=== PATIENT | female | born 1975 | race Caucasian/White ===

== ENCOUNTER 2023-03-05 20:23 | Emergency (ER) | payer MEDICARE, MEDICAID, SELFPAY ==
[2023-03-05 20:27] VITALS: BP 130/78; PULSE 96; RESP 18; TEMP 36.8; O2SAT 96
--- NOTE | 2023-03-05 20:43 | ED.LOWEXI1 ---
HPI - Extremity Injury (Lower) General Chief Complaint: Extremity Injury, Lower Stated Complaint: LOWER EXTREMITY Time Seen by Provider: 03/05/23 20:28 History of Present Illness HPI Narrative: the patient is coming with left foot pain that increased over the last one week, she does have a history of the fracture and surgery was done a few months ago, the patient noted there was some redness that developed over the last week as well she denies any fever or chills nausea or vomiting Review of systems otherwise negative Related Data Previous Rx's Medication Instructions Recorded meloxicam 15 mg tablet 15 mg PO DAILY PRN pain #10 tabs 03/05/23 sulfamethoxazole 800 1 tab PO DAILY 7 days #7 tabs 03/05/23 mg-trimethoprim 160 mg tablet (Bactrim DS) Allergies Allergy/AdvReac Type Severity Reaction Status Date / Time vancomycin Allergy Severe Verified 03/05/23 20:26 bacitracin Allergy Mild Verified 03/05/23 20:26 lamotrigine [From Lamictal] AdvReac Severe Verified 03/05/23 20:26 Review of Systems ROS Status of ROS 10 or more systems reviewed and unremarkable except as noted in history and below Exam Narrative Exam Narrative: Nurses notes and vital signs reviewed and patient is not hypoxic. General: Well-appearing and in no apparent distress. Skin: Warm, dry, no pallor noted. No rash. Head: Normocephalic, atraumatic. Neck: Supple, non-tender. Eye: Pupils are equal, round and EOMI. No scleral icterus. Ears, Nose, Mouth, and Throat: TM are clear, no nasal mucosal hypertrophy. Oral mucosa is moist, no posterior oropharynx erythema, uvula is mid-line Cardiovascular: Regular Rate and Rhythm without murmur, gallop or rub. Respiratory: No accessory muscle use or respiratory distress. Lungs are clear to auscultation, no wheezing, rales or rhonchi Chest Wall: no tenderness Back: No midline thoracic or lumbar vertebral tenderness. No CVA tenderness Musculoskeletal: normal ROM, no calf or popliteal tenderness, there is edema and swelling of the left foot compared to the right and the swelling is moderate there is redness of the scar of the previous surgery that is linear to the 1st metatarsal There was no drainage or any fluctuation and the patient had no open wounds and normal capillary refill with no vascular injury GI: Abdomen is soft, non-distended. Normal bowel sounds. No masses appreciated. No tenderness to palpation. No rebound, guarding, or rigidity noted. Neurological: A&O x4. No cranial nerve dysfunction observed. No truncal ataxia. Moves all extremities. Sensation intact. Psychiatric: Cooperative and interactive. Normal mood and affect. MDM - Extremity Injury (Lower) MDM Narrative Medical decision making narrative: was noted that the patient initially was upset and yelling because she didn't want to come to the Emergency Room in our facility The patient had CBC that showed no significant leukocytosis and a chemistry was within normal with no elevated ESR CT of the lower extremity was done to rule out any abscess or infection as showing possible cellulitis with no fluid collection at the foot level The patient was started on Bactrim in addition to Mobic for pain . Opiate intake OARRS was reviewed Patient referred to podiatry The patient is to followup with primary care physician in next 2-3 days or to return to the emergency department should any of the signs or symptoms worsen or new symptoms develop. The patient agrees with the following Diagnosis and Treatment plan and the patient will be discharged home. Discharge Plan Discharge Chief Complaint: Extremity Injury, Lower Clinical Impression: Cellulitis of foot Patient Disposition: Home, Self-Care Time of Disposition Decision: 22:37 Condition: Good Mode of Transportation: Private Vehicle Prescriptions / Home Meds: New sulfamethoxazole-trimethoprim [Bactrim DS] 800-160 mg tablet 1 tab PO DAILY 7 Days Qty: 7 0RF meloxicam 15 mg tablet 15 mg PO DAILY PRN (Reason: pain ) Qty: 10 0RF Instructions: Cellulitis (ED) Stand Alone Forms: Portal Instructions Referrals: BRAYAN GUERRA [Primary Care Provider] - 1 week Follow Up Appointments: Dr [facility] Podiatry Discharge Date/Time: 03/05/23 23:42
--- NOTE | 2023-03-05 20:49 | PC.NURSE ---
patient began to get agitated and aggressive stating if Dr. burrell was here she was going to leave. SHe begant to raise her voice about a previous dx that dr. burrell gave her after a chest xray. I stated we request you follow up with your physician after ER visits she then began to yell about if Dr. carbajal is here then she is leaving. I explained to patient neither of those physicians are here, We need to get information on your ankle and fall. Patient Stated this is just a [facility] hospital, just admit it I said [place] dont have a lot of specialist. PAtient began yelling i dont know why they brought me here . I told patient i am just here to help her, lets refocus on your injury. Patient began yelling that she wasnt going to be treated this way and requested my name. Gave patient my name and told her I was not here to be screamed at. I walked out of thee room and let the other staff know that someone else needed to triage the patient. Patient could be heard screaming in the cherry I CAN HERE YOU CARLI, GIVE ME A PHONE, IM LEAVING!! physician then went in to see patient.
--- NOTE | 2023-03-05 21:10 | CT_ITS ---
The [place] [id number] Patient Name: NATHANIEL MARCIAL MRN: [id number] date: 1975 Sex: F Assigned Patient Location: ED.MAIN Current Patient Location: ED.MAIN Accession/Order Number: [id number] Exam Date: 03/05/2023 21:25 Report Date: 03/05/2023 22:25 At the request of: ADDISON BRYANT Procedure: CT foot LT wo con EXAM: CT foot LT wo con HISTORY: swelling abscess COMPARISON: 02/22/2023 TECHNIQUE: Axial sections were obtained followed by sagittal and coronal reconstructions. FINDINGS: Again, there are findings associated with previous ORIF of distal tibia and distal fibular fractures. 2 screws traverse the medial malleolus fracture. Medullary bone is seen across the fracture line, with anterior cortex discontinuity remaining visible. A lateral plate and multiple screws stabilize the distal fibula fracture. Again, medullary bone crosses the fracture with partial discontinuity cortex anteriorly. There also is a healing posterior tibial malleolus fracture. Medullary bone crosses the medial aspect of the fracture, with discontinuity remaining visible laterally. Ankle mortise relationships are intact. There is diffuse osteopenia of bones of the ankle and foot. Soft tissue swelling is seen about the ankle and dorsum of the foot. No delineated fluid collection is identified. IMPRESSION: Healing, almost healed trimalleolar fracture, status post ORIF of the medial malleolus and distal fibula components. Soft tissue swelling about the ankle and dorsum of the foot compatible with cellulitis. No defined abscess is appreciated. Electronically authenticated by: Brice BAEZA Date: 03/05/2023 22:25
[2023-03-05] MEDS: KETOROLAC TROMETHAMINE 30 MG/ML VIAL 15 MG IVP (21:35)
[2023-03-05 21:56] LABS: Basophils Absolute Auto 0.1 10^3/uL (0.0-0.1); Basophils Percent Auto 0.6 % (0.2-2.0); Eosinophils Absolute Auto 0.2 10^3/uL (0.0-0.7); Hemoglobin 15.3 g/dL (12.0-16.0); Immature Granulocytes Abs Auto 0.04 10^3/uL (0.00-0.03); Immature Granulocytes Pct Auto 0.3 % (0.0-0.5); Lymphocytes Absolute Auto 3.8 10^3/uL (1.2-3.8); Lymphocytes Percent Auto 33.3 % (20.5-60.0); Mean Corpuscular HGB Conc 34.8 g/dL (29.9-35.2); Mean Corpuscular Hemoglobin 38.5 pg (26.7-34.0); Mean Corpuscular Volume 110.8 fL (81.0-99.0); Mean Platelet Volume 8.3 fL (9.5-13.5); Monocytes Absolute Auto 0.9 10^3/uL (0.3-0.8); Monocytes Percent Auto 7.9 % (1.7-12.0); Neutrophils Absolute Auto 6.4 10^3/uL (1.4-6.5); Neutrophils Percent Auto 55.9 % (43.0-75.0); Platelet Count 352 10^3/uL (150-450); Red Blood Count 3.97 10^6/uL (4.20-5.40); Red Cell Distribution Width 15.3 % (11.0-15.0); White Blood Count 11.5 10^3/uL (4.0-11.0)
[2023-03-05 22:01] LABS: Erythrocyte Sedimentation Rate 16 mm/hr (<=20)
--- NOTE | 2023-03-05 22:06 | PC.NURSE ---
Pt presents to ER for left ankle pain via EMS with an IV established in the left arm This is not a new injury Pt has had a broken ankle with surgery and hardware present Tonight pt fell off of her scooter and is fearful that she rebroke the ankle Upon arrival pt being triaged by other nurse, pt began yelling at nurse, nurse exited the room Dr. Ledbetter made herself present to the room and spoke with pt, unaware at that time what pt wanted treatment perez This nurse entered room to assist pt with using a bedpan After having a long conversation with the pt, this nurse was able to pinpoint what we needed to do for the pt Pt's left foot/ankle is very swollen, there appears to be an abrasion type rash on the top part of the foot Pt states this is not new Pt states she feels everyone is misdiagnosing her This nurse explained the care plan to the pt, pt agreed calm and cooperative Pt later needed to use the restroom again, a bedside commode was brought in and the pt was able to transfer to and from the bedside Pt denies further needs at this time
[2023-03-05 22:07] LABS: Alanine Aminotransferase 22 U/L (14-59); Albumin Globulin Ratio 0.8; Albumin Level 3.8 g/dL (3.4-5.0); Alkaline Phosphatase 144 U/L (46-116); Anion Gap 11.4; Aspartate Amino Transferase 25 U/L (15-37); BUN Creatinine Ratio 9.6; Bilirubin Total 0.4 mg/dL (0.2-1.0); Carbon Dioxide 27.9 mmol/L (21.0-32.0); Chloride 101 mmol/L (98-107); Estimated GFR (African America >60 (>=60); Estimated GFR (Non-African Ame >60 (>=60); Globulin 4.5 g/dL; Glucose 102 mg/dL (74-106); Potassium 4.3 mmol/L (3.5-5.1); Sodium 136 mmol/L (136-145); Total Protein 8.3 g/dL (6.4-8.2)
[2023-03-05 22:21] LABS: C Reactive Protein <0.2 mg/dL (<=1.0)
[2023-03-05] MEDS: SULFAMETHOXAZOLE/TRIMETHOPRIM 800-160 MG TABLET 1 TAB PO (23:22)
== END 2023-03-05 23:42 | disposition home or self-care (01) ==
PROVIDERS: Emergency Provider Emergency Medicine; PCP Student in an Organized Health Care Education/Training Program
DX: L03.116 Cellulitis of left lower limb (principal)
CPT/HCPCS: 36415; 73700; 80053; 85025; 85652; 86140; 96374; 99284

== ENCOUNTER 2023-05-02 18:05 | Outpatient (OUT) | payer MEDICARE, MEDICAID, SELFPAY ==
--- NOTE | 2023-05-02 | XR_ITS ---
The [address] [address] Patient Name: NATHANIEL MARCIAL MRN: [id number] date: 1975 Sex: F Assigned Patient Location: [facility] Current Patient Location: [facility] Accession/Order Number: [id number] Exam Date: 05/02/2023 18:30 Report Date: 05/02/2023 19:01 At the request of: BRAYAN GUERRA Procedure: XR foot LT min 3V EXAM: XR foot LT min 3V HISTORY: left foot pain, M79.672 history of trauma COMPARISON: None. TECHNIQUE: 3 views FINDINGS: Osteopenia generally is noted. Previous plate and screw fixation of a distal fibula fracture. Previous fixation of a medial malleolus fracture with 2 screws. Bones of the foot are intact. There is a mild hallux valgus deformity. Joint spaces are satisfactorily maintained. Forefoot soft tissue swelling is noted. XR/XR foot LT min 3V IMPRESSION: Previous ORIF of distal tibia and fibular fractures. No evidence for acute fracture or dislocation of the foot. Electronically authenticated by: Brice BAEZA Date: 05/02/2023 19:01
== END 2023-05-02 18:06 | disposition home or self-care (01) ==
PROVIDERS: PCP Student in an Organized Health Care Education/Training Program; Visit Provider Student in an Organized Health Care Education/Training Program
DX: M79.672 Pain in left foot (principal); S99.922A Unspecified injury of left foot, initial encounter; Z96.7 Presence of other bone and tendon implants; Z98.890 Other specified postprocedural states; X58.XXXA Exposure to other specified factors, initial encounter; Z87.81 Personal history of (healed) traumatic fracture
CPT/HCPCS: 73630

== ENCOUNTER 2023-05-05 12:58 | Outpatient (OUT) | payer MEDICARE, MEDICAID, SELFPAY ==
--- NOTE | 2023-05-05 13:54 | CA_ITS ---
Patient: NATHANIEL MARCIAL Exam Date: 05/05/2023 : 1975 Gender:F Ordering : BETH GUEVARA Admission #: [id number] Family : DR. BRAYAN GUERRA M.D. Order #: [id number] CLICK HERE TO VIEW EXAM ECHOCARDIOGRAM REPORT PROCEDURE: CA ECHO DOPPLER COMPLETE INDICATIONS: Chest pain, dyspnea on exertion COMPARISON: None. DESCRIPTION: COMPLETE ECHOCARDIOGRAM Real-time transthoracic echocardiography with 2D, M-mode, spectral and color flow Doppler performed. QUALITY: Technical quality was good. LEFT VENTRICLE: Normal chamber size. Normal left ventricular wall thickness. Systolic function is normal. LV EF: Normal left ventricular ejection fraction, (>55%). DIASTOLIC: Normal diastolic function. ATRIAL SEPTUM: Visually appears intact. LEFT ATRIUM: Normal chamber size. RIGHT ATRIUM: Normal chamber size. RIGHT VENTRICLE: Normal chamber size. Normal right ventricular systolic function. TRICUSPID VALVE: Normal mobility and thickness. No stenosis with mild regurgitation. Doppler studies reveal moderately (45-60) elevated right sided pressures. RVSP 55 mmHg MITRAL VALVE: Normal mobility and thickness. No evidence of mitral valve stenosis. There is no mitral annular calcification. No mitral regurgitation. AORTIC VALVE: Normal trileaflet appearance. No visible sclerosis. Normal leaflet mobility. No evidence of aortic valve stenosis. No aortic regurgitation. AORTIC ROOT: Normal diameter and appearance. PULMONIC VALVE: Normal thickness and mobility. No stenosis. No regurgitation. PERICARDIUM: No evidence of pericardial effusion. IVC: IVC is dilated (2.3 cm) with no collapse. PLEURA: CONCLUSION: 1. Normal ventricular systolic function. LVEF is 55 to 60%. 2. Mild tricuspid regurgitation. 3. Moderately elevated right-sided pressures. RVSP is 55 mmHg. Adult Echocardiography Procedure Report Left Ventricle LVEDD (3.7 - 5.6 cm): 4.23 cm LVESD (2.2 - 4.0 cm): 2.50 cm LVIVS thickness (0.6 - 1.2 cm): 0.82 cm LVPW thickness (0.5 - 1.0 cm): 0.81 cm e': 0.11 m/s E - e': 8.03 LVOT Max Gradient: 2.35 mm[Hg] LVOT Area (cm2): 0.77 m/s Peak Velocity (LVOT): 0.77 m/s Mean Velocity (LVOT): 0.54 m/s LVOT Diameter 1.95 cm Left Atrium LA Volume Index (2D A2C): 35.32 ml/m2 Left Atrium Systolic Dimension: 3.11 cm Mitral Valve MV E to A Ratio: 1.26 Mitral Valve A-Wave Peak Velocity: 0.72 m/s Mitral Valve E-Wave Peak Velocity: 0.91 m/s Right Ventricle Aorta AO Root Diam: 2.89 cm Ascending Ao Diam: 2.28 cm Aortic Valve AoV Area (Peak Ryan): 2.02 cm2, 2.02 cm2 Peak Velocity(Antegrade Flow): 1.14 m/s Peak Gradient(Antegrade Flow): 5.18 mm[Hg] Tricuspid Valve Peak Velocity (Regurgitant Flow): 3.18 m/s Pulmonic Valve Peak Velocity: 1.03 m/s Peak Gradient: 3.59 mm[Hg], 4.94 mm[Hg] Right Atrium Right Atrium Systolic Pressure: 47.28 ml, 47.28 ml Dictated by: Ranjit Rose M.D. on 05/05/2023 at 18:35 Approved by: Ranjit Rose M.D. on 05/05/2023 at 18:38
== END 2023-05-05 12:59 | disposition home or self-care (01) ==
LOC: CARD 12:58
PROVIDERS: PCP Student in an Organized Health Care Education/Training Program; Visit Provider Internal Medicine Cardiovascular Disease
DX: R07.9 Chest pain, unspecified (principal); R06.09 Other forms of dyspnea; I07.1 Rheumatic tricuspid insufficiency
CPT/HCPCS: 93306

== ENCOUNTER 2023-05-17 14:46 | Outpatient (OUT) | payer MEDICARE, MEDICAID, SELFPAY ==
--- NOTE | 2023-05-17 | XR_ITS ---
The [address] [address] Patient Name: NATHANIEL MARCIAL MRN: [id number] date: 1975 Sex: F Assigned Patient Location: [facility] Current Patient Location: [facility] Accession/Order Number: [id number] Exam Date: 05/17/2023 15:30 Report Date: 05/17/2023 15:41 At the request of: FRANCIS YOUNG Procedure: XR ankle LT min 3V PROCEDURE: XR ankle LT min 3V DATE: 05/17/2023 2:30 PM CDT COMPARISONS: Comparison is made to left foot CT includes the ankle done on 03/05/2023 CLINICAL INDICATION: IMAGINF FOR PODIATRY FINDINGS: There is prominent bone demineralization.. There is fixation plate lateral distal fibula, fixed by screws. There is also an oblique screw of the distal fibula. There are 2 oblique screws of the medial malleolus. There is some old deformity consistent with old fractures. No evidence of acute fractures. There are the ankle mortise is intact. XR/XR ankle LT min 3V IMPRESSION: Left ankle radiographs show no evidence of acute abnormalities. Bone demineralization Nearly completely healed trimalleolar fracture Status post open reduction internal fixation of the ankle, stable Soft tissue swelling noted about the ankle similar to previous CT. Electronically authenticated by: CHECO HERRERA Date: 05/17/2023 15:41
== END 2023-05-17 14:47 | disposition home or self-care (01) ==
LOC: RAD 14:49
PROVIDERS: PCP Student in an Organized Health Care Education/Training Program; Visit Provider Podiatrist Foot & Ankle Surgery
DX: S82.852S Displaced trimalleolar fracture of left lower leg, sequela (principal)
CPT/HCPCS: 73610

== ENCOUNTER 2023-05-24 12:49 | Outpatient (RCR) | payer MEDICARE, MEDICAID, SELFPAY | END 2023-06-28 16:17 | disposition home or self-care (01) | LOC: PT 12:49 | PROVIDERS: PCP Student in an Organized Health Care Education/Training Program; Visit Provider Podiatrist Foot & Ankle Surgery | DX: S82.852S Displaced trimalleolar fracture of left lower leg, sequela (principal); R26.89 Other abnormalities of gait and mobility; R26.9 Unspecified abnormalities of gait and mobility; R53.1 Weakness | CPT/HCPCS: 97110; 97116; 97161; 97530 ==

== ENCOUNTER 2023-05-25 08:22 | Outpatient (OUT) | payer MEDICARE, MEDICAID, SELFPAY ==
--- NOTE | 2023-05-25 | PCN_ITS ---
CARDIAC STRESS TEST Requesting Physician:? Dr. Medina Procedure Date:? 05/25/2023 PERFORMING PHYSICIAN:? Rudy Yaets M.D. INDICATION:? Chest pain, dyspnea on exertion. STRESS TEST PROTOCOL:? Lexiscan myocardial perfusion imaging. Resting heart rate:? 88 Max heart rate:? 100 Resting blood pressure:? 134/86 Maximal blood pressure:? 134/86 CONCLUSIONS:? 1.? No definite ECG changes post Lexiscan infusion meeting the criteria for ischemia. 2.? Please refer to separately interpreted and reported nuclear myocardial perfusion imaging for perfusion report. 3.? Clinical correlation recommended. MTDD
--- NOTE | 2023-05-25 07:50 | NM_ITS ---
Patient: NATHANIEL MARCIAL Exam Date: 05/25/2023 : 1975 Gender:F Ordering : BETH GUEVARA Admission #: [id number] Family : DR. Ej SchultzPClaude Order #: [id number] CLICK HERE TO VIEW EXAM RADIOLOGY REPORT PROCEDURE: NM JULIO C PERF SPECT REST STR COMPARISON: None. INDICATIONS: CHEST PAIN, DYSPNEA ON EXERTION TECHNIQUE: Exam Description: Stress/Rest one day protocol gated SPECT Rest Imagin.3 mCi Tc-99m Cardiolite IV on 05/25/2023 Stress Imaging 30.9 mCi Tc-99m Cardiolite IV on 05/25/2023 Exercise Protocol: 0.4 mg Lexiscan given IV Heart Rate (bpm): Rest: 88 Max: 100 PMHR: 58 Blood Pressure: Rest: 134/86 Max: 134/86 Symptoms: Rest and peak stress ECG findings were normal and the exercise portion of the study was normal per attending physician Dr. Guevara . For more details please see separate cardiac stress test report. FINDINGS: QUALITY OF STUDY: Good. PERFUSION DEFECT: None. LOCATION: N/A SIZE: N/A. SEVERITY: N/A. TYPE: N/A. WALL MOTION: Normal. LV SIZE: Normal. 75 mL. TID / TCD: None; 1.0 LVEF: Normal. Calculated EF 75%. SUMMARY: Myocardial perfusion imaging study is NORMAL. CONCLUSION: 1. No reversible ischemia 2. Normal exercise test Dictated by: Lucius Domingo MD on 05/26/2023 at 13:47 Approved by: Lucius Domingo MD on 05/26/2023 at 14:07
[2023-05-25] MEDS: REGADENOSON 0.4 MG/5 ML SYRINGE IV (09:47)
== END 2023-05-25 08:23 | disposition home or self-care (01) ==
LOC: NM 08:22
PROVIDERS: PCP Student in an Organized Health Care Education/Training Program; Visit Provider Internal Medicine Cardiovascular Disease
DX: R07.9 Chest pain, unspecified (principal); R06.09 Other forms of dyspnea
CPT/HCPCS: 78452; 93017; A9500; J2785

== ENCOUNTER 2023-06-07 09:51 | Outpatient (OUT) | payer MEDICARE, MEDICAID, SELFPAY ==
--- NOTE | 2023-06-07 | XR_ITS ---
The [address] [address] Patient Name: NATHANIEL MARCIAL MRN: [id number] date: 1975 Sex: F Assigned Patient Location: [facility] Current Patient Location: [facility] Accession/Order Number: [id number] Exam Date: 06/07/2023 10:15 Report Date: 06/07/2023 10:55 At the request of: FRANCIS YOUNG Procedure: XR foot LT min 3V PROCEDURE: XR ankle LT min 3V, XR foot LT min 3V HISTORY: LEFT ANKLE AND FOOT PAIN COMPARISON: XR left ankle 05/17/2023 FINDINGS: BONES:Prior mechanical repair of medial lateral malleolus without evidence of hardware fracture loosening. Healing of prior fractures. Moderate osteopenia throughout the foot and ankle. SOFT TISSUES:Mild soft tissue swelling surrounding the ankle. EFFUSION:None visible. OTHER: Negative. XR/XR foot LT min 3V IMPRESSION: 1. Stable surgical changes without is of hardware failure or change in alignment. 2. No acute bone abnormality or significant degenerative joint disease. 3. Moderate osteopenia throughout the foot and ankle; greater than expected. Electronically authenticated by: WILIAN CONTRERAS Date: 06/07/2023 10:55
--- NOTE | 2023-06-07 | XR_ITS ---
The [address] [address] Patient Name: NATHANIEL MARCIAL MRN: [id number] date: 1975 Sex: F Assigned Patient Location: [facility] Current Patient Location: [facility] Accession/Order Number: [id number] Exam Date: 06/07/2023 10:15 Report Date: 06/07/2023 10:55 At the request of: FRANCIS YOUNG Procedure: XR ankle LT min 3V PROCEDURE: XR ankle LT min 3V, XR foot LT min 3V HISTORY: LEFT ANKLE AND FOOT PAIN COMPARISON: XR left ankle 05/17/2023 FINDINGS: BONES:Prior mechanical repair of medial lateral malleolus without evidence of hardware fracture loosening. Healing of prior fractures. Moderate osteopenia throughout the foot and ankle. SOFT TISSUES:Mild soft tissue swelling surrounding the ankle. EFFUSION:None visible. OTHER: Negative. XR/XR ankle LT min 3V IMPRESSION: 1. Stable surgical changes without is of hardware failure or change in alignment. 2. No acute bone abnormality or significant degenerative joint disease. 3. Moderate osteopenia throughout the foot and ankle; greater than expected. Electronically authenticated by: WILIAN CONTRERAS Date: 06/07/2023 10:55
== END 2023-06-07 09:52 | disposition home or self-care (01) ==
LOC: RAD 09:52
PROVIDERS: PCP Student in an Organized Health Care Education/Training Program; Visit Provider Podiatrist Foot & Ankle Surgery
DX: S82.852A Displaced trimalleolar fracture of left lower leg, initial encounter for closed fracture (principal); M79.672 Pain in left foot
CPT/HCPCS: 73610; 73630

== ENCOUNTER 2023-07-19 13:01 | Outpatient (OUT) | payer MEDICARE, MEDICAID, SELFPAY ==
--- NOTE | 2023-07-19 | XR_ITS ---
The [address] [address] Patient Name: NATHANIEL MARCIAL MRN: [id number] date: 1975 Sex: F Assigned Patient Location: [facility] Current Patient Location: Accession/Order Number: [id number] Exam Date: 07/19/2023 13:25 Report Date: 07/20/2023 14:54 At the request of: FRANCIS YOUNG Procedure: XR ankle LT min 3V PROCEDURE: XR ankle LT min 3V HISTORY: LEFT ANKLE PAIN COMPARISON: XR ankle left 06/07/2023 FINDINGS: BONES:Prior mechanical repair of medial lateral malleolus without evidence of hardware fracture loosening. No bone fracture dislocation. No significant joint space narrowing. Osteopenia, likely from decreased use. SOFT TISSUES:Mild soft tissue swelling. EFFUSION:None visible. OTHER: Negative. XR/XR ankle LT min 3V IMPRESSION: 1. Stable surgical changes without evidence of hardware failure or change in alignment. Electronically authenticated by: WILIAN CONTRERAS Date: 07/20/2023 14:54
== END 2023-07-19 13:02 | disposition home or self-care (01) ==
LOC: RAD 13:01
PROVIDERS: PCP Student in an Organized Health Care Education/Training Program; Visit Provider Podiatrist Foot & Ankle Surgery
DX: S82.852S Displaced trimalleolar fracture of left lower leg, sequela (principal); Z96.9 Presence of functional implant, unspecified
CPT/HCPCS: 73610

== ENCOUNTER 2023-07-24 14:35 | Outpatient (OUT) | payer MEDICARE, MEDICAID, SELFPAY ==
--- NOTE | 2023-07-24 14:42 | CT_ITS ---
The [address] [address] Patient Name: NATHANIEL MARCIAL MRN: [id number] date: 1975 Sex: F Assigned Patient Location: CT Current Patient Location: CT Accession/Order Number: [id number] Exam Date: 07/24/2023 14:48 Report Date: 07/24/2023 16:46 At the request of: FRANCIS YOUNG Procedure: CT ankle LT wo con CT scan left ankle 07/24/2023. HISTORY: The patient reportedly suffered a fracture of the left ankle in October 2022. Evaluate for fracture healing. COMPARISON: CT scan left foot and ankle 03/05/2023 and radiographs left ankle 07/19/2023. TECHNIQUE: Multiple contiguous axial CT images of the left ankle were obtained without contrast. Sagittal and coronal reformatted images were made. Dose reduction techniques were achieved by using automated exposure control and/or adjustment of mA and/or kV according to patient size and/or use of iterative reconstruction technique. FINDINGS: The bones again appear osteoporotic. There is a moderate-sized enthesophyte again seen at the insertion of the Achilles tendon on the calcaneus. A moderate-sized os trigonum is again seen. There are mild degenerative changes again seen of the dorsal aspect of the talonavicular joint. There are postsurgical changes again seen from prior open reduction internal fixation of fractures of the distal fibula and the medial malleolus. This hardware appears grossly intact. There appears to have been complete interval healing of the fractures of the distal fibula and the medial malleolus since the prior CT scan. There has also been complete interval healing of a nondisplaced intra-articular fracture of the posterior malleolus since the prior CT scan. No new fracture or dislocation is seen. There is a small amount of soft tissue swelling along the medial aspect of the ankle. CT/CT ankle LT wo con IMPRESSION: 1. There appear to be healed, nondisplaced trimalleolar fracture deformities without evidence of hardware complication. No new fracture or dislocation is seen. 2. There again appears to be probable osteoporosis. Electronically authenticated by: JAMILA MCCLAIN Date: 07/24/2023 16:46
== END 2023-07-24 14:36 | disposition home or self-care (01) ==
LOC: CT 14:35
PROVIDERS: PCP Student in an Organized Health Care Education/Training Program; Visit Provider Podiatrist Foot & Ankle Surgery
DX: S82.855D Nondisplaced trimalleolar fracture of left lower leg, subsequent encounter for closed fracture with routine healing (principal)
CPT/HCPCS: 73700

== ENCOUNTER 2023-09-12 13:36 | Outpatient (OUT) | payer MEDICARE, MEDICAID, SELFPAY ==
--- NOTE | 2023-09-12 | XR_ITS ---
The [address] [address] Patient Name: NATHANIEL MARCIAL MRN: [id number] date: 1975 Sex: F Assigned Patient Location: [facility] Current Patient Location: Accession/Order Number: [id number] Exam Date: 09/12/2023 14:00 Report Date: 09/13/2023 08:21 At the request of: JT FRAIRE Procedure: XR foot LT min 3V PROCEDURE: XR foot LT min 3V DATE: 09/12/2023 1:00 PM CLINICAL TRIAL DATA MANAGER COMPARISONS: 06/07/2023 CLINICAL INDICATION: LEFT FOOT 2ND TOE PAIN FINDINGS: There is marked bone demineralization which limits visualization of the osseous structures. This decrease bone demineralization is a stable finding. There is postop changes of the ankle, stable. There is mild first metatarsal phalangeal and first interphalangeal degenerative change. There is no definite acute fractures identified on these images with special attention paid to the second toe. Osseous structures remain in good alignment. XR/XR foot LT min 3V IMPRESSION: 1. No definite fractures 2. Prominent bone demineralization could limits the visualization of occult fractures 3. Osseous structures remain in good alignment and stable alignment. Electronically authenticated by: CHECO HERRERA Date: 09/13/2023 08:21
== END 2023-09-12 13:37 | disposition home or self-care (01) ==
LOC: RAD 13:36
PROVIDERS: PCP Student in an Organized Health Care Education/Training Program; Visit Provider Physician Assistant
DX: M79.672 Pain in left foot (principal)
CPT/HCPCS: 73630

== ENCOUNTER 2023-10-04 13:48 | Outpatient (OUT) | payer MEDICARE, MEDICAID, SELFPAY ==
--- NOTE | 2023-10-04 | XR_ITS ---
The [address] [address] Patient Name: NATHANIEL MARCIAL MRN: [id number] date: 1975 Sex: F Assigned Patient Location: [facility] Current Patient Location: [facility] Accession/Order Number: [id number] Exam Date: 10/04/2023 14:05 Report Date: 10/04/2023 17:35 At the request of: FRANCIS YOUNG Procedure: XR ankle LT min 3V EXAM: XR ankle LT min 3V HISTORY: LEFT ANKLE PAIN COMPARISON: 07/19/2023 TECHNIQUE: 3 views of the left ankle were obtained. FINDINGS: Again seen is evidence of prior fracture and surgical repair involving the distal fibula and tibia. Hardware are in place. There appears to be complete osseous healing and no fracture lines are identified. The mortise is intact. Small osteophytes arise from the posterior calcaneus. Diffuse osteopenia is noted. Significant soft tissue swelling medially is noted. XR/XR ankle LT min 3V IMPRESSION: No acute fracture or dislocation. There is evidence of remote fracture with surgical repair of the distal fibula and tibia. Diffuse osteopenia is noted. Osteophytes arise from the posterior calcaneus and prominent soft tissue swelling medially is noted. Electronically authenticated by: FRANCIS CANELA Date: 10/04/2023 17:35
--- NOTE | 2023-10-04 | XR_ITS ---
The [address] [address] Patient Name: NATHANIEL MARCIAL MRN: [id number] date: 1975 Sex: F Assigned Patient Location: [facility] Current Patient Location: [facility] Accession/Order Number: [id number] Exam Date: 10/04/2023 14:03 Report Date: 10/04/2023 17:37 At the request of: FRANCIS YOUNG Procedure: XR foot LT min 3V EXAM: XR foot LT min 3V HISTORY: LEFT FOOT PAIN COMPARISON: 06/07/2023 TECHNIQUE: 3 views of the left foot were obtained. FINDINGS: There is no apparent acute fracture or dislocation at the foot. A mild bunion deformity is noted at the first metatarsophalangeal joint. Remainder the joint spaces are relatively intact. Diffuse osteopenia is noted. Remote postsurgical changes are seen at the ankle. XR/XR foot LT min 3V IMPRESSION: No apparent acute fracture or dislocation. Diffuse osteopenia is noted. The overall appearance has not changed significantly since 09/12/2023. Electronically authenticated by: FRANCIS CANELA Date: 10/04/2023 17:37
--- OUTSIDE RECORDS SUMMARY | 2023-10-04 13:52 | XMS_ITS | CCD ---
Author Name Unknown Address [address] [place] [address] Organization [facility] Care Team Providers Care Ec Teacher Name Role Phone PHYSICIAN, DEFAULT Unavailable Unavailable PHYSICIAN, DEFAULT Unavailable Unavailable Gracy Medina Primary Care Physician Gale Vasquez Unavailable Gracy Medina MD Primary Care Provider Sadiq Wilson Unavailable PROVIDER, UNKNOWN Attending Unavailable PROVIDER, UNKNOWN Admitting Unavailable CAROL, HIEN Primary Care Unavailable BERNARDA CORTES Attending Unavailable BERNARDA CORTES Consulting Unavailable SEBASTIAN, BERNARDA Admitting Unavailable HELENA ANDERSEN Consulting Unavailable HAY ., DR FREY Admitting Unavailable HAY ., DR FREY Attending Unavailable HAY ., DR FREY Consulting Unavailable CAROL, HIEN Primary Care Unavailable PAY ., DR JAY Admitting Unavailable PAY ., DR JAY Attending Unavailable PAY ., DR JAY Consulting Unavailable CAROL, HIEN Primary Care Unavailable KRISTINE .FLORENCIA Consulting Unavailable SEBASTIAN, BERNARDA Admitting Unavailable SEBASTIAN, BERNARDA Attending Unavailable CAROL, HIEN Primary Care Unavailable LEON ., DR AGUS Katz Attending Unavailable CAROLYN ., DR AGUS Katz Admitting Unavailable CAROL, HIEN Primary Care Unavailable GALE VASQUEZ JR Admitting Unavailable GALE VASQUEZ JR Attending Unavailable GALE VASQUEZ JR Consulting Unavailable CAROL, HIEN Primary Care Unavailable CAROL, HIEN Admitting Unavailable CAROL, HIEN Attending Unavailable CAROL, BLACKSTONE Primary Care Unavailable Gracy Medina MD Primary Care Provider Gracy Medina MD Unavailable CAROL, GARCY Primary Care Unavailable SHARITA MYERS T Attending Unavailable CAROL, GRACY Primary Care Unavailable RICPEDRITO SHARITA T Referring Unavailable BETH GUEVARA Attending Unavailable GUS, LEIGHTON Attending Unavailable GUS, LEIGHTON Attending Unavailable CAROL, GRACY Referring Unavailable VERÓNICA DUARTE Attending Unavailable CAROL, GRACY Primary Care Unavailable SELF Referring Unavailable AURELIANO VANN Attending Unavailable CAROL, GRACY Primary Care Unavailable CAROL, GRACY Primary Care Unavailable SELF Referring Unavailable CAROL, GRACY Primary Care Unavailable RONAN CABELLO Attending Unava ilable DAVID LEON Attending Unavailable Romaine, DO Nate Cotton Admitting Unavailable Brown, DO Nate Cotton Attending Unavailable Eren Ramires Attending Unavailable Brown, DO Nate A Admitting Unavailable Brown, DO Nate Cotton Attending Unavailable Brown, Nate A Referring Unavailable Carol, Gracy M Attending Unavailable Carol, Gracy M Admitting Unavailable LEON, KRISTI Alejo Admitting Unavailable LEON, KRISTI Alejo Attending Unavailable Carol, Gracy Primary Care Unavailable BullimoreYaneter E Attending Unavailable Bullimore, Elzbieta E Admitting Unavailable Jaspreet Cortez Attending Unavailab Jaspreet Lim Admitting Unavailab le Carol, Gracy Primary Care Unavailable Allergies Allergy Classification Reported Allergen(s) Allergy Type Date of Onset Reaction(s) Facility (20 sources) Bacitracin; Translations: [bacitracin] Drug Allergy 4 Unknown [facility] (20 sources) Vancomycin; Translations: [vancomycin] Drug Allergy 4 Unknown [facility] (8 sources) Tape 1 Drug allergy rash [facility] Comment on above: can use paper tape (9 sources) lamoTRIgine; Translations: [LAMOTRIGINE] Drug Allergy 2 Mental Status Change [facility] (1 source) Bacitracin Drug Allergy 3 [facility] (1 source) lamoTRIgine Drug Allergy [facility] (1 source) Vancomycin Drug Allergy [facility] (1 source) Adhesive Tape; Translations: [Tape] Propensity to adverse reactions (disorder) [facility] Repository (1 source) Bacitracin Drug Allergy 3 [facility] Repository (1 source) lamoTRIgine Drug Allergy 3 [facility] Repository (1 source) Vancomycin Drug Allergy [address] [place] [address] Repository Medications Current Medications Medication Drug Class(es) Dates Sig (Normalized) Sig (Original) acetaminophen 325 mg / HYDROcodone bitartrate 5 mg oral tablet (3 sources) Opioid Agonist Start: 01-01-2022 Starks 325 mg-5 mg oral tablet 1 tab(s), Oral, q6hr for pain, 12 tab(s), Refill(s) 0 Start Date: 01/01/22 Status: Ordered acetaminophen 325 mg / oxyCODONE hydrochloride 5 mg oral tablet (5 sources) Opioid Agonist Start: 11-12-2022 Percocet 5 mg-325 mg oral tablet See Instructions, 40 tab(s), Refill(s) 0, 1-2 tab(s) Oral q4hr, [facility]/pharmacy #[id number], 149.9, cm, 11/12/22 6:57:00 EST, Height/Length Dosing, 65.4, kg, 11/12/22 6:57:00 EST, Weight Dosing Start Date: 11/12/22 Status: Ordered Albuterol Sulfate (2.5 MG/ 3 ML) 2.5 MG/3ML 0.083% Nebulization Solution (2 sources) Albuterol Sulfat e (2.5 MG/ 3 ML) 2.5 MG/3ML 0.083% Nebulization Solution 3ml Inhalation 4 times a day Active ALPRAZolam 0.5 mg oral tablet (10 sources) Benzodiazepine Start: 11-12-2022 take 1 tablet by mouth three times daily as needed for anxiety Xanax 0.5 mg Tab 0.5 mg = 1 tab(s), Oral, TID, PRN for anxiety, prn, Refills(s) 0 Start Date: 11/12/22 Status: Ordered ALPRAZolam Activ e Comment on above: Take 0.5 mg by mouth . aspirin 81 mg delayed release oral tablet (1 source) Platelet Aggregation Inhibitor, Nonsteroidal Anti-inflammatory Drug Start: 11-12-2022 End: 12-12-2022 take 2 tablets by mouth once daily aspirin 81 mg Oral EC Tab 162 mg = 2 tab(s), Oral, Daily, X 30 day(s), # 60 tab(s), Refills(s) 0, Pharmacy: [facility]/pharmacy #[id number], 149.9, cm, 11/12/22 6:57:00 EST, Height/Length Dosing, 65.4, kg, 11/12/22 6:57:00 EST, Weight Dosing Start Date: 11/12/22 Stop Date: 12/12/22 Status: Ordered Symbicort (8 sources) Corticosteroid, beta2-Adrenergic Agonist Start: 11-12-2022 Symbicort Inhalation, BID, Refill(s) 0 Start Date: 11/12/22 Status: Ordered Start: 11-01-2022 take 2 puff(s) by [facility] twice daily budesonide-formoterol (SYMBICORT) 160-4.5 mcg/actuation inhaler INHALE 2 PUFFS BY MOUTH TWICE A DAY *RINSE MOUTH AFTER USE* 0 11/01/2022 Active Comment on above: INHALE 2 PUFFS BY [facility] TWICE A DAY *RINSE MOUTH AFTER USE* Cetirizine (2 sources) Histamine-1 Receptor Antagonist Cetirizine HCl Active docusate sodium 100 mg oral capsule (14 sources) Start: 04-19-20 21 take 1 capsule by mouth twice daily as needed for constipation Colace 100 mg Cap 100 mg = 1 cap(s), Oral, BID, PRN for constipation, # 20 cap(s), Refills(s) 0, Pharmacy: [facility]/pharmacy #[id number], 149.9, cm, 11/12/22 6:57:00 EST, Height/Length Dosing, 65.4, kg, 11/12/22 6:57:00 EST, Weight Dosing Start Date: 11/12/22 Status: Ordered Comment on above: Take [address] [facility] twice daily. dronabinol 5 mg oral capsule (2 sources) Cannabinoid Start: 01-28-20 take 1 capsule by mouth every twelve hours Dronabinol 5 MG 1 CAPSULE Orally bid for 30 day(s) January, Active ibuprofen 600 mg oral tablet (5 sources) Nonsteroidal Anti-inflammatory Drug Start: 11-12-19 take 1 tablet by mouth every eight hours as needed for pain ibuprofen 600 mg Tab 600 mg = 1 tab(s), Oral, q8hr, PRN as needed for pain, with food or milk, # 50 tab(s), Refills(s) 0, Pharmacy: [facility]/pharmacy #[id number], 149.9, cm, 11/12/22 6:57:00 EST, Height/Length Dosing, 65.4, kg, 11/12/22 6:57:00 EST, Weight Dosing Start Date: 11/12/22 Status: Ordered Lactulose (8 sources) Osmotic Laxative Start: 11-11-19 lactulose 10 g/15 mL Oral Syrup 20 gm/30 mL 10 gram = 15 mL, Oral, BID, Take with 8 ounces of water, # 240 mL, Refills(s) 0 Start Date: 11/11/12 Status: Ordered Start: 11-11-2012 lactulose 10 g /15 mL Oral Syrup 20 gm/30 mL 10 gram = 15 mL, Oral, BID, Take with 8 ounces of water, # 240 mL, Refills(s) 0, 0, Print Requisition Start Date: 11/11/12 Status: Ordered Start: 11-11-2012 lactulose 10 g /15 mL Oral Syrup 20 gm/30 mL 10 gram = 15 mL, Oral, BID, Take with 8 ounces of water, # 240 mL, Refills(s) 0, 0, Print Requisition Start Date: 11/11/12 Status: Ordered methocarbamol 500 mg oral tablet (3 sources) Muscle Relaxant Start: 01-01-2022 End: 01-04-2022 take 1 tablet by mouth three times daily Robaxin 500 mg Tab 500 mg = 1 tab(s), Oral, TID, X 3 day(s), # 12 tab(s), Refills(s) 0 Start Date: 01/01/22 Stop Date: 01/04/22 Status: Ordered Methocarbamol 75 0 MG Oral for 20 Days Active 24 hr metoprolol succinate 50 mg extended release oral tablet (16 sources) beta-Adrenergic Zeeshan Start: 11-12-2022 take 1 tablet by mouth at bedtime metoprolol 50 mg ER Tab 50 mg = 1 tab(s), Oral, Bedtime, Refills(s) 0 Start Date: 11/12/22 Status: Ordered Start: 07-14-2022 take 1 tablet by [facility] once daily metoprolol succinate ER (TOPROL XL) 50 mg 24 hr tablet TAKE 1 TABLET BY MOUTH EVERY DAY FOR 90 DAYS 0 07/14/2022 Active Metoprolol Succi shavonne ER 25 MG Oral for 30 Days Active Comment on above: TAKE 1 TABLET BY [facility] EVERY DAY FOR 90 DAYS metroNIDAZOLE 500 mg oral tablet (2 sources) Nitroimidazole Antimicrobial Start: 022 take 1 tablet by mouth every eight hours metroNIDAZOLE 500 MG 1 tablet Orally Three times a day for 10 day(s) Apr, Active Milk of Magnesia 8% oral suspension (7 sources) Start: 013 take 2.4 g by mouth twice daily as needed for constipation Milk of Magnesia 8% oral suspension 2.4 gram = 30 mL, Oral, BID, PRN for constipation, Take with 8 ounces of water, # 360 mL, Refills(s) 0 Start Date: 11/11/12 Status: Ordered Start: 11-11-2012 take 2.4 g by mouth twice daily as needed for constipation Milk of Magnesia 8% oral suspension 2.4 gram = 30 mL, Oral, BID, PRN PRN for constipation, Take with 8 ounces of water, # 360 mL, Refills(s) 0, 0, Print Requisition Start Date: 11/11/12 Status: Ordered omeprazole 40 mg delayed release oral capsule (16 sources) Proton Pump Inhibitor Start: 11-11-2012 take 1 capsule by mouth once daily Prilosec 40 mg Cap-EC = 1 cap(s), Oral, Daily, # 30 cap(s), Refills(s) 0 Start Date: 11/11/12 Status: Ordered take 40 mg by mouth once daily O MEPRAZOLE (PRILOSEC ORAL) Take 40 mg by mouth once daily. 0 Active Comment on above: Take 40 mg by mouth once daily. pantoprazole 20 mg delayed release oral tablet (7 sources) Proton Pump Inhibitor Start: 11-12-2022 take 1 tablet by mouth once daily Protonix 20 mg Tab-DR 20 mg = 1 tab(s), Oral, Daily, Refills(s) 0 Start Date: 11/12/22 Status: Ordered Start: 09-08-2016 take 1 tablet by [facility] every twenty-four hours Pantoprazole Sodium 40 mg 1 tablet Orally Once a day for 30 days Aug, Active predniSONE 50 mg oral tablet (1 source) Start: 01-01-2022 End: 01-08-2022 take 1 tablet by mouth once daily predniSONE 50 mg Tab 50 mg = 1 tab(s), Oral, Daily, X 7 day(s), # 5 tab(s), Refills(s) 0 Start Date: 01/01/22 Stop Date: 01/08/22 Status: Ordered Prilosec 40 mg Cap-EC (1 source) Start: 11-11-2012 take 1 capsule by mouth once daily Prilosec 40 mg Cap-EC = 1 cap(s), Oral, Daily, # 30 cap(s), Refills(s) 0 Start Date: 11/11/12 Status: Ordered ProAir HFA 90 mcg/inh inhalation aerosol (6 sources) Start: 11-11-2012 take 2 puff(s) by inhalation four times daily ProAir HFA 90 mcg/inh inhalation aerosol 2 puff(s), Inhalation, QID Wheezing, Refill(s) 0 Start Date: 11/11/12 Status: Ordered Start: 11-11-2012 take 2 puff(s) by in halation four times daily as needed for wheezing ProAir HFA 90 mcg/inh inhalation aerosol 2 puff(s), Inhalation, QID PRN Wheezing, Refill(s) 0 Start Date: 11/11/12 Status: Ordered Seroquel (16 sources) Atypical Antipsychotic Start: 11-12-2022 take 75 mg by mouth at bedtime Seroquel 75 mg, Oral, Bedtime, Refills(s) 0 Start Date: 11/12/22 Status: Ordered Start: 04-19-2021 take 1 tablet by [facility] twice daily QUEtiapine (SEROQUEL) 300 mg tablet Take 1 tablet by mouth twice daily at 6AM and 9PM. 0 04/19/2021 Active take 1 tablet by [facility] every twenty-four hours SEROquel 100 MG 1 tablet at bedtime Orally Once a day Active Comment on above: Take 1 tablet by [facility] twice daily at 6AM and 9PM. Completed/Discontinued Medications Medication Drug Class(es) Dates Sig (Normalized) Sig (Original) acetaminophen 500 mg oral tablet (9 sources) Start: 04-19-2021 take 2 tablets by mouth every six hours acetaminophen (TYLENOL) 500 mg tablet Take 2 tablets by mouth every 6 hours. 0 04/19/2021 Active Comment on above: Take [address] [facility] every 6 hours. albuterol 0.83 mg/ml inhalation solution (12 sources) beta2-Adrenergic Agonist Start: 11-11-2012 take 3 mL by inhalation every four hours as needed albuterol 0.083% Inh Teresita 3 mL 0.083% - 3mL dosing units, Inhalation, q4hr PRN Wheezing, Refill(s) 0 Start Date: 11/11/12 Status: Ordered Start: 11-11-2012 take 2 puff(s) by in halation four times daily as needed for wheezing ProAir HFA 90 mcg/inh inhalation aerosol 2 puff(s), Inhalation, QID PRN Wheezing, Refill(s) 0 Start Date: 11/11/12 Status: Ordered Start: 11-11-2012 take 3 mL by inhalat ion every four hours albuterol 0.083% Inh Teresita 3 mL 0.083% - 3mL dosing units, Inhalation, q4hr Wheezing, Refill(s) 0 Start Date: 11/11/12 Status: Ordered Ventolin HFA Act anil benztropine mesylate 1 mg oral tablet (9 sources) Anticholinergic, Antihistamine Start: 04-19-2021 take 1 tablet by mouth twice daily benztropine (COGENTIN) 1 mg tablet Take 1 tablet by mouth twice daily. 0 04/19/2021 Active Comment on above: Take 1 tablet by [facility] twice daily. busPIRone hydrochloride 5 mg oral tablet (9 sources) busPIRone (BUSPAR) 5 mg tablet Take 30 mg by mouth twice daily. 0 Active Comment on above: Take 30 mg by mouth twice daily. dicyclomine hydrochloride 20 mg oral tablet (20 sources) Anticholinergic Start: 11-11-2012 dicyclomine (BENTYL) 20 mg tablet Take 20 mg by mouth. 0 11/11/2012 Active Start: 11-11-2012 take 1 tablet by [facility] four times daily as needed for pain Bentyl 20 mg Tab 20 mg = 1 tab(s), Oral, QID, PRN As needed for pain or spasm, # 12 tab(s), Refills(s) 0 Start Date: 11/11/12 Status: Ordered Comment on above: Take 20 mg by mouth. gabapentin 100 mg oral capsule (9 sources) Anti-epileptic Agent take 1 capsule by mouth three times daily gabapentin (NEURONTIN) 100 mg capsule Take 100 mg by mouth three times daily. 0 Active Comment on above: Take 100 mg by mouth three times daily. 10 ml lidocaine hydrochloride 10 mg/ml injection (1 source) Antiarrhythmic, Amide Local Anesthetic Start: 3 End: lidocaine (PF) 10 mg/mL (1 %) 4 mL injection (XYLOCAINE) Start: 03-30-2023 End: 03-30-2023 lidocaine (PF) 10 mg/mL (1 % ) 4 mL injection (XYLOCAINE) linaclotide 0.145 mg oral capsule (9 sources) Guanylate Cyclase-C Agonist Start: 09-15-2020 LINZESS 145 mcg capsule TAKE 1 CAPSULE DAILY AT LEAST 30 MINUTES BEFORE THE FIRST MEAL OF THE DAY ON AN EMPTY STOMACH 0 09/15/2020 Active Comment on above: TAKE 1 CAPSULE DAILY AT LEAST 30 MINUTES BEFORE THE FIRST MEAL OF THE DAY ON AN EMPTY STOMACH magnesium hydroxide 80 mg/ml oral suspension (10 sources) Start: 11-11-2012 take 30 mL by mouth twice daily magnesium hydroxide (MOM) 400 mg/5 mL suspension Take 30 mL by mouth twice daily. 0 04/19/2021 Active Comment on above: Take 30 mL by mouth twice daily. OXcarbazepine 600 mg oral tablet (9 sources) Anti-epileptic Agent take 1 tablet by mouth twice daily OXcarbazepine (TRILEPTAL) 600 mg tablet Take 600 mg by mouth twice daily. 0 Active Comment on above: Take 600 mg by mouth twice daily. plecanatide 3 mg oral tablet (9 sources) plecanatide (TRULANCE) 3 mg tab Take by mouth. 0 Active Comment on above: Take by mouth. 1 ml triamcinolone acetonide 40 mg/ml injection (1 source) Corticosteroid Start: 03-30-2023 End: 03-30-2023 triamcinolone acetonide 40 mg injection (KeNALog 40) Start: 03-30-2023 End: 03-30-2023 triamcinolone acetonide 40 m g injection (KeNALog 40) varenicline 1 mg oral tablet (9 sources) Partial Cholinergic Nicotinic Agonist take 1 tablet by mouth twice daily varenicline (CHANTIX) 1 mg tablet Take 1 mg by mouth twice daily. 0 Active Comment on above: Take 1 mg by mouth t wice daily. Problems Active Problems Problem Classification Problem Date Documented Date Episodic/Chronic Allergic reactions (2 sources) Environmental allergy; Translations: [Other allergy status, other than to drugs and biological substances] Episodic Anxiety disorders (12 sources) Posttraumatic stress disorder; Translations: [Mixed anxiety and depressive disorder] 05-14-2019 Chronic Asthma (9 sources) Asthma; Translations: [Unspecified asthma, uncomplicated] Onset: 3 11-11-2012 Chronic Bacterial infection; unspecified site (8 sources) Staphylococcal infectious disease 05-14-2019 Episodic Cardiac dysrhythmias (2 sources) Supraventricular tachycardia; Translations: [Supraventricular tachycardia] Onset: 2 Chronic Endometriosis (8 sources) Endometriosis (clinical) 12-06-2013 Chronic Esophageal disorders (14 sources) Gastroesophageal reflux disease; Translations: [Peptic stricture of esophagus] 11-11-2012 Chronic Fracture of lower limb (3 sources) Closed trimalleolar fracture; Translations: [Displaced trimalleolar fracture of left lower leg, initial encounter for closed fracture] Onset: 3 Episodic Fracture of upper limb (1 source) Closed fracture of shaft of humerus; Translations: [Unspecified fracture of shaft of humerus, left arm, initial encounter for closed fracture] Onset: 2 Episodic Headache; including migraine (2 sources) Chronic post-traumatic headache; Translations: [Chronic post-traumatic headache, not intractable] Chronic Intestinal infection (2 sources) Clostridial enteric disease; Translations: [Enterocolitis due to Clostridium difficile, not specified as recurrent] Episodic Mood disorders (10 sources) Bipolar I disorder; Translations: [Major depression, single episode] 05-14-2019 Chronic Nausea and vomiting (2 sources) Nausea; Translations: [Nausea] Episodic Nonspecific chest pain (2 sources) Chest pain, unspecified; Translations: [Chest pain, unspecified] Onset: 3 Episodic Osteoporosis (1 source) Osteoporosis; Translations: [Age-related osteoporosis without current pathological fracture] Chronic Other acquired deformities (8 sources) Scoliosis deformity of spine 05-14-2019 Chronic Other bone disease and musculoskeletal deformities (5 sources) Aseptic necrosis of head of humerus; 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] Onset: 3 Chronic Other bone disease and musculoskeletal deformities (1 source) Idiopathic aseptic necrosis of right humerus; 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)] Onset: 3 Chronic Other connective tissue disease (1 source) Pain in right lower limb; Translations: [Pain in right leg] Onset: 2 Episodic Other connective tissue disease (1 source) Partial thickness rotator cuff tear; Translations: [Incomplete rotator cuff tear or rupture of right shoulder, not specified as traumatic] Episodic Other connective tissue disease (1 source) Biceps tendinitis; Translations: [Bicipital tendinitis, right shoulder] Episodic Other disorders of stomach and duodenum (2 sources) Gastroparesis syndrome; Translations: [Gastroparesis] Episodic Other gastrointestinal disorders (2 sources) Irritable bowel syndrome characterized by constipation; Translations: [Irritable bowel syndrome with constipation] Chronic Other gastrointestinal disorders (2 sources) Irritable bowel syndrome with diarrhea; Translations: [Irritable bowel syndrome with diarrhea] Chronic Other gastrointestinal disorders (1 source) Irritable bowel syndrome with diarrhea Onset: 2 Resolved: 2 Chronic Other gastrointestinal disorders (2 sources) Constipation; Translations: [Constipation, unspecified] Episodic Other gastrointestinal disorders (2 sources) Heartburn; Translations: [Heartburn] Episodic Other gastrointestinal disorders (2 sources) Diarrhea; Translations: [Diarrhea, unspecified] Episodic Other gastrointestinal disorders (2 sources) Dysphagia; Translations: [Dysphagia, unspecified] Episodic Other gastrointestinal disorders (2 sources) Esophageal dysphagia; Translations: [Dysphagia, pharyngoesophageal phase] Episodic Other lower respiratory disease (2 sources) Other forms of dyspnea; Translations: [Other forms of dyspnea] Onset: 2 Episodic Other nervous system disorders (1 source) Allodynia; Translations: [Other disturbances of skin sensation] Episodic Other nutritional; endocrine; and metabolic disorders (2 sources) Loss of appetite; Translations: [Anorexia] Episodic Peripheral and visceral atherosclerosis (1 source) Peripheral vascular disease, unspecified; Translations: [Peripheral vascular disease, unspecified] Chronic Residual codes; unclassified (2 sources) Uterus absent; 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 Unclassified (1 source) Pain in right shoulder; Translations: [Pain in right shoulder] Onset: 3 Past or Other Problems Problem Classification Problem Date Documented Da te Episodic/Chronic Abdominal hernia (11 sources) Incisional hernia; Translations: [Incisional hernia without obstruction or gangrene] Onset: 07-08-2021 Episodic Abdominal pain (20 sources) Upper abdominal pain; Translations: [Upper abdominal pain, unspecified] Onset: 04-16-2021 Resolved: 05-04-2022 Episodic Cardiac dysrhythmias (2 sources) Palpitations; Translations: [Palpitations] Onset: 08-03-2022 Episodic E Codes: Natural/environment (1 source) Exposure to other specified factors, initial encounter; Translations: [EXPOSURE OTHER SPEC FACTORS INITIAL] Onset: 03-22-2022 Episodic Immunizations and screening for infectious disease (1 source) Encounter for immunization; Translations: [ENCOUNTER FOR IMMUNIZATION] Onset: 08-04-2022 Episodic Open wounds of extremities (4 sources) Laceration without foreign body of right thumb without damage to nail, initial encounter; Translations: [LAC NO FB RT THUMB NO DMG NAIL INIT] Onset: 08-02-2022 Episodic Other aftercare (1 source) 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; Translations: [OTH VIDEO GAME ENGINEER CURRENT DRUG THERAPY] Onset: 11-17-2022 Episodic Other aftercare (4 sources) Encounter for change or removal of surgical wound dressing; Translations: [ENC CHG/REMOVAL SURG WOUND DRSG] Onset: 11-15-2022 Episodic Other connective tissue disease (4 sources) Pain in leg, unspecified; Translations: [PAIN IN LEG UNSPECIFIED] Onset: 04-18-2022 Episodic Other gastrointestinal disorders (2 sources) Diarrhea, unspecified; Translations: [DIARRHEA UNSPECIFIED] Onset: 05-04-2022 Resolved: 05-04-2022 Episodic Other gastrointestinal disorders (2 sources) Abdominal distension (gaseous); Translations: [ABDOMINAL DISTENSION GASEOUS] Onset: 05-04-2022 Resolved: 05-04-2022 Episodic Residual codes; unclassified (9 sources) Postoperative state; Translations: [Other specified postprocedural states] Onset: 04-19-2021 04-19-2021 Episodic Skin and subcutaneous tissue infections (9 sources) Cellulitis; Translations: [Cellulitis, unspecified] Onset: 11-13-2015 11-13-2015 Episodic Sprains and strains (2 sources) Sprain of foot; Translations: [Unspecified sprain of unspecified foot, initial encounter] Onset: 03-22-2022 Episodic Results Test Name Value Interpretation Reference Range Facility C. diff by PCRon 08-31-2023 Clostridium difficile by PCR Negative Normal Negative [facility] Comment on above: Result Comment: This test result should be correlated with clinical presentations and medical history by a healthcare provider to determine its clinical significance. Performed By: #### [id number] ####[facility] [id number] [place] [address] Consent for Treatmenton Consent for Treatment [id number] Normal [facility] Physician Orderon 08-30-2023 Physician Order [id number] [facility] Consent for Treatmenton Consent for Treatment [id number] #1.00CD:127 Normal [facility] Physician Orderon 05-31-2023 Physician Order [id number] #1.00CD:127 [facility] XR Foot 3+ Views Lefton XR Foot 3+ Views Left Exam Date/Time: 05/31/2023 16:31 EDT Reason for Exam: M79.672 Report IMPRESSION: NO ACUTE PROCESS IN THE BONY STRUCTURES OF THE LEFT FOOT. PROBABLE CELLULITIS IN THE DORSAL ASPECT OF THE DISTAL METATARSAL BONES. CLINICAL HISTORY: M79.672 COMPARISON: None available. FINDINGS: AP, lateral and oblique views of the left foot demonstrate no evidence of acute fracture or dislocation. Bony structures are markedly osteoporotic. There is a metallic plate along the lateral aspect of the distal fibula transfixed with multiple metallic screws. There are 2 metallic screws over the medial malleolus of the distal tibia. There are mild hammertoe deformities of the first through fifth toes. There is soft tissue swelling over the dorsal aspect of the distal metatarsal bones. Ordering Provider: Gracy Medina FINAL REPORT Dictated: 05/31/2023 4:51 pm Salty Ruggiero M.D. Signed (Electronic Signature): 05/31/2023 4:51 pm Signed by: Salty Ruggiero M.D. Transcribed by: CARISA Technologist: BILL Technical Comments Radiation Dose: Ka,r in mGy = na DAP = na Normal [facility] 05-11-2023 [facility] Telephone (ORMN) NATHANIEL MARCIAL ([id number]) 1975 F Date Time Provider Department 05/11/23 [facility]ITA [facility]ERS [facility] During your visit today, we recorded the following information about you: Marcie Chou RN 05/11/2023 12:57 PM Signed I spoke to patient to offer 05/18/23 right shoulder surgery date. Patient was tear full stating she cannot have surgery due to pain and swelling in her feet. Patient states she cannot bear weight. She said she had called Dr. Vann's office and did not get a return phone call. I did speak to their office and their nurse will be calling her back today. Allergies As of Date: 05/11/2023 Noted Allergy Reaction LAMICTAL (LAMOTRIGINE) 03/30/2023 1 - Mental Status Change BACITRACIN 07/06/2004 VANCOMYCIN 05/16/2004 Date Reviewed: 04/10/2023 Reviewed by: Mirella Monae LPN - Fully Assessed Reason for Visit: Patient Question [0912] Cmt: Offering patient surgical date. Prescriptions as of 05/11/2023 - ALPRAZolam (XANAX) 0.5 mg tablet Take 0.5 mg by mouth. - budesonide-formotero l (SYMBICORT) 160-4.5 mcg/actuation inhaler INHALE 2 PUFFS BY MOUTH TWICE A DAY *RINSE MOUTH AFTER USE* - metoprolol succinate ER (TOPROL XL) 50 mg 24 hr tablet TAKE 1 TABLET BY MOUTH EVERY DAY FOR 90 DAYS - docusate sodium (COLACE) 100 mg capsule Take 1 capsule by mouth twice daily. - benztropine (COGENTIN) 1 mg tablet Take 1 tablet by mouth twice daily. - QUEtiapine (SEROQUEL) 300 mg tablet Take 1 tablet by mouth twice daily at 6AM and 9PM. - acetaminophen (TYLENOL) 500 mg tablet Take 2 tablets by mouth every 6 hours. - magnesium hydroxide (MOM) 400 mg/5 mL suspension Take 30 mL by mouth twice daily. - LINZESS 145 mcg capsule TAKE 1 CAPSULE DAILY AT LEAST 30 MINUTES BEFORE THE FIRST MEAL OF THE DAY ON AN EMPTY STOMACH - dicyclomine (BENTYL) 20 mg tablet Take 20 mg by mouth. - varenicline (CHANTIX) 1 mg tablet Take 1 mg by mouth twice daily. - plecanatide (TRULANCE) 3 mg tab Take by mouth. - gabapentin (NEURONTIN) 100 mg capsule Take 100 mg by mouth three times daily. - busPIRone (BUSPAR) 5 mg tablet Take 30 mg by mouth twice daily. - OXcarbazepine (TRILEPTAL) 600 mg tablet Take 600 mg by mouth twice daily. - OMEPRAZOLE (PRILOSEC ORAL) Take 40 mg by mouth once daily. Problem List As Of Date 05/11/2023 Noted Resolved Cellulitis [L03.90] 11/13/2015 Abdominal pain [R10.9] 04/16/2021 Nicotine use disorder, F17.2 [F17.200] 04/19/2021 Post-operative state [Z98.890] 04/19/2021 Incisional hernia, without obstruction or gangr*07/08/2021 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) *04/10/2023 Encounter Status:Closed by MARCIE [facility]OU [facility] NATHANIEL MARCIAL Nano ([id number]) 1975 F Date Time Provider Department 05/11/23 SHARITA MYERS [facility] During your visit today, we recorded the following information about you: Vinita Crabtree 05/11/2023 10:35 AM Signed Left VM and sent [employer] message to patient to see if she wants to schedule shoulder surgery with Dr. Myers on 05/18. Waiting for call back Allergies As of Date: 05/11/2023 Noted Allergy Reaction LAMICTAL (LAMOTRIGINE) 03/30/2023 1 - Mental Status Change BACITRACIN 07/06/2004 VANCOMYCIN 05/16/2004 Date Reviewed: 04/10/2023 Reviewed by: Mirella Monae LPN - Fully Assessed Reason for Visit: Schedule Surgery [1330] Prescriptions as of 05/11/2023 - ALPRAZolam (XANAX) 0.5 mg tablet Take 0.5 mg by mouth. - budesonide-formotero l (SYMBICORT) 160-4.5 mcg/actuation inhaler INHALE 2 PUFFS BY MOUTH TWICE A DAY *RINSE MOUTH AFTER USE* - metoprolol succinate ER (TOPROL XL) 50 mg 24 hr tablet TAKE 1 TABLET BY MOUTH EVERY DAY FOR 90 DAYS - docusate sodium (COLACE) 100 mg capsule Take 1 capsule by mouth twice daily. - benztropine (COGENTIN) 1 mg tablet Take 1 tablet by mouth twice daily. - QUEtiapine (SEROQUEL) 300 mg tablet Take 1 tablet by mouth twice daily at 6AM and 9PM. - acetaminophen (TYLENOL) 500 mg tablet Take 2 tablets by mouth every 6 hours. - magnesium hydroxide (MOM) 400 mg/5 mL suspension Take 30 mL by mouth twice daily. - LINZESS 145 mcg capsule TAKE 1 CAPSULE DAILY AT LEAST 30 MINUTES BEFORE THE FIRST MEAL OF THE DAY ON AN EMPTY STOMACH - dicyclomine (BENTYL) 20 mg tablet Take 20 mg by mouth. - varenicline (CHANTIX) 1 mg tablet Take 1 mg by mouth twice daily. - plecanatide (TRULANCE) 3 mg tab Take by mouth. - gabapentin (NEURONTIN) 100 mg capsule Take 100 mg by mouth three times daily. - busPIRone (BUSPAR) 5 mg tablet Take 30 mg by mouth twice daily. - OXcarbazepine (TRILEPTAL) 600 mg tablet Take 600 mg by mouth twice daily. - OMEPRAZOLE (PRILOSEC ORAL) Take 40 mg by mouth once daily. Problem List As Of Date 05/11/2023 Noted Resolved Cellulitis [L03.90] 11/13/2015 Abdominal pain [R10.9] 04/16/2021 Nicotine use disorder, F17.2 [F17.200] 04/19/2021 Post-operative state [Z98.890] 04/19/2021 Incisional hernia, without obstruction or gangr*07/08/2021 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) *04/10/2023 Encounter Status:Closed by VINITA CRABTREE on 05/11/23 Normal [facility] Office Visiton 04-14-2023 Follow-up visit [id number] Nathaniel Marcial 1975 F Date Provider Department Center 04/14/2023 3848-BETH GUEVARA EVERETTE Love Family History Problem Relation Age of Onset Heart failure Mother Heart failure Father Transient ischemic attack Father Family Status - Relation Status Age at Mother Father Level of Service:21903 OR OFFICE/OUTPATIENT ESTABLISHED MOD MDM 30-39 MIN Normal [facility] Sara 04-11-2023 KRISTIN Telephone (PODITW) MARCIALNATHANIEL Carrillo ([id number]) 1975 F Date Time Provider Department 04/11/23 AURELIANO VANN During your visit today, we recorded the following information about you: Abi Montague 04/11/2023 12:06 PM Signed Patient states that [employer] is unable to send out bone stimulator due to incorrect verbiage in order. Please all Leigh Ann at [phone] to clarify Selina Villa 04/11/2023 1:21 PM Signed Patient called stating that she seen Dr. Myers and he stated that ankle needs to heal before shoulder surgery. He recommended Physical Therapy and patient is calling to get an order for Physical Therapy. Anne Mcnair Ma 04/11/2023 1:41 PM Signed JACK on VM to return call. Holli Gutierrez Ma 04/11/2023 4:04 PM Signed Leigh Ann from [employer] returning call from provider office. Please advise. Aureliano Vann DPM 04/12/2023 8:24 AM Signed Addendum made. Please re-submit office notes to NELDA Singh Noelle, MA 04/12/2023 11:00 AM Signed Faxed to [phone] per below note. Thank you, MARTIN Angel Deborah 04/12/2023 1:29 PM Signed Leigh Ann calling back---everything was sent for the wrong ankle. Please call Leigh Ann at [phone] Aureliano Vann DPM 04/12/2023 2:51 PM Signed Anne Rene Ma 04/12/2023 3:05 PM Signed Faxed. Peri Goetz 04/13/2023 12:20 PM Signed Pt called and stated info is still not right and she is asking to speak to someone. Rosa M Rivero 05/11/2023 12:[address] Myers office calling stating that patient is upset that office is not calling patient back regarding swelling in her feet. Patient upset that she is not hearing back from office. Meshaarnold Chou from Dr. Myers office said we can contact her at [phone] with any questions. Please contact patient or Mesha regarding this today. Anne Mcnair Ma 05/11/2023 2:16 PM Signed Called and spoke to patient. Informed her that we did not get any phone calls regarding pain and swelling in her foot. She let me know that she has re-injured her foot around 04/28 and went to a local hospital for treatment. States she slipped and fell and hit her LT foot in the great toe area. Since hitting that foot she has now become non-weight bearing again. Has had continued swelling and pain in the toe/bunion area on that LT foot. Is supposed to have surgery on her shoulder but has been delayed due to foot healing. Did state that she has her bone stimulator and has been using it for about 20 days or so. Would like to know what she is supposed to do at this point. Aureliano Vann DPM 05/12/2023 8:01 AM Signed Patient was informed that she is to be weight bearing in the CAM boot at her last office visit. Dr. Myers was informed of this WB status as well and she can proceed with surgery as tolerated. Continue bone stimulator. NELDA Eugene Noelle, MA 05/12/2023 11:07 AM Addendum I noticed that in Chelsie message she said that patient re-injured herself since her last office visit. She's now swollen and unable to walk on it. Are you sure you want her to WB or should she be seen, if so how soon? Please review and advise. Should patient send over pictures? Thank you, MARTIN Angel Nicole, DPM 05/12/2023 2:06 PM Signed Yes, patient would need to be evaluated in the office for a new injury for recommendation of treatment. Podiatry first available. NELDA Eugene Cecilia PAC 05/12/2023 3:41 PM Addendum 1st attempt - called patient, left message to call back and schedule per below Agnes Lloyd 05/17/2023 8:51 AM Signed Patient scheduled for Podiatry on 05/30 at [facility] Allergies As of Date: 04/11/2023 Noted Allergy Reaction LAMICTAL (LAMOTRIGINE) 03/30/2023 1 - Mental Status Change BACITRACIN 07/06/2004 VANCOMYCIN 05/16/2004 Date Reviewed: 04/10/2023 Reviewed by: Mirella Monae LPN - Fully Assessed Reason for Visit: Bone Stimulator Problem [Other] Orders [681] Prescriptions as of 05/17/2023 - ALPRAZolam (XANAX) 0.5 mg tablet Take 0.5 mg by mouth. - budesonide-formotero l (SYMBICORT) 160-4.5 mcg/actuation inhaler INHALE 2 PUFFS BY MOUTH TWICE A DAY *RINSE MOUTH AFTER USE* - metoprolol succinate ER (TOPROL XL) 50 mg 24 hr tablet TAKE 1 TABLET BY MOUTH EVERY DAY FOR 90 DAYS - docusate sodium (COLACE) 100 mg capsule Take 1 capsule by mouth twice daily. - benztropine (COGENTIN) 1 mg tablet Take 1 tablet by mouth twice daily. - QUEtiapine (SEROQUEL) 300 mg tablet Take 1 tablet by mouth twice daily at 6AM and 9PM. - acetaminophen (TYLENOL) 500 mg tablet Take 2 tablets by mouth every 6 hours. - magnesium hydroxide (MOM) 400 mg/5 mL suspension Take 30 mL by mouth twice daily. - LINZESS 145 mcg capsule TAKE 1 CAPSULE DAILY AT LEAST 30 M (more content not included)... Normal [facility] CNOVon 04-10-2023 CNOV Office Visit (EDNA) NATHANIEL MARCIAL ([id number]) 1975 F Date Time Provider Department 04/10/23 10:15 AM RICCHETTI, SHARITA T MORH During your visit today, we recorded the following information about you: Sharita Myers MD 04/10/2023 3:32 PM Signed SHOULDER INITIAL CONSULT SERVICE DATE: 04/10/2023 PCP: Gracy Medina MD REFERRING PROVIDER: No referring provider defined for this encounter. Consult requested for an opinion regarding the evaluation and treatment of the above. My final impression and recommendations will be communicated back to the requesting physician by way of the shared medical record or letter via US mail. CHIEF COMPLAINT: Right shoulder pain SUBJECTIVE HISTORY OF PRESENT ILLNESS: Nathaniel presents today for initial evaluation regarding right shoulder complaints. As you know she is a 47-year-old [id number] female with complaints in her shoulder that started earlier this year in November or December. She states that she underwent an open reduction and internal fixation of a left ankle fracture after a fall on November 12, 2022. She has had a slow recovery from from the surgery and states that her right shoulder began to bother her during the recovery. She denies a specific trauma or injury but has had to use the arm more for weightbearing. She notes difficulty with reach activities, lifting activities, overhead activities, and symptoms at night. Her symptoms have significantly worsened over time. She did undergo a cortisone injection a week and a half ago without any relief and she presents for further discussion on management. Nathaniel has recently been transition into weightbearing as tolerated on her left leg in a cam boot. She is still using a scooter at times to get around. Nathaniel is 1/2 pack/day cigarette smoker. She has also been diagnosed with osteoporosis and is on medication for this. PROGRESSIVE SYMPTOMS: Pain affecting living situation/ADL's Pain impacting sleep or causing fatigue Pain limiting ability to stay fit and healthy, sports or recreational activity Pain worsened by overhead activity/reaching PREVIOUS TREATMENT(S): Modified Activity Aspiration Right Shoulder NECK COMPLAINTS: None ACTIVE PROBLEM LIST Cellulitis Abdominal Pain Nicotine use disorder, F17.2 Post-Operative State Incisional Hernia, Without Obstruction Or Gangrene PAST MEDICAL HISTORY Diagnosis Date Anxiety GERD (gastroesophageal reflux disease) Hernia, incisional Hypertension PAST SURGICAL HISTORY Procedure Laterality Date SECTION HX HYSTERECTOMY HX No family history on file. Social History Tobacco Use Smoking status: Some Days Smokeless tobacco: Never ALLERGIES Allergen Reactions Lamictal [Lamotrigi* Mental Status Change Bacitracin Vancomycin MEDICATIONS: ALPRAZolam (XANAX) 0.5 mg tablet Take 0.5 mg by mouth. budesonide-formotero l (SYMBICORT) 160-4.5 mcg/actuation inhaler INHALE 2 PUFFS BY MOUTH TWICE A DAY *RINSE MOUTH AFTER USE* metoprolol succinate ER (TOPROL XL) 50 mg 24 hr tablet TAKE 1 TABLET BY MOUTH EVERY DAY FOR 90 DAYS docusate sodium (COLACE) 100 mg capsule Take 1 capsule by mouth twice daily. benztropine (COGENTIN) 1 mg tablet Take 1 tablet by mouth twice daily. QUEtiapine (SEROQUEL) 300 mg tablet Take 1 tablet by mouth twice daily at 6AM and 9PM. acetaminophen (TYLENOL) 500 mg tablet Take 2 tablets by mouth every 6 hours. magnesium hydroxide (MOM) 400 mg/5 mL suspension Take 30 mL by mouth twice daily. LINZESS 145 mcg capsule TAKE 1 CAPSULE DAILY AT LEAST 30 MINUTES BEFORE THE FIRST MEAL OF THE DAY ON AN EMPTY STOMACH dicyclomine (BENTYL) 20 mg tablet Take 20 mg by mouth. varenicline (CHANTIX) 1 mg tablet Take 1 mg by mouth twice daily. plecanatide (TRULANCE) 3 mg tab Take by mouth. gabapentin (NEURONTIN) 100 mg capsule Take 100 mg by mouth three times daily. busPIRone (BUSPAR) 5 mg tablet Take 30 mg by mouth twice daily. OXcarbazepine (TRILEPTAL) 600 mg tablet Take 600 mg by mouth twice daily. OMEPRAZOLE (PRILOSEC ORAL) Take 40 mg by mouth once daily. REVIEW OF SYMPTOMS: GENERAL: Negative HEENT: Negative CARDIOVASCULAR: Negative RESPIRATORY: Negative GASTROINTESTINAL: Negative GENITOURINARY: Negative NEUROLOGIC: Negative SKIN: Negative ENDOCRINE: Negative EYES: Negative PSYCHIATRIC: Negative HEMATOLOGIC/IMMUNOLO GIC: Negative MUSCULOSKELETAL: See HPI OBJECTIVE There were no vitals taken for this visit. PHYSICAL EXAMINATION: Physical examination today of the right shoulder shows no atrophy. Range of motion testing shows: Passive forward elevation is to 150 on the right, compared to 170 on the left. Active forward elevation is to 150 on the right, compared to 170 on the left. Passive external rotation at the side is to 40 on the right, compared to 60 on the left. Active internal rotation i (more content not included)... Normal [facility] XR SHLDR >/=3V AP/PIEDAD AP/OTH R RTon 04-10-2023 XR SHLDR >/=3V AP/PIEDAD AP/OTHR RT * * *Final Report* * * DATE OF EXAM: Apr 10 2023 12:24PM MYX 5253 - XR SHLDR >/=3V AP/PIEDAD AP/OTHR RT / PROCEDURE REASON: 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) * * * * Physician Interpretation * * * * EXAMINATION: XR SHLDR >/=3V AP/PIEDAD AP/OTHR RT HISTORY: Right shoulder pain 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) . TECHNIQUE: XR SHLDR >/=3V AP/PIEDAD AP/OTHR RT Laterality: RIGHT Number of different views (projections): 4 M: XB_1 COMPARISON: RESULT: Severe osteopenia with collapse of the humeral head and mild to moderate secondary degenerative changes. Maintained acromioclavicular joint. Partially seen thoracic spine fusion hardware. No acute fracture or dislocation. There are no bony erosions. IMPRESSION: Collapse of the humeral head as described. Electronic Technician: PSCB Transcribe Date/Time: Apr 13 2023 4:03P Dictated by : PAUL REED MD This examination was interpreted and the report reviewed and electronically signed by: PAUL REED MD on Apr 13 2023 4:04PM EST [id number] CN [facility] CT shoulder RT wo adelinaon 03-25 CT shoulder RT wo [facility] [place] [address] CT Scan Report Signed Patient: Nathaniel Marcial MR#: [id number] 51 : 1975 Acct:[id number] Age/Sex: 47 / F ADM Date: 04/07/23 Loc: ER Room: Type: [facility] ER Attending Dr: Copies to: LEE Coleman Ordering Provider: LEE Coleman Date of Service: 04/07/23 CT/CT shoulder RT wo con: r/o tear vs bony injury CT right shoulder without contrast TECHNIQUE: The CT exam was performed using one or more the following dose reduction techniques: Automated exposure control, adjustment of the MA and/or Kv according to patient size, or use of the iterative reconstruction technique. COMPARISON: MRI of the right shoulder 02/14/2023 HISTORY: Right shoulder pain and swelling. Cortisone injection . History of AVN of the right shoulder. History of right shoulder tendon tear. There is articular collapse involving the medial portion of the humeral head. Adequate bony alignment. No additional acute bony findings. No fluid collections. No hemorrhage. No hematoma. CT/CT shoulder RT wo con IMPRESSION: Redemonstration of avascular necrosis involving the medial portion of the humeral head with articular collapse. No visible soft tissue fluid collections. No obvious hematoma. Impression dictated by: Will May M.D.04/07/2023 1:18 PM Dictation Location: [place] [address] Transcribed By: [facility] 04/07/231317 Dictated By: Will May DO 04/07/231309 Signed By: 04/07/231317 [facility] CNOVon 03-30-2023 CNOV Office Visit (ORTHMN) NATHANIEL MARCIAL ([id number]) 1975 F Date Time Provider Department 03/30/23 10:40 AM VERÓNICA DUARTE During your visit today, we recorded the following information about you: Weight Height 59 kg 1.499 m Verónica Duarte PA-C 03/30/2023 12:43 PM Signed SERVICE DATE: March 30, 2023 PCP: Gracy Medina MD, MD Consult requested by Dr. Gracy Medina for an opinion regarding chief complaint as stated below. My final impression and recommendations will be communicated back to the requesting physician by way of the shared medical record or letter via US mail. Subjective Patient ID: Nathaniel is a 47 year old D female. She suffered a fall on 11/12/22 and injured left ankle where suffered an ankle fracture that required ORIF of her left ankle that day. She is currently in a walking boot. She has suffered 4 falls since the surgery. States that when she fell on 11/12/22 in her bedroom she states that she called 911 and the police and fire had to break open her door. They replaced the door with a new bolt but had to consistently use her right shoulder to open her door. She feels that the repetitive motion of her having to open the door with her right shoulder contributed to her pain and limited motion. She noticed pain and has had limited motion since this incident. She has been struggling with right shoulder pain for the past 4 months. She has limited range of motion. She rates the pain 8/10. She had seen Dr. Nate Gavin with [facility] in [place] and ordered a MRI of her shoulder from 02/14/23 which showed findings of the medial humeral head as detailed likely representing AVN or rapid destructive arthrosis secondary to a subchondral insufficiency fracture. Low grade instrasubstance tear of the distal superior fibers of subscapularis tendon. Mild biceps tendinosis. She is taking some Vicodin as needed for pain. Chief Complaint: Patient presents with: Right Shoulder - New, Pain, Swelling PAIN EVALUATION 03/30/2023 1054 Pain Level: 8 Pain Location: Shoulder-Right Description: Aching;Burning;Cramp ing;Dull;Itching;Rad iating;Sharp;Shootin g;Sore;Spasm; Stabbing;Stiffness;T hrobbing;Tightness Duration Amount of Time: -- 1.5 - 2 months Duration Units: Months Frequency: Continuous Intervention/Comfort measure: Medication;Repositio n;Cold;Heat HPI TREATMENTS PRIOR TO INITIAL CONSULT: Oral NSAIDS Review of Systems ACTIVE PROBLEM LIST Cellulitis Abdominal Pain Nicotine use disorder, F17.2 Post-Operative State Incisional Hernia, Without Obstruction Or Gangrene PAST MEDICAL HISTORY Diagnosis Date Anxiety GERD (gastroesophageal reflux disease) Hernia, incisional Hypertension PAST SURGICAL HISTORY Procedure Laterality Date SECTION HX HYSTERECTOMY HX No family history on file. Social History Tobacco Use Smoking status: Some Days Smokeless tobacco: Never ALLERGIES Allergen Reactions Lamictal [Lamotrigi* Mental Status Change Bacitracin Vancomycin MEDICATIONS: metoprolol succinate ER (TOPROL XL) 50 mg 24 hr tablet TAKE 1 TABLET BY MOUTH EVERY DAY FOR 90 DAYS docusate sodium (COLACE) 100 mg capsule Take 1 capsule by mouth twice daily. benztropine (COGENTIN) 1 mg tablet Take 1 tablet by mouth twice daily. QUEtiapine (SEROQUEL) 300 mg tablet Take 1 tablet by mouth twice daily at 6AM and 9PM. acetaminophen (TYLENOL) 500 mg tablet Take 2 tablets by mouth every 6 hours. magnesium hydroxide (MOM) 400 mg/5 mL suspension Take 30 mL by mouth twice daily. LINZESS 145 mcg capsule TAKE 1 CAPSULE DAILY AT LEAST 30 MINUTES BEFORE THE FIRST MEAL OF THE DAY ON AN EMPTY STOMACH dicyclomine (BENTYL) 20 mg tablet Take 20 mg by mouth. varenicline (CHANTIX) 1 mg tablet Take 1 mg by mouth twice daily. plecanatide (TRULANCE) 3 mg tab Take by mouth. gabapentin (NEURONTIN) 100 mg capsule Take 100 mg by mouth three times daily. busPIRone (BUSPAR) 5 mg tablet Take 30 mg by mouth twice daily. OXcarbazepine (TRILEPTAL) 600 mg tablet Take 600 mg by mouth twice daily. OMEPRAZOLE (PRILOSEC ORAL) Take 40 mg by mouth once daily. Allergies, medications, past surgical history, family history and past medical history were reviewed per this encounter. Objective Ortho Exam Examination of the right shoulder reveals the skin to be clean, dry and intact. There is no surrounding erythema or ecchymoses. There is tenderness palpation of the right bicipital groove. No particular tenderness over the right AC joint. Active forward flexion in the right shoulder is to 140 degrees. Passive forward flexion to 160 degrees. External rotation with the arm in neutral position 40 degrees. Internal rotation to lower lumbar levels. Rotator cuff exam is notable for 5/5 strength. Negative belly press test. Positive speeds test. Positive Chilton's test. Positive impingement signs (more content not included)... Normal [facility] CNOVon 03-27-2023 CNOV Office Visit (PODIMN) NATHANIEL MARCIAL ([id number]) 1975 F Date Time Provider Department 03/27/23 12:15 PM AURELIANO VANN During your visit today, we recorded the following information about you: Aureliano Vann DPM 04/18/2023 10:09 AM Addendum SERVICE DATE: March 27, 2023 PCP: Gracy Medina MD, MD Subjective Patient ID: Nathaniel is a 47 year old female. Chief Complaint: Patient presents with: Left Ankle - New, Pain, Fracture: Trimalleolar fracture 11/12 ORIF L rom Fall in February with repeat injury to left ankle, cellulitis at that time with admission to local hospital. PAIN EVALUATION 03/27/2023 1305 Pain Level: 5 Pain Location: Ankle-Left Description: Aching Duration Amount of Time: 1 Duration Units: Months Frequency: Intermittent HPI Review of Systems Constitutional: Negative. HENT: Negative. Respiratory: Negative. Cardiovascular: Negative. Gastrointestinal: Negative. Endocrine: Negative. Skin: Negative. Neurological: Negative. Hematological: Negative. Musculoskeletal: Negative. 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 Social History Tobacco Use Smoking status: Some Days Smokeless tobacco: Never ALLERGIES Allergen Reactions Lamictal [Lamotrigi* Mental Status Change Bacitracin Vancomycin MEDICATIONS: ALPRAZolam (XANAX) 0.5 mg tablet Take 0.5 mg by mouth. budesonide-formotero l (SYMBICORT) 160-4.5 mcg/actuation inhaler INHALE 2 PUFFS BY MOUTH TWICE A DAY *RINSE MOUTH AFTER USE* metoprolol succinate ER (TOPROL XL) 50 mg 24 hr tablet TAKE 1 TABLET BY MOUTH EVERY DAY FOR 90 DAYS docusate sodium (COLACE) 100 mg capsule Take 1 capsule by mouth twice daily. benztropine (COGENTIN) 1 mg tablet Take 1 tablet by mouth twice daily. QUEtiapine (SEROQUEL) 300 mg tablet Take 1 tablet by mouth twice daily at 6AM and 9PM. acetaminophen (TYLENOL) 500 mg tablet Take 2 tablets by mouth every 6 hours. magnesium hydroxide (MOM) 400 mg/5 mL suspension Take 30 mL by mouth twice daily. LINZESS 145 mcg capsule TAKE 1 CAPSULE DAILY AT LEAST 30 MINUTES BEFORE THE FIRST MEAL OF THE DAY ON AN EMPTY STOMACH dicyclomine (BENTYL) 20 mg tablet Take 20 mg by mouth. varenicline (CHANTIX) 1 mg tablet Take 1 mg by mouth twice daily. plecanatide (TRULANCE) 3 mg tab Take by mouth. gabapentin (NEURONTIN) 100 mg capsule Take 100 mg by mouth three times daily. busPIRone (BUSPAR) 5 mg tablet Take 30 mg by mouth twice daily. OXcarbazepine (TRILEPTAL) 600 mg tablet Take 600 mg by mouth twice daily. OMEPRAZOLE (PRILOSEC ORAL) Take 40 mg by mouth once daily. Allergies, medications, past surgical history, family history and past medical history were reviewed per this encounter. Physical Exam: There were no vitals taken for this visit. Patient is alert and oriented x 3 in NAD Patient's general mood is good. Eyes are without evidence of conjunctivitis or jaundice Respiration is normal and non-labored. Patient ambulated into the office treatment room. Vascular: Weakly Palpable Dorsalis Pedis and Posterior Tibial Pulses b/l +LLE edema but absence of erythema or other SOI Neurological: Intact light touch/epicritic sensation Dermatological: Skin appears well hydrated and supple. good color, texture, turgor. No open lesions present. No hyperkeratosis. Webspaces clean and dry 1-4 Nails 1-5 b/l appear normal. Musculoskeletal/Orth opaedic: Allodynia noted to the L ankle on exam, especially to the lateral fibula distally DF of the L ankle is weakness with equinus Radiographs: 03/27/23 L ankle: radiolucency remains at the medial malleolus transverse fracture site with 2mm of diastasis suggestive of non-union. Intact hardware without evidence of breakage. Decreased bone density appreciated to the left ankle. Satisfactory ORIF of left ankle tri-malleolar fracture. CT L ankle 03/05/23 from OSH: nonunion noted to the posterior malleolar fracture fracture without displacement noted with approximately 1.0mm of diastasis of the fracture fragments ASSESSMENT: 1. 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 Osteoporosis, unspecified osteoporosis type, unspecified pathological fracture presence - ICD9: 733.00, ICD10: M81.0 3. PAD (peripheral artery disease) (HCC) - ICD9: 443.9, ICD10: I73.9 4. Allodynia - ICD9: 782.0, ICD10: R20.8 5. Nicotine use disorder, F17.2 - ICD9: 305.1, ICD10: F17.200 Concern for CRPS Plan: - (more content not included)... Normal [facility] XR ANKLE 3V AP/LAT/OBL LTon 03-27-2023 XR ANKLE 3V AP/LAT/OBL LT * * *Final Report* * * DATE OF EXAM: Mar 27 2023 12:20PM AOX 5298 - XR ANKLE 3V AP/LAT/OBL LT / PROCEDURE REASON: Pain * * * * Physician Interpretation * * * * HISTORY (as given from clinical provider): Pain . Additional history provided by the performing technologist (if any): previous fractures and surgery TECHNIQUE: XR ANKLE 3V AP/LAT/OBL LT COMPARISON: None RESULT: Bimalleolar fracture fixation using screws medial malleolus and plate with screws and several leg screw in the lateral malleolus. Hardware is intact. Fracture alignment is anatomic. Fracture lucency in the medial malleolus is partially seen. Ankle joint space and alignment are preserved. There is severe diffuse osteopenia of the left ankle and foot likely related to disuse. Small posterior calcaneal spur. No other significant abnormality. ----- IMPRESSION: POSTOPERATIVE FINDINGS DESCRIBED SEVERE OSTEOPENIA OF THE LEFT ANKLE AND FOOT WHICH MAY RELATED TO DISUSE AND/OR HYPEREMIA. Electronic Technician: MAX Transcribe Date/Time: Mar 27 2023 12:44P Dictated by : KENDALL GUTIERREZ MD This examination was interpreted and the report reviewed and electronically signed by: KENDALL GUTIERREZ MD on Mar 27 2023 12:45PM EST [id number] CN Normal [facility] XR ANKLE GENERAL 3V AP/LAT/O BL LEFTon 03-27-2023 [facility] BD Bone Density DEXAon 02-06 BD Bone Density DEXA Exam Date/Time: 02/06/2023 09:34 EDT Reason for Exam: M85.89 Report IMPRESSION: The bone density may measurements indicate OSTEOPOROSIS. This places the patient at a significant increased risk for fracture. Recommend follow-up exam in one year, sooner as clinically necessary. CLINICAL HISTORY: bone density evaluation COMPARISON: NONE. FINDINGS: Bone density measurements for the Left femoral neck are BMD 0.607g/cm2 Tscore -3.1 Age-matched Z score -2.2, Osteoporosis Bone density measurements for the Right femoral neck are BMD 0.688g/cm2 Tscore -2.6 Age-matched Z score -1.7, Osteoporosis Bone density measurements for the Right radius are BMD 0.519g/cm2 Tscore -2.7 Age-matched Z score -2.7, Osteoporosis FRAX SCORE 10 year probability of fracture: Major osteoporotic, % Hip fracture, % FRAX circulation was not calculated due to inadequate number of measurable sites. Note World Health Organization definition of osteoporosis and osteopenia for women: Normal = T score at or above -1.0 SD Osteopenia = T score between -1.0 and -2.5 SD Osteoporosis = T score at or below -2.5 SD Ordering Provider: Nate Gavin FINAL REPORT Dictated: 02/06/2023 4:00 pm Royce Levine MD, V. Signed (Electronic Signature): 02/06/2023 4:00 pm Signed by: Royce Levine MD, V. Transcribed by: CARSIA Technologist: LYNNE [facility] Consent for Treatmenton 01-23 Consent for Treatment [id number] #1.00CD:127 [facility] ED Note-Physicianon 02-06-20 ED Note-Physician Basic Information Time Seen: Perry Osorio PA-C 01/31/2023 09:40 Chief Complaint patient c/o left foot pain and swelling after stepping on it wrong this AM w/o surgical boot on. foot surgically repaired in oct from previous fracture. still wearing boot and walking with assistance. History of Present Illness 47-year-old female comes to the ED for evaluation of left foot pain. The patient has a history of previous fracture with surgical fixation to the foot. She stepped awkwardly on the foot this morning using the bathroom and presents with pain over the dorsal aspect. She describes feeling a pop. No other complaints or concerns. No prior treatments. Review of Systems A 10 point review of systems is negative except as noted above. Medical and Surgical History: Reviewed and noted Social history: Lives at home Tobacco: Denies Physical Exam Vitals & Measurements T: 36.8 ?C(Oral) HR: 94(Peripheral) RR: 18 BP: 133/86 SpO2: 98% HT: 150 cm WT: 60 kg BMI: 26.67 Nurses notes and vital signs reviewed and patient is not hypoxic. General: The patient appears well, resting comfortably. Skin: Warm, dry. Head: Atraumatic. Neck: No JVD. Eye: Normal conjunctiva. Ears, Nose, Mouth, and Throat: Moist mucous membranes. Cardiovascular: Strong distal pulses. Chest wall: Respiratory: Respirations are nonlabored. Back: Normal range of motion. Musculoskeletal: Tenderness of the dorsal aspect of the left foot with some mild soft tissue swelling. There is no ecchymosis or erythema. No bony instability. Strong pedal pulses. Skin is intact. No tenderness of the ankle. Gastrointestinal: Urological: Neurological: Awake and alert. No focal deficits. Follows commands. Psychiatric: Cooperative. Medical Decision Making Imaging shows no fracture or dislocation. She is medicated for pain. Results are discussed with her. Discharged home to follow-up with her PCP and orthopedic physician. Patient was encouraged to return to the ED if symptoms worsen or change. Assessment/Plan Foot sprain (S93.609A: Unspecified sprain of unspecified foot, initial encounter) Orders: oxycodone, 5 mg = 1 tab(s), Tab, Oral, Once, Stop date 01/31/23 9:47:00 EDT, STAT, Start date 01/31/23 9:47:00 EDT, 01/31/23 9:47:00 EDT XR Foot 3+ Views Left Medications Administered Given oxyCODONE 5 mg Tab, 5 mg, Oral Disposition Plan Patient Discharge Condition Disposition: Discharged home Condition: Improved and stable Counseled: Patient and/or family were counseled to workup, results, treatment plan and follow-up recommendations Discharge Prescription List Prescriptions No active prescription medications Follow-up With When Contact Information Nate Gavin In 3 days 02/03/2023 EDT [address] [place] [address]- Business (1) Additional Instructions: Gracy Medina In 3 days 02/03/2023 EDT [address] [place] [address]- Business (1) Additional Instructions: Patient Education Foot Sprain Attestation Patient seen and evaluated by the physician fundraising assistant. Attending physician was present in the emergency department and supervised care. This visit was performed by both the physician and an APC. I performed all aspects of the MDM as documented. This report was transcribed using voice recognition software. Every effort was made to ensure accuracy, however, inadvertently computerized photographic engineer mistakes may be present. Appropriate healthcare PPE was used in evaluating this patient. The patient was placed in a mask. The healthcare provider was wearing mask, gloves, and utilizing proper hand hygiene. All equipment was properly cleansed. Problem List/Past Medical History Ongoing Smoker Historical Asthma Endometriosis GERD (gastroesophageal reflux disease) Procedure/Surgical History Appendectomy, x2, Colonoscopy, Hysterectomy, spine surgery for scoliosis. Medications Inpatient oxyCODONE 5 mg Tab, 5 mg= 1 tab(s), Oral, Once Home albuterol 0.083% Inh Teresita 3 mL, 0.083% - 3mL dosing units, Inhalation, q4hr, PRN Bentyl 20 mg Tab, 20 mg= 1 tab(s), Oral, QID, PRN Colace 100 mg Cap, 100 mg= 1 cap(s), Oral, BID, PRN ibuprofen 600 mg Tab, 600 mg= 1 tab(s), Oral, q8hr, PRN lactulose 10 g/15 mL Oral Syrup 20 gm/30 mL, 10 gm= 15 mL, Oral, BID metoprolol 50 mg ER Tab, 50 mg= 1 tab(s), Oral, Bedtime Milk of Magnesia 8% oral suspension, 2.4 gm= 30 mL, Oral, BID, PRN Percocet 5 mg-325 mg oral tablet, See Instructions Prilosec 40 mg Cap-EC, 1 cap(s), Oral, Daily, Not taking ProAir HFA 90 mcg/inh inhalation aerosol, 2 puff(s), Inhalation, QID, PRN Protonix 20 mg Tab-DR, 20 mg= 1 tab(s), Oral, Daily Seroquel, 75 mg, Oral, Bedtime Symbicort, Inhalation, BID Xanax 0.5 mg Tab, 0.5 mg= 1 tab(s), Oral, TID, PRN Allergies Tape (rash) bacitracin vancomycin Social History Alcohol - Denies Alcohol Use, 01/01/2022 Substance Abuse - High Risk, 01/01/2022 Current, Marijuana, (more content not included)... [facility] Comment on above: Result Comment: Elec tronically Signed By: Perry Osorio PA-C\.br\Date and Time Signed: 01/31/23 18:56 EDT\.br\Electronically Co-Signed By: Eren Ramires DO\.br\Date and Time Co-Signed: 02/05/23 07:11 EDT Physician Orderon 02-01-2023 Physician Order [id number] #1.00CD:127 [facility] Consent for Treatmenton Consent for Treatment [id number] #1.00CD:127 [facility] Discharge Instructionson Discharge Instructions [id number]#1.00CD:127 [facility] ED Clinical Summaryon 2022 ED Clinical Summary [place] [id number] ED Clinical Summary Person Information Name: NATHANIEL MARCIAL [facility] Age: 47 Years : 1975 Sex: Female Language: [place] PCP: Carol DESHPANDE, Gracy Graff Marital Status: Phone: [phone] Visit Id: Visit Reason: Foot pain-swelling; LEFT FOOT PAIN & SWELLING Speciality: Acuity: 3 Enc Type: Emergency Med Service: Emergency Arrival: 01/31/2023 09:35:54 Discharge: 01/31/2023 11:16:30 LOS: 000 01:41 Checkin: 01/31/2023 09:35:54 Checkout: 01/31/2023 11:16:30 Dispo Type: Home (Routine DC) EVENTS: Event Name Event Status Request Date/Time Start Date/Time Complete Date/Time Arrive Complete 01/31/2023 09:35:54 01/31/2023 09:35:54 01/31/2023 09:35:54 Document Home Meds Request 01/31/2023 09:35:54 Triage Complete 01/31/2023 09:35:54 01/31/2023 09:41:55 01/31/2023 09:41:55 Bed Assign Complete 01/31/2023 09:38:48 01/31/2023 09:38:48 01/31/2023 09:38:48 Dr Exam Complete 01/31/2023 09:38:48 01/31/2023 09:40:52 01/31/2023 09:40:52 RN Exam Complete 01/31/2023 09:38:48 01/31/2023 09:46:21 01/31/2023 09:46:21 Registration Complete 01/31/2023 09:40:52 01/31/2023 09:42:08 01/31/2023 10:13:52 Isolation Screening Request 01/31/2023 09:41:56 Dr Exam Complete 01/31/2023 09:44:12 01/31/2023 09:44:12 01/31/2023 09:44:12 X-Ray Complete 01/31/2023 09:47:49 01/31/2023 09:56:15 01/31/2023 10:09:13 Meds Admin Complete 01/31/2023 09:47:49 01/31/2023 09:55:52 Wet Read Complete 01/31/2023 10:09:13 01/31/2023 10:17:51 01/31/2023 10:17:51 Reg Complete Request 01/31/2023 10:13:52 Reg Bed Request Complete 01/31/2023 10:13:52 01/31/2023 10:13:52 01/31/2023 10:13:52 Discharge Complete 01/31/2023 11:08:11 01/31/2023 11:16:35 01/31/2023 11:16:35 Transfer Complete 01/31/2023 11:16:35 01/31/2023 11:16:35 01/31/2023 11:16:35 ADDRESS: [address] [place] [address] DR [place]ACHELE M[place]ANDA [place] [id number] PHYS DOC NOTES: MEDICAL INFORMATION: Prescriptions Given: Medications to Continue with No Changes Other Medications acetaminophen-oxycod one (Percocet 5 mg-325 mg oral tablet) 1-2 tab(s) Oral q4hr. Refills: 0. albuterol (albuterol 0.083% Inh Teresita 3 mL) 0.083% - 3mL dosing units Inhalation every 4 hours as needed Wheezing. albuterol (ProAir HFA 90 mcg/inh inhalation aerosol) 2 Puffs Inhalation 4 times a day as needed Wheezing. alprazolam (Xanax 0.5 mg Tab) 1 Tablets By Mouth 3 times a day as needed for anxiety. prn. budesonide-formotero l (Symbicort) Inhalation 2 times a day. dicyclomine (Bentyl 20 mg Tab) 1 Tablets By Mouth 4 times a day as needed As needed for pain or spasm. Refills: 0. docusate (Colace 100 mg Cap) 1 Capsules By Mouth 2 times a day as needed for constipation. Refills: 0. ibuprofen (ibuprofen 600 mg Tab) 1 Tablets By Mouth every 8 hours as needed as needed for pain. with food or milk. Refills: 0. lactulose (lactulose 10 g/15 mL Oral Syrup 20 gm/30 mL) 15 Milliliter By Mouth 2 times a day. Take with 8 ounces of water. Refills: 0. magnesium hydroxide (Milk of Magnesia 8% oral suspension) 30 Milliliter By Mouth 2 times a day as needed for constipation. Take with 8 ounces of water. Refills: 0. metoprolol (metoprolol 50 mg ER Tab) 1 Tablets By Mouth at bedtime. omeprazole (Prilosec 40 mg Cap-EC) 1 Capsules By Mouth every day. pantoprazole (Protonix 20 mg Tab-DR) 1 Tablets By Mouth every day. quetiapine (Seroquel) 75 Milligram By Mouth at bedtime. PATIENT EDUCATION INFORMATION: Instructions: Foot Sprain Follow up: With: Address: When: Nate Gavin [address] [place] [address] Business (1) In 3 days 02/03/2023 With: Address: When: Gracy Medina [address] [facility] [place] [address] Business (1) In 3 days 02/03/2023 DIAGNOSIS: Foot sprain [facility] ED Patient Education Noteon 01-31-2023 ED Patient Education Note Orthopedics Foot Sprain A foot sprain is an injury to one of the ligaments in the feet. Ligaments are strong tissues that connect bones to each other. The ligament can be stretched too much. In some cases, it may tear. A tear can be either partial or complete. The severity of the sprain depends on how much of the ligament was damaged or torn. What are the causes? This condition is usually caused by suddenly twisting or pivoting your foot. What increases the risk? You are more likely to develop this condition if: ? You play a sport, such as basketball or football. ? You exercise or play a sport without first warming up your muscles. ? You start a new workout or sport. ? You suddenly increase how long or hard you exercise or play a sport. ? You have injured your foot or ankle before. What are the signs or symptoms? Symptoms of this condition start soon after an injury and include: ? Pain, especially in the arch of your foot. ? Bruising. ? Swelling. ? Being unable to walk or use your foot to support body weight. How is this diagnosed? This condition is diagnosed with a medical history and physical exam. You may also have imaging tests, such as: ? X-rays to check for broken bones (fractures). ? An MRI to see if the ligament is torn. How is this treated? Treatment for this condition depends on the severity of the sprain. Mild sprains and major sprains can be treated with: ? Rest, ice, pressure (compression), and elevation (RICE). Elevation means raising your injured foot. ? Keeping your foot in a fixed position (immobilization) for a period of time. This is done if your ligament is overstretched or partially torn. Your health care provider will apply a bandage, splint, or walking boot to keep your foot from moving until it heals. ? Using crutches or a scooter for a few weeks to avoid bearing weight on your foot while it is healing. ? Physical therapy exercises to improve movement and strength in your foot. Major sprains may also be treated with: ? Surgery. This is done if your ligament is fully torn and a procedure is needed to reconnect it to the bone. ? A cast or splint. This will be needed after surgery. A cast or splint will need to stay on your foot while it heals. Follow these instructions at home: If you have a bandage, splint, or boot: ? Wear it as told by your health care provider. Remove it only as told by your health care provider. ? Loosen it if your toes tingle, become numb, or turn cold and blue. ? Keep it clean and dry. If you have a cast: ? Do not put pressure on any part of the cast until it is fully hardened. This may take several hours. ? Do not stick anything inside the cast to scratch your skin. Doing that increases your risk for infection. ? Check the skin around the cast every day. Tell your health care provider about any concerns. ? You may put lotion on dry skin around the edges of the cast. Do not put lotion on the skin underneath the cast. ? Keep it clean and dry. Bathing ? Do not take baths, swim, or use a hot tub until your health care provider approves. Ask your health care provider if you may take showers. You may only be allowed to take sponge baths. ? If the bandage, splint, boot, or cast is not waterproof: ? Do not let it get wet. ? Cover it with a watertight covering when you take a bath or shower. Managing pain, stiffness, and swelling ? If directed, put ice on the injured area. To do this: ? If you have a removable bandage, splint, or boot, remove it as told by your health care provider. ? Put ice in a plastic bag. ? Place a towel between your skin and the bag, or between your cast and the bag. ? Leave the ice on for 20 minutes, 2?3 times per day. ? Remove the ice if your skin turns bright red. This is very important. If you cannot feel pain, heat, or cold, you have a greater risk of damage to the area. ? Move your toes often to reduce stiffness and swelling. ? Elevate the injured area above the level of your heart while you are sitting or lying down. Activity ? Do not use the injured foot to support your body weight until your health care provider says that you can. Use crutches or a scooter as told by your health care provider. ? Ask your health care provider what activities are safe for you. Do exercises as told by your health care provider. ? Gradually increase how much and how far you walk until your health care provider says it is safe to return to full activity. Driving ? Ask your health care provider if the medicine prescribed to you requires you to avoid driving or using machinery. ? Ask your health care provider when it is safe to drive if you have a bandage, splint, boot, or cast on your foot. General instructions ? Take blim-jyo-qmeylxm and prescription medicines only as told by your health care provider. ? When you can walk without pain, wear supportive shoes t (more content not included)... [facility] ED Patient Summaryon 023 ED Patient Summary [place] [id number] Patient Discharge Instructions Person Information Name: NATHANIEL MARCIAL Age: 47 Years Arrival Date: 01/31/2023 09:35:54 Discharge Diagnosis: Foot sprain Primary Care Physician: Gracy Medina MD Provider Information Primary Provider: Eren Ramires DO Advanced Criminal Investigative Agent:Perry Osorio PA-C The exam and treatment you received in the Emergency Department were for an urgent problem and are not intended as complete care. It is important that you follow up with a doctor, nurse practitioner, or physician?s fundraising assistant for ongoing care. If your symptoms become worse or you do not improve as expected and you are unable to reach your usual health care provider, you should return to the Emergency Department. We are available 24 hours a day. NATHANIEL MARCIAL has been given the following list of patient education materials, prescriptions and follow-up instructions: Follow-up Instructions: With: Address: When: Nate Gavin [address] [place] [address] Business (1) In 3 days 02/03/2023 With: Address: When: Gracy Medina [address] [place] [address] [employer] (1) In 3 days 02/03/2023 In the event that this physician does not participate in your insurance network, please consult with your insurance company to find a nearby participating provider. Patient Education Materials: Foot Sprain A MESSAGE TO ALL PATIENTS REGARDING OPIOIDS PRESCRIPTION OPIOIDS: WHAT YOU NEED TO KNOW Prescription opioids can be used to help relieve urqcetzg-tx-gfwbsf pain and are often prescribed following a surgery or injury, or for certain health conditions. These medications can be an important part of the treatment but also come with serious risks. It is important to work with your healthcare provider to make sure you are getting the safest, most effective care. WHAT ARE THE RISKS AND SIDE EFFECTS OF OPIOID USE? Prescription opioids carry serious risks of addiction and overdose, especially with prolonged use. An opioid overdose, often marked by slowed breathing, can cause sudden . The use of prescription opioids can have a number of side effects as well, even when taken as directed: ? Tolerance?meaning you might need to take more of the medication for the same pain relief ? Physical dependence?meaning you have symptoms of withdrawal when a medication is stopped ? Increased sensitivity to pain ? Constipation ? Nausea, vomiting, and dry mouth ? Sleepiness and dizziness ? Confusion ? Depression ? Low levels of testosterone that can result in lower sex drive, energy, and strength ? Itching and sweating RISKS ARE GREATER WITH: ? History of drug misuse, substance use disorder, or overdose ? Mental health conditions (such as depression or anxiety) ? Sleep apnea ? Older age (65 years and older) ? Avoid alcohol while taking prescription opioids. Also, unless specifically advised by your health care provider, medications to avoid include: ? Benzodiazepines (such as Xanax or Valium) ? Muscle relaxants (such as Soma or Flexeril) ? Hypnotics (such as Ambien or Lunesta) ? Other prescription opioids KNOW YOUR OPTIONS Talk to your health care provider about ways to manage your pain that don?t involve prescription opioids. Some of these options may actually work better and have fewer risks and side effects. Options may include: ? Pain relievers such as acetaminophen, ibuprofen, and naproxen ? Some medication that are also used for depression or seizures ? Physical therapy and exercise ? Cognitive behavioral therapy, a psychological, goal-directed approach, in which patients learn how to modify physical, behavioral, and emotional triggers of pain and stress. IF YOU ARE PRESCRIBED OPIOIDS FOR PAIN: ? Never take opioids in greater amounts or more often than prescribed. ? Follow up with your primary health care provider. o Work together to create a plan on how to manage your pain. o Talk about ways to help manage your pain that don?t involve prescription opioids. o Talk about any and all concerns and side effects. ? Help prevent misuse and abuse o Never sell or share prescription opioids. o Never use another person?s prescription opioids. ? Store prescription opioids in a secure place and out of reach of others (this may include visitors, children, friends, and family). ? Safely dispose of unused prescription opioids: Find your community drug take-back program or your pharmacy mail-back program, or flush them down the toilet, following guidance from the Food and Drug Administration (www.fda.gov/Drugs/R esourcesForYou). ? Visit www.cdc.gov/drugover dose to learn about the risks of opioids abuse and overdose. ? If you believe you may be struggling with addiction, tell your health career representative a (more content not included)... Normal [facility] XR Foot 3+ Views Lefton 05-0 XR Foot 3+ Views Left Exam Date/Time: 01/31/2023 10:09 EDT Reason for Exam: Pain, Traumatic Report IMPRESSION: Diffusely decreased bone mineral density as discussed, which may relate to disuse. No distinct acute displaced fracture. EXAMINATION/TECHNIQU E: XR Foot 3+ Views Left HISTORY: History of recent ankle surgery. Elkins popping sensation with pain and swelling along the fifth metatarsal. COMPARISON: 11/12/2022. RESULT: Underlying diffusely decreased bone mineral density, which may relate to disuse given the reported recent surgery. Within limits of the decreased bone mineral density, no evidence for acute displaced fracture. Partially imaged plate and screw fixation within the distal fibula and 2 corticated screws in the region of the medial malleolus. No evidence for dislocation. Mild degenerative changes first MTP joint. Hallux valgus. Diffuse soft tissue edema. Small plantar and posterior calcaneal enthesophytes. Bipartite tibial hallux sesamoid. No other significant abnormality. Ordering Provider: Perry Osorio FINAL REPORT Dictated: 01/31/2023 12:22 pm Venu Persaud MD Signed (Electronic Signature): 01/31/2023 12:22 pm Signed by: Venu Persaud MD Transcribed by: CARISA Technologist: MIGUEL ANGEL Technical Comments Radiation Dose: Ka,r in mGy = na DAP = na [facility] Physician Orderon 01-26-2023 Physician Order [id number] #[id number]:[id number] Normal [facility] Progress Noteson 01-11-2023 Bit Sharpener Authentication Interface Message Text EMERGENCY TRIAGE, TREAT AND TRANSPORT (ET3) DOCUMENTATION OF TELEHEALTH VISIT Date / Time: 01/11/2023514 Name: Nathaniel Marcial : 1975 SSN: [id number] EMS Agency: [facility] [x] Verbal consent obtained [] Implied consent - patient with potential emergency medical condition requiring assessment of capacity to refuse treatment and/or transport VITAL SIGNS: see flowsheet documentation Reason for Telehealth Visit: Chief Complaint Patient presents with Ankle symptoms/complaints History of Present Illness: 47F h/o recent L ankle fracture s/p ORIF 2mo ago, called EMS for pain, just started bearing wt and physical therapy yesterday for the first time, denies fall n/t weakness, endorsing constant throbbing pain hasn't taken BP meds yet today though endorses EtOH Additional pertinent PMHx, SocHx, FamHx: PMHx sciatica PSHx recent ORIF SocHx tobacco etoh abuse Famhx reviewed and negative for history pertinent to current complaint Review of Systems: Denies the following: n/t weakness color change rash wound change Exam: General: Awake, no distress, no gross intoxication ENT: normocephalic, atraumatic Pulmonary: No respiratory distress Cardiovascular: Well perfused Neurologic: Oriented to person, place, time and events. Moving all extremities equally. Psychiatric: Appropriate. Good insight and judgement. Ext: LLE NVI intact (palpable pulses normal cap refill per EMS) surgical incisions CDI Medical Decision Making: Recent ORIF NVI wounds okay doubt arterial venous occlusion compartment syndrome fx dislocation necrotizing fasciitis septic joint, plan treat in place tylenol ice pack wt bear as concepcion call her doctor in the morning Disposition Supported by Telehealth Assessment: ET3 transport decisions: Treat in place EMS Disposition Reported: Same ET3 Encounter Completed by: Jarred Rosado MD Normal [facility] Documentationon 12-09-19 EMS Documentation Please click on link to see report pdfCD:[id number] [id number] bMTkyOSAwIFIgMTgxNSA wIFIgMiAw IFIgMTgxNiAwIFIgMTkz MQMfYDSoC2Lyo4SAn6qn JH9dMHNmOAN2ZCGeKKG1 THDnAB6jX7JecOXx OWh8PrBoMFQoGNGqZLf0 RwLePQDzTSJhzQXAq5we KR6zEKBoYZV2JPTzREK0 VUKuIE8tAFvvQF4a U1OewmTklVOlArI7PMJk Ji6OTRTnoPIyXVD3KT9R z4phdnNiXWVhUDnxD8On BOJ5VOJrLIUQXu6l Op1qeKg1N8AWMDShKrG3 BELeOm5UEEVjMAv9MRCz IFI+Yj7Yrq2fY6V8Zv3H YBNmCZP8oU4fGKx8 J7G8VNPdYRP6PQDlRIKA D1zOGaruK9PpJKjvFWTi IFI+Dt2Ut7WtjJMxDD1M qOM8C0OEEJAfibJy CLEjKQlhEH6KBQigL1Rn YnMvUz4+HyGsPV8zzsha GODdt4YzJxk3N8cnrva1 mHSgEQR3Uj0+c3Ry CCJwJa3WAjRnV8FtHCWg j0DlBtGrYXh3OkJ9WSSk IpBjREM0CvDkYSorMxUp ZIMheyrmSGF6HCWp AvJrDSr3TQ0aCui0PTAs WtSWAZDsLeR9VGOdLqVo LRLvTIPzNfMEOMc0AmN4 BRXyYZIyOch8CTN4 MSByZQpmCjEwIDYxNSA1 NzYgLTAuNzUgcmUKZgox GWI2BkGeSbDtKZs7AS7m Qvz4UHJpRkSNYKVb SoB7VKAnOrYaGAL6BSLc DgXCMIs6TvI0NJWyHWRy Put7LM66MJVtOBkwSsNi MLD8VPNmS52VGNPn EgJqDjM9AfM6NHJ9Ur0r NSAtMTIgcmUKZgowICBz H48VNCPyZkYkZgJtDNT5 Ku0kIWRiQQ93HNKj SGhqHvJzYKK9BEHwR42X Ogs5BXRwBC2wLUCfRGcv MjUgLTEyIHJlCmYKMCAg s6YiAwD3QRZ4SGPy Azi4DzL0XD3bXai1MEMg FrVXXTQpRRadVNS7PfWv TE20IOSiULreCmByQRL3 WL5iULP1RrLyUGPc JiPwabLYOukgTIE4PhWk YH42TLFxUaxvLLRzVPuf RgI4RL9sHFW0HeMoGU95 NSAtNzkuNSByZQpm IfCeTUM8MRYpZ69RCGJc XaBvWKC9HrU9VCZ4CM04 HA2vIuDnDLimNdTvQMVr fbktKO35CON0FNis AMl5NdAvKDIgAoVlpjDO Lax4SEKvNRS3QOKzUkRy EHLnLqD5CA1cSsh8BBVz CmYKNDUyLjUgNTAx MONzOD1tQXUwTZ69YBTs KNsxKcD5Js66XNE6YY84 HHWaBzg4PT56MS23MLJw PbCDEZpmLOF5UA28 UOGgSgm4LK68OF55GLDx TzWHGT25UUmiXOLbtxk0 DWPoViQrBZI0KXEzAK81 NSAtMTIgcmUKZgow SXSlT28WZNKuTuF6KKI5 Lq30EONeSvtyZsRqWRAz PkDkweXCFhnwAUO7PUFz UGX9WdNdODPlBaZi cmUKZgoxMCAzMzYuNzUg BLv9EJ2tHtz0TDXpHfSO LXLrLDdjMnQbSZ22OFJc LUX2OyFnauJXZvx9 LSWnRcSmZYexDyYtHS26 DGMcXBF1IkOhscMNPavw EkgvDQOlf8GxWwWfNlt0 IJC3CS36WYE6ZoZw NSAtMTIgcmUKZgowICBz Q25HVRYnZtJsBVc2HoZi SEt4QtWqYNDjHjNrakHY ZgoxMCAzMjcgNTc2 PY9eDbl7WELxTtCRUUFj LhKsFC22CHJrQeIdetVZ Xoc4FYNfSpOgJhGhOB40 NSAyNjQgcmUKZgow LlqpRDCol3LrHnEhHrl5 BYIdDe5iQJE5OaXhSTOa ODMrdyRYTbkaHVWcR89H GHXpCoScBzV3SZQ8 KF49YT7wGdx4ACHmNzTX FVoiZkWvFqv0WhSzXBTw LjUgLTAuNzUgcmUKZgox GP4hYAT9LmGxYvQm MTUxLjUgLTAuNzUgcmUK YtxbJQ0jAAM6HkYuPGZv Syf1VB19JvMhZKtoLiR4 TWQ2NhJgZRWxFlf6 AX94WoQjNZapKyLbLJA9 YSOaF67HMAhtNxu8Brc0 UGM4BSKjZKKoToLiwdMP ViaiYCPrX52YLUzn ZGR3Zo83PGSgYI7iCPLm BP49JAOcSRrbZcD0RSJ5 MjIuNSAxMjguMjUgLTAu NzUgcmUKZgoxODEg Yss6FfWjDH14QKZkKKQp NzUgcmUKZgozMDguNSA2 QyRiVJKmHld2OI33IQ76 NSByZQpmCjAuOTE4 IVLsS33FPKqiFtw1AIW8 SL47VGBoRJRmAMImHzMr cmUKZgoyMTEuNzUgNjc1 Efe0HCH4WfUaAQMz BpZ6ZVZvEqYGQyP8QtW8 GOQ3BZ71ELW5CR7cDOMi MTEuMjUgcmUKZgovUCA8 OH1BZ5dUEAFoDr6F REMgCnEKMTAgNjMgNTky BYU5LkKlYDiSQZ3MLwRL RBOco5XbBg1VJQGlPNYN XixnYB7iIOjkAPpt EMKxMUFmEGA5Cd18MFX6 PWajQxYqLW7TZrqFBHYi fTdrUDNyVI0rPS84IIos H88gb8Pid7YgqnFe czopXVRKCkVUCkVNQyAK C9VbEHtsBQOHJBJuMF9+ QkRDIApCVAovVFQxIDEg VGYKOSAwIDAgOSAx BiIkCwQuTvG9LGAnJqyh QWxlcnQpLTgzKCAgICAp JGYZSrYXWlLONgIJQ9Yc RXwlBNCJJJW3NL1+ QkRDIApCVAovVFQwIDEg VGYKOSAwIDAgOSAyNTYg KjN7Ymp1NBGaObapDW4q hxlnOHypAO8eSW05 OBwzV65mo8Tqy6VdjeWn czopXVRKCkVUCkVNQyAK J1WtLLwiYYVYCIH9OQ3+ QkRDIApCVAovVFQx FBZwOOBREBYTlbQ1VUUw XWD1VUA8NPL4VOdsYN1K AO6jICAuIoOEKuMIBoVM WDpBZKrpJOS8TM1A D1jVSMJxTW3+QkRDIAow SFUmF47CH5HJHJNsIJAf Bg8qGpIzIbHVqjK9TNBs ACL2WIH2HgE9VVym FM7eXSLUjSytBWFxZD9y J7QptYowRPquDQIYXFDi iWy2HFA9ZF3CMvyUORCy Zn6GQUm7H20MEJFm MGHaGk6SJNIdMc7QPCAi IRQVKnlyYXQ4DGIdFyD6 NpRhOuZ0FiAGEUfeYi7h QUkGUW6VQThxOWE1 ZK1VF3tQZKZ3FU6+QkRD IAovVFQwIDEgVGYKLTAu XOF2NKG0JT17FqHoWwOu NC59LKEqEUFGJsbF jIFni4PvUWC8APUPX6Rc QDcgPBGKSaMUUmGGR4Rr PDwvTUNJRCAxOSA+PkJE XdMKR0DHVKRhAROp QgqfAnTzDNUcORN0PRGv HjniMoYRSJ4tWpbiYlQd YXRpdmUpLTMzKCApXVRK MiFDQjQIK5DkFTeh TUNJRCAyMyA+PkJEQyAK F6GGGPAiPCLoCc6uTz52 QQbtSKLkXrY9LKMeIlec O5Tjy5seD9XCSFbu PNElZWD3gGQ8o84yKC7k LhyzWbOuf2z2NNZ7QO3W SviHFXRmZr9ZTMg0D07P IJOeQbPrLt1ACTEj Fr0QBQSzZMGCZfsbBq96 WAhcDH5qSlwnBRCIQssV g0BfGJMrBEXVnFThjVKa UhprZU5JXsgMOPYh Uu8JVPv1L24TVQUkZzoy In3BNWAeFa5TISToRANV NyqqYZ82IO3bGqO5UwNH PGjbSP5phdKacIjs PvvbBZXqFRTlnxV8ND7F PazZHPDqVh5YVRo4T38Z DNBfJfErLu2XJANxYu1I LHVnAAVPIno3CdFy NY7tFBHkESQRPegTj0Pv TAxuPJT6CWCTUHKrvCvm ZSktMzMoIGZvciktMzMo IFBhdGllbnQpXVRK OyKXHzNDZ7JkYYhbOQIY RCAzNCA+PkJEQyAKMCBU cvBsHCjuZCX6HP4cWdKo NyBUZAooIClUagpF ZPSmTf3TNQM4BA9CQ9mD OHZ4MF7+QkRDIAovVFQw CPSoFEIKTsLfOU47YWDt PDOUEST9xItwfbiM pflOHDXgSeHCDq5DGLk2 J09UZMSrXOZmMu5MLZMj WoEZIj6JEHUhJVRQQzq1 ONWxNRN8MTK5BZW8 GK98QCJxZyyKRMM4BZDi ZyJJKz3HXcYnT7EaUFUt S2JTPfNeVwGbabVXvTAb SAWeREJiAJS2SMU7 EN18ABYnkHkyGBXraRhp TV89IRYiPZdVWgnNXcVO YwNAPzJGU7AeEKhxOBOS TOZ0BIR+PkJEQyAK E0KCTLZhBQSlHn8dShJt BbESdlT5ZIWeBKG2YOd6 Ctl7JTM5UB30IVDyKxmq IClUagpFTUMgCkVU Qk8UBSw8R39YBDIeOMEb Ky3OZYZsQnSPNo6JAHTj VKELXuwtEHN7IHuvBEXd ZObuJXW8DLY1SA82 IFRtCihSaWdodClUagpF VApxIDEgMCAwIDEgMTI0 LEW2NX80NTKdaSdlVUVd zHmkYc86XCMvPYeU VjuEAwMKPrWVMpBRY8Sy NUpgMLTGJOL2RSA+PkJE OeIQR6LGUIVwDQNuXm6e MdBhIzKKgcO8DKUy ZMN3YUQ6WK78AJD1VQUs IJENbArdDCExONoNSF5G OPujIPH8LO8TB4aDXLJ7 ID4+QkRDIAovVFQx ZSOpPJCFUGM7ReC9RiDu GI1oKODBDTmiUAAuroK6 FJ64UvyqXBgtPRcNWJ2E OKspTHW3GF7TW5wH IDYwID4+HcATNQa1RjT7 OrPiMWWqTfvfE73dIE6y MyggICldVEoK (more content not included)... [facility] Coding Summary.on 11-18-2022 Coding Summary. CD:[id number]:[id number] Gh0bWw+PGhlYWQ+PE1FV FYgK88hoSTjsI8VV0pLD G5ENEODXNYIDF6IYE3pj PN8MBexO2AjzcGt TslksOBfGQ01WJo2KNY6 eKmaHXkatP1dtWRiY8o4 IaMeES58aL98UCakRAHj IyW9RfAvxwawlSTq Q7hgDwXuvZLbZyy+PHRh YmxlIHdpZHRoPScxMDAl JvIoxDydMK5uZr1cGWHl LWNvbGxhcHNlOiBj k6zhIZLnPOisGW3fbYwm U5KinDW3LXGdg4u8Pj12 dHI+OTNqHBU2lTjrJBsq h997XyLsh8gfIUA1 oRBnXCywZJC2N42yi1N4 JAZjRYYmBQK2vQM2vX7z tNrkijsvI4AbyUEyJsY1 EIQ8vJRvcX3hoObj hupatA4zDdb+O01ZKI2G IQTZLJ1XYne8K9DsKzrv dHI+TH79VGIwRX39mAVr dSLij1jdoDg7YvKh XFXjSGB1fKfsVYkxt1Ae DZDuA57tkVOxe8U6WPLh hFiajPCfHuUekXC7lK6d BPgotoprm0squxmh Wetnp8sscw30cP57C97n WEzlRFLjUOP0XKHwOBRi wCeveh4gzO0tXj8+IDxj u6xzl7yedZd2OhDh VUWthtVboJwwQOM4v2Qz Ls16J3CliMfuw2XuSwq5 xt95pSJtf6S8uHB8MRkq EVYgyF9iLVsjMjP6 FCHmFvFceR76nIDdOZgy Cr8voQkrdShpFX1fGVEt bvsnGFTdiZ3hVRMxgXKt nGefWI5eMLQriduj h348SeDvQPR6CTPscVZr X9LivE7vFiVgQHLbUUUc Q8PtnPPwAUaiG147DVth XtI9IEYuczFjK7Xm HRRpjBucEmE8y7H3Yk6N n0UptilzOQO0QVzjWFBi HtI7LzQcAhP5U6SpBlt2 BRQqzAndRZ9aI7Cv WRFwpowzobdjcVM8RQZm YPPrrQ93tVHpWRybZm2e i0N3z542RLGpOAIoeU57 Vj6dzHaqKYDcoMVH aH0poujje9vgxvftLeSn EOVpOUa2SNj5BDLvaIni TqJcFFR3NcV0DIE9tBYv kO4iyPgasrgbmG1m Oyc+H88npO1lOAR9CCH0 abqsBUSndfCiQW06MW80 C9FkBihzsRDqnBG+PGRp bfKlnFkuKA6nAlEs a1wsy5EtVRbqR0UvEEGc XJtmLhy9ZZJlHWS5yTG4 xT6aSZClASago9P5eBT1 O0YkdkMocp8vm1et UMVaATmiG85yuYPso7R7 QVEagNB8DSGakXazQaAk sA62Sjp+ISEmwUsfu3Om Okgnu2med0ibzHo9 IjMwJSIgdmFsaWduPSJ0 l4GaMq43S07tIAwhBELv QONnYUViSHUvhQmzfl9p qG6zHc3+PGNvbCB3 bZX4yK2yWBIfKwY5PWki B676CnVzbZMnJvmoc2fk s3ezxCr5XrWqGYHaqePn qBtjKTM0r8AyZy53 O10uKQrmUQVdAOPaMTYo CLXnuLstdi9rqV5qPp4+ OB9fz6hbtl73zR97vGP+ YEZlFFD2lPvlNEzx MXErnO0jTUgzVzF5JTXj AwUccB71dNUeFJuzPn2t uSmvrTdyLM3gOTNaatyi u478RnWyw0tmADUy cAMnNJvrGTC7B03te5M7 SOBiYHSfARE6oPF8hR4h bGlnbjogbGVmdDsgdmVy zDydJXfpSEspI371 IHRvcDsnPlBhdGllbnQg TiSmMKm9N9MvGyz7VGCl hFfyQA7smCWuGPfsCr0c uHdaxQdtWU4kGWCm zssex176HuLaq2gmNQTb yNHqTBslOQQ8U08wr5Z8 OWYoCCBfIUF9wFY6lE7e bGlnbjogbGVmdDsg ztLxqRjyIWqxVNfvI958 IHRvcDsnPkJpcnRoIERh qBY8YC23BA66iBMvi2W6 pRT1I3AmTHOmcmvf bhotpEE4FAEuWYTxbM99 Dd4ubSudWo4rZIOsYCN6 JKMraMCkR0OwuG3nNkJm BADpQSOuE1DmsBZw LGdpE612LZymYiM8POWj tgSvS8XvMRVzbWxuMfI1 c8W0Ed4RR5N3OH16SH97 oCYfj8E6eTW4W7Im ZWLccgbtowuhyYI7RYWt WIIluG72Uh3ypFyoJp6q RXXjQZM0LDRejTGiJ9Hy uZ9mQvYjWOBfCNBe C7QelTZzUFaaS462CIsl NiD9LACelpQfJ0GeNMAi nWzqKtC1v0E7Se5ZOHr6 LK98PM62aZCik0Q5 iKP0Y3DkYABgdooycwyh lPJ6JJAuBXErtS21Mc4h sJxaTv1nWTKnBBJ6SHEc iAMaM7XicW9tBqJg HPVsITYiY6YtzJJoWNin S113UCnxTxV6CPXsllIn S8SaEAQruQjxIgS2u2T2 Yh5AWTIrCG78NVX2 oVV5UQ83MQ01W2NlCbwc dGFibGU+PHRhYmxlIHdp ZHRoPScxMDAlJyBzdHls WT4zTc7qOTIkWHCy qVqwjBZiTkIjf8yzHGLw GUcbQK7lyLyiI6ZgiLT6 OSZad6h9Vu11C70lA0Tg dXA+DHZasTV1dVY0 pX5bQsLhSwM9LVmxS375 BrZclYWoZclxp8egp1fy tHi1ZyD1LTUljgCfeZda FYF1h7PgVo07X54y IHdpZHRoPSIxNSUiIHZh gKpfki6evR3eGc7+PGNv sWG2vTT5zH9rYbKdKkE9 QTuoA621EkBzxYWe Trlix9ovy5zmdCt8TgMf LWLjrkBkqZlzJJV9e9Mv Yt04O0RzlNuhu6GbExv8 dy10vGZxf8A7fHD5 T3ClGPHknqttbXLwiPdh OJ1oJATtnnlwBXNntY0e KNNgL1j9RrWwTeE7SBgo K4TosaX0PQXeqLZs PNhiNYB9C58ik5G3CPHp GRXgFAN3oLB1dK5ugTzd bjogbGVmdDsgdmVydGlj QRhiNOooM286ZONp kKcfPKKdyZ0dOZYfrJTv hIlcIS0iHEPhefjwYdoP OKXvRBUQHR2JY77jGxuq dGQ+HKHiBDL1mBjb ROkqHFKjiY3oRSWxI5l1 PhKsHtI7DPowU3RcBYZf npinJr68qE6dYoXoBvN5 QIarB1QhsnD9XOCg gLSuXQfmVNO1X02zw9H4 QJBdRKBiWEI8jKO0oL5l bGlnbjogbGVmdDsgdmVy pTqxBWjvAYvyQ385 ATIhzCyeQaHgTjF8NjK9 QiN5G2ZqKwg5RHEmzOmz VB7asSBrYXzyCv3sjEql fEehKK8uGQVjzskd KRJfuV8fRSXmxFTnmBht KL5wCJPwreqvn121DcCg VRQ7SKKxqXZdV1KzsO5o IwVeQPDgMGCnO9Zx qESsYXbwG588YJouUjU4 MJBtwtNjB2PcHJJpbIwr QjO8w7B7Ji96BXVLXDQv czwvdGQ+PHRkIHN0 yIrnZBecCJIzuI2sGRUo E3b2KpLjKhC1TNvvL9Xy NDCjzmwtBe50qJ3nKqFk FzZ9ZKfmE7JghxX4 IYBgrZLrSFceXXD7Z33p s0U4KJSyJFZiYTJ5bLJ5 sZ1uaHuiawjhpLOubLpt dmVydGljYWwtYWxp A494SKIvuKxpAaMwcEMj ZTwvdGQ+DIAqLDF1oBax FImxPECayS3wXIVdI0s5 SlHsBeN9JZcoZ1Fy IJJxhjscTg55cY8uQaCq JrC9HOnhX8UlspU9MBIp sBXrSXazJLV0Y48za2P5 XMJyOIEvYLB3vIX8 yN3ifIrjxyvtoWZxbDtr ztQnnSvnOVliXAtpW582 IHRvcDsnPkFtYnVsYXRv gjnmA3QlNCGLISnm H2ZsH2NheRmoaNS+PC90 sc40O5EwEuiqSwg7JLBa LTH7gZJ5yD9wZZYuPBvp n4G5iBC5S7NgqtSw ny9sc7arRQSpZZnvD25p eNGqu6Y0SEOpgPR5HLXu fBzpHaPtbF47Rtd+PGNv iRohu6IhCpomb1tg d1vrlLr7TuRnATSjzbNy mKhlNIZ1c1NuEl93I74h IHdpZHRoPSIzMCUiIHZh nVdbnr9tjI9kAb1+ ECXmvEN0dXA7tB7pRaPm ZqU6VYrpF232NnBwgCCp Nvrqp4plv0zyhLn1BsYl JSIgdmFsaWduPSJ0 f2PtDl79E8TorJlcj3Gn Sew9hk93aHPdk3A6cXW3 F0UqPQWznrvrxKMgvWpd AH1kHEPunqfbQDKr zZ9uIZFhZ9j5XcDzQaG7 LBnsO0IyibG1XALdwKCw PDEvsQJRrI1dhplxo8ca cjogIzAwMDAwMDt0 KDz1CDMvhOscBiEcBJT0 CbW3TYJ0nVEgeL0poHrd cmcarW6cTfd+DJo1a5gu bJEsQX3zzYD0NC85 VH22nWWij5N8tSI3V4Oe VHCauzxhrwqupYT4LJQx HSQlvF02Hx1bwTxcXm7s ILPfPCB3SZCjxPIu Q3HfyN6uBfHvMVKgCSRx O5GqtKSeVVggL064JPyl DaK3QPVyizLwH8JaXDAz pXkmKcG1u9D4Ad5F QC83JX25JR64xTAxo0L1 eZS8Z0MsJCTkfrjgufbo hUJ3IJYtZJFgcJ77Cg4k lZzuFw6yBNJxGII9 WLMtnTJsB5QmgP1iMvMn THUrOXEzL7XucKQfQMcr W270TQidYiY1CEGoctSu Y0HkXDOupLhaCfI7 y7L0Ki1NKm38LR57EP02 vDHgv7T8yAP3R2HmLMId nsnlqwogdSU6KJZkAGEx zW28Lu9pqKlmJs9v HVUiIOX5HLSifPXtD2Qo mB1aPuSsMWHuLCVbR0Ut vSRyZKfmP268DNeqBqL8 IYIhufFsP1BfSHEm aLvwMnK8n0S1Ua2KWAip ela1D4YdVjxcsTU+PC90 RFHgKT82nVIotZIuy8ul cDc7FlGmUGJlSSO3 eWxl (more content not included)... [facility] Coding Summary. CD:[id number] Gh0bWw+PGhlYWQ+PE1FV YKqB47fjCRmuX0DG0hQU K3YFYUXDHELGN4SCM4wj QQ8UNvqH6YxabKz HbfzvQOhKW70FJv7FDG7 iQpuJAhyxQ6kvFChH4n7 TvDlSF42xM78MLvzZOBp KdL2OmYysozxbUWs C8igCvUpuHOeGni+PHRh YmxlIHdpZHRoPScxMDAl ZsIklNjmDF1rAf8cTDAc LWNvbGxhcHNlOiBj v1yqXZVkMStnWM8seZcf N0OdzWJ1ZDEmn3m7Qc13 dHI+CVDdGTC5yXffZJjy t479LgTgx2yxHOM2 gWOrBTagJQE1L95vf4E0 JGEnRNKpWKY8xOY1mG9t tNzqtdtpP6MwoHBbMrP7 GCU0cDPswN5anIrh sypdzZ0ePmn+U94EAH0I NRAAQM8RKte5O3UlCdlo dHI+JA77OSWuRK73yQBl eYQce8ennGt3CpOq XSXsFRB9cAhdRMegh1Vx UJCrP07naBJpu3N3XYUy oZlntVUiNrCasMC2nD5w ORqauqikb1aejama Dhawb3gwvv85iU41S76r ZJkwFTOvPNL6QQRbSCNq mKcqqo1ngC3tLw6+IDxj t5ity8oysLl8AlPr ACSpeoBqnNftZKR8x7Yv Vg18R9RhgIqcy7NcNpy7 ws53kYQpp4G2qRN0ONrk KXXaiI9nFVtbHdT3 GVLxFkCbnL15fKDvZWhp Js5rmLchgKwoCB5rWMOr uehpWYSwcQ2xVFKtkCRn mDytVP8aJUXrpejg z313DsCrEMT8HEWxsTPo L9VfxS0mMhIxHYYqKGXr N1WozYZpNJgoN974JRji EgM7VZLtpiPmY2Xq JAWzrCzmNkS4v1M9Cr6O k6ZldlyrCNH8WKxoNWWj McHtDjSaMnM5F0ZtLxq9 VBUmkRzmFX6uD2Vz GFDcvmlvwenztVW7ZDSg CWSxeH21tHPkEJhsUr4o y7V9n012DCSzNMMohT34 Vq3woRcsSVFkyGGR xE6dgomam3nqwegiEtBz RFEiCAz5EYd6UFCwxOan AcGgGNC3BgR3CSU0uDCl cQ5toRwfoprlrZ9r Oyc+U92bnN1tGIR9RGG3 kbcbSKWgazRiQM51ZI20 B2WnMfrixVFkvKR+PGRp szRyzDonUV1fYwBn l1che4OgWCglL2SbXZOv YWtsHtn0HVKcMYS9uQN4 hM3bPFTdHNqoq7V2nVX7 G3KdhoKkqz5xo4hq NPYpLQfmD82kcRVvj6W8 JJJcpQG2SUWriOtrMaLi nQ80Tbw+TADflKtgg2Sb Eepno1iry4divPl5 IjMwJSIgdmFsaWduPSJ0 e8MnLk61S84dVAtvSZXr MQUjSYSvGHIqrVuwff3s zL2bTa4+PGNvbCB3 kVA4wY0dMEQfNfM8WEwq A110CkRueMVqWorkm9km j5jfeKr7XxTrGNPeqlRy fOusHLD4r7KoSv68 L85eJKcpWNGaLQEcRATb EWRakFyaxm9stS8aTf4+ RK7hg6hsof52wR43fOA+ ZDFeJCR1gFyvNDwi SJSdmZ4kVVleLeH1CZFw VtDlxV66jXTaGNqnUn4o lXvbuSepNT4kWCBllysk x810MtZyw5tdDHFb fGFqHJksRLH1Y60gu3J0 BZGzZDAqGCF5dGM9dS2n bGlnbjogbGVmdDsgdmVy oLsuXWkwQQtlI679 IHRvcDsnPlBhdGllbnQg KxXsEOe5B5IuWmf6RMKy dBvlZE1zdTAxSRaqCj5n bSiosGumAV3eBHVb jzbfz240XxKax5hgSWVb oNLtAKpcYKY8A58qx1V0 JPBpYQGsKIH8uPT4gN9a bGlnbjogbGVmdDsg giRsdDgdUNfkJVeaA317 IHRvcDsnPkJpcnRoIERh rMG6OX96OB39rASzn2S3 nSK1R9GkOZUvrysi fdxyoRE1PMEbJMNhmR86 Ny8siOhhAh5iCXPvLTJ1 IOLhdJTcP0TiiL5tCrFs QCZxDWHtN4VyeEQy YCnxV359QEgmPpY3YWLk tcYsV8TdEDRidEktYlK0 z6G4Ez9BY2Y1PW73HQ21 gUOoo4C5cRD7N2On QXCpnfibdvyleKT8KUGy KRTuaE80Gp8fuWekNc0x WXWkYWW5BPUqdQPlO0Ly fW3gSyOoPTLvYQPb C4JdwHSjYGilE375VHhv VjU8HVZqybLbK4VbJUHt lWmsZnY9p0H1If2ETYt0 DN62RN64pZKpu1N0 kJO2R1EpEZCktijwxyzq lSS2BUNgFAZgbL66Tq7f lFmvMx6uOYPfMBF6ZGQs rVYbS5KmzF4rCoEy ASBzCZWzG9NwtYKzSBkx M392XMynSzD3UFLipjBn R6VjXMDvdYalDdD5q4J9 Yk9TXNHaES30CKF4 fRX1PQ36VB24K5KgYtft dGFibGU+PHRhYmxlIHdp ZHRoPScxMDAlJyBzdHls OE0rYz6vMLSyYQRd uQhmzHLyMiCqb5ylAWGm XOvzGC6rdAxsN5CxnXZ9 HDKds2m3Su23P37pV0Gx dXA+OUUvhFK1jAO7 oF3lSgElNmO5ZRaaK557 VsCqbABaObnzf9oli6xs qXu4LyX4QZGxxtXptFli RFD2s2DpXh38B61s IHdpZHRoPSIxNSUiIHZh pYlhzl2ycQ3lZs1+PGNv kUY4nHA5oL1sVzEiIfM4 BAoaY430FdKulALd Ygneg8bga5mypZf8FzIj AFHropMxfZsqWAC8p0Bm Ma48F4PnrXzmi9GcCdz2 jc83aRDze7L3eQQ4 M0VyGZQhekljuCUtbGcz PV4pRHUqalcmAMKraE9l ZREqQ1z3LuAwSjU4VDkv B2ZarcQ5BPStkWCc OSvqFDJ4I38zs9F1QTUl XIKsDZQ4hEC6zD9nuWup bjogbGVmdDsgdmVydGlj AVscRRehP290FVGm hOdjLSFyxL6wXGOswVKw hUwcXK9nISFlvqmcNebV GVRdBQSJLT5ZR62xUcgv dGQ+CUQsRUE9vHeq VXuiURTmrH3sCSRnS1w8 GdLlZtT5QTmlW0HcLRPl mfyvJe39jV1xYlKpJsW0 AKsyV0VrwbC8OBKs fXVdZJfiGUM5W85nl8M1 GYOwKGCdQKZ9zDX4zY4p bGlnbjogbGVmdDsgdmVy gAqaLHusHTpxN168 JOWxtToeSkQmHoM0FpQ8 FxA0U1XiTja6AFCdxYue PA2xnWVyBUyaAv7lyPsw iHrwQV8sAZApcnma GGEqiF7zOFFmxAUpwMpy FJ3uBHImaipbq891MlGb EWK4EFQkxPWrJ4VqcJ8o YeFpQNYkWGSdY2Am tXNoAJjyT149DVknRbT6 QMTxqpPzD0PcLODwpXwb RiS2n2A3Zp36PNRJCVMi czwvdGQ+PHRkIHN0 kJxjDKsyRRHwdN2vRFYy Z7f1BcOhKpS5JUmoS6Qk XEAhapjzMv71tB2cMnIb SgW4TCcsG3RqgyC3 FKGliDJeXYhuVXX4Q18r p7B3YSIaMJXeNSA0aZY1 yN6dmNztpnspjDCeaLub dmVydGljYWwtYWxp E848CIVtkIixBmPejHLo ZTwvdGQ+FNRuUII2oDnk YIwjQERmtS1sQWNpO6h0 GuLnQoN0ZBwwI2Wd RWRfgolcGg47nT3nPhYd GhS7WFdfQ1KufbN7ZZXo jPJrXTjqCDY7N67ta8T9 EJOxZPGqDPG0yXS8 dT1pjQbapbtkbHTfqXhg vqGahGmyELeeYGdcZ469 IHRvcDsnPkFtYnVsYXRv ikrkS3YgPKUVRJmj X4EqV9EqpDbjwSY+PC90 mi70Y3CzLdxnUio8DQBj GLA0gZI3vH7yCWInHNmp a4Z6dPF5J5QuglNm ea6qr8lqBGVwSMyvL01y rJAzq8H5CBDgtZF8IWCj iCzlTgEdoV59Fnl+PGNv hLwah7HdMxdrc9hy g8ukeSw9NuZyYGJjraJu gMduJYP8w8DcZh08M75r IHdpZHRoPSIzMCUiIHZh nAgiea3jaN1xXt4+ MKIurZZ0tJV4vN5wHxUr YlV2UUaiF801ZcZqlAUr Ekahk8bfj5ecpKl4CeFc JSIgdmFsaWduPSJ0 m6LcGh41I3SyhWear4Rk Xzm7cn48cCTob1T0eOF5 D1BjJKPdvqrkjONluSsg PO4mIGDyergwTOKa kI5sTPTuG6t8DhXwDoQ6 EDigG2NojsY7BPJgyFYy EFPpoVGBpZ5tludta8cw cjogIzAwMDAwMDt0 WJs7JWRhdEuwFxSxRFM0 YoB3WBL3mZNsuV2dfBnt pfcwsH0hZzs+XOm3c3en wVQdHZ2neSF7DF26 PQ85jEMec7W2yVH1T2Ur STNjyzdzacgpdZX8XEOc SSLxlV20Ld9ltBlnGc6q YALhIGF3YRYzvIGt P4HdzU5xRbLtHSNqAWIh N0QayXCsWHcvS419GWjb WbB7KWPnenCxF6AkKVBn sFavOwZ5y8M9Hp9T YN11MN09EX24aDZlr9S4 bDG8Z8CpFSEgnnetgeay zUE6HSNpWNTrsD44Le3r sBxrWq7kASDcDZY0 SHAkoGQmT0AgiY9cXoKz KHTuFFGpY8MyhGByAJaq M234JNkcPtI5GWMjppIl D0DzWRFtpVchLjC1 l7N7Pk8PBf00IS49AT11 rJEru3N9dCJ8A2QnMESs jomsryqbjLI5JPUqOYYc cA36Ko6keSliOy0r KZYlBMM3WYSwxTUiU0Mg dR0xMxHaSWPfPQUpB8Pg fSMsYNcaL339KVsmKrQ9 OVLfyzBhH9IcNWUf iYujDuN4i2V9Nc7LAUce sjk2G0TbKcdouUT+PC90 BJEbIV54yRDabVMnu7ss lPy4DmPkXAXrUVF4 eWxl (more content not included)... [facility] IntraOperative Documentson 0 11-18-2022 IntraOperative Documents [id number] [facility] Progress Note-Physicianon Progress Note-Physician Patient: NATHANIEL MARCIAL Age: 47 years Sex: Female : 1975 Associated Diagnoses: None Author: Issac Lewis Jr, DO Postoperative Information Postoperative disposition: Postoperative disposition: To PACU. Optimetrix number: Optimetrix number [id number]. Anesthetic utilized: General. Health Status Allergies: Allergic Reactions (Selected) Severity Not Documented Bacitracin- No reactions were documented. Tape- Rash. Vancomycin- No reactions were documented. Physical Examination Vital Signs 11/12/2022 17:25 EST Hourly Rounding Yes Promise to Return Yes 11/12/2022 16:58 EST Heart Rate Monitored 70 bpm SpO2 97 % 11/12/2022 16:57 EST Temperature Axillary 36.4 DegC 11/12/2022 16:57 EST Systolic Blood Pressure 122 mmHg Diastolic Blood Pressure 85 mmHg Mean Arterial Pressure, Monitered 98 mmHg Pain Assessment: Controlled. General: Awake, Alert, Appropriate. Respiratory: Adequate air exchange. Cardiovascular: Stable, Normal peripheral perfusion. Neurological: Normal sensory function, Normal motor function. Assessment Anesthetic outcome No anesthetic complications noted. Adequate pain relief. able to void without difficulty, able to ambulate with assist, tolerating PO intake, no N/V. Review / Management Condition: Stable. Plan Transfer/Discharge: Transfer/Discharge Discharge when meets criteria ( From PACU to floor ). [facility] Comment on above: Result Comment: Elec tronically Signed By: Issac Lewis Jr, DO\.br\Date and Time Signed: 11/18/22 09:15 EST Progress Note-Physicianon Progress Note-Physician Patient: NATHANIEL MARCIAL Age: 47 years Sex: Female : 1975 Associated Diagnoses: None Author: Issac Lewis Jr, DO Preoperative Information Time patient last ate or drank:=== (npo 8 hours) Anesthesia history: Patient history: No prior anesthesia problems. Re-evaluation prior to induction: Completed, Initial evaluation reviewed. Review of Systems Respiratory: No shortness of breath. Cardiovascular: No chest pain. Hematology/Lymphatic s: No bruising tendency, No bleeding tendency. Health Status Allergies: Allergic Reactions (All) Severity Not Documented Bacitracin- No reactions were documented. Tape- Rash. Vancomycin- No reactions were documented. Current medications: (Selected) Prescriptions Prescribed Bentyl 20 mg Tab: 20 mg = 1 tab(s), Oral, QID, PRN PRN As needed for pain or spasm, # 12 tab(s), Refills(s) 0, 0, Print Requisition Milk of Magnesia 8% oral suspension: 2.4 gram = 30 mL, Oral, BID, PRN PRN for constipation, Take with 8 ounces of water, # 360 mL, Refills(s) 0, 0, Print Requisition Starks 325 mg-5 mg oral tablet: 1 tab(s), Oral, q6hr for pain, 12 tab(s), Refill(s) 0 lactulose 10 g/15 mL Oral Syrup 20 gm/30 mL: 10 gram = 15 mL, Oral, BID, Take with 8 ounces of water, # 240 mL, Refills(s) 0, 0, Print Requisition Documented Medications Documented Prilosec 40 mg Cap-EC: = 1 cap(s), Oral, Daily, # 30 cap(s), Refills(s) 0 ProAir HFA 90 mcg/inh inhalation aerosol: 2 puff(s), Inhalation, QID PRN Wheezing, Refill(s) 0 albuterol 0.083% Inh Teresita 3 mL: 0.083% - 3mL dosing units, Inhalation, q4hr PRN Wheezing, Refill(s) 0 Problem list: All Problems Bipolar 1 disorder / SNOMED CT 8423705331 / Confirmed PTSD (post-traumatic stress disorder) / SNOMED CT 36048107 / Confirmed Scoliosis / SNOMED CT 584755352 / Confirmed Smoker / SNOMED CT 069279050 / Confirmed Added secondary to documentation in Social History. 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 Endometriosis (8450791272): Resolved. Asthma ([id number]): Resolved. Family History: No family history items have been selected or recorded. Procedure history: Appendectomy. Hysterectomy. Colonoscopy. spine surgery for scoliosis. x2. Social History Social & Psychosocial Habits Alcohol 01/01/2022 Risk Assessment: Denies Alcohol Use Comment: denies - 01/01/2022 16:55 - Morales MCDOWELL, Radha Harding Substance Abuse 01/01/2022 Risk Assessment: High Risk 01/01/2022 Use: Current Type: Marijuana Tobacco 11/11/2012 Type: Cigarettes 01/01/2022 Risk Assessment: High Risk 01/01/2022 Tobacco Use: 10 or more cigarettes (1/ . Physical Examination Vital Signs 11/12/2022 7:32 EST Heart Rate Monitored 80 bpm Respiratory Rate 17 br/min Systolic Blood Pressure 104 mmHg Diastolic Blood Pressure 76 mmHg Mean Arterial Pressure, Cuff 85 mmHg Hourly Rounding Yes SpO2 90 % 11/12/2022 7:10 EST Hourly Rounding Yes 11/12/2022 7:05 EST Heart Rate Monitored 69 bpm Systolic Blood Pressure 105 mmHg Diastolic Blood Pressure 79 mmHg Mean Arterial Pressure, Cuff 88 mmHg SpO2 98 % 11/12/2022 7:01 EST Temperature Oral 36 DegC Peripheral Pulse Rate 73 bpm Respiratory Rate 17 br/min Systolic Blood Pressure 105 mmHg Diastolic Blood Pressure 79 mmHg SpO2 97 % 11/12/2022 6:46 EST Temperature Tympanic 36.0 DegC LOW Peripheral Pulse Rate 69 bpm Respiratory Rate 18 br/min Systolic Blood Pressure 100 mmHg Diastolic Blood Pressure 83 mmHg SpO2 97 % Measurements from flowsheet : Measurements 11/12/2022 6:46 EST Height/Length Measured 149.86 cm Height/Length Dosing 149.9 cm Weight Dosing 65.4 kg Body Mass Index Measured 29.12 kg/m2 Weight Measured 65.4 kg Airway: very poor dentation. multiple missing. the few teeth that are left are decayed,cracked,chip ped.. Respiratory: Lungs are clear to auscultation. Cardiovascular: Normal rate, Regular rhythm. Review / Management Results review Interpretation of Outside Results Chest x-ray results Radiology results ECG interpretation Condition Plan [place] [employer] (ASA) physical status classification: Class III, E. Anesthetic Preoperative Plan Anesthesia: General. . Anesthetic plan, risks, benefits, and alternatives discussed with the patient and/or family. Risks discussed: nausea, vomiting, headache, sore throat, dental injury, serious complications. Patient verbalized understanding. Communication: face to face with (patient 5 minutes, Pt educated on the importance of smoking cessation.). [facility] Comment on above: Result Comment: Elec tronically Signed By: Issac Lewis Jr, DO\.nasir\Date and Time Signed: 11/17/22 08:04 EST Consenton 11-14-2022 Consent [id number] #1.00CD:127 [facility] Discharge Instructionson Discharge Instructions [id number]#1.00CD:127 [facility] IntraOperative Documentson 0 11-14-2022 IntraOperative Documents [id number] #1.00CD:127 [facility] Main OR Intraoperative Recor don 11-14-2022 Main OR Intraoperative Record IntraOp Document Type FT Summary Primary Physician: Nate Gavin DO Finalized Date/Time: 11/14/22 14:05:00 Pt. Name: NATHANIEL MARCIAL [place]/Sex: 1975 Female Med Rec #: [id number] Physician: Nate Gavin DO Financial #: [id number] Pt. Type: A Room/Bed: [place] [address] Admit/Disch: 11/12/22 06:45:29 - 11/12/22 17:55:00 Institution: Case Times FT Entry 1 Patient Times In Room 11/12/22 09:45:00 Out Room 11/12/22 11:19:00 Procedure Times Start 11/12/22 10:14:00 Stop 11/12/22 11:16:00 Anesthesia Times Start 11/12/22 09:45:00 Stop 11/12/22 11:19:00 Last Modified By: Glenda Vora 11/12/22 11:26:44 General Comments: 11/14/22 Chart opened to review and send charges [facility]oth CSFA Case Attendance FT Entry 1 Entry 2 Entry 3 Case Attendee Nate Gavin DO, Jr, DO, James A Sayler, Kelsie E Role Performed Surgeon - Primary Anesthesiologist of Food And Nutrition Teacher - Primary Record Time In 11/12/22 09:45:00 11/12/22 09:45:00 11/12/22 09:45:00 Time Out 11/12/22 11:19:00 11/12/22 11:19:00 11/12/22 11:19:00 Procedure ANKLE FRACTURE ANKLE FRACTURE ANKLE FRACTURE ORIF(Left) ORIF(Left) ORIF(Left) Comments Last Modified By: Glenda Vora Kelsie E Sayler, Kelsie E 11/12/22 11:26:46 11/12/22 11:26:46 11/12/22 11:26:46 Entry 4 Entry 5 Entry 6 Case Attendee Issac Gaytan HOGSHEAD PRESS OPERATOR, Inez Mcmahon RN, Katharina Role Performed Scrub - Primary HOGSHEAD PRESS OPERATOR/SA POWER DISTRIBUTOR Time In 11/12/22 09:45:00 02/18/23 09:45:00 11/12/22 09:45:00 Time Out 11/12/22 11:19:00 11/12/22 11:19:00 11/12/22 11:19:00 Procedure ANKLE FRACTURE ANKLE FRACTURE ANKLE FRACTURE ORIF(Left) ORIF(Left) ORIF(Left) Comments Last Modified By: Glenda Vora Kelsie E Sayler, Kelsie E 11/12/22 11:26:46 11/12/22 11:26:46 11/12/22 11:26:46 Entry 7 Case Attendee Edward Ross Role Performed Computer Game Tester Time In 11/12/22 09:45:00 Time Out 11/12/22 11:19:00 Procedure ANKLE FRACTURE ORIF(Left) Comments Last Modified By: Glenda Vora 11/12/22 11:26:46 Perioperative Protocols FT Pre-Care Text: Implements protective measures prior to operative or invasive procedure, confirms identity before the operative or invasive procedure, verifies operative procedure, surgical site, and laterality Entry 1 Procedure(s) ANKLE FRACTURE Patient Identity Birthday, ID Band ORIF(Left) Verified (select at Check, Patient least 2): Participation Consents / H and P Anesthesia Consent, Operative Site Present Verified HandP, Surgery/Procedure Marking Verified Consent, Transfusion Consent Surgical Site Yes Laterality Verified Yes Verified Procedure Verified Yes Correct Patient Yes Position Verified Availability Equipment, Implant, Prep Dry Yes Verified (If Medication, X-ray Applicable) PreOp Antibiotic Yes Time Out Nate Gavin DO, Given Participants Lewis , Issac Cotton, Glenda Vora, Issac Gyatan, Margarito YOUNG, Salome Saunders RN, Cody Posadas Bryce Time Out Complete 11/12/22 10:14:00 Outcomes Met? Yes Last Modified By: Glenda Vora 11/12/22 10:30:28 Post-Care Text: The patient is free from signs and symptoms of injury caused by extraneous objects Allergy Information FT Pre-Care Text: Verifies allergies Entry 1 Allergies Reviewed? Yes Allergies Reviewed Self/Patient With Outcomes Met? Yes Last Modified By: Glenda Vora 11/12/22 10:25:30 Post-Care Text: The patient received appropriate medication(s) safely administered during the perioperative period Surgical Procedures FT Entry 1 Procedure Description Procedure ANKLE FRACTURE ORIF Modifiers Left Surgeon Description LEFT ANKLE ORIF Primary Procedure Yes Primary Surgeon Nate Gvain DO Start 11/12/22 10:14:00 Stop 11/12/22 11:16:00 Anesthesia Type General Surgical Service Orthopedics Wound Class 1 - Clean Last Modified By: Glenda Vora 11/12/22 11:26:50 General Case Data FT Pre-Care Text: Classifies surgical wound, implements aseptic technique, initiates traffic control Entry 1 Case Information OR OR 2 FT Case Level Level 4 Wound Class 1 - Clean Specialty Orthopedics ASA Class 3E Preop Diagnosis TRIMALLEOLAR Postop Same As Preop Yes FRACTURE/SUBLUXATION OF THE LEFT ANKLE Postop Diagnosis TRIMALLEOLAR Outcomes Met? Yes FRACTURE/SUBLUXATION OF THE LEFT ANKLE Last Modified By: Glenda Vora 11/12/22 10:29:44 Post-Care Text: The patient is free from signs and symptoms of infection Skin Assessment (Pre Procedure) FT Pre-Care Text: Implements protective measures to prevent skin/ tissue injury due to thermal or mechanical sources Evaluates for signs and symptoms of physical injury to skin and tissue Entry 1 Skin Integrity Intact, Schwana, Warm, and Skin Abnormality No Dry Outcomes Met? Yes Last Modified By: Glenda Vora 11/12/22 10:27:54 Post-Care Text: The patient is free from signs and symptoms of injury caused by extraneous objects General C (more content not included)... [facility] PACU Recordon 11-14-2022 PACU Record [id number] #1.00CD:127 [facility] EMS Documentationon 11-13-19 EMS Documentation Please click on link to see report pdfCD:[id number] xLjQNCiX5+prnDQolQUJ YbDUoVPPrKyC5PQcgXzG nBH5qob8DZIgFY7SeJGS 3Anm5Cn5A LSfrAvc9DNX4V31VS2am UuEaVowtYo3UrQ0vJWTv maYlFZWKK10aXWzhWuZl CZknCVXsDEF5YRRB Tg6oQBOsYIYoNGFsQWNi ICAgICAgICAgICAgICAg ICAgICAgICAgICAgICAg ICAgICAgICAgICAg ICAgICAgICAgICAgICAg ICAgICAgDQplbmRvYmoN Op1NpJVlIb5KDfQpVxSR CjAwMDAwMDAwMzIg UMVzSLLnkp0YZKSrSNDq LTA6HGZvZIIxYTZgEJqx EZYqVBJyHnz9BCErFXZs VN2NJvZfEXFwSPR2 EeWcCPVgTJHyic0DOQZy APKvDoY3GeNvHJZpDNEf CKhlOTOmHRRjOhQ3OQSw KNZoSN6OFaDwZQLm IGW2TLBcGJAyHMJhis4J FEYaOWFcGcD1OxIhHKUs MCBuDQowMDAwMDAyNTQy WSPpHWHuRG3PAgGf YVVoQZB2PPXgJUSmCXNi kz2ZNEXcUETsMpj8TzLy MDAwMCBuDQowMDAwMDAz BnX6SQDeDKEtLH4E CzLaXDGcARU8SSLhDKMn LLNpua0JCFCiPTLoKays OCAwMDAwMCBuDQowMDAw MUVyREh9KICsVSIi MK8LEuGbCNEoLXYkOhUd ESXhERKimy2NCKGeIYLt ETX1IqWcJUGwEZCxGTjb VZNvXTP1JhOfTBVo TLCuXL3LKkXrPPTbRJKa KBWsVYEeGOCsto5RTTHc YGRbCLJ4HPDmYZDuAATq INfuOIIpCIL2Flpo AXEoOHAzUN4QQpAaCYSc MXE3ZjnvTBKtQSGsdh1K VDRuWWNwMwU2PLSjLJXx MCBuDQowMDAwMDA2 CeX4TUUtFLNsJW6OMqPl DOOpRVI3QKSdSKClFDYq tx0EHXGbLCDdUegpDOBq MDAwMCBuDQowMDAw ENTiAnB2ODMsANCiBN5Y SzHxUQUnGYC1YByoCQTa KZSrqf2XRIIhUMV1MJM2 NiAwMDAwMCBuDQow MDAwMTEzMjczIDAwMDAw NR0BDiRsILmcXFNTYfn8 Vk4FEGBzIAUKRNX2WVK4 OTBCMkNCMTJGRjFD MVQzGAZbFax4UnN6Xhi5 QXk1YEoLChBaDED9RfD4 UmD9XnndYnSlBYW2U5HF QjY+XQovUHJldiAy YHR6YXIMW2Uxv1RtPbmo RYLOAu1VlOqpXSR6Io7V u0WgP6BaPHbsShrLkB4K YNUMMMF0LZ0lqUQe CLsha6XIYkJJGn41T7E1 mROeR3vOScgrtfT9v3GF FV1GUE5lNjH1ArjQGtED TFfuH870CcDUYg94 WIqzMAY5X7gYZsSGbjKn Y6jAXJBnVYFTMY9TOQo2 XvWvVydhAZ04HOtOYPGC T7QKYtNLHGYMNNZF PEKeqITwAtsaI9BrUGzB Ri8iHQSxMCHaTPGtNPKo ICAgICAgICAgICAgICAg ICAgICAgICAgICAg ICAgICAgICAgICAgICAg ICAgICAgICAgICAgICAg ICAgICAgICAgICAgICAg ICAgICAgICAgICAg ICAgICAgICAgICAgICAg ICAgICAgICAgICAgICAg ICAgICAgICAgICAgICAg ICAgICAgICAgICAg ICAgICAgICAgICAgICAg ICAgICAgICAgICAgICAg ICAgICAgICAgICAgICAg ICAgICAgICAgICAg ICAgICAgICAgICAgICAg ICAgICAgICAgICAgICAg ICAgICAgICAgICAgICAg ICAgICAgICAgICAg ICAgICAgICAgICAgICAg ICAgICAgICAgICAgICAg ICAgICAgICAgICAgICAg ICAgICAgICAgICAg ICAgICAgICAgICAgICAg ICAgICAgICAgICAgICAg ICAgICAgICAgICAgICAg ICAgICAgICAgICAg ICAgICAgICAgICAgICAg ICAgICAgICAgICAgICAg ICAgICAgICAgICAgICAN BzA6NMP0oYItCg5M KF0FSMVKG9EGXz6HTctm RISzZquLDmf4Ms1FZCVs VDJ4OREdUDSlNDDVB72k OB6AA0Xhi93cJwZ4 VICnNmgyCdp6GK9XM704 dGxpbmVzIDIzIDAgUgov NNYfRE7wPSBeR8BmRP5n loKIV8HwJ6PtJHG9 YCLsDneyPThlTLVoA9E1 YWxvZwo+Rx0GHY3za4Nq IUoXIaT7IQWwn4GxNKl1 TAxoStlkmNCvNC1T vFX5USScL39wWSstRGSm X9LlOTA0VKexPjQfYZOQ Kx8YFmU2okKstA0XkEzq IUUdWJEfe68cfDOO 1apn8ZWYCcCNoDAFLCQ7 p4+BgakGqM+TARvAlOdl ZGMNKjAPHZjUYpSI20LT nIyEXD2ELoYRyV2I 7UReBg1XSoaFipFtZRVv BcjNDSWsDW6T6FdJ7Vrw GfeB/SrBpq6cq13KX6UH eIhcSWuKoVF3IAHF DWoW4YBckSZgJKKaOWOK BpSCQ90K4BiJFmSJNa7N PCutuoXvtHHeEM1JKdPj OC8erv9QDPebWOSz YZ8giw5XQZxYO4SeotFd duDsTZs4FMCpUQSaSh9O ZWRpYUJveCBbMCAwIDYx ZnG7JBXhDv3DHAYn ucUaOqOcSJOXOq6BDSLc dGEvXBHwXMrVM5qODxux D2QaTNvIX6ojBcO3SKNs IDAgUgo+Pgo+Pgov VHlwZSAvUGFnZQo+Pg0K TD6nu3PhNGwBGuHtPHOd m4BcCHk4HWitYlNhuYNw GIOmMRAxPtT7FJNr Eu0McKz2NUVcW0IvINYe QUFpw6JrVx7SOL1suLen QkAXL4Otk110jwPjjeW6 VDdeVA6xgfUecDI1 PAovSWFiYzYgNTEgMCBS Cj4+Cj4+Ac4FxEK3gXVh HR7Yp5MoUe0ZpOBxAF1Z P8VoEXN2Io4+DQpz gCMbFH2JHkpzb7kh0Zis 3KO2RLGRAJR3DiD6OHFp SuXlClfI4+Na7YU6ICEy UpCSNQHu4NuqDeau YReAR88vJDuRLORgs1vd kJfLFWgOADNrDtQNCmVu KQZ9rgBovE8OSQ1vx3Fb SQcXJmHkIWOfs2Bn NPh4QNppQx8gA40qjm3f iVtlC1DnWSakKMXjIJny TEogMAovTFcgMgovTUwg JYmuM0YmiAA6AChy E7OaJQl+An4CYX4lg1Tg WCmJLsGnXQAea8OkOKn3 HWpwAb8kN96kas0hbFnk Z4IhSEapDYByTTgp TEogMAovTFcgMQovTUwg CIcdI7YdbHZ5WEvoH8Jt MQo+Yl0ZXT0md7RzJGbH VqLuVNRew6BpEQr9 TCgrMs5cU60nod4dkOeu P5XxUVc+Gc2ECV4co4By SQqHUbF0DIAmu3AwTRl8 PAovQmFzZUZvbnQg W4VUX8vZXLiXc3JipPDa HyQ7KRNjFa5xNZ1FWb9Z OUHsHN5aVI33Ps8miZSx OnC9BPLaEb3PS7Oi J38bzV0iGX4VZAAjaKo0 oT2LHs6WxGJ6bPHzHN3P nIFwFPzjVR1Lexyzw3Vm YBK0UPJjAfroJMgh XQZyFj9xdVo+Jx7BJP8b p5JzVGfLGfG0LGTcu9Vw EOz6KDliQdRyMFKbsbEj T9SNB3uQPXoDf7Cv gTZxVbU8EJYvCq4gCO7E Ni3YQCYZrUW5PE2MzdFm NMv3Ie0OsgAsbydmFhRk KZAqgfPtaKatOa1T HGmoa9XmqRApYGRiOkOm Wy2AhDKosRNwJM27VXKA Vy6DL6DGSFRyM4rMVWKf QB8GVNIjrQp7pXdi NSgwAHskLd2plILjc0Wz bLN0y1TuVsFaRIFGWt3M xOX5nBRxFC9QPQENs079 YSsyWSMKP3Z7nLJq X1GxhnMFT2qfExDbZHFy RwKaUdH7EjE3YYs+Pg0K RB7ix7RiCVrGOkC1WLBm u3OxIRk5OVvzFIRm TQ71PCxzPo78YCk8Xkwf E1GuCVBoG4g4KXO6CO80 ARY3MMhsIKOkL3AmgVVx YRZcLkhtGUqSE2Uu LKwkGEU7Ax2Yt105KbZm lCQcQWT9YI24BMO7SkEl TgXgQeM7CVIzLVncZW95 NjAxNiAxMjIxLjE5 STAiRVbkDo3eaPDlyKMq VNWsVCFoEcaxLc8khK9m tQPlJ7NVJ8sXTDgTa8Rr rCVnGxT9JTTlLx4d WI5COn0UjNXvyDERxrhn RXYgMx9LeHCeYxE6Te9f RhL8TXpdFMnmNFXcBp3r qIOto0BwlKG2u5GT Uw2XYgTkHH3oom5KIOcf GfAcAL2dgv1YTPcDP6Rv bHRlciAvRmxhdGVEZWNv ETRGE9nsahk1lYHp ESuWDi2XXxP0vgOhvO8D oBuvCfmfplQKlZra4tch az4rT1xYNeA08FI8+QBH IdzZBnenpfBpQ963 M4zMMiS7Y089y5u4HVF1 aN0iVTo23FvcHH3u3LpW P594HNxYUcp/Guzh5OmO FZU9Ro9ZfoSiADtE 6DNUJ+9e9TtKxGUFWi23 aQ8kN0uYsDyid2Y5Fvw0 QuXKIwJyE5veyY1rShHP sNyEeuj90fN75wiz 4HOmaMTnFy1WM4yBlO68 oCjjcCooj+RFUo41B7/Y de7ld+xVbRH7YOreXIhE HIUPjaWeJle2h35Q 9x++kCw+pXcVd96HeyXs OTBnxGSeMMnKjBvJWZkV BI5oM2OC8fecnZnrQeoL zrnuadvY4E3YRAW2 d655SauWU9cbqH7d2GNi N3koHHrN/SMzq0yEMEmf qiTblLLwOR1A (more content not included)... [facility] EMS Documentation Please click on link to see report pdfCD:[id number] xLjQNCiX5+prnDQolQUJ DcGRmIDExMjAxDQozMCA cGF7qbb3ZHKaWF0BrVSj 7DaZLE8lt RvJ1UpVgUPeoFXvyGXSi XVZ1OuOKN2iasnNdevg6 SUXiIFelUfDnTo6DRJAi Fi3YAMP4AZl9Drg+ PiAgICAgICAgICAgICAg ICAgICAgICAgICAgICAg ICAgICAgICAgICAgICAg ICAgICAgICAgICAg ICAgICAgICAgICAgICAg ICAgICAgDQplbmRvYmoN Rf8FpEBaWq3TOzNpUWbG CjAwMDAwMDAwMzIg KGBaEARdou4RHYOkNCFl LHZ1OLQiOBGiMPXlNXnb KYInQAVcFLQ8VGRaMKHu CD9YAsJnZSPbGFQ4 RVsyUFBpGNCpys1PBMSl BFPyULg8HbNuKDVjGUAn MZhpRUDiIVPsBNG4PIYt GZFtFP7PEbPoJTDu AXTeQygwLDUtMINngh5R BYDxICLjSyP5GGYiGUTf MCBuDQowMDAwMDAyNDA3 RTTaPMBrFF2RGiHt CFEyBMG1WkDtSYBaKZPx pd2VCBMkCLQiVnF6FPLm MDAwMCBuDQowMDAwMDAy UsnbGVRcPBZhGL0A LbOqWBNdJWW2LXWqUBYc LZOvat6QYDUdUAIzCqC9 OCAwMDAwMCBuDQowMDAw WAOlZtA9TWSeWIKk BN2LOaGhYFWaXpu0QNkp ETUeLSGdrq2NTYQxDKY1 NDAzNCAwMDAwMCBuDQp0 rkSktWUeHWz2RJmv UKDuTrzHCrTHWbV4YZWF COU2UKgVAgB3ZPHYJKS7 IaNtMoXEPl2RLGOnCEi2 MXYBQZP5HHOrP2HB MDhBODczRkMyODJFQkVE Qs2PP8UyHZWdJFq8Ftt7 Bb8El453QKYwGHWnUseb Z2t1WSV0TqqbX883 cmNlIChXZUpYRnhOTzRm QtM4sCISZJLUH5I4E83s B39nLI3ASBuuN6K5MTgj K2F9IxAFS2TNWXFi ULPsqLx8EBnfOTo9Knmu nBkjVKD4U2LbvPR5C3ew o58fKTDEBWgMh7llMUH7 Q17FEevJLypEgpLP F3y4eLGYK6EoM9DjT2RX OCwSXBKlKBGiMo4DOJcK SDvijrwOIp7gCj1+ICAg ICAgICAgICAgICAg ICAgICAgICAgICAgICAg ICAgICAgICAgICAgICAg ICAgICAgICAgICAgICAg ICAgICAgICAgICAg ICAgICAgICAgICAgICAg ICAgICAgICAgICAgICAg ICAgICAgICAgICAgICAg ICAgICAgICAgICAg ICAgICAgICAgICAgICAg ICAgICAgICAgICAgICAg ICAgICAgICAgICAgICAg ICAgICAgICAgICAg ICAgICAgICAgICAgICAg ICAgICAgICAgICAgICAg ICAgICAgICAgICAgICAg ICAgICAgICAgICAg ICAgICAgICAgICAgICAg ICAgICAgICAgICAgICAg ICAgICAgICAgICAgICAg ICAgICAgICAgICAg ICAgICAgICAgICAgICAg ICAgICAgICAgICAgICAg ICAgICAgICAgICAgICAg ICAgICAgICAgICAg ICAgICAgICAgICAgICAg ICAgICAgICAgICAgICAg ICAgICAgICAgICAgICAg ICAgICAgICAgICAg ICAgICAgICAgICAgDQpz dGFydHhyZWYNCjANCiUl JW8YSAoTNtTsEPDzg8Bn LDo7UMxdGTI4VBXa hLDvVjasHNVGZe0FuYYn BQT6rC0yEMqhXfYxWPVI B4IprS2MD741uLfxsjXk HSS3ESTpSvvvDSNx DF4wYCKsC9DsEP1bwfVD O1BgG5EiFGQ1JSAnRdwl SHweTFZhC5P5FYikIic+ Pz1OQD3nd2ArXZaE AqTuUAMec7EtNZe9TUaj NwitpIKtZA8FqTU0EBLe S49gJTpjFAFfX1TaITg1 Sl7YLDw7Ao0+DQpz cXKgJI6JVsbnB6Qq0LFq IS9QaTEPjTrcMXZMScAy ANmMCGHNcAjdcZcBBaCL m48VFeyIbMWZOPH0 HlSxBRBzALEtlLYBYmYg vbFucc5MrKPzUPp7Buju SMsBB6GH8n3FXO8hg6Zc ZWFtDQplbmRvYmoN Mq7KCtTlCQPwKauKMwk9 Rj2Vf236MB58dbEbPoSo SXPCLSC2XODsSkWxNmPn IFIgMzggMCBSCjM5 KLSaZeB5UAJzBJUuAJCm BLVCZKWtVQGcVt1IQ86q GMdeEd64RRtrVTIqKcFf VBk5Md4YQ3MinfKf wIEaABVuDIXRH9Kmy399 krHeaqM9WWzaTt6nlUH7 PAovRmFiYzUgMzQgMCBS Cj4+Ox3LO5ZsQRS1 JZw9Kz8SFLBbTMQmVRPn YPJXJn5VRXWcRABhWKFn YJNFLo5HMUGzGSczCCPg FNCJAb6UHEApEnI4 VfRePZAXVo7FXc9FE9M9 dNJtB3WcI6QUJz8NEuCb HZ3hur0ZNGjcMHQeSO7x zx6UPEjEO6Cxn4UP m588OD0MxO2uhb5Iz74x fhjsAT1sr9UkchudJ8mx cpVhu6zLooXnQGnpMhqr Z0DzrGxiQSWuUNns YJZFZ5X6jRPsY5LeysWR Ei6STvFbHM7nfn8YWFbw KTVrIZ4kqf8BPAaOD7vm yrc4aZLbXKHDDw6V NbM0fiLbwE4CzD1HLzDJ CjAgMCAwIHJnDQovRmFi YzUgMTEgVGYNCjEgMCAw IDEgMjAgNzQzLjIg UA7EUmpqQPLCzkyyPSGm CEAmoP3SoCNzzB0xTTDu AMUaHRXmDuWqYQ6nRHwP CkVUDQpRDQoNCmVu DWP2qeLfkJ6ZHB7ot2Eu PVtZZaZ6PJXqj9QqLQk7 FWnnOLSeM0ZyCHX6Tc3+ UZcilUMvNW9CVzKM IOupONd3ZQHiGLYhQCM3 VXLxFID5RzoxXbAjBjDm L36RTk7NDXFvWoQOok1I OV1CFEsETo0QVU7i g3EfJKZdJFuzasWeCgbX Je6CXxoiBTDfRblHIum2 Tp7RNP8llSjfGSU8Bs1+ HEidlSNkBH3NApTP ZuCHINitVSRjSJBlHz2T Y8GpUfL8PMJcCSXlCOth NYAmNSWoRYLyIFH8QC99 XuPlWfCEjK2PWmVp KPC7DLXaEBVjMH40V5L1 vtjcYqVrBASbQP0UzE8t LqVdXX2dDLnJCgNZMLwY FFvQCeSdEAL8ohBf hT1BJM5te7HsWGqSMyQ0 OUVsw1DkKXo5LAgvDUBh D8ToSHK0Ru7+DQpzdHJl AQ6PGrCKMMkjCHj7 NTIgMCAwIDgzIDIwIDQ0 PV76OdY0OsVknL4RE2uu ElKbMULJar7VJN5TMMwY Nk4XCF8em3VaGKOq UBvltpUxJrbXSz6PYtbw HXSdQowIPno3Yl5EJF6m nTrdWSJ1Ex8+DQpzdHJl DR3KFsPVVmTQEFln SJBuEZShYl6SU3KnLgS1 IDExIFRmDQoxIDAgMCAx GUOlOMIaQB55OrB8AmNB pL0TAoCiWOG3GQEz YLLqUF09E7A1woisQwUk AHYpCG0SJ5neIqulVHEW Ws9DZSSBAnLRAa2KCO2d e1StMWYhCCdojwNf AfhXCe3ZXPMcIZSyLdmW Imf4Ok2QGK5cfDltMWmV Jb8RDbS3fcRhsL5QPrmJ UuANPkN5JfQbIFOu BQR8MPXiHSZ2DdZolG5Q U4ziPhPrJHULzn2ZOY4Q FXpUAh4DLX8kb2FpTAWn JLjnflKaRccEWo1N LTMpWIAlWhaRFmi3Qv7T CB2ufKllXJMnDf0+DQpz mFXsZE5INfPFBkSZBTtj CLScFVEfNw1XA7Fx YgC9IJJeLRQjYSdzJAPb SQSlNPKcVPKtHm8yLBPh XQczBVvnZXTeTXS1OTco naNjV2EqrEXcSMJu UOH8B9RuadDaGNrbVRBA Cw4QTQBVWoTWQv0YPR0p z4ZjSJKpNArbatCiFngO Cl1OXIGiLSAgSueL Dwi3Ov5JAE1csBxlULEO Mx0JYhP0glLveA2LLxmC MaPZCxP8EhEbKTLdCIIp XlStQTL9IkPmJpFc AXRbKRakEPGmGaI1SWQc DCkUMYjPUV8CUSicynPj wITnFY5QHdIfIY0hpb0L RKz0EuWdVO8hun0T VJcCG4XhaVKPSJAUk28x c69gttOvDSpyK89ra1IN aIEwGXZmYUV4aEIwDnsF Yi0MgXa4GHZpB5Uc CWJyURYjk5TrUv4WGZkk hVCiIEQ6Kr5ANV2ubHoh CiEzMDrPK6C9IpU0eFMp I0zfXRseFc5FqWBf BS9ZA4GaWMO3Zq9BtGY0 aUF1WQWSGt0YKsX0kuUt pH5OmKfnjIteNPtIP+z3 cjI9Jdv0xDm50s62 0KpuTGQ236OOzt2Xpfh+ 0aZEYTPP7LDQNDWYATSA XMBdEVEWBQURRXFBAfd9 E9cAGNFBPgxiWgp/ P3h9PdKAKiuDTGDZP/x/ 0aFyO1wHxDjQ77IbTB4i [facility] CenterBwBwSamar[facility] CenterB [facility] CenterB wcwF[facility]B [facility] gQOKbga75BpnfponB1nz vE5t8Yh0Td52+NGd a0/IQh9CZ4kZWLlzqk3P 2iZkzRVcvQy22jMAxxR3 a0uahcMatdlVOcDm+h3X xwkf53Y2K+vyi/of lqBeHAogWE4XTrfaVk38 nfABGs3IYC8zpeVEwmS/ c2dclH/GrcuHIibvqhSO EV3EtaKS16VDYbWC DiKhXILvpv80/bEmPNT3 TaEp9grXj9stA0wzutba zl427zQ9xfcV (more content not included)... Normal [facility] Auto Diffon 11-12-2022 Basophils/100 WBC (Bld) 0.5 % Normal 0.0-2.0 [facility] Comment on above: Order Comment: Order Added by Discern Expert. Performed By: #### 1 , [id number], [id number], [id number], [id number], [id number] #### [facility] [address] [place] [address] Basophils/Leukocytes Auto (Bld) [Pure # fraction] 0.0 E9/L Normal 0.0-0.2 [facility] Comment on above: Order Comment: Order Added by Discern Expert. Performed By: #### 1 , [id number], [id number], [id number], [id number], [id number] #### [facility] [address] [place] [address] Eosinophils/100 WBC (Bld) 1.2 % Normal 0.0-8.0 [facility] Comment on above: Order Comment: Order Added by Discern Expert. Performed By: #### 1 , [id number], 8132867, 5381161, [id number], [id number] #### [facility] [address] [place] [address] Eosinophils/Leukocytes Auto (Bld) [Pure # fraction] 0.1 E9/L Normal 0.0-0.5 [facility] Comment on above: Order Comment: Order Added by Discern Expert. Performed By: #### 1 , [id number], 0901956, [id number], [id number], [id number] #### [facility] [address] [place] [address] Lymphocytes/100 WBC (Bld) 31.4 % Normal 14.0-50.0 [facility] Comment on above: Order Comment: Order Added by Discern Expert. Performed By: #### 1 , [id number], 8221170, 9072819, [id number], [id number] #### [facility] [address] [place] [address] Lymphocytes/Leukocytes Auto (Bld) [Pure # fraction] 2.4 E9/L Normal 1.0-4.0 [facility] Comment on above: Order Comment: Order Added by Discern Expert. Performed By: #### 1 , [id number], [id number], 0116255, [id number], [id number] #### [facility] [address] [place] [address] Monocytes/100 WBC (Bld) 7.8 % Normal 4.0-14.0 [facility] Comment on above: Order Comment: Order Added by Discern Expert. Performed By: #### 1 , [id number], 0004906, 4468554, [id number], [id number] #### [facility] [address] [place] [address] Monocytes/Leukocytes Auto (Bld) [Pure # fraction] 0.6 E9/L Normal 0.2-1.0 [facility] Comment on above: Order Comment: Order Added by Discern Expert. Performed By: #### 1 , [id number], 8442284, 9372879, [id number], [id number] #### [facility] [address] [place] [address] Neutrophils/100 WBC (Bld) 59.1 % Normal 36.0-75.0 [facility] Comment on above: Order Comment: Order Added by Discern Expert. Performed By: #### 1 , [id number], 3783339, 3989930, [id number], [id number] #### [facility] [address] [place] [address] Neutrophils/Leukocytes Auto (Bld) [Pure # fraction] 4.5 E9/L Normal 2.0-7.5 [facility] Comment on above: Order Comment: Order Added by Discern Expert. Performed By: #### 1 , 1150983, 9393746, 7884904, [id number], [id number] #### [facility] [address] [place] [address] BB Draw & Holdon 02-18-2023 BB D&H Sample drawn for Blood Ba Normal [facility] Comment on above: Performed By: #### 1 , [id number], 1907733, 4480340, [id number], [id number] ####[facility] [address] [place] [address] [facility] Anion gap [Moles/Vol] 14 mmol/L Normal 6-16 [facility] Comment on above: Performed By: #### 1 , [id number], 5502660, 0835466, 26650535, [id number] ####[facility] [address] [place] [address] Calcium [Mass/Vol] 8.7 mg/dL Low 8.9-11.1 [facility] Comment on above: Performed By: #### 1 , [id number], 1155465, 6016956, 95232296, [id number] ####[facility] [address] [address] Chloride [Moles/Vol] 100 mmol/L Low 101-111 [facility] Comment on above: Performed By: #### 1 , [id number], 5637908, 6834468, 72267826, [id number] ####[facility] [address] [place] [address] CO2 [Moles/Vol] 24 mmol/L Normal 21-31 [facility] Comment on above: Performed By: #### 1 , [id number], 2737834, 6432958, 76428805, [id number] ####[facility] [address] [place] [address] Creatinine [Mass/Vol] 1.0 mg/dL Normal 0.5-1.3 [facility] Comment on above: Performed By: #### 1 , [id number], 3914410, 9436372, [id number], [id number] ####[facility] [address] [place] [address] Glucose [Mass/Vol] 97 mg/dL Normal 55-199 [facility] Comment on above: Result Comment: If t his glucose result represents a fasting glucose, interpretation should refer to the following reference range: 55-99 mg/dL Performed By: #### 1 , [id number], 0699619, 2048051, [id number], [id number] ####[facility] [address] [place] [address] Potassium [Moles/Vol] 4.0 mmol/L Normal 3.5-5.3 [facility] Comment on above: Performed By: #### 1 , [id number], 9462027, 0111946, 20043230, [id number] ####[facility] [address] [place] [address] Sodium [Moles/Vol] 134 mmol/L Low 135-145 [facility] Comment on above: Performed By: #### 1 , 8512898, 2013823, 1919974, 87752702, 90947129 ####[facility] [address] [place] [address] Urea nitrogen [Mass/Vol] 14 mg/dL Normal 5-21 [facility] Comment on above: Performed By: #### 1 , 3058749, 6932194, 2494815, 24125821, 22190090 ####[facility] [address] [place] [address] Urea nitrogen/Creatinine [Mass ratio] 14 No Units Normal 10-20 [facility] Comment on above: Performed By: #### 1 , 0578469, 7878733, 4273855, 79728138, [id number] ####[facility] [address] [place] [address] CBC w/ Auto Diffon 3 Erythrocyte distribution width (RBC) [Ratio] 15.0 % High 10.9-14.2 [facility] Comment on above: Performed By: #### 1 , 8913409, 9926573, 2309400, 33130197, 01247443 #### [facility] [address] [place] [address] Hematocrit (Bld) [Volume fraction] 42.8 % Normal 34.0-46.0 [facility] Comment on above: Performed By: #### 1 , [id number], 9163149, 2500433, 66873806, [id number] #### [facility] [address] [place] [address] Hemoglobin (Bld) [Mass/Vol] 14.4 g/dL Normal 12.0-16.0 [facility] Comment on above: Performed By: #### 1 , 0516835, 9162140, 5268341, 55167277, 91558749 #### [facility] [address] [place] [address] MCH (RBC) [Entitic mass] 36.2 pg High 27.0-34.0 [facility] Comment on above: Performed By: #### 1 , [id number], 1207683, 0496883, 65607180, 61380986 #### [facility] [address] [place] [address] MCHC (RBC) [Mass/Vol] 33.6 g/dL Normal 31.4-36.0 [facility] Comment on above: Performed By: #### 1 , [id number], 2722996, 0436534, 74242946, 13051172 #### [facility] [address] [place] [address] MCV (RBC) [Entitic vol] 107.7 fL High 80.0-100.0 [facility] Comment on above: Performed By: #### 1 , 2931070, 6429888, 9655660, 64183499, 71174752 #### [facility] [address] [place] [address] Platelet mean volume (Bld) [Entitic vol] 6.8 fL Normal 6.4-10.8 [facility] Comment on above: Performed By: #### 1 , 1552984, 2176190, 7747111, 86906131, 77027661 #### [facility] [address] [place] [address] Platelets (Bld) [#/Vol] 243.0 E9/L Normal 150.0-500.0 [facility] Comment on above: Performed By: #### 1 0016193, 2799180, 9957656, 3972482, 19233999, 83891639 #### [facility] [address] [place] [address] RBC (Bld) [#/Vol] 4.0 E12/L Low 4.3-5.9 [facility] Comment on above: Performed By: #### 1 3644327, 4755567, 5292527, 4982029, 40373558, 03215342 #### [facility] [address] [place] [address] WBC corrected for nucl RBC Auto (Bld) [#/Vol] 7.7 E9/L Normal 4.0-11.0 [facility] Comment on above: Performed By: #### 1 8912098, 1738521, 6899234, 2823526, 83679149, 86218027 #### [facility] [address] [place] [address] CHEMISTRYOrdered By: SYSTEM SYSTEM on 11-12-2022 Anion gap [Moles/Vol] 14 mmol/L Normal 6 - 16 mEq/L [facility] Remisol Calcium [Mass/Vol] 8.7 mg/dL Low 8.9 - 11. 1 mg/dL [facility] Rem[facility] Chloride [Moles/Vol] 100 mmol/L Low 101 - 1 11 mmol/L [facility] CO2 [Moles/Vol] 24 mmol/L Normal 21 - 31 mmol/L [facility] Remisol Creatinine [Mass/Vol] 1.0 mg/dL Normal 0.5 - 1.3 mg/dL [facility] Remisol GFR/1.73 sq M.predicted among blacks MDRD (S/P/Bld) [Vol rate/Area] mL/min/1.73 m2 Normal >=59mL/min/1 .73 m2 [facility] Chem S GFR/1.73 sq M.predicted among non-blacks MDRD (S/P/Bld) [Vol rate/Area] 59 mL/min/1.73 m2 Normal >=59mL/min/1 .73 m2 [facility] Chem S Glucose [Mass/Vol] 97 mg/dL Normal 55 - 199 mg/dL [facility] Remisol Potassium [Moles/Vol] 4.0 mmol/L Normal 3.5 - 5.3 mmol/L [facility] Remisol Sodium [Moles/Vol] 134 mmol/L Low 135 - 145 mmol/L [facility] Remisol Urea nitrogen [Mass/Vol] 14 mg/dL Normal 5 - 21 mg/dL [facility] Remisol Urea nitrogen/Creatinine [Mass ratio] 14 mg/mg Normal 10 - 20 [facility] Remisol COAGULATIONOrdered By: Davina Dai on 11-12-2022 aPTT Coag (PPP) [Time] 31.1 s Normal 25.1 - 36.5 second(s) [facility] Auto Coag INR Coag (PPP) [Relative time] 1.0 {INR} Invalid Interpretation Code [facility] Auto Coag PT Coag (PPP) [Time] 10.8 s Normal 9.4 - 1 2.5 second(s) [facility] Auto Coag CT 3D Reconstruction Separpatricio carrillo [facility] 11-12-2022 CT [facility] Ex[facility] Date/Time: 11/12/2022 09:01 EST Reason for Exam: Correlation to CT Report PLEASE SEE XR Ankle 3+ Views Left REPORT DATED: 11/12/2022. All CT scans at this facility use dose modulation, iterative reconstruction, and/or weight based dosing when appropriate to reduce radiation dose to as low as reasonably achievable. Ordering Provider: Nate Gavin FINAL REPORT Dictated: 11/12/2022 9:41 am Kevin Ayers MD Signed (Electronic Signature): 11/12/2022 9:41 am Signed by: Kevin yAers MD Transcribed by: CARISA Technologist: SHAUNA Colvin [facility] CT Lower Extremity w/o Contr ast Lefton 11-12-2022 CT Lower Extremity w/o Contrast Left Exam Date/Time: 11/12/2022 08:41 EST Reason for Exam: Fracture, ankle;Other (please specify) Report PLEASE SEE XR Ankle 3+ Views Left REPORT DATED: 11/12/2022. All CT scans at this facility use dose modulation, iterative reconstruction, and/or weight based dosing when appropriate to reduce radiation dose to as low as reasonably achievable. Ordering Provider: Nate Gavin FINAL REPORT Dictated: 11/12/2022 9:41 am Kevin Ayers MD Signed (Electronic Signature): 11/12/2022 9:41 am Signed by: Kevin Ayers MD Transcribed by: CARISA Technologist: AO [facility] Consent for Procedure/Surger yon 11-12-2022 Consent for Procedure/Surgery [id number] 66#[id number]:127 [facility] Consent for Treatmenton 10-26 Consent for Treatment [id number] 10 [id number] 4#1.00CD:127 [facility] Discharge Note-Nursingon Discharge Note-Nursing NATHANIEL MARCIAL :1975 Visit Date:11/12/2022 Inpatient Discharge Instructions Your Care Team Admitting Physician - Nate Gavin DO Reason for Your Visit L ankle ORIF Your Diagnosis Trimalleolar fracture of left ankle Ankle pain-swelling Fall Unspecified fracture of shaft of unspecified fibula, initial encounter for closed fracture Tests Performed Automated Diff BMP CBC w/ Auto Diff eGFR PT & PTT Ankle XR Complete Left CT 3D Reconstruction Separate Wkst CT Lower Extremity w/o Contrast Left XR Ankle 3+ Views Left This Is Your Medications List acetaminophen-oxycod one (Percocet 5 mg-325 mg oral tablet) albuterol (ProAir HFA 90 mcg/inh inhalation aerosol) albuterol (albuterol 0.083% Inh Teresita 3 mL) alprazolam (Xanax 0.5 mg Tab) aspirin (aspirin 81 mg Oral EC Tab) budesonide-formotero l (Symbicort) dicyclomine (Bentyl 20 mg Tab) docusate (Colace 100 mg Cap) ibuprofen (ibuprofen 600 mg Tab) lactulose (lactulose 10 g/15 mL Oral Syrup 20 gm/30 mL) magnesium hydroxide (Milk of Magnesia 8% oral suspension) metoprolol (metoprolol 50 mg ER Tab) omeprazole (Prilosec 40 mg Cap-EC) pantoprazole (Protonix 20 mg Tab-DR) quetiapine (Seroquel) [Image Removed: STOP]Stop taking these medications acetaminophen-hydroc odone (Starks 325 mg-5 mg oral tablet) Procedure History Appendectomy, x2, Colonoscopy, Hysterectomy, spine surgery for scoliosis. Discharge Vitals Temperature (Axillary) 36.4 ?C Heart Rate (Monitored) 70 Respiratory Rate 14 Blood Pressure 122/85 Height 149.86 cm Weight 65.4 kg BMI 29.12 What to do next Instructions From Your Doctor Event Name Event Result Wound Care Do not remove dressing Pharmacy Information [facility] Discharge Instructions Discharge Instructions New Follow Up Appointments after Discharge Follow Up with Nate Gavin When: Within 2 weeks Where: [address] [place] [address]- [place] (1) The Following Equipment Has Been Ordered for You Home Equipment, Arranged - Walker - front wheeled Medications What How Much When Instructions Next Dose New acetaminophen-oxycod one (Percocet 5 mg-325 mg oral tablet) See instructions 1-2 tab(s) Oral q4hr Pickup at [facility] #1005 resume New aspirin (aspirin 81 mg Oral EC Tab) 2 Tablets By Mouth Every day Duration: 30 Days Pickup at [facility]/pharmacy #[id number] resume New docusate (Colace 100 mg Cap) 1 Capsules By Mouth 2 times a day as needed for for constipation Pickup at [facility]/pharmacy #[id number] resume New ibuprofen (ibuprofen 600 mg Tab) 1 Tablets By Mouth Every 8 hours as needed for as needed for pain with food or milk Pickup at [facility] #6154 resume Unchanged albuterol (albuterol 0.083% Inh Teresita 3 mL) 0.083% - 3mL dosing units Inhalation Every 4 hours as needed for Wheezing resume Unchanged albuterol (ProAir HFA 90 mcg/ inh inhalation aerosol) 2 Puffs Inhalation 4 times a day as needed for Wheezing resume Unchanged alprazolam (Xanax 0.5 mg Tab) 1 Tablets By Mouth 3 times a day as needed for for anxiety prn resume Unchanged budesonide-formotero l (Symbicort) Inhalation 2 times a day resume Unchanged dicyclomine (Bentyl 20 mg Tab) 1 Tablets By Mouth 4 times a day as needed for As needed for pain or spasm resume Unchanged lactulose (lactulose 10 g/ 15 mL Oral Syrup 20 gm/ 30 mL) 15 Milliliter By Mouth 2 times a day Take with 8 ounces of water resume Unchanged magnesium hydroxide (Milk of Magnesia 8% oral suspension) 30 Milliliter By Mouth 2 times a day as needed for for constipation Take with 8 ounces of water resume Unchanged metoprolol (metoprolol 50 mg ER Tab) 1 Tablets By Mouth At bedtime resume Unchanged omeprazole (Prilosec 40 mg Cap-EC) 1 Capsules By Mouth Every day resume Unchanged pantoprazole (Protonix 20 mg Tab-DR) 1 Tablets By Mouth Every day resume Unchanged quetiapine (Seroquel) 75 Milligram By Mouth At bedtime resume Pharmacy Information [facility]/pharmacy #[id number]: [address], [place] [phone] What How Much When Comments Stop Taking acetaminophen-hydroc odone (Starks 325 mg-5 mg oral tablet) 1 Tablets By Mouth Every 6 hours as needed for for pain Test Results CBC BMP WBC: 7.7 E9/L (11/12/22 08:57:00) Glucose Lvl: 97 mg/dL (11/12/22 08:57:00) RBC: 4 E12/L Low (11/12/22 08:57:00) BUN: 14 mg/dL (11/12/22 08:57:00) HGB: 14.4 gm/dL (11/12/22 08:57:00) Creatinine: 1 mg/dL (11/12/22 08:57:00) Hct: 42.8 % (11/12/22 08:57:00) BUN/Creat Ratio: 14 (11/12/22 08:57:00) MCV: 107.7 fL High (11/12/22 08:57:00) Sodium Lvl: 134 mmol/L Low (11/12/22 08:57:00) MCH: 36.2 pg High (11/12/22 08:57:00) Potassium Lvl: 4 mmol/L (11/12/22 08:57:00) MCHC: 33.6 gm/dL (11/12/22 08:57:00) Chloride: 100 mmol/L Low (11/12/22 08:57:00) RDW: 15 % High (11/12/22 08:57:00) CO2: 24 mmol/L (11/12/22 08:57:00) Platelet: 243 E9/L (11/12/22 08:57:00) AGAP: 14 mEq (more content not included)... Normal [facility] ED Note-Physicianon 11-12-19 ED Note-Physician Basic Information Time Seen: Gloria Rosen M.D. 11/12/2022 07:01 Chief Complaint Pt. presents to the ed with c.o left ankle pain that started after she slipped from her bed. pt. states she was sitting on the side of the bed and had taken her night time meds when she became sleepy and slipped out of bed. pt. is alert and oriented x 4 History of Present Illness The patient is 47-year-old female who presented to the emergency room via EMS for left ankle injury. The patient states she was sitting at the edge of the bed with her right leg crossed over her left and she fell asleep at the edge of the bed and she started falling. She woke up to it, however she was not able to catch herself so entire weight of her body fell on the left ankle. The patient states she tried to ambulate and she felt a loud snap noise. The patient states she has not been able to put pressure on it after that. She points for the pain on the ankle area. Denies hitting her head. Denies any headache denies any neck pain. Review of Systems Additional ROS info: Except as noted in the above Review of Systems and in the History of Present Illness all other systems have been reviewed and are negative or noncontributory. Physical Exam Vitals & Measurements T: 36 ?C(Oral) HR: 80(Monitored) RR: 17 BP: 104/76 SpO2: 90% HT: 149.86 cm WT: 65.4 kg BMI: 29.12 General: alert, moderate distress Skin: warm, dry Head: no trauma, normocephalic Neck: Trachea midline Eye: normal conjunctiva, sclera clear Cardiovascular: regular rate and rhythm Respiratory: Lungs CTA, respirations non labored, breath sounds equal Chest wall: no deformity,notenderne ss Gastrointestinal: soft, non distended, no tenderness, no guarding Back: No tenderness, Normal ROM Extremities: mild deformity of the left ankle. There is ecchymosis on the medial aspect of the left ankle. Severe tenderness with palpation. Neurovascular is intact distally. No tenderness proximal fibula. Neurological: Alert and oriented, motor strength equal & normal bilaterally, sensation equal & normal bilaterally, speech normal, no focal neuro deficits Psychiatric: cooperative, affect appropriate for age, Medical Decision Making MEDICAL DECISION MAKING Number and Complexity of Problems Differential Diagnosis: [] [facility] Data External documents reviewed: [] My EKG interpretation: [] My CT interpretation: [] My X-ray interpretation: [] My Ultrasound interpretation: [] Decision rules/scores evaluated: [] Discussed with: [] Treatment and Disposition ED Course: The patient presented with fall. Level 3 trauma was called. The x-ray of the ankle shows trimalleolar fracture with slight dislocation of the tibia. The patient received Dilaudid for pain. The case was discussed with Dr. Gavin who came to the emergency room and evaluate patient in the ER and took her to the operating room. Shared decision making: [] Code status: [] Assessment/Plan 1. Trimalleolar fracture of left ankle (S82.852A: Displaced trimalleolar fracture of left lower leg, initial encounter for closed fracture) Unspecified fracture of shaft of unspecified fibula, initial encounter for closed fracture (S82.409A: Unspecified fracture of shaft of unspecified fibula, initial encounter for closed fracture) Orders: HYDROmorphone, 0.5 mg = 0.5 mL, Injection, IV Push, Once, Stop date 11/12/22 7:11:00 EST, STAT, Start date 11/12/22 7:11:00 EST, 11/12/22 7:11:00 EST NPO Diet XR Ankle 3+ Views Left Medications Administered Given Dilaudid 1 mg/mL injectable solution, 0.5 mg, IV Push Disposition Plan Patient Discharge Condition Stable Discharge Disposition Taken to the operating room Discharge Prescription List Prescriptions No active prescription medications Follow-up No qualifying data available Problem List/Past Medical History Ongoing Smoker Historical Asthma Endometriosis GERD (gastroesophageal reflux disease) Procedure/Surgical History Appendectomy, x2, Colonoscopy, Hysterectomy, spine surgery for scoliosis. Medications Inpatient No active inpatient medications Home albuterol 0.083% Inh Teresita 3 mL, 0.083% - 3mL dosing units, Inhalation, q4hr, PRN Bentyl 20 mg Tab, 20 mg= 1 tab(s), Oral, QID, PRN lactulose 10 g/15 mL Oral Syrup 20 gm/30 mL, 10 gm= 15 mL, Oral, BID Milk of Magnesia 8% oral suspension, 2.4 gm= 30 mL, Oral, BID, PRN Starks 325 mg-5 mg oral tablet, 1 tab(s), Oral, q6hr, PRN Prilosec 40 mg Cap-EC, 1 cap(s), Oral, Daily ProAir HFA 90 mcg/inh inhalation aerosol, 2 puff(s), Inhalation, QID, PRN Allergies Tape (rash) bacitracin vancomycin Social History Alcohol - Denies Alcohol Use, 01/01/2022 Substance Abuse - High Risk, 01/01/2022 Current, Marijuana, 01/01/2022 Tobacco - High Risk, 01/01/2022 10 or more cigarettes (1/2 pack or more)/day in last 30 days Tobacco Use:., 01/01/2022 Cigarettes, 11/11/2012 Lab Results N (more content not included)... Normal [facility] Comment on above: Result Comment: Elec tronically Signed By: Silas Lorenzo, Gloria Harding\.br\Date and Time Signed: 11/12/22 09:54 EST ED Traumaon 11-12-2022 ED Trauma [id number]#[id number]:127 Normal [facility] HEMATOLOGYOrdered By: SYSTEM SYSTEM on 11-12-2022 Basophils/100 WBC (Bld) 0.5 % Normal 0.0 - 2.0 % [facility] HemeAutoSS Basophils/Leukocytes Auto (Bld) [Pure # fraction] 0.0 E9/L Normal 0.0 - 0.2 E9/L [facility] HemeAutoSS Eosinophils/100 WBC (Bld) 1.2 % Normal 0.0 - 8.0 % [facility] HemeAutoSS Eosinophils/Leukocytes Auto (Bld) [Pure # fraction] 0.1 E9/L Normal 0.0 - 0.5 E9/L [facility] HemeAutoSS Lymphocytes/100 WBC (Bld) 31.4 % Normal 14.0 - 50.0 % [facility] HemeAutoSS Lymphocytes/Leukocytes Auto (Bld) [Pure # fraction] 2.4 E9/L Normal 1.0 - 4.0 E9/L [facility] HemeAutoSS Monocytes/100 WBC (Bld) 7.8 % Normal 4.0 - 14.0 % [facility] HemeAutoSS Monocytes/Leukocytes Auto (Bld) [Pure # fraction] 0.6 E9/L Normal 0.2 - 1.0 E9/L [facility] HemeAutoSS Neutrophils/100 WBC (Bld) 59.1 % Normal 36.0 - 75.0 % [facility] HemeAutoSS Neutrophils/Leukocytes Auto (Bld) [Pure # fraction] 4.5 E9/L Normal 2.0 - 7.5 E9/L [facility] HemeAutoSS HEMATOLOGYOrdered By: Stefan Dai on 11-12-2022 Erythrocyte distribution width (RBC) [Ratio] 15.0 % High 10.9 - 14.2 % [facility] HemeAutoSS Hematocrit (Bld) [Volume fraction] 42.8 % Normal 34.0 - 46.0 % [facility] HemeAutoSS Hemoglobin (Bld) [Mass/Vol] 14.4 g/dL Normal 12.0 - 16.0 gm/dL [facility] HemeAutoSS MCH (RBC) [Entitic mass] 36.2 pg High 27.0 - 34.0 pg [facility] HemeAutoSS MCHC (RBC) [Mass/Vol] 33.6 g/dL Normal 31.4 - 36.0 gm/dL [facility] HemeAutoSS MCV (RBC) [Entitic vol] 107.7 fL High 80.0 - 100.0 fL [facility] HemeAutoSS Platelet mean volume (Bld) [Entitic vol] 6.8 fL Normal 6.4 - 10.8 fL [facility] HemeAutoSS Platelets (Bld) [#/Vol] 243.0 E9/L Normal 150.0 - 500.0 E9/L [facility] HemeAutoSS RBC (Bld) [#/Vol] 4.0 E12/L Low 4.3 - 5.9 E12/L [facility] HemeAutoSS WBC corrected for nucl RBC Auto (Bld) [#/Vol] 7.7 E9/L Normal 4.0 - 11.0 E9/L [facility] HemeAutoSS Inpatient Patient Summaryon 11-12-2022 Inpatient Patient Summary [facility] [address], [place] [address] [facility] Clinical Discharge Instructions PERSON INFORMATION Name: NATHANIEL MARCIAL [facility] Admitting Physician: Attending Physician: Gloria Rosen M.D. PCP: Carol DESHPANDE, Gracy Graff Discharge Diagnosis: 1:Trimalleolar fracture of left ankle; Unspecified fracture of shaft of unspecified fibula, initial encounter for closed fracture Comment: PATIENT EDUCATION INFORMATION Instructions: [place] - Ankle Fracture Post Op (Custom) (Custom) Medication Leaflets: Follow up: With: Address: When: Nate Gavin [address] [place] [id number] Business (1) Within 2 weeks MEDICATION LIST New Medications [id number], [address], [place] [id number], [phone] acetaminophen-oxycod one (Percocet 5 mg-325 mg oral tablet) 1-2 tab(s) Oral q4hr. Refills: 0. aspirin (aspirin 81 mg Oral EC Tab) 2 Tablets By Mouth every day for 30 Days. Refills: 0. docusate (Colace 100 mg Cap) 1 Capsules By Mouth 2 times a day as needed for constipation. Refills: 0. ibuprofen (ibuprofen 600 mg Tab) 1 Tablets By Mouth every 8 hours as needed as needed for pain. with food or milk. Refills: 0. Medications to Continue with No Changes Other Medications albuterol (albuterol 0.083% Inh Teresita 3 mL) 0.083% - 3mL dosing units Inhalation every 4 hours as needed Wheezing. albuterol (ProAir HFA 90 mcg/inh inhalation aerosol) 2 Puffs Inhalation 4 times a day as needed Wheezing. dicyclomine (Bentyl 20 mg Tab) 1 Tablets By Mouth 4 times a day as needed As needed for pain or spasm. Refills: 0. lactulose (lactulose 10 g/15 mL Oral Syrup 20 gm/30 mL) 15 Milliliter By Mouth 2 times a day. Take with 8 ounces of water. Refills: 0. magnesium hydroxide (Milk of Magnesia 8% oral suspension) 30 Milliliter By Mouth 2 times a day as needed for constipation. Take with 8 ounces of water. Refills: 0. omeprazole (Prilosec 40 mg Cap-EC) 1 Capsules By Mouth every day. No Longer Take the Following Medications acetaminophen-hydroc odone (Starks 325 mg-5 mg oral tablet) 1 Tablets By Mouth every 6 hours as needed for pain. Refills: 0. Comment: Normal [facility] Interdisciplinary Note - Grady e Manageron 11-12-2022 Interdisciplinary Note - Inside [employer] Sales GARY called room and spoke with patient after getting a call that patient will dc today and needs a FWW. Patient had surgery today for ankle FX and wants to go home today. Patient verified has medicare and Medicaid insurance. She lives alone and form spouse but he will transport and may stay tonight with her. Discussed will need a RX for FWW and when that is obtained can provide a walker form [facility]. GARY also spoke with JULY Gupta and she has a page out to DR Nate Gavin for RX for a FWW. CRM will take a Jr FWW to floor for discharge after order obtained. Patient denies any other needs at discharge. GARY delivered FWW and RN aware and still trying to get RX for FWW [facility] Comment on above: Result Comment: Elec tronically Signed By: Donell MCDOWELL, Veronica\.br\Date and Time Signed: 11/12/22 16:50 EST Interdisciplinary Note - PTo n 11-12-2022 Interdisciplinary Note - PT Initial PT eval completed. Pt safe with gait and step with FWW utilizing NWB LLE. Pt will need FWW upon DC. No continued PT needs. Pt safe for home DC when medically stable. Normal [facility] Main OR PACU I Recordon 10-26 Main OR PACU I Record PACU Phase I Document Type FT Summary Primary Physician: Nate Gavin DO Finalized Date/Time: 11/12/22 12:13:36 Pt. Name: NATHANIEL MARCIAL [place]/Sex: 1975 Female Med Rec #: [id number] Physician: Nate Gavin DO Financial #: [id number] Pt. Type: O Room/Bed: [place] [address] Admit/Disch: 11/12/22 06:45:29 - Institution: Case Times PACU I FT Pre-Care Text: Identifies barriers to communication and implements measures to provide psychological support Develops individualized plan of care, and ensures continuity of care Maintains patient's dignity and privacy, and maintains patient confidentiality Identifies and reports philosophical, cultural, and spiritual beliefs and values Identifies individual values and wishes concerning care Implements aseptic technique, and administers prescribed antibiotic therapy and immunizing agents as ordered Evaluates postoperative tissue perfusion Implements thermoregulation measures, and monitors body temperature Evaluates postoperative respiratory status Evaluates postoperative cardiac status Evaluates postoperative neurological status Assesses pain control, collaborated in initiating patient-controlled analgesia and implements alternative methods of pain control Verifies allergies, administers prescribed medications and solutions, evaluates response to medications Entry 1 In PACU I 11/12/22 11:20:00 Discharge from PACU 11/12/22 11:50:00 I Outcomes Met? Yes Last Modified By: Hari MCDOWELL, Cheri Doran 11/12/22 12:13:25 Post-Care Text: The patient demonstrates knowledge of the expected response to the operative or invasive procedure The patient's care is consistent with the individualized perioperative plan of care The patient's right to privacy is maintained The patient's value system, lifestyle, ethnicity, and culture are considered, respected, and incorporated into the perioperative plan of care The patient participates in decisions affecting his or her perioperative plan of care The patient is free from signs and symptoms of infection The patient has wound/tissue perfusion consistent with or improved from baseline levels established preoperatively The patient is at or returning to normothermia at the conclusion of the immediate postoperative period The patient's respiratory function is consistent with or improved from baseline levels established preoperatively The patient's cardiovascular status is consistent with or improved from baseline levels established preoperatively The patient's cardiovascular status is consistent with or improved from baseline levels established preoperatively The patient demonstrates and/or reports adequate pain control throughout the perioperative period The patient received appropriate medication(s), safely administered during the perioperative period Acuity Level PACU I FT Entry 1 Start Time 11/12/22 11:20:00 Stop Time 11/12/22 11:50:00 Acuity Level Acuity Level I Last Modified By: Cheri Noriega RN 11/12/22 12:13:33 Finalized By: Cheri Noriega RN Document Signatures Signed By: Cheri Noriega RN 11/12/22 12:13 Normal [facility] Main OR Preoperative Recordo n 11-12-2022 Main OR Preoperative Record Holding Area Document Type FT Summary Primary Physician: Nate Gavin DO Finalized Date/Time: 11/12/22 10:25:18 Pt. Name: ANIKETNATHANIEL/Sex: 1975 Female Med Rec #: [id number] Physician: Financial #: [id number] Pt. Type: E Room/Bed: [facility]/ Admit/Disch: 11/12/22 06:45:29 - Institution: Case Times Holding FT Pre-Care Text: Verifies consent for planned procedure, identifies individual values and wishes concerning care, includes family members in perioperative teaching Secures patient's records' belongings, and valuables, maintains patient's dignity and privacy, and maintains patient confidentiality Entry 1 In Holding 11/12/22 09:37:00 Outcomes Met? Yes Last Modified By: Glenda Vora 11/12/22 10:23:32 Post-Care Text: The patient participates in decisions affecting his or her perioperative plan of care The patient's right to privacy is maintained Surgery Checklist FT Entry 1 Patient Birthday, ID Band Procedure History and Physical, Identification: Check, Patient Verification: Surgical Consent, With Participation Patient NPO after Midnight: Yes Date/Time: 11/12/22 09:37:00 Preop Results Labs Results Reviewed n/a Reviewed: Comments: Personal Items purses with contents Limitations: n/a Comment: inside Complaints of Pain: Yes Pain Comment: patient stated 10/10 pain Operative Site Yes Marked By: Marking: Location: left ankle Availability Equipment, Implants, Verified: X-Ray Does Patient Smoke Yes If Yes to Smoking. 1/2 pack a day Cigars or Cigarettes. How much per day? Patient states Yes Comment - Adult gale - family postop adult Supervision supervision available Case Cancelled in No Holding Area see comments below for reason Last Modified By: Glenda Vora 11/12/22 10:25:14 Finalized By: Glenda Vora Document Signatures Signed By: Glenda Vora 11/12/22 10:25 Normal [facility] Operative Reporton Operative Report Patient: NATHANIEL MARCIAL Age: 47 years Sex: Female : 1975 Associated Diagnoses: None Author: Nate Gavin DO DATE OF SURGERY: 11/12/2022 SURGEON: Nate Gavin D.O. SAND MIXER: Chan Gaytan CFA PREOPERATIVE DIAGNOSIS: Trimalleolar fracture/subluxation , left ankle POSTOPERATIVE DIAGNOSIS: Trimalleolar fracture/subluxation , left ankle PROCEDURE: 1. Open reduction internal fixation medial and lateral malleoli, left ankle 2. Physician use of intraoperative fluoroscopy 3. Application short leg fiberglass posterior splint ANESTHESIA: General ANESTHESIOLOGIST: Issac Lewis DO IMPLANTS: 1. Lateral malleolus: Arthrex titanium distal fibula plate with four 2.7 mm locking screws distally and four 3.5 mm cortical screws proximally, one 3.5 mm cortical screw outside the plate serving as a lag screw 2. Medial malleolus: Arthrex 4.0 mm partially threaded cannulated screws x 2 OPERATIVE INDICATIONS: Nathaniel is a 47-year-old female who fell out of her bed last night. She sustained the above injury and was brought to the emergency department by squad. She agreed to proceed with the above procedure after discussion of the risks, benefits, complications, and expectations. Please see hospital records for further details. PROCEDURE IN DETAIL: The correct operative site was identified and marked in the preoperative holding area. The patient was administered intravenous antibiotics in accordance with SCIP protocol. She was also administered IV TXA preoperatively. She was transported to the operating room and placed supine on the operating table. She was administered general anesthetic. After adequate anesthesia was obtained, a well-padded tourniquet was applied to the left upper thigh. The tourniquet was not inflated during the procedure. A small sandbag bump was placed under the patient's left hip and the left lower extremity was elevated on a padded ramp. The left lower extremity was prepped and draped in the usual sterile fashion. Surgical timeout was performed with all required personnel present. Attention was turned to the lateral malleolus. A longitudinal incision over the distal fibula was made. Dissection was carried down through the subcutaneous tissues. Hemostasis achieved along the way with the Bovie. The fracture site was exposed and periosteum was elevated at the fracture line to facilitate reduction. The fracture was reduced and held with a lobster claw reduction forceps. Reduction was checked with direct visualization, palpation, and large C arm fluoroscopy. A 3.5 mm drill bit was used to penetrate the near cortex along the anterior aspect of the distal fibula proximal to the fracture line. A 2.5 mm drill bit was used to penetrate the far cortex. The screw path was perpendicular to the fracture line. Measurement for the screw was taken and the 3.5 mm cortical screw was inserted. The reduction forceps was removed and the fracture reduction was maintained. A lateral x-ray was taken and the posterior malleolar fracture fragment was well aligned following placement of the lag screw. The fragment measured less than 20% of the articular surface. The distal fibula plate was then placed along the lateral cortex of the fibula and provisionally secured proximally distally with BB tacks. Position of the plate was checked with fluoroscopy. The locking drill guide was used to place 2 locking screws in the distal portion of the plate. The slotted hole in the proximal portion of the plate was then drilled eccentrically to provide further compression across the fracture. A cortical screw was inserted into the slotted hole. The BB tacks were removed. The remainder of the holes proximal to the fracture were drilled, measured, and filled with cortical screws. 2 more locking screws were then placed into the distal portion of the plate. Attention was then turned to the medial malleolus. A gently curved longitudinal incision over the medial aspect of the ankle was made. Hemostasis achieved with the Bovie. The medial malleolar fracture fragment was exposed and periosteum was elevated from the fragment as well as the distal tibia. The fracture was reduced and held with a large pointed reduction forceps. Reduction was checked with fluoroscopy. 2 parallel K wires were then drilled from the tip of the medial malleolus proximally across the fracture site. Position of the K wires was checked with fluoroscopy. The cannulated drill was then used over top of each K wire to penetrate the near cortex. The partially-threaded cannulated screws were inserted over the K wires and sequentially tightened. The reduction forceps was removed and the reduction was maintained. Final C-arm images were taken. The fractures, ankle mortise, and syndesmosis were well aligned. The wounds were irrigated. Deep tissue over the distal fibula plate was closed with 0 Vicryl. Deep subcutaneous tissue at both incisions was closed with 3-0 Monocryl. The skin was closed with juan j. 10 mL of 0.2 (more content not included)... Normal [facility] Comment on above: Result Comment: Elec tronically Signed By: Nate Gavin DO\.br\Date and Time Signed: 11/12/22 11:42 EST Outpatient Surgery Discharge Instructionon 11-12-2022 Outpatient Surgery Discharge Instruction [place] [id number] Patient Discharge Instructions PERSON INFORMATION Name: MARCIAL NATHANIEL Mcgill Date of : 1975 Current Date: 11/12/2022 09:42:20 [facility] Admitting Physician: Discharge Diagnosis: 1:Trimalleolar fracture of left ankle; Unspecified fracture of shaft of unspecified fibula, initial encounter for closed fracture NATHANIEL MARCIAL has been given the following list of follow-up instructions, prescriptions, and patient education materials: Wound Care Instructions: Do not remove dressing IF UNABLE TO CONTACT YOUR PHYSICIAN AND YOU FEEL IT IS AN EMERGENCY, GO TO THE NEAREST EMERGENCY ROOM OR CALL 911 ANIKET Pace SHANNON K, have received the attached patient education materials/instructio ns and have verbalized understanding: May we do a follow up call? Yes No I was present when discharge instructions were given Patient Signature Date Clinican/Nurse Signature Date Follow up: With: Address: When: Nate Romaine [place] [address] [facility] (1) Within 2 weeks Pharmacy Information: You may receive a survey from [employer] asking you to rate your care experience. Your feedback is important and will help us understand what we do well and how we can improve the quality of care we provide to you, your loved ones and our community. It?s an honor to serve you. Thank you for choosing [facility] HERE ARE THE MEDICATION CHANGES THAT OCCURRED DURING YOUR HOSPITAL STAY New Medications [id number], [address] [facility], [place] [id number], [phone] acetaminophen-oxycod one (Percocet 5 mg-325 mg oral tablet) 1-2 tab(s) Oral q4hr. Refills: 0. aspirin (aspirin 81 mg Oral EC Tab) 2 Tablets By Mouth every day for 30 Days. Refills: 0. docusate (Colace 100 mg Cap) 1 Capsules By Mouth 2 times a day as needed for constipation. Refills: 0. ibuprofen (ibuprofen 600 mg Tab) 1 Tablets By Mouth every 8 hours as needed as needed for pain. with food or milk. Refills: 0. Medications to Continue with No Changes Other Medications albuterol (albuterol 0.083% Inh Teresita 3 mL) 0.083% - 3mL dosing units Inhalation every 4 hours as needed Wheezing. albuterol (ProAir HFA 90 mcg/inh inhalation aerosol) 2 Puffs Inhalation 4 times a day as needed Wheezing. dicyclomine (Bentyl 20 mg Tab) 1 Tablets By Mouth 4 times a day as needed As needed for pain or spasm. Refills: 0. lactulose (lactulose 10 g/15 mL Oral Syrup 20 gm/30 mL) 15 Milliliter By Mouth 2 times a day. Take with 8 ounces of water. Refills: 0. magnesium hydroxide (Milk of Magnesia 8% oral suspension) 30 Milliliter By Mouth 2 times a day as needed for constipation. Take with 8 ounces of water. Refills: 0. omeprazole (Prilosec 40 mg Cap-EC) 1 Capsules By Mouth every day. No Longer Take the Following Medications acetaminophen-hydroc odone (Starks 325 mg-5 mg oral tablet) 1 Tablets By Mouth every 6 hours as needed for pain. Refills: 0. PATIENT EDUCATION INFORMATION Instructions: [place], [place] [facility] DISCHARGE INSTRUCTIONS: ANKLE FRACTURE POSTOPERATIVE ACTIVITY: Rest ? you should continue to rest the ankle for at least the next five to seven days to promote healing and decrease the possibility of swelling. Crutches or walker should be continued to be used with non-weight bearing as instructed in physical therapy. Walking should be only as necessary for the next several days when swelling may be prominent. To maximize comfort, try to keep the ankle elevated to at least the level of your heart. This should help decrease discomfort and swelling. Ice may be applied over the front of the cast. You may place a plastic bag over the cast, under the ice, so the moisture from the ice pack will not get the cast and dressing wet. Swelling and bruising are not uncommon after ankle fractures. The development or worsening of numbness and tingling may be a sign of excess swelling and should be promptly reported to your surgeon. Driving is legal ? but not recommended. It is legal for you to drive but driving is not advisable until at least your first office visit. You must be certain that you can maintain control of your vehicle in any and all situations before you make the decision to resume driving. MEDICATION: You will receive a prescription for pain medication to be used as needed, after your hospital discharge. Any pain medication can cause light-headedness, as well as stomach upset, therefore it is recommended that pain medication be taken with food. Do not operate machinery, drive, or drink alc (more content not included)... Normal [facility] PT & PTTon 11-12-2022 aPTT Coag (PPP) [Time] 31.1 second(s) Normal 25.1-36.5 [facility] Comment on above: Result Comment: Para meter 15 days - 4 weeks 1 - 5 months 6 - 11 months 1 - 5 years 6 - 10 years 11 - 17 years PTT Mean: 35.4 (27.6-45.6) Mean: 33.5 (24.8-40.7) Mean: 32.4 (25.1-40.7) Mean: 31.6 (24.0-39.2) Mean: 31.6 (26.9-38.7) Mean: 31.0 (24.6-38.4) Pediatric Reference ranges were obtained from a study by Shaun Beltran et al. prepared from 1437 samples obtained at 7 different centers using the same coagulation reagent and instrumentation as [facility]. Currently there are no coagulation studies available worldwide for children to 14 days, and no normal ranges. Heparin therapeutic range (represented by Anti-Factor Xa activity of 0.2 - 0.4 U/mL) corresponds to PTT of 56.6 - 109.0 sec. Performed By: #### 1 [id number], [id number], [id number], [id number] ####[facility] [id number] [place] [address] INR Coag (PPP) [Relative time] 1.0 {INR} Invalid Interpretation Code [facility] Comment on above: Result Comment: INR results are specifically intended to assess patients stabilized on long-term Anticoagulation therapy suggested INR?s ?Less Intensive Anticoagulation? 2.0 ? 3.0 Conventional Range 3.0 ? 4.5 Performed By: #### 1 [id number], [id number], [id number], [id number], [id number] ####[facility] [address] [place] [address] PT Coag (PPP) [Time] 10.8 second(s) Normal 9.4-12.5 [facility] Comment on above: Result Comment: 15 d ays - 4 weeks 1 - 5 months 6 -11 months 1- 5 years 6-10 years 11 -17 years Mean: 11.2 (9.5-12.6) Mean: 11.0 (9.7-12.8) Mean: 11.0 (9.8-13.0) Mean: 11.3 (9.9-13.4) Mean: 11.7 (10.0-14.6) Mean: 11.8 (10.0 - 14.1) Pediatric Reference ranges were obtained from a study by Shaun Beltran et al. prepared from 1437 samples obtained at 7 different centers using the same coagulation reagent and instrumentation as [facility]. Currently there are no coagulation studies available worldwide for children to 14 days, and no normal ranges. Performed By: #### 1 [id number], [id number], [id number], [id number], [id number] ####[facility] [address] [place] [address] Patient Education - Texton 0 11-12-2022 Patient Education - Text [place], [place] [facility] DISCHARGE INSTRUCTIONS: ANKLE FRACTURE POSTOPERATIVE ACTIVITY: Rest ? you should continue to rest the ankle for at least the next five to seven days to promote healing and decrease the possibility of swelling. Crutches or walker should be continued to be used with non-weight bearing as instructed in physical therapy. Walking should be only as necessary for the next several days when swelling may be prominent. To maximize comfort, try to keep the ankle elevated to at least the level of your heart. This should help decrease discomfort and swelling. Ice may be applied over the front of the cast. You may place a plastic bag over the cast, under the ice, so the moisture from the ice pack will not get the cast and dressing wet. Swelling and bruising are not uncommon after ankle fractures. The development or worsening of numbness and tingling may be a sign of excess swelling and should be promptly reported to your surgeon. Driving is legal ? but not recommended. It is legal for you to drive but driving is not advisable until at least your first office visit. You must be certain that you can maintain control of your vehicle in any and all situations before you make the decision to resume driving. MEDICATION: You will receive a prescription for pain medication to be used as needed, after your hospital discharge. Any pain medication can cause light-headedness, as well as stomach upset, therefore it is recommended that pain medication be taken with food. Do not operate machinery, drive, or drink alcohol while you are using the pain medication. Unfortunately, the pain medication will not eliminate pain, but hopefully will make the pain more tolerable. Please report any reactions to the pain medication promptly. FOLLOW-UP OFFICE VISIT: To minimize the chance of infection or wound healing problems, please keep the cast and bandage dry until the first dressing change in the office. Please report any problems, questions, or concerns prior to our office evaluation. Nate Gavin, DO [facility] [address] [place] [address] Reviewed: 12-31 [facility] Physician Orderon 11-12-2022 Physician Order [id number]# [id number] [facility] Pre-Arrival Noteon 3 Pre-Arrival Note Pre-Arrival Summary Name: , [facility] Current Date: 11/12/2022 06:51:26 EST Gender: Female Date of : Age: 47 Pre-Arrival Type: EMS ETA: 11/12/2022 07:05:00 EST Primary Care Physician: Presenting Problem: left leg pain Pre-Arrival User: Beatrice Jordan RN Referring Source: Location: [place] Completion Date/Time: 11/12/2022 06:34:00 [facility] Emergency Department Pre-Hospital Report Form Vital Signs: BP- 149/91, Pulse- 80, RR-22, SPO2-95% On RA Pre-Hospital Report: slipped out of bed, left leg deformity , 50mcg of Fentanyl and 4 mg of Zofran TUBE SPLICER via IV Treatment in Route: Response to Treatment: Misc. Issues: Normal [facility] Progress Note-Nurseon 2022 Progress Note-Nurse Unable to locate a foam block. Checked PACU, OR, ASU, and 3N for a foam block. Called [facility] [place] one, went to voicemail. This nurse relayed to primary floor nurse in report and POCT on unit to prop pt's left ankle on 2-3 pillows for elevation and support. Nurse and POCT verbalized understanding. Normal [facility] XR Ankle 3+ Views Lefton XR Ankle 3+ Views Left Exam Date/Time: 11/12/2022 10:57 EST Reason for Exam: Fracture Report IMPRESSION: INTEROPERATIVE FLUOROSCOPY. EXAM: XR Ankle 3+ Views Left DATE: 11/12/2022 CLINICAL HISTORY: Fracture. COMPARISON: Left ankle radiographs and CT from earlier 11/12/2022. Intraoperative fluoroscopy was provided for Dr. Gavin's left ankle ORIF procedures. A total of 0.97 Air Kerma (Ka, r) of fluoroscopy was used, with 3 fluoroscopic stills saved. No diagnostic images were obtained. Fracture fragment and hardware alignment appears anatomic on the images submitted. Please see Dr. Gavin's surgical notes for completeness. Ordering Provider: Nate Gavin FINAL REPORT Dictated: 11/12/2022 12:12 pm Kevin Ayers MD Signed (Electronic Signature): 11/12/2022 12:12 pm Signed by: Kevin Ayers MD Transcribed by: CARISA Technologist: MIGUEL ANGEL Technical Comments Radiation Dose: Ka,r in mGy = 1 Normal [facility] XR Ankle 3+ Views Left Exam Date/Time: 11/12/2022 07:39 EST Reason for Exam: Injury Report IMPRESSION: MILDLY DISPLACED TRIMALLEOLAR LEFT ANKLE FRACTURES WITH ANKLE MORTISE WIDENING. EXAM: XR Ankle 3+ Views Left, CT Lower Extremity w/o Contrast Left, CT 3D Reconstruction Separate Wkst DATE: 11/12/2022 CLINICAL HISTORY: Injury. COMPARISON: None available. TECHNIQUE: AP, mediolateral, medial and external oblique radiographs of the left ankle were obtained. Spiral imaging was obtained of the left ankle, with routine multiplanar reconstructions and volume rendered images on a three-dimensional workstation; as requested to evaluate fractures. All CT scans at this facility use dose modulation, iterative reconstruction, and/or weight based dosing when appropriate to reduce radiation dose to as low as reasonably achievable. FINDINGS: Mildly displaced oblique trimalleolar fractures are present. There is approximately 1.2 cm of lateral displacement of the medial malleolus, 1.2 cm posterolateral displacement of the lateral malleolar fracture fragment, and 1.2 cm lateral subluxation of the talus with respect to the tibial plafond. The posterior malleolar fracture fragment is displaced posteriorly approximately 1 cm and superiorly approximately 7 mm. There is no other fracture, dislocation, significant degenerative changes, organized hematoma, evidence of myotendinous disruption, worrisome bone destruction, radiodense foreign bodies, or findings of concern identified. Report Ordering Provider: Gloria Rosen FINAL REPORT Dictated: 11/12/2022 9:40 am Kevin Ayers MD Signed (Electronic Signature): 11/12/2022 9:40 am Signed by: Kevin Ayers MD Transcribed by: CARISA Technologist: Marii [facility] eGFRon 11-12-2022 GFR/1.73 sq M.predicted among blacks MDRD (S/P/Bld) [Vol rate/Area] mL/min/{1.73_m2} Normal >=59 [facility] Comment on above: Order Comment: Order added by Discern Expert. Result Comment: eGFR is race adjusted. AA=. Performed By: #### 1 [id number], [id number], [id number], [id number], [id number], [id number] ####[facility] [address] [place] [address] GFR/1.73 sq M.predicted among non-blacks MDRD (S/P/Bld) [Vol rate/Area] 59 mL/min/1.73 m2 Normal >=59 [facility] Comment on above: Order Comment: Order added by Discern Expert. Result Comment: Equipment Washer benito kidney disease could be indicated at eGFR's of less than 60 mL/min/1.73m2. Kidney failure is indicated at less than 15 mL/min/1.73m2. Performed By: #### 1 [id number], [id number], [id number], [id number], [id number], [id number] ####[facility] [address] [place] [address] Office Visiton 10-28-2022 Follow-up visit [id number] Nathaniel Marcial 1975 Date Provider Department Center 10/28/2022 [facility] Family History Problem Relation Age of Onset Heart failure Mother Heart failure Father Transient ischemic attack Father Family Status - Relation Status Age at Mother Father Level of Service:82379 OR OFFICE/OUTPATIENT ESTABLISHED LOW MDM 20-29 MIN Normal [facility] Office Visiton 08-03-2022 Follow-up visit [id number] Nathaniel Marcial 1975 Date Provider Department Center 08/03/2022 120-[facility] Family History Problem Relation Age of Onset Heart failure Mother Heart failure Father Transient ischemic attack Father Family Status - Relation Status Age at Mother Father Level of Service:69208 OR OFFICE/OUTPATIENT NEW MODERATE MDM 45-59 MINUTES Reason for Visit and Comments: Rapid Heart Rate [558665] Chest Pain [485277] Hypertension [050222] Normal [facility] CNOVon 07-28-2022 CNOV Office Visit (MARCO ANTONIO) NATHANIEL MARCIAL ([id number]) 1975 F Date Time Provider Department 07/28/22 10:30 AM RONAN CABELLO During your visit today, we recorded the following information about you: Temperature Pulse Respiration Blood pressure 97.8 degrees 90/minute 12/minute 125/89 Weight Height 57.2 kg 1.499 m Dalton Lee 07/28/2022 10:59 AM Addendum What is the reason for your visit today? Follow up Who is your referring physician? Dr. Cabello Are you having poor oral intake? NO Have you had unintentional weight loss of 15 lbs/7 Kg in the last 3-6 months? NO Bowels: regular or diarhea Wound: clean AND dry Temperature: No Drains: No Donna Donis Ms 07/28/2022 1:17 PM Signed GENERAL SURGERY CLINIC NOTE Nathaniel Marcial [id number] HPI: Nathaniel Marcial is a 46 year old female with multiple prior hernia repairs. Her last surgery was an intra-abdominal mesh excision on 04/16/2021. She complains today of two new abdominal bulges along her midline incision. The patient reports that the first bulge is just below her rib cage and the second is slightly to the left of the umbilicus and that they began to appear around 5 days ago. She states that the bulges are reducible and painful. She also reports chronic abdominal pain along her waistline as well as diarrhea (loose stools 1-4 times a day with no blood or pain with defecation). She reports newly diagnosed HTN and an echo finding that she can not recall but is following with a hand shaper in 1 week. O: BP 125/89 Pulse 90 Temp 36.6 ?C (97.8 ?F) (Temporal) Resp 12 Ht 149.9 cm (4' 11 ) Wt 57.2 kg (126 lb) BMI 25.45 kg/m? GENERAL: Well-appearing, anxious. CARDIAC: Regular rate and rhythm, no murmurs, rubs or gallops. LUNGS: Clear to auscultation bilaterally. ABDOMEN: Soft, nontender, nondistended. Midline incision is clean, dry and intact. Small, reducible hernia noticed with coughing slightly above the umbilicus. EXTREMITIES: Warm and dry A/P: Nathaniel Marcial is a 46 year old with multiple prior hernia repairs who reports two new midline hernias 1 year post op mesh removal. Options were discussed regarding watching and waiting vs repair with mesh. Patient was informed that if hernia were to be surgically repaired, the mesh would not be able to be removed this time. She was given an abdominal binder and she will reach out with her decision on how to proceed. Donna Donis Ms Jul 28, 2022 Ronan Cabello MD 07/28/2022 1:17 PM Signed Nathaniel Marcial is a 46 year old female who presents with recurrent hernia. She underwent open mesh removal for chronic pain back in March 2021. She now has developed a recurrent hernia, which is expected. We had a long discussion today regarding another operation. She states her hernia hurts, but also has pain from her previous mesh. I explained that this next surgery will be a bigger dissection, and that mesh wont be able to be removed. She wants to think about it prior to surgery. I have seen and evaluated the patient and discussed the case with the resident physician. I agree with the assessment and plan as documented in the resident?s note including a ROS that was reviewed and negative other than what was indicated in our notes. Patient consented for study? Not applicable Allergies As of Date: 07/28/2022 Noted Allergy Reaction BACITRACIN 07/06/2004 VANCOMYCIN 05/16/2004 Date Reviewed: 07/08/2021 Reviewed by: Maria R Lam Ma - Fully Assessed Reason for Visit: Established Patient [175] Primary Visit Diagnosis:Incisional hernia, without obstruction or gangrene [K43.2] Prescriptions as of 07/28/2022 - metoprolol succinate ER (TOPROL XL) 50 mg 24 hr tablet TAKE 1 TABLET BY MOUTH EVERY DAY FOR 90 DAYS - docusate sodium (COLACE) 100 mg capsule Take 1 capsule by mouth twice daily. - benztropine (COGENTIN) 1 mg tablet Take 1 tablet by mouth twice daily. - QUEtiapine (SEROQUEL) 300 mg tablet Take 1 tablet by mouth twice daily at 6AM and 9PM. - acetaminophen (TYLENOL) 500 mg tablet Take 2 tablets by mouth every 6 hours. - magnesium hydroxide (MOM) 400 mg/5 mL suspension Take 30 mL by mouth twice daily. - LINZESS 145 mcg capsule TAKE 1 CAPSULE DAILY AT LEAST 30 MINUTES BEFORE THE FIRST MEAL OF THE DAY ON AN EMPTY STOMACH - dicyclomine (BENTYL) 20 mg tablet Take 20 mg by mouth. - varenicline (CHANTIX) 1 mg tablet Take 1 mg by mouth twice daily. - plecanatide (TRULANCE) 3 mg tab Take by mouth. - gabapentin (NEURONTIN) 100 mg capsule Take 100 mg by mouth three times daily. - busPIRone (BUSPAR) 5 mg tablet Take 30 mg by mouth twice daily. - OXcarbazepine (TRILEPTAL) 600 mg tablet Take 600 mg by mouth twice daily. - OMEPRAZOLE (PRILOSEC ORAL) Take 40 mg by mouth once daily. Problem List As Of Date 07/28/2022 Noted Resolved Cellulitis [L03. (more content not included)... Normal [facility] OVA AND PARASITE EXAMINATION on 05-18-2022 Ova + Parasite Exam Final report Normal [facility] Comment on above: Result Comment: Thes e results were obtained using wet preparation(s) and trichrome stained smear. This test does not include testing for Cryptosporidium parvum, Cyclospora, or Microsporidia. Performed By: #### O VAPE #### [facility] [address] [place] [address] Dr. Jemima Paul Result 1 Comment Normal [facility] Comment on above: Result Comment: No o va, cysts, or parasites seen. . One negative specimen does not rule out the possibility of a parasitic infection. Performed By: #### O VAPE #### [facility] [address] [place] [address] Dr. Jemima Paul LACTOFERRIN FECAL QUANTon Lactoferrin, Fecal, Quant. <1.00 Normal 0.00-7.24 [facility] Comment on above: Result Comment: Re sults verified by repeat testing . Baseline (normal) 0.00 - 7.24 Elevated >7.24 . An elevated result is indicative of the presence of fecal lactoferrin, a marker of intestinal inflammation. A normal result does not exclude the presence of intestinal inflammation. The test can be used as an in vitro diagnostic aid to distinguish patients with active inflammatory bowel disease (IBD) from those with non-inflammatory irritable bowel syndrome (IBS). Performed By: #### L ACTFQ #### [facility] [address] [place] [address] Dr. Jemima Palu STOOL CULTUREon 05-16-2022 Campylobacter Culture Final report Normal [facility] Comment on above: Performed By: #### C XSTOOL #### [facility] [address] [place] [address] Dr. Jemima Paul E coli Shiga Toxin EIA Negative Normal Negative [facility] Comment on above: Performed By: #### C XSTOOL #### [facility] [address] [place] [address] Dr. Jemima Paul Result 1 Comment Normal [facility] Comment on above: Result Comment: No S almonella or Shigella recovered. Performed By: #### C XSTOOL #### [facility] [address] [place] [address] Dr. Jemima Paul Result Comment: No C ampylobacter species isolated. Salmonella/Shigella Screen Final report Normal [facility] Comment on above: Performed By: #### C XSTOOL #### [facility] [address] [place] [address] Dr. Jemima Paul C. DIFF PCRon 05-11-2022 C. DIFFICILE PCR Negative Normal NEGATIVE [facility] Comment on above: Performed By: #### C DIFPOC #### [facility] [address] [place] [address] Dr. Jemima Paul CBC AUTO DIFFon 03-17-2022 BASO # 0.1 103/ul Normal 0.0-0.1 [facility] Comment on above: Performed By: #### C BC #### [facility] [address] [place] [address] Dr. Jemima Paul Basophils/100 WBC (Bld) 1.0 % Normal 0.2-2.0 [facility] Comment on above: Performed By: #### C BC #### [facility] [address] [place] [address] Dr. Jemima Paul EO # 0.2 103/ul Normal 0.0-0.7 [facility] Comment on above: Performed By: #### C BC #### [facility] [address] [place] [address] Dr. Jemima Paul Eosinophils/100 WBC (Bld) 3.0 % Normal 0.9-7.0 [facility] Comment on above: Performed By: #### C BC #### [facility] [address] [place] [address] Dr. Jemima Paul Erythrocyte distribution width (RBC) [Ratio] 12.4 % Normal 11.0-15.0 [facility] Comment on above: Performed By: #### C BC #### [facility] [address] [address] [address] Jemima Paul Hematocrit (Bld) [Volume fraction] 43.4 % Normal 36.0-48.0 [facility] Comment on above: Performed By: #### C BC #### [facility] [address] [address] [address] Jemima Paul Hemoglobin (Bld) [Mass/Vol] 14.8 g/dL Normal 12.0-16.0 [facility] Comment on above: Performed By: #### C BC #### [facility] [address] [place] [address] Dr. Jemima Paul IG # 0.04 10e3/ul Critically high 0.00-0.03 [facility] [place] Comment on above: Performed By: #### C BC #### [facility] [address] [place] [address] Dr. Jemima Paul IG % 0.6 % Critically high 0.0-0.5 [facility] Comment on above: Performed By: #### C BC #### [facility] [address] [place] [address] Dr. Jemima Paul LYMPH # 3.1 103/ul Normal 1.2-3.8 [facility] Comment on above: Performed By: #### C BC #### [facility] [address] [place] [address] Dr. Jemima Paul Lymphocytes/100 WBC (Bld) 44.9 % Normal 20.5-60.0 [facility] Comment on above: Performed By: #### C BC #### [facility] [address] [place] [address] Dr. Jemima Paul MANUAL DIFF REQ NO Normal [facility] Comment on above: Performed By: #### C BC #### [facility] [address] [place] [address] Dr. Jemima Paul MCH (RBC) [Entitic mass] 36.2 pg Critically high 26.7-34.0 [facility] Comment on above: Performed By: #### C BC #### [facility] [address] [address] [address] Jemima Paul MCHC (RBC) [Mass/Vol] 34.1 g/dL Normal 29.9-35.2 [facility] Comment on above: Performed By: #### C BC #### [facility] [address] [address] [address] Jemima Paul MCV (RBC) [Entitic vol] 106.1 fL Critically high 81.0-99.0 [facility] Comment on above: Performed By: #### C BC #### [facility] [address] [place] [address] Dr. Jemima Paul MONO # 0.4 103/ul Normal 0.3-0.8 [facility] Comment on above: Performed By: #### C BC #### [facility] [address] [place] [address] Dr. Jemima Paul Monocytes/100 WBC (Bld) 6.2 % Normal 1.7-12.0 [facility] Comment on above: Performed By: #### C BC #### [facility] [address] [place] [address] Dr. Jemima Paul NEUT # 3.1 103/ul Normal 1.4-6.5 [facility] Comment on above: Performed By: #### C BC #### [facility] [address] [place] [address] Dr. Jemima Paul Neutrophils/100 WBC (Bld) 44.3 % Normal 43.0-75.0 [facility] Comment on above: Performed By: #### C BC #### [facility] [address] [place] [address] Dr. Jemima Paul Platelet mean volume (Bld) [Entitic vol] 8.3 fL Critically low 9.5-13.5 [facility] Comment on above: Performed By: #### C BC #### [facility] [address] [place] [address] Dr. Jemima Paul PLT 288 103/ul Normal 150-450 [facility] Comment on above: Performed By: #### C BC #### [facility] [address] [address] [address] Jemima Paul RBC 4.09 106/ul Critically low 4.20-5.40 [facility] Comment on above: Result Comment: TEAR DROP CELLS 3+, MACROCYTOSIS 3+ Performed By: #### C BC #### [facility] [address] [place], [place] [address] Dr. Jemima Paul WBC 7.0 103/ul Normal 4.0-11.0 [facility] Comment on above: Performed By: #### C BC #### [facility] [address] [address] ABD/PELV W CONon 03-17-20 CT ABD/PELV W CON EXAMINATION: CT ABD/PELV W CON HISTORY: GENERALIZED ABDOMINAL PAIN COMPARISON: 09/02/2021 TECHNIQUE: Helical CT images of the abdomen and pelvis with intravenous and oral contrast. Dose reduction techniques were achieved by using automated exposure control and/or adjustment of mA and/or kV according to patient size and/or use of iterative reconstruction technique. FINDINGS: TUBES AND IMPLANTS: Thoracic spinal hardware LOWER CHEST: Unremarkable ABDOMEN and PELVIS ABDOMINAL WALL AND SOFT TISSUES: Unremarkable. BONES: Multilevel degenerative changes of the spine. Levoconvex scoliosis. ARTERIES: Mild aortoiliac calcifications without aneurysm VEINS: Unremarkable. LYMPH NODES: Unremarkable. PERITONEUM/ RETROPERITONEUM: Unremarkable. BOWEL: Unremarkable. APPENDIX: Not identified, no inflammatory changes in its expected location LIVER: Hepatomegaly with probable steatosis GALLBLADDER: Unremarkable. BILE DUCTS: Not dilated SPLEEN: Unremarkable. PANCREAS: Unremarkable. ADRENALS: Unremarkable. KIDNEYS/ URETERS: Unremarkable. REPRODUCTIVE ORGANS: Uterus appears surgically absent URINARY BLADDER: Unremarkable. IMPRESSION: No evidence of acute intra-abdominal or intrapelvic process. Hepatomegaly with probable steatosis. Electronically authenticated by: HELENA ANDERSEN Date: 2022-03-17 00:46 Normal [facility] PROF CHEM 8 (BAS METB)on Anion gap [Moles/Vol] 14.6 mmol/L Normal [facility] Comment on above: Performed By: #### B MP #### [facility] [address] [address] [address] Jemima Paul Calcium [Mass/Vol] 8.6 mg/dL Normal 8.5-10.1 [facility] Comment on above: Performed By: #### B MP #### [facility] [address] [address] [address] Jemima Paul Chloride [Moles/Vol] 100 mmol/L Normal 98-107 [facility] Comment on above: Performed By: #### B MP #### [facility] [address] [address] [address] Jemima Paul CO2 [Moles/Vol] 24.3 mmol/L Normal 21.0-32.0 [facility] Comment on above: Performed By: #### B MP #### [facility] [address] [place] [address] Dr. Jemima Paul Creatinine [Mass/Vol] 0.99 mg/dL Normal 0.55-1.02 [facility] Comment on above: Performed By: #### B MP #### [facility] [address] [address] [address] Jemima Paul EGFR-AF MAURITIAN >60 Normal >=60 [facility] Comment on above: Performed By: #### B MP #### [facility] [address] [place] [address] Dr. Jemima Paul EGFR-NON AF MAURITIAN 60 mL/min/1.73m2 Normal >=60 [facility] Comment on above: Performed By: #### B MP #### [facility] [address] [address] [address] Jemima Paul Glucose [Mass/Vol] 108 mg/dL Critically high 74-106 [facility] Comment on above: Performed By: #### B MP #### [facility] [address] [address] [address] Jemima Paul Potassium [Moles/Vol] 3.9 mmol/L Normal 3.5-5.1 [facility] Comment on above: Performed By: #### B MP #### [facility] [address] [address] [address] Jemima Paul Sodium [Moles/Vol] 135 mmol/L Critically low 136-145 [facility] Comment on above: Performed By: #### B MP #### [facility] [address] [place], [place] [address] Dr. Jemima Paul Urea nitrogen [Mass/Vol] 11.0 mg/dL Normal 7.0-18.0 [facility] Comment on above: Performed By: #### B MP #### [facility] [address] [place], [place] [address] Dr. Jemima Paul Urea nitrogen/Creatinine [Mass ratio] 11.1 mg/mg Normal [facility] Comment on above: Performed By: #### B MP #### [facility] [address] [place], [place] [address] Dr. Jemima Paul Large Joint Arthro/Inj: R gl enohumeral [facility] Vital Signs Date Time Vital Sign Value Performing Clinician Facility 03-30-2023 10:59-0400 Body height 149.9 cm [employer] Work Phone: [facility] 03-30-2023 10:59-0400 Body weight 58.97 kg [employer] Work Phone: [facility] 01-31-2023 11:00-0400 Heart rate 89 /min Eren Ramires [facility] 01-31-2023 11:00-0400 Respiratory rate 16 /min Eren Jenningse [facility] 01-31-2023 10:04-0400 Hourly Rounding Eren Ramires [facility] 01-31-2023 10:04-0400 Promise to Return Eren Jenningse [facility] 01-31-2023 10:03-0400 Diastolic blood pressure 83 mm[Hg] Eren Jenningse [facility] 01-31-2023 10:03-0400 Heart rate 91 /min Eren Jenningse [facility] 01-31-2023 10:03-0400 Mean blood pressure 98 mm[Hg] Eren Ramires [facility] 01-31-2023 10:03-0400 Respiratory rate 20 /min Eren Ramires [facility] 01-31-2023 10:03-0400 SaO2% (BldA) [Mass fraction] 99 % Eren Jenningse [facility] 01-31-2023 10:03-0400 Systolic blood pressure 127 mm[Hg] Eren Ramires [facility] 01-31-2023 09:40-0400 Body temperature 98.24 [degF] Eren Ramires [facility] 01-31-2023 09:40-0400 Diastolic blood pressure 86 mm[Hg] Eren Ramires [facility] 01-31-2023 09:40-0400 Heart rate 94 /min Eren Ramires [facility] 01-31-2023 09:40-0400 Hourly Rounding Eren Ramires [facility] 01-31-2023 09:40-0400 Promise to Return Eren Ramires [facility] 01-31-2023 09:40-0400 Respiratory rate 18 /min Eren Ramires [facility] 01-31-2023 09:40-0400 SaO2% (BldA) [Mass fraction] 98 % Eren Ramires [facility] 01-31-2023 09:40-0400 Systolic blood pressure 133 mm[Hg] Eren Ramires [facility] 11-12-2022 17:25-0500 Hourly Rounding Nate Gavin [facility] 11-12-2022 17:25-0500 Promise to Return Nate Brown [facility] 11-12-2022 16:58-0500 Heart rate 70 /min Nate Brown [facility] 11-12-2022 16:58-0500 SaO2% (BldA) [Mass fraction] 97 % Nate Brown [facility] 11-12-2022 16:57-0500 Body temperature 97.52 [degF] Nate Brown [facility] 11-12-2022 16:57-0500 Diastolic blood pressure 85 mm[Hg] Nate Brown [facility] 11-12-2022 16:57-0500 Mean blood pressure 98 mm[Hg] Nate Brown [facility] 11-12-2022 16:57-0500 Systolic blood pressure 122 mm[Hg] Nate Brown [facility] 11-12-2022 16:25-0500 Hourly Rounding Nate Brown [facility] 11-12-2022 16:25-0500 Promise to Return Nate Brown [facility] 11-12-2022 16:00-0500 Respiratory rate 15 /min Nate Brown [facility] 11-12-2022 15:16-0500 Hourly Rounding Nate Brown [facility] 11-12-2022 15:16-0500 Promise to Return Nate Brown [facility] 11-12-2022 11:45-0500 Body temperature 97.34 [degF] Nate Brown [facility] 11-12-2022 11:45-0500 Diastolic blood pressure 85 mm[Hg] Nate Brown [facility] 11-12-2022 11:45-0500 Heart rate 79 /min Nate Brown [facility] 11-12-2022 11:45-0500 Mean blood pressure 93 mm[Hg] Nate Brown [facility] 11-12-2022 11:45-0500 Respiratory rate 14 /min Nate Brown [facility] 11-12-2022 11:45-0500 SaO2% (BldA) [Mass fraction] 96 % Nate [employer] [facility] 11-12-2022 11:45-0500 Systolic blood pressure 110 mm[Hg] Nate [employer] [facility] 11-12-2022 11:35-0500 Diastolic blood pressure 60 mm[Hg] Nate Brown [facility] 11-12-2022 11:35-0500 Heart rate 61 /min Nate Brown [facility] 11-12-2022 11:35-0500 Mean blood pressure 71 mm[Hg] Nate Brown [facility] 11-12-2022 11:35-0500 Respiratory rate 16 /min Nate Brown [facility] 11-12-2022 11:35-0500 Systolic blood pressure 92 mm[Hg] Nate Brown [facility] 11-12-2022 11:30-0500 Mean blood pressure 69 mm[Hg] Nate Brown [facility] 11-12-2022 11:30-0500 Respiratory rate 18 /min Nate Brown [facility] 11-12-2022 11:20-0500 Body temperature 97.34 [degF] Nate Gavin [facility] 11-12-2022 11:15-0500 Respiratory rate 11 /min Nate Gavin [facility] 11-12-2022 11:10-0500 Respiratory rate 13 /min Nate Gavin [facility] 11-12-2022 07:01-0500 Body temperature 96.8 [degF] Nate Gavin [facility] 11-12-2022 07:01-0500 Heart rate 73 /min Nate Gavin [facility] 11-12-2022 06:46-0500 Body temperature 96.8 [degF] Nate Gavin [facility] 11-12-2022 06:46-0500 Heart rate 69 /min Nate Gavin [facility] 07-28-2022 10:58-0400 Body height 149.9 cm Ronan Cabello MD Work Phone: [facility] 07-28-2022 10:58-0400 Body temperature 97.81 [degF] Ronan Cabello MD Work Phone: [facility] 07-28-2022 10:58-0400 Body weight 57.15 kg Ronan Cabello MD Work Phone: [facility] 07-28-2022 10:58-0400 Diastolic blood pressure 89 mm[Hg] Ronan Cabello MD Work Phone: [facility] 07-28-2022 10:58-0400 Heart rate 90 /min Ronan Cabello MD Work Phone: [facility] 07-28-2022 10:58-0400 Respiratory rate 12 /min Ronan Cabello MD Work Phone: [facility] 07-28-2022 10:58-0400 Systolic blood pressure 125 mm[Hg] Ronan Cabello MD Work Phone: [facility] 05-04-2022 14:00-0400 Body height 152.4 cm Gale Vasquez Other [employer] Other 05-04-2022 14:00-0400 Body mass index (BMI) [Ratio] 25.97 kg/m2 Gale Vasquez Other [employer] Other 05-04-2022 14:00-0400 Body weight 60.33 kg Gale Vasquez Other [employer] Other 05-04-2022 14:00-0400 Diastolic blood pressure 86 mm[Hg] Gale Vasquez Other [employer] Other 05-04-2022 14:00-0400 Respiratory rate 20 /min Gale Vasquez Other [employer] Other 05-04-2022 14:00-0400 Systolic blood pressure 130 mm[Hg] Gale Vasquez Other [employer] Other 03-31-2022 12:03-0400 Body temperature 98.06 [degF] [facility] 03-31-2022 12:03-0400 Diastolic blood pressure 89 mm[Hg] [facility] 03-31-2022 12:03-0400 Heart rate 109 /min [facility] 03-31-2022 12:03-0400 Respiratory rate 18 /min [facility] 03-31-2022 12:03-0400 SaO2% (BldA) [Mass fraction] 100 % [facility] 03-31-2022 12:03-0400 Systolic blood pressure 155 mm[Hg] [facility] 01-01-2022 19:52-0400 Diastolic blood pressure 77 mm[Hg] Kofi Gray [facility] 01-01-2022 19:52-0400 Heart rate 97 /min Kofi Gray [facility] 01-01-2022 19:52-0400 Respiratory rate 18 /min Kofi Gray [facility] 01-01-2022 19:52-0400 SaO2% (BldA) [Mass fraction] 97 % Kofi Gray [facility] 01-01-2022 19:52-0400 Systolic blood pressure 113 mm[Hg] Kofi Gray [facility] 01-01-2022 16:50-0400 Body temperature 98.42 [degF] Kofi Gray [facility] 01-01-2022 16:50-0400 Diastolic blood pressure 88 mm[Hg] Kofi Gray [facility] 01-01-2022 16:50-0400 Heart rate 126 /min Kofi Gray [facility] 01-01-2022 16:50-0400 Respiratory rate 18 /min Kofi Gray [facility] 01-01-2022 16:50-0400 SaO2% (BldA) [Mass fraction] 97 % Kofi Gray [facility] 01-01-2022 16:50-0400 Systolic blood pressure 153 mm[Hg] Kofi Gray [facility] Encounters Encounter Date Encounter Type Care Provider Facility Start: 08-30-2023 End: 08-31-2023 ambulatory PIT HAND DAVID LEON Facility:[facility] Start: 08-30-2023 End: 08-30-2023 Patient encounter procedure DAVID LEON [facility] Start: 08-29-2023 End: 08-29-2023 ambulatory DAVID Alejo LEON Not Available Start: 06-09-2023 ambulatory Jaspreet Cortez Facility:[facility] Start: 05-31-2023 End: 06-01-2023 ambulatory Gracy Medina Facility:[facility] Start: 05-31-2023 End: 05-31-2023 Patient encounter procedure Gracy Medina [facility] Start: 05-11-2023 Telephone encounter Sharita greenberg MD Work Phone: [facility] Comment on above: Schedule Surgery Patient Question (Of fering patient surgical date.) Start: 04-14-2023 End: 04-14-2023 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) (Primary Dx) Start: 04-07-2023 End: 04-07-2023 Emergency department patient visit Gracy Medina Facility:[facility] Start: 03-30-2023 End: 03-30-2023 ambulatory No Pcp [facility] Start: 03-30-2023 End: 03-30-2023 Patient encounter procedure Verónica Duarte PA-C Work Phone: Orthopaedics Comment on above: 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) (Primary Dx); Incomplete tear of right rotator cuff, unspecified whether traumatic; Biceps tendonitis on right Start: 03-27-2023 End: 03-27-2023 ambulatory SELF Facility:[facility] Start: 03-27-2023 End: 03-27-2023 Patient encounter procedure Aureliano Vann DPM Work Phone: Podiatry Comment on above: 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, subsequent encounter (Primary Dx); Osteoporosis, unspecified osteoporosis type, unspecified pathological fracture presence; PAD (peripheral artery disease) (HCC); Allodynia; Nicotine use disorder, F17.2 Start: 03-27-2023 End: 03-27-2023 Subsequent hospital visit by physician Orth General Xray A21 Radiology Comment on above: Pain [R52] Start: 03-08-2023 Orders Only No One (Historical) Ref erring Physician Comment on above: Pain (Primary Dx) Start: 02-22-2023 ambulatory BERNARDA CORTES Facility:[facility] Start: 02-06-2023 End: 02-07-2023 ambulatory DO Nate Gavin Facility:[facility] Start: 02-06-2023 End: 02-06-2023 Patient encounter procedure Nate Gavin [facility] Start: 01-31-2023 End: 01-31-2023 Emergency department patient visit Eren Keyla Facility:[facility] Start: 01-31-2023 End: 01-31-2023 Emergency department patient visit Eren Ramires [facility] Start: 01-11-2023 End: 01-18-2023 ambulatory UNKNOWN PROVIDER Facility:[facility] Start: 12-13-2022 End: 12-13-2022 ambulatory Sadiq Wilson Other [employer] Other Start: 12-13-2022 Telephone encounter Sadi[facility] Start: 11-15-2022 End: 11-16-[address] TK LEVI . Facility: Start: 11-12-2022 End: 11-12-2022 ambulatory DO Nate Gavin Facility:[facility] Start: 11-12-2022 End: 11-12-2022 Observation Nate Gavin [facility] Start: 10-28-2022 End: 10-28-2022 ambulatory LEIGHTON [facility] Start: 08-03-2022 End: 08-03-2022 ambulatory [facility] Start: 08-02-2022 End: 08-02-[address] WILL BENITEZ . Facility: Start: 07-28-2022 End: 07-29-2022 ambulatory GRACY MEDINA Facility:[facility] Start: 07-28-2022 End: 07-28-2022 Patient encounter procedure Ronan Cabello MD Work Phone: General Surgery Comment on above: Incisional hernia, w ithout obstruction or gangrene (Primary Dx) Start: 05-17-[address] AGUS LEON . Faci lity:[facility] Start: 05-11-2022 End: 05-12-2022 ambulatory GALE VASQUEZ JR Facility:[facility] Start: 05-04-2022 End: 05-04-2022 ambulatory Gale Vasquez Other [employer] Other Start: 05-04-2022 Office outpatient visit 25 minutes Gale Vasquez [facility] Start: 04-18-2022 End: 04-27-2022 ambulatory HIEN CAROL Facility:[facility] Start: 03-31-2022 End: 03-31-2022 Emergency department patient visit Gloria Rosen [facility] Start: 03-24-2022 End: 03-24-2022 Patient encounter procedure Gracy Prerna Carol [facility] Start: 03-16-2022 End: 03-17-2022 ambulatory HIEN CAROL Facility:[facility] Start: 01-01-2022 End: 01-01-2022 Emergency department patient visit Kofi Castellano [facility] Start: 03-29-2018 End: 03-30-2018 Ambulatory DEFAULT PHYSICIAN Facility:[facility] Procedures Date Procedure Procedure Detail Performing Clinician Start: 03-30-2023 Arthrocentesis aspir &/inj major jt/bursa w/o us Verónica Duarte PA-C Work Phone: Start: 03-27-2023 Radex ankle complete minimum 3 views Aureliano Estephania DPM Work Phone: Appendectomy Kofi Castellano x2 Kofi Castellano Colonoscopy Kofi Castellano Hysterectomy Kofi Castellano spine surgery for scoliosis Kofi Castellano Plan of Treatment Date Care Activity Detail Author Start: 04-18-2024 DIABETES SCREEN DIABETES SCREEN [facility] Start: 05-26-2023 Influenza vaccination [facility] Start: 09-25-2022 [facility] Start: 05-26-2022 Influenza vaccination INFLUENZA (#1) [facility] Start: 09-25-2021 DEPRESSION ASSESSMENT DEPRESSION ASS ESSMENT [facility] Start: 04-05-2021 COVID-19 VACCINE (3 - Booster for Pfizer series) COVID-19 VACCINE (3 - Booster for Pfizer series) [facility] Start: 04-05-2021 COVID-19 VACCINE (3 - Pfizer series) COVID-19 VACCINE (3 - Pfizer series) [facility] Start: 08-06-2020 PNEUMOCOCCAL (2 - PCV) PNEUMOCOCCAL (2 - PCV) [facility] Start: 2019 COLOGUARD (FIT-DNA) COLOGUARD (FIT-D NA) [facility] Start: 2019 Colonoscopy COLONOSCOPY [facility] Start: 2019 COLORECTAL CANCER SCREENING COLORECTAL CANCER SCREENING [facility] Start: [address] COLONOGRAPHY [facility] Start: 2019 FECAL OCCULT BLOOD FECAL OCCULT BLOO D [facility] Start: 2019 LIPID SCREEN LIPID SCREEN [facility] Start: 2019 SIGMOIDOSCOPY SIGMOIDOSCOPY [facility] Start: 2014 Mammography MAMMOGRAM [facility] Start: 2004 HPV TESTING HPV TESTING [facility] Start: 1995 PAP TESTING PAP TESTING [facility] Start: 1993 Urine microalbumin profile DTAP,TDAP,TD (1 - Tdap) [facility] Start: 1974 HEPATITIS B (1 of 3 - 3-dose series) HEPATITIS B (1 of 3 - 3-dose series) [facility] End: 03-27-2024 PVR LEG UNL VAS LAB PVR LEG UNL [facility] LAB Vascular Lab Routine PAD (peripheral artery disease) (HCC) 1 Occurrences starting 03/27/2023 until 03/27/2024 [facility] Work Phone: Comment on above: 1 Occurrences starti ng 03/27/2023 until 03/27/2024 End: 04-06-2024 XR ANKLE GENERAL 3V AP/LAT/OBL LEFT XR ANKLE GENERAL 3V AP/LAT/OBL LEFT Radiology Routine Pain 1 Occurrences starting 03/08/2023 until 04/06/2024 [facility] Work Phone: Comment on above: 1 Occurrences starti ng 03/08/2023 until 04/06/2024 End: 05-09-2024 XR SHOULDER GENERAL 3V OR MORE AP/TRUE AP/OTHER RIGHT XR SHOULDER GENERAL 3V OR MORE AP/TRUE AP/OTHER RIGHT Radiology Routine 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) 1 Occurrences starting 04/10/2023 until 05/09/2024 [facility] Work Phone: Comment on above: 1 Occurrences starti ng 04/10/2023 until 05/09/2024 XR SHOULDER GENERAL 3V OR MORE AP/TRUE AP/OTHER RIGHT XR SHOULDER GENERAL 3V OR MORE AP/TRUE AP/OTHER RIGHT Radiology Routine 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) 04/10/2023 12:[address] [facility] Work Phone: [facility] Immunizations Immunization Date Immunization Notes Care Provider Fa [facility] 02-08-2021 COVID-19 original vaccine, age 12+ yr, monovalent (PFIZER-BIONTECH - PURPLE TOP) Ronan Cabello MD Work Phone: [facility] 01-18-2021 COVID-19 original vaccine, age 12+ yr, monovalent (PFIZER-BIONTECH - PURPLE TOP) Ronan Cabello MD Work Phone: [facility] 08-06-2019 pneumococcal polysaccharide vaccine, 23 valent Ronan Cabello MD Work Phone: [facility] 06-10-2019 seasonal influenza, intradermal, preservative free Ronan Cabello MD Work Phone: [facility] 06-25-2015 influenza virus vacc ine, unspecified formulation Ronan Cabello MD Work Phone: [facility] 06-12-2015 influenza, seasonal, injectable Ronan Cabello MD Work Phone: [facility] Payers Date Payer Category Payer Self-pay 2021 [place] [id number] 2021-Present [phone] [address] [place] [address] Medicaid [id number] 2015 Medicare MEDICARE MEDICAR E A AND B [id number] 2015-Present [phone] [address] [address] [place] [address] Medicare [id number] 2003 Private Health Insurance [id number] 1974 Unknown [id number] 32 1974 Unknown [id number] [id number] 93 1974 Unknown [id number] 2.16.840.1.287747.3.579.2.5 93 1974 Unknown [id number] 2.16.840.1.246274.3.579.2.5 93 1974 Unknown [id number] 2.16.840.1.853102.3.579.2.5 93 1974 Unknown [id number] 2.16.840.1.744896.3.579.2.5 93 1974 Unknown [id number] 2.16.840.1.931304.3.579.2.5 93 1974 Unknown [id number] 2.16.840.1.555885.3.579.2.5 93 1974 Unknown [id number] 2.16.840.1.413959.3.579.2.1 259 1974 Unknown [id number] 2.16.840.1.173381.3.579.2.7 27 1974 Unknown [id number] 2.16.840.1.535718.3.579.2.7 27 1974 Unknown [id number] 2.16.840.1.003446.3.579.2.7 27 1974 Unknown [id number] 2.16.840.1.758209.3.579.2.7 27 1974 Unknown [id number] 2.16.840.1.647409.3.579.2.7 27 1959 Medicaid [id number] [id number] 1959 Medicaid [id number] 1959 Medicare [id number] [id number] Unknown Unknown [id number] [id number] 31 Unknown [id number] 31 Social History Date Type Detail Facility Start: 01-01-2022 Tobacco smoking status Heavy t obacco smoker (finding) [facility] Start: 03-27-2023 End: 03-30-2023 Sex Assigned At Female [facility] Start: 05-08-2018 End: 03-30-2023 Tobacco smoking status NHIS Occasional tobacco smoker [facility] Start: 05-08-2018 End: 03-30-2023 Tobacco use and exposure Smokeless tobacco non-user [facility] Start: 1975 Sex Assigned At Not on file [facility] Start: 07-18-2022 End: 07-28-2022 Exposure to SARS-CoV-2 (event) Not sure [facility] Start: 03-27-2023 End: 03-30-2023 History of Social function [facility] National Score (1-100), lower number is lower risk 87 [facility] Medical Equipment Procedure Code Equipment Code Equipment Origin al Text Equipment Identifier Dates Mesh Prolene Polypropylene 6x4in Surgical Patch Soft Flat Sterile Hernia - [id number] Start: 10-21-2015 ANKLE FRACTURE O RIF Brown DO, Nate A 11/12/22 Unknown Ankle L FDA Start: 11-12-2022 ANKLE FRACTURE O RIF Brown DO, Nate A 11/12/22 Unknown Ankle L FDA Start: 11-12-2022 ANKLE FRACTURE O RIF Brown DO, Nate A 11/12/22 Unknown Ankle L FDA Start: 11-12-2022 ANKLE FRACTURE O RIF Brown DO, Nate A 11/12/22 Unknown Ankle L FDA Start: 11-12-2022 ANKLE FRACTURE O RIF Brown DO, Nate A 11/12/22 Unknown Ankle L FDA Start: 11-12-2022 ANKLE FRACTURE O RIF Brown DO, Nate A 11/12/22 Unknown Ankle L FDA Start: 11-12-2022 ANKLE FRACTURE O RIF Brown DO, Nate A 11/12/22 Unknown Ankle L FDA Start: 11-12-2022 ANKLE FRACTURE O RIF Brown DO, Nate A 11/12/22 Unknown Ankle L FDA Start: 11-12-2022 ANKLE FRACTURE O RIF Brown DO, Nate A 11/12/22 Unknown Ankle L FDA Start: 11-12-2022 ANKLE FRACTURE O RIF Brown DO, Nate A 11/12/22 Unknown Ankle L FDA Start: 11-12-2022 ANKLE FRACTURE O RIF Brown DO, Nate A 11/12/22 Unknown Ankle L FDA Start: 11-12-2022 ANKLE FRACTURE O RIF Brown DO, Nate A 11/12/22 Unknown Ankle L FDA Start: 11-12-2022 ANKLE FRACTURE O RIF Brown DO, Nate A 11/12/22 Unknown Ankle L FDA Start: 11-12-2022 ANKLE FRACTURE O RIF Brown DO, Nate A 11/12/22 Unknown Ankle L FDA Start: 11-12-2022 ANKLE FRACTURE O RIF Brown DO, Nate A 11/12/22 Unknown Ankle L FDA Start: 11-12-2022 ANKLE FRACTURE O RIF Brown DO, Nate A 11/12/22 Unknown Ankle L FDA Start: 11-12-2022 ANKLE FRACTURE O RIF Brown DO, Nate A 11/12/22 Unknown Ankle L FDA Start: 11-12-2022 ANKLE FRACTURE O RIF Brown DO, Nate A 11/12/22 Unknown Ankle L FDA Start: 11-12-2022 ANKLE FRACTURE O RIF Brown DO, Nate A 11/12/22 Unknown Ankle L FDA Start: 11-12-2022 ANKLE FRACTURE O RIF Brown DO, Nate A 11/12/22 Unknown Ankle L FDA Start: 11-12-2022 ANKLE FRACTURE O RIF Brown DO, Nate A 11/12/22 Unknown Ankle L FDA Start: 11-12-2022 ANKLE FRACTURE O RIF Brown DO, Nate A 11/12/22 Unknown Ankle L FDA Start: 11-12-2022 ANKLE FRACTURE O RIF Brown DO, Nate A 11/12/22 Unknown Ankle L FDA Start: 11-12-2022 ANKLE FRACTURE O RIF Brown DO, Nate A 11/12/22 Unknown Ankle L FDA Start: 11-12-2022 ANKLE FRACTURE O RIF Brown DO, Nate A 11/12/22 Unknown Ankle L FDA Start: 11-12-2022 ANKLE FRACTURE O RIF Brown DO, Nate A 11/12/22 Unknown Ankle L FDA Start: 11-12-2022 ANKLE FRACTURE O RIF Brown DO, Nate A 11/12/22 Unknown Ankle L FDA Start: 11-12-2022 ANKLE FRACTURE O RIF Brown DO, Nate A 11/12/22 Unknown Ankle L FDA Start: 11-12-2022 ANKLE FRACTURE O RIF Brown DO, Nate A 11/12/22 Unknown Ankle L FDA Start: 11-12-2022 ANKLE FRACTURE O RIF Brown DO, Nate A 11/12/22 Unknown Ankle L FDA Start: 11-12-2022 ANKLE FRACTURE O RIF Brown DO, Nate A 11/12/22 Unknown Ankle L FDA Start: 11-12-2022 ANKLE FRACTURE O RIF Brown DO, Nate A 11/12/22 Unknown Ankle L FDA Start: 11-12-2022 ANKLE FRACTURE O RIF Brown DO, Nate A 11/12/22 Unknown Ankle L FDA Start: 11-12-2022 ANKLE FRACTURE O RIF Brown DO, Nate A 11/12/22 Unknown Ankle L FDA Start: 11-12-2022 ANKLE FRACTURE O RIF Brown DO, Nate A 11/12/22 Unknown Ankle L FDA Start: 11-12-2022 ANKLE FRACTURE O RIF Brown DO, Nate A 11/12/22 Unknown Ankle L FDA Start: 11-12-2022 ANKLE FRACTURE O RIF Brown DO, Nate A 11/12/22 Unknown Ankle L FDA Start: 11-12-2022 ANKLE FRACTURE O RIF Brown DO, Nate A 11/12/22 Unknown Ankle L FDA Start: 11-12-2022 ANKLE FRACTURE O RIF Brown DO, Nate A 11/12/22 Unknown Ankle L FDA Start: 11-12-2022 ANKLE FRACTURE O RIF Brown DO, Nate A 11/12/22 Unknown Ankle L FDA Start: 11-12-2022 Functional Status Date Assessment Result Facility 01-31-2023 Functional Status N/A [facility] 11-12-2022 Functional Status N/A [facility] 11-12-2022 Functional Status [facility] 03-31-2022 Functional Status N/A [facility] Clinical Notes 01-01-2022 to 08-30-2023 Telephone Encounter - Marcie Chou RN - 05/11/2023 12:46 PM EDTTelephone Encounter - Vinita Crabtree - 05/11/2023 10:34 AM Sharita Leigh MD - 04/10/2023 1:42 PM EDTPatient Instructions Note Date & Type Note Facility 08-30-2023 Evaluation + Plan note Diagnostic Tests PendingClostridium difficile by PCR 08/30/23 [facility] 05-11-2023 Miscellaneous Notes I spoke to patient to offer 05/18/23 right shoulder surgery date. Patient was tear full stating she cannot have surgery due to pain and swelling in her feet. Patient states she cannot bear weight. She said she had called Dr. Vann's office and did not get a return phone call. I did speak to their office and their nurse will be calling her back today. documented in this encounter [facility] 05-11-2023 Miscellaneous Notes Left VM and sent Practice Management e-Toolst message to patient to see if she wants to schedule shoulder surgery with Dr. Myers on 05/18. Waiting for call back documented in this encounter [facility] 04-14-2023 Note [facility] CARDIOLOGY PROGR ESS NOTE HPI: Nathaniel Marcial is a 47 y.o. female here for follow up. Patient here for follow up Holter monitor and pulmonary referral. She still has not followed up pulmonology or done PFTs. Patient states that she recently fractured her ankle and may need surgery. She states that she has episodes of chest pain on occasion. Chest pain occurs Both at rest and with exertion. She Endorses dyspnea on exertion. She denies any lower extreme edema, orthopnea, paroxysmal nocturnal dyspnea. No near-syncope or syncope Review of Systems Cardiovascular: Positive for chest pain and dyspnea on exertion. Respiratory: Positive for shortness of breath. Musculoskeletal: Positive for back pain and myalgias. Neurological: Positive for headaches and light-headedness. All other systems reviewed and are negative. Visit Vitals BP 147/90 (BP Location: Left arm, Patient Position: Sitting) Pulse 89 Ht 1.499 m (4' 11 ) Wt 59 kg (130 lb) SpO2 98% BMI 26.26 kg/m??? Smoking Status Every Day BSA 1.57 m??? Allergies Allergen Reactions Bacitracin Unknown Lamictal [Lamotrigine] Vancomycin Other Medications: Current Outpatient Medications on File Prior to Visit Medication Sig Dispense Refill alendronate (Fosamax) 70 mg tablet Take 70 mg by mouth once a week. ALPRAZolam (Xanax) 0.5 mg tablet Take 0.5 mg by mouth if needed in the morning, at noon, and at bedtime for anxiety. dicyclomine (Bentyl) 20 mg tablet Take by mouth before breakfast, before lunch, before evening meal, and at bedtime. methocarbamol (Robaxin) 750 mg tablet Take 750 mg by mouth in the morning, at noon, in the evening, and at bedtime. metoprolol succinate XL (Toprol-XL) 50 mg 24 hr tablet Take 50 mg by mouth in the morning. Do not crush or chew. pantoprazole (ProtoNix) 40 mg EC tablet Take 40 mg by mouth before breakfast. Do not crush, chew, or split. QUEtiapine (SEROquel) 50 mg tablet Take 50 mg by mouth at bedtime. Symbicort 160-4.5 mcg/actuation inhaler INHALE 2 PUFFS BY MOUTH TWICE A DAY *RINSE MOUTH AFTER USE* No current facility-administered medications on file prior to visit. Physical Exam: Constitutional: Appearance: Normal appearance. Without apparent distress, obese, chronically ill HENT: Head: Normocephalic and atraumatic. Nose: Nose normal. Mouth/Throat: Mouth: Mucous membranes are moist. Eyes: Extraocular Movements: Extraocular movements intact. Conjunctiva/sclera: Conjunctivae normal. Neck: Vascular: No JVD. Cardiovascular: Rate and Rhythm: Normal rate and regular rhythm. Pulses: Dorsalis pedis pulses are 3 on the right side and 3on the left side. Posterior tibial pulses are 3 on the right side and 3 on the left side. Heart sounds: Normal heart sounds, S1 normal and S2 normal. Pulmonary: Effort: Pulmonary effort is normal. Breath sounds: Scattered wheezes throughout lungs Abdominal: General: Bowel sounds are normal. Palpations: Abdomen is soft. Musculoskeletal: General: Normal range of motion. Cervical back: Normal range of motion. Right lower leg: No edema. Left lower leg: No edema. Skin: General: Skin is warm and dry. Capillary Refill: Capillary refill takes less than 2 seconds. Neurological: General: No focal deficit present. Mental Status: She is alert and oriented to person, place, and time. Psychiatric: Mood and Affect: Mood normal. Behavior: Behavior normal. Thought Content: Thought content normal. Judgment: Judgment normal. Labs: Last lab values have been reviewed CV Testing: Holter monitor 08/03/22 - sinus rhythm to sinus tachycardia, PVCs noted, Max heart rate 126, Min 85 bpm PVCs burden 0.07%, 1 occurrence of SVT A/P: -SVT: Patient denies any significant symptoms at this time. Continue beta-zeeshan -Dyspnea on exertion: Recommend PFTs. Recommend continuing with inhalers. However, given episodes of chest pain, prudent to rule out ischemia. Will order stress test in addition to echocardiogram. Stress test to rule out ischemia, echo to evaluate left ventricular ejection fraction, regional wall motion, and valvular function. -Palpitations: Improved, continue beta-zeeshan -Optimize medical management -Aggressive risk factor modification -Plan of care discussed with patient. All questions were answered. Patient voices understanding and is agreeable with current plan. -Patient was educated on red flag symptoms. Strict return precautions were provided. Patient verbalizes understanding -Follow-up in cardiology clinic Beth Guevara MD [facility] 04-14-2023 Note Patient here for 6 m o follow up SVT, palpitations, and DIAZ. 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 Still has chest pain, palpitations, and SOB. Continues to smoke over 1/2 PPD. Says she shattered her ankle a few weeks after she saw us in Oct 2022, and required surgery. Review of Systems Cardiovascular: Positive for chest pain and dyspnea on exertion. Respiratory: Positive for shortness of breath. Musculoskeletal: Positive for back pain and myalgias. Neurological: Positive for headaches, light-headedness and vertigo. All other systems reviewed and are negative. [facility] 04-10-2023 Note HNO ID: [id number] Author: Sharita Myers MD Service: ? Author Type: Physician Type: Progress Notes Filed: 04/10/2023 3:32 PM Note Text: SHOULDER INITIAL CONSULT SERVICE DATE: 04/10/2023 PCP: Gracy Medina MD REFERRING PROVIDER: No referring provider defined for this encounter. Consult requested for an opinion regarding the evaluation and treatment of the above. My final impression and recommendations will be communicated back to the requesting physician by way of the shared medical record or letter via [place] mail. CHIEF COMPLAINT: Right shoulder pain SUBJECTIVE HISTORY OF PRESENT ILLNESS: Nathaniel presents today for initial evaluation regarding right shoulder complaints. As you know she is a 47-year-old ttyu-iopw-[id number] female with complaints in her shoulder that started earlier this year in November or December. She states that she underwent an open reduction and internal fixation of a left ankle fracture after a fall on November 12, 2022. She has had a slow recovery from from the surgery and states that her right shoulder began to bother her during the recovery. She denies a specific trauma or injury but has had to use the arm more for weightbearing. She notes difficulty with reach activities, lifting activities, overhead activities, and symptoms at night. Her symptoms have significantly worsened over time. She did undergo a cortisone injection a week and a half ago without any relief and she presents for further discussion on management. Nathaniel has recently been transition into weightbearing as tolerated on her left leg in a cam boot. She is still using a scooter at times to get around. Nathaniel is 1/2 pack/day cigarette smoker. She has also been diagnosed with osteoporosis and is on medication for this. PROGRESSIVE SYMPTOMS: Pain affecting living situation/ADL's Pain impacting sleep or causing fatigue Pain limiting ability to stay fit and healthy, sports or recreational activity Pain worsened by overhead activity/reaching PREVIOUS TREATMENT(S): Modified Activity Aspiration Right Shoulder NECK COMPLAINTS: None ACTIVE PROBLEM LIST Cellulitis Abdominal Pain Nicotine use disorder, F17.2 Post-Operative State Incisional Hernia, Without Obstruction Or Gangrene PAST MEDICAL HISTORY Diagnosis Date Anxiety GERD (gastroesophageal reflux disease) Hernia, incisional Hypertension PAST SURGICAL HISTORY Procedure Laterality Date SECTION HX HYSTERECTOMY HX No family history on file. Social History Tobacco Use Smoking status: Some Days Smokeless tobacco: Never ALLERGIES Allergen Reactions Lamictal [Lamotrigi* Mental Status Change Bacitracin Vancomycin MEDICATIONS: ALPRAZolam (XANAX) 0.5 mg tablet Take 0.5 mg by mouth. budesonide-formoterol (SYMBICORT) 160-4.5 mcg/actuation inhaler INHALE 2 PUFFS BY MOUTH TWICE A DAY *RINSE MOUTH AFTER USE* metoprolol succinate ER (TOPROL XL) 50 mg 24 hr tablet TAKE 1 TABLET BY MOUTH EVERY DAY FOR 90 DAYS docusate sodium (COLACE) 100 mg capsule Take 1 capsule by mouth twice daily. benztropine (COGENTIN) 1 mg tablet Take 1 tablet by mouth twice daily. QUEtiapine (SEROQUEL) 300 mg tablet Take 1 tablet by mouth twice daily at 6AM and 9PM. acetaminophen (TYLENOL) 500 mg tablet Take 2 tablets by mouth every 6 hours. magnesium hydroxide (MOM) 400 mg/5 mL suspension Take 30 mL by mouth twice daily. LINZESS 145 mcg capsule TAKE 1 CAPSULE DAILY AT LEAST 30 MINUTES BEFORE THE FIRST MEAL OF THE DAY ON AN EMPTY STOMACH dicyclomine (BENTYL) 20 mg tablet Take 20 mg by mouth. varenicline (CHANTIX) 1 mg tablet Take 1 mg by mouth twice daily. plecanatide (TRULANCE) 3 mg tab Take by mouth. gabapentin (NEURONTIN) 100 mg capsule Take 100 mg by mouth three times daily. busPIRone (BUSPAR) 5 mg tablet Take 30 mg by mouth twice daily. OXcarbazepine (TRILEPTAL) 600 mg tablet Take 600 mg by mouth twice daily. OMEPRAZOLE (PRILOSEC ORAL) Take 40 mg by mouth once daily. REVIEW OF SYMPTOMS: GENERAL: Negative HEENT: Negative CARDIOVASCULAR: Negative RESPIRATORY: Negative GASTROINTESTINAL: Negative GENITOURINARY: Negative NEUROLOGIC: Negative SKIN: Negative ENDOCRINE: Negative EYES: Negative PSYCHIATRIC: Negative HEMATOLOGIC/IMMUNOLOGIC: Negative MUSCULOSKELETAL: See HPI OBJECTIVE There were no vitals taken for this visit. PHYSICAL EXAMINATION: Physical examination today of the right shoulder shows no atrophy. Range of motion testing shows: Passive forward elevation is to 150 on the right, compared to 170 on the left. Active forward elevation is to 150 on the right, compared to 170 on the left. Passive external rotation at the side is to 40 on the right, compared to 60 on the left. Active internal rotation is to the sacral levels on the right, compared to the mid thoracic levels on the left. Strength testing of the right rotator cuff shows 5/5 strength with resisted ex (more content not included)... [facility] 04-10-2023 Note HNO ID: [id number] Author: RT Aleida(R) Service: Radiology Author Type: Technologist Type: Progress Notes Filed: 04/11/2023 8:31 AM Note Text: Radiology Service Progress Note PATIENT NAME: Nathaniel Marcial DATE OF SERVICE: April 10, 2023 TIME: 12:25 PM PATIENT IDENTITY VERIFICATION COMPLETED USING TWO (2) IDENTIFIERS: Name and Date of confirmed by patient verbally. FALL SCREENING: Has the patient had 2 falls in the last year or 1 fall with injury or currently using an Ambulatory Assistive Device (Walker, Cane, Wheelchair, Crutches, etc.)? No PATIENT GENDER DATA: Female. status: : No status: NO. PATIENT RELEVANT IMPLANT DATA REVIEWED: Not Applicable RADIOLOGY DEPARTMENT: General X-ray: Exam(s) Completed: Upper Extremity X-Ray(s): Shoulder, AP / INTERNAL/ TRUE AP / AXILLARY right PERIPHERAL IV DATA: Not applicable SIGNED BY: RT Slim(R) April 10, 2023 12:25 PM [facility] 04-10-2023 History of Present illness Narrative SHOULDER INITIAL CONSULT SERVICE DATE: 04/10/2023 PCP: Gracy Medina MD REFERRING PROVIDER: No referring provider defined for this encounter. Consult requested for an opinion regarding the evaluation and treatment of the above. My final impression and recommendations will be communicated back to the requesting physician by way of the shared medical record or letter via US mail. CHIEF COMPLAINT: Right shoulder pain SUBJECTIVE HISTORY OF PRESENT ILLNESS: Nathaniel presents today for initial evaluation regarding right shoulder complaints. As you know she is a 47-year-old [id number] female with complaints in her shoulder that started earlier this year in November or December. She states that she underwent an open reduction and internal fixation of a left ankle fracture after a fall on November 12, 2022. She has had a slow recovery from from the surgery and states that her right shoulder began to bother her during the recovery. She denies a specific trauma or injury but has had to use the arm more for weightbearing. She notes difficulty with reach activities, lifting activities, overhead activities, and symptoms at night. Her symptoms have significantly worsened over time. She did undergo a cortisone injection a week and a half ago without any relief and she presents for further discussion on management. Nathaniel has recently been transition into weightbearing as tolerated on her left leg in a cam boot. She is still using a scooter at times to get around. Nathaniel is 1/2 pack/day cigarette smoker. She has also been diagnosed with osteoporosis and is on medication for this. PROGRESSIVE SYMPTOMS: Pain affecting living situation/ADL's Pain impacting sleep or causing fatigue Pain limiting ability to stay fit and healthy, sports or recreational activity Pain worsened by overhead activity/reaching PREVIOUS TREATMENT(S): Modified Activity Aspiration Right Shoulder NECK COMPLAINTS: None ACTIVE PROBLEM LIST Cellulitis Abdominal Pain Nicotine use disorder, F17.2 Post-Operative State Incisional Hernia, Without Obstruction Or Gangrene PAST MEDICAL HISTORY Diagnosis Date Anxiety GERD (gastroesophageal reflux disease) Hernia, incisional Hypertension PAST SURGICAL HISTORY Procedure Laterality Date SECTION HX HYSTERECTOMY HX No family history on file. Social History Tobacco Use Smoking status: Some Days Smokeless tobacco: Never ALLERGIES Allergen Reactions Lamictal [Lamotrigi* Mental Status Change Bacitracin Vancomycin MEDICATIONS: ALPRAZolam (XANAX) 0.5 mg tablet Take 0.5 mg by mouth. budesonide-formoterol (SYMBICORT) 160-4.5 mcg/actuation inhaler INHALE 2 PUFFS BY MOUTH TWICE A DAY *RINSE MOUTH AFTER USE* metoprolol succinate ER (TOPROL XL) 50 mg 24 hr tablet TAKE 1 TABLET BY MOUTH EVERY DAY FOR 90 DAYS docusate sodium (COLACE) 100 mg capsule Take 1 capsule by mouth twice daily. benztropine (COGENTIN) 1 mg tablet Take 1 tablet by mouth twice daily. QUEtiapine (SEROQUEL) 300 mg tablet Take 1 tablet by mouth twice daily at 6AM and 9PM. acetaminophen (TYLENOL) 500 mg tablet Take 2 tablets by mouth every 6 hours. magnesium hydroxide (MOM) 400 mg/5 mL suspension Take 30 mL by mouth twice daily. LINZESS 145 mcg capsule TAKE 1 CAPSULE DAILY AT LEAST 30 MINUTES BEFORE THE FIRST MEAL OF THE DAY ON AN EMPTY STOMACH dicyclomine (BENTYL) 20 mg tablet Take 20 mg by mouth. varenicline (CHANTIX) 1 mg tablet Take 1 mg by mouth twice daily. plecanatide (TRULANCE) 3 mg tab Take by mouth. gabapentin (NEURONTIN) 100 mg capsule Take 100 mg by mouth three times daily. busPIRone (BUSPAR) 5 mg tablet Take 30 mg by mouth twice daily. OXcarbazepine (TRILEPTAL) 600 mg tablet Take 600 mg by mouth twice daily. OMEPRAZOLE (PRILOSEC ORAL) Take 40 mg by mouth once daily. REVIEW OF SYMPTOMS: GENERAL: Negative HEENT: Negative CARDIOVASCULAR: Negative RESPIRATORY: Negative GASTROINTESTINAL: Negative GENITOURINARY: Negative NEUROLOGIC: Negative SKIN: Negative ENDOCRINE: Negative EYES: Negative PSYCHIATRIC: Negative HEMATOLOGIC/IMMUNOLOGIC: Negative MUSCULOSKELETAL: See HPI OBJECTIVE There were no vitals taken for this visit. PHYSICAL EXAMINATION: Physical examination today of the right shoulder shows no atrophy. Range of motion testing shows: Passive forward elevation is to 150 on the right, compared to 170 on the left. Active forward elevation is to 150 on the right, compared to 170 on the left. Passive external rotation at the side is to 40 on the right, compared to 60 on the left. Active internal rotation is to the sacral levels on the right, compared to the mid thoracic levels on the left. Strength testing of the right rotator cuff shows 5/5 strength with resisted external rotation at the side and 5/5 strength with resisted Masha's maneuver. There is pain with resisted Masha's maneuver. Lag signs are negative. Belly press testing is negative. There is pain with impingement maneuvers. There is pain at end-range motion. There is tenderness to palpation at the glenohumeral joint line. The right upper extremity is otherwise grossly neurovascularly intact to testing. Scapular examination is normal. RADIOGRAPHIC RESULTS: Right Evidence of Avascular Necrosis WITH collapse X-rays of the right shoulder taken today are available for review and show evidence of avascular necrosis of the humeral head with collapse. MRI of the right shoulder from February 14, 2023 is also available for review and also shows avascular necrosis of the humeral head with signs of fragmentation of the cartilage. There is no full-thickness tearing in the rotator cuff. 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 We reviewed her recent imaging which shows progressive collapse from the MRI she had in January and then her x-rays taken today. She does not have any obvious cause for the development of this, but we have discussed how this may have occurred in relation to the weightbearing she has been doing in her shoulder as well as her osteoporosis. Continued non-operative management would consist of activity modification as needed, oral anti-inflammatories as needed, repeat cortisone injections as needed, and physical therapy. Surgical intervention was discussed in the form of right shoulder arthroplasty and the expected post operative course was discussed at length. We discussed both right shoulder hemiarthroplasty and total shoulder arthroplasty based on the extent of glenoid involvement. At this time, due to the failure of non-operative management Nathaniel would like to proceed with right surgical intervention. We signed surgical consent in the office today and will determine a surgical date. We discussed the need to delay surgery for period of time as she is still recovering from her left ankle surgery and has not yet fully weightbearing without assistive devices. I will talk to her foot and ankle doctors about the timeline for this. She states that she will be getting a bone stimulator to help with healing of her fracture. Once we have a surgical date, I would like her to obtain a preoperative CAT scan study closer to surgery as she may still develop further collapse, for preoperative planning. Nathaniel is agreeable to this plan of care. If any questions or concerns arise, she should not hesitate to call. SIGNATURE: Sharita Myers MD PATIENT NAME: Nathaniel Marcial DATE: April 10, 2023 TIME: 1:48 PM PAGER: documented in this encounter [facility] 03-30-2023 Note HNO ID: [id number] Author: Corry Conroy Service: ? Author Type: ? Type: Progress Notes Filed: 03/30/2023 2:01 PM Note Text: POPULATION HEALTH NAVIGATION OUTREACH Action/FYI scheduled Patient Identified by Name and : YES, via phone Outreach Outcome/Action Spoke to patient / parent / legal guardian: Patient scheduled Did you use a PCP flex slot to schedule this appointment? N/A Reason for Outreach Care Gap or Scheduling/Wellness visits Payer: Payor: MEDICARE / Plan: MEDICARE A AND B / Product Type: Medicare / Care Gap Reviewed:: Specialty Scheduling Reminder: Reminder note to check Health Maintenance for items below Health Maintenance items due: HEPATITIS B(1 of 3 - 3-dose series) Never done DTAP,TDAP,TD(1 - Tdap) Never done PAP TESTING Never done HPV TESTING Never done MAMMOGRAM Never done LIPID SCREEN Never done COLORECTAL CANCER SCREENING Never done PNEUMOCOCCAL(2 - PCV) due on 08/06/2020 COVID-19 VACCINE(3 - Booster for Pfizer series) due on 04/05/2021 DEPRESSION ASSESSMENT Never done Navigation Signature: Corry Conroy March 30, 2023 2:00 PM [facility] 03-30-2023 Note Patient Outreach (NE TNAV) MARCIALNATHANIEL Carrillo ([id number]) 1975 F Date Time Provider Department 03/30/23 NO PCP [facility] During your visit today, we recorded the following information about you: Corry Conroy 03/30/2023 2:01 PM Signed POPULATION HEALTH NAVIGATION OUTREACH Action/FYI scheduled Patient Identified by Name and : YES, via phone Outreach Outcome/Action Spoke to patient / parent / legal guardian: Patient scheduled Did you use a PCP flex slot to schedule this appointment? N/A Reason for Outreach Care Gap or Scheduling/Wellness visits Payer: Payor: MEDICARE / Plan: MEDICARE A AND B / Product Type: Medicare / Care Gap Reviewed:: Specialty Scheduling Reminder: Reminder note to check Health Maintenance for items below Health Maintenance items due: HEPATITIS B(1 of 3 - 3-dose series) Never done DTAP,TDAP,TD(1 - Tdap) Never done PAP TESTING Never done HPV TESTING Never done MAMMOGRAM Never done LIPID SCREEN Never done COLORECTAL CANCER SCREENING Never done PNEUMOCOCCAL(2 - PCV) due on 08/06/2020 COVID-19 VACCINE(3 - Booster for Pfizer series) due on 04/05/2021 DEPRESSION ASSESSMENT Never done Navigation Signature: Corry Conroy March 30, 2023 2:00 PM Allergies As of Date: 03/30/2023 Noted Allergy Reaction LAMICTAL (LAMOTRIGINE) 03/30/2023 1 - Mental Status Change BACITRACIN 07/06/2004 VANCOMYCIN 05/16/2004 Date Reviewed: 03/30/2023 Reviewed by: JENNIFER Ayon - Fully Assessed Prescriptions as of 03/30/2023 - metoprolol succinate ER (TOPROL XL) 50 mg 24 hr tablet TAKE 1 TABLET BY MOUTH EVERY DAY FOR 90 DAYS - docusate sodium (COLACE) 100 mg capsule Take 1 capsule by mouth twice daily. - benztropine (COGENTIN) 1 mg tablet Take 1 tablet by mouth twice daily. - QUEtiapine (SEROQUEL) 300 mg tablet Take 1 tablet by mouth twice daily at 6AM and 9PM. - acetaminophen (TYLENOL) 500 mg tablet Take 2 tablets by mouth every 6 hours. - magnesium hydroxide (MOM) 400 mg/5 mL suspension Take 30 mL by mouth twice daily. - LINZESS 145 mcg capsule TAKE 1 CAPSULE DAILY AT LEAST 30 MINUTES BEFORE THE FIRST MEAL OF THE DAY ON AN EMPTY STOMACH - dicyclomine (BENTYL) 20 mg tablet Take 20 mg by mouth. - varenicline (CHANTIX) 1 mg tablet Take 1 mg by mouth twice daily. - plecanatide (TRULANCE) 3 mg tab Take by mouth. - gabapentin (NEURONTIN) 100 mg capsule Take 100 mg by mouth three times daily. - busPIRone (BUSPAR) 5 mg tablet Take 30 mg by mouth twice daily. - OXcarbazepine (TRILEPTAL) 600 mg tablet Take 600 mg by mouth twice daily. - OMEPRAZOLE (PRILOSEC ORAL) Take 40 mg by mouth once daily. Problem List As Of Date 03/30/2023 Noted Resolved Cellulitis [L03.90] 11/13/2015 Abdominal pain [R10.9] 04/16/2021 Nicotine use disorder, F17.2 [F17.200] 04/19/2021 Post-operative state [Z98.890] 04/19/2021 Incisional hernia, without obstruction or gangr*07/08/2021 Encounter Status:Closed by CORRY LIN on 03/30/23 [facility] 03-30-2023 History of Present illness Narrative POPULATION HEALTH NAVIGATION OUTREACH Action/FYI scheduled Patient Identified by Name and : YES, via phone Outreach Outcome/Action Spoke to patient / parent / legal guardian: Patient scheduled Did you use a PCP flex slot to schedule this appointment? N/A Reason for Outreach Care Gap or Scheduling/Wellness visits Payer: Payor: MEDICARE / Plan: MEDICARE A AND B / Product Type: Medicare / Care Gap Reviewed:: Specialty Scheduling Reminder: Reminder note to check Health Maintenance for items below Health Maintenance items due: HEPATITIS B(1 of 3 - 3-dose series) Never done DTAP,TDAP,TD(1 - Tdap) Never done PAP TESTING Never done HPV TESTING Never done MAMMOGRAM Never done LIPID SCREEN Never done COLORECTAL CANCER SCREENING Never done PNEUMOCOCCAL(2 - PCV) due on 08/06/2020 COVID-19 VACCINE(3 - Booster for Pfizer series) due on 04/05/2021 DEPRESSION ASSESSMENT Never done Navigation Signature: Corry Conroy March 30, 2023 2:00 PM documented in this encounter [facility] 03-30-2023 Note HNO ID: [id number] Author: Verónica Duarte PA-C Service: ? Author Type: Physician Magnet Maker Type: Progress Notes Filed: 03/30/2023 12:43 PM Note Text: SERVICE DATE: March 30, 2023 PCP: Gracy Medina MD, MD Consult requested by Dr. Gracy Medina for an opinion regarding chief complaint as stated below. My final impression and recommendations will be communicated back to the requesting physician by way of the shared medical record or letter via [place] mail. Subjective Patient ID: Nathaniel is a 47 year old LHD female. She suffered a fall on 11/12/22 and injured left ankle where suffered an ankle fracture that required ORIF of her left ankle that day. She is currently in a walking boot. She has suffered 4 falls since the surgery. States that when she fell on 11/12/22 in her bedroom she states that she called 911 and the police and fire had to break open her door. They replaced the door with a new bolt but had to consistently use her right shoulder to open her door. She feels that the repetitive motion of her having to open the door with her right shoulder contributed to her pain and limited motion. She noticed pain and has had limited motion since this incident. She has been struggling with right shoulder pain for the past 4 months. She has limited range of motion. She rates the pain 8/10. She had seen Dr. Nate Gavin with [facility] in [place] and ordered a MRI of her shoulder from 02/14/23 which showed findings of the medial humeral head as detailed likely representing AVN or rapid destructive arthrosis secondary to a subchondral insufficiency fracture. Low grade instrasubstance tear of the distal superior fibers of subscapularis tendon. Mild biceps tendinosis. She is taking some Vicodin as needed for pain. Chief Complaint: Patient presents with: Right Shoulder - New, Pain, Swelling PAIN EVALUATION 03/30/2023 1054 Pain Level: 8 Pain Location: Shoulder-Right Description: Aching;Burning;Cramping;Dull;Itch ing;Radiating;Sharp;Shooting;Sore ;Spasm;St abbing;Stiffness;Throbbing;Tightn ess Duration Amount of Time: -- 1.5 - 2 months Duration Units: Months Frequency: Continuous Intervention/Comfort measure: Medication;Reposition;Cold;Heat HPI TREATMENTS PRIOR TO INITIAL CONSULT: Oral NSAIDS Review of Systems ACTIVE PROBLEM LIST Cellulitis Abdominal Pain Nicotine use disorder, F17.2 Post-Operative State Incisional Hernia, Without Obstruction Or Gangrene PAST MEDICAL HISTORY Diagnosis Date Anxiety GERD (gastroesophageal reflux disease) Hernia, incisional Hypertension PAST SURGICAL HISTORY Procedure Laterality Date SECTION HX HYSTERECTOMY HX No family history on file. Social History Tobacco Use Smoking status: Some Days Smokeless tobacco: Never ALLERGIES Allergen Reactions Lamictal [Lamotrigi* Mental Status Change Bacitracin Vancomycin MEDICATIONS: metoprolol succinate ER (TOPROL XL) 50 mg 24 hr tablet TAKE 1 TABLET BY MOUTH EVERY DAY FOR 90 DAYS docusate sodium (COLACE) 100 mg capsule Take 1 capsule by mouth twice daily. benztropine (COGENTIN) 1 mg tablet Take 1 tablet by mouth twice daily. QUEtiapine (SEROQUEL) 300 mg tablet Take 1 tablet by mouth twice daily at 6AM and 9PM. acetaminophen (TYLENOL) 500 mg tablet Take 2 tablets by mouth every 6 hours. magnesium hydroxide (MOM) 400 mg/5 mL suspension Take 30 mL by mouth twice daily. LINZESS 145 mcg capsule TAKE 1 CAPSULE DAILY AT LEAST 30 MINUTES BEFORE THE FIRST MEAL OF THE DAY ON AN EMPTY STOMACH dicyclomine (BENTYL) 20 mg tablet Take 20 mg by mouth. varenicline (CHANTIX) 1 mg tablet Take 1 mg by mouth twice daily. plecanatide (TRULANCE) 3 mg tab Take by mouth. gabapentin (NEURONTIN) 100 mg capsule Take 100 mg by mouth three times daily. busPIRone (BUSPAR) 5 mg tablet Take 30 mg by mouth twice daily. OXcarbazepine (TRILEPTAL) 600 mg tablet Take 600 mg by mouth twice daily. OMEPRAZOLE (PRILOSEC ORAL) Take 40 mg by mouth once daily. Allergies, medications, past surgical history, family history and past medical history were reviewed per this encounter. Objective Ortho Exam Examination of the right shoulder reveals the skin to be clean, dry and intact. There is no surrounding erythema or ecchymoses. There is tenderness palpation of the right bicipital groove. No particular tenderness over the right AC joint. Active forward flexion in the right shoulder is to 140 degrees. Passive forward flexion to 160 degrees. External rotation with the arm in neutral position 40 degrees. Internal rotation to lower lumbar levels. Rotator cuff exam is notable for 5/5 strength. Negative belly press test. Positive speeds test. Positive Chilton's test. Positive impingement signs. Positive Neer sign. Neurovascular intact distally with 2+ radial pulses bilaterally. Last XR Shoulder - Impression Only No resulted procedures found. X-rays right shoulder 01/19/23: AVN right hum (more content not included)... [facility] 03-30-2023 Instructions Verónica Duarte PA-C - 03/30/2023 11:38 AM EDT SHAN[address] Dr. [phone] ([place]) PT: [phone] documented in this encounter [facility] 03-30-2023 History of Present illness Narrative Associated Order(s): Large Joint Arthro/Inj: R glenohumeral Post-Procedure Diagnose(s): 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); Biceps tendonitis on right Images from the original note were not included. SERVICE DATE: March 30, 2023 PCP: Gracy Medina MD, MD Consult requested by Dr. Gracy Medina for an opinion regarding chief complaint as stated below. My final impression and recommendations will be communicated back to the requesting physician by way of the shared medical record or letter via [place] mail. Subjective Patient ID: Nathaniel is a 47 year old LHD female. She suffered a fall on 11/12/22 and injured left ankle where suffered an ankle fracture that required ORIF of her left ankle that day. She is currently in a walking boot. She has suffered 4 falls since the surgery. States that when she fell on 11/12/22 in her bedroom she states that she called 911 and the police and fire had to break open her door. They replaced the door with a new bolt but had to consistently use her right shoulder to open her door. She feels that the repetitive motion of her having to open the door with her right shoulder contributed to her pain and limited motion. She noticed pain and has had limited motion since this incident. She has been struggling with right shoulder pain for the past 4 months. She has limited range of motion. She rates the pain 8/10. She had seen Dr. Nate Gavin with [facility] in [place] and ordered a MRI of her shoulder from 02/14/23 which showed findings of the medial humeral head as detailed likely representing AVN or rapid destructive arthrosis secondary to a subchondral insufficiency fracture. Low grade instrasubstance tear of the distal superior fibers of subscapularis tendon. Mild biceps tendinosis. She is taking some Vicodin as needed for pain. Chief Complaint: Patient presents with: Right Shoulder - New, Pain, Swelling PAIN EVALUATION 03/30/2023 1054 Pain Level: 8 Pain Location: Shoulder-Right Description: Aching;Burning;Cramping;Dull;Itch ing;Radiating;Sharp;Shooting;Sore ;Spasm;Stabbing;Stiffness;Throbbi ng;Tightness Duration Amount of Time: -- 1.5 - 2 months Duration Units: Months Frequency: Continuous Intervention/Comfort measure: Medication;Reposition;Cold;Heat HPI TREATMENTS PRIOR TO INITIAL CONSULT: Oral NSAIDS Review of Systems ACTIVE PROBLEM LIST Cellulitis Abdominal Pain Nicotine use disorder, F17.2 Post-Operative State Incisional Hernia, Without Obstruction Or Gangrene PAST MEDICAL HISTORY Diagnosis Date Anxiety GERD (gastroesophageal reflux disease) Hernia, incisional Hypertension PAST SURGICAL HISTORY Procedure Laterality Date SECTION HX HYSTERECTOMY HX No family history on file. Social History Tobacco Use Smoking status: Some Days Smokeless tobacco: Never ALLERGIES Allergen Reactions Lamictal [Lamotrigi* Mental Status Change Bacitracin Vancomycin MEDICATIONS: metoprolol succinate ER (TOPROL XL) 50 mg 24 hr tablet TAKE 1 TABLET BY MOUTH EVERY DAY FOR 90 DAYS docusate sodium (COLACE) 100 mg capsule Take 1 capsule by mouth twice daily. benztropine (COGENTIN) 1 mg tablet Take 1 tablet by mouth twice daily. QUEtiapine (SEROQUEL) 300 mg tablet Take 1 tablet by mouth twice daily at 6AM and 9PM. acetaminophen (TYLENOL) 500 mg tablet Take 2 tablets by mouth every 6 hours. magnesium hydroxide (MOM) 400 mg/5 mL suspension Take 30 mL by mouth twice daily. LINZESS 145 mcg capsule TAKE 1 CAPSULE DAILY AT LEAST 30 MINUTES BEFORE THE FIRST MEAL OF THE DAY ON AN EMPTY STOMACH dicyclomine (BENTYL) 20 mg tablet Take 20 mg by mouth. varenicline (CHANTIX) 1 mg tablet Take 1 mg by mouth twice daily. plecanatide (TRULANCE) 3 mg tab Take by mouth. gabapentin (NEURONTIN) 100 mg capsule Take 100 mg by mouth three times daily. busPIRone (BUSPAR) 5 mg tablet Take 30 mg by mouth twice daily. OXcarbazepine (TRILEPTAL) 600 mg tablet Take 600 mg by mouth twice daily. OMEPRAZOLE (PRILOSEC ORAL) Take 40 mg by mouth once daily. Allergies, medications, past surgical history, family history and past medical history were reviewed per this encounter. Objective Ortho Exam Examination of the right shoulder reveals the skin to be clean, dry and intact. There is no surrounding erythema or ecchymoses. There is tenderness palpation of the right bicipital groove. No particular tenderness over the right AC joint. Active forward flexion in the right shoulder is to 140 degrees. Passive forward flexion to 160 degrees. External rotation with the arm in neutral position 40 degrees. Internal rotation to lower lumbar levels. Rotator cuff exam is notable for 5/5 strength. Negative belly press test. Positive speeds test. Positive Chilton's test. Positive impingement signs. Positive Neer sign. Neurovascular intact distally with 2+ radial pulses bilaterally. Last XR Shoulder - Impression Only No resulted procedures found. X-rays right shoulder 01/19/23: AVN right humeral head MRI [facility] on cd 02/14/23: showed findings of the medial humeral head as detailed likely representing AVN or rapid destructive arthrosis secondary to a subchondral insufficiency fracture. Low grade instrasubstance tear of the distal superior fibers of subscapularis tendon. Mild biceps tendinosis Assessment/Plan ASSESSMENT Diagnosis (M87.021) 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) (primary encounter diagnosis) Plan: CONSULT TO PHYSICAL THERAPY (M75.111) Incomplete tear of right rotator cuff, unspecified whether traumatic Plan: CONSULT TO PHYSICAL THERAPY (M75.21) Biceps tendonitis on right Plan: CONSULT TO PHYSICAL THERAPY No orders found for this visit on 03/30/23. PLAN Patient was given a cortisone injection into the right shoulder glenohumeral joint and tolerated the procedure well. I did show the patient exercises to do at home as well as exercises to avoid. I also placed an order for formal physical therapy. She will likely call to make an appointment with Dr. Myers to further discuss her treatment options including potential surgery. I did answer all of her questions. I will see her back as needed. Large Joint Arthro/Inj: R glenohumeral Informed Consent Consent Obtained: Verbal [place] Protocol A moment to CARE was completed. SIGN IN Personnel directly involved with the procedure wore the appropriate PPE. Special Equipment: N/A Patient/Surrogate Stated/Verified: Date of , Patient name, Relevant allergies and Intended procedure TIME OUT Intended patient and procedure match the source document(s). Consent documented and matches the intended procedure. Relevant labs, photos, and/or imaging studies have been reviewed. Correct side/site marked and visible. Medications required for procedure verified. No fire risk assessment and interventions applicable. No implant(s) inserted. 03/30/2023 11:41 AM The procedure site was prepped in the usual sterile fashion. Site: R glenohumeral Medications: 40 mg triamcinolone acetonide 40 mg/mL Anesthetics: 4 mL lidocaine (PF) 10 mg/mL (1 %) Outcome: Tolerated well, no immediate complications Post-injection instructions were reviewed with the patient and the patient voiced understanding of these instructions. SIGN OUT No instruments, equipment or retained foreign bodies applicable. FOLLOW-UP: No follow-ups on file. I reviewed the information obtained and documented by the physician fundraising assistant. I examined the patient and evaluated all available films and pertinent documents. We discussed the case and I agree with the plans as outlined in this note. SIGNATURE: Verónica Duarte PA-C PATIENT NAME: Nathaniel Marcial DATE: March 30, 2023 TIME: 11:13 AM documented in this encounter [facility] 03-27-2023 Note HNO ID: [id number] Author: Aureliano Vann DPM Service: ? Author Type: Physician Type: Progress Notes Filed: 04/18/2023 10:09 AM Note Text: SERVICE DATE: March 27, 2023 PCP: Gracy Medina MD, MD Subjective Patient ID: Nathaniel is a 47 year old female. Chief Complaint: Patient presents with: Left Ankle - New, Pain, Fracture: Trimalleolar fracture 11/12 ORIF L rom Fall in February with repeat injury to left ankle, cellulitis at that time with admission to local hospital. PAIN EVALUATION 03/27/2023 1305 Pain Level: 5 Pain Location: Ankle-Left Description: Aching Duration Amount of Time: 1 Duration Units: Months Frequency: Intermittent HPI Review of Systems Constitutional: Negative. HENT: Negative. Respiratory: Negative. Cardiovascular: Negative. Gastrointestinal: Negative. Endocrine: Negative. Skin: Negative. Neurological: Negative. Hematological: Negative. Musculoskeletal: Negative. 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 Social History Tobacco Use Smoking status: Some Days Smokeless tobacco: Never ALLERGIES Allergen Reactions Lamictal [Lamotrigi* Mental Status Change Bacitracin Vancomycin MEDICATIONS: ALPRAZolam (XANAX) 0.5 mg tablet Take 0.5 mg by mouth. budesonide-formoterol (SYMBICORT) 160-4.5 mcg/actuation inhaler INHALE 2 PUFFS BY MOUTH TWICE A DAY *RINSE MOUTH AFTER USE* metoprolol succinate ER (TOPROL XL) 50 mg 24 hr tablet TAKE 1 TABLET BY MOUTH EVERY DAY FOR 90 DAYS docusate sodium (COLACE) 100 mg capsule Take 1 capsule by mouth twice daily. benztropine (COGENTIN) 1 mg tablet Take 1 tablet by mouth twice daily. QUEtiapine (SEROQUEL) 300 mg tablet Take 1 tablet by mouth twice daily at 6AM and 9PM. acetaminophen (TYLENOL) 500 mg tablet Take 2 tablets by mouth every 6 hours. magnesium hydroxide (MOM) 400 mg/5 mL suspension Take 30 mL by mouth twice daily. LINZESS 145 mcg capsule TAKE 1 CAPSULE DAILY AT LEAST 30 MINUTES BEFORE THE FIRST MEAL OF THE DAY ON AN EMPTY STOMACH dicyclomine (BENTYL) 20 mg tablet Take 20 mg by mouth. varenicline (CHANTIX) 1 mg tablet Take 1 mg by mouth twice daily. plecanatide (TRULANCE) 3 mg tab Take by mouth. gabapentin (NEURONTIN) 100 mg capsule Take 100 mg by mouth three times daily. busPIRone (BUSPAR) 5 mg tablet Take 30 mg by mouth twice daily. OXcarbazepine (TRILEPTAL) 600 mg tablet Take 600 mg by mouth twice daily. OMEPRAZOLE (PRILOSEC ORAL) Take 40 mg by mouth once daily. Allergies, medications, past surgical history, family history and past medical history were reviewed per this encounter. Physical Exam: There were no vitals taken for this visit. Patient is alert and oriented x 3 in NAD Patient's general mood is good. Eyes are without evidence of conjunctivitis or jaundice Respiration is normal and non-labored. Patient ambulated into the office treatment room. Vascular: Weakly Palpable Dorsalis Pedis and Posterior Tibial Pulses b/l +LLE edema but absence of erythema or other SOI Neurological: Intact light touch/epicritic sensation Dermatological: Skin appears well hydrated and supple. good color, texture, turgor. No open lesions present. No hyperkeratosis. Webspaces clean and dry 1-4 Nails 1-5 b/l appear normal. Musculoskeletal/Orthopaedic: Allodynia noted to the L ankle on exam, especially to the lateral fibula distally DF of the L ankle is weakness with equinus Radiographs: 03/27/23 L ankle: radiolucency remains at the medial malleolus transverse fracture site with 2mm of diastasis suggestive of non-union. Intact hardware without evidence of breakage. Decreased bone density appreciated to the left ankle. Satisfactory ORIF of left ankle tri-malleolar fracture. CT L ankle 03/05/23 from OSH: nonunion noted to the posterior malleolar fracture fracture without displacement noted with approximately 1.0mm of diastasis of the fracture fragments ASSESSMENT: 1. 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 Osteoporosis, unspecified osteoporosis type, unspecified pathological fracture presence - ICD9: 733.00, ICD10: M81.0 3. PAD (peripheral artery disease) (HCC) - ICD9: 443.9, ICD10: I73.9 4. Allodynia - ICD9: 782.0, ICD10: R20.8 5. Nicotine use disorder, F17.2 - ICD9: 305.1, ICD10: F17.200 Concern for CRPS Plan: - Initial Office Visit - Pedal exam - XR reviewed with patient - CT reviewed and results reviewed with patient - Etiology and treatment options were discussed with the patient. - (more content not included)... [facility] 03-27-2023 Instructions Aureliano Vann DPM - 03/27/2023 1:47 PM EDT Please schedule PVR (blood flow) [phone] documented in this encounter [facility] 03-27-2023 Note HNO ID: [id number] Author: Jevon Lemons Service: ? Author Type: Training Instructor Type: Progress Notes Filed: 03/27/2023 12:28 PM Note Text: Radiology Service Progress Note PATIENT NAME: Nathaniel Marcial DATE OF SERVICE: March 27, 2023 TIME: 12:28 PM PATIENT IDENTITY VERIFICATION COMPLETED USING TWO (2) IDENTIFIERS: Name and Date of confirmed by patient verbally. FALL SCREENING: Has the patient had 2 falls in the last year or 1 fall with injury or currently using an Ambulatory Assistive Device (Walker, Cane, Wheelchair, Crutches, etc.)? Yes, Patient High Risk for Falls What interventions were put in place to prevent falls during this visit? Yellow Falls Risk Wristband Applied PATIENT GENDER DATA: Female. status: : No status: NO. PATIENT RELEVANT IMPLANT DATA REVIEWED: Not Applicable RADIOLOGY DEPARTMENT: General X-ray: Exam(s) Completed: Lower Extremity X-Ray(s): Ankle, Left and Wt. Bearing PERIPHERAL IV DATA: Not applicable SIGNED BY: Jevon Lemons March 27, 2023 12:28 PM [facility] 03-27-2023 History of Present illness Narrative SERVICE DATE: March 27, 2023 PCP: Gracy Medina MD, MD Subjective Patient ID: Nathaniel is a 47 year old female. Chief Complaint: Patient presents with: Left Ankle - New, Pain, Fracture: Trimalleolar fracture 11/12 ORIF L rom Fall in February with repeat injury to left ankle, cellulitis at that time with admission to local hospital. PAIN EVALUATION 03/27/2023 1305 Pain Level: 5 Pain Location: Ankle-Left Description: Aching Duration Amount of Time: 1 Duration Units: Months Frequency: Intermittent HPI Review of Systems Constitutional: Negative. HENT: Negative. Respiratory: Negative. Cardiovascular: Negative. Gastrointestinal: Negative. Endocrine: Negative. Skin: Negative. Neurological: Negative. Hematological: Negative. Musculoskeletal: Negative. ACTIVE PROBLEM LIST Cellulitis Abdominal Pain Nicotine use disorder, F17.2 Post-Operative State Incisional Hernia, Without Obstruction Or Gangrene PAST MEDICAL HISTORY Diagnosis Date Anxiety GERD (gastroesophageal reflux disease) Hernia, incisional Hypertension PAST SURGICAL HISTORY Procedure Laterality Date SECTION HX HYSTERECTOMY HX No family history on file. Social History Tobacco Use Smoking status: Some Days Smokeless tobacco: Never ALLERGIES Allergen Reactions Bacitracin Vancomycin MEDICATIONS: metoprolol succinate ER (TOPROL XL) 50 mg 24 hr tablet TAKE 1 TABLET BY MOUTH EVERY DAY FOR 90 DAYS docusate sodium (COLACE) 100 mg capsule Take 1 capsule by mouth twice daily. benztropine (COGENTIN) 1 mg tablet Take 1 tablet by mouth twice daily. QUEtiapine (SEROQUEL) 300 mg tablet Take 1 tablet by mouth twice daily at 6AM and 9PM. acetaminophen (TYLENOL) 500 mg tablet Take 2 tablets by mouth every 6 hours. magnesium hydroxide (MOM) 400 mg/5 mL suspension Take 30 mL by mouth twice daily. LINZESS 145 mcg capsule TAKE 1 CAPSULE DAILY AT LEAST 30 MINUTES BEFORE THE FIRST MEAL OF THE DAY ON AN EMPTY STOMACH dicyclomine (BENTYL) 20 mg tablet Take 20 mg by mouth. varenicline (CHANTIX) 1 mg tablet Take 1 mg by mouth twice daily. plecanatide (TRULANCE) 3 mg tab Take by mouth. gabapentin (NEURONTIN) 100 mg capsule Take 100 mg by mouth three times daily. busPIRone (BUSPAR) 5 mg tablet Take 30 mg by mouth twice daily. OXcarbazepine (TRILEPTAL) 600 mg tablet Take 600 mg by mouth twice daily. OMEPRAZOLE (PRILOSEC ORAL) Take 40 mg by mouth once daily. Allergies, medications, past surgical history, family history and past medical history were reviewed per this encounter. Physical Exam: There were no vitals taken for this visit. Patient is alert and oriented x 3 in NAD Patient's general mood is good. Eyes are without evidence of conjunctivitis or jaundice Respiration is normal and non-labored. Patient ambulated into the office treatment room. Vascular: Weakly Palpable Dorsalis Pedis and Posterior Tibial Pulses b/l +LLE edema but absence of erythema or other SOI Neurological: Intact light touch/epicritic sensation Dermatological: Skin appears well hydrated and supple. good color, texture, turgor. No open lesions present. No hyperkeratosis. Webspaces clean and dry 1-4 Nails 1-5 b/l appear normal. Musculoskeletal/Orthopaedic: Allodynia noted to the L ankle on exam, especially to the lateral fibula distally DF of the L ankle is weakness with equinus Radiographs: 03/27/23 L ankle: radiolucency remains at the medial malleolus transverse fracture site with 2mm of diastasis suggestive of non-union. Intact hardware without evidence of breakage. Decreased bone density appreciated to the left ankle. Satisfactory ORIF of left ankle tri-malleolar fracture. CT L ankle 03/05/23 from OSH: nonunion noted to the posterior malleolar fracture fracture without displacement noted with approximately 1.0mm of diastasis of the fracture fragments IMPRESSION: Healing, almost healed trimalleolar fracture, status post ORIF of the medial malleolus and distal fibula components. Soft tissue swelling about the ankle and dorsum of the foot compatible with cellulitis. No defined abscess is appreciated...disuse osteopenia degrades evaluation. ASSESSMENT: 1. 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 Osteoporosis, unspecified osteoporosis type, unspecified pathological fracture presence - ICD9: 733.00, ICD10: M81.0 3. PAD (peripheral artery disease) ([facility]) - ICD9: 443.9, ICD10: I73.9 4. Allodynia - ICD9: 782.0, ICD10: R20.8 5. Nicotine use disorder, F17.2 - ICD9: 305.1, ICD10: F17.200 Concern for CRPS Plan: - Initial Office Visit - Pedal exam - XR reviewed with patient - CT reviewed and results reviewed with patient - Etiology and treatment options were discussed with the patient. - discussed smoking cessation - RICE, defer vicodin Orders Placed This Encounter PARKING FOR HANDICAPPED Scheduling Instructions: Re: Nathaniel Marcial : 1975 To Department of [employer] and Public [employer] Registration Division The above named person requires a disability parking placard for the following reason(s): Is severely limited in ability to walk due to orthopaedic condition Please issue a temporary placard for 1 year. _ Aureliano Vann DPM OSTEOGENESIS STIM,LO INTEN ULTRASD CONSULT TO PAIN MGT Order Comments: Rule out CRPS Standing Status: Future Standing Expiration Date: 03/26/2024 Scheduling Instructions: Clinical reason(s) for this consult to Pain Management: Evaluate and treat. Transfer pain medication prescribing to referring provider when patient on stable medication plan. Our schedulers will reach out to you to schedule your appointment. If you need to contact them, they can be reached at [phone]. For [place] appointments: [phone]. Order Specific Question: Does consulting provider have [facility] Epic access? Answer: Yes PVR LEG UNL VAS LAB Order Comments: Defer on the L due to pain Standing Status: Future Standing Expiration Date: 03/27/2024 Order Specific Question: Indicate Side Answer: Right - WB in CAM boot - Homegoing instructions RTC 3 months or sooner prn SIGNATURE: Aureliano Vann DPM PATIENT NAME: Nathaniel Marcial DATE: March 27, 2023 TIME: 12:58 PM documented in this encounter [facility] 03-27-2023 History of Present illness Narrative Radiology Service Progress Note PATIENT NAME: Nathaniel Marcial DATE OF SERVICE: March 27, 2023 TIME: 12:28 PM PATIENT IDENTITY VERIFICATION COMPLETED USING TWO (2) IDENTIFIERS: Name and Date of confirmed by patient verbally. FALL SCREENING: Has the patient had 2 falls in the last year or 1 fall with injury or currently using an Ambulatory Assistive Device (Walker, Cane, Wheelchair, Crutches, etc.)? Yes, Patient High Risk for Falls What interventions were put in place to prevent falls during this visit? Yellow Falls Risk Wristband Applied PATIENT GENDER DATA: Female. status: : No status: NO. PATIENT RELEVANT IMPLANT DATA REVIEWED: Not Applicable RADIOLOGY DEPARTMENT: General X-ray: Exam(s) Completed: Lower Extremity X-Ray(s): Ankle, Left and Wt. Bearing PERIPHERAL IV DATA: Not applicable SIGNED BY: Jevon Lemons March 27, 2023 12:28 PM documented in this encounter [facility] 01-31-2023 Hospital Discharge instructions Patient Education 01/31/2023 11:16:35 Foot Sprain Foot Sprain A foot sprain is an injury to one of the ligaments in the feet. Ligaments are strong tissues that connect bones to each other. The ligament can be stretched too much. In some cases, it may tear. A tear can be either partial or complete. The severity of the sprain depends on how much of the ligament was damaged or torn. What are the causes? This condition is usually caused by suddenly twisting or pivoting your foot. What increases the risk? You are more likely to develop this condition if: You play a sport, such as basketball or football. You exercise or play a sport without first warming up your muscles. You start a new workout or sport. You suddenly increase how long or hard you exercise or play a sport. You have injured your foot or ankle before. What are the signs or symptoms? Symptoms of this condition start soon after an injury and include: Pain, especially in the arch of your foot. Bruising. Swelling. Being unable to walk or use your foot to support body weight. How is this diagnosed? This condition is diagnosed with a medical history and physical exam. You may also have imaging tests, such as: X-rays to check for broken bones (fractures). An MRI to see if the ligament is torn. How is this treated? Treatment for this condition depends on the severity of the sprain. Mild sprains and major sprains can be treated with: Rest, ice, pressure (compression), and elevation (RICE). Elevation means raising your injured foot. Keeping your foot in a fixed position (immobilization) for a period of time. This is done if your ligament is overstretched or partially torn. Your health care provider will apply a bandage, splint, or walking boot to keep your foot from moving until it heals. Using crutches or a scooter for a few weeks to avoid bearing weight on your foot while it is healing. Physical therapy exercises to improve movement and strength in your foot. Major sprains may also be treated with: Surgery. This is done if your ligament is fully torn and a procedure is needed to reconnect it to the bone. A cast or splint. This will be needed after surgery. A cast or splint will need to stay on your foot while it heals. Follow these instructions at home: If you have a bandage, splint, or boot: Wear it as told by your health care provider. Remove it only as told by your health care provider. Loosen it if your toes tingle, become numb, or turn cold and blue. Keep it clean and dry. If you have a cast: Do not put pressure on any part of the cast until it is fully hardened. This may take several hours. Do not stick anything inside the cast to scratch your skin. Doing that increases your risk for infection. Check the skin around the cast every day. Tell your health care provider about any concerns. You may put lotion on dry skin around the edges of the cast. Do not put lotion on the skin underneath the cast. Keep it clean and dry. Bathing Do not take baths, swim, or use a hot tub until your health care provider approves. Ask your health care provider if you may take showers. You may only be allowed to take sponge baths. If the bandage, splint, boot, or cast is not waterproof: ?Do not let it get wet. ?Cover it with a watertight covering when you take a bath or shower. Managing pain, stiffness, and swelling If directed, put ice on the injured area. To do this: ?If you have a removable bandage, splint, or boot, remove it as told by your health care provider. ?Put ice in a plastic bag. ?Place a towel between your skin and the bag, or between your cast and the bag. ?Leave the ice on for 20 minutes, 2 3 times per day. ?Remove the ice if your skin turns bright red. This is very important. If you cannot feel pain, heat, or cold, you have a greater risk of damage to the area. Move your toes often to reduce stiffness and swelling. Elevate the injured area above the level of your heart while you are sitting or lying down. Activity Do not use the injured foot to support your body weight until your health care provider says that you can. Use crutches or a scooter as told by your health care provider. Ask your health care provider what activities are safe for you. Do exercises as told by your health care provider. Gradually increase how much and how far you walk until your health care provider says it is safe to return to full activity. Driving Ask your health care provider if the medicine prescribed to you requires you to avoid driving or using machinery. Ask your health care provider when it is safe to drive if you have a bandage, splint, boot, or cast on your foot. General instructions Take [id number] and prescription medicines only as told by your health care provider. When you can walk without pain, wear supportive shoes that have stiff soles. Do not wear flip-flops. Do not walk barefoot. Keep all follow-up visits. This is important. Contact a health care provider if: Medicine does not help your pain. Your bruising or swelling gets worse or does not get better with treatment. Your splint, boot, or cast is damaged. Get help right away if: You develop severe numbness or tingling in your foot. Your foot turns blue, white, or anne, and it feels cold. Summary A foot sprain is an injury to one of the ligaments in the feet. Ligaments are strong tissues that connect bones to each other. You may need a bandage, splint, boot, or cast to support your foot while it heals. Sometimes, surgery may be needed. You may need physical therapy exercises to improve movement and strength in your foot. This information is not intended to replace advice given to you by your health care provider. Make sure you discuss any questions you have with your health care provider. Document Revised: 01/01/2021 Document Reviewed: 01/01/2021 [employer] Patient Education 2022 [employer]. Follow Up Care 01/31/2023 09:38:16 With:Nate Gavin Address: [address] [place] [address]- Business (1) When:02/03/2023 11:08:08 With:Gracy Medina Address: [address] [place] [address]- Business (1) When:02/03/2023 11:08:03 [facility] 12-13-2022 Evaluation note Encounter Date Diagnosis Assessment Notes Nov, Abdominal pain (ICD-10 - R10.9) [employer] Other 02-18-2023 Evaluation + Plan noteExtracted from: Title:ORTHO: H&P Author:Nate Gavin DO Date: Impression and Plan 47-year-old female with a trimalleolar fracture/subluxation of the left ankle. I reviewed the history, physical exam, imaging studies, and diagnosis with the patient. Recommendation is made for operative intervention. We will proceed with open reduction internal fixation of the left ankle. Patient has not had anything to eat or drink since 9:30 PM last night. I reviewed the risks, benefits, complications, and expectations of surgery. The risks include, but are not limited to, risk of anesthesia, infection, neurovascular injury, DVT, PE, and . We will consult physical therapy postoperatively for gait training and attempt to discharge the patient home later today. A total of 45-59 minutes was spent on this patient encounter including chart review, history taking, physical exam, diagnostic study review, patient counseling and discussion, entering information into the patient s medical record, and coordinating care. Extracted from: Title:ED Note Author:Gloria Rosen M.D. te:11/12/22 1. Trimalleolar fracture of left ankle (S82.852A: Displaced trimalleolar fracture of left lower leg, initial encounter for closed fracture) Unspecified fracture of shaft of unspecified fibula, initial encounter for closed fracture (S82.409A: Unspecified fracture of shaft of unspecified fibula, initial encounter for closed fracture) Orders: HYDROmorphone, 0.5 mg = 0.5 mL, Injection, IV Push, Once, Stop date 11/12/22 7:11:00 EST, STAT, Start date 11/12/22 7:11:00 EST, 11/12/22 7:11:00 EST NPO Diet XR Ankle 3+ Views Left [facility]02-18-2023 Hospital Discharge instructions Patient Education 11/12/2022 09:42:18 [place] - Ankle Fracture Post Op (Custom) (Custom) [place], [place] [facility] DISCHARGE INSTRUCTIONS: ANKLE FRACTURE POSTOPERATIVE ACTIVITY: Rest you should continue to rest the ankle for at least the next five to seven days to promote healing and decrease the possibility of swelling. Crutches or walker should be continued to be used with non-weight bearing as instructed in physicaltherapy. Walking should be only as necessary for the next several days when swelling may be prominent. To maximize comfort, try to keep the ankle elevated to at least the level of your heart. This should help decrease discomfort and swelling. Ice may be applied over the front of the cast. You may place a plastic bag over the cast, under the ice, so the moisture from the ice pack will not get the cast and dressing wet. Swelling and bruising are not uncommon after ankle fractures. The development or worsening of numbness and tingling may be a sign of excess swelling and should be promptly reported to your surgeon. Driving is legal but not recommended. It is legal for you to drive but driving is not advisable until at least your first office visit. You must be certain that you can maintain control of your vehicle in any and all situations before you make the decision to resume driving. MEDICATION: You will receive a prescription for pain medication to be used as needed, after your hospital discharge. Any pain medication can cause light-headedness, as well as stomach upset, therefore it is recommended that pain medication be taken with food. Do not operate machinery, drive, or drink alcohol while you are using the pain medication. Unfortunately, the pain medication will not eliminate pain, but hopefully will make the pain more tolerable. Please report any reactions to the pain medication promptly. FOLLOW-UP OFFICE VISIT: To minimize the chance of infection or wound healing problems, please keep the cast and bandage dryuntil the first dressing change in the office. Please report any problems, questions, or concerns prior to our office evaluation. Nate Gavin DO [facility] [address] [place] [id number] Reviewed: 408 Follow Up Care 11/12/2022 06:46:16 With:Nate Gavin Address: [address] [place] [address] Business (1) When:2 weeks [facility]02-18-2023 NotePatient: NATHANIEL MARCIAL Age: 47 years Sex: Female : 1975 Associated Diagnoses: None Author: Nate Gavin DO Chief Complaint Left ankle pain History of Present Illness Nathaniel is a 39-year-old female who injured her left ankle overnight. She was sitting on the edge of the bed after taking her Seroquel and started to fall asleep causing her to fall off the bed onto the floor. She had immediate pain in the left ankle and attempted to get up and take a few steps andfelt a snapping sensation in the ankle causing her to fall back to the floor. She called emergency services and EMS had to break down her door to get into her apartment. She was brought to the hospital found to have a fracture of the left ankle. She denies any other injuries at the time of her fall. She denies any previous problems with the left ankle. Nathaniel lives at home alone. She typically ambulates independently. She does not work and is on medical disability. Review of Systems As stated in the history of present illness. She denies pain in the right lower extremity, left knee, bilateral upper extremities. Denies chest pain, shortness of breath, abdominal pain. Health Status Allergies: Allergic Reactions (Selected) Severity Not Documented Bacitracin- No reactions were documented. Tape- Rash. Vancomycin- No reactions were documented. Current medications: Home Medications (7) Active albuterol 0.083% Inh Teresita 3 mL 0.083% - 3mL dosing units, PRN, Inhalation, q4hr Bentyl 20 mg Tab 20 mg = 1 tab(s), PRN, Oral, QID lactulose 10 g/15 mL Oral Syrup 20 gm/30 mL 10 gram = 15 mL, Oral, BID Milk of Magnesia 8% oral suspension 2.4 gram = 30 mL, PRN, Oral, BID Starks 325 mg-5 mg oral tablet 1 tab(s), PRN, Oral, q6hr Prilosec 40 mg Cap-EC 1 cap(s), Oral, Daily ProAir HFA 90 mcg/inh inhalation aerosol 2 puff(s), PRN, Inhalation, QID , No qualifying data available Problem list: All Problems Smoker / SNOMED CT 695858537 / Confirmed Added secondary to documentation in Social History. PTSD (post-traumatic stress disorder) / SNOMED CT 39306116 / Confirmed Scoliosis / SNOMED CT 503601677 / Confirmed Bipolar 1 disorder / SNOMED CT 8447448155 / Confirmed Staph infection / SNOMED CT 18939830 / Confirmed Histories Past Medical History: Resolved GERD (gastroesophageal reflux disease) ([id number]): Resolved. Endometriosis (1350593529): Resolved. Asthma ([id number]): Resolved. Family History: No family history items have been selected or recorded. Procedure history: Appendectomy. Hysterectomy. Colonoscopy. spine surgery for scoliosis. x2. Social History Social & Psychosocial Habits Alcohol 01/01/2022 Risk Assessment: Denies Alcohol Use Comment: denies - 01/01/2022 16:55 - Morales MCDOWELL, Radha Harding Substance Abuse 01/01/2022 Risk Assessment: High Risk 01/01/2022 Use: Current Type: Marijuana Tobacco 11/11/2012 Type: Cigarettes 01/01/2022 Risk Assessment: High Risk 01/01/2022 Tobacco Use: 10 or more cigarettes (1/ . Physical Examination Vital Signs (last 24 hrs) Last Charted Temp Oral 36 DegC (NOV 12 07:01) Heart Rate Peripheral 73 bpm (NOV 12 07:01) SBP 104 mmHg (NOV 12:32) DBP 76 mmHg (NOV 12:32) SpO2 90 % (NOV 12:32) Weight 65.4 kg (NOV 12:46) BMI 29.12 (NOV 12:46) GENERAL: Alert and oriented female in no acute distress. HEENT: Head is atraumatic, hearing intact to conversational tones, normal conjugate gaze HEART: Regular rate and rhythm LUNGS: Clear to auscultation ABDOMEN: Soft, nontender LEFT LOWER EXTREMITY: Mild swelling to left ankle with ecchymosis medially, skin is intact with no open wounds, able to move all toes, foot is well-perfused, knee without tenderness or effusion RIGHT LOWER EXTREMITY: Able to move the hip, knee, ankle without any difficulty, brisk capillary refill Review / Management Results review: Lab results 11/12/2022 8:57 EST WBC 7.7 E9/L HGB 14.4 gm/dL Hct 42.8 % Platelet 243.0 E9/L PT 10.8 second(s) INR 1.0 NA PTT 31.1 second(s) Glucose Lvl 97 mg/dL eGFR 59 mL/min/1.73 m2 Sodium Lvl 134 mmol/L LOW Potassium Lvl 4.0 mmol/L . IMAGIN views left ankle, AP, lateral, oblique, mortise, and a CT scan of the left ankle with 3D reconstructions are reviewed. Trimalleolar fracture/subluxation of the ankle is present. Displaced transverse medial malleolus fracture with a displaced oblique Carpenter B fracture of the distal fibula and a small posterior lateral malleolus fracture fragment involving less than 20% of the articular surface. Talus subluxed laterally approximately 50%. Impression and Plan 47-year-old female with a trimalleolar fracture/subluxation of the left ankle. I reviewed the history, physical exam, imaging studies, and diagnosis with the patient. Recommendation is made for operative intervention. We will (more content not included)...[facility] ClinicComment on above:Result Comment: Electronically Signed By: Nate Gavin DO\.nasir\Date and Time Signed: 11/12/22 09:33 [id number] NoteWill order sleep study and new referral to a different [facility]ologist[facility] NoteWill order sleep studyUnMartin Memorial Hospital02-03-2023 NoteContinue toprolUnMartin Memorial Hospital02-03-2023 NoteStable currently with inhalers Will order PFT again and sleep study in light of c/o poor sleeping and orthopnea- waking up short of breath. Referral to new electrical subcontractor- r/t pt does not want to return to Dr Brower ever again r/t his bedside manner and rudeness.[facility] 10-28-2022 NoteContinue metoprolol as prescribedUnMartin Memorial Hospital02-03-2023 NotePatient here for follow up Holter monitor and pulmonary referral. PFT's were not done. She no longer wishes to see Dr. Brower, as he was very rude to her and jacob talked [facility]. She has been out of metoprolol for a few days but will be picking it up soon. Review of Systems Cardiovascular: Positive for chest pain and dyspnea on exertion. Respiratory: Positive for shortness of breath. Musculoskeletal: Positive for back pain and myalgias. Neurological: Positive for headaches and light-headedness. All other systems reviewed and are negative.[facility] 10-28-2022 NoteUTP CARDIOLOGY PROGRESS NOTE HPI: Nathaniel Marcial is a 46 y.o. female here for No chief complaint on file. Patient here for follow up Holter monitor and pulmonary referral. PFT's were not done. She no longer wishes to see Dr. Brower, as he was very rude to her and jacob talked [facility]. She has been out of metoprolol for a few days but will be picking it up soon. Pt states that since she ran out of metoprolol her b/p has been elevated and some increase of her palpitations. Denied worsening shortness of breath, but she admits to not sleeping well at night and waking up short of breath. Review of Systems Cardiovascular: Positive for chest pain and dyspnea on exertion. Respiratory: Positive for shortness of breath. Musculoskeletal: Positive for back pain and myalgias. Neurological: Positive for headaches and light-headedness. All other systems reviewed and are negative. Visit Vitals BP (!) 130/95 (BP Location: Left arm, Patient Position: Sitting) Pulse 74 Ht 1.499 m (4' 11 ) Wt 56.2 kg (124 lb) SpO2 98% BMI 25.04 kg/m??? Smoking Status Every Day BSA 1.53 m??? Allergies Allergen Reactions Bacitracin Unknown Lamictal [Lamotrigine] Vancomycin Other Medications: Current Outpatient Medications on File Prior to Visit Medication Sig Dispense Refill ALPRAZolam (Xanax) 0.5 mg tablet Take 0.5 mg by mouth if needed in the morning, at noon, and at bedtime for anxiety. dicyclomine (Bentyl) 20 mg tablet Take by mouth before breakfast, before lunch, before evening meal, and at bedtime. methocarbamol (Robaxin) 750 mg tablet Take 750 mg by mouth in the morning, at noon, in the evening, and at bedtime. metoprolol succinate XL (Toprol-XL) 50 mg 24 hr tablet Take 50 mg by mouth in the morning. Do not crush or chew. pantoprazole (ProtoNix) 40 mg EC tablet Take 40 mg by mouth before breakfast. Do not crush, chew, or split. QUEtiapine (SEROquel) 50 mg tablet Take 50 mg by mouth at bedtime. No current facility-administered medications on file prior to visit. Physical Exam: Constitutional: Appearance: Normal appearance. Without apparent distress, obese, chronically ill HENT: Head: Normocephalic and atraumatic. Nose: Nose normal. Mouth/Throat: Mouth: Mucous membranes are moist. Eyes: Extraocular Movements: Extraocular movements intact. Conjunctiva/sclera: Conjunctivae normal. Neck: Vascular: No JVD. Cardiovascular: Rate and Rhythm: Normal rate and regular rhythm. Pulses: Dorsalis pedis pulses are 3 on the right side and 3on the left side. Posterior tibial pulses are 3 on the right side and 3 on the left side. Heart sounds: Normal heart sounds, S1 normal and S2 normal. Pulmonary: Effort: Pulmonary effort is normal. Breath sounds: Scattered wheezes throughout lungs Abdominal: General: Bowel sounds are normal. Palpations: Abdomen is soft. Musculoskeletal: General: Normal range of motion. Cervical back: Normal range of motion. Right lower leg: No edema. Left lower leg: No edema. Skin: General: Skin is warm and dry. Capillary Refill: Capillary refill takes less than 2 seconds. Neurological: General: No focal deficit present. Mental Status: She is alert and oriented to person, place, and time. Psychiatric: Mood and Affect: Mood normal. Behavior: Behavior normal. Thought Content: Thought content normal. Judgment: Judgment normal. Labs: Last lab values have been reviewed CV Testing: Holter monitor 08/03/22 - sinus rhythm to sinus tachycardia, PVCs noted, Max heart rate 126, Min 85 bpm PVCs burden 0.07%, 1 occurrence of SVT No echocardiogram results found for the past 12 months Assessment/Plan: SVT (supraventricular tachycardia) (CMS/HCC) Continue metoprolol as prescribed Dyspnea on exertion Stable currently with inhalers Will order PFT again and sleep study in light of c/o poor sleeping and orthopnea- waking up short of breath. Referral to new electrical subcontractor- r/t pt does not want to return to Dr Brower ever again r/t his bedside manner and rudeness. Palpitations Continue toprol Orthopnea Will order sleep study Poor sleep hygiene Will order sleep study and new referral to a different electrical subcontractor RTC 3-6 monthsUnMartin [facility] Hospital11-09-2022 NoteFollow-up with PCPUnMartin Memorial Hospital11-09-[address] 3-day Holter monitor to assess for any significant arrhythmia and heart rates. Continue metoprolol 50 mg as prescribedUnMartin Memorial Hospital 08-03-2022 NoteWill order PFT and pulmonary referral for DIAZ, and further evalaution and management Noted abnormal chest x-ray in the past that showed possible COPD emphysema she has never had a pulmonary evaluation we will send for PFT and referral to Dr. Tompkins of her pulmonary In light she has been a smoker for 35 years. Currently she has good functional/aerobic capacity greater than 8 METS, no early family history of heart disease or personal history of cardiac disease her biggest risk factor is being a smoker.[facility] 08-03-2022 NotePT with tachycardia intermittently and will order 48 hour holter monitor to assess for any arrythmia Continue ToprolUnMartin Memorial Hospital11-09-2022 NoteUTP CARDIOLOGY PROGRESS NOTE HPI New patient here to establish care. Ref from [facility] for chronic tachycardia. Had echo in March at [facility]. She smokes 1/2 PPD. Gets chest pain and SOB. Admits shortness of breath with exertion, but states she typically walks from her home to grocery store and back while carrying groceries without significant shortness of breath or chest pain that stops her activity. She is a smoker for greater than 35 years and states she is attempting to quit smoking again. She does admit that she drinks moderate caffeine and a day. Admits stress and some anxiety and daily life. PMH- depression, GERD, Tachycardia PSH- no cardiac surgery or procedure FMH- Mother-CHF, Father- TIA- in 50's, CHF Social- Smoke- 1/2 ppd- x 35 years; Medical THC; Review of Systems Cardiovascular: Positive for chest pain and dyspnea on exertion. Respiratory: Positive for shortness of breath. Musculoskeletal: Positive for back pain and myalgias. Neurological: Positive for headaches and light-headedness. All other systems reviewed and are negative. Visit Vitals BP 128/88 (BP Location: Left arm, Patient Position: Sitting) Pulse 97 Ht 1.499 m (4' 11 ) Wt 57.6 kg (127 lb) SpO2 96% BMI 25.65 kg/m??? Smoking Status Every Day BSA 1.55 m??? Medications: Current Outpatient Medications on File Prior to Visit Medication Sig Dispense Refill ALPRAZolam (Xanax) 0.5 mg tablet Take 0.5 mg by mouth if needed in the morning, at noon, and at bedtime for anxiety. dicyclomine (Bentyl) 20 mg tablet Take by mouth before breakfast, before lunch, before evening meal, and at bedtime. methocarbamol (Robaxin) 750 mg tablet Take 750 mg by mouth in the morning, at noon, in the evening, and at bedtime. metoprolol succinate XL (Toprol-XL) 50 mg 24 hr tablet Take 50 mg by mouth in the morning. Do not crush or chew. pantoprazole (ProtoNix) 40 mg EC tablet Take 40 mg by mouth before breakfast. Do not crush, chew, or split. QUEtiapine (SEROquel) 50 mg tablet Take 50 mg by mouth at bedtime. No current facility-administered medications on file prior to visit. Physical Exam: Constitutional: Appearance: Normal appearance. Without apparent distress, anxious HENT: Head: Normocephalic and atraumatic. Nose: Nose normal. Mouth/Throat: Mouth: Mucous membranes are moist. Eyes: Extraocular Movements: Extraocular movements intact. Conjunctiva/sclera: Conjunctivae normal. Neck: Vascular: No JVD. Cardiovascular: Rate and Rhythm: Normal rate and regular rhythm. Pulses: Dorsalis pedis pulses are 3 on the right side and 3on the left side. Posterior tibial pulses are 3 on the right side and 3 on the left side. Heart sounds: Normal heart sounds, S1 normal and S2 normal. Pulmonary: Effort: Pulmonary effort is normal. Breath sounds: Normal breath sounds. Abdominal: General: Bowel sounds are normal. Palpations: Abdomen is soft. Musculoskeletal: General: Normal range of motion. Cervical back: Normal range of motion. Right lower leg: No edema. Left lower leg: No edema. Skin: General: Skin is warm and dry. Capillary Refill: Capillary refill takes less than 2 seconds. Neurological: General: No focal deficit present. Mental Status: She is alert and oriented to person, place, and time. Psychiatric: Mood and Affect: Mood normal. Behavior: Behavior normal. Thought Content: Thought content normal. Judgment: Judgment normal. Labs: Labs from 07/16/2020 cholesterol 201, HDL 44, triglyceride 247 and LDL 107, TSH 1.478 normal 03/16/2022 CBC normal, renal function normal, electrolytes normal Last lab values have been reviewed CXR No acute cardiopulmonary process Finding s suggestive of COPD CV Testing: CTA chest 04/20/21 04/28/22 Echo Assessment/Plan: Palpitations PT with tachycardia intermittently and will order 48 hour holter monitor to assess for any arrythmia Continue Toprol Dyspnea on exertion Will order PFT and pulmonary referral for DIAZ, and further evalaution and management Noted abnormal chest x-ray in the past that showed possible COPD emphysema she has never had a pulmonary evaluation we will send for PFT and referral to Dr. Tompkins of her pulmonary In light she has been a smoker for 35 years. SVT (supraventricular tachycardia) (CMS/HCC) We will place 3-day Holter monitor to assess for any significant arrhythmia and heart rates. Continue metoprolol 50 mg as prescribed GERD without esophagitis Follow-up with PCP RTC 1 month after monitorMercy Health [facility] Hospital11-09-2022 NoteNew patient here to establish care. Ref from [facility] for chronic tachycardia. Had echo in March at [facility]. She smokes 1/2 PPD. Gets chest pain and SOB. Review of Systems Cardiovascular: Positive for chest pain and dyspnea on exertion. Respiratory: Positive for shortness of breath. Musculoskeletal: Positive for back pain and myalgias. Neurological: Positive for headaches and light-headedness. All other systems reviewed and are negative.[facility] 07-28-2022 NoteHNO ID: [id number] Author: Ronan Cabello MD Service: ? Author Type: Physician Type: Progress Notes Filed: 07/28/2022 1:17 PM Note Text: Nathaniel Marcial is a 46 year old female who presents with recurrent hernia. She underwent open mesh removal for chronic pain back in March 2021. She now has developed a recurrent hernia, which is expected. We had a long discussion today regarding another operation. She states her hernia hurts, but also has pain from her previous mesh. I explained that this next surgery will be a bigger dissection, and that mesh wont be able to be removed. She wants to think about it prior to surgery. I have seen and evaluated the patient and discussed the case with the resident physician. I agree with the assessment and plan as documented in the resident?s note including a ROS that was reviewed and negative other than what was indicated in our notes. Patient consented for study? Not applicableMagruder Memorial Hospital11-03-2022 NoteHNO ID: [id number] Author: Donna Donis Ms Service: ? Author Type: ? Type: Progress Notes Filed: 07/28/2022 1:17 PM Note Text: GENERAL SURGERY CLINIC NOTE Nathaniel Marcial [id number] HPI: Nathaniel Marcial is a 46 year old female with multiple prior hernia repairs. Her last surgery was an intra-abdominal mesh excision on 04/16/2021. She complains today of two new abdominal bulges along her midline incision. The patient reports that the first bulge is just below her rib cage and the second is slightly to the left of the umbilicus and that they began to appear around 5 days ago. She states that the bulges are reducible and painful. She also reports chronic abdominal pain along her waistline as well as diarrhea (loose stools 1-4 times a day with no blood or pain with defecation). She reports newly diagnosed HTN and an echo finding that she can not recall but is following with a hand shaper in 1 week. O: BP 125/89 Pulse 90 Temp 36.6 ?C (97.8 ?F) (Temporal) Resp 12 Ht 149.9 cm (4' 11 ) Wt 57.2 kg (126 lb) BMI 25.45 kg/m? GENERAL: Well-appearing, anxious. CARDIAC: Regular rate and rhythm, no murmurs, rubs or gallops. LUNGS: Clear to auscultation bilaterally. ABDOMEN: Soft, nontender, nondistended. Midline incision is clean, dry and intact. Small, reducible hernia noticed with coughing slightly above the umbilicus. EXTREMITIES: Warm and dry A/P: Nathaniel Marcial is a 46 year old with multiple prior hernia repairs who reports two new midline hernias 1 year post op mesh removal. Options were discussed regarding watching and waiting vs repair with mesh. Patient was informed that if hernia were to be surgically repaired, the mesh would not be able to be removed this time. She was given an abdominal binder and she will reach out with her decision on how to proceed. Donna Donis Ms Jul 28[facility] History of Present illness Narrative* Ronan Cabello MD - 07/28/2022 1:14 PM EDT Nathaniel Marcial is a 46 year old female who presents with recurrent hernia. She underwent open mesh removal for chronic pain back in March 2021. She now has developed a recurrent hernia, which is expected. We had a long discussion today regarding another operation. She states her hernia hurts, but also has pain from her previous mesh. I explained that this next surgery will be a bigger dissection, and that mesh wont be able to be removed. She wants to think about it prior to surgery. I have seen and evaluated the patient and discussed the case with the resident physician. I agree with the assessment and plan as documented in the resident s note including a ROS that was reviewed and negative other than what was indicated in our notes. Patient consented for study? Not applicable * Donna Donis Ms - 07/28/2022 11:24 AM EDT GENERAL SURGERY CLINIC NOTE Nathaniel Marcial [id number] HPI: Nathaniel Marcial is a 46 year old female with multiple prior hernia repairs. Her last surgery was an intra-abdominal mesh excision on 04/16/2021. She complains today of two new abdominal bulges along her midline incision. The patient reports that the first bulge is just below her rib cage and thesecond is slightly to the left of the umbilicus and that they began to appear around 5 days ago. She states that the bulges are reducible and painful. She also reports chronic abdominal pain along her waistline as well as diarrhea (loose stools 1- 4 times a day with no blood or pain with defecation). She reports newly diagnosed HTN and an echo finding that she can not recall but is following with a hand shaper in 1 week. O: BP 125/89 Pulse 90 Temp 36.6 C (97.8 F) (Temporal) Resp 12 Ht 149.9 cm (4' 11 ) Wt 57.2 kg (126 lb) BMI 25.45 kg/m GENERAL: Well-appearing, anxious. CARDIAC: Regular rate and rhythm, no murmurs, rubs or gallops. LUNGS: Clear to auscultation bilaterally. ABDOMEN: Soft, nontender, nondistended. Midline incision is clean, dry and intact. Small, reduciblehernia noticed with coughing slightly above the umbilicus. EXTREMITIES: Warm and dry A/P: Nathaniel Marcial is a 46 year old with multiple prior hernia repairs who reports two new midline hernias 1 year post op mesh removal. Options were discussed regarding watching and waiting vs repair with mesh. Patient was informed that if hernia were to be surgically repaired, the mesh would not be able to be removed this time. She was given an abdominal binder and she will reach out with her decision on how to proceed. Donna Donis Ms Jul 28, 2022 [facility]* Dalton Lee - 07/28/2022 10:49 AM EDT What is the reason for your visit today? Follow up Who is your referring physician? Dr. Cabello Are you having poor oral intake? NO Have you had unintentional weight loss of 15 lbs/7 Kg in the last 3-6 months? NO Bowels: regular or diarhea Wound: clean & dry Temperature: No Drains: No [facility] note* Encounter Date Diagnosis Assessment Notes Treatment Notes Treatment Clinical Notes Apr, Irritable bowel syndrome with diarrhea (ICD-10 - K58.0) Apr, Abdominal pain (ICD-10 - R10.9) Apr, Diarrhea (ICD-10 - R19.7) Apr, Bloating (ICD-10 - R14.0) [employer] Other 07-07-2022 Hospital Discharge instructions Patient Education 03/31/2022 14:02:13 Musculoskeletal Pain Musculoskeletal Pain Musculoskeletal pain refers to aches and pains in your bones, joints, muscles, and the tissues thatsurround them. This pain can occur in any part of the body. It can last for a short time (acute) ora long time (chronic). A physical exam, lab tests, and imaging studies may be done to find the cause of your musculoskeletal pain. Follow these instructions at home: Lifestyle Try to control or lower your stress levels. Stress increases muscle tension and can worsen musculoskeletal pain. It is important to recognize when you are anxious or stressed and learn ways to manageit. This may include: ?Meditation or yoga. ?Cognitive or behavioral therapy. ?Acupuncture or massage therapy. You may continue all activities unless the activities cause more pain. When the pain gets better, slowly resume your normal activities. Gradually increase the intensity and duration of your activities or exercise. Managing pain, stiffness, and swelling Take dlct-oex-qoucwiz and prescription medicines only as told by your health care provider. When your pain is severe, bed rest may be helpful. Lie or sit in any position that is comfortable, but get out of bed and walk around at least every couple of hours. If directed, apply heat to the affected area as often as told by your health care provider. Use theheat source that your health care provider recommends, such as a moist heat pack or a heating pad. ?Place a towel between your skin and the heat source. ?Leave the heat on for 20 30 minutes. ?Remove the heat if your skin turns bright red. This is especially important if you are unable to feel pain, heat, or cold. You may have a greater risk of getting burned. If directed, put ice on the painful area. ?Put ice in a plastic bag. ?Place a towel between your skin and the bag. ?Leave the ice on for 20 minutes, 2 3 times a day. General instructions Your health care provider may recommend that you see a physical therapist. This person can help youcome up with a safe exercise program. Do any exercises as told by your physical therapist. Keep all follow-up visits, including any physical therapy visits, as told by your health care providers. This is important. Contact a health care provider if: Your pain gets worse. Medicines do not help ease your pain. You cannot use the part of your body that hurts, such as your arm, leg, or neck. You have trouble sleeping. You have trouble doing your normal activities. Get help right away if: You have a new injury and your pain is worse or different. You feel numb or you have tingling in the painful area. Summary Musculoskeletal pain refers to aches and pains in your bones, joints, muscles, and the tissues thatsurround them. This pain can occur in any part of the body. Your health care provider may recommend that you see a physical therapist. This person can help youcome up with a safe exercise program. Do any exercises as told by your physical therapist. Lower your stress level. Stress can worsen musculoskeletal pain. Ways to lower stress may include meditation, yoga, cognitive or behavioral therapy, acupuncture, and massage therapy. This information is not intended to replace advice given to you by your health care provider. Make sure you discuss any questions you have with your health care provider. Document Released: 09/11/2006 Document Revised: 08/24/2018 Document Reviewed: 10/11/2017 [employer] Patient Education 2020 [employer]. Follow Up Care 03/31/2022 12:02:20 With:Carol DESHPANDE, Gracy Graff Address: [place] [place] [address]- When:04/03/2022 [facility]07-07-2022 Evaluation + Plan noteExtracted from: Title:ED Note Author:Jessica Bush PA-C Date :03/31/22 1. Right leg pain (M79.604: Pain in right leg) Orders: US LE Venous Duplex Right XR Femur Min 2 Views Right Future Appointments Appointment Date:04/20/2022 12:30:00 PM Scheduled Provider: Location:FT.MAMMOGRAM Appointment Type:MA Screen (FT) Appointment Date:04/20/2022 01:00:00 PM Scheduled Provider: Location:.CARDIO Appointment Type:CV Echo (FT) Future Scheduled Tests Radiology* Echo Transthoracic Complete 04/20/22 * MA Mamm Screen w/CAD if perf and 3D Robert 04/20/22 [facility]04-09-2022 Hospital Discharge instructions Patient Education 01/01/2022 20:12:12 Humerus Fracture Treated With Immobilization Humerus Fracture Treated With Immobilization A humerus fracture is a break in the large bone in the upper arm (humerus). If the joint is stable and the bones are still in their normal position (nondisplaced), the injury may be treated with immobilization. This involves the use of a cast, splint, or sling to hold your arm in place. Immobilization ensures that your bones continue to stay in the correct position while your arm is healing. What are the causes? This condition may be caused by: A fall. A hard, direct hit to the arm. A motor vehicle accident. What increases the risk? The following factors may make you more likely to develop this condition: Being elderly. Having a disease that makes the bones thin and weak. What are the signs or symptoms? Symptoms of this condition include: Pain. Swelling. Bruising. Not being able to move your arm normally. How is this diagnosed? This condition may be diagnosed based on: A physical exam. X-rays of your upper arm, elbow, and shoulder. CT scan. How is this treated? Treatment for this condition involves wearing a cast, splint, or sling until the injured area is stable enough for you to begin dohnd-jx-hiprvq exercises. You may also be prescribed pain medicine. Follow these instructions at home: If you have a cast: Do not stick anything inside the cast to scratch your skin. Doing that increases your risk of infection. Check the skin around the cast every day. Tell your health care provider about any concerns. You may put lotion on dry skin around the edges of the cast. Do not put lotion on the skin underneath the cast. Keep the cast clean and dry. If you have a splint or sling: Wear the splint or sling as told by your health care provider. Remove it only as told by your health care provider. Loosen the splint or sling if your fingers tingle, become numb, or turn cold and blue. Keep the splint or sling clean and dry. Bathing Do not take baths, swim, or use a hot tub until your health care provider approves. Ask your healthcare provider if you may take showers. You may only be allowed to take sponge baths. If the cast, splint, or sling is not waterproof: ?Do not let it get wet. ?Cover it with a watertight covering when you take a bath or shower. If you have a sling, remove it for bathing only if your health care provider tells you that it is safe to do that. Managing pain, stiffness, and swelling If directed, put ice on the injured area. ?If you have a removable splint or sling, remove it as told by your health care provider. ?Put ice in a plastic bag. ?Place a towel between your skin and the bag or between your cast and the bag. ?Leave the ice on for 20 minutes, 2 3 times a day. Move your fingers often to reduce stiffness and swelling. Raise (elevate) the injured area above the level of your heart while you are sitting or lying down. Driving Do not drive or use heavy machinery while taking prescription pain medicine. Do not drive while wearing a cast, splint, or sling on an arm that you use for driving. Ask your health care provider when it is safe to drive. Activity Return to your normal activities as told by your health care provider. Ask your health care provider what activities are safe for you. Do not lift anything until your health care provider says that it is safe. Do brvvm-bq-ufcbkr exercises only as told by your health care provider or physical therapist. General instructions Do not put pressure on any part of the cast or splint until it is fully hardened. This may take several hours. Do not use any products that contain nicotine or tobacco, such as cigarettes, e- cigarettes, and chewing tobacco. These can delay bone healing. If you need help quitting, ask your health care provider. Take npjk-wnf-fqczyhv and prescription medicines only as told by your health care provider. Ask your health care provider if the medicine prescribed to you can cause constipation. You may need to take steps to prevent or treat constipation, such as: ?Drink enough fluid to keep your urine pale yellow. ?Take nism-wtr-afmtaxh or prescription medicines. ?Eat foods that are high in fiber, such as beans, whole grains, and fresh fruits and vegetables. ?Limit foods that are high in fat and processed sugars, such as fried or sweet foods. Keep all follow-up visits as told by your health care provider. This is important. Contact a health care provider if: You have any new pain, swelling, or bruising. Your pain, swelling, and bruising do not improve. Your cast, splint, or sling becomes loose or damaged. Get help right away if: Your skin or fingers on your injured arm turn blue or anne. Your arm feels cold or numb. You have severe pain in your injured arm. Summary A humerus fracture is a break in the large bone in the upper arm. Immobilization involves the use of a cast, splint, or sling to hold your arm in place while the injury heals. Wear a splint or sling as told by your health care provider. Remove it only as told by your health care provider. Move your fingers often to reduce stiffness and swelling. This information is not intended to replace advice given to you by your health care provider. Make sure you discuss any questions you have with your health care provider. Document Released: 12/18/2001 Document Revised: 05/13/2019 Document Reviewed: 05/13/2019 [employer] Patient Education 2020 [employer]. Follow Up Care 01/01/2022 16:44:18 With:Gale Truong Address: [address] [place] [id number] [facility] (1) When:01/04/2022 19:33:35 Comments:Wear the sling when you are up and around you can take it off at night when you are sleeping. Please follow-up with orthopedic surgery for further evaluation management. Please return to the ED for any new or worsening symptoms. With:Gracy Medina Address: [address] [place] [address]- Business (1) When:Within 3 Day(s) [facility]04-09-2022 Evaluation + Plan noteExtracted from: Title:ED Note Author:Nash Neal DO Date :01/01/22 Closed left humeral fracture (S42.302A: Unspecified fracture of shaft of humerus, left arm, initial encounter for closed fracture) Orders: acetaminophen-hydrocodone, 1 tab(s), Oral, q6hr for pain, 12 tab(s), Refill(s) 0 methocarbamol, 500 mg = 1 tab(s), Oral, TID, X 3 day(s), # 12 tab(s), Refills(s) 0 predniSONE, 50 mg = 1 tab(s), Oral, Daily, X 7 day(s), # 5 tab(s), Refills(s) 0 predniSONE, 60 mg = 3 tab(s), Tab, Oral, Once, Stop date 01/01/22 19:11:00 EDT, STAT, Start date 01/01/22 19:11:00 EDT, 01/01/22 19:11:00 EDT Sling Apply [facility] Future Appointments Appointment Date:02/06/2023 09:00:00 AM Scheduled Provider: Location:FT.MRI Appointment Type:MRI Humerus/Shoulder (FT) Future Scheduled Tests Radiology* MRI Shoulder w/o Contrast Right [facility]06[facility]23 [facility] Diagnosis Incisional hernia, without obstruction or gangrene- Primary Incisional hernia without mention of obstruction or gangrene [facility] Diagnosis Pain- Primary Generalized pain [facility]* Diagnosis 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, subsequent encounter- Primary Osteoporosis, unspecified osteoporosis type, unspecified pathological fracture presence PAD (peripheral artery disease) ([facility]) Peripheral vascular disease, unspecified Allodynia Disturbance of skin sensation Nicotine use disorder, F17.2 Tobacco use disorder [facility]* Diagnosis Pain Generalized pain documented in this encounter [facility] note* Diagnosis 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)- Primary Incomplete tear of right rotator cuff, unspecified whether traumatic Biceps tendonitis on right [facility] Diagnosis 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)- Primary [facility] Narrative - Reported* Type Description Date Medical History bipolar Medical History asthma Medical History GERD Medical History IBS Surgical History C section-2X Surgical History x 2 Surgical History laparoscopy Surgical History appendectomy Surgical History hernia-10X Surgical History multiple hernia repairs Surgical History hysterectomy Surgical History back Surgical History back surgery Hospitalization History see above [employer] Other Hospital course Narrative No data available for this section [facility] Discharge instructions No data available for this section [facility] No data available for this section [facility] Diagnostic Procedure Only (Routine) - Authorized Specialty Diagnoses / Procedures Referred By Елена westfall Referred To Contact XR IMAGING Diagnoses Pain Procedures XR ANKLE GENERAL 3V AP/LAT/OBL LEFT RADEX ANKLE COMPLETE MINIMUM 3 VIEWS Aureliano Vann DPM [address] [place] [address] Xr Imaging Referral ID Status Reason Start Date Expiration Date Visits Requested Visits Authorized [id number] Authorized Auto-Generat ed Referral 03/08/2023 04/06/2024 1 1 [facility] for referral (narrative)* Outpatient Procedure (Routine) - Pending Review Specialty Diagnoses / Procedures Referred By Елена westfall Referred To Contact [facility] Diagnoses PAD (peripheral artery disease) ([facility]) Procedures PVR LEG UNL VAS LAB NON-INVASIVE PHYSIOLOGIC STUDY EXTREMITY 3 LEVLS Aureliano Vann DPM [address] [place] [address] [facility] [place] [address] Referral ID Status Reason Start Date Expiration Date Visits Requested Visits Authorized [id number] Pending Review Auto-Generat ed Referral 03/27/2023 03/26/2024 1 1 * Consult, Test, Treat (Routine) - Authorized Specialty Diagnoses / Procedures Referred By Елена t Referred To Contact Pain Management Diagnoses 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, subsequent encounter Allodynia Procedures CONSULT TO PAIN MGT OFFICE/OUTPATIENT NEW HIGH MDM 60-74 MINUTES Aureliano Vann DPM [address] [place] [id number] Referral ID Status Reason Start Date Expiration Date Visits Requested Visits Authorized [id number] Authorized PCP Requested Referral 03/27/2023 03/26/2024 1 1 [facility] for referral (narrative)* Diagnostic Procedure Only (Routine) - Closed Specialty Diagnoses / Procedures Referred By Елена westfall Referred To Contact XR IMAGING Diagnoses Pain Procedures XR ANKLE GENERAL 3V AP/LAT/OBL LEFT RADEX ANKLE COMPLETE MINIMUM 3 VIEWS Aureliano Vann DPM [address] [place] [address] Xr Imaging Referral ID Status Reason Start Date Expiration Date V isits Requested Visits Authorized [id number] Closed Auto-Generate d Referral 03/08/2023 04/06/2024 1 1 [facility] for referral (narrative)* Diagnostic Procedure Only (Routine) - Closed Specialty Diagnoses / Procedures Referred By Елена t Referred To Contact XR IMAGING Diagnoses 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) Procedures XR SHOULDER GENERAL 3V OR MORE AP/TRUE AP/OTHER RIGHT RADEX SHOULDER COMPLETE MINIMUM 2 VIEWS Sharita Myers MD [address] [place] [address] Xr Imaging Referral ID Status Reason Start Date Expiration Date V isits Requested Visits Authorized [id number] Closed Auto-Generate d Referral 04/10/2023 05/09/2024 1 1 [facility]* Diagnostic Procedure Only (Routine) - Closed Specialty Diagnoses / Procedures Referred By Mayiac t Referred To Contact XR IMAGING Diagnoses Pain Procedures XR ANKLE GENERAL 3V AP/LAT/OBL LEFT RADEX ANKLE COMPLETE MINIMUM 3 VIEWS Aureliano Vann DPM [address] [place] [id number] Xr Imaging Referral ID Status Reason Start Date Expiration Date V isits Requested Visits Authorized [id number] Closed Auto-Generate d Referral 03/08/2023 04/06/2024 1 1 [facility] Summary Purpose Family History No Family History Records FoundNo Family History Records FoundNo Family History Records FoundNo Family History Records FoundNo Family History Records FoundNo Family History Records Found No data available for this section No Family History Records FoundNo Family History Records FoundNo Family History Records Found Advance Directives No Advanced Directives Records FoundNo Advanced Directives Records FoundNo Advanced Directives Records FoundNo Advanced Directives Records FoundNo Advanced Directives Records FoundNo Advanced Directives Records FoundNo Advanced Directives Records FoundNo Advanced Directives Records FoundNo Advanced Directives Records Found Reason for Referral Specialty Diagnoses / Procedures Referred By Елена t Referred To Contact [facility] Diagnoses 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) Incomplete tear of right rotator cuff, unspecified whether traumatic Biceps tendonitis on right Procedures CONSULT TO PHYSICAL THERAPY PHYSICAL THERAPY EVALUATION HIGH COMPLEX 45 MINS Verónica Duarte PA-C [address] [place] [id number] [facility] [place] [address] Referral ID Status Reason Start Date Expiration Date Visits Requested Visits Authorized [id number] Authorized PCP Requested Referral Auto-Generate d Referral 03/30/2023 03/29/2024 99 99 Medications Administered Section Inactive Administered Medications - up to 3 most recent administrations Medication Order MAR Action Action Date Dose Rate Site lidocaine (PF) 10 mg/mL (1 %) 4 mL injection (XYLOCAINE) 4 mL, Injection - FOR ORTHO USE ONLY, ONE TIME INJECTION, 1 dose, Starting on Lashawn 03/30/23 at 1141, Until Lashawn 03/30/23 at 1141 Given 03/30/2023 11:41 AM EDT 4 mL Shoulder, Right triamcinolone acetonide 40 mg injection (KeNALog 40) 40 mg, Injection - FOR ORTHO USE ONLY, ONE TIME INJECTION, 1 dose, Starting on Lashawn 03/30/23 at 1141, Until Lashawn 7 at 1141 Given 03/30/2023 11:41 AM EDT 40 mg Shoulder, Right Additional Source Comments INFORMATION SOURCE (unrecogn ized section and content) DATE CREATED AUTHOR 03/30/2018 [facility] DATE CREATED AUTHOR AUTHOR'S ORGANIZ ATION 01/20/2023 [facility] [employer] [facility] DATE CREATED AUTHOR AUTHOR'S ORGANIZ ATION 03/03/2023 [facility] DATE CREATED AUTHOR AUTHOR'S ORGANIZ ATION 04/14/2023 [facility] DATE CREATED AUTHOR AUTHOR'S ORGANIZ ATION 05/10/2023 [facility] DATE CREATED AUTHOR AUTHOR'S ORGANIZ ATION 05/18/2023 [facility] DATE CREATED AUTHOR AUTHOR'S ORGANIZ ATION 08/31/2023 [facility] d[facility] Specialists [facility] DATE CREATED AUTHOR AUTHOR'S ORGANIZ ATION 09/01/2023 [facility] DATE CREATED AUTHOR AUTHOR'S ORGANIZ ATION 09/28/2023 [facility] Care Team (unrecognized sect ion and content) Ec Teacher Relationship Specialty Start Date End Date Gracy Medina MD [address] [place] [address] PCP - General Family Medicine 04/11/21 Ec Teacher Relationship Specialty Start Date End Date Gracy Medina MD [address] [place] [address] PCP - General Family Medicine 04/11/21 Gracy Medina MD [address] [place] [address] Referring Family Medicine 03/07/23 Ec Teacher Relationship Specialty Start Date End Date Gracy Medina MD [address] [place] [address] PCP - General Family Medicine 04/11/21 Gracy Medina MD [address] [place] [address] Referring Family Medicine 03/07/23 Ec Teacher Relationship Specialty Start Date End Date Gracy Medina MD [address] [place] [address] PCP - General Family Medicine 04/11/21 Gracy Medina MD [address] [place] [address] Referring Family Medicine 03/07/23 Ec Teacher Relationship Specialty Start Date End Date Gracy Medina MD [address] [place] [address] PCP - General Family Medicine 04/11/21 Gracy Medina MD [address] [place] [address] Referring Family Medicine 03/07/23 Ec Teacher Relationship Specialty Start Date End Date Gracy Medina MD [address] [place] [address] PCP - General Family Medicine 04/11/21 Gracy Medina MD [address] [place] [address] Referring Family Medicine 03/07/23 Ec Teacher Relationship Specialty Start Date End Date Gracy Medina MD [address] [place] [address] PCP - General Family Medicine 04/11/21 Gracy Medina MD [address] [place] [address] Referring Family Medicine 03/07/23 REASON FOR VISIT (unrecogniz ed section and content) Reason Comments Established Patient Reason Comments New Trimalleolar fractur e 11/12 ORIF L ankeFall in February with repeat injury to left ankle, cellulitis at that time with admission to local hospital. Pain Trimalleolar fractur e 11/12 ORIF L ankeFall in February with repeat injury to left ankle, cellulitis at that time with admission to local hospital. Fracture Trimalleolar fractur e 11/12 ORIF L ankeFall in February with repeat injury to left ankle, cellulitis at that time with admission to local hospital. Reason Comments New Pain Swelling Reason Comments Established Patient Reason Comments Schedule Surgery Reason Comments Patient Question Offering patient estefania gical date. Source Comments (unrecognize d section and content) In the event this informatio n is protected by the Federal Confidentiality of Alcohol and Drug Abuse Patient Records regulations: The Federal rules restrict any use of the information to criminally investigate or prosecute any alcohol or drug abuse patient.[facility] the event this information is protected by the Federal Confidentiality of Alcohol and Drug Abuse Patient Records regulations: The Federal rules restrict any use of the information to criminally investigate or prosecute any alcohol or drug abuse patient.[facility] HospitalIn the event this information is protected by the Federal Confidentiality of Alcohol and Drug Abuse Patient Records regulations: The Federal rules restrict any use of the information to criminally investigate or prosecute any alcohol or drug abuse patient.[facility] HospitalIn the event this information is protected by the Federal Confidentiality of Alcohol and Drug Abuse Patient Records regulations: The Federal rules restrict any use of the information to criminally investigate or prosecute any alcohol or drug abuse patient.[facility]In the event this information is protected by the Federal Confidentiality of Alcohol and Drug Abuse Patient Records regulations: The Federal rules restrict any use of the information to criminally investigate or prosecute any alcohol or drug abuse patient.[facility] HospitalIn the event this information is protected by the Federal Confidentiality of Alcohol and Drug Abuse Patient Records regulations: The Federal rules restrict any use of the information to criminally investigate or prosecute any alcohol or drug abuse patient.[facility] HospitalIn the event this information is protected by the Federal Confidentiality of Alcohol and Drug Abuse Patient Records regulations: The Federal rules restrict any use of the information to criminally investigate or prosecute any alcohol or drug abuse patient.[facility] HospitalIn the event this information is protected by the Federal Confidentiality of Alcohol and Drug Abuse Patient Records regulations: The Federal rules restrict any use of the information to criminally investigate or prosecute any alcohol or drug abuse patient.[facility] HospitalIn the event this information is protected by the Federal Confidentiality of Alcohol and Drug Abuse Patient Records regulations: The Federal rules restrict any use of the information to criminally investigate or prosecute any alcohol or drug abuse patient.[facility] FOR RECORDS PERTAINING TO PATIENTS WHO ARE OR HAVE BEEN ENROLLED IN A CHEMICAL DEPENDENCY/SUBSTANCEABUSE PROGRAM, SOME INFORMATION MAY BE OMITTED. This clinical summary was aggregated from multiple sources. Caution should be exercised in using it in the provision of clinical care. This summary normalizes information from multiple sources, and as a consequence, information in this document may materially change the coding, format and clinical context of patient data. In addition, data may be omitted in some cases. CLINICAL DECISIONS SHOULD BE BASED ON THE PRIMARY CLINICAL RECORDS. [facility] provides no warranty or guarantee of the accuracy or completeness of information in this document.
== END 2023-10-04 13:49 | disposition home or self-care (01) ==
LOC: RAD 13:48
PROVIDERS: PCP Student in an Organized Health Care Education/Training Program; Visit Provider Podiatrist Foot & Ankle Surgery
DX: M25.372 Other instability, left ankle (principal); M79.672 Pain in left foot
CPT/HCPCS: 73610; 73630

== ENCOUNTER 2023-12-02 18:51 | Emergency (ER) | payer MEDICARE, MEDICAID, SELFPAY ==
[2023-12-02 18:57] VITALS: BP 138/92; PULSE 105; RESP 24; TEMP 37.1; O2SAT 99; BMI 26.3
--- OUTSIDE RECORDS SUMMARY | 2023-12-02 19:00 | XMS_ITS | CCD ---
Author Name Unknown Address [address] [place] [address] Organization [facility] Care Team Providers Care Disassembler Name Role Phone PHYSICIAN, DEFAULT Unavailable Unavailable PHYSICIAN, DEFAULT Unavailable Unavailable Gracy Medina Primary Care Physician [phone] Gale Vasquez Unavailable Gracy Medina MD Primary Care Provider [phone] Sadiq Wilson Unavailable PROVIDER, UNKNOWN Attending Unavailable PROVIDER, UNKNOWN Admitting Unavailable CAROL, BRAYAN Primary Care Unavailable BERNARDA CORTES Attending Unavailable BERNARDA CORTES Consulting Unavailable SEBASTIAN, BERNARDA Admitting Unavailable HELENA ANDERSEN Consulting Unavailable HAY ., DR FREY Admitting Unavailable HAY ., DR FREY Attending Unavailable HAY ., DR FREY Consulting Unavailable CAROL, BRAYAN Primary Care Unavailable PAY ., DR JAY Admitting Unavailable PAY ., DR JAY Attending Unavailable PAY ., DR JAY Consulting Unavailable CAROL, BRAYAN Primary Care Unavailable KRISTINE .FLORENCIA Consulting Unavailable SEBASTIAN, BERNARDA Admitting Unavailable SEBASTIAN, BERNARDA Attending Unavailable CAROL, BRAYAN Primary Care Unavailable LEON ., DR AGUS Katz Attending Unavailable CAROLYN ., DR AGUS Katz Admitting Unavailable CAROL, BRAYAN Primary Care Unavailable GALE VASQUEZ JR Admitting Unavailable GALE VASQUEZ JR Attending Unavailable GALE VASQUEZ JR Consulting Unavailable CAROL, BRAYAN Primary Care Unavailable CAROL, BRAYAN Admitting Unavailable CAROL, BRAYAN Attending Unavailable CAROL, OSAWATOMIE Primary Care Unavailable Gracy Medina MD Primary Care Provider [phone] Gracy Medina MD Unavailable CAROL, GRACY Primary Care Unavailable SHARITA MYERS Attending Unavailable CAROL, GRACY Primary Care Unavailable RICSHARITA MAJOR T Referring Unavailable CAROL, GRACY Referring Unavailable VERÓNICA DUARTE Attending Unavailable CAROL, GRACY Primary Care Unavailable SELF Referring Unavailable AURELIANO VANN Attending Unavailable CAROL, GRACY Primary Care Unavailable CAROL, GRACY Primary Care Unavailable SELF Referring Unavailable CAROL, GRACY Primary Care Unavailable RONAN CABELLO Attending Unava ilable DAVID LEON Unavailable DAVID LEON Attending Unavailable CAROL, GRACY M Attending Unavailable DAVID LEON Attending Unavailable Carol, Gracy Primary Care Unavailable Jaspreet Cortez Admitting Unavailab le DanaJaspreet deutsch Attending Unavailab le Bullimore Elzbieta E Admitting Unavailable Bullimore Elzbieta E Attending Unavailable Carol, Gracy Primary Care Unavailable BETH GUEVARA Attending Unavailable LEIGHTON WEBER Attending Unavailable Carol, Gracy M Attending Unavailable Carol, Gracy M Admitting Unavailable DAVID LEON Admitting Unavailable DAVID LEON Attending Unavailable Bashir Loera Attending Unavailable Antonio Weinberg Attending Unavailable Eren Ramires Attending Unavailable Nate Gavin Referring Unavailable Nate Gavin Attending Unavailable Nate Gavin Admitting Unavailable Allergies Allergy Classification Reported Allergen(s) Allergy Type Date of Onset Reaction(s) Facility (20 sources) Bacitracin; Translations: [bacitracin] Drug Allergy 4 Unknown [facility] (20 sources) Vancomycin; Translations: [vancomycin] Drug Allergy 4 Unknown [facility] (10 sources) Tape 1 Drug allergy rash [facility] Comment on above: can use paper tape (10 sources) lamoTRIgine; Translations: [LAMOTRIGINE] Drug Allergy 2 Mental Status Change, Unknown (qualifier value) [facility] (1 source) Bacitracin Drug Allergy 3 [facility] (2 sources) lamoTRIgine; Translations: [LaMICtal] Drug Allergy [facility] Rep[facility] (1 source) Vancomycin Drug Allergy [facility] (1 source) Bacitracin Drug Allergy 3 [facility] Repository (1 source) lamoTRIgine Drug Allergy 3 [facility] (1 source) Vancomycin Drug Allergy 3 [facility] (2 sources) Clindamycin; Translations: [clindamycin] Drug Allergy Unknown (qualifier value) [facility] (1 source) Adhesive Tape; Translations: [Tape] Propensity to adverse reactions (disorder) [facility] Repository Medications Current Medications Medication Drug Class(es) Dates Sig (Normalized) Sig (Original) acetaminophen 325 mg / HYDROcodone bitartrate 5 mg oral tablet (3 sources) Opioid Agonist Start: 01-01-2022 [place] 325 mg-5 mg oral tablet 1 tab(s), Oral, q6hr for pain, 12 tab(s), Refill(s) 0 Start Date: 01/01/22 Status: Ordered acetaminophen 325 mg / oxyCODONE hydrochloride 5 mg oral tablet (7 sources) Opioid Agonist Start: 11-12-2022 Percocet 5 mg-325 mg oral tablet See Instructions, 40 tab(s), Refill(s) 0, 1-2 tab(s) Oral q4hr, [facility]/pharmacy #[id number], 149.9, cm, 11/12/22 6:57:00 EST, Height/Length Dosing, 65.4, kg, 11/12/22 6:57:00 EST, Weight Dosing Start Date: 11/12/22 Status: Ordered Albuterol Sulfate (2.5 MG/ 3 ML) 2.5 MG/3ML 0.083% Nebulization Solution (2 sources) Albuterol Sulfat e (2.5 MG/ 3 ML) 2.5 MG/3ML 0.083% Nebulization Solution 3ml Inhalation 4 times a day Active ALPRAZolam 0.5 mg oral tablet (12 sources) Benzodiazepine Start: 11-12-2022 take 1 tablet [...] day(s), # 60 tab(s), Refills(s) 0, Pharmacy: [facility]/pharmacy #[id number], 149.9, cm, 11/12/22 6:57:00 EST, Height/Length Dosing, 65.4, kg, 11/12/22 6:57:00 EST, Weight Dosing Start Date: 11/12/22 Stop Date: 12/12/22 Status: Ordered Symbicort (10 sources) Corticosteroid, beta2-Adrenergic Agonist Start: 11-12-2022 Symbicort Inhalation, BID, Refill(s) 0 Start Date: 11/12/22 Status: Ordered Start: 11-01-2022 take 2 puff(s) by mo [facility] twice daily budesonide-formoterol (SYMBICORT) 160-4.5 mcg/actuation inhaler INHALE 2 PUFFS BY MOUTH TWICE A DAY *RINSE MOUTH AFTER USE* 0 11/01/2022 Active Comment on above: INHALE 2 PUFFS BY MO UTH TWICE A DAY *RINSE MOUTH AFTER USE* Cetirizine (2 sources) Histamine-1 Receptor Antagonist Cetirizine HCl Active dicyclomine hydrochloride 10 mg oral capsule (20 sources) Anticholinergic Start: 10-13-19 End: 10-27-19 take 1 capsule by mouth four times daily Bentyl 10 mg Cap 10 mg = 1 cap(s), Oral, QID, X 14 day(s), # 56 cap(s), Refills(s) 0, Pharmacy: [facility]/pharmacy #[id number], 150, cm, 10/13/23 15:54:00 EST, Height/Length Dosing, 60, kg, 10/13/23 15:54:00 EST, Weight Dosing Start Date: 10/13/23 Stop Date: 10/27/23 Status: Ordered Start: 11-11-2012 dicyclomine (B ENTYL) 20 mg tablet Take 20 mg by mouth. 0 11/11/2012 Active Start: 11-11-2012 take 1 tablet by [facility] four times daily as needed for pain Bentyl 20 mg Tab 20 mg = 1 tab(s), Oral, QID, PRN As needed for pain or spasm, # 12 tab(s), Refills(s) 0 Start Date: 11/11/12 Status: Ordered Comment on above: Take 20 mg by mouth. docusate sodium 100 mg oral capsule (16 sources) Start: 04-19-20 take 1 capsule by mouth twice daily as needed for constipation Colace 100 mg Cap 100 mg = 1 cap(s), Oral, BID, PRN for constipation, # 20 cap(s), Refills(s) 0, Pharmacy: [facility]/pharmacy #[id number], 149.9, cm, 11/12/22 6:57:00 EST, Height/Length Dosing, 65.4, kg, 11/12/22 6:57:00 EST, Weight Dosing Start Date: 11/12/22 Status: Ordered Comment on above: Take 1 capsule by [facility] twice daily. dronabinol 5 mg oral capsule (2 sources) Cannabinoid Start: 01-28-20 take 1 capsule by mouth every twelve hours Dronabinol 5 MG 1 CAPSULE Orally bid for 30 day(s) January, Active ibuprofen 600 mg oral tablet (7 sources) Nonsteroidal Anti-inflammatory Drug Start: 11-12-19 take 1 tablet by mouth every eight hours as needed for pain ibuprofen 600 mg Tab 600 mg = 1 tab(s), Oral, q8hr, PRN as needed for pain, with food or milk, # 50 tab(s), Refills(s) 0, Pharmacy: [facility]/pharmacy #[id number], 149.9, cm, 11/12/22 6:57:00 EST, Height/Length Dosing, 65.4, kg, 11/12/22 6:57:00 EST, Weight Dosing Start Date: 11/12/22 Status: Ordered Lactulose (10 sources) Osmotic Laxative Start: 11-11-19 13 lactulose 10 g/15 mL Oral Syrup 20 [...] succinate 50 mg extended release oral tablet (18 sources) beta-Adrenergic Zeeshan Start: 11-12-2022 take 1 [...] Active Milk of Magnesia 8% oral suspension (9 sources) Start: 013 take 2.4 g by [...] omeprazole 40 mg delayed release oral capsule (18 sources) Proton Pump Inhibitor Start: 11-11-2012 take [...] pantoprazole 20 mg delayed release oral tablet (9 sources) Proton Pump Inhibitor Start: 11-12-2022 take [...] Ordered ProAir HFA 90 mcg/inh inhalation aerosol (8 sources) Start: 11-11-2012 take 2 puff(s) by [...] 0 Start Date: 11/11/12 Status: Ordered Seroquel (18 sources) Atypical Antipsychotic Start: 11-12-2022 take 75 [...] on above: Take 2 tablets by mo ut every 6 hours. albuterol 0.83 mg/ml inhalation solution (14 sources) beta2-Adrenergic Agonist Start: 11-11-2012 take 3 [...] Take 1 tablet by [facility] twice daily. busPIRone hydrochloride 5 mg oral tablet (9 sources) busPIRone (BUSPAR) 5 mg tablet Take 30 mg by mouth twice daily. 0 Active Comment on above: Take 30 mg by mouth twice daily. gabapentin 100 mg oral capsule (9 sources) Anti-epileptic Agent take 1 capsule by mouth three times daily gabapentin (NEURONTIN) 100 mg capsule Take 100 mg by mouth three times daily. 0 Active Comment on above: Take 100 mg by mouth three times daily. 10 ml lidocaine hydrochloride 10 mg/ml injection (1 source) Antiarrhythmic, Amide Local Anesthetic Start: 03-30-2023 End: 03-30-2023 lidocaine (PF) 10 mg/mL (1 %) 4 [...] Problem Classification Problem Date Documented Date Episodic/Chronic Abdominal pain (20 sources) Upper abdominal pain; Translations: [Upper abdominal pain, unspecified] Onset: 1 Resolved: 2 Episodic Allergic reactions (2 sources) Environmental allergy; Translations: [Other allergy status, other than to drugs and biological substances] Episodic Anxiety disorders (14 sources) Posttraumatic stress disorder; Translations: [Mixed anxiety and depressive disorder] 05-14-2019 Chronic Asthma (11 sources) Asthma; Translations: [Unspecified asthma, uncomplicated] Onset: 3 11-11-2012 Chronic Bacterial infection; unspecified site (10 sources) Staphylococcal infectious disease 05-14-2019 Episodic Cardiac dysrhythmias (2 sources) Palpitations; Translations: [Palpitations] Onset: 2 Episodic Endometriosis (10 sources) Endometriosis (clinical) 12-06-2013 Chronic Esophageal disorders (16 sources) Gastroesophageal reflux disease; Translations: [Peptic stricture of esophagus] 11-11-2012 Chronic Essential hypertension (4 sources) Hypertensive disorder; Translations: [Essential (primary) hypertension] Onset: 3 10-13-2023 Chronic Fluid and electrolyte disorders (1 source) Hypokalemia; Translations: [Hypokalemia] Onset: 4 Episodic Fracture of lower limb (3 sources) Closed [...] not specified as recurrent] Episodic Mood disorders (12 sources) Bipolar I disorder; Translations: [Major depression, single episode] 05-14-2019 Chronic Nausea and vomiting (2 sources) Nausea; Translations: [Nausea] Episodic Osteoporosis (1 source) Osteoporosis; Translations: [Age-related osteoporosis without current pathological fracture] Chronic Other acquired deformities (10 sources) Scoliosis deformity of spine 05-14-2019 Chronic [...] 2 Chronic Other gastrointestinal disorders (2 sources) Irritable bowel syndrome 10-13-2023 Chronic Other gastrointestinal disorders (2 sources) Constipation; Translations: [Constipation, unspecified] Episodic Other gastrointestinal disorders (2 sources) Heartburn; Translations: [Heartburn] Episodic Other gastrointestinal disorders (2 sources) Diarrhea; Translations: [Diarrhea, unspecified] Episodic Other gastrointestinal disorders (2 sources) Dysphagia; Translations: [Dysphagia, unspecified] Episodic Other gastrointestinal disorders (2 sources) Esophageal dysphagia; Translations: [Dysphagia, pharyngoesophageal phase] Episodic Other gastrointestinal disorders (1 source) Constipation, unspecified; Translations: [Constipation, unspecified] Onset: 4 Episodic Other nervous system disorders (1 source) [...] secondary to d ocumentation in Social History. Superficial injury; contusion (1 source) Contusion of left lesser toe; Translations: [Contusion of left lesser toe(s) without damage to nail, initial encounter] Onset: 4 Episodic Unclassified (1 source) Pain in right shoulder; Translations: [Pain in right shoulder] Onset: 3 Unclassified (1 source) Supraventricular tachycardia, unspecified; Translations: [Supraventricular tachycardia, unspecified] Onset: 2 Past or Other Problems Problem Classification Problem Date Documented Da te Episodic/Chronic Abdominal hernia (11 sources) Incisional hernia; Translations: [Incisional hernia without obstruction or gangrene] Onset: 1 Episodic E Codes: Natural/environment (1 source) Exposure to other specified factors, initial encounter; Translations: [EXPOSURE OTHER SPEC FACTORS INITIAL] Onset: 2 Episodic Immunizations and screening for infectious disease (1 source) Encounter for immunization; Translations: [ENCOUNTER FOR IMMUNIZATION] Onset: 2 Episodic Nonspecific chest pain (2 sources) Chest pain, unspecified; Translations: [Chest pain, unspecified] Onset: 3 Episodic Open wounds of extremities (4 sources) Laceration without foreign body of right thumb without damage to nail, initial encounter; Translations: [LAC NO FB RT THUMB NO DMG NAIL INIT] Onset: 2 Episodic Other aftercare (1 source) Other long term care social worker (current) drug therapy; Translations: [OTH USP CURRENT DRUG THERAPY] Onset: 3 Episodic Other aftercare (4 sources) Encounter for change or removal of surgical wound dressing; Translations: [ENC CHG/REMOVAL SURG WOUND DRSG] Onset: 3 Episodic Other connective tissue disease (4 sources) Pain in leg, unspecified; Translations: [PAIN IN LEG UNSPECIFIED] Onset: 2 Episodic Other gastrointestinal disorders (2 sources) Diarrhea, unspecified; Translations: [DIARRHEA UNSPECIFIED] Onset: 2 Resolved: 2 Episodic Other gastrointestinal disorders (2 sources) Abdominal distension (gaseous); Translations: [ABDOMINAL DISTENSION GASEOUS] Onset: 2 Resolved: 2 Episodic Other lower respiratory disease (2 sources) Other forms of dyspnea; Translations: [Other forms of dyspnea] Onset: 2 Episodic Residual codes; unclassified (9 sources) Postoperative state; Translations: [Other specified postprocedural states] Onset: 1 04-19-2021 Episodic Skin and subcutaneous tissue infections (9 sources) Cellulitis; Translations: [Cellulitis, unspecified] Onset: 6 11-13-2015 Episodic Sprains and strains (2 sources) Sprain of foot; Translations: [Unspecified sprain of unspecified foot, initial encounter] Onset: 2 Episodic Unclassified (1 source) Supraventricular tachycardia, unspecified; Translations: [Supraventricular tachycardia, unspecified] Onset: 4 Results Test Name Value Interpretation Reference Range Facility ED Note-Physicianon 11-27-19 ED Note-Physician Basic Information Time Seen: Jessica Bush PA-C 11/26/2023 19:43 Chief Complaint Dropped phone on L great toe. Pain/bruising/swelli ng. History of Present Illness 48-year-old female presents with left first toe pain after she dropped her iPhone on it today. She already has a postop shoe on due to previous left ankle fracture with surgical intervention. Denies swelling, temperature or sensation changes. Review of Systems Review of systems negative unless otherwise stated in HPI Physical Exam Vitals & Measurements T: 36.9 ?C(Oral) HR: 111(Peripheral) RR: 16 BP: 125/75 SpO2: 95% HT: 150 cm WT: 60 kg BMI: 26.67 PHYSICAL EXAM: GENERAL: ALERT, NO ACUTE DISTRESS SKIN: WARM, DRY, INTACT; NO CYANOSIS, NO RASH, NO ECCHYMOSIS HEAD: NORMOCEPHALIC, ATRAUMATIC NECK: SUPPLE, TRACHEA MIDLINE, FROM RESPIRATORY: NON-LABORED RESPIRATIONS, SYMMETRICAL EXPANSION EXTREMITIES: Tender to the distal tuft of the left great toe, NO CYANOSIS, NO EDEMA, FROM ALL EXTREMITIES X 4, PULSES INTACT, NORMAL STRENGTH, NO DEFORMITY, CAPILLARY REFILL INTACT NEUROLOGICAL: A&OX3, SENSORY INTACT PSYCHIATRIC: COOPERATIVE, APPROPRIATE MOOD AND AFFECT Medical Decision Making Reviewed imaging with Dr. Weinberg and no acute findings on prelim x-ray. She already has a postop shoe due to previous fracture and she can continue wearing this and follow-up with family doctor. Afebrile, not tachycardic, not tachypneic, nontoxic-appearing, tolerating p.o. and ambulating at baseline and hemodynamically stable to be discharged home. Answered all questions. Patient in agreement with treatment. Assessment/Plan 1. Contusion of toe, left (S90.122A: Contusion of left lesser toe(s) without damage to nail, initial encounter) Orders: XR Foot 3+ Views Left Disposition Plan Patient Discharge Condition Stable Discharge Disposition Home Discharge Prescription List Prescriptions No active prescription medications Follow-up With When Contact Information Carol DESHPANDE, Gracy Prerna In 3 days 11/29/[address] [place] [address]- Additional Instructions: Patient Education Contusion, Oluw-he-Ahfl Attestation I performed a substantive part of the MDM during the patient?s E/M visit. I personally made or approved the documented management plan and acknowledge its risk of complications. (Independent Interpretation) My (EKG/X-Ray/US/CT) interpretation as above. (Discussion) Management/test interpretation discussed with APC. Problem List/Past Medical History Ongoing Smoker Historical Asthma Endometriosis GERD (gastroesophageal reflux disease) Hypertension IBS - Irritable bowel syndrome Procedure/Surgical History Appendectomy, x2, Colonoscopy, Hysterectomy, spine [...] mg= 1 tab(s), Oral, TID, PRN Allergies LaMICtal (Unknown) Tape (rash) bacitracin clindamycin (Unknown) vancomycin Social History Alcohol - Denies Alcohol Use, 01/01/2022 Substance Abuse - High Risk, 01/01/2022 Current, Marijuana, 01/01/2022 Tobacco - High Risk, 01/01/2022 10 or more cigarettes (1/2 pack or more)/day in last 30 days Tobacco Use:., 01/01/2022 Cigarettes, 11/11/2012 Lab Results No qualifying data available. Diagnostic Results XR Foot 3+ Views Left * Preliminary * 11/26/23 20:20:30 : No fracture, dislocation or other acute abnormality Read By: Jessica Bush PA-C [facility] Comment on above: Result Comment: Elec tronically Signed By: Jessica Bush PA-C\.br\Date and Time Signed: 11/26/23 20:25 EST\.br\Electronically Co-Signed By: Antonio Weinberg DO\.br\Date and Time Co-Signed: 11/27/23 00:01 EST XR Foot 3+ Views Lefton XR Foot 3+ Views Left Exam Date/Time: 11/26/2023 20:17 EST Reason for Exam: Pain, Traumatic Report IMPRESSION: No distinct acute osseous findings within limitations of underlying decreased bone mineral density. EXAMINATION/TECHNIQU E: XR Foot 3+ Views Left HISTORY: Dropped cell phone on the great toe. COMPARISON: 05/31/2023. RESULT: Limitations from underlying decreased bone mineral density. Within these limits, no evidence for acute fracture. No distinct dislocation. Mild scattered degenerative changes throughout the foot, grossly unchanged. Small plantar and posterior calcaneal enthesophytes. Partially imaged postsurgical changes about the ankle, grossly unchanged. Diffuse soft tissue edema. No other significant abnormality. Ordering Provider: Jessica Bush FINAL REPORT Dictated: 11/27/2023 9:13 am Venu Persaud MD Signed (Electronic Signature): 11/27/2023 9:13 am Signed by: Venu Persaud MD Transcribed by: CARISA Technologist: RASHEL Technical Comments Radiation Dose: Ka,r in mGy = na DAP = na Normal [facility] Consent for Treatmenton Consent for Treatment [id number] #[id number] Normal [facility] Discharge Instructionson Discharge Instructions [id number] #1.00TIFF Normal [facility] ED Clinical Summaryon 2023 ED Clinical Summary [place] [address] ED Clinical Summary Person Information Name: NATHANIEL MARCIAL Kenyatta/[facility] Age: 48 Years : 1975 Sex: Female Language: Burkinan PCP: Carol DESHPANDE, Gracy Graff Marital Status: Phone: [phone] Visit Id: Visit Reason: Toe injury - Minor; Toe pain-swelling; POSSIBLE BROKEN TOE Speciality: Acuity: 4 Enc Type: Emergency Med Service: Emergency Arrival: 11/26/2023 19:37:37 Discharge: 11/26/2023 20:27:25 LOS: 000 00:50 Checkin: 11/26/2023 19:37:37 Checkout: 11/26/2023 20:27:25 Dispo Type: Home (Routine DC) EVENTS: Event Name Event Status Request Date/Time Start Date/Time Complete Date/Time Arrive Complete 11/26/2023 19:37:37 11/26/2023 19:37:37 11/26/2023 19:37:37 Document Home Meds Request 11/26/2023 19:37:37 Triage Complete 11/26/2023 19:37:37 11/26/2023 19:49:42 11/26/2023 19:49:42 Bed Assign Complete 11/26/2023 19:43:15 11/26/2023 19:43:15 11/26/2023 19:43:15 Dr Exam Complete 11/26/2023 19:43:15 11/26/2023 19:43:48 11/26/2023 19:43:48 RN Exam Complete 11/26/2023 19:43:15 11/26/2023 19:58:10 11/26/2023 19:58:10 Registration Complete 11/26/2023 19:43:48 11/26/2023 19:45:00 11/26/2023 19:45:00 Reg Complete Request 11/26/2023 19:45:00 Reg Bed Request Complete 11/26/2023 19:45:00 11/26/2023 19:45:00 11/26/2023 19:45:00 Isolation Screening Request 11/26/2023 19:49:43 Dr Exam Complete 11/26/2023 19:50:15 11/26/2023 19:50:15 11/26/2023 19:50:15 Registration Request 11/26/2023 19:50:15 X-Ray Complete 11/26/2023 19:57:56 11/26/2023 19:58:35 11/26/2023 20:17:13 Wet Read Request 11/26/2023 20:17:13 Discharge Complete 11/26/2023 20:23:12 11/26/2023 20:27:28 11/26/2023 20:27:28 Transfer Complete 11/26/2023 20:27:28 11/26/2023 20:27:28 11/26/2023 20:27:28 ADDRESS: [address] [place] [address] DR RACHELE Doran [facility] [phone] [facility] DOC NOTES: MEDICAL INFORMATION: Prescriptions Given: Medications [...] Mouth at bedtime. PATIENT EDUCATION INFORMATION: Instructions: Contusion, Fyne-ri-Ixcp Follow up: With: Address: When: Carol DESHPANDE, [place] [address] [place] [address] In 3 days 11/29/2023 DIAGNOSIS: 1:Contusion of toe, left Normal [facility] ED Patient Education Noteon 11-26-2023 ED Patient Education Note Orthopedics Contusion A contusion is a deep bruise. This is a result of an injury that causes bleeding under the skin. Symptoms of bruising include pain, swelling, and discolored skin. The skin may turn blue, purple, or yellow. Follow these instructions at home: Managing pain, stiffness, and swelling You may use RICE. This stands for: ? Resting. ? Icing. ? Compression, or putting pressure. ? Elevating, or raising the injured area. To follow this method, do these actions: ? Rest the injured area. ? If told, put ice on the injured area. ? Put ice in a plastic bag. ? Place a towel between your skin and the bag. ? Leave the ice on for 20 minutes, 2?3 times per day. ? If told, put light pressure (compression) on the injured area using an elastic bandage. Make sure the bandage is not too tight. If the area tingles or becomes numb, remove it and put it back on as told by your doctor. ? If possible, raise (elevate) the injured area above the level of your heart while you are sitting or lying down. General instructions ? Take lllm-cbp-vllwswk and prescription medicines only as told by your doctor. ? Keep all follow-up visits as told by your doctor. This is important. Contact a doctor if: ? Your symptoms do not get better after several days of treatment. ? Your symptoms get worse. ? You have trouble moving the injured area. Get help right away if: ? You have very bad pain. ? You have a loss of feeling (numbness) in a hand or foot. ? Your hand or foot turns pale or cold. Summary ? A contusion is a deep bruise. This is a result of an injury that causes bleeding under the skin. ? Symptoms of bruising include pain, swelling, and discolored skin. The skin may turn blue, purple, or yellow. ? This condition is treated with rest, ice, compression, and elevation. This is also called RICE. You may be given bhnp-xul-ugeqqqm medicines for pain. ? Contact a doctor if you do not feel better, or you feel worse. Get help right away if you have very bad pain, have lost feeling in a hand or foot, or the area turns pale or cold. This information is not intended to replace advice given to you by your health care provider. Make sure you discuss any questions you have with your health care provider. Document Revised: 07/07/2022 Document Reviewed: 07/07/2022 [employer] Patient Education ? 2022 [employer] Normal [facility] ED Patient Summaryon 024 ED Patient Summary [address] [address] Patient Discharge Instructions Person Information Name: NATHANIEL MARCIAL Age: 48 Years Arrival Date: 11/26/2023 19:37:37 Discharge Diagnosis: 1:Contusion of toe, left Primary Care Physician: Gracy Medina MD Provider Information Primary Provider: Antonio Weinberg DO Advanced Tool Keeper:None The exam and treatment you received in the Emergency Department were for an urgent problem and are not intended as complete care. It is important that you follow up with a doctor, nurse practitioner, or physician?s licensed physical therapy assistant for ongoing care. If your symptoms become worse or you do not improve as expected and you are unable to reach your usual health care provider, you should return to the Emergency Department. We are available 24 hours a day. NATHANIEL MARCIAL has been given the following list of patient education materials, prescriptions and follow-up instructions: Follow-up Instructions: With: Address: When: Carol DESHPANDE, Gracy [facility] [place] [place] [address] In 3 days 11/29/2023 In the event that this physician does not participate in your insurance network, please consult with your insurance company to find a nearby participating provider. Patient Education Materials: Contusion, Cdva-ys-Phsd A MESSAGE TO ALL PATIENTS REGARDING OPIOIDS PRESCRIPTION OPIOIDS: WHAT YOU NEED TO KNOW Prescription opioids can be used to help relieve ohtxknhq-cf-vdctrv pain and are often prescribed following a [...] be struggling with addiction, tell your health manager medicare marketing and ask for guidance or call [facility]?S National Helpline at 5-200-587-HELP. v Source: [place] Department of Health and (more content not included)... Normal [facility] 37on 11-24-2023 37 Please notify office for any dry persistent cough after starting lisinopril Have blood drawn in about 1 week to check kidney function and electrolytes. Normal [facility] Office Visiton 11-24-2023 Follow-up visit [id number] Nathaniel Marcial 1975 F Date Provider Department Center 11/24/2023 [facility] Family History Problem Relation Age of Onset Heart failure Mother Heart failure Father Transient ischemic attack Father Family Status - Relation Status Age at Mother Father Level of Service:36344 [place] OFFICE/OUTPATIENT ESTABLISHED MOD MDM 30 MIN Normal [facility] ED Note-Physicianon 10-14-19 ED Note-Physician Basic Information Time Seen: El Mullen PA-C 10/13/2023 15:46 Chief Complaint Pt presents to ED with complaints of constipation x7 days. History of Present Illness A 47-year-old female reports emerged department chief complaint of constipation. Reports that this been off for the last 7 days. Reports that she has tried MiraLAX for last 3 days, as well as Dulcolax today. Reports no improvement of her symptoms. Reports history of IBS. She reports of right-sided abdominal pain. States that she has had fecal impaction before. Reports that she has had to use magnesium citrate, but does not like the way it makes her feel. She states that when to get checked out. Denies any nausea or vomiting. Denies any blood thinners. Review of Systems A 10 point review of systems is negative except as noted above. Medical and Surgical History: Reviewed and noted Social history: Lives at home Family History: Reviewed. Tobacco: user Physical Exam Vitals & Measurements T: 36.8 ?C(Oral) HR: 71(Monitored) RR: 18 BP: 143/89 SpO2: 97% HT: 150 cm WT: 60 kg BMI: 26.67 General: The patient appears well and in no apparent distress. Patient is resting comfortably on bed. afebrile Skin: Warm, dry, no pallor noted. Head: Normocephalic, atraumatic Neck: No JVD Eye: PERRLA, EOMI ENT: Moist mucus membranes Cardiovascular: Regular rate normal peripheral perfusion Respiratory: No respiratory distress no accessory muscle use no obvious audible wheezing Chest Wall: no deformity Musculoskeletal: normal ROM, no deformity, no swelling GI: No obvious distention. soft with mild tenderness of the right quadrant of the abdomen. No rebound tenderness or guarding noted. Neurological: A&O moves all extremities equal strength and symmetry Psychiatric: Cooperative and appropriate Medical Decision Making MEDICAL DECISION MAKING Number and Complexity of Problems Differential Diagnosis: [] [facility] Data External documents reviewed: [] My EKG interpretation: [] My CT interpretation: reviewed My X-ray interpretation: [] My Ultrasound interpretation: [] Decision rules/scores evaluated: [] Discussed with: [] Treatment and Disposition ED Course: 47-year-old female reports to the emergency department with chief complaint of constipation. Reports been on for last several days. Reports now bowel movement since then. Reports that she has right abdominal pain. Reports history of surgeries on her abdomen before. States that she has a history of fecal impaction. Due to her history, we did do lab work as well as a CT of her abdomen. Lab reviewed and noted. Patient was slightly hypokalemic. Rest labs are benign. Due to concerns we did do a CT, that showed no acute process in the abdomen and pelvis. Due to this, did diagnose patient with constipation. We did replace potassium here in the emergency department. Patient will be started on Bentyl for pain. I discussed using MiraLAX at home, which patient stated that she will use. Discussed using a full bottle of MiraLAX, where she takes 2 large Gatorade bottles, and splits the MiraLAX evenly in between the 2 bottles. Discussed drink 1 bottle 8 ounces, and then finish the bottle after 5 minutes. Discussed weight an hour, and then may do the same thing with the other bottle. Discussed should have a bowel movement. Discussed return precautions. Follow-up with your primary care provider in 3 to 5 days. If symptoms worsen, do not improve, or new symptoms arise please report back to emergency department for further evaluation. The patient was understanding and agreeable to plan moving forward. Shared decision making: [] Code status: [] Assessment/Plan Abdominal pain (R10.9: Unspecified abdominal pain) Constipation (K59.00: Constipation, unspecified) Hypokalemia (E87.6: Hypokalemia) Orders: acetaminophen + Generic Diluent 100 mL, 1,000 mg = 100 mL, Soln-IV, IV Piggyback, Once, Stop date 10/13/23 16:09:00 EST, STAT, Start date 10/13/23 16:09:00 EST, 400 mL/hr, Infuse over 15 minute(s) dicyclomine, 10 mg = 1 cap(s), Oral, QID, X 14 day(s), # 56 cap(s), Refills(s) 0, Pharmacy: [facility]/pharmacy #[id number], 150, cm, 10/13/23 15:54:00 EST, Height/Length Dosing, 60, kg, 10/13/23 15:54:00 EST, Weight Dosing potassium bicarbonate, 50 mEq = 2 tab(s), Tab-Eff, Oral, Once, Stop date 10/13/23 18:39:00 EST, STAT, Start date 10/13/23 18:39:00 EST, 10/13/23 18:39:00 EST Sodium Chloride 0.9% intravenous solution, 1,000 mL, Soln-IV, IV, Once, Stop date 10/13/23 16:08:00 EST, STAT, Start date 10/13/23 16:08:00 EST, Infuse over 61, minute(s) Basic Metabolic Panel CBC w/ Auto Diff CT Abdomen/Pelvis w/ Contrast eGFR Extra Blue Tube Extra SST Tube Hepatic Function Panel Lipase Level UA With Cult Reflex Medications Administered Given [id number] [F] 1000 mg + GenDil 100 mL, IV Piggyback NS 1000 ml Bolus, 1000 mL, IV potassium bicarbonate 25 mEq Tab (K-LYTE), 50 mEq, Oral Disposition Plan Patient Dis (more content not included)... Normal [facility] Comment on above: Result Comment: Elec tronically Signed By: El Mullen PA-C\.br\Date and Time Signed: 10/13/23 19:38 EST\.br\Electronically Co-Signed By: Bashir Loera DO\.br\Date and Time Co-Signed: 10/14/23 08:22 EST BMPon 10-13-2023 Anion gap [Moles/Vol] 13 mmol/L Normal 6-16 [facility] Comment on above: Performed By: #### 2 663712, 6156443, 0539417, 84304311, 3038171 ####[facility] [address] [place] [address] BUN/Creat Ratio 13 No Units Normal - [facility] Comment on above: Performed By: #### 2 854685, 0572306, 6116702, 27177516, 6876154 ####[facility] [address] [place] [address] Calcium [Mass/Vol] 8.7 mg/dL Low 8.9-11.1 [facility] Comment on above: Performed By: #### 2 835489, 2630005, 2188187, 33506490, 7022499 ####[facility] [address] [place] [address] Chloride [Moles/Vol] 104 mmol/L Normal 101-111 [facility] Comment on above: Performed By: #### 2 785903, 2788632, 7056197, 55583660, 9064835 ####[facility] [address] [place] [address] CO2 [Moles/Vol] 24 mmol/L Normal 21-31 [facility] Comment on above: Performed By: #### 2 828597, 6364995, 6044107, 16763680, 1096402 ####[facility] [address] [place] [address] Creatinine [Mass/Vol] 0.7 mg/dL Normal 0.5-1.3 [facility] Comment on above: Performed By: #### 2 416605, 8900072, 4797853, 19659974, 7449124 ####[facility] [address] [place] [address] Glucose [Mass/Vol] 89 mg/dL Normal 55-199 [facility] Comment on above: Performed By: #### 2 302635, 0397873, 3082002, 42128017, 4378349 ####[facility] [address] [place] [address] Potassium [Moles/Vol] 2.9 mmol/L Low 3.5-5.3 [facility] Comment on above: Performed By: #### 2 202210, 4727354, 1549257, 32150939, 9625158 ####[facility] [address] [place] [address] Sodium [Moles/Vol] 138 mmol/L Normal 135-145 [facility] Comment on above: Performed By: #### 2 290089, 7787049, 1062076, 03257202, 1735061 ####[address] [address] Urea nitrogen [Mass/Vol] 9 mg/dL Normal 5-21 [facility] Comment on above: Performed By: #### 2 472025, 1163895, 2826823, 58388256, 5980183 ####[address] [address] CBC w/ Auto Diffon 4 Basophil Absolute 0.0 E9/L Normal 0.0-0.2 [facility] Comment on above: Performed By: #### 2 069124, 8889303, 1310950, 93474891, 5702984 ####[address] [address] Basophils/100 WBC (Bld) 0.5 % Normal 0.0-2.0 [facility] Comment on above: Performed By: #### 2 320407, 6594431, 4360577, 03786714, 0236133 ####[address] [address] Eos Absolute 0.0 E9/L Normal 0.0-0.5 [facility] Comment on above: Performed By: #### 2 378959, 6927468, 5841228, 72141733, 2835457 ####[address] [address] Eosinophils/100 WBC (Bld) 0.1 % Normal 0.0-8.0 [facility] Comment on above: Performed By: #### 2 088670, 3878323, 4408714, 52517280, 2659580 ####[address] [address] Erythrocyte distribution width (RBC) [Ratio] 16.1 % High 10.9-14.2 [facility] Comment on above: Performed By: #### 2 933517, 6075770, 5403609, 78821517, 9221106 ####[address] [address] Hematocrit (Bld) [Volume fraction] 46.0 % Normal 34.0-46.0 [facility] Comment on above: Performed By: #### 2 777245, 2156010, 8173094, 71594035, 3897020 ####[address] [address] Hemoglobin (Bld) [Mass/Vol] 15.5 g/dL Normal 12.0-16.0 [facility] Comment on above: Performed By: #### 2 779691, 0177500, 8875307, 32140215, 2248998 ####[address] [address] Lymph Absolute 2.1 E9/L Normal 1.0-4.[address] [facility] Comment on above: Performed By: #### 2 223546, 1357316, 8383337, 55546898, 2020051 ####[address] [address] Lymphocytes/100 WBC (Bld) 35.1 % Normal 14.0-50.0 [facility] Comment on above: Performed By: #### 2 284276, 4915383, 1416513, 08247807, 2010233 ####[address] [address] MCH (RBC) [Entitic mass] 34.5 pg High 27.0-34.0 [facility] Comment on above: Performed By: #### 2 178399, 6659322, 1018735, 88392384, 5100859 ####[address] [address] MCHC (RBC) [Mass/Vol] 33.4 g/dL Normal 31.4-36.0 [facility] Comment on above: Performed By: #### 2 657062, 7049484, 7612028, 71060306, 0286394 ####[address] [place] [address] MCV (RBC) [Entitic vol] 103.1 fL High 80.0-100.0 [facility] Comment on above: Performed By: #### 2 049199, 8467077, 1112458, 20589046, 8722249 ####[address] [address] [place] Absolute 0.6 E9/L Normal 0.2-1.0 [facility] Comment on above: Performed By: #### 2 036946, 5742947, 7207470, 97326893, 2056502 ####[address] [address] Monocytes/100 WBC (Bld) 9.5 % Normal 4.0-14.0 [facility] Comment on above: Performed By: #### 2 788333, 9490560, 0968349, 16305785, 6481029 ####[address] [address] Neutro Absolute 3.2 E9/L Normal 2.0-7.5 [facility] Comment on above: Performed By: #### 2 854409, 5872615, 9992326, 69219574, 3663016 ####[address] [address] Neutro Auto 54.8 % Normal 36.0-75.0 [facility] Comment on above: Performed By: #### 2 935828, 3893925, 0715967, 12451655, 6723633 ####[address] [address] Platelet 322.0 E9/L Normal 150.0-500.0 [facility] Comment on above: Performed By: #### 2 433931, 1503159, 2459078, 33821376, 6141379 ####[address] [address] Platelet mean volume (Bld) [Entitic vol] 8.2 fL Normal 6.4-10.8 [facility] Comment on above: Performed By: #### 2 288886, 5145390, 1082475, 28911226, 4426557 ####[facility] [address] [place] [address] RBC 4.5 E12/L Normal 4.3-5.9 [facility] Comment on above: Performed By: #### 2 570503, 1739580, 3213984, 13135360, 7023513 ####[facility] [address] [place] [address] WBC 5.9 E9/L Normal 4.0-11.0 [facility] Comment on above: Performed By: #### 2 588288, 9919709, 9048052, 33407399, 2918272 ####[facility] [address] [place] [address] CHEMISTRYOrdered By: SYSTEM SYSTEM on 10-13-2023 Albumin [Mass/Vol] 4.1 g/dL Normal 3.3 - 5.0 gm/dL Remisol Chem Albumin/Globulin [Mass ratio] 1.2 {ratio} Normal 1.1 - 2.2 Remisol Chem Alk Phos 115 [iU]/d High 21 - 98 Int._Unit/L Remisol Chem ALT 22 [iU]/d Normal 6 - 46 Int._Unit/L Remisol Chem Anion gap [Moles/Vol] 13 mmol/L Normal 6 - 16 mEq/L R emisol Chem AST 17 [iU]/d Normal 5 - 43 Int._Unit/L Remisol Chem Bili Direct 0.2 mg/dL Normal 0.0 - 0.4 mg/dL Remisol Chem Bili Indirect 0.4 mg/dL Normal 0.1 - 0.9 mg/dL Remisol Chem Bili Total 0.6 mg/dL Normal 0.0 - 1.1 mg/dL Remisol Chem Calcium [Mass/Vol] 8.7 mg/dL Low 8.9 - 11. 1 mg/dL Rem[facility] Chem Chloride [Moles/Vol] 104 mmol/L Normal 101 - 1 11 mmol/L Remisol Chem CO2 [Moles/Vol] 24 mmol/L Normal 21 - 31 mmol/L [facility] Creatinine [Mass/Vol] 0.7 mg/dL Normal 0.5 - 1.3 mg/dL Remisol Chem eGFR 106 mL/min/1.73 m2 Normal >=59mL/mi n/1 .73 m2 Remisol Chem Globulin (S) [Mass/Vol] 3.3 g/dL Normal 1.4 - 4.0 gm/dL Rem[facility] Chem Glucose [Mass/Vol] 89 mg/dL Normal 55 - 199 mg/dL Remisol Chem Lipase Lvl 11 unit/L Low 13 - 58 unit/L Remisol Chem Potassium [Moles/Vol] 2.9 mmol/L Low 3.5 - 5.3 mmol/L Remisol Chem Protein [Mass/Vol] 7.4 g/dL Normal 6.0 - 7.8 gm/dL Remisol Chem Sodium [Moles/Vol] 138 mmol/L Normal 135 - 145 mmol/L Remisol Chem Urea nitrogen [Mass/Vol] 9 mg/dL Normal 5 - 21 mg/dL Remisol Chem Urea nitrogen/Creatinine [Mass ratio] 13 mg/mg Normal 10 - [address] Abdomen/Pelvis w/ Contras ton 10-13-2023 CT Abdomen/Pelvis w/ Contrast Exam Date/Time: 10/13/2023 18:16 EST Reason for Exam: Abdominal pain, acute, nonlocalized;Other (please specify) Report IMPRESSION: No acute process in the abdomen/pelvis. EXAMINATION: CT Abdomen/Pelvis w/ Contrast HISTORY: Abdominal pain, acute, nonlocalized. TECHNIQUE: CT of the abdomen and pelvis was performed using standard technique with intravenous contrast, scanning from just above the dome of the diaphragm to the symphysis pubis. Including delayed images through the kidneys. Including sagittal and coronal reconstructions on both phases. All CT scans at this facility use dose modulation, iterative reconstruction, and/or weight based dosing when appropriate to reduce radiation dose to as low as reasonably achievable. COMPARISON: None. RESULT: Liver: Lobular contour. No suspicious lesion. Biliary: Gallbladder unremarkable. No biliary ductal dilation. Pancreas: No mass or duct dilation. Spleen: No mass or splenomegaly. Adrenals: No mass. Kidneys: No mass, calculus or hydronephrosis. Delayed phase imaging with normal excreted contrast in the renal collecting system, ureters, and bladder. GI tract: No dilation or wall thickening. Reported appendectomy. No evidence for diverticulitis. Lymph nodes: No abdominal or pelvic lymphadenopathy. Mesentery/Peritoneum /Retroperitoneum: No ascites or mass. Vasculature: The celiac axis and SMA are patent. The portal vein and branches, splenic vein, SMV, and hepatic veins are patent. Moderate arterial atherosclerotic Report disease without aneurysm. Pelvis: No significant free fluid. Hysterectomy. Bladder decompressed. Bones: No distinct acute osseous findings. Remote appearing right-sided pubic rami fractures. Underlying decreased bone mineral density. Degenerative changes. Scoliosis with curvature to the left in the lumbar spine. Partially imaged artifact from fusion hardware in the thoracic spine. Soft tissues: Multiple small ventral wall defects containing fat. Lower thorax: Unremarkable. Ordering Provider: El Mullen FINAL REPORT Dictated: 10/13/2023 6:21 pm Venu Persaud MD Signed (Electronic Signature): 10/13/2023 6:21 pm Signed by: Venu Persaud MD Transcribed by: CARISA Technologist: LEAH Technical Comments GFR (mL/min/1/73m2) n/a age Contrast: Isovue 300 Contrast amount in ml's: 100 Normal [facility] Consent for Treatmenton 09-25 Consent for Treatment [id number] #1.00TIFF Normal [facility] Discharge Instructionson Discharge Instructions [id number] #1.00TIFF Normal [facility] ED Clinical Summaryon 2023 ED Clinical Summary [place] [id number] ED Clinical Summary Person Information Name: NATHANIEL MARCIAL [place] Age: 47 Years : 1975 Sex: Female Language: Burkinan PCP: Gracy Medina MD Marital Status: Phone: [phone] Visit Id: Visit Reason: Constipation; LOWER ADB PAIN Speciality: Acuity: 3 Enc Type: Emergency Med Service: Emergency Arrival: 10/13/2023 15:37:09 Discharge: 10/13/2023 18:55:35 LOS: 000 03:18 Checkin: 10/13/2023 15:37:09 Checkout: 10/13/2023 18:55:35 Dispo Type: Home (Routine DC) EVENTS: Event Name Event Status Request Date/Time Start Date/Time Complete Date/Time Arrive Complete 10/13/2023 15:37:09 10/13/2023 15:37:09 10/13/2023 15:37:09 Document Home Meds Request 10/13/2023 15:37:09 Triage Complete 10/13/2023 15:37:09 10/13/2023 15:54:15 10/13/2023 15:54:15 Registration Complete 10/13/2023 15:44:31 10/13/2023 15:44:31 10/13/2023 15:44:31 Reg Complete Request 10/13/2023 15:44:31 Reg Bed Request Complete 10/13/2023 15:44:31 10/13/2023 15:44:31 10/13/2023 15:44:31 Dr Exam Complete 10/13/2023 15:46:30 10/13/2023 15:46:30 10/13/2023 15:46:30 Registration Start 10/13/2023 15:46:30 10/13/2023 15:54:38 Isolation Screening Request 10/13/2023 15:54:16 Bed Assign Complete 10/13/2023 15:54:38 10/13/2023 15:54:38 10/13/2023 15:54:38 RN Exam Complete 10/13/2023 15:54:38 10/13/2023 16:15:59 10/13/2023 16:15:59 X-Ray Cancel 10/13/2023 15:59:03 10/13/2023 16:00:00 10/13/2023 16:17:12 Dr Exam Complete 10/13/2023 16:08:26 10/13/2023 16:08:26 10/13/2023 16:08:26 Meds Admin Complete 10/13/2023 16:09:56 10/13/2023 16:54:12 Pending Labs Complete 10/13/2023 16:09:56 10/13/2023 17:27:21 Lab Complete 10/13/2023 16:09:56 10/13/2023 17:27:21 Urine Collect Complete 10/13/2023 16:09:56 10/13/2023 16:59:33 CT Complete 10/13/2023 16:09:56 10/13/2023 17:50:20 10/13/2023 18:16:19 Pending Labs Complete 10/13/2023 17:13:02 10/13/2023 17:13:02 10/13/2023 17:27:21 Lab Complete 10/13/2023 17:13:02 10/13/2023 17:13:02 10/13/2023 17:27:21 Pending Labs Complete 10/13/2023 17:46:28 10/13/2023 17:46:28 10/13/2023 17:46:28 Pending Labs Complete 10/13/2023 17:48:49 10/13/2023 17:48:49 10/13/2023 17:48:49 Discharge Complete 10/13/2023 18:37:43 10/13/2023 18:55:43 10/13/2023 18:55:43 Meds Admin Complete 10/13/2023 18:39:59 10/13/2023 18:46:34 Transfer Complete 10/13/2023 18:55:43 10/13/2023 18:55:43 10/13/2023 18:55:43 ADDRESS: [address] [place] [address] DR RACHELE Doran [facility] [phone] PHYS DOC NOTES: MEDICAL INFORMATION: Prescriptions Given: Medications to Continue Taking That Have Changed [facility]/pharmacy #[id number], [address], [place] [id number], [phone] START: dicyclomine (Bentyl 10 mg Cap) 1 Capsules By Mouth 4 times a day for 14 Days. Refills: 0. Other Medications START: dicyclomine (Bentyl 20 mg Tab) 1 Tablets By Mouth 4 times a day as needed As needed for pain or spasm. Refills: 0. Medications to Continue with No [...] l (Symbicort) Inhalation 2 times a day. docusate (Colace 100 mg Cap) 1 Capsules [...] Mouth at bedtime. PATIENT EDUCATION INFORMATION: Instructions: Abdominal Pain, Adult, Jtws-qb-Abkk; Constipation, Adult Follow up: With: Address: When: [place] [place] [address] [facility] In 3 days 10/16/2023 Comments: Follow-up with your primary care provider in 3 to 5 days. If symptoms worsen, do not improve, or new symptoms arise please report back to emergency department for further evaluation. DIAGNOSIS: Abdominal pain; Constipation; Hypokalemia Normal [facility] ED Patient Education Noteon 10-13-2023 ED Patient Education Note Gastroenterology Abdominal Pain, Adult Many things can cause belly (abdominal) pain. Most times, belly pain is not dangerous. Many cases of belly pain can be watched and treated at home. Sometimes, though, belly pain is serious. Your doctor will try to find the cause of your belly pain. Follow these instructions at home: Medicines ? Take dsro-awu-qqgsivk and prescription medicines only as told by your doctor. ? Do not take medicines that help you poop (laxatives) unless told by your doctor. General instructions ? Watch your belly pain for any changes. ? Drink enough fluid to keep your pee (urine) pale yellow. ? Keep all follow-up visits as told by your doctor. This is important. Contact a doctor if: ? Your belly pain changes or gets worse. ? You are not hungry, or you lose weight without trying. ? You are having trouble pooping (constipated) or have watery poop (diarrhea) for more than 2?3 days. ? You have pain when you pee or poop. ? Your belly pain wakes you up at night. ? Your pain gets worse with meals, after eating, or with certain foods. ? You are vomiting and cannot keep anything down. ? You have a fever. ? You have blood in your pee. Get help right away if: ? Your pain does not go away as soon as your doctor says it should. ? You cannot stop vomiting. ? Your pain is only in areas of your belly, such as the right side or the left lower part of the belly. ? You have bloody or black poop, or poop that looks like tar. ? You have very bad pain, cramping, or bloating in your belly. ? You have signs of not having enough fluid or water in your body (dehydration), such as: ? Dark pee, very little pee, or no pee. ? Cracked lips. ? Dry mouth. ? Sunken eyes. ? Sleepiness. ? Weakness. ? You have trouble breathing or chest pain. Summary ? Many cases of belly pain can be watched and treated at home. ? Watch your belly pain for any changes. ? Take azmv-xde-cuyxvpx and prescription medicines only as told by your doctor. ? Contact a doctor if your belly pain changes or gets worse. ? Get help right away if you have very bad pain, cramping, or bloating in your belly. This information is not intended to replace advice given to you by your health care provider. Make sure you discuss any questions you have with your health care provider. Document Revised: 01/20/2020 Document Reviewed: 01/20/2020 [employer] Patient Education ? 2022 [employer]. Constipation, Adult Constipation is when a person has fewer than three bowel movements in a week, has difficulty having a bowel movement, or has stools (feces) that are dry, hard, or larger than normal. Constipation may be caused by an underlying condition. It may become worse with age if a person takes certain medicines and does not take in enough fluids. Follow these instructions at home: Eating and drinking ? Eat foods that have a lot of fiber, such as beans, whole grains, and fresh fruits and vegetables. ? Limit foods that are low in fiber and high in fat and processed sugars, such as fried or sweet foods. These include finnish fries, hamburgers, cookies, candies, and soda. ? Drink enough fluid to keep your urine pale yellow. General instructions ? Exercise regularly or as told by your health care provider. Try to do 150 minutes of moderate exercise each week. ? Use the bathroom when you have the urge to go. Do not hold it in. ? Take wgxl-spf-emosojq and prescription medicines only as told by your health care provider. This includes any fiber supplements. ? During bowel movements: ? Practice deep breathing while relaxing the lower abdomen. ? Practice pelvic floor relaxation. ? Watch your condition for any changes. Let your health care provider know about them. ? Keep all follow-up visits as told by your health care provider. This is important. Contact a health care provider if: ? You have pain that gets worse. ? You have a fever. ? You do not have a bowel movement after 4 days. ? You vomit. ? You are not hungry or you lose weight. ? You are bleeding from the opening between the buttocks (anus). ? You have thin, pencil-like stools. Get help right away if: ? You have a fever and your symptoms suddenly get worse. ? You leak stool or have blood in your stool. ? Your abdomen is bloated. ? You have severe pain in your abdomen. ? You feel dizzy or you faint. Summary ? Constipation is when a person has fewer than three bowel movements in a week, has difficulty having a bowel movement, or has stools (feces) that are dry, hard, or larger than normal. ? Eat foods that have a lot of fiber, such as beans, whole grains, and fresh fruits and vegetables. ? Drink enough fluid to keep your urine pale yellow. ? Take aicy-nim-potketc and prescription medicines only as told by your health care provider. This includes any fiber supplements. This information is not intended t (more content not included)... Normal [facility] ED Patient Summaryon 024 ED Patient Summary [address] [address] Patient Discharge Instructions Person Information Name: NATHANIEL MARCIAL Age: 47 Years Arrival Date: 10/13/2023 15:37:09 Discharge Diagnosis: Abdominal pain; Constipation; Hypokalemia Primary Care Physician: Gracy Medina MD Provider Information Primary Provider: Bashir Loera DO Advanced Tool Keeper:None The exam and treatment you received in the Emergency Department were for an urgent problem and are not intended as complete care. It is important that you follow up with a doctor, nurse practitioner, or physician?s licensed physical therapy assistant for ongoing care. If your symptoms become worse or you do not improve as expected and you are unable to reach your usual health care provider, you should return to the Emergency Department. We are available 24 hours a day. NATHANIEL MARCIAL has been given the following list of patient education materials, prescriptions and follow-up instructions: Follow-up Instructions: With: Address: When: Gracy Medina [facility] [place] [address] Business (1) In 3 days 10/16/2023 Comments: Follow-up with your primary care provider in 3 to 5 days. If symptoms worsen, do not improve, or new symptoms arise please report back to emergency department for further evaluation. In the event that this physician does not participate in your insurance network, please consult with your insurance company to find a nearby participating provider. Patient Education Materials: Abdominal Pain, Adult, Fgaa-xa-Uijv; Constipation, Adult A MESSAGE TO ALL PATIENTS REGARDING OPIOIDS PRESCRIPTION OPIOIDS: WHAT YOU NEED TO KNOW Prescription opioids can be used to help relieve wrxrsarx-cr-qpdcbr pain and are often prescribed following a [...] ? Visit www.cdc.gov/drugover dose to learn about (more content not included)... Normal [facility] HEMATOLOGYOrdered By: SYSTEM SYSTEM on 10-13-2023 Basophil Absolute 0.0 E9/L Normal 0.0 - 0.2 E9/L Remisol Heme Basophils/100 WBC (Bld) 0.5 % Normal 0.0 - 2.0 % Remisol Heme Eos Absolute 0.0 E9/L Normal 0.0 - 0.5 E9/L Remisol Heme Eosinophils/100 WBC (Bld) 0.1 % Normal 0.0 - 8.0 % Remisol Heme Erythrocyte distribution width (RBC) [Ratio] 16.1 % High 10.9 - 14.2 % Remisol Heme Hematocrit (Bld) [Volume fraction] 46.0 % Normal 34.0 - 46.0 % Remisol Heme Hemoglobin (Bld) [Mass/Vol] 15.5 g/dL Normal 12.0 - 16.0 gm/dL Remisol Heme Lymph Absolute 2.1 E9/L Normal 1.0 - 4.0 E9/L Remisol Heme Lymphocytes/100 WBC (Bld) 35.1 % Normal 14.0 - 50.0 % Remisol Heme MCH (RBC) [Entitic mass] 34.5 pg High 27.0 - 34.0 pg Remisol Heme MCHC (RBC) [Mass/Vol] 33.4 g/dL Normal 31.4 - 36.0 gm/dL Remisol Heme MCV (RBC) [Entitic vol] 103.1 fL High 80.0 - 100.0 fL Remisol Heme [place] Absolute 0.6 E9/L Normal 0.2 - 1.0 E9/L Remisol Heme Monocytes/100 WBC (Bld) 9.5 % Normal 4.0 - 14.0 % Remisol Heme Neutro Absolute 3.2 E9/L Normal 2.0 - 7.5 E9/L Remisol Heme Neutro Auto 54.8 % Normal 36.0 - 75.0 % Remisol Heme Platelet 322.0 E9/L Normal 150.0 - 500.0 E9/L Remisol Heme Platelet mean volume (Bld) [Entitic vol] 8.2 fL Normal 6.4 - 10.8 fL Remisol Heme RBC 4.5 E12/L Normal 4.3 - 5.9 E12/L Remisol Heme WBC 5.9 E9/L Normal 4.0 - 11.0 E9/L Remisol Heme Hep Func Panelon 10-13-2023 Albumin [Mass/Vol] 4.1 g/dL Normal 3.3-5.0 [facility] Comment on above: Performed By: #### 2 936609, 6910894, 4504151, 09139758, 7823646 ####[facility] [address] [facility] [place] [address] Albumin/Globulin [Mass ratio] 1.2 {ratio} Normal 1.1-2.2 [facility] Comment on above: Performed By: #### 2 672376, 4747281, 3963825, 71694999, 0987730 ####[facility] [address] [place] [address] Alk Phos 115 Int._Unit/L High 21-98 [facility] Comment on above: Performed By: #### 2 770432, 3471114, 9599559, 00160783, 2888721 ####[facility] [address] [place] [address] ALT 22 Int._Unit/L Normal 6-[address] [facility] Comment on above: Performed By: #### 2 195380, 6047336, 3479132, 31137758, 8800750 ####[facility] [address] [address] AST 17 Int._Unit/L Normal 5-[address] [facility] Comment on above: Performed By: #### 2 987947, 6934777, 6940883, 80198651, 9478303 ####[facility] [address] [place] [address] Bili Direct 0.2 mg/dL Normal 0.0-0.4 [facility] Comment on above: Performed By: #### 2 588891, 6253143, 2411942, 12719939, 3309651 ####[facility] [address] [place] [address] Bili Indirect 0.4 mg/dL Normal 0.1-0.9 [facility] Comment on above: Performed By: #### 2 775254, 6954720, 2635904, 92358273, 5855802 ####[facility] [address] [place] [address] Bili Total 0.6 mg/dL Normal 0.0-1.1 [facility] Comment on above: Performed By: #### 2 610821, 3683398, 8826013, 40512815, 1597859 ####[facility] [address] [place] [address] Globulin (S) [Mass/Vol] 3.3 g/dL Normal 1.4-4.0 [facility] Comment on above: Performed By: #### 2 793679, 2228114, 7280043, 15298505, 9258767 ####[address] [address] Protein [Mass/Vol] 7.4 g/dL Normal 6.0-7.8 [facility] Comment on above: Performed By: #### 2 966777, 4522000, 0075662, 86476674, 8842273 ####[facility] [address] [place] [address] Lipase Levelon 10-13-2023 Lipase Lvl 11 unit/L Low 13-58 [facility] Comment on above: Performed By: #### 2 225354, 9122137, 2674681, 66903376, 8179026 ####[facility] [address] [place] [address] UA With Cult Reflexon 2023 Bacteria LM Ql (Urine sed) TRACE Normal Trace [facility] Comment on above: Performed By: #### 1 6567888 ####[address] [address] Bilirubin Ql (U) Negative Normal Negative [facility] Comment on above: Performed By: #### 1 3529417 ####[facility] [address] [place] [address] Clarity (U) CLEAR Normal Clear [facility] Comment on above: Performed By: #### 1 5061819 ####[address] [address] Color (U) YELLOW Normal Yellow [facility] Comment on above: Performed By: #### 1 7094791 ####[address] [address] Epithelial cells.squamous LM.HPF (Urine sed) [#/Area] 0-2 Normal 0-2 [facility] Comment on above: Performed By: #### 1 9809768 ####[facility] [address] [place] [address] Glucose Test strip (U) [Mass/Vol] Negative Normal Negative [facility] Comment on above: Performed By: #### 1 2770693 ####[facility] [address] [place] [address] Hemoglobin Ql (U) TRACE Abnormal Negative [facility] Comment on above: Performed By: #### 1 2236228 ####[address] [address] Ketones (U) [Mass/Vol] Negative Normal Negative [facility] Comment on above: Performed By: #### 1 5741460 ####[address] [address] [place].plasma/[place] .RBC (Bld) [Mass ratio] 0-3 Normal 0-3 [facility] Comment on above: Performed By: #### 1 8767299 ####[facility] [address] [place] [address] Nitrite Ql (U) Negative Normal Negative [facility] Comment on above: Performed By: #### 1 6859373 ####[address] [address] pH (U) 6.5 [pH] Invalid Interpretation Code 5.0-9.0 [facility] Comment on above: Performed By: #### 1 8672881 ####[address] [address] Protein (U) [Mass/Vol] Negative Normal Negative [facility] Comment on above: Performed By: #### 1 0137651 ####[address] [address] Specific gravity (U) [Rel density] <=1.005 Invalid Interpretation Code 1.005-1.030 [facility] Comment on above: Performed By: #### 1 9420043 ####[facility] [address] [place] [address] Type of Urine collection method Clean Catch Normal [facility] Comment on above: Performed By: #### 1 4187608 ####[facility] [address] [place] [address] Urobilinogen Qn (U) 0.2 {Arturo'U}/dL Normal 0.0-1.0 [facility] Comment on above: Performed By: #### 1 3912236 ####[place] [address] [place] [address] WBC Auto Ql (U) Negative Normal Negative [facility] Comment on above: Performed By: #### 1 5535194 ####[facility] [address] [place] [address] WBC LM.HPF (Urine sed) [#/Area] 0-5 Normal 0-5 [facility] Comment on above: Performed By: #### 1 7983610 ####[facility] [address] [place] [address] URINALYSISOrdered By: Annette Porter on 10-13-2023 Bacteria LM Ql (Urine sed) Trace /HPF Normal Trace/HPF [facility] UA Auto SS Bilirubin Ql (U) Negative (10/13/23 4:23 PM) Normal Negative [facility] UA Auto SS Clarity (U) Clear (10/13/23 4:23 PM) Normal Clear [facility] UA Auto SS Color (U) Yellow (10/13/23 4:23 PM) Normal Yellow [facility] UA Auto SS Epithelial cells.squamous LM.HPF (Urine sed) [#/Area] 0-2 /HPF Normal 0-2/HPF [facility] UA Aut o SS Glucose Test strip (U) [Mass/Vol] Negative (10/13/23 4:23 PM) Normal Negative [facility] UA Auto SS Hemoglobin Ql (U) Trace *ABN* (10/13/23 4:23 PM) Invalid Interpretation Code Negative [facility] UA Auto SS Ketones (U) [Mass/Vol] Negative (10/13/23 4:23 PM) Normal Negative [facility] UA Auto SS [place].plasma/[place] .RBC (Bld) [Mass ratio] 0-3 /HPF Normal 0-3/HPF [facility] UA Auto SS Nitrite Ql (U) Negative (10/13/23 4:23 PM) Normal Negative [facility] UA Auto SS pH (U) 6.5 *NA* (10/13/23 4:23 PM) Invalid Interpretation Code 5.0 - 9.0 [facility] UA Auto SS Protein (U) [Mass/Vol] Negative (10/13/23 4:23 PM) Normal Negative [facility] UA Auto SS Specific gravity (U) [Rel density] <=1.005 *NA* (10/13/23 4:23 PM) Invalid Interpretation Code 1.005 - 1.030 [facility] UA Auto SS UA Spec Desc Clean Catch (10/13/23 4:23 PM) Normal [facility] UA Auto SS Urobilinogen Qn (U) 0.7237175 {Arturo'U}/dL Normal 0.0 - 1.0 EU/dL [facility] UA Auto SS WBC Auto Ql (U) Negative (10/13/23 4:23 PM) Normal Negative [facility] UA Auto SS WBC LM.HPF (Urine sed) [#/Area] 0-5 /HPF Normal 0-5/HPF [facility] UA Auto SS eGFRon 10-13-2023 eGFR 106 mL/min/1.73 m2 Normal >=59 [facility] Comment on above: Order Comment: Order added by Discern Expert. Performed By: #### 2 834928, 4284339, 1232183, 99136554, 1030767 ####[facility] [address] [place] [address] C. diff by PCRon 08-31-2023 Clostridium difficile by PCR Negative Normal Negative [facility] Comment on above: Result Comment: This test result should be correlated with clinical presentations and medical history by a healthcare provider to determine its clinical significance. Performed By: #### 4 [id number] ####[facility] [address] [place] [address] Consent for Treatmenton Consent for Treatment [id number] #1.00TIFF Normal [facility] Physician Orderon 08-30-2023 Physician Order [id number] 6#1.00TIFF Normal [facility] Consent for Treatmenton Consent for Treatment [id number] #1.00CD:127 Normal [facility] Physician Orderon 05-31-2023 Physician Order [id number] #1.00CD:127 Normal [facility] XR Foot 3+ Views Lefton XR [...] mGy = na DAP = na Normal [facility] 05-11-2023 [facility] NATHANIEL MARCIAL ([id number]) 1975 F Date Time Provider Department 05/11/23 SHARITA MYERS [facility] During your visit today, we recorded the following information about you: Marcie Chou, RN 05/11/2023 12:57 PM Signed I spoke [...] Fully Assessed Reason for Visit: Patient Question [3760] Cmt: Offering patient surgical date. Prescriptions as [...] Encounter Status:Closed by MARCIE CHOU on 05/11/23 Normal [facility] Telephone (ORQ) NATHANIEL MARCIAL ([id number]) 1975 F Date Time Provider Department 05/11/23 SHARITA MYERS OR[facility] During your visit today, we recorded the following information about you: Tony Itzel Vinita 05/11/2023 10:35 AM Signed Left VM and sent Edúkame message to patient to see if she [...] Status:Closed by VINITA CRABTREE on 05/11/23 Normal [facility] Office Visiton 04-14-2023 Follow-up visit [id number] Nathaniel Marcial 1975 F Date Provider Department Center 04/14/2023 3848-BETH GUEVARA EVERETTE [facility] Family History Problem Relation Age of Onset Heart failure Mother Heart failure Father Transient ischemic attack Father Family Status - Relation Status Age at Mother Father Level of Service:88070 [place] OFFICE/OUTPATIENT ESTABLISHED MOD MDM 30-39 MIN Normal [facility] Sara 04-11-2023 CNPN Telephone (PODITW) NATHANIEL MARCIAL ([id number]) 1975 F Date Time Provider Department 04/11/23 AURELIANO VANN PODNOAM During your visit today, we recorded the following information about you: Abi Montague 04/11/2023 12:06 PM Signed Patient states that [employer] is unable to send out bone stimulator due to incorrect verbiage in order. Please all Leigh Ann at [phone] to clarify Selina Villa 04/11/2023 1:21 PM [...] MA 04/12/2023 11:00 AM Signed Faxed to [phone] per below note. Thank you, MARTIN Angel Deborah 04/12/2023 1:29 PM Signed Leigh Ann calling back---everything was sent for the wrong ankle. Please call Leigh Ann at [phone] Aureliano Vann DPM 04/12/2023 2:51 PM Signed [...] she is not hearing back from office. Mesha Chou from Dr. Myers office said we can contact her at [phone] with any questions. Please contact patient or [...] Patient scheduled for Podiatry on 05/30 at [facility] Allergies As of Date: 04/11/2023 Noted [...] 29 M (more content not included)... Normal [facility] CNOVon 04-10-2023 CNOV Office Visit (MORH) NATHANIEL MARCIAL ([id number]) 1975 F Date Time Provider Department 04/10/23 10:15 AM SHARITA MYERS During your visit today, we recorded the [...] As you know she is a 47-year-old uyiu-gdtd-oevuzogc female with complaints in her shoulder that [...] rotation i (more content not included)... Normal [facility] XR SHLDR >/=3V AP/PIEDAD AP/OTH R RTon [...] Collapse of the humeral head as described. Avid Editor: MAX Transcribe Date/Time: Apr 13 2023 4:03P Dictated by : PAUL REED MD This examination was interpreted and the report reviewed and electronically signed by: PAUL REED MD on Apr 13 2023 4:04PM EST [id number] [facility] CT shoulder RT wo [facility] 03-25 CT shoulder RT wo [facility] [place] [address] CT Scan Report Signed Patient: Nathaniel Marcial MR#: [id number] 51 : 1975 Acct:[id number] Age/Sex: 47 / F ADM Date: 04/07/23 Loc: ER Room: Type: [facility] ER Attending Dr: Copies to: LEE Coleman [...] Will May M.D.04/07/2023 1:18 PM Dictation Location: [place] [address] Transcribed By: [facility] 04/07/23 1318 Dictated By: Will May DO 04/07/23 1310 Signed By: 04/07/231317 [facility] CNOVon 03-30-2023 CNOV Office Visit (ORTHMN) NATHANIEL MARCIAL ([id number]) 1975 F Date Time Provider Department 03/30/23 [...] seen Dr. Nate Gavin with [facility] in [place] and ordered a MRI of her shoulder [...] belly press test. Positive speeds test. Positive Guthrie's test. Positive impingement signs (more content not included)... Normal [facility] CNOVon 03-27-2023 CNOV Office Visit (PODIMN) NATHANIEL MARCIAL ([id number]) 1975 F Date Time Provider Department 03/27/23 [...] Plan: - (more content not included)... Normal [facility] XR ANKLE 3V AP/LAT/OBL LTon 03-27-2023 [...] WHICH MAY RELATED TO DISUSE AND/OR HYPEREMIA. Avid Editor: MAX Transcribe Date/Time: Mar 27 2023 12:44P Dictated by : KENDALL GUTIERREZ MD This examination was interpreted and the report reviewed and electronically signed by: KENDALL GUTIERREZ MD on Mar 27 2023 12:45PM EST [id number] Normal [facility] XR ANKLE GENERAL 3V AP/LAT/O BL LEFTon 03-27-2023 [facility] BD Bone Density DEXAon 02-06 BD Bone [...] by: Royce Levine MD, V. Transcribed by: CARISA Technologist: LYNNE Colvin [facility] Consent for Treatmenton 01-23 Consent for Treatment [id number] #1.00CD:127 [facility] ED Note-Physicianon 02-06-20 23 ED Note-Physician Basic Information Time Seen: Perry [...] Gavin In 3 days 02/03/2023 EDT [address] [place] [address]- Business (1) Additional Instructions: Gracy Carol In 3 days 02/03/2023 EDT [address] [place] [address]- Business (1) Additional Instructions: Patient Education Foot Sprain Attestation Patient seen and evaluated by the physician licensed physical therapy assistant. Attending physician was present in the emergency department and supervised care. This visit was performed by both the physician and an APC. I performed all aspects of the MDM as documented. This report was transcribed using voice recognition software. Every effort was made to ensure accuracy, however, inadvertently computerized cancer registry coordinator mistakes may be present. Appropriate healthcare PPE [...] 01/01/2022 Current, Marijuana, (more content not included)... [facility] Comment on above: Result Comment: Elec tronically Signed By: Perry Osorio PA-C\.br\Date and Time Signed: 01/31/23 18:56 EDT\.br\Electronically Co-Signed By: Eren Ramires DO\.br\Date and Time Co-Signed: 02/05/23 07:11 EDT Physician Orderon 02-01-2023 Physician Order [id number] #1.00CD:127 [facility] Consent for Treatmenton Consent for Treatment [id number] #1.00CD:127 [facility] Discharge Instructionson Discharge Instructions [id number] 6#1.00CD:127 [facility] ED Clinical Summaryon 2022 ED Clinical Summary [place] [id number] ED Clinical Summary Person Information Name: NATHANIEL MARCIAL Kenyatta/[facility] Age: 47 Years : 1975 Sex: Female Language: Burkinan PCP: Gracy Medina MD Marital Status: Phone: [phone] Visit Id: Visit Reason: Foot pain-swelling; LEFT [...] 01/31/2023 11:16:35 01/31/2023 11:16:35 01/31/2023 11:16:35 ADDRESS: [address] [place] [address] [address] [place] [id number] PHYS DOC NOTES: MEDICAL INFORMATION: Prescriptions Given: [...] up: With: Address: When: Nate Gavin [address] [place] [address] Business (1) In 3 days 02/03/2023 With: Address: When: Gracy Medina [address] [place] [address] Business (1) In 3 days 02/03/2023 DIAGNOSIS: Foot sprain Normal [facility] ED Patient Education Noteon 01-31-2023 ED Patient [...] on your foot. General instructions ? Take gkzo-ckk-gjcvbic and prescription medicines only as told by your health care provider. ? When you can walk without pain, wear supportive shoes t (more content not included)... Normal [facility] ED Patient Summaryon 023 ED Patient Summary [address] [address] Patient Discharge Instructions Person Information Name: NATHANIEL MARCIAL Age: 47 Years Arrival Date: 01/31/2023 09:35:54 Discharge Diagnosis: Foot sprain Primary Care Physician: Gracy Medina MD Provider Information Primary Provider: Eren Ramires DO Advanced Tool Keeper:Perry Osorio PA-C The exam and treatment you received in the Emergency Department were for an urgent problem and are not intended as complete care. It is important that you follow up with a doctor, nurse practitioner, or physician?s licensed physical therapy assistant for ongoing care. If your symptoms [...] Follow-up Instructions: With: Address: When: Nate Gavin [address] [place], [place] [address] [address] Business (1) In 3 days 02/03/2023 With: Address: When: Gracy Medina [address] [place] [address] [employer] (1) In 3 days 02/03/2023 In the event that this physician does not participate in your insurance network, please consult with your insurance company to find a nearby participating provider. Patient Education Materials: Foot Sprain A MESSAGE TO ALL PATIENTS REGARDING OPIOIDS PRESCRIPTION OPIOIDS: WHAT YOU NEED TO KNOW Prescription opioids can be used to help relieve lgtfluvv-pb-puyldz pain and are often prescribed following a [...] be struggling with addiction, tell your health manager medicare marketing a (more content not included)... Normal [facility] XR Foot 3+ Views Lefton 05-0 XR Foot 3+ Views Left Exam Date/Time: 01/31/2023 10:09 EDT Reason for Exam: Pain, Traumatic Report IMPRESSION: Diffusely decreased bone mineral density as discussed, which may relate to disuse. No distinct acute displaced fracture. EXAMINATION/TECHNIQU E: XR Foot 3+ Views Left HISTORY: History of recent ankle surgery. [place] popping sensation with pain and swelling along [...] REPORT Dictated: 01/31/2023 12:22 pm Venu Persaud MD. Signed (Electronic Signature): 01/31/2023 12:22 pm Signed by: Venu Persaud MD Transcribed by: CARISA Technologist: MIGUEL ANGEL Technical Comments Radiation Dose: Ka,r in mGy = na DAP = na Normal [facility] Physician Orderon 01-26-2023 Physician Order [id number] Normal [facility] Progress Noteson 01-11-2023 [employer]ube [employer] Authentication Interface Message Text EMERGENCY TRIAGE, TREAT [...] Completed by: Jarred Rosado MD Normal [email or web address] CHEMISTRYOrdered By: SYSTEM SYSTEM on 11-12-2022 Anion gap [Moles/Vol] 14 mmol/L Normal 6 - 16 mEq/L [facility] Calcium [Mass/Vol] 8.7 mg/dL Low 8.9 - 11. 1 mg/dL [facility] Chloride [Moles/Vol] 100 mmol/L Low 101 - 1 11 mmol/L [facility] CO2 [Moles/Vol] 24 mmol/L Normal 21 - 31 mmol/L [facility] Creatinine [Mass/Vol] 1.0 mg/dL Normal 0.5 - 1.3 mg/dL [facility] Remisol GFR/1.73 sq M.predicted among blacks MDRD (S/P/Bld) [Vol rate/Area] mL/min/1.73 m2 Normal >=59mL/min/1 .73 m2 [facility] S GFR/1.73 sq M.predicted among non-blacks MDRD (S/P/Bld) [Vol rate/Area] 59 mL/min/1.73 m2 Normal >=59mL/min/1 .73 m2 [facility] Chem S Glucose [Mass/Vol] 97 mg/dL Normal 55 - 199 mg/dL [facility] Potassium [Moles/Vol] 4.0 mmol/L Normal 3.5 - 5.3 mmol/L [facility] Sodium [Moles/Vol] 134 mmol/L Low 135 - 145 mmol/L [facility] Urea nitrogen [Mass/Vol] 14 mg/dL Normal 5 - 21 mg/dL [facility] Urea nitrogen/Creatinine [Mass ratio] 14 mg/mg Normal 10 - 20 [facility] COAGULATIONOrdered By: Davina Dai on 11-12-2022 aPTT Coag (PPP) [Time] 31.1 s Normal 25.1 - 36.5 second(s) [facility] Auto Coag INR Coag (PPP) [Relative time] 1.0 {INR} Invalid Interpretation Code [facility] Auto Coag PT Coag (PPP) [Time] 10.8 s Normal 9.4 - 1 2.5 second(s) [facility] Auto Coag HEMATOLOGYOrdered By: SYSTEM SYSTEM on 11-12-2022 Basophils/100 [...] 243.0 E9/L Normal 150.0 - 500.0 E9/L [facility] HemeAutoSS RBC (Bld) [#/Vol] 4.0 E12/L Low 4.3 - 5.9 E12/L [facility] HemeAutoSS WBC corrected for nucl RBC Auto (Bld) [#/Vol] 7.7 E9/L Normal 4.0 - 11.0 E9/L [facility] HemeAutoSS CNOVon 07-28-2022 CNOV Office Visit ([facility]) NATHANIEL MARCIAL ([id number]) 1975 F Date Time Provider Department 07/28/22 [...] PM Signed [facility]IN[facility] NOTE Nathaniel Mcgill Marialuisa [id number] HPI: Nathaniel Marcial is a 46 year [...] not recall but is following with a tobacco flavorer in 1 week. O: BP 125/89 Pulse [...] Cellulitis [L03. (more content not included)... Normal [facility] OVA AND PARASITE EXAMINATION on 05-18-2022 Ova + Parasite Exam Final report Normal [facility] Comment on above: Result Comment: Thes e results were obtained using wet preparation(s) and trichrome stained smear. This test does not include testing for Cryptosporidium parvum, Cyclospora, or Microsporidia. Performed By: #### O VAPE #### [facility] [address] [place] [address] Dr. Jemima Paul Result 1 Comment Normal [facility] Comment on above: Result Comment: No o va, cysts, or parasites seen. . One negative specimen does not rule out the possibility of a parasitic infection. Performed By: #### O VAPE #### [facility] [address] [place] [address] Dr. Jemima Paul LACTOFERRIN FECAL QUANTon Lactoferrin, Fecal, Quant. <1.00 Normal 0.00-7.24 [facility] Comment on above: Result Comment: Re sults [...] (IBS). Performed By: #### L ACTFQ #### [facility] [address] [place] [address] Dr. Jemima Paul STOOL CULTUREon 05-16-2022 Campylobacter Culture Final report Normal [facility] Comment on above: Performed By: #### C XSTOOL #### [facility] [address] [place] [address] Dr. Jemima Paul E coli Shiga Toxin EIA Negative Normal Negative [facility] Comment on above: Performed By: #### C XSTOOL #### [facility] [address] [place] [address] Dr. Jemima Paul Result 1 Comment Normal [facility] Comment on above: Result Comment: No S almonella or Shigella recovered. Performed By: #### C XSTOOL #### [facility] [address] [place] [address] Dr. Jemima Paul Result Comment: No C ampylobacter species isolated. Salmonella/Shigella Screen Final report Normal [facility] Comment on above: Performed By: #### C XSTOOL #### [facility] [address] [place] [address] Dr. Jemima Paul C. DIFF PCRon 05-11-2022 C. DIFFICILE PCR Negative Normal NEGATIVE [facility] Comment on above: Performed By: #### C DIFPOC #### [facility] [address] [place] [address] Dr. Jemima Paul CBC AUTO DIFFon 03-17-2022 BASO # 0.1 103/ul Normal 0.0-0.1 [facility] Comment on above: Performed By: #### C BC #### [facility] [address] [place] [address] Dr. Jemima Paul Basophils/100 WBC (Bld) 1.0 % Normal 0.2-2.0 [facility] Comment on above: Performed By: #### C BC #### [facility] [address] [place] [address] Dr. Jemima Paul EO # 0.2 103/ul Normal 0.0-0.7 [facility] Comment on above: Performed By: #### C BC #### [facility] [address] [place] [address] Dr. Jemima Paul Eosinophils/100 WBC (Bld) 3.0 % Normal 0.9-7.0 [facility] Comment on above: Performed By: #### C BC #### [facility] [address] [place] [address] Dr. Jemima Paul Erythrocyte distribution width (RBC) [Ratio] 12.4 % Normal 11.0-15.[address] [facility] Comment on above: Performed By: #### C BC #### [facility] [address] [place] [address] Dr. Jemima Paul Hematocrit (Bld) [Volume fraction] 43.4 % Normal 36.0-48.0 [facility] Comment on above: Performed By: #### C BC #### [facility] [address] [place] [address] Dr. Jemima Paul Hemoglobin (Bld) [Mass/Vol] 14.8 g/dL Normal 12.0-16.0 [facility] Comment on above: Performed By: #### C BC #### [facility] [address] [place] [address] Dr. Jemima Paul IG # 0.04 10e3/ul Critically high 0.00-0.03 [facility] Comment on above: Performed By: #### C BC #### [facility] [address] [place] [address] Dr. Jemima Paul IG % 0.6 % Critically high 0.0-0.5 [facility] Comment on above: Performed By: #### C BC #### [facility] [address] [place] [address] Dr. Jemima Paul LYMPH # 3.1 103/ul Normal 1.2-3.8 [facility] Comment on above: Performed By: #### C BC #### [facility] [address] [place] [address] Dr. Jmeima Paul Lymphocytes/100 WBC (Bld) 44.9 % Normal 20.5-60.0 [facility] Comment on above: Performed By: #### C BC #### [facility] [address] [place] [address] Dr. Jemima Paul MANUAL DIFF REQ NO Normal [facility] Comment on above: Performed By: #### C BC #### [facility] [address] [place] [address] Dr. Jemima Paul MCH (RBC) [Entitic mass] 36.2 pg Critically high 26.7-34.0 [facility] Comment on above: Performed By: #### C BC #### [facility] [address] [place] [address] Dr. Jemima Paul MCHC (RBC) [Mass/Vol] 34.1 g/dL Normal 29.9-35.2 [facility] Comment on above: Performed By: #### C BC #### [facility] [address] [place] [address] Dr. Jemima Paul MCV (RBC) [Entitic vol] 106.1 fL Critically high 81.0-99.0 [facility] Comment on above: Performed By: #### C BC #### [facility] [address] [address] [address] Jemima Paul MONO # 0.4 103/ul Normal 0.3-0.8 [facility] Comment on above: Performed By: #### C BC #### [facility] [address] [address] [address] Jemima Paul Monocytes/100 WBC (Bld) 6.2 % Normal 1.7-12.0 [facility] Comment on above: Performed By: #### C BC #### [facility] [address] [place] [address] Dr. Jemima Paul NEUT # 3.1 103/ul Normal 1.4-6.5 [facility] Comment on above: Performed By: #### C BC #### [facility] [address] [place] [address] Dr. Jemima Paul Neutrophils/100 WBC (Bld) 44.3 % Normal 43.0-75.0 [facility] Comment on above: Performed By: #### C BC #### [facility] [address] [place] [address] Dr. Jemima Paul Platelet mean volume (Bld) [Entitic vol] 8.3 fL Critically low 9.5-13.5 [facility] Comment on above: Performed By: #### C BC #### [facility] [address] [place] [address] Dr. Jemima Paul PLT 288 103/ul Normal 150-[address] [facility] Comment on above: Performed By: #### C BC #### [facility] [address] [address] [address] Jemima Paul RBC 4.09 106/ul Critically low 4.20-5.40 [facility] Comment on above: Result Comment: TEAR DROP CELLS 3+, MACROCYTOSIS 3+ Performed By: #### C BC #### [facility] [address] [place] [address] Dr. Jemima Paul WBC 7.0 103/ul Normal 4.0-11.0 [facility] Comment on above: Performed By: #### C BC #### [facility] [address] ABD/PELV W CONon [...] by: HELENA ANDERSEN Date: 2022-03-17 00:46 Normal [facility] PROF CHEM 8 (BAS METB)on Anion gap [Moles/Vol] 14.6 mmol/L Normal [facility] Comment on above: Performed By: #### B MP #### [facility] [address] [place] [address] Dr. Jemima Paul Calcium [Mass/Vol] 8.6 mg/dL Normal 8.5-10.1 [facility] Comment on above: Performed By: #### B MP #### [facility] [address] [place] [address] Dr. Jemima Paul Chloride [Moles/Vol] 100 mmol/L Normal 98-107 [facility] Comment on above: Performed By: #### B MP #### [facility] [address] [place], [place] [id number] Dr. Jemima Paul CO2 [Moles/Vol] 24.3 mmol/L Normal 21.0-32.0 [facility] Comment on above: Performed By: #### B MP #### [facility] [address] [place] [address] Dr. Jemima Paul Creatinine [Mass/Vol] 0.99 mg/dL Normal 0.55-1.02 [facility] Comment on above: Performed By: #### B MP #### [facility] [address] [place] [address] Dr. Jemima Paul EGFR-AF LUXEMBOURGER >60 Normal >=60 [facility] Comment on above: Performed By: #### B MP #### [facility] [address] [place] [address] Dr. Jemima Paul EGFR-NON AF LUXEMBOURGER 60 mL/min/1.73m2 Normal >=60 [facility] Comment on above: Performed By: #### B MP #### [facility] [address] [place] [address] Dr. Jemima Paul Glucose [Mass/Vol] 108 mg/dL Critically high 74-106 T [facility] Comment on above: Performed By: #### B MP #### [facility] [address] [place] [address] Dr. Jemima Paul Potassium [Moles/Vol] 3.9 mmol/L Normal 3.5-5.1 [facility] Comment on above: Performed By: #### B MP #### [facility] [address] [place] [address] Dr. Jemima Paul Sodium [Moles/Vol] 135 mmol/L Critically low 136-145 Th [facility] Comment on above: Performed By: #### B MP #### [facility] [address] [place] [address] Dr. Jemima Paul Urea nitrogen [Mass/Vol] 11.0 mg/dL Normal 7.0-18.0 [facility] Comment on above: Performed By: #### B MP #### [facility] [address] [place] [address] Dr. Jemima Paul Urea nitrogen/Creatinine [Mass ratio] 11.1 mg/mg Normal [facility] Comment on above: Performed By: #### B #### [facility] [address] [place] [address] Dr. Jemima Paul Large Joint Arthro/Inj: R gl enohumeral [facility] Vital Signs Date Time Vital Sign Value Performing Clinician Facility 11-26-2023 19:43-0500 Body temperature 98.42 [degF] [facility] 11-26-2023 19:43-0500 Diastolic blood pressure 75 mm[Hg] [facility] 11-26-2023 19:43-0500 Heart rate 111 /min [facility] 11-26-2023 19:43-0500 Respiratory rate 16 /min [facility] 11-26-2023 19:43-0500 SaO2% (BldA) [Mass fraction] 95 % [facility] 11-26-2023 19:43-0500 Systolic blood pressure 125 mm[Hg] [facility] 10-13-2023 18:29-0500 Diastolic blood pressure 89 mm[Hg] Bashirolinda Loera [facility] 10-13-2023 18:29-0500 Heart rate 71 /min Bashir Evaristo [facility] 10-13-2023 18:29-0500 Mean blood pressure 107 mm[Hg] Bashir Evaristo [facility] 10-13-2023 18:29-0500 Respiratory rate 18 /min Bashir Evaristo [facility] 10-13-2023 18:29-0500 SaO2% (BldA) [Mass fraction] 97 % Bashir Loera [facility] 10-13-2023 18:29-0500 Systolic blood pressure 143 mm[Hg] Bashir Loera [facility] 10-13-2023 15:52-0500 Body temperature 98.24 [degF] Bashir Loera [facility] 10-13-2023 15:52-0500 Diastolic blood pressure 91 mm[Hg] Bashir Loera [facility] 10-13-2023 15:52-0500 Heart rate 88 /min Bashir Loera [facility] 10-13-2023 15:52-0500 Respiratory rate 18 /min Bashir Loera [facility] 10-13-2023 15:52-0500 SaO2% (BldA) [Mass fraction] 96 % Bashir Loera [facility] 10-13-2023 15:52-0500 Systolic blood pressure 158 mm[Hg] Bashir Loera [facility] 03-30-2023 10:59-0400 Body height 149.9 cm [employer] Work Phone: [facility] 03-30-2023 10:59-0400 Body weight 58.97 kg Bikantae PA-C Work Phone: [facility] 01-31-2023 11:00-0400 Heart rate 89 /min Eren Ramires [facility] 01-31-2023 11:00-0400 Respiratory rate 16 /min Eren Ramires [facility] 01-31-2023 10:04-0400 Hourly Rounding Eren Ramires [facility] 01-31-2023 10:04-0400 Promise to Return Eren Keyla [facility] 01-31-2023 10:03-0400 Diastolic blood pressure 83 mm[Hg] Eren Keyla [facility] 01-31-2023 10:03-0400 Heart rate 91 /min Eren Keyla [facility] 01-31-2023 10:03-0400 Mean blood pressure 98 mm[Hg] Eren Keyla [facility] 01-31-2023 10:03-0400 Respiratory rate 20 /min Eren Keyla [facility] 01-31-2023 10:03-0400 SaO2% (BldA) [Mass fraction] 99 % Eren Keyla [facility] 01-31-2023 10:03-0400 Systolic blood pressure 127 mm[Hg] Eren Keyla [facility] 01-31-2023 09:40-0400 Body temperature 98.24 [degF] Eren Keyla [facility] 01-31-2023 09:40-0400 Diastolic blood pressure 86 mm[Hg] Eren Keyla [facility] 01-31-2023 09:40-0400 Heart rate 94 /min Eren Keyla [facility] 01-31-2023 09:40-0400 Hourly Rounding Eren Keyla [facility] 01-31-2023 09:40-0400 Promise to Return Eren Keyla [facility] 01-31-2023 09:40-0400 Respiratory rate 18 /min Eren Keyla [facility] 01-31-2023 09:40-0400 SaO2% (BldA) [Mass fraction] 98 % Eren Ramires [facility] 01-31-2023 09:40-0400 Systolic blood pressure 133 mm[Hg] Eren Ramires [facility] 11-12-2022 17:25-0500 Hourly Rounding Nate Gavin [facility] 11-12-2022 17:25-0500 Promise to Return Nate Gavin [facility] 11-12-2022 16:58-0500 Heart rate 70 /min Nate Brown [facility] 11-12-2022 16:58-0500 SaO2% (BldA) [Mass fraction] 97 % Nate Brown [facility] 11-12-2022 16:57-0500 Body temperature 97.52 [degF] Nate Brown [facility] 11-12-2022 16:57-0500 Diastolic blood pressure 85 mm[Hg] Nate Brown [facility] 11-12-2022 16:57-0500 Mean blood pressure 98 mm[Hg] Nate Brown [facility] 11-12-2022 16:57-0500 Systolic blood pressure 122 mm[Hg] Nate Brown [facility] 11-12-2022 16:25-0500 Hourly Rounding Nate Brown [facility] 11-12-2022 16:25-0500 Promise to Return Nate Brown [facility] 11-12-2022 16:00-0500 Respiratory rate 15 /min Nate Brown [facility] 11-12-2022 15:16-0500 Hourly Rounding Nate Gavin [facility] 11-12-2022 15:16-0500 Promise to Return Nate Gavin [facility] 11-12-2022 11:45-0500 Body temperature 97.34 [degF] Nate Gavin [facility] 11-12-2022 11:45-0500 Diastolic blood pressure 85 mm[Hg] Nate Gavin [facility] 11-12-2022 11:45-0500 Heart rate 79 /min Nate Gavin [facility] 11-12-2022 11:45-0500 Mean blood pressure 93 mm[Hg] Nate Gavin [facility] 11-12-2022 11:45-0500 Respiratory rate 14 /min Nate Gavin [facility] 11-12-2022 11:45-0500 SaO2% (BldA) [Mass fraction] 96 % Nate Gavin [facility] 11-12-2022 11:45-0500 Systolic blood pressure 110 mm[Hg] Nate Gavin [facility] 11-12-2022 11:35-0500 Diastolic blood pressure 60 mm[Hg] Nate Gavin [facility] 11-12-2022 11:35-0500 Heart rate 61 /min Nate Gavin [facility] 11-12-2022 11:35-0500 Mean blood pressure 71 mm[Hg] Nate Gavin [facility] 11-12-2022 11:35-0500 Respiratory rate 16 /min Nate Gavin [facility] 11-12-2022 11:35-0500 Systolic blood pressure 92 mm[Hg] Nate Gavin [facility] 11-12-2022 11:30-0500 Mean blood pressure 69 mm[Hg] Nate Gavin [facility] 11-12-2022 11:30-0500 Respiratory rate 18 /min Nate Gavin [facility] 11-12-2022 11:20-0500 Body temperature 97.34 [degF] Nate Gavin [facility] 11-12-2022 11:15-0500 Respiratory rate 11 /min Nate Gavin [facility] 11-12-2022 11:10-0500 Respiratory rate 13 /min Nate Gavin [facility] 11-12-2022 07:01-0500 Body temperature 96.8 [degF] Nate Gavin [facility] 11-12-2022 07:01-0500 Heart rate 73 /min Nate Gavin [facility] 11-12-2022 06:46-0500 Body temperature 96.8 [degF] Nate Gavin [facility] 11-12-2022 06:46-0500 Heart rate 69 /min Nate Gavin [facility] 07-28-2022 10:58-0400 Body height 149.9 cm Ronan Cabello MD Work Phone: [facility] 07-28-2022 10:58-0400 Body temperature 97.81 [degF] Ronan Cabello MD Work Phone: [facility] 07-28-2022 10:58-0400 Body weight 57.15 kg Ronan Cabello MD Work Phone: [facility] 07-28-2022 10:58-0400 Diastolic blood pressure 89 mm[Hg] Ronan Cabello MD Work Phone: [facility] 07-28-2022 10:58-0400 Heart rate 90 /min Ronan Cabello MD Work Phone: [facility] 07-28-2022 10:58-0400 Respiratory rate 12 /min Ronan Cabello MD Work Phone: [facility] 07-28-2022 10:58-0400 Systolic blood pressure 125 mm[Hg] Ronan Cabello MD Work Phone: [facility] 05-04-2022 14:00-0400 Body height 152.4 cm Gale Vasquez Other [email or web address] Other 05-04-2022 14:00-0400 Body mass index (BMI) [Ratio] 25.97 kg/m2 Gale Vasquez Other [email or web address] Other 05-04-2022 14:00-0400 Body weight 60.33 kg Gale Vasquez Other [email or web address] Other 05-04-2022 14:00-0400 Diastolic blood pressure 86 mm[Hg] Gale Vasquez Other [email or web address] Other 05-04-2022 14:00-0400 Respiratory rate 20 /min Gale Vasquez Other [email or web address] Other 05-04-2022 14:00-0400 Systolic blood pressure 130 mm[Hg] Gale Vasquez Other [email or web address] Other 03-31-2022 12:03-0400 Body temperature 98.06 [degF] [facility] 03-31-2022 12:03-0400 Diastolic blood pressure 89 mm[Hg] [facility] 03-31-2022 12:03-0400 Heart rate 109 /min [facility] 03-31-2022 12:03-0400 Respiratory rate 18 /min [facility] 03-31-2022 12:03-0400 SaO2% (BldA) [Mass fraction] 100 % [facility] 03-31-2022 12:03-0400 Systolic blood pressure 155 mm[Hg] [facility] 01-01-2022 19:52-0400 Diastolic blood pressure 77 mm[Hg] [facility]ofi [facility] 01-01-2022 19:52-0400 Heart rate 97 /min [facility] 01-01-2022 19:52-0400 Respiratory rate 18 /min [facility] 01-01-2022 19:52-0400 SaO2% (BldA) [Mass fraction] 97 % [facility] 01-01-2022 19:52-0400 Systolic blood pressure 113 mm[Hg] [facility] 01-01-2022 16:50-0400 Body temperature 98.42 [degF] [facility] 01-01-2022 16:50-0400 Diastolic blood pressure 88 mm[Hg] [facility] 01-01-2022 16:50-0400 Heart rate 126 /min [facility] 01-01-2022 16:50-0400 Respiratory rate 18 /min [facility] 01-01-2022 16:50-0400 SaO2% (BldA) [Mass fraction] 97 % [facility] 01-01-2022 16:50-0400 Systolic blood pressure 153 mm[Hg] [facility]i Castellano [facility] Encounters Encounter Date Encounter Type Care Provider Facility Start: 11-26-2023 End: 11-26-2023 Emergency department patient visit Antonioonel Weinberg Facility:[facility] Start: 11-26-2023 End: 11-26-2023 Emergency department patient visit Antonio Weinberg [facility] Start: 11-24-2023 End: 11-24-2023 ambulatory [facility] Start: 11-24-2023 End: 11-24-2023 Encounter for preprocedural cardiovascular examination [facility] Start: 11-24-2023 Encounter for preprocedural cardiovascular examination [facility] Start: 10-17-2023 End: 10-17-2023 ambulatory GRACYARNOLD MEDINA Not Available Start: 10-13-2023 End: 10-13-2023 Emergency department patient visit Bashir Loera Facility:[facility] Start: 10-13-2023 End: 10-13-2023 Emergency department patient visit Bashir Loera [facility] Start: 10-13-2023 End: 10-13-2023 ambulatory DAVID LEON Not Available Start: 08-30-2023 End: 08-31-2023 ambulatory DAVID LEON Facility:[facility] Start: 08-30-2023 End: 08-30-2023 Patient encounter procedure DAVID LEON [facility] Start: 08-29-2023 End: 08-29-2023 ambulatory DAVID LEON Not Available Start: 07-25-2023 ambulatory Gracyarnold HarmonCarol Facility: [facility] Start: 05-31-2023 End: 06-01-2023 ambulatory Gracy M Carol Facility:[facility] Start: 05-31-2023 End: 05-31-2023 Patient encounter procedure Gracy Medina [facility] Start: 05-11-2023 Telephone encounter Sharita major MD Work Phone: [facility] [place] Comment on above: Schedule Surgery Patient Question (Of fering patient surgical date.) Start: 04-14-2023 End: 04-14-2023 ambulatory BETH [facility] Start: 04-10-2023 End: 04-10-2023 ambulatory GRACY HARMONGLES Facility:[facility] Start: 04-10-2023 End: 04-10-2023 Patient encounter procedure Sharita Myers MD Work Phone: [facility] Comment on above: 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) (Primary Dx) Start: 04-07-2023 End: 04-07-2023 Emergency department patient visit Elzbieta Cantrell Facility:[facility] Start: 03-30-2023 End: 03-30-2023 ambulatory No Pcp [facility] Start: 03-30-2023 End: 03-30-2023 Patient encounter procedure Verónica Duarte PA-C Work Phone: Orthopaedics Comment on above: 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) (Primary Dx); Incomplete tear of right rotator cuff, unspecified whether traumatic; Biceps tendonitis on right Start: 03-27-2023 End: 03-27-2023 ambulatory SELF Facility:[facility] Start: 03-27-2023 End: 03-27-2023 Patient encounter procedure [...] (Primary Dx) Start: 02-22-2023 ambulatory BERNARDA CORTES Facility:[facility] Start: 02-06-2023 End: 02-07-2023 ambulatory Nate Gavin Facility:[facility] Start: 02-06-2023 End: 02-06-2023 Patient encounter procedure Nate Gavin [facility] Start: 01-31-2023 End: 01-31-2023 Emergency department patient visit Eren Ramires Facility:[facility] Start: 01-31-2023 End: 01-31-2023 Emergency department patient visit Eren Ramires [facility] Start: 01-11-2023 End: 01-18-2023 ambulatory UNKNOWN PROVIDER Facility:[facility] Start: 12-13-2022 End: 12-13-2022 ambulatory Sadiq Wilson Other [email or web address] Other Start: 12-13-2022 Telephone encounter Sadiq PALACIOS [facility] Start: 11-15-2022 End: 11-16-[address] TK LEVI . Facility: Start: 11-12-2022 End: 11-12-2022 Observation Nate Gavin [facility] Start: 08-02-2022 End: 08-02-[address] WILL BENITEZ . Facility: Start: 07-28-2022 End: 07-29-2022 ambulatory GRACY MEDINA Facility:[facility] Start: 07-28-2022 End: 07-28-2022 Patient encounter procedure Ronan Cabello MD Work Phone: General Surgery Comment on above: Incisional hernia, w ithout obstruction or gangrene (Primary Dx) Start: 05-17-[address] AGUS LEON . Faci lity:[facility] Start: 05-11-2022 End: 05-12-2022 ambulatory GALE VASQUEZ Facility:[facility] Start: 05-04-2022 End: 05-04-2022 ambulatory Gale Vasquez Other [email or web address] Other Start: 05-04-2022 Office outpatient vi sit 25 minutes Gale Vasquez [facility] G[facility] Start: 04-18-2022 End: 04-27-2022 ambulatory BRAYAN MEDINA Facility:[facility] Start: 03-31-2022 End: 03-31-2022 Emergency department patient visit Gloria Meaghan [facility] Start: 03-24-2022 End: 03-24-2022 Patient encounter procedure Gracy Prerna Carol [facility] Start: 03-16-2022 End: 03-17-2022 ambulatory BRAYAN MEDINA Facility:[facility] Start: 01-01-2022 End: 01-01-2022 Emergency department patient visit Kofi Castellano [facility] Start: 03-29-2018 End: 03-30-2018 Ambulatory DEFAULT PHYSICIAN Facility:[facility] Procedures Date Procedure Procedure Detail Performing Clinician Start: 03-30-2023 Arthrocentesis aspir &/inj major jt/bursa w/o us Verónica Duarte PA-C Work Phone: Start: 03-27-2023 Radex ankle complete minimum 3 views Aurelianoeben Vann DPM Work Phone: Appendectomy Kofi Castellano x2 Kofi Castellano Colonoscopy Kofi Castellano Hysterectomy Kofi Castellano spine surgery for scoliosis Kofi Gray Plan of Treatment Date Care Activity Detail Author Start: 04-18-2024 DIABETES SCREEN DIABETES SCREEN [facility] Start: 05-26-2023 Influenza vaccination C [facility] Start: 09-25-2022 DEPRESSION ASSESSMENT DEPRESSION ASS [facility] Start: 05-26-2022 Influenza vaccination INFLUENZA (#1) [facility] Start: 09-25-2021 DEPRESSION ASSESSMENT DEPRESSION ASS [facility] Start: 04-05-2021 COVID-19 VACCINE (3 - Booster for Pfizer series) COVID-19 VACCINE (3 - Booster for Pfizer series) [facility] Start: 04-05-2021 COVID-19 VACCINE (3 - Pfizer series) COVID-19 VACCINE (3 - Pfizer series) [facility] Start: 08-06-2020 PNEUMOCOCCAL (2 - PCV) PNEUMOCOCCAL (2 - PCV) [facility] Start: 2019 COLOGUARD (FIT-DNA) COLOGUARD (FIT-D NA) [facility] Start: 2019 Colonoscopy COLONOSCOPY [facility] Start: 2019 COLORECTAL CANCER SCREENING COLORECTAL CANCER SCREENING [facility] Start: [address] COLONOGRAPHY [facility] Start: 2019 FECAL OCCULT BLOOD FECAL OCCULT BLOO D [facility] Start: 2019 LIPID SCREEN LIPID SCREEN [facility] Start: 2019 SIGMOIDOSCOPY SIGMOIDOSCOPY [facility] Start: 2014 Mammography MAMMOGRAM [facility] Start: 2004 HPV TESTING HPV TESTING [facility] Start: 1995 PAP TESTING PAP TESTING [facility] Start: 1993 Urine microalbumin profile DTAP,TDAP,TD (1 - Tdap) [facility] Start: 1974 HEPATITIS B (1 of 3 - 3-dose series) HEPATITIS B (1 of 3 - 3-dose series) [facility] End: 03-27-2024 PVR LEG UNL VAS LAB PVR LEG UNL VAS LAB Vascular Lab Routine PAD (peripheral artery disease) (HCC) 1 Occurrences starting 03/27/2023 until 03/27/2024 [facility] Work Phone: Comment on above: 1 Occurrences starti ng 03/27/2023 until 03/27/2024 End: 04-06-2024 XR ANKLE GENERAL 3V AP/LAT/OBL LEFT XR ANKLE GENERAL 3V AP/LAT/OBL LEFT Radiology Routine Pain 1 Occurrences starting 03/08/2023 until 04/06/2024 [facility] Work Phone: Comment on above: 1 Occurrences starti ng 03/08/2023 until 04/06/2024 End: 05-09-2024 XR SHOULDER GENERAL 3V OR MORE AP/TRUE AP/OTHER RIGHT XR SHOULDER GENERAL 3V OR MORE AP/TRUE AP/OTHER RIGHT Radiology Routine 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) 1 Occurrences starting 04/10/2023 until 05/09/2024 [facility] Work Phone: Comment on above: 1 Occurrences starti ng 04/10/2023 until 05/09/2024 XR SHOULDER GENERAL 3V OR MORE AP/TRUE AP/OTHER RIGHT XR SHOULDER GENERAL 3V OR MORE AP/TRUE AP/OTHER RIGHT Radiology Routine 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) 04/10/2023 12:24 PM EDT [facility] Work Phone: [facility] Immunizations Immunization Date Immunization Notes Care Provider [facility] 02-08-2021 COVID-19 original vaccine, age 12+ yr, monovalent (PFIZER-BIONTECH - PURPLE TOP) Ronan Cabello MD Work Phone: [facility] 01-18-2021 COVID-19 original vaccine, age 12+ yr, monovalent (PFIZER-BIONTECH - PURPLE TOP) Ronan Cabello MD Work Phone: [facility] 08-06-2019 pneumococcal polysaccharide vaccine, 23 valent Ronan Cabello MD Work Phone: [facility] 06-10-2019 seasonal influenza, intradermal, preservative free Ronan Cabello MD Work Phone: [facility] 06-25-2015 influenza virus vacc ine, unspecified formulation Ronan Cabello MD Work Phone: [facility] 06-12-2015 influenza, seasonal, injectable Ronan Cabello MD Work Phone: [facility] Payers Date Payer Category Payer Self-pay 2021 Medicaid MEDICAID [facility] MEDICAID [id number] 2021-Present [phone] [address] [place] [address] Medicaid [id number] 2015 Medicare MEDICARE MEDICAR E A AND B [id number] 2015-Present [phone] [address] [address] [place] [address] Medicare [id number] 2003 Private Health Insurance [id number] 1974 Unknown [id number] [id number] 32 1974 Unknown [id number] 2.16.840.1.889206.3.579.2.5 93 1974 Unknown [id number] 2.16.840.1.467568.3.579.2.5 93 1974 Unknown [id number] 2.16.840.1.461951.3.579.2.5 93 1974 Unknown [id number] 2.16.840.1.922379.3.579.2.5 93 1974 Unknown [id number] 2.16.840.1.886325.3.579.2.5 93 1974 Unknown [id number] 2.16.840.1.702471.3.579.2.5 93 1974 Unknown [id number] 2.16.840.1.623659.3.579.2.5 93 1974 Unknown [id number] 2.16.840.1.013760.3.579.2.1 259 1974 Unknown [id number] 2.16.840.1.990247.3.579.2.1 259 1974 Unknown [id number] 2.16.840.1.250528.3.579.2.1 259 1974 Unknown [id number] 2.16.840.1.121589.3.579.2.7 27 1974 Unknown [id number] 2.16.840.1.346801.3.579.2.7 27 1974 Unknown [id number] 2.16.840.1.439016.3.579.2.7 27 1974 Unknown [id number] 2.16.840.1.169502.3.579.2.7 27 1974 Unknown [id number] 2.16.840.1.833763.3.579.2.7 27 1974 Unknown [id number] 2.16.840.1.668266.3.579.2.7 27 1959 Medicaid [id number] 2.16.840.1.580319.19 1959 Medicaid [id number] 1959 Medicare [id number] 2.16.840.1.425518.19 Unknown Unknown [id number] 2.16.840.1.269947.3.579.2.5 31 Unknown [id number] 2.16.840.1.902291.3.579.2.5 31 Social History Date Type Detail Facility Start: 01-01-2022 Tobacco smoking status Heavy t obacco smoker (finding) [facility] Start: 03-27-2023 End: 03-30-2023 Sex Assigned At Female [facility] Start: 05-08-2018 End: 03-30-2023 Tobacco smoking status NHIS Occasional tobacco smoker [facility] Start: 05-08-2018 End: 03-30-2023 Tobacco use and exposure Smokeless tobacco non-user [facility] Start: 1975 Sex Assigned At Not on file C [facility] Start: 07-18-2022 End: 07-28-2022 Exposure to SARS-CoV-2 (event) Not sure [facility] Start: 03-27-2023 End: 03-30-2023 History of Social function [facility] National Score (1-100), lower number is lower risk 87 [facility] Medical Equipment Procedure Code Equipment Code Equipment Origin al Text Equipment Identifier Dates Mesh Prolene Polypropylene 6x4in Surgical Patch Soft Flat Sterile Hernia - [id number] Start: 10-21-2015 ANKLE FRACTURE O RIF [...] 11-12-2022 ANKLE FRACTURE O RIF Brown DO, Ante A 11/12/22 Unknown Ankle L FDA Start: [...] L FDA Start: 11-12-2022 ANKLE FRACTURE O Nate Lewis DO A 11/12/22 Unknown Ankle L FDA Start: 11-12-2022 ANKLE FRACTURE O Nate Lewis DO 11/12/22 Unknown Ankle L FDA Start: 11-12-2022 Functional Status Date Assessment Result Facility 11-26-2023 Functional Status N/A [facility] 10-13-2023 Functional Status N/A [facility] 01-31-2023 Functional Status N/A [facility] 11-12-2022 Functional Status N/A [facility] 11-12-2022 Functional Status [facility] 03-31-2022 Functional Status N/A [facility] Clinical Notes 01-01-2022 to 11-26-2023 Note Date & Type Note Facility 11-26-2023 Hospital Discharg e instructions Patient Education 11/26/2023 20:23:06 Contusion, Nilp-vl-Cdze Contusion A contusion is a deep bruise. This is a result of an injury that causes bleeding under the skin. Symptoms of bruising include pain, swelling, and discolored skin. The skin may turn blue, purple, or yellow. Follow these instructions at home: Managing pain, stiffness, and swelling You may use RICE. This stands for: Resting. Icing. Compression, or putting pressure. Elevating, or raising the injured area. To follow this method, do these actions: Rest the injured area. If told, put ice on the injured area. ?Put ice in a plastic bag. ?Place a towel between your skin and the bag. ?Leave the ice on for 20 minutes, 2 3 times per day. If told, put light pressure (compression) on the injured area using an elastic bandage. Make sure the bandage is not too tight. If the area tingles or becomes numb, remove it and put it back on as told by your doctor. If possible, raise (elevate) the injured area above the level of your heart while you are sitting or lying down. General instructions Take kgdk-pjk-tygjqpk and prescription medicines only as told by your doctor. Keep all follow-up visits as told by your doctor. This is important. Contact a doctor if: Your symptoms do not get better after several days of treatment. Your symptoms get worse. You have trouble moving the injured area. Get help right away if: You have very bad pain. You have a loss of feeling (numbness) in a hand or foot. Your hand or foot turns pale or cold. Summary A contusion is a deep bruise. This is a result of an injury that causes bleeding under the skin. Symptoms of bruising include pain, swelling, and discolored skin. The skin may turn blue, purple, or yellow. This condition is treated with rest, ice, compression, and elevation. This is also called RICE. You may be given vpqv-htr-ifytepc medicines for pain. Contact a doctor if you do not feel better, or you feel worse. Get help right away if you have very bad pain, have lost feeling in a hand or foot, or the area turns pale or cold. This information is not intended to replace advice given to you by your health care provider. Make sure you discuss any questions you have with your health care provider. Document Revised: 07/07/2022 Document Reviewed: 07/07/2022 [employer] Patient Education 2022 [employer]. Follow Up Care 11/26/2023 19:41:00 With:Carol DESHPANDE, Gracy Graff Address: [address] [place] [address]- When:11/29/2023 [facility] 11-26-2023 Evaluation + Plan note Extrac angela from: Title:ED Note Author:Rachelle JAUREGUI, Jessica Carrillo. Date :11/26/23 1. Contusion of toe, left (S 90.122A: Contusion of left lesser toe(s) without damage to nail, initial encounter) Orders: XR Foot 3+ Views Left [facility]03-01-2024 NoteHypertension is uncontrolled Continue toprol 100 mg daily, and will add lisinopril 5 mg daily and will repeat BMP in about 1 week after starting. Please notify office for any dry persistent [facility]24 NoteContinue toprol 100 mg daily SVT stable currentlyUnWayne [facility]Care [facility]03-01-2024 NotePatient here for surgery clearance prior to ankle surgery with Dr. Walsh. She had Covid-19 about 2 months ago and hasn't been the same since. Says her BP has been elevated recently. Says chest pain has slowed down a bit and is less frequent. Review of Systems Cardiovascular: Positive for chest pain (less frequent) and palpitations ( sometimes ). Musculoskeletal: Positive for back pain and myalgias. Neurological: Positive for headaches, light-headedness and vertigo. All other systems reviewed and are negative.[facility] 11-24-2023 NoteUTP CARDIOLOGY PROGRESS NOTE HPI: Nathaniel Marcial is a 48 y.o. female here for surgical risk stratification Patient here for surgery clearance prior to ankle surgery with Dr. Walsh. She had Covid-19 about 2 months ago and hasn't been the same since. Says her BP has been elevated recently. Says chest pain has slowed down a bit and is less frequent. Review of Systems Cardiovascular: Positive for chest pain (less frequent) and palpitations ( sometimes ). Musculoskeletal: Positive for back pain and myalgias. Neurological: Positive for headaches, light-headedness and vertigo. All other systems reviewed and are negative. Previous HPI per Dr Guevara HPI: Nathaniel Marcial is a 47 y.o. [...] paroxysmal nocturnal dyspnea. No near-syncope or syncope Visit Vitals BP (!) 150/94 (BP Location: Left arm, Patient Position: Sitting) Pulse 85 Ht 1.499 m (4' 11 ) Wt 59 kg (130 lb) SpO2 97% BMI 26.26 kg/m??? Smoking Status Every Day [...] and at bedtime. metoprolol succinate XL (Toprol-XL) 100 mg 24 hr tablet Take 1 tablet (100 mg) by mouth in the morning. Do not crush or chew. 30 tablet 11 pantoprazole (ProtoNix) 40 mg EC tablet Take 40 mg by mouth before breakfast. Do not crush, chew, or split. QUEtiapine (SEROquel) 50 mg tablet Take 50 mg by mouth at bedtime. Symbicort 160-4.5 mcg/actuation inhaler INHALE 2 PUFFS BY MOUTH TWICE A DAY *RINSE MOUTH AFTER USE* [DISCONTINUED] metoprolol succinate XL (Toprol-XL) 50 mg 24 hr tablet Take 50 mg by mouth in the morning. Do not crush or chew. No current facility-administered medications on file prior to visit. Physical Exam: Constitutional: Appearance: Normal appearance. Without apparent distress HENT: Head: Normocephalic and atraumatic. Nose: Nose normal. Mouth/Throat: poor dentition Mouth: Mucous membranes are moist. Eyes: Extraocular [...] Thought content normal. Judgment: Judgment normal. Labs: EKG today- SR with sinus arrhythmia- otherwise ECG 03/05/23 CBC normal NA, K+ normal; BUN 7, CR 0.73, GFR > 60- normal renal function Liver function normal Last lab values have been reviewed CV Testing: EKG today- Sinus rhythm and sinus arrythymia- no acute concerns or changes Holter monitor 08/03/22 - sinus rhythm to sinus tachycardia, PVCs noted, Max heart rate 126, Min 85 bpm PVCs burden 0.07%, 1 occurrence of SVT 05/26/23 Lexiscan- 05/05/23 TTE No echocardiogram results found for the past 12 months Assessment/Plan: Pre-operative cardiovascular examination RCRI=0 points Class I Risk 3.9 % 30-day risk of , SC, or cardiac arrest From a cardiac perspective pt may proceed with ankle surgery, she is a low risk for a low risk procedure. Please monitor hemodynamics carefully and prevent any major fluid shifts. SVT (supraventricular tachycardia) (CMS/HCC) Continue toprol 100 mg daily SVT stable currently (more content not included)...[facility]03-01-2024 NoteRCRI=0???points Class I Risk 3.9???% 30-day risk of , SC, or cardiac arrest From a cardiac perspective pt may proceed with ankle surgery, she is a low risk for a low risk procedure. Please monitor hemodynamics carefully and prevent any major fluid shifts.[facility]01-19-2024 Hospital Discharge instructions Patient Education 10/13/2023 18:55:44 Abdominal Pain, Adult, Wjjl-gj-Xvfa Abdominal Pain, Adult Many things can cause belly (abdominal) pain. Most times, belly pain is not dangerous. Many cases of belly pain can be watched and treated at home. Sometimes, though, belly pain is serious. Your doctor will try to find the cause of your belly pain. Follow these instructions at home: Medicines Take ncnq-rxa-jwazuqb and prescription medicines only as told by your doctor. Do not take medicines that help you poop (laxatives) unless told by your doctor. General instructions Watch your belly pain for any changes. Drink enough fluid to keep your pee (urine) pale yellow. Keep all follow-up visits as told by your doctor. This is important. Contact a doctor if: Your belly pain changes or gets worse. You are not hungry, or you lose weight without trying. You are having trouble pooping (constipated) or have watery poop (diarrhea) for more than 2 3 days. You have pain when you pee or poop. Your belly pain wakes you up at night. Your pain gets worse with meals, after eating, or with certain foods. You are vomiting and cannot keep anything down. You have a fever. You have blood in your pee. Get help right away if: Your pain does not go away as soon as your doctor says it should. You cannot stop vomiting. Your pain is only in areas of your belly, such as the right side or the left lower part of the belly. You have bloody or black poop, or poop that looks like tar. You have very bad pain, cramping, or bloating in your belly. You have signs of not having enough fluid or water in your body (dehydration), such as: ?Dark pee, very little pee, or no pee. ?Cracked lips. ?Dry mouth. ?Sunken eyes. ?Sleepiness. ?Weakness. You have trouble breathing or chest pain. Summary Many cases of belly pain can be watched and treated at home. Watch your belly pain for any changes. Take gmxo-cbf-brifeam and prescription medicines only as told by your doctor. Contact a doctor if your belly pain changes or gets worse. Get help right away if you have very bad pain, cramping, or bloating in your belly. This information is not intended to replace advice given to you by your health care provider. Make sure you discuss any questions you have with your health care provider. Document Revised: 01/20/2020 Document Reviewed: 01/20/2020 [employer] Patient Education 2022 [employer]. 10/13/2023 18:55:44 Constipation, Adult Constipation, Adult Constipation is when a person has fewer than three bowel movements in a week, has difficulty havinga bowel movement, or has stools (feces) that are dry, hard, or larger than normal. Constipation maybe caused by an underlying condition. It may become worse with age if a person takes certain medicines and does not take in enough fluids. Follow these instructions at home: Eating and drinking Eat foods that have a lot of fiber, such as beans, whole grains, and fresh fruits and vegetables. Limit foods that are low in fiber and high in fat and processed sugars, such as fried or sweet foods. These include finnish fries, hamburgers, cookies, candies, and soda. Drink enough fluid to keep your urine pale yellow. General instructions Exercise regularly or as told by your health care provider. Try to do 150 minutes of moderate exercise each week. Use the bathroom when you have the urge to go. Do not hold it in. Take nydj-ksl-gtuqopb and prescription medicines only as told by your health care provider. This includes any fiber supplements. During bowel movements: ?Practice deep breathing while relaxing the lower abdomen. ?Practice pelvic floor relaxation. Watch your condition for any changes. Let your health care provider know about them. Keep all follow-up visits as told by your health care provider. This is important. Contact a health care provider if: You have pain that gets worse. You have a fever. You do not have a bowel movement after 4 days. You vomit. You are not hungry or you lose weight. You are bleeding from the opening between the buttocks (anus). You have thin, pencil-like stools. Get help right away if: You have a fever and your symptoms suddenly get worse. You leak stool or have blood in your stool. Your abdomen is bloated. You have severe pain in your abdomen. You feel dizzy or you faint. Summary Constipation is when a person has fewer than three bowel movements in a week, has difficulty havinga bowel movement, or has stools (feces) that are dry, hard, or larger than normal. Eat foods that have a lot of fiber, such as beans, whole grains, and fresh fruits and vegetables. Drink enough fluid to keep your urine pale yellow. Take pmtd-meg-lbycwqw and prescription medicines only as told by your health care provider. This includes any fiber supplements. This information is not intended to replace advice given to you by your health care provider. Make sure you discuss any questions you have with your health care provider. Document Revised: 07/29/2020 Document Reviewed: 07/29/2020 [employer] Patient Education 2022 [employer]. Follow Up Care 10/13/2023 15:41:06 With:Gracy Medina Address: [address] [place] [address]- Business (1) When:10/16/2023 18:37:35 Comments:Follow-up with your primary care provider in 3 to 5 days. If symptoms worsen, do not improve, or new symptoms arise please report back to emergency department for further evaluation. [facility]12-06-2023 Evaluation + Plan note Diagnostic Tests Pending * Clostridium difficile by PCR 08/30/23 [facility]08-17-2023 Miscellaneous Notes* Telephone Encounter - Marcie Chou RN - 05/11/2023 12:46 PM EDT I spoke to patient to offer 05/18/23 right shoulder surgery date. Patient was tear full stating she cannot have surgery due to pain and swelling in her feet. Patient states she cannot bear weight. Shesaid she had called Dr. Vann's office and did not get a return phone call. I did speak to theiroffice and their nurse will be calling her back today. [facility] Miscellaneous Notes* Telephone Encounter - Vinita Crabtree - 05/11/2023 10:34 AM EDT Left VM and sent Mobile Cardt message to patient to see if she wants to schedule shoulder surgery with Dr. Myers on 05/18. Waiting for call back documented in this encounterCh[facility]ic[facility]07-[facility]-2023 NoteUTP CARDIOLOGY PROGRESS NOTE HPI: Nathaniel Marcial is a 47 [...] understanding -Follow-up in cardiology clinic Beth Guevara [facility]DE[facility]23 NotePatient here for 6 mo follow up SVT, palpitations, and DIAZ. She did not see another senior project accountant or have PFT's that Gracia ordered in [...] vertigo. All other systems reviewed and are negative.[facility] 04-10-2023 NoteHNO ID: [id number] Author: Sharita Myers MD Service: ? Author [...] As you know she is a 47-year-old hzyh-zcxw-qjauohvh female with complaints in her shoulder that [...] strength with resisted ex (more content not included)...[facility]07-17-2023 NoteHNO ID: [id number] Author: RT Aleida(R) Service: Radiology Author Type: [...] BY: RT Slim(R) April 10, 2023 12:25 PMFox[facility]07-[facility]-2023 History of Present illness Narrative* Sharita Myers MD - 04/10/2023 1:42 PM EDT SHOULDER INITIAL CONSULT SERVICE DATE: 04/10/2023 PCP: [...] As you know she is a 47-year-old wzhu-grvr-buaguykw female with complaints in her shoulder that started earlier this year in November or December. She states that she underwent an open reductionand internal fixation of a left ankle fracture [...] on her left leg in a cam boot.She is still using a scooter at times [...] INHALE 2 PUFFS BY MOUTH TWICE A DAY*RINSE MOUTH AFTER USE* metoprolol succinate ER (TOPROL [...] fragmentation of the cartilage. There is no full-thicknesstearing in the rotator cuff. 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 We [...] activity modification as needed, oral anti-inflammatories as needed,repeat cortisone injections as needed, and physical therapy. [...] she may still develop further collapse, for p reoperative planning. Nathaniel is agreeable to this plan of care. If any questions or concerns arise, she should not hesitate to call. SIGNATURE: Sharita Myers MD PATIENT NAME: Nathaniel Marcial DATE: April 10, 2023 TIME: 1:48 PM PAGER: documented in this encounterChillic[facility]07-06-2023 NoteHNO ID: [id number] Author: Corry Conroy Service: ? Author Type: [...] Signature: Corry Conroy March 30, 2023 2:00 [facility]07-06-2023 NotePatient Outreach (NETNAV) NATHANIEL MARCIAL ([id number]) 1975 F Date Time Provider Department 03/30/23 NO PCP NETNAV During your visit today, we recorded the [...] gangr*07/08/2021 Encounter Status:Closed by CORRY LIN on 03/30/23[facility] History of Present illness Narrative* Corry Conroy - 03/30/2023 1:59 PM EDT POPULATION HEALTH NAVIGATION OUTREACH Action/FYI scheduled Patient [...] 30, 2023 2:00 PM documented in this encounterChillicothe [facility]07-06-2023 NoteHNO ID: [id number] Author: Verónica Duarte PA-C Service: ? Author Type: Physician Retort Cooler Type: Progress Notes Filed: 03/30/2023 12:43 PM [...] seen Dr. Nate Gavin with [facility] in [place] and ordered a MRI of her shoulder [...] Pain Level: 8 Pain Location: Shoulder-Right Description: Aching;Burning;Cramping;Dull;Itching;Radiating;Sharp;Shooting;Sore;Spasm;St abbing;Stiffness;Throbbing;Tightness Duration Amount of Time: -- 1.5 - [...] belly press test. Positive speeds test. Positive Guthrie's test. Positive impingement signs. Positive Neer sign. Neurovascular intact distally with 2+ radial pulses bilaterally. Last XR Shoulder - Impression Only No resulted procedures found. X-rays right shoulder 01/19/23: AVN right hum (more content not included)... [place] [address]-06-2023 Instructions* Patient Instructions* Verónica Duarte PA-C - 03/30/2023 11:38 AM EDT SHANIA [address] Dr. [phone] ([place]) PT: [phone] documented in this encounterChillicothe [facility]07-06-2023 History of Present illness Narrative* Verónica Duarte PA-C - 03/30/2023 11:13 AM EDTAssociated Order(s): Large Joint Arthro/Inj: R glenohumeral Post-Procedure Diagnose(s): 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); Biceps tendonitis on right Images from the original note were not included. SERVICE DATE: March 30, 2023 PCP: Gracy Medina MD, MD Consult requested by Dr. Gracy Medina for an opinion regarding chief complaint as stated below. Myfinal impression and recommendations will be communicated back to the requesting physician by way of the shared medical record or letter via US mail. Subjective Patient ID: Nathaniel is a 47 year old LHD female. She suffered a fall on 11/12/22 and injured left ankle where suffered an ankle fracture that required ORIF of her left ankle that day. She is currentlyin a walking boot. She has suffered 4 falls since the surgery. States that when she fell on 11/12/22in her bedroom she states that she called [...] seen Dr. Nate Gavin with [facility] in [place] and ordereda MRI of her shoulder from 02/14/23 which showed findings of the medial humeral head as detailed likely representing AVN or rapid destructive arthrosis secondary to a subchondral insufficiency fracture. Low grade instrasubstance tear of the distal superior fibers of subscapularis tendon. Mild bicepstendinosis. She is taking some Vicodin as needed for pain. Chief Complaint: Patient presents with: Right Shoulder - New, Pain, Swelling PAIN EVALUATION 03/30/2023 1054 Pain Level: 8 Pain Location: Shoulder-Right Description: Aching;Burning;Cramping;Dull;Itching;Radiating;Sharp;Shooting;Sore;Spasm;Stabbin g;Stiffness;Throbbing;Tightness Duration Amount of Time: -- 1.5 - [...] belly press test. Positive speeds test. Positive Guthrie's test. Positive impingement signs. Positive Neer sign. [...] likely call to make an appointment with to further discuss her treatment options including potential surgery. I did answer all ofher questions. I will see her back as needed. Large Joint Arthro/Inj: R glenohumeral Informed Consent Consent Obtained: Verbal Grandin Protocol A moment to CARE was completed. [...] information obtained and documented by the physician licensed physical therapy assistant. I examined the patient and evaluated all available films and pertinent documents. We discussed the case and I agree withthe plans as outlined in this note. SIGNATURE: Verónica Duarte PA-C PATIENT NAME: Nathaniel Marcial DATE: March 30, 2023 TIME: 11:13 AM documented in this encounterChillicothe [facility] Center07-03-2023 NoteHNO ID: [id number] Author: Aureliano Vann DPM Service: ? Author [...] with the patient. - (more content not included)...[facility]07-03-2023 Instructions* Patient Instructions* Aureliano Vann DPM - 03/27/2023 1:47 PM EDT Please schedule PVR (blood flow) [phone] documented in this encounterChillicothe Va [facility] Center07-03-2023 NoteHNO ID: [id number] Author: Jevon Lemons Service: ? Author Type: Regional Sales Representative Type: Progress Notes Filed: 03/27/2023 12:28 PM [...] BY: Jevon Lemons March 27, 2023 12:28 [facility]07-03-2023 History of Present illness Narrative* Aureliano Vann DPM - 03/27/2023 12:56 PM EDT SERVICE DATE: March 27, 2023 PCP: Gracy [...] fracture, status post ORIF of the medial malleolusand distal fibula components. Soft tissue swelling about [...] Nathaniel Marcial : 1975 To [employer] of [employer] and Public [employer] Registration Division The above named person requires a disability parking placard for the following reason(s): Is severely limited in ability to walk due to orthopaedic condition Please issue a temporary placard for 1 year. Aureliano Vann DPM OSTEOGENESIS STIM,LO INTEN ULTRASD [...] contact them, they can be reached at [phone]. For [place] appointments: [phone]. Order Specific Question: Does consulting provider have [...] 2023 TIME: 12:58 PM documented in this encounterChillicothe [facility] Center07-03-2023 History of Present illness Narrative* Jevon Lemons - 03/27/2023 11:20 AM EDT Radiology Service Progress Note PATIENT NAME: Nathaniel Marcial DATE OF SERVICE: March 27, 2023 TIME: 12:28 PM PATIENT IDENTITY VERIFICATION COMPLETED USING TWO (2) IDENTIFIERS: Name and Date of confirmedby patient verbally. FALL SCREENING: Has the patient had 2 falls in the last year or 1 fall with injury or currently using an Ambulatory Assistive Device (Walker, Cane, Wheelchair, Crutches, etc.)? Yes, Patient High Riskfor Falls What interventions were put in place to prevent falls during this visit? Yellow Falls Risk Wristband Applied PATIENT GENDER DATA: Female. status: : No status: NO. PATIENT RELEVANT IMPLANT DATA REVIEWED: Not Applicable RADIOLOGY DEPARTMENT: General X-ray: Exam(s) Completed: Lower Extremity X- Ray(s): Ankle, Left and Wt. Bearing PERIPHERAL IV DATA: Not applicable SIGNED BY: Jevon Lemons March 27, 2023 12:28 PM documented in this encounterChillicothe [facility]05-09-2023 Hospital Discharge instructions Patient Education 01/31/2023 11:16:35 [...] sprain depends on how much of the ligamentwas damaged or torn. What are the causes? [...] you. Do exercises as told by your healthcare provider. Gradually increase how much and how far you walk until your health care provider says it is safe toreturn to full activity. Driving Ask your health care provider if the medicine prescribed to you requires you to avoid driving or using machinery. Ask your health care provider when it is safe to drive if you have a bandage, splint, boot, or salas your foot. General instructions Take qjtf-nvo-srqtigh and prescription medicines only as told by [...] provider. Document Revised: 01/01/2021 Document Reviewed: 01/01/2021 [employer] Patient Education 2022 [employer]. Follow Up Care 01/31/2023 09:38:16 With:Nate Gavin Address: [address] [place] [address] [place] [address] Business (1) When:02/03/2023 11:08:08 With:Gracy Medina Address: [place] [address]- Business (1) When:02/03/2023 11:08:03 [facility]03-21-2023 Evaluation note* Encounter Date Diagnosis Assessment Notes Treatment Notes Treatment Clinical Notes Nov, Abdominal pain (ICD-10 - R10.9) [email or web address] Other 02-18-2023 Evaluation + Plan noteExtracted from: [...] NPO Diet XR Ankle 3+ Views Left [facility]02-18-2023 Hospital Discharge instructions Patient Education 11/12/2022 09:42:18 [place] - Ankle Fracture Post Op (Custom) (Custom) [place], [place] [facility] DISCHARGE INSTRUCTIONS: ANKLE FRACTURE [...] office evaluation. Nate Gavin, DO [facility] [address] [place] [id number] Reviewed: 12-31 Follow Up Care 11/12/2022 06:46:16 With:Nate Romaine Address: [place] [address] Business (1) When:2 weeks [facility]11-03-2022 NoteHNO ID: [id number] Author: Ronan Cabello MD Service: ? Author [...] our notes. Patient consented for study? [facility]22 NoteHNO ID: [id number] Author: Donna Donis Ms Service: ? Author Type: ? Type: Progress Notes Filed: 07/28/2022 1:17 PM Note Text: GENERAL SURGERY CLINIC NOTE Nathaniel Marcial [id number] HPI: Nathaniel Marcial is a 46 year [...] not recall but is following with a tobacco flavorer in 1 week. O: BP 125/89 Pulse [...] her decision on how to proceed. [facility]oir [facility] History of Present illness Narrative* Ronan [...] EDT GENERAL SURGERY CLINIC NOTE Nathaniel Marcial [id number] HPI: Nathaniel Marcial is a 46 year [...] not recall but is following with a tobacco flavorer in 1 week. O: BP 125/89 Pulse [...] Ms Jul 28, 2022 documented in this encounterChillicothe [facility] Center11-03-2022 Nurse Note* Dalton Lee - 07/28/2022 10:49 [...] Temperature: No Drains: No documented in this encounterChillicothe [facility] Center08-10-2022 Evaluation note* Encounter Date Diagnosis Assessment Notes Treatment Notes Treatment Clinical Notes Apr, Irritable bowel syndrome with diarrhea (ICD-10 - K58.0) Apr, Abdominal pain (ICD-10 - R10.9) Apr, Diarrhea (ICD-10 - R19.7) Apr, Bloating (ICD-10 - R14.0) [email or web address] Other 07-07-2022 Hospital Discharge instructions Patient Education [...] exercise. Managing pain, stiffness, and swelling Take izpw-crb-jliodcu and prescription medicines only as told by [...] 09/11/2006 Document Revised: 08/24/2018 Document Reviewed: 10/11/2017 [employer] Patient Education 2020 [employer]. Follow Up Care 03/31/2022 12:02:20 With:Gracy Medina MD Address: [address] [place] [address]- When:04/03/2022 [facility]07-07-2022 Evaluation + Plan noteExtracted from: Title:ED Note Author:Jessica Bush PA-C Date :03/31/22 1. Right leg pain (M79.604: Pain in right leg) Orders: US LE Venous Duplex Right XR Femur Min 2 Views Right Future Appointments Appointment Date:04/20/2022 12:30:00 PM Scheduled Provider: Location:.MAMMOGRAM Appointment Type:MA Screen (FT) Appointment Date:04/20/2022 01:00:00 PM Scheduled Provider: Location:.CARDIO Appointment Type:CV Echo (FT) Future Scheduled Tests Radiology* Echo Transthoracic Complete 04/20/22 * MA Mamm Screen w/CAD if perf and 3D Robert 04/20/22 [facility]04-09-2022 Hospital Discharge instructions Patient Education 01/01/2022 20:12:12 [...] is stable enough for you to begin bchpr-if-zvkmgv exercises. You may also be prescribed pain [...] provider says that it is safe. Do nbtza-ze-ldbtkj exercises only as told by your health [...] quitting, ask your health care provider. Take rhqi-bko-lljxquw and prescription medicines only as told by your health care provider. Ask your health care provider if the medicine prescribed to you can cause constipation. You may need to take steps to prevent or treat constipation, such as: ?Drink enough fluid to keep your urine pale yellow. ?Take lnvj-vpq-fpzxasc or prescription medicines. ?Eat foods that are [...] 12/18/2001 Document Revised: 05/13/2019 Document Reviewed: 05/13/2019 [employer] Patient Education 2020 [employer]. Follow Up Care 01/01/2022 16:44:18 With:Gale Truong Address: [address] [facility] [address] [place] [address]- Business (1) When:01/04/2022 19:33:35 Comments:Wear the sling when you are up and around you can take it off at night when you are sleeping. Please follow-up with orthopedic surgery for further evaluation management. Please return to the ED for any new or worsening symptoms. With:Gracy Medina Address: [address] [place] [address]- Business (1) When:Within 3 Day(s) [facility]04-09-2022 Evaluation + Plan noteExtracted from: Title:ED Note [...] 19:11:00 EDT, 01/01/22 19:11:00 EDT Sling Apply [facility] Future Appointments Appointment Date:02/06/2023 09:00:00 AM Scheduled Provider: Location:FT.MRI Appointment Type:MRI Humerus/Shoulder (FT) Future Scheduled Tests Radiology* MRI Shoulder w/o Contrast Right [facility] [place]* Diagnosis Incisional hernia, without obstruction or gangrene- Primary Incisional hernia without mention of obstruction or gangrene documented in this encounter [facility] [place] [facility]* Diagnosis Pain- Primary Generalized pain documented in this encounter [facility] [place] [facility]* Diagnosis 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, subsequent encounter- Primary Osteoporosis, unspecified osteoporosis type, unspecified pathological fracture presence PAD (peripheral artery disease) ([facility]) Peripheral vascular disease, unspecified Allodynia Disturbance of skin sensation Nicotine use disorder, F17.2 Tobacco use disorder documented in this encounter [facility] [place] [facility]* Diagnosis Pain Generalized pain documented in this encounter [facility] [place] [facility]* Diagnosis 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)- Primary Incomplete tear of right rotator cuff, unspecified whether traumatic Biceps tendonitis on right documented in this encounter [facility] [place] [facility]* Diagnosis 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)- Primary documented in this encounter [facility] general Narrative - Reported* Type Description Date Medical History bipolar Medical History asthma Medical History GERD Medical History IBS Surgical History C section-2X Surgical History x 2 Surgical History laparoscopy Surgical History appendectomy Surgical History hernia-10X Surgical History multiple hernia repairs Surgical History hysterectomy Surgical History back Surgical History back surgery Hospitalization History see above [email or web address] Other Hospital course Narrative No data available for this section [facility] No data available for this section [facility] No data available for this section [facility] Diagnostic Procedure Only (Routine) - Authorized Specialty Diagnoses / Procedures Referred By Елена t Referred To Contact XR IMAGING Diagnoses Pain Procedures XR ANKLE GENERAL 3V AP/LAT/OBL LEFT RADEX ANKLE COMPLETE MINIMUM 3 VIEWS Aureliano Vann DPM [address] [place] [address] Xr Imaging Referral ID Status Reason Start Date Expiration Date Visits Requested Visits Authorized [id number] Authorized Auto-Generat ed Referral 03/08/2023 04/06/2024 1 1 [facility] for referral (narrative)* Outpatient Procedure (Routine) - Pending Review Specialty Diagnoses / Procedures Referred By Елена westfall Referred To Contact [facility] Diagnoses PAD (peripheral artery disease) (HCC) Procedures PVR LEG UNL VAS LAB NON-INVASIVE PHYSIOLOGIC STUDY EXTREMITY 3 LEVLS Aureliano Vann DPM [address] [place] [id number] [facility] [place] [address] [place] [address] Referral ID Status Reason Start Date Expiration Date Visits Requested Visits Authorized [id number] Pending Review Auto-Generat ed Referral 03/27/2023 03/26/2024 1 1 * Consult, Test, Treat (Routine) - Authorized Specialty Diagnoses / Procedures Referred By Елена t Referred To Contact Pain Management Diagnoses 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, subsequent encounter Allodynia Procedures CONSULT TO PAIN MGT OFFICE/OUTPATIENT NEW HIGH MDM 60-74 MINUTES Aureliano Vann DPM [address] [place] [address] Referral ID Status Reason Start Date Expiration Date Visits Requested Visits Authorized [id number] Authorized PCP Requested Referral 03/27/2023 03/26/2024 1 1 [facility] for referral (narrative)* Diagnostic Procedure Only (Routine) - Closed Specialty Diagnoses / Procedures Referred By Contac t Referred To Contact XR IMAGING Diagnoses Pain Procedures XR ANKLE GENERAL 3V AP/LAT/OBL LEFT RADEX ANKLE COMPLETE MINIMUM 3 VIEWS Aureliano Vann DPM [address] [place] [phone] Xr Imaging Referral ID Status Reason Start Date Expiration Date V isits Requested Visits Authorized [id number] Closed Auto-Generate d Referral 03/08/2023 04/06/2024 1 1 [facility] for referral (narrative)* Diagnostic Procedure Only (Routine) - Closed Specialty Diagnoses / Procedures Referred By Contac t Referred To Contact XR IMAGING Diagnoses 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) Procedures XR SHOULDER GENERAL 3V OR MORE AP/TRUE AP/OTHER RIGHT RADEX SHOULDER COMPLETE MINIMUM 2 VIEWS hSarita Myers MD [address] [place] [phone] Xr Imaging Referral ID Status Reason Start Date Expiration Date V isits Requested Visits Authorized [id number] Closed Auto-Generate d Referral 04/10/2023 05/09/2024 1 1 T [facility] for visit Narrative* Diagnostic Procedure Only (Routine) - Closed Specialty Diagnoses / Procedures Referred By Contac t Referred To Contact XR IMAGING Diagnoses Pain Procedures XR ANKLE GENERAL 3V AP/LAT/OBL LEFT RADEX ANKLE COMPLETE MINIMUM 3 VIEWS Aureliano Vann, DPM [address] [place] [address] Xr Imaging Referral ID Status Reason Start Date Expiration Date V isits Requested Visits Authorized [id number] Closed Auto-Generate d Referral 03/08/2023 04/06/2024 1 1 [facility] Summary Purpose Family History No Family History Records FoundNo Family History Records FoundNo Family History Records FoundNo Family History Records FoundNo Family History Records Found No data available for this section No data available for this section No Family History Records FoundNo Family History Records FoundNo Family History Records Found No data available for this section No Family History Records Found Advance Directives No Advanced Directives Records FoundNo Advanced Directives Records FoundNo Advanced Directives Records FoundNo Advanced Directives Records FoundNo Advanced Directives Records FoundNo Advanced Directives Records FoundNo Advanced Directives Records FoundNo Advanced Directives Records FoundNo Advanced Directives Records Found Reason for Referral Specialty Diagnoses / Procedures Referred By Елена westfall Referred To Contact [facility] Diagnoses 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) Incomplete tear of right rotator cuff, unspecified whether traumatic Biceps tendonitis on right Procedures CONSULT TO PHYSICAL THERAPY PHYSICAL THERAPY EVALUATION HIGH COMPLEX 45 MINS Verónica Duarte, SHANIA [address] [place] [address] [facility] [place] [address] [place] [id number] Referral ID Status Reason Start Date Expiration Date Visits Requested Visits Authorized [id number] Authorized PCP Requested Referral Auto-Generate d Referral [...] and content) DATE CREATED AUTHOR 03/30/2018 [facility] DATE CREATED AUTHOR AUTHOR'S ORGANIZ ATION 01/20/2023 [facility] DATE CREATED AUTHOR AUTHOR'S ORGANIZ ATION 03/03/2023 [facility] DATE CREATED AUTHOR AUTHOR'S ORGANIZ ATION 04/14/2023 [facility] DATE CREATED AUTHOR AUTHOR'S ORGANIZ ATION 05/18/2023 [facility] DATE CREATED AUTHOR AUTHOR'S ORGANIZ ATION 10/18/2023 [facility] EPIC DATE CREATED AUTHOR AUTHOR'S ORGANIZ ATION 11/03/2023 [facility] DATE CREATED AUTHOR AUTHOR'S ORGANIZ ATION 11/26/2023 [facility] DATE CREATED AUTHOR AUTHOR'S ORGANIZ ATION 11/28/2023 [facility] Care Team (unrecognized sect ion and content) Disassembler Relationship Specialty Start Date End Date Gracy Medina MD [address] [place] [address] PCP - General Family Medicine 04/11/21 Disassembler Relationship Specialty Start Date End Date Gracy Medina MD [address] [place] [address] PCP - General Family Medicine 04/11/21 Gracy Medina MD [address] [place] [address] Referring Family Medicine 03/07/23 Disassembler Relationship Specialty Start Date End Date Gracy Medina MD [address] [place] [address] PCP - General Family Medicine 04/11/21 Gracy Medina MD [address] [place] [address] Referring Family Medicine 03/07/23 Disassembler Relationship Specialty Start Date End Date Gracy Medina MD [address] [place] [address] PCP - General Family Medicine 04/11/21 Gracy Medina MD [address] [place] [address] Referring Family Medicine 03/07/23 Disassembler Relationship Specialty Start Date End Date Gracy Medina MD [address] [place] [address] PCP - General Family Medicine 04/11/21 Gracy Medina MD [address] [place] [address] Referring Family Medicine 03/07/23 Disassembler Relationship Specialty Start Date End Date Gracy Medina MD [address] [place] [address] PCP - General Family Medicine 04/11/21 Gracy Medina MD [address] [place] [address] Referring Family Medicine 03/07/23 Disassembler Relationship Specialty Start Date End Date Gracy Medina MD [address] [place] [address] PCP - General Family Medicine 04/11/21 Gracy Medina MD [address] [place] [address] Referring Family Medicine 03/07/23 REASON FOR VISIT (unrecogniz ed section and content) Reason Comments Established Patient Reason Comments New Trimalleolar fractur e 11/12 ORIF L maria eeFall in February with repeat injury to left ankle, cellulitis at that time with admission to local hospital. Pain Trimalleolar fractur e 2/18 ORIF L ankeFall in February with repeat injury to left ankle, cellulitis at that time with admission to local hospital. Fracture Trimalleolar fractur e 2/18 ORIF L ankeFall in February with repeat [...] or prosecute any alcohol or drug abuse patient.[facility] CenterIn the event this information is protected by the Federal Confidentiality of Alcohol and Drug Abuse Patient Records regulations: The Federal rules restrict any use of the information to criminally investigate or prosecute any alcohol or drug abuse patient.[facility] CenterIn the event this information is protected by the Federal Confidentiality of Alcohol and Drug Abuse Patient Records regulations: The Federal rules restrict any use of the information to criminally investigate or prosecute any alcohol or drug abuse patient.[facility] Center[facility] the event this information is protected by the Federal Confidentiality of Alcohol and Drug Abuse Patient Records regulations: The Federal rules restrict any use of the information to criminally investigate or prosecute any alcohol or drug abuse patient.[facility] Center[facility] the event this information is protected by the Federal Confidentiality of Alcohol and Drug Abuse Patient Records regulations: The Federal rules restrict any use of the information to criminally investigate or prosecute any alcohol or drug abuse patient.[facility] the event this information is protected by the Federal Confidentiality of Alcohol and Drug Abuse Patient Records regulations: The Federal rules restrict any use of the information to criminally investigate or prosecute any alcohol or drug abuse patient.[facility] Center[facility] the event this information is protected by the Federal Confidentiality of Alcohol and Drug Abuse Patient Records regulations: The Federal rules restrict any use of the information to criminally investigate or prosecute any alcohol or drug abuse patient.[facility] CenterIn the event this information is protected by the Federal Confidentiality of Alcohol and Drug Abuse Patient Records regulations: The Federal rules restrict any use of the information to criminally investigate or prosecute any alcohol or drug abuse patient.[facility] Center[facility] the event this information is protected by the Federal Confidentiality of Alcohol and Drug Abuse Patient Records regulations: The Federal rules restrict any use of the information to criminally investigate or prosecute any alcohol or drug abuse patient.[facility] FOR RECORDS PERTAINING TO PATIENTS WHO ARE [...] BE BASED ON THE PRIMARY CLINICAL RECORDS. [facility]. provides no warranty or guarantee of the accuracy or completeness of information in this document.
--- NOTE | 2023-12-02 19:02 | ECG_ITS ---
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
[2023-12-02 19:22] VITALS: PULSE 115
[2023-12-02 19:24] VITALS: PULSE 115
--- NOTE | 2023-12-02 19:33 | ED.GENADUL1 ---
HPI - General Adult General Chief complaint: Arrhythmia/Palpitations Stated complaint: RAPID HEART RATE/ SOB Time Seen by Provider: 12/02/23 19:20 Source: patient Mode of arrival: walk-in History of Present Illness HPI narrative: history of anxiety . takes Xanax. daily cigarette smoker. Followed by Cardiology for HTN. Is on Metoprolol and lisinopril added last week. Tonight very nervous. Trembling. Not sure why she feels panicky. No chest pain or dyspnea. Takes Bentyl for her abdominal issues Related Data Previous Rx's Medication Instructions Recorded meloxicam 15 mg tablet 15 mg PO DAILY PRN pain #10 tabs 03/05/23 sulfamethoxazole 800 1 tab PO DAILY 7 days #7 tabs 03/05/23 mg-trimethoprim 160 mg tablet (Bactrim DS) Allergies Allergy/AdvReac Type Severity Reaction Status Date / Time vancomycin Allergy Severe Verified 03/05/23 20:26 bacitracin Allergy Mild Verified 03/05/23 20:26 lamotrigine [From Lamictal] AdvReac Severe Verified 03/05/23 20:26 Review of Systems ROS Status of ROS 10 or more systems reviewed and unremarkable except as noted in history and below Exam Constitutional Vital Signs, click to edit/add: Last Vital Signs Temp 98.7 F 12/02/23 18:57 Pulse 80 12/02/23 20:33 Resp 20 12/02/23 20:33 BP 118/64 12/02/23 20:33 Pulse Ox 97 12/02/23 20:33 O2 Del Method Room Air 12/02/23 20:33 Common normals: no apparent distress (anxious, tearful), average body habitus, oriented x3, healthy appearing and alert HENGA Common normals: normocephalic and head/scalp atraumatic Eye Common normals: EOMs intact bilaterally and conjunctivae normal Respiratory Common normals: normal respiratory effort, no retractions, no use of accessory muscles and clear to auscultation bilaterally Cardio Common normals: S1 normal heart sound and S2 normal heart sound Rate: tachycardic GI Common normals: Normal to inspection, nondistended, normoactive bowel sounds present, soft to palpation and non-tender Extremity Common normals: normal to inspection and full ROM Neuro Common normals: oriented x3, CN's II-XII intact bilaterally, moves all extremities, no focal motor deficits and no sensory deficits noted Psych Mood and affect: anxious Course Vital Signs Vital signs: Vital Signs Temperature 98.7 F 12/02/23 18:57 Pulse Rate 105 H 12/02/23 18:57 Respiratory Rate 24 12/02/23 18:57 Blood Pressure 138/92 H 12/02/23 18:57 Pulse Oximetry 99 12/02/23 18:57 Temperature 98.7 F 12/02/23 18:57 Pulse Rate 80 12/02/23 20:33 Respiratory Rate 20 12/02/23 20:33 Blood Pressure 118/64 12/02/23 20:33 Pulse Oximetry 97 12/02/23 20:33 Oxygen Delivery Method Room Air 12/02/23 20:33 Medical Decision Making MDM Narrative Medical decision making narrative: patient presents anxious and tremulous. Past history of anxiety. Not sure what triggered her symptoms. No headache or chest pain . Tearful and tremulous. Treated successfully with Ativan. labs with mild hypokalemia. Potassium supplemented. Patient discharged home and advised to follow up with the family doctor Lab Data Labs: Lab Results 12/02/23 12/02/23 Range/Units 19:16 21:00 WBC 13.0 H (4.0-11.0) 10^3/uL RBC 4.22 (4.20-5.40) 10^6/uL Hgb 14.9 (12.0-16.0) g/dL Hct 43.9 (36.0-48.0) % MCV 104.0 H (81.0-99.0) fL MCH 35.3 H (26.7-34.0) pg MCHC 33.9 (29.9-35.2) g/dL RDW 15.3 H (11.0-15.0) % Plt Count 306 (150-450) 10^3/uL MPV 9.0 L (9.5-13.5) fL Seg Neuts % (Manual) 45.0 Lymphocytes % (Manual) 18.0 L (20.5-60.0) % Atypical Lymphs % (Man) 33.0 % Monocytes % (Manual) 3.0 (1.7-12.0) % Eosinophils % (Manual) 1.0 (0.9-7.0) % Basophils % (Manual) 0.0 L (0.2-2.0) % Neutrophils # (Manual) 5.85 (1.4-6.5) 10^3/uL Lymphocytes # (Manual) 2.34 (1.20-3.80) 10^3/uL Abs Atypical Lymphs Man 4.29 Monocytes # (Manual) 0.39 (0.30-0.80) 10^3/uL Eosinophils # (Manual) 0.13 (0.00-0.70) 10^3/uL Basophils # (Manual) 0.00 (0.00-0.10) 10^3/uL Sodium 135 L (136-145) mmol/L Potassium 3.1 L (3.5-5.1) mmol/L Chloride 100 (98-107) mmol/L Carbon Dioxide 23.2 (21.0-32.0) mmol/L Anion Gap 14.9 BUN 12.0 (7.0-18.0) mg/dL Creatinine 0.87 (0.55-1.02) mg/dL Est GFR ( Amer) >60 (>=60) Est GFR (Non-Af Amer) >60 (>=60) BUN/Creatinine Ratio 13.8 Glucose 113 H (74-106) mg/dL Calcium 9.2 (8.5-10.1) mg/dL Troponin I High Sens <4.0 L (4.0-51.3) pg/mL Urine Color Lt. yellow (YELLOW) Urine Clarity Clear (CLEAR) Urine pH 6.0 (5.0-9.0) Ur Specific [place] 1.010 (1.005-1.025) Urine Protein Negative (NEG/TRACE) mg/dL Urine Glucose (UA) Negative (NEGATIVE) mg/dL Urine Ketones Negative (NEGATIVE) mg/dL Urine Occult Blood Small A (NEGATIVE) Urine Nitrite Negative (NEGATIVE) Urine Bilirubin Negative (NEGATIVE) Urine Urobilinogen 0.2 (0.2-1.0) EU/dL Ur Leukocyte Esterase Negative (NEGATIVE) Urine RBC 0-2 (0-2) #/HPF Urine WBC None seen (NONE SEEN) #/HPF Ur Squamous Epith Cells Rare (NONE/RARE) #/LPF Urine Crystals None seen (None Seen) #/HPF Urine Bacteria None seen (NONE SEEN) #/HPF Urine Casts None seen (NONE SEEN) #/LPF Urine Mucus None seen (NONE SEEN) Urine Opiates Screen Negative (NEGATIVE) Ur Buprenorphine Scrn Negative (NEGATIVE) Ur Oxycodone Screen Negative (NEGATIVE) Urine Methadone Screen Negative (NEGATIVE) Ur Barbiturates Screen Negative (NEGATIVE) U Tricyclic Antidepress Negative (NEGATIVE) Ur Phencyclidine Scrn Negative (NEGATIVE) Ur Amphetamines Screen Negative (NEGATIVE) U Methamphetamines Scrn Negative (NEGATIVE) U Benzodiazepines Scrn Positive A (NEGATIVE) Urine Cocaine Screen Negative (NEGATIVE) U Cannabinoids Screen Positive A (NEGATIVE) Discharge Plan Discharge Stand Alone Forms: Portal Instructions Chief Complaint: Arrhythmia/Palpitations Clinical Impression: Anxiety Patient Disposition: Home, Self-Care Prescriptions / Home Meds: No Action sulfamethoxazole-trimethoprim [Bactrim DS] 800-160 mg tablet 1 tab PO DAILY 7 Days Qty: 7 0RF meloxicam 15 mg tablet 15 mg PO DAILY PRN (Reason: pain ) Qty: 10 0RF Instructions: Anxiety (ED) Additional Instructions: follow up with your doctor monday Referrals: BRAYAN GUERRA [Primary Care Provider] - 1 week
[2023-12-02] MEDS: LORAZEPAM 1 MG TABLET PO (19:43)
[2023-12-02 19:46] LABS: Hematocrit 43.9 % (36.0-48.0); Hemoglobin 14.9 g/dL (12.0-16.0); Mean Corpuscular HGB Conc 33.9 g/dL (29.9-35.2); Mean Corpuscular Hemoglobin 35.3 pg (26.7-34.0); Platelet Count 306 10^3/uL (150-450); Red Blood Count 4.22 10^6/uL (4.20-5.40); Red Cell Distribution Width 15.3 % (11.0-15.0)
[2023-12-02 20:02] LABS: Anion Gap 14.9; BUN Creatinine Ratio 13.8; Calcium 9.2 mg/dL (8.5-10.1); Carbon Dioxide 23.2 mmol/L (21.0-32.0); Chloride 100 mmol/L (98-107); Estimated GFR (African America >60 (>=60); Estimated GFR (Non-African Ame >60 (>=60); Glucose 113 mg/dL (74-106); Potassium 3.1 mmol/L (3.5-5.1); Sodium 135 mmol/L (136-145); Troponin I High Sensitivity <4.0 pg/mL (4.0-51.3)
[2023-12-02 20:06] LABS: Atypical Lymphocytes Abs Man 4.29; Eosinophils Absolute Manual 0.13 10^3/uL (0.00-0.70); Lymphocytes Absolute Manual 2.34 10^3/uL (1.20-3.80); Monocytes Absolute Manual 0.39 10^3/uL (0.30-0.80); Segmented Neut Absolute Manual 5.85 10^3/uL (1.4-6.5)
[2023-12-02] MEDS: POTASSIUM CHLORIDE 10 MEQ ER TABLET 40 MEQ PO (20:26)
[2023-12-02 20:33] VITALS: BP 118/64; PULSE 80; RESP 20; O2SAT 97
[2023-12-02 21:11] LABS: Bilirubin Urine NEGATIVE (NEGATIVE); Blood Urine SMALL (NEGATIVE); Clarity Urine CLEAR (CLEAR); Color Urine LT. YELLOW (YELLOW); Glucose Urine UA NEGATIVE (NEGATIVE); Ketones Urine NEGATIVE (NEGATIVE); Leukocyte Esterase Urine NEGATIVE (NEGATIVE); Nitrite Urine NEGATIVE (NEGATIVE); Protein Urine NEGATIVE (NEG/TRACE); Urobilinogen Urine 0.2 EU/dL (0.2-1.0)
[2023-12-02 21:12] LABS: Urine Microscopic Indicated YES
[2023-12-02 21:18] LABS: Bacteria Urine NONE SEEN #/HPF (NONE SEEN); Cast Seen? NONE SEEN #/LPF (NONE SEEN); Crystals Seen? None Seen #/HPF (None Seen); Mucus Urine NONE SEEN (NONE SEEN); RBC Urine 0-2 #/HPF (0-2); Squamous Epithelial Cell Urine RARE #/LPF (NONE/RARE); WBC Urine NONE SEEN #/HPF (NONE SEEN)
[2023-12-02 21:19] LABS: Amphetamine Screen Urine NEGATIVE (NEGATIVE); Barbiturates Screen Urine NEGATIVE (NEGATIVE); Benzodiazepines Screen Urine POSITIVE (NEGATIVE); Buprenorphine Screen Urine NEGATIVE (NEGATIVE); Cannabinoid Screen Urine POSITIVE (NEGATIVE); Cocaine Screen Urine NEGATIVE (NEGATIVE); Methadone Screen Urine NEGATIVE (NEGATIVE); Methamphetamines Screen Urine NEGATIVE (NEGATIVE); Opiate Screen Urine NEGATIVE (NEGATIVE); Oxycodone Screen Urine NEGATIVE (NEGATIVE); Phencyclidine Screen Urine NEGATIVE (NEGATIVE); Tricyclic Antidepressant Urine NEGATIVE (NEGATIVE)
== END 2023-12-02 21:41 | disposition home or self-care (01) ==
PROVIDERS: Emergency Provider Internal Medicine; PCP Student in an Organized Health Care Education/Training Program
DX: F41.9 Anxiety disorder, unspecified (principal); F17.210 Nicotine dependence, cigarettes, uncomplicated; I10 Essential (primary) hypertension; E87.6 Hypokalemia
CPT/HCPCS: 36415; 80048; 80307; 81001; 84484; 85007; 85027; 93005; 99284

== ENCOUNTER 2023-12-13 13:21 | Outpatient (OUT) | payer MEDICARE, MEDICAID, SELFPAY ==
--- NOTE | 2023-12-13 13:28 | XR_ITS ---
The [address] [address] Patient Name: NATHANIEL MARCIAL MRN: [id number] date: 1975 Sex: F Assigned Patient Location: [facility] Current Patient Location: [facility] Accession/Order Number: [id number] Exam Date: 12/13/2023 14:25 Report Date: 12/13/2023 14:50 At the request of: FRANCIS YOUNG Procedure: XR chest 2V EXAM: XR chest 2V HISTORY: Preop exam COMPARISON: 12/08/2021 TECHNIQUE: Upright PA and lateral chest x-ray FINDINGS: The heart is not enlarged and the vasculature is not distended. No acute infiltrate, effusion or pneumothorax is identified. Mild flattening of the hemidiaphragms suggest COPD. Mild scoliosis of the thoracic spine and postsurgical hardware are in place. Diffuse osteopenia is noted. XR/XR chest 2V IMPRESSION: No acute infiltrate or evidence of cardiac decompensation. Mild chronic changes are present. Scoliosis of the thoracic spine with hardware in place is again noted. The overall appearance of the chest has not changed significantly. Electronically authenticated by: FRANCIS CANELA Date: 12/13/2023 14:50
--- NOTE | 2023-12-13 14:22 | PM.PRESUREVA ---
History of Present Illness History of Present Illness Chief complaint: displaced tri mall fracture left Narrative: Patient presents for preadmission testing. The patient states she broke her left ankle over a year ago and had an ORIF, have ankle pain which is worse after long periods of standing or walking. She states she currently uses a CBD cream which helps with her discomfort. She denies numbness, tingling, weakness, or any other complaints. Review of Systems ROS Narrative REVIEW OF SYSTEMS: Negative except as stated in HPI, ten or more systems reviewed. Constitutional: No fever , chills, weakness ENT: No sore throat or epistaxis Cardiovascular: No edema or chest pain; Intermittent palpitations, dyspnea on exertion Respiratory: No cough or wheezing Gastrointestinal: No abdominal pain, constipation, diarrhea, or vomiting Genitourinary: No dysuria or hematuria Neurological: No numbness, tingling, weakness, or headache Psychiatric: No mood changes [facility] Medical History (Updated 12/13/23 @ 14:07 by Rachna Madera NP) Back pain ?M54.9 - Dorsalgia, unspecified (ICD-10) Arthritis ?M19.90 - Unspecified osteoarthritis, unspecified site (ICD-10) History of blood transfusion ?Z92.89 - Personal history of other medical treatment (ICD-10) Insomnia ?G47.00 - Insomnia, unspecified (ICD-10) PTSD (post-traumatic stress disorder) ?F43.10 - Post-traumatic stress disorder, unspecified (ICD-10) Depression ?F32.A - Depression, unspecified (ICD-10) Bipolar disorder ?F31.9 - Bipolar disorder, unspecified (ICD-10) Panic attacks ?F41.0 - Panic disorder [episodic paroxysmal anxiety] (ICD-10) COVID-19 (10/06/23) ?U07.1 - COVID-19 (ICD-10) Pneumonia ?J18.9 - Pneumonia, unspecified organism (ICD-10) GERD (gastroesophageal reflux disease) ?K21.9 - Gastro-esophageal reflux disease without esophagitis (ICD-10) Asthma ?J45.909 - Unspecified asthma, uncomplicated (ICD-10) Dyspnea on exertion ?R06.09 - Other forms of dyspnea (ICD-10) Scoliosis ?M41.9 - Scoliosis, unspecified (ICD-10) Palpitations ?R00.2 - Palpitations (ICD-10) Hypertension ?I10 - Essential (primary) hypertension (ICD-10) Hypokalemia ?E87.6 - Hypokalemia (ICD-10) Ectopic ?O00.90 - Unspecified ectopic without intrauterine (ICD-10) Ankle instability ?M25.373 - Other instability, unspecified ankle (ICD-10) Ankle joint disorder ?M19.079 - Primary osteoarthritis, unspecified ankle and foot (ICD-10) Presence of orthopedic implant of ankle ?Z96.7 - Presence of other bone and tendon implants (ICD-10) Foot pain ?M79.673 - Pain in unspecified foot (ICD-10) Cellulitis ?L03.90 - Cellulitis, unspecified (ICD-10) Ankle fracture ?S82.899A - Other fracture of unspecified lower leg, initial encounter for closed fracture (ICD-10) Degenerative disc disease Clostridium difficile diarrhea ?A04.72 - Enterocolitis due to Clostridium difficile, not specified as recurrent (ICD-10) Shoulder pain ?M25.519 - Pain in unspecified shoulder (ICD-10) Osteoarthritis ?M19.90 - Unspecified osteoarthritis, unspecified site (ICD-10) Osteoporosis ?M81.0 - Age-related osteoporosis without current pathological fracture (ICD-10) Surgical History (Updated 12/13/23 @ 14:07 by Rachna Madera NP) History of esophagogastroduodenoscopy (EGD) ?Z98.890 - Other specified postprocedural states (ICD-10) History of colonoscopy ?Z98.890 - Other specified postprocedural states (ICD-10) H/O unilateral salpingectomy ?Z90.79 - Acquired absence of other genital organ(s) (ICD-10) History of hernia repair ?Z98.890 - Other specified postprocedural states (ICD-10) ?Z87.19 - Personal history of other diseases of the digestive system (ICD-10) History of ankle surgery ?Z98.890 - Other specified postprocedural states (ICD-10) History of spinal surgery ?Z98.890 - Other specified postprocedural states (ICD-10) History of hysterectomy ?Z90.710 - Acquired absence of both cervix and uterus (ICD-10) Family History (Updated 03/20/24 @ 14:07 by Rachna Madera NP) Other Cardiomyopathy Delayed recovery from anesthesia Family history of coronary artery disease Family history of heart disease Family history of myocardial infarction Family history of skin cancer Family history of stroke Social History (Updated 12/13/23 @ 13:52 by Rachna Madera NP) Within the past year, how often did you have a drink containing alcohol: monthly or less Smoking status: Current every day smoker What tobacco products do you use: cigarettes Packs per day: 1 Years smoked: 37 Smoking pack-years: 37.00 Non-prescribed substance use: cannabis (any form) Highest level of school completed/degree received: high school graduate Meds Home Medications and Allergies Home Medications ?Medication ?Instructions ?Recorded ?Confirmed ?Type albuterol sulfate 90 mcg/actuation 2 inh inhalation Q6H PRN shortness 12/13/23 12/13/23 History aerosol inhaler of breath or wheezing alendronate 70 mg tablet 70 mg PO .weekly 12/13/23 12/13/23 History alprazolam 0.5 mg tablet 0.5 mg PO TID PRN anxiety 12/13/23 12/13/23 History dicyclomine 20 mg tablet 20 mg PO TID 12/13/23 12/13/23 History lisinopril 5 mg tablet 5 mg PO DAILY 12/13/23 12/13/23 History methocarbamol 750 mg tablet 750 mg PO Q8H PRN muscle spasm 12/13/23 12/13/23 History metoprolol succinate 100 mg 100 mg PO DAILY 12/13/23 12/13/23 History tablet,extended release 24 hr pantoprazole 40 mg tablet,delayed 40 mg PO DAILY 12/13/23 12/13/23 History release quetiapine 25 mg tablet 25 mg PO QPM 12/13/23 12/13/23 History quetiapine 50 mg tablet 50 mg PO QPM 12/13/23 12/13/23 History Allergies Allergy/AdvReac Type Severity Reaction Status Date / Time vancomycin Allergy Severe red man Verified 12/13/23 13:43 syndrome bacitracin Allergy Mild Rash Verified 12/13/23 13:43 lamotrigine [From Lamictal] AdvReac Severe Agitated Verified 12/13/23 13:43 clindamycin AdvReac c-diff Verified 12/13/23 14:20 Exam Narrative Exam Narrative: Constitutional: Awake, alert, comfortable, well-appearing, nontoxic, interactive, vital signs as charted Head: Normocephalic, atraumatic Neck: Supple, normal appearance, normal range of motion, no meningeal signs, no lymphadenopathy Respiratory: No respiratory distress, breath sounds clear Cardiovascular: Regular rate, irregular rhythm, strong heart tones Musculoskeletal: Well-healed scars medial and lateral left ankle with diffuse left ankle tenderness, range of motion limited due to pain, good capillary refill, sensation intact Skin: No rashes or induration, no lesions, only visible skin inspected Neuro: No neurological deficits, normal sensation Psychiatric: Oriented ?3, Anxious affect, Difficult to redirect Assessment and Plan Assessment and Plan (1) Presence of orthopedic implant of ankle: (2) Ankle joint disorder: (3) Ankle instability: (4) Ankle fracture: (5) Foot pain: Plan Left ankle arthroscopy, removal of medial and lateral malleolus hardware, peroneal tendon exploration with repair as needed, stress exam under fluoroscopy, ligament repairs as needed scheduled with Dr. Walsh 12/21/2023.
[2023-12-13 14:31] LABS: Basophils Absolute Auto 0.1 10^3/uL (0.0-0.1); Basophils Percent Auto 0.7 % (0.2-2.0); Eosinophils Absolute Auto 0.1 10^3/uL (0.0-0.7); Eosinophils Percent Auto 0.6 % (0.9-7.0); Hemoglobin 14.6 g/dL (12.0-16.0); Immature Granulocytes Abs Auto 0.05 10^3/uL (0.00-0.03); Immature Granulocytes Pct Auto 0.4 % (0.0-0.5); Lymphocytes Absolute Auto 3.1 10^3/uL (1.2-3.8); Lymphocytes Percent Auto 27.5 % (20.5-60.0); Mean Corpuscular Hemoglobin 35.4 pg (26.7-34.0); Mean Corpuscular Volume 104.4 fL (81.0-99.0); Mean Platelet Volume 8.8 fL (9.5-13.5); Monocytes Absolute Auto 0.8 10^3/uL (0.3-0.8); Monocytes Percent Auto 7.4 % (1.7-12.0); Neutrophils Absolute Auto 7.1 10^3/uL (1.4-6.5); Neutrophils Percent Auto 63.4 % (43.0-75.0); Platelet Count 379 10^3/uL (150-450); Red Blood Count 4.12 10^6/uL (4.20-5.40); Red Cell Distribution Width 14.9 % (11.0-15.0); White Blood Count 11.2 10^3/uL (4.0-11.0)
[2023-12-13 14:50] LABS: Anion Gap 15.7; Carbon Dioxide 25.7 mmol/L (21.0-32.0); Chloride 102 mmol/L (98-107); Estimated GFR (African America >60 (>=60); Estimated GFR (Non-African Ame 59 (>=60); Glucose 97 mg/dL (74-106); Potassium 4.4 mmol/L (3.5-5.1); Sodium 139 mmol/L (136-145)
[2023-12-13 15:03] LABS: INR 0.93; Partial Thromboplastin Time 26.2 sec (22.3-36.2); Prothrombin Time 9.9 sec (9.0-11.6)
== END 2023-12-13 13:22 | disposition home or self-care (01) ==
PROVIDERS: PCP Student in an Organized Health Care Education/Training Program; Visit Provider Podiatrist Foot & Ankle Surgery
DX: Z01.810 Encounter for preprocedural cardiovascular examination (principal); Z01.812 Encounter for preprocedural laboratory examination; Z01.818 Encounter for other preprocedural examination; S82.852S Displaced trimalleolar fracture of left lower leg, sequela
CPT/HCPCS: 71046; 80048; 85025; 85610; 85730; G0463

== ENCOUNTER 2023-12-21 06:13 | Day surgery (SDC) | payer MEDICARE, MEDICAID, SELFPAY ==
[2023-12-13 14:16] VITALS: BP 127/53; PULSE 85; RESP 20; TEMP 36.3; O2SAT 100; BMI 25.5
[2023-12-21] VITALS (25 sets, daily range): BP systolic 85–123; BP diastolic 53–93; PULSE 72–117; RESP 8–25; TEMP 36.1–36.4; O2SAT 84–99; BMI 23.1
--- NOTE | 2023-12-21 | FL_ITS ---
[address] [address] Patient Name: NATHANIEL MARCIAL MRN: [id number] date: 1975 Sex: F Assigned Patient Location: [facility] Current Patient Location: [facility] Accession/Order Number: [id number] Exam Date: 12/21/2023 08:00 Report Date: 12/22/2023 09:06 At the request of: FRANCIS YOUNG Procedure: FL fluoroscopy <1hr NON-READ EXAM: FL fluoroscopy <1hr NON-READ HISTORY: TECHNIQUE: FINDINGS: Please see Operative Report. Electronically authenticated by: RADIOLOGIST NO Date: 12/22/2023 09:06
--- OUTSIDE RECORDS SUMMARY | 2023-12-21 06:17 | XMS_ITS | CCD ---
Author Organization [facility] Care Team Providers Care Family Living Educator Name Role Phone PHYSICIAN, DEFAULT Unavailable Unavailable PHYSICIAN, DEFAULT Unavailable Unavailable Gracy Medina Primary Care Physician Gale Vasquez Unavailable Gracy Medina MD Primary Care Provider Sadiq Wilson Unavailable PROVIDER, UNKNOWN Attending Unavailable PROVIDER, UNKNOWN Admitting Unavailable CAROL, BRAYAN Primary Care Unavailable BERNARDA CORTES Attending Unavailable SEBASTIAN, BERNARDA Consulting Unavailable SEBASTIAN, BERNARDA Admitting Unavailable HELENA ANDERSEN Consulting Unavailable HAY ., DR FREY Admitting Unavailable HAY ., DR FREY Attending Unavailable HAY ., DR FREY Consulting Unavailable CAROL, BRAYAN Primary Care Unavailable PAY ., DR JAY Admitting Unavailable PAY ., DR JAY Attending Unavailable PAY ., DR JAY Consulting Unavailable CAROL, PEVELY Primary Care Unavailable KRISTINE ., FLORENCIA Consulting Unavailable SEBASTIAN, BERNARDA Admitting Unavailable BERNARDA CORTES Attending Unavailable CAROL, BRAYAN Primary Care Unavailable CAROLYN ., DR AGUS Katz Attending Unavailable CAROLYN ., DR AGUS Katz Admitting Unavailable CAROL, BRAYAN Primary Care Unavailable GALE VASQUEZ JR Admitting Unavailable GALE VASQUEZ JR Attending Unavailable GALE VASQUEZ JR Consulting Unavailable CAROL, PEVELY Primary Care Unavailable CAROL, BRAYAN Admitting Unavailable CAROL, BRAYAN Attending Unavailable CAROL, PEVELY Primary Care Unavailable Gracy Medina MD Primary Care Provider Gracy Medina MD Unavailable CAROL GRACY Primary Care Unavailable SHARITA MYERS Attending Unavailable CAROL, GRACY Primary Care Unavailable SHARITA MYERS Referring Unavailable CAROL, GRACY Referring Unavailable VERÓNICA DUARTE Attending Unavailable CAROL, GRACY Primary Care Unavailable SELF Referring Unavailable AURELIANO VANN Attending Unavailable CAROL, GRACY Primary Care Unavailable CAROL, GRACY Primary Care Unavailable SELF Referring Unavailable CAROL, GRACY Primary Care Unavailable RONAN CABELLO Attending Unava ilable DAVID LEON Unavailable DAVID LEON Attending Unavailable CAROL, GRACY M Attending Unavailable DAVID LEON Attending Unavailable MEERAHOTHBETH OLIVER Attending Unavailable LEIGHTON WEBER Attending Unavailable Carol, Gracy M Attending Unavailable Carol, Gracy M Admitting Unavailable DAVID LEON Admitting Unavailable DAVID LEON Attending Unavailable Bashir Loera Attending Unavailable Antonio Weinberg Attending Unavailable Eren Ramires Attending Unavailable Nate Gavin Referring Unavailable Nate Gavin Attending Unavailable Nate Gavin Admitting Unavailable Bullimore, Elzbieta Gerardo Admitting Unavailable Bullimore, Elzbieta E Attending Unavailable Carol, Gracy Primary Care Unavailable Jaspreet Cortez Admitting Unavailab le Jaspreet Cortez Attending Unavailab le Carol, Gracy Primary Care Unavailable Allergies Allergy Classification Reported Allergen(s) Allergy Type Date of Onset Reaction(s) Facility (20 sources) Bacitracin; Translations: [bacitracin] Drug Allergy 4 Unknown [facility] (20 sources) Vancomycin; Translations: [vancomycin] Drug Allergy 4 Unknown [facility] (10 sources) Tape 1 Drug allergy rash [facility] Comment on above: can use paper tape (10 sources) lamoTRIgine; Translations: [LAMOTRIGINE] Drug Allergy 2 Mental Status Change, Unknown (qualifier value) [facility] (1 source) Bacitracin Drug Allergy 3 [facility] Repository (2 sources) lamoTRIgine; Translations: [LaMICtal] Drug Allergy [facility] Repository (1 source) Vancomycin Drug Allergy [facility] Repository (2 sources) Clindamycin; Translations: [clindamycin] Drug Allergy Unknown (qualifier value) [facility] (1 source) Adhesive Tape; Translations: [Tape] Propensity to adverse reactions (disorder) [facility] Repository (1 source) Bacitracin Drug Allergy 3 [facility] Repository (1 source) lamoTRIgine Drug Allergy 3 [facility] Repository (1 source) Vancomycin Drug Allergy [address] [place] [address] Repository Medications Current Medications Medication Drug Class(es) Dates Sig (Normalized) Sig (Original) acetaminophen 325 mg / HYDROcodone bitartrate 5 mg oral tablet (3 sources) Opioid Agonist Start: 01-01-2022 [place] 325 mg-5 mg oral tablet 1 tab(s), Oral, q6hr for pain, 12 tab(s), Refill(s) 0 Start Date: 01/01/22 Status: Ordered acetaminophen 325 mg / oxyCODONE hydrochloride 5 mg oral tablet (7 sources) Opioid Agonist Start: 11-12-2022 Percocet 5 mg-325 mg oral tablet See Instructions, 40 tab(s), Refill(s) 0, 1-2 tab(s) Oral q4hr, [facility]/pharmacy #[id number], 149.9, cm, 11/12/22 6:57:00 EST, [...] day(s), # 60 tab(s), Refills(s) 0, Pharmacy: [facility]/pharmacy #[id number], 149.9, cm, 11/12/22 6:57:00 EST, Height/Length Dosing, 65.4, kg, 11/12/22 6:57:00 EST, Weight Dosing Start Date: 11/12/22 Stop Date: 12/12/22 Status: Ordered Symbicort (10 sources) Corticosteroid, beta2-Adrenergic Agonist Start: 11-12-2022 Symbicort Inhalation, BID, Refill(s) 0 Start Date: 11/12/22 Status: Ordered Start: 11-01-2022 take 2 puff(s) by mo ut twice daily budesonide-formoterol (SYMBICORT) 160-4.5 mcg/actuation inhaler [...] day(s), # 56 cap(s), Refills(s) 0, Pharmacy: [facility]/pharmacy #[id number], 150, cm, 10/13/23 15:54:00 EST, Height/Length Dosing, 60, kg, 10/13/23 15:54:00 EST, Weight Dosing Start Date: 10/13/23 Stop Date: 10/27/23 Status: Ordered Start: 11-11-2012 dicyclomine (B ENTYL) 20 mg tablet Take 20 mg by mouth. 0 11/11/2012 Active Start: 11-11-2012 take 1 tablet by [facility] four times daily as needed for [...] constipation, # 20 cap(s), Refills(s) 0, Pharmacy: [facility]/pharmacy #[id number], 149.9, cm, 11/12/22 6:57:00 EST, Height/Length Dosing, 65.4, kg, 11/12/22 6:57:00 EST, Weight Dosing Start Date: 11/12/22 Status: Ordered Comment on above: Take 1 capsule by [facility] twice daily. dronabinol 5 mg oral capsule [...] milk, # 50 tab(s), Refills(s) 0, Pharmacy: [facility]/pharmacy #[id number], 149.9, cm, 11/12/22 6:57:00 EST, [...] encounter] Onset: 4 Episodic Unclassified (1 source) Supraventricular tachycardia, unspecified; Translations: [Supraventricular tachycardia, unspecified] Onset: 2 Unclassified (1 source) Pain in right shoulder; [...] 2 Episodic Other aftercare (1 source) Other fdc (current) drug therapy; Translations: [OTH HALF-WAY CURRENT DRUG THERAPY] Onset: 3 Episodic Other [...] 11-27-19 ED Note-Physician Basic Information Time Seen: Rachelle JAUREGUI Jessica E. 11/26/2023 19:43 Chief Complaint Dropped phone on [...] prescription medications Follow-up With When Contact Information Gracy Medina MD In 3 days 11/29/[address] [place] [address]- Additional Instructions: Patient Education Contusion, Xhlk-wd-Lkps Attestation I performed a substantive part of [...] acute abnormality Read By: Jessica Bush PA-C Normal [facility] Comment on above: Result Comment: Elec tronically [...] mGy = na DAP = na Normal [facility] Consent for Treatmenton Consent for Treatment [id number] #1.00TIFF Normal [facility] Discharge Instructionson Discharge Instructions [id number] #1.00TIFF Normal [facility] ED Clinical Summaryon 2023 ED Clinical Summary [address] [address] ED Clinical Summary Person Information Name: NATHANIEL MARCIAL Kenyatta/[facility] Age: 48 Years : 1975 Sex: Female Language: Paraguayan PCP: Gracy Medina MD Marital Status: Phone: [phone] Visit Id: Visit Reason: Toe injury - [...] 11/26/2023 20:27:28 11/26/2023 20:27:28 11/26/2023 20:27:28 ADDRESS: [address] [place] [address] DR RACHELE Doran [facility] [phone] PHYS DOC NOTES: MEDICAL INFORMATION: Prescriptions Given: [...] at bedtime. PATIENT EDUCATION INFORMATION: Instructions: Contusion, Hfyu-yc-Furd Follow up: With: Address: When: Carol DESHPANDE, Gracy [facility] [place] [place] [address] In 3 days 11/29/2023 DIAGNOSIS: 1:Contusion of toe, left Normal [facility] ED Patient Education Noteon 11-26-2023 ED Patient [...] or lying down. General instructions ? Take nijj-okt-oipmwup and prescription medicines only as told by [...] also called RICE. You may be given iqeh-czq-mfdwzxh medicines for pain. ? Contact a doctor [...] provider. Document Revised: 07/07/2022 Document Reviewed: 07/07/2022 [employer] Patient Education ? 2022 [employer] Normal [facility] ED Patient Summaryon 024 ED Patient Summary [place] [id number] Patient Discharge Instructions Person Information Name: NATHANIEL MARCIAL Age: 48 Years Arrival Date: 11/26/2023 19:37:37 Discharge Diagnosis: 1:Contusion of toe, left Primary Care Physician: Gracy Medina MD Provider Information Primary Provider: Antonio Weinberg DO Advanced Gold Leaf Gilder:None The exam and treatment you received in the Emergency Department were for an urgent problem and are not intended as complete care. It is important that you follow up with a doctor, nurse practitioner, or physician?s pest controller assistant for ongoing care. If your symptoms [...] Instructions: With: Address: When: Carol DESHPANDE, Gr[place] [place] [address] In 3 days 11/29/2023 In the event that this physician does not participate in your insurance network, please consult with your insurance company to find a nearby participating provider. Patient Education Materials: Contusion, Cmhf-qh-Vylo A MESSAGE TO ALL PATIENTS REGARDING OPIOIDS PRESCRIPTION OPIOIDS: WHAT YOU NEED TO KNOW Prescription opioids can be used to help relieve fkdzxxgu-cs-wvsjgy pain and are often prescribed following a [...] be struggling with addiction, tell your health day care teacher and ask for guidance or call [facility] National Helpline at 5-413-822-YMFU. a Source: Department of Health and (more content not included)... Normal [facility] 37on 11-24-2023 37 Please notify office for any dry persistent cough after starting lisinopril Have blood drawn in about 1 week to check kidney function and electrolytes. Normal [facility] Office Visiton 11-24-2023 Follow-up visit [id number] Nathaniel Marcial 1975 F Date Provider Department Center 11/24/2023 Daiana-LEIGHTON WEBER Family History Problem Relation Age of Onset Heart failure Mother Heart failure Father Transient ischemic attack Father Family Status - Relation Status Age at Mother Father Level of Service:57487 ND OFFICE/OUTPATIENT ESTABLISHED MOD MDM 30 MIN Normal [facility] ED Note-Physicianon 10-14-19 ED Note-Physician Basic Information Time Seen: Sebas JAUREGUI, [place]. 10/13/2023 15:46 Chief Complaint Pt presents to [...] and Complexity of Problems Differential Diagnosis: [] [facility] Data External documents reviewed: [] My [...] day(s), # 56 cap(s), Refills(s) 0, Pharmacy: [facility]/pharmacy #[id number], 150, cm, 10/13/23 15:54:00 EST, Height/Length [...] UA With Cult Reflex Medications Administered Given [id number] [F] 1000 mg + GenDil 100 mL, IV Piggyback NS 1000 ml Bolus, 1000 mL, IV potassium bicarbonate 25 mEq Tab (K-LYTE), 50 mEq, Oral Disposition Plan Patient Dis (more content not included)... Normal [facility] Comment on above: Result Comment: Elec tronically Signed By: El Mullen PA-C\.br\Date and Time Signed: 10/13/23 19:38 EST\.br\Electronically Co-Signed By: Bashir Loera DO\.br\Date and Time Co-Signed: 10/14/23 08:22 EST BMPon 10-13-2023 Anion gap [Moles/Vol] 13 mmol/L Normal 6-16 [facility] Comment on above: Performed By: #### 2 891477, 1960744, 7634898, 48338781, 7259348 ####[facility] [address] [place] [address] BUN/Creat Ratio 13 No Units Normal 10-20 [facility] Comment on above: Performed By: #### 2 344050, 0762232, 6892819, 39019169, 8902473 ####[facility] [address] [place] [address] Calcium [Mass/Vol] 8.7 mg/dL Low 8.9-11.1 [facility] Comment on above: Performed By: #### 2 426760, 8857435, 3649935, 82758378, 9287326 ####[facility] [address] [place] [address] Chloride [Moles/Vol] 104 mmol/L Normal 101-111 [facility] Comment on above: Performed By: #### 2 396335, 1176614, 1246141, 86701338, 4902591 ####[facility] [address] [place] [address] CO2 [Moles/Vol] 24 mmol/L Normal 21-31 [facility] Comment on above: Performed By: #### 2 166834, 3566301, 7906908, 79123893, 4039816 ####[facility] [address] [place] [address] Creatinine [Mass/Vol] 0.7 mg/dL Normal 0.5-1.3 [facility] Comment on above: Performed By: #### 2 713889, 7540578, 0697433, 39099402, 3146696 ####[facility] [address] [place] [address] Glucose [Mass/Vol] 89 mg/dL Normal 55-199 [facility] Comment on above: Performed By: #### 2 100874, 2627464, 6889636, 16185494, 8004814 ####[facility] [address] [place] [address] Potassium [Moles/Vol] 2.9 mmol/L Low 3.5-5.3 [facility] Comment on above: Performed By: #### 2 442921, 0909309, 5159389, 27403629, 1265639 ####[facility] [address] [place] [address] Sodium [Moles/Vol] 138 mmol/L Normal 135-145 [facility] Comment on above: Performed By: #### 2 906536, 8810506, 9520689, 40874063, 9151823 ####[facility] [address] [place] [address] Urea nitrogen [Mass/Vol] 9 mg/dL Normal 5-21 [facility] Comment on above: Performed By: #### 2 175234, 5471794, 1150021, 21560838, 9262835 ####[address] [address] CBC w/ Auto Diffon 4 Basophil Absolute 0.0 E9/L Normal 0.0-0.2 [facility] Comment on above: Performed By: #### 2 919435, 0162596, 2511184, 38733995, 1559897 ####[address] [address] Basophils/100 WBC (Bld) 0.5 % Normal 0.0-2.0 [facility] Comment on above: Performed By: #### 2 576718, 0010645, 6655754, 96744280, 1900013 ####[address] [address] Eos Absolute 0.0 E9/L Normal 0.0-0.5 [facility] Comment on above: Performed By: #### 2 518804, 1495203, 2727443, 28233280, 3608401 ####[address] [address] Eosinophils/100 WBC (Bld) 0.1 % Normal 0.0-8.0 [facility] Comment on above: Performed By: #### 2 430079, 4852125, 5422745, 35038266, 6885379 ####[address] [address] Erythrocyte distribution width (RBC) [Ratio] 16.1 % High 10.9-14.2 [facility] Comment on above: Performed By: #### 2 720908, 8488151, 2734630, 51057943, 2568598 ####[address] [address] Hematocrit (Bld) [Volume fraction] 46.0 % Normal 34.0-46.0 [facility] Comment on above: Performed By: #### 2 577488, 7565715, 5444376, 05067839, 3581958 ####[facility] [address] [place] [address] Hemoglobin (Bld) [Mass/Vol] 15.5 g/dL Normal 12.0-16.0 [facility] Comment on above: Performed By: #### 2 829485, 3917067, 6921305, 75950543, 2949530 ####[facility] [address] [place], [place] [address] Lymph Absolute 2.1 E9/L Normal 1.0-4.0 [place] [facility] Comment on above: Performed By: #### 2 869451, 0585830, 8561587, 19838707, 3975373 ####[place] [address] Lymphocytes/100 WBC (Bld) 35.1 % Normal 14.0-50.0 [facility] Comment on above: Performed By: #### 2 362587, 9914884, 6433644, 07491274, 9415238 ####[facility] [address] [place] [address] MCH (RBC) [Entitic mass] 34.5 pg High 27.0-34.0 [facility] Comment on above: Performed By: #### 2 130767, 0791231, 7528473, 95275422, 6657927 ####[facility] [address] [place] [address] MCHC (RBC) [Mass/Vol] 33.4 g/dL Normal 31.4-36.0 [facility] Comment on above: Performed By: #### 2 852241, 8223944, 9578954, 34689160, 3236619 ####[address] [address] MCV (RBC) [Entitic vol] 103.1 fL High 80.0-100.0 [facility] Comment on above: Performed By: #### 2 469856, 4245897, 9573614, 26880399, 2332973 ####[facility] [address] [place] [address] Hickory Absolute 0.6 E9/L Normal 0.2-1.0 [facility] Comment on above: Performed By: #### 2 471825, 3337704, 5089487, 76185736, 6163346 ####[facility] [address] [place] [address] Monocytes/100 WBC (Bld) 9.5 % Normal 4.0-14.0 [facility] Comment on above: Performed By: #### 2 539564, 2755955, 8954170, 51757812, 9147998 ####[address] [address] Neutro Absolute 3.2 E9/L Normal 2.0-7.5 [facility] Comment on above: Performed By: #### 2 609900, 1489345, 8446525, 65685673, 7698945 ####[address] [address] Neutro Auto 54.8 % Normal 36.0-75.0 [facility] Comment on above: Performed By: #### 2 727309, 5152067, 0597644, 70481918, 5910196 ####[address] [address] Platelet 322.0 E9/L Normal 150.0-500.0 [facility] Comment on above: Performed By: #### 2 603737, 1552187, 8454162, 08392156, 9130717 ####[facility] [address] [place] [address] Platelet mean volume (Bld) [Entitic vol] 8.2 fL Normal 6.4-10.8 [facility] Comment on above: Performed By: #### 2 094006, 6804676, 8021602, 47521265, 0965707 ####[facility] [address] [place] [address] RBC 4.5 E12/L Normal 4.3-5.9 [facility] Comment on above: Performed By: #### 2 106683, 6003341, 3967873, 46309038, 7915546 ####[facility] [address] [place] [address] WBC 5.9 E9/L Normal 4.0-11.0 [facility] Comment on above: Performed By: #### 2 358838, 8746732, 6814921, 37140196, 3171961 ####[facility] [address] [place] [address] CHEMISTRYOrdered By: SYSTEM SYSTEM on 10-13-2023 Albumin [...] REPORT Dictated: 10/13/2023 6:21 pm Venu Persaud MD. Signed (Electronic Signature): 10/13/2023 6:21 pm Signed by: Venu Persaud MD Transcribed by: CARISA Technologist: SRF Technical Comments GFR (mL/min/1/73m2) n/a age Contrast: Isovue 300 Contrast amount in ml's: 100 Normal [facility] Consent for Treatmenton 09-25 Consent for Treatment [id number] #1.00TIFF Normal [facility] Discharge Instructionson Discharge Instructions [id number] #1.00TIFF Normal [facility] ED Clinical Summaryon 2023 ED Clinical Summary [place] [id number] ED Clinical Summary Person Information Name: NATHANIEL MARCIAL [place] Age: 47 Years : 1975 Sex: Female Language: Paraguayan PCP: Gracy Medina MD Marital Status: Phone: [phone] Visit Id: Visit Reason: Constipation; LOWER ADB [...] 10/13/2023 18:55:43 10/13/2023 18:55:43 10/13/2023 18:55:43 ADDRESS: [address] [place] [address] DR JEFFREY [facility] [phone] PHYS DOC NOTES: MEDICAL INFORMATION: Prescriptions Given: Medications to Continue Taking That Have Changed [facility]/pharmacy #[id number], [address] [place], [place] [id number], [phone] START: dicyclomine (Bentyl 10 mg Cap) 1 [...] PATIENT EDUCATION INFORMATION: Instructions: Abdominal Pain, Adult, Hxra-vh-Mitn; Constipation, Adult Follow up: With: Address: When: [place] [place] [address] [employer] In 3 days 10/16/2023 Comments: Follow-up with your primary care provider in 3 to 5 days. If symptoms worsen, do not improve, or new symptoms arise please report back to emergency department for further evaluation. DIAGNOSIS: Abdominal pain; Constipation; Hypokalemia Normal [facility] ED Patient Education Noteon 10-13-2023 ED Patient [...] these instructions at home: Medicines ? Take unly-pqf-lokmbvm and prescription medicines only as told by [...] belly pain for any changes. ? Take bgoe-zbr-ggopxcf and prescription medicines only as told by [...] provider. Document Revised: 01/20/2020 Document Reviewed: 01/20/2020 [employer] Patient Education ? 2022 [employer] Constipation, Adult Constipation is when a person [...] as fried or sweet foods. These include turkmen fries, hamburgers, cookies, candies, and soda. ? Drink enough fluid to keep your urine pale yellow. General instructions ? Exercise regularly or as told by your health care provider. Try to do 150 minutes of moderate exercise each week. ? Use the bathroom when you have the urge to go. Do not hold it in. ? Take sfeh-fnw-hxkorwx and prescription medicines only as told by [...] keep your urine pale yellow. ? Take vuun-ouc-fycwwtj and prescription medicines only as told by your health care provider. This includes any fiber supplements. This information is not intended t (more content not included)... Normal [facility] ED Patient Summaryon 024 ED Patient Summary [address] [address] Patient Discharge Instructions Person Information Name: NATHANIEL MARCIAL Age: 47 Years Arrival Date: 10/13/2023 15:37:09 Discharge Diagnosis: Abdominal pain; Constipation; Hypokalemia Primary Care Physician: Gracy Medina MD Provider Information Primary Provider: Bashir Loera DO Advanced Gold Leaf Gilder:None The exam and treatment you received in the Emergency Department were for an urgent problem and are not intended as complete care. It is important that you follow up with a doctor, nurse practitioner, or physician?s pest controller assistant for ongoing care. If your symptoms [...] Instructions: With: Address: When: Gracy [place] [address] [facility] (1) In 3 days 10/16/2023 Comments: Follow-up [...] provider. Patient Education Materials: Abdominal Pain, Adult, Rfep-go-Ovzr; Constipation, Adult A MESSAGE TO ALL PATIENTS REGARDING OPIOIDS PRESCRIPTION OPIOIDS: WHAT YOU NEED TO KNOW Prescription opioids can be used to help relieve jhigbsnb-ks-jlsmhh pain and are often prescribed following a [...] learn about (more content not included)... Normal [facility] HEMATOLOGYOrdered By: SYSTEM SYSTEM on 10-13-2023 Basophil [...] High 80.0 - 100.0 fL Remisol Heme [place] Absolute 0.6 E9/L Normal 0.2 - 1.0 [...] 10-13-2023 Albumin [Mass/Vol] 4.1 g/dL Normal 3.3-5.0 [facility] Comment on above: Performed By: #### 2 333817, 4006642, 9905105, 54367828, 0426320 ####[facility] [address] [place] [address] Albumin/Globulin [Mass ratio] 1.2 {ratio} Normal 1.1-2.2 [facility] Comment on above: Performed By: #### 2 076631, 1428729, 6032609, 34071001, 9380884 ####[facility] [address] [place] [address] Alk Phos 115 Int._Unit/L High 21-98 [facility] Comment on above: Performed By: #### 2 445800, 2448327, 9109261, 71331230, 2612431 ####[facility] [address] [place] [address] ALT 22 Int._Unit/L Normal 6-46 [facility] Comment on above: Performed By: #### 2 869976, 0552319, 2427874, 36508735, 8404593 ####[facility] [address] [place] [address] AST 17 Int._Unit/L Normal 5-43 [facility] Comment on above: Performed By: #### 2 440568, 9998032, 3844381, 25052180, 9551639 ####[facility] [address] [place] [address] Bili Direct 0.2 mg/dL Normal 0.0-0.4 [facility] Comment on above: Performed By: #### 2 814526, 4695223, 5556912, 08894547, 2099889 ####[facility] [address] [place], [place] [address] Bili Indirect 0.4 mg/dL Normal 0.1-0.9 [facility] Comment on above: Performed By: #### 2 [id number], [id number], 6392828, [id number], 8091231 ####[address] [address] Bili Total 0.6 mg/dL Normal 0.0-1.1 [facility] Comment on above: Performed By: #### 2 607695, 1001848, 5977181, 11911074, [id number] ####[facility] [address] [place] [address] Globulin (S) [Mass/Vol] 3.3 g/dL Normal 1.4-4.0 [facility] Comment on above: Performed By: #### 2 668419, 6342618, 7590256, [id number], 1340858 ####[address] [place] [address] Protein [Mass/Vol] 7.4 g/dL Normal 6.0-7.8 [facility] Comment on above: Performed By: #### 2 922580, 4812914, 8324648, 79238132, 3577741 ####[address] [place] [address] Lipase Levelon 10-13-2023 Lipase Lvl 11 unit/L Low 13-58 [facility] Comment on above: Performed By: #### 2 162978, 0599441, 3400653, [id number], 9132928 ####[facility] [address] [place] [address] UA With Cult Reflexon 2023 Bacteria LM Ql (Urine sed) TRACE Normal Trace [facility] Comment on above: Performed By: #### 1 [id number] ####[address] [address] Bilirubin Ql (U) Negative Normal Negative [facility] Comment on above: Performed By: #### 1 1345677 ####[address] [address] Clarity (U) CLEAR Normal Clear [facility] Comment on above: Performed By: #### 1 4588349 ####[address] [address] Color (U) YELLOW Normal Yellow [facility] Comment on above: Performed By: #### 1 [id number] ####[address] [address] Epithelial cells.squamous LM.HPF (Urine sed) [#/Area] 0-2 Normal 0-2 [facility] Comment on above: Performed By: #### 1 8581216 ####[address] [address] Glucose Test strip (U) [Mass/Vol] Negative Normal Negative [facility] Comment on above: Performed By: #### 1 6448047 ####[address] [address] Hemoglobin Ql (U) TRACE Abnormal Negative [facility] Comment on above: Performed By: #### 1 1764139 ####[address] [address] Ketones (U) [Mass/Vol] Negative Normal Negative [facility] Comment on above: Performed By: #### 1 [id number] ####[address] [address] Poteet.plasma/Poteet .RBC (Bld) [Mass ratio] 0-3 Normal 0-3 [facility] Comment on above: Performed By: #### 1 [id number] ####[address] [address] Nitrite Ql (U) Negative Normal Negative [facility] Comment on above: Performed By: #### 1 7515576 ####[address] [address] pH (U) 6.5 [pH] Invalid Interpretation Code 5.0-9.0 [facility] Comment on above: Performed By: #### 1 [id number] ####[address] [address] Protein (U) [Mass/Vol] Negative Normal Negative [facility] Comment on above: Performed By: #### 1 0310229 ####[address] [address] Specific gravity (U) [Rel density] <=1.005 Invalid Interpretation Code 1.005-1.030 [facility] Comment on above: Performed By: #### 1 9852602 ####[address] [address] Type of Urine collection method Clean Catch Normal [facility] Comment on above: Performed By: #### 1 7140557 ####[address] [address] Urobilinogen Qn (U) 0.2 {Arturo'U}/dL Normal 0.0-1.0 [facility] Comment on above: Performed By: #### 1 [id number] ####[address] [address] WBC Auto Ql (U) Negative Normal Negative [facility] Comment on above: Performed By: #### 1 9900366 ####[address] [address] WBC LM.HPF (Urine sed) [#/Area] 0-5 Normal 0-5 [facility] Comment on above: Performed By: #### 1 3792166 ####[address] [address] URINALYSISOrdered By: Annette Porter on 10-13-2023 Bacteria [...] PM) Normal Negative [facility] UA Auto SS Poteet.plasma/Poteet .RBC (Bld) [Mass ratio] 0-3 /HPF Normal [...] [facility] UA Auto SS Urobilinogen Qn (U) 0.2553777 {Arturo'U}/dL Normal 0.0 - 1.0 EU/dL [facility] UA Auto SS WBC Auto Ql (U) Negative (10/13/23 4:23 PM) Normal Negative [facility] UA Auto SS WBC LM.HPF (Urine sed) [#/Area] 0-5 /HPF Normal 0-5/HPF [facility] UA Auto SS eGFRon 01-19-2024 eGFR 106 mL/min/1.73 m2 Normal >=59 [facility] Comment on above: Order Comment: Order added by Discern Expert. Performed By: #### 2 194273, 3597498, 8585243, [id number], 8492784 ####[facility] [address] [place] [address] C. diff by PCRon 08-31-2023 Clostridium difficile by PCR Negative Normal Negative [facility] Comment on above: Result Comment: This test result should be correlated with clinical presentations and medical history by a healthcare provider to determine its clinical significance. Performed By: #### 4 [id number] ####[facility] [address] [place] [address] Consent for Treatmenton Consent for Treatment [id number] #1.00TIFF Normal [facility] Physician Orderon 08-30-2023 Physician Order [id number] 6#1.00TIFF Normal [facility] Consent for Treatmenton Consent for Treatment [id number] #1.00CD:127 Normal [facility] Physician Orderon 05-31-2023 Physician Order [id number] #1.00CD:127 Normal [facility] XR Foot 3+ Views Lefton XR Foot [...] = na DAP = na Normal [facility] CNPNon 05-11-2023 CNPN Telephone (ORHSMN) NATHANIEL MARCIAL ([id number]) 1975 F Date Time Provider Department 05/11/23 [facility] During your visit today, we recorded [...] Fully Assessed Reason for Visit: Patient Question [8876] Cmt: Offering patient surgical date. Prescriptions as [...] Status:Closed by MARCIE CHOU on 05/11/23 Normal [facility] Telephone (ORQ) NATHANIEL MARCIAL ([id number]) 1975 F Date Time Provider Department 05/11/23 SHARITA MYERS During your visit today, we recorded the following information about you: Tony Itzel Vinita 05/11/2023 10:35 AM Signed Left VM and sent [employer] message to patient to see if she [...] Status:Closed by VINITA CRABTREE on 05/11/23 Normal [facility] Office Visiton 04-14-2023 Follow-up visit [id number] Nathaniel Marcial 1975 F Date Provider Department Center 04/14/2023 3848-BETH GUEVARA EVERETTE Love Family History Problem Relation Age of Onset Heart failure Mother Heart failure Father Transient ischemic attack Father Family Status - Relation Status Age at Mother Father Level of Service:08810 ND OFFICE/OUTPATIENT ESTABLISHED MOD [facility] 30-39 MIN Normal [facility] Sara 04-11-2023 CNPN Telephone (PODITW) NATHANIEL MARCIAL ([id number]) 1975 F Date Time Provider Department 04/11/23 AURELIANO VANN PODITW During your visit today, we recorded the following information about you: Abi Montague 04/11/2023 12:06 PM Signed Patient states that [employer] is unable to send out bone stimulator due to incorrect verbiage in order. Please all Leigh Ann at [phone] to clarify Selina Villa 04/11/2023 1:21 PM [...] MA 04/12/2023 11:00 AM Signed Faxed to [phone] per below note. Thank you, Emilee Dubon MA Abi Montague 04/12/2023 1:29 PM Signed Leigh Ann calling back---everything was sent for the wrong ankle. Please call Leigh Ann at [phone] Aureliano Vann DPM 04/12/2023 2:51 PM Signed [...] office said we can contact her at [phone] with any questions. Please contact patient or [...] Patient scheduled for Podiatry on 05/30 at [facility] Allergies As of Date: 04/11/2023 Noted [...] 30 M (more content not included)... Normal [facility] CNOVon 04-10-2023 CNOV Office Visit (MORH) NATHANIEL MARCIAL ([id number]) 1975 F Date Time Provider Department 04/10/23 [...] As you know she is a 47-year-old veol-mpax-lmrtvlai female with complaints in her shoulder that [...] rotation i (more content not included)... Normal [facility] XR SHLDR >/=3V AP/PIEDAD AP/OTH R RTon [...] Collapse of the humeral head as described. Administrative Assistant Office Manager: PSCB Transcribe Date/Time: Apr 13 2023 4:03P Dictated by : PAUL REED MD This examination was interpreted and the report reviewed and electronically signed by: PAUL REED MD on Apr 13 2023 4:04PM EST [id number] CN [facility] [address] [place] [address] CT Scan Report Signed Patient: Nathaniel Marcial MR#: [id number] 50 : 1975 Acct:[id number] Age/Sex: 47 / F ADM Date: 04/07/23 Loc: ER Room: Type: [facility] ER Attending Dr: Copies to: LEE Coleman [...] Will May M.D.04/07/2023 1:18 PM Dictation Location: [place] [address] Transcribed By: [facility] 04/07/231317 Dictated By: Will May DO 04/07/231309 Signed By: 04/07/231317 [facility] CNOVon 03-30-2023 CNOV Office Visit (ORTHMN) NATHANIEL MARCIAL ([id number]) 1975 F Date Time Provider Department 03/30/23 10:40 AM VERÓNICA DURATE ORTHMN During your visit today, we recorded the [...] seen Dr. Nate Gavin with [facility] in [place] and ordered a MRI of her shoulder [...] belly press test. Positive speeds test. Positive Harris's test. Positive impingement signs (more content not included)... Normal [facility] CNOVon 03-27-2023 CNOV Office Visit (PODIMN) NATHANIEL MARCIAL ([id number]) 1975 F Date Time Provider Department 03/27/23 [...] Plan: - (more content not included)... Normal [facility] XR ANKLE 3V AP/LAT/OBL LTon 03-27-2023 XR [...] WHICH MAY RELATED TO DISUSE AND/OR HYPEREMIA. Administrative Assistant Office Manager: PSCB Transcribe Date/Time: Mar 27 2023 12:44P Dictated by : KENDALL GUTIERREZ MD This examination was interpreted and the report reviewed and electronically signed by: KENDALL GUTIERREZ MD on Mar 27 2023 12:45PM EST [id number] Normal [facility] XR ANKLE GENERAL 3V AP/LAT/O BL LEFTon 03-27-2023 [facility] BD Bone Density DEXAon 02-06 BD [...] V. Transcribed by: CARISA Technologist: LYNNE Colvin [facility] Consent for Treatmenton 01-23 Consent for Treatment [id number] #1.00CD:127 Normal [facility] ED Note-Physicianon 02-06-20 ED Note-Physician Basic Information [...] medications Follow-up With When Contact Information Nate Romaine In 3 days 02/03/2023 EDT [address] [place] [address]- Business (1) Additional Instructions: Gracy Medina In 3 days 02/03/2023 EDT [address] [place] [address]- VirtualU (1) Additional Instructions: Patient Education Foot Sprain Attestation Patient seen and evaluated by the physician pest controller assistant. Attending physician was present in the emergency department and supervised care. This visit was performed by both the physician and an APC. I performed all aspects of the MDM as documented. This report was transcribed using voice recognition software. Every effort was made to ensure accuracy, however, inadvertently computerized merchandise collector mistakes may be present. Appropriate healthcare PPE [...] 01/01/2022 Current, Marijuana, (more content not included)... [facility] Comment on above: Result Comment: Elec tronically Signed By: Perry Osorio PA-C\.br\Date and Time Signed: 01/31/23 18:56 EDT\.br\Electronically Co-Signed By: Eren Ramires DO\.br\Date and Time Co-Signed: 02/05/23 07:11 EDT Physician Orderon 02-01-2023 Physician Order [id number] #1.00CD:127 [facility] Consent for Treatmenton Consent for Treatment [id number] #1.00CD:127 [facility] Discharge Instructionson Discharge Instructions [id number] 6#1.00CD:127 [facility] ED Clinical Summaryon 2022 ED Clinical Summary [place] [id number] ED Clinical Summary Person Information Name: NATHANIEL MARCIAL [facility] Age: 47 Years : 1975 Sex: Female Language: Paraguayan PCP: Gracy Medina MD Marital Status: Phone: [phone] Visit Id: Visit Reason: Foot pain-swelling; LEFT [...] 01/31/2023 11:16:35 01/31/2023 11:16:35 01/31/2023 11:16:35 ADDRESS: [facility] [place] [id number] PHYS DOC NOTES: MEDICAL INFORMATION: Prescriptions Given: [...] Sprain Follow up: With: Address: When: [place] [address] Business (1) In 3 days 02/03/2023 With: Address: When: [place] [place] [address] Business (1) In 3 days 02/03/2023 DIAGNOSIS: Foot sprain Normal [facility] ED Patient Education Noteon 01-31-2023 ED Patient [...] on your foot. General instructions ? Take tfct-uxj-isvkhef and prescription medicines only as told by your health care provider. ? When you can walk without pain, wear supportive shoes t (more content not included)... Normal [facility] ED Patient Summaryon 023 ED Patient Summary [address] [address] Patient Discharge Instructions Person Information Name: NATHANIEL MARCIAL Age: 47 Years Arrival Date: 01/31/2023 09:35:54 Discharge Diagnosis: Foot sprain Primary Care Physician: Gracy Medina MD Provider Information Primary Provider: Eren Ramires DO [facility] [employer] Gilder:Perry Osorio PA-C The exam and treatment you received in the Emergency Department were for an urgent problem and are not intended as complete care. It is important that you follow up with a doctor, nurse practitioner, or physician?s pest controller assistant for ongoing care. If your symptoms [...] Follow-up Instructions: With: Address: When: Nate Gavin [address] [place] [address] VirtualU (1) In 3 days 02/03/2023 With: Address: When: [place] [address] Business (1) In 3 days 02/03/2023 In the event that this physician does not participate in your insurance network, please consult with your insurance company to find a nearby participating provider. Patient Education Materials: Foot Sprain A MESSAGE TO ALL PATIENTS REGARDING OPIOIDS PRESCRIPTION OPIOIDS: WHAT YOU NEED TO KNOW Prescription opioids can be used to help relieve zhmpjkoa-ai-dgrytw pain and are often prescribed following a [...] be struggling with addiction, tell your health day care teacher a (more content not included)... Normal [facility] XR Foot 3+ Views Lefton 05-0 XR Foot 3+ Views Left Exam Date/Time: 01/31/2023 10:09 EDT Reason for Exam: Pain, Traumatic Report IMPRESSION: Diffusely decreased bone mineral density as discussed, which may relate to disuse. No distinct acute displaced fracture. EXAMINATION/TECHNIQU E: XR Foot 3+ Views Left HISTORY: History of recent ankle surgery. [place] popping sensation with pain and swelling along [...] mGy = na DAP = na Normal [facility] Physician Orderon 01-26-2023 Physician Order [id number] #1.00CD:127 Normal [facility] Progress Noteson 01-11-2023 Simulation Engineer Authentication Interface Message Text EMERGENCY TRIAGE, TREAT AND TRANSPORT (ET3) DOCUMENTATION OF TELEHEALTH VISIT Date / Time: 01/11/2023514 Name: Nathaniel Marcial : 1975 SSN: [id number] EMS Agency: [facility] [x] Verbal consent obtained [] Implied [...] Completed by: Jarred Rosado MD Normal [facility] CHEMISTRYOrdered By: SYSTEM SYSTEM on 11-12-2022 [...] 59 mL/min/1.73 m2 Normal >=59mL/min/1 .73 m2 [facility] Chem S Glucose [Mass/Vol] 97 mg/dL Normal [...] [facility] CNOVon 07-28-2022 CNOV Office Visit (MARCO ANTONIO) MARCIALNATHANIEL Carrillo ([id number]) 1975 F Date Time Provider Department 07/28/22 [...] Signed GENERAL SURGERY CLINIC NOTE Nathaniel Marcial [id number] HPI: Nathaniel Marcial is a 46 year [...] not recall but is following with a auto technician in 1 week. O: BP 125/89 Pulse [...] Cabello MD 07/28/2022 1:17 PM Signed Nathaniel Marcila is a 46 year old female who [...] Date Reviewed: 07/08/2021 Reviewed by: Maria R Lma Ma - Fully Assessed Reason for Visit: [...] Cellulitis [L03. (more content not included)... Normal [facility] OVA AND PARASITE EXAMINATION on 05-18-2022 Ova + Parasite Exam Final report Normal [facility] Comment on above: Result Comment: Thes e results were obtained using wet preparation(s) and trichrome stained smear. This test does not include testing for Cryptosporidium parvum, Cyclospora, or Microsporidia. Performed By: #### O VAPE #### [facility] [address] [place] [address] Dr. Jemima Paul Result 1 Comment Normal [facility] Comment on above: Result Comment: No o va, cysts, or parasites seen. . One negative specimen does not rule out the possibility of a parasitic infection. Performed By: #### O VAPE #### [facility] [address] [place] [address] Dr. Jemima Paul LACTOFERRIN FECAL QUANTon Lactoferrin, Fecal, Quant. <1.00 Normal 0.00-7.24 [facility] Comment on above: Result Comment: [...] By: #### L ACTFQ #### [facility] [address] [place] [address] Dr. Jemima Paul STOOL CULTUREon 05-16-2022 Campylobacter Culture Final report Normal [facility] Comment on above: Performed By: #### C XSTOOL #### [facility] [address] [place] [address] Dr. Jemima Paul E coli Shiga Toxin EIA Negative Normal Negative [facility] Comment on above: Performed By: #### C XSTOOL #### [facility] [address] [place] [address] Dr. Jemima Paul Result 1 Comment Normal [facility] Comment on above: Result Comment: No S almonella or Shigella recovered. Performed By: #### C XSTOOL #### [facility] [address] [place] [address] Dr. Jemima Paul Result Comment: No C ampylobacter species isolated. Salmonella/Shigella Screen Final report Normal [facility] Comment on above: Performed By: #### C XSTOOL #### [facility] [address] [place] [address] Dr. Jemima Paul C. DIFF PCRon 05-11-2022 C. DIFFICILE PCR Negative Normal NEGATIVE [facility] Comment on above: Performed By: #### C DIFPOC #### [facility] [address] [place] [address] Dr. Jemima Paul CBC AUTO DIFFon 03-17-2022 BASO # 0.1 103/ul Normal 0.0-0.1 [facility] Comment on above: Performed By: #### C BC #### [facility] [address] [place] [address] Dr. Jemima Paul Basophils/100 WBC (Bld) 1.0 % Normal 0.2-2.0 [facility] Comment on above: Performed By: #### C BC #### [facility] [address] [place] [address] Dr. Jemima Paul EO # 0.2 103/ul Normal 0.0-0.7 [facility] Comment on above: Performed By: #### C BC #### [facility] [address] [place] [address] Dr. Jemima Paul Eosinophils/100 WBC (Bld) 3.0 % Normal 0.9-7.0 [facility] Comment on above: Performed By: #### C BC #### [facility] [address] [place] [address] Dr. Jemima Paul Erythrocyte distribution width (RBC) [Ratio] 12.4 % Normal 11.0-15.0 [facility] Comment on above: Performed By: #### C BC #### [facility] [address] [place] [address] Dr. Jemima Paul Hematocrit (Bld) [Volume fraction] 43.4 % Normal 36.0-48.0 [facility] Comment on above: Performed By: #### C BC #### [facility] [address] [place] [address] Dr. Jemima Paul Hemoglobin (Bld) [Mass/Vol] 14.8 g/dL Normal 12.0-16.0 [facility] Comment on above: Performed By: #### C BC #### [facility] [address] [place] [address] Dr. Jemima Paul IG # 0.04 10e3/ul Critically high 0.00-0.03 [facility] Comment on above: Performed By: #### C BC #### [facility] [address] [place] [address] Dr. Jemima Paul IG % 0.6 % Critically high 0.0-0.5 [facility] Comment on above: Performed By: #### C BC #### [facility] [address] [place] [address] Dr. Jemima Paul LYMPH # 3.1 103/ul Normal 1.2-3.8 [facility] Comment on above: Performed By: #### C BC #### [facility] [address] [place] [address] Dr. Jemima Paul Lymphocytes/100 WBC (Bld) 44.9 % Normal 20.5-60.0 [facility] Comment on above: Performed By: #### C BC #### [facility] [address] [place] [address] Dr. Jemima Paul MANUAL DIFF REQ NO Normal [facility] Comment on above: Performed By: #### C BC #### [facility] [address] [place] [address] Dr. Jemima Paul MCH (RBC) [Entitic mass] 36.2 pg Critically high 26.7-34.0 [facility] Comment on above: Performed By: #### C BC #### [facility] [address] [place] [address] Dr. Jemima Paul MCHC (RBC) [Mass/Vol] 34.1 g/dL Normal 29.9-35.2 [facility] Comment on above: Performed By: #### C BC #### [facility] [address] [place] [address] Dr. Jemima Paul MCV (RBC) [Entitic vol] 106.1 fL Critically high 81.0-99.0 [facility] Comment on above: Performed By: #### C BC #### [facility] [address] [address] [address] Jemima Paul MONO # 0.4 103/ul Normal 0.3-0.8 [facility] Comment on above: Performed By: #### C BC #### [facility] [address] [address] [address] Jemima Paul Monocytes/100 WBC (Bld) 6.2 % Normal 1.7-12.0 [facility] Comment on above: Performed By: #### C BC #### [facility] [address] [address] [address] Jemima Paul NEUT # 3.1 103/ul Normal 1.4-6.5 [facility] Comment on above: Performed By: #### C BC #### [facility] [address] [place] [address] Dr. Jemima Paul Neutrophils/100 WBC (Bld) 44.3 % Normal 43.0-75.0 [facility] Comment on above: Performed By: #### C BC #### [facility] [address] [place] [address] Dr. Jemima Paul Platelet mean volume (Bld) [Entitic vol] 8.3 fL Critically low 9.5-13.5 [facility] Comment on above: Performed By: #### C BC #### [facility] [address] [place] [address] Dr. Jemima Paul PLT 288 103/ul Normal 150-450 [facility] Comment on above: Performed By: #### C BC #### [facility] [address] [place] [address] Dr. Jemima Paul RBC 4.09 106/ul Critically low 4.20-5.40 [facility] Comment on above: Result Comment: TEAR DROP CELLS 3+, MACROCYTOSIS 3+ Performed By: #### C BC #### [facility] [address] [place] [id number] Dr. Jemima Paul WBC 7.0 103/ul Normal 4.0-11.0 [facility] Comment on above: Performed By: #### C BC #### [facility] Laboratory [address] [place] [address] ABD/PELV W CONon [...] by: HELENA ANDERSEN Date: 2022-03-17 00:46 Normal [facility] PROF CHEM 8 (BAS METB)on Anion gap [Moles/Vol] 14.6 mmol/L Normal [facility] Comment on above: Performed By: #### B MP #### [facility] [address] [place] [address] Dr. Jemima Paul Calcium [Mass/Vol] 8.6 mg/dL Normal 8.5-10.1 [facility] Comment on above: Performed By: #### B MP #### [facility] [address] [address] [address] Jemima Paul Chloride [Moles/Vol] 100 mmol/L Normal 98-107 [facility] Comment on above: Performed By: #### B MP #### [facility] [address] [address] [address] Jemima Paul CO2 [Moles/Vol] 24.3 mmol/L Normal 21.0-32.0 [facility] Comment on above: Performed By: #### B MP #### [facility] [address] [address] [address] Jemima Paul Creatinine [Mass/Vol] 0.99 mg/dL Normal 0.55-1.02 [facility] Comment on above: Performed By: #### B MP #### [facility] [address] [address] [address] Jemima Paul EGFR-AF GREENLANDIC >60 Normal >=60 [facility] Comment on above: Performed By: #### B MP #### [facility] [address] [address] [address] Jemima Paul EGFR-NON AF GREENLANDIC 60 mL/min/1.73m2 Normal >=60 [facility] Comment on above: Performed By: #### B MP #### [facility] [address] [address] [address] Jemima Paul Glucose [Mass/Vol] 108 mg/dL Critically high 74-106 [facility] Comment on above: Performed By: #### B MP #### [facility] [address] [address] [address] Jemima Paul Potassium [Moles/Vol] 3.9 mmol/L Normal 3.5-5.1 [facility] Comment on above: Performed By: #### B MP #### [facility] [address] [address] [address] Jemima Paul Sodium [Moles/Vol] 135 mmol/L Critically low 136-145 [facility] Comment on above: Performed By: #### B MP #### [facility] [address] [address] [address] Jemima Paul Urea nitrogen [Mass/Vol] 11.0 mg/dL Normal 7.0-18.0 [facility] Comment on above: Performed By: #### B MP #### [facility] [address] [address] [address] Jemima Paul Urea nitrogen/Creatinine [Mass ratio] 11.1 mg/mg Normal [facility] Comment on above: Performed By: #### B MP #### [facility] [address] [place] [address] Dr. Jemima Paul Large Joint Arthro/Inj: R gl enohumeral [facility] Vital Signs Date Time Vital Sign Value Performing Clinician Facility 11-26-2023 19:43-0500 Body temperature 98.42 [degF] Antonio Lenard [facility] 11-26-2023 19:43-0500 Diastolic blood pressure 75 mm[Hg] Antonio Lenard [facility] 11-26-2023 19:43-0500 Heart rate 111 /min Antonio Lenard [facility] 11-26-2023 19:43-0500 Respiratory rate 16 /min Antonio Lenard [facility] 11-26-2023 19:43-0500 SaO2% (BldA) [Mass fraction] 95 % Antonio Lenard [facility] 11-26-2023 19:43-0500 Systolic blood pressure 125 mm[Hg] Antonio Lenard [facility] 10-13-2023 18:29-0500 Diastolic blood pressure 89 mm[Hg] Bashir Evaristo [facility] 10-13-2023 18:29-0500 Heart rate 71 /min Bashir Evaristo [facility] 10-13-2023 18:29-0500 Mean blood pressure 107 mm[Hg] Bashir Evaristo [facility] 10-13-2023 18:29-0500 Respiratory rate 18 /min Bashir Evaristo [facility] 10-13-2023 18:29-0500 SaO2% (BldA) [Mass fraction] 97 % Bashir Evaristo [facility] 10-13-2023 18:29-0500 Systolic blood pressure 143 mm[Hg] Bashir Loera [facility] 10-13-2023 15:52-0500 Body temperature 98.24 [degF] Bashir Loera [facility] 10-13-2023 15:52-0500 Diastolic blood pressure 91 mm[Hg] Bashir Loera [facility] 10-13-2023 15:52-0500 Heart rate 88 /min Bashir Loera [facility] 10-13-2023 15:52-0500 Respiratory rate 18 /min Bashir Loera [facility] 10-13-2023 15:52-0500 SaO2% (BldA) [Mass fraction] 96 % Bashir Loera [facility] 10-13-2023 15:52-0500 Systolic blood pressure 158 mm[Hg] Bashir Loera [facility] 03-30-2023 10:59-0400 Body height 149.9 cm Verónica Duarte [employer] Work Phone: [facility] 03-30-2023 10:59-0400 Body weight 58.97 kg Verónicaminerva Duarte PA-C Work Phone: [facility] 01-31-2023 11:00-0400 Heart rate 89 /min Eren Ramires [facility] 01-31-2023 11:00-0400 Respiratory rate 16 /min Erne Ramires [facility] 01-31-2023 10:04-0400 Hourly Rounding Eren Ramires [facility] 01-31-2023 10:04-0400 Promise to Return Eren Keyla [facility] 01-31-2023 10:03-0400 Diastolic blood pressure 83 mm[Hg] Eren Keyla [facility] 01-31-2023 10:03-0400 Heart rate 91 /min Eren Keyla [facility] 01-31-2023 10:03-0400 Mean blood pressure 98 mm[Hg] Eren Keyla [facility] 01-31-2023 10:03-0400 Respiratory rate 20 /min Eren Keyla [facility] 01-31-2023 10:03-0400 SaO2% (BldA) [Mass fraction] 99 % Eren Keyla [facility] 01-31-2023 10:03-0400 Systolic blood pressure 127 mm[Hg] Eren Keyla [facility] 01-31-2023 09:40-0400 Body temperature 98.24 [degF] Eren Keyla [facility] 01-31-2023 09:40-0400 Diastolic blood pressure 86 mm[Hg] Eren Keyla [facility] 01-31-2023 09:40-0400 Heart rate 94 /min Eren Keyla [facility] 01-31-2023 09:40-0400 Hourly Rounding Eren Keyla [facility] 01-31-2023 09:40-0400 Promise to Return Erne Keyla [facility] 01-31-2023 09:40-0400 Respiratory rate 18 /min Eren Keyla [facility] 01-31-2023 09:40-0400 SaO2% (BldA) [Mass fraction] 98 % Eren Keyla [facility] 01-31-2023 09:40-0400 Systolic blood pressure 133 mm[Hg] Eren Ramires [facility] 11-12-2022 17:25-0500 Hourly Rounding Nate Gavin [facility] 11-12-2022 17:25-0500 Promise to Return Nate Gavin [facility] 11-12-2022 16:58-0500 Heart rate 70 /min Nate Brown [facility] 11-12-2022 16:58-0500 SaO2% (BldA) [Mass fraction] 97 % Nate Brown [facility] 11-12-2022 16:57-0500 Body temperature 97.52 [degF] Nate Brown [facility] 11-12-2022 16:57-0500 Diastolic blood pressure 85 mm[Hg] Nate Brown [facility] 11-12-2022 16:57-0500 Mean blood pressure 98 mm[Hg] Nate Brown [facility] 11-12-2022 16:57-0500 Systolic blood pressure 122 mm[Hg] Nate Brown [facility] 11-12-2022 16:25-0500 Hourly Rounding Nate Gavin [facility] 11-12-2022 16:25-0500 Promise to Return Nate Gavin [facility] 11-12-2022 16:00-0500 Respiratory rate 15 /min Nate Gavin [facility] 11-12-2022 15:16-0500 Hourly Rounding Nate Gavin [facility] 11-12-2022 15:16-0500 Promise to Return Nate Gavin [facility] 11-12-2022 11:45-0500 Body temperature 97.34 [degF] Nate Gavin [facility] 11-12-2022 11:45-0500 Diastolic blood pressure 85 mm[Hg] Nate Gavin [facility] 11-12-2022 11:45-0500 Heart rate 79 /min Nate Gavin [facility] 11-12-2022 11:45-0500 Mean blood pressure 93 mm[Hg] Nate Gavin [facility] 11-12-2022 11:45-0500 Respiratory rate 14 /min Nate Gavin [facility] 11-12-2022 11:45-0500 SaO2% (BldA) [Mass fraction] 96 % Nate Gavin [facility] 11-12-2022 11:45-0500 Systolic blood pressure 110 mm[Hg] Nate Gavin [facility] 11-12-2022 11:35-0500 Diastolic blood pressure 60 mm[Hg] Nate Gavin [facility] 11-12-2022 11:35-0500 Heart rate 61 /min Nate Gavin [facility] 11-12-2022 11:35-0500 Mean blood pressure 71 mm[Hg] Nate Gavin [facility] 11-12-2022 11:35-0500 Respiratory rate 16 /min Nate Gavin [facility] 11-12-2022 11:35-0500 Systolic blood pressure 92 mm[Hg] Nate Gavin [facility] 11-12-2022 11:30-0500 Mean blood pressure 69 mm[Hg] Nate Gavin [facility] 11-12-2022 11:30-0500 Respiratory rate 18 /min Nate Gavin [facility] 11-12-2022 11:20-0500 Body temperature 97.34 [degF] Nate Gavin [facility] 11-12-2022 11:15-0500 Respiratory rate 11 /min Nate Gavin [facility] 11-12-2022 11:10-0500 Respiratory rate 13 /min Nate Gavin [facility] 11-12-2022 07:01-0500 Body temperature 96.8 [degF] Nate Gavin [facility] 11-12-2022 07:01-0500 Heart rate 73 /min Nate Gavin [facility] 11-12-2022 06:46-0500 Body temperature 96.8 [degF] Nate Gavin [facility] 11-12-2022 06:46-0500 Heart rate 69 /min Nate Gavin [facility] 07-28-2022 10:58-0400 Body height 149.9 cm Ronan Cabello MD Work Phone: [facility] 07-28-2022 10:58-0400 Body temperature 97.81 [degF] Ronan Cabello MD Work Phone: [facility] 07-28-2022 10:58-0400 Body weight 57.15 kg Ronan Cabello MD Work Phone: [facility] 07-28-2022 10:58-0400 Diastolic blood pressure 89 mm[Hg] Ronan Cabello MD Work Phone: [facility] 07-28-2022 10:58-0400 Heart rate 90 /min Ronan Cabello MD Work Phone: [facility] 07-28-2022 10:58-0400 Respiratory rate 12 /min Ronan Cabello MD Work Phone: [facility] 07-28-2022 10:58-0400 Systolic blood pressure 125 mm[Hg] Ronan Cabello MD Work Phone: [facility] 05-04-2022 14:00-0400 Body height 152.4 cm Gale Vasquez Other [employer] Other 05-04-2022 14:00-0400 Body mass index (BMI) [Ratio] 25.97 kg/m2 Gale Vasquez Other [employer] Other 05-04-2022 14:00-0400 Body weight 60.33 kg Gale Vasquez Other [employer] Other 05-04-2022 14:00-0400 Diastolic blood pressure 86 mm[Hg] Gale Vasquze Other [employer] Other 05-04-2022 14:00-0400 Respiratory rate 20 /min Gale Vasquez Other [employer] Other 05-04-2022 14:00-0400 Systolic blood pressure 130 mm[Hg] Gale Vasquez Other [employer] Other 03-31-2022 12:03-0400 Body temperature 98.06 [degF] [facility] 03-31-2022 12:03-0400 Diastolic blood pressure 89 mm[Hg] [facility] 03-31-2022 12:03-0400 Heart rate 109 /min [facility] 03-31-2022 12:03-0400 Respiratory rate 18 /min [facility] 03-31-2022 12:03-0400 SaO2% (BldA) [Mass fraction] 100 % [facility] 03-31-2022 12:03-0400 Systolic blood pressure 155 mm[Hg] [facility] 01-01-2022 19:52-0400 Diastolic blood pressure 77 mm[Hg] Kofi Samuel [facility] 01-01-2022 19:52-0400 Heart rate 97 /min Kofi Samuel [facility] 01-01-2022 19:52-0400 Respiratory rate 18 /min Kofi Samuel [facility] 01-01-2022 19:52-0400 SaO2% (BldA) [Mass fraction] 97 % Kofi Samuel [facility] 01-01-2022 19:52-0400 Systolic blood pressure 113 mm[Hg] Kofi Samuel [facility] 01-01-2022 16:50-0400 Body temperature 98.42 [degF] Kofi Samuel [facility] 01-01-2022 16:50-0400 Diastolic blood pressure 88 mm[Hg] Kofi Samuel [facility] 01-01-2022 16:50-0400 Heart rate 126 /min Kofi Samuel [facility] 01-01-2022 16:50-0400 Respiratory rate 18 /min Kofi Samuel [facility] 01-01-2022 16:50-0400 SaO2% (BldA) [Mass fraction] 97 % Kofi Samuel [facility] 01-01-2022 16:50-0400 Systolic blood pressure 153 mm[Hg] Kofi Samuel [facility] Encounters Encounter Date Encounter Type Care Provider Facility Start: 11-26-2023 End: 11-26-2023 Emergency department patient visit Antonio Weinberg Facility:[facility] Start: 11-26-2023 End: 11-26-2023 Emergency department patient visit Antonio Weinberg [facility] Start: 11-24-2023 End: 11-24-2023 ambulatory [facility] Start: 11-24-2023 End: 11-24-2023 Encounter for preprocedural cardiovascular examination [facility] Start: 11-24-2023 Encounter for preprocedural cardiovascular examination [facility] Start: 10-18-2023 ambulatory Jaspreet Cortez Facility:[facility] Start: 10-17-2023 End: 10-17-2023 ambulatory GRACY MEDINA Not Available Start: 10-13-2023 End: 10-13-2023 Emergency department patient visit Bashir Loera Facility:[facility] Start: 10-13-2023 End: 10-13-2023 Emergency department patient visit Bashir Loera [facility] Start: 10-13-2023 End: 10-13-2023 ambulatory DAVID LEON Not Available Start: 08-30-2023 End: 08-31-2023 ambulatory DAVID LEON Facility:[facility] Start: 08-30-2023 End: 08-30-2023 Patient encounter procedure DAVID LEON [facility] Start: 08-29-2023 End: 08-29-2023 ambulatory DAVID LEON Not Available Start: 05-31-2023 End: 06-01-2023 ambulatory Gracy Medina Facility:[facility] Start: 05-31-2023 End: 05-31-2023 Patient encounter procedure Gracy Medina [facility] Start: 05-11-2023 Telephone encounter Sharita greenberg MD Work Phone: [facility] [place] Comment on above: Schedule Surgery Patient Question (Of fering patient surgical date.) Start: 04-14-2023 End: 04-14-2023 ambulatory BETH ESTESKALLIE [facility] Start: 04-10-2023 End: 04-10-2023 ambulatory GRACY MEDINA Facility:[facility] Start: 04-10-2023 End: 04-10-2023 Patient encounter procedure Sharita Myers MD Work Phone: [facility] Comment on above: 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) (Primary Dx) Start: 04-07-2023 End: 04-07-2023 Emergency department patient visit Elzbieta Cantrell Facility:[facility] Start: 03-30-2023 End: 03-30-2023 [facility] Start: 03-30-2023 End: 03-30-2023 Patient encounter procedure Verónica Duarte PA-C Work Phone: Orthopaedics Comment on above: 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) (Primary Dx); Incomplete tear of right rotator cuff, unspecified whether traumatic; Biceps tendonitis on right Start: 03-27-2023 End: 03-27-2023 ambulatory SELF Facility:[facility] Start: 03-27-2023 End: 03-27-2023 Patient encounter procedure Aureliano Vann DPM Work Phone: Podiatry Comment on above: 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, subsequent encounter (Primary Dx); Osteoporosis, unspecified osteoporosis type, unspecified pathological fracture presence; PAD (peripheral artery disease) (HCC); Allodynia; Nicotine use disorder, F17.2 Start: 03-27-2023 End: 03-27-2023 Subsequent hospital visit by physician [facility] Comment on above: Pain [R52] Start: 03-08-2023 Orders Only No One (Historical) Ref erring Physician Comment on above: Pain (Primary Dx) Start: 02-22-2023 ambulatory BENRARDA CORTES Facility: 1 Start: 02-06-2023 End: 02-07-2023 ambulatory Nate Gavin Facility:[facility] Start: 02-06-2023 End: 02-06-2023 Patient encounter procedure Nate Gavin [facility] Start: 01-31-2023 End: 01-31-2023 Emergency department patient visit Eren Ramires Facility:[facility] Start: 01-31-2023 End: 01-31-2023 Emergency department patient visit Eren Ramires [facility] Start: 01-11-2023 End: 01-18-2023 ambulatory UNKNOWN PROVIDER Facility:[facility] Start: 12-13-2022 End: 12-13-2022 ambulatory Sadiq Wilson Other [employer] Other Start: 12-13-2022 Telephone encounter [facility] Start: 11-15-2022 End: 11-16-[address] TK LEVI . Facility: Start: 11-12-2022 End: 11-12-2022 Observation Nate Gavin [facility] Start: 08-02-2022 End: 08-02-[address] WILL BENITEZ . Facility: Start: 07-28-2022 End: 07-29-2022 ambulatory GRACY MEDINA Facility:[facility] Start: 07-28-2022 End: 07-28-2022 Patient encounter procedure Ronan Cabello MD Work Phone: General Surgery Comment on above: Incisional hernia, w ithout obstruction or gangrene (Primary Dx) Start: 05-17-[address] GAUS LEON . Faci lity:[facility] Start: 05-11-2022 End: 05-12-2022 ambulatory GALE Lj NOLASCOJAY Facility:[facility] Start: 05-04-2022 End: 05-04-2022 ambulatory Gale Vasquez Other [employer] Other Start: 05-04-2022 Office outpatient vi sit 25 minutes Gale Trajay [facility] Start: 04-18-2022 End: 04-27-2022 ambulatory BRAYAN MEDINA Facility:[facility] Start: 03-31-2022 End: 03-31-2022 Emergency department patient visit Gloria Medinamacey [facility] Start: 03-24-2022 End: 03-24-2022 Patient encounter procedure Gracy M Carol [facility] Start: 03-16-2022 End: 03-17-2022 ambulatory BRAYAN MEDINA Facility:[facility] Start: 01-01-2022 End: 01-01-2022 Emergency department patient visit Kofi Castellano [facility] Start: 03-29-2018 End: 03-30-2018 Ambulatory DEFAULT PHYSICIAN Facility:[facility] Procedures Date Procedure Procedure Detail Performing [...] Author Start: 04-18-2024 DIABETES SCREEN DIABETES SCREEN [facility] Start: 05-26-2023 Influenza vaccination [facility] Start: 09-25-2022 [facility] Start: 05-26-2022 Influenza vaccination INFLUENZA (#1) [facility] Start: 09-25-2021 [facility]ION [facility] Start: 04-05-2021 COVID-19 VACCINE (3 - Booster for Pfizer series) COVID-19 VACCINE (3 - Booster for Pfizer series) [facility] Start: 04-05-2021 COVID-19 VACCINE (3 - Pfizer series) COVID-19 VACCINE (3 - Pfizer series) [facility] Start: 08-06-2020 PNEUMOCOCCAL (2 - PCV) PNEUMOCOCCAL (2 - PCV) [facility] Start: 2019 COLOGUARD (FIT-DNA) COLOGUARD (FIT-D NA) [facility] Start: 2019 Colonoscopy COLONOSCOPY [facility] Start: 2019 COLORECTAL CANCER SCREENING COLORECTAL CANCER SCREENING [facility] Start: [address] COLONOGRAPHY [facility] Start: 2019 FECAL OCCULT BLOOD FECAL OCCULT BLOO D [facility] Start: 2019 LIPID SCREEN LIPID SCREEN [facility] Start: 2019 SIGMOIDOSCOPY SIGMOIDOSCOPY [facility] Start: 2014 Mammography MAMMOGRAM [facility] Start: 2004 HPV TESTING HPV TESTING [facility] Start: 1995 PAP TESTING PAP TESTING [facility] Start: 1993 Urine microalbumin profile DTAP,TDAP,TD (1 - Tdap) [facility] Start: 1974 HEPATITIS B (1 of 3 - 3-dose series) HEPATITIS B (1 of 3 - 3-dose series) [facility] End: 03-27-2024 [facility] Vascular Lab Routine PAD (peripheral artery disease) (HCC) 1 Occurrences starting 03/27/2023 until 03/27/2024 [facility] Work Phone: Comment on above: 1 Occurrences starti ng 03/27/2023 until 03/27/2024 End: 04-06-2024 XR ANKLE GENERAL 3V AP/LAT/OBL LEFT XR ANKLE GENERAL 3V AP/LAT/OBL LEFT Radiology Routine Pain 1 Occurrences starting 03/08/2023 until 04/06/2024 [facility] Work Phone: Comment on above: 1 Occurrences starti ng 03/08/2023 until 04/06/2024 End: 05-09-2024 XR SHOULDER GENERAL 3V OR MORE AP/TRUE AP/OTHER RIGHT XR SHOULDER GENERAL 3V OR MORE AP/TRUE AP/OTHER RIGHT Radiology Routine 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) 1 Occurrences starting 04/10/2023 until 05/09/2024 [facility] Work Phone: Comment on above: 1 Occurrences starti ng 04/10/2023 until 05/09/2024 XR SHOULDER GENERAL 3V OR MORE AP/TRUE AP/OTHER RIGHT XR SHOULDER GENERAL 3V OR MORE AP/TRUE AP/OTHER RIGHT Radiology Routine 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) 04/10/2023 12:[address] [facility] Work Phone: [facility] Immunizations Immunization Date Immunization Notes Care Provider [facility] 02-08-2021 COVID-19 original vaccine, age 12+ yr, monovalent (PFIZER-BIONTECH - PURPLE TOP) Ronan Cabello MD Work Phone: [facility] 01-18-2021 COVID-19 original vaccine, age 12+ yr, monovalent (PFIZER-BIONTECH - PURPLE TOP) Ronan Cabello MD Work Phone: [facility] 08-06-2019 pneumococcal polysaccharide vaccine, 23 valent Ronan Cabello MD Work Phone: [facility] 06-10-2019 seasonal influenza, intradermal, preservative free Ronan Cabello MD Work Phone: [facility] 06-25-2015 influenza virus vacc ine, unspecified formulation Ronan Cabello MD Work Phone: [facility] 06-12-2015 influenza, seasonal, injectable Ronan Cabello MD Work Phone: [facility] Payers Date Payer Category Payer Self-pay 2021 [place] [id number] 2021-Present [phone] [address] [place] [address] Medicaid [id number] 2015 Medicare MEDICARE MEDICAR E A AND B [id number] 2015-Present [phone] [address] [address] [place] [address] Medicare [id number] 2003 Private Health Insurance [id number] 1974 Unknown [id number] 1974 Unknown [id number] 93 1974 Unknown [id number] 93 1974 Unknown [id number] 93 1974 Unknown [id number] 93 1974 Unknown [id number] 93 1974 Unknown [id number] 93 1974 Unknown [id number] 93 1974 Unknown [id number] 259 1975 Unknown [id number] 2.16.840.1.898022.3.579.2.1 259 1974 Unknown [id number] 2.16.840.1.285659.3.579.2.1 259 1974 Unknown [id number] 2.16.840.1.005813.3.579.2.7 27 1974 Unknown [id number] 2.16.840.1.102787.3.579.2.7 27 1974 Unknown [id number] 2.16.840.1.400253.3.579.2.7 27 1974 Unknown [id number] 2.16.840.1.023554.3.579.2.7 27 1974 Unknown [id number] 2.16.840.1.387306.3.579.2.7 27 1974 Unknown [id number] 2.16.840.1.197005.3.579.2.7 27 1960 Medicaid [id number] 2.16.840.1.661320.19 1960 Medicaid [id number] 1960 Medicare [id number] 2.16.840.1.823440.19 Unknown Unknown [id number] 2.16.840.1.697373.3.579.2.5 31 Unknown [id number] 2.16.840.1.365142.3.579.2.5 31 Social History Date Type Detail Facility Start: 01-01-2022 Tobacco smoking status Heavy t obacco smoker (finding) [facility] Start: 03-27-2023 End: 03-30-2023 Sex Assigned At Female [facility] Start: 05-08-2018 End: 03-30-2023 Tobacco smoking status NHIS Occasional tobacco smoker [facility] Start: 05-08-2018 End: 03-30-2023 Tobacco use and exposure Smokeless tobacco non-user [facility] Start: 1975 Sex Assigned At Not on file [facility] Start: 07-18-2022 End: 07-28-2022 Exposure to SARS-CoV-2 (event) Not sure [facility] Start: 03-27-2023 End: 03-30-2023 History of Social function [facility] National Score (1-100), lower number is lower risk 87 [facility] Medical Equipment Procedure Code Equipment Code Equipment Origin al Text Equipment Identifier Dates Mesh Prolene Polypropylene 6x4in Surgical Patch Soft Flat Sterile Hernia - [id number] Start: 10-21-2015 ANKLE FRACTURE O RIF [...] 11-12-2022 ANKLE FRACTURE O RIF Brown DO, Ntae A 11/12/22 Unknown Ankle L FDA Start: [...] Assessment Result Facility 11-26-2023 Functional Status N/A [facility] 10-13-2023 Functional Status N/A [facility] 01-31-2023 Functional Status N/A [facility] 11-12-2022 Functional Status N/A [facility] 11-12-2022 Functional Status [facility] 03-31-2022 Functional Status N/A [facility] Clinical Notes 01-01-2022 to 11-26-2023 Note Date & Type Note Facility 11-26-2023 Hospital Discharg e instructions Patient Education 11/26/2023 20:23:06 Contusion, Bfju-yj-Pyog Contusion A contusion is a deep bruise. [...] sitting or lying down. General instructions Take yaoj-rot-penwohz and prescription medicines only as told by [...] also called RICE. You may be given fwva-vsj-rxsufll medicines for pain. Contact a doctor if [...] provider. Document Revised: 07/07/2022 Document Reviewed: 07/07/2022 [employer] Patient Education 2022 tradeNOW. Follow Up Care 11/26/2023 19:41:00 With:Gracy Medina MD Address: [address] [place] [address]- When:11/29/2023 [facility] 11-26-2023 Evaluation + Plan note Extrac angela from: Title:ED Note Author:Jessica Bush PA-C. Date :11/26/23 1. Contusion of toe, left (S 90.122A: Contusion of left lesser toe(s) without damage to nail, initial encounter) Orders: XR Foot 3+ Views Left [facility]03-01-2024 NoteHypertension is uncontrolled Continue toprol 100 mg daily, and will add lisinopril 5 mg daily and will repeat BMP in about 1 week after starting. Please notify office for any dry persistent coughUnMer[facility]03-01-2024 NoteContinue toprol 100 mg daily SVT stable currentlyUnMer[facility] Health [facility]03-01-2024 NotePatient here for surgery clearance prior to [...] vertigo. All other systems reviewed and are negative.[facility] 11-24-2023 NoteUTP CARDIOLOGY PROGRESS NOTE HPI: [...] Risk 3.9 % 30-day risk of , VT, or cardiac arrest From a cardiac perspective pt may proceed with ankle surgery, she is a low risk for a low risk procedure. Please monitor hemodynamics carefully and prevent any major fluid shifts. SVT (supraventricular tachycardia) (CMS/HCC) Continue toprol 100 mg daily SVT stable currently (more content not included)...[facility]03-01-2024 NoteRCRI=0???points Class I Risk 3.9???% 30-day risk of , VT, or cardiac arrest From a cardiac perspective pt may proceed with ankle surgery, she is a low risk for a low risk procedure. Please monitor hemodynamics carefully and prevent any major fluid shifts.[facility]01-19-2024 Hospital Discharge instructions Patient Education 10/13/2023 18:55:44 Abdominal Pain, Adult, Dfzk-dz-Mtje Abdominal Pain, Adult Many things can cause belly (abdominal) pain. Most times, belly pain is not dangerous. Many cases of belly pain can be watched and treated at home. Sometimes, though, belly pain is serious. Your doctor will try to find the cause of your belly pain. Follow these instructions at home: Medicines Take fapg-fhr-rovhngw and prescription medicines only as told by [...] your belly pain for any changes. Take hkrj-ryd-dbsllco and prescription medicines only as told by [...] provider. Document Revised: 01/20/2020 Document Reviewed: 01/20/2020 [employer] Patient Education 2022 tradeNOW. 10/13/2023 18:55:44 Constipation, Adult Constipation, Adult Constipation [...] as fried or sweet foods. These include turkmen fries, hamburgers, cookies, candies, and soda. Drink enough fluid to keep your urine pale yellow. General instructions Exercise regularly or as told by your health care provider. Try to do 150 minutes of moderate exercise each week. Use the bathroom when you have the urge to go. Do not hold it in. Take hytx-yte-banxbtd and prescription medicines only as told by [...] to keep your urine pale yellow. Take ptzh-fka-wmkztaj and prescription medicines only as told by your health care provider. This includes any fiber supplements. This information is not intended to replace advice given to you by your health care provider. Make sure you discuss any questions you have with your health care provider. Document Revised: 07/29/2020 Document Reviewed: 07/29/2020 [employer] Patient Education 2022 tradeNOW. Follow Up Care 10/13/2023 15:41:06 With:Gracy Medina Address: [place] [place] [address] [facility]) When:10/16/2023 18:37:35 Comments:Follow-up with your primary care provider in 3 to 5 days. If symptoms worsen, do not improve, or new symptoms arise please report back to emergency department for further evaluation. [facility]12-06-2023 Evaluation + Plan note Diagnostic Tests Pending * Clostridium difficile by PCR 08/30/23 [facility]08-17-2023 Miscellaneous Notes* Telephone Encounter - Marcie Chou [...] calling her back today. [facility] Miscellaneous Notes* Telephone Encounter - Vinita Crabtree - 05/11/2023 10:34 AM EDT Left VM and sent Trusteert message to patient to see if she wants to schedule shoulder surgery with Dr. Myers on 05/18. Waiting for call back documented in this encounterCl[facility]07-21-2023 NoteUTP CARDIOLOGY PROGRESS NOTE HPI: Nathaniel Marcial [...] understanding -Follow-up in cardiology clinic [facility] Guevara [facility]2023 NotePatient here for 6 mo follow up SVT, palpitations, and DIAZ. She did not see another department director or have PFT's that Gracia ordered in [...] vertigo. All other systems reviewed and are negative.[facility] 04-10-2023 NoteHNO ID: [id number] Author: Sharita Myers MD Service: ? Author [...] As you know she is a 47-year-old ifwo-vppw-gxbhhuxn female with complaints in her shoulder that [...] strength with resisted ex (more content not included)...[facility]07-17-2023 NoteHNO ID: [id number] Author: RT Aleida(R) Service: Radiology Author Type: [...] BY: RT Slim(R) April 10, 2023 12:25 PMEn[facility]07-17-2023 History of Present illness Narrative* Sharita Myers [...] As you know she is a 47-year-old xgui-jwtp-ipypylsb female with complaints in her shoulder that [...] TIME: 1:48 PM PAGER: documented in this encounterCl[facility]07-06-2023 NoteHNO ID: [id number] Author: Corry Conroy Service: ? Author Type: [...] Signature: Corry Conroy March 30, 2023 2:00 [facility]07-06-2023 NotePatient Outreach (NETNAV) NATHANIEL MARCIAL ([id number]) 1975 F Date Time Provider Department 03/30/23 [...] DEPRESSION ASSESSMENT Never done Navigation Signature: Corry Carlos Conroy March 30, 2023 2:00 PM Allergies [...] gangr*07/08/2021 Encounter Status:Closed by CORRY LIN on 03/30/23[facility]07-[facility] History of Present illness Narrative* Corry Conroy [...] 30, 2023 2:00 PM documented in this encounterClerm[facility]07-06-2023 NoteHNO ID: [id number] Author: Verónica Duarte PA-C Service: ? Author Type: Physician It Infrastructure Architect Type: Progress Notes Filed: 03/30/2023 12:43 PM [...] seen Dr. Nate Gavin with [facility] in [place] and ordered a MRI of her shoulder [...] belly press test. Positive speeds test. Positive Harris's test. Positive impingement signs. Positive Neer sign. Neurovascular intact distally with 2+ radial pulses bilaterally. Last XR Shoulder - Impression Only No resulted procedures found. X-rays right shoulder 01/19/23: AVN right hum (more content not included)... [facility]07-06-2023 Instructions* Patient Instructions* Verónica Duarte PA-C - 03/30/2023 11:38 AM EDT [address]. [phone] ([place]) PT: [phone] documented in this encounterClermont [facility] Hospital07-06-2023 History of Present illness Narrative* Verónica Duarte [...] seen Dr. Nate Gavin with [facility] in [place] and ordereda MRI of her shoulder from [...] belly press test. Positive speeds test. Positive Harris's test. Positive impingement signs. Positive Neer sign. [...] R glenohumeral Informed Consent Consent Obtained: Verbal [place] Protocol A moment to CARE was completed. [...] information obtained and documented by the physician pest controller assistant. I examined the patient and evaluated all available films and pertinent documents. We discussed the case and I agree withthe plans as outlined in this note. SIGNATURE: Verónica Duarte PA-C PATIENT NAME: Nathaniel Marcial DATE: March 30, 2023 TIME: 11:13 AM documented in this encounterClermont [facility] Hospital07-03-2023 NoteHNO ID: [id number] Author: Aureliano Vann DPM Service: ? Author [...] with the patient. - (more content not included)...[facility]07-03-2023 Instructions* Patient Instructions* Aureliano Vann DPM - 03/27/2023 1:47 PM EDT Please schedule PVR (blood flow) [phone] documented in this encounterClermont [facility] Hospital07-03-2023 NoteHNO ID: [id number] Author: Jevon Lemons Service: ? Author Type: Bobbin Marker Type: Progress Notes Filed: 03/27/2023 12:28 PM [...] BY: Jevon Lemons March 27, 2023 12:28 [facility]07-03-2023 History of Present illness Narrative* Aureliano Vann [...] Nathaniel Marcial : 1975 To Department of [employer] Public [employer] Registration Division The above [...] contact them, they can be reached at [phone]. For Brock appointments: [phone]. Order Specific Question: Does consulting provider have [...] 2023 TIME: 12:58 PM documented in this encounterClermont [facility]07-03-2023 History of Present illness Narrative* Jevon Lemons [...] 27, 2023 12:28 PM documented in this encounterClerm[facility]05-09-2023 Hospital Discharge instructions Patient Education 01/31/2023 11:16:35 [...] or salas your foot. General instructions Take shgv-swa-oxhzgyv and prescription medicines only as told by [...] provider. Document Revised: 01/01/2021 Document Reviewed: 01/01/2021 [employer] Patient Education 2022 tradeNOW. Follow Up Care 01/31/2023 09:38:16 With:Nate Gavin Address: [address] [place] [address]- Business (1) When:02/03/2023 11:08:08 With:Gracy Medina Address: [address] [place] [address]- Business (1) When:02/03/2023 11:08:03 [facility]03-21-2023 Evaluation note* Encounter Date Diagnosis Assessment Notes Treatment Notes Treatment Clinical Notes Nov, Abdominal pain (ICD-10 - R10.9) [facility] Other 02-18-2023 Evaluation + Plan noteExtracted from: [...] and coordinating care. Extracted from: Title:ED Note Author:Silas Lorenzo, Gloria Moran te:11/12/22 1. Trimalleolar fracture of left ankle [...] NPO Diet XR Ankle 3+ Views Left [facility]02-18-2023 Hospital Discharge instructions Patient Education 11/12/2022 09:42:18 [place] - Ankle Fracture Post Op (Custom) (Custom) [place], [place] [facility] DISCHARGE INSTRUCTIONS: ANKLE FRACTURE [...] office evaluation. Nate Gavin, DO [facility] [address] [place] [address] [phone] Reviewed: 12-31 Follow Up Care 11/12/2022 06:46:16 With:Nate Gavin Address: [address] [place], [place] [address], [place] [address] Business (1) When:2 weeks [facility]11-03-2022 NoteHNO ID: [id number] Author: Ronan Cabello MD Service: ? Author [...] our notes. Patient consented for study? [facility]-2022 NoteHNO ID: [id number] Author: Donna Donis Ms Service: ? Author Type: ? Type: Progress Notes Filed: 07/28/2022 1:17 PM Note Text: GENERAL SURGERY CLINIC NOTE Nathaniel Marcial [id number] HPI: Nathaniel Marcial is a 46 year [...] not recall but is following with a auto technician in 1 week. O: BP 125/89 Pulse [...] how to proceed. Donna Donis Ms Jul 28[facility] History of Present illness Narrative* Ronan Cabello [...] consented for study? Not applicable * Donna Encisoir Ms - 07/28/2022 11:24 AM EDT GENERAL SURGERY CLINIC NOTE Nathaniel Marcial [id number] HPI: Nathaniel Marcial is a 46 year [...] not recall but is following with a auto technician in 1 week. O: BP 125/89 Pulse [...] Ms Jul 28, 2022 documented in this encounterClermont [facility]11-03-2022 Nurse Note* Dalton Lee - 07/28/2022 [...] Temperature: No Drains: No documented in this encounterClermont [facility] Hospital08-10-2022 Evaluation note* Encounter Date Diagnosis Assessment Notes Treatment Notes Treatment Clinical Notes Apr, Irritable bowel syndrome with diarrhea (ICD-10 - K58.0) Apr, Abdominal pain (ICD-10 - R10.9) Apr, Diarrhea (ICD-10 - R19.7) Apr, Bloating (ICD-10 - R14.0) [facility] Other 07-07-2022 Hospital Discharge instructions Patient Education [...] exercise. Managing pain, stiffness, and swelling Take dtey-bjf-xybbrev and prescription medicines only as told by [...] 09/11/2006 Document Revised: 08/24/2018 Document Reviewed: 10/11/2017 [employer] Patient Education 2020 tradeNOW. Follow Up Care 03/31/2022 12:02:20 With:Gracy Medina MD Address: [address] [place] [address]- When:04/03/2022 [facility]07-07-2022 Evaluation + Plan noteExtracted from: [...] w/CAD if perf and 3D Robert 04/20/22 [facility]04-09-2022 Hospital Discharge instructions Patient Education [...] is stable enough for you to begin abwzj-uy-jwwfap exercises. You may also be prescribed pain [...] provider says that it is safe. Do mnzgq-nx-rhtege exercises only as told by your health [...] quitting, ask your health care provider. Take sdxf-oku-qfrezzt and prescription medicines only as told by your health care provider. Ask your health care provider if the medicine prescribed to you can cause constipation. You may need to take steps to prevent or treat constipation, such as: ?Drink enough fluid to keep your urine pale yellow. ?Take oadc-cxl-jonuzgu or prescription medicines. ?Eat foods that are [...] 12/18/2001 Document Revised: 05/13/2019 Document Reviewed: 05/13/2019 [employer] Patient Education 2020 tradeNOW. Follow Up Care 01/01/2022 16:44:18 With:Gale Truong Address: [address] [place] [address] Business (1) When:01/04/2022 19:33:35 Comments:Wear the sling when you are up and around you can take it off at night when you are sleeping. Please follow-up with orthopedic surgery for further evaluation management. Please return to the ED for any new or worsening symptoms. With:Gracy Medina Address: [address] [place] [address]- Business (1) When:Within 3 Day(s) [facility]04-09-2022 Evaluation + Plan noteExtracted from: [...] 19:11:00 EDT, 01/01/22 19:11:00 EDT Sling Apply [facility] note Future Appointments Appointment Date:02/06/2023 09:00:00 AM Scheduled Provider: Location:FT.MRI Appointment Type:MRI Humerus/Shoulder (FT) Future Scheduled Tests Radiology* MRI Shoulder w/o Contrast Right 02/06/23 [facility]* Diagnosis Incisional hernia, without obstruction or gangrene- Primary Incisional hernia without mention of obstruction or gangrene documented [facility] Pain- Primary Generalized pain documented in this encounter [facility]* Diagnosis 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, subsequent encounter- Primary Osteoporosis, unspecified osteoporosis type, unspecified pathological fracture presence PAD (peripheral artery disease) ([facility]) Peripheral vascular disease, unspecified Allodynia Disturbance of skin sensation Nicotine use disorder, F17.2 Tobacco use disorder documented in this encounter [facility]* Diagnosis Pain Generalized pain documented in this encounter [facility]* Diagnosis 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)- Primary Incomplete tear of right rotator cuff, unspecified whether traumatic Biceps tendonitis on right documented in this encounter [facility]* Diagnosis 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)- Primary [facility] N[facility]ative - Reported* Type Description Date Medical History bipolar Medical History asthma Medical History GERD Medical History IBS Surgical History C section-2X Surgical History x 2 Surgical History laparoscopy Surgical History appendectomy Surgical History hernia-10X Surgical History multiple hernia repairs Surgical History hysterectomy Surgical History back Surgical History back surgery Hospitalization History see above [facility] Other Hospital course Narrative No data available for this section [facility] Dis[facility] instructions No data available for this section [facility] CenterProgress note No data available for this section [facility] CenterReason for referral (narrative)* Diagnostic Procedure Only (Routine) - Authorized Specialty Diagnoses / Procedures Referred By Елена t Referred To Contact XR IMAGING Diagnoses Pain Procedures XR ANKLE GENERAL 3V AP/LAT/OBL LEFT RADEX ANKLE COMPLETE MINIMUM 3 VIEWS Aureliano Vann DPM [address] [place] [address] Xr Imaging Referral ID Status Reason Start Date Expiration Date Visits Requested Visits Authorized [id number] Authorized Auto-Generat ed Referral 03/08/2023 04/06/2024 1 1 [facility] for referral (narrative)* Outpatient Procedure (Routine) - Pending Review Specialty Diagnoses / Procedures Referred By Елена t Referred To Contact [facility] Diagnoses PAD (peripheral artery disease) (HCC) Procedures PVR LEG UNL VAS LAB NON-INVASIVE PHYSIOLOGIC STUDY EXTREMITY 3 LEVLS Aureliano Vann DPM [address] [place] [address] [facility] [address] [address] Referral ID Status Reason Start Date Expiration Date Visits Requested Visits Authorized [id number] Pending Review Auto-Generat ed Referral 03/27/2023 03/26/2024 1 1 * Consult, Test, Treat (Routine) - Authorized Specialty Diagnoses / Procedures Referred By Contac t Referred To Contact Pain Management Diagnoses 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, subsequent encounter Allodynia Procedures CONSULT TO PAIN MGT OFFICE/OUTPATIENT NEW HIGH MDM 60-74 MINUTES Aureliano Vann DPM [address] [place] [address] Referral ID Status Reason Start Date Expiration Date Visits Requested Visits Authorized [id number] Authorized PCP Requested Referral 03/27/2023 03/26/2024 1 1 [facility] for referral (narrative)* Diagnostic Procedure Only (Routine) - Closed Specialty Diagnoses / Procedures Referred By Contac t Referred To Contact XR IMAGING Diagnoses Pain Procedures XR ANKLE GENERAL 3V AP/LAT/OBL LEFT RADEX ANKLE COMPLETE MINIMUM 3 VIEWS Aureliano Vann DPM [address] [place] [id number] Xr Imaging Referral ID Status Reason Start Date Expiration Date V isits Requested Visits Authorized [id number] Closed Auto-Generate d Referral 03/08/2023 04/06/2024 1 1 [facility] for referral (narrative)* Diagnostic Procedure Only (Routine) - Closed Specialty Diagnoses / Procedures Referred By Contac t Referred To Contact XR IMAGING Diagnoses 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) Procedures XR SHOULDER GENERAL 3V OR MORE AP/TRUE AP/OTHER RIGHT RADEX SHOULDER COMPLETE MINIMUM 2 VIEWS Sharita Myers MD [address] [place] [address] Xr Imaging Referral ID Status Reason Start Date Expiration Date V isits Requested Visits Authorized [id number] Closed Auto-Generate d Referral 04/10/2023 05/09/2024 1 1 T [facility] for visit Narrative* Diagnostic Procedure Only (Routine) - Closed Specialty Diagnoses / Procedures Referred By Contac t Referred To Contact XR IMAGING Diagnoses Pain Procedures XR ANKLE GENERAL 3V AP/LAT/OBL LEFT RADEX ANKLE COMPLETE MINIMUM 3 VIEWS Aureliano Vann DPM [address] [place] [address] Xr Imaging Referral ID Status Reason Start Date Expiration Date V isits Requested Visits Authorized [id number] Closed Auto-Generate d Referral 03/08/2023 04/06/2024 1 1 [facility] Summary Purpose Family History No Family [...] MINS Verónica Duarte PA-C [address] [place] [address] [facility] [place] [address] [place] [id number] Referral ID Status Reason Start Date Expiration Date Visits Requested Visits Authorized [id number] Authorized PCP Requested Referral Auto-Generate d Referral [...] and content) DATE CREATED AUTHOR 03/30/2018 [facility] DATE CREATED AUTHOR AUTHOR'S ORGANIZ ATION 01/20/2023 [facility] DATE CREATED AUTHOR AUTHOR'S ORGANIZ ATION 03/03/2023 [facility] DATE CREATED AUTHOR AUTHOR'S ORGANIZ ATION 04/14/2023 [facility] DATE CREATED AUTHOR AUTHOR'S ORGANIZ ATION 05/18/2023 [facility] DATE CREATED AUTHOR AUTHOR'S ORGANIZ ATION 10/18/2023 [facility] EPIC DATE CREATED AUTHOR AUTHOR'S ORGANIZ ATION 11/26/[address] [facility] DATE CREATED AUTHOR AUTHOR'S ORGANIZ ATION 11/28/2023 [facility] DATE CREATED AUTHOR AUTHOR'S ORGANIZ ATION 12/17/2023 [facility] Care Team (unrecognized sect ion and content) Family Living Educator Relationship Specialty Start Date End Date Gracy Medina MD [address] [place] [address] PCP - General Family Medicine 04/11/21 Family Living Educator Relationship Specialty Start Date End Date Gracy Medina MD [address] [place] [address] PCP - General Family Medicine 04/11/21 Gracy Medina MD [address] [place] [address] Referring Family Medicine 03/07/23 Family Living Educator Relationship Specialty Start Date End Date Gracy Medina MD [address] [place] [address] PCP - General Family Medicine 04/11/21 Gracy Medina MD [address] [place] [address] Referring Family Medicine 03/07/23 Family Living Educator Relationship Specialty Start Date End Date Gracy Medina MD [address] [place] [address] PCP - General Family Medicine 04/11/21 Gracy Medina MD [address] [place] [address] Referring Family Medicine 03/07/23 Family Living Educator Relationship Specialty Start Date End Date Gracy Medina MD [address] [place] [id number] PCP - General Family Medicine 04/11/21 Gracy Medina MD [address] [place] [address] Referring Family Medicine 03/07/23 Family Living Educator Relationship Specialty Start Date End Date Gracy Medina MD [address] [place] [address] PCP - General Family Medicine 04/11/21 Gracy Medina MD [address] [place] [address] Referring Family Medicine 03/07/23 Family Living Educator Relationship Specialty Start Date End Date Gracy Medina MD [address] [place] [address] PCP - General Family Medicine 04/11/21 Gracy Medina MD [address] [place] [address] Referring Family Medicine 03/07/23 REASON FOR VISIT (unrecogniz ed section and content) Reason Comments Established Patient Reason Comments New Trimalleolar fractur e 11/12 ORIF Lj Almendarez in February with repeat injury to left ankle, cellulitis at that time with admission to local hospital. Pain Trimalleolar fractur e 11/12 ORIF L Tanesha in February with repeat injury to left ankle, cellulitis at that time with admission to local hospital. Fracture Trimalleolar fractur e 11/12 ORIF L Tanesha in February with repeat injury to left [...] or prosecute any alcohol or drug abuse patient.[facility] the event this information is protected by the Federal Confidentiality of Alcohol and Drug Abuse Patient Records regulations: The Federal rules restrict any use of the information to criminally investigate or prosecute any alcohol or drug abuse patient.[facility] the event this information is protected by the Federal Confidentiality of Alcohol and Drug Abuse Patient Records regulations: The Federal rules restrict any use of the information to criminally investigate or prosecute any alcohol or drug abuse patient.[facility] the event this information is protected by the Federal Confidentiality of Alcohol and Drug Abuse Patient Records regulations: The Federal rules restrict any use of the information to criminally investigate or prosecute any alcohol or drug abuse patient.[facility] the event this information is protected by the Federal Confidentiality of Alcohol and Drug Abuse Patient Records regulations: The Federal rules restrict any use of the information to criminally investigate or prosecute any alcohol or drug abuse patient.[facility] the event this information is protected by the Federal Confidentiality of Alcohol and Drug Abuse Patient Records regulations: The Federal rules restrict any use of the information to criminally investigate or prosecute any alcohol or drug abuse patient.[facility] the event this information is protected by the Federal Confidentiality of Alcohol and Drug Abuse Patient Records regulations: The Federal rules restrict any use of the information to criminally investigate or prosecute any alcohol or drug abuse patient.[facility] the event this information is protected by the Federal Confidentiality of Alcohol and Drug Abuse Patient Records regulations: The Federal rules restrict any use of the information to criminally investigate or prosecute any alcohol or drug abuse patient.[facility] the event this information is protected by the Federal Confidentiality of Alcohol and Drug Abuse Patient Records regulations: The Federal rules restrict any use of the information to criminally investigate or prosecute any alcohol or drug abuse patient.[facility] FOR RECORDS PERTAINING TO PATIENTS WHO [...] BE BASED ON THE PRIMARY CLINICAL RECORDS. [facility]. provides no warranty or guarantee of the accuracy or completeness of information in this document.
[2023-12-21 06:24] LABS: Hematocrit 40.6 % (36.0-48.0); Hemoglobin 13.9 g/dL (12.0-16.0); Mean Corpuscular HGB Conc 34.2 g/dL (29.9-35.2); Mean Corpuscular Volume 105.2 fL (81.0-99.0); Mean Platelet Volume 8.9 fL (9.5-13.5); Platelet Count 323 10^3/uL (150-450); Red Blood Count 3.86 10^6/uL (4.20-5.40); Red Cell Distribution Width 14.9 % (11.0-15.0); White Blood Count 11.6 10^3/uL (4.0-11.0)
[2023-12-21 06:38] LABS: Glucometer 104 mg/dL (74-106)
[2023-12-21] MEDS: LACTATED RINGER'S SOLUTION 1,000 ML 50 ML IV ×2 (06:58→09:46)
[2023-12-21] MEDS: CEFAZOLIN SODIUM/DEXTROSE,ISO 2 GM/50 ML PIGGYBACK IV (07:50)
--- NOTE | 2023-12-21 07:55 | PC.NURSE ---
PATIENT POSITIONED AND 2MG OF VERSED GIVEN. TIME OUT PERFORMED AT 0736 DR SCHROEDER CLEANSED THE AREA BEHIND THE KNEE [id number]. PROCEDURE BEGAN WITH NEEDLE INSERTION AND PHOTO WAS TAKEN AT 0742 MEDS INJECTED DIRECTED BY PHYSICIAN. PATIENT TOLERATED PROCEDURE WELL . PROCEDURE COMPLETED AT 0743.
--- NOTE | 2023-12-21 08:45 | P.ORON_ITS ---
Brief Operative Note Date of procedure: 12/21/23 Pre-op diagnosis general: left ankle impingement, retained hardware, ankle fra cture sequela, possible instability Post-op diagnosis: other (left ankle impingement, retained hardware, ankle fracture sequela) Procedure: PROCEDURE(S) PERFORMED: left ankle arthroscopy, removal of deep implanted hardware, stress examination under intraoperative fluoroscopy INDICATION FOR PROCEDURE: Patient is a 48-year-old female well known to my practice who underwent ORIF for bimalleolar ankle fracture which is performed at an outside facility. Recently she presented to me relating to pain primarily on the medial malleolus but also on the lateral malleolus. CT scan was obtained and confirmed adequate fracture healing. She also is having impingement type symptoms in her anterior ankle and there was concern for latent ligamentous instability. Due to her failure to respond to nonsurgical care which included bracing, OTC pain medicine, shoe and activity modification she wished to proceed with surgical management. INTRAOPERATIVE FINDINGS: Intraoperative stress examination revealed stable collateral ankle ligaments as well as syndesmosis. Chronic synovitis noted on ankle arthroscopy. Mild degenerative changes to the tibiotalar joint but no osteochondral defect was noted. Hardware is slightly prominent over medial and lateral malleolus but was stable. PROCEDURE IN DETAIL: Patient was identified in pre op and consent was reviewed. Correct side and site were identified and marked. Pre-op antibiotics were started. Patient was brought to OR suite and place on table in a supine position. General anesthesia was administered. Thigh tourniquet applied. Under fluoroscopy the ankle was stressed in varus, valgus, anterior drawer and syndesmotic testing and was stable in all planes. Operative extremity was prepped and draped in usual sterile fashion and place in a well-padded leg mcfadden. Formal time-out was performed. The intermediate dorsal cutaneous nerve was identified and marked. The ankle was insufflated with 15 cc of sterile saline and the foot, ankle and calf were exsanguinated and tourniquet inflated. Standard anterior medial ankle portal was created with a scalpel. Blunt dissection was performed then the trochar and cannula were inserted with the ankle held in maximum dorsiflexion. Inspection of the ankle demonstrated significant acute and chronic synovitis with impingement. A needle was inserted into the anterior lateral ankle in standard safe zone and was identified then removed. A second 1 cm incision was created over anterior lateral ankle followed by blunt dissection to ensure the intermediate dorsal cutaneous nerve was protected. A 3.5 mm aggressive shaver was inserted into this portal and used to resect all impingement and synovitic tissue. Portal incisions were closed with nylon suture. incision was placed over the medial malleolus and a combination sharp and blunt dissection gained access to the medial malleolus. Guidewires were placed through the medial malleolar screws which were then removed with appropriate screwdriver. The screw holes were then thoroughly curetted until healthy bleeding bone. Surgical site was irrigated with copious saline. Lateral malleolar incision was placed utilizing scalpel and comminution sharp blunt dissection gained access to the plate and screw construct transfixing the lateral malleolus. The screws from the plate were removed with appropriate screwdriver and the plate was easily removed. the screw holes were then thoroughly curetted until healthy bleeding bone was noted. The interfragmentary screw was left in place. Fractures were healed. Surgical sites were irrigated with copious saline and incisions were closed in layers. The tourniquet was deflated with a prompt hyperemic response. A dry sterile dressing was applied. Patient tolerated the procedure and anesthesia well was transferred to recovery room with vital signs stable and brisk capillary refill to the toes. a cam boot will be applied in the recovery room. POSTOPERATIVE PLAN: Discharge home under family's care Post op instructions provided verbally and written prescription(s) were placed in chart weightbearing as tolerated in cam boot for three weeks or until incisions are healed Follow-up in 1 week Implants: none Anesthesia: regional and General-LMA Surgeon: Ej Walsh Electro Mechanical Designer: Timmy Kumar Estimated blood loss (mL): 10 Pathology: none sent Condition: stable Disposition: PACU
[2023-12-21] MEDS: LIDOCAINE HCL 1% 100 MG/10 ML MDV INJ (09:01)
[2023-12-21] MEDS: BUPIVACAINE HCL 0.5% PF 50 MG/10 ML VIAL 20 ML INJ (09:01)
[2023-12-21] MEDS: HYDROMORPHONE HCL 0.5 MG/0.5 ML SYRINGE IV ×3 (10:16→11:03)
--- NOTE | 2023-12-21 10:19 | XR_ITS ---
The [address] [address] Patient Name: NATHANIEL MARCIAL MRN: [id number] date: 1975 Sex: F Assigned Patient Location: [facility] Current Patient Location: Accession/Order Number: [id number] Exam Date: 12/21/2023 10:15 Report Date: 12/22/2023 07:00 At the request of: KAREN HER Procedure: XR ankle LT min 3V PROCEDURE: XR ankle LT min 3V HISTORY: postop xr pacu COMPARISON: XR ankle left 10/04/2023 FINDINGS: BONES:Postop removal of medial malleolus screws and distal fibula plate and screws. No fracture, dislocation, bone lesion. Osteopenia throughout the ankle and proximal foot. SOFT TISSUES:Anterior soft tissue swelling and lateral subcutaneous free air secondary to recent surgery. EFFUSION:None visible. OTHER: Negative. XR/XR ankle LT min 3V IMPRESSION: 1. Postoperative changes detailed above. 2. Osteopenia likely from decreased use. Electronically authenticated by: WILIAN CONTRERAS Date: 12/22/2023 07:00
[2023-12-21 10:26] LABS: Glucometer 126 mg/dL (74-106)
[2023-12-21] MEDS: ALBUTEROL SULFATE 2.5 MG/3 ML VIAL NEB IH (10:35)
[2023-12-21] MEDS: OXYCODONE HCL/ACETAMINOPHEN 5MG/325MG 1 TAB PO (10:43)
== END 2023-12-21 12:50 | disposition home or self-care (01) ==
PROVIDERS: PCP Student in an Organized Health Care Education/Training Program; Visit Provider Podiatrist Foot & Ankle Surgery
PROC: (CPT 1464; principal; 2023-12-21 07:30)
DX: S82.852S Displaced trimalleolar fracture of left lower leg, sequela (principal); M25.372 Other instability, left ankle; Z96.9 Presence of functional implant, unspecified; I25.10 Atherosclerotic heart disease of native coronary artery without angina pectoris; M25.872 Other specified joint disorders, left ankle and foot; M65.9 Synovitis and tenosynovitis, unspecified; M85.872 Other specified disorders of bone density and structure, left ankle and foot; M19.90 Unspecified osteoarthritis, unspecified site; G47.00 Insomnia, unspecified; F43.10 Post-traumatic stress disorder, unspecified; F32.A Depression, unspecified; Z86.16 Personal history of COVID-19; F41.0 Panic disorder [episodic paroxysmal anxiety]; K21.9 Gastro-esophageal reflux disease without esophagitis; J45.909 Unspecified asthma, uncomplicated; I10 Essential (primary) hypertension; Z90.710 Acquired absence of both cervix and uterus; F17.210 Nicotine dependence, cigarettes, uncomplicated
CPT/HCPCS: 01464; 01480; 20680; 29898; 36415; 64445; 73610; 76000; 82948; 85025; 94640; J1094; J1170; J2704

== ENCOUNTER 2023-12-22 00:33 | Emergency (ER) | payer MEDICARE, MEDICAID, SELFPAY ==
[2023-12-22 00:44] VITALS: BP 120/84; PULSE 114; TEMP 36.6; O2SAT 95; BMI 25.4
--- OUTSIDE RECORDS SUMMARY | 2023-12-22 00:50 | XMS_ITS | CCD ---
Author Organization [facility] Care Team Providers Care Compounding Pharmacy Technician Name Role Phone PHYSICIAN, DEFAULT Unavailable Unavailable PHYSICIAN, DEFAULT Unavailable Unavailable Gracy Medina Primary Care Physician [phone] Gale Vasquez Unavailable Gracy Medina MD Primary Care Provider [phone] Sadiq Wilson Unavailable PROVIDER, UNKNOWN Attending Unavailable [...] PAY ., DR JAY Consulting Unavailable CAROL, [place] Primary Care Unavailable KRISTINE ., FLORENCIA Consulting Unavailable SEBASTIAN, BERNARDA Admitting Unavailable BERNARDA CORTES Attending Unavailable CAROL, BRAYAN Primary Care Unavailable CAROLYN ., DR AGUS Katz Attending Unavailable CAROLYN ., DR AGUS Katz Admitting Unavailable CAROL, BRAYAN Primary Care Unavailable GALE VASQUEZ JR Admitting Unavailable GALE VASQUEZ JR Attending Unavailable GALE VASQUEZ JR Consulting Unavailable CAROL, [place] Primary Care Unavailable CAROL, BRAYAN Admitting Unavailable CAROL, BRAYAN Attending Unavailable CAROL, [place] Primary Care Unavailable Gracy Medina MD Primary [...] Bacitracin; Translations: [bacitracin] Drug Allergy [address] [facility] (20 sources) Vancomycin; Translations: [vancomycin] Drug Allergy [address] [facility] (10 sources) Tape 1 Drug allergy rash [facility] Comment on above: can use paper tape (10 sources) lamoTRIgine; Translations: [LAMOTRIGINE] Drug Allergy 2 Mental Status Change, Unknown (qualifier value) [facility] (1 source) Bacitracin Drug Allergy 3 [facility] Repository (2 sources) lamoTRIgine; Translations: [LaMICtal] Drug Allergy [facility] Rep[facility] (1 source) Vancomycin Drug Allergy [facility] Repository (2 sources) Clindamycin; Translations: [clindamycin] Drug Allergy Unknown (qualifier value) [facility] (1 source) Adhesive Tape; Translations: [Tape] Propensity to adverse reactions (disorder) [facility] Repository (1 source) Bacitracin Drug Allergy 3 [facility] Repository (1 source) lamoTRIgine Drug Allergy 3 [facility] Repository (1 source) Vancomycin Drug Allergy [address] [place] [address] Repository Medications Current Medications Medication Drug Class(es) Dates Sig (Normalized) Sig (Original) acetaminophen 325 mg / HYDROcodone bitartrate 5 mg oral tablet (3 sources) Opioid Agonist Start: 01-01-2022 [place] 325 mg-5 mg oral tablet 1 tab(s), Oral, q6hr for pain, 12 tab(s), Refill(s) 0 Start Date: 01/01/22 Status: Ordered acetaminophen 325 mg / oxyCODONE hydrochloride 5 mg oral tablet (7 sources) Opioid Agonist Start: 11-12-2022 Percocet 5 mg-325 mg oral tablet See Instructions, 40 tab(s), Refill(s) 0, 1-2 tab(s) Oral q4hr, [facility]/pharmacy #[id number], 149.9, cm, 11/12/22 6:57:00 [...] day(s), # 60 tab(s), Refills(s) 0, Pharmacy: [facility]/pharmacy #[id number], 149.9, cm, 11/12/22 6:57:00 [...] day(s), # 56 cap(s), Refills(s) 0, Pharmacy: [facility]/pharmacy #[id number], 150, cm, 10/13/23 15:54:00 EST, Height/Length Dosing, 60, kg, 10/13/23 15:54:00 EST, Weight Dosing Start Date: 10/13/23 Stop Date: 10/27/23 Status: Ordered Start: 11-11-2012 dicyclomine (B ENTYL) 20 mg tablet Take 20 mg by mouth. 0 11/11/2012 Active Start: 11-11-2012 take 1 tablet by [facility] four times daily as needed for pain [...] constipation, # 20 cap(s), Refills(s) 0, Pharmacy: [facility]/pharmacy #[id number], 149.9, cm, 11/12/22 6:57:00 EST, Height/Length Dosing, 65.4, kg, 11/12/22 6:57:00 EST, Weight Dosing Start Date: 11/12/22 Status: Ordered Comment on above: Take 1 capsule by [facility] twice daily. dronabinol 5 mg oral [...] milk, # 50 tab(s), Refills(s) 0, Pharmacy: [facility]/pharmacy #[id number], 149.9, cm, 11/12/22 6:57:00 [...] 2 Episodic Other aftercare (1 source) Other usp (current) drug therapy; Translations: [OTH JAIL CURRENT DRUG THERAPY] Onset: 3 Episodic Other [...] days 11/29/[address] [place] [address]- Additional Instructions: Patient Education Contusion, Dahm-sr-Gogp Attestation I performed a substantive part of [...] abnormality Read By: Jessica Bush PA-C Normal [facility] Comment on above: Result Comment: Elec [...] mGy = na DAP = na Normal [facility] Consent for Treatmenton Consent for Treatment [id number] #1.00TIFF Normal [facility] Discharge Instructionson Discharge Instructions [id number] #1.00TIFF Normal [facility] ED Clinical Summaryon 2023 ED Clinical Summary [address] [address] ED Clinical Summary Person Information Name: NATHANIEL MARCIAL Kenyatta/[facility]_[place] Age: 48 Years : 1975 Sex: Female Language: Burkinan PCP: Gracy Medina MD Marital Status: Phone: [phone] Visit Id: Visit Reason: Toe injury - [...] 11/26/2023 20:27:28 11/26/2023 20:27:28 11/26/2023 20:27:28 ADDRESS: [address] [place] [address] DR RACHELE Doran [facility] [phone] PHYS DOC NOTES: MEDICAL INFORMATION: Prescriptions Given: [...] at bedtime. PATIENT EDUCATION INFORMATION: Instructions: Contusion, Brpj-cl-Wqez Follow up: With: Address: When: Carol DESHPANDE, Gracy [facility] [place] [place] [address] In 3 days 11/29/2023 DIAGNOSIS: 1:Contusion of toe, left Normal [facility] ED Patient Education Noteon 11-26-2023 ED [...] or lying down. General instructions ? Take ghpm-afm-guqvizr and prescription medicines only as told by [...] also called RICE. You may be given fkoy-iok-vieiehe medicines for pain. ? Contact a doctor [...] provider. Document Revised: 07/07/2022 Document Reviewed: 07/07/2022 [employer] Patient Education ? 2022 [employer] Normal [facility] ED Patient Summaryon 024 ED Patient Summary [place] [id number] Patient Discharge Instructions Person Information Name: NATHANIEL MARCIAL Age: 48 Years Arrival Date: 11/26/2023 19:37:37 Discharge Diagnosis: 1:Contusion of toe, left Primary Care Physician: Gracy Medina MD Provider Information Primary Provider: Antonio Weinberg DO Advanced Crime Victim Specialist:None The exam and treatment you received in the Emergency Department were for an urgent problem and are not intended as complete care. It is important that you follow up with a doctor, nurse practitioner, or physician?s resident programs assistant for ongoing care. If your symptoms [...] Carol DESHPANDE, Gracy [place] [place] [address] In 3 days 11/29/2023 In the event that this physician does not participate in your insurance network, please consult with your insurance company to find a nearby participating provider. Patient Education Materials: Contusion, Bydf-ai-Wfji A MESSAGE TO ALL PATIENTS REGARDING OPIOIDS PRESCRIPTION OPIOIDS: WHAT YOU NEED TO KNOW Prescription opioids can be used to help relieve wpzpilqb-mv-vlxmme pain and are often prescribed following a [...] be struggling with addiction, tell your health care nurse rn and ask for guidance or call [facility] National Helpline at 6-434-298-PTMO. f Source: Department of Health and (more content not included)... Normal [facility] 37on 11-24-2023 37 Please notify office for any dry persistent cough after starting lisinopril Have blood drawn in about 1 week to check kidney function and electrolytes. Normal [facility] Office Visiton 11-24-2023 Follow-up visit [id number] Nathaniel Marcial 1975 F Date Provider Department Center 11/24/2023 [facility] Family History Problem Relation Age of Onset Heart failure Mother Heart failure Father Transient ischemic attack Father Family Status - Relation Status Age at Mother Father Level of Service:69594 [place] OFFICE/OUTPATIENT ESTABLISHED MOD MDM 30 MIN Normal [facility] ED Note-Physicianon 10-14-19 ED Note-Physician Basic Information [...] and Complexity of Problems Differential Diagnosis: [] [facility] Data External documents reviewed: [] My EKG [...] day(s), # 56 cap(s), Refills(s) 0, Pharmacy: [facility]/pharmacy #[id number], 150, cm, 10/13/23 15:54:00 [...] UA With Cult Reflex Medications Administered Given etnp18LGU [F] 1000 mg + GenDil 100 mL, IV Piggyback NS 1000 ml Bolus, 1000 mL, IV potassium bicarbonate 25 mEq Tab (K-LYTE), 50 mEq, Oral Disposition Plan Patient Dis (more content not included)... Normal [facility] Comment on above: Result Comment: Elec tronically Signed By: El Mullen PA-C\.br\Date and Time Signed: 10/13/23 19:38 EST\.br\Electronically Co-Signed By: Bashir Loera DO\.br\Date and Time Co-Signed: 10/14/23 08:22 EST BMPon 10-13-2023 Anion gap [Moles/Vol] 13 mmol/L Normal 6-16 [facility] Comment on above: Performed By: #### 2 086541, 6002608, 3401933, 68940281, 3785677 ####[facility] [address] [place] [address] BUN/Creat Ratio 13 No Units Normal 10-20 [facility] Comment on above: Performed By: #### 2 910071, 1230825, 1235935, 22712296, 5374634 ####[facility] [address] [place] [address] Calcium [Mass/Vol] 8.7 mg/dL Low 8.9-11.1 [facility] Comment on above: Performed By: #### 2 088372, 5880092, 9963732, 71294356, 3662182 ####[facility] [address] [place] [address] Chloride [Moles/Vol] 104 mmol/L Normal 101-111 [facility] Comment on above: Performed By: #### 2 355770, 1621994, 7716796, 95472943, 4761508 ####[facility] [address] [place] [address] CO2 [Moles/Vol] 24 mmol/L Normal 21-31 [facility] Comment on above: Performed By: #### 2 649804, 2009919, 6251676, 45778259, 1735397 ####[facility] [address] [place] [address] Creatinine [Mass/Vol] 0.7 mg/dL Normal 0.5-1.3 [facility] Comment on above: Performed By: #### 2 087200, 9372407, 5817689, 05131251, 8785073 ####[facility] [address] [place] [address] Glucose [Mass/Vol] 89 mg/dL Normal 55-199 [facility] Comment on above: Performed By: #### 2 134797, 6103334, 4993259, 54599905, 1273891 ####[facility] [address] [place] [address] Potassium [Moles/Vol] 2.9 mmol/L Low 3.5-5.3 [facility] Comment on above: Performed By: #### 2 404774, 3854924, 8917027, 62598563, 2078557 ####[facility] [address] [place] [address] Sodium [Moles/Vol] 138 mmol/L Normal 135-145 [facility] Comment on above: Performed By: #### 2 559039, 6405793, 6021247, 74538427, 1777361 ####[facility] [address] [place] [address] Urea nitrogen [Mass/Vol] 9 mg/dL Normal 5-21 [facility] Comment on above: Performed By: #### 2 917299, 1089199, 8309382, 76528698, 3820320 ####[address] [address] CBC w/ Auto Diffon 4 Basophil Absolute 0.0 E9/L Normal 0.0-0.2 [facility] Comment on above: Performed By: #### 2 963965, 4399122, 6509218, 05432863, 5746649 ####[address] [address] Basophils/100 WBC (Bld) 0.5 % Normal 0.0-2.0 [facility] Comment on above: Performed By: #### 2 032133, 6245490, 0608856, 41888341, 7805216 ####[address] [address] Eos Absolute 0.0 E9/L Normal 0.0-0.5 [facility] Comment on above: Performed By: #### 2 988192, 9668331, 0296148, 49320367, 9030988 ####[address] [address] Eosinophils/100 WBC (Bld) 0.1 % Normal 0.0-8.0 [facility] Comment on above: Performed By: #### 2 687530, 9327964, 9679599, 70823040, 0488186 ####[address] [address] Erythrocyte distribution width (RBC) [Ratio] 16.1 % High 10.9-14.2 [facility] Comment on above: Performed By: #### 2 873844, 1906466, 9083183, 37022969, 8259474 ####[address] [address] Hematocrit (Bld) [Volume fraction] 46.0 % Normal 34.0-46.0 [facility] Comment on above: Performed By: #### 2 356694, 1627891, 9552035, 40045283, 7814083 ####[facility] [address] [place] [address] Hemoglobin (Bld) [Mass/Vol] 15.5 g/dL Normal 12.0-16.0 [facility] Comment on above: Performed By: #### 2 114700, 3619876, 3803920, 37590277, 8967122 ####[facility] [address] [place], [place] [address] Lymph Absolute 2.1 E9/L Normal 1.0-4.0 [facility] Comment on above: Performed By: #### 2 615966, 9087235, 7544479, 50906409, 1707219 ####[place] 4[address]657 Lymphocytes/100 WBC (Bld) 35.1 % Normal 14.0-50.0 [facility] Comment on above: Performed By: #### 2 722410, 1869310, 7994845, 85949994, 6923549 ####[facility] [address] [place] [address] MCH (RBC) [Entitic mass] 34.5 pg High 27.0-34.0 [facility] Comment on above: Performed By: #### 2 001691, 7897791, 4029973, 78412760, 5630518 ####[facility] [address] [place] [address] MCHC (RBC) [Mass/Vol] 33.4 g/dL Normal 31.4-36.0 [facility] Comment on above: Performed By: #### 2 548131, 4022967, 1639804, 59460910, 0554257 ####[address] [address] MCV (RBC) [Entitic vol] 103.1 fL High 80.0-100.0 [facility] Comment on above: Performed By: #### 2 584344, 5962410, 8965114, 69263571, 6971830 ####[facility] [address] [place] [address] Cedar Absolute 0.6 E9/L Normal 0.2-1.0 [facility] Comment on above: Performed By: #### 2 814946, 1080849, 2845033, 20972181, 1323609 ####[facility] [address] [place] [address] Monocytes/100 WBC (Bld) 9.5 % Normal 4.0-14.0 [facility] Comment on above: Performed By: #### 2 532416, 9257087, 7551414, 22924668, 8315688 ####[address] [address] Neutro Absolute 3.2 E9/L Normal 2.0-7.5 [facility] Comment on above: Performed By: #### 2 387281, 6644374, 1730299, 41526915, 5874850 ####[address] [address] Neutro Auto 54.8 % Normal 36.0-75.0 [facility] Comment on above: Performed By: #### 2 929559, 9816090, 1143161, 11368998, 3457435 ####[address] [address] Platelet 322.0 E9/L Normal 150.0-500.0 [facility] Comment on above: Performed By: #### 2 063205, 0623107, 9331227, 45652088, 2433573 ####[facility] [address] [place] [address] Platelet mean volume (Bld) [Entitic vol] 8.2 fL Normal 6.4-10.8 [facility] Comment on above: Performed By: #### 2 354963, 7999115, 3721515, 45546889, 8445136 ####[facility] [address] [place] [address] RBC 4.5 E12/L Normal 4.3-5.9 [facility] Comment on above: Performed By: #### 2 186964, 6314476, 4695241, 31331771, 6273531 ####[facility] [address] [place] [address] WBC 5.9 E9/L Normal 4.0-11.0 [facility] Comment on above: Performed By: #### 2 610604, 7518303, 8620257, 71137315, 7016726 ####[facility] [address] [place] [address] CHEMISTRYOrdered By: SYSTEM SYSTEM on 10-13-2023 Albumin [...] 300 Contrast amount in ml's: 100 Normal [facility] Consent for Treatmenton 09-25 Consent for Treatment [id number] #1.00TIFF Normal [facility] Discharge Instructionson Discharge Instructions [id number] #1.00TIFF Normal [facility] ED Clinical Summaryon 2023 ED Clinical Summary [place] [id number] ED Clinical Summary Person Information Name: NATHANIEL MARCIAL [place] Age: 47 Years : 1975 Sex: Female Language: Burkinan PCP: Gracy Medina MD Marital Status: Phone: [phone] Visit Id: Visit Reason: Constipation; LOWER ADB [...] 10/13/2023 18:55:43 10/13/2023 18:55:43 10/13/2023 18:55:43 ADDRESS: [address] [place] [address] DR [facility]FF[facility]Y [facility] [phone] PHYS DOC NOTES: MEDICAL INFORMATION: Prescriptions Given: Medications to Continue Taking That Have Changed [facility]/pharmacy #[id number], [address], [place] [id number], [phone] START: dicyclomine (Bentyl 10 mg Cap) 1 [...] PATIENT EDUCATION INFORMATION: Instructions: Abdominal Pain, Adult, Nxzw-wp-Cdaw; Constipation, Adult Follow up: With: Address: When: [place] [address] [place] [address] [place] (1N3TWORK In 3 days 10/16/2023 Comments: Follow-up with your primary care provider in 3 to 5 days. If symptoms worsen, do not improve, or new symptoms arise please report back to emergency department for further evaluation. DIAGNOSIS: Abdominal pain; Constipation; Hypokalemia Normal [facility] ED Patient Education Noteon 10-13-2023 ED [...] these instructions at home: Medicines ? Take sybc-knl-zbcgclz and prescription medicines only as told by [...] belly pain for any changes. ? Take gwyg-jbq-gauyapv and prescription medicines only as told by [...] provider. Document Revised: 01/20/2020 Document Reviewed: 01/20/2020 [employer] Patient Education ? 2022 [employer] Constipation, Adult Constipation is when a [...] as fried or sweet foods. These include upper sorbian fries, hamburgers, cookies, candies, and soda. ? Drink enough fluid to keep your urine pale yellow. General instructions ? Exercise regularly or as told by your health care provider. Try to do 150 minutes of moderate exercise each week. ? Use the bathroom when you have the urge to go. Do not hold it in. ? Take aely-xqa-jusfnkh and prescription medicines only as told by [...] keep your urine pale yellow. ? Take pllu-wfv-ktlahqn and prescription medicines only as told by your health care provider. This includes any fiber supplements. This information is not intended t (more content not included)... Normal [facility] ED Patient Summaryon 024 ED Patient Summary [address] [address] Patient Discharge Instructions Person Information Name: NATHANIEL MARCIAL Age: 47 Years Arrival Date: 10/13/2023 15:37:09 Discharge Diagnosis: Abdominal pain; Constipation; Hypokalemia Primary Care Physician: Gracy Medina MD Provider Information Primary Provider: Bashir Loera DO Advanced Crime Victim Specialist:None The exam and treatment you received in the Emergency Department were for an urgent problem and are not intended as complete care. It is important that you follow up with a doctor, nurse practitioner, or physician?s resident programs assistant for ongoing care. If your symptoms become worse or you do not improve as expected and you are unable to reach your usual health care provider, you should return to the Emergency Department. We are available 24 hours a day. NATHANIEL MARCIAL has been given the following list of patient education materials, prescriptions and follow-up instructions: Follow-up Instructions: With: Address: When: Gracy Median [place] [address] [facility] (1) In 3 days 10/16/2023 [...] provider. Patient Education Materials: Abdominal Pain, Adult, Tsnf-ve-Siki; Constipation, Adult A MESSAGE TO ALL PATIENTS REGARDING OPIOIDS PRESCRIPTION OPIOIDS: WHAT YOU NEED TO KNOW Prescription opioids can be used to help relieve dlzpslug-fy-peerdw pain and are often prescribed following a [...] learn about (more content not included)... Normal [facility] HEMATOLOGYOrdered By: SYSTEM SYSTEM on 10-13-2023 [...] High 80.0 - 100.0 fL Remisol Heme Cedar Absolute 0.6 E9/L Normal 0.2 - 1.0 [...] 10-13-2023 Albumin [Mass/Vol] 4.1 g/dL Normal 3.3-5.0 [facility] Comment on above: Performed By: #### 2 256524, 0813559, 3567621, 94777454, 2970008 ####[facility] [address] [place] [address] Albumin/Globulin [Mass ratio] 1.2 {ratio} Normal 1.1-2.2 [facility] Comment on above: Performed By: #### 2 402170, 8362244, 7686700, 70252904, 8353344 ####[facility] [address] [place] [address] Alk Phos 115 Int._Unit/L High 21-98 [facility] Comment on above: Performed By: #### 2 004899, 5136226, 5063593, 46591444, 0049264 ####[facility] [address] [place] [address] ALT 22 Int._Unit/L Normal 6-46 [facility] Comment on above: Performed By: #### 2 138585, 0171112, 0438190, 35360429, 2085887 ####[facility] [address] [place] [address] AST 17 Int._Unit/L Normal 5-43 [facility] Comment on above: Performed By: #### 2 368761, 9454685, 2361175, 12108756, 0558203 ####[facility] [address] [place] [address] Bili Direct 0.2 mg/dL Normal 0.0-0.4 [facility] Comment on above: Performed By: #### 2 545513, 4460281, 3330965, 66753830, 9230980 ####[facility] [address] [place] [address] Bili Indirect 0.4 mg/dL Normal 0.1-0.9 [facility] Comment on above: Performed By: #### 2 111263, 2004026, 7652840, 99004977, 1847892 ####[address] [address] Bili Total 0.6 mg/dL Normal 0.0-1.1 [facility] Comment on above: Performed By: #### 2 716807, 1769267, 4407817, 76134905, 7652269 ####[facility] [address] [place] [address] Globulin (S) [Mass/Vol] 3.3 g/dL Normal 1.4-4.0 [facility] Comment on above: Performed By: #### 2 667010, 6652997, 8200030, 45002189, 5870918 ####[place] [address] [place] [address] Protein [Mass/Vol] 7.4 g/dL Normal 6.0-7.8 [facility] Comment on above: Performed By: #### 2 523067, 1304829, 3636675, 30164711, 0907304 ####[place] [address] [place] [address] Lipase Levelon 10-13-2023 Lipase Lvl 11 unit/L Low 13-58 [facility] Comment on above: Performed By: #### 2 505958, 4892539, 3777925, 00625133, 2444479 ####[facility] [address] [place] [address] UA With Cult Reflexon 2023 Bacteria LM Ql (Urine sed) TRACE Normal Trace [facility] Comment on above: Performed By: #### 1 7604093 ####[address] [address] Bilirubin Ql (U) Negative Normal Negative [facility] Comment on above: Performed By: #### 1 6446355 ####[address] [address] Clarity (U) CLEAR Normal Clear [facility] Comment on above: Performed By: #### 1 7949173 ####[address] [address] Color (U) YELLOW Normal Yellow [facility] Comment on above: Performed By: #### 1 1510154 ####[address] [address] Epithelial cells.squamous LM.HPF (Urine sed) [#/Area] 0-2 Normal 0-2 [facility] Comment on above: Performed By: #### 1 0046433 ####[address] [address] Glucose Test strip (U) [Mass/Vol] Negative Normal Negative [facility] Comment on above: Performed By: #### 1 8472134 ####[address] [address] Hemoglobin Ql (U) TRACE Abnormal Negative [facility] Comment on above: Performed By: #### 1 9063706 ####[address] [address] Ketones (U) [Mass/Vol] Negative Normal Negative [facility] Comment on above: Performed By: #### 1 8562885 ####[address] [address] Costilla.plasma/Costilla .RBC (Bld) [Mass ratio] 0-3 Normal 0-3 [facility] Comment on above: Performed By: #### 1 5583334 ####[address] [address] Nitrite Ql (U) Negative Normal Negative [facility] Comment on above: Performed By: #### 1 5234357 ####[address] [address] pH (U) 6.5 [pH] Invalid Interpretation Code 5.0-9.0 [facility] Comment on above: Performed By: #### 1 1712471 ####[address] [address] Protein (U) [Mass/Vol] Negative Normal Negative [facility] Comment on above: Performed By: #### 1 8653569 ####[address] [address] Specific gravity (U) [Rel density] <=1.005 Invalid Interpretation Code 1.005-1.030 [facility] Comment on above: Performed By: #### 1 1033090 ####[address] [address] Type of Urine collection method Clean Catch Normal [facility] Comment on above: Performed By: #### 1 5810504 ####[address] [address] Urobilinogen Qn (U) 0.2 {Arturo'U}/dL Normal 0.0-1.0 [facility] Comment on above: Performed By: #### 1 [id number] ####[address] [address] WBC Auto Ql (U) Negative Normal Negative [facility] Comment on above: Performed By: #### 1 [id number] ####[address] [address] WBC LM.HPF (Urine sed) [#/Area] 0-5 Normal 0-5 [facility] Comment on above: Performed By: #### 1 [id number] ####[address] [address] URINALYSISOrdered By: Annette Porter on 10-13-2023 Bacteria [...] PM) Normal Negative [facility] UA Auto SS Costilla.plasma/[place]illa .RBC (Bld) [Mass ratio] 0-3 /HPF Normal [...] [facility] UA Auto SS Urobilinogen Qn (U) 0.4303814 {Arturo'U}/dL Normal 0.0 - 1.0 EU/dL [facility] UA Auto SS WBC Auto Ql (U) Negative (10/13/23 4:23 PM) Normal Negative [facility] UA Auto SS WBC LM.HPF (Urine sed) [#/Area] 0-5 /HPF Normal 0-5/HPF [facility] UA Auto SS eGFRon 01-19-2024 eGFR 106 mL/min/1.73 m2 Normal >=59 [facility] Comment on above: Order Comment: Order added by Discern Expert. Performed By: #### 2 [id number] ####[facility] [address] [place] [address] C. diff by PCRon 08-31-2023 Clostridium difficile by PCR Negative Normal Negative [facility] Comment on above: Result Comment: This test result should be correlated with clinical presentations and medical history by a healthcare provider to determine its clinical significance. Performed By: #### 4 [id number] ####[facility] [address] [place] [address] Consent for Treatmenton Consent for Treatment [id number] #1.00TIFF Normal [facility] Physician Orderon 08-30-2023 Physician Order [id number] 6#1.00TIFF Normal [facility] Consent for Treatmenton Consent for Treatment [id number] #1.00CD:127 Normal [facility] Physician Orderon 05-31-2023 Physician Order [id number] #1.00CD:127 Normal [facility] XR Foot 3+ Views Lefton XR [...] = na DAP = na Normal [facility] CNPNon 05-11-2023 CNPN Telephone (ORHSMN) NATHANIEL MARCIAL ([id number]) 1975 F Date Time Provider Department 05/11/23 [facility] your visit today, we recorded [...] Fully Assessed Reason for Visit: Patient Question [4359] Cmt: Offering patient surgical date. Prescriptions as [...] Status:Closed by MARCIE CHOU on 05/11/[address] [facility] Telephone (ORQ) NATHANIEL MARCIAL ([id number]) 1975 F Date Time Provider Department 05/11/23 SHARITA MYERS During your visit today, we recorded the following information about you: Tony Itzel Vinita 05/11/2023 10:35 AM Signed Left VM and sent Stadionaut message to patient to see if she [...] Status:Closed by VINITA CRABTREE on 05/11/23 Normal [facility] Office Visiton 04-14-2023 Follow-up visit [id number] Nathaniel Marcial 1975 F Date Provider Department Center 04/14/2023 3848-BETH GUEVARA EVERETTE Love Family History Problem Relation Age of Onset Heart failure Mother Heart failure Father Transient ischemic attack Father Family Status - Relation Status Age at Mother Father Level of Service:58436 [place] OFFICE/OUTPATIENT ESTABLISHED MOD [facility] 30-39 MIN Normal [facility] 04-11-2023 CNPN Telephone (PODITW) NATHANIEL MARCIAL ([id number]) 1975 F Date Time Provider Department 04/11/23 AURELIANO VANN PODITW During your visit today, we recorded the following information about you: Abi Montague 04/11/2023 12:06 PM Signed Patient states that [employer] is unable to send out bone stimulator due to incorrect verbiage in order. Please all Leigh Ann at [phone] to clarify Selina Villa 04/11/2023 1:21 PM [...] MA 04/12/2023 11:00 AM Signed Faxed to [phone] per below note. Thank you, Emilee Dubon MA Abi Montague 04/12/2023 1:29 PM Signed Leigh Ann calling back---everything was sent for the wrong ankle. Please call Leigh Ann at [phone] Aureliano Vann DPM 04/12/2023 2:51 PM Signed [...] office said we can contact her at [phone] with any questions. Please contact patient or [...] Patient scheduled for Podiatry on 05/30 at [facility] Allergies As of Date: 04/11/2023 Noted Allergy [...] 30 M (more content not included)... Normal [facility] CNOVon 04-10-2023 CNOV Office Visit (MORH) NATHANIEL MARCIAL ([id number]) 1975 F Date Time Provider Department 04/10/23 [...] As you know she is a 47-year-old izbc-vboi-ldczkxpc female with complaints in her shoulder that [...] rotation i (more content not included)... Normal [facility] XR SHLDR >/=3V AP/PIEDAD AP/OTH R [...] Collapse of the humeral head as described. Application Architect Manager: PSCB Transcribe Date/Time: Apr 13 2023 4:03P Dictated by : PAUL REED MD This examination was interpreted and the report reviewed and electronically signed by: PAUL REED MD on Apr 13 2023 4:04PM EST [id number] CN [facility] wo [facility] [place] [address] [place] [address] CT Scan Report Signed Patient: Nathaniel Marcial MR#: [id number] 51 : 1975 Acct:[id number] Age/Sex: 47 / F ADM Date: 04/07/23 Loc: ER Room: Type: [facility] ER Attending Dr: Copies to: LEE [...] Will May M.D.04/07/2023 1:18 PM Dictation Location: [place] [address] Transcribed By: [facility] 04/07/231317 Dictated By: Will May DO 04/07/231309 Signed By: 04/07/231317 [facility] CNOVon 03-30-2023 CNOV Office Visit (ORTHMN) NATHANIEL MARCIAL ([id number]) 1975 F Date Time Provider Department 03/30/23 10:40 AM VERÓNICA DUARTE ORTHMN During your visit today, we recorded [...] seen Dr. Nate Gavin with [facility] in [place] and ordered a MRI of her shoulder [...] belly press test. Positive speeds test. Positive Wahkiakum's test. Positive impingement signs (more content not included)... Normal [facility] CNOVon 03-27-2023 CNOV Office Visit (PODIMN) NATHANIEL MARCIAL ([id number]) 1975 F Date Time Provider Department 03/27/23 [...] Plan: - (more content not included)... Normal [facility] XR ANKLE 3V AP/LAT/OBL LTon [...] WHICH MAY RELATED TO DISUSE AND/OR HYPEREMIA. Application Architect Manager: PSCB Transcribe Date/Time: Mar 27 2023 12:44P Dictated by : KENDALL GUTIERREZ MD This examination was interpreted and the report reviewed and electronically signed by: KENDALL GUTIERREZ MD on Mar 27 2023 12:45PM EST [id number] Normal [facility] XR ANKLE GENERAL 3V AP/LAT/O BL LEFTon 03-27-2023 [facility] BD Bone Density DEXAon 02-06 BD [...] V. Transcribed by: CARISA Technologist: LYNNE Colvin [facility] Consent for Treatmenton 01-23 Consent for Treatment [id number] #1.00CD:127 Normal [facility] ED Note-Physicianon 02-06-20 ED Note-Physician Basic Information [...] Romaine In 3 days 02/03/2023 EDT [address] [place] [address]- Business (1) Additional Instructions: Gracy Medina In 3 days 02/03/2023 EDT [address] [place] [address]- [place] (1) Additional Instructions: Patient Education Foot Sprain Attestation Patient seen and evaluated by the physician resident programs assistant. Attending physician was present in the emergency department and supervised care. This visit was performed by both the physician and an APC. I performed all aspects of the MDM as documented. This report was transcribed using voice recognition software. Every effort was made to ensure accuracy, however, inadvertently computerized sap bpc architect mistakes may be present. Appropriate healthcare PPE [...] 01/01/2022 Current, Marijuana, (more content not included)... [facility] Comment on above: Result Comment: Elec tronically Signed By: Perry Osorio PA-C\.br\Date and Time Signed: 01/31/23 18:56 EDT\.br\Electronically Co-Signed By: Eren Ramires DO\.br\Date and Time Co-Signed: 02/05/23 07:11 EDT Physician Orderon 02-01-2023 Physician Order [id number] #1.00CD:127 [facility] Consent for Treatmenton Consent for Treatment [id number] #1.00CD:127 [facility] Discharge Instructionson Discharge Instructions [id number] 6#1.00CD:127 [facility] ED Clinical Summaryon 2022 ED Clinical Summary [place] [id number] ED Clinical Summary Person Information Name: NATHANIEL MARCIAL Kenyatta/[facility] Age: 47 Years : 1975 Sex: Female Language: Burkinan PCP: Gracy Medina MD Marital Status: Phone: [phone] Visit Id: Visit Reason: Foot pain-swelling; LEFT [...] 01/31/2023 11:16:35 01/31/2023 11:16:35 01/31/2023 11:16:35 ADDRESS: [facility] [place] [phone] PHYS DOC NOTES: MEDICAL INFORMATION: Prescriptions Given: [...] Follow up: With: Address: When: [place] [address] Business (1) In 3 days 02/03/2023 With: Address: When: [place] [place] [address] Business (1) In 3 days 02/03/2023 DIAGNOSIS: Foot sprain Normal [facility] ED Patient Education Noteon 01-31-2023 ED [...] on your foot. General instructions ? Take yuli-nmx-wcwxpvk and prescription medicines only as told by your health care provider. ? When you can walk without pain, wear supportive shoes t (more content not included)... Normal [facility] ED Patient Summaryon 023 ED Patient Summary [address] [address] Patient Discharge Instructions Person Information Name: NATHANIEL MARCIAL Age: 47 Years Arrival Date: 01/31/2023 09:35:54 Discharge Diagnosis: Foot sprain Primary Care Physician: Gracy Medina MD Provider Information Primary Provider: Eren Ramires DO Advanced Crime Victim Specialist:Perry Osorio PA-C The exam and treatment you received in the Emergency Department were for an urgent problem and are not intended as complete care. It is important that you follow up with a doctor, nurse practitioner, or physician?s resident programs assistant for ongoing care. If your symptoms become worse or you do not improve as expected and you are unable to reach your usual health care provider, you should return to the Emergency Department. We are available 24 hours a day. NATHANIEL MRACIAL has been given the following list of patient education materials, prescriptions and follow-up instructions: Follow-up Instructions: With: Address: When: Nate Gavin [address] [place] [address] [place] (1) In 3 days 02/03/2023 With: Address: When: [place] [address] Business (1) In 3 days 02/03/2023 In the event that this physician does not participate in your insurance network, please consult with your insurance company to find a nearby participating provider. Patient Education Materials: Foot Sprain A MESSAGE TO ALL PATIENTS REGARDING OPIOIDS PRESCRIPTION OPIOIDS: WHAT YOU NEED TO KNOW Prescription opioids can be used to help relieve ngzyezbv-au-yyatfg pain and are often prescribed following a [...] be struggling with addiction, tell your health care nurse rn a (more content not included)... Normal [facility] XR Foot 3+ Views Lefton 05-0 XR Foot 3+ Views Left Exam Date/Time: 01/31/2023 10:09 EDT Reason for Exam: Pain, Traumatic Report IMPRESSION: Diffusely decreased bone mineral density as discussed, which may relate to disuse. No distinct acute displaced fracture. EXAMINATION/TECHNIQU E: XR Foot 3+ Views Left HISTORY: History of recent ankle surgery. [place] popping sensation with pain and swelling along [...] mGy = na DAP = na Normal [facility] Physician Orderon 01-26-2023 Physician Order [id number] #1.00CD:127 Normal [facility] Progress Noteson 01-11-2023 Electrical Engineering Intern Authentication Interface Message Text EMERGENCY TRIAGE, TREAT AND TRANSPORT (ET3) DOCUMENTATION OF TELEHEALTH VISIT Date / Time: 01/11/2023514 Name: Nathaniel Marcial : 1975 SSN: [id number] EMS Agency: [facility] [x] Verbal consent obtained [] [...] Completed by: Jarred Rosado MD Normal [facility] CHEMISTRYOrdered By: SYSTEM SYSTEM on 11-12-2022 [...] 59 mL/min/1.73 m2 Normal >=59mL/min/1 .73 m2 [facility] Chem S Glucose [Mass/Vol] 97 mg/dL Normal 55 - 199 mg/dL [facility] Remisol Potassium [Moles/Vol] 4.0 mmol/L Normal 3.5 - 5.3 mmol/L [facility] Remisol Sodium [Moles/Vol] 134 mmol/L Low 135 - 145 mmol/L [facility] Remisol Urea nitrogen [Mass/Vol] 14 mg/dL Normal 5 - 21 mg/dL [facility] Remisol Urea nitrogen/Creatinine [Mass ratio] 14 mg/mg Normal 10 - 20 [facility] Remisol COAGULATIONOrdered By: Davnia Dai on 11-12-2022 aPTT Coag (PPP) [Time] [...] CNOV Office Visit (MARCO ANTONIO) MARCIALNATHANIEL Carrillo ([id number]) 1975 F Date Time Provider Department 07/28/22 [...] Signed GENERAL SURGERY CLINIC NOTE Nathaniel Marcial [id number] HPI: Nathaniel Marcial is a 46 year [...] not recall but is following with a outreach librarian in 1 week. O: BP 125/89 Pulse [...] Cellulitis [L03. (more content not included)... Normal [facility] OVA AND PARASITE EXAMINATION on 05-18-2022 Ova + Parasite Exam Final report Normal [facility] Comment on above: Result Comment: Thes e results were obtained using wet preparation(s) and trichrome stained smear. This test does not include testing for Cryptosporidium parvum, Cyclospora, or Microsporidia. Performed By: #### O VAPE #### [facility] [address] [place] [address] Dr. Jemima Paul Result 1 Comment Normal [facility] Comment on above: Result Comment: No o va, cysts, or parasites seen. . One negative specimen does not rule out the possibility of a parasitic infection. Performed By: #### O VAPE #### [facility] [address] [place] [address] Dr. Jemima Paul LACTOFERRIN FECAL QUANTon Lactoferrin, Fecal, Quant. <1.00 Normal 0.00-7.24 [facility] Comment on above: Result Comment: Re [...] (IBS). Performed By: #### L ACTFQ #### [facility] [address] [place] [address] Dr. Jemima Paul STOOL CULTUREon 05-16-2022 Campylobacter Culture Final report Normal [facility] Comment on above: Performed By: #### C XSTOOL #### [facility] [address] [place] [address] Dr. Jemima Paul E coli Shiga Toxin EIA Negative Normal Negative [facility] Comment on above: Performed By: #### C XSTOOL #### [facility] [address] [place] [address] Dr. Jemima Paul Result 1 Comment Normal [facility] Comment on above: Result Comment: No S almonella or Shigella recovered. Performed By: #### C XSTOOL #### [facility] [address] [place] [address] Dr. Jemima Paul Result Comment: No C ampylobacter species isolated. Salmonella/Shigella Screen Final report Normal [facility] Comment on above: Performed By: #### C XSTOOL #### [facility] [address] [place] [address] Dr. Jemima Paul C. DIFF PCRon 05-11-2022 C. DIFFICILE PCR Negative Normal NEGATIVE [facility] Comment on above: Performed By: #### C DIFPOC #### [facility] [address] [place] [address] Dr. Jemima Paul CBC AUTO DIFFon 03-17-2022 BASO # 0.1 103/ul Normal 0.0-0.1 [facility] Comment on above: Performed By: #### C BC #### [facility] [address] [place] [address] Dr. Jemima Paul Basophils/100 WBC (Bld) 1.0 % Normal 0.2-2.0 [facility] Comment on above: Performed By: #### C BC #### [facility] [address] [place] [address] Dr. Jemima Paul EO # 0.2 103/ul Normal 0.0-0.7 [facility] Comment on above: Performed By: #### C BC #### [facility] [address] [place] [address] Dr. Jemima Paul Eosinophils/100 WBC (Bld) 3.0 % Normal 0.9-7.0 [facility] Comment on above: Performed By: #### C BC #### [facility] [address] [place] [address] Dr. Jemima Paul Erythrocyte distribution width (RBC) [Ratio] 12.4 % Normal 11.0-15.0 [facility] Comment on above: Performed By: #### C BC #### [facility] [address] [place] [address] Dr. Jemima Paul Hematocrit (Bld) [Volume fraction] 43.4 % Normal 36.0-48.0 [facility] Comment on above: Performed By: #### C BC #### [facility] [address] [place] [address] Dr. Jemima Paul Hemoglobin (Bld) [Mass/Vol] 14.8 g/dL Normal 12.0-16.0 [facility] Comment on above: Performed By: #### C BC #### [facility] [address] [place] [address] Dr. Jemima Paul IG # 0.04 10e3/ul Critically high 0.00-0.03 [facility] Comment on above: Performed By: #### C BC #### [facility] [address] [place] [address] Dr. Jemima Paul IG % 0.6 % Critically high 0.0-0.5 [facility] Comment on above: Performed By: #### C BC #### [facility] [address] [place] [address] Dr. Jemima Paul LYMPH # 3.1 103/ul Normal 1.2-3.8 [facility] Comment on above: Performed By: #### C BC #### [facility] [address] [place] [address] Dr. Jemima Paul Lymphocytes/100 WBC (Bld) 44.9 % Normal 20.5-60.0 [facility] Comment on above: Performed By: #### C BC #### [facility] [address] [place] [address] Dr. Jemima Paul MANUAL DIFF REQ NO Normal [facility] Comment on above: Performed By: #### C BC #### [facility] [address] [place] [address] Dr. Jemima Paul MCH (RBC) [Entitic mass] 36.2 pg Critically high 26.7-34.0 [facility] Comment on above: Performed By: #### C BC #### [facility] [address] [place] [address] Dr. Jemima Paul MCHC (RBC) [Mass/Vol] 34.1 g/dL Normal 29.9-35.2 [facility] Comment on above: Performed By: #### C BC #### [facility] [address] [place] [address] Dr. Jemima Paul MCV (RBC) [Entitic vol] 106.1 fL Critically high 81.0-99.0 [facility] Comment on above: Performed By: #### C BC #### [facility] [address] [place] [address] [address] Jemima Paul MONO # 0.4 103/ul Normal 0.3-0.8 [facility] Comment on above: Performed By: #### C BC #### [facility] [address] [place] [address] [address] Jemima Paul Monocytes/100 WBC (Bld) 6.2 % Normal 1.7-12.0 [facility] Comment on above: Performed By: #### C BC #### [facility] [address] [place] [address] [address] Jemima Paul NEUT # 3.1 103/ul Normal 1.4-6.5 [facility] Comment on above: Performed By: #### C BC #### [facility] [address] [place] [address] Dr. Jemima Paul Neutrophils/100 WBC (Bld) 44.3 % Normal 43.0-75.0 [facility] Comment on above: Performed By: #### C BC #### [facility] [address] [place] [address] Dr. Jemima Paul Platelet mean volume (Bld) [Entitic vol] 8.3 fL Critically low 9.5-13.5 [facility] Comment on above: Performed By: #### C BC #### [facility] [address] [place] [address] Dr. Jemima Paul PLT 288 103/ul Normal 150-450 [facility] Comment on above: Performed By: #### C BC #### [facility] [address] [place] [address] Dr. Jemima Paul RBC 4.09 106/ul Critically low 4.20-5.40 [facility] Comment on above: Result Comment: TEAR DROP CELLS 3+, MACROCYTOSIS 3+ Performed By: #### C BC #### [facility] [address] [place] [address] Dr. Jemima Paul WBC 7.0 103/ul Normal 4.0-11.0 [facility] Comment on above: Performed By: #### C BC #### [facility] [address] [place] [address] ABD/PELV W CONon [...] by: HELENA ANDERSEN Date: 2022-03-17 00:46 Normal [facility] PROF CHEM 8 (BAS METB)on Anion gap [Moles/Vol] 14.6 mmol/L Normal [facility] Comment on above: Performed By: #### B MP #### [facility] [address] [place] [address] Dr. Jemima Paul Calcium [Mass/Vol] 8.6 mg/dL Normal 8.5-10.1 [facility] Comment on above: Performed By: #### B MP #### [facility] [address] [place] [address] [address] Jemima Paul Chloride [Moles/Vol] 100 mmol/L Normal 98-107 [facility] Comment on above: Performed By: #### B MP #### [facility] [address] [place] [address] [address] Jemima Paul CO2 [Moles/Vol] 24.3 mmol/L Normal 21.0-32.0 [facility] Comment on above: Performed By: #### B MP #### [facility] [address] [place] [address] [address] Jemima Paul Creatinine [Mass/Vol] 0.99 mg/dL Normal 0.55-1.02 [facility] Comment on above: Performed By: #### B MP #### [facility] [address] [place] [address] [address] Jemima Paul EGFR-AF BENINESE >60 Normal >=60 [facility] Comment on above: Performed By: #### B MP #### [facility] [address] [place] [address] [address] Jemima Paul EGFR-NON AF BENINESE 60 mL/min/1.73m2 Normal >=60 [facility] Comment on above: Performed By: #### B MP #### [facility] [address] [place] [address] [address] Jemima Paul Glucose [Mass/Vol] 108 mg/dL Critically high 74-[address] [facility] Comment on above: Performed By: #### B MP #### [facility] [address] [place] [address] [address] Jemima Paul Potassium [Moles/Vol] 3.9 mmol/L Normal 3.5-5.1 [facility] Comment on above: Performed By: #### B MP #### [facility] [address] [place] [address] [address] Jemima Paul Sodium [Moles/Vol] 135 mmol/L Critically low 136-145 [facility] Comment on above: Performed By: #### B MP #### [facility] [address] [place] [address] [address] Jemima Paul Urea nitrogen [Mass/Vol] 11.0 mg/dL Normal 7.0-18.0 [facility] Comment on above: Performed By: #### B MP #### [facility] [address] [place] [address] [address] Jemima Paul Urea nitrogen/Creatinine [Mass ratio] 11.1 mg/mg Normal [facility] Comment on above: Performed By: #### B MP #### [facility] [address] [place] [address] Dr. Jemima Paul Large Joint Arthro/Inj: R gl enohumeral [facility] Vital Signs Date Time Vital Sign Value Performing Clinician Facility 11-26-2023 19:43-0500 Body temperature 98.42 [degF] Antonio Lenard [facility] 11-26-2023 19:43-0500 Diastolic blood pressure 75 mm[Hg] Antonio Lenard [facility] 11-26-2023 19:43-0500 Heart rate 111 /min Antonio Lenard [facility] 11-26-2023 19:43-0500 Respiratory rate 16 /min Antonio Lenard [facility] 11-26-2023 19:43-0500 SaO2% (BldA) [Mass fraction] 95 % Antonio Lenard [facility] 11-26-2023 19:43-0500 Systolic blood pressure 125 mm[Hg] Antonio Lenard [facility] 10-13-2023 18:29-0500 Diastolic blood pressure 89 mm[Hg] Bashir Evaristo [facility] 10-13-2023 18:29-0500 Heart rate 71 /min Bashir Evaristo [facility] 10-13-2023 18:29-0500 Mean blood pressure 107 mm[Hg] Bashir Evaristo [facility] 10-13-2023 18:29-0500 Respiratory rate 18 /min Bashir Evaristo [facility] 10-13-2023 18:29-0500 SaO2% (BldA) [Mass fraction] 97 % Bashir Evaristo [facility] 10-13-2023 18:29-0500 Systolic blood pressure 143 mm[Hg] Bashir Loera [facility] 10-13-2023 15:52-0500 Body temperature 98.24 [degF] Bashir Loera [facility] 10-13-2023 15:52-0500 Diastolic blood pressure 91 mm[Hg] Bashir Loera [facility] 10-13-2023 15:52-0500 Heart rate 88 /min Bashir Loera [facility] 10-13-2023 15:52-0500 Respiratory rate 18 /min Bashir Loera [facility] 10-13-2023 15:52-0500 SaO2% (BldA) [Mass fraction] 96 % Bashir Loera [facility] 10-13-2023 15:52-0500 Systolic blood pressure 158 mm[Hg] Bashir Loera [facility] 03-30-2023 10:59-0400 Body height 149.9 cm Verónica Duarte [id number] Work Phone: [facility] 03-30-2023 10:59-0400 Body weight 58.97 kg Verónicaminerva Duarte PA-C Work Phone: [facility] 01-31-2023 11:00-0400 Heart rate 89 /min Eren Ramires [facility] 01-31-2023 11:00-0400 Respiratory rate 16 /min Eren Ramires [facility] 01-31-2023 10:04-0400 Hourly Rounding Eren Ramires [facility] 01-31-2023 10:04-0400 Promise to Return Eren Keyla [facility] 01-31-2023 10:03-0400 Diastolic blood pressure 83 mm[Hg] Eren Keyla [facility] 01-31-2023 10:03-0400 Heart rate 91 /min Eren Keyla [facility] 01-31-2023 10:03-0400 Mean blood pressure 98 mm[Hg] Eren Keyla [facility] 01-31-2023 10:03-0400 Respiratory rate 20 /min Eren Keyla [facility] 01-31-2023 10:03-0400 SaO2% (BldA) [Mass fraction] 99 % Eren Keyla [facility] 01-31-2023 10:03-0400 Systolic blood pressure 127 mm[Hg] Eren Keyla [facility] 01-31-2023 09:40-0400 Body temperature 98.24 [degF] Eren Keyla [facility] 01-31-2023 09:40-0400 Diastolic blood pressure 86 mm[Hg] Eren Keyla [facility] 01-31-2023 09:40-0400 Heart rate 94 /min Eren Keyla [facility] 01-31-2023 09:40-0400 Hourly Rounding Eren Keyla [facility] 01-31-2023 09:40-0400 Promise to Return Eren Keyla [facility] 01-31-2023 09:40-0400 Respiratory rate 18 /min Eren Keyla [facility] 01-31-2023 09:40-0400 SaO2% (BldA) [Mass fraction] 98 % Eren Keyla [facility] 01-31-2023 09:40-0400 Systolic blood pressure 133 mm[Hg] Eren Ramires [facility] 11-12-2022 17:25-0500 Hourly Rounding Nate Gavin [facility] 11-12-2022 17:25-0500 Promise to Return Nate Gavin [facility] 11-12-2022 16:58-0500 Heart rate 70 /min Nate Brown [facility] 11-12-2022 16:58-0500 SaO2% (BldA) [Mass fraction] 97 % Nate Brown [facility] 11-12-2022 16:57-0500 Body temperature 97.52 [degF] Nate Brown [facility] 11-12-2022 16:57-0500 Diastolic blood pressure 85 mm[Hg] Nate Brown [facility] 11-12-2022 16:57-0500 Mean blood pressure 98 mm[Hg] Nate Brown [facility] 11-12-2022 16:57-0500 Systolic blood pressure 122 mm[Hg] Nate Brown [facility] 11-12-2022 16:25-0500 Hourly Rounding Nate Gavin [facility] 11-12-2022 16:25-0500 Promise to Return Nate Gavin [facility] 11-12-2022 16:00-0500 Respiratory rate 15 /min Nate Gavin [facility] 11-12-2022 15:16-0500 Hourly Rounding Nate Gavin [facility] 11-12-2022 15:16-0500 Promise to Return Nate Gavin [facility] 11-12-2022 11:45-0500 Body temperature 97.34 [degF] Nate Gavin [facility] 11-12-2022 11:45-0500 Diastolic blood pressure 85 mm[Hg] Nate Gavin [facility] 11-12-2022 11:45-0500 Heart rate 79 /min Nate Gavin [facility] 11-12-2022 11:45-0500 Mean blood pressure 93 mm[Hg] Nate Gavin [facility] 11-12-2022 11:45-0500 Respiratory rate 14 /min Nate Gavin [facility] 11-12-2022 11:45-0500 SaO2% (BldA) [Mass fraction] 96 % Nate Gavin [facility] 11-12-2022 11:45-0500 Systolic blood pressure 110 mm[Hg] Nate Gavin [facility] 11-12-2022 11:35-0500 Diastolic blood pressure 60 mm[Hg] Nate Gavin [facility] 11-12-2022 11:35-0500 Heart rate 61 /min Nate Gavin [facility] 11-12-2022 11:35-0500 Mean blood pressure 71 mm[Hg] Nate Gavin [facility] 11-12-2022 11:35-0500 Respiratory rate 16 /min Nate Gavin [facility] 11-12-2022 11:35-0500 Systolic blood pressure 92 mm[Hg] Nate Gavin [facility] 11-12-2022 11:30-0500 Mean blood pressure 69 mm[Hg] Nate Gavin [facility] 11-12-2022 11:30-0500 Respiratory rate 18 /min Nate Gavin [facility] 11-12-2022 11:20-0500 Body temperature 97.34 [degF] Nate Gavin [facility] 11-12-2022 11:15-0500 Respiratory rate 11 /min Nate Gavin [facility] 11-12-2022 11:10-0500 Respiratory rate 13 /min Nate Gavin [facility] 11-12-2022 07:01-0500 Body temperature 96.8 [degF] Nate Gavin [facility] 11-12-2022 07:01-0500 Heart rate 73 /min Nate Gavin [facility] 11-12-2022 06:46-0500 Body temperature 96.8 [degF] Nate Gavin [facility] 11-12-2022 06:46-0500 Heart rate 69 /min Nate Gavin [facility] 07-28-2022 10:58-0400 Body height 149.9 cm Ronan Cabello MD Work Phone: [facility] 07-28-2022 10:58-0400 Body temperature 97.81 [degF] Ronan Cabello MD Work Phone: [facility] 07-28-2022 10:58-0400 Body weight 57.15 kg Ronan Cabello MD Work Phone: [facility] 07-28-2022 10:58-0400 Diastolic blood pressure 89 mm[Hg] Ronan Cabello MD Work Phone: [facility] 07-28-2022 10:58-0400 Heart rate 90 /min Ronan Cabello MD Work Phone: [facility] 07-28-2022 10:58-0400 Respiratory rate 12 /min Ronan Cabello MD Work Phone: [facility] 07-28-2022 10:58-0400 Systolic blood pressure 125 mm[Hg] Ronan Cabello MD Work Phone: [facility] 05-04-2022 14:00-0400 Body height 152.4 cm Gale Vasquez Other [employer] Other 05-04-2022 14:00-0400 Body mass index (BMI) [Ratio] 25.97 kg/m2 Gale Vasquez Other [employer] Other 05-04-2022 14:00-0400 Body weight 60.33 kg Gale Vasquez Other [facility] Other 05-04-2022 14:00-0400 Diastolic blood pressure 86 mm[Hg] Gale Vasquez Other [facility] Other 05-04-2022 14:00-0400 Respiratory rate 20 /min Gale Vasquez Other [employer] Other 05-04-2022 14:00-0400 Systolic blood pressure 130 mm[Hg] Gale Vasquez Other [facility] Other 03-31-2022 12:03-0400 Body temperature 98.06 [degF] [facility] 03-31-2022 12:03-0400 Diastolic blood pressure 89 mm[Hg] [facility] 03-31-2022 12:03-0400 Heart rate 109 /min [facility] 03-31-2022 12:03-0400 Respiratory rate 18 /min [facility] 03-31-2022 12:03-0400 SaO2% (BldA) [Mass fraction] 100 % [facility] 03-31-2022 12:03-0400 Systolic blood pressure 155 mm[Hg] [facility] 01-01-2022 19:52-0400 Diastolic blood pressure 77 mm[Hg] Kofi Samuel [facility] 01-01-2022 19:52-0400 Heart rate 97 /min Kofi Samuel [facility] 01-01-2022 19:52-0400 Respiratory rate 18 /min Kofi Samuel [facility] 01-01-2022 19:52-0400 SaO2% (BldA) [Mass fraction] 97 % Kofi Samuel [facility] 01-01-2022 19:52-0400 Systolic blood pressure 113 mm[Hg] Kofi Samuel [facility] 01-01-2022 16:50-0400 Body temperature 98.42 [degF] Kofi Samuel [facility] 01-01-2022 16:50-0400 Diastolic blood pressure 88 mm[Hg] Kofi Samuel [facility] 01-01-2022 16:50-0400 Heart rate 126 /min Kofi Samuel [facility] 01-01-2022 16:50-0400 Respiratory rate 18 /min Kofi Samuel [facility] 01-01-2022 16:50-0400 SaO2% (BldA) [Mass fraction] 97 % Kofi Samuel [facility] 01-01-2022 16:50-0400 Systolic blood pressure 153 mm[Hg] Kofi Samuel [facility] Encounters Encounter Date Encounter Type Care Provider Facility Start: 11-26-2023 End: 11-26-2023 Emergency department patient visit Antonio Weinberg Facility:[facility] Start: 11-26-2023 End: 11-26-2023 Emergency department patient visit Antonio Weinberg [facility] Start: 11-24-2023 End: 11-24-2023 ambulatory [facility] Start: 11-24-2023 End: 11-24-2023 Encounter for preprocedural cardiovascular examination [facility] Start: 11-24-2023 Encounter for preprocedural cardiovascular examination [facility] Start: 10-18-2023 ambulatory Jaspreet Cortez Facility:[facility] Start: 10-17-2023 End: 10-17-2023 ambulatory GRACY MEDINA Not Available Start: 10-13-2023 End: 10-13-2023 Emergency department patient visit Bashir Loera Facility:[facility] Start: 10-13-2023 End: 10-13-2023 Emergency department patient visit Bashir Loera [facility] Start: 10-13-2023 End: 10-13-2023 ambulatory DAVID LEON Not Available Start: 08-30-2023 End: 08-31-2023 ambulatory DAVID LEON Facility:[facility] Start: 08-30-2023 End: 08-30-2023 Patient encounter procedure DAVID LEON [facility] Start: 08-29-2023 End: 08-29-2023 ambulatory DAVID LEON Not Available Start: 05-31-2023 End: 06-01-2023 ambulatory Gracy Medina Facility:[facility] Start: 05-31-2023 End: 05-31-2023 Patient encounter procedure Gracy Medina 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) (Primary Dx) Start: 04-07-2023 End: 04-07-2023 Emergency department patient visit Elzbieta Cantrell Facility:[facility] Start: 03-30-2023 End: 03-30-2023 [facility] Start: 03-30-2023 End: 03-30-2023 Patient encounter procedure Verónica Duarte PA-C Work Phone: Orthopaedics Comment on above: 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) (Primary Dx); Incomplete tear of right rotator cuff, unspecified whether traumatic; Biceps tendonitis on right Start: 03-27-2023 End: 03-27-2023 ambulatory SELF Facility:[facility] Start: 03-27-2023 End: 03-27-2023 Patient encounter [...] (Primary Dx) Start: 02-22-2023 ambulatory BERNARDA CORTES Facility: 1 Start: 02-06-2023 End: 02-07-2023 ambulatory Nate Gavin Facility:[facility] Start: 02-06-2023 End: 02-06-2023 Patient encounter procedure Nate Gavin [facility] Start: 01-31-2023 End: 01-31-2023 Emergency department patient visit Eren Ramires Facility:[facility] Start: 01-31-2023 End: 01-31-2023 Emergency department patient visit Eren Ramires [facility] Start: 01-11-2023 End: 01-18-2023 ambulatory UNKNOWN PROVIDER Facility:[facility] Start: 12-13-2022 End: 12-13-2022 ambulatory Sadiq Wilson Other [employer] Other Start: 12-13-2022 Telephone encounter [facility] Start: 11-15-2022 End: 11-16-[address] TK LEVI . Facility: Start: 11-12-2022 End: 11-12-2022 Observation Nate Gavin [facility] Start: 08-02-2022 End: 08-02-[address] WILL BENITEZ . Facility: Start: 07-28-2022 End: 07-29-2022 ambulatory GRACY MEDINA Facility:[facility] Start: 07-28-2022 End: 07-28-2022 Patient encounter procedure Ronan Cabello MD Work Phone: General Surgery Comment on above: Incisional hernia, w ithout obstruction or gangrene (Primary Dx) Start: 05-17-[address] AGUS LEON . Faci lity:[facility] Start: 05-11-2022 End: 05-12-2022 ambulatory GALE Lj NOLASCOJAY Facility:[facility] Start: 05-04-2022 End: 05-04-2022 ambulatory Gale Vasquez Other [place] [employer] Other Start: 05-04-2022 Office outpatient vi sit 25 minutes Gale Trajay [facility] Start: 04-18-2022 End: 04-27-2022 ambulatory BRAYAN MEDINA Facility:[facility] Start: 03-31-2022 End: 03-31-2022 Emergency department patient visit Gloria Medinamacey [facility] Start: 03-24-2022 End: 03-24-2022 Patient encounter procedure Gracy M Carol [facility] Start: 03-16-2022 End: 03-17-2022 ambulatory BRAYAN MEDINA Facility:[facility] Start: 01-01-2022 End: 01-01-2022 Emergency department patient visit Kofi Castellano [facility] Start: 03-29-2018 End: 03-30-2018 Ambulatory DEFAULT PHYSICIAN Facility:[facility] Procedures Date Procedure Procedure Detail Performing Clinician [...] Author Start: 04-18-2024 DIABETES SCREEN DIABETES SCREEN [facility] Start: 05-26-2023 Influenza vaccination C [facility] Start: 09-25-2022 [facility] Start: 05-26-2022 Influenza vaccination INFLUENZA (#1) [facility] Start: 09-25-2021 DEPRESSION [facility]ESS[facility] Start: 04-05-2021 COVID-19 VACCINE (3 - Booster for Pfizer series) COVID-19 VACCINE (3 - Booster for Pfizer series) [facility] Start: 04-05-2021 COVID-19 VACCINE (3 - Pfizer series) COVID-19 VACCINE (3 - Pfizer series) [facility] Start: 08-06-2020 PNEUMOCOCCAL (2 - PCV) PNEUMOCOCCAL (2 - PCV) [facility] Start: 2019 COLOGUARD (FIT-DNA) COLOGUARD (FIT-D NA) [facility] Start: 2019 Colonoscopy COLONOSCOPY [facility] Start: 2019 COLORECTAL CANCER SCREENING COLORECTAL CANCER SCREENING [facility] Start: [address] COLONOGRAPHY [facility] Start: 2019 FECAL OCCULT BLOOD FECAL OCCULT BLOO D [facility] Start: 2019 LIPID SCREEN LIPID SCREEN [facility] Start: 2019 SIGMOIDOSCOPY SIGMOIDOSCOPY [facility] Start: 2014 Mammography MAMMOGRAM [facility] Start: 2004 HPV TESTING HPV TESTING [facility] Start: 1995 PAP TESTING PAP TESTING [facility] Start: 1993 Urine microalbumin profile DTAP,TDAP,TD (1 - Tdap) [facility] Start: 1974 HEPATITIS B (1 of 3 - 3-dose series) HEPATITIS B (1 of 3 - 3-dose series) [facility] End: 03-27-2024 [facility] Vascular Lab Routine PAD (peripheral artery disease) (HCC) 1 Occurrences starting 03/27/2023 until 03/27/2024 [facility] Work Phone: Comment on above: 1 Occurrences starti ng 03/27/2023 until 03/27/2024 End: 04-06-2024 XR ANKLE GENERAL 3V AP/LAT/OBL LEFT XR ANKLE GENERAL 3V AP/LAT/OBL LEFT Radiology Routine Pain 1 Occurrences starting 03/08/2023 until 04/06/2024 [facility] Work Phone: Comment on above: 1 Occurrences starti ng 03/08/2023 until 04/06/2024 End: 05-09-2024 XR SHOULDER GENERAL 3V OR MORE AP/TRUE AP/OTHER RIGHT XR SHOULDER GENERAL 3V OR MORE AP/TRUE AP/OTHER RIGHT Radiology Routine 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) 1 Occurrences starting 04/10/2023 until 05/09/2024 [facility] Work Phone: Comment on above: 1 Occurrences starti ng 04/10/2023 until 05/09/2024 XR SHOULDER GENERAL 3V OR MORE AP/TRUE AP/OTHER RIGHT XR SHOULDER GENERAL 3V OR MORE AP/TRUE AP/OTHER RIGHT Radiology Routine 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) 04/10/2023 12:24 PM EDT [facility] Work Phone: [facility] Immunizations Immunization Date Immunization Notes Care Provider Fa [facility] 02-08-2021 COVID-19 original vaccine, age 12+ yr, monovalent (PFIZER-BIONTECH - PURPLE TOP) Ronan Cabello MD Work Phone: [facility] 01-18-2021 COVID-19 original vaccine, age 12+ yr, monovalent (PFIZER-BIONTECH - PURPLE TOP) Ronan Cabello MD Work Phone: [facility] 08-06-2019 pneumococcal polysaccharide vaccine, 23 valent Ronan Cabello MD Work Phone: [facility] 06-10-2019 seasonal influenza, intradermal, preservative free Ronan Cabello MD Work Phone: [facility] 06-25-2015 influenza virus vacc ine, unspecified formulation Ronan Cabello MD Work Phone: [facility] 06-12-2015 influenza, seasonal, injectable Ronan Cabello MD Work Phone: [facility] Payers Date Payer Category Payer Self-pay 2021 [place] [id number] 2021-Present [phone] [address] [place] [address] Medicaid [id number] 2015 Medicare MEDICARE MEDICAR E A AND B [id number] 2015-Present [phone] [address] [address] [place] [address] Medicare [id number] 2003 Private Health Insurance [id number] 1974 Unknown [id number] [id number] 32 1974 Unknown [id number] 2.16.840.1.819798.3.579.2.5 93 1974 Unknown [id number] 2.16.840.1.338617.3.579.2.5 93 1974 Unknown [id number] 2.16.840.1.188961.3.579.2.5 93 1974 Unknown [id number] 2.16.840.1.182513.3.579.2.5 93 1974 Unknown [id number] 2.16.840.1.201752.3.579.2.5 93 1974 Unknown [id number] 2.16.840.1.930866.3.579.2.5 93 1974 Unknown [id number] 2.16.840.1.047821.3.579.2.5 93 1974 Unknown [id number] 2.16.840.1.033589.3.579.2.1 259 1974 Unknown [id number] 2.16.840.1.022544.3.579.2.1 259 1974 Unknown [id number] 2.16.840.1.336245.3.579.2.1 259 1974 Unknown [id number] 2.16.840.1.665692.3.579.2.7 27 1974 Unknown [id number] 2.16.840.1.196622.3.579.2.7 27 1974 Unknown [id number] 2.16.840.1.949481.3.579.2.7 27 1974 Unknown [id number] 2.16.840.1.784601.3.579.2.7 27 1974 Unknown [id number] 2.16.840.1.360523.3.579.2.7 27 1974 Unknown [id number] 2.16.840.1.007574.3.579.2.7 27 1959 Medicaid [id number] 2.16.840.1.349763.19 1959 Medicaid [id number] 1959 Medicare [id number] [id number] Unknown Unknown [id number] 2.16.840.1.257649.3.579.2.5 31 Unknown [id number] 2.16.840.1.907965.3.579.2.5 31 Social History Date Type Detail Facility Start: 01-01-2022 Tobacco smoking status Heavy t obacco smoker (finding) [facility] Start: 03-27-2023 End: 03-30-2023 Sex Assigned At Female [facility] Start: 05-08-2018 End: 03-30-2023 Tobacco smoking status NHIS Occasional tobacco smoker [facility] Start: 05-08-2018 End: 03-30-2023 Tobacco use and exposure Smokeless tobacco non-user [facility] Start: 1975 Sex Assigned At Not on file C [facility] Start: 07-18-2022 End: 07-28-2022 Exposure to SARS-CoV-2 (event) Not sure [facility] Start: 03-27-2023 End: 03-30-2023 History of Social function [facility] National Score (1-100), lower number is lower risk 87 [facility] Medical Equipment Procedure Code Equipment Code Equipment Origin al Text Equipment Identifier Dates Mesh Prolene Polypropylene 6x4in Surgical Patch Soft Flat Sterile Hernia - [id number] Start: 10-21-2015 ANKLE FRACTURE O RIF [...] Assessment Result Facility 11-26-2023 Functional Status N/A [facility] 10-13-2023 Functional Status N/A [facility] 01-31-2023 Functional Status N/A [facility] 11-12-2022 Functional Status N/A [facility] 11-12-2022 Functional Status [facility] 03-31-2022 Functional Status N/A [facility] Clinical Notes 01-01-2022 to 11-26-2023 Note Date & Type Note Facility 11-26-2023 Hospital Discharg e instructions Patient Education 11/26/2023 20:23:06 Contusion, Hbiw-zc-Kfqt Contusion A contusion is a deep bruise. [...] sitting or lying down. General instructions Take pcsb-alf-itvztlc and prescription medicines only as told by [...] also called RICE. You may be given jtej-bas-qmuxbki medicines for pain. Contact a doctor if [...] provider. Document Revised: 07/07/2022 Document Reviewed: 07/07/2022 SEAT 4a Patient Education 2022 [employer]. Follow Up Care 11/26/2023 19:41:00 With:Gracy Medina MD Address: [address] [place] [address]- When:11/29/[address] [facility] 11-26-2023 Evaluation + Plan note Extrac angela from: Title:ED Note Author:Jessica Bush PA-C. Date :11/26/23 1. Contusion of toe, left (S 90.122A: Contusion of left lesser toe(s) without damage to nail, initial encounter) Orders: XR Foot 3+ Views Left [facility]03-01-2024 NoteHypertension is uncontrolled Continue toprol 100 mg daily, and will add lisinopril 5 mg daily and will repeat BMP in about 1 week after starting. [facility] NoteContinue toprol 100 mg daily [facility]T [facility]24 NotePatient here for surgery clearance prior [...] other systems reviewed and are negative.[facility] 11-24-2023 NoteUTP CARDIOLOGY PROGRESS NOTE HPI: Nathaniel [...] Risk 3.9 % 30-day risk of , [place], or cardiac arrest From a cardiac perspective pt may proceed with ankle surgery, she is a low risk for a low risk procedure. Please monitor hemodynamics carefully and prevent any major fluid shifts. SVT (supraventricular tachycardia) (CMS/HCC) Continue toprol 100 mg daily SVT stable currently (more content not included)...[facility]03-01-2024 NoteRCRI=0???points Class I Risk 3.9???% 30-day risk of , [place], or cardiac arrest From a cardiac perspective pt may proceed with ankle surgery, she is a low risk for a low risk procedure. Please monitor hemodynamics carefully and prevent any major fluid shifts.[facility]01-19-2024 Hospital Discharge instructions Patient Education 10/13/2023 18:55:44 Abdominal Pain, Adult, Ejbb-vu-Qcvk Abdominal Pain, Adult Many things can cause belly (abdominal) pain. Most times, belly pain is not dangerous. Many cases of belly pain can be watched and treated at home. Sometimes, though, belly pain is serious. Your doctor will try to find the cause of your belly pain. Follow these instructions at home: Medicines Take byou-hzt-sxvfbir and prescription medicines only as told by [...] your belly pain for any changes. Take kmsv-nlj-xkyjnkf and prescription medicines only as told by [...] provider. Document Revised: 01/20/2020 Document Reviewed: 01/20/2020 SEAT 4a Patient Education 2022 [employer]. 10/13/2023 18:55:44 Constipation, Adult Constipation, Adult Constipation [...] as fried or sweet foods. These include upper sorbian fries, hamburgers, cookies, candies, and soda. Drink enough fluid to keep your urine pale yellow. General instructions Exercise regularly or as told by your health care provider. Try to do 150 minutes of moderate exercise each week. Use the bathroom when you have the urge to go. Do not hold it in. Take nfsn-jkm-fbvbako and prescription medicines only as told by [...] to keep your urine pale yellow. Take imcn-czk-prjfcjz and prescription medicines only as told by your health care provider. This includes any fiber supplements. This information is not intended to replace advice given to you by your health care provider. Make sure you discuss any questions you have with your health care provider. Document Revised: 07/29/2020 Document Reviewed: 07/29/2020 SEAT 4a Patient Education 2022 [employer]. Follow Up Care 10/13/2023 15:41:06 With:Gracy Medina Address: [place] [place] [address] [facility]) When:10/16/2023 18:37:35 Comments:Follow-up with your primary care provider in 3 to 5 days. If symptoms worsen, do not improve, or new symptoms arise please report back to emergency department for further evaluation. [facility]12-06-2023 Evaluation + Plan note Diagnostic Tests Pending * Clostridium difficile by PCR 08/30/[address] [facility]08-17-2023 Miscellaneous Notes* Telephone Encounter - Marcie [...] calling her back today. [facility] Miscellaneous Notes* Telephone Encounter - Vinita Crabtree - 05/11/2023 10:34 AM EDT Left VM and sent [employer] message to patient to see if she wants to schedule shoulder surgery with Dr. Myers on 05/18. Waiting for call back documented in this encounterTrihealth [facility]07-[facility]-2023 NoteUTP CARDIOLOGY PROGRESS NOTE HPI: Nathaniel [...] -Follow-up in cardiology clinic [facility] NotePatient here for 6 mo follow up SVT, palpitations, and DIAZ. She did not see another chief nursing officer or have PFT's that Gracia ordered in [...] other systems reviewed and are negative.[facility] 04-10-2023 NoteHNO ID: [id number] Author: Shraita Myers MD Service: ? Author Type: Physician [...] As you know she is a 47-year-old nrgo-ixfv-lemkmkhk female with complaints in her shoulder that [...] strength with resisted ex (more content not included)...[facility]07-17-2023 NoteHNO ID: [id number] Author: RT Aleida(R) Service: Radiology Author Type: [...] BY: RT Slim(R) April 10, 2023 12:25 [facility] History of Present illness Narrative* Sharita [...] As you know she is a 47-year-old bzom-ongl-wbvpkfch female with complaints in her shoulder that [...] she presents for further discussion on management. Nahtaniel has recently been transition into weightbearing as [...] TIME: 1:48 PM PAGER: documented in this encounterTrihealth [facility]hes[facility]07-06-2023 NoteHNO ID: [id number] Author: Corry Conroy Service: ? Author Type: [...] Signature: Corry Conroy March 30, 2023 2:00 [facility]07[facility] NotePatient Outreach (NETNAV) NATHANIEL MARCIAL ([id number]) 1975 F Date Time Provider Department 03/30/23 [...] gangr*07/08/2021 Encounter Status:Closed by CORRY LIN on 03/30/23[facility]07-06-2023 History of Present illness Narrative* [...] 30, 2023 2:00 PM documented in this encounterTrihealth [facility]07-06-2023 NoteHNO ID: [id number] Author: Verónica Duarte PA-C Service: ? Author Type: Physician Emergency Medicine Nurse Practitioner Type: Progress Notes Filed: 03/30/2023 12:43 PM [...] seen Dr. Nate Gavin with [facility] in [place] and ordered a MRI of her shoulder [...] belly press test. Positive speeds test. Positive Wahkiakum's test. Positive impingement signs. Positive Neer sign. Neurovascular intact distally with 2+ radial pulses bilaterally. Last XR Shoulder - Impression Only No resulted procedures found. X-rays right shoulder 01/19/23: AVN right hum (more content not included)... [facility]07-06-2023 Instructions* Patient Instructions* Verónica Duarte PA-C - 03/30/2023 11:38 AM EDT SHANIA Alvarez Dr. [phone] ([place]) PT: [phone] documented in this encounterTrihealth [facility]hes[facility]07-06-2023 History of Present illness Narrative* Verónica [...] seen Dr. Nate Gavin with [facility] in [place] and ordereda MRI of her shoulder from [...] belly press test. Positive speeds test. Positive Wahkiakum's test. Positive impingement signs. Positive Neer sign. [...] R glenohumeral Informed Consent Consent Obtained: Verbal Seco Protocol A moment to CARE was completed. [...] information obtained and documented by the physician resident programs assistant. I examined the patient and evaluated all available films and pertinent documents. We discussed the case and I agree withthe plans as outlined in this note. SIGNATURE: Verónica Duarte PA-C PATIENT NAME: Nathaniel Marcial DATE: March 30, 2023 TIME: 11:13 AM documented in this encounterTrihealth [facility]hes[facility]07-03-2023 NoteHNO ID: [id number] Author: Aureliano Vann DPM Service: ? Author [...] with the patient. - (more content not included)...[facility]07-03-2023 Instructions* Patient Instructions* Aureliano Vann DPM - 03/27/2023 1:47 PM EDT Please schedule PVR (blood flow) [phone] documented in this encounterTrihealth [facility]07-03-2023 NoteHNO ID: [id number] Author: Jevon Lemons Service: ? Author Type: De Icer Element Winder Type: Progress Notes Filed: 03/27/2023 12:28 PM [...] BY: Jevon Lemons March 27, 2023 12:28 [facility]07[facility] History of Present illness Narrative* Aureliano Vann [...] Nathaniel Marcial : 1975 To Department of [employer] Public [employer] Registration Division The above [...] contact them, they can be reached at [phone]. For [place] appointments: [phone]. Order Specific Question: Does consulting provider have [...] 2023 TIME: 12:58 PM documented in this encounterTrihealth [facility]hes[facility]07-03-2023 History of Present illness Narrative* Jevon [...] 27, 2023 12:28 PM documented in this encounterTrihealth [facility]05-09-2023 Hospital Discharge instructions Patient Education 01/31/2023 [...] or salas your foot. General instructions Take krxj-qnj-fojvecp and prescription medicines only as told by [...] provider. Document Revised: 01/01/2021 Document Reviewed: 01/01/2021 SEAT 4a Patient Education 2022 [employer]. Follow Up Care 01/31/2023 09:38:16 With:Nate Gavin Address: [address] [place] [address]- Business (1) When:02/03/2023 11:08:08 With:Gracy Medina Address: [address] [place] [address]- Business (1) When:02/03/2023 11:08:[address] [facility]03-21-2023 Evaluation note* Encounter Date Diagnosis Assessment Notes Treatment Notes Treatment Clinical Notes Nov, Abdominal pain (ICD-10 - R10.9) vozero Other 02-18-2023 Evaluation + Plan noteExtracted from: [...] NPO Diet XR Ankle 3+ Views Left [facility]02-18-2023 Hospital Discharge instructions Patient Education 11/12/2022 09:42:18 [place] - Ankle Fracture Post Op (Custom) (Custom) [place], [place] [facility] DISCHARGE INSTRUCTIONS: ANKLE FRACTURE [...] office evaluation. Nate Gavin, DO [facility] [address] [place] [phone] Reviewed: 12-31 Follow Up Care 11/12/2022 06:46:16 With:Nate Gavin Address: [address] [place], [place] [address], [place] [address] Business (1) When:[address] [facility]11-03-2022 NoteHNO ID: [id number] Author: Ronan Cabello MD Service: ? Author [...] our notes. Patient consented for study? Not applicableUniversity [facility]11-[facility]-2022 NoteHNO ID: [id number] Author: Donna Donis Ms Service: ? Author Type: ? Type: Progress Notes Filed: 07/28/2022 1:17 PM Note Text: GENERAL SURGERY CLINIC NOTE Nathaniel Marcial [id number] HPI: Nathaniel Marcial is a 46 year [...] not recall but is following with a outreach librarian in 1 week. O: BP 125/89 Pulse [...] how to proceed. Donna [facility]is Ms [facility] of Present illness Narrative* Ronan [...] EDT GENERAL SURGERY CLINIC NOTE Nathaniel Marcial [id number] HPI: Nathaniel Marcial is a 46 year [...] not recall but is following with a outreach librarian in 1 week. O: BP 125/89 Pulse [...] Ms Jul 28, 2022 documented in this encounterTrihealth [facility]11-03-2022 Nurse Note* Dalton Lee - 07/28/2022 [...] Temperature: No Drains: No documented in this encounterTrihealth [facility]08-10-2022 Evaluation note* Encounter Date Diagnosis Assessment Notes Treatment Notes Treatment Clinical Notes Apr, Irritable bowel syndrome with diarrhea (ICD-10 - K58.0) Apr, Abdominal pain (ICD-10 - R10.9) Apr, Diarrhea (ICD-10 - R19.7) Apr, Bloating (ICD-10 - R14.0) vozero Other 07-07-2022 Hospital Discharge instructions Patient Education [...] exercise. Managing pain, stiffness, and swelling Take yela-jje-jyysoiz and prescription medicines only as told by [...] 09/11/2006 Document Revised: 08/24/2018 Document Reviewed: 10/11/2017 SEAT 4a Patient Education 2020 [employer]. Follow Up Care 03/31/2022 12:02:20 With:Gracy Medina MD Address: [address] [place] [address]- When:04/03/[address] [facility]07-07-2022 Evaluation + Plan noteExtracted from: Title:ED [...] w/CAD if perf and 3D Robert 04/20/[address] [facility]04-09-2022 Hospital Discharge instructions Patient Education 01/01/2022 [...] is stable enough for you to begin ijpxq-sc-wlogzt exercises. You may also be prescribed pain [...] provider says that it is safe. Do tntkg-av-zonxzg exercises only as told by your health [...] quitting, ask your health care provider. Take gxck-hdf-knpsyii and prescription medicines only as told by your health care provider. Ask your health care provider if the medicine prescribed to you can cause constipation. You may need to take steps to prevent or treat constipation, such as: ?Drink enough fluid to keep your urine pale yellow. ?Take xqrh-sci-zcwcgjo or prescription medicines. ?Eat foods that are [...] 12/18/2001 Document Revised: 05/13/2019 Document Reviewed: 05/13/2019 SEAT 4a Patient Education 2020 [employer]. Follow Up Care 01/01/2022 16:44:18 With:Gale Truong Address: [address] [place] [address] Business (1) When:01/04/2022 19:33:35 Comments:Wear the sling when you are up and around you can take it off at night when you are sleeping. Please follow-up with orthopedic surgery for further evaluation management. Please return to the ED for any new or worsening symptoms. With:Gracy Medina Address: [address] [place] [place] [address]- Business (1) When:Within 3 Day(s) [facility]04-09-2022 Evaluation + Plan noteExtracted from: Title:ED [...] 19:11:00 EDT, 01/01/22 19:11:00 EDT Sling Apply [facility] Future Appointments Appointment Date:02/06/2023 09:00:00 AM Scheduled Provider: Location:FT.MRI Appointment Type:MRI Humerus/Shoulder (FT) Future Scheduled Tests Radiology* MRI Shoulder w/o Contrast Right 02/06/[address] [facility]* Diagnosis Incisional hernia, without obstruction or gangrene- Primary Incisional hernia without mention of obstruction or gangrene documented in this encounter [facility]* Diagnosis Pain- Primary Generalized pain documented in this encounter [facility]* Diagnosis 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, subsequent encounter- Primary Osteoporosis, unspecified osteoporosis type, unspecified pathological fracture presence PAD (peripheral artery disease) ([facility]) Peripheral vascular disease, unspecified Allodynia Disturbance of skin sensation Nicotine use disorder, F17.2 Tobacco use disorder documented in this encounter [facility]* Diagnosis Pain Generalized pain documented in this encounter [facility]Evalun[facility] foundation note* Diagnosis 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)- Primary Incomplete tear of right rotator cuff, unspecified whether traumatic Biceps tendonitis on right documented in this encounter [facility]* Diagnosis 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)- Primary [facility] Narrative - Reported* Type Description Date Medical History bipolar Medical History asthma Medical History GERD Medical History IBS Surgical History C section-2X Surgical History x 2 Surgical History laparoscopy Surgical History appendectomy Surgical History hernia-10X Surgical History multiple hernia repairs Surgical History hysterectomy Surgical History back Surgical History back surgery Hospitalization History see above vozero Other Hospital course Narrative No data available for this section [facility] No data available for this section [facility] No data available for this section [facility] (narrative)* Diagnostic Procedure Only (Routine) - Authorized Specialty Diagnoses / Procedures Referred By Елена t Referred To Contact XR IMAGING Diagnoses Pain Procedures XR ANKLE GENERAL 3V AP/LAT/OBL LEFT RADEX ANKLE COMPLETE MINIMUM 3 VIEWS Aureliano Vann DPM [address] [place] [address] Xr Imaging Referral ID Status Reason Start Date Expiration Date Visits Requested Visits Authorized [id number] Authorized Auto-Generat ed Referral 03/08/2023 04/06/2024 1 1 [facility] for referral (narrative)* Outpatient Procedure (Routine) - Pending Review Specialty Diagnoses / Procedures Referred By Елена t Referred To Contact [facility] Diagnoses PAD (peripheral artery disease) (HCC) Procedures PVR LEG UNL VAS LAB NON-INVASIVE PHYSIOLOGIC STUDY EXTREMITY 3 LEVLS Aureliano Vann DPM [address] [place] [address] [facility] [address] [address] Referral ID Status Reason Start Date Expiration Date Visits Requested Visits Authorized [id number] Pending Review Auto-Generat ed Referral 03/27/2023 03/26/2024 1 1 * Consult, Test, Treat (Routine) - Authorized Specialty Diagnoses / Procedures Referred By Contac t Referred To Contact Pain Management Diagnoses 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, subsequent encounter Allodynia Procedures CONSULT TO PAIN MGT OFFICE/OUTPATIENT NEW HIGH MDM 60-74 MINUTES Aureliano Vann DPM [address] [place] [address] Referral ID Status Reason Start Date Expiration Date Visits Requested Visits Authorized [id number] Authorized PCP Requested Referral 03/27/2023 03/26/2024 1 1 [facility] for referral (narrative)* Diagnostic Procedure Only (Routine) - Closed Specialty Diagnoses / Procedures Referred By Contac t Referred To Contact XR IMAGING Diagnoses Pain Procedures XR ANKLE GENERAL 3V AP/LAT/OBL LEFT RADEX ANKLE COMPLETE MINIMUM 3 VIEWS Aureliano Vann DPM [address] [place] [id number] Xr Imaging Referral ID Status Reason Start Date Expiration Date V isits Requested Visits Authorized [id number] Closed Auto-Generate d Referral 03/08/2023 04/06/2024 1 1 [facility] for referral (narrative)* Diagnostic Procedure Only (Routine) - Closed Specialty Diagnoses / Procedures Referred By Contac t Referred To Contact XR IMAGING Diagnoses 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) Procedures XR SHOULDER GENERAL 3V OR MORE AP/TRUE AP/OTHER RIGHT RADEX SHOULDER COMPLETE MINIMUM 2 VIEWS Sharita Myers MD [address] [place] [address] Xr Imaging Referral ID Status Reason Start Date Expiration Date V isits Requested Visits Authorized [id number] Closed Auto-Generate d Referral 04/10/2023 05/09/2024 1 1 T [facility] for visit Narrative* Diagnostic Procedure Only (Routine) - Closed Specialty Diagnoses / Procedures Referred By Contac t Referred To Contact XR IMAGING Diagnoses Pain Procedures XR ANKLE GENERAL 3V AP/LAT/OBL LEFT RADEX ANKLE COMPLETE MINIMUM 3 VIEWS Aureliano Vann DPM [address] [place] [address] Xr Imaging Referral ID Status Reason Start Date Expiration Date V isits Requested Visits Authorized [id number] Closed Auto-Generate d Referral 03/08/2023 04/06/2024 1 1 [facility] Summary Purpose Family History No Family [...] MINS Verónica Duarte PA-C [address] [place] [address] [facility] [place] [address] [place] [id number] Referral ID Status Reason Start Date Expiration Date Visits Requested Visits Authorized [id number] Authorized PCP Requested Referral Auto-Generate d Referral [...] and content) DATE CREATED AUTHOR 03/30/2018 [facility] DATE CREATED AUTHOR AUTHOR'S ORGANIZ ATION 01/20/2023 [facility] DATE CREATED AUTHOR AUTHOR'S ORGANIZ ATION 03/03/2023 [facility] DATE CREATED AUTHOR AUTHOR'S ORGANIZ ATION 04/14/2023 [facility] DATE CREATED AUTHOR AUTHOR'S ORGANIZ ATION 05/18/2023 [facility] DATE CREATED AUTHOR AUTHOR'S ORGANIZ ATION 10/18/2023 [facility] EPIC DATE CREATED AUTHOR AUTHOR'S ORGANIZ ATION 11/26/2023 [facility] DATE CREATED AUTHOR AUTHOR'S ORGANIZ ATION 11/28/2023 [facility] DATE CREATED AUTHOR AUTHOR'S ORGANIZ ATION 12/17/2023 [facility] Care Team (unrecognized sect ion and content) Compounding Pharmacy Technician Relationship Specialty Start Date End Date Gracy Medina MD [address] [place] [address] PCP - General Family Medicine 04/11/21 Compounding Pharmacy Technician Relationship Specialty Start Date End Date Gracy Medina MD [address] [place] [address] PCP - General Family Medicine 04/11/21 Gracy Medina MD [address] [place] [address] Referring Family Medicine 03/07/23 Compounding Pharmacy Technician Relationship Specialty Start Date End Date Gracy Medina MD [address] [place] [address] PCP - General Family Medicine 04/11/21 Gracy Medina MD [address] [place] [address] Referring Family Medicine 03/07/23 Compounding Pharmacy Technician Relationship Specialty Start Date End Date Gracy Meidna MD [address] [place] [address] PCP - General Family Medicine 04/11/21 Gracy Medina MD [address] [place] [address] Referring Family Medicine 03/07/23 Compounding Pharmacy Technician Relationship Specialty Start Date End Date Gracy Medina MD [address] [place] [address] PCP - General Family Medicine 04/11/21 Gracy Medina MD [address] [place] [address] Referring Family Medicine 03/07/23 Compounding Pharmacy Technician Relationship Specialty Start Date End Date Gracy Medina MD [address] [place] [address] PCP - General Family Medicine 04/11/21 Gracy Medina MD [address] [place] [address] Referring Family Medicine 03/07/23 Compounding Pharmacy Technician Relationship Specialty Start Date End Date Gracy Medina MD [address] [place] [address] PCP - General Family Medicine 04/11/21 Gracy Medina MD [address] [place] [address] Referring Family Medicine 03/07/23 REASON FOR VISIT [...] or prosecute any alcohol or drug abuse patient.[facility] HospitalIn the event this information is protected by the Federal Confidentiality of Alcohol and Drug Abuse Patient Records regulations: The Federal rules restrict any use of the information to criminally investigate or prosecute any alcohol or drug abuse patient.[facility] HospitalIn the event this information is protected by the Federal Confidentiality of Alcohol and Drug Abuse Patient Records regulations: The Federal rules restrict any use of the information to criminally investigate or prosecute any alcohol or drug abuse patient.[facility] HospitalIn the event this information is protected by the Federal Confidentiality of Alcohol and Drug Abuse Patient Records regulations: The Federal rules restrict any use of the information to criminally investigate or prosecute any alcohol or drug abuse patient.[facility] HospitalIn the event this information is protected by the Federal Confidentiality of Alcohol and Drug Abuse Patient Records regulations: The Federal rules restrict any use of the information to criminally investigate or prosecute any alcohol or drug abuse patient.[facility] HospitalIn the event this information is protected by the Federal Confidentiality of Alcohol and Drug Abuse Patient Records regulations: The Federal rules restrict any use of the information to criminally investigate or prosecute any alcohol or drug abuse patient.[facility] HospitalIn the event this information is protected by the Federal Confidentiality of Alcohol and Drug Abuse Patient Records regulations: The Federal rules restrict any use of the information to criminally investigate or prosecute any alcohol or drug abuse patient.[facility] HospitalIn the event this information is protected by the Federal Confidentiality of Alcohol and Drug Abuse Patient Records regulations: The Federal rules restrict any use of the information to criminally investigate or prosecute any alcohol or drug abuse patient.[facility] HospitalIn the event this information is protected by the Federal Confidentiality of Alcohol and Drug Abuse Patient Records regulations: The Federal rules restrict any use of the information to criminally investigate or prosecute any alcohol or drug abuse patient.[facility] FOR RECORDS PERTAINING TO PATIENTS WHO [...] BE BASED ON THE PRIMARY CLINICAL RECORDS. [facility]. provides no warranty or guarantee of the accuracy or completeness of information in this document.
--- NOTE | 2023-12-22 01:02 | PC.NURSE ---
Patient to ED with post op concern of pain and bleeding. Patient had surgery with Dr. Walsh on 12/21/2023 to have hardware removed from left ankle. tonight she began having pain in the medial aspect of the ankle and noticed fresh bleeding on her dressing. She is afraid that there are stitches broken open or damage done from the cam boot since she is allowed to be weight bearing with the boot on and it was putting pressure on her incisions.
--- NOTE | 2023-12-22 02:09 | ED_ITS ---
HPI - Wound/Laceration General Chief Complaint: Wound/Laceration Stated Complaint: post op l ankle pain/bleeding Time Seen by Provider: 12/22/23 00:51 Source: patient Mode of arrival: Wheelchair Limitations: physical limitation History of Present Illness HPI narrative: This 48-year-old female who had surgery with Dr. Walsh on December 20 in which she had hardware from a healed ankle fracture that was bothering her as well as arthroscopy presents for evaluation of pain at the medial aspect of her left leg. The patient states that she thinks she is having pain because of the boot she is wearing and the dressing that was applied after her surgery. She states she is having severe pain at the medial aspect of her left ankle. She was told that she could be ambulatory with a can boot but thinks that they can boot is too tight for her. She had a nerve block but states the nerve block is wearing off and the pain is severe. She also partially remove the Chetan wrap and noticed that there was some dried blood on the dressing at the medial aspect of the ankle and thinks that it is bleeding. She has not had a fever. She has not spoken to Dr Walsh about her concerns Related Data Home Medications ?Medication ?Instructions ?Recorded ?Confirmed albuterol sulfate 90 mcg/actuation 2 inh inhalation Q6H PRN shortness 12/13/23 12/21/23 aerosol inhaler of breath or wheezing alendronate 70 mg tablet 70 mg PO .weekly 12/13/23 12/21/23 alprazolam 0.5 mg tablet 0.5 mg PO TID PRN anxiety 12/13/23 12/21/23 dicyclomine 20 mg tablet 20 mg PO TID 12/13/23 12/21/23 lisinopril 5 mg tablet 5 mg PO DAILY 12/13/23 12/21/23 methocarbamol 750 mg tablet 750 mg PO Q8H PRN muscle spasm 12/13/23 12/21/23 metoprolol succinate 100 mg 100 mg PO DAILY 12/13/23 12/21/23 tablet,extended release 24 hr pantoprazole 40 mg tablet,delayed 40 mg PO DAILY 12/13/23 12/21/23 release quetiapine 25 mg tablet 25 mg PO QPM 12/13/23 12/21/23 quetiapine 50 mg tablet 50 mg PO QPM 12/13/23 12/21/23 Previous Rx's ?Medication ?Instructions ?Recorded aspirin 81 mg tablet,delayed 81 mg PO BID 30 days #60 tabs 12/21/23 release (Adult Low Dose Aspirin) cefadroxil 500 mg capsule 500 mg PO BID 7 days #14 caps 12/21/23 ondansetron 4 mg disintegrating 4 mg PO Q8H PRN nausea and 12/21/23 tablet vomiting 5 days #15 tabs oxycodone-acetaminophen 5 mg-325 1 tab PO Q6H PRN pain 7 days #28 12/21/23 mg tablet (Percocet) tabs sennosides 8.6 mg tablet (Senna 8.6 mg PO DAILY PRN constipation 7 12/21/23 Laxative) days #7 tabs tizanidine 2 mg tablet 2 mg PO TID PRN muscle spasticity 12/21/23 7 days #21 tabs Allergies Allergy/AdvReac Type Severity Reaction Status Date / Time vancomycin Allergy Severe red man Verified 12/13/23 13:43 syndrome bacitracin Allergy Mild Rash Verified 12/13/23 13:43 lamotrigine [From Lamictal] AdvReac Severe Agitated Verified 12/13/23 13:43 clindamycin AdvReac c-diff Verified 12/13/23 14:20 Review of Systems ROS Status of ROS 10 or more systems reviewed and unremark able except as noted in history and below [facility] Medical History (Updated 12/22/23 @ 01:29 by Rosy Gao MD) Back pain ?M54.9 - Dorsalgia, unspecified (ICD-10) Arthritis ?M19.90 - Unspecified osteoarthritis, unspecified site (ICD-10) History of blood transfusion ?Z92.89 - Personal history of other medical treatment (ICD-10) Insomnia ?G47.00 - Insomnia, unspecified (ICD-10) PTSD (post-traumatic stress disorder) ?F43.10 - Post-traumatic stress disorder, unspecified (ICD-10) Depression ?F32.A - Depression, unspecified (ICD-10) Bipolar disorder ?F31.9 - Bipolar disorder, unspecified (ICD-10) Panic attacks ?F41.0 - Panic disorder [episodic paroxysmal anxiety] (ICD-10) COVID-19 (10/06/23) ?U07.1 - COVID-19 (ICD-10) Pneumonia ?J18.9 - Pneumonia, unspecified organism (ICD-10) GERD (gastroesophageal reflux disease) ?K21.9 - Gastro-esophageal reflux disease without esophagitis (ICD-10) Asthma ?J45.909 - Unspecified asthma, uncomplicated (ICD-10) Dyspnea on exertion ?R06.09 - Other forms of dyspnea (ICD-10) Scoliosis ?M41.9 - Scoliosis, unspecified (ICD-10) Palpitations ?R00.2 - Palpitations (ICD-10) Hypertension ?I10 - Essential (primary) hypertension (ICD-10) Hypokalemia ?E87.6 - Hypokalemia (ICD-10) Ectopic ?O00.90 - Unspecified ectopic without intrauterine (ICD- 10) Ankle instability ?M25.373 - Other instability, unspecified ankle (ICD-10) Ankle joint disorder ?M19.079 - Primary osteoarthritis, unspecified ankle and foot (ICD-10) Presence of orthopedic implant of ankle ?Z96.7 - Presence of other bone and tendon implants (ICD-10) Foot pain ?M79.673 - Pain in unspecified foot (ICD-10) Cellulitis ?L03.90 - Cellulitis, unspecified (ICD-10) Ankle fracture ?S82.899A - Other fracture of unspecified lower leg, initial encounter for closed fracture (ICD-10) Degenerative disc disease Clostridium difficile diarrhea ?A04.72 - Enterocolitis due to Clostridium difficile, not specified as recurrent (ICD-10) Shoulder pain ?M25.519 - Pain in unspecified shoulder (ICD-10) Osteoarthritis ?M19.90 - Unspecified osteoarthritis, unspecified site (ICD-10) Osteoporosis ?M81.0 - Age-related osteoporosis without current pathological fracture (ICD- 10) Surgical History (Updated 12/21/23 @ 06:40 by Holli Curtis RN) H/O section ?Z98.891 - History of uterine scar from previous surgery (ICD-10) History of esophagogastroduodenoscopy (EGD) ?Z98.890 - Other specified postprocedural states (ICD-10) History of colonoscopy ?Z98.890 - Other specified postprocedural states (ICD-10) H/O unilateral salpingectomy ?Z90.79 - Acquired absence of other genital organ(s) (ICD-10) History of hernia repair ?Z98.890 - Other specified postprocedural states (ICD-10) ?Z87.19 - Personal history of other diseases of the digestive system (ICD-10) History of ankle surgery ?Z98.890 - Other specified postprocedural states (ICD-10) History of spinal surgery ?Z98.890 - Other specified postprocedural states (ICD-10) History of hysterectomy ?Z90.710 - Acquired absence of both cervix and uterus (ICD-10) Family History (Updated 12/13/23 @ 14:07 by Rachna Madera NP) Other Cardiomyopathy Delayed recovery from anesthesia Family history of coronary artery disease Family history of heart disease Family history of myocardial infarction Family history of skin cancer Family history of stroke Social History (Updated 12/21/23 @ 06:43 by Holli Curtis RN) Within the past year, how often did you have a drink containing alcohol: monthly or less Smoking status: Current every day smoker What tobacco products do you use: cigarettes Packs per day: 1 Years smoked: 37 Smoking pack-years: 37.00 Non-prescribed substance use: cannabis (any form) Non-prescribed substance use details: states has her medical card Previous occupational history: disabled Highest level of school completed/degree received: 11th grade Exam Narrative Exam Narrative: Nurses note and vital signs reviewed; She is afebrile, tachycardic with a pulse of 114, blood pressure is normal General: But extremely anxious female, no respiratory distress, she is crying at times Skin: Warm, dry, no pallor noted. There is no rash noted. Head: Normocephalic, atraumatic Eye: Normal conjunctiva, no drainage, EOMI. PERRL Ears, Nose, Mouth, and Throat: oral mucosa is moist, Mostly edentulous Cardiovascular: Regular Rate and Rhythm Pulse 96 on exam with no murmurs rubs or gallops Respiratory: Patient is in no distress, no accessory muscle use, lungs are clear to auscultation, no wheezing, rales or rhonchi Musculoskeletal: The Chetan wrap on the left lower extremity postop site was very loosely applied. This was taken down and the dressings over her surgical site were removed after a small amount of hydrogen peroxide was put onto the dressings to loosen any dried blood. There is dried blood on the medial dressing but no active bleeding. The incision sites are well approximated clean and dry with Xeroform dressing overlying them, there is no sign of infection or other notable abnormality. Patient's foot is warm and sensate, dorsalis pedis pulse is brisk. Calf muscles are soft with no erythema, induration, palpable cords or signs of DVT Neurological: A&O x4, normal speech Psychiatric: extremely anxious Constitutional Vital Signs, click to edit/add: Last Vital Signs Temp 97.9 F 12/22/23 00:44 Pulse 114 H 12/22/23 00:44 Resp 20 12/22/23 00:44 BP 120/84 12/22/23 00:44 Pulse Ox 95 12/22/23 00:44 O2 Del Method Room Air 12/22/23 00:44 Course Vital Signs Vital signs: Vital Signs Temperature 97.9 F 12/22/23 00:44 Pulse Rate 114 H 12/22/23 00:44 Respiratory Rate 20 12/22/23 00:44 Blood Pressure 120/84 12/22/23 00:44 Pulse Oximetry 95 12/22/23 00:44 Oxygen Delivery Method Room Air 12/22/23 00:44 Temperature 97.9 F 12/22/23 00:44 Pulse Rate 114 H 12/22/23 00:44 Respiratory Rate 20 12/22/23 00:44 Blood Pressure 120/84 12/22/23 00:44 Pulse Oximetry 95 12/22/23 00:44 Oxygen Delivery Method Room Air 12/22/23 00:44 Discharge Plan Discharge Stand Alone Forms: Portal Instructions Chief Complaint: Wound/Laceration Clinical Impression: Encounter for postoperative wound check, Post-op pain Patient Disposition: Home, Self-Care Time of Disposition Decision: :29 Condition: Good Prescriptions / Home Meds: No Action albuterol sulfate 90 mcg/actuation HFA aerosol inhaler 2 inh INHALATION Q6H PRN (Reason: shortness of breath or wheezing) alendronate 70 mg tablet 70 mg PO .weekly alprazolam 0.5 mg tablet 0.5 mg PO TID PRN (Reason: anxiety) dicyclomine 20 mg tablet 20 mg PO TID lisinopril 5 mg tablet 5 mg PO DAILY metoprolol succinate 100 mg tablet extended release 24 hr 100 mg PO DAILY methocarbamol 750 mg tablet 750 mg PO Q8H PRN (Reason: muscle spasm) pantoprazole 40 mg tablet,delayed release (DR/EC) 40 mg PO DAILY quetiapine 25 mg tablet 25 mg PO QPM quetiapine 50 mg tablet 50 mg PO QPM aspirin [Adult Low Dose Aspirin] 81 mg tablet,delayed release (DR/EC) 81 mg PO BID 30 Days Qty: 60 0RF cefadroxil 500 mg capsule 500 mg PO BID 7 Days Qty: 14 0RF oxycodone-acetaminophen [Percocet] 5-325 mg tablet 1 tab PO Q6H PRN (Reason: pain) 7 Days Qty: 28 0RF ondansetron 4 mg tablet,disintegrating 4 mg PO Q8H PRN (Reason: nausea and vomiting) 5 Days Qty: 15 0RF sennosides [Senna Laxative] 8.6 mg tablet 8.6 mg PO DAILY PRN (Reason: constipation) 7 Days Qty: 7 0RF tizanidine 2 mg tablet 2 mg PO TID PRN (Reason: muscle spasticity) 7 Days Qty: 21 0RF Print Language: Japanese Additional Instructions: Continue current post operative treatments and medications. Follow-up with Dr. Walsh as scheduled Referrals: BRAYAN GUERRA [Primary Care Provider] - 1 week Procedures ED Procedure Instructions Procedures Procedures: This patient's post op dressing was removed and replaced by myself, Including 4 x 4's and ABD pads that were cut to cover the operative sites and cushion her heel.And Chetan wrap was applied. The patient and her significant other were happy with the new dressing. She requested a different foods and a medium CAN boot was given to her, however this was much too large and she ultimately decided to stick with the small boot. She was encouraged to follow-up with Dr. Walsh later today for further evaluation and treatment.She was given 2 Percocet in the emergency department to use as needed for pain.
[2023-12-22] MEDS: OXYCODONE HCL/ACETAMINOPHEN 5MG/325MG 2 TAB PO (02:15)
--- NOTE | 2023-12-22 02:42 | PC.NURSE ---
patient stated during her visit that the boot that was given to her by Dr. Walsh is too small and rubs her incisions causing pain and bleeding. She asks if we have a larger walking boot that we can provide. A size medium walking boot is taken in to the patient and applied to the left foot after the new dressing is applied by Dr. Gao. Initially, the patient says it feels better and is not causing pain. After several minutes, she begins to cry and states it is pressing on the incision and causing pain. The velcro straps are resized and the patient attempts to stand but she states it is just too painful. Her first boot is reapplied, and again, she states it is too painful. During the process of switching between boots, despite educating the patient on the importance of maintaining non weight bearing of the left foot when not wearing a boot, she placed the foot on the floor and put full weight on both feet. She apologized, saying she knows she shouldn't do that. Patient is educated again on importance of not putting weight on that foot if not wearing a boot. It is suggested that she use a knee scooter or crutches until she is able to follow up with Dr. Walsh. it is suggested that she follow up later today since she is not able to follow his post op instructions and had to come to the ED right after surgery.
== END 2023-12-22 02:45 | disposition home or self-care (01) ==
PROVIDERS: Emergency Provider Emergency Medicine; PCP Student in an Organized Health Care Education/Training Program
DX: Z47.89 Encounter for other orthopedic aftercare (principal); G89.18 Other acute postprocedural pain; M25.572 Pain in left ankle and joints of left foot; M19.90 Unspecified osteoarthritis, unspecified site; G47.00 Insomnia, unspecified; F31.9 Bipolar disorder, unspecified; F43.10 Post-traumatic stress disorder, unspecified; K21.9 Gastro-esophageal reflux disease without esophagitis; J45.909 Unspecified asthma, uncomplicated; M41.9 Scoliosis, unspecified; I10 Essential (primary) hypertension; Z86.16 Personal history of COVID-19; Z87.01 Personal history of pneumonia (recurrent); Z96.7 Presence of other bone and tendon implants; M81.0 Age-related osteoporosis without current pathological fracture; Z98.891 History of uterine scar from previous surgery; Z98.890 Other specified postprocedural states; Z90.79 Acquired absence of other genital organ(s); Z90.710 Acquired absence of both cervix and uterus; F17.210 Nicotine dependence, cigarettes, uncomplicated; F12.90 Cannabis use, unspecified, uncomplicated; Z79.899 Other long term (current) drug therapy; Z92.89 Personal history of other medical treatment
CPT/HCPCS: 99283

== ENCOUNTER 2024-03-20 13:41 | Outpatient (OUT) | payer MEDICARE, MEDICAID, SELFPAY ==
--- NOTE | 2024-03-20 | XR_ITS ---
The [address] [address] Patient Name: NATHANIEL MARCIAL MRN: [id number] date: 1975 Sex: F Assigned Patient Location: Current Patient Location: Accession/Order Number: [id number] Exam Date: 03/20/2024 13:42 Report Date: 03/20/2024 15:38 At the request of: FRANCIS YOUNG Procedure: XR ankle LT min 3V PROCEDURE: XR ankle LT min 3V COMPARISON: 12/21/2023 HISTORY: LEFT ANKLE PAIN FINDINGS: BONES:No acute fracture or dislocation. Permeative pattern of the bones consistent with osteopenia. Degenerative changes with marginal osteophyte formation. Enthesopathic spurring of the calcaneus SOFT TISSUES:Mild soft tissue swelling EFFUSION:Moderate joint effusion OTHER: Negative. XR/XR ankle LT min 3V IMPRESSION: Soft tissue swelling and joint effusion No acute fracture Electronically authenticated by: GALE TERESA Date: 03/20/2024 15:38
== END 2024-03-20 13:42 | disposition home or self-care (01) ==
LOC: EC 13:41
PROVIDERS: PCP Student in an Organized Health Care Education/Training Program; Visit Provider Podiatrist Foot & Ankle Surgery
DX: M25.872 Other specified joint disorders, left ankle and foot (principal); M25.472 Effusion, left ankle
CPT/HCPCS: 73610

== ENCOUNTER 2024-10-08 12:35 | Outpatient (OUT) | payer MEDICARE, MEDICAID, SELFPAY ==
--- NOTE | 2024-10-08 12:50 | XR_ITS ---
The [address] [address] Patient Name: NATHANIEL MARCIAL MRN: [id number] date: 1975 Sex: F Assigned Patient Location: [facility] Current Patient Location: Accession/Order Number: [id number] Exam Date: 10/08/2024 12:40 Report Date: 10/09/2024 05:09 At the request of: FRANCIS YOUNG Procedure: XR foot RT min 3V PROCEDURE: XR foot RT min 3V HISTORY: Pain ; acute right 5th toe pain COMPARISON: None. FINDINGS: BONES:Oblique, nondisplaced fractures of the 5th proximal phalanx at the proximal diametaphyseal junction. SOFT TISSUES:No visible soft tissue swelling. EFFUSION:None visible. OTHER: Negative. XR/XR foot RT min 3V IMPRESSION: 1. Acute nondisplaced fractures of the 5th proximal phalanx. Electronically authenticated by: WILIAN CONTRERAS Date: 10/09/2024 05:09
== END 2024-10-08 12:36 | disposition home or self-care (01) ==
LOC: RAD 12:35
PROVIDERS: PCP Student in an Organized Health Care Education/Training Program; Visit Provider Podiatrist Foot & Ankle Surgery
DX: M79.671 Pain in right foot (principal); S92.514A Nondisplaced fracture of proximal phalanx of right lesser toe(s), initial encounter for closed fracture
CPT/HCPCS: 73630

== ENCOUNTER 2024-11-27 12:45 | Outpatient (OUT) | payer MEDICARE, MEDICAID, SELFPAY ==
--- NOTE | 2024-11-27 12:48 | XR_ITS ---
The [place] [id number] Patient Name: NATHANIEL MARCIAL MRN: [id number] date: 1975 Sex: F Assigned Patient Location: [facility] Current Patient Location: [facility] Accession/Order Number: [id number] Exam Date: 11/27/2024 23:19 Report Date: 11/27/2024 23:20 At the request of: FRANCIS YOUNG DPPrerna Procedure: XR foot RT min 3V RIGHT FOOT - 3 views CLINICAL HISTORY: Follow-up right fifth toe fracture. COMPARISON: Right foot 10/08/2024 FINDINGS: Proximal phalanx fracture of the fifth digit grossly unchanged alignment with interval sclerosis suggestive of healing response. No new fractures are seen. No focal soft tissue abnormality. XR/XR foot RT min 3V IMPRESSION: HEALING PROXIMAL PHALANX FIFTH DIGIT FRACTURE. Impression dictated by: Shree Sandra Jr., D.O.11/27/2024 11:20 PM Dictation Location: [employer] Electronically authenticated by: [id number] Y Date: 11/27/2024 23:20
== END 2024-11-27 12:46 | disposition home or self-care (01) ==
LOC: RAD 12:45
PROVIDERS: PCP Student in an Organized Health Care Education/Training Program; Visit Provider Podiatrist Foot & Ankle Surgery
DX: M79.671 Pain in right foot (principal); S92.514D Nondisplaced fracture of proximal phalanx of right lesser toe(s), subsequent encounter for fracture with routine healing
CPT/HCPCS: 73630

== ENCOUNTER 2025-02-23 12:02 | Emergency (ER) | payer MEDICARE, MEDICAID, SELFPAY ==
--- OUTSIDE RECORDS SUMMARY | 2024-07-03 09:00 | XMS_ITS ---
Author Organization [facility] in [place] Address [address] [place] [address] Care Team Providers Care Arterial Embalmer Name Role Phone Gracy Medina MD Primary Care Provider Ej Monsivais [phone] REASON FOR VISIT 6 week f/u Encounters Encounter Location Date Provider Diagnosis [facility] (PODIATRY) [address] [place] [address] [place] [address] 07/03/2024 Ej Walsh Plan Of Treatment No Information Progress Notes * Abeba MARCIALDOB:1975 (49 yo F)Acc No.[id number]:07/03/2024 UNLOCKED PROGRESS NOTE Follow Up Patient: Abeba VALADEZ Provider: Jean Pierre Walsh DPM, MS :1975 A ge:48 Y S ex:Female Date:07/03/2024 Address:[address], [place], [id number] Pcp:Gracy Medina MD Subjective: * Chief Complaints: * 1 . 6 week f/u. * Medical History: Objective: * Vitals: Assessment: Plan: * Treatment: * * Electronic signature of Gio Walsh DPM on 02/23/2025 at 12:09 PM EDT Sign off status: Pending Visit Status: N /S N/C (No Show/No Charge) * Provider: Jean Pierre Walsh DPM, MS Date: 1 Generated for Kala wilson/Nathaly/Enrique on: 0 02/23/2025 12:09 PM EDT
--- OUTSIDE RECORDS SUMMARY | 2024-10-08 09:15 | XMS_ITS ---
Author Organization The [facility] in [place] Address [address] [place] [address] Care Team Providers Care [employer] Team Member Name Role Phone Gracy Medina MD Primary Care Provider Ej Monsivais [phone] Allergies Allergen (clinical drug ingredient) Drug/Non Drug Allergy documented on EMR Reaction Allergy Type Onset Date Status bacitracin Bacitracin Unknown Drug Allergy Activ e lamotrigine Lamotrigine Unknown Drug Allergy Act anil vancomycin Vancomycin Unknown Drug Allergy Activ e REASON FOR VISIT rt pinky toe stubbed, thinks its broken Medications Medication SIG (Take, Route, Frequency, Duration) Notes Start Date End Date Status SEROquel Active Ventolin HFA Active Robaxin Active Protonix Active Metoprolol & Diet Manage Prod Active Alendronate Sodium A ctive ALPRAZolam Active Social History Tobacco Use: Social History Observation Description Date Details (start date - stop date) Current Smoker NA - NA Tobacco Use/Smoking Question Answer Notes Patient is a current smoker Vital Signs Heart Rate 85 /min 10/08/2024 Height 59 in 10/08/2024 Weight 148 lbs 10/08/2024 BMI 29.89 kg/m2 10/08/2024 Oximetry 97 % 10/08/2024 Encounters Encounter Location Date Provider Diagnosis [facility] (PODIATRY) [address] [place] [address] [place] [address] 10/08/2024 Ej Walsh Right foot pain M79.671 and Displaced unspecified fracture of right lesser toe(s), initial encounter for closed fracture S92.501A Assessments Encounter Date Diagnosis (ICD Code) Assessment Notes Treatment Notes Treatment Clinical Notes Section Notes 10/08/2024 Right foot pain (ICD-10 - M79.671) 10/08/2024 Displaced unspecified fracture of right lesser toe(s), initial encounter for closed fracture (ICD-10 - S92.501A) Patient seen and evaluated. Patient education provided. X-ray does confirm fracture of the proximal phalanx of the fifth toe. I recommended weightbearing as tolerated in surgical shoe which was fitted and dispensed today. OTC pain medicine as needed. Ice elevation and rest are recommended. Patient will follow-up in 6 weeks call sooner if neededI would like weightbearing foot x-rays at next appointment Plan Of Treatment Treatment Notes Assessment Notes Displaced unspecified fractu re of right lesser toe(s), initial encounter for closed fracture Patient seen and evaluated. Patient education provided. X-ray does confirm fracture of the proximal phalanx of the fifth toe. I recommended weightbearing as tolerated in surgical shoe which was fitted and dispensed today. OTC pain medicine as needed. Ice elevation and rest are recommended. Patient will follow-up in 6 weeks call sooner if neededI would like weightbearing foot x-rays at next appointment Pending Test Test Name Order Date XR Foot RT (3 views) * 10/08/2024 Progress Notes * Abeba MARCIALDOB:1975 (48 yo F)Acc No.[id number]:10/08/2024 Follow Up Patient: Abeba VALADEZ Provider: Jean Pierre Walsh DPM, MS :1975 A ge:48 Y S ex:Female Date:10/08/2024 Address:[address] [place] [address] , [address] [place], [id number] Pcp:Gracy Medina MD Check In:01:01 PM ESTCheck O ut:01:48 PM EST Subjective: * Chief Complaints: * R t pinky toe stubbed, thinks its broken * HPI: G eneral: Pt injured right 5th toe on 10/04/24, 4 days ago, stubbed on metal bed frame. Pain constant /, some bruising and swelling noted. Unable to get nornal shoe on, wears slipper to this foot. * ROS: G eneral/Constitutional: Chills d enies. F ever d enies. W eight gain?denies. W eight loss d enies. S kin: Skin Ulcers d enies. S kin lesion(s) d enies. ? C ardiovascular: Difficulty breathing on exertion d enies. L eg cramps?denies. E penny d enies. C hest pain d enies. R espiratory: Difficulty breathing d enies. D yspnea d enies.?Cough d enies. G astrointestinal: Diarrhea d enies. N ausea d enies. V omiting?denies. M usculoskeletal: Bone/Joint Symptoms d enies. C half-way Pain d enies.?Leg cramps d enies. N eurologic: Numbness d enies. T ingling d enies . G ait abnormality d enies. ? H ematology: Anemia D enies. E asy bruising d enies. ? A ll Other Systems: Review of Systems (ROS) S ee HPI for details,All others negative except those mentioned in HPI. * Active Problem List S82.852S Displaced trimalleol ar fracture of left lower leg, sequela Modified On:12/27/2023U Status:confirmed S82.852A Closed displaced tri malleolar fracture of left ankle Modified On:06/07/2023U Status:confirmed L03.116 Cellulitis of left l ower limb Modified On:06/07/2023U Status:confirmed M85.872 Other specified diso rders of bone density and structure, left ankle and foot Modified On:12/22/2023/U Status:confirmed M79.672 Left foot pain Modified On:12/27/2023U Status:confirmed Z96.9 Presence of function al implant, unspecified Modified On:12/27/2023U Status:confirmed M25.872 Other specified join t disorders, left ankle and foot Modified On:08/02/2023U Status:confirmed M25.372 Other instability, l eft ankle Modified On:12/27/2023U Status:confirmed G57.92 Unspecified mononeur opathy of left lower limb Modified On:02/06/2024W/U Status:confirmed M79.671 Right foot pain Modified On:10/07/2024W/U Status:confirmed * Medical History: * Surgical History: l eft ankle surgery ORIF Dr. Nate Prince 11/12/22Multiple hernia repairs left ankle arthroscopic, joint debridment, hardware removal, peroneal tendon 12/21/23 * Hospitalization/Major Diagno stic Procedure: N o Hospitalization History. * Family History: F ather: diagnosed with Other malignant neoplasm of unspecified site. * Social History: T obacco Use: T obacco Use/Smoking P ladi is a c urrent smoker * Medications: T akingAlendronate Sodium ALPRAZolam Metoprolol & Diet Manage Prod Protonix(Pantoprazole Sodium) Robaxin SEROquel Ventolin HFA Taking Alendronate Sodium Taking ALPRAZolam Taking Metoprolol & Diet Manage Prod Taking Protonix(Pantoprazole Sodium) Taking Robaxin Taking SEROquel Taking Ventolin HFA DiscontinuedMeloxicam Pregabalin 75 MG Capsule 1 capsule Orally BID Pregabalin 75 MG Capsule 1 capsule in the evening 1 to 3 hours before bedtime Orally Once a day Singulair Vicodin ZyrTEC Medication List reviewed and reconciled with the patientDiscontinued Meloxicam Discontinued Pregabalin 75 MG Capsule 1 capsule Orally BID Discontinued Pregabalin 75 MG Capsule 1 capsule in the evening 1 to 3 hours before bedtime Orally Once a day Discontinued Singulair Discontinued Vicodin Discontinued ZyrTEC Medication List reviewed and reconciled with the patient * Allergies: V ancomycinBacitracinLamotrigineno[Allergies Verified] Objective: * Vitals: W t:148lbs, Ht: 59 in, HR:85/min, BMI:29.89Index, Pain scale:71-10, Oxygen sat %:97%, Ht-cm: 149.86 cm, Wt-k.13 kg. * Examination: P odiatry Examination: SKIN: s kin intact, n o sign of infection. MUSCULOSKELETAL: S trength and range of motion were deferred due to known fracture. Fifth toe with mild adductovarus deformity which is swollen and bruised.? NEUROLOGICAL: l ight touch sensation intact, n egative tinel's sign. VASCULAR: P edal pulses palpable, C apillaryrefill is brisk to toe, absent digital hair and significant swelling of fifth toe. X -rays: x-rays were obtained & reviewed in my office. Mildly displaced proximal phalanx fracture of the fifth toe. All other cortices are intact. Assessment: * Assessment: 1. D isplaced unspecified fracture of right lesser toe(s), initial encounter for closed fracture - S92.501A (Primary) 2 . R ight foot pain - M79.671 Plan: * Treatment: 2. R ight foot pain I maging: XR Foot RT (3 views) * * Procedure Codes: * * Sign off status: Completed Visit Status: Walter GRANDE (Check Out) true * Provider: Jean Pierre Walsh DPM, MS Date: 0 10/08/2024 Generated for Kala wilson/Nathaly/Johnransmitting on: 0 02/23/2025 12:10 PM EDT History and Physical Notes * HPI (History of Present Illness) Category Sub-Category Detail Notes Category Not es General Pt injured righ t 5th toe on 10/04/24, 4 days ago, stubbed on metal bed frame. Pain constant 7/10, some bruising and swelling noted. Unable to get nornal shoe on, wears slipper to this foot. Examination Category Sub-Category Detail Notes Category Not es Podiatry Examination SKIN: skin intact, no sign of infection X-rays: x-rays were obtained & reviewed in my office. Mildly displaced proximal phalanx fracture of the fifth toe. All other cortices are intact MUSCULOSKELETAL: Strength and range o f motion were deferred due to known fracture. Fifth toe with mild adductovarus deformity which is swollen and bruised NEUROLOGICAL: light touch sensatio n intact, negative tinel's sign VASCULAR: Pedal pulses palpable, Capillary refill is brisk to toe, absent digital hair and significant swelling of fifth toe
[2025-02-23 12:07] VITALS: BP 154/87; PULSE 91; TEMP 36.7; O2SAT 97; BMI 27.7
--- OUTSIDE RECORDS SUMMARY | 2025-02-23 12:09 | XMS_ITS | Clinical Summary ---
Author Organization [facility] Address [address] [place] [address] Care Team Providers Care Solutions Architect Consultant Name Role Phone Gracy Medina MD Primary Care Provider [phone] Gracy Medina MD Unavailable [phone] Allergies Active Allergy Reactions Criticality Noted Date Comments Bacitracin 07/06/2004 Lamotrigine Mental Status Change High 03/30/2023 Vancomycin 05/16/2004 Medications OXcarbazepine (TRILEPTAL) 600 mg tablet Take 600 mg by mouth twice daily. Active OMEPRAZOLE (PRILOSEC ORAL) Take 40 mg by mouth once daily. Active busPIRone (BUSPAR) 5 mg tablet Take 30 mg by mouth twice daily. Active varenicline (CHANTIX) 1 mg tablet Take 1 mg by mouth twice daily. Active plecanatide (TRULANCE) 3 mg tab Take by mouth. Active gabapentin (NEURONTIN) 100 mg capsule Take 100 mg by mouth three times daily. Active LINZESS 145 mcg capsule TAKE 1 CAPSULE DAILY AT LEAST 30 MINUTES BEFORE THE FIRST MEAL OF THE DAY ON AN EMPTY STOMACH 09/15/2020 Active dicyclomine (BENTYL) 20 mg tablet Take 20 mg by mouth. 11/11/2012 Active docusate sodium (COLACE) 100 mg capsule Take 1 capsule by mouth twice daily. 14 capsule 04/19/2021 Active benztropine (COGENTIN) 1 mg tablet Take 1 tablet by mouth twice daily. 04/19/2021 Active QUEtiapine (SEROQUEL) 300 mg tablet Take 1 tablet by mouth twice daily at 6AM and 9PM. 04/19/2021 Active acetaminophen (TYLENOL) 500 mg tablet Take 2 tablets by mouth every 6 hours. 04/19/2021 Active magnesium hydroxide (MOM) 400 mg/5 mL suspension Take 30 mL by mouth twice daily. 04/19/2021 Active metoprolol succinate ER (TOPROL XL) 50 mg 24 hr tablet TAKE 1 TABLET BY MOUTH EVERY DAY FOR 90 DAYS 07/14/2022 Active ALPRAZolam (XANAX) 0.5 mg tablet Take 0.5 mg by mouth. 11/12/2022 Active budesonide-form oterol (SYMBICORT) 160-4.5 mcg/actuation inhaler INHALE 2 PUFFS BY MOUTH TWICE A DAY *RINSE MOUTH AFTER USE* 11/01/2022 Active Active Problems Problem Noted Date Diagnosed Date Avascular necrosis of right humeral head 023 Incisional hernia, without obstruction or gangre ne 07/08/2021 Nicotine use disorder, F17.2 04/19/2021 Post-operative state 04/19/2021 Abdominal pain 04/16/2021 Cellulitis 11/13/2015 Immunizations Immunization Administration Dates Next Due COVID-19 original vaccine, a ge 12+ yr, monovalent ([employer] - PURPLE TOP) 02/08/2021,01/18/2021 influenza (IIV3) vaccine, tr ivalent (AFLURIA, FLULAVAL, FLUVIRIN, FLUZONE) 06/12/2015 influenza (IIV3) vaccine, tr ivalent, PF, intradermal (FLUZONE INTRADERMAL) 06/10/2019 influenza vaccine, unspecified formulation 06/25 pneumococcal polysaccharide (PPV23) vaccine, 23 valent (PNEUMOVAX 23) 08/06/2019 Social History Tobacco Use Types Packs/Day Years Used Date Smoking Tobacco: Some Days Smokeless Tobacco: Never Tobacco Cessation:Ready to Q uit: Not Asked; Counseling Given: Not Answered Area Deprivation Index Answer Date José Luis rded National Score (1-100), lower number is lower ri sk 87 03/27/2023 State Score (1-10), lower number is lower risk 8 03/27/2023 Data from: https://www.neighborhoodatlas.medicine.[facility]/. Last address used for calculation [address] 03/27/2023 Comments No Sex and Gender Information Value Date Recorded Sex Assigned at Not on file Legal Sex Female 9:50 AM EST Gender Identity Not on file Sexual Orientation Not on file Last Filed Vital Signs Vital Sign Reading Time Taken Comments Blood Pressure 125/89 07/28/2022 10:58 AM EDT Pulse 90 07/28/2022 10:58 AM EDT Temperature 36.6 C (97.8 F) 07/28/2022 10:58 AM EDT Respiratory Rate 12 07/28/2022 10:58 AM EDT Oxygen Saturation 93% 04/19/2021 9:06 AM EDT Inhaled Oxygen Concentration - - Weight 59 kg (130 lb) 03/30/2023 10:59 AM EDT Height 149.9 cm (4' 11 ) 03/30/2023 10:59 AM EDT Body Mass Index 26.26 03/30/2023 10:59 AM EDT Plan of Treatment Health Maintenance Due Date Last Done Comments Anxiety Screening 1992 Depression Screening 1992 Hepatitis B Vaccine (1 of 3 - 19+ 3-dose series) 1993 Cervical Cancer Screening [address] Colonography 2019 Cologuard (FIT-DNA) 2019 Colonoscopy 2019 Colorectal Cancer Screening 2019 Fecal Occult Blood 2019 Lipid Screening 2019 Sigmoidoscopy 2019 Pneumococcal Vaccine: 50+ (2 of 2 - PCV) 08/06/2020 08/06/2019 Diabetes Screening 04/18/2024 04/18/2021, 0 04/17/2021, 04/13/2021, Additional history exists Covid-19 Vaccine (3 - 2023-2 5 season) 2024 02/08/2021, 01/18/2021 Shingrix Vaccine (1 of 2) 2024 Influenza Vaccine (Season Ended) 2025 06/10/2019, 06/25/2015, 06/12/2015 DTaP,Tdap,Td Vaccine (3 - Td or Tdap) 08/02/2032 08/02/2022, 08/02/2022 HIV Screening Completed 04/16/2021 Hepatitis C Screening Completed 04/16/2021 Medical Devices Implanted Type Area Fitness Coordinator Device Identifier Shelf Expiration Date Model / Serial / Lot Mesh Prolene Polypropylene 6x4in Surgical Patch Soft Flat Sterile Hernia - [id number] Implanted:Qty: 1 on 10/21/[address] [facility] Mesh N/A: Abdomen [employer] 06/21/2020 [id number] / / [id number] Procedures Procedure Name Priority Date/Time Associated Diagnosis Comments BASIC METABOLIC PANEL STAT 04/18/2021 1:10 AM EDT OCCUPATIONAL HEALTH EXPOSURE PROFILE/PATIENT STAT 04/16/2021 11:50 AM EDT from Last 3 Months or Most Recently Relevant to Health Maintenance Results * (ABNORMAL) BASIC METABOLIC PNL (04/18/2021 1:10 AM EDT) [facility] Glucose 96 74 - 99 mg/dL 04/18/2021 2:[address] [facility] Comment: The [place] Diabetes Association (ADA) provides guidance for cutoff values for fasting glucose and random glucose. The ADA defines fasting as no caloric intake for at least 8 hours. Fasting plasma glucose results between 100 to 125 mg/dL indicate increased risk for diabetes (prediabetes). Fasting plasma glucose results greater than or equal to 126 mg/dL meet the criteria for diagnosis of diabetes. In the absence of unequivocal hyperglycemia, results should be confirmed by repeat testing. In a patient with classic symptoms of hyperglycemia or hyperglycemic crisis, random plasma glucose results greater than or equal to 200 mg/dL meet the criteria for diagnosis of diabetes. Reference: Standards of Medical Care in Diabetes 2016, [place] Diabetes Association. Diabetes Care. 2016.39(Suppl 1). BUN 8 7 - 21 mg/dL 04/18/2021 2:[address] [facility] Creatinine 0.61 0.58 - 0.96 mg/dL 04/18/2021 2:[address] [facility] Sodium 140 136 - 144 mmol/L 04/18/2021 2:[address] [facility] Potassium 3.9 3.7 - 5.1 mmol/L 04/18/2021 2:[address] [facility] Chloride 103 97 - 105 mmol/L 04/18/2021 2:45 AM EDT [facility] CO2 30 22 - 30 mmol/L 04/18/2021 2:45 AM EDT [facility] Anion Gap 7(L) 9 - 18 mmol/L 04/18/2021 2:45 AM EDT [facility] Calcium 8.5 8.5 - 10.2 mg/dL 04/18/2021 2:45 AM EDT [facility] eGFR- >60 04/18/2021 2:45 AM EDT [facility] eGFR-All Other Races >60 . 04/18/2021 2:45 AM EDT [facility] Comment: eGFR (Estimated GFR) Units of measure: mL/min/1.73 meters squared eGFR is derived from the reexpressed MDRD Study equation using the following parameters: serum creatinine, age, gender and race. The creatinine assay has been calibrated to be traceable to IDMS. An eGFR <60 mL/min/1.73m2 for >3 months is consistent with chronic kidney disease. Refer to KDOQI guidelines for clinical interpretation. In patients with unstable renal function, e.g. those with acute kidney injury, the eGFR may not accurately reflect actual GFR. Blood BLOOD SPECIMEN / Unknown 04/18/2021 1:10 AM EDT 04/18/2021 1:11 AM EDT Ronan Pardo MD LABORATORY Fin al Result [facility] [address] [facility] [place] [address] [facility] [address] [place] [address] * OCCUPATIONAL HEALTH EXPOSURE PROFILE/PATIENT (04/16/2021 11:50 AM EDT) HBsAg Negative Negative 04/16/2021 8:00 PM EDT [facility] HIV 12 Combo (Ag/Ab) Non Reactive Non Reactive 04/16/2021 10:50 PM EDT [facility] HIV-1/2 AB Test Not Indicated 04/16/2021 10:50 PM EDT [facility] HIV Interpretation Negative 04/16/2021 10:50 PM EDT [facility] Comment: No evidence of HIV-1 or HIV-2 infection. Should recent infection be suspected, repeat testing may be considered 2-3 weeks after this draw. HIV Information: [place] Rev. Code 3701.243(E): This information has been disclosed to you from confidential records protected from disclosure by state law. You shall make no further disclosure of this information without the specific, written, and informed release of the individual to whom it pertains or as otherwise permitted by state law. A general authorization for the release of medical or other information is not sufficient for the purpose of the release of HIV test results or diagnoses. Hep C Antibody IA Negative Negative 021 8:00 PM EDT [facility] HIV, Rapid ([employer]) Non Reactive Non Reactive 04/16/2021 12:39 PM EDT [facility] Comment: Called to and read back by: [facility] [phone] Negative for HIV-1 and HIV-2 antibodies. A non-reactive result does not preclude the possibility of exposure to HIV or infection with HIV. An antibody response to recent exposure may take several weeks to reach detectable levels with this assay. Performed by the [employer] [facility] Rapid HIV-1/2 Antibody Test. HIV Information: [place] Rev. Code 3701.243(E): This information has been disclosed to you from confidential records protected from disclosure by state law. You shall make no further disclosure of this information without the specific, written, and informed release of the individual to whom it pertains or as otherwise permitted by state law. A general authorization for the release of medical or other information is not sufficient for the purpose of the release of HIV test results or diagnoses. OTHER / Unknown 04/16/2021 1 1:50 AM EDT 04/16/2021 12:05 PM EDT Comment:SERUM~BLOOD, WHOLE Yris Israel MEMBERSHIP COORDINATOR.[facility] Final Result [facility] [address] [place] [address] [facility] [address] [place] [address] from Last 3 Months or Most Recently Relevant to Health Maintenance Insurance MEDICARE Member Subscriber Plan / Payer (Ef fective 2015-Present) Name:Abeba Elam Member ID:[id number] Relation to Subscriber:Self Name:Abeba Elam Subscriber ID:[id number] Payer ID:Not on file Group ID:Not on file Type:Medicare Address: [address] [id number] [place]ICA[place] Care Teams Solutions Architect Consultant Relationship Specialty Start Date End Date Gracy Medina MD [address] [place] [address] PCP - General Family Medicine 04/11/21 Gracy Medina MD [address] [place] [address] Referring Family Medicine 03/07/23
--- OUTSIDE RECORDS SUMMARY | 2025-02-23 12:09 | XMS_ITS | Encounter Summary ---
Author Organization [facility] Address [facility] [place] [address] Care Team Providers Care Claims Sorter Name Role Phone Nielsen APRIL Qamar BETH Primary Care Provider Gracy Medina MD Primary Care Provider [phone] Gracy Medina MD Unavailable [phone] Source Comments In the event this information is protected by the Federal Confidentiality of Alcohol and Drug AbusePatient Records regulations: The Federal rules restrict any use of the information to criminally investigate or prosecute any alcohol or drug abuse patient.[facility] Encounter Details Date Type Department Care Team (Late st Contact Info) Description 11/13/2015 Abstract General Surgery [address] [id number] Wicho Link MD [address] [place] [address] Social History Tobacco Use Types Packs/Day Years Used Date Smoking Tobacco: Never Assessed Comments No Sex and Gender Information Value Date Recorded Sex Assigned at Not on file Legal Sex Female 9:50 AM EST Gender Identity Not on file Sexual Orientation Not on file documented as of this encounter Functional Status * Are you deaf or do you have serious difficulty hearing? Answer Date of Assessment Author No 10/23/2015 12:11 PM Kalpana Crawley RN * Are you blind or do you have serious difficulty seeing, even when wearing glasses? Answer Date of Assessment Author No 10/23/2015 12:11 PM Kalpana Crawley RN * Do you have serious difficulty walking or climbing stairs? Answer Date of Assessment Author No 10/23/2015 12:11 PM Kalpana Crawley RN * Do you have difficulty dressing or bathing? Answer Date of Assessment Author No 10/23/2015 12:11 PM Kalpana Crawley RN * Because of a physical, mental, or emotional condition, do you have difficulty doing errands alone such as visiting a doctor's office or shopping? Answer Date of Assessment Author No 10/23/2015 12:11 PM Kalpana Crawley RN documented as of this encounter Mental Status * Because of a physical, mental, or emotional condition, do you have serious difficulty concentrating, remembering, or making decisions? Answer Entry Date Author No 10/23/2015 12:11 PM Kalpana Crawley RN documented in this encounter Plan of Treatment Not on file documented as of this encounter Visit Diagnoses Diagnosis Cutaneous abscess of abdominal wall- Primary Cellulitis and abscess of trunk documented in this encounter Care Teams Claims Sorter Relationship Specialty Start Date End Date Qamar Nielsen III, DO PCP - General Family Medicine 06/24/15 04/10/21 Gracy Medina MD [address] [place] [address] PCP - General Family Medicine 04/11/21 Gracy Medina MD [address] [place] [address] Referring Family Medicine 03/07/23 documented as of this encounter
--- OUTSIDE RECORDS SUMMARY | 2025-02-23 12:10 | XMS_ITS | Encounter Summary ---
Author Organization [facility] Address [address] [place] [address] Care Team Providers Care Proposal Writer Name Role Phone Gracy Medina MD Unavailable [phone] Unallocated, Noms Provider Primary Care Provi cinthya Reason for Visit * Reason Comments Med Refill Encounter Details Date Type Department Care Team (Late st Contact Info) Description 09/11/2024 Refill [facility] [address] [place] [id number] Gracy Medina MD [address] [place] [address] Gastro-esophageal reflux disease without esophagitis Social History Tobacco Use Types Packs/Day Years Used Date Smoking Tobacco: Every Day Cigarettes Alcohol Use Standard Drinks/Week Comments Yes 1 (1 standard drink = 0.6 oz pure alcohol) Caffeine intake : 3-4 cups per day B1300 Health Literacy Answer Date Recor ded How often do you need to hav e someone help you when you read instructions, pamphlets, or other written material from your doctor or pharmacy? Sometimes 06/24/2024 Humiliation, Afraid, Rape, and Kick questionnair e Answer Date Recorded Within the last year, have y ou been afraid of your partner or ex-partner? No 02/23/2023 Within the last year, have y ou been humiliated or emotionally abused in other ways by your partner or ex-partner? Yes Within the last year, have y ou been kicked, hit, slapped, or otherwise physically hurt by your partner or ex-partner? No 02/23/2023 Within the last year, have y ou been raped or forced to have any kind of sexual activity by your partner or ex-partner? No 02/23/2023 Social Connection and Isolat ion Panel [NHANES] Answer Date Recorded In a typical week, how many times do you talk on the phone with family, friends, or neighbors? More than three times a week 06/24/2024 How often do you get togethe r with friends or relatives? Three times a week 06/24/2024 How often do you attend chur or oriental orthodox services? Never 06/24/2024 Do you belong to any clubs o r organizations such as baptist groups, unions, fraternal or athletic groups, or school groups? No 06/24/2024 How often do you attend meet ings of the clubs or organizations you belong to? Never 06/24/2024 Are you , , di vorced, , never , or living with a partner? 06/24/2024 AUDIT-C Answer Date Recorded Q1: How often do you have a drink containing alc ohol? 2-3 times a week 06/24/2024 Q2: How many drinks containi ng alcohol do you have on a typical day when you are drinking? 1 or 2 06/24/2024 Q3: How often do you have si x or more drinks on one occasion? Less than monthly 06/24/2024 Overall Financial Resource Strain (CARDIA) Answe r Date Recorded How hard is it for you to pa y for the very basics like food, housing, medical care, and heating? Very hard 06/24/2024 PHQ-2 Answer Date Recorded Patient Health Questionnaire-2 Score 4 06/24/2024 [facility] [place] of Occupat ional Health - Occupational Stress Questionnaire Answer Date Recorded Do you feel stress - tense, restless, nervous, or anxious, or unable to sleep at night because your mind is troubled all the time - these days? Very much 06/24/2024 Exercise Vital Sign Answer Date Recorde d On average, how many days pe r week do you engage in moderate to strenuous exercise (like a brisk walk)? 0 days 06/24/2024 On average, how many minutes do you engage in exercise at this level? 0 min 06/24/2024 Hunger Vital Sign Answer Date Recorded Within the past 12 months, y ou worried that your food would run out before you got the money to buy more. Sometimes true Within the past 12 months, t he food you bought just didn't last and you didn't have money to get more. Often true PRAPARE - Transportation Answer Date Re corded In the past 12 months, has l ack of transportation kept you from medical appointments or from getting medications? Yes 05/28 In the past 12 months, has l ack of transportation kept you from meetings, work, or from getting things needed for daily living? Yes 06/24/2024 Housing Stability Vital Sign Answer Gonzalez e Recorded In the last 12 months, was t here a time when you were not able to pay the mortgage or rent on time? No 02/23/2023 In the last 12 months, how many places have you lived? 1 02/23/2023 In the last 12 months, was t here a time when you did not have a steady place to sleep or slept in a fci (including now)? No 02/23/2023 Housing Stability Vital Sign Answer Gonzalez e Recorded In the last 12 months, was t here a time when you were not able to pay the mortgage or rent on time? No 06/24/2024 Number of Times Moved in the Last Year Not on fi le 06/24/2024 At any time in the past 12 m [facility], were you homeless or living in a fci (including now)? No 06/24/2024 Comments Unknown Sex and Gender Information Value Date Recorded Sex Assigned at Not on file Legal Sex Female 6:58 PM EDT Gender Identity Not on file Sexual Orientation Not on file documented as of this encounter Plan of Treatment Not on file documented as of this encounter Visit Diagnoses Diagnosis Gastro-esophageal reflux disease without esophagitis documented in this encounter Care Teams Proposal Writer Relationship Specialty Start Date End Date Gracy Medina MD [address] [place] [address] PCP - ACO Reach 02/16/23 Unallocated, Noms Provider, [address] [place] [address] PCP - General Family Medicine 06/26/24 documented as of this encounter
--- OUTSIDE RECORDS SUMMARY | 2025-02-23 12:10 | XMS_ITS | Clinical Summary ---
Author Organization [facility] Address [id number] [address] [place] [address] Care Team Providers Care Pharmacy Tech Name Role Phone Gracy Medina MD Primary Care Provider Allergies Active Allergy Reactions Criticality Noted Date Comments Bacitracin 08/24/2023 Clindamycin Diarrhea 09/27/2023 Lamotrigine 08/24/2023 Vancomycin 08/24/2023 Medications QUEtiapine (SEROquel) 50 mg tablet Take 1.5 tablets (75 mg total) by mouth nightly. Active pantoprazole (PROTONIX) 40 mg EC tablet Take 1 tablet (40 mg total) by mouth in the morning. Active metoprolol succinate XL (TOPROL XL) 100 mg 24 hr tablet Take 1 tablet (100 mg total) by mouth in the morning. Active ALPRAZolam (NIRAVAM) 0.5 MG disintegrating tablet Dissolve 1 tablet (0.5 mg total) on tongue 3 (three) times a day as needed for anxiety. Active alendronate (FOSAMAX) 70 mg tablet Take 1 tablet (70 mg total) by mouth every 7 days. In a.m. with water on empty stomach, nothing else by mouth and remain upright for 30min Active Social History Tobacco Use Types Packs/Day Years Used Date Smoking Tobacco: Every Day Cigarettes 0.5 36 Smokeless Tobacco: Never Tobacco Cessation:Ready to Q uit: Not Asked; Counseling Given: Not Answered Alcohol Use Standard Drinks/Week Comments Not Asked 0 (1 standard drink = 0.6 oz pur e alcohol) occasionally Childcare Answer Date Recorded Childcare Unknown 03/06/2019 Employment Answer Date Recorded Employment Unknown 03/06/2019 Hunger Screening Answer Date Recorded Within the past 12 months we worried whether our food would run out before we got money to buy more. Never True 08/24/2023 Within the past 12 months th e food we bought just didn't last and we didn't have money to get more. Never True 08/24/2023 Comments No Sex and Gender Information Value Date Recorded Sex Assigned at Not on file Legal Sex Female 12:05 PM EDT Gender Identity Not on file Sexual Orientation Not on file Last Filed Vital Signs Vital Sign Reading Time Taken Comments Blood Pressure 148/94 08/24/2023 6:55 PM EST Pulse 89 08/24/2023 6:55 PM EST Temperature 36.5 C (97.7 F) 08/24/2023 6:55 PM EST Respiratory Rate 17 08/24/2023 6:55 PM EST Oxygen Saturation 95% 08/24/2023 6:55 PM EST Inhaled Oxygen Concentration - - Weight 63.5 kg (140 lb) 08/24/2023 6:55 PM EST Height 149.9 cm (4' 11 ) 08/24/2023 6:55 PM EST Body Mass Index 28.28 08/24/2023 6:55 PM EST Plan of Treatment Health Maintenance Due Date Last Done Comments Depression Screening 1986 COVID-19 Vaccine (3 - 2023-2 5 season) 2024 02/08/2021, 01/18/2021 Adult BMI Screening 08/24/2024 08/24/2023 Tobacco Screening 08/24/2024 08/24/2023 Zoster (Shingles) Vaccine (1 of 2) 2024 Influenza Vaccine 05/26/2025 06/10/2019, , 06/12/2015 DTaP,Tdap and Td Vaccines (3 - Td or Tdap) 08/02/2032 08/02/2022, 08/02/2022 Medical Devices [place] [place] [address] MEDICARE MEDICAID [place] Care Teams Pharmacy Tech Relationship Specialty Start Date End Date Gracy Medina MD PCP - General Family Medicine 08/24/23
--- OUTSIDE RECORDS SUMMARY | 2025-02-23 12:10 | XMS_ITS | Encounter Summary ---
Author Organization [facility] Address [address] [place] [address] Care Team Providers Care Senior Storage Administrator Name Role Phone Gracy Medina MD Primary Care Provider [phone] Gracy Medina MD Unavailable [phone] Unallocated, Noms Provider Primary Care Provi cinthya Encounter Details Date Type Department Care Team (Late st Contact Info) Description 05/31/2023 Clinisync Result Encounter [facility] External Department Unsolicited Gracy Medina MD [address] [place] [address] Social History Tobacco Use Types Packs/Day Years Used Date Smoking Tobacco: Unknown Humiliation, Afraid, Rape, and Kick questionnair e [...] or ex-partner? No 02/23/2023 Social Connection and Isolation Panel [NHANES] A nswer Date Recorded In a typical week, how many times do you talk on the phone with family, friends, or neighbors? Three times a week 02/23/2023 How often do you get togethe r with friends or relatives? Never 02/23/2023 How often do you attend chur ch or advent services? Never 02/23/2023 Do you belong to any clubs o r organizations such as cheondoism groups, unions, fraternal or athletic groups, or school groups? No 02/23/2023 How often do you attend meet ings of the clubs or organizations you belong to? Never 02/23/2023 Are you , , di vorced, , never , or living with a partner? 02/23/2023 AUDIT-C Answer Date Recorded Q1: How often do you have a drink containing alc ohol? Monthly or less 02/23/2023 Q2: How many drinks containi ng alcohol do you have on a typical day when you are drinking? 3 or 4 02/23/2023 Q3: How often do you have si x or more drinks on one occasion? Less than monthly 02/23/2023 Overall Financial Resource Strain (CARDIA) Answe r Date Recorded How hard is it for you to pa y for the very basics like food, housing, medical care, and heating? Hard 02/23/2023 [facility] [place] of Occupat ional Health - Occupational Stress Questionnaire Answer Date Recorded Do you feel stress - tense, restless, nervous, or anxious, or unable to sleep at night because your mind is troubled all the time - these days? Very much 02/23/2023 Exercise Vital Sign Answer Date Recorde d On average, how many days pe r week do you engage in moderate to strenuous exercise (like a brisk walk)? 0 days 02/23/2023 On average, how many minutes do you engage in exercise at this level? 0 min 02/23/2023 Hunger Vital Sign Answer Date Recorded Within the past 12 months, y ou worried that your food would run out before you got the money to buy more. Often true 02/24/20 23 Within the past 12 months, t he food you bought just didn't last and you didn't have money to get more. Often true 02/23/2023 PRAPARE - Transportation Answer Date Re corded In the past 12 months, has l ack of transportation kept you from medical appointments or from getting medications? Yes 09/2022 In the past 12 months, has l ack of transportation kept you from meetings, work, or from getting things needed for daily living? Yes 02/23/2023 Housing Stability Vital Sign Answer Gonzalez [...] place to sleep or slept in a care home (including now)? No 02/23/2023 Comments Unknown Sex and Gender Information Value Date Recorded Sex Assigned at Not on file Legal Sex Female 6:58 PM EDT Gender Identity Not on file Sexual Orientation Not on file documented as of this encounter Plan of Treatment Not on file documented as of this encounter Procedures Procedure Name Priority Date/Time Associated Diagnosis Comments XR FOOT 3+ VIEWS LEFT 05/31/2023 4:16 PM EDT documented in this encounter Results * XR FOOT 3+ VIEWS LEFT (05/31/2023 4:16 PM EDT) Anatomical Region Laterality Modality Other 05/31/2023 4:16 PM EDT Narrative 05/31/2023 4:54 PM EDT Exam Date/Time: 05/31/2023 16:31 EDT Reason for [...] in mGy = na DAP = na Procedure Note Radiology, Radiologist, MD - 05/31/2023 Exam Date/Time: 05/31/2023 16:31 EDT Reason for Exam: M79.672 Report IMPRESSION: NO ACUTE PROCESS IN THE BONY STRUCTURES OF THE LEFT FOOT.PROBABLE CELLULITIS IN THE DORSAL ASPECT OF THE DISTAL METATARSAL BONES. CLINICAL HISTORY: M79.672 COMPARISON: None available. FINDINGS: AP, lateral and oblique views of the left foot demonstrate noevidence of acute fracture or dislocation. Bony structures are markedly osteoporotic.There is a metallic plate along the lateral aspect of the distal fibula transfixedwith multiple metallic screws. There are 2 metallic screws over the medial malleolus ofthe distal tibia. There are mild hammertoe deformities of the first through fifthtoes. There is soft tissue swelling over the dorsal aspect of the distal metatarsalbones. Ordering Provider: Gracy Medina FINAL REPORT Dictated: 05/31/2023 4:51 pm Salty Ruggiero M.D. Signed (Electronic Signature): 05/31/2023 4:51 pm Signed by: Salty Ruggiero M.D. Transcribed by: CARISA Technologist: BILL Technical Comments Radiation Dose: Ka,r in mGy = na DAP = na us Gracy Medina MD [facility] Final Resul t documented in this encounter Visit Diagnoses Not on filedocumented in this encounter Care Teams Senior Storage Administrator Relationship Specialty Start Date End Date Gracy Medina MD [address] [place] [address] PCP - General Family Medicine 02/14/23 06/25/24 Gracy Medina MD [address] [place] [address] PCP - ACO Reach 02/16/23 Unallocated, Noms Provider, [address] [place] [address] PCP - General Family Medicine 06/26/24 documented as of this encounter
--- OUTSIDE RECORDS SUMMARY | 2025-02-23 12:10 | XMS_ITS | Encounter Summary ---
Author Organization [facility] Address [address] [place] [address] Care Team Providers Care Hoisting Engine Operator Name Role Phone Gracy Medina MD Primary Care Provider [phone] Gracy Medina MD Unavailable [phone] Unallocated, Noms Provider Primary Care Provi cinthya Encounter Details Date Type Department Care Team (Late st Contact Info) Description 03/27/2023 Clinisync Result Encounter [facility] External Department Unsolicited Gracy Medina MD [address] [place] [address] Social History Tobacco Use Types Packs/Day Years [...] often do you attend chur ch or anabaptist services? Never 02/23/2023 Do you belong to any clubs o r organizations such as advent groups, unions, fraternal or athletic groups, or [...] housing, medical care, and heating? Hard 02/23/2023 [facility] [place] of Occupat ional Health - Occupational Stress [...] place to sleep or slept in a senior living (including now)? No 02/23/2023 Comments Unknown Sex and Gender Information Value Date Recorded Sex Assigned at Not on file Legal Sex Female 6:58 PM EDT Gender Identity Not on file Sexual Orientation Not on file documented as of this encounter Plan of Treatment Not on file documented as of this encounter Procedures Procedure Name Priority Date/Time Associated Diagnosis Comments XR FOOT 1-2 VIEWS LEFT Routine 05/02/2023 10:14 AM EDT XR ANKLE 3V AP/LAT/OBL LT 03/27/2023 12:20 PM EDT documented in this encounter Results * XR foot 1 or 2 views left (05/02/2023 10:14 AM EDT) Anatomical Region Laterality Modality Lower Extremities, Foot Left Radiogra phic Imaging us Gracy Medina MD IMG XR PROCEDURES Final Resul t * XR ANKLE 3V AP/LAT/OBL LT (03/27/2023 12:20 PM EDT) Anatomical Region Laterality Modality Other 03/27/2023 12:2 0 PM EDT Narrative 03/27/2023 12:47 PM EDT * * *Final Report* * * DATE [...] posterior calcaneal spur. No other significant abnormality. IMPRESSION: POSTOPERATIVE FINDINGS DESCRIBED SEVERE OSTEOPENIA OF THE LEFT ANKLE AND FOOT WHICH MAY RELATED TO DISUSE AND/OR HYPEREMIA. Manager Shop: [facility] Transcribe Date/Time: Mar 27 2023 12:44P Dictated by : KENDALL GUTIERREZ MD This examination was interpreted and the report reviewed and electronically signed by: KENDALL GUTIERREZ MD on Mar 27 2023 12:45PM EST [id number]^SI^ACN Procedure Note Radiology, Radiologist, - 03/27/2023 * * *Final Report* * * DATE [...] posterior calcaneal spur. No other significant abnormality. IMPRESSION: POSTOPERATIVE FINDINGS DESCRIBED SEVERE OSTEOPENIA OF THE LEFT ANKLE AND FOOT WHICH MAY RELATED TO DISUSE AND/OR HYPEREMIA. Manager Shop: [facility] Transcribe Date/Time: Mar 27 2023 12:44P Dictated by : KENDALL GUTIERREZ MD This examination was interpreted and the report reviewed and electronically signed by: KENDALL GUTIERREZ MD on Mar 27 2023 12:45PM EST [id number]^SI^ACN us Gracy Medina MD [facility] Final Resul t documented in this encounter Visit Diagnoses Not on filedocumented in this encounter Care Teams Hoisting Engine Operator Relationship Specialty Start Date End Date Gracy Medina MD [address] [place] [address] PCP - General Family Medicine 02/14/23 06/25/24 Gracy Medina MD [address] [place] [address] PCP - ACO Reach 02/16/23 Unallocated, N[facility] [place] [address] PCP - General Family Medicine 06/26/24 documented as of this encounter
--- OUTSIDE RECORDS SUMMARY | 2025-02-23 12:10 | XMS_ITS | Clinical Summary ---
Author Organization [facility] Address [address] [place] [address] Care Team Providers Care Coal Mill Operator Name Role Phone Gracy Medina MD Unavailable [phone] Unallocated, Noms Provider MD Primary Care Provi cinthya Allergies Active Allergy Reactions Criticality Noted Date Comments Bacitracin Unknown 02/13/2023 Lamotrigine Unknown 02/13/2023 Vancomycin 02/13/2023 Other Reaction(s): iv drip only Wound Dressing Adhesive Rash Low 05/02/2023 can use paper tape Medications ALPRAZolam (Xanax) 0.5 MG tablet Take 0.5 mg by mouth 3 (three) times a day as needed. Active metoprolol succinate XL (Toprol-XL) 50 MG 24 hr tablet Take 100 mg by mouth in the morning. Active Symbicort 160-4.5 MCG/ACT inhaler INHALE 2 PUFFS BY MOUTH TWICE A DAY *RINSE MOUTH AFTER USE* 11/01/19 23 Active pantoprazole (ProtoNix) 40 MG EC tabletIndication s:Gastro-esophag eal reflux disease without esophagitis TAKE 1 TABLET BY MOUTH EVERY DAY 90 tablet 3 09/11/20 23 Active lisinopril 5 MG tablet Take 5 mg by mouth in the morning. 11/24/19 24 Active QUEtiapine (SEROquel) 25 MG tablet Take 25 mg by mouth at bedtime 11/27/19 24 Active QUEtiapine (SEROquel) 50 MG tablet Take 50 mg by mouth at bedtime 11/21/19 24 Active oxyCODONE-acetam inophen (Percocet) 5-325 MG tablet TAKE 1 TABLET BY MOUTH EVERY 6 HOURS NEEDED FOR PAIN FOR 7 DAYS 12/21/19 24 Active methocarbamol (Robaxin) 750 MG tabletIndication s:Dorsalgia, unspecified TAKE 1 TABLET BY MOUTH THREE TIMES A DAY NEEDED FOR PAIN 90 tablet 1 01/02/20 24 Active albuterol HFA 90 mcg/act inhalerIndicatio ns:Chronic obstructive pulmonary disease, unspecified COPD type (CMS/HCC) INHALE 2 PUFFS EVERY 6 HOURS IF NEEDED FOR SHORTNESS OF BREATH OR WHEEZING 18 g 3 01/02/20 24 Active alendronate (Fosamax) 70 MG tabletIndication s:Other osteoporosis without current pathological fracture TAKE 1 TAB BY MOUTH ONCE A WEEK ON EMPTY STOMACH WITH FULL GLASS WATER.DO NOT EAT/LIE DOWN [id number]. 12 tablet 02/08/20 25 Active alendronate (Fosamax) 70 MG tabletIndication s:Other osteoporosis without current pathological fracture TAKE 1 TAB WEEKLY IN MORNING ON EMPTY STOMACH WITH FULL GLASS OF WATER.DO NOT EAT/LIE DOWN FOR 30MIN 12 tablet 11/17/19 25 025 Discontinued Active Problems Problem Noted Date Diagnosed Date Asthma 04/13/2023 COPD (chronic obstructive pulmonary disease) Current smoker 04/13/2023 Overview (05/02/2023): Added secondary to documentation in Social History. Added secondary to documentation in Social History. Bipolar 1 disorder 02/23/2023 Absence of uterus 02/13/2023 Atherosclerosis 02/13/2023 Avascular necrosis of right humeral head 023 Chronic post-traumatic headache, not intractable 02/13/2023 Chronic tachycardia 02/13/2023 Displaced trimalleolar fract ure of left lower leg, initial encounter for closed fracture 02/13/2023 Difficulty walking 02/13/2023 Dysphagia 02/13/2023 Essential hypertension 02/13/2023 Gastroesophageal reflux disease 02/13/2023 Hip pain 02/13/2023 Major depressive disorder, single episode, unspe cified 02/13/2023 Neuropathy 02/13/2023 Paresthesia of skin 02/13/2023 Anxiety disorder, unspecified 02/13/2023 PTSD (post-traumatic stress disorder) 02/13/2023 Scoliosis 02/13/2023 Stress at home 02/13/2023 Poor sleep hygiene 10/28/2022 Overview (02/23/2023): Last Assessment & Plan: Will order sleep study and new referral to a different foam rubber curer Palpitations 08/03/2022 Overview (02/23/2023): Last Assessment & Plan: Continue toprol SVT (supraventricular tachycardia) 08/03/2022 Overview (02/23/2023): Last Assessment & Plan: Continue metoprolol as prescribed GERD without esophagitis 08/03/2022 Overview (02/23/2023): Last Assessment & Plan: Follow-up with PCP Nicotine use disorder 04/19/2021 Chronic post-traumatic headache 2019 Environmental allergies 03/08/2019 Acquired absence of both cervix and uterus 03/08 Arthrodesis status 03/12/2004 Idiopathic scoliosis and kyphoscoliosis 03/12/20 04 Overview (02/23/2023): Scoliosis (and kyphoscoliosis), idiopathic IMO4.1.23 Sciatica 03/12/2004 Encounters Date Type Department Care Team Description 02/07/2025 Refill [facility] [address] [place] [address] Georgie Rodríguez NP Other osteoporosis without current pathological fracture 01/21/2025 Telephone [facility] [address] [place] [address] Halie Nuñez 12/21/2024 Refill [facility] [place] [address] [place] [id number] Gracy Medina MD Other constipation; Generalized abdominal pain from Last 3 Months Immunizations Immunization Administration Dates Next Due DTP 08/02/2022 Influenza, Unspecified 06/25/2015 Influenza, seasonal, injectable 06/12/2015 Influenza, seasonal, intradermal, preservative f ree 06/10/2019 Pneumococcal Polysaccharide PPSV23 08/06/2019 Tdap 08/02/2022 Family History Medical History Relation Name Comments Cancer Father Hypertension Father Stroke Father Heart disease Mother Hypertension Mother Relation Name Status Comments Father Alive Mother Alive Social History Tobacco Use Types Packs/Day Years Used Date Smoking Tobacco: Every Day Cigarettes Tobacco Cessation:Ready to Q uit: Not Asked; Counseling Given: Not Answered Alcohol Use Standard Drinks/Week Comments Yes 1 [...] week 06/24/2024 [facility] often do you attend [facility] or jehovah's witness services? Never 06/24/2024 Do you belong to [...] Recorded Patient Health Questionnaire-2 Score 4 06/24/2024 [facility] - Occupational Stress [...] place to sleep or slept in a penitentiary (including now)? No 02/23/2023 Housing Stability Vital Sign Answer Gonzalez e Recorded In the last 12 months, was t here a time when you were not able to pay the mortgage or rent on time? No 06/24/2024 Number of Times Moved in the Last Year Not on fi le 06/24/2024 At any time in the past 12 m [facility], were you homeless or living in a penitentiary (including now)? No 06/24/2024 Comments Unknown Sex and Gender Information Value Date Recorded Sex Assigned at Not on file Legal Sex Female 6:58 PM EDT Gender Identity Not on file Sexual Orientation Not on file Last Filed Vital Signs Vital Sign Reading Time Taken Comments Blood Pressure 128/84 05/02/2023 1:45 PM EDT Pulse 96 05/02/2023 1:45 PM EDT Temperature 36.3 C (97.4 F) 05/02/2023 1:45 PM EDT Respiratory Rate - - Oxygen Saturation 97% 05/02/2023 1:45 PM EDT Inhaled Oxygen Concentration - - Weight 56.2 kg (124 lb) 01/19/2023 12:00 PM EDT Height 152.4 cm (5') 05/02/2023 1:45 PM EDT Body Mass Index 24.22 01/19/2023 12:00 PM EDT Plan of Treatment Health Maintenance Due Date Last Done Comments CT Colonography 1974 FIT-DNA 1974 FIT 1974 FOBT 1974 Sigmoidoscopy 1974 Mammogram 04/20/2023 04/20/2022, 06/28/2019 Medicare Annual Wellness (AWV) 06/23/2023 06/23/2022 , 05/26/2021 Influenza Vaccine (Season Ended) 2025 06/10/2019, 06/25/2015, 06/12/2015 Colonoscopy 04/15/2029 04/15/2019, 12/23/2004 Colorectal Cancer Screening 04/15/2029 Procedures Procedure Name Priority Date/Time Associated Diagnosis Comments BI MAMMOGRAM SCREENING TOMOSYNTHESIS BILATERAL Routine 04/20/2022 Overweight Tobacco use Essential (primary) hypertension (CMS/HCC) Tachycardia, unspecified Body mass index (BMI) 26.0-26.9, adult Encounter for screening mammogram for malignant neoplasm of breast COLONOSCOPY Routine 04/15/2019 12:00 PM EDT from Last 3 Months or Most Recently Relevant to Health Maintenance Results * Bilateral screening mammogram with tomosynthesis (04/20/2022) Anatomical Region Laterality Modality Breast Bilateral Mammography Narrative 04/20/2022 12:00 AM EDT PERFORMED AT [facility] LOCATION:[place] [id number] Exam Date/Time: 04/20/2022 13:18 EDT Reason for Exam: Screening Report IMPRESSION: BIRADS 2 BENIGN FINDINGS NORMAL INTERVAL FOLLOW-UP Follow-up: 12 MONTH RECALL Dense Breast: No EXAM: MA Mamm Screen w/CAD if perf and 3D Robert DATE: 04/20/2022 CLINICAL HISTORY: Screening. COMPARISONS: 06/25/2019 and 01/09/2015. TECHNIQUE: Routine full-field digital mammograms and 3D breast tomosynthesis of both breasts were obtained. FINDINGS: Scattered fibroglandular densities are present with stable asymmetry and nodularity. There are no developing masses suspicious microcalcifications or areas of architectural distortion identified on the current study. No significant changes are identified from the prior studies given differences in technique and positioning. CAD analysis was performed and used in the interpretation. Board Certified Radiologists. Accredited by the ACR and FDA. MAMMOGRAPHY IS VERY IMPORTANT TO YOUR HEALTH. THE CURRENT [employer]WORK GUID[employer]INES RECOMMENDS ANNUAL MAMMOGRAPHY BEGINNING AT AGE 40. THIS FACILITY UTILIZES A REMINDER SYSTEM TO ENSURE ALL PATIENTS RECEIVE REMINDER NOTIFICATIONS AT THE APPROPRIATE TIME BASED ON THE RECOMMENDATIONS OF THIS EXAM. Report FINAL REPORT Dictated: 04/24/2022 8:38 am Andria Alejo Signed (Electronic Signature): 04/24/2022 8:38 am Signed by: Andria Alejo Transcribed by: CARISA Technologist: AP Assessment: BI-RADS Category 2-Benign finding Recommendation: Normal interval follow-up Procedure Note CONVERSION, GENERIC - 03/31/2023 PERFORMED AT [facility] LOCATION:[place] [id number] Exam Date/Time: 04/20/2022 13:18 EDT Reason for Exam: Screening Report IMPRESSION: BIRADS 2 BENIGN FINDINGS NORMAL INTERVAL FOLLOW-UP Follow-up: 12 MONTH RECALL Dense Breast: No EXAM: MA Mamm Screen w/CAD if perf and 3D Robert DATE: 04/20/2022 CLINICAL HISTORY: Screening. COMPARISONS: 06/25/2019 and 01/09/2015. TECHNIQUE: Routine full-field digital mammograms and 3D breasttomosynthesis of both breasts were obtained. FINDINGS: Scattered fibroglandular densities are present with stable asymmetry andnodularity. There are no developing masses suspicious microcalcifications or areas of architectural distortion identified on the current study. No significant changes are identified from the prior studies given differences in technique and positioning. CAD analysis was performed and used in the interpretation. Board Certified Radiologists. Accredited by the ACR and FDA. MAMMOGRAPHY IS VERY IMPORTANT TO YOUR HEALTH. THE CURRENT [employer]ATIONAL COMPREHENSIVEC[employer]WORK GUIDELINES RECOMMENDS ANNUAL MAMMOGRAPHY BEGINNING AT AGE 40. THIS FACILITY UTILIZES A REMINDER SYSTEM TO ENSURE ALL PATIENTS RECEIVEREMINDER NOTIFICATIONS AT THE APPROPRIATE TIME BASED ON THE RECOMMENDATIONS OF THISEXAM. Report FINAL REPORT Dictated: 04/24/2022 8:38 am Andria Alejo Signed (Electronic Signature): 04/24/2022 8:38 am Signed by: Andria Alejo Transcribed by: CARISA Technologist: JOSE Assessment: BI-RADS Category 2-Benign finding Recommendation: Normal interval follow-up us Gracy Medina MD IMG BI PROCEDURES Final Resul t * Colonoscopy (04/15/2019 12:00 PM EDT) Anatomical Region Laterality Modality Endoscopy 04/15/2019 12:0 0 PM EDT Narrative 04/15/2019 12:00 PM EDT PERFORMED AT [facility] LOCATION:[id number] Procedure Note CONVERSION, GENERIC - 02/08/2023 PERFORMED AT [facility] LOCATION:[id number] us Gracy Medina MD ENDOSCOPY PROCEDURE ORDERABLE S Final Result from Last 3 Months or Most Recently Relevant to Health Maintenance [place] [address] MEDICARE MEDICAID [place] Care Teams Coal Mill Operator Relationship Specialty Start Date End Date Gracy Medina MD [address] [place] [address] PCP - ACO Reach 02/16/23 Unallocated, Noms MD [address] [place] [address] PCP - General Family Medicine 06/26/24
--- OUTSIDE RECORDS SUMMARY | 2025-02-23 12:10 | XMS_ITS | Encounter Summary ---
Author Organization [facility] Address [address] [place] [address] Care Team Providers Care Voltage Regulator Assembler Name Role Phone Gracy Medina MD Primary Care Provider [phone] Gracy Medina MD Unavailable [phone] Unallocated, Noms Provider Primary Care Provi cinthya Encounter Details Date Type Department Care Team (Late st Contact Info) Description 04/10/2023 Clinisync Result Encounter [facility] External Department Unsolicited Provider, Generic External Data Social History Tobacco Use Types Packs/Day Years [...] often do you attend chur ch or jew services? Never 02/23/2023 Do you belong to any clubs o r organizations such as lutheran groups, unions, fraternal or athletic groups, or [...] housing, medical care, and heating? Hard 02/23/2023 [facility] - Occupational [...] place to sleep or slept in a snf (including now)? No 02/23/2023 Comments Unknown Sex and Gender Information Value Date Recorded Sex Assigned at Not on file Legal Sex Female 6:58 PM EDT Gender Identity Not on file Sexual Orientation Not on file documented as of this encounter Plan of Treatment Not on file documented as of this encounter Procedures Procedure Name Priority Date/Time Associated Diagnosis Comments CT SHOULDER RIGHT WO IV CONTRAST 04/10/2023 12:24 PM EDT documented in this encounter Results * CT shoulder right wo IV contrast (04/10/2023 12:24 PM EDT) Anatomical Region Laterality Modality Upper Extremities, Shoulder Right Comp uted Tomography 04/10/2023 12:2 4 PM EDT Narrative 04/13/2023 4:06 PM EDT * * *Final Report* * * DATE OF EXAM: Apr 10 2023 12:24PM KEY 5253 - XR SHLDR >/=3V AP/PIEDAD AP/OTHR [...] Collapse of the humeral head as described. Superintendent[facility] Transcribe Date/Time: Apr 13 2023 4:03P Dictated by : PAUL REED MD This examination was interpreted and the report reviewed and electronically signed by: PAUL REED MD on Apr 13 2023 4:04PM EST [id number] Procedure Note Radiology, Radiologist, MD - 04/13/2023 * * *Final Report* * * DATE [...] Collapse of the humeral head as described. Superintendent[facility] Transcribe Date/Time: Apr 13 2023 4:03P Dictated by : PAUL REED MD This examination was interpreted and the report reviewed and electronically signed by: PAUL REED MD on Apr 13 2023 4:04PM EST [id number]^SI^ACN us Generic External Data Provider IMG CT PROCEDURES Final Result documented in this encounter Visit Diagnoses Not on filedocumented in this encounter Care Teams Voltage Regulator Assembler Relationship Specialty Start Date End Date Gracy Medina MD [address] [place] [address] PCP - General Family Medicine 02/14/23 06/25/24 Gracy Medina MD [address] [place] [address] PCP - ACO Reach 02/16/23 Unallocated, Noms Provider, [address] [facility] [place] [address] PCP - General Family Medicine 06/26/24 documented as of this encounter
--- OUTSIDE RECORDS SUMMARY | 2025-02-23 12:10 | XMS_ITS | Clinical Summary ---
Author Organization [facility] Address [address] [facility] [address] [place] [address] Care Team Providers Care Plant Controls Specialist Name Role Phone Unavailable Primary Care Provider Unavailabl e Source Comments The following information is NOT included in Care Everywhere downloads:Psychiatric notes, ECG results, Cardiac Rehab notes, Pulmonary Function notes, data from SmartForms (includes but not limited toPregnancy data,audiograms, eye exams, pre-surgical evaluation notes, well-child exam data).[facility] Active Problems Problem Noted Date Diagnosed Date Sciatica 03/12/2004 Arthrodesis status 03/12/2004 Idiopathic scoliosis and kyphoscoliosis 03/12/20 04 Overview (12/31/2022): Scoliosis (and kyphoscoliosis), idiopathic IMO4.1.23 Immunizations Immunization Administration Dates Next Due DTP (CVX=01) 08/02/2022 Influenza, injectable, triva lent, preservative (JUP=035) 06/12/2015 Influenza, intradermal, triv alent, preservative free (IIV3) (AGK=666) 06/10/2019 Pfizer Monovalent (12+ yrs) SARS-COV-2 (COVID-19) vaccine, mRNA, spike protein, LNP, pres. free, 30 mcg/0.3mL dose (MXP=069) 02/08/2021,01/18/2021 Pneumococcal polysaccharide 23 Valent (PPSV23) (CVX=33) 08/06/2019 Social History Tobacco Use Types Packs/Day Years Used Date Smoking Tobacco: Never Assessed Comments Unknown Sex and Gender Information Value Date Recorded Sex Assigned at Not on file Legal Sex Female 10:31 AM EST Gender Identity Not on file Sexual Orientation Not on file Last Filed Vital Signs Vital Sign Reading Time Taken Comments Blood Pressure 169/102 01/11/2023 5:36 AM EDT Pulse 103 01/11/2023 5:36 AM EDT Temperature - - Respiratory Rate 22 01/11/2023 5:36 AM EDT Oxygen Saturation 95% 01/11/2023 5:36 AM EDT Inhaled Oxygen Concentration - - Weight - - Height - - Body Mass Index - - Plan of Treatment Health Maintenance Due Date Last Done Comments Colonoscopy 1974 HIV Test 1989 Hepatitis C Antibody 1992 Tdap Booster 1992 Hepatitis A (HAV) Vaccine (o ptional start 19+ years) 1993 Hepatitis B (HBV) Vaccine (1 of 3 - 19+ 3-dose series) 1993 Pap Smear 1995 Mammography 2014 Annual Wellness Visit (G0438) 03/25/2016 CRC Screening 2019 Cholesterol 2019 Cologuard (Stool DNA) 2019 FIT 2019 COVID-19 Vaccine (2023- season) 2024, 01/18/2021 Pneumococcal Vaccine(s) (50+ yrs) (2 of 2 - PCV) 2024 08/06/2019 Shingles (RZV) Vaccine (1 of 2) 2024 Insurance MEDICARE MEDICAID
--- OUTSIDE RECORDS SUMMARY | 2025-02-23 12:10 | XMS_ITS | Encounter Summary ---
Author Organization [facility] Address [address] [place] [id number] Care Team Providers Care Chain Maker Loom Control Name Role Phone Alfie Rubio MD Primary Care Provider [phone] Morales CHEN DO, Rolland R Primary Care Provider Gracy Medina MD Primary Care Provider [phone] Gracy Medina MD Unavailable [phone] Source Comments In the event this information is protected by the Federal Confidentiality of Alcohol and Drug AbusePatient Records regulations: The Federal rules restrict any use of the information to criminally investigate or prosecute any alcohol or drug abuse patient.[facility] Encounter Details Date Type Department Care Team (Latest Contact Info) Description 03/06/2005 Prob Sum Review Provider, Nancy Social History Tobacco Use Types Packs/Day Years Used Date Smoking Tobacco: Never Assessed Comments No Sex and Gender Information Value Date Recorded Sex Assigned at Not on file Legal Sex Female 9:50 AM EST Gender Identity Not on file Sexual Orientation Not on file documented as of this encounter Plan of Treatment Not on file documented as of this encounter Visit Diagnoses Not on filedocumented in this encounter Care Teams Chain Maker Loom Control Relationship Specialty Start Date End Date Alfie Rubio MD [address] [place] [address] PCP - General 06/20/02 06/23/15 Qamar Nielsen III, DO [address] [place] [address] PCP - General Family Medicine 06/24/15 04/10/21 Gracy Medina MD [address] [place] [address] PCP - General Family Medicine 04/11/21 Gracy Medina MD [address] [place] [address] Referring Family Medicine 03/07/23 documented as of this encounter
--- OUTSIDE RECORDS SUMMARY | 2025-02-23 12:10 | XMS_ITS | Encounter Summary ---
Author Organization [facility] Address [address] [place] [address] Care Team Providers Care Miller Rod Mill Name Role Phone Gracy Medina MD Primary Care Provider [phone] Gracy Medina MD Unavailable [phone] Unallocated, Noms Provider Primary Care Provi cnithya Encounter Details Date Type Department Care Team (Late st Contact Info) Description 05/10/2023 Orders Only [facility] [address] [place] [id number] Gracy Medina MD [address] [place] [address] Social History Tobacco Use Types Packs/Day Years [...] often do you attend chur ch or yazidi services? Never 02/23/2023 Do you belong to any clubs o r organizations such as gnosticism groups, unions, fraternal or athletic groups, or [...] housing, medical care, and heating? Hard 02/23/2023 [facility] - Occupational Stress [...] place to sleep or slept in a detention (including now)? No 02/23/2023 Comments Unknown Sex and Gender Information Value Date Recorded Sex Assigned at Not on file Legal Sex Female 6:58 PM EDT Gender Identity Not on file Sexual Orientation Not on file documented as of this encounter Plan of Treatment Not on file documented as of this encounter Procedures Procedure Name Priority Date/Time Associated Diagnosis Comments ECHO TRANSTHORACIC STRESS Routine 2022 10:49 AM EDT documented in this encounter Results * ECHO TRANSTHORACIC STRESS (05/05/2023 10:49 AM EDT) Anatomical Region Laterality Modality Radiographic Vidya ging us Gracy Medina MD IMG XR PROCEDURES Final Resul t documented in this encounter Visit Diagnoses Not on filedocumented in this encounter Care Teams Miller Rod Mill Relationship Specialty Start Date End Date Gracy Medina MD [address] [place] [address] PCP - General Family Medicine 02/14/23 06/25/24 Gracy Medina MD [address] [place] [address] PCP - ACO Reach 02/16/23 Unallocated, Noms Provider, MD [facility] [address] PCP - General Family Medicine 06/26/24 documented as of this encounter
--- OUTSIDE RECORDS SUMMARY | 2025-02-23 12:10 | XMS_ITS | Patient Health Record ---
Author Organization [facility] in [place] Address [address] [place] [address] Care Team Providers Care Geoscientist Name Role Phone Carol DESHPANDE, Gracy Primary Care Provider UnavailFrancis Maya Unavailable [phone] Jacinda Vee Unavailable [phone] Timmy Kumar Unavailable [phone] Allergies Allergen (clinical drug ingredient) Drug/Non Drug Allergy documented on EMR Reaction Allergy Type Onset Date Status bacitracin Bacitracin Unknown Drug Allergy Activ e lamotrigine Lamotrigine Unknown Drug Allergy Act anil vancomycin Vancomycin Unknown Drug Allergy Activ e Results Component Value Reference Range Notes XR Ankle LT (3 views) * (164 ) Reviewed date:06/20/2024 12:57:57 PM Interpretation: Performing Lab: Notes/Report: XR foot RT min 3V (Not yet r eviewed by provider) Interpretation: Performing Lab: Notes/Report: Source Facility: [place] [address] XRay Report Signed Patient: ABEBA MARCIAL MR#: [id number] : 1975 Acct:[id number] Age/Sex: 49 / F ADM Date: 11/27/24 Loc: RAD Attending Dr: Francis Walsh D.P.M. Ordering Physician: Francis Walsh D.P.M. Date of Service: 11/27/24 Procedure(s): XR foot RT min 3V Accession Number(s): [id number] cc: Francis Walsh D.P.M.; BRAYAN GUERRA [address] [address] Patient Name: ABEBA MARCIAL MRN: [id number] date: 1975 Sex: F Assigned Patient Location: [facility] Current Patient Location: [facility] Accession/Order Number: [id number] Exam Date: 11/27/2024 23:19 Report Date: 11/27/2024 23:20 At the request of: FRANCIS WALSH DPM Procedure: XR foot RT min 3V RIGHT FOOT - 3 views CLINICAL HISTORY: Follow-up right fifth toe fracture. COMPARISON: Right foot 10/08/2024 FINDINGS: Proximal phalanx fracture of the fifth digit grossly unchanged alignment with interval sclerosis suggestive of healing response. No new fractures are seen. No focal soft tissue abnormality. XR/XR foot RT min 3V IMPRESSION: HEALING PROXIMAL PHALANX FIFTH DIGIT FRACTURE. Impression dictated by: Shree Sandra Jr., D.O.11/27/2024 11:20 PM Dictation Location: [place] [address] Electronically authenticated by: [id number] Y Date: 11/27/2024 23:20 Dictated By: Shree Sandra M.D. Signed By: 11/27/242321 DD/ 19 TD/TT: Bank Secrecy Act Officer: [place] [address] XRay Report Signed Patient: STU MARCIAL MR#: [id number] : 1975 Acct:[id number] Age/Sex: 49 / F ADM Date: 11/27/24 Loc: RAD Attending Dr: Francis Walsh D.P.M. Ordering Physician: Francis Walsh D.P.M. Date of Service: 11/27/24 Procedure(s): XR foot RT min 3V Accession Number(s): [id number] cc: Francis Walsh D.P.M.; BRAYAN GUERRA [address] [address] Patient Name: ABEBA MARCIAL MRN: [id number] date: 1975 Sex: F Assigned Patient Location: RAD Current Patient Location: RAD Accession/Order Numb er: [id number] Exam Date: 11/27/2024 23:19 Report Date: 11/27/2024 23:20 At the request of: FRANCIS WALSH DPM Procedure: XR foot RT min 3V RIGHT FOOT - 3 views CLINICAL HISTORY: Fo llow-up right fifth toe fracture. COMPARISON: Right fo ot 10/08/2024 FINDINGS: Proximal phalanx fra cture of the fifth digit grossly unchanged alignment with interval sclerosis s uggestive of healing response. No new fractures are seen. No focal soft tissue abnormality. X R/XR foot RT min 3V IMPRESSION: HEALING PROXIMAL PHA LANX FIFTH DIGIT FRACTURE. Impression dictated by: Shree Sandra Jr., D.O.11/27/2024 11:20 PM Dictation Location: [facility] Electronically authe nticated by: [id number] Y Date: 11/27/2024 23:20 Dictated By: Shree Hernandez i, M.D. Signed By: 11/27/242321 DD/ 19 TD/TT: Bank Secrecy Act Officer: XR foot RT min 3V (Not yet r eviewed by provider) Interpretation: Performing Lab: Notes/Report: Source Facility: [place] [address] XRay Report Signed Patient: ABEBA MARCIAL MR#: [id number] : 1975 Acct:[id number] Age/Sex: 48 / F ADM Date: 10/08/24 Loc: [facility] Attending Dr: Francis Walsh D.P.M. Ordering Physician: Francis Walsh D.P.M. Date of Service: 10/08/24 Procedure(s): XR foot RT min 3V Accession Number(s): [id number] cc: Francis Walsh D.P.M.; BRAYAN GUERRA [place] [address] Patient Name: ABEBA MARCIAL MRN: [id number] date: 1975 Sex: F Assigned Patient Location: RAD Current Patient Location: Accession/Order Number: [id number] Exam Date: 10/08/2024 12:40 Report Date: 10/09/2024 05:09 At the request of: FRANCIS WALSH Procedure: XR foot RT min 3V PROCEDURE: XR foot RT min 3V HISTORY: Pain ; acute right 5th toe pain COMPARISON: None. FINDINGS: BONES:Oblique, nondisplaced fractures of the 5th proximal phalanx at the proximal diametaphyseal junction. SOFT TISSUES:No visible soft tissue swelling. EFFUSION:None visible. OTHER: Negative. XR/XR foot RT min 3V IMPRESSION: 1. Acute nondisplaced fractures of the 5th proximal phalanx. Electronically authenticated by: WICHO REDDING Date: 10/09/2024 05:09 Dictated By: Wicho Redding M.D. Signed By: 10/09/24 0512 DD/ 0509 TD/TT: Bank Secrecy Act Officer: [place] [address] XRay Report Signed Patient: STU MARCIAL MR#: [id number] : 1975 Acct:[id number] Age/Sex: 48 / F ADM Date: 10/08/24 Loc: RAD Attending Dr: Francis Walsh D.P.M. Ordering Physician: Francis Walsh D.P.M. Date of Service: 10/08/24 Procedure(s): XR foot RT min 3V Accession Number(s): [id number] cc: Francis Walsh D.P.M.; BRAYAN GUERRA [place] [address] Patient Name: ABEBA MARCIAL MRN: [id number] date: 1975 Sex: F Assigned Patient Location: RAD Current Patient Location: Accession/Order Numb er: [id number] Exam Date: 10/08/2024 12:40 Report Date: 10/09/2024 05:09 At the request of: FRANCIS WALSH Procedure: XR foot RT min 3V PROCEDURE: XR foot RT min 3V HISTORY: Pain ; acut e right 5th toe pain COMPARISON: None. FINDINGS: BONES:Oblique, nondi splaced fractures of the 5th proximal phalanx at the proximal diametaphys eal junction. SOFT TISSUES:No visi ble soft tissue swelling. EFFUSION:None visible. OTHER: Negative. X R/XR foot RT min 3V IMPRESSION: 1. Acute nondisplace d fractures of the 5th proximal phalanx. Electronically authe nticated by: WICHO REDDING Date: 10/09/2024 05:09 Dictated By: Wicho Redding M.D. Signed By: 10/09/24 0512 DD/ 0509 TD/TT: Bank Secrecy Act Officer: Reason For Referral No Information Medications Medication SIG (Take, Route, Frequency, Duration) Notes Start Date End Date Status ALPRAZolam Active Metoprolol & Diet Manage Prod Active Alendronate Sodium A ctive Ventolin HFA Active Robaxin Active SEROquel Active Protonix Active Social History Tobacco Use: Social History Observation Description Date Details (start date - stop date) Current Smoker NA - NA Tobacco Use/Smoking Question Answer Notes Patient is a current smoker Problems Problem Type SNOMED Code ICD Code Onset Dates Problem Status W/U Status Risk Notes Problem 916598668720818 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) Active confirmed Problem 03407571039692448 Cellulitis of left lower limb (L03.116) Active confirmed Problem 4161486774927822 Other instability, 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) Active confirmed Problem 110002896 Other specified joint disorders, 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) Active confirmed Problem 355047460 Other specified disorders of bone density and structure, left ankle and foot (M85.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) Active confirmed Problem 6794377 Displaced trimalleolar fracture of left lower leg, sequela (S82.852S) Active confirmed Problem 630258388 Presence of functional implant, unspecified (Z96.9) Active confirmed Problem Pain in right foot (454191278540499) Right foot pain (M79.671) Active confirmed Problem Pain in left foot (351922866562044) Left foot pain (M79.672) Active confirmed Problem Closed trimalleolar fracture (0865025) Closed displaced trimalleolar fracture of left ankle (S82.852A) Active confirmed Vital Signs Heart Rate 72 /min 11/27/2024 Temperature 97.8 degrees Fahrenheit 11/27/2024 Respiratory Rate 18 /min 05/22/2024 Oximetry 98 % 11/27/2024 Height 59 in 11/27/2024 Weight 140 lbs 11/27/2024 BMI 28.27 kg/m2 11/27/2024 Encounters Encounter Location Date Provider Diagnosis [facility] (PODIATRY) [address] [place] [address] [place] [address] 10/08/2024 Peter Highlander Right foot pain M79.671 and Displaced unspecified fracture of right lesser toe(s), initial encounter for closed fracture S92.501A [facility] (PODIATRY) [address] [place] [address] [place] [address] 11/27/2024 Peter Highlander Right foot pain M79.671 and Nondisplaced fracture of proximal phalanx of left lesser toe(s), initial encounter for closed fracture S92.515A [facility] (PODIATRY) [address] [place] [address] [place] [address] 02/28/2024 Francis Walsh Displaced trimalleolar fracture of left lower leg, sequela S82.852S and Disruption of internal operation (surgical) wound, not elsewhere classified, initial encounter T81.32XA [facility] (PODIATRY) [address] [place] [address] [place] [address] 03/20/2024 Timmy Kumar Other specified join t disorders, left ankle and foot M25.872 ; Displaced trimalleolar fracture of left lower leg, sequela S82.852S ; Disruption of internal operation (surgical) wound, not elsewhere classified, initial encounter T81.32XA and Unspecified mononeuropathy of left lower limb G57.92 [facility] (PODIATRY) [address] [place] [address] [place] [address] 04/04/2024 Jacinda Vee Displaced trimalleolar fracture of left lower leg, sequela S82.852S and Cellulitis of left lower limb L03.116 [facility] (PODIATRY) [address] [place] [address] [place] [address] 04/23/2024 Francis Walsh Displaced trimalleolar fracture of left lower leg, sequela S82.852S and Disruption of external operation (surgical) wound, not elsewhere classified, initial encounter T81.31XA [facility] (PODIATRY) [address] [place] [address] [place] [address] 05/22/2024 Francis Walsh Displaced trimalleolar fracture of left lower leg, sequela S82.852S and Presence of functional implant, unspecified Z96.9 Assessments Encounter Date Diagnosis (ICD Code) Assessment Notes Treatment Notes Treatment Clinical Notes Section Notes 02/28/2024 Displaced trimalleolar fracture of left lower leg, sequela (ICD-10 - S82.852S) 02/28/2024 Disruption of internal operation (surgical) wound, not elsewhere classified, initial encounter (ICD-10 - T81.32XA) Patient presents for concern of her wound and that it has not healed. She believes it is secondary to the Medihoney. She continues to smoke however relating that she has smoked since 11 years old and has been able to heal all other surgical incisions without an issue. I tried to explain that smoking affects skin healing more so on the foot and ankle than on the abdomen or other central aspects.Much encouragement was provided and the wound is appearing to heal and there is only a small amount of erythema surrounding therefore recommended that she continue the antibiotics until finished washing the area with soap and water and will discontinue the Medihoney for now and she is to perform daily dressing changes with Xeroform. She will follow-up in 2 weeks call sooner if neededIf she is having continued pain I would like weightbearing ankle x-rays at next appointment. She does relate that the Lyrica has substantially helped her pain much more than gabapentin and she is happy with that. 03/20/2024 Other specified joint disorders, left ankle and foot (ICD-10 - M25.872) 04/04/2024 Displaced trimalleolar fracture of left lower leg, sequela (ICD-10 - S82.852S) The patient is status post hardware removal of the left ankle on 12/21/2023.She presents today with questions about her nonhealing surgical incision. She states the Medihoney is not providing any benefit.Physical examination is concerning for mild cellulitis. No evidence of abscess.She was started on Bactrim and Augmentin.I recommend she discontinue Medihoney and use Xeroform and a dry sterile dressing. No soaking.Follow-up in 2 weeks, sooner if any issues arise. No x-rays necessary at that time.The patient was counseled on the effects of smoking in regards to healing and was encouraged to quit smoking. 04/04/2024 Cellulitis of left lower limb (ICD-10 - L03.116) 04/23/2024 Displaced trimalleolar fracture of left lower leg, sequela (ICD-10 - S82.852S) 04/23/2024 Disruption of external operation (surgical) wound, not elsewhere classified, initial encounter (ICD-10 - T81.31XA) Patient is happy with her progress and should continue Xeroform and gauze dressing daily to every other day. She should wash the wound with soap and water and monitor for signs of infection. No signs of infection today. Patient may increase her activities as she tolerates. She will follow-up in 3 to 4 weeks no new x-rays are needed 05/22/2024 Displaced trimalleolar fracture of left lower leg, sequela (ICD-10 - S82.852S) Patient is now 5 months status post hardware removal. She is very happy with her progress and only having intermittent mild pain. Her wound is healed and I do not believe that she requires any further dressings but she is rather anxious regarding it remaining healed. I have no limitations for her at this point but she may follow-up in 6 weeks no new x-rays are needed. 05/22/2024 Presence of functional implant, unspecified (ICD-10 - Z96.9) 10/08/2024 Right foot pain (ICD-10 - M79.671) [...] like weightbearing foot x-rays at next appointment 11/27/2024 Right foot pain (ICD-10 - M79.671) 11/27/2024 Nondisplaced fracture of proximal phalanx of left lesser toe(s), initial encounter for closed fracture (ICD-10 - S92.515A) Patient presents for follow-up following nonsurgical treatment for fifth toe fracture and she is doing very well. I have no restrictions for her. She may follow-up as needed 03/20/2024 Displaced trimalleolar fracture of left lower leg, sequela (ICD-10 - S82.852S) Patient examined evaluated. All findings discussed with patient all questions answered by satisfaction.Since previous visit, states the wound in the lateral incision is greatly improved in size and has not been using any type of dressings. She does still complain of hypersensitivity along the lateral ankle incision as well as some stiffness within the ankle causing pain with prolonged weightbearing, however she states that she has been more active over the past week as she had to travel to [place] to visit her father who was just placed on hospice. She does relate the Lyrica is helping, however discretion of refill as she not able to get into her primary until the end of this month.Clinical exam and x-ray findings discussed with patient. Discussed that most of her symptoms likely related to neuritis and potential scar adhesions surrounding the lateral ankle incision. Discussed various crossfibre massage and desensitization type techniques as well as formal physical therapy for this to also include strengthening and range of motion modalitiesIncisional eschars are dry and stable, recommended covering with simple Band-Aid and Medihoney or hydrogel to her tolerance.Refill Rx for Lyrica dispensed today, discussed future prescriptions should be discussed with her primary care.Patient is best understanding will discuss today left the office please. Will follow-up in 6 weeks to evaluate her progress with physical therapy. She is call meantime with any questions or concerns. 03/20/2024 Disruption of internal operation (surgical) wound, not elsewhere classified, initial encounter (ICD-10 - T81.32XA) 03/20/2024 Unspecified mononeuropathy of left lower limb (ICD-10 - G57.92) Plan Of Treatment Pending Test Test Name Order Date XR Foot RT (3 views) * 11/27/2024 XR Foot RT (3 views) * 10/08/2024 XR foot RT min 3V 11/27/2024 XR foot RT min 3V 10/09/2024 XR ankle LT min 3V 07/20/2023 Insurance Providers Payer Name Payer Address Payer Phone Subscriber Number Group Number Insured Name Patient Relationship to Insured Coverage Start Date Coverage End Date [place] [address] [place] [address] [id number] Abeba Marcial Self - patient is the insured 5 [place] 2[employer] INS [address] [place], [place] [id number] Abeba Marcial Self - patient is the insured 2 Medical (General) History Medical History History ICD Code heart problems lung problems foot and ankle problems Surgical History Surgery Date(Month/Year) left ankle surgery [facility] Dr. Nate Prince 11/12/22 Multiple hernia repairs left ankle arthroscopic, trino nt debridment, hardware removal, peroneal tendon 12/21/23
--- OUTSIDE RECORDS SUMMARY | 2025-02-23 12:10 | XMS_ITS | Encounter Summary ---
Author Organization [facility] Address [address] [place] [address] Care Team Providers Care Ventilation Mechanic Name Role Phone Gracy Medina MD Primary Care Provider [phone] Gracy Medina MD Unavailable [phone] Source Comments In the event this information is protected by the Federal Confidentiality of Alcohol and Drug AbusePatient Records regulations: The Federal rules restrict any use of the information to criminally investigate or prosecute any alcohol or drug abuse patient.[facility] Encounter Details Date Type Department Care Team (Late st Contact Info) Description 05/11/2023 Patient Msg [facility] [place] [address] [place] [address] Provider, [facility] Social History Tobacco Use Types Packs/Day Years Used Date Smoking Tobacco: Some Days Smokeless Tobacco: Never Area Deprivation Index Answer Date José Luis rded National Score (1-100), lower number is lower ri sk 87 03/27/2023 State Score (1-10), lower number is lower risk 8 03/27/2023 Data from: https://www.neighborhoodatlas.medicine.[facility].edu/. Last address used for calculation [address] [...] hearing? Answer Date of Assessment Author No 04/19/2021 10:17 AM Sofi Dickey RN * Are you blind or do you have serious difficulty seeing, even when wearing glasses? Answer Date of Assessment Author No 04/19/2021 10:17 AM Sofi Dickey RN * Do you have serious difficulty walking or climbing stairs? Answer Date of Assessment Author No 04/19/2021 10:17 AM Sofi Dickey RN * Do you have difficulty dressing or bathing? Answer Date of Assessment Author No 04/19/2021 10:17 AM Sofi Dickey RN * Because of a physical, mental, or emotional condition, do you have difficulty doing errands alone such as visiting a doctor's office or shopping? Answer Date of Assessment Author No 04/19/2021 10:17 AM Sofi Dickey RN documented as of this encounter Mental Status * Because of a physical, mental, or emotional condition, do you have serious difficulty concentrating, remembering, or making decisions? Answer Entry Date Author No 04/19/2021 10:17 AM Sofi Dickey RN documented in this encounter Plan of Treatment Not on file documented as of this encounter Visit Diagnoses Not on filedocumented in this encounter Care Teams Ventilation Mechanic Relationship Specialty Start Date End Date Gracy Medina MD [address] [place] [address] PCP - General Family Medicine 04/11/21 Gracy Medina MD [address] [place] [address] Referring Family Medicine 03/07/23 documented as of this encounter
--- OUTSIDE RECORDS SUMMARY | 2025-02-23 12:10 | XMS_ITS | CCD ---
Author Organization [facility] Care Team Providers Care Head Of Strategy Name Role Phone PHYSICIAN, DEFAULT Unavailable Unavailable [...] Unavailable CAROL, BRAYAN Primary Care Unavailable KRISTINE ., FLORENCIA Consulting [...] Admitting Unavailable CAROL, BRAYAN Attending Unavailable CAROL, BRAYAN Primary Care Unavailable Gracy Medina MD Primary Care Provider [phone] Gracy Medina MD Unavailable GRACY MEDINA Primary Care Unavailable SHARITA MYERS Attending Unavailable [...] M Attending Unavailable DAVID LEON Attending Unavailable Carol Gracy DESHPANDE Unavailable [phone] Unallocated , [place] Provider Primary Care Provi cinthya Jaspreet Cortez Attending Unavailab Jaspreet Lim Admitting Unavailab le Carol, Gracy Primary Care Unavailable NONE, XXXX Primary Care Physician Unavailab DO Nash Grace Attending Unavailable German Sheehan Attending Unavailable KRISTI OWUSU Attending Unavailabl gerardo DEGROOT, EHAB Attending Unavailable ZANE, EHAB Attending Unavailable BETH GUEVARA Attending Unavailable Allergies Allergy Classification Reported Allergen(s) Allergy Type Date of Onset Reaction(s) Facility (20 sources) Bacitracin; Translations: [bacitracin] Drug Allergy 4 Unknown [facility] (20 sources) Vancomycin; Translations: [vancomycin] Drug Allergy 4 Unknown [facility] (11 sources) Tape 1 Drug allergy rash [facility] Comment on above: can use paper tape (11 sources) lamoTRIgine; Translations: [LAMOTRIGINE] Drug Allergy 2 Mental Status Change, Unknown (qualifier value) [facility] (1 source) Bacitracin Drug Allergy 3 [facility] Repository (2 sources) lamoTRIgine; Translations: [LaMICtal] Drug Allergy [facility] Repository (1 source) Vancomycin Drug Allergy [facility] Repository (4 sources) Clindamycin; Translations: [clindamycin] Drug Allergy 4 Unknown (qualifier value) [facility] (2 sources) Lamotrigine Allergy to substance 3 Unknown [facility] (2 sources) Wound Dressing Adhesive Drug Allergy 3 Rash [facility] (1 source) Bacitracin Drug Allergy 3 [facility] Repository (1 source) lamoTRIgine Drug Allergy 3 [facility] Repository (1 source) Vancomycin Drug Allergy 3 [facility] Repository (1 source) Adhesive Tape; Translations: [Tape] Propensity to adverse reactions (disorder) [facility] Repository Medications Current Medications Medication Drug Class(es) Dates Sig (Normalized) Sig (Original) acetaminophen 325 mg / HYDROcodone bitartrate 5 mg oral tablet (3 sources) Opioid Agonist Start: 01-01-2022 [place] 325 mg-5 mg oral tablet 1 tab(s), Oral, q6hr for pain, 12 tab(s), Refill(s) 0 Start Date: 01/01/22 Status: Ordered acetaminophen 325 mg / oxyCODONE hydrochloride 5 mg oral tablet (10 sources) Opioid Agonist Start: 12-21-2023 take 1 tablet by mouth every six hours as needed for pain oxyCODONE-acetami nophen (Percocet) 5-325 MG tablet TAKE 1 TABLET BY MOUTH EVERY 6 HOURS NEEDED FOR PAIN FOR 7 DAYS 12/21/2023 Active Start: 11-12-2022 Percocet 5 mg- 325 mg oral tablet See Instructions, 40 tab(s), Refill(s) 0, 1-2 tab(s) Oral q4hr, [facility]/pharmacy #[id number], 149.9, cm, 11/12/22 6:57:00 EST, Height/Length Dosing, 65.4, kg, 11/12/22 6:57:00 EST, Weight Dosing Start Date: 11/12/22 Status: Ordered Quantity: 40.0 Unit: tab(s) Repeat number: 1 [id number] 200 actuat albuterol 0.09 mg/actuat metered dose inhaler (17 sources) beta2-Adrenergic Agonist Start: 01-02-2024 take 2 puff(s) by inhalation every six hours for wheezing albuterol HFA 90 mcg/act inhaler Indications: Chronic obstructive pulmonary disease, unspecified COPD type ([facility]) INHALE 2 PUFFS EVERY 6 HOURS IF NEEDED FOR SHORTNESS OF BREATH OR WHEEZING 18 g 3 01/02/2024 Active Start: 11-11-2012 take 3 mL by inhalat ion every four hours as needed albuterol 0.083% [...] Refill(s) 0 Start Date: 11/11/12 Status: Ordered Repeat number: 1 Ventolin HFA Act anil Albuterol Sulfate (2.5 MG/ 3 ML) 2.5 MG/3ML 0.083% Nebulization Solution (2 sources) Albuterol Sulfat e (2.5 MG/ 3 ML) 2.5 MG/3ML 0.083% Nebulization Solution 3ml Inhalation 4 times a day Active alendronic acid 70 mg oral tablet (3 sources) Bisphosphonate Start: 12-04-2023 End: 11-17-2024 alendronate (Fosamax) 70 MG tablet Indications: Other osteoporosis without current pathological fracture TAKE 1 TAB WEEKLY IN MORNING ON EMPTY STOMACH WITH FULL GLASS OF WATER.DO NOT EAT/LIE DOWN FOR 30MIN 12 tablet 11/17/2024 Active ALPRAZolam 0.5 mg oral tablet (15 sources) Benzodiazepine Start: 11-12-2022 take 1 tablet by mouth three times daily as needed for anxiety Xanax 0.5 mg Tab 0.5 mg = 1 tab(s), Oral, TID, PRN for anxiety, prn, Refills(s) 0 Start Date: 11/12/22 Status: Ordered Repeat number: 1 ALPRAZolam Activ e Comment on above: Take 0.5 mg by mouth . aspirin 81 mg delayed release oral tablet (1 source) Platelet Aggregation Inhibitor, Nonsteroidal Anti-inflammatory Drug Start: 11-12-2022 End: 12-12-2022 take 2 tablets by mouth once daily aspirin 81 mg Oral EC Tab 162 mg = 2 tab(s), Oral, Daily, X 30 day(s), # 60 tab(s), Refills(s) 0, Pharmacy: [facility]/pharmacy #[id number], 149.9, cm, 11/12/22 6:57:00 EST, Height/Length Dosing, 65.4, kg, 11/12/22 6:57:00 EST, Weight Dosing Start Date: 11/12/22 Stop Date: 12/12/22 Status: Ordered Symbicort (13 sources) Corticosteroid, beta2-Adrenergic Agonist Start: 11-12-2022 Symbicort Inhalation, BID, Refill(s) 0 Start Date: 11/12/22 Status: Ordered Repeat number: 1 Start: 11-12-2022 Symbicort Inha lation, BID, Refill(s) 0 Start Date: 11/12/22 Status: Ordered Start: 11-01-2022 take 2 puff(s) by mo uth twice daily Symbicort 160-4.5 MCG/ACT inhaler INHALE 2 PUFFS BY MOUTH TWICE A DAY *RINSE MOUTH AFTER USE* 11/01/2022 Active Start: 11-01-2022 take 2 puff(s) by mo uth twice daily budesonide-formoterol (SYMBICORT) 160-4.5 mcg/actuation inhaler [...] day(s), # 56 cap(s), Refills(s) 0, Pharmacy: [facility]/pharmacy #[id number], 150, cm, 10/13/23 15:54:00 EST, Height/Length Dosing, 60, kg, 10/13/23 15:54:00 EST, Weight Dosing Start Date: 10/13/23 Stop Date: 10/27/23 Status: Ordered Start: 11-11-2012 dicyclomine (B ENTYL) 20 mg tablet Take 20 mg by mouth. 0 11/11/2012 Active Start: 11-11-2012 take 1 tablet by [facility] four times daily as needed for pain Bentyl 20 mg Tab 20 mg = 1 tab(s), Oral, QID, PRN As needed for pain or spasm, # 12 tab(s), Refills(s) 0 Start Date: 11/11/12 Status: Ordered Quantity: 12.0 Unit: tab(s) Repeat number: 1 Comment on above: Take 20 mg by mouth. docusate sodium 100 mg oral capsule (17 sources) Start: 04-19-20 take 1 capsule by mouth twice daily as needed for constipation Colace 100 mg Cap 100 mg = 1 cap(s), Oral, BID, PRN for constipation, # 20 cap(s), Refills(s) 0, Pharmacy: [facility]/pharmacy #[id number], 149.9, cm, 11/12/22 6:57:00 EST, Height/Length Dosing, 65.4, kg, 11/12/22 6:57:00 EST, Weight Dosing Start Date: 11/12/22 Status: Ordered Quantity: 20.0 Unit: cap(s) Repeat number: 1 Comment on above: Take 1 capsule by [facility] twice daily. dronabinol 5 mg oral capsule (2 sources) Cannabinoid Start: 01-28-20 take 1 capsule by mouth every twelve hours Dronabinol 5 MG 1 CAPSULE Orally bid for 30 day(s) January, Active ibuprofen 600 mg oral tablet (8 sources) Nonsteroidal Anti-inflammatory Drug Start: 11-12-19 take 1 tablet by mouth every eight hours as needed for pain ibuprofen 600 mg Tab 600 mg = 1 tab(s), Oral, q8hr, PRN as needed for pain, with food or milk, # 50 tab(s), Refills(s) 0, Pharmacy: [facility]/pharmacy #[id number], 149.9, cm, 11/12/22 6:57:00 EST, Height/Length Dosing, 65.4, kg, 11/12/22 6:57:00 EST, Weight Dosing Start Date: 11/12/22 Status: Ordered Quantity: 50.0 Unit: tab(s) Repeat number: 1 Lactulose (11 sources) Osmotic Laxative Start: 11-11-19 lactulose 10 g/15 mL Oral Syrup 20 gm/30 mL 10 gram = 15 mL, Oral, BID, Take with 8 ounces of water, # 240 mL, Refills(s) 0 Start Date: 11/11/12 Status: Ordered Quantity: 240.0 Unit: mL Repeat number: 1 Start: 11-11-2012 lactulose 10 g /15 mL [...] Print Requisition Start Date: 11/11/12 Status: Ordered lisinopril 5 mg oral tablet (1 source) Angiotensin Converting Enzyme Inhibitor Start: 11-24-2023 End: 11-23-2024 take 1 tablet by mouth in the morning lisinopril 5 MG tablet Take 5 mg by mouth in the morning. 11/24/2023 11/23/2024 Active methocarbamol 750 mg oral tablet (5 sources) Muscle Relaxant Start: 01-02-2024 take 1 tablet by mouth three times daily as needed for pain methocarbamol (Robaxin) 750 MG tablet Indications: Dorsalgia, unspecified TAKE 1 TABLET BY MOUTH THREE TIMES A DAY NEEDED FOR PAIN 90 tablet 1 01/02/2024 Active Start: 01-01-2022 End: 01-04-2022 take 1 tablet by mouth three times daily Robaxin 500 mg Tab 500 mg = 1 tab(s), Oral, TID, X 3 day(s), # 12 tab(s), Refills(s) 0 Start Date: 01/01/22 Stop Date: 01/04/22 Status: Ordered Methocarbamol 75 0 MG Oral for 20 Days Active 24 hr metoprolol succinate 50 mg extended release oral tablet (20 sources) beta-Adrenergic Zeeshan Start: 11-12-2022 take 1 tablet by mouth at bedtime metoprolol 50 mg ER Tab 50 mg = 1 tab(s), Oral, Bedtime, Refills(s) 0 Start Date: 11/12/22 Status: Ordered Repeat number: 1 Start: 07-14-2022 take 1 tablet by delmi th once daily metoprolol succinate ER (TOPROL XL) 50 mg 24 hr tablet TAKE 1 TABLET BY MOUTH EVERY DAY FOR 90 DAYS 0 07/14/2022 Active take 1 tablet by delmi th every twenty-four hours in the morning metoprolol succinate XL (Toprol-XL) 50 MG 24 hr tablet Take 100 mg by mouth in the morning. Active Metoprolol Succi shavonne ER 25 MG [...] Active Milk of Magnesia 8% oral suspension (10 sources) Start: 013 take 2.4 g by mouth twice daily as needed for constipation Milk of Magnesia 8% oral suspension 2.4 gram = 30 mL, Oral, BID, PRN for constipation, Take with 8 ounces of water, # 360 mL, Refills(s) 0 Start Date: 11/11/12 Status: Ordered Quantity: 360.0 Unit: mL Repeat number: 1 Start: 11-11-2012 take 2.4 g by mouth [...] Print Requisition Start Date: 11/11/12 Status: Ordered naproxen 500 mg oral tablet (1 source) Nonsteroidal Anti-inflammatory Drug Start: 02-02-2025 End: 02-12-2025 take 1 tablet by mouth twice daily naproxen 500 mg Tab 500 mg = 1 tab(s), Oral, BID, X 10 day(s), # 20 tab(s), Refills(s) 0, Pharmacy: [facility]/pharmacy #[id number], 149, cm, 02/02/25 18:37:00 EDT, Height/Length Dosing, 65, kg, 02/02/25 18:37:00 EDT, Weight Dosing Start Date: 02/02/25 Stop Date: 02/12/25 Status: Ordered Quantity: 20.0 Unit: tab(s) Repeat number: 1 omeprazole 40 mg delayed release oral capsule (19 sources) Proton Pump Inhibitor Start: 11-11-2012 take 1 capsule by mouth once daily Prilosec 40 mg Cap-EC = 1 cap(s), Oral, Daily, # 30 cap(s), Refills(s) 0 Start Date: 11/11/12 Status: Ordered Quantity: 30.0 Unit: cap(s) Repeat number: 1 take 40 mg by mouth once daily O MEPRAZOLE (PRILOSEC ORAL) Take 40 mg by mouth once daily. 0 Active Comment on above: Take 40 mg by mouth once daily. pantoprazole 40 mg delayed release oral tablet (12 sources) Proton Pump Inhibitor Start: take 1 tablet by mouth once daily pantoprazole (ProtoNix) 40 MG EC tablet Indications: Gastro-esophageal reflux disease without esophagitis TAKE 1 TABLET BY MOUTH EVERY DAY 90 tablet 3 09/11/2023 Active Start: 11-12-2022 take 1 tablet by delmi once daily Protonix 20 mg Tab-DR 20 mg = 1 tab(s), Oral, Daily, Refills(s) 0 Start Date: 11/12/22 Status: Ordered Repeat number: 1 Start: 09-08-2016 take 1 tablet by delmi [...] Ordered ProAir HFA 90 mcg/inh inhalation aerosol (9 sources) Start: 11-11-2012 take 2 puff(s) by inhalation four times daily ProAir HFA 90 mcg/inh inhalation aerosol 2 puff(s), Inhalation, QID Wheezing, Refill(s) 0 Start Date: 11/11/12 Status: Ordered Repeat number: 1 Start: 11-11-2012 take 2 puff(s) by in halation four times daily ProAir HFA 90 mcg/inh inhalation aerosol 2 puff(s), Inhalation, QID Wheezing, Refill(s) 0 Start Date: 11/11/12 Status: Ordered Start: 11-11-2012 take 2 puff(s) by in halation four times daily as needed for wheezing ProAir HFA 90 mcg/inh inhalation aerosol 2 puff(s), Inhalation, QID PRN Wheezing, Refill(s) 0 Start Date: 11/11/12 Status: Ordered QUEtiapine 25 mg oral tablet (20 sources) Atypical Antipsychotic Start: 11-27-2023 take 1 tablet by mouth at bedtime QUEtiapine (SEROquel) 25 MG tablet Take 25 mg by mouth at bedtime 11/27/2023 Active Start: 11-21-2023 take 1 tablet by delmi th at bedtime QUEtiapine (SEROquel) 50 MG tablet Take 50 mg by mouth at bedtime 11/21/2023 Active Start: 11-12-2022 take 75 mg by mouth at bedtime Seroquel 75 mg, Oral, Bedtime, Refills(s) 0 Start Date: 11/12/22 Status: Ordered Repeat number: 1 Start: 11-12-2022 take 75 mg by mouth [...] on above: Take 2 tablets by mo [facility] every 6 hours. benztropine mesylate 1 mg oral tablet (9 sources) Anticholinergic, Antihistamine Start: 04-19-2021 take 1 tablet by mouth twice daily benztropine (COGENTIN) 1 mg tablet Take 1 tablet by mouth twice daily. 0 04/19/2021 Active Comment on above: Take 1 tablet by delmi th twice daily. busPIRone hydrochloride 5 mg oral tablet (9 sources) busPIRone (BUSPA R) 5 mg tablet Take 30 mg by [...] pain, unspecified] Onset: 1 Resolved: 2 Episodic Adjustment disorders (2 sources) Family tension; Translations: [Reaction to severe stress, unspecified] Onset: 3 02-13-2023 Chronic Anxiety disorders (19 sources) Posttraumatic stress disorder; Translations: [Mixed anxiety and depressive disorder] Onset: 3 05-14-2019 Chronic Asthma (14 sources) Asthma; Translations: [Unspecified asthma, uncomplicated] Onset: 3 11-11-2012 Chronic Bacterial infection; unspecified site (11 sources) Staphylococcal infectious disease 05-14-2019 Episodic Cardiac dysrhythmias (2 sources) Supraventricular tachycardia; Translations: [SVT (supraventricular tachycardia)] Onset: 2 02-23-2023 Chronic Cardiac dysrhythmias (8 sources) Tachycardia; Translations: [Tachycardia, unspecified] Onset: 2 02-13-2023 Episodic Chronic obstructive pulmonary disease and bronchiectasis (2 sources) Chronic obstructive lung disease; Translations: [Chronic obstructive pulmonary disease, unspecified] Onset: 3 05-02-2023 Chronic Endometriosis (11 sources) Endometriosis (clinical) 12-06-2013 Chronic Esophageal disorders (20 sources) Gastroesophageal reflux disease; Translations: [Peptic stricture of esophagus] Onset: 2 11-11-2012 Chronic Essential hypertension (5 sources) Hypertensive disorder; Translations: [Essential hypertension] Onset: 3 10-13-2023 Chronic Fluid and electrolyte disorders (1 source) Hypokalemia; Translations: [Hypokalemia] Onset: 4 Episodic Fracture of upper limb (1 source) Closed fracture of shaft of humerus; Translations: [Unspecified fracture of shaft of humerus, left arm, initial encounter for closed fracture] Onset: 2 Episodic Headache; including migraine (6 sources) Chronic post-traumatic headache; Translations: [Chronic post-traumatic headache, not intractable] Onset: 0 02-13-2023 Chronic Hypertension with complications and secondary hypertension (2 sources) Hypertensive heart disease without heart failure; Translations: [Hypertensive heart disease without heart failure] Onset: 5 Chronic Intestinal infection (2 sources) Clostridial enteric disease; Translations: [Enterocolitis due to Clostridium difficile, not specified as recurrent] Episodic Mood disorders (17 sources) Bipolar I disorder; Translations: [Major depression, single episode] Onset: 3 05-14-2019 Chronic Nausea and vomiting (2 sources) Nausea; Translations: [Nausea] Episodic Osteoporosis (2 sources) Osteoporosis; Translations: [Age-related osteoporosis without current pathological fracture] Chronic Other acquired deformities (13 sources) Scoliosis deformity of spine; Translations: [Scoliosis, unspecified] Onset: 3 05-14-2019 Chronic Other bone disease and musculoskeletal deformities (5 sources) Aseptic necrosis of head of humerus; 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] Onset: 3 Chronic Other bone disease and musculoskeletal deformities (1 source) Idiopathic aseptic necrosis of right humerus; 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)] Onset: 3 Chronic Other bone disease and musculoskeletal deformities (2 sources) Avascular necrosis of the head of humerus; 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] Onset: 3 02-13-2023 Chronic Other bone disease and musculoskeletal deformities (2 sources) Idiopathic kyphoscoliosis; Translations: [Other idiopathic scoliosis, site unspecified] Onset: 4 02-23-2023 Chronic Other connective tissue disease (1 source) [...] 2 Resolved: 2 Chronic Other gastrointestinal disorders (3 sources) Irritable bowel syndrome 10-13-2023 Chronic Other gastrointestinal disorders (3 sources) Constipation; Translations: [Constipation, unspecified] 12-21-2024 Episodic Other gastrointestinal disorders (2 sources) Heartburn; Translations: [Heartburn] Episodic Other gastrointestinal disorders (2 sources) Diarrhea; Translations: [Diarrhea, unspecified] Episodic Other gastrointestinal disorders (2 sources) Esophageal dysphagia; Translations: [Dysphagia, pharyngoesophageal phase] Episodic Other gastrointestinal disorders (1 source) Constipation, unspecified; Translations: [Constipation, unspecified] Onset: 4 Episodic Other nervous system disorders (2 sources) Difficulty walking; Translations: [Difficulty in walking, not elsewhere classified] Onset: 3 02-13-2023 Chronic Other nervous system disorders (2 sources) Neuropathy; Translations: [Polyneuropathy, unspecified] Onset: 3 02-13-2023 Chronic Other nervous system disorders (1 source) Allodynia; Translations: [Other disturbances of skin sensation] Episodic Other nutritional; endocrine; and metabolic disorders (2 sources) Loss of appetite; Translations: [Anorexia] Episodic Other screening for suspected conditions (not mental disorders or infectious disease) (2 sources) Abnormal findings on diagnostic imaging of heart and coronary circulation; Translations: [Abnormal findings on diagnostic imaging of heart and coronary circulation] Onset: 5 Episodic Peripheral and visceral atherosclerosis (3 sources) Peripheral vascular disease, unspecified; Translations: [Peripheral vascular disease, unspecified] Onset: 3 Chronic Residual codes; unclassified (2 sources) Pain; Translations: [Pain, unspecified] Episodic Residual codes; unclassified (1 source) Pain, unspecified; Translations: [Pain] Onset: 3 Episodic Substance-related disorders (20 sources) Smoker; Translations: [Nicotine dependence] Onset: 1 01-01-2022 Chronic Comment on above: Added secondary to d ocumentation in Social History. Superficial injury; contusion (2 sources) Contusion of left lesser toe; Translations: [Contusion of left lesser toe(s) without damage to nail, initial encounter] Onset: 4 Episodic Past or Other Problems Problem Classification Problem Date Documented Da te Episodic/Chronic Abdominal hernia (11 sources) Incisional hernia; Translations: [Incisional hernia without obstruction or gangrene] Onset: 07-08-2021 Episodic Allergic reactions (4 sources) Environmental allergy; Translations: [Other allergy status, other than to drugs and biological substances] Onset: 03-08-2019 02-23-2023 Episodic E Codes: Natural/environment (1 source) Exposure to other specified factors, initial encounter; Translations: [EXPOSURE OTHER SPEC FACTORS INITIAL] Onset: 03-22-2022 Episodic Fracture of lower limb (5 sources) Closed trimalleolar fracture; Translations: [Displaced trimalleolar fracture of left lower leg, initial encounter for closed fracture] Onset: 11-12-2022 Episodic Immunizations and screening for infectious disease (1 source) Encounter for immunization; Translations: [ENCOUNTER FOR IMMUNIZATION] Onset: 08-04-2022 Episodic Open wounds of extremities (4 sources) Laceration without foreign body of right thumb without damage to nail, initial encounter; Translations: [LAC NO FB RT THUMB NO DMG NAIL INIT] Onset: 08-02-2022 Episodic Other aftercare (1 source) Other halfway (current) drug therapy; Translations: [[facility] CURRENT DRUG THERAPY] Onset: 11-17-2022 Episodic Other aftercare (4 sources) Encounter for change or removal of surgical wound dressing; Translations: [ENC CHG/REMOVAL SURG WOUND DRSG] Onset: 11-15-2022 Episodic Other connective tissue disease (4 sources) Pain in leg, unspecified; Translations: [PAIN IN LEG UNSPECIFIED] Onset: 04-18-2022 Episodic Other connective tissue disease (2 sources) H/O: arthrodesis; Translations: [Arthrodesis status] Onset: 03-12-2004 02-23-2023 Episodic Other gastrointestinal disorders (4 sources) Dysphagia; Translations: [Dysphagia, unspecified] Onset: 02-13-2023 02-13-2023 Episodic Other gastrointestinal disorders (2 sources) Diarrhea, unspecified; Translations: [DIARRHEA UNSPECIFIED] Onset: 05-04-2022 Resolved: 05-04-2022 Episodic Other gastrointestinal disorders (2 sources) Abdominal distension (gaseous); Translations: [ABDOMINAL DISTENSION GASEOUS] Onset: 05-04-2022 Resolved: 05-04-2022 Episodic Other nervous system disorders (2 sources) Paresthesia; Translations: [Paresthesia of skin] Onset: 02-13-2023 02-13-2023 Episodic Other non-traumatic joint disorders (2 sources) Hip pain; Translations: [Pain in unspecified hip] Onset: 02-13-2023 02-13-2023 Episodic Residual codes; unclassified (4 sources) Uterus absent; Translations: [Acquired absence of both cervix and uterus] Onset: 02-13-2023 02-13-2023 Episodic Residual codes; unclassified (9 sources) Postoperative state; Translations: [Other specified postprocedural states] Onset: 04-19-2021 04-19-2021 Episodic Residual codes; unclassified (2 sources) Acquired absence of cervix and uterus; Translations: [Acquired absence of both cervix and uterus] Onset: 03-08-2019 02-23-2023 Episodic Residual codes; unclassified (2 sources) Inadequate sleep hygiene; Translations: [Inadequate sleep hygiene] Onset: 10-28-2022 02-23-2023 Episodic Skin and subcutaneous tissue infections (9 sources) Cellulitis; Translations: [Cellulitis, unspecified] Onset: 11-13-2015 11-13-2015 Episodic Spondylosis; intervertebral disc disorders; other back problems (2 sources) Sciatica; Translations: [Sciatica, unspecified side] Onset: 03-12-2004 02-23-2023 Episodic Sprains and strains (2 sources) Sprain of foot; Translations: [Unspecified sprain of unspecified foot, initial encounter] Onset: 03-22-2022 Episodic Results Test Name Value Interpretation Reference Range Facility Office Visiton 02-20-2025 Follow-up visit [id number] Nathaniel Marcial 1975 Provider Department Center 02/20/2025 MAKSIM POTTER Family History Problem Relation Age of Onset Heart failure Mother Heart failure Father Transient ischemic attack Father No Known Problems Sister No Known Problems Brother Family Status - Relation Status Age at Mother Father Sister Brother Level of Service:05450 MT OFFICE/OUTPATIENT ESTABLISHED MOD MDM 30 MIN Normal [facility] Office Visiton 02-05-2025 Follow-up visit [id number] Nathaniel Marcial 1975 Date Provider Department Center 02/05/2025 MAKSIM POTTER Family History Problem Relation Age of Onset Heart failure Mother Heart failure Father Transient ischemic attack Father No Known Problems Sister No Known Problems Brother Family Status - Relation Status Age at Mother Father Sister Brother Level of Service:27641 MT OFFICE/OUTPATIENT ESTABLISHED MOD MDM 30 MIN Normal [facility] Ambulatory Visit Summaryon 0 02-04-2025 Ambulatory Visit Summary Ambulatory Visit Summary NATHANIEL MARCIAL :1975 Visit Date:02/04/2025 Ambulatory Visit Instructions Your Diagnosis Contusion of rib Smoker BMI 28.0-28.9,adult Elevated blood pressure, situational Your Care Team Attending Physician - MARRY OWUSU CNP Primary Care Physician - NONE, XXXX This Is Your Medications List albuterol (ProAir HFA 90 mcg/inh inhalation aerosol) albuterol (albuterol 0.083% Inh Teresita 3 mL) alprazolam (Xanax 0.5 mg Tab) dicyclomine (Bentyl 20 mg Tab) ibuprofen (ibuprofen 600 mg Tab) metoprolol (metoprolol 50 mg ER Tab) naproxen (naproxen 500 mg Tab) omeprazole (Prilosec 40 mg Cap-EC) pantoprazole (Protonix 20 mg Tab-DR) quetiapine (Seroquel) Procedures Performed Appendectomy, x2, Colonoscopy, Hysterectomy, spine surgery for scoliosis. Discharge Vitals Temperature (Oral) 36.5 ???C Heart Rate (Peripheral) 82 Respiratory Rate 20 Blood Pressure 160/96 Height 59 in Height 149.0 cm Weight 139.993 lb Weight 63.5 kg BMI 28.6 What to do next Scheduled Follow-Up Appointments 2024 10:20 AM EDT With: German Sheehan DO Where: [facility] [place] [address] [place] [address]- Medications What How Much When Instructions Unchanged albuterol (albuterol 0.083% Inh Teresita 3 mL) 0.083% - 3mL dosing units Inhalation Every 4 hours as needed for Wheezing Unchanged albuterol (ProAir HFA 90 mcg/ inh inhalation aerosol) 2 Puffs Inhalation 4 times a day as needed for Wheezing Unchanged alprazolam (Xanax 0.5 mg Tab) 1 Tablets By Mouth 3 times a day as needed for for anxiety prn Unchanged dicyclomine (Bentyl 20 mg Tab) 1 Tablets By Mouth 4 times a day as needed for As needed for pain or spasm Unchanged ibuprofen (ibuprofen 600 mg Tab) 1 Tablets By Mouth Every 8 hours as needed for as needed for pain with food or milk Unchanged metoprolol (metoprolol 50 mg ER Tab) 100 Milligram By Mouth At bedtime Unchanged naproxen (naproxen 500 mg Tab) 1 Tablets By Mouth 2 times a day Duration: 10 Days Unchanged omeprazole (Prilosec 40 mg Cap-EC) 1 Capsules By Mouth Every day Unchanged pantoprazole (Protonix 20 mg Tab-DR) 1 Tablets By Mouth Every day Unchanged quetiapine (Seroquel) 50 Milligram By Mouth At bedtime Allergies LaMICtal (Unknown) Tape (rash) bacitracin clindamycin (Unknown) vancomycin Problems Ongoing - Any problem that you are currently receiving treatment for. Dextroscoliosis of thoracic spine Smoker Historical - Any problem that you are no longer receiving treatment for. Asthma Endometriosis GERD (gastroesophageal reflux disease) Hypertension IBS - Irritable bowel syndrome Patient Survey You may receive a survey via text or e-mail asking about your office visit. Please share your experience with us by completing your survey. We appreciate your feedback and thank you for choosing us for your care. Education Materials Rib Contusion A rib contusion is a deep bruise on the rib area. Contusions are the result of a blunt trauma that causes bleeding and injury to the tissues under the skin. A rib contusion may involve bruising of the ribs and of the skin and muscles in the area. The skin over the contusion may turn blue, purple, or yellow. Minor injuries result in a painless contusion. More severe contusions may be painful and swollen for a few weeks. What are the causes? This condition is usually caused by a hard, direct hit to an area of the body. This often occurs while playing contact sports. What are the signs or symptoms? Symptoms of this condition include: ??? Swelling and redness of the injured area. ??? Discoloration of the injured area. ??? Tenderness and soreness of the injured area. ??? Pain with or without movement. ??? Pain when breathing in. How is this diagnosed? This condition may be diagnosed based on: ??? Your symptoms and medical history. ??? A physical exam. ??? Imaging tests???such as an X-ray, CT scan, or MRI???to determine if there were internal injuries or broken bones (fractures). How is this treated? This condition may be treated with: ??? Rest. This is often the best treatment for a rib contusion. ??? Ice packs. This reduces swelling and inflammation. ??? Deep-breathing exercises. These may be recommended to reduce the risk for lung collapse and pneumonia. ??? Medicines. Ampy-wyk-vumhqiz or prescription medicines may be given to control pain. ??? Injection of a numbing medicine around the nerve near your injury (nerve block). Follow these instructions at home: Medicines ??? Take mkbe-pmm-euugkim and prescription medicines only as told by your health care provider. ??? Ask your health care provider if the medicine prescribed to you: ? Requires you to avoid driving or using machinery. ? Can cause constipation. You may need to take these action (more content not included)... Normal [facility] Family Medicine Office/Clini c Noteon 02-04-2025 Family Medicine Office/Clinic Note Family Medicine Office/Clinic Note Chief Complaint The patient presents for follow-up after a suspected rib contusion and increased blood pressure readings. HPI Staff Nathaniel is a 49 year old female presenting with ER followup: [place] [facility] [facility] [place]: 02/02/25 Symptoms the patient presented with: contusion of left side ribs Current concerns: patient was given Ketorolac 30 mg.... Triamcinolone 40 mg..... Naproxen 500mg BID X 10 days she thinks this is worse, she has sharp pains and a popping sound on her rib Establishing care with Dr. Sheehan on February 27 History of Present Illness 49-year-old female presenting with follow-up for a rib contusion. The patient sustained the injury on the after an accidental fall against a cooler at a grocery store. Although the initial examination revealed a pink area, no bruising or fracture was observed on the X-ray. The patient reports worsening symptoms since the incident and is concerned about a possible unvisualized fracture. Pain management includes newly started naproxen, 500 mg, taken twice daily, though only two doses were taken before this visit. She is requesting something for compression of the rib cage for pain and it was explained this would not be ordered. Concurrently, the patient reports elevated blood pressure readings with noted levels of 168/96 and a previous 160/80 recorded during an ER visit. The patient associates this with pain resulting from the rib injury. The current regimen of heart medication usually keeps blood pressure low. Discussion also addressed rib compression wraps, which were discouraged due to the risk of pneumonia. Review of Systems PHQ Score Initial Depression Screen Score: 0 SCORE - Cardiovascular: Reports elevated blood pressure readings. - Musculoskeletal: Reports pain associated with rib contusion. - Respiratory: Denies difficulty with lung expansion due to compression wraps. Physical Exam Vitals & Measurements T: 36.5 ???C(Oral) HR: 82(Peripheral) RR: 20 BP: 160/96 SpO2: 100% HT: 59 in HT: 149.0 cm WT: 139.993 lb WT: 63.5 kg BMI: 28.6 General: alert, no acute distress Skin: warm, dry Head: no trauma, normocephalic Cardiovascular: regular rate and rhythm, normal peripheral perfusion Respiratory: Lungs CTA, respirations non labored Chest wall: mild deformity, tenderness under the left breast- no discoloration Back: No tenderness, Normal ROM, Normal alignment. Extremities: no deformity, no trauma Neurological: oriented x 4, LOC appropriate for age speech normal Assessment/Plan 1. Contusion of rib (S20.219A: Contusion of unspecified front wall of thorax, initial encounter) - Reviewed ED discharge report and Xray of the left side ribs- negative Xray - Continue naproxen 500 mg twice daily. - Avoid rib compression wraps. - Use ice for pain management. 2. Elevated blood pressure, situational (R03.0: Elevated blood-pressure reading, without diagnosis of hypertension) - Monitor blood pressure before next cardiology visit. - Maintain current heart medication regimen. - Follow up with barrel header for medication evaluation. Follow-up No qualifying data available Patient Education Rib Contusion Problem List/Past Medical History Ongoing Dextroscoliosis of thoracic spine Smoker Historical Asthma Endometriosis GERD (gastroesophageal reflux disease) Hypertension IBS - Irritable bowel syndrome Procedure/Surgical History Appendectomy, x2, Colonoscopy, Hysterectomy, spine surgery for scoliosis. Medications albuterol 0.083% Inh Teresiat 3 mL, 0.083% - 3mL dosing units, Inhalation, q4hr, PRN Bentyl 20 mg Tab, 20 mg= 1 tab(s), Oral, QID, PRN ibuprofen 600 mg Tab, 600 mg= 1 tab(s), Oral, q8hr, PRN metoprolol 50 mg ER Tab, 100 mg, Oral, Bedtime naproxen 500 mg Tab, 500 mg= 1 tab(s), Oral, BID Prilosec 40 mg Cap-EC, 1 cap(s), Oral, Daily ProAir HFA 90 mcg/inh inhalation aerosol, 2 puff(s), Inhalation, QID, PRN Protonix 20 mg Tab-DR, 20 mg= 1 tab(s), Oral, Daily, Not taking Seroquel, 50 mg, Oral, Bedtime Xanax 0.5 mg Tab, 0.5 mg= 1 tab(s), Oral, TID, PRN Allergies LaMICtal (Unknown) Tape (rash) bacitracin clindamycin (Unknown) vancomycin Social History Alcohol - Denies Alcohol Use, 01/01/2022 Never., 02/04/2025 Substance Abuse - High Risk, 01/01/2022 Current. Marijuana., 02/04/2025 Tobacco - High Risk, 01/01/2022 10 or more cigarettes (1/2 pack or more)/day in last 30 days Tobacco Use:. Cigarettes, 02/04/2025 10 or more cigarettes (1/2 pack or more)/day in last 30 days Tobacco Use:., 02/04/2025 10 or more cigarettes (1/2 pack or more)/day in last 30 days Tobacco Use:., 01/01/2022 Immunizations Vaccine Date Status SARS-CoV-2 (COVID-19) mRNA BNT-162b2 vax 02/08/2021 Recorded SARS-CoV-2 (COVID-19) mRNA BNT-162b2 vax 01/18/2021 Recorded pneumococcal 23-valent vaccine 08/06/2019 Recorded influenza virus vaccine, inactivated 06/10/2019 Recorded influenza, unspecified fo (more content not included)... Normal [facility] Comment on above: Result Comment: Elec tronically Signed By: MARRY OWUSU CNP\byron\Date and Time Signed: 02/04/25 16:49 EDT ED Note-Physicianon 02-04-20 25 ED Note-Physician ED Note-Physician Basic Information Time Seen: Chris Cuevas PA-C 02/02/2025 18:39 Chief Complaint rib pain after hitting ribs on cooler. no fall. left side History of Present Illness Patient is a 49-year-old female that presents today for evaluation of her left rib pain. Patient states that she was at the grocery store yesterday and she excellently bumped the left side of her ribs on the cooler. She states that she felt some mild pain at the time and some increasing soreness throughout the day yesterday. Today she woke up and states it is painful for her to take a big deep breath she is having increasing pain in the left ribs. It does not extend posteriorly. Denies any anterior chest pain. Denies any nausea, vomiting, abdominal pain. States she feels otherwise fine. Review of Systems No other aggravating or relieving factors no other associated symptoms no other prior treatments or complaints. Family: Reviewed and noncontributory Social: lives at home Review of systems negative unless otherwise specified in the HPI. Physical Exam Vitals & Measurements T: 36.6 ???C(Oral) HR: 97(Peripheral) RR: 18 BP: 160/98 SpO2: 97% HT: 149 cm WT: 65 kg BMI: 29.28 General: The patient appears well and in no apparent distress. Patient is resting comfortably on cart. Skin: Warm, dry, no pallor noted. Head: Normocephalic, atraumatic Neck: No JVD Eye: PERRLA, EOMI ENT: Moist mucus membranes Cardiovascular: Regular rate and rhythm. Normal peripheral perfusion Respiratory: CTA bilaterally. No respiratory distress no accessory muscle use no obvious audible wheezing Chest Wall: no deformity. Left-sided chest wall tenderness along the rib cage laterally. Musculoskeletal: normal ROM, no deformity, no swelling GI: Soft no obvious distention. No rebound or rigidity. No guarding. No tenderness. Neurological: A&O moves all extremities equal strength and symmetry Psychiatric: Cooperative and appropriate Medical Decision Making Patient is a 49-year-old female presents today for evaluation of her left rib pain. She bumped it on a cooler at a grocery store yesterday and has had increasing pain ever since. On exam patient is afebrile nontoxic-appearing. SpO2 97% on room air. She is not tachycardic or hypotensive. She is not tachypneic. CTA to bilateral lung grant. She does have left-sided chest wall tenderness along the rib cage laterally. RRR. Abdomen soft nontender. 3 view left rib with 1 view PA chest x-ray interpreted by myself is negative for any acute fracture or any other acute cardiopulmonary process. Given negative x-rays patient likely has contusion of the rib on the left side. For this reason she is given a dose of IM Toradol and Kenalog here in the ED and will be started on naproxen. She will be discharged home with close follow-up with her PCP. We did discuss icing the area. We discussed if she has new or worsening symptoms she should promptly return back to the ED for reevaluation. Return to ED precautions were reviewed with the patient at length. Assessment/Plan Contusion of rib on left side (S20.212A: Contusion of left front wall of thorax, initial encounter) Orders: ketorolac, 30 mg = 1 mL, Injection, IntraMuscular, Once, Stop date 02/02/25 19:38:00 EDT, STAT, Start date 02/02/25 19:38:00 EDT, 02/02/25 19:38:00 EDT naproxen, 500 mg = 1 tab(s), Oral, BID, X 10 day(s), # 20 tab(s), Refills(s) 0, Pharmacy: [id number], 149, cm, 02/02/25 18:37:00 EDT, Height/Length Dosing, 65, kg, 02/02/25 18:37:00 EDT, Weight Dosing triamcinolone, 40 mg = 1 mL, Susp-Inj, IntraMuscular, Once, Stop date 02/02/25 19:38:00 EDT, STAT, Start date 02/02/25 19:38:00 EDT, 02/02/25 19:38:00 EDT XR Ribs Unilat 3 Views Left w/ PA Chest Medications Administered Given Kenalog 40 mg Injection, 40 mg, IntraMuscular ketorolac 30 mg/mL Inj 1 mL, 30 mg, IntraMuscular Disposition Plan Patient Discharge Condition Stable Discharge Disposition Home Discharge Prescription List Prescriptions naproxen 500 mg Tab, 500 mg= 1 tab(s), Oral, BID Follow-up With When Contact Information German Link In 3 days 02/05/[address] [place] [address]- Business (1) Additional Instructions: Patient Education Rib Contusion Attestation Patient seen and evaluated by the physician tv production assistant. Attending physician was present in the emergency department and supervised care. This visit was performed by both the physician and an APC. I performed all aspects of the MDM as documented. This report was transcribed using voice recognition software. Every effort was made to ensure accuracy, however, inadvertently computerized denture finisher mistakes may be present. Appropriate healthcare PPE was used in evaluating this patient. The patient was placed in a mask. The healthcare provider was wearing mask, gloves, and utilizing proper hand hygiene. All equipment was properly cleansed. I performed a substantive part of the MDM during the patient??? (more content not included)... Normal [facility] Comment on above: Result Comment: Elec tronically Signed By: Chris Cuevas PA-C\.br\Date and Time Signed: 02/02/25 19:51 EDT\.br\Electronically Co-Signed By: Nash Neal DO.br\Date and Time Co-Signed: 02/03/25 01:45 EDT XR Ribs Unilat 3 Views Left w/ PA Cheston 02-03-2025 XR Ribs Unilat 3 Views Left w/ PA Chest Exam Date/Time: 02/02/2025 19:09 EDT Reason for Exam: Pain, Traumatic Report IMPRESSION: NO RADIOGRAPHIC EVIDENCE OF ACUTE INTRATHORACIC PROCESS. EXAMINATION: XR Ribs Unilat 3 Views Left w/ PA Chest HISTORY: Right rib pain TECHNIQUE: Frontal view of the chest and frontal and oblique views of the right ribs obtained COMPARISON: Radiographs of the chest 09/27/2021 FINDINGS: The cardiomediastinal silhouette is within normal limits. No pneumothorax, pleural effusion, or focal consolidation. Chronic coarsening of the pulmonary interstitium. Osseous structures of the thorax are intact; no displaced rib fractures identified. Postsurgical changes of thoracic spine fusion. Dextroscoliosis of the thoracic spine. Ordering Provider: Chris Cuevas FINAL REPORT Dictated: 02/03/2025 9:36 am Benjamin Miramontes DO Signed (Electronic Signature): 02/03/2025 9:36 am Signed by: Benjamin Miramontes DO Transcribed by: CARISA Technologist: POPEYE Colvin [facility] ED Clinical Summaryon 2024 ED Clinical Summary ED Clinical Summary [address] [address] ED Clinical Summary Person Information Name: NATHANIEL MARCIAL [place] Age: 49 Years : 1975 Sex: Female Language: Indonesian PCP: NONE, XXXX Marital Status: Phone: [phone] Visit Id: Visit Reason: Rib/trunk pain-swelling; RIB/TRUNK PAIN Speciality: Acuity: 4 Enc Type: Emergency Med Service: Emergency Arrival: 02/02/2025 18:29:21 Discharge: 02/02/2025 19:49:15 LOS: 000 01:20 Checkin: 02/02/2025 18:29:21 Checkout: 02/02/2025 19:49:15 Dispo Type: Home (Routine DC) EVENTS: Event Name Event Status Request Date/Time Start Date/Time Complete Date/Time Arrive Complete 02/02/2025 18:29:21 02/02/2025 18:29:21 02/02/2025 18:29:21 Document Home Meds Request 02/02/2025 18:29:21 Triage Complete 02/02/2025 18:29:21 02/02/2025 18:37:52 02/02/2025 18:37:52 Bed Assign Complete 02/02/2025 18:33:53 02/02/2025 18:33:53 02/02/2025 18:33:53 Dr Exam Complete 02/02/2025 18:33:53 02/02/2025 18:39:53 02/02/2025 18:39:53 RN Exam Complete 02/02/2025 18:33:53 02/02/2025 19:02:44 02/02/2025 19:02:44 Registration Complete 02/02/2025 18:36:18 02/02/2025 18:36:18 02/02/2025 18:36:18 Reg Complete Request 02/02/2025 18:36:18 Reg Bed Request Complete 02/02/2025 18:36:18 02/02/2025 18:36:18 02/02/2025 18:36:18 Isolation Screening Request 02/02/2025 18:37:53 Registration Complete 02/02/2025 18:39:53 02/02/2025 19:11:50 02/02/2025 19:11:50 X-Ray Complete 02/02/2025 18:53:33 02/02/2025 18:54:38 02/02/2025 19:09:44 Dr Exam Complete 02/02/2025 18:53:54 02/02/2025 18:53:54 02/02/2025 18:53:54 Wet Read Request 02/02/2025 19:09:44 Meds Admin Complete 02/02/2025 19:38:43 02/02/2025 19:45:56 Discharge Complete 02/02/2025 19:39:42 02/02/2025 19:49:23 02/02/2025 19:49:23 Transfer Complete 02/02/2025 19:49:23 02/02/2025 19:49:23 02/02/2025 19:49:23 ADDRESS: [address] [place] [address] [facility] [phone] PHYS DOC NOTES: MEDICAL INFORMATION: Prescriptions Given: New Medications [id number], [address] [place], [place] [id number], [phone] naproxen (naproxen 500 mg Tab) 1 Tablets By Mouth 2 times a day for 10 Days. Refills: 0. Medications to Continue with No [...] Mouth at bedtime. PATIENT EDUCATION INFORMATION: Instructions: Rib Contusion Follow up: With: Address: When: German Link [address] [place], [place] [id number] Business (1) In 3 days 02/05/2025 DIAGNOSIS: Contusion of rib on left side Normal [facility] ED Patient Summaryon 025 ED Patient Summary ED Patient Summary [address] [address] Patient Discharge Instructions Person Information Name: NATHANIEL MARCIAL Age: 49 Years Arrival Date: 02/02/2025 18:29:21 Discharge Diagnosis: Contusion of rib on left side Primary Care Physician: NONE, XXXX Provider Information Primary Provider: Nash Neal DO Advanced [employer] Operator:Chris Cuevas PA-C The exam and treatment you received in the Emergency Department were for an urgent problem and are not intended as complete care. It is important that you follow up with a doctor, nurse practitioner, or physician???s tv production assistant for ongoing care. If your symptoms become worse or you do not improve as expected and you are unable to reach your usual health care provider, you should return to the Emergency Department. We are available 24 hours a day. NATHANIEL MARCIAL has been given the following list of patient education materials, prescriptions and follow-up instructions: Follow-up Instructions: With: Address: When: [facility] [address] [place] [id number] [facility] (1) In 3 days 02/05/2025 In the event that this physician does not participate in your insurance network, please consult with your insurance company to find a nearby participating provider. Patient Education Materials: Rib Contusion A MESSAGE TO ALL PATIENTS REGARDING OPIOIDS PRESCRIPTION OPIOIDS: WHAT YOU NEED TO KNOW Prescription opioids can be used to help relieve uofdikzc-jg-vdzfnr pain and are often prescribed following a [...] as well, even when taken as directed: ??? Tolerance???meaning you might need to take more of the medication for the same pain relief ??? Physical dependence???meaning you have symptoms of withdrawal when a medication is stopped ??? Increased sensitivity to pain ??? Constipation ??? Nausea, vomiting, and dry mouth ??? Sleepiness and dizziness ??? Confusion ??? Depression ??? Low levels of testosterone that can result in lower sex drive, energy, and strength ??? Itching and sweating RISKS ARE GREATER WITH: ??? History of drug misuse, substance use disorder, or overdose ??? Mental health conditions (such as depression or anxiety) ??? Sleep apnea ??? Older age (65 years and older) ??? Avoid alcohol while taking prescription opioids. Also, unless specifically advised by your health care provider, medications to avoid include: ??? Benzodiazepines (such as Xanax or Valium) ??? Muscle relaxants (such as Soma or Flexeril) ??? Hypnotics (such as Ambien or Lunesta) ??? Other prescription opioids KNOW YOUR OPTIONS Talk to your health care provider about ways to manage your pain that don???t involve prescription opioids. Some of these options may actually work better and have fewer risks and side effects. Options may include: ??? Pain relievers such as acetaminophen, ibuprofen, and naproxen ??? Some medication that are also used for depression or seizures ??? Physical therapy and exercise ??? Cognitive behavioral therapy, a psychological, goal-directed approach, in which patients learn how to modify physical, behavioral, and emotional triggers of pain and stress. IF YOU ARE PRESCRIBED OPIOIDS FOR PAIN: ??? Never take opioids in greater amounts or more often than prescribed. ??? Follow up with your primary health care provider. o Work together to create a plan on how to manage your pain. o Talk about ways to help manage your pain that don???t involve prescription opioids. o Talk about any and all concerns and side effects. ??? Help prevent misuse and abuse o Never sell or share prescription opioids. o Never use another person???s prescription opioids. ??? Store prescription opioids in a secure place and out of reach of others (this may include visitors, children, friends, and family). ??? Safely dispose of unused prescription opioids: Find your community drug take-back program or your pharmacy mail-back program, or flush them down the toilet, following guidance from the Food and Drug Administration (www.fda.gov/Drugs/R esourcesForYou). ??? Visit www.cdc.gov/drugover dose to learn about the risks of opioids abuse and overdose. ??? If you believe you may be struggling with addiction, tell your health critical care cns and ask for orlinanc (more content not included)... Normal [facility] 36on 07-25-2024 36 Pt was in because of high pulse. BP 137/90 and pulse was 122. EKG was done. Normal [facility] Office Visiton 07-19-2024 Follow-up visit [id number] Nathaniel Marcial 1975 F Date Provider Department Center 07/19/2024 [id number]-ALGHOTHANIBETH Family History Problem Relation Age of Onset Heart failure Mother Heart failure Father Transient ischemic attack Father Family Status - Relation Status Age at Mother Father Level of Service:16050 MT OFFICE/OUTPATIENT ESTABLISHED MOD MDM 30 MIN Normal [facility] 36on 07-01-2024 36 Concerning low b/p Pt claims that her B/P has bee low since she has taken lisinopril 5mg. I advised her to cut it in half and to monitor her b/p one hour after she takes her medication. Upon taking to patient to let her know about cutting her lisinopril in half, she said she is occationally having fluttering in her chest and she feels lightheaded, I let her know if it gets any worse to go to the ER. She said she was not sure about going because she did not want the doctor to think she was coming in for something minor. Normal [facility] CHEMISTRYOrdered By: SYSTEM SYSTEM on 10-13-2023 Albumin [...] mg/mg Normal 10 - 20 Remisol Chem HEMATOLOGYOrdered By: SYSTEM SYSTEM on 10-13-2023 Basophil [...] High 80.0 - 100.0 fL Remisol Heme Turner Absolute 0.6 E9/L Normal 0.2 - 1.0 [...] Normal 4.0 - 11.0 E9/L Remisol Heme URINALYSISOrdered By: Annette Porter on 10-13-2023 Bacteria [...] PM) Normal Negative [facility] UA Auto SS Axis.plasma/Axis .RBC (Bld) [Mass ratio] 0-3 /HPF Normal [...] [facility] UA Auto SS Urobilinogen Qn (U) [id number] {Arturo'U}/dL Normal 0.0 - 1.0 EU/dL [facility] UA Auto SS WBC Auto Ql (U) Negative (10/13/23 4:23 PM) Normal Negative [facility] UA Auto SS WBC LM.HPF (Urine sed) [#/Area] 0-5 /HPF Normal 0-5/HPF [facility] UA Auto SS CNPBreanne 05-11-2023 CNPN Telephone ([facility]) NATHANIEL MARCIAL ([id number]) 1975 F Date Time Provider Department 05/11/23 SHARITA MYERS [facility] During your visit today, we recorded [...] Fully Assessed Reason for Visit: Patient Question [1982] Cmt: Offering patient surgical date. Prescriptions as [...] Encounter Status:Closed by MARCIE CHOU on 05/11/23 [facility] Telephone (ORQ) NATHANIEL MARCIAL ([id number]) 1975 F Date Time Provider Department 05/11/23 SHARITA MYERS ORQ During your visit today, we recorded the following information about you: Vinita Crabtree 05/11/2023 10:35 AM Signed Left VM and sent [employer] message to patient to see if she [...] Encounter Status:Closed by VINITA [facility]ABTREE [facility] NATHANIEL MARCIAL ([id number]) 1975 F Date Time Provider Department 04/11/23 AURELIANO VANN PODITW During your visit today, we recorded the following information about you: Colin VillalobosAbi 04/11/2023 12:06 PM Signed Patient states that [employer] is unable to send out bone stimulator due to incorrect verbiage in order. Please all Leigh Ann at [phone] to clarify Selina Villa 04/11/2023 1:21 PM [...] MA 04/12/2023 11:00 AM Signed Faxed to [phone] per below note. Thank you, MARTIN Angel Abi 04/12/2023 1:29 PM Signed Leigh Ann calling back---everything was sent for the wrong ankle. Please call Leigh Ann at [phone] Aureliano Vann DPM 04/12/2023 2:51 PM Signed [...] office said we can contact her at [phone] with any questions. Please contact patient or [...] Patient scheduled for Podiatry on 05/30 at [facility] Allergies As of Date: 04/11/2023 Noted Allergy [...] 30 M (more content not included)... Normal [facility] CNOVon 04-10-2023 CNOV Office Visit (MORH) NATHANIEL MARCIAL ([id number]) 1975 F Date Time Provider Department 04/10/23 [...] As you know she is a 47-year-old hjcb-mkgk-sgoaxicc female with complaints in her shoulder that [...] rotation i (more content not included)... Normal [facility] XR SHLDR >/=3V AP/PIEDAD AP/OTH R RTon [...] Collapse of the humeral head as described. [employer] Designer: MAX Transcribe Date/Time: Apr 13 2023 4:03P Dictated by : PAUL REED MD This examination was interpreted and the report reviewed and electronically signed by: PAUL REED MD on Apr 13 2023 4:04PM EST [id number] [facility] 03-30-2023 [facility] Office Visit (ORTHMN) NATHANIEL MARCIAL ([id number]) 1975 F Date Time Provider Department 03/30/23 [...] seen Dr. Nate Gavin with [facility] in [place] and ordered a MRI of her shoulder [...] belly press test. Positive speeds test. Positive Petersburg's test. Positive impingement signs (more content not included)... Normal [facility] CNOVon 03-27-2023 CNOV Office Visit (PODIMN) NATHANIEL MARCIAL ([id number]) 1975 F Date Time Provider Department 03/27/23 [...] Plan: - (more content not included)... Normal [facility] XR ANKLE 3V AP/LAT/OBL LTon 03-27-2023 [...] WHICH MAY RELATED TO DISUSE AND/OR HYPEREMIA. Analog [employer] Designer: MAX Transcribe Date/Time: Mar 27 2023 12:44P Dictated by : KENDALL GUTIERREZ MD This examination was interpreted and the report reviewed and electronically signed by: KENDALL GUTIERREZ MD on Mar 27 2023 12:45PM EST [id number] CN Normal [facility] XR ANKLE GENERAL 3V AP/LAT/O BL LEFTon 03-27-2023 [facility] Progress Noteson 01-11-2023 S[employer] Gauger Authentication Interface Message Text EMERGENCY TRIAGE, TREAT AND TRANSPORT (ET3) DOCUMENTATION OF TELEHEALTH VISIT Date / Time: 01/11/2023514 Name: Nathaniel Marcial : 1975 SSN: [id number] EMS Agency: [facility] [x] Verbal consent obtained [] [...] Completed by: Jarred Rosado MD Normal [facility] CHEMISTRYOrdered By: SYSTEM SYSTEM on 11-12-2022 Anion gap [Moles/Vol] 14 mmol/L Normal 6 - 16 mEq/L F [facility] Remisol Calcium [Mass/Vol] 8.7 mg/dL Low 8.9 - 11. 1 mg/dL FT Remisol Chloride [Moles/Vol] 100 mmol/L Low 101 [...] 59 mL/min/1.73 m2 Normal >=59mL/min/1 .73 m2 [facility] Chem S Glucose [Mass/Vol] 97 mg/dL Normal 55 - 199 mg/dL FT Remisol Potassium [Moles/Vol] 4.0 mmol/L Normal 3.5 [...] 0.5 % Normal 0.0 - 2.0 % FT HemeAutoSS Basophils/Leukocytes Auto (Bld) [Pure # fraction] [...] [facility] HemeAutoSS CNOVon 07-28-2022 CNOV Office Visit (GENN) NATHANIEL MARCIAL ([id number]) 1975 F Date Time Provider Department 07/28/22 10:30 AM ORNAN CABELLOChelo During your visit today, we recorded the following information about you: Temperature Pulse Respiration Blood pressure 97.8 degrees 90/minute 12/minute 125/89 Weight Height 57.2 kg 1.499 m Daltontoshia Lee 07/28/2022 10:59 AM Addendum What is the reason for your visit today? Follow up Who is your referring physician? Dr. Cabello Are you having poor oral intake? NO Have you had unintentional weight loss of 15 lbs/7 Kg in the last 3-6 months? NO Bowels: regular or diarhea Wound: clean AND dry Temperature: No Drains: No Donna Donis Ok 07/28/2022 1:17 PM Signed GENERAL SURGERY CLINIC NOTE Nathaniel Marcial [id number] HPI: Nathaniel Marcial is a 46 year [...] not recall but is following with a barrel header in 1 week. O: BP 125/89 Pulse [...] Cellulitis [L03. (more content not included)... Normal [facility] OVA AND PARASITE EXAMINATION on 05-18-2022 Ova + Parasite Exam Final report Normal [facility] Comment on above: Result Comment: Thes e results were obtained using wet preparation(s) and trichrome stained smear. This test does not include testing for Cryptosporidium parvum, Cyclospora, or Microsporidia. Performed By: #### O BERTRAND #### [facility] [address] [place] [address] Dr. Jemima Paul Result 1 Comment Normal [facility] Comment on above: Result Comment: No o va, cysts, or parasites seen. . One negative specimen does not rule out the possibility of a parasitic infection. Performed By: #### O VAPE #### [facility] [address] [place] [address] Dr. Jemima Paul LACTOFERRIN FECAL QUANTon Lactoferrin, Fecal, Quant. <1.00 Normal 0.00-7.24 [facility] Comment on above: Result Comment: Re [...] (IBS). Performed By: #### L ACTFQ #### [facility] [address] [place] [address] Dr. Jemima Paul STOOL CULTUREon 05-16-2022 Campylobacter Culture Final report Normal [facility] Comment on above: Performed By: #### C XSTOOL #### [facility] [address] [place] [address] Dr. Jemima Paul E coli Shiga Toxin EIA Negative Normal Negative [facility] Comment on above: Performed By: #### C XSTOOL #### [facility] [address] [place] [address] Dr. Jemima Paul Result 1 Comment Normal [facility] Comment on above: Result Comment: No S almonella or Shigella recovered. Performed By: #### C XSTOOL #### [facility] [address] [place] [address] Dr. Jemima Paul Result Comment: No C ampylobacter species isolated. Salmonella/Shigella Screen Final report Normal [facility] Comment on above: Performed By: #### C XSTOOL #### [facility] [address] [place] [address] Dr. Jemima Paul C. DIFF PCRon 05-11-2022 C. DIFFICILE PCR Negative Normal NEGATIVE [facility] Comment on above: Performed By: #### C DIFPOC #### [facility] [address] [address] [address] Jemima Paul CBC AUTO DIFFon 03-17-2022 BASO # 0.1 103/ul Normal 0.0-0.1 [facility] Comment on above: Performed By: #### C BC #### [facility] [address] [address] [address] Jemima Paul Basophils/100 WBC (Bld) 1.0 % Normal 0.2-2.0 [facility] Comment on above: Performed By: #### C BC #### [facility] [address] [address] [address] Jemima Paul EO # 0.2 103/ul Normal 0.0-0.7 [facility] Comment on above: Performed By: #### C BC #### [facility] [address] [place] [address] Dr. Jemima Paul Eosinophils/100 WBC (Bld) 3.0 % Normal 0.9-7.0 [facility] Comment on above: Performed By: #### C BC #### [facility] [address] [place] [address] Dr. Jemima Paul Erythrocyte distribution width (RBC) [Ratio] 12.4 % Normal 11.0-15.0 [facility] Comment on above: Performed By: #### C BC #### [facility] [address] [place] [address] Dr. Jemima Paul Hematocrit (Bld) [Volume fraction] 43.4 % Normal 36.0-48.0 [facility] Comment on above: Performed By: #### C BC #### [facility] [address] [place] [address] Dr. Jemima Paul Hemoglobin (Bld) [Mass/Vol] 14.8 g/dL Normal 12.0-16.0 [facility] Comment on above: Performed By: #### C BC #### [facility] [address] [place] [address] Dr. Jemima Paul IG # 0.04 10e3/ul Critically high 0.00-0.03 [facility] Comment on above: Performed By: #### C BC #### [facility] [address] [place] [address] Dr. Jemima Paul IG % 0.6 % Critically high 0.0-0.5 [facility] Comment on above: Performed By: #### C BC #### [facility] [address] [place] [address] Dr. Jemima Paul LYMPH # 3.1 103/ul Normal 1.2-3.8 [facility] Comment on above: Performed By: #### C BC #### [facility] [address] [place] [address] Dr. Jemima Paul Lymphocytes/100 WBC (Bld) 44.9 % Normal 20.5-60.0 [facility] Comment on above: Performed By: #### C BC #### [facility] [address] [place] [address] Dr. Jemima Paul MANUAL DIFF REQ NO Normal [facility] Comment on above: Performed By: #### C BC #### [facility] [address] [place] [address] Dr. Jemima Paul MCH (RBC) [Entitic mass] 36.2 pg Critically high 26.7-34.0 [facility] Comment on above: Performed By: #### C BC #### [facility] [address] [place] [address] Dr. Jemima Paul MCHC (RBC) [Mass/Vol] 34.1 g/dL Normal 29.9-35.2 [facility] Comment on above: Performed By: #### C BC #### [facility] [address] [place] [address] Dr. Jemima Paul MCV (RBC) [Entitic vol] 106.1 fL Critically high 81.0-99.0 [facility] Comment on above: Performed By: #### C BC #### [facility] [address] [place] [address] Dr. Jemima Paul MONO # 0.4 103/ul Normal 0.3-0.8 [facility] Comment on above: Performed By: #### C BC #### [facility] [address] [address] [address] Jemima Paul Monocytes/100 WBC (Bld) 6.2 % Normal 1.7-12.0 [facility] Comment on above: Performed By: #### C BC #### [facility] [address] [place] [address] Dr. Jemima Paul NEUT # 3.1 103/ul Normal 1.4-6.5 [facility] Comment on above: Performed By: #### C BC #### [facility] [address] [place] [address] Dr. Jemima Paul Neutrophils/100 WBC (Bld) 44.3 % Normal 43.0-75.0 [facility] Comment on above: Performed By: #### C BC #### [facility] [address] [place] [address] Dr. Jemima Paul Platelet mean volume (Bld) [Entitic vol] 8.3 fL Critically low 9.5-13.5 [facility] Comment on above: Performed By: #### C BC #### [facility] [address] [place] [address] Dr. Jemima Paul PLT 288 103/ul Normal 150-450 [facility] Comment on above: Performed By: #### C BC #### [facility] [address] [place] [address] Dr. Jemima Paul RBC 4.09 106/ul Critically low 4.20-5.40 [facility] Comment on above: Result Comment: TEAR DROP CELLS 3+, MACROCYTOSIS 3+ Performed By: #### C BC #### [facility] [address] [place] [address] Dr. Jemima Paul WBC 7.0 103/ul Normal 4.0-11.0 [facility] Comment on above: Performed By: #### C BC #### [facility] [address] [place] [address] ABD/PELV W CONon [...] HELENA ANDERSEN Date: 2022-03-17 00:46 Normal [facility] PROF CHEM 8 (BAS METB)on Anion gap [Moles/Vol] 14.6 mmol/L Normal [facility] Comment on above: Performed By: #### B MP #### [facility] [address] [address] [address] Jemima Paul Calcium [Mass/Vol] 8.6 mg/dL Normal 8.5-10.1 [facility] Comment on above: Performed By: #### B MP #### [facility] [address] [address] [address] Jemima Paul Chloride [Moles/Vol] 100 mmol/L Normal 98-107 [facility] Comment on above: Performed By: #### B MP #### [facility] [address] [address] [address] Jemima Paul CO2 [Moles/Vol] 24.3 mmol/L Normal 21.0-32.0 [facility] Comment on above: Performed By: #### B MP #### [facility] [address] [address] [address] Jemima Paul Creatinine [Mass/Vol] 0.99 mg/dL Normal 0.55-1.02 [facility] Comment on above: Performed By: #### B MP #### [facility] [address] [address] [address] Jemima Paul EGFR-AF AUSTRIAN >60 Normal >=60 [facility] Comment on above: Performed By: #### B MP #### [facility] [address] [address] [address] Jemima Paul EGFR-NON AF AUSTRIAN 60 mL/min/1.73m2 Normal >=60 [facility] Comment on above: Performed By: #### B MP #### [facility] [address] [address] [address] Jemima Paul Glucose [Mass/Vol] 108 mg/dL Critically high 74-106 [facility] Comment on above: Performed By: #### B MP #### [facility] [address] [address] [address] Jemima Paul Potassium [Moles/Vol] 3.9 mmol/L Normal 3.5-5.1 [facility] Comment on above: Performed By: #### B MP #### [facility] [address] [address] [address] Jemima Paul Sodium [Moles/Vol] 135 mmol/L Critically low 136-145 [facility] Comment on above: Performed By: #### B MP #### [facility] [address] [address] [address] Jemima Paul Urea nitrogen [Mass/Vol] 11.0 mg/dL Normal 7.0-18.0 [facility] Comment on above: Performed By: #### B MP #### [facility] [address] [address] [address] Jemima Paul Urea nitrogen/Creatinine [Mass ratio] 11.1 mg/mg Normal [facility] Comment on above: Performed By: #### B MP #### [facility] [address] [address] [address] Jemima Paul Large Joint Arthro/Inj: R gl enohumeral [facility] Vital Signs Date Time Vital Sign Value Performing Clinician Facility 02-02-2025 18:35-0400 Body temperature 97.88 [degF] Rebeccainn [facility] 02-02-2025 18:35-0400 Diastolic blood pressure 98 mm[Hg] Kaylinn [facility] 02-02-2025 18:35-0400 Heart rate 97 /min Makenzieylinn [facility] 02-02-2025 18:35-0400 Respiratory rate 18 /min Rebeccainn [facility] 02-02-2025 18:35-0400 SaO2% (BldA) [Mass fraction] 97 % Ellynn [facility] 02-02-2025 18:35-0400 Systolic blood pressure 160 mm[Hg] Makenzieylinn [facility] 11-26-2023 19:43-0500 Body temperature 98.42 [degF] Antonio [facility] 11-26-2023 19:43-0500 Diastolic blood pressure 75 mm[Hg] Antonio [facility] 11-26-2023 19:43-0500 Heart rate 111 /min Antonio Lenard [facility] 11-26-2023 19:43-0500 Respiratory rate 16 /min Antonio Len[facility] 11-26-2023 19:43-0500 SaO2% (BldA) [Mass fraction] 95 % Antonio Len[facility] 11-26-2023 19:43-0500 Systolic blood pressure 125 mm[Hg] Antonio Len[facility] 10-13-2023 18:29-0500 Diastolic blood pressure 89 mm[Hg] Bashir Loera [facility] 10-13-2023 18:29-0500 Heart rate 71 /min Bashir Evaristo [facility] 10-13-2023 18:29-0500 Mean blood pressure 107 mm[Hg] Bashir Evaristo [facility] 10-13-2023 18:29-0500 Respiratory rate 18 /min Bashir Evaristo [facility] 10-13-2023 18:29-0500 SaO2% (BldA) [Mass fraction] 97 % Bashir Evar[facility] 10-13-2023 18:29-0500 Systolic blood pressure 143 mm[Hg] Bashir Evaristo [facility] 10-13-2023 15:52-0500 Body temperature 98.24 [degF] Bashir Evar[facility] 10-13-2023 15:52-0500 Diastolic blood pressure 91 mm[Hg] Bashir Evar[facility] 10-13-2023 15:52-0500 Heart rate 88 /min Bashir Evar[facility] 10-13-2023 15:52-0500 Respiratory rate 18 /min Bahsir Evar[facility] 10-13-2023 15:52-0500 SaO2% (BldA) [Mass fraction] 96 % Bashir Evar[facility] 10-13-2023 15:52-0500 Systolic blood pressure 158 mm[Hg] Bashir Evaristo [facility] 03-30-2023 10:59-0400 Body height 149.9 cm [employer] PA-C Work Phone: [facility] 03-30-2023 10:59-0400 Body weight 58.97 kg Verónica Duarte PA-C Work Phone: [facility] 01-31-2023 11:00-0400 Heart rate 89 /min Eren Ramires [facility] 01-31-2023 11:00-0400 Respiratory rate 16 /min Eren [facility] 01-31-2023 10:04-0400 Hourly Rounding Eren Ramires [facility] 01-31-2023 10:04-0400 Promise to Return Eren Ramires [facility] 01-31-2023 10:03-0400 Diastolic blood pressure 83 mm[Hg] Eren [facility] 01-31-2023 10:03-0400 Heart rate 91 /min Eren [facility] 01-31-2023 10:03-0400 Mean blood pressure 98 mm[Hg] Eren [facility] 01-31-2023 10:03-0400 Respiratory rate 20 /min Eren [facility] 01-31-2023 10:03-0400 SaO2% (BldA) [Mass fraction] 99 % Eren [facility] 01-31-2023 10:03-0400 Systolic blood pressure 127 mm[Hg] Eren [facility] 01-31-2023 09:40-0400 Body temperature 98.24 [degF] Eren [facility] 01-31-2023 09:40-0400 Diastolic blood pressure 86 mm[Hg] Eren Ke[facility] 01-31-2023 09:40-0400 Heart rate 94 /min Eren [facility] 01-31-2023 09:40-0400 Hourly Rounding Eren Ramires [facility] 01-31-2023 09:40-0400 Promise to Return Eren Ramires [facility] 01-31-2023 09:40-0400 Respiratory rate 18 /min Eren Ramires [facility] 01-31-2023 09:40-0400 SaO2% (BldA) [Mass fraction] 98 % Eren Ramires [facility] 01-31-2023 09:40-0400 Systolic blood pressure 133 mm[Hg] Eren Ramires [facility] 11-12-2022 17:25-0500 Hourly Rounding Nate Gavin [facility] 11-12-2022 17:25-0500 Promise to Return Nate Gavin [facility] 11-12-2022 16:58-0500 Heart rate 70 /min Nate Brown [facility] 11-12-2022 16:58-0500 SaO2% (BldA) [Mass fraction] 97 % Nate Brown [facility] 11-12-2022 16:57-0500 Body temperature 97.52 [degF] Nate Brown [facility] 11-12-2022 16:57-0500 Diastolic blood pressure 85 mm[Hg] Nate Brown [facility] 11-12-2022 16:57-0500 Mean blood pressure 98 mm[Hg] Nate Brown [facility] 11-12-2022 16:57-0500 Systolic blood pressure 122 mm[Hg] Nate Gavin [facility] 11-12-2022 16:25-0500 Hourly Rounding Nate Gavin [facility] 11-12-2022 16:25-0500 Promise to Return Nate Gavin [facility] 11-12-2022 16:00-0500 Respiratory rate 15 /min Nate Gavin [facility] 11-12-2022 15:16-0500 Hourly Rounding Nate Gavin [facility] 11-12-2022 15:16-0500 Promise to Return Nate Gavin [facility] 11-12-2022 11:45-0500 Body temperature 97.34 [degF] Nate Gavin [facility] 11-12-2022 11:45-0500 Diastolic blood pressure 85 mm[Hg] Nate Gavin [facility] 11-12-2022 11:45-0500 Heart rate 79 /min Nate Gavin [facility] 11-12-2022 11:45-0500 Mean blood pressure 93 mm[Hg] Nate Gavin [facility] 11-12-2022 11:45-0500 Respiratory rate 14 /min Nate Gavin [facility] 11-12-2022 11:45-0500 SaO2% (BldA) [Mass fraction] 96 % Nate Gavin [facility] 11-12-2022 11:45-0500 Systolic blood pressure 110 mm[Hg] Nate Gavin [facility] 11-12-2022 11:35-0500 Diastolic blood pressure 60 mm[Hg] Nate Brown [facility] 11-12-2022 11:35-0500 Heart rate 61 /min Nate Brown [facility] 11-12-2022 11:35-0500 Mean blood pressure 71 mm[Hg] Nate Brown [facility] 11-12-2022 11:35-0500 Respiratory rate 16 /min Nate Brown [facility] 11-12-2022 11:35-0500 Systolic blood pressure 92 mm[Hg] Nate Brown [facility] 11-12-2022 11:30-0500 Mean blood pressure 69 mm[Hg] Nate Brown [facility] 11-12-2022 11:30-0500 Respiratory rate 18 /min Nate Brown [facility] 11-12-2022 11:20-0500 Body temperature 97.34 [degF] Nate Brown [facility] 11-12-2022 11:15-0500 Respiratory rate 11 /min Nate Brown [facility] 11-12-2022 11:10-0500 Respiratory rate 13 /min Nate Brown [facility] 11-12-2022 07:01-0500 Body temperature 96.8 [degF] Nate Brown [facility] 11-12-2022 07:01-0500 Heart rate 73 /min Nate Brown [facility] 11-12-2022 06:46-0500 Body temperature 96.8 [degF] Nate Brown [facility] 11-12-2022 06:46-0500 Heart rate 69 /min Nate Gavin [facility] 07-28-2022 10:58-0400 Body height 149.9 cm Ronan Cabello MD Work Phone: [facility] 07-28-2022 10:58-0400 Body temperature 97.81 [degF] Ronan Cabello MD Work Phone: [facility] 07-28-2022 10:58-0400 Body weight 57.15 kg Ronan Cabello MD Work Phone: [facility] 07-28-2022 10:58-0400 Diastolic blood pressure 89 mm[Hg] Ronan Cabello MD Work Phone: [facility] 07-28-2022 10:58-0400 Heart rate 90 /min Ronan Cabello MD Work Phone: [facility] 07-28-2022 10:58-0400 Respiratory rate 12 /min Ronan Cabello MD Work Phone: [facility] 07-28-2022 10:58-0400 Systolic blood pressure 125 mm[Hg] Ronan Cabello MD Work Phone: [facility] 05-04-2022 14:00-0400 Body height 152.4 cm Gale Vasquez Other [employer] Other 05-04-2022 14:00-0400 Body mass index (BMI) [Ratio] 25.97 kg/m2 Gale Vasquez Other [employer] Other 05-04-2022 14:00-0400 Body weight 60.33 kg Gale Vasquez Other [employer] Other 05-04-2022 14:00-0400 Diastolic blood pressure 86 mm[Hg] Gale Vasquez Other [employer] Other 05-04-2022 14:00-0400 Respiratory rate 20 /min Gale Vasquez Other [facility] Other 05-04-2022 14:00-0400 Systolic blood pressure 130 mm[Hg] Gale Vasquez Other [facility] Other 03-31-2022 12:03-0400 Body temperature 98.06 [degF] [facility] 03-31-2022 12:03-0400 Diastolic blood pressure 89 mm[Hg] [facility] 03-31-2022 12:03-0400 Heart rate 109 /min [facility] 03-31-2022 12:03-0400 Respiratory rate 18 /min [facility] 03-31-2022 12:03-0400 SaO2% (BldA) [Mass fraction] 100 % [facility] 03-31-2022 12:03-0400 Systolic blood pressure 155 mm[Hg] [facility] 01-01-2022 19:52-0400 Diastolic blood pressure 77 mm[Hg] [facility] 01-01-2022 19:52-0400 Heart rate 97 /min [facility] 01-01-2022 19:52-0400 Respiratory rate 18 /min [facility] 01-01-2022 19:52-0400 SaO2% (BldA) [Mass fraction] 97 % [facility] 01-01-2022 19:52-0400 Systolic blood pressure 113 mm[Hg] [facility] 01-01-2022 16:50-0400 Body temperature 98.42 [degF] [facility] 01-01-2022 16:50-0400 Diastolic blood pressure 88 mm[Hg] [facility] Castellano [facility] 01-01-2022 16:50-0400 Heart rate 126 /min [facility] 01-01-2022 16:50-0400 Respiratory rate 18 /min [facility] 01-01-2022 16:50-0400 SaO2% (BldA) [Mass fraction] 97 % [facility] 01-01-2022 16:50-0400 Systolic blood pressure 153 mm[Hg] [facility] Encounters Encounter Date Encounter Type Care Provider Facility Start: 02-27-2025 ambulatory German Sheehan Facility:[facility] Start: 02-20-2025 End: 02-20-2025 ambulatory [facility] Start: 02-05-2025 End: 02-05-2025 ambulatory [facility] Start: 02-04-2025 End: 02-04-2025 ambulatory [employer]OTHER[employer]CH[employer] MARRY OWUSU Facility: [facility] Start: 02-02-2025 End: 02-02-2025 Emergency department patient visit Nash Neal [facility] Start: 01-13-2025 ambulatory Jaspreet Cortez Facility:[facility] Start: 12-21-2024 End: 12-22-2024 Kimberlee Medina MD Work Phone: [facility] Comment on above: Other constipation; Generalized abdominal pain Start: 11-16-2024 End: 11-17-2024 Kimberlee Medina MD Work Phone: [facility] Comment on above: Other osteoporosis w ithout current pathological fracture (CMS/HCC) Start: 07-19-2024 End: 07-19-2024 ambulatory [facility] Start: 11-26-2023 End: 11-26-2023 Emergency department patient visit Antonio KatzHarsh Weinberg [facility] Start: 10-17-2023 End: 10-17-2023 ambulatory GRACY MEDINA Not Available Start: 10-13-2023 End: 10-13-2023 Emergency department patient visit Bashirolinda Loera [facility] Start: 10-13-2023 End: 10-13-2023 ambulatory DAVID LEON Not Available Start: 08-30-2023 End: 08-30-2023 Patient encounter procedure DAVID LEON [facility] Start: 08-29-2023 End: 08-29-2023 ambulatory DAVID LEON Not Available Start: 05-31-2023 End: 05-31-2023 Patient encounter procedure Gracy Prerna Carol [facility] Start: 05-11-2023 Telephone encounter Sharita greenberg MD Work Phone: [facility] Comment on above: Schedule Surgery Patient Question (Of fering patient surgical date.) Start: 04-10-2023 End: 04-10-2023 ambulatory GRACY MEDINA Facility:[facility] Start: 04-10-2023 End: 04-10-2023 Patient encounter procedure Sharita Myers MD Work Phone: [facility] Comment on above: 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) (Primary Dx) Start: 03-30-2023 End: 03-30-2023 ambulatory No [facility] Start: 03-30-2023 End: 03-30-2023 Patient encounter procedure Verónica Duarte PA-C Work Phone: Orthopaedics Comment on above: 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) (Primary Dx); Incomplete tear of right rotator cuff, unspecified whether traumatic; Biceps tendonitis on right Start: 03-27-2023 End: 03-27-2023 ambulatory SELF Facility:[facility] Start: 03-27-2023 End: 03-27-2023 Patient encounter procedure Aureliano Estephania DPM Work Phone: Podiatry Comment on above: [...] (Primary Dx) Start: 02-22-2023 ambulatory BERNARDA CORTES Facility:[facility] Start: 02-06-2023 End: 02-06-2023 Patient encounter procedure Nate Gavin [facility] Start: 01-31-2023 End: 01-31-2023 Emergency department patient visit Eren Ramires [facility] Start: 01-11-2023 End: 01-18-2023 ambulatory UNKNOWN PROVIDER Facility:[facility] Start: 12-13-2022 End: 12-13-2022 ambulatory Sadiq Wilson Other [employer] Other Start: 12-13-2022 Telephone encounter [facility] Start: 11-15-2022 End: 11-16-[address] TK LEVI . Facility: Start: 11-12-2022 End: 11-12-2022 Observation Nate Gavin [facility] Start: 08-02-2022 End: 08-02-[address] MISTY BENITEZ . Facility:[facility] Start: 07-28-2022 End: 07-29-2022 ambulatory GRACY CAROL Facility:[facility] Start: 07-28-2022 End: 07-28-2022 Patient encounter procedure Ronan Cabello MD Work Phone: General Surgery Comment on above: Incisional hernia, w ithout obstruction or gangrene (Primary Dx) Start: 05-17-[address] AGUS LEON . Faci lity:[facility] Start: 05-11-2022 End: 05-12-2022 ambulatory GALE VASQUEZ JR Facility:[facility] Start: 05-04-2022 End: 05-04-2022 ambulatory Gale Vasquez Other [employer] Other Start: 05-04-2022 Office outpatient visit 25 minutes Gale Vasquez [facility] Gastro[facility]ology Start: 04-18-2022 End: 04-27-2022 ambulatory BRAYAN HARMONGLES Facility:[facility] Start: 03-31-2022 End: 03-31-2022 Emergency department patient visit Gloria Meaghan Silas [facility] Start: 03-24-2022 End: 03-24-2022 Patient encounter procedure Gracy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 the injured area. Pain with or without movement. Pain when breathing in. How is this diagnosed? This condition may be diagnosed based on: Your symptoms and medical history. A physical exam. Imaging tests such as an X-ray, CT scan, or MRI to determine if there were internal injuries or broken bones (fractures). How is this treated? This condition may be treated with: Rest. This is often the best treatment for a rib contusion. Ice packs. This reduces swelling and inflammation. Deep-breathing exercises. These may be recommended to reduce the risk for lung collapse and pneumonia. Medicines. Xwfk-ipc-hwipnhu or prescription medicines may be given to control pain. Injection of a numbing medicine around the nerve near your injury (nerve block). Follow these instructions at home: Medicines Take rdhk-lhx-uckazyg and prescription medicines only as told by your health care provider. Ask your health care provider if the medicine prescribed to you: ?Requires you to avoid driving or using machinery. ?Can cause constipation. You may need to take these actions to prevent or treat constipation: ?Drink enough fluid to keep your urine pale yellow. ?Take weem-qgq-acahrwc or prescription medicines. ?Eat foods that are high in fiber, such as beans, whole grains, and fresh fruits and vegetables. ?Limit foods that are high in fat and processed sugars, such as fried or sweet foods. Managing pain, stiffness, and swelling If directed, put ice on the injured area. To do this: Put ice in a plastic bag. Place a towel between your skin and the bag. Leave the ice on for 20 minutes, 2 3 times a day. Remove the ice if your skin turns bright red. This is very important. If you cannot feel pain, heat, or cold, you have a greater risk of damage to the area. Activity Rest the injured area. Avoid strenuous activity and any activities or movements that cause pain. Be careful during activities, and avoid bumping the injured area. Do not lift anything that is heavier than 5 lb (2.3 kg), or the limit that you are told, until your health care provider says that it is safe. General instructions Do not use any products that contain nicotine or tobacco, such as cigarettes, e-cigarettes, and chewing tobacco. These can delay healing. If you need help quitting, ask your health care provider. Do deep-breathing exercises as told by your health care provider. If you were given an incentive spirometer, use it every 1 2 hours while you are awake, or as recommended by your health care provider. This device measures how well you are filling your lungs with each breath. Keep all follow-up visits. This is important. Contact a health care provider if you have: Increased bruising or swelling. Pain that is not controlled with treatment. A fever. Get help right away if you: Have difficulty breathing or shortness of breath. Develop a continual cough, or you cough up thick or bloody mucus from your lungs (sputum). Feel nauseous or you vomit. Have pain in your abdomen. These symptoms may represent a serious problem that is an emergency. Do not wait to see if the symptoms will go away. Get medical help right away. Call your local emergency services (911 in the [place] Do not drive yourself to the hospital. Summary A rib contusion is a deep bruise on your rib area. Contusions are the result of a blunt trauma that causes bleeding and injury to the tissues under the skin. The skin over the contusion may turn blue, purple, or yellow. Minor injuries may cause a painless contusion. More severe contusions may be painful and swollen for a few weeks. Rest the injured area. Avoid strenuous activity and any activities or movements that cause pain. This information is not intended to replace advice given to you by your health care provider. Make sure you discuss any questions you have with your health care provider. Document Revised: 12/16/2020 Document Reviewed: 12/16/2020 [employer] Patient Education 2023 [employer]. Follow Up Care 02/02/2025 18:31:47 With:[employer] Address: [address] [place] [address] Business (1) When:02/05/2025 19:39:38 [facility] 02-02-2025 Note ED Patient Education Note Orthopedics Rib Contusion A rib contusion is a deep bruise on the rib area. Contusions are the result of a blunt trauma that causes bleeding and injury to the tissues under the skin. A rib contusion may involve bruising of the ribs and of the skin and muscles in the area. The skin over the contusion may turn blue, purple, or yellow. Minor injuries result in a painless contusion. More severe contusions may be painful and swollen for a few weeks. What are the causes? This condition is usually caused by a hard, direct hit to an area of the body. This often occurs while playing contact sports. What are the signs or symptoms? Symptoms of this condition include: ??? Swelling and redness of the injured area. ??? Discoloration of the injured area. ??? Tenderness and soreness of the injured area. ??? Pain with or without movement. ??? Pain when breathing in. How is this diagnosed? This condition may be diagnosed based on: ??? Your symptoms and medical history. ??? A physical exam. ??? Imaging tests?such as an X-ray, CT scan, or MRI?to determine if there were internal injuries or broken bones (fractures). How is this treated? This condition may be treated with: ??? Rest. This is often the best treatment for a rib contusion. ??? Ice packs. This reduces swelling and inflammation. ??? Deep-breathing exercises. These may be recommended to reduce the risk for lung collapse and pneumonia. ??? Medicines. Xpcd-mvc-optownk or prescription medicines may be given to control pain. ??? Injection of a numbing medicine around the nerve near your injury (nerve block). Follow these instructions at home: Medicines ??? Take mqaw-ick-qspbwjj and prescription medicines only as told by your health care provider. ??? Ask your health care provider if the medicine prescribed to you: ? Requires you to avoid driving or using machinery. ? Can cause constipation. You may need to take these actions to prevent or treat constipation: ? Drink enough fluid to keep your urine pale yellow. ? Take ezeg-msr-nswbsok or prescription medicines. ? Eat foods that are high in fiber, such as beans, whole grains, and fresh fruits and vegetables. ? Limit foods that are high in fat and processed sugars, such as fried or sweet foods. Managing pain, stiffness, and swelling If directed, put ice on the injured area. To do this: ??? Put ice in a plastic bag. ??? Place a towel between your skin and the bag. ??? Leave the ice on for 20 minutes, 2?3 times a day. ??? Remove the ice if your skin turns bright red. This is very important. If you cannot feel pain, heat, or cold, you have a greater risk of damage to the area. Activity ??? Rest the injured area. ??? Avoid strenuous activity and any activities or movements that cause pain. Be careful during activities, and avoid bumping the injured area. ??? Do not lift anything that is heavier than 5 lb (2.3 kg), or the limit that you are told, until your health care provider says that it is safe. General instructions ??? Do not use any products that contain nicotine or tobacco, such as cigarettes, e-cigarettes, and chewing tobacco. These can delay healing. If you need help quitting, ask your health care provider. ??? Do deep-breathing exercises as told by your health care provider. ??? If you were given an incentive spirometer, use it every 1?2 hours while you are awake, or as recommended by your health care provider. This device measures how well you are filling your lungs with each breath. ??? Keep all follow-up visits. This is important. Contact a health care provider if you have: ??? Increased bruising or swelling. ??? Pain that is not controlled with treatment. ??? A fever. Get help right away if you: ??? Have difficulty breathing or shortness of breath. ??? Develop a continual cough, or you cough up thick or bloody mucus from your lungs (sputum). ??? Feel nauseous or you vomit. ??? Have pain in your abdomen. These symptoms may represent a serious problem that is an emergency. Do not wait to see if the symptoms will go away. Get medical help right away. Call your local emergency services (911 in the [place] Do not drive yourself to the hospital. Summary ??? A rib contusion is a deep bruise on your rib area. Contusions are the result of a blunt trauma that causes bleeding and injury to the tissues under the skin. ??? The skin over the contusion may turn blue, purple, or yellow. Minor injuries may cause a painless contusion. More severe contusions may be painful and swollen for a few weeks. ??? Rest the injured area. Avoid strenuous activity and any activities or movements that cause pain. This information is not intended to replace advice given to you by your health care provider. Make sure you discuss any questions you have with your health care provider. Document Revised: 12/16/2020 Document Rev (more content not included)... [facility] 02-02-2025 Evaluation + Plan note Extrac angela from: Title:ED Note Author:Mason JAUREGUI, Chris Moran te:02/02/25 Contusion of rib on left verónica e (S20.212A: Contusion of left front wall of thorax, initial encounter) Orders: ketorolac, 30 mg = 1 mL, Injection, IntraMuscular, Once, Stop date 02/02/25 19:38:00 EDT, STAT, Start date 02/02/25 19:38:00 EDT, 02/02/25 19:38:00 EDT naproxen, 500 mg = 1 tab(s), Oral, BID, X 10 day(s), # 20 tab(s), Refills(s) 0, Pharmacy: [facility]/pharmacy #[id number], 149, cm, 02/02/25 18:37:00 EDT, Height/Length Dosing, 65, kg, 02/02/25 18:37:00 EDT, Weight Dosing triamcinolone, 40 mg = 1 mL, Susp-Inj, IntraMuscular, Once, Stop date 02/02/25 19:38:00 EDT, STAT, Start date 02/02/25 19:38:00 EDT, 02/02/25 19:38:00 EDT XR Ribs Unilat 3 Views Left w/ PA Chest [facility] [id number] Telephone encounter Note* Telephone Encounter - Georgie Rodríguez NP - 11/17/2024 2:32 PM EST HR OOO, [facility]. [id number] Miscellaneous Notes* Telephone Encounter - Georgie Rodríguez NP - 11/17/2024 2:32 PM EST HR OOO, rx sent. documented in this encounterPike [facility] [id number] NoteUTP CARDIOLOGY PROGRESS NOTE HPI: Nathaniel Marcial is a 48 y.o. female here for follow up hypertension and SVT. C/o butterflies in her chest. It's hard for her to explain. Not really palpitations, and it's not painful. SOB has improved. She stopped taking lisinopril a few weeks ago due to hypotension and dry cough. BP was dropping to 80-90's/50-60's. BP's without the lisinopril have been running 109/75, 132/92. She had ankle surgery in November 2023, which was without complication. Cardiology ROS: 10 point ROS is performed and is negative unless otherwise specified in HPI. Visit Vitals Smoking Status Every Day Allergies Allergen Reactions Bacitracin Unknown Lamictal [Lamotrigine] [...] lunch, before evening meal, and at bedtime. lisinopril 5 mg tablet TAKE 1 TABLET BY MOUTH EVERY DAY IN THE MORNING 90 tablet 3 methocarbamol (Robaxin) 750 mg tablet Take 750 mg by mouth in the morning, at noon, in the evening, and at bedtime. metoprolol succinate XL (Toprol-XL) 100 mg 24 hr tablet TAKE 1 TABLET BY MOUTH IN THE MORNING DO NOT CRUSH OR CHEW 90 tablet 3 pantoprazole (ProtoNix) 40 mg EC tablet Take [...] 1 occurrence of SVT A/P: -SVT: Patient reports some palpitations Continue beta-zeeshan. Will order event monitor to ensure no additional arrythmais -Dyspnea on exertion: Recommend PFTs. Recommend continuing with inhalers. No ischemia on stress from 04/2023 -Palpitations: worsening, continue beta-zeeshan, 30 day event ordered -Blood pressure monitor ordered for HTN given that patient is holding Bp meds -Optimize medical management -Aggressive risk factor modification -Plan of care discussed with patient. All questions were answered. Patient voices understanding and is agreeable with current plan. -Patient was educated on red flag symptoms. Strict return precautions were provided. Patient verbalizes understanding -Follow-[facility] in cardiology clinic [facility] Discharge instructions Patient Education 11/26/2023 20:23:06 Contusion, Ffew-jc-Huwv Contusion A contusion is a deep bruise. [...] sitting or lying down. General instructions Take sxcj-dks-mrqkmbo and prescription medicines only as told by [...] and elevation. This is also called RICE. Youmay be given hkrw-wdx-qyybjgq medicines for pain. Contact a doctor if you do not feel better, or you feel worse. Get help right away if you have verybad pain, have lost feeling in a hand or foot, or the area turns pale or cold. This information is not intended to replace advice given to you by your health care provider. Make sure you discuss any questions you have with your health care provider. Document Revised: 07/07/2022 Document Reviewed: 07/07/2022 [employer] Patient Education 2022 [employer]. Follow Up Care 11/26/2023 19:41:00 With:Carol DESHPANDE, Gracy Graff Address: [address] [place] [address]- When:11/29/2023 [facility]03-03-2024 Evaluation + Plan noteExtracted from: Title:ED Note Author:Rachelle JAUREGUI, Jessica Stone Date :11/26/23 1. Contusion of toe, left (S 90.122A: Contusion of left lesser toe(s) without damage to nail, initial encounter) Orders: XR Foot 3+ Views Left [facility]01-19-2024 Hospital Discharge instructions Patient Education 10/13/2023 18:55:44 Abdominal Pain, Adult, Hxdi-hd-Zzec Abdominal Pain, Adult Many things can cause belly (abdominal) pain. Most times, belly pain is not dangerous. Many cases of belly pain can be watched and treated at home. Sometimes, though, belly pain is serious. Your doctor will try to find the cause of your belly pain. Follow these instructions at home: Medicines Take dmit-nqv-jqlgceb and prescription medicines only as told by [...] your belly pain for any changes. Take gayn-uwk-icvyiai and prescription medicines only as told by [...] provider. Document Revised: 01/20/2020 Document Reviewed: 01/20/2020 [employer] Patient Education 2022 [employer]. 10/13/2023 18:55:44 Constipation, Adult Constipation, Adult Constipation [...] as fried or sweet foods. These include iraqi fries, hamburgers, cookies, candies, and soda. Drink enough fluid to keep your urine pale yellow. General instructions Exercise regularly or as told by your health care provider. Try to do 150 minutes of moderate exercise each week. Use the bathroom when you have the urge to go. Do not hold it in. Take syml-qzh-uawpmtm and prescription medicines only as told by [...] to keep your urine pale yellow. Take rbwg-dld-tyrzlmw and prescription medicines only as told by your health care provider. This includes any fiber supplements. This information is not intended to replace advice given to you by your health care provider. Make sure you discuss any questions you have with your health care provider. Document Revised: 07/29/2020 Document Reviewed: 07/29/2020 [employer] Patient Education 2022 [employer]. Follow Up Care 10/13/2023 15:41:06 With:Gracy Medina Address: [address] [place] [address]- Business (1) When:10/16/2023 18:37:35 Comments:Follow-up with your primary care provider in 3 to 5 days. If symptoms worsen, do not improve, or new symptoms arise please report back to emergency department for further evaluation. [facility]12-06-2023 Evaluation + Plan note Diagnostic Tests Pending * Clostridium difficile by PCR 08/30/23 [facility]08-17-2023 Miscellaneous Notes* Telephone Encounter - Marcie [...] calling her back today. documented in [facility] Miscellaneous Notes* Telephone Encounter - Vinita Crabtree - 05/11/2023 10:34 AM EDT Left VM and sent [employer] message to patient to see if she wants to schedule shoulder surgery with Dr. Myers on 05/18. Waiting for call back documented in this encounterAultman [facility]07-17-2023 NoteHNO ID: [id number] Author: Sharita Myers MD Service: ? Author [...] As you know she is a 47-year-old xymp-bucw-qhgkiqgf female with complaints in her shoulder that [...] strength with resisted ex (more content not included)...[facility]07-17-2023 NoteHNO ID: [id number] Author: RT Aleida(R) Service: Radiology Author Type: [...] BY: RT Slim(R) April 10, 2023 12:25 PM[facility] History of Present illness Narrative* Sharita Myers [...] As you know she is a 47-year-old ntlm-uezk-pqxcdkyv female with complaints in her shoulder that [...] TIME: 1:48 PM PAGER: documented in this encounterAultman [facility]07-06-2023 NoteHNO ID: [id number] Author: Corry Conroy Service: ? Author Type: [...] Signature: Corry Conroy March 30, 2023 2:00 [facility] NotePatient Outreach (NETNAV) NATHANIEL MARCIAL ([id number]) 1975 F Date Time Provider Department 03/30/23 [...] DEPRESSION ASSESSMENT Never done Navigation Signature: Corry Gonzalez March 30, 2023 2:00 PM Allergies As [...] gangr*07/08/2021 Encounter Status:Closed by CORRY LIN on 03/30/23[facility] History of Present illness Narrative* Corry [...] 30, 2023 2:00 PM documented in this encounterAult[facility]07-[facility]-2023 NoteHNO ID: [id number] Author: Verónica Duarte PA-C Service: ? Author Type: Physician Systems Accountant Type: Progress Notes Filed: 03/30/2023 12:43 PM [...] seen Dr. Nate Gavin with [facility] in [place] and ordered a MRI of her shoulder [...] belly press test. Positive speeds test. Positive Petersburg's test. Positive impingement signs. Positive Neer sign. Neurovascular intact distally with 2+ radial pulses bilaterally. Last XR Shoulder - Impression Only No resulted procedures found. X-rays right shoulder 01/19/23: AVN right hum (more content not included)... [facility]07-06-2023 Instructions* Patient Instructions* Verónica Duarte PA-C - 03/30/2023 11:38 AM EDT SHANIA Alvarez Dr. [phone] ([place]) PT: [phone] documented in this encounterAultman [facility]07-06-2023 History of Present illness Narrative* Verónica [...] seen Dr. Nate Gavin with [facility] in [place] and ordereda MRI of her shoulder from [...] belly press test. Positive speeds test. Positive Petersburg's test. Positive impingement signs. Positive Neer sign. [...] R glenohumeral Informed Consent Consent Obtained: Verbal [place] Protocol A moment to CARE was completed. [...] information obtained and documented by the physician tv production assistant. I examined the patient and evaluated all available films and pertinent documents. We discussed the case and I agree withthe plans as outlined in this note. SIGNATURE: Verónica Duarte PA-C PATIENT NAME: Nathaniel Marcial DATE: March 30, 2023 TIME: 11:13 AM documented in this encounterAultman [facility]07-03-2023 NoteHNO ID: [id number] Author: Aureliano Vann DPM Service: ? Author [...] with the patient. - (more content not included)...[facility]07-03[facility]2023 Instructions* Patient Instructions* Aureliano Vann DPM - 03/27/2023 1:47 PM EDT Please schedule PVR (blood flow) [phone] documented in this encounterAultman [facility]07-03-2023 NoteHNO ID: [id number] Author: Jevon Lemons Service: ? Author Type: Seedling Puller Type: Progress Notes Filed: 03/27/2023 12:28 PM [...] BY: Jevon Lemons March 27, 2023 12:28 [facility] History of Present illness Narrative* Aureliano [...] Nathaniel Marcial : 1975 To Department of Respicardia and Public Safety Registration Division The above [...] contact them, they can be reached at [phone]. For [place] appointments: [phone]. Order Specific Question: Does consulting provider have [...] 2023 TIME: 12:58 PM documented in this encounterAultman [facility]07-03-2023 History of Present illness Narrative* Jevon [...] 27, 2023 12:28 PM documented in this encounterAultman [facility]05-09-2023 Hospital Discharge instructions Patient Education 01/31/2023 [...] or salas your foot. General instructions Take hgvw-zbs-gceqjys and prescription medicines only as told by [...] provider. Document Revised: 01/01/2021 Document Reviewed: 01/01/2021 [employer] Patient Education 2022 [employer]. Follow Up Care 01/31/2023 09:38:16 With:Nate Gavin Address: [address] [place] [address]- Business (1) When:02/03/2023 11:08:08 With:Gracy Medina Address: [address] [place] [address]- Business (1) When:02/03/2023 11:08:03 [facility]03-21-2023 Evaluation note* Encounter Date Diagnosis Assessment Notes Treatment Notes Treatment Clinical Notes Nov, Abdominal pain (ICD-10 - R10.9) [facility] Other 02-18-2023 Evaluation + Plan noteExtracted from: [...] NPO Diet XR Ankle 3+ Views Left [facility]02-18-2023 Hospital Discharge instructions Patient Education 11/12/2022 09:42:18 [place] - Ankle Fracture Post Op (Custom) (Custom) [place], [place] [facility] DISCHARGE INSTRUCTIONS: ANKLE FRACTURE [...] prior to our office evaluation. Nate Gavin, [facility] [address] [place] [address] Reviewed: 12-31 Follow Up Care 11/12/2022 06:46:16 With:Nate Gavin Address: [address] [place] [address]- Business (1) When:2 weeks [facility]11-03-2022 NoteHNO ID: [id number] Author: Ronan Cabello MD Service: ? Author [...] our notes. Patient consented for study? [facility]22 NoteHNO ID: [id number] Author: Donna Donis Ms Service: ? Author Type: ? Type: Progress Notes Filed: 07/28/2022 1:17 PM Note Text: GENERAL SURGERY CLINIC NOTE Nathaniel Marcial [id number] HPI: Nathaniel Marcial is a 46 year [...] not recall but is following with a barrel header in 1 week. O: BP 125/89 Pulse [...] how to proceed. Donna Encisoir [facility] 28[facility] History of Present illness Narrative* Ronan [...] EDT GENERAL SURGERY CLINIC NOTE Nathaniel Marcial [id number] HPI: Nathaniel Marcial is a 46 year [...] not recall but is following with a barrel header in 1 week. O: BP 125/89 Pulse [...] Ms Jul 28, 2022 documented in this encounterAultman Alliance [facility] Hospital11-03-2022 Nurse Note* Dalton Lee - 07/28/2022 [...] Temperature: No Drains: No documented in this encounterAultman Alliance [facility] Hospital08-10-2022 Evaluation note* Encounter Date Diagnosis Assessment Notes Treatment Notes Treatment Clinical Notes Apr, Irritable bowel syndrome with diarrhea (ICD-10 - K58.0) Apr, Abdominal pain (ICD-10 - R10.9) Apr, Diarrhea (ICD-10 - R19.7) Apr, Bloating (ICD-10 - R14.0) [facility] Other 07-07-2022 Hospital Discharge instructions Patient Education [...] exercise. Managing pain, stiffness, and swelling Take sdcd-gbl-xcrmzzt and prescription medicines only as told by [...] 09/11/2006 Document Revised: 08/24/2018 Document Reviewed: 10/11/2017 [employer] Patient Education 2020 [employer]. Follow Up Care 03/31/2022 12:02:20 With:Carol DESHPANDE, Gracy Graff Address: [address] [place] [address]- When:04/03/2022 [facility]07-07-2022 Evaluation + Plan noteExtracted from: Title:ED [...] w/CAD if perf and 3D Robert 04/20/22 [facility]04-09-2022 Hospital Discharge instructions Patient Education 01/01/2022 [...] is stable enough for you to begin dfymp-jv-vtskfw exercises. You may also be prescribed pain [...] provider says that it is safe. Do fiidn-ts-fhykew exercises only as told by your health [...] quitting, ask your health care provider. Take azkv-dqs-ssnzjee and prescription medicines only as told by your health care provider. Ask your health care provider if the medicine prescribed to you can cause constipation. You may need to take steps to prevent or treat constipation, such as: ?Drink enough fluid to keep your urine pale yellow. ?Take fjvo-dcq-hbwmsbo or prescription medicines. ?Eat foods that are [...] 12/18/2001 Document Revised: 05/13/2019 Document Reviewed: 05/13/2019 [employer] Patient Education 2020 [employer]. Follow Up Care 01/01/2022 16:44:18 With:Gale Truong Address: [address] [place] [id number] Business (1) When:01/04/2022 19:33:35 Comments:Wear the sling when you are up and around you can take it off at night when you are sleeping. Please follow-up with orthopedic surgery for further evaluation management. Please return to the ED for any new or worsening symptoms. With:Gracy Medina Address: [address] [place] [address]- Business (1) When:Within 3 Day(s) [facility]04-09-2022 Evaluation + Plan noteExtracted from: Title:ED [...] 19:11:00 EDT, 01/01/22 19:11:00 EDT Sling [facility] + Plan note Future Appointments Appointment Date:02/06/2023 09:00:00 AM Scheduled Provider: Location:.MRI Appointment Type:MRI Humerus/Shoulder (FT) Future Scheduled Tests Radiology* MRI Shoulder w/o Contrast Right 02/06/23 [facility] note* Diagnosis Incisional hernia, without obstruction or gangrene- Primary Incisional hernia without mention of obstruction or gangrene [facility] [place] [facility]* Diagnosis Pain- Primary Generalized pain documented [facility] [place]* Diagnosis 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, subsequent encounter- Primary Osteoporosis, unspecified osteoporosis type, unspecified pathological fracture presence PAD (peripheral artery disease) ([facility]) Peripheral vascular disease, unspecified Allodynia Disturbance of skin sensation Nicotine use disorder, F17.2 Tobacco use disorder documented in this encounter [facility] [place] [facility]* Diagnosis Pain Generalized pain [facility] [place] [facility]* Diagnosis 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)- Primary Incomplete tear of right rotator cuff, unspecified whether traumatic Biceps tendonitis on right documented [facility] [place] [facility]* Diagnosis 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)- Primary [facility] [place] [facility]* Diagnosis Other osteoporosis without current pathological fracture ([facility]/HCC) [facility] [place] [facility]* Diagnosis Other constipation Generalized abdominal pain Abdominal pain, generalized [facility] N[facility]ative - Reported* Type Description Date Medical History bipolar Medical History asthma Medical History GERD Medical History IBS Surgical History C section-2X Surgical History x 2 Surgical History laparoscopy Surgical History appendectomy Surgical History hernia-10X Surgical History multiple hernia repairs Surgical History hysterectomy Surgical History back Surgical History back surgery Hospitalization History see above [facility] Other Hospital course Narrative No data available for this section [facility] No data available for this section [facility] No data available for this section [facility])* Diagnostic Procedure Only (Routine) - Authorized Specialty Diagnoses / Procedures Referred By Елена westfall Referred To Contact XR IMAGING Diagnoses Pain Procedures XR ANKLE GENERAL 3V AP/LAT/OBL LEFT RADEX ANKLE COMPLETE MINIMUM 3 VIEWS Aureliano Vann DPM [address] [place] [address] Xr Imaging Referral ID Status Reason Start Date Expiration Date Visits Requested Visits Authorized [id number] Authorized Auto-Generat ed Referral 03/08/2023 04/06/2024 1 1 [facility] for referral (narrative)* Outpatient Procedure (Routine) - Pending Review Specialty Diagnoses / Procedures Referred By Елена westfall Referred To Contact [facility] Diagnoses PAD (peripheral artery disease) (HCC) Procedures PVR LEG UNL VAS LAB NON-INVASIVE PHYSIOLOGIC STUDY EXTREMITY 3 LEVLS Aureliano Vann DPM [address] [place] [address] [facility] [address] [place] [address] Referral ID Status Reason Start Date Expiration Date Visits Requested Visits Authorized [id number] Pending Review Auto-Generat ed Referral 03/27/2023 03/26/2024 1 1 * Consult, Test, Treat (Routine) - Authorized Specialty Diagnoses / Procedures Referred By Елена t Referred To Contact Pain Management Diagnoses 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, subsequent encounter Allodynia Procedures CONSULT TO PAIN MGT OFFICE/OUTPATIENT NEW HIGH MDM 60-74 MINUTES Aureliano Vann DPM [address] [place] [address] Referral ID Status Reason Start Date Expiration Date Visits Requested Visits Authorized [id number] Authorized PCP Requested Referral 03/27/2023 03/26/2024 1 1 [facility] for referral (narrative)* Diagnostic Procedure Only (Routine) - Closed Specialty Diagnoses / Procedures Referred By Contac t Referred To Contact XR IMAGING Diagnoses Pain Procedures XR ANKLE GENERAL 3V AP/LAT/OBL LEFT RADEX ANKLE COMPLETE MINIMUM 3 VIEWS Aureliano Vann DPM [address] [place] [address] Xr Imaging Referral ID Status Reason Start Date Expiration Date V isits Requested Visits Authorized [id number] Closed Auto-Generate d Referral 03/08/2023 04/06/2024 1 1 [facility] for referral (narrative)* Diagnostic Procedure Only (Routine) - Closed Specialty Diagnoses / Procedures Referred By Mayiac t Referred To Contact XR IMAGING Diagnoses 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) Procedures XR SHOULDER GENERAL 3V OR MORE AP/TRUE AP/OTHER RIGHT RADEX SHOULDER COMPLETE MINIMUM 2 VIEWS Sharita Myers MD [address] [place] [address] Xr Imaging Referral ID Status Reason Start Date Expiration Date V isits Requested Visits Authorized [id number] Closed Auto-Generate d Referral 04/10/2023 05/09/2024 1 1 T [facility] for visit Narrative* Diagnostic Procedure Only (Routine) - Closed Specialty Diagnoses / Procedures Referred By Contac t Referred To Contact XR IMAGING Diagnoses Pain Procedures XR ANKLE GENERAL 3V AP/LAT/OBL LEFT RADEX ANKLE COMPLETE MINIMUM 3 VIEWS Aureliano Vann, DPM [address] [place] [address] Xr Imaging Referral ID Status Reason Start Date Expiration Date V isits Requested Visits Authorized [id number] Closed Auto-Generate d Referral 03/08/2023 04/06/2024 1 1 [facility] Summary Purpose Family History No Family History Records FoundNo Family History Records FoundNo Family History Records FoundNo Family History Records FoundNo Family History Records Found No data available for this section No data available for this section No Family History Records Found No data available for this section No Family History Records Found No data available [...] MINS Verónica Duarte, SHANIA [address] [place] [address] [facility] [address] [place] [id number] Referral ID Status Reason Start Date Expiration Date Visits Requested Visits Authorized [id number] Authorized PCP Requested Referral Auto-Generate d Referral [...] and content) DATE CREATED AUTHOR 03/30/2018 [facility] DATE CREATED AUTHOR AUTHOR'S ORGANIZ ATION 01/20/2023 [facility] DATE CREATED AUTHOR AUTHOR'S ORGANIZ ATION 03/03/2023 [facility] DATE CREATED AUTHOR AUTHOR'S ORGANIZ ATION 04/14/2023 [facility] DATE CREATED AUTHOR AUTHOR'S ORGANIZ ATION 05/18/2023 [facility] DATE CREATED AUTHOR AUTHOR'S ORGANIZ ATION 10/18/2023 [facility] EPIC DATE CREATED AUTHOR AUTHOR'S ORGANIZ ATION 01/23/2025 [facility] DATE CREATED AUTHOR AUTHOR'S ORGANIZ ATION 02/07/2025 [facility] DATE CREATED AUTHOR AUTHOR'S ORGANIZ ATION 02/22/2025 [facility] Care Team (unrecognized sect ion and content) Head Of Strategy Relationship Specialty Start Date End Date Gracy Medina MD [address] [place] [address] PCP - General Family Medicine 04/11/21 Head Of Strategy Relationship Specialty Start Date End Date Gracy Medina MD [address] [place] [address] PCP - General Family Medicine 04/11/21 Gracy Medina MD [address] [place] [address] Referring Family Medicine 03/07/23 Head Of Strategy Relationship Specialty Start Date End Date Gracy Medina MD [address] [place] [address] PCP - General Family Medicine 04/11/21 Gracy Medina MD [address] [place] [address] Referring Family Medicine 03/07/23 Head Of Strategy Relationship Specialty Start Date End Date Gracy Medina MD [address] [place] [address] PCP - General Family Medicine 04/11/21 Gracy Medina MD [address] [place] [address] Referring Family Medicine 03/07/23 Head Of Strategy Relationship Specialty Start Date End Date Gracy Medina MD [address] [place] [address] PCP - General Family Medicine 04/11/21 Gracy Medina MD [address] [place] [address] Referring Family Medicine 03/07/23 Head Of Strategy Relationship Specialty Start Date End Date Gracy Medina MD [address] [place] [address] PCP - General Family Medicine 04/11/21 Gracy Medina MD [address] [place] [address] Referring Family Medicine 03/07/23 Head Of Strategy Relationship Specialty Start Date End Date Gracy Medina MD [address] [place] [address] PCP - General Family Medicine 04/11/21 Gracy Medina MD [address] [place] [address] Referring Family Medicine 03/07/23 Head Of Strategy Relationship Specialty Start Date End Date Gracy Medina MD [address] [place] [address] PCP - ACO Reach 02/16/23 Unallocated, Jeremías Spann MD [address] [place] [address] PCP - General Family Medicine 06/26/24 Head Of Strategy Relationship Specialty Start Date End Date Gracy Medina MD [address] [place] [address] PCP - ACO Reach 02/16/23 Unallocated, Jeremías ProviderMD [address] [place] [address] PCP - General Family Medicine 06/26/24 REASON FOR VISIT (unrecogniz ed section and content) Reason Comments Established Patient Reason Comments New Trimalleolar fractur e 218 ORIF L ankeFall in February with repeat injury to left ankle, cellulitis at that time with admission to local hospital. Pain Trimalleolar fractur e 18 ORIF L ankeFall in February with repeat [...] Patient Question Offering patient estefania gical date. Reason Comments Med Refill Source Comments (unrecognize d section and content) In the event this informatio n is protected by the Federal Confidentiality of Alcohol and Drug Abuse Patient Records regulations: The Federal rules restrict any use of the information to criminally investigate or prosecute any alcohol or drug abuse patient.[facility] Hospital[facility] the event this information is protected by the Federal Confidentiality of Alcohol and Drug Abuse Patient Records regulations: The Federal rules restrict any use of the information to criminally investigate or prosecute any alcohol or drug abuse patient.[facility] HospitalIn the event this information is protected by the Federal Confidentiality of Alcohol and Drug Abuse Patient Records regulations: The Federal rules restrict any use of the information to criminally investigate or prosecute any alcohol or drug abuse patient.[facility] HospitalIn the event this information is protected by the Federal Confidentiality of Alcohol and Drug Abuse Patient Records regulations: The Federal rules restrict any use of the information to criminally investigate or prosecute any alcohol or drug abuse patient.[facility] HospitalIn the event this information is protected by the Federal Confidentiality of Alcohol and Drug Abuse Patient Records regulations: The Federal rules restrict any use of the information to criminally investigate or prosecute any alcohol or drug abuse patient.[facility] HospitalIn the event this information is protected by the Federal Confidentiality of Alcohol and Drug Abuse Patient Records regulations: The Federal rules restrict any use of the information to criminally investigate or prosecute any alcohol or drug abuse patient.[facility] HospitalIn the event this information is protected by the Federal Confidentiality of Alcohol and Drug Abuse Patient Records regulations: The Federal rules restrict any use of the information to criminally investigate or prosecute any alcohol or drug abuse patient.[facility] HospitalIn the event this information is protected by the Federal Confidentiality of Alcohol and Drug Abuse Patient Records regulations: The Federal rules restrict any use of the information to criminally investigate or prosecute any alcohol or drug abuse patient.[facility] HospitalIn the event this information is protected by the Federal Confidentiality of Alcohol and Drug Abuse Patient Records regulations: The Federal rules restrict any use of the information to criminally investigate or prosecute any alcohol or drug abuse patient.[facility] FOR RECORDS PERTAINING TO PATIENTS WHO [...] BE BASED ON THE PRIMARY CLINICAL RECORDS. [facility] [employer] [facility]. provides no warranty or guarantee of the accuracy or completeness of information in this document.
--- NOTE | 2025-02-23 12:29 | XR_ITS ---
The [address] [address] Patient Name: NATHANIEL MARCIAL MRN: [id number] date: 1975 Sex: F Assigned Patient Location: ER Current Patient Location: ER Accession/Order Number: [id number] Exam Date: 02/23/2025 13:09 Report Date: 02/23/2025 13:17 At the request of: ADDISON BRYANT MD Procedure: XR ribs RT min 3V w CXR1V The right lateral Rib series with Single View Chest HISTORY: Right lateral rib pain. Osteoporosis. COMPARISON: None MEDIASTINUM: Cardiac, mediastinal hilar silhouettes are within normal limits. LUNGS AND PLEURA: No acute lung process, pleural effusion or pneumothorax identified. ACUTE FINDINGS: No acute displaced fracture DEGENERATIVE CHANGE: Unremarkable SOFT TISSUE: Unremarkable POSTOP CHANGES: Spinal fixation XR/XR ribs RT min 3V w CXR1V IMPRESSION: No acute displaced fracture No acute chest findings. Impression dictated by: Will May M.D. 02/23/2025 1:17 PM Dictation Location: [employer] Electronically authenticated by: [id number] Y Date: 02/23/2025 13:17
[2025-02-23] MEDS: KETOROLAC TROMETHAMINE 30 MG/ML VIAL IM (12:57)
[2025-02-23] MEDS: ORPHENADRINE 60 MG/2 ML VIAL IM (12:57)
[2025-02-23] MEDS: OXYCODONE HCL/ACETAMINOPHEN 5MG/325MG 1 TAB PO (13:44)
[2025-02-23] MEDS: LIDOCAINE 5% PATCH 1 PATCH TOPICAL (13:45)
--- NOTE | 2025-02-23 14:01 | CT_ITS ---
The [address] [address] Patient Name: NATHANIEL MARCIAL MRN: [id number] date: 1975 Sex: F Assigned Patient Location: ER Current Patient Location: ER Accession/Order Number: [id number] Exam Date: 02/23/2025 14:43 Report Date: 02/23/2025 14:50 At the request of: ADDISON BRYANT MD Procedure: CT chest wo con CT Chest without contrast TECHNIQUE: Axial imaging with 2-D reconstruction. The CT exam was performed using one or more the following dose reduction techniques: Automated exposure control, adjustment of the MA and/or Kv according to patient size, or use of the iterative reconstruction technique. History: Right lateral rib pain COMPARISON: None THYROID: Unremarkable TRACHEA AND BRONCHI: Patent ESOPHAGUS: Unremarkable. HEART: Within normal limits PERICARDIAL EFFUSION: None CORONARY ARTERY CALCIFICATION: Present MEDIASTINUM: No adenopathy. No pneumoperitoneum. No mediastinal hematoma. PULMONARY GABRIELLA: No hilar mass or adenopathy is seen. THORACIC AORTA Unremarkable LUNG NODULE None LUNGS: Lungs are clear PLEURAL EFFUSION: None PNEUMOTHORAX: No pneumothorax seen. CHEST WALL: No abnormality AXILLA:Unremarkable BONY STRUCTURES thoracic scoliosis, degenerative changes spinal fixation nondisplaced lateral right ninth rib fracture. Callus formation. Healing/healed fracture. Image 63. UPPER ABDOMEN: Images of the upper abdomen are noncontributory. CT/CT chest wo con IMPRESSION: Nondisplaced healing/healed fracture of the posterior lateral portion of the right ninth rib. No pneumothorax or pleural effusion. No acute cardiopulmonary findings. Impression dictated by: Will May M.D. 02/23/2025 2:50 PM Dictation Location: [facility] Electronically authenticated by: [id number] Y Date: 02/23/2025 14:50
--- NOTE | 2025-02-23 14:03 | ECG_ITS ---
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 Measurements Intervals [place] Rate: 72 P: 30 MI: 138 QRS: 68 QRSD: 72 T: 58 QT: 386 QTc: 411 Interpretive Statements 1100 Sinus rhythm 9110 normal ECG Compared to ECG 12/02/2023 19:02:01 Sinus tachycardia no longer present Electronically Signed On 02-23-2025 23:55:05 EDT by ROLAND ZURITA M.D.
--- NOTE | 2025-02-23 15:12 | ED.CHESTPAI1 ---
HPI - Chest Pain General Chief Complaint: Chest Pain Stated Complaint: RIB PAIN Time Seen by Provider: 02/23/25 12:24 Source: patient Mode of arrival: walk-in Limitations: no limitations History of Present Illness HPI narrative: Patient is coming to the ER with a right sided chest wall pain that started few days ago, she mentioned that she just coughed and the pain started, she denies any nausea vomiting or any other complaints she also denies any shortness of breath but she mentioned that every time she take a deep breath it hurts. The patient have history of osteoporosis and she was worried that she broke some rib The patient denies any other complaint nor any injuries The pain is right-sided and it gets better whenever she apply cold compression she been trying that for the last few days Related Data Home Medications ?Medication ?Instructions ?Recorded ?Confirmed albuterol sulfate 90 mcg/actuation 2 inh inhalation Q6H PRN shortness 12/13/23 12/21/23 aerosol inhaler of breath or wheezing alendronate 70 mg tablet 70 mg PO .weekly 12/13/23 12/21/23 alprazolam 0.5 mg tablet 0.5 mg PO TID PRN anxiety 12/13/23 12/21/23 dicyclomine 20 mg tablet 20 mg PO TID 12/13/23 12/21/23 lisinopril 5 mg tablet 5 mg PO DAILY 12/13/23 12/21/23 methocarbamol 750 mg tablet 750 mg PO Q8H PRN muscle spasm 12/13/23 12/21/23 metoprolol succinate 100 mg 100 mg PO DAILY 12/13/23 12/21/23 tablet,extended release 24 hr pantoprazole 40 mg tablet,delayed 40 mg PO DAILY 12/13/23 12/21/23 release quetiapine 25 mg tablet 25 mg PO QPM 12/13/23 12/21/23 quetiapine 50 mg tablet 50 mg PO QPM 12/13/23 12/21/23 Previous Rx's ?Medication ?Instructions ?Recorded aspirin 81 mg tablet,delayed 81 mg PO BID 30 days #60 tabs 12/21/23 release (Adult Low Dose Aspirin) cefadroxil 500 mg capsule 500 mg PO BID 7 days #14 caps 12/21/23 ondansetron 4 mg disintegrating 4 mg PO Q8H PRN nausea and 12/21/23 tablet vomiting 5 days #15 tabs oxycodone-acetaminophen 5 mg-325 1 tab PO Q6H PRN pain 7 days #28 12/21/23 mg tablet (Percocet) tabs sennosides 8.6 mg tablet (Senna 8.6 mg PO DAILY PRN constipation 7 12/21/23 Laxative) days #7 tabs tizanidine 2 mg tablet 2 mg PO TID PRN muscle spasticity 12/21/23 7 days #21 tabs diclofenac sodium 75 mg 75 mg PO BID PRN pain #20 tabs 02/23/25 tablet,delayed release oxycodone-acetaminophen 5 mg-325 1 tab PO Q8H PRN pain #9 tabs 02/23/25 mg tablet (Percocet) Allergies Allergy/AdvReac Type Severity Reaction Status Date / Time vancomycin Allergy Severe red man Verified 02/23/25 12:07 syndrome bacitracin Allergy Mild Rash Verified 02/23/25 12:07 lamotrigine (From Lamictal) AdvReac Severe Agitated Verified 02/23/25 12:07 clindamycin AdvReac c-diff Verified 02/23/25 12:07 Review of Systems ROS Status of ROS 10 or more systems reviewed and unremarkable except as noted in history and below [facility] Medical History (Updated 02/23/25 @ 15:10 by Mariam Ledbetter MD) Back pain ?M54.9 - Dorsalgia, unspecified (ICD-10) Arthritis ?M19.90 - Unspecified osteoarthritis, unspecified site (ICD-10) History of blood transfusion ?Z92.89 - Personal history of other medical treatment (ICD-10) Insomnia ?G47.00 - Insomnia, unspecified (ICD-10) PTSD (post-traumatic stress disorder) ?F43.10 - Post-traumatic stress disorder, unspecified (ICD-10) Depression ?F32.A - Depression, unspecified (ICD-10) Bipolar disorder ?F31.9 - Bipolar disorder, unspecified (ICD-10) Panic attacks ?F41.0 - Panic disorder [episodic paroxysmal anxiety] (ICD-10) COVID-19 (10/06/23) ?U07.1 - COVID-19 (ICD-10) Pneumonia ?J18.9 - Pneumonia, unspecified organism (ICD-10) GERD (gastroesophageal reflux disease) ?K21.9 - Gastro-esophageal reflux disease without esophagitis (ICD-10) Asthma ?J45.909 - Unspecified asthma, uncomplicated (ICD-10) Dyspnea on exertion ?R06.09 - Other forms of dyspnea (ICD-10) Scoliosis ?M41.9 - Scoliosis, unspecified (ICD-10) Palpitations ?R00.2 - Palpitations (ICD-10) Hypertension ?I10 - Essential (primary) hypertension (ICD-10) Hypokalemia ?E87.6 - Hypokalemia (ICD-10) Ectopic ?O00.90 - Unspecified ectopic without intrauterine (ICD-10) Ankle instability ?M25.373 - Other instability, unspecified ankle (ICD-10) Ankle joint disorder ?M19.079 - Primary osteoarthritis, unspecified ankle and foot (ICD-10) Presence of orthopedic implant of ankle ?Z96.7 - Presence of other bone and tendon implants (ICD-10) Foot pain ?M79.673 - Pain in unspecified foot (ICD-10) Cellulitis ?L03.90 - Cellulitis, unspecified (ICD-10) Ankle fracture ?S82.899A - Other fracture of unspecified lower leg, initial encounter for closed fracture (ICD-10) Degenerative disc disease Clostridium difficile diarrhea ?A04.72 - Enterocolitis due to Clostridium difficile, not specified as recurrent (ICD-10) Shoulder pain ?M25.519 - Pain in unspecified shoulder (ICD-10) Osteoarthritis ?M19.90 - Unspecified osteoarthritis, unspecified site (ICD-10) Osteoporosis ?M81.0 - Age-related osteoporosis without current pathological fracture (ICD-10) Surgical History (Updated 12/21/23 @ 06:40 by Holli Curtis RN) H/O section ?Z98.891 - History of uterine scar from previous surgery (ICD-10) History of esophagogastroduodenoscopy (EGD) ?Z98.890 - Other specified postprocedural states (ICD-10) History of colonoscopy ?Z98.890 - Other specified postprocedural states (ICD-10) H/O unilateral salpingectomy ?Z90.79 - Acquired absence of other genital organ(s) (ICD-10) History of hernia repair ?Z98.890 - Other specified postprocedural states (ICD-10) ?Z87.19 - Personal history of other diseases of the digestive system (ICD-10) History of ankle surgery ?Z98.890 - Other specified postprocedural states (ICD-10) History of spinal surgery ?Z98.890 - Other specified postprocedural states (ICD-10) History of hysterectomy ?Z90.710 - Acquired absence of both cervix and uterus (ICD-10) Family History (Updated 12/13/23 @ 14:07 by Rachna Madera NP) Other Cardiomyopathy Delayed recovery from anesthesia Family history of coronary artery disease Family history of heart disease Family history of myocardial infarction Family history of skin cancer Family history of stroke Social History (Updated 12/21/23 @ 06:43 by Holli Curtis RN) Within the past year, how often did you have a drink containing alcohol: monthly or less Smoking status: Current every day smoker What tobacco products do you use: cigarettes Packs per day: 1 Years smoked: 37 Smoking pack-years: 37.00 Non-prescribed substance use: cannabis (any form) Non-prescribed substance use details: states has her medical card Previous occupational history: disabled Highest level of school completed/degree received: 11th grade Little interest or pleasure in doing things: not at all Feeling down, depressed, or hopeless: not at all Exam Narrative Exam Narrative: Nurses notes and vital signs reviewed and patient is not hypoxic. General: Well-appearing and in no apparent distress. Skin: Warm, dry, no pallor noted. No rash. Head: Normocephalic, atraumatic. Neck: Supple, non-tender. Eye: Pupils are equal, round and EOMI. No scleral icterus. Ears, Nose, Mouth, and Throat: TM are clear, no nasal mucosal hypertrophy. Oral mucosa is moist, no posterior oropharynx erythema, uvula is mid-line Cardiovascular: Regular Rate and Rhythm without murmur, gallop or rub. Respiratory: No accessory muscle use or respiratory distress. Lungs are clear to auscultation, no wheezing, rales or rhonchi Chest Wall: There is tenderness upon palpation of the mid right thoracic area toward the lower right thoracic area at the midaxillary line, there is no ecchymosis there is no crepitus Back: No midline thoracic or lumbar vertebral tenderness. No CVA tenderness Musculoskeletal: normal ROM, no calf or popliteal tenderness, no lower extremity edema/swelling GI: Abdomen is soft, non-distended. Normal bowel sounds. No masses appreciated. No tenderness to palpation. No rebound, guarding, or rigidity noted. Neurological: A&O x4. No cranial nerve dysfunction observed. Constitutional Vital Signs, click to edit/add: Last Vital Signs Temp 98.1 F 02/23/25 12:07 Pulse 91 H 02/23/25 12:07 Resp 16 02/23/25 12:07 BP 154/87 H 02/23/25 12:07 Pulse Ox 97 02/23/25 12:07 Course Vital Signs Vital signs: Vital Signs Temperature 98.1 F 02/23/25 12:07 Pulse Rate 91 H 02/23/25 12:07 Respiratory Rate 16 02/23/25 12:07 Blood Pressure 154/87 H 02/23/25 12:07 Pulse Oximetry 97 02/23/25 12:07 Temperature 98.1 F 02/23/25 12:07 Pulse Rate 91 H 02/23/25 12:07 Respiratory Rate 16 02/23/25 12:07 Blood Pressure 154/87 H 02/23/25 12:07 Pulse Oximetry 97 02/23/25 12:07 MDM - Chest Pain MDM Narrative Medical decision making narrative: The patient EKG showing sinus rhythm with a heart rate of [address] elevation or depression Initially an x-ray of the ribs as well as an x-ray of the chest showed no acute pathology but the patient continued to have pain I did try initially Toradol and Norflex in addition to lidocaine patch and Percocet but the patient still was worried about the pain and she was concerned because she is having a lot of pain CAT scan chest without contrast showed that the patient have the right ninth rib has a nondisplaced fracture although the patient does have some signs that it could be healing or healed and there is no other pathology detected Patient provided with Percocet for pain control in addition to incentive spirometer The patient is to follow up with primary care physician in next 2-3 days or to return to the emergency department should any of the signs or symptoms worsen or new symptoms develop. The patient agrees with the following Diagnosis and Treatment plan and the patient will be discharged home. Discharge Plan Discharge Chief Complaint: Chest Pain Clinical Impression: Closed rib fracture Patient Disposition: Home, Self-Care Time of Disposition Decision: 15:09 Condition: Good Prescriptions / Home Meds: New oxycodone-acetaminophen [Percocet] 5-325 mg tablet 1 tab PO Q8H PRN (Reason: pain) Qty: 9 0RF diclofenac sodium 75 mg tablet,delayed release (DR/EC) 75 mg PO BID PRN (Reason: pain) Qty: 20 0RF No Action albuterol sulfate 90 mcg/actuation HFA aerosol inhaler 2 inh INHALATION Q6H PRN (Reason: shortness of breath or wheezing) alendronate 70 mg tablet 70 mg PO .weekly alprazolam 0.5 mg tablet 0.5 mg PO TID PRN (Reason: anxiety) dicyclomine 20 mg tablet 20 mg PO TID lisinopril 5 mg tablet 5 mg PO DAILY metoprolol succinate 100 mg tablet extended release 24 hr 100 mg PO DAILY methocarbamol 750 mg tablet 750 mg PO Q8H PRN (Reason: muscle spasm) pantoprazole 40 mg tablet,delayed release (DR/EC) 40 mg PO DAILY quetiapine 25 mg tablet 25 mg PO QPM quetiapine 50 mg tablet 50 mg PO QPM aspirin [Adult Low Dose Aspirin] 81 mg tablet,delayed release (DR/EC) 81 mg PO BID 30 Days Qty: 60 0RF cefadroxil 500 mg capsule 500 mg PO BID 7 Days Qty: 14 0RF oxycodone-acetaminophen [Percocet] 5-325 mg tablet 1 tab PO Q6H PRN (Reason: pain) 7 Days Qty: 28 0RF ondansetron 4 mg tablet,disintegrating 4 mg PO Q8H PRN (Reason: nausea and vomiting) 5 Days Qty: 15 0RF sennosides [Senna Laxative] 8.6 mg tablet 8.6 mg PO DAILY PRN (Reason: constipation) 7 Days Qty: 7 0RF tizanidine 2 mg tablet 2 mg PO TID PRN (Reason: muscle spasticity) 7 Days Qty: 21 0RF Print Language: Uzbek Instructions: Rib Fracture (ED) Referrals: BRAYAN GUERRA [Physician] - 1 week Discharge Date/Time: 02/23/25 15:23
== END 2025-02-23 15:23 | disposition home or self-care (01) ==
PROVIDERS: Emergency Provider Emergency Medicine
DX: S22.31XA Fracture of one rib, right side, initial encounter for closed fracture (principal); X58.XXXA Exposure to other specified factors, initial encounter; M81.0 Age-related osteoporosis without current pathological fracture; Z90.710 Acquired absence of both cervix and uterus; F17.210 Nicotine dependence, cigarettes, uncomplicated
CPT/HCPCS: 71101; 71250; 93005; 94667; 96372; 99285; J1885; J2360

== ENCOUNTER 2025-04-23 13:42 | Outpatient (OUT) | payer MEDICARE, MEDICAID, SELFPAY ==
--- NOTE | 2025-04-23 14:00 | CA_ITS ---
Patient Name: NATHANIEL MARCIAL MR#: [id number] : 1975 Exam Date: 04/23/2025 Ordering Doctor: DR MAKSIM DEGROOT M.D. ECHOCARDIOGRAM REPORT PROCEDURE: CA ECHO DOPPLER COMPLETE INDICATIONS: Palpitations, abnormal ECG, smoker, hypertension, scoliosis COMPARISON: None. DESCRIPTION: COMPLETE ECHOCARDIOGRAM Real-time transthoracic echocardiography with 2D, M-mode, spectral and color flow Doppler performed. QUALITY: Technical quality was good. LEFT VENTRICLE: Normal chamber size. Mild concentric left ventricular hypertrophy. Normal systolic function. LV EF: Normal left ventricular ejection fraction, (55-60%). DIASTOLIC: Normal diastolic function. ATRIAL SEPTUM: Visually appears intact. LEFT ATRIUM: Normal chamber size. RIGHT ATRIUM: Normal chamber size. RIGHT VENTRICLE: Normal chamber size. Normal right ventricular systolic function. TRICUSPID VALVE: Normal mobility and thickness. No stenosis with trivial regurgitation. No evidence of pulmonary hypertension. RVSP 21 mmHg MITRAL VALVE: Normal mobility and thickness. No evidence of mitral valve stenosis. There is no mitral annular calcification. No mitral regurgitation. AORTIC VALVE: Normal trileaflet appearance. No visible sclerosis. Normal leaflet mobility. No evidence of aortic valve stenosis. No aortic regurgitation. AORTIC ROOT: Normal diameter and appearance, measuring 3.1 cm. Ascending aorta is normal in size, measuring 2.8 cm. PULMONIC VALVE: Normal thickness and mobility. No stenosis. No regurgitation. PERICARDIUM: No evidence of pericardial effusion. IVC: Collapses with inspiration. IVC is normal in size. PLEURA: CONCLUSION: 1. Mild concentric left ventricular hypertrophy with normal systolic function. Estimated LVEF is 55-60%. 2. Normal diastolic function. 3. No significant valvular dysfunction. 4. Normal right-sided pressures. Adult Echocardiography Procedure Report Left Ventricle LVEDD (3.7 - 5.6 cm): 3.96 cm LVESD (2.2 - 4.0 cm): 3.10 cm LVIVS thickness (0.6 - 1.2 cm): 1.20 cm LVPW thickness (0.5 - 1.0 cm): 1.10 cm e': 0.12 m/s E - e': 7.48 LVOT Max Gradient: 4.98 mm[Hg] LVOT Area (cm2): 1.12 m/s Peak Velocity (LVOT): 1.12 m/s Mean Velocity (LVOT): 0.66 m/s LVOT Diameter 2.04 cm Left Ventricular Ejection Fraction: 55-60 % Left Atrium LA Volume Index (2D A2C): 22.32 ml/m2 Left Atrium Systolic Dimension: 3.52 cm Mitral Valve MV E to A Ratio: 1.29 Mitral Valve A-Wave Peak Velocity: 0.67 m/s Mitral Valve E-Wave Peak Velocity: 0.86 m/s Right Ventricle Aorta AO Root Diam: 3.12 cm Ascending Ao Diam: 2.80 cm Aortic Valve AoV Area (Peak Ryan): 2.84 cm2, 2.84 cm2 AoV Area (VTI): 2.48 cm2, 2.48 cm2 Peak Velocity(Antegrade Flow): 1.28 m/s Peak Gradient(Antegrade Flow): 6.57 mm[Hg] Mean Velocity(Antegrade Flow): 0.91 m/s Mean Gradient(Antegrade Flow): 3.70 mm[Hg] Velocity Time Integral: 28.60 cm Tricuspid Valve Peak Velocity (Regurgitant Flow): 2.09 m/s Pulmonic Valve Peak Gradient: 3.96 mm[Hg], 4.79 mm[Hg] Right Atrium Right Atrium Systolic Pressure: 20.70 ml, 20.70 ml Dictated by: Ranjit Rose M.D. on 04/23/2025 at 18:50 Approved by: Ranjit Rose M.D. on 04/23/2025 at 18:54
== END 2025-04-23 13:43 | disposition home or self-care (01) ==
LOC: CARD 13:42
PROVIDERS: PCP Family Medicine; Visit Provider Internal Medicine Interventional Cardiology
DX: R93.1 Abnormal findings on diagnostic imaging of heart and coronary circulation (principal); R00.2 Palpitations
CPT/HCPCS: 93306

== ENCOUNTER 2025-06-14 16:50 | Emergency (ER) | payer MEDICARE, MEDICAID, SELFPAY ==
--- OUTSIDE RECORDS SUMMARY | 2024-07-03 09:00 | XMS_ITS ---
Author Organization [facility] in [place] Address [address] [place] [address] Care Team Providers Care Child Life Therapist Name Role Phone Gracy Medina MD Primary Care Provider Ej Monsivais [phone] REASON FOR VISIT 6 week f/u Encounters Encounter Location Date Provider Diagnosis [facility] (PODIATRY) [address] [place] [address] [place] [address] 07/03/2024 Ej Walsh Plan Of Treatment No Information Progress Notes * Abeba MARCIALDOB:1975 (49 yo F)Acc No.[id number]:07/03/2024 UNLOCKED PROGRESS NOTE Follow Up Patient: Abeba VALADEZ Provider: Jean Pierre Walsh DPM, MS :1975 A ge:48 Y S ex:Female Date:07/03/2024 Address:[address], [place], [id number] Pcp:Gracy Medina MD Subjective: * Chief Complaints: * 1 . 6 week f/u. * Medical History: Objective: * Vitals: Assessment: Plan: * Treatment: * * Electronic signature of Gio Walsh DPM on 06/14/2025 at 04:57 PM EDT Sign off status: Pending Visit Status: N /S N/C (No Show/No Charge) * Provider: Jean Pierre Walsh DPM, MS Date: 1 Generated for Kala wilson/Nathaly/Enrique on: 0 06/14/2025 04:57 PM EDT
--- OUTSIDE RECORDS SUMMARY | 2025-06-05 07:30 | XMS_ITS ---
Author Organization [facility] Address [address] [address], [place] [address] Care Team Providers Care Oil Well Drilling Manager Name Role Phone Ej Walsh Unavailable [phone] Allergies Allergen (clinical drug ingredient) Drug/Non Drug Allergy documented on EMR Reaction Allergy Type Onset Date Status lamotrigine LaMICtal Unknown Drug Allergy Activ e bacitracin Bacitracin Unknown Drug Allergy Activ e clindamycin Clindamycin Unknown Drug Allergy Act anil vancomycin Vancomycin Unknown Drug Allergy Activ e REASON FOR VISIT Left Foot Pain- glass Medications Medication SIG (Take, Route, Frequency, Duration) Notes Start Date End Date Status PriLOSEC Active SEROquel 50 MG Tablet 1 tablet at bedtim e Orally Once a day Active Albuterol Sulfate HFA 108 (90 Base) MCG/ACT Aerosol Solution Inhalation; Duration: 25 Days Active ALPRAZolam 0.5 MG Tablet Oral; Duration: 30 Days Active Coreg 25 MG Tablet 1 tablet with food O rally Twice a day Active Encounters Encounter Location Date Provider Diagnosis [facility] [address] [address], [place] [address] 06/05/2025 Ej Walsh Acute foreign body of toe of left foot, initial encounter S90.455A Assessments Encounter Date Diagnosis (ICD Code) Assessment Notes Treatment Notes Treatment Clinical Notes Section Notes 06/05/2025 Acute foreign body of toe of left foot, initial encounter (ICD-10 - S90.455A) Abeba presents with a new problem involving a piece of glass in her left plantar 3rd toe. After consent was obtained, I was able to trim the surrounding skin down with a #15 blade which made the shard of glass visible. Then with a nail currett and forceps I was able to remove the foreign body from the subcutaneous tissues. No anesthesia was necessary and no sign of infection was encountered. She will monitor for SOI and f/u in 2 weeks, call sooner if any issue arises Plan Of Treatment Treatment Notes Assessment Notes Acute foreign body of toe of left foot, initial encounter Abeba presents with a new problem involving a piece of glass in her left plantar 3rd toe. After consent was obtained, I was able to trim the surrounding skin down with a #15 blade which made the shard of glass visible. Then with a nail currett and forceps I was able to remove the foreign body from the subcutaneous tissues. No anesthesia was necessary and no sign of infection was encountered. She will monitor for SOI and f/u in 2 weeks, call sooner if any issue arises Next Appt Details Follow Up: 2 Weeks, Reason: History and Physical Notes * HPI (History of Present Illness) Category Sub-Category Detail Notes Category Not es Foot Abeba present s with a new problem. She relates to a glass being dropped on the kitchen floor a couple of weeks ago and believes she has a shard of glass in her left 3rd toe. She attempted to remove it herself but was unsuccessful. She denies signs or symptoms of infection but relates to pain with every step. Examination Category Sub-Category Detail Notes Category Not es General Examination Skin: Tiny puncture noted at plantar aspect of left 3rd toe. No signs of infection Neuro: light touch intact to dorsal & plantar foot. Negative tinel's sign Vascular: Faintly Palpable pedal pulses. No significant swelling or bruising. No calf pain on squeeze MSK: POP plantar 3rd toe. Able to fire all muscle groups equally & symmetrically. Progress Notes * Abeba MARCIALDOB:1975 (49 yo F)Acc No.[id number]:06/05/2025 New Patient Patient: Abeba Herzog Provider: Jean Pierre Walsh DPM :1975 A ge:49 Y S ex:Female Date:06/05/2025 Phone: Address:[facility] [address]ERA, [address] , [place], [id number] Subjective: * Chief Complaints: * L eft Foot Pain- glass * HPI: F oot: Abeba presents with a new problem. She relates to a glass being dropped on the kitchen floor a couple of weeks ago and believes she has a shard of glass in her left 3rd toe. She attempted to remove it herself but was unsuccessful. She denies signs or symptoms of infection but relates to pain with every step. * Medical History: Asthma GERD High Blood Pressure Varicose Veins Medical History Verified * Family History: F ather: diagnosed with Essential hypertension, Heart disease. M other: diagnosed with Essential hypertension, Heart disease. F amily History Verified.. * Medications: T akingSEROquel 50 MG Tablet 1 tablet at bedtime Orally Once a day PriLOSEC Coreg 25 MG Tablet 1 tablet with food Orally Twice a day ALPRAZolam 0.5 MG Tablet Oral Albuterol Sulfate HFA 108 (90 Base) MCG/ACT Aerosol Solution Inhalation Medication List reviewed and reconciled with the patientTaking SEROquel 50 MG Tablet 1 tablet at bedtime Orally Once a day Taking PriLOSEC Taking Coreg 25 MG Tablet 1 tablet with food Orally Twice a day Taking ALPRAZolam 0.5 MG Tablet Oral Taking Albuterol Sulfate HFA 108 (90 Base) MCG/ACT Aerosol Solution Inhalation Medication List reviewed and reconciled with the patient * Allergies: V ancomycinBacitracinLaMICtalClindamycinyesAllergies Verified. Objective: * Examination: G eneral Examination: S kin: Tiny puncture noted at plantar aspect of left 3rd toe. No signs of infection Neuro: light touch intact to dorsal & plantar foot. Negative tinel's sign Vascular: Faintly Palpable pedal pulses. No significant swelling or bruising. No calf pain on squeeze MSK: POP plantar 3rd toe. Able to fire all muscle groups equally & symmetrically. Assessment: * Assessment: 1. A cute foreign body of toe of left foot, initial encounter - S90.455A (Primary) ? Plan: * Treatment: * Procedure Codes: 2 8190 REMOVAL OF FOOT FOREIGN BODY * Follow Up: 2 Weeks Billing Information: * Procedure Codes: 87893 REMOVAL OF FOOT FOREIGN BODY. * Sign off status: Completed true * Provider: Jean Pierre Walsh DPM Date: 06/05/2025 Generated for Kala wilson/Nathaly/Servandoitting on: 06/14/2025 04:58 PM EDT
[2025-06-14 16:54] VITALS: BP 150/92; PULSE 67; TEMP 36.7; O2SAT 99; BMI 26.9
--- OUTSIDE RECORDS SUMMARY | 2025-06-14 16:58 | XMS_ITS | Patient Health Record ---
Author Organization [facility] Address [address] [address], [place] [address] Care Team Providers Care Director Property Name Role Phone Ej Walsh Unavailable [phone] Allergies Allergen (clinical drug ingredient) Drug/Non Drug Allergy documented on EMR Reaction Allergy Type Onset Date Status lamotrigine LaMICtal Unknown Drug Allergy Activ e bacitracin Bacitracin Unknown Drug Allergy Activ e clindamycin Clindamycin Unknown Drug Allergy Act anil vancomycin Vancomycin Unknown Drug Allergy Activ e Reason For Referral No Information Medications Medication [...] Active Encounters Encounter Location Date Provider Diagnosis [facility] [address] [address], [place] [address] 06/05/2025 Ej Sheldonsuman Acute foreign body of toe of left [...] if any issue arises Plan Of Treatment No Information Insurance Providers Payer Name Payer Address Payer Phone Subscriber Number Group Number Insured Name Patient Relationship to Insured Coverage Start Date Coverage End Date Medicare of [place] [address] [place], [place] [id number] Abeba Elam Self - patient is the insured Medicaid of [place] [address] [place] [address] [id number] Abeba Elam Self - patient is the insured Medical (General) History Medical History History ICD Code Asthma GERD High Blood Pressure Varicose Veins
--- OUTSIDE RECORDS SUMMARY | 2025-06-14 16:58 | XMS_ITS | Clinical Summary ---
Author Organization [facility] Address [id number] [address] [place] [address] Care Team Providers Care Industrial Electrician Journeyman Name Role Phone Gracy Mednia MD Primary Care Provider Allergies Active Allergy [...] Date Last Done Comments Depression Screening 1986 Adult BMI Screening 08/24/2024 08/24/2023 Tobacco Screening 08/24/2024 08/24/2023 Zoster (Shingles) Vaccine (1 of 2) 2024 COVID-19 Vaccine (3 - 2024-2 6 season) 2025 02/08/2021, 01/18/2021 Influenza Vaccine 05/26/2025 06/10/2019, , 06/12/2015 DTaP,Tdap and Td Vaccines (3 - Td or Tdap) 08/02/2032 08/02/2022, 08/02/2022 Medical Devices [place] [address] MEDICARE MEDICAID [place] Care Teams Industrial Electrician Journeyman Relationship Specialty Start Date End Date Gracy Medina MD PCP - General Family Medicine 08/24/23
--- OUTSIDE RECORDS SUMMARY | 2025-06-14 16:58 | XMS_ITS | Encounter Summary ---
Author Organization [facility] Address [address] [place] [address] Care Team Providers Care Business Center Representative Name Role Phone Alfie Rubio MD Primary Care Provider [phone] Morales CHEN DO, Rolland R Primary Care Provider Gracy Medina MD Primary Care Provider [phone] Gracy Medina MD Unavailable [phone] German Sheehan DO Unavailable Source Comments In the event this information is protected by the Federal Confidentiality of Alcohol and Drug AbusePatient Records regulations: The Federal rules restrict any use of the information to criminally investigate or prosecute any alcohol or drug abuse patient.[facility] Encounter Details Date Type Department Care Team (Latest Contact Info) Description 03/06/2005 Prob Sum Review Provider, Cccesar Social History Tobacco Use Types Packs/Day Years Used Date Smoking Tobacco: Never Assessed Comments No Sex and Gender Information Value Date Recorded Sex Assigned at Not on file Legal Sex Female 9:50 AM EST Gender Identity Not on file Sexual Orientation Not on file documented as of this encounter Plan of Treatment Upcoming Encounters Date Type Department Care Team (Late st Contact Info) Description 10/10/2025 9:20 AM EST Office Visit Gastroenterology [address] [place] [address] Lucius Vasquez Jr., DO [address] [place] [address] German Sheehan's office referring the patient to be seen in GI for C difficile enteritis, prev patient of Dr. Vasquez. documented as of this encounter Visit Diagnoses Not on filedocumented in this encounter Care Teams Business Center Representative Relationship Specialty Start Date End Date Alfie Rubio MD [address] [place] [address] PCP - General 06/20/02 06/23/15 Qamar Nielsen III, DO [address] [place] [address] PCP - General Family Medicine 06/24/15 04/10/21 Gracy Medina MD [address] [place] [address] PCP - General Family Medicine 04/11/21 Gracy Medina MD [address] [place] [address] Referring Family Medicine 03/07/23 German Sheehan DO [address] [place] [id number] Referring Family Medicine 03/04/25 documented as of this encounter
--- OUTSIDE RECORDS SUMMARY | 2025-06-14 16:58 | XMS_ITS | Encounter Summary ---
Author Organization [facility] Address [address] [place] [address] Care Team Providers Care Animal Stunner Name Role Phone Gracy Medina MD Primary Care Provider [phone] Gracy Medina MD Unavailable [phone] Unallocated, Noms Provider Primary Care Provi [...] often do you attend chur ch or sikhism services? Never 02/23/2023 Do you belong to any clubs o r organizations such as episcopal groups, unions, fraternal or athletic groups, or [...] housing, medical care, and heating? Hard 02/23/2023 [facility] of Occupat ional Health - Occupational [...] place to sleep or slept in a retirement (including now)? No 02/23/2023 Comments Unknown Sex [...] Collapse of the humeral head as described. Welder Tack: [facility] Transcribe Date/Time: Apr 13 2023 4:03P Dictated by : PAUL REED MD This examination was interpreted and the report reviewed and electronically signed by: PAUL REED MD on Apr 13 2023 4:04PM EST [id number]^AGFA_IDC^SI^ACN Procedure Note Radiology, Radiologist, MD - 04/13/2023 [...] Collapse of the humeral head as described. Welder Tack: [facility] Transcribe Date/Time: Apr 13 2023 4:03P Dictated by : PAUL REED MD This examination was interpreted and the report reviewed and electronically signed by: PAUL REED MD on Apr 13 2023 4:04PM EST [id number]^AGFA_IDC^SI^ACN us Generic External Data Provider IMG CT PROCEDURES Final Result documented in this encounter Visit Diagnoses Not on filedocumented in this encounter Care Teams Animal Stunner Relationship Specialty Start Date End Date Gracy Medina MD [address] [place] [address] PCP - General Family Medicine 02/14/23 06/25/24 Gracy Medina MD [address] [place] [address] PCP - ACO Reach 02/16/23 Unallocated, Noms Provider, [address] [facility] [place] [address] PCP - General Family Medicine 06/26/24 documented as of this encounter
--- OUTSIDE RECORDS SUMMARY | 2025-06-14 16:58 | XMS_ITS | Encounter Summary ---
Author Organization [facility] Address [address] [place] [address] Care Team Providers Care Emulsification Operator Name Role Phone Gracy Medina MD Primary Care Provider [phone] Gracy Medina MD Unavailable [phone] Unallocated, Noms Provider Primary Care Provi cinthya Encounter Details Date Type Department Care Team (Late st Contact Info) Description 05/10/2023 Orders Only [facility] [address] [place] [id number] Gracy Medina MD [address] [place] [address] Social History Tobacco Use Types Packs/Day Years [...] often do you attend chur ch or presybeterian services? Never 02/23/2023 Do you belong to [...] housing, medical care, and heating? Hard 02/23/2023 [facility] of Occupat ional Health - Occupational Stress [...] on filedocumented in this encounter Care Teams Emulsification Operator Relationship Specialty Start Date End Date Gracy Medina MD [address] [place] [address] PCP - General Family Medicine 02/14/23 06/25/24 Gracy Medina MD [address] [place] [address] PCP - ACO Reach 02/16/23 Unallocated, Noms Provider, [place] [address] PCP - General Family Medicine 06/26/24 documented as of this encounter
--- OUTSIDE RECORDS SUMMARY | 2025-06-14 16:58 | XMS_ITS | Encounter Summary ---
Author Organization [facility] Address [address] [place] [address] Care Team Providers Care Child Welfare Caseworker Name Role Phone Gracy Medina MD Unavailable Unallocated, Noms Provider MD Primary Care Provi cinthya Reason for Visit * Reason Comments Med Refill Encounter Details Date Type Department Care Team (Late st Contact Info) Description 09/11/2024 Refill [facility] [address] [place] [id number] Gracy Medina MD [address] [place] [address] Gastro-esophageal reflux disease without esophagitis Social History [...] How often do you attend chur or mandaen services? Never 06/24/2024 Do you belong to any clubs o r organizations such as congregation groups, unions, fraternal or athletic groups, or [...] Recorded Patient Health Questionnaire-2 Score 4 06/24/2024 [facility] of Occupat ional Health - Occupational Stress [...] a senior living (including now)? No 02/23/2023 Housing Stability Vital Sign Answer Gonzalez e Recorded In the last 12 months, was t here a time when you were not able to pay the mortgage or rent on time? No 06/24/2024 Number of Times Moved in the Last Year Not on fi le 06/24/2024 At any time in the past 12 [facility], were you homeless or living in a senior living (including now)? No 06/24/2024 Comments Unknown Sex [...] esophagitis documented in this encounter Care Teams Child Welfare Caseworker Relationship Specialty Start Date End Date Gracy Medina MD [address] [place] [address] PCP - ACO Reach 02/16/23 Unallocated, Noms Provider, [address] [place] [address] PCP - General Family Medicine 06/26/24 documented as of this encounter
--- OUTSIDE RECORDS SUMMARY | 2025-06-14 16:58 | XMS_ITS | Encounter Summary ---
Author Organization [facility] Address [address] [place] [address] Care Team Providers Care Ice Scraper Name Role Phone Gracy Medina MD Primary Care Provider [phone] Gracy Medina MD Unavailable [phone] Unallocated, Noms Provider Primary Care Provi cinthya Encounter Details Date Type Department Care Team (Late st Contact Info) Description 03/27/2023 Clinisync Result Encounter [facility] External Department Unsolicited Gracy Medina MD [address] [place] [address] Social History Tobacco Use Types Packs/Day Years [...] often do you attend chur ch or mandaeism services? Never 02/23/2023 Do you belong to any clubs o r organizations such as yazidi groups, unions, fraternal or athletic groups, or [...] housing, medical care, and heating? Hard 02/23/2023 [facility] of Occupat ional Health - Occupational Stress [...] place to sleep or slept in a correction (including now)? No 02/23/2023 Comments Unknown Sex [...] WHICH MAY RELATED TO DISUSE AND/OR HYPEREMIA. Certified Tumor Registrar: [facility] Transcribe Date/Time: Mar 27 2023 12:44P Dictated by : KENDALL GUTIERREZ MD This examination was interpreted and the report reviewed and electronically signed by: KENDALL GUTIERREZ MD on Mar 27 2023 12:45PM EST [id number]^AGFA_IDC^SI^ACN Procedure Note Radiology, Radiologist, - 03/27/2023 * [...] WHICH MAY RELATED TO DISUSE AND/OR HYPEREMIA. Certified Tumor Registrar: [facility] Transcribe Date/Time: Mar 27 2023 12:44P Dictated by : KENDALL GUTIERREZ MD This examination was interpreted and the report reviewed and electronically signed by: KENDALL GUTIERREZ MD on Mar 27 2023 12:45PM EST [id number]^AGFA_IDC^SI^ACN us Gracy Medina MD [facility] Final Resul t documented in this encounter Visit Diagnoses Not on filedocumented in this encounter Care Teams Ice Scraper Relationship Specialty Start Date End Date Gracy Medina MD [address] [place] [address] PCP - General Family Medicine 02/14/23 06/25/24 Gracy Medina MD [address] [place] [address] PCP - ACO Reach 02/16/23 Unallocated, Noms Provider, [facility] [place] [address] PCP - General Family Medicine 06/26/24 documented as of this encounter
--- OUTSIDE RECORDS SUMMARY | 2025-06-14 16:58 | XMS_ITS | Encounter Summary ---
Author Organization [facility] Address [address] [place] [address] Care Team Providers Care Franchise Business Consultant Name Role Phone Nielsen APRIL Jose BETHand Elaine Primary Care Provider Gracy Medina MD Primary Care Provider [phone] Gracy Medina MD Unavailable [phone] Aguila German Watson DO Unavailable Source Comments In the event this information is protected by the Federal Confidentiality of Alcohol and Drug AbusePatient Records regulations: The Federal rules restrict any use of the information to criminally investigate or prosecute any alcohol or drug abuse patient.[facility] Encounter Details Date Type Department Care Team (Late st Contact Info) Description 11/13/2015 Abstract General Surgery [address] [place], [place] [id number] Wicho Link MD [address] [place] [address] Social History Tobacco Use Types [...] documented in this encounter Plan of Treatment Upcoming Encounters Date Type Department Care Team (Late st Contact Info) Description 10/10/2025 9:20 AM EST Office Visit Gastroenterology [address] [place] [address] Lucius Vasquez Jr., DO [address] [place] [address] German Sheehan's office referring the patient to be seen in GI for C difficile enteritis, prev patient of Dr. Vasquez. documented as of this encounter Visit Diagnoses Diagnosis Cutaneous abscess of abdominal wall- Primary Cellulitis and abscess of trunk documented in this encounter Care Teams Franchise Business Consultant Relationship Specialty Start Date End Date Qamar Nielsen III, PCP - General Family Medicine 06/24/15 04/10/21 Gracy Medina MD [address] [place] [address] PCP - General Family Medicine 04/11/21 Gracy Medina MD [address] [place] [address] Referring Family Medicine 03/07/23 German Sheehan DO [address] [place] [address] Referring Family Medicine 03/04/25 documented as of this encounter
--- OUTSIDE RECORDS SUMMARY | 2025-06-14 16:58 | XMS_ITS | Encounter Summary ---
Author Organization [facility] Address [address] [place] [address] Care Team Providers Care Ortho Tech Name Role Phone German Sheehan MD Primary Care Provider [phone] Reason for Visit * Reason Comments Med Refill Encounter Details Date Type Department Care Team (Late st Contact Info) Description 12/31/2023 Refill [facility] [address] [place] [address] Rosy Plunkett, BACK TENDER [employer] [address] [place] [address] Essential hypertension Social History Tobacco Use Types Packs/Day Years Used Date Smoking Tobacco: Every Day Cigarettes Smokeless Tobacco: Never Alcohol Use Standard Drinks/Week Comments Not Asked 0 (1 standard drink = 0.6 oz pur e alcohol) occasional [place] Safety & Environment Answer Date Rec orded Fear of Current or Ex-Partner Not on file Emotionally Abused Not on file 11/16/2023 Physically Abused Not on file 11/16/2023 Sexually Abused Not on file 11/16/2023 Physically or Sexually Abused Not on file Comments Unknown Sex and Gender Information Value Date Recorded Sex Assigned at Female 05/01/2025 1:51 PM EDT Legal Sex Female 12:06 AM EDT Gender Identity Female 05/01/2025 1:51 PM EDT Sexual Orientation Heterosexual or Straight 03/2025 1:51 PM EDT documented as of this encounter Plan of Treatment Not on file documented as of this encounter Visit Diagnoses Diagnosis Essential hypertension Unspecified essential hypertension documented in this encounter Care Teams Ortho Tech Relationship Specialty Start Date End Date German Sheehan MD [address] [place] [address] PCP - General Family Medicine 02/20/25 Hien Medina MD [address] [place] [address] Primary Care Provider 09/25/21 02/19/25 documented as of this encounter
--- OUTSIDE RECORDS SUMMARY | 2025-06-14 16:58 | XMS_ITS | Clinical Summary ---
Author Organization [facility] Address [address] [facility] [address] [place] [address] Care Team Providers Care Music Mixer Name Role Phone Unavailable Primary Care Provider Unavailabl e Source Comments The following information is NOT included in Care Everywhere downloads:Psychiatric notes, ECG results, Cardiac Rehab notes, Pulmonary Function notes, data from SmartForms (includes but not limited toPregnancy data,audiograms, eye exams, pre-surgical evaluation notes, well-child exam data).[facility] Active Problems Problem Noted Date Diagnosed Date Sciatica 03/12/2004 Arthrodesis status 03/12/2004 Idiopathic scoliosis and kyphoscoliosis 03/12/20 04 Overview (12/31/2022): Scoliosis (and kyphoscoliosis), idiopathic IMO4.1.23 Immunizations Immunization Administration Dates Next Due DTP (CVX=01) 08/02/2022 Influenza, injectable, triva lent, preservative (RSK=808) 06/12/2015 Influenza, intradermal, triv alent, preservative free (IIV3) (PHX=513) 06/10/2019 Pfizer Monovalent (12+ yrs) SARS-COV-2 (COVID-19) vaccine, mRNA, spike protein, LNP, pres. free, 30 mcg/0.3mL dose (XWQ=934) 02/08/2021,01/18/2021 Pneumococcal polysaccharide 23 Valent (PPSV23) (CVX=33) [...] 2019 Cologuard (Stool DNA) 2019 FIT 2019 Pneumococcal Vaccine(s) (50+ yrs) (2 of 2 - PCV) 2024 08/06/2019 Shingles (RZV) Vaccine (1 of 2) 2024 COVID-19 Vaccine (3 - 2024- season) 2025, 01/18/2021 Influenza Vaccine (#1) 2025 06/10/2019, 2014 Insurance MEDICARE MEDICAID
--- OUTSIDE RECORDS SUMMARY | 2025-06-14 16:58 | XMS_ITS | Encounter Summary ---
Author Organization [facility] Address [address] [place] [address] Care Team Providers Care Bullet Swaging Machine Adjuster Name Role Phone Gracy Medina MD Primary Care Provider [phone] Gracy Medina MD Unavailable [phone] Unallocated, Noms Provider Primary Care Provi cinthya Encounter Details Date Type Department Care Team (Late st Contact Info) Description 05/31/2023 Clinisync Result Encounter [facility] External Department Unsolicited Gracy Medina MD [address] [place] [address] Social History Tobacco Use Types Packs/Day Years [...] any clubs o r organizations such as presybeterian groups, unions, fraternal or athletic groups, or [...] housing, medical care, and heating? Hard 02/23/2023 [facility] [place] of Occupat ional Health - Occupational Stress [...] place to sleep or slept in a mcc (including now)? No 02/23/2023 Comments Unknown Sex [...] on filedocumented in this encounter Care Teams Bullet Swaging Machine Adjuster Relationship Specialty Start Date End Date Gracy Medina MD [address] [place] [address] PCP - General Family Medicine 02/14/23 06/25/24 Gracy Medina MD [address] [place] [address] PCP - ACO Reach 02/16/23 Unallocated, Noms Provider, [address] [place] [address] PCP - General Family Medicine 06/26/24 documented as of this encounter
--- OUTSIDE RECORDS SUMMARY | 2025-06-14 16:58 | XMS_ITS | Patient Health Record ---
Author Organization [facility] [place] Address [address] [place] [address] Care Team Providers Care Quality Control Lead Name Role Phone Gracy Medina MD Primary Care Provider Francis Monsivais [facility] [phone] Allergies Allergen (clinical drug ingredient) Drug/Non Drug Allergy documented on EMR Reaction Allergy Type Onset Date Status bacitracin Bacitracin Unknown Drug Allergy Activ e lamotrigine Lamotrigine Unknown Drug Allergy Act anil vancomycin Vancomycin Unknown Drug Allergy Activ e Results Component Value Reference Range Notes XR foot RT min 3V (Not yet r eviewed by provider) Interpretation: Performing Lab: Notes/Report: Source Facility: [place] [address] XRay Report Signed Patient: ABEBA MARCIAL MR#: [id number] : 1975 Acct:[id number] Age/Sex: 48 / F ADM Date: 10/08/24 Loc: RAD Attending Dr: Francis Walsh D.P.M. Ordering Physician: Francis Walsh D.P.M. Date of Service: 10/08/24 Procedure(s): XR foot RT min 3V Accession Number(s): [id number] cc: Francis Walsh D.P.M.; BRAYAN MEDINA [place] [address] Patient Name: ABEBA MARCIAL MRN: [facility]:[id number] date: 1975 Sex: F Assigned Patient Location: RAD Current Patient Location: Accession/Order Number: [id number] Exam Date: 10/08/2024 12:40 Report Date: 10/09/2024 [...] Signed By: 10/09/24 0512 DD/ 0509 TD/TT: Curing Oven Tender: XR foot RT min 3V (Not yet r eviewed by provider) Interpretation: Performing Lab: Notes/Report: Source Facility: [place] [address] XRay Report Signed Patient: BAEBA MARCIAL MR#: [id number] : 1975 Acct:[id number] Age/Sex: 49 / F ADM Date: 11/27/24 Loc: RAD Attending Dr: Francis Walsh D.P.M. Ordering Physician: Francis Walsh D.P.M. Date of Service: 11/27/24 Procedure(s): XR foot RT min 3V Accession Number(s): [id number] cc: Francis Walsh D.P.M.; BRAYAN MEDINA [place] [address] Patient Name: ABEBA MARCIAL MRN: [id number] date: 1975 Sex: F Assigned Patient [facility]: [facility] Current Patient Location: RAD Accession/Order Number: [id number] Exam Date: 11/27/2024 23:19 Report Date: 11/27/2024 23:20 At the request of: FRANCIS WALSH DPPrerna Procedure: XR foot RT min 3V RIGHT [...] FRACTURE. Impression dictated by: Shree Sandra Jr., D.OHarsh11/27/2024 11:20 PM Dictation Location: [facility] Electronically authenticated by: [id number] Y Date: 11/27/2024 23:20 Dictated By: Shree Sandra M.D. 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) Active confirmed Problem Cellulitis of left lower limb (25666276886929184) Cellulitis of left lower limb (L03.116) Active confirmed Problem Ankle instability (619989) Other instability, 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) Active confirmed Problem Disorder of joint of ankle and/or foot (disorder) (527689549) Other specified joint disorders, 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) Active confirmed Problem Osteochondropathy (42952684) Other specified disorders of bone density and structure, left ankle and foot (M85.872) Active confirmed Problem Late effect of fracture of lower extremities (78641822) Displaced trimalleolar fracture of left lower leg, sequela (S82.852S) Active confirmed Problem Presence of functional implant, unspecified (Z96.9) Active confirmed Problem Pain in right foot (213546037929746) Right foot pain (M79.671) Active confirmed Problem Pain in left foot (719215371306910) Left foot pain (M79.672) Active confirmed Problem Closed trimalleolar fracture (2774430) Closed displaced trimalleolar fracture of left ankle (S82.852A) Active confirmed Vital Signs Heart Rate 72 /min 11/27/2024 Temperature 97.8 degrees Fahrenheit 11/27/2024 Oximetry 98 % 11/27/2024 Height 59 in 11/27/2024 Weight 140 lbs 11/27/2024 BMI 28.27 kg/m2 11/27/2024 Encounters Encounter Location Date Provider Diagnosis [facility] (PODIATRY) [address] [place] [address] [place] [address] 10/08/2024 Francis Walsh Right foot pain M79.671 and Displaced unspecified fracture of right lesser toe(s), initial encounter for closed fracture S92.501A [facility] (PODIATRY) [address] [place] [address] [place] [address] 11/27/2024 Francis Walsh Right foot pain M79.671 and Nondisplaced fracture of proximal phalanx of left lesser toe(s), initial encounter for closed fracture S92.515A Assessments Encounter Date Diagnosis (ICD Code) Assessment [...] for her. She may follow-up as needed Plan Of Treatment Pending Test Test Name Order Date XR Foot RT (3 views) * 10/08/2024 XR Foot RT (3 views) * 11/27/2024 XR foot RT min 3V 10/09/2024 XR foot RT min 3V 11/27/2024 XR ankle LT min 3V 07/20/2023 Insurance Providers Payer Name Payer Address Payer Phone Subscriber Number Group Number Insured Name Patient Relationship to Insured Coverage Start Date Coverage End Date [place] [address] [place] [address] [id number] Abeba Marcial Self - patient is the insured 5 [place] 2ND INS [address] OFFICE OF [place], [place] [id number] Abeba Marcial Self - patient is the insured 2 Medical (General) History Medical History History ICD Code heart problems lung problems foot and ankle problems Surgical History Surgery Date(Month/Year) left ankle surgery [facility] Dr. Nate [place] 11/12/22 Multiple hernia repairs left ankle arthroscopic, trino nt debridment, hardware removal, peroneal tendon 12/21/23
--- OUTSIDE RECORDS SUMMARY | 2025-06-14 16:58 | XMS_ITS | Encounter Summary ---
Author Organization [facility] Address [address] [place] [address] Care Team Providers Care Chief Executive Name Role Phone Gracy Medina MD Primary Care Provider [phone] Gracy Medina MD Unavailable [phone] German Sheehan DO Unavailable Source Comments In the event this information is protected by the Federal Confidentiality of Alcohol and Drug AbusePatient Records regulations: The Federal rules restrict any use of the information to criminally investigate or prosecute any alcohol or drug abuse patient.[facility] Encounter Details Date Type Department Care Team (Late st Contact Info) Description 05/11/2023 Patient Msg [facility] [address] [place] [address] Provider, [facility] Shoulder Surgery Social History Tobacco Use Types Packs/Day Years Used Date Smoking Tobacco: Some Days Smokeless Tobacco: Never Area Deprivation Index Answer Date José Luis rded National Score (1-100), lower number is lower ri sk 87 03/27/2023 State Score (1-10), lower number is lower risk 8 03/27/2023 Data from: https://www.neighborhoodatlas.medicine.[facility]/. Last address used for calculation [address] [...] 9:20 AM EST Office Visit Gastroenterology [address] [place] [address] Lucius Vasquez Jr., DO [address] [place] [address] German Sheehan's office referring the patient to be seen in GI for C difficile enteritis, prev patient of Dr. Vasquez. documented as of this encounter Visit Diagnoses Not on filedocumented in this encounter Care Teams Chief Executive Relationship Specialty Start Date End Date Gracy Medina MD [address] [place] [address] PCP - General Family Medicine 04/11/21 Gracy Medina MD [address] [place] [address] Referring Family Medicine 03/07/23 German Sheehan DO [address] [facility] [address] [place] [address] Referring Family Medicine 03/04/25 documented as of this encounter
--- OUTSIDE RECORDS SUMMARY | 2025-06-14 16:58 | XMS_ITS | Clinical Summary ---
Author Organization [facility] Address [address] [place] [address] Care Team Providers Care Mobile Disc Jockey Name Role Phone Gracy Medina MD Unavailable [...] TWICE A DAY *RINSE MOUTH AFTER USE* 3 Active pantoprazole (ProtoNix) 40 MG EC tabletIndications :Gastro-esophagea l reflux disease without esophagitis TAKE 1 TABLET BY MOUTH EVERY DAY 90 tablet 3 3 Active lisinopril 5 MG tablet Take 5 mg by mouth in the morning. 4 Active QUEtiapine (SEROquel) 25 MG tablet Take 25 mg by mouth at bedtime 4 Active QUEtiapine (SEROquel) 50 MG tablet Take 50 mg by mouth at bedtime 4 Active oxyCODONE-acetami nophen (Percocet) 5-325 MG tablet TAKE 1 TABLET BY MOUTH EVERY 6 HOURS NEEDED FOR PAIN FOR 7 DAYS 4 Active methocarbamol (Robaxin) 750 MG tabletIndications :Dorsalgia, unspecified TAKE 1 TABLET BY MOUTH THREE TIMES A DAY NEEDED FOR PAIN 90 tablet 1 4 Active albuterol HFA 90 mcg/act inhalerIndication s:Chronic obstructive pulmonary disease, unspecified COPD type (HCC) INHALE 2 PUFFS EVERY 6 HOURS IF NEEDED FOR SHORTNESS OF BREATH OR WHEEZING 18 g 3 4 Active alendronate (Fosamax) 70 MG tabletIndications :Other osteoporosis without current pathological fracture TAKE 1 TAB BY MOUTH ONCE A WEEK ON EMPTY STOMACH WITH FULL GLASS WATER.DO NOT EAT/LIE DOWN [id number]. 12 tablet 5 Active Active Problems Problem Noted Date Diagnosed [...] study and new referral to a different smocker Palpitations 08/03/2022 Overview (02/23/2023): Last Assessment & [...] Encounters Date Type Department Care Team Description 05/03/2025 Refill [facility] [address] [place] [address] Georgie Rodríguez, TRENA Other osteoporosis without current pathological fracture from Last 3 Months Immunizations Immunization Administration [...] How often do you attend chur or hindu services? Never 06/24/2024 Do you belong to any clubs o r organizations such as mormon groups, unions, fraternal or athletic groups, or [...] Recorded Patient Health Questionnaire-2 Score 4 06/24/2024 [facility] - Occupational Stress Questionnaire Answer Date Recorded [...] place to sleep or slept in a chcf (including now)? No 02/23/2023 Housing Stability Vital Sign Answer Gonzalez e Recorded In the last 12 months, was t here a time when you were not able to pay the mortgage or rent on time? No 06/24/2024 Number of Times Moved in the Last Year Not on fi le 06/24/2024 At any time in the past 12 m [facility], were you homeless or living in a chcf (including now)? No 06/24/2024 Comments Unknown Sex [...] (AWV) 06/23/2023 06/23/2022 , 05/26/2021 Influenza Vaccine (#1) 2025 06/10/2019, 2014, 06/12/2015 Colonoscopy 04/15/2029 04/15/2019, 12/23/2004 Colorectal Cancer Screening 04/15/2029 Procedures Procedure Name Priority Date/Time Associated Diagnosis Comments BI MAMMOGRAM SCREENING TOMOSYNTHESIS BILATERAL Routine 04/20/2022 Overweight Tobacco use Essential (primary) hypertension Tachycardia, unspecified Body mass index (BMI) 26.0-26.9, adult Encounter for screening mammogram for malignant neoplasm of breast COLONOSCOPY Routine 04/15/2019 12:00 PM EDT from Last 3 Months or Most Recently Relevant to Health Maintenance Results * Bilateral screening mammogram with tomosynthesis (04/20/2022) Anatomical Region Laterality Modality Breast Bilateral Mammography Narrative 04/20/2022 12:00 AM EDT PERFORMED AT [facility] LOCATION:[place] [id number] Exam Date/Time: 04/20/2022 13:18 EDT Reason for [...] VERY IMPORTANT TO YOUR HEALTH. THE CURRENT [place] COLLEGE OF RADIOLOGY AND NATIONAL COMPREHENSIVE CANCER [...] Note CONVERSION, GENERIC - 03/31/2023 PERFORMED AT [facility] LOCATION:[place] [id number] Exam Date/Time: 04/20/2022 13:18 EDT Reason for [...] VERY IMPORTANT TO YOUR HEALTH. THE CURRENT [place] COLLEGE OF RADIOLOGY AND [facility] GUIDELINES RECOMMENDS ANNUAL MAMMOGRAPHY BEGINNING AT AGE [...] Narrative 04/15/2019 12:00 PM EDT PERFORMED AT [facility] LOCATION:[id number] Procedure Note CONVERSION, GENERIC - 02/08/2023 PERFORMED AT [facility] LOCATION:[id number] us Gracy Medina MD ENDOSCOPY PROCEDURE ORDERABLE S Final Result from Last 3 Months or Most Recently Relevant to Health Maintenance Insurance MEDICARE MEDICAID [place] Care Teams Mobile Disc Jockey Relationship Specialty Start Date End Date Gracy Medina MD [address] [place] [address] PCP - ACO Reach 02/16/23 Unallocated, [facility] Provider, [address] [facility] [place] [address] PCP - General Family Medicine 06/26/24
--- OUTSIDE RECORDS SUMMARY | 2025-06-14 16:58 | XMS_ITS | Clinical Summary ---
Author Organization [facility] Address [address] [place] [address] Care Team Providers Care Agriculture Consultant Name Role Phone Gracy Medina MD Primary Care Provider Gracy Medina MD Unavailable [phone] German Sheehan DO Unavailable Allergies Active Allergy Reactions Criticality Noted Date [...] original vaccine, a ge 12+ yr, monovalent ([employer] - PURPLE TOP) 02/08/2021,01/18/2021 influenza (IIV3) vaccine, [...] is lower risk 8 03/27/2023 Data from: https://www.neighborhoodatlas.medicine.[facility]/. Last address used for calculation [address] [...] 03/30/2023 10:59 AM EDT Plan of Treatment Upcoming Encounters Date Type Department Care Team (Late st Contact Info) Description 10/10/2025 9:20 AM EST Office Visit Gastroenterology [address] [place], [place] [id number] Lucius Vasquez Jr., DO [address] [place] [id number] German Sheehan's office referring the patient to be seen in GI for C difficile enteritis, prev patient of Dr. Vasquez. Health Maintenance Due Date Last Done Comments Anxiety Screening 1992 Depression Screening 1992 Hepatitis B Vaccine (1 of 3 - 19+ 3-dose series) 1993 Cervical Cancer Screening 1995 Mammogram Screening 2014 Medicare Annual Wellness Visit 03/25/2015 CT Colonography 2019 Cologuard (FIT-DNA) 2019 Colonoscopy 2019 Colorectal Cancer Screening 2019 Fecal Occult Blood 2019 Lipid Screening 2019 Sigmoidoscopy 2019 Pneumococcal Vaccine: 50+ (2 of 2 - PCV) 08/06/2020 08/06/2019 Diabetes Screening 04/18/2024 04/18/2021, 0 04/17/2021, 04/13/2021, Additional history exists Shingrix Vaccine (1 of 2) 2024 Influenza Vaccine (#1) 2025 9, 06/25/2015, 06/12/2015 DTaP,Tdap,Td Vaccine (3 - Td or Tdap) 08/02/2032 08/02/2022, 08/02/2022 HIV Screening Completed 04/16/2021 Hepatitis C Screening Completed 04/16/2021 Medical Devices Implanted Type Area Powder Mill Operator Device Identifier Shelf Expiration Date Model / Serial / Lot Mesh Prolene Polypropylene 6x4in Surgical Patch Soft Flat Sterile Hernia - [id number] Implanted:Qty: 1 on 10/21/2015 at [facility] Mesh N/A: Abdomen BARD [employer] 06/21/2020 [id number] / / [id number] Procedures Procedure Name Priority Date/Time Associated Diagnosis Comments BASIC METABOLIC PANEL STAT 04/18/2021 1:10 AM EDT OCCUPATIONAL HEALTH EXPOSURE PROFILE/PATIENT STAT 04/16/2021 11:50 AM EDT from Last 3 Months or Most Recently Relevant to Health Maintenance Results * (ABNORMAL) BASIC METABOLIC PNL (04/18/2021 1:10 AM EDT) [facility] Glucose 96 74 - 99 mg/dL 04/18/2021 2:45 AM EDT [facility] Comment: The [place] Diabetes Association (ADA) provides guidance for cutoff [...] Standards of Medical Care in Diabetes 2016, [place] Diabetes Association. Diabetes Care. 2016.39(Suppl 1). BUN 8 7 - 21 mg/dL 04/18/2021 2:45 AM EDT [facility] Creatinine 0.61 0.58 - 0.96 mg/dL 04/18/2021 2:45 AM EDT [facility] Sodium 140 136 - 144 mmol/L 04/18/2021 2:45 AM EDT [facility] Potassium 3.9 3.7 - 5.1 mmol/L 04/18/2021 2:45 AM EDT [facility] Chloride 103 97 - 105 mmol/L 04/18/2021 2:45 AM EDT [facility] CO2 30 22 - 30 mmol/L 04/18/2021 2:45 AM EDT [facility] Anion Gap 7(L) 9 - 18 mmol/L 04/18/2021 2:45 AM EDT [facility] Calcium 8.5 8.5 - 10.2 mg/dL 04/18/2021 2:45 AM EDT [facility] eGFR- >60 04/18/2021 2:45 AM EDT [facility] eGFR-All Other Races >60 . 04/18/2021 2:45 AM EDT [facility] Comment: eGFR (Estimated GFR) Units of [...] 1:10 AM EDT 04/18/2021 1:11 AM EDT us Ronan Pardo MD LABORATORY Fin al Result [facility] [address] [place] [address] [facility] [address] [place] [address] * OCCUPATIONAL HEALTH EXPOSURE PROFILE/PATIENT (04/16/2021 11:50 AM EDT) HBsAg Negative Negative 04/16/2021 8:00 PM EDT [facility] HIV 12 Combo (Ag/Ab) Non Reactive Non Reactive [facility] Confirmatory Test Not Indicated [facility] Interpretation Negative 04/16/2021 10:50 PM [facility] Comment: No evidence of HIV-1 or HIV-2 infection. Should recent infection be suspected, repeat testing may be considered 2-3 weeks after this draw. HIV Information: [place] Rev. Code 3701.243(E): This information has been [...] [place] Negative Negative 021 8:00 PM EDT [facility] HIV, Rapid ([facility] TEAM INTERVAL) Non Reactive Non Reactive 04/16/2021 12:39 PM T [facility] Comment: Called to and read back by: [facility] [phone] Negative for HIV-1 and HIV-2 antibodies. A non-reactive result does not preclude the possibility of exposure to HIV or infection with HIV. An antibody response to recent exposure may take several weeks to reach detectable levels with this assay. Performed by the [employer] [facility] Rapid HIV-1/2 Antibody Test. HIV Information: [place] Rev. Code 3701.243(E): This information has been [...] EDT 04/16/2021 12:05 PM EDT Comment:SERUM~BLOOD, WHOLE us Yris Israel HEALTH DATA ANALYST.[facility] Final Result [facility] [address] [place] [address] [facility] [address] [place] [address] from Last 3 Months or Most Recently Relevant to Health Maintenance Insurance MEDICARE MEDICAID [place] Care Teams Agriculture Consultant Relationship Specialty Start Date End Date Gracy Medina MD [address] [place] [address] PCP - General Family Medicine 04/11/21 Gracy Medina MD [address] [place] [address] Referring Family Medicine 03/07/23 German Sheehan DO [address] [facility] [address] [place] [address] Referring Family Medicine 03/04/25
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
--- OUTSIDE RECORDS SUMMARY | 2025-06-14 16:59 | XMS_ITS | CCD ---
Author Organization [facility]iniSynj Care Team Providers Care Research Nurse Name Role Phone PHYSICIAN, DEFAULT Unavailable Unavailable [...] Unavailable CAROL, HIEN Primary Care Unavailable KRISTINE ., FLORENCIA Consulting Unavailable SEBASTIAN, BERNARDA Admitting Unavailable SEBASTIAN, BERNARDA Attending Unavailable CAROL, HIEN Primary Care Unavailable LEON ., DR AGUS Katz Attending Unavailable LEON ., DR AGUS Katz Admitting Unavailable CAROL, HIEN Primary Care Unavailable GALE VASQUEZ JR Admitting Unavailable GALE VASQUEZ JR Attending Unavailable GALE VASQUEZ JR Consulting Unavailable CAROL, HIEN Primary Care Unavailable CAROL, HIEN Admitting Unavailable CAROL, HIEN Attending Unavailable CAROL, HIEN Primary Care Unavailable Gracy Medina MD Primary Care Provider Gracy Medina MD Unavailable CAROL, GRACY Primary [...] LEON Attending Unavailable Carol Gracy DESHPANDE Unavailable Unallocated MD, Noms Provider Primary Care Provi cinthya NONE, XXXX Primary Care Physician Unavailab le Link, German Watson Primary Care Physician Gracy Medina MD Primary Care Provider Gracy Medina MD Unavailable Link German BETH Unavailable Jaspreet Cortez Attending Unavailab le Jaspreet Cortez Admitting Unavailab le Carol, Gracy Primary Care Unavailable BETH GUEVARA Attending Unavailable ELTAHAWKirstie, EHAB Attending Unavailable ZANE, EH Attending Unavailable Saul Palmer Attending Unavailable Link, German Watson Attending Unavailable Link, German Watson Attending Unavailable Link, German Watson Attending Unavailable Link, German Watson Attending Unavailable Link, German Watson Attending Unavailable KRISTI STEVENS Attending Unavailabl e Link, German Watson Admitting Unavailable Link, German Watson Attending Unavailable Saul Palmer Attending Unavailable Nash Neal Attending Unavailable NONE, XXXX Referring Unavailable Vani Suarez Attending Unavailable Beth Quinones Attending Unavailable Link, German Watson Attending Unavailable Link, German Watson Attending Unavailable Link, German Watson Attending Unavailable Link, German Watson Attending Unavailable Allergies Allergy Classification Reported Allergen(s) Allergy Type Date of Onset Reaction(s) Facility (20 sources) Bacitracin; Translations: [bacitracin] Drug Allergy 4 Unknown [facility] (20 sources) Vancomycin; Translations: [vancomycin] Drug Allergy 4 Unknown [facility] (20 sources) Tape 1 Drug allergy rash [facility] Comment on above: can use paper tape (20 sources) lamoTRIgine; Translations: [LAMOTRIGINE] Drug Allergy 2 Mental Status Change, Unknown (qualifier value) [facility] (1 source) Bacitracin Drug Allergy 3 [facility] (3 sources) lamoTRIgine; Translations: [LaMICtal] Drug Allergy [facility] (1 source) Vancomycin Drug Allergy [facility] (14 sources) Clindamycin; Translations: [clindamycin] Drug Allergy 4 Unknown (qualifier value) [facility] (2 sources) Lamotrigine Allergy to substance [address] [facility] (2 sources) Wound Dressing Adhesive Drug Allergy 3 Rash [facility] (1 source) Bacitracin Drug Allergy 3 [facility] Rep[facility] (1 source) lamoTRIgine Drug Allergy 3 [facility] (1 source) Vancomycin Drug Allergy 3 [facility] (2 sources) Adhesive Tape; Translations: [Tape] Propensity to adverse reactions (disorder) [facility] Repository Medications Current Medications Medication Drug Class(es) Dates Sig (Normalized) Sig (Original) acetaminophen 500 mg oral tablet (10 sources) Start: 04-19-2021 take 2 tablets by mouth every six hours acetaminophen (TYLENOL) 500 mg tablet Take 2 tablets by mouth every 6 hours. 04/19/2021 Active Comment on above: Take [address] [facility] every 6 hours. acetaminophen 325 mg / HYDROcodone bitartrate 5 mg oral tablet (3 sources) Opioid Agonist Start: 01-01-2022 [place] 325 mg-5 mg oral tablet 1 tab(s), Oral, q6hr for pain, 12 tab(s), Refill(s) 0 Start Date: 01/01/22 Status: Ordered acetaminophen 325 mg / oxyCODONE hydrochloride 5 mg oral tablet (12 sources) Opioid Agonist Start: 02-27-2025 take 1 tablet by mouth every eight hours as needed for pain acetaminophen-oxyco done 325 mg-5 mg Tab TAKE 1 TABLET BY MOUTH EVERY 8 HOURS NEEDED FOR PAIN Start Date: 02/27/25 Status: Ordered Repeat number: 1 Start: 12-21-2023 take 1 tablet by [facility] th every six hours as needed for pain oxyCODONE-acetaminophen (Percocet) 5-325 MG tablet TAKE 1 TABLET BY MOUTH EVERY 6 HOURS NEEDED FOR PAIN FOR 7 DAYS 12/21/2023 Active Start: 11-12-2022 Percocet 5 mg- 325 mg oral tablet See Instructions, 40 tab(s), Refill(s) 0, 1-2 tab(s) Oral q4hr, [id number], 149.9, cm, 11/12/22 6:57:00 EST, Height/Length Dosing, 65.4, kg, 11/12/22 6:57:00 EST, Weight Dosing Start Date: 11/12/22 Status: Ordered Quantity: 40.0 Unit: tab(s) Repeat number: 1 albuterol 0.83 mg/ml inhalation solution (20 sources) beta2-Adrenergic Agonist Start: 06-13-2025 albut lazaro 0.083% Inh Teresita 3 mL 0.083% - 3mL dosing units, Inhalation, q4hr Wheezing, 225 mL, Refill(s) 3, [id number], 150.7, cm, 06/13/25 13:52:00 EDT, Height/Length Dosing, 60.4, kg, 06/13/25 13:55:00 EDT, Weight Dosing Start Date: 06/13/25 Status: Ordered Quantity: 225.0 Unit: mL Repeat number: 4 Start: 01-02-2024 take 2 puff(s) by in halation every six hours for wheezing albuterol HFA 90 mcg/act inhaler Indications: Chronic obstructive pulmonary disease, unspecified COPD type ([facility]/HCC) INHALE 2 PUFFS EVERY 6 HOURS IF [...] Active alendronic acid 70 mg oral tablet (12 sources) Bisphosphonate Start: 02-27-2025 alendronate 70 mg Tab 70 mg = 1 tab(s), Oral, q7day, # 12 tab(s), Refills(s) 0 Start Date: 02/27/25 Status: Ordered Quantity: 12.0 Unit: tab(s) Repeat number: 1 Start: 12-04-2023 End: 11-17-2024 alendronate (Fosamax) 70 MG tablet Indications: Other osteoporosis without current pathological fracture TAKE 1 TAB WEEKLY IN MORNING ON EMPTY STOMACH WITH FULL GLASS OF WATER.DO NOT EAT/LIE DOWN FOR 30MIN 12 tablet 11/17/2024 Active ALPRAZolam 0.5 mg oral tablet (20 sources) Benzodiazepine Start: 11-12-2022 take 1 tablet by mouth three times daily as needed for anxiety Xanax 0.5 mg Tab 0.5 mg = 1 tab(s), Oral, TID, PRN for anxiety, prn, Refills(s) 0 Start Date: 11/12/22 Status: Ordered Repeat number: 1 ALPRAZolam Activ e Comment on above: Take 0.5 mg by mouth . Amoxicillin (5 sources) Penicillin-class Antibacterial Start: 05-23-20 25 amoxicillin Amoxicillin daily as directed., Refills(s) 0 Start Date: 05/23/25 Status: Ordered Repeat number: 1 aspirin 81 mg delayed release oral tablet (1 source) Platelet Aggregation Inhibitor, Nonsteroidal Anti-inflammatory Drug Start: 11-12-19 End: 12-13-19 take 2 tablets by mouth once daily aspirin 81 mg Oral EC Tab 162 mg = 2 tab(s), Oral, Daily, X 30 day(s), # 60 tab(s), Refills(s) 0, [id number] 149.9, cm, 11/12/22 6:57:00 EST, Height/Length Dosing, 65.4, kg, 11/12/22 6:57:00 EST, Weight Dosing Start Date: 11/12/22 Stop Date: 12/12/22 Status: Ordered benzonatate 100 mg oral capsule (9 sources) Non-narcotic Antitussive Start: 02-28-20 take 2 capsules by mouth three times daily Tessalon 100 mg Cap 200 mg = 2 cap(s), Oral, TID, # 90 cap(s), Refills(s) 1, [id number], 150.7, cm, 02/27/25 10:37:00 EDT, Height/Length Dosing, 64.5, kg, 02/27/25 10:37:00 EDT, Weight Dosing Start Date: 02/27/25 Status: Ordered Quantity: 90.0 Unit: cap(s) Repeat number: 2 Indications: Fracture of one rib, unspecified side, initial encounter for closed fracture; benztropine mesylate 1 mg oral tablet (10 sources) Anticholinergic, Antihistamine Start: 04-19-20 take 1 tablet by mouth twice daily benztropine (COGENTIN) 1 mg tablet Take 1 tablet by mouth twice daily. 04/19/2021 Active Comment on above: Take 1 tablet by delmi twice daily. Symbicort (14 sources) Corticosteroid, beta2-Adrenergic Agonist Start: 11-12-19 Symbicort Inhalation, BID, Refill(s) 0 Start Date: [...] TWICE A DAY *RINSE MOUTH AFTER USE* busPIRone hydrochloride 5 mg oral tablet (10 sources) busPIRone (BUSPA R) 5 mg tablet Take 30 mg by mouth twice daily. Active Comment on above: Take 30 mg by mouth twice daily. carvedilol 25 mg oral tablet (7 sources) alpha-Adrenergic Zeeshan, beta-Adrenergic Zeeshan Start: 02-27-2025 take 1 tablet by mouth once daily carvedilol 25 mg Tab 25 mg = 1 tab(s), Oral, Daily, Refills(s) 0 Start Date: 02/27/25 Status: Ordered Repeat number: 1 Start: 02-27-2025 carvedilol 25 mg Tab = 2 tab(s), Oral, BIDWM, Refills(s) 0 Start Date: 02/27/25 Status: Ordered Repeat number: 1 Cetirizine (2 sources) Histamine-1 Receptor Antagonist Cetirizine HCl Active dicyclomine hydrochloride 20 mg oral tablet (20 sources) Anticholinergic Start: 04-22-20 End: 06-21-20 take 1 tablet by mouth four times daily dicyclomine 20 mg Tab See Instructions, TAKE 1 TABLET BY MOUTH FOUR TIMES A DAY, # 360 tab(s), Refills(s) 1, Pharmacy: [id number], 150.7, cm, 05/02/25 9:45:00 EDT, Height/Length Dosing, 64.1, kg, 05/02/25 9:45:00 EDT, Weight Dosing Start Date: 05/15/25 Status: Ordered Quantity: 360.0 Unit: tab(s) Repeat number: 1 Start: 10-13-2023 End: 10-27-2023 take 1 capsule by mouth four times daily Bentyl 10 mg Cap 10 mg = 1 cap(s), Oral, QID, X 14 day(s), # 56 cap(s), Refills(s) 0, Pharmacy: [id number], 150, cm, 10/13/23 15:54:00 EST, Height/Length Dosing, 60, kg, 10/13/23 15:54:00 EST, Weight Dosing Start Date: 10/13/23 Stop Date: 10/27/23 Status: Ordered Start: 11-11-2012 dicyclomine (B ENTYL) 20 mg tablet Take 20 mg by mouth. 0 11/11/2012 Active Start: 11-11-2012 End: 04-10-2025 take 1 tablet by mouth four times daily dicyclomine 20 mg Tab 20 mg = 1 tab(s), Oral, QID, X 14 day(s), # 56 tab(s), Refills(s) 2, Pharmacy: [id number], 150.7, cm, 02/27/25 10:37:00 EDT, Height/Length Dosing, 64.5, kg, 02/27/25 10:37:00 EDT, Weight Dosing Start Date: 02/27/25 Stop Date: 04/10/25 Status: Ordered Quantity: 56.0 Unit: tab(s) Repeat number: 3 Comment on above: Take 20 mg by mouth. docusate sodium 100 mg oral capsule (18 sources) Start: 2020 take 1 capsule by mouth twice daily docusate sodium (COLACE) 100 mg capsule Take 1 capsule by mouth twice daily. 14 capsule 04/19/2021 Active Comment on above: Take [address] [facility] twice daily. dronabinol 5 mg oral capsule (2 sources) Cannabinoid Start: 2019 take 1 capsule by mouth every twelve hours Dronabinol 5 MG 1 CAPSULE Orally bid for 30 day(s) January, Active gabapentin 100 mg oral capsule (10 sources) Anti-epileptic Agent take 1 capsule by mouth three times daily gabapentin (NEURONTIN) 100 mg capsule Take 100 mg by mouth three times daily. Active Comment on above: Take 100 mg by mouth three times daily. hydroCHLOROthiazide 25 mg oral tablet (2 sources) Thiazide Diuretic Start: 2024 take 1 tablet by mouth once daily hydrochlorothiazide 25 mg Tab 25 mg = 1 tab(s), Oral, Daily, # 30 tab(s), Refills(s) 0, Pharmacy: [id number], 150.7, cm, 05/23/25 11:21:00 EDT, Height/Length Dosing, 63.9, kg, 05/23/25 11:21:00 EDT, Weight Dosing Start Date: 06/05/25 Status: Ordered Quantity: 30.0 Unit: tab(s) Repeat number: 1 ibuprofen 600 mg oral tablet (8 sources) Nonsteroidal Anti-inflammatory Drug Start: 2022 take 1 tablet by mouth every eight hours as needed for pain ibuprofen 600 mg Tab 600 mg = 1 tab(s), Oral, q8hr, PRN as needed for pain, with food or milk, # 50 tab(s), Refills(s) 0, [id number] 149.9, cm, 11/12/22 6:57:00 EST, Height/Length Dosing, 65.4, kg, 11/12/22 6:57:00 EST, Weight Dosing Start Date: 11/12/22 Status: Ordered Quantity: 50.0 Unit: tab(s) Repeat number: 1 Lactulose (11 sources) Osmotic Laxative Start: 2012 lactulose 10 g/15 mL Oral Syrup 20 [...] Print Requisition Start Date: 11/11/12 Status: Ordered lidocaine 0.05 mg/mg medicated patch (2 sources) Antiarrhythmic, Amide Local Anesthetic Start: 04-22-2025 lidocaine Top 5% juan carlos m Patch 1 patch(es), Topical, Daily, 30 patch(es), Refill(s) 5, apply 12 hours on and 12 hours off daily, [id number], 150.7, cm, 04/22/25 9:14:00 EDT, Height/Length Dosing, 64.7, kg, 04/22/25 9:14:00 EDT, Weight Dosing Start Date: 04/22/25 Status: Ordered Quantity: 30.0 Unit: patch(es) Repeat number: 6 Indications: Other forms of scoliosis, thoracic region; Primary osteoarthritis, right shoulder; Start: 03-30-2023 End: 03-30-2023 lidocaine (PF) 10 mg/mL (1 % ) 4 mL injection (XYLOCAINE) linaclotide 0.145 mg oral capsule (10 sources) Guanylate Cyclase-C Agonist Start: 09-15-2020 LINZESS 145 mcg capsule TAKE 1 CAPSULE DAILY AT LEAST 30 MINUTES BEFORE THE FIRST MEAL OF THE DAY ON AN EMPTY STOMACH 09/15/2020 Active Comment on above: TAKE 1 CAPSULE DAILY AT LEAST 30 MINUTES BEFORE THE FIRST MEAL OF THE DAY ON AN EMPTY STOMACH lisinopril 5 mg oral tablet (1 source) Angiotensin Converting Enzyme Inhibitor Start: 11-24-2023 End: 11-23-2024 take 1 tablet by mouth in the morning lisinopril 5 MG tablet Take 5 mg by mouth in the morning. 11/24/2023 11/23/2024 Active losartan potassium 25 mg oral tablet (6 sources) Angiotensin 2 Receptor Zeeshan Start: 02-27-2025 take 1 tablet by mouth once daily losartan 25 mg Tab 25 mg = 1 tab(s), Oral, Daily, # 90 tab(s), Refills(s) 0 Start Date: 02/27/25 Status: Ordered Quantity: 90.0 Unit: tab(s) Repeat number: 1 magnesium hydroxide 80 mg/ml oral suspension (11 sources) Start: 11-11-2012 take 30 mL by mouth twice daily magnesium hydroxide (MOM) 400 mg/5 mL suspension Take 30 mL by mouth twice daily. 04/19/2021 Active Comment on above: Take 30 mL by mouth twice daily. methocarbamol 750 mg oral tablet (5 sources) [...] EVERY DAY FOR 90 DAYS 07/14/2022 Active take 1 tablet by delmi [...] day(s), # 20 tab(s), Refills(s) 0, Pharmacy: [facility]/pharmacy #[id number], 149, cm, 02/02/25 18:37:00 EDT, Height/Length Dosing, 65, kg, 02/02/25 18:37:00 EDT, Weight Dosing Start Date: 02/02/25 Stop Date: 02/12/25 Status: Ordered Quantity: 20.0 Unit: tab(s) Repeat number: 1 omeprazole 40 mg delayed release oral capsule (20 sources) Proton Pump Inhibitor Start: 02-27-2025 take 1 capsule by mouth once daily omeprazole 40 mg Cap-DR 40 mg = 1 cap(s), Oral, Daily, 30 minutes prior to food or any other medication., # 90 cap(s), Refills(s) 3, Pharmacy: [facility]/pharmacy #[id number], 150.7, cm, 02/27/25 10:37:00 EDT, Height/Length Dosing, 64.5, kg, 02/27/25 10:37:00 EDT, Weight Dosing Start Date: 02/27/25 Status: Ordered Quantity: 90.0 Unit: cap(s) Repeat number: 4 Start: 11-11-[address] [facility] once daily Prilosec 40 mg Cap-EC = 1 cap(s), Oral, Daily, # 30 cap(s), Refills(s) 0 Start Date: 11/11/12 Status: Ordered Quantity: 30.0 Unit: cap(s) Repeat number: 1 take 40 mg by mouth once daily O MEPRAZOLE (PRILOSEC ORAL) Take 40 mg by mouth once daily. Active Comment on above: Take 40 mg by mouth once daily. OXcarbazepine 600 mg oral tablet (10 sources) Anti-epileptic Agent take 1 tablet by mouth twice daily OXcarbazepine (TRILEPTAL) 600 mg tablet Take 600 mg by mouth twice daily. Active Comment on above: Take 600 mg by mouth twice daily. pantoprazole 40 mg delayed release oral tablet (15 sources) Proton Pump Inhibitor Start: 3 take 1 tablet by mouth once daily pantoprazole (ProtoNix) 40 MG EC tablet Indications: Gastro-esophageal reflux disease without esophagitis TAKE 1 TABLET BY MOUTH EVERY DAY 90 tablet 3 09/11/2023 Active Start: 11-12-2022 take [address] [facility] once daily Protonix 20 mg Tab-DR 40 mg = 2 tab(s), Oral, Daily, Refills(s) 0 Start Date: 11/12/22 Status: Ordered Repeat number: 1 Start: 11-12-2022 take 1 tablet by [facility] once daily Protonix 20 mg Tab-DR 20 mg = 1 tab(s), Oral, Daily, Refills(s) 0 Start Date: 11/12/22 Status: Ordered Repeat number: 1 Start: 09-08-2016 take 1 tablet by [facility] every twenty-four hours Pantoprazole Sodium 40 mg 1 tablet Orally Once a day for 30 days Aug, Active plecanatide 3 mg oral tablet (10 sources) plecanatide (TRULANCE) 3 mg tab Take by mouth. Active Comment on above: Take by mouth. predniSONE 50 mg oral tablet (1 source) [...] by mouth at bedtime 11/27/2023 Active Start: 11-12-2022 take 50 mg by mouth at bedtime Seroquel 50 mg, Oral, Bedtime, Refills(s) 0 Start Date: [...] daily at 6AM and 9PM. 04/19/2021 Active take 1 tablet by delmi th every twenty-four hours SEROquel 100 MG 1 tablet at bedtime Orally Once a day Active Comment on above: Take 1 tablet by [facility] th twice daily at 6AM and 9PM. varenicline 1 mg oral tablet (10 sources) Partial Cholinergic Nicotinic Agonist take 1 tablet by mouth twice daily varenicline (CHANTIX) 1 mg tablet Take 1 mg by mouth twice daily. Active Comment on above: Take 1 mg by mouth t wice daily. Ventolin HFA 90 mcg/inh Aerosol-Adpt (9 sources) Start: 02-28-20 take 2 puff(s) by inhalation four times daily for wheezing Ventolin HFA 90 mcg/inh Aerosol-Adpt 2 puff(s), Inhalation, QID for wheezing, 18 gram, Refill(s) 5, [id number], 150.7, cm, 02/27/25 10:37:00 EDT, Height/Length Dosing, 64.5, kg, 02/27/25 10:37:00 EDT, Weight Dosing Start Date: 02/27/25 Status: Ordered Quantity: 18.0 Unit: g Repeat number: 6 Completed/Discontinued Medications Medication Drug Class(es) Dates Sig (Normalized) Sig (Original) atenolol 25 mg oral tablet (2 sources) beta-Adrenergic Zeeshan Start: 06-10-2025 take 0.5 tablet by mouth twice daily atenolol 25 mg Tab 25 mg = 1 tab(s), Oral, Daily, Split tab and take 0.5 tab BID, # 30 tab(s), Refills(s) 0, Pharmacy: [facility]/pharmacy #[id number], 150.7, cm, 06/10/25 16:56:00 EDT, Height/Length Dosing, 60, kg, 06/10/25 16:56:00 EDT, Weight Dosing Start Date: 06/10/25 Status: Ordered Quantity: 30.0 Unit: tab(s) Repeat number: 1 1 ml triamcinolone acetonide 40 mg/ml injection (1 source) Corticosteroid Start: 03-30-2023 End: 03-30-2023 triamcinolone acetonide 40 mg injection (KeNALog 40) Start: 03-30-2023 End: 03-30-2023 triamcinolone acetonide 40 m g injection (KeNALog 40) Problems Active Problems Problem Classification Problem Date Documented Date Episodic/Chronic Adjustment disorders (2 sources) Family tension; Translations: [Reaction to severe stress, unspecified] Onset: 3 02-13-2023 Chronic Anxiety disorders (20 sources) Posttraumatic stress disorder; Translations: [Mixed anxiety and depressive disorder] Onset: 3 05-14-2019 Chronic Asthma (20 sources) Asthma; Translations: [Unspecified asthma, uncomplicated] Onset: 3 11-11-2012 Chronic Bacterial infection; unspecified site (20 sources) Staphylococcal infectious disease 05-14-2019 Episodic Cardiac dysrhythmias (2 sources) Supraventricular tachycardia; Translations: [SVT (supraventricular tachycardia)] Onset: 2 02-23-2023 Chronic Cardiac dysrhythmias (8 sources) Tachycardia; Translations: [Tachycardia, unspecified] Onset: 2 02-13-2023 Episodic Chronic obstructive pulmonary disease and bronchiectasis (2 sources) Chronic obstructive lung disease; Translations: [Chronic obstructive pulmonary disease, unspecified] Onset: 3 05-02-2023 Chronic Endometriosis (20 sources) Endometriosis (clinical) 12-06-2013 Chronic Esophageal disorders (20 sources) Gastroesophageal reflux disease; Translations: [Peptic stricture of esophagus] Onset: 2 11-11-2012 Chronic Essential hypertension (19 sources) Hypertensive disorder; Translations: [Essential hypertension] Onset: [...] heart failure] Onset: 5 Chronic Intestinal infection (6 sources) Clostridial enteric disease; Translations: [Enterocolitis due to Clostridium difficile, not specified as recurrent] Onset: 5 Episodic Menopausal disorders (1 source) Primary ovarian failure; Translations: [Other primary ovarian failure] Onset: 5 Chronic Mood disorders (20 sources) Bipolar I disorder; Translations: [Major depression, single episode] Onset: 3 05-14-2019 Chronic Nausea and vomiting (2 sources) Nausea; Translations: [Nausea] Episodic Osteoarthritis (11 sources) Localized, primary osteoarthritis of the shoulder region; Translations: [Primary osteoarthritis, right shoulder] Onset: 5 Chronic Osteoporosis (2 sources) Osteoporosis; Translations: [Age-related osteoporosis without current pathological fracture] Chronic Other acquired deformities (17 sources) Scoliosis deformity of spine; Translations: [Scoliosis, unspecified] Onset: 3 05-14-2019 Chronic Other acquired deformities (13 sources) Scoliosis of thoracic spine; Translations: [Other forms of scoliosis, thoracic region] Onset: 5 Chronic Other bone disease and musculoskeletal deformities (5 sources) Aseptic necrosis of head of humerus; 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] Onset: 3 Chronic Other bone disease and musculoskeletal deformities (1 source) Idiopathic aseptic necrosis of right humerus; 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)] Onset: 3 Chronic Other bone disease and musculoskeletal deformities (3 sources) Avascular necrosis of the head of [...] sources) Gastroparesis syndrome; Translations: [Gastroparesis] Episodic Other fractures (1 source) Closed fracture of one rib; Translations: [Fracture of one rib, unspecified side, initial encounter for closed fracture] Onset: 5 Episodic Other gastrointestinal disorders (2 sources) Irritable bowel syndrome characterized by constipation; Translations: [Irritable bowel syndrome with constipation] Chronic Other gastrointestinal disorders (2 sources) Irritable bowel syndrome with diarrhea; Translations: [Irritable bowel syndrome with diarrhea] Chronic Other gastrointestinal disorders (1 source) Irritable bowel syndrome with diarrhea Onset: 2 Resolved: 2 Chronic Other gastrointestinal disorders (12 sources) Irritable bowel syndrome 10-13-2023 Chronic Other gastrointestinal disorders (3 sources) Constipation; Translations: [Constipation, unspecified] 12-21-2024 Episodic Other gastrointestinal disorders (2 sources) Heartburn; Translations: [Heartburn] Episodic Other gastrointestinal disorders (3 sources) Diarrhea; Translations: [Diarrhea, unspecified] Onset: 5 Episodic Other gastrointestinal disorders (2 sources) Esophageal [...] Loss of appetite; Translations: [Anorexia] Episodic Other nutritional; endocrine; and metabolic disorders (10 sources) Overweight in adulthood with body mass index of 25 or more but less than 30; Translations: [Body mass index (BMI) 28.0-28.9, adult] Onset: 5 Episodic Other nutritional; endocrine; and metabolic disorders (2 sources) Overweight; Translations: [Overweight] Onset: 5 Episodic Other screening for suspected conditions (not mental disorders or infectious disease) (5 sources) Abnormal findings on diagnostic imaging of heart and coronary circulation; Translations: [Encounter for screening mammogram for malignant neoplasm of breast] Onset: 5 Episodic Peripheral and visceral atherosclerosis (3 sources) Peripheral vascular disease, unspecified; Translations: [Peripheral vascular disease, unspecified] Onset: 3 Chronic Residual codes; unclassified (2 sources) Pain; Translations: [Pain, unspecified] Episodic Residual codes; unclassified (1 source) Pain, unspecified; Translations: [Pain] Onset: 3 Episodic Residual codes; unclassified (1 source) Sleep disorder; Translations: [Sleep disorder, unspecified] Onset: 5 Episodic Spondylosis; intervertebral disc disorders; other back problems (4 sources) Sciatica; Translations: [Sciatica, unspecified side] Onset: 4 02-23-2023 Episodic Substance-related disorders (20 sources) Smoker; Translations: [Nicotine dependence] Onset: 1 01-01-2022 Chronic Comment on above: Added secondary to d ocumentation in Social History. Superficial injury; contusion (2 sources) Contusion of left lesser toe; Translations: [Contusion of left lesser toe(s) without damage to nail, initial encounter] Onset: 4 Episodic Past or Other Problems Problem Classification Problem Date Documented Da te Episodic/Chronic Abdominal hernia (12 sources) Incisional hernia; Translations: [Incisional hernia without obstruction or gangrene] Onset: 10-14-2021 Episodic Abdominal pain (20 sources) Upper abdominal pain; Translations: [Upper abdominal pain, unspecified] Onset: 04-16-2021 Resolved: 05-04-2022 Episodic Allergic reactions (4 sources) Environmental allergy; [...] 08-02-2022 Episodic Other aftercare (1 source) Other skilled nursing (current) drug therapy; Translations: [[employer] CURRENT DRUG THERAPY] Onset: 11-17-2022 Episodic Other [...] Onset: 02-13-2023 02-13-2023 Episodic Residual codes; unclassified (10 sources) Postoperative state; Translations: [Other specified postprocedural states] Onset: 04-19-2021 04-19-2021 Episodic Residual codes; unclassified (2 sources) Acquired absence of cervix and uterus; Translations: [Acquired absence of both cervix and uterus] Onset: 03-08-2019 02-23-2023 Episodic Residual codes; unclassified (2 sources) Inadequate sleep hygiene; Translations: [Inadequate sleep hygiene] Onset: 10-28-2022 02-23-2023 Episodic Skin and subcutaneous tissue infections (10 sources) Cellulitis; Translations: [Cellulitis, unspecified] Onset: 11-13-2015 11-13-2015 Episodic Sprains and strains (2 sources) Sprain of foot; Translations: [Unspecified sprain of unspecified foot, initial encounter] Onset: 03-22-2022 Episodic Results Test Name Value Interpretation Reference Range Facility Family Medicine Office/Clini c Noteon 06-10-2025 Family Medicine Office/Clinic Note Family Medicine Office/Clinic Note Chief Complaint ER Follow Up HPI Staff Patient here for ER f/u ER followup: [place] [facility] [place] date: 06/05 Symptoms the patient presented with: bilateral arm tingling, chest pressure and SOB - Cardiac screening, imaging and labs completed. Ativan given during stay. Patient advised to f/u with PCP and Psychiatrist. Patient has an appointment with Psychiatrist next month and wanted providers opinion on if she should schedule sooner. Current concerns: Patient is concerned why Xanax isn't working as well anymore. Patient is also concerned with blood pressure medication, noting it makes her feel off . Patient would like to also discuss inpatient stay. She is concerned with the new diagnosis of sleep apnea and the thought of being on a machine while she sleeps. Phq9: 23 NNEKA: 19 AMW: UTD Julienne: Ordered Dexa: Ordered Pap: Hx Hysterectomy [place]: per patient 2022, [facility] [place] History of Present Illness Patient presents today for hospital followup. [place] location[place] [facility] [place] Admission Date: 06/05/2025 Discharge Date: 06/05/2025 Reviewed Records: ER summary Summary: Patient presented for increased anxiety. She had a sleep study 2 days prior to the presentation, and she was noted to have sleep apnea. However, she did not sleep well at the sleep study or after this. She is nervous about living alone, and she was not taking her Seroquel. She did have a friend sleep the night prior to presentation and this seemed to do well. She is taking HCTZ as recommended today. She took Xanax BID for anxiety prior to visit to the ER. Workup in the ER showed that EKG was negative. Following Ativan she did have some improvement in symptoms, did develop a headache. She was given Tylenol, Reglan/Benadryl for management, did well with this. Labs were negative. CXR and preliminary head CT was clear. She was determined to be clear for discharge home, recommended followup to discuss findings with PCP on anxiety. Today, patient states that she is very anxious. She is worried about the CPAP machine, she gets claustrophobia with this. She states that she is very anxious. She would like to discuss the medications she is taking today. Review of Systems PHQ Score Initial Depression Screen Score: 6 SCORE ROS - Provider Constitutional: no fever, no chills Skin: no rash, no lesions ENMT: no ear pain, no sore throat, no congestion, no hoarseness. Respiratory: no shortness of breath, no cough, no wheezing. Cardiovascular: no chest pain, no palpitations, no edema. Gastrointestinal: no nausea, no vomiting, no diarrhea, Musculoskeletal: yes back pain, no trauma, yes neck pain, yes back pain Neurologic: no headache, no dizziness, no numbness, no weakness. Psychiatric: yes sleeping problems, no irritability, yes mood swings/depression. Physical Exam Vitals & Measurements HR: 68(Peripheral) RR: 18 BP: 152/80 SpO2: 99% HT: 59 in HT: 150.7 cm WT: 132.277 lb WT: 60 kg BMI: 26.42 General: Well developed, well nourished, in no acute distress Head: Normocephalic/atraumat ic Eyes: Pupils equal, round, and reactive to light. Sclerae normal, and extraocular movements intact Lungs: Normal respiratory effort and clear to auscultation Cardio: Regular rate and rhythm, normal S1 and S2, no murmur, no rub Musculoskeletal: No deformity or scoliosis noted. Normal range of motion. Joints normal. No erythema, edema, effusion, or ecchymosis Extremity: No clubbing, cyanosis, edema, or deformity, with normal ROM in both upper and lower bilateral extremities Neurologic: Grossly normal Skin: No rash, petechiae, suspicious lesions Mental Status: Alert and oriented x3. Normal mood and affect Assessment/Plan 1. Generalized anxiety disorder with panic attacks (F41.1: Generalized anxiety disorder) Patient is managed by Dr. Bah. Will defer to psychiatrist for management. We discussed her particular concerns today and alleviated a few of her anxieties. We'll see her back as scheduled later this week. Call with any acute changes. 2. Panic disorder [episodic paroxysmal anxiety] (F41.0: Panic disorder [episodic paroxysmal anxiety]) As per #1. 3. Hypertension (I10: Essential (primary) hypertension) Well controlled at intake, no acute concerns. Continue current medications, recheck at followup. She is worried about the Coreg interfering with her albuterol. We'll cover her today with Atenolol instead, check later this week on findings with this new medication. 4. Smoker (F17.200: Nicotine dependence, unspecified, uncomplicated) We strongly recommend to quit tobacco use. Cigarette smoking harms nearly every organ of the body, causes many diseases, and reduces the health of smokers in general. Quitting smoking lowers your risk for smoking-related diseases and can add years to your life. We encourage you to visit www.smokefree.gov access to helpful resources including free telephone support. If you decide on prescription treatment to help you quit, w (more content not included)... Normal [facility] Comment on above: Result Comment: Elec tronically Signed By: German Sheehan DO\.nasir\Date and Time Signed: 06/10/25 17:28 EDT ED Note-Physicianon 06-08-20 ED Note-Physician ED Note-Physician Basic Information Time Seen: Ashley JAUREGUI, Rosemarie Ayala 06/05/2025 20:04 Chief Complaint pt arrives for c/o HTN for a couple of days and her PCP has been changing her medications. pt states she has had bilateral arm tingling chest pressure and SOB. states she has hx of anxiety and has taken her daily amount of medications History of Present Illness Patient is a 49-year-old female with a history of anxiety, hypertension, asthma, and smoking who presents to the ED with concerns for increased anxiety. Patient states she underwent a sleep study 2 days ago due to concerns for obstructive sleep apnea. She notes since then she has had increased anxiety and has not slept well. Patient states she lives alone and is consistently nervous about this. Patient notes she is on Seroquel but does not like to take it at night because she is concerned that she will not wake up if something were to happen to her house. Patient notes she did have a friend sleep with her last night which did seem to help. She notes that she takes Coreg twice daily and had hydrochlorothiazide added today which she took for the first time. Patient states she has noted that her blood pressure has been particularly elevated throughout the past 2 to 3 days. She notes today she did wake up from a nap with bilateral hand tingling, chest pressure, and mild shortness of breath. Patient states she does take Xanax as needed for anxiety and has taken it twice today, however she states she believes she is becoming used to it as she has been on it for numerous years. Patient states she does see a psychiatrist as well. She is denying any changes in vision, unilateral weakness, cough, fevers, suicidal/homicidal ideation, or hallucinations. Review of Systems A 10 point review of systems is negative except as noted above. Medical and Surgical History: Reviewed and noted Social history: Lives at home Family History: Reviewed. Tobacco: Use Physical Exam Vitals & Measurements T: 36.7 ???C(Oral) HR: 71(Monitored) RR: 16 BP: 105/71 SpO2: 92% HT: 150.7 cm WT: 62 kg BMI: 27.3 General: The patient appears well and in no apparent distress. Patient is resting comfortably on cart. Skin: Warm, dry, no pallor noted. Head: Normocephalic, atraumatic Neck: No JVD Eye: PERRLA, EOMI. visual field intact bilaterally. No horizontal nystagmus. ENT: Moist mucus membranes Cardiovascular: Regular rate normal peripheral perfusion Respiratory: Mild diffuse expiratory wheeze in all lung grant bilaterally. No respiratory distress no accessory muscle use Chest Wall: no deformity Musculoskeletal: normal ROM, no deformity, no swelling GI: Soft no obvious distention. No rebound or rigidity. No guarding. No tenderness. Neurological: A&O moves all extremities equal strength and symmetry. No facial palsy. No limb ataxia. No motor drift. No aphasia. No dysarthria. Sensation equal bilaterally. NIH 0. Psychiatric: Cooperative. Tearful. Anxious. Procedure Heart Score for Major Cardiac Event History: Example factors for history - pattern of chest pain, onset, duration, relation with exercise, stress or cold, localization, concomitant symptoms. reaction to sublingual nitrates, [] Highly suspicious +2 [] Moderately suspicious +1 [X] Slightly suspicious 0 EKG: [] Significant ST-Depression +2 [X] Non specific repolarization disturbance +1 [] Normal 0 Age: [] >= 65 +2 [X] 45-65 + 1 [] <45 0 Risk Factors: (HLD, HTN, DM, Cigarette Smoking, Pos Family Hx, Obesity) [] >3 risk factors or hx of atherosclerotic disease + 2 [X] 1-2 risk factors + 1 [] No risk factors known 0 Troponin: [] >= 3X normal + 2 [] 1-3X normal + 1 [X] <= Normal 0 [X] 0-3 Points 0.9 - 1.7% risk of major adverse cardiac event in 6 weeks [] 4-6 Points 12-16.6% risk of major adverse cardiac event in 6 weeks [] 7-10 Points 50-65% risk of major adverse cardiac event in 6 weeks [X] 0-3 Points with 2 sets of negative cardiac markers <1% risk of major adverse cardiac event in 30 days. Medical Decision Making Patient is a 49-year-old female with a history of anxiety, hypertension, asthma, and smoking who presents to the ED with concerns for increased anxiety. Patient is hemodynamically stable and afebrile. Patient is extremely anxious and tearful on exam. Patient is denying any suicidal/homicidal ideation or hallucinations. Patient does note diffuse chest pressure, shortness of breath, and bilateral hand paresthesia that began today around 1500. There are no focal neurological deficits. Patient is given Ativan. EKG shows sinus rhythm with sinus arrhythmia without ischemic changes. Following the Ativan patient did note improvement of the anxiety, however she states that she did develop a headache. Patient was given Tylenol, Reglan, and (more content not included)... Normal [facility] Comment on above: Result Comment: Elec tronically Signed By: Rosemarie Ramirez PA-C\.br\Date and Time Signed: 06/05/25 23:45 EDT\.br\Electronically Co-Signed By: Saul Palmer DO\.br\Date and Time Co-Signed: 06/08/25 07:[address] Head or Brain w/o Contras ton 06-06-2025 CT Head or Brain w/o Contrast Exam Date/Time: 06/05/2025 21:02 EDT Reason for Exam: Headache Report Impression: No acute intracranial process. CT Brain. Contrast medium: without contrast.. History: HTN for a couple of days and her PCP has been changing her medications. Pt states she has had bilateral arm tingling chest pressure and SOB. Hx pastic sx to forehead. Technical factors: CT imaging of the brain was obtained and formatted as 5 mm contiguous axial images. 2.5 mm contiguous axial images were obtained through the osseous structures. Sagittal and coronal reconstruction obtained during postprocessing. Comparison: 11/19/2019. Findings: Extra-axial spaces: Normal. Intracranial hemorrhage: None. Ventricular system: Without anomaly. Basal Cisterns: Normal. Cerebral Parenchyma: Without anomaly. Midline Shift: None. Cerebellum: Normal. Paranasal sinuses and mastoid air cells: Normal. Visualized Orbits: Normal. All CT scans at this facility use dose modulation, iterative reconstruction, and/or weight based dosing when appropriate to reduce radiation dose to as low as reasonably achievable. Report Technical Comments: Ordering Provider: Rosemarie Ramirez FINAL REPORT Dictated: 06/06/2025 9:26 am James Trevino MD Signed (Electronic Signature): 06/06/2025 9:26 am Signed by: James Trevino MD Transcribed by: CARISA Technologist: PRECIOUS Normal [facility] XR Chest Single Viewon 06-06 XR Chest Single View Exam Date/Time: 06/05/2025 21:03 EDT Reason for Exam: Cough Report IMPRESSION: NO ACUTE CARDIOPULMONARY DISEASE CLINICAL HISTORY: Cough COMPARISON: 02/02/2025. FINDINGS: Bilateral thoracic Mccarthy rods unchanged. Cardiopericardial silhouette normal. Pulmonary vasculature normal. Lungs clear. Technical Comments: Ka,r in mGy = na DAP = na Ordering Provider: Rosemarie Ramirez FINAL REPORT Dictated: 06/06/2025 10:27 am James Trevino MD Signed (Electronic Signature): 06/06/2025 10:27 am Signed by: James Trevino MD Transcribed by: CARISA Technologist: POPEYE Normal [facility] BMPon 06-05-2025 Anion gap [Moles/Vol] 13 mmol/L Normal 6-16 [facility] Comment on above: Performed By: #### 2 [id number] #### [facility] [address] [place] [address] BUN/Creat Ratio 10 No Units Normal 10-20 [facility] Comment on above: Performed By: #### 2 [id number] #### [facility] [address] [place] [address] Calcium [Mass/Vol] 9.6 mg/dL Normal 8.9-11.1 [facility] Comment on above: Performed By: #### 2 [id number] #### [facility] [address] [place] [address] Chloride [Moles/Vol] 99 mmol/L Low 101-111 [facility] Comment on above: Performed By: #### 2 [id number] #### [facility] [address] [place] [address] CO2 [Moles/Vol] 25 mmol/L Normal 21-31 [facility] Comment on above: Performed By: #### 2 [id number] #### [facility] [address] [place] [address] Creatinine [Mass/Vol] 0.8 mg/dL Normal 0.5-1.3 [facility] Comment on above: Performed By: #### 2 [id number] #### [facility] [address] [place] [address] Glucose [Mass/Vol] 106 mg/dL Normal 55-199 [facility] Comment on above: Performed By: #### 2 [id number] #### [facility] [address] [place] [address] Potassium [Moles/Vol] 3.5 mmol/L Normal 3.5-5.3 [facility] Comment on above: Performed By: #### 2 [id number] #### [facility] [address] [place] [address] Sodium [Moles/Vol] 133 mmol/L Low 135-145 [facility] Comment on above: Performed By: #### 2 [id number] #### [facility] [address] [place] [address] Urea nitrogen [Mass/Vol] 8 mg/dL Normal 5-21 [facility] Comment on above: Performed By: #### 2 [id number] #### [facility] [address] [place] [address] CBC w/ Auto Diffon 5 Anisocytosis Ql (Bld) PRESENT Invalid Interpretation Code [facility] Comment on above: Performed By: #### 2 [id number] #### [facility] [address] [place] [address] Basophil Absolute 0.1 E9/L Normal 0.0-0.2 [facility] Comment on above: Performed By: #### 2 [id number] #### [facility] [address] [place] [address] Basophils/100 WBC (Bld) 0.9 % Normal 0.0-2.0 [facility] Comment on above: Performed By: #### 2 [id number] #### [facility] [address] [place] [address] Eos Absolute 0.0 E9/L Normal 0.0-0.5 [facility] Comment on above: Performed By: #### 2 [id number] #### [facility] [address] [place] [address] Eosinophils/100 WBC (Bld) 0.5 % Normal 0.0-8.0 [facility] Comment on above: Performed By: #### 2 [id number] #### [facility] [address] [place] [address] Lymph Absolute 3.1 E9/L Normal 1.0-4.0 [facility] Comment on above: Performed By: #### 2 [id number] #### [facility] [address] [place] [address] Lymphocytes/100 WBC (Bld) 43.8 % Normal 14.0-50.0 [facility] Comment on above: Performed By: #### 2 [id number] #### [facility] [address] [place] [address] Microcyte PRESENT Invalid Interpretation Code [facility] Comment on above: Performed By: #### 2 [id number] #### [facility] [address] [place] [address] [place] Absolute 0.6 E9/L Normal 0.2-1.0 [facility] Comment on above: Performed By: #### 2 [id number] #### [facility] [address] [place] [address] Monocytes/100 WBC (Bld) 9.0 % Normal 4.0-14.0 [facility] Comment on above: Performed By: #### 2 [id number] #### [facility] [address] [place] [address] Neutro Absolute 3.3 E9/L Normal 2.0-7.5 [facility] Comment on above: Performed By: #### 2 [id number] #### [facility] [address] [place] [address] Neutro Auto 45.8 % Normal 36.0-75.0 [facility] Comment on above: Performed By: #### 2 [id number] #### [facility] [address] [place] [address] RBC morphology finding Nom (Bld) SEE MORPHOLOGY Invalid Interpretation Code [facility] Comment on above: Performed By: #### 2 [id number] #### [facility] [address] [place] [address] Erythrocyte distribution width (RBC) [Ratio] 15.3 % High 10.9-14.2 [facility] Comment on above: Performed By: #### 2 [id number] #### [facility] [address] [place] [address] Hematocrit (Bld) [Volume fraction] 43.9 % Normal 34.0-46.0 [facility] Comment on above: Performed By: #### 2 [id number] #### [facility] [address] [place] [address] Hemoglobin (Bld) [Mass/Vol] 15.3 g/dL Normal 12.0-16.0 [facility] Comment on above: Performed By: #### 2 [id number] #### [facility] [address] [place] [address] MCH (RBC) [Entitic mass] 36.1 pg High 27.0-34.0 [facility] Comment on above: Performed By: #### 2 [id number] #### [facility] [address] [place] [address] MCHC (RBC) [Mass/Vol] 34.9 g/dL Normal 31.4-36.0 [facility] Comment on above: Performed By: #### 2 [id number] #### [facility] [address] [place] [address] MCV (RBC) [Entitic vol] 103.4 fL High 80.0-100.0 [facility] Comment on above: Performed By: #### 2 [id number] #### [facility] [address] [place] [address] Platelet 324.0 E9/L Normal 150.0-500.0 [facility] Comment on above: Performed By: #### 2 [id number] #### [facility] [address] [place] [address] Platelet mean volume (Bld) [Entitic vol] 6.8 fL Normal 6.4-10.8 [facility] Comment on above: Performed By: #### 2 [id number] #### [facility] [address] [place] [address] RBC 4.3 E12/L Normal 4.3-5.9 [facility] Comment on above: Performed By: #### 2 [id number] #### [facility] [address] [place] [address] WBC 7.1 E9/L Normal 4.0-11.0 [facility] Comment on above: Performed By: #### 2 [id number] #### [facility] [address] [place] [address] ED Clinical Summaryon 2024 ED Clinical Summary ED Clinical Summary [address] [address] ED Clinical Summary Person Information Name: NATHANIEL MARCIAL Kenyatta/[facility] Age: 49 Years : 1975 Sex: Female Language: Zambian PCP: German Sheehan DO Marital Status: Phone: [phone] Visit Id: Visit Reason: Chest pressure - Adult; Medical problem - minor; Hypertension; Anxiety; HYPERTENSION, LEFT HAND NUMBNESS, TINGLING, SLURRED SPEECH Speciality: Acuity: 2 Enc Type: Emergency Med Service: Emergency Arrival: 06/05/2025 19:50:49 Discharge: 06/05/2025 23:56:19 LOS: 000 04:06 Checkin: 06/05/2025 19:50:49 Checkout: 06/05/2025 23:56:19 Dispo Type: Home (Routine DC) EVENTS: Event Name Event Status Request Date/Time Start Date/Time Complete Date/Time Arrive Complete 06/05/2025 19:50:49 06/05/2025 19:50:49 06/05/2025 19:50:49 Document Home Meds Request 06/05/2025 19:50:49 Triage Complete 06/05/2025 19:50:49 06/05/2025 19:57:35 06/05/2025 19:57:35 Bed Assign Complete 06/05/2025 19:51:23 06/05/2025 19:51:23 06/05/2025 19:51:23 Dr Exam Complete 06/05/2025 19:51:23 06/05/2025 20:04:11 06/05/2025 20:04:11 RN Exam Complete 06/05/2025 19:51:23 06/05/2025 20:18:03 06/05/2025 20:18:03 EKG Complete 06/05/2025 19:56:12 06/05/2025 20:05:55 Isolation Screening Request 06/05/2025 19:57:35 Pending Labs Complete 06/05/2025 19:58:25 06/05/2025 21:03:54 Lab Complete 06/05/2025 19:58:25 06/05/2025 21:03:54 Registration Complete 06/05/2025 20:04:11 06/05/2025 20:07:33 06/05/2025 20:07:33 Reg Complete Request 06/05/2025 20:07:33 Reg Bed Request Complete 06/05/2025 20:07:33 06/05/2025 20:07:33 06/05/2025 20:07:33 Pending Labs Complete 06/05/2025 20:15:42 06/05/2025 21:29:09 06/05/2025 22:07:53 CT Complete 06/05/2025 20:15:42 06/05/2025 20:25:21 06/05/2025 21:02:50 Meds Admin Complete 06/05/2025 20:15:42 06/05/2025 20:55:58 X-Ray Complete 06/05/2025 20:15:42 06/05/2025 20:39:29 06/05/2025 21:03:49 RT Tx/ABG Complete 06/05/2025 20:15:42 06/05/2025 20:57:40 06/05/2025 20:57:40 RT Tx/ABG Complete 06/05/2025 20:15:43 06/05/2025 20:57:43 06/05/2025 20:57:43 Meds Admin Complete 06/05/2025 20:16:26 06/05/2025 20:25:32 Pending Labs Complete 06/05/2025 20:22:17 06/05/2025 20:22:17 06/05/2025 20:46:35 Lab Complete 06/05/2025 20:22:17 06/05/2025 20:22:17 06/05/2025 20:46:35 Wet Read Request 06/05/2025 21:03:49 Dr Exam Complete 06/05/2025 22:03:47 06/05/2025 22:03:47 06/05/2025 22:03:47 Registration Request 06/05/2025 22:03:47 Pending Labs Complete 06/05/2025 22:20:44 06/05/2025 22:20:44 06/05/2025 22:20:44 Meds Admin Complete 06/05/2025 22:27:07 06/05/2025 22:39:35 Discharge Complete 06/05/2025 23:37:07 06/05/2025 23:56:35 06/05/2025 23:56:35 Transfer Complete 06/05/2025 23:56:35 06/05/2025 23:56:35 06/05/2025 23:56:35 ADDRESS: [address] [place] [address] DR RACHELE MIRANDA [place] [phone] PHYS DOC NOTES: MEDICAL INFORMATION: Prescriptions Given: Medications to Continue with No Changes Other Medications albuterol (albuterol 0.083% Inh Teresita 3 mL) 0.083% - 3mL dosing units Inhalation every 4 hours as needed Wheezing. albuterol (Ventolin HFA 90 mcg/inh Aerosol-Adpt) 2 Puffs Inhalation 4 times a day as needed for wheezing. Refills: 5. alendronate (alendronate 70 mg Tab) 1 Tablets By Mouth every 7 days. alprazolam (Xanax 0.5 mg Tab) 1 Tablets By Mouth 3 times a day as needed for anxiety. prn. amoxicillin Amoxicillin daily as directed.. benzonatate (Tessalon 100 mg Cap) 2 Capsules By Mouth 3 times a day. Refills: 1. carvedilol (carvedilol 25 mg Tab) 1 Tablets By Mouth every day. carvedilol (Coreg 12.5 mg Tab) 1 Tablets By Mouth every day. Refills: 0. dicyclomine (dicyclomine 20 mg Tab) TAKE 1 TABLET BY MOUTH FOUR TIMES A DAY. Refills: 1. hydrochlorothiazide (hydrochlorothiazide 25 mg Tab) 1 Tablets By Mouth every day. Refills: 0. omeprazole (omeprazole 40 mg Cap-DR) 1 Capsules By Mouth every day. 30 minutes prior to food or any other medication.. Refills: 3. quetiapine (Seroquel) 50 Milligram By Mouth at bedtime. PATIENT EDUCATION INFORMATION: Instructions: Hypertension, Adult, Pedt-lu-Gvxs Follow up: With: Address: [place]: German Link [address] [place], [place] [id number] [facility] () In 3 days 06/08/2025 Comments: Call to schedule a follow-up appointment with your primary care provider and psychiatrist. Continue taking your blood pressure medications as prescribed. Monitor your blood pressure at home and keep a log of it. Return to the ED with any new or worsening symptoms. DIAGNOSIS: Anxiety; WANG (headache); HTN (hypertension) Normal [facility] ED Patient Summaryon 025 ED Patient Summary ED Patient Summary [address] [address] Patient Discharge Instructions Person Information Name: NAHTANIEL MARCIAL Age: 49 Years Arrival Date: 06/05/2025 19:50:49 Discharge Diagnosis: Anxiety; WANG (headache); HTN (hypertension) Primary Care Physician: German Sheehan DO Provider Information Primary Provider: Saul Palmer DO [employer] Officer:Rosemarie Ramirez PA-C The exam and treatment you received in the Emergency Department were for an urgent problem and are not intended as complete care. It is important that you follow up with a doctor, nurse practitioner, or physician???s assistant front end manager for ongoing care. If your symptoms become worse or you do not improve as expected and you are unable to reach your usual health care provider, you should return to the Emergency Department. We are available 24 hours a day. NATHANIEL MARCIAL has been given the following list of patient education materials, prescriptions and follow-up instructions: Follow-up Instructions: With: Address: When: German Sheehan [address] [address] Business (1) In 3 days 06/08/2025 Comments: Call to schedule a follow-up appointment with your primary care provider and psychiatrist. Continue taking your blood pressure medications as prescribed. Monitor your blood pressure at home and keep a log of it. Return to the ED with any new or worsening symptoms. In the event that this physician does not participate in your insurance network, please consult with your insurance company to find a nearby participating provider. Patient Education Materials: Hypertension, Adult, Otfk-xj-Ykkk A MESSAGE TO ALL PATIENTS REGARDING OPIOIDS PRESCRIPTION OPIOIDS: WHAT YOU NEED TO KNOW Prescription opioids can be used to help relieve heiowayc-nf-xkwruy pain and are often prescribed following a [...] or your pharmacy mail-back program, or flush (more content not included)... Normal [facility] PT & PTTon 06-05-2025 INR Coag (PPP) [Relative time] 0.86 {INR} Invalid Interpretation Code [facility] Comment on above: Result Comment: INR results are specifically intended to assess patients stabilized on long-term Anticoagulation therapy suggested INR???s ???Less Intensive Anticoagulation??? 2.0 ??? 3.0 Conventional Range 3.0 ??? 4.5 Performed By: #### 1 [id number] #### [facility] [address] [place] [address] PT 9.6 second(s) Normal 9.4-12.5 [facility] Comment on above: Result Comment: 15 d ays - 4 weeks 1 - 5 months 6 -11 months 1- 5 years 6-10 years 11 -17 years Mean: 11.2 (9.5-12.6) Mean: 11.0 (9.7-12.8) Mean: 11.0 (9.8-13.0) Mean: 11.3 (9.9-13.4) Mean: 11.7 (10.0-14.6) Mean: 11.8 (10.0 - 14.1) Pediatric Reference ranges were obtained from a study by ranjeet Vanessa prepared from 1437 samples obtained at 7 different centers using the same coagulation reagent and instrumentation as [facility]. Currently there are no coagulation studies available worldwide for children to 14 days, and no normal ranges. Performed By: #### 1 [id number] #### [facility] [address] [place] [address] PTT 28.9 second(s) Normal 25.1-36.5 [facility] Comment on above: Result Comment: Para meter 15 days - 4 weeks 1 - 5 months 6 - 11 months 1 - 5 years 6 - 10 years 11 - 17 years PTT Mean: 35.4 (27.6-45.6) Mean: 33.5 (24.8-40.7) Mean: 32.4 (25.1-40.7) Mean: 31.6 (24.0-39.2) Mean: 31.6 (26.9-38.7) Mean: 31.0 (24.6-38.4) Pediatric Reference ranges were obtained from a study by Shaun Solon, et al. prepared from 1437 samples obtained at 7 different centers using the same coagulation reagent and instrumentation as [facility]. Currently there are no coagulation studies available worldwide for children to 14 days, and no normal ranges. Heparin therapeutic range (represented by Anti-Factor Xa activity of 0.2 - 0.4 U/mL) corresponds to PTT of 56.6 - 109.0 sec. Performed By: #### 1 [id number] #### [facility] [address] [place] [address] Troponin 0 Hr.on 06-05-2025 Troponin HS 2.70 pg/mL Low 10.10-27.10 [facility] Comment on above: Result Comment: The 95% CI (Confidence Interval) PPV (Positive Predictive Value) for myocardial infarction in females is 38 pg/mL, in males 51 pg/mL. The results should be used in conjunction with clinical conditions of myocardial infarction. (Access High Sensitivity Troponin I Instructions For Use, [employer], April 2018) Performed By: #### 1 [id number] #### [facility] [address] [place] [address] Troponin 1 Hr.on 06-05-2025 Troponin HS <2.30 Low 10.10-27.10 [facility] Comment on above: Result Comment: The 95% CI (Confidence Interval) PPV (Positive Predictive Value) for myocardial infarction in females is 38 pg/mL, in males 51 pg/mL. The results should be used in conjunction with clinical conditions of myocardial infarction. (Access High Sensitivity Troponin I Instructions For Use, [employer], April 2018) Performed By: #### 1 [id number] #### [facility] [address] [place] [address] UA with Cult Rflxon 06-05-20 25 Color (U) Colorless Abnormal Yellow [facility] Comment on above: Result Comment: Micr oscopic readings are only performed on those samples that meet specific criteria set forth by [facility]. Performed By: #### 4 [id number] #### [facility] [address] [place] [address] Glucose (U) [Mass/Vol] Negative Normal Negative [facility] Comment on above: Performed By: #### 4 [id number] #### [facility] [address] [place] [address] Ketones Ql (U) Trace Abnormal Negative [facility] Comment on above: Performed By: #### 4 [id number] #### [facility] [address] [place] [address] UA Blood Trace Abnormal Negative [facility] Comment on above: Performed By: #### 4 [id number] #### [facility] [address] [place] [address] UA Clarity Clear Normal Clear [facility] Comment on above: Performed By: #### 4 [id number] #### [facility] [address] [place] [address] UA Leuk Est Negative Normal Negative [facility] Comment on above: Performed By: #### 4 [id number] #### [facility] [address] [place] [address] UA Mucous Negative Normal Negative [facility] Comment on above: Performed By: #### 4 [id number] #### [facility] [address] [place] [address] UA Nitrite Negative Normal Negative [facility] Comment on above: Performed By: #### 4 [id number] #### [facility] [address] [place] [address] UA pH 6.0 Invalid Interpretation Code 5.0-9.0 [facility] Comment on above: Performed By: #### 4 [id number] #### [facility] [address] [place] [address] UA Protein Negative Normal Negative [facility] Comment on above: Performed By: #### 4 [id number] #### [facility] [address] [place] [address] UA RBC 0-3 Normal 0-3 [facility] Comment on above: Performed By: #### 4 [id number] #### [facility] [address] [place] [address] UA Spec Grav 1.005 Invalid Interpretation Code 1.005-1.030 [facility] Comment on above: Performed By: #### 4 [id number] #### [facility] [address] [place] [address] UA Squam Epithelial 0-2 Invalid Interpretation Code [facility] Comment on above: Performed By: #### 4 [id number] #### [facility] [address] [place] [address] UA Urobilinogen Negative Normal Negative [facility] Comment on above: Performed By: #### 4 [id number] #### [facility] [address] [place] [address] UA WBC 0-5 Normal 0-5 [facility] Comment on above: Performed By: #### 4 [id number] #### [facility] [address] [place] [address] Urobilinogen (U) [Mass/Vol] Negative Normal Negative [facility] Comment on above: Performed By: #### 4 [id number] #### [facility] [address] [place] [address] UA Spec Desc Clean Catch Normal [facility] Comment on above: Performed By: #### 4 [id number] #### [facility] [address] [place] [address] eGFRon 06-05-2025 eGFR 89 mL/min/1.73 m2 Normal >=59 [facility] Comment on above: Performed By: #### 1 [id number] #### [facility] [address] [place] [address] Ambulatory Visit Summaryon 0 05-25-2025 Ambulatory Visit Summary Ambulatory Visit Summary ANIKET NATHANIEL Mcgill :1975 Visit Date:05/23/2025 Ambulatory Visit Instructions Your Diagnosis Encounter for annual wellness visit (AWV) in Medicare patient Screening for ischemic heart disease Primary ovarian failure Hypertension Asthma Smoker Generalized anxiety disorder with panic attacks GERD (gastroesophageal reflux disease) Osteoarthritis of right shoulder Breast cancer screening by mammogram Screen for colon cancer Bipolar I disorder Your Care Team Attending Physician German Birch DO Primary Care Physician - German Sheehan DO This Is Your Medications List albuterol (Ventolin HFA 90 mcg/inh Aerosol-Adpt) albuterol (albuterol 0.083% Inh Teresita 3 mL) alendronate (alendronate 70 mg Tab) alprazolam (Xanax 0.5 mg Tab) amoxicillin benzonatate (Tessalon 100 mg Cap) carvedilol (carvedilol 25 mg Tab) dicyclomine (dicyclomine 20 mg Tab) omeprazole (omeprazole 40 mg Cap-DR) quetiapine (Seroquel) Procedures Performed Appendectomy, x2, Colonoscopy, Hysterectomy, Repair of recurrent inguinal hernia, spine surgery for scoliosis. Discharge Vitals Heart Rate (Peripheral) 94 Blood Pressure 136/80 Height 150.7 cm Height 59 in Weight 63.9 kg Weight 140.875 lb BMI 28.14 What to do next Scheduled Follow-Up Appointments Monday 2:00 PM EDT With: German Sheehan DO Where: [place] [address] [place] [address]- [id number] 9:30 AM EDT With: Where: [address] [place] [address]- You Need to Complete the Following Comprehensive Metabolic Panel, Blood, Routine collect, 05/23/25, Order for future visit, Lab Collect, Hypertension, Not Required, Print Label By Order Location Lipid Panel, Blood, Routine collect, 05/23/25, Order for future visit, Lab Collect, Screening for ischemic heart disease, Required & Missing, Print Label By Order Location BD Bone Density DEXA, 05/23/25, Routine, Order for Future Visit, Transport Mode: Ambulatory, Reason: Post menopausal, Primary ovarian failure, No, 140, pp_set_radiology_subsp ecialty, Not Required, Carlos Garibay MA Mamm Screen w/CAD if perf and 3D Robert, 05/23/25, Routine, Order for Future Visit, Transport Mode: Ambulatory, Reason: Screening, No, Breast cancer screening by mammogram, No breast implants., pp_set_radiology_subsp ecialty, Required & Missing, Carlos Garibay Medications What How Much When Why Instructions Unchanged albuterol (albuterol 0.083% Inh Teresita 3 mL) 0.083% - 3mL dosing units Inhalation Every 4 hours as needed for Wheezing Unchanged albuterol (Ventolin HFA 90 mcg/ inh Aerosol-Adpt) 2 Puffs Inhalation 4 times a day as needed for for wheezing Unchanged alendronate (alendronate 70 mg Tab) 1 Tablets By Mouth Every 7 days Unchanged alprazolam (Xanax 0.5 mg Tab) 1 Tablets By Mouth 3 times a day as needed for for anxiety prn Unchanged amoxicillin Amoxicillin daily as directed. Unchanged benzonatate (Tessalon 100 mg Cap) 2 Capsules By Mouth 3 times a day Rib fracture Unchanged carvedilol (carvedilol 25 mg Tab) 1 Tablets By Mouth Every day Unchanged dicyclomine (dicyclomine 20 mg Tab) See instructions TAKE 1 TABLET BY MOUTH FOUR TIMES A DAY Unchanged omeprazole (omeprazole 40 mg Cap-DR) 1 Capsules By Mouth Every day 30 minutes prior to food or any other medication. Unchanged quetiapine (Seroquel) 50 Milligram By Mouth At bedtime Allergies LaMICtal (Unknown) Tape (rash) bacitracin clindamycin (Unknown) vancomycin Problems Ongoing - Any problem that you are currently receiving treatment for. Asthma BMI 28.0-28.9,adult Dextroscoliosis of thoracic spine Generalized anxiety disorder with panic attacks GERD (gastroesophageal reflux disease) Hypertension Osteoarthritis of right shoulder Panic disorder [episodic paroxysmal anxiety] Smoker Historical - Any problem that you are no longer receiving treatment for. Endometriosis IBS - Irritable bowel syndrome Patient Survey You may receive a survey via text or e-mail asking about your office visit. Please share your experience with us by completing your survey. We appreciate your feedback and thank you for choosing us for your care. Education Materials Bipolar I Disorder Bipolar I disorder is a mental health disorder in which a person has episodes of emotional highs (oren) and may also have episodes of lows (depression). Bipolar I disorder differs from other bipolar disorders in that it involves extreme episodes of roen (manic episodes). These episodes last at least one week or involve severe symptoms that require a hospital stay to keep the person safe. What are the causes? The cause of this condition is not known. What increases the risk? The following factors may make you more likely to develop this condition: ??? Having a family member wit (more content not included)... Normal [facility] Family Medicine Office/Clini c Noteon 05-25-2025 Family Medicine Office/Clinic Note Family Medicine Office/Clinic Note Chief Complaint Medicare Wellness Visit History of Present Illness I was in the office and available for consultation and to provide direct supervision at the time of this visit. I have provided supervision of the care team and have reviewed this chart and office note and agree with the plan of care. Physical Exam Vitals & Measurements HR: 94(Peripheral) BP: 136/80 SpO2: 96% HT: 59 in HT: 150.7 cm WT: 140.875 lb WT: 63.9 kg BMI: 28.14 Assessment/Plan 1. Encounter for annual wellness visit (AWV) in Medicare patient (Z00.00: Encounter for general adult medical examination without abnormal findings) The patient was given a customized and personalized print out of all the current AHRQ USPSTF???s recommendations for preventative services and all current CDC recommended immunizations, relevant risk recommendations and the following patient brochures were given. Reviewed What can I expect during my Medicare preventative care visit CDC-Falls Prevention and home safety screening reviewed. Patient denies any falls in last 12 months, voices no worry about falling, exhibits no problems with sitting and standing. Pt voices understanding with keeping walk way area free of clutter to prevent tripping and/or falling. [place] Advance Directives reviewed. Patient received Advance Directive packet. Spent 5 minutes with patient. An explanation of ADVANC[employer] PLANNING for end of life reviewed. Discussion included handout Planning for Important Health Care Decisions with explanations regarding different decisions to discuss with their chosen representatives. Explained the role each sales representative supervisor would play, encouraged patient to select 2 people with one being the primary and the other for an alternate. Discussed importance of reviewing forms with her family so that they are aware of her decision. This would be the time to implement plans to ensure specific wishes are honored and if there would be questions from the family these could be discussed for a better understanding. Patient does voice understanding that these forms would be effective if the patient is unable to speak, types of medical care and desired comfort level that is preferred to improve care at the end of life . Reminded patient the these forms may be revoked at any time and in any manner. Once scanned into medical chart, forms are returned to patient and reminded to give a copy to selected representatives. ID card provided for patient to fill out with their name as well as their representatives information. Check off which forms they have in place and where they have it on file. [place] Donor Registry also is included in packet: Reviewed with patient if they are and/or if they are not an organ donor they can complete this form and mail to the [place] [employer] (address is included) to have on file. Keep copy in wallet and discussed benefit with having another copy kept with medications in case 911 would ever be called, this would be needed information to provide if patient is to be transferred to a hospital for further evaluation. Patient voices understanding and appreciation. Patient denies any problems with ADL???s and Instrumental ADL???s. Cognitive screening completed with memory and clock face drawing. Immunization Record reviewed with the patient. COVID vaccines have been administered, immunization record is up to date. Allergies and medications reviewed and up to date. Patient denies concerns with taking medication as prescribed, reviewed OTC medications with patient with medication list up to date. Blood tests were reviewed: Discussed what tests need to be updated. Labs were ordered, will have completed prior to next PCP visit. Will have labs completed with [facility]. Reviewed concerns with bladder control over past 6 months with no concerns. Reviewed pain symptoms with patient: Patient has c/o pain right shoulder 05/04. Patient is currently receiving trigger point injections and states it is helping. Reviewed all outside providers that patient follows. Last visit summary notes available in chart and/or have been requested. Follow up scheduled 05/2025 AWV has been scheduled, 04/2026 Medicare provides yearly screening for alcohol and depression concerns. This is completed during our Medicare wellness visit for those who do not have a current diagnosis of depression or concerns with alcohol use. I spent a total of 15 minutes on this date of service which included preparing to see the patient, face to face patient care, completing clinical documentation, obtaining and/or reviewing separately obtained history, counseling and educating the patient with handouts. Explanations were provided with reviewing questionnaires. AUDIT risk assessment screening completed, risk score (3) with patient denying concerns with use. 2. Screening for ischemic heart disease (Z13.6: Encounter for screening for cardiovascular disorders) Lipid panel ordered. Educated patient to fast (more content not included)... Normal [facility] Comment on above: Result Comment: Elec tronically Signed By: German Sheehan DO.br\Date and Time Signed: 05/25/25 06:35 EDT\.br\Electronically Co-Signed By: Asia MCDOWELL, Yris Graff\.br\Date and Time Co-Signed: 05/23/25 13:39 EDT Family Medicine Office/Clini c Noteon 05-23-2025 Family Medicine Office/Clinic Note Family Medicine Office/Clinic Note HPI Staff Patient here for Chronic Condition f/u Patient is here for follow up on hypertension. How often are you checking your blood pressure? Daily What are your average readings? 120/80-117/75 Do you have any of the following symptoms? Chest Pain? no Palpitations? yes but not all the time DIAZ/SOB? yes especially if she bends over Headache? yes recently Peripheral Edema? no Light Headiness? yesoccassionally BUN: 9 mg/dL (10/13/23 16:56:00) Calcium Lvl: 8.7 mg/dL Low (10/13/23 16:56:00) Chloride: 104 mmol/L (10/13/23 16:56:00) CO2: 24 mmol/L (10/13/23 16:56:00) Creatinine: 0.7 mg/dL (10/13/23 16:56:00) eGFR: 106 mL/min/1.73 m2 (10/13/23 16:56:00) Glucose Lvl: 89 mg/dL (10/13/23 16:56:00) Potassium Lvl: 2.9 mmol/L Low (10/13/23 16:56:00) Sodium Lvl: 138 mmol/L (10/13/23 16:56:00) Labs: DUE Follow up for Mental Status: Medication adherence- Yes, takes medication as prescribed Medication refill needed: no Suicidal thoughts-Not at this time Most recent NNEKA:15 Most recent PHQ:16 - At last visit Orthopedic referral was discussed, patient hadn't made a decision on where she would like to go. Julienne: Due Pap: Hx Hysterectomy [place]: per patient 2022, [facility] AMW: UTD History of Present Illness Patient presents today for followup on back pain. - Trigger point injections applied 04/22/2025 - Ongoing neck and shoulder pain - Considering gabapentin and Lyrica for fibromyalgia today - On Xanax through psychiatry, CBD products for symptom control Patient states that she does not sleep well. She requests a sleep study today. She denies any prior sleep studies done. Patient states that her shoulder pain is getting better with the trigger point. She is very happy she was able to get ahold of the 5% lidocaine patches, they are helping immensely as well. She states that she is functioning much better, though she notes that the shoulder trigger points took about 7 days to become effective. Review of Systems ROS - Provider Constitutional: no fever, no chills Skin: no rash, no lesions ENMT: no ear pain, no sore throat, no congestion, no hoarseness. Respiratory: no shortness of breath, no cough, no wheezing. Cardiovascular: no chest pain, no palpitations, no edema. Gastrointestinal: no nausea, no vomiting, no diarrhea, Musculoskeletal: yes back pain, no trauma, yes neck pain, yes back pain, yes rib pain Neurologic: no headache, no dizziness, no numbness, no weakness. Psychiatric: yes sleeping problems, no irritability, yes mood swings/depression. Physical Exam Vitals & Measurements HR: 94(Peripheral) BP: 136/80 SpO2: 96% HT: 150.7 cm WT: 63.9 kg BMI: 28.14 General: Well developed, well nourished, in no acute distress Head: Normocephalic/atraumat ic Eyes: Pupils equal, round, and reactive to light. Sclerae normal, and extraocular movements intact Lungs: Normal respiratory effort and clear to auscultation Cardio: Regular rate and rhythm, normal S1 and S2, no murmur, no rub Musculoskeletal: No deformity or scoliosis noted. Normal range of motion. Joints normal. No erythema, edema, effusion, or ecchymosis Extremity: No clubbing, cyanosis, edema, or deformity, with normal ROM in both upper and lower bilateral extremities Neurologic: Grossly normal Skin: No rash, petechiae, suspicious lesions Mental Status: Alert and oriented x3. Normal mood and affect Assessment/Plan 1. Cervicalgia (M54.2: Cervicalgia) Improved on exam today. She is tolerating well. She wishes to hold on medications at this time, and avoid management of joint by orthopedics for now. She wishes to get through the winter with a minimum of intervention, she hates coming out with the snow out. Will recheck in 6 weeks, and patient to call with any new findings. 2. Dextroscoliosis of thoracic spine (M41.84: Other forms of scoliosis, thoracic region) As per #1. 3. Smoker, (F17.200: Nicotine dependence, unspecified, uncomplicated)Smoker We strongly recommend to quit tobacco use. Cigarette smoking harms nearly every organ of the body, causes many diseases, and reduces the health of smokers in general. Quitting smoking lowers your risk for smoking-related diseases and can add years to your life. We encourage you to visit www.smokefree.gov access to helpful resources including free telephone support. If you decide on prescription treatment to help you quit, we would be happy to provide these. Ordered: Medicare Initial Visit G0438 4. BMI 28.0-28.9,adult (Z68.28: Body mass index [BMI] 28.0-28.9, adult) The standard range for ages 18 and older is >=18.5 and < 25 kg/m2. Your BMI today was above this range, this falls in the overweight to obese category and there are medical benefits to weight loss. We can offer counselling, referral, and/or medical support in addressing this problem. Your BMI and weight management will be followed at subsequent visits. 6. Sleep disorder (G47.9: Sleep disorder, un (more content not included)... Normal [facility] Comment on above: Result Comment: Elec tronically Signed By: German Sheehan DO\.br\Date and Time Signed: 05/23/25 13:39 EDT Orders Onlyon 04-24-2025 Orders Only [id number] Jeyn Marcial 1975 F Date Provider Department [place] 04/24/2025 [id number], HISTORICAL CARD [facility] Family History Problem Relation Age of Onset Heart failure Mother Heart failure Father Transient ischemic attack Father No Known Problems Sister No Known Problems Brother Family Status - Relation Status Age at Mother Father Sister Brother Normal [facility] Ambulatory Visit Summaryon 0 04-22-2025 Ambulatory Visit Summary Ambulatory Visit Summary NATHANIEL MARCIAL :1975 Visit Date:04/22/2025 Ambulatory Visit Instructions Your Diagnosis Hypertension Dextroscoliosis of thoracic spine Osteoarthritis of right shoulder BMI 28.0-28.9,adult Smoker Your Care Team Attending Physician - German Sheehan DO Primary Care Physician - German Sheehan DO This Is Your Medications List albuterol (Ventolin HFA 90 mcg/inh Aerosol-Adpt) albuterol (albuterol 0.083% Inh Teresita 3 mL) alendronate (alendronate 70 mg Tab) alprazolam (Xanax 0.5 mg Tab) benzonatate (Tessalon 100 mg Cap) carvedilol (carvedilol 25 mg Tab) dicyclomine (dicyclomine 20 mg Tab) lidocaine topical (lidocaine Top 5% film Patch) losartan (losartan 25 mg Tab) omeprazole (omeprazole 40 mg Cap-DR) pantoprazole (Protonix 20 mg Tab-DR) quetiapine (Seroquel) Procedures Performed Appendectomy, x2, Colonoscopy, Hysterectomy, Repair of recurrent inguinal hernia, spine surgery for scoliosis. Discharge Vitals Heart Rate (Peripheral) 87 Respiratory Rate 18 Blood Pressure 132/86 Height 150.7 cm Height 59 in Weight 64.7 kg Weight 142.639 lb BMI 28.49 What to do next Scheduled Follow-Up Appointments Monday 9:40 AM EDT With: German Sheehan DO Where: [address] [place] [id number]- Monday 11:00 AM EDT With: German Sheehan DO Where: [address] [place] [phone]- You Need to Schedule the Following Appointments Follow Up with German Sheehan DO, [facility] When: Within 4 weeks Comments: 4 WEEKS FOLLOWUP Where: [address] [place] [id number]- Medications What How Much When Why Instructions New dicyclomine (dicyclomine 20 mg Tab) 1 Tablets By Mouth 4 times a day Duration: 30 Days Refills: 1 Pickup at [facility]/pharmacy #[id number] New lidocaine topical (lidocaine Top 5% film Patch) 1 Patches Topical Every day Dextroscoliosis of thoracic spine Osteoarthritis of right shoulder Refills: 5 apply 12 hours on and 12 hours off daily Pickup at [facility]/pharmacy #[id number] Unchanged albuterol (albuterol 0.083% Inh Teresita 3 mL) 0.083% - 3mL dosing units Inhalation Every 4 hours as needed for Wheezing Unchanged albuterol (Ventolin HFA 90 mcg/ inh Aerosol-Adpt) 2 Puffs Inhalation 4 times a day as needed for for wheezing Unchanged alendronate (alendronate 70 mg Tab) 1 Tablets By Mouth Every 7 days Unchanged alprazolam (Xanax 0.5 mg Tab) 1 Tablets By Mouth 3 times a day as needed for for anxiety prn Unchanged benzonatate (Tessalon 100 mg Cap) 2 Capsules By Mouth 3 times a day Rib fracture Unchanged carvedilol (carvedilol 25 mg Tab) 2 Tablets By Mouth Twice a day (with meals) Unchanged losartan (losartan 25 mg Tab) 1 Tablets By Mouth Every day Unchanged omeprazole (omeprazole 40 mg Cap-DR) 1 Capsules By Mouth Every day 30 minutes prior to food or any other medication. Unchanged pantoprazole (Protonix 20 mg Tab-DR) 2 Tablets By Mouth Every day Unchanged quetiapine (Seroquel) 50 Milligram By Mouth At bedtime Pharmacy Information [facility]/pharmacy #[id number]: [address] [place], [place] [id number] [phone] Allergies LaMICtal (Unknown) Tape (rash) bacitracin clindamycin (Unknown) vancomycin Problems Ongoing - Any problem that you are currently receiving treatment for. Asthma Dextroscoliosis of thoracic spine Generalized anxiety disorder with panic attacks GERD (gastroesophageal reflux disease) Hypertension Osteoarthritis of right shoulder Panic disorder [episodic paroxysmal anxiety] Scoliosis Smoker Historical - Any problem that you are no longer receiving treatment for. Endometriosis IBS - Irritable bowel syndrome Patient Survey You may receive a survey via text or e-mail asking about your office visit. Please share your experience with us by completing your survey. We appreciate your feedback and thank you for choosing us for your care. Patient Portal You may access all of your results and other medical record information on our secure patient portal. If you are not signed up for this yet, please contact [employer] at [phone] to get signed up today. Language Information Language assistance services are available as needed. Marii [facility] Ambulatory Visit Summary Ambulatory Visit Summary NATHANIEL MARCIAL :1975 Visit Date:04/22/2025 Ambulatory Visit Instructions Your Diagnosis Hypertension Dextroscoliosis of thoracic spine Osteoarthritis of right shoulder BMI 28.0-28.9,adult Smoker Your Care Team Attending Physician - German Sheehan DO Primary Care Physician - German Sheehan DO This Is Your Medications List albuterol (Ventolin HFA 90 mcg/inh Aerosol-Adpt) albuterol (albuterol 0.083% Inh Teresita 3 mL) alendronate (alendronate 70 mg Tab) alprazolam (Xanax 0.5 mg Tab) benzonatate (Tessalon 100 mg Cap) carvedilol (carvedilol 25 mg Tab) dicyclomine (dicyclomine 20 mg Tab) lidocaine topical (lidocaine Top 5% film Patch) losartan (losartan 25 mg Tab) omeprazole (omeprazole 40 mg Cap-DR) pantoprazole (Protonix 20 mg Tab-DR) quetiapine (Seroquel) Procedures Performed Appendectomy, x2, Colonoscopy, Hysterectomy, Repair of recurrent inguinal hernia, spine surgery for scoliosis. Discharge Vitals Heart Rate (Peripheral) 87 Respiratory Rate 18 Blood Pressure 132/86 Height 150.7 cm Height 59 in Weight 64.7 kg Weight 142.639 lb BMI 28.49 What to do next Scheduled Follow-Up Appointments Monday 9:40 AM EDT With: German Sheehan DO Where: [address] [place] [phone]- Monday 11:00 AM EDT With: German Sheehan DO Where: [address] [place] [address]- You Need to Schedule the Following Appointments Follow Up with German Sheehan DO, [facility] When: Within 4 weeks Comments: 4 WEEKS FOLLOWUP Where: [address] [address]- Medications What How Much When Why Instructions New dicyclomine (dicyclomine 20 mg Tab) 1 Tablets By Mouth 4 times a day Duration: 30 Days Refills: 1 Pickup at [facility]/pharmacy #[id number] New lidocaine topical (lidocaine Top 5% film Patch) 1 Patches Topical Every day Dextroscoliosis of thoracic spine Osteoarthritis of right shoulder Refills: 5 apply 12 hours on and 12 hours off daily Pickup at [facility]/pharmacy #[id number] Unchanged albuterol (albuterol 0.083% Inh Teresita 3 mL) 0.083% - 3mL dosing units Inhalation Every 4 hours as needed for Wheezing Unchanged albuterol (Ventolin HFA 90 mcg/ inh Aerosol-Adpt) 2 Puffs Inhalation 4 times a day as needed for for wheezing Unchanged alendronate (alendronate 70 mg Tab) 1 Tablets By Mouth Every 7 days Unchanged alprazolam (Xanax 0.5 mg Tab) 1 Tablets By Mouth 3 times a day as needed for for anxiety prn Unchanged benzonatate (Tessalon 100 mg Cap) 2 Capsules By Mouth 3 times a day Rib fracture Unchanged carvedilol (carvedilol 25 mg Tab) 2 Tablets By Mouth Twice a day (with meals) Unchanged losartan (losartan 25 mg Tab) 1 Tablets By Mouth Every day Unchanged omeprazole (omeprazole 40 mg Cap-DR) 1 Capsules By Mouth Every day 30 minutes prior to food or any other medication. Unchanged pantoprazole (Protonix 20 mg Tab-DR) 2 Tablets By Mouth Every day Unchanged quetiapine (Seroquel) 50 Milligram By Mouth At bedtime Pharmacy Information [facility]/pharmacy #[id number]: [address] [place], [place] [phone] Allergies LaMICtal (Unknown) Tape (rash) bacitracin clindamycin (Unknown) vancomycin Problems Ongoing - Any problem that you are currently receiving treatment for. Asthma Dextroscoliosis of thoracic spine Generalized anxiety disorder with panic attacks GERD (gastroesophageal reflux disease) Hypertension Osteoarthritis of right shoulder Panic disorder [episodic paroxysmal anxiety] Scoliosis Smoker Historical - Any problem that you are no longer receiving treatment for. Endometriosis IBS - Irritable bowel syndrome Patient Survey You may receive a survey via text or e-mail asking about your office visit. Please share your experience with us by completing your survey. We appreciate your feedback and thank you for choosing us for your care. Patient Portal You may access all of your results and other medical record information on our secure patient portal. If you are not signed up for this yet, please contact [employer] at [phone] to get signed up today. Language Information Language assistance services are available as needed. Normal Gonzalez [facility] Family Medicine Office/Clini c Noteon 04-22-2025 Family Medicine Office/Clinic Note Family Medicine Office/Clinic Note Chief Complaint Review Results HPI Staff Patient here to review test results - At last visit provider reordered x-rays. Provider also prescribed Benzonatate for cough and a referral to [facility]. Patient has completed to x-rays and would like to review. Patient notes she cannot get an appointment with [facility] until 09/2025, she would like to discuss this with provider. Patient would also like to discuss test orders for lactose intolerance. [place]: per patient 2022, [facility] [place] Julienne: due Pap: Hx Hysterectomy AMW: Needs to Schedule History of Present Illness Patient presents today for 6 week followup. - Referred to Dr. Vasquez at [facility] at patient request - Referred to cardiology due to refractory HTN management - Follows for Dr. Wilson at [facility] for orthopedics as well as right shoulder osteoarthritis, considering joint replacement - Patient cannot tolerate MRI >1.5Gauss due to marcos in back for scoliosis Today, patient states that she is doing okay. She states that she would like to discuss her BP today. She states that she discontinued her Losartan. She states she had fatigue with this medication, feels better of this medication at this time. Wishes to discuss this today. She continues to have IBS. She states she is scheduled to see Dr. Vasquez in 09/2025. Denies any nausea or vomiting, continues to have bowel urgency, loose stools consistent with her baseline. Review of Systems PHQ Score Initial Depression Screen Score: 0 SCORE ROS - Provider Constitutional: no fever, no chills Skin: no rash, no lesions ENMT: no ear pain, no sore throat, no congestion, no hoarseness. Respiratory: no shortness of breath, no cough, no wheezing. Cardiovascular: no chest pain, no palpitations, no edema. Gastrointestinal: no nausea, no vomiting, no diarrhea, Musculoskeletal: yes back pain, no trauma, yes neck pain, yes back pain, yes rib pain Neurologic: no headache, no dizziness, no numbness, no weakness. Psychiatric: yes sleeping problems, no irritability, yes mood swings/depression. Physical Exam Vitals & Measurements HR: 87(Peripheral) RR: 18 BP: 132/86 SpO2: 99% HT: 150.7 cm HT: 59 in WT: 64.7 kg WT: 142.639 lb BMI: 28.49 General: Well developed, well nourished, in no acute distress Head: Normocephalic/atraumat ic Eyes: Pupils equal, round, and reactive to light. Sclerae normal, and extraocular movements intact Lungs: Normal respiratory effort and clear to auscultation Cardio: Regular rate and rhythm, normal S1 and S2, no murmur, no rub Musculoskeletal: No deformity or scoliosis noted. Normal range of motion. Joints normal. No erythema, edema, effusion, or ecchymosis Extremity: No clubbing, cyanosis, edema, or deformity, with normal ROM in both upper and lower bilateral extremities Neurologic: Grossly normal Skin: No rash, petechiae, suspicious lesions Mental Status: Alert and oriented x3. Normal mood and affect Assessment/Plan 1. Hypertension (I10: Essential (primary) hypertension) Well controlled at intake, no acute concerns. Continue current medications, recheck at followup. Defer to cardiology to manage patient further if needed, monitor for any complications. Discussed extremes of hypertension. Discussed red flags to go to ER today. Okay with discontinuing Losartan at this time. 2. Dextroscoliosis of thoracic spine (M41.84: Other forms of scoliosis, thoracic region) Reviewed x-rays today for patient. At this time, her shoulder is her primary concern based on my interpretation. Will wait for formal read from radiology. Ordered: lidocaine topical, 1 patch(es), Topical, Daily, 30 patch(es), Refill(s) 5, apply 12 hours on and 12 hours off daily, [facility]/pharmacy #[id number], 150.7, cm, 04/22/25 9:14:00 EDT, Height/Length Dosing, 64.7, kg, 04/22/25 9:14:00 EDT, Weight Dosing 3. Osteoarthritis of right shoulder (M19.011: Primary osteoarthritis, right shoulder) Reviewed x-rays today for patient. Will need to see orthopedics, likely needs shoulder surgery of some kind at this time. Will place referral to provider when patient is ready. Ordered: lidocaine topical, 1 patch(es), Topical, Daily, 30 patch(es), Refill(s) 5, apply 12 hours on and 12 hours off daily, [facility]/pharmacy #[id number], 150.7, cm, 04/22/25 9:14:00 EDT, Height/Length Dosing, 64.7, kg, 04/22/25 9:14:00 EDT, Weight Dosing XR Shoulder Complete Right 4. BMI 28.0-28.9,adult (Z68.28: Body mass index [BMI] 28.0-28.9, adult) The standard range for ages 18 and older is >=18.5 and < 25 kg/m2. Your BMI today was above this range, this falls in the overweight to obese category and there are medical benefits to weight loss. We can offer counselling, referral, and/or medical support in addressing this problem. Your BMI and weight management will be followed at subsequent visits. Ordered: 1125F Pain severity quantified; pain present Body Mass Index (BMI) documented 3008F Depression Screening Negative 3352F Functional status assessed 1170F Medication li (more content not included)... Normal [facility] Comment on above: Result Comment: Elec tronically Signed By: German Sheehan DO\.br\Date and Time Signed: 04/22/25 10:12 EDT XR Spine Cervical 4 or 5 [place] wolfe 04-22-2025 XR Spine Cervical 4 or 5 Views Exam Date/Time: 04/21/2025 11:51 EDT Reason for Exam: S22.32XA Fracture of one rib, usnpecified M41,84 other forms of scoliosis;Neck Pain Report IMPRESSION: MILD TO MODERATE CERVICAL SPONDYLOSIS, SUBSTANTIALLY SIMILAR TO 03/24/2022 EXAM: XR Spine Cervical 4 or 5 Views DATE: 04/21/2025 10:19 AM CLINICAL HISTORY: Neck Pain, S22.32XA Fracture of one rib, unspecified M41,84 other forms of scoliosis. COMPARISON: 03/24/2022. TECHNIQUE: AP, lateral, oblique, and odontoid radiographs of the cervical spine were obtained. FINDINGS: Mild dextroscoliosis, moderate disc space narrowing C4-C5 through C6-C7, and mild hypertrophic facet changes appears substantially similar to 03/24/2022, with approximately 2 mm of anterolisthesis of C3 over C4 and retrolisthesis C4 over C5 and C5 over C6. There is no compression, fracture, bony neural foraminal narrowing, worrisome bone destruction, or other significant changes identified. The visualized paraspinous soft tissues are unremarkable. Ordering Provider: German Sheehan FINAL REPORT Dictated: 04/22/2025 11:20 am Kevin Ayers MD Signed (Electronic Signature): 04/22/2025 11:20 am Signed by: Kevin Ayers MD Transcribed by: CARISA Technologist: SHAZIA Colvin [facility] XR Spine Lumbosacral Minimum 4 Viewson 04-22-2025 XR Spine Lumbosacral Minimum 4 Views Exam Date/Time: 04/21/2025 11:50 EDT Reason for Exam: S22.39XA Fracture of on rib, unspecified side, initial encounter for closed fracture M41.84 other forms of scoliosis;Back pain Report IMPRESSION: MODERATE S-SHAPED SCOLIOSIS, FUSION RODS AND MILD DEGENERATIVE CHANGES, NOT SIGNIFICANTLY CHANGED FROM 03/24/2022. EXAM: XR Spine Thoracic 3 Views, XR Spine Lumbosacral Minimum 4 Views DATE: 04/21/2025 10:18 AM CLINICAL HISTORY: Back pain, S22.39XA Fracture of on rib, unspecified side, initial encounter for closed fracture M41.84 other forms of scoliosis. COMPARISON: Chest and left rib series 02/02/2025, CT abdomen and pelvis 10/13/2023, and thoracic and lumbosacral spine radiographs 03/24/2022. TECHNIQUE: AP, lateral, oblique, coned down AP and lateral views of the lumbar spine were obtained. FINDINGS: Moderate S-shaped scoliosis with thoracolumbar fusion rods and mild degenerative changes have not significantly changed from the prior studies. There is no compression, fracture, significant subluxation, worrisome bone destruction, or other significant changes identified. The visualized paraspinal soft tissues and sacroiliac joints are unremarkable. Ordering Provider: German Sheehan FINAL REPORT Dictated: 04/22/2025 11:24 am Kevin Ayers MD Signed (Electronic Signature): 04/22/2025 11:24 am Signed by: Kevin Ayers MD Transcribed by: CARISA Technologist: SHAZAI Colvin [facility] XR Spine Thoracic 3 Viewson 04-22-2025 XR Spine Thoracic 3 Views Exam Date/Time: 04/21/2025 11:49 EDT Reason for Exam: S22.39XA Fracture of one rib, unspecified side, initial encounter for close fracture M41.84 Other forms of scoliosis, thoracic region;Back pain Report PLEASE SEE XR Spine Lumbosacral Minimum 4 Views REPORT DATED: 04/21/2025. Ordering Provider: German Sheehan FINAL REPORT Dictated: 04/22/2025 11:21 am Kevin Ayers MD Signed (Electronic Signature): 04/22/2025 11:21 am Signed by: Kevin Ayers MD Transcribed by: CARISA Technologist: SHAZIA Colvin [facility] XR Shoulder Complete [place] 04-21-2025 XR Shoulder Complete Right Exam Date/Time: 04/21/2025 11:55 EDT Reason for Exam: M19.011 Primary osteoarthritis, right shoulder;Arthritis Report IMPRESSION: MARKED DEGENERATIVE CHANGE RIGHT SHOULDER. INTERNAL FIXATION THORACIC SPINE. CLINICAL HISTORY: Arthritis, M19.011 Primary osteoarthritis, right shoulder COMPARISON: NONE FINDINGS: AP, internal, external rotation, Y and axillary views of the right shoulder. Diffuse narrowing right glenohumeral joint with flattening identified along medial margin of the right humeral head. Right acromioclavicular joint maintained. Right acromial humeral interval maintained. Remote internal fixation thoracic spine. No fracture. No bone lesion. Ordering Provider: German Sheehan FINAL REPORT Dictated: 04/21/2025 3:42 pm James Trevino MD Signed (Electronic Signature): 04/21/2025 3:42 pm Signed by: James Trevino MD Transcribed by: CARISA Technologist: SHAZIA Colvin [facility] Ambulatory Visit Summaryon 0 02-27-2025 Ambulatory Visit Summary Ambulatory Visit Summary NATHANIEL MARCIAL Nano :1975 Visit Date:02/27/2025 Ambulatory Visit Instructions Your Diagnosis Hypertension Asthma GERD (gastroesophageal reflux disease) Smoker Generalized anxiety disorder with panic attacks Panic disorder [episodic paroxysmal anxiety] BMI 28.0-28.9,adult C. difficile enteritis Rib fracture Dextroscoliosis of thoracic spine Osteoarthritis of right shoulder Your Care Team Attending Physician - German Sheehan DO Primary Care Physician - German Sheehan DO This Is Your Medications List acetaminophen-oxycodon e (acetaminophen-oxycodo ne 325 mg-5 mg Tab) albuterol (Ventolin HFA 90 mcg/inh Aerosol-Adpt) albuterol (albuterol 0.083% Inh Teresita 3 mL) alendronate (alendronate 70 mg Tab) alprazolam (Xanax 0.5 mg Tab) benzonatate (Tessalon 100 mg Cap) carvedilol (carvedilol 25 mg Tab) dicyclomine (dicyclomine 20 mg Tab) losartan (losartan 25 mg Tab) losartan (losartan 25 mg Tab) omeprazole (omeprazole 40 mg Cap-DR) pantoprazole (Protonix 20 mg Tab-DR) quetiapine (Seroquel) Procedures Performed Appendectomy, x2, Colonoscopy, Hysterectomy, Repair of recurrent inguinal hernia, spine surgery for scoliosis. Discharge Vitals Heart Rate (Peripheral) 70 Respiratory Rate 18 Blood Pressure 120/74 Height 150.7 cm Height 59 in Weight 64.5 kg Weight 142.198 lb BMI 28.4 What to do next Scheduled Follow-Up Appointments Monday 5:00 PM EDT With: German Sheehan DO Where: [facility] [place] [address] [place] [address]- You Need to Schedule the Following Appointments Follow Up with German Sheehan DO [facility] When: Within 2 weeks Comments: 2 WEEKS Where: [address] [place] [address]- You Need to Complete the Following XR Shoulder Complete Right, 02/27/25, Routine, Order for future visit, Transport Mode: Ambulatory, Reason: Arthritis, No, Osteoarthritis of right shoulder, pp_set_radiology_subsp ecialty, Not Required, [facility] [place] XR Spine Cervical 4 or 5 Views, 02/27/25, Routine, Order for future visit, Transport Mode: Ambulatory, Reason: Neck Pain, No, Rib fracture Dextroscoliosis of thoracic spine, pp_set_radiology_subsp ecialty, Not Required, [facility] [place] XR Spine Lumbosacral Minimum 4 Views, 02/27/25, Routine, Order for future visit, Transport Mode: Ambulatory, Reason: Back pain, No, Rib fracture Dextroscoliosis of thoracic spine, pp_set_radiology_subsp ecialty, Not Required, [facility] [place] XR Spine Thoracic 3 Views, 02/27/25, Routine, Order for future visit, Transport Mode: Ambulatory, Reason: Back pain, No, Rib fracture Dextroscoliosis of thoracic spine, pp_set_radiology_subsp ecialty, Not Required, Carlos Garibay Someone Will Contact You Regarding These Appointments [facility] External Ambulatory Referral, Patient choice/referral by family/friend, Gastroenterology, No active case, prior patient of Dr. Vasquez, would like to see him again if possible [facility] [facility], 02/27/25 10:53:00 EDT, C. difficile enteritis Medications What How Much When Why Instructions New benzonatate (Tessalon 100 mg Cap) 2 Capsules By Mouth 3 times a day Rib fracture Refills: 1 Pickup at [facility]/pharmacy #[id number] New carvedilol (carvedilol 25 mg Tab) 2 Tablets By Mouth Twice a day (with meals) Changed albuterol (albuterol 0.083% Inh Teresita 3 mL) 0.083% - 3mL dosing units Inhalation Every 4 hours as needed for Wheezing Changed albuterol (Ventolin HFA 90 mcg/ inh Aerosol-Adpt) 2 Puffs Inhalation 4 times a day as needed for for wheezing Pickup at [facility]/pharmacy #[id number] Changed dicyclomine (dicyclomine 20 mg Tab) 1 Tablets By Mouth 4 times a day Duration: 14 Days Pickup at [facility]/pharmacy #[id number] Changed omeprazole (omeprazole 40 mg Cap-DR) 1 Capsules By Mouth Every day 30 minutes prior to food or any other medication. Pickup at [facility]/pharmacy #[id number] Unchanged acetaminophen-oxycodon e (acetaminophen-oxycodo ne 325 mg-5 mg Tab) TAKE 1 TABLET BY MOUTH EVERY 8 HOURS NEEDED FOR PAIN Unchanged alendronate (alendronate 70 mg Tab) 1 Tablets By Mouth Every 7 days Unchanged alprazolam (Xanax 0.5 mg Tab) 1 Tablets By Mouth 3 times a day as needed for for anxiety prn Unchanged losartan (losartan 25 mg Tab) 1 Tablets By Mouth Every day Unchanged losartan (losartan 25 mg Tab) 1 Tablets By Mouth Every day Unchanged pantoprazole (Protonix 20 mg Tab-DR) 2 Tablets By Mouth Every day Unchanged quetiapine (Seroquel) 50 Milligram By Mouth At bedtime Pharmacy Information [facility]/pharmacy #[id number]: [address], [place] [phone] Allergies LaMICtal (Unknown) Tape (rash) bacitracin clindamycin (Unknown) vancomycin Problems Ongoing - Any problem that you are currently receiving treatment for. Asthma Dextroscoliosis of thoracic spine Generalized anxiety disorder with panic attacks GERD (gastroesophageal reflux disease) Hypertension Panic disorder [episod (more content not included)... 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 Walsh) When was your last doctors visit: over a year Last provider: Gracy Medina Any recent labs: no Health Maintenance UTD: Colonoscopy: per patient 2-3 years ago, [facility] Mammogram: due Pelvic/Pap: Hx Hysterectomy Acute: Current issues/complaints: Patient would like to discuss new Cardiology and GI referrals. Patient would also like to discuss Cardiac medication (concerned with lower blood pressures) and Fosamax. - Patient was seen at [facility] 02/02/25 for left rib pain. X-ray negative for fracture. Naproxen prescribed and advised to f/u with PCP. Patient did f/u with Marry Stevens CNP 02/04, but didn't establish care at that time. No changes made. - Patient was seen at [facility] 02/23/25 for rib pain. Right ninth rib fracture. Patient prescribed Diclofenac and Percocet. Patient declines taking Diclofenac. AMW: Needs to Schedule History of Present Illness Care History Patient last PCP was:Hien Medina DStephanie Patient currently sees Dr. Bah for psychiatric management. Social Patient is a 49-year-old female Patient is currently , has three boys. 25 and 20/20 (twins). Patient has no smoking history. Patient has no use of marijuana. Patient has never abused drugs or prescriptions. Patient has social alcohol use without abuse. Preventative Care Last physical - Due Last Labs - 09/2023 Last Pap - hysterectomy Last Mammogram - Due Last Colonoscopy - See below Today, patient establishing care with new provider. Patient would like a new referral to Dr. Vasquez at [facility]. She has a history of C. Difficile infection, requiring multiple rounds of Vanco, and had a hard time of management. She would like to keep with him as he has managed her case well in the past. Patient states that her heart medications just recently got changed around by her pitching coach. Her HTN was not well controlled at that time. She was previously on just metoprolol, this was discontinued and losartan and carvedilol were put on for her. She states that this is too much. She states within a couple days she started to have too low, her repeat BP was 88/61. She has been on lisinopril previously, and discontinued due to low BP as well. She would like to discuss this with a different pitching coach. She just cancelled an Echo due to a recent rib fracture. She wishes to discuss referral today, but her BP is well controlled today on her current regimen in chart today. Patient has a history of hysterectomy following ectopic . Patient has a diagnosis of osteoporosis. This is likely due to medications. She has an ongoing osteoarthritis of her right shoulder, has been told she has been needing a shoulder replacement. Has seen Dr. Wilson at [facility]. She is about 2 years out of date of seeing orthopedics. Would like to have this and her back updated. She has a history of marcos in the back due to scoliosis as well, would like these rechecked as well today. Patient CANNOT go in an MRI >1.5Gauss, needs this or lower. Noted for future orders. Review of Systems PHQ Score Initial Depression Screen Score: 2 SCORE ROS - Provider Constitutional: no fever, no chills Skin: no rash, no lesions ENMT: no ear pain, no sore throat, no congestion, no hoarseness. Respiratory: no shortness of breath, no cough, no wheezing. Cardiovascular: no chest pain, no palpitations, no edema. Gastrointestinal: no nausea, no vomiting, no diarrhea, Musculoskeletal: yes back pain, no trauma, yes neck pain, yes back pain, yes rib pain Neurologic: no headache, no dizziness, no numbness, no weakness. Psychiatric: yes sleeping problems, no irritability, yes mood swings/depression. Physical Exam Vitals & Measurements HR: 70(Peripheral) RR: 18 BP: 120/74 SpO2: 98% HT: 59 in HT: 150.7 cm WT: 142.198 lb WT: 64.5 kg BMI: 28.4 General: Well developed, well nourished, in no acute distress Head: Normocephalic/atraumat ic Eyes: Pupils equal, round, and reactive to light. Sclerae normal, and extraocular movements intact Lungs: Normal respiratory effort and clear to auscultation Cardio: Regular rate and rhythm, normal S1 and S2, no murmur, no rub Musculoskeletal: No deformity or scoliosis noted. Normal range of motion. Joints normal. No erythema, edema, effusion, or ecchymosis Extremity: No clubbing, cyanosis, edema, or deformity, with normal ROM in both upper and lower bilateral extremities Neurologic: Grossly normal Skin: No rash, petechiae, suspicious lesions Mental Status: Alert and oriented x3. Normal mood and affect Assessment/Plan 1. Hypertension (I10: Essential (primary) hypertension) Well controlled on intake today. She is (more content not included)... Normal [facility] Comment on above: Result Comment: Elec tronically Signed By: German Sheehan DO\.br\Date and Time Signed: 02/27/25 11:41 EDT Pre-Visit Planningon 025 Pre-Visit Planning Pre-Visit Planning From: Rosy Alvarenga To: German Sheehan DO; Sent: 02/26/2025 11:22:51 EDT Subject: Pre-Visit Planning Due Date/Time: 02/26/2025 11:22:00 EDT Caller Name: NATHANIEL MARCIAL; Caller Number: , [place] Dr. Sheehan. During a pre-visit planning chart review, I noted the following documentation in the medical record: Current Problem List: Smoker. All Previous This Visit Problems: Closed left humeral fracture, Trimalleolar fracture of left ankle, and Unspecified fracture of shaft of unspecified fibula. 02/06/2023 Bone Density DEXA: IMPRESSION- The bone density may measurements indicate OSTEOPOROSIS. This places the patient at a significant increased risk for fracture. Recommend follow-up exam in one year, sooner as clinically necessary. Based on your medical judgment, can you please clarify if osteoporosis is present? I can update the Chronic Problem List with your response if you would like. In responding to this request, please exercise your independent professional judgment. The fact that a question is asked does not imply that any particular answer is desired or expected. If you have any questions, please feel free to contact me at extension [phone]. Thank you! Rosy Alvarenga LPN Clinical Online Education Manager [place] [phone] Extension: [phone] [email or web address] From: German Sheehan DO To: Rosy Alvarenga; Sent: 02/27/2025 07:28:14 EDT Subject: RE: Pre-Visit Planning Caller Name: NATHANIEL MARCIAL; Caller Number: Meaghan , Prerna This is a new patient to me, I cannot address this without meeting her. Thanks for the info though! Have a great day! Normal [facility] Office Visiton 02-20-2025 Follow-up visit [id number] Jeny Marcial 1975 F Date Provider Department Center 02/20/2025 NACHO POTTER Family History Problem Relation Age of Onset Heart failure Mother Heart failure Father Transient ischemic attack Father No Known Problems Sister No Known Problems Brother Family Status - Relation Status Age at Mother Father Sister Brother Level of Service:[address]883 [place] OFFICE/OUTPATIENT ESTABLISHED MOD MDM [address] [facility] Office Visiton 02-05-2025 Follow-up visit [id number] Jeny Marcial 1975 F Date Provider Department Center 02/05/2025 NACHO POTTER Family History Problem Relation Age of Onset Heart failure Mother Heart failure Father Transient ischemic attack Father No Known Problems Sister No Known Problems Brother Family Status - Relation Status Age at Mother Father Sister Brother Level of Service:[address]72 [place] OFFICE/OUTPATIENT ESTABLISHED MOD MDM [address] [facility] Ambulatory Visit Summaryon 0 02-04-2025 Ambulatory Visit Summary Ambulatory Visit Summary NATHANIEL MARCIAL :1975 Visit Date:02/04/2025 Ambulatory Visit Instructions Your Diagnosis Contusion of rib Smoker BMI 28.0-28.9,adult Elevated blood pressure, situational Your Care Team Attending Physician - MARRY STEVENS CNP Primary Care Physician - NONE, XXXX [...] AM EDT With: German Sheehan DO Where: [place] [address] [place] [address]- Medications What How Much When Instructions Unchanged [...] for lung collapse and pneumonia. ??? Medicines. Fbfp-vym-dfrpjbj or prescription medicines may be given to control pain. ??? Injection of a numbing medicine around the nerve near your injury (nerve block). Follow these instructions at home: Medicines ??? Take hhaf-xgz-oemurov and prescription medicines only as told by your health care provider. ??? Ask your health care provider if the medicine prescribed to you: ? Requires you to avoid driving or using machinery. ? Can cause constipation. You may need to take these action (more content not included)... Normal [facility] Family Medicine Office/Clini c Noteon 02-04-2025 Family Medicine Office/Clinic Note Family Medicine Office/Clinic Note Chief Complaint The patient presents for follow-up after a suspected rib contusion and increased blood pressure readings. HPI Staff Nathaniel is a 49 year old female presenting with ER followup: Hospital: [facility] Visit date: 02/02/25 Symptoms the patient presented [...] heart medication regimen. - Follow up with pitching coach for medication evaluation. Follow-up No qualifying data available Patient Education Rib Contusion Problem List/Past Medical History Ongoing Dextroscoliosis of thoracic spine Smoker Historical Asthma Endometriosis GERD (gastroesophageal reflux disease) Hypertension IBS - Irritable bowel syndrome Procedure/Surgical History Appendectomy, x2, Colonoscopy, Hysterectomy, spine surgery for scoliosis. Medications albuterol 0.083% Inh Teresita 3 mL, 0.083% [...] fo (more content not included)... Normal [facility] Comment on above: Result Comment: Elec tronically Signed By: MARRY STEVENS CNP\.nasir\Date and Time Signed: 02/04/25 16:49 EDT ED Note-Physicianon 02-04-20 ED Note-Physician ED Note-Physician Basic Information Time [...] day(s), # 20 tab(s), Refills(s) 0, Pharmacy: [facility]/pharmacy #[id number], 149, cm, 02/02/25 18:37:00 EDT, Height/Length [...] Link In 3 days 02/05/2025 EDT [address] [place] [address]- Business (1) Additional Instructions: Patient Education Rib Contusion Attestation Patient seen and evaluated by the physician assistant front end manager. Attending physician was present in the emergency department and supervised care. This visit was performed by both the physician and an APC. I performed all aspects of the MDM as documented. This report was transcribed using voice recognition software. Every effort was made to ensure accuracy, however, inadvertently computerized patient svcs mgr mistakes may be present. Appropriate healthcare PPE was used in evaluating this patient. The patient was placed in a mask. The healthcare provider was wearing mask, gloves, and utilizing proper hand hygiene. All equipment was properly cleansed. I performed a substantive part of the MDM during the patient??? (more content not included)... Normal [facility] Comment on above: Result Comment: Elec tronically Signed By: Chris Cuevas PA-C\.br\Date and Time Signed: 02/02/25 19:51 EDT\.br\Electronically Co-Signed By: Nash Neal DO\.br\Date and Time Co-Signed: 02/03/25 01:45 EDT XR [...] Miramontes DO Transcribed by: CARISA Technologist: POPEYE Normal [facility] ED Clinical Summaryon 2024 ED Clinical Summary ED Clinical Summary [address] [address] ED Clinical Summary Person Information Name: NATHANIEL MARCIAL [place] Age: 49 Years : 1975 Sex: Female Language: Zambian PCP: NONE, XXXX Marital Status: Phone: [phone] Visit Id: Visit Reason: Rib/trunk pain-swelling; RIB/TRUNK [...] 02/02/2025 19:49:23 02/02/2025 19:49:23 02/02/2025 19:49:23 ADDRESS: [address] [place] [address] DR [facility]FF[facility]Y [facility] [phone] PHYS DOC NOTES: MEDICAL INFORMATION: Prescriptions Given: New Medications [id number], [address], [place] [phone], [phone] naproxen (naproxen 500 mg Tab) 1 Tablets By Mouth 2 times a day for 10 Days. Refills: 0. Medications to Continue with No Changes Other Medications acetaminophen-oxycodon e (Percocet 5 mg-325 mg oral tablet) 1-2 [...] a day as needed for anxiety. prn. budesonide-formoterol (Symbicort) Inhalation 2 times a day. dicyclomine [...] Follow up: With: Address: When: German Link [address] [place], [place] [phone] Business (1) In 3 days 02/05/2025 DIAGNOSIS: Contusion of rib on left side Normal [facility] ED Patient Summaryon 025 ED Patient Summary ED Patient Summary [address] [address] Patient Discharge Instructions Person Information Name: NATHANIEL MARCIAL Age: 49 Years Arrival Date: 02/02/2025 18:29:21 Discharge Diagnosis: Contusion of rib on left side Primary Care Physician: NONE, XXXX Provider Information Primary Provider: Nash Neal DO Advanced Inshore Undersea Warfare Officer:Chris Cuevas PA-C The exam and treatment you received in the Emergency Department were for an urgent problem and are not intended as complete care. It is important that you follow up with a doctor, nurse practitioner, or physician???s assistant front end manager for ongoing care. If your symptoms become worse or you do not improve as expected and you are unable to reach your usual health care provider, you should return to the Emergency Department. We are available 24 hours a day. NATHANIEL MARCIAL has been given the following list of patient education materials, prescriptions and follow-up instructions: Follow-up Instructions: With: Address: When: German Parekh [address] [place] [phone] Business (1) In 3 days 02/05/2025 In the event that this physician does not participate in your insurance network, please consult with your insurance company to find a nearby participating provider. Patient Education Materials: Rib Contusion A MESSAGE TO ALL PATIENTS REGARDING OPIOIDS PRESCRIPTION OPIOIDS: WHAT YOU NEED TO KNOW Prescription opioids can be used to help relieve navckcsp-bs-ozjfcx pain and are often prescribed following a [...] guidance from the Food and Drug Administration (www.fda.gov/Drugs/Res ourcesForYou). ??? Visit www.cdc.gov/drugoverdo se to learn about the risks of opioids abuse and overdose. ??? If you believe you may be struggling with addiction, tell your health long term acute care registered nurse and ask for yossi (more content not included)... Normal [facility] 36on 07-25-2024 36 Pt was in because of high pulse. BP 137/90 and pulse was 122. EKG was done. Normal [facility] Office Visiton 07-19-2024 Follow-up visit [id number] Jeny Marcial 1975 F Date Provider Department Center 07/19/2024 3848-BETH GUEVARA Family History Problem Relation Age of Onset Heart failure Mother Heart failure Father Transient ischemic attack Father Family Status - Relation Status Age at Mother Father Level of Service:[address] [place] OFFICE/OUTPATIENT ESTABLISHED MOD MDM [address] [facility] 36on 07-01-2024 36 Concerning low b/p [...] was coming in for something minor. Normal [facility] CHEMISTRYOrdered By: SYSTEM SYSTEM on 10-13-2023 [...] High 80.0 - 100.0 fL Remisol Heme [place] Absolute 0.6 E9/L Normal 0.2 - 1.0 [...] PM) Normal Negative [facility] UA Auto SS [place].plasma/Lithiu m.RBC (Bld) [Mass ratio] 0-3 /HPF Normal 0-3/HPF [...] [facility] UA Auto SS Urobilinogen Qn (U) [id number] {Arturo'U}/dL Normal 0.0 - 1.0 EU/dL [facility] UA Auto SS WBC Auto Ql (U) Negative (10/13/23 4:23 PM) Normal Negative [facility] UA Auto SS WBC LM.HPF (Urine sed) [#/Area] 0-5 /HPF Normal 0-5/HPF [facility] UA Auto SS CNPBreanne 05-11-2023 [facility]N [facility] NATHANIEL MARCIAL ([id number]) 1975 F Date Time Provider Department 05/11/23 [facility] During your visit today, we recorded the [...] Fully Assessed Reason for Visit: Patient Question [6701] Cmt: Offering patient surgical date. Prescriptions as of 05/11/2023 - ALPRAZolam (XANAX) 0.5 mg tablet Take 0.5 mg by mouth. - budesonide-formoterol (SYMBICORT) 160-4.5 mcg/actuation inhaler INHALE 2 [...] Encounter Status:Closed by MARCIE CHOU on 05/11/23 [facility] Telephone (ORQ) NATHANIEL MARCIAL ([id number]) 1975 F Date Time Provider Department 05/11/23 SHARITA MYERS ORQ During your visit today, we recorded the following information about you: Vinita Crabtree 05/11/2023 10:35 AM Signed Left VM and sent [employer] message to patient to see if she [...] tablet Take 0.5 mg by mouth. - budesonide-formoterol (SYMBICORT) 160-4.5 mcg/actuation inhaler INHALE 2 [...] Encounter Status:Closed by VINITA CRABTREE on 05/11/23 [facility] NATHANIEL MARCIAL ([id number]) 1975 F Date Time Provider Department 04/11/23 AURELIANO VANN PODITW During your visit today, we recorded the following information about you: Abi Montague 04/11/2023 12:06 PM Signed Patient states that [employer] is unable to send out bone stimulator due to incorrect verbiage in order. Please all Leigh Ann at [phone] to clarify Selina Villa 04/11/2023 1:21 PM [...] MA 04/12/2023 11:00 AM Signed Faxed to [phone] per below note. Thank you, MARTIN Angel Deborah 04/12/2023 1:29 PM Signed Leigh Ann calling back---everything was sent for the wrong ankle. Please call Leigh Ann at [phone] Aureliano Vann DPM 04/12/2023 2:51 PM Signed done Anne Mcnair Ma 04/12/2023 3:05 PM Signed Faxed. Peri [...] office said we can contact her at [phone] with any questions. Please contact patient or [...] 11:07 AM Addendum I noticed that in Alicias message she said that patient re-injured herself [...] Patient scheduled for Podiatry on 05/30 at [facility] Allergies As of Date: 04/11/2023 Noted Allergy Reaction LAMICTAL (LAMOTRIGINE) 03/30/2023 1 - Mental Status Change BACITRACIN 07/06/2004 VANCOMYCIN 05/16/2004 Date Reviewed: 04/10/2023 Reviewed by: Mirella Monae LPN - Fully Assessed Reason for Visit: Bone Stimulator Problem [Other] Orders [681] Prescriptions as of 05/17/2023 - ALPRAZolam (XANAX) 0.5 mg tablet Take 0.5 mg by mouth. - budesonide-formoterol (SYMBICORT) 160-4.5 mcg/actuation inhaler INHALE 2 [...] 30 M (more content not included)... Normal [facility] CNOVon 04-10-2023 CNOV Office Visit (MORH) NATHANIEL MARCIAL ([id number]) 1975 F Date Time Provider Department 04/10/23 [...] As you know she is a 47-year-old jdgh-kkkh-epthsbtb female with complaints in her shoulder that [...] Negative ENDOCRINE: Negative EYES: Negative PSYCHIATRIC: Negative HEMATOLOGIC/IMMUNOLOGI C: Negative MUSCULOSKELETAL: See HPI OBJECTIVE There were [...] rotation i (more content not included)... Normal [facility] XR SHLDR >/=3V AP/PIEDAD AP/OTH R [...] Collapse of the humeral head as described. Contract Officer: PSCB Transcribe Date/Time: Apr 13 2023 4:03P Dictated by : PAUL REED MD This examination was interpreted and the report reviewed and electronically signed by: PAUL REED MD on Apr 13 2023 4:04PM EST [id number] [facility] 03-30-2023 CNOV Office Visit (ORTHMN ) NATHANIEL MARCIAL ([id number]) 1975 F Date Time Provider Department 03/30/23 [...] seen Dr. Nate Gavin with [facility] in [place] and ordered a MRI of her shoulder [...] Pain Level: 8 Pain Location: Shoulder-Right Description: Aching;Burning;Crampin g;Dull;Itching;Radiati ng;Sharp;Shooting;Sore ;Spasm; Stabbing;Stiffness;Thr obbing;Tightness Duration Amount of Time: -- 1.5 - 2 months Duration Units: Months Frequency: Continuous Intervention/Comfort measure: Medication;Reposition; Cold;Heat HPI TREATMENTS PRIOR TO INITIAL CONSULT: Oral [...] belly press test. Positive speeds test. Positive [place]'s test. Positive impingement signs (more content not included)... Normal [facility] CNOVon 03-27-2023 CNOV Office Visit (PODIMN ) NATHANIEL MARCIAL ([id number]) 1975 F Date Time Provider Department 03/27/23 12:15 PM SOO, AURELIANO PODIMN During your visit today, we recorded the following information about you: Aureliano Vann CARISAPrerna 04/18/2023 10:09 AM Addendum SERVICE DATE: March [...] dry 1-4 Nails 1-5 b/l appear normal. Musculoskeletal/Orthop aedic: Allodynia noted to the L ankle on [...] Plan: - (more content not included)... Normal [facility] XR ANKLE 3V AP/LAT/OBL LTon 03-27-2023 [...] posterior calcaneal spur. No other significant abnormality. - IMPRESSION: POSTOPERATIVE FINDINGS DESCRIBED SEVERE OSTEOPENIA OF THE LEFT ANKLE AND FOOT WHICH MAY RELATED TO DISUSE AND/OR HYPEREMIA. Contract Officer: MAX Transcribe Date/Time: Mar 27 2023 12:44P Dictated by : KENDALL GUTIERREZ MD This examination was interpreted and the report reviewed and electronically signed by: KENDALL GUTIERREZ MD on Mar 27 2023 12:45PM EST [id number] Normal [facility] XR ANKLE GENERAL 3V AP/LAT/O BL LEFTon 03-27-2023 [facility] Progress Noteson 01-11-2023 Charge Lpn Authentication Interface Message Text EMERGENCY TRIAGE, TREAT AND TRANSPORT (ET3) DOCUMENTATION OF TELEHEALTH VISIT Date / Time: 01/11/2023 0515 Name: Nathaniel Marcial : 1975 SSN: [id number] EMS Agency: [facility] [x] Verbal consent obtained [...] Completed by: Jarred Rosado MD Normal [facility] CHEMISTRYOrdered By: SYSTEM SYSTEM on 11-12-2022 [...] rate/Area] mL/min/1.73 m2 Normal >=59mL/min/1 .73 m2 [facility] Chem S GFR/1.73 sq M.predicted among non-blacks MDRD (S/P/Bld) [Vol rate/Area] 59 mL/min/1.73 m2 Normal >=59mL/min/1 .73 m2 [facility] S Glucose [Mass/Vol] 97 mg/dL Normal [...] Normal 0.0 - 8.0 % [facility] HemeAutoSS Eosinophils/Leukocyte s Auto (Bld) [Pure # fraction] 0.1 E9/L Normal 0.0 - 0.5 E9/L [facility] HemeAutoSS Lymphocytes/100 WBC (Bld) 31.4 % Normal 14.0 - 50.0 % [facility] HemeAutoSS Lymphocytes/Leukocyte s Auto (Bld) [Pure # fraction] 2.4 E9/L Normal 1.0 - 4.0 E9/L [facility] HemeAutoSS Monocytes/100 WBC (Bld) 7.8 % Normal 4.0 - 14.0 % [facility] HemeAutoSS Monocytes/Leukocytes Auto (Bld) [Pure # fraction] 0.6 E9/L Normal 0.2 - 1.0 E9/L [facility] HemeAutoSS Neutrophils/100 WBC (Bld) 59.1 % Normal 36.0 - 75.0 % [facility] HemeAutoSS Neutrophils/Leukocyte s Auto (Bld) [Pure # fraction] 4.5 E9/L [...] 7.7 E9/L Normal 4.0 - 11.0 E9/L [facility] Liza Presley 07-28-2022 CNOV Office Visit (MARCO ANTONIO ) NATHANIEL MARCIAL ([id number]) 1975 F Date Time Provider Department 07/28/22 [...] Signed GENERAL SURGERY CLINIC NOTE Nathaniel Marcial [id number] HPI: Nathaniel Marcial is a 46 year [...] not recall but is following with a pitching coach in 1 week. O: BP 125/89 Pulse [...] Cellulitis [L03. (more content not included)... Normal [facility] OVA AND PARASITE EXAMINATION on 05-18-2022 Ova + Parasite Exam Final report Normal [facility] Comment on above: Result Comment: Thes e results were obtained using wet preparation(s) and trichrome stained smear. This test does not include testing for Cryptosporidium parvum, Cyclospora, or Microsporidia. Performed By: #### O VAPE #### [facility] [address] [address] [address] Jemima Paul Result 1 Comment Normal [facility] Comment on above: Result Comment: No o va, cysts, or parasites seen. . One negative specimen does not rule out the possibility of a parasitic infection. Performed By: #### O VAPE #### [facility] [address] [address] [address] Jemima Paul LACTOFERRIN FECAL QUANTon Lactoferrin, Fecal, Quant. <1.00 Normal 0.00-7.24 [facility] Comment on above: Result Comment: Re sults [...] (IBS). Performed By: #### L ACTFQ #### [facility] [address] [place] [address] Dr. Jemima Paul STOOL CULTUREon 05-16-2022 Campylobacter Culture Final report Normal [facility] Comment on above: Performed By: #### C XSTOOL #### [facility] [address] [place] [address] Dr. Jemima Paul E coli Shiga Toxin EIA Negative Normal Negative [facility] Comment on above: Performed By: #### C XSTOOL #### [facility] [address] [place] [address] Dr. Jemima Paul Result 1 Comment Normal [facility] Comment on above: Result Comment: No S almonella or Shigella recovered. Performed By: #### C XSTOOL #### [facility] [address] [place] [address] Dr. Jemima Paul Result Comment: No C ampylobacter species isolated. Salmonella/Shigella Screen Final report Normal [facility] Comment on above: Performed By: #### C XSTOOL #### [facility] [address] [place] [address] Dr. Jemima Paul C. DIFF PCRon 05-11-2022 C. DIFFICILE PCR Negative Normal NEGATIVE [facility] Comment on above: Performed By: #### C DIFPOC #### [facility] [address] [place] [address] Dr. Jemima Paul CBC AUTO DIFFon 03-17-2022 BASO # 0.1 103/ul Normal 0.0-0.1 [facility] Comment on above: Performed By: #### C BC #### [facility] [address] [address] [address] Jemima Paul Basophils/100 WBC (Bld) 1.0 % Normal 0.2-2.0 [facility] Comment on above: Performed By: #### C BC #### [facility] [address] [address] [address] Jemima Paul EO # 0.2 103/ul Normal 0.0-0.7 [facility] Comment on above: Performed By: #### C BC #### [facility] [address] [address] [address] Jemima Paul Eosinophils/100 WBC (Bld) 3.0 % Normal 0.9-7.0 [facility] Comment on above: Performed By: #### C BC #### [facility] [address] [place] [address] Dr. Jemima Paul Erythrocyte distribution width (RBC) [Ratio] 12.4 % Normal 11.0-15.0 [facility] Comment on above: Performed By: #### C BC #### [facility] [address] [place] [address] Dr. Jemima Paul Hematocrit (Bld) [Volume fraction] 43.4 % Normal 36.0-48.0 [facility] Comment on above: Performed By: #### C BC #### [facility] [address] [place] [address] Dr. Jemima Paul Hemoglobin (Bld) [Mass/Vol] 14.8 g/dL Normal 12.0-16.0 [facility] Comment on above: Performed By: #### C BC #### [facility] [address] [place] [address] Dr. Jemima Paul IG # 0.04 10e3/ul Critically high 0.00-0.03 [facility] Comment on above: Performed By: #### C BC #### [facility] [address] [address] [address] Jemima Paul IG % 0.6 % Critically high 0.0-0.5 [facility] Comment on above: Performed By: #### C BC #### [facility] [address] [address] [address] Jemima Paul LYMPH # 3.1 103/ul Normal 1.2-3.8 [facility] Comment on above: Performed By: #### C BC #### [facility] [address] [address] [address] Jemima Paul Lymphocytes/100 WBC (Bld) 44.9 % Normal 20.5-60.0 [facility] Comment on above: Performed By: #### C BC #### [facility] [address] [address] [address] Jemima Paul MANUAL DIFF REQ NO Normal [facility] Comment on above: Performed By: #### C BC #### [facility] [address] [place] [address] Dr. Jemima Paul MCH (RBC) [Entitic mass] 36.2 pg Critically high 26.7-34.0 [facility] Comment on above: Performed By: #### C BC #### [facility] [address] [place] [address] Dr. Jemima Paul MCHC (RBC) [Mass/Vol] 34.1 g/dL Normal 29.9-35.2 [facility] Comment on above: Performed By: #### C BC #### [facility] [address] [place] [address] Dr. Jemima Paul MCV (RBC) [Entitic vol] 106.1 fL Critically high 81.0-99.0 [facility] Comment on above: Performed By: #### C BC #### [facility] [address] [place] [address] Dr. Jemima Paul MONO # 0.4 103/ul Normal 0.3-0.8 [facility] Comment on above: Performed By: #### C BC #### [facility] [address] [place] [address] Dr. Jemima Paul Monocytes/100 WBC (Bld) 6.2 % Normal 1.7-12.0 [facility] Comment on above: Performed By: #### C BC #### [facility] [address] [address] [address] Jemima Paul NEUT # 3.1 103/ul Normal 1.4-6.5 [facility] Comment on above: Performed By: #### C BC #### [facility] [address] [place] [address] Dr. Jemima Paul Neutrophils/100 WBC (Bld) 44.3 % Normal 43.0-75.0 [facility] Comment on above: Performed By: #### C BC #### [facility] [address] [place] [address] Dr. Jemima Paul Platelet mean volume (Bld) [Entitic vol] 8.3 fL Critically low 9.5-13.5 [facility] Comment on above: Performed By: #### C BC #### [facility] [address] [place] [address] Dr. Jemima Paul PLT 288 103/ul Normal 150-450 [facility] Comment on above: Performed By: #### C BC #### [facility] [address] [place] [address] Dr. Jemima Paul RBC 4.09 106/ul Critically low 4.20-5.40 [facility] Comment on above: Result Comment: TEAR DROP CELLS 3+, MACROCYTOSIS 3+ Performed By: #### C BC #### [facility] [address] [place] [address] Dr. Jemima Paul WBC 7.0 103/ul Normal 4.0-11.0 [facility] Comment on above: Performed By: #### C BC #### [facility] [address] [place] [address] ABD/PELV W CONon [...] HELENA ANDERSEN Date: 2022-03-17 00:46 Normal [facility] PROF CHEM 8 (BAS METB)on Anion gap [Moles/Vol] 14.6 mmol/L Normal [facility] Comment on above: Performed By: #### B MP #### [facility] [address] [address] [address] Jemima Paul Calcium [Mass/Vol] 8.6 mg/dL Normal 8.5-10.1 [facility] Comment on above: Performed By: #### B MP #### [facility] [address] [address] [address] Jemima Paul Chloride [Moles/Vol] 100 mmol/L Normal 98-107 [facility] Comment on above: Performed By: #### B MP #### [facility] [address] [address] [address] Jemima Paul CO2 [Moles/Vol] 24.3 mmol/L Normal 21.0-32.0 [facility] Comment on above: Performed By: #### B MP #### [facility] [address] [address] [address] Jemima Paul Creatinine [Mass/Vol] 0.99 mg/dL Normal 0.55-1.02 [facility] Comment on above: Performed By: #### B MP #### [facility] [address] [address] [address] Jemima Paul EGFR-AF TANZANIAN >60 Normal >=60 [facility] Comment on above: Performed By: #### B MP #### [facility] [address] [address] [address] Jemima Paul EGFR-NON AF TANZANIAN 60 mL/min/1.73m2 Normal >=60 [facility] Comment on above: Performed By: #### B MP #### [facility] [address] [address] [address] Jemima Paul Glucose [Mass/Vol] 108 mg/dL Critically high 74-106 T [facility] Comment on above: Performed By: #### B MP #### [facility] [address] [address] [address] Jemima Paul Potassium [Moles/Vol] 3.9 mmol/L Normal 3.5-5.1 [facility] Comment on above: Performed By: #### B MP #### [facility] [address] [address] [address] Jemima Paul Sodium [Moles/Vol] 135 mmol/L Critically low 136-145 Th [facility] Comment on above: Performed By: #### B MP #### [facility] [address] [address] [address] Jemima Paul Urea nitrogen [Mass/Vol] 11.0 mg/dL Normal 7.0-18.0 [facility] Comment on above: Performed By: #### B MP #### [facility] [address] [address] [address] Jemima Paul Urea nitrogen/Creatinine [Mass ratio] 11.1 mg/mg Normal [facility] Comment on above: Performed By: #### B MP #### [facility] [address] [address] [address] Jemima Paul Large Joint Arthro/Inj: R gl enohumeral [facility] Vital Signs Date Time Vital Sign Value Performing Clinician Facility 02-02-2025 18:35-0400 Body temperature 97.88 [degF] SKURA [facility] 02-02-2025 18:35-0400 Diastolic blood pressure 98 mm[Hg] Kaylinn Dokken [facility] 02-02-2025 18:35-0400 Heart rate 97 /min Ellynn Liviaen [facility] 02-02-2025 18:35-0400 Respiratory rate 18 /min Rebeccainn Dokken [facility] 02-02-2025 18:35-0400 SaO2% (BldA) [Mass fraction] 97 % Ellynn Dokken [facility] 02-02-2025 18:35-0400 Systolic blood pressure 160 mm[Hg] Ellynn Dokken [facility] 11-26-2023 19:43-0500 Body temperature 98.42 [degF] Antonio Lenard [facility] 11-26-2023 19:43-0500 Diastolic blood pressure 75 mm[Hg] Antonio Lenard [facility] 11-26-2023 19:43-0500 Heart rate 111 /min Antonio Lenard [facility] 11-26-2023 19:43-0500 Respiratory rate 16 /min Antonio Lenard [facility] 11-26-2023 19:43-0500 SaO2% (BldA) [Mass fraction] 95 % Antonio Lenard [facility] 11-26-2023 19:43-0500 Systolic blood pressure 125 mm[Hg] Antonio Lenard [facility] 10-13-2023 18:29-0500 Diastolic blood pressure 89 mm[Hg] Bashir Evaristo [facility] 10-13-2023 18:29-0500 Heart rate 71 /min Bashir Evaristo [facility] 10-13-2023 18:29-0500 Mean blood pressure 107 mm[Hg] Bashir Evaristo [facility] 10-13-2023 18:29-0500 Respiratory rate 18 /min Bashir Evaristo [facility] 10-13-2023 18:29-0500 SaO2% (BldA) [Mass fraction] 97 % Bashir Evaristo [facility] 10-13-2023 18:29-0500 Systolic blood pressure 143 mm[Hg] Bashir Evaristo [facility] 10-13-2023 15:52-0500 Body temperature 98.24 [degF] Bashir Loera [facility] 10-13-2023 15:52-0500 Diastolic blood pressure 91 mm[Hg] Bashir Loera [facility] 10-13-2023 15:52-0500 Heart rate 88 /min Bashir Evaristo [facility] 10-13-2023 15:52-0500 Respiratory rate 18 /min Bashir Loera [facility] 10-13-2023 15:52-0500 SaO2% (BldA) [Mass fraction] 96 % Bashir Loera [facility] 10-13-2023 15:52-0500 Systolic blood pressure 158 mm[Hg] Bashir Evaristo [facility] 03-30-2023 10:59-0400 Body height 149.9 cm [employer] Work Phone: [facility] 03-30-2023 10:59-0400 Body weight 58.97 kg Snowman PA-C Work Phone: [facility] 01-31-2023 11:00-0400 Heart rate 89 /min Eren Keyla [facility] 01-31-2023 11:00-0400 Respiratory rate 16 /min Eren Jenningse [facility] 01-31-2023 10:04-0400 Hourly Rounding Eren Jenningse [facility] 01-31-2023 10:04-0400 Promise to Return Eren Jenningse [facility] 01-31-2023 10:03-0400 Diastolic blood pressure 83 mm[Hg] Eren Keyla [facility] 01-31-2023 10:03-0400 Heart rate 91 /min Eren Jenningse [facility] 01-31-2023 10:03-0400 Mean blood pressure 98 mm[Hg] Eren Keyla [facility] 01-31-2023 10:03-0400 Respiratory rate 20 /min Eren Jenningse [facility] 01-31-2023 10:03-0400 SaO2% (BldA) [Mass fraction] 99 % Eren Keyla [facility] 01-31-2023 10:03-0400 Systolic blood pressure 127 mm[Hg] Eren Keyla [facility] 01-31-2023 09:40-0400 Body temperature 98.24 [degF] Eren Keyla [facility] 01-31-2023 09:40-0400 Diastolic blood pressure 86 mm[Hg] Eren Keyla [facility] 01-31-2023 09:40-0400 Heart rate 94 /min Eren Keyla [facility] 01-31-2023 09:40-0400 Hourly Rounding Eren Ramires [facility] 01-31-2023 09:40-0400 Promise to Return Eren Ramires [facility] 01-31-2023 09:40-0400 Respiratory rate 18 /min Eren Ramires [facility] 01-31-2023 09:40-0400 SaO2% (BldA) [Mass fraction] 98 % Eren Ramires [facility] 01-31-2023 09:40-0400 Systolic blood pressure 133 mm[Hg] Eren Ramires [facility] 11-12-2022 17:25-0500 Hourly Rounding Nate Gavin [facility] 11-12-2022 17:25-0500 Promise to Return Nate Gavin [facility] 11-12-2022 16:58-0500 Heart rate 70 /min Nate Brown [facility] 11-12-2022 16:58-0500 SaO2% (BldA) [Mass fraction] 97 % Nate Brown [facility] 11-12-2022 16:57-0500 Body temperature 97.52 [degF] Nate Brown [facility] 11-12-2022 16:57-0500 Diastolic blood pressure 85 mm[Hg] Nate Brown [facility] 11-12-2022 16:57-0500 Mean blood pressure 98 mm[Hg] Nate Brown [facility] 11-12-2022 16:57-0500 Systolic blood pressure 122 mm[Hg] Nate Brown [facility] 11-12-2022 16:25-0500 Hourly Rounding Nate Gavin [facility] 11-12-2022 16:25-0500 Promise to Return Nate Gavin [facility] 11-12-2022 16:00-0500 Respiratory rate 15 /min Nate Gavin [facility] 11-12-2022 15:16-0500 Hourly Rounding Nate Gavin [facility] 11-12-2022 15:16-0500 Promise to Return Nate Gavin [facility] 11-12-2022 11:45-0500 Body temperature 97.34 [degF] Nate Gavin [facility] 11-12-2022 11:45-0500 Diastolic blood pressure 85 mm[Hg] Nate Brown [facility] 11-12-2022 11:45-0500 Heart rate 79 /min Nate Brown [facility] 11-12-2022 11:45-0500 Mean blood pressure 93 mm[Hg] Nate Gavin [facility] 11-12-2022 11:45-0500 Respiratory rate 14 /min Nate Gavin [facility] 11-12-2022 11:45-0500 SaO2% (BldA) [Mass fraction] 96 % Nate Gavin [facility] 11-12-2022 11:45-0500 Systolic blood pressure 110 mm[Hg] Nate Brown [facility] 11-12-2022 11:35-0500 Diastolic blood pressure 60 mm[Hg] Nate Brown [facility] 11-12-2022 11:35-0500 Heart rate 61 /min Nate Gavin [facility] 11-12-2022 11:35-0500 Mean blood pressure 71 mm[Hg] Nate Gavin [facility] 11-12-2022 11:35-0500 Respiratory rate 16 /min Nate Gavin [facility] 11-12-2022 11:35-0500 Systolic blood pressure 92 mm[Hg] Nate Gavin [facility] 11-12-2022 11:30-0500 Mean blood pressure 69 mm[Hg] Nate Gavin [facility] 11-12-2022 11:30-0500 Respiratory rate 18 /min Nate Gavin [facility] 11-12-2022 11:20-0500 Body temperature 97.34 [degF] Nate Gavin [facility] 11-12-2022 11:15-0500 Respiratory rate 11 /min Nate Gavin [facility] 11-12-2022 11:10-0500 Respiratory rate 13 /min Nate Gavin [facility] 11-12-2022 07:01-0500 Body temperature 96.8 [degF] Nate Gavin [facility] 11-12-2022 07:01-0500 Heart rate 73 /min Nate Gavin [facility] 11-12-2022 06:46-0500 Body temperature 96.8 [degF] Nate Gavin [facility] 11-12-2022 06:46-0500 Heart rate 69 /min Nate Gavin [facility] 07-28-2022 10:58-0400 Body height 149.9 cm Ronan Cabello MD Work Phone: [place] [address]-03-2022 10:58-0400 Body temperature 97.81 [degF] Ronan Cabello MD Work Phone: [facility] 07-28-2022 10:58-0400 Body weight 57.15 kg Ronan Cabello MD Work Phone: [facility] 07-28-2022 10:58-0400 Diastolic blood pressure 89 mm[Hg] Ronan Cabello MD Work Phone: [facility] 07-28-2022 10:58-0400 Heart rate 90 /min Ronan Cabello MD Work Phone: [facility] 07-28-2022 10:58-0400 Respiratory rate 12 /min Ronan Cabello MD Work Phone: [facility] 07-28-2022 10:58-0400 Systolic blood pressure 125 mm[Hg] Ronan Cabello MD Work Phone: [facility] 05-04-2022 14:00-0400 Body height 152.4 cm Gale Trajay Other [employer] Other 05-04-2022 14:00-0400 Body mass index (BMI) [Ratio] 25.97 kg/m2 Gale Vasquez Other [employer] Other 05-04-2022 14:00-0400 Body weight 60.33 kg Gale Trajay Other [employer] Other 05-04-2022 14:00-0400 Diastolic blood pressure 86 mm[Hg] Gale Vasquez Other [employer] Other 05-04-2022 14:00-0400 Respiratory rate 20 /min Gale Vasquez Other [employer] Other 05-04-2022 14:00-0400 Systolic blood pressure 130 mm[Hg] Gale Vasquez Other [facility] [employer] Other 03-31-2022 12:03-0400 Body temperature 98.06 [degF] [...] Diastolic blood pressure 77 mm[Hg] Kofi Gray [facility] 01-01-2022 19:52-0400 Heart rate 97 /min Kofi Gray [facility] 01-01-2022 19:52-0400 Respiratory rate 18 /min Kofi Gray [facility] 01-01-2022 19:52-0400 SaO2% (BldA) [Mass fraction] 97 % Kofi Gray [facility] 01-01-2022 19:52-0400 Systolic blood pressure 113 mm[Hg] Kofi Gray [facility] 01-01-2022 16:50-0400 Body temperature 98.42 [degF] Kofi Gray [facility] 01-01-2022 16:50-0400 Diastolic blood pressure 88 mm[Hg] Kofi Gray [facility] 04-09-2022 16:50-0400 Heart rate 126 /min Kofi Castellano [facility] 01-01-2022 16:50-0400 Respiratory rate 18 /min Kofi Castellano [facility] 01-01-2022 16:50-0400 SaO2% (BldA) [Mass fraction] 97 % Kofi Castellano [facility] 01-01-2022 16:50-0400 Systolic blood pressure 153 mm[Hg] Kofi Castellano [facility] Encounters Encounter Date Encounter Type Care Provider Facility Start: 05-20-2026 ambulatory German C Link Facility:[facility] Start: 06-13-2025 ambulatory German C Link Facility:[facility] Start: 06-13-2025 End: 06-13-2025 Patient encounter procedure German C Link [facility] Start: 06-10-2025 End: 06-10-2025 ambulatory German C Link Facility:[facility] Start: 06-10-2025 End: 06-10-2025 Patient encounter procedure German C Link [facility] Start: 06-05-2025 End: 06-05-2025 Emergency department patient visit Saul Palmer Facility:[facility] Start: 06-03-2025 End: 06-03-2025 ambulatory XXXX NONE Facility:[facility] Start: 05-28-2025 End: 05-28-2025 ambulatory Beth Quinones Facility:[facility] Start: 05-28-2025 End: 05-28-2025 Patient encounter procedure Beth Quinones [facility] Start: 05-23-2025 ambulatory German Link Facility:[facility] Start: 05-23-2025 End: 05-23-2025 Well adult monitoring check done German C Link [facility] Start: 05-23-2025 End: 05-23-2025 ambulatory German C Link Facility:[facility] Start: 05-23-2025 End: 05-23-2025 Patient encounter procedure German C Link [facility] Start: 05-02-2025 End: 05-02-2025 ambulatory German C Link Facility:[facility] Start: 05-02-2025 End: 05-02-2025 Patient encounter procedure German C Link [facility] Start: 04-22-2025 ambulatory German Link Facility: [facility] Start: 04-22-2025 End: 04-22-2025 ambulatory German C Link Facility:[facility] Start: 04-22-2025 End: 04-22-2025 Patient encounter procedure German C Link [facility] Start: 04-21-2025 End: 04-21-2025 ambulatory German C Link Facility:[facility] Start: 04-15-2025 ambulatory Jaspreet Cortez Facility:[facility] Start: 03-18-2025 End: 03-18-2025 ambulatory German C Link Facility:[facility] Start: 03-18-2025 End: 03-18-2025 Patient encounter procedure German C Link [facility] Start: 03-04-2025 End: 03-04-2025 Transcribe Orders German C Link DO Work Phone: Referring Physician Comment on above: C. difficile enterit is (Primary Dx) Start: 02-27-2025 End: 02-27-2025 ambulatory German C Link Facility:[facility] Start: 02-27-2025 End: 02-27-2025 Patient encounter procedure German C Link [facility] Start: 02-20-2025 End: 02-20-2025 ambulatory [facility] Start: 02-05-2025 End: 02-05-2025 ambulatory [facility] Start: 02-04-2025 End: 02-04-2025 ambulatory [facility] M[facility] Facility:[facility] Start: 02-02-2025 End: 02-02-2025 Emergency department patient visit Nash Neal [facility] Start: 12-21-2024 End: 12-22-2024 Kimberlee Medina MD Work Phone: [facility] Comment on above: Other constipation; Generalized abdominal pain Start: 11-16-2024 End: 11-17-2024 Kimberlee Medina MD Work Phone: [facility] Comment on above: Other osteoporosis w ithout current pathological fracture (CMS/HCC) Start: 07-19-2024 End: 07-19-2024 ambulatory [facility] Start: 11-26-2023 End: 11-26-2023 Emergency department [facility] [facility] Start: 10-17-2023 End: 10-17-2023 ambulatory GRACY MEDINA Not Available Start: 10-13-2023 End: 10-13-2023 Emergency department patient visit Bashir Loera [facility] Start: 10-13-2023 End: 10-13-2023 ambulatory DAVID LEON Not Available Start: 08-30-2023 End: 08-30-2023 Patient encounter procedure DAVID LEON [facility] Start: 08-29-2023 End: 08-29-2023 ambulatory DAVID Alejo CAROLYN Not Available Start: 05-31-2023 End: 05-31-2023 Patient encounter procedure Gracy Medina [facility] Start: 05-11-2023 Telephone encounter Sharita greenberg MD Work Phone: [facility] [place] Comment on above: Schedule Surgery Patient Question (Of fering patient surgical date.) Start: 04-10-2023 End: 04-10-2023 ambulatory GRACY MEDINA Facility:[facility] Start: 04-10-2023 End: 04-10-2023 Patient encounter procedure Sharita Myers MD Work Phone: [facility] Comment on above: 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) (Primary Dx) Start: 03-30-2023 End: 03-30-2023 ambulatory No Pcp [facility] [place] Start: 03-30-2023 End: 03-30-2023 Patient encounter procedure Verónica Duarte PA-C Work Phone: Orthopaedics Comment on above: 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) (Primary Dx); Incomplete tear of right rotator cuff, unspecified whether traumatic; Biceps tendonitis on right Start: 03-27-2023 End: 03-27-2023 ambulatory SELF Facility:[facility] Start: 03-27-2023 End: 03-27-2023 Patient encounter [...] End: 02-06-2023 Patient encounter procedure Nate Gavin [facility] Start: 01-31-2023 End: 01-31-2023 Emergency department patient visit Eren Ramires [facility] Start: 01-11-2023 End: 01-18-2023 ambulatory UNKNOWN PROVIDER Facility:[facility] Start: 12-13-2022 End: 12-13-2022 ambulatory Sadiq Wilson Other [employer] Other Start: 12-13-2022 Telephone encounter Sadiq PALACIOS [facility] Start: 11-15-2022 End: 11-16-[address] TK LEVI . Facility:[facility] Start: 11-12-2022 End: 11-12-2022 Observation Nate Gavin [facility] Start: 08-02-2022 End: 08-02-[address] MISTY BENITEZ . Facility:[facility] Start: 07-28-2022 End: 07-29-2022 ambulatory GRACY MEDINA Facility:[facility] Start: 07-28-2022 End: 07-28-2022 Patient encounter procedure Ronan Cabello MD Work Phone: General Surgery Comment on above: Incisional hernia, w ithout obstruction or gangrene (Primary Dx) Start: 05-17-[address] AGUS LEON . Faci lity:[facility] Start: 05-11-2022 End: 05-12-2022 ambulatory GALE VASQUEZ JR Facility:[facility] Start: 05-04-2022 End: 05-04-2022 ambulatory Gale Vasquez Other [employer] Other Start: 05-04-2022 Office outpatient visit 25 minutes Gale GOLDEN [facility] Start: 04-18-2022 End: 04-27-2022 ambulatory HIEN MEDINA Facility: Start: 03-31-2022 End: 03-31-2022 Emergency department patient visit Gloria Rosen [facility] Start: 03-24-2022 End: 03-24-2022 Patient encounter procedure Gracy Medina [facility] Start: 03-16-2022 End: 03-17-2022 ambulatory HIEN MEDINA Facility: Start: 01-01-2022 End: 01-01-2022 Emergency department patient visit Kofi Castellano [facility] Start: 03-29-2018 End: 03-30-2018 Ambulatory DEFAULT PHYSICIAN Facility:[facility] Procedures Date Procedure Procedure Detail Performing Clinician Start: 03-30-2023 Arthrocentesis aspir &/inj major jt/bursa w/o us Verónica Duarte PA-C Work Phone: Start: 03-27-2023 Radex ankle complete minimum 3 views Aureliano Soo DPM Work Phone: Start: 04-20-2022 Mammography Gracy adkins MD Work Phone: Start: 04-15-2019 Colonoscopy Gracy adkins MD Work Phone: Appendectomy Kofi Castellano x2 Kofi Castellano Colonoscopy Kofi Castellano Hysterectomy Kofi Castellano Repair of recurrent inguinal hernia German Sheehan Comment on above: multiple spine surgery for scoliosis Kofi Castellano Plan of Treatment Date Care Activity Detail Author Start: 08-02-2032 Urine microalbumin profile DTaP,Tdap,Td Vaccine (3 - Td or Tdap) [facility] Start: 04-15-2029 Screening for malign ant neoplasm of colon [facility] Start: 05-26-2025 Influenza vaccination Influenz a Vaccine (Season Ended) [facility] Start: 2024 Shingrix Vaccine (1 of 2) Shingrix Vaccine (1 of 2) [facility] Start: 05-26-2024 Covid-19 Vaccine ( season) Covid-19 Vaccine ( season) [facility] Start: 05-26-2024 Influenza vaccination Influenza Vacc ine (#1) [facility] Start: 04-18-2024 DIABETES SCREEN DIAB[facility]CREEN [facility] Start: 04-18-2024 Diabetes Screening Diabetes Screenin g [facility] Start: 06-23-2023 Medicare Annual Well ness (AWV) Medicare Annual Wellness (AWV) [facility] Start: 05-26-2023 Influenza vaccination C [facility] Start: 04-20-2023 Screening for malign ant neoplasm of breast Mammogram [facility] Start: 09-25-2022 [facility]MENT [facility] Start: 05-26-2022 Influenza vaccination INFLUENZA (#1) [facility] Start: 09-25-2021 DEPRESSION ASSESSMENT DEPRESSION ASS ESSMENT [facility] Start: 04-05-2021 COVID-19 VACCINE (3 - Booster for Pfizer series) COVID-19 VACCINE (3 - Booster for Pfizer series) [facility] Start: 04-05-2021 COVID-19 VACCINE (3 - Pfizer series) COVID-19 VACCINE (3 - Pfizer series) [facility] Start: 08-06-2020 PNEUMOCOCCAL (2 - PCV) PNEUMOCOCCAL (2 - PCV) [facility] Start: 08-06-2020 Pneumococcal Vaccine : 50+ (2 of 2 - PCV) Pneumococcal Vaccine: 50+ (2 of 2 - PCV) [facility] Start: 2019 COLOGUARD (FIT-DNA) COLOGUARD (FIT-D NA) [facility] Start: 2019 Colonoscopy COLONOSCOPY [facility] Start: 2019 COLORECTAL CANCER SCREENING COLORECTAL CANCER SCREENING [facility] Start: [address] [facility]HY [facility] Start: 2019 FECAL OCCULT BLOOD FECAL OCCULT BLOO D [facility] Start: 2019 Lipid panel Lipid Screening [facility] Start: 2019 LIPID SCREEN LIPID SCREEN [facility] Start: 2019 Screening for malign ant neoplasm of colon [facility] Start: 2019 SIGMOIDOSCOPY SIGMOIDOSCOPY [facility] Start: 2014 Mammography MAMMOGRAM [facility] Start: 2014 Screening for malign ant neoplasm of breast Mammogram Screening [facility] Start: 2004 HPV TESTING HPV TESTING [facility] Start: 1995 PAP TESTING PAP TESTING [facility] Start: 1995 Screening for malign ant neoplasm of cervix Cervical Cancer Screening [facility] Start: 1993 Hepatitis B Vaccine (1 of 3 - 19+ 3-dose series) Hepatitis B Vaccine (1 of 3 - 19+ 3-dose series) [facility] Start: 1993 Urine microalbumin profile DTAP,TDAP,TD (1 - Tdap) [facility] Start: 1992 Anxiety Screening Anxiety Screening [facility] Start: 1992 Depression Screening Depression Scre ening [facility] Start: 1974 HEPATITIS B (1 of 3 - 3-dose series) HEPATITIS B (1 of 3 - 3-dose series) [facility] Start: 1974 Screening for malign ant neoplasm of colon [facility] End: 03-27-2024 PVR LEG UNL VAS LAB PVR LEG [facility] Vascular Lab Routine PAD (peripheral artery disease) (HCC) 1 Occurrences starting 03/27/2023 until 03/27/2024 [facility] Work Phone: Comment on above: 1 Occurrences starti ng 03/27/2023 until 03/27/2024 End: 04-06-2024 XR ANKLE GENERAL 3V AP/LAT/OBL LEFT XR ANKLE GENERAL 3V AP/LAT/OBL LEFT Radiology Routine Pain 1 Occurrences starting 03/08/2023 until 04/06/2024 [facility] Work Phone: Comment on above: 1 Occurrences starti ng 03/08/2023 until 04/06/2024 End: 05-09-2024 XR SHOULDER GENERAL 3V OR MORE AP/TRUE AP/OTHER RIGHT XR SHOULDER GENERAL 3V OR MORE AP/TRUE AP/OTHER RIGHT Radiology Routine 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) 1 Occurrences starting 04/10/2023 until 05/09/2024 [facility] Work Phone: Comment on above: 1 Occurrences starti ng 04/10/2023 until 05/09/2024 XR SHOULDER GENERAL 3V OR MORE AP/TRUE AP/OTHER RIGHT XR SHOULDER GENERAL 3V OR MORE AP/TRUE AP/OTHER RIGHT Radiology Routine 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) 04/10/2023 12:24 PM EDT [facility] Work Phone: [facility] Immunizations Immunization Date Immunization Notes Care Provider Fa cili 08-02-2022 diphtheria, tetanus toxoids and pertussis vaccine Gracy Medina MD Work Phone: [facility] 08-02-2022 tetanus toxoid, redu garth diphtheria toxoid, and acellular pertussis vaccine, adsorbed Gracy Medina MD Work Phone: [facility] 02-08-2021 COVID-19 original vaccine, age 12+ yr, monovalent (PFIZER-BIONTECH - PURPLE TOP) Ronan Cabello MD Work Phone: [facility] 01-18-2021 COVID-19 original vaccine, age 12+ yr, monovalent (PFIZER-BIONTECH - PURPLE TOP) Ronan Cabello MD Work Phone: [facility] 08-06-2019 pneumococcal polysaccharide vaccine, 23 valent Ronan Cabello MD Work Phone: [facility] 06-10-2019 seasonal influenza, intradermal, preservative free Ronan Cabello MD Work Phone: [facility] 06-10-2019 influenza virus vacc ine, unspecified formulation Gracy Medina MD Work Phone: [facility] [place] 06-25-2015 influenza virus vacc ine, unspecified formulation Ronan Cabello MD Work Phone: [facility] 06-25-2015 influenza, unspecifi ed formulation [facility] 06-12-2015 influenza virus vacc ine, unspecified formulation [facility] 06-12-2015 influenza, seasonal, injectable Ronan Cabello MD Work Phone: [facility] Payers Date Payer Category Payer Self-pay 2021 Medicaid [id number] 2015 Medicare [id number] 2003 Private Health Insurance [id number] 1974 Unknown [id number] 2.16. [id number] 1974 Unknown [id number] 2.16.84 0.1.985135.3.579.2.593 1974 Unknown [id number] 2.16.84 0.1.138614.3.579.2.593 1974 Unknown [id number] 2.16.84 0.1.843234.3.579.2.593 1974 Unknown [id number] 2.16.84 0.1.718555.3.579.2.593 1974 Unknown [id number] 2.16.84 0.1.820797.3.579.2.593 1974 Unknown [id number] 2.16.84 0.1.924206.3.579.2.593 1974 Unknown [id number] 2.16.84 0.1.221644.3.579.2.593 1974 Unknown [id number] 2.16.84 0.1.684861.3.579.2.1259 1974 Unknown [id number] 2.16.84 0.1.303279.3.579.2.1259 1974 Unknown [id number] 2.16.840 .1.664274.3.579.2.1259 1974 Unknown [id number] 2.16.8 40.1.858146.3.579.2.727 1974 Unknown [id number] 2.16.8 40.1.004276.3.579.2.727 1974 Unknown [id number] 2.16.8 40.1.253758.3.579.2.727 1974 Unknown [id number] 2.16.8 40.1.235771.3.579.2.727 1974 Unknown [id number] 2.16.8 40.1.893066.3.579.2.727 1974 Unknown [id number] 2.16.8 40.1.277803.3.579.2.727 1974 Unknown [id number] 2.16.8 40.1.402377.3.579.2.727 1974 Unknown [id number] 2.16.8 40.1.023184.3.579.2.727 1974 Unknown [id number] 2.16.8 40.1.139252.3.579.2.727 1974 Unknown [id number] 2.16.8 40.1.271773.3.579.2.727 1974 Unknown [id number] 2.16.8 40.1.129725.3.579.2.727 1974 Unknown [id number] 2.16.8 40.1.088146.3.579.2.727 1974 Unknown [id number] 2.16.8 40.1.283973.3.579.2.727 1974 Unknown [id number] 2.16.8 40.1.434770.3.579.2.727 1974 Unknown [id number] 2.16.8 40.1.828093.3.579.2.727 1974 Unknown [id number] 2.16.8 40.1.261261.3.579.2.727 1959 Medicaid [id number] 2. 16.840.1.522552.19 1959 Medicaid [id number] 1959 Medicare [id number] 2.1 [id number] Unknown Unknown [id number] 2.16.8 40.1.145642.3.579.2.531 Social History Date Type Detail Facility Start: 01-01-2022 End: 06-13-2025 Tobacco smoking status Heavy tobacco smoker (finding) [facility] Start: 03-27-2023 End: 03-30-2023 Sex Assigned At Female [facility] Start: 05-08-2018 End: 03-30-2023 Tobacco smoking status NHIS Occasional tobacco smoker [facility] Start: 05-08-2018 End: 03-30-2023 Tobacco use and exposure Smokeless tobacco non-user [facility] Start: 1975 Sex Assigned At Not on file C [facility] Start: 07-18-2022 End: 07-28-2022 Exposure to SARS-CoV-2 (event) Not sure [facility] Start: 03-27-2023 End: 03-30-2023 History of Social function [facility] National Score (1-10 0), lower number is lower risk 87 [facility] Start: 08-28-2023 Tobacco smoking stat us MEIS Smokes tobacco daily [facility] History of [...] cups per day [facility] Sexual Orientation [facility] Start: 01-06-2010 Sex Female (finding) [facility] Medical Equipment Procedure Code Equipment Code Equipment Origin al Text Equipment Identifier Dates Mesh Prolene Polypropylene 6x4in Surgical Patch Soft Flat Sterile Hernia - [id number] Start: 10-21-2015 ANKLE FRACTURE O RIF [...] Assessment Result Facility 02-02-2025 Functional Status N/A [facility] 11-26-2023 Functional Status N/A [facility] 10-13-2023 Functional Status N/A [facility] 01-31-2023 Functional Status N/A [facility] 11-12-2022 Functional Status N/A [facility] 11-12-2022 Functional Status [facility] 03-31-2022 Functional Status N/A [facility] 04-19-2021 Are you deaf, or do you have serious difficulty hearing No 04/19/2021 10:17 AM Sofi Dickey RN [facility] 04-19-2021 Are you blind, or do you have serious difficulty seeing, even when wearing glasses No 04/19/2021 10:17 AM Sofi Dickey RN No [facility] 04-19-2021 Do you have serious difficulty walking or climbing stairs No 04/19/2021 10:17 AM Sofi Dickey RN No [facility] 04-19-2021 Do you have difficul ty dressing or bathing No 04/19/2021 10:17 AM Sofi Dickey RN [facility] 04-19-2021 Because of a physica l, mental, or emotional condition, do you have difficulty doing errands alone such as visiting a physician's office or shopping No 04/19/2021 10:17 AM Sofi Dickey RN [facility] Mental Status Date Assessment Result Facility 04-19-2021 Because of a physica l, mental, or emotional condition, do you have serious difficulty concentrating, remembering, or making decisions No 04/19/2021 10:17 AM Sofi Dickey RN No [facility] Clinical Notes 01-01-2022 to 06-10-2025 Radiology Note Date & Type Note Facility 06-10-2025 Hospital Discharge instructions Follow Up Care 06/10/2025 08:49:17 With:German Sheehan DO, FAM Address: [address] [place] [address]- When: Unknown Comments:As scheduled [facility] [place] 06-05-2025 Note ED Patient Education Note Cardiovascular Hypertension, Adult Hypertension is another name for high blood pressure. High blood pressure forces your heart to work harder to pump blood. This can cause problems over time. There are two numbers in a blood pressure reading. There is a top number (systolic) over a bottom number (diastolic). It is best to have a blood pressure that is below 120/80. What are the causes? The cause of this condition is not known. Some other conditions can lead to high blood pressure. What increases the risk? Some lifestyle factors can make you more likely to develop high blood pressure: ??? Smoking. ??? Not getting enough exercise or physical activity. ??? Being overweight. ??? Having too much fat, sugar, calories, or salt (sodium) in your diet. ??? Drinking too much alcohol. Other risk factors include: ??? Having any of these conditions: ? Heart disease. ? Diabetes. ? High cholesterol. ? Kidney disease. ? Obstructive sleep apnea. ??? Having a family history of high blood pressure and high cholesterol. ??? Age. The risk increases with age. ??? Stress. What are the signs or symptoms? High blood pressure may not cause symptoms. Very high blood pressure (hypertensive crisis) may cause: ??? Headache. ??? Fast or uneven heartbeats (palpitations). ??? Shortness of breath. ??? Nosebleed. ??? Vomiting or feeling like you may vomit (nauseous). ??? Changes in how you see. ??? Very bad chest pain. ??? Feeling dizzy. ??? Seizures. How is this treated? This condition is treated by making healthy lifestyle changes, such as: ? Eating healthy foods. ? Exercising more. ? Drinking less alcohol. ??? Your doctor may prescribe medicine if lifestyle changes do not help enough and if: ? Your top number is above 130. ? Your bottom number is above 80. ??? Your personal target blood pressure may vary. Follow these instructions at home: Eating and drinking ??? If told, follow the DASH eating plan. To follow this plan: ? Fill one half of your plate at each meal with fruits and vegetables. ? Fill one fourth of your plate at each meal with whole grains. Whole grains include whole-wheat pasta, brown rice, and whole-grain bread. ? Eat or drink low-fat dairy products, such as skim milk or low-fat yogurt. ? Fill one fourth of your plate at each meal with low-fat (lean) proteins. Low-fat proteins include fish, chicken without skin, eggs, beans, and tofu. ? Avoid fatty meat, cured and processed meat, or chicken with skin. ? Avoid pre-made or processed food. ??? Limit the amount of salt in your diet to less than 1,500 mg each day. ??? Do not drink alcohol if: ? Your doctor tells you not to drink. ? You are , may be , or are planning to become . ??? If you drink alcohol: ? Limit how much you have to: ? 0?1 drink a day for women. ? 0?2 drinks a day for men. ? Know how much alcohol is in your drink. In the [place] one drink equals one 12 oz bottle of beer (355 mL), one 5 oz glass of wine (148 mL), or one 1? oz glass of hard liquor (44 mL). Lifestyle ??? Work with your doctor to stay at a healthy weight or to lose weight. Ask your doctor what the best weight is for you. ??? Get at least 30 minutes of exercise that causes your heart to beat faster (aerobic exercise) most days of the week. This may include walking, swimming, or biking. ??? Get at least 30 minutes of exercise that strengthens your muscles (resistance exercise) at least 3 days a week. This may include lifting weights or doing Pilates. ??? Do not smoke or use any products that contain nicotine or tobacco. If you need help quitting, ask your doctor. ??? Check your blood pressure at home as told by your doctor. ??? Keep all follow-up visits. Medicines ??? Take [id number] and prescription medicines only as told by your doctor. Follow directions carefully. ??? Do not skip doses of blood pressure medicine. The medicine does not work as well if you skip doses. Skipping doses also puts you at risk for problems. ??? Ask your doctor about side effects or reactions to medicines that you should watch for. Contact a doctor if: ??? You think you are having a reaction to the medicine you are taking. ??? You have headaches that keep coming back. ??? You feel dizzy. ??? You have swelling in your ankles. ??? You have trouble with your vision. Get help right away if: ??? You get a very bad headache. ??? You start to feel mixed up (confused). ??? You feel weak or numb. ??? You feel faint. ??? You have very bad pain in your: ? Chest. ? Belly (abdomen). ??? You vomit more than once. ??? You have trouble breathing. These symptoms may be an emergency. Get help right away. Call 911. ??? Do not wait to see if the symptoms will go away. ??? Do not drive yourself to the hospital. Summary ??? Hypertens (more content not included)... [facility] 05-23-2025 Hospital Discharge instructions Patient Education 05/23/2025 13:30:55 Bipolar I Disorder Bipolar I Disorder Bipolar I disorder is a mental health disorder in which a person has episodes of emotional highs (oren) and may also have episodes of lows (depression). Bipolar I disorder differs from other bipolar disorders in that it involves extreme episodes of oren (manic episodes). These episodes last at least one week or involve severe symptoms that require a hospital stay to keep the person safe. What are the causes? The cause of this condition is not known. What increases the risk? The following factors may make you more likely to develop this condition: Having a family member with the disorder. Having an imbalance of certain chemicals in the brain (neurotransmitters). Experiencing stress, such as from illness, financial problems, or a . Having certain conditions that affect the brain or spinal cord (neurologic conditions). Having had a brain injury (trauma). What are the signs or symptoms? Symptoms of bipolar I disorder include the following: Symptoms of oren Very high self-esteem or self-confidence. Less need for sleep. Unusual talkativeness. Speech may be very fast. Racing thoughts with quick shifts between topics that may or may not be related (flight of ideas). Being much more able or much less able to concentrate. Increased purposeful activity, such as work, studies, or social activity. Increased agitation. This could be pacing, squirming, fidgeting, or finger and toe tapping. Impulsive behavior and poor judgment. These may lead to high-risk activities that are sexual, financial, or physical. Symptoms of depression Extreme sadness, uncontrollable crying, or feeling hopeless, worthless, or numb. Sleep problems, such as trouble falling asleep or staying asleep (insomnia), waking early, or sleeping too much. No longer enjoying things you used to enjoy. Isolation, or spending time alone often. Lack of energy or motivation, and moving more slowly than normal. Trouble making decisions. Increased appetite or loss of appetite. Thoughts of , or wanting to harm yourself. Sometimes, you may have a mixed mood. This means having symptoms of oren and depression at the same time. Stress can often trigger these symptoms. How is this diagnosed? This condition may be diagnosed based on a mental health evaluation that includes a review of: Emotional episodes. Medical history. Use of alcohol, drugs, and prescription medicines. Certain medical conditions and substances can cause secondary bipolar disorder. This has symptoms like the symptoms of bipolar disorder. Your health care provider may ask you to take a short test to help understand your symptoms. You may also be asked to follow up with a mental health provider for further evaluation or to start treatment. How is this treated? This condition is a long-term (chronic) illness. It is often managed with ongoing treatment rather than treatment only when symptoms occur. A combination of treatments is often used. Treatment may include: Medicines, usually medicines called mood stabilizers. Medicines can be prescribed by a health care provider who specializes in treating mental health disorders (psychiatrist). If symptoms occur during use of a mood stabilizer, other medicines may be added. Talk therapy (psychotherapy) to help you manage bipolar disorder. Talk therapy includes cognitive behavioral therapy (CBT) and family therapy. Psychoeducation. This helps you and others understand how your disorder is managed. Include friends and family in educational sessions so they learn how best to support you. Methods of managing your condition, such as journaling or relaxation exercises. Exercises include: ?Yoga. ?Meditation. ?Deep breathing. Lifestyle changes, such as: ?Limiting alcohol and drug use. ?Exercising regularly. ?Setting a regular bedtime and wake time. ?Eating a healthy diet. Electroconvulsive therapy (ECT). This is a procedure in which electricity is applied to the brain through the scalp. ECT may be used for severe bipolar disorder when medicine and psychotherapy work too slowly or do not work. Follow these instructions at home: Activity Return to your normal activities as told by your health care provider. Find activities that you enjoy, and make time to do them. Get regular exercise. Lifestyle Follow a set schedule for eating and sleeping. Eat a healthy diet that includes fresh fruits and vegetables, whole grains, low-fat dairy, and lean meat. Get at least 7 8 hours of sleep each night. Avoid using products that contain nicotine or tobacco. If you want help quitting, ask your health care provider. Avoid alcohol and drugs. They can affect how medicine works and make symptoms worse. General instructions Take ispi-ajk-orpluut and prescription medicines only as told by your health care provider. You may think about stopping your medicine, but you need to take all your medicine as prescribed. This helps manage your symptoms. Consider joining a support group. Your health care provider may be able to recommend one. Talk with your family and friends about your treatment goals and how loved ones can help. Keep all follow-up visits. This is important. Where to find more information National [place] on Mental Illness: hoal.org National [place] of Mental Health: nimh.nih.gov Contact a health care provider if: Your symptoms get worse, or your loved ones tell you that your symptoms are getting worse. You have uncomfortable side effects from your medicine. You have trouble sleeping. You have trouble doing daily activities. You feel unsafe in your surroundings. You are using alcohol or drugs to manage your symptoms. Get help right away if: You have new symptoms. You have thoughts about harming yourself or others. You are considering suicide. If you ever feel like you may hurt yourself or others, or have thoughts about taking your own life, get help right away. Go to your nearest emergency department or: Call your local emergency services (595 in the [place] Call a suicide crisis helpline, such as the National Suicide Prevention Lifeline at or 750 in the [place] This is open 24 hours a day in the [place] Text the Crisis Text Line at 907318 (in the [place] Summary Bipolar I disorder is a lifelong mental health disorder in which a person has episodes of oren and depression. Treatment for this disorder involves a combination of treatments such as medicines and talk and behavioral therapies. Include friends and family in educational sessions so they know how best to support you. Get help right away if you are considering suicide. This information is not intended to replace advice given to you by your health care provider. Make sure you discuss any questions you have with your health care provider. Document Revised: 04/07/2022 Document Reviewed: 03/03/2022 [email or web address] Patient Education 2023 [employer] 05/23/2025 13:30:48 Arthritis Arthritis Arthritis is a term that is commonly used to refer to joint pain or joint disease. There are more than 100 types of arthritis. What are the causes? The most common cause of this condition is wear and tear of a joint. Other causes include: Gout. Inflammation of a joint. An infection of a joint. Sprains and other injuries near the joint. A reaction to medicines or drugs, or an allergic reaction. In some cases, the cause may not be known. What are the signs or symptoms? The main symptom of this condition is pain in the joint during movement. Other symptoms include: Redness, swelling, or stiffness at a joint. Warmth coming from the joint. Fever. Overall feeling of illness. How is this diagnosed? This condition may be diagnosed with a physical exam and tests, including: Blood tests. Urine tests. Imaging tests, such as X-rays, an MRI, or a CT scan. Sometimes, fluid is removed from a joint for testing. How is this treated? This condition may be treated with: Treatment of the cause, if it is known. Rest. Raising (elevating) the joint. Applying cold or hot packs to the joint. Medicines to improve symptoms and reduce inflammation. Injections of a steroid, such as cortisone, into the joint to help reduce pain and inflammation. Depending on the cause of your arthritis, you may need to make lifestyle changes to reduce stress on your joint. Changes may include: Exercising more. Losing weight. Follow these instructions at home: Medicines Take xezn-hhk-pedbolk and prescription medicines only as told by your health care provider. Do not take aspirin to relieve pain if your health care provider thinks that gout may be causing your pain. Activity Rest your joint if told by your health care provider. Rest is important when your disease is active and your joint feels painful, swollen, or stiff. Avoid activities that make the pain worse. Balance activity with rest. Exercise your joint regularly with yeigw-if-asdrzh exercises as told by your health care provider. Try doing low-impact exercise, such as: ?Swimming. ?Water aerobics. ?Biking. ?Walking. Managing pain, stiffness, and swelling If directed, put ice on the affected joint. To do this: ?Put ice in a plastic bag. ?Place a towel between your skin and the bag. ?Leave the ice on for 20 minutes, 2 3 times a day. ?Remove the ice if your skin turns bright red. This is very important. If you cannot feel pain, heat, or cold, you have a greater risk of damage to the area. If your joint is swollen, raise (elevate) it above the level of your heart if directed by your health care provider. If your joint feels stiff in the morning, try taking a warm shower. If directed, apply heat to the affected area as often as told by your health care provider. Use the heat source that your health care provider recommends, such as a moist heat pack or a heating pad. To apply heat: ?Place a towel between your skin and the heat source. ?Leave the heat on for 20 30 minutes. ?Remove the heat if your skin turns bright red. This is especially important if you are unable to feel pain, heat, or cold. You have a greater risk of getting burned. General instructions Maintain a healthy weight. Follow instructions from your health care provider for weight control. Do not use any products that contain nicotine or tobacco. These products include cigarettes, chewing tobacco, and vaping devices, such as e-cigarettes. If you need help quitting, ask your health care provider. Keep all follow-up visits. This is important. Where to find more information National Institutes of Health: www.niams.nih.gov Contact a health care provider if: The pain gets worse. You have a fever. Get help right away if: You develop severe joint pain, swelling, or redness. Many joints become painful and swollen. You develop severe back pain. You develop severe weakness in your leg. Summary Arthritis is a term that is commonly used to refer to joint pain or joint disease. There are more than 100 types of arthritis. The most common cause of this condition is wear and tear of a joint. Other causes include gout, inflammation or infection of the joint, sprains, or allergies. Symptoms of this condition include redness, swelling, or stiffness of the joint. Other symptoms include warmth, fever, or feeling ill. This condition is treated with rest, elevation, medicines, and applying cold or hot packs. Follow your health care provider's instructions about medicines, activity, exercises, and other home care treatments. This information is not intended to replace advice given to you by your health care provider. Make sure you discuss any questions you have with your health care provider. Document Revised: 06/21/2022 Document Reviewed: 06/21/2022 [email or web address] Patient Education 2023 [employer] 05/23/2025 13:30:43 Gastroesophageal Reflux Disease, Adult, Lwyv-oc-Pqpm Gastroesophageal Reflux Disease, Adult Gastroesophageal reflux (ABBY) happens when acid from the stomach flows up into the tube that connects the mouth and the stomach (esophagus). Normally, food travels down the esophagus and stays in the stomach to be digested. With ABBY, food and stomach acid sometimes move back up into the esophagus. You may have a disease called gastroesophageal reflux disease (GERD) if the reflux: Happens often. Causes frequent or very bad symptoms. Causes problems such as damage to the esophagus. When this happens, the esophagus becomes sore and swollen. Over time, GERD can make small holes (ulcers) in the lining of the esophagus. What are the causes? This condition is caused by a problem with the muscle between the esophagus and the stomach. When this muscle is weak or not normal, it does not close properly to keep food and acid from coming back up from the stomach. The muscle can be weak because of: Tobacco use. . Having a certain type of hernia (hiatal hernia). Alcohol use. Certain foods and drinks, such as coffee, chocolate, onions, and peppermint. What increases the risk? Being overweight. Having a disease that affects your connective tissue. Taking NSAIDs, such a ibuprofen. What are the signs or symptoms? Heartburn. Difficult or painful swallowing. The feeling of having a lump in the throat. A bitter taste in the mouth. Bad breath. Having a lot of saliva. Having an upset or bloated stomach. Burping. Chest pain. Different conditions can cause chest pain. Make sure you see your doctor if you have chest pain. Shortness of breath or wheezing. A long-term cough or a cough at night. Wearing away of the surface of teeth (tooth enamel). Weight loss. How is this treated? Making changes to your diet. Taking medicine. Having surgery. Treatment will depend on how bad your symptoms are. Follow these instructions at home: Eating and drinking Follow a diet as told by your doctor. You may need to avoid foods and drinks such as: ?Coffee and tea, with or without caffeine. ?Drinks that contain alcohol. ?Energy drinks and sports drinks. ?Bubbly (carbonated) drinks or sodas. ?Chocolate and cocoa. ?Peppermint and mint flavorings. ?Garlic and onions. ?Horseradish. ?Spicy and acidic foods. These include peppers, chili powder, smith powder, vinegar, hot sauces, and BBQ sauce. ?Coldstream fruit juices and citrus fruits, such as oranges, landon, and limes. ?Tomato-based foods. These include red sauce, chili, salsa, and pizza with red sauce. ?Fried and fatty foods. These include donuts, burundian fries, potato chips, and high-fat dressings. ?High-fat meats. These include hot dogs, rib eye steak, sausage, ham, and lopez. ?High-fat dairy items, such as whole milk, butter, and cream cheese. Eat small meals often. Avoid eating large meals. Avoid drinking large amounts of liquid with your meals. Avoid eating meals during the 2 3 hours before bedtime. Avoid lying down right after you eat. Do not exercise right after you eat. Lifestyle Do not smoke or use any products that contain nicotine or tobacco. If you need help quitting, ask your doctor. Try to lower your stress. If you need help doing this, ask your doctor. If you are overweight, lose an amount of weight that is healthy for you. Ask your doctor about a safe weight loss goal. General instructions Pay attention to any changes in your symptoms. Take cwrx-qnm-wworwcu and prescription medicines only as told by your doctor. Do not take aspirin, ibuprofen, or other NSAIDs unless your doctor says it is okay. Wear loose clothes. Do not wear anything tight around your waist. Raise (elevate) the head of your bed about 6 inches (15 cm). You may need to use a wedge to do this. Avoid bending over if this makes your symptoms worse. Keep all follow-up visits. Contact a doctor if: You have new symptoms. You lose weight and you do not know why. You have trouble swallowing or it hurts to swallow. You have wheezing or a cough that keeps happening. You have a hoarse voice. Your symptoms do not get better with treatment. Get help right away if: You have sudden pain in your arms, neck, jaw, teeth, or back. You suddenly feel sweaty, dizzy, or light-headed. You have chest pain or shortness of breath. You vomit and the vomit is green, yellow, or black, or it looks like blood or coffee grounds. You faint. Your poop (stool) is red, bloody, or black. You cannot swallow, drink, or eat. These symptoms may represent a serious problem that is an emergency. Do not wait to see if the symptoms will go away. Get medical help right away. Call your local emergency services (911 in the [place] Do not drive yourself to the hospital. Summary If a person has gastroesophageal reflux disease (GERD), food and stomach acid move back up into the esophagus and cause symptoms or problems such as damage to the esophagus. Treatment will depend on how bad your symptoms are. Follow a diet as told by your doctor. Take all medicines only as told by your doctor. This information is not intended to replace advice given to you by your health care provider. Make sure you discuss any questions you have with your health care provider. Document Revised: 03/22/2021 Document Reviewed: 03/22/2021 [email or web address] Patient Education 2023 [employer] 05/23/2025 13:30:34 Generalized Anxiety Disorder, Adult Generalized Anxiety Disorder, Adult Generalized anxiety disorder (NNEKA) is a mental health condition. Unlike normal worries, anxiety related to NNEKA is not triggered by a specific event. These worries do not fade or get better with time. NNEKA interferes with relationships, work, and school. NNEKA symptoms can vary from mild to severe. People with severe NNEKA can have intense waves of anxiety with physical symptoms that are similar to panic attacks. What are the causes? The exact cause of NNEKA is not known, but the following are believed to have an impact: Differences in natural brain chemicals. Genes passed down from parents to children. Differences in the way threats are perceived. Development and stress during childhood. Personality. What increases the risk? The following factors may make you more likely to develop this condition: Being female. Having a family history of anxiety disorders. Being very shy. Experiencing very stressful life events, such as the of a loved one. Having a very stressful family environment. What are the signs or symptoms? People with NNEKA often worry excessively about many things in their lives, such as their health and family. Symptoms may also include: Mental and emotional symptoms: ?Worrying excessively about natural disasters. ?Fear of being late. ?Difficulty concentrating. ?Fears that others are judging your performance. Physical symptoms: ?Fatigue. ?Headaches, muscle tension, muscle twitches, trembling, or feeling shaky. ?Feeling like your heart is pounding or beating very fast. ?Feeling out of breath or like you cannot take a deep breath. ?Having trouble falling asleep or staying asleep, or experiencing restlessness. ?Sweating. ?Nausea, diarrhea, or irritable bowel syndrome (IBS). Behavioral symptoms: ?Experiencing erratic moods or irritability. ?Avoidance of new situations. ?Avoidance of people. ?Extreme difficulty making decisions. How is this diagnosed? This condition is diagnosed based on your symptoms and medical history. You will also have a physical exam. Your health care provider may perform tests to rule out other possible causes of your symptoms. To be diagnosed with NNEKA, a person must have anxiety that: Is out of his or her control. Affects several different aspects of his or her life, such as work and relationships. Causes distress that makes him or her unable to take part in normal activities. Includes at least three symptoms of NNEKA, such as restlessness, fatigue, trouble concentrating, irritability, muscle tension, or sleep problems. Before your health care provider can confirm a diagnosis of NNEKA, these symptoms must be present more days than they are not, and they must last for 6 months or longer. How is this treated? This condition may be treated with: Medicine. Antidepressant medicine is usually prescribed for long-term daily control. Anti-anxiety medicines may be added in severe cases, especially when panic attacks occur. Talk therapy (psychotherapy). Certain types of talk therapy can be helpful in treating NNEKA by providing support, education, and guidance. Options include: ?Cognitive behavioral therapy (CBT). People learn coping skills and self-calming techniques to ease their physical symptoms. They learn to identify unrealistic thoughts and behaviors and to replace them with more appropriate thoughts and behaviors. ?Acceptance and commitment therapy (ACT). This treatment teaches people how to be mindful as a way to cope with unwanted thoughts and feelings. ?Biofeedback. This process trains you to manage your body's response (physiological response) through breathing techniques and relaxation methods. You will work with a therapist while machines are used to monitor your physical symptoms. Stress management techniques. These include yoga, meditation, and exercise. A mental health specialist can help determine which treatment is best for you. Some people see improvement with one type of therapy. However, other people require a combination of therapies. Follow these instructions at home: Lifestyle Maintain a consistent routine and schedule. Anticipate stressful situations. Create a plan and allow extra time to work with your plan. Practice stress management or self-calming techniques that you have learned from your therapist or your health care provider. Exercise regularly and spend time outdoors. Eat a healthy diet that includes plenty of vegetables, fruits, whole grains, low-fat dairy products, and lean protein. ?Do not eat a lot of foods that are high in fat, added sugar, or salt (sodium). ?Drink plenty of water. Avoid alcohol. Alcohol can increase anxiety. Avoid caffeine and certain ghrl-rmm-xvxulfu cold medicines. These may make you feel worse. Ask your pharmacist which medicines to avoid. General instructions Take apvt-twl-tqlcpsz and prescription medicines only as told by your health care provider. Understand that you are likely to have setbacks. Accept this and be kind to yourself as you persist to take better care of yourself. Anticipate stressful situations. Create a plan and allow extra time to work with your plan. Recognize and accept your accomplishments, even if you software intern them as small. Spend time with people who care about you. Keep all follow-up visits. This is important. Where to find more information National [place] of Mental Health: www.nimh.nih.gov Substance Abuse and Mental Health Services: www.samhsa.gov Contact a health care provider if: Your symptoms do not get better. Your symptoms get worse. You have signs of depression, such as: ?A persistently sad or irritable mood. ?Loss of enjoyment in activities that used to bring you terri. ?Change in weight or eating. ?Changes in sleeping habits. Get help right away if: You have thoughts about hurting yourself or others. If you ever feel like you may hurt yourself or others, or have thoughts about taking your own life, get help right away. Go to your nearest emergency department or: Call your local emergency services (041 in the [place] Call a suicide crisis helpline, such as the National Suicide Prevention Lifeline at or 075 in the [place] This is open 24 hours a day in the [place] Text the Crisis Text Line at 608526 (in the [place] Summary Generalized anxiety disorder (NNEKA) is a mental health condition that involves worry that is not triggered by a specific event. People with NNEKA often worry excessively about many things in their lives, such as their health and family. NNEKA may cause symptoms such as restlessness, trouble concentrating, sleep problems, frequent sweating, nausea, diarrhea, headaches, and trembling or muscle twitching. A mental health specialist can help determine which treatment is best for you. Some people see improvement with one type of therapy. However, other people require a combination of therapies. This information is not intended to replace advice given to you by your health care provider. Make sure you discuss any questions you have with your health care provider. Document Revised: 04/06/2022 Document Reviewed: 01/02/2022 [email or web address] Patient Education 2023 [email or web address] 05/23/2025 13:30:27 Health Risks of Smoking Health Risks of Smoking Smoking tobacco is very bad for your health. Tobacco smoke contains many toxic chemicals that can damage every part of your body. Secondhand smoke can be harmful to those around you. Tobacco or nicotine use can cause many long-term (chronic) diseases. Smoking is difficult to quit because a chemical in tobacco, called nicotine, causes addiction or dependence. When you smoke and inhale, nicotine is absorbed quickly into your bloodstream through your lungs. Both inhaled and non-inhaled nicotine may be addictive. How can quitting affect me? There are health benefits of quitting smoking. Some benefits happen right away and others take time. Benefits may include: Blood flow, blood pressure, heart rate, and lung capacity may begin to improve. However, any lung damage that has already occurred cannot be repaired. Respiratory symptoms from smoking, such as nasal congestion and cough, may improve over time. Your risk of heart disease, stroke, and cancer is reduced. The overall quality of your health may improve. You may save money, as you will not spend money on tobacco products and may spend less money on smoking-related health issues. What can increase my risk? Smoking harms nearly every organ in the body. People who smoke tobacco have a shorter life expectancy and an increased risk of many serious medical problems. These include: More respiratory infections, such as colds and pneumonia. Cancer. Heart disease. Stroke. Chronic respiratory diseases. Delayed wound healing and increased risk of complications during surgery. Problems with reproduction, , and childbirth, such as infertility, early (premature) births, stillbirths, and defects. Secondhand smoke exposure to children increases the risk of: Sudden syndrome (SIDS). Infections in the nose, throat, or airways (respiratory infections). Chronic respiratory symptoms. What actions can I take to quit? Smoking is an addiction that affects both your body and your mind, and long-time habits can be hard to change. Your health care provider can recommend: Nicotine replacement products, such as patches, gum, and nasal sprays. Use these products only as directed. Do not replace cigarette smoking with electronic cigarettes, which are commonly called e-cigarettes. The safety of e-cigarettes is not known, and some may contain harmful chemicals. Programs and community resources, which may include group support, education, or talk therapy. Prescription medicines to help reduce cravings. A combination of two or more quit methods, which may increase the success of quitting. Where to find support Follow the recommendations from your health care provider about support groups and other assistance. You can also visit: [place]. Department of Health and Human Services: www.smokefree.gov [place] [employer]: www.freedomfromsmoking.org [place] [employer]: www.heart.org Where to find more information Centers for Disease Control and Prevention: www.cdc.gov World Health Organization: www.who.int Summary Smoking tobacco is very bad for your health. Tobacco smoke contains many toxic chemicals that can damage every part of the body. Smoking is difficult to quit because a chemical in tobacco, called nicotine, causes addiction or dependence. There are immediate and long-term health benefits of quitting smoking. A combination of two or more quit methods may increase the success of quitting. This information is not intended to replace advice given to you by your health care provider. Make sure you discuss any questions you have with your health care provider. Document Revised: 09/13/2022 Document Reviewed: 09/13/2022 [employer] Patient Education 2023 [employer] 05/23/2025 13:30:21 Asthma, Adult, Qptd-iz-Mnai Asthma, Adult Asthma is a condition that causes swelling and narrowing of the airways. These are the passages that lead from the nose and mouth down into the lungs. When asthma symptoms get worse it is called an asthma attack or flare. This can make it hard to breathe. Asthma flares can range from minor to life-threatening. There is no cure for asthma, but medicines and lifestyle changes can help to control it. What are the causes? It is not known exactly what causes asthma, but certain things can cause asthma symptoms to get worse (triggers). What can trigger an asthma attack? Cigarette smoke. Mold. Dust. Your pet's skin flakes (dander). Cockroaches. Pollen. Air pollution (like household blower and compressor assembler, wood smoke, smog, or chemical odors). What are the signs or symptoms? Trouble breathing (shortness of breath). Coughing. Making high-pitched whistling sounds when you breathe, most often when you breathe out (wheezing). Chest tightness. Tiredness with little activity. Poor exercise tolerance. How is this treated? Controller medicines that help prevent asthma symptoms. Fast-acting reliever or rescue medicines. These give short-term relief of asthma symptoms. Allergy medicines if your attacks are brought on by allergens. Medicines to help control the body's defense (immune) system. Staying away from the things that cause asthma attacks. Follow these instructions at home: Avoiding triggers in your home Do not allow anyone to smoke in your home. Limit use of fireplaces and wood stoves. Get rid of pests (such as roaches and mice) and their droppings. Keep your home clean. ?Clean your floors. Dust regularly. Use cleaning products that do not smell. ?Wash bed sheets and blankets every week in hot water. Dry them in a dryer. ?Have someone vacuum when you are not home. ?Change your heating and air conditioning filters often. Use blankets that are made of polyester or cotton. General instructions Take xvcz-wgy-btednda and prescription medicines only as told by your doctor. Do not smoke or use any products that contain nicotine or tobacco. If you need help quitting, ask your doctor. ?Stay away from secondhand smoke. Avoid doing things outdoors when allergen counts are high and when air quality is low. Warm up before you exercise. Take time to cool down after exercise. Use a peak flow meter as told by your doctor. A peak flow meter is a tool that measures how well your lungs are working. ?Keep track of the peak flow meter's readings. Write them down. Follow your asthma action plan. This is a written plan for taking care of your asthma and treating your attacks. Make sure you get all the shots (vaccines) that your doctor recommends. Ask your doctor about a flu shot and a pneumonia shot. Keep all follow-up visits. Contact a doctor if: You have wheezing, shortness of breath, or a cough even while taking medicine to prevent attacks. The mucus you cough up (sputum) is thicker than usual. The mucus you cough up changes from clear or white to yellow, green, anne, or is bloody. You have problems from the medicine you are taking, such as: ?A rash. ?Itching. ?Swelling. ?Trouble breathing. You need reliever medicines more than 2 3 times a week. Your peak flow reading is still at 50 79% of your personal best after following the action plan for 1 hour. You have a fever. Get help right away if: You seem to be worse and are not responding to medicine during an asthma attack. You are short of breath even at rest. You get short of breath when doing very little activity. You have trouble eating, drinking, or talking. You have chest pain or tightness. You have a fast heartbeat. Your lips or fingernails start to turn blue. You are light-headed or dizzy, or you faint. Your peak flow is less than 50% of your personal best. You feel too tired to breathe normally. These symptoms may be an emergency. Get help right away. Call 911. Do not wait to see if the symptoms will go away. Do not drive yourself to the hospital. Summary Asthma is a long-term (chronic) condition in which the airways get tight and narrow. An asthma attack can make it hard to breathe. Asthma cannot be cured, but medicines and lifestyle changes can help control it. Make sure you understand how to avoid triggers and how and when to use your medicines. Avoid things that can cause allergy symptoms (allergens). These include animal skin flakes (dander) and pollen from trees or grass. Avoid things that pollute the air. These may include household blower and compressor assembler, wood smoke, smog, or chemical odors. This information is not intended to replace advice given to you by your health care provider. Make sure you discuss any questions you have with your health care provider. Document Revised: 06/20/2022 Document Reviewed: 06/20/2022 [email or web address] Patient Education 2023 [employer]. 05/23/2025 13:30:13 Hypertension, Adult, Xnho-ja-Lgtu Hypertension, Adult Hypertension is another name for high blood pressure. High blood pressure forces your heart to work harder to pump blood. This can cause problems over time. There are two numbers in a blood pressure reading. There is a top number (systolic) over a bottom number (diastolic). It is best to have a blood pressure that is below 120/80. What are the causes? The cause of this condition is not known. Some other conditions can lead to high blood pressure. What increases the risk? Some lifestyle factors can make you more likely to develop high blood pressure: Smoking. Not getting enough exercise or physical activity. Being overweight. Having too much fat, sugar, calories, or salt (sodium) in your diet. Drinking too much alcohol. Other risk factors include: Having any of these conditions: ?Heart disease. ?Diabetes. ? High cholesterol. ?Kidney disease. ?Obstructive sleep apnea. Having a family history of high blood pressure and high cholesterol. Age. The risk increases with age. Stress. What are the signs or symptoms? High blood pressure may not cause symptoms. Very high blood pressure (hypertensive crisis) may cause: Headache. Fast or uneven heartbeats (palpitations). Shortness of breath. Nosebleed. Vomiting or feeling like you may vomit (nauseous). Changes in how you see. Very bad chest pain. Feeling dizzy. Seizures. How is this treated? This condition is treated by making healthy lifestyle changes, such as: ?Eating healthy foods. ?Exercising more. ?Drinking less alcohol. Your doctor may prescribe medicine if lifestyle changes do not help enough and if: ?Your top number is above 130. ?Your bottom number is above 80. Your personal target blood pressure may vary. Follow these instructions at home: Eating and drinking If told, follow the DASH eating plan. To follow this plan: ?Fill one half of your plate at each meal with fruits and vegetables. ?Fill one fourth of your plate at each meal with whole grains. Whole grains include whole-wheat pasta, brown rice, and whole-grain bread. ?Eat or drink low-fat dairy products, such as skim milk or low-fat yogurt. ?Fill one fourth of your plate at each meal with low-fat (lean) proteins. Low-fat proteins include fish, chicken without skin, eggs, beans, and tofu. ?Avoid fatty meat, cured and processed meat, or chicken with skin. ?Avoid pre-made or processed food. Limit the amount of salt in your diet to less than 1,500 mg each day. Do not drink alcohol if: ?Your doctor tells you not to drink. ?You are , may be , or are planning to become . If you drink alcohol: ?Limit how much you have to: ?0 1 drink a day for women. ?0 2 drinks a day for men. ?Know how much alcohol is in your drink. In the [place] one drink equals one 12 oz bottle of beer (355 mL), one 5 oz glass of wine (148 mL), or one 1 oz glass of hard liquor (44 mL). Lifestyle Work with your doctor to stay at a healthy weight or to lose weight. Ask your doctor what the best weight is for you. Get at least 30 minutes of exercise that causes your heart to beat faster (aerobic exercise) most days of the week. This may include walking, swimming, or biking. Get at least 30 minutes of exercise that strengthens your muscles (resistance exercise) at least 3 days a week. This may include lifting weights or doing Pilates. Do not smoke or use any products that contain nicotine or tobacco. If you need help quitting, ask your doctor. Check your blood pressure at home as told by your doctor. Keep all follow-up visits. Medicines Take cpcb-mzw-binydhx and prescription medicines only as told by your doctor. Follow directions carefully. Do not skip doses of blood pressure medicine. The medicine does not work as well if you skip doses. Skipping doses also puts you at risk for problems. Ask your doctor about side effects or reactions to medicines that you should watch for. Contact a doctor if: You think you are having a reaction to the medicine you are taking. You have headaches that keep coming back. You feel dizzy. You have swelling in your ankles. You have trouble with your vision. Get help right away if: You get a very bad headache. You start to feel mixed up (confused). You feel weak or numb. You feel faint. You have very bad pain in your: ?Chest. ?Belly (abdomen). You vomit more than once. You have trouble breathing. These symptoms may be an emergency. Get help right away. Call 911. Do not wait to see if the symptoms will go away. Do not drive yourself to the hospital. Summary Hypertension is another name for high blood pressure. High blood pressure forces your heart to work harder to pump blood. For most people, a normal blood pressure is less than 120/80. Making healthy choices can help lower blood pressure. If your blood pressure does not get lower with healthy choices, you may need to take medicine. This information is not intended to replace advice given to you by your health care provider. Make sure you discuss any questions you have with your health care provider. Document Revised: 06/30/2022 Document Reviewed: 06/30/2022 [email or web address] Patient Education 2023 [employer] 05/23/2025 13:30:10 DASH Eating Plan DASH Eating Plan DASH stands for Dietary Approaches to Stop Hypertension. The DASH eating plan is a healthy eating plan that has been shown to: Lower high blood pressure (hypertension). Reduce your risk for type 2 diabetes, heart disease, and stroke. Help with weight loss. What are tips for following this plan? Reading food labels Check food labels for the amount of salt (sodium) per serving. Choose foods with less than 5 percent of the Daily Value (DV) of sodium. In general, foods with less than 300 milligrams (mg) of sodium per serving fit into this eating plan. To find whole grains, look for the word whole as the first word in the ingredient list. Shopping Buy products labeled as low-sodium or no salt added. Buy fresh foods. Avoid canned foods and pre-made or frozen meals. Cooking Try not to add salt when you cook. Use salt-free seasonings or herbs instead of table salt or sea salt. Check with your health care provider or pharmacist before using salt substitutes. Do not teran foods. Cook foods in healthy ways, such as baking, boiling, grilling, roasting, or broiling. Cook using oils that are good for your heart. These include olive, canola, avocado, soybean, and sunflower oil. Meal planning Eat a balanced diet. This should include: ?4 or more servings of fruits and 4 or more servings of vegetables each day. Try to fill half of your plate with fruits and vegetables. ?6 8 servings of whole grains each day. ?6 or less servings of lean meat, poultry, or fish each day. 1 oz is 1 serving. A 3 oz (85 g) serving of meat is about the same size as the palm of your hand. One egg is 1 oz (28 g). ?2 3 servings of low-fat dairy each day. One serving is 1 cup (237 mL). ?1 serving of nuts, seeds, or beans 5 times each week. ?2 3 servings of heart-healthy fats. Healthy fats called omega-3 fatty acids are found in foods such as walnuts, flaxseeds, fortified milks, and eggs. These fats are also found in cold-water fish, such as sardines, salmon, and mackerel. Limit how much you eat of: ?Canned or prepackaged foods. ?Food that is high in trans fat, such as fried foods. ?Food that is high in saturated fat, such as fatty meat. ?Desserts and other sweets, sugary drinks, and other foods with added sugar. ?Full-fat dairy products. Do not salt foods before eating. Do not eat more than 4 egg yolks a week. Try to eat at least 2 vegetarian meals a week. Eat more home-cooked food and less restaurant, buffet, and fast food. Lifestyle When eating at a restaurant, ask if your food can be made with less salt or no salt. If you drink alcohol: ?Limit how much you have to: ?0 1 drink a day if you are female. ?0 2 drinks a day if you are male. ?Know how much alcohol is in your drink. In the [place] one drink is one 12 oz bottle of beer (355 mL), one 5 oz glass of wine (148 mL), or one 1 oz glass of hard liquor (44 mL). General information Avoid eating more than 2,300 mg of salt a day. If you have hypertension, you may need to reduce your sodium intake to 1,500 mg a day. Work with your provider to stay at a healthy body weight or lose weight. Ask what the best weight range is for you. On most days of the week, get at least 30 minutes of exercise that causes your heart to beat faster. This may include walking, swimming, or biking. Work with your provider or dietitian to adjust your eating plan to meet your specific calorie needs. What foods should I eat? Fruits All fresh, dried, or frozen fruit. Canned fruits that are in their natural juice and do not have sugar added to them. Vegetables Fresh or frozen vegetables that are raw, steamed, roasted, or grilled. Low-sodium or reduced-sodium tomato and vegetable juice. Low-sodium or reduced-sodium tomato sauce and tomato paste. Low-sodium or reduced-sodium canned vegetables. Grains Whole-grain or whole-wheat bread. Whole-grain or whole-wheat pasta. Brown rice. Oatmeal. Quinoa. Bulgur. Whole-grain and low-sodium cereals. Arielle bread. Low-fat, low-sodium crackers. Whole-wheat flour tortillas. Meats and other proteins Skinless chicken or turkey. Ground chicken or turkey. Pork with fat trimmed off. Fish and seafood. Egg whites. Dried beans, peas, or lentils. Unsalted nuts, nut butters, and seeds. Unsalted canned beans. Lean cuts of beef with fat trimmed off. Low-sodium, lean precooked or cured meat, such as sausages or meat loaves. Dairy Low-fat (1%) or fat-free (skim) milk. Reduced-fat, low-fat, or fat-free cheeses. Nonfat, low-sodium ricotta or cottage cheese. Low-fat or nonfat yogurt. Low-fat, low-sodium cheese. Fats and oils Soft margarine without trans fats. Vegetable oil. Reduced-fat, low-fat, or light mayonnaise and salad dressings (reduced-sodium). Canola, safflower, olive, avocado, soybean, and sunflower oils. Avocado. Seasonings and condiments Herbs. Spices. Seasoning mixes without salt. Other foods Unsalted popcorn and pretzels. Fat-free sweets. The items listed above may not be all the foods and drinks you can have. Talk to a dietitian to learn more. What foods should I avoid? Fruits Canned fruit in a light or heavy syrup. Fried fruit. Fruit in cream or butter sauce. Vegetables Creamed or fried vegetables. Vegetables in a cheese sauce. Regular canned vegetables that are not marked as low-sodium or reduced-sodium. Regular canned tomato sauce and paste that are not marked as low-sodium or reduced-sodium. Regular tomato and vegetable juices that are not marked as low-sodium or reduced-sodium. Pickles. Olives. Grains Baked goods made with fat, such as croissants, muffins, or some breads. Dry pasta or rice meal packs. Meats and other proteins Fatty cuts of meat. Ribs. Fried meat. Lopez. Bologna, salami, and other precooked or cured meats, such as sausages or meat loaves, that are not lean and low in sodium. Fat from the back of a pig (fatback). Bratwurst. Salted nuts and seeds. Canned beans with added salt. Canned or smoked fish. Whole eggs or egg yolks. Chicken or turkey with skin. Dairy Whole or 2% milk, cream, and [id number]. Whole or full-fat cream cheese. Whole-fat or sweetened yogurt. Full-fat cheese. Nondairy creamers. Whipped toppings. Processed cheese and cheese spreads. Fats and oils Butter. Stick margarine. Lard. Shortening. Ghee. Lopez fat. Tropical oils, such as coconut, palm kernel, or palm oil. Seasonings and condiments Onion salt, garlic salt, seasoned salt, table salt, and sea salt. Worcestershire sauce. Tartar sauce. Barbecue sauce. Teriyaki sauce. Soy sauce, including reduced-sodium soy sauce. Steak sauce. Canned and packaged gravies. Fish sauce. Oyster sauce. Cocktail sauce. Store-bought horseradish. Ketchup. Mustard. Meat flavorings and tenderizers. Bouillon cubes. Hot sauces. Pre-made or packaged marinades. Pre-made or packaged taco seasonings. Relishes. Regular salad dressings. Other foods Salted popcorn and pretzels. The items listed above may not be all the foods and drinks you should avoid. Talk to a dietitian to learn more. Where to find more information National Heart, Lung, and Blood [place] (NHLBI): nhlbi.nih.gov [place] [employer] (AHA): heart.org Academy of Nutrition and Dietetics: eatright.org National Kidney Foundation (NKF): kidney.org This information is not intended to replace advice given to you by your health care provider. Make sure you discuss any questions you have with your health care provider. Document Revised: 09/28/2023 Document Reviewed: 09/28/2023 [email or web address] Patient Education 2023 [employer] [facility] 05-23-2025 Hospital Discharge instructions Follow Up Care 05/23/2025 12:25:26 With:German Sheehan DO, FAM Address: [address] [place] [address]- When:4 weeks Comments:4 WEEKS FOLLOWUP [facility] 05-23-2025 Note Patient Education Cardiovascular Hypertension, Adult Hypertension is another name for high blood pressure. High blood pressure forces your heart to work harder to pump blood. This can cause problems over time. There are two numbers in a blood pressure reading. There is a top number (systolic) over a bottom number (diastolic). It is best to have a blood pressure that is below 120/80. What are the causes? The cause of this condition is not known. Some other conditions can lead to high blood pressure. What increases the risk? Some lifestyle factors can make you more likely to develop high blood pressure: ??? Smoking. ??? Not getting enough exercise or physical activity. ??? Being overweight. ??? Having too much fat, sugar, calories, or salt (sodium) in your diet. ??? Drinking too much alcohol. Other risk factors include: ??? Having any of these conditions: ? Heart disease. ? Diabetes. ? High cholesterol. ? Kidney disease. ? Obstructive sleep apnea. ??? Having a family history of high blood pressure and high cholesterol. ??? Age. The risk increases with age. ??? Stress. What are the signs or symptoms? High blood pressure may not cause symptoms. Very high blood pressure (hypertensive crisis) may cause: ??? Headache. ??? Fast or uneven heartbeats (palpitations). ??? Shortness of breath. ??? Nosebleed. ??? Vomiting or feeling like you may vomit (nauseous). ??? Changes in how you see. ??? Very bad chest pain. ??? Feeling dizzy. ??? Seizures. How is this treated? This condition is treated by making healthy lifestyle changes, such as: ? Eating healthy foods. ? Exercising more. ? Drinking less alcohol. ??? Your doctor may prescribe medicine if lifestyle changes do not help enough and if: ? Your top number is above 130. ? Your bottom number is above 80. ??? Your personal target blood pressure may vary. Follow these instructions at home: Eating and drinking ??? If told, follow the DASH eating plan. To follow this plan: ? Fill one half of your plate at each meal with fruits and vegetables. ? Fill one fourth of your plate at each meal with whole grains. Whole grains include whole-wheat pasta, brown rice, and whole-grain bread. ? Eat or drink low-fat dairy products, such as skim milk or low-fat yogurt. ? Fill one fourth of your plate at each meal with low-fat (lean) proteins. Low-fat proteins include fish, chicken without skin, eggs, beans, and tofu. ? Avoid fatty meat, cured and processed meat, or chicken with skin. ? Avoid pre-made or processed food. ??? Limit the amount of salt in your diet to less than 1,500 mg each day. ??? Do not drink alcohol if: ? Your doctor tells you not to drink. ? You are , may be , or are planning to become . ??? If you drink alcohol: ? Limit how much you have to: ? 0?1 drink a day for women. ? 0?2 drinks a day for men. ? Know how much alcohol is in your drink. In the [place] one drink equals one 12 oz bottle of beer (355 mL), one 5 oz glass of wine (148 mL), or one 1? oz glass of hard liquor (44 mL). Lifestyle ??? Work with your doctor to stay at a healthy weight or to lose weight. Ask your doctor what the best weight is for you. ??? Get at least 30 minutes of exercise that causes your heart to beat faster (aerobic exercise) most days of the week. This may include walking, swimming, or biking. ??? Get at least 30 minutes of exercise that strengthens your muscles (resistance exercise) at least 3 days a week. This may include lifting weights or doing Pilates. ??? Do not smoke or use any products that contain nicotine or tobacco. If you need help quitting, ask your doctor. ??? Check your blood pressure at home as told by your doctor. ??? Keep all follow-up visits. Medicines ??? Take nedb-yev-ypjhcae and prescription medicines only as told by your doctor. Follow directions carefully. ??? Do not skip doses of blood pressure medicine. The medicine does not work as well if you skip doses. Skipping doses also puts you at risk for problems. ??? Ask your doctor about side effects or reactions to medicines that you should watch for. Contact a doctor if: ??? You think you are having a reaction to the medicine you are taking. ??? You have headaches that keep coming back. ??? You feel dizzy. ??? You have swelling in your ankles. ??? You have trouble with your vision. Get help right away if: ??? You get a very bad headache. ??? You start to feel mixed up (confused). ??? You feel weak or numb. ??? You feel faint. ??? You have very bad pain in your: ? Chest. ? Belly (abdomen). ??? You vomit more than once. ??? You have trouble breathing. These symptoms may be an emergency. Get help right away. Call 911. ??? Do not wait to see if the symptoms will go away. ??? Do not drive yourself to the hospital. Summary ??? Hypertension is a (more content not included)... [facility] 05-02-2025 Note Family Medicine Offi ce/Clinic Note Chief Complaint Procedure HPI Staff Patient here for Procedure (Friend, Akbar) - Trigger Point Injections - At last visit Losartan discontinued. Patient is checking blood pressure at home, daily, averaging 100's/60-70's. Patient notes she is only taking one dose of her Coreg currently. - X-rays ordered, patient has completed and would like to review in more detail. She was also prescribed Lidocaine patches, which she has not received due to insurance, she would like to discuss other options. Julienne: due Pap: Hx Hysterectomy [place]: Per patient 2022, [facility] [place] [facility]: Needs to Schedules History of Present Illness Patient presents today for followup after trigger point injection. - Applied 04/22/2025 - Ongoing neck and shoulder pain - Considering gabapentin and Lyrica for fibromyalgia today - On Xanax through psychiatry, CBD products for symptom control Patient states that she continues to have back pain today. She is willing to continue with trigger point injections planned today. Patient would like to discuss her x-rays again. She would like to know more about what to do with her right shoulder that is limited in function. She denies any new falls or injuries. Review of Systems PHQ Score Initial Depression Screen Score: 0 SCORE ROS - Provider Constitutional: no fever, no chills Skin: no rash, no lesions ENMT: no ear pain, no sore throat, no congestion, no hoarseness. Respiratory: no shortness of breath, no cough, no wheezing. Cardiovascular: no chest pain, no palpitations, no edema. Gastrointestinal: no nausea, no vomiting, no diarrhea, Musculoskeletal: yes back pain, no trauma, yes neck pain, yes back pain, yes rib pain Neurologic: no headache, no dizziness, no numbness, no weakness. Psychiatric: yes sleeping problems, no irritability, yes mood swings/depression. Physical Exam Vitals & Measurements HR: 89(Peripheral) RR: 18 BP: 122/82 SpO2: 96% HT: 59 in HT: 150.7 cm WT: 64.1 kg WT: 141.316 lb BMI: 28.22 General: Well developed, well nourished, in no acute distress Head: Normocephalic/atraumatic Eyes: Pupils equal, round, and reactive to light. Sclerae normal, and extraocular movements intact Lungs: Normal respiratory effort and clear to auscultation Cardio: Regular rate and rhythm, normal S1 and S2, no murmur, no rub Musculoskeletal: No deformity or scoliosis noted. Normal range of motion. Joints normal. No erythema, edema, effusion, or ecchymosis Extremity: No clubbing, cyanosis, edema, or deformity, with normal ROM in both upper and lower bilateral extremities Neurologic: Grossly normal Skin: No rash, petechiae, suspicious lesions Mental Status: Alert and oriented x3. Normal mood and affect Procedure Patient informed of the risks and benefits of the procedure. Risks are stated to include, but are not limited to, injection into improper location, infection, nerve damage, muscle damage, medication reaction, and instrumentation failure. Patient accepts these risks and wishes to pursue procedure. Sites were identified in the upper trapezius / levator scapulae bundle , and marked with the needle cap. An alcohol swab pad was used to cleanse the site. In a clean approach, a 27G 1 needle was introduced in three different segments of the muscle tissue. A dose of 0.5cc kenalog at 1cc:40mg dosing, mixed with 1.5cc of 2% lidocaine without epinephrine into three different segments of the muscle tissue. Site was cleansed again and a Band-Aid was applied to cover the injection sites. Patient reported immediate relief. Patient tolerated procedure well, and was satisfied with the procedure. Patient was able to leave the office under their own power. Assessment/Plan 1. Cervicalgia (M54.2: Cervicalgia) Trigger point injection today at this time. She will have procedure as per procedure below. Recheck in 3 months if needed. 2. Dextroscoliosis of thoracic spine (M41.84: Other forms of scoliosis, thoracic region) As per #1. Ordered: lidocaine topical, 1 patch(es), Topical, Daily, 30 patch(es), Refill(s) 5, apply 12 hours on and 12 hours off daily, [facility]/pharmacy #[id number], 150.7, cm, 04/22/25 9:14:00 EDT, Height/Length Dosing, 64.7, kg, 04/22/25 9:14:00 EDT, Weight Dosing 3. Smoker (F17.200: Nicotine dependence, unspecified, uncomplicated) We strongly recommend to quit tobacco use. Cigarette smoking harms nearly every organ of the body, causes many diseases, and reduces the health of smokers in general. Quitting smoking lowers your risk for smoking-related diseases and can add years to your life. We encourage you to visit www.smokefree.gov access to helpful resources including free telephone support. If you decide on prescription treatment to help you quit, we would be happy to provide these. Ordered: Current tobacco smoker 1034F Screened for tobacco use AND received tobacco cessation intervention 4004F 4. BMI 28.0-28.9,adult (Z68.28: Body mass index [BMI] 28.0-28.9, adult) T (more content not included)... [facility] Comment on above: Result Comment: Elec tronically Signed By: German Sheehan DO\.br\Date and Time Signed: 05/02/25 12:07 EDT 04-22-2025 Hospital Discharge instructions Follow Up Care 04/22/2025 10:23:52 With:German Sheehan DO, [facility] Address: [facility] [address]- When:4 weeks Comments:4 WEEKS FOLLOWUP [facility] 04-09-2025 Hospital Discharge instructions Follow Up Care 04/09/2025 14:23:53 With:German Sheehan DO, [facility] Address: [facility] [address] [address]- When:4 weeks Comments:4 WEEKS FOLLOWUP [facility] 02-27-2025 Evaluation + Plan note Future Scheduled TestsXR Shoulder Complete Right 6/5/25XR Spine Cervical 4 or 5 Views /5/25XR Spine Lumbosacral Minimum 4 Views //25XR Spine Thoracic 3 Views 25 [facility] 02-20-2025 Note [facility] Cardiology Clinic Note Chief Complaint: Patient [...] past medical history of Asthma, Bipolar depression (CMS/[facility]), Chest pain, COPD (chronic obstructive pulmonary disease) (CMS/[facility]), GERD (gastroesophageal reflux disease), Hypertension, PTSD (post-traumatic [...] if her RV (more content not included)... [facility] 02-05-2025 Note [facility] Cardiology Clinic Note Chief Complaint: Patient is here today for a 6 month follow up. Patient states from a cardiac stand point she feels ok. Patient states things were going well she fell on 02/02 and bruised her right rib area, which radiates into chest and breast area on her left side, patient states she went to [facility] ER and her blood pressure was up in the ER. 160/88. Patient states she when to [facility] yesterday and was told about the high [...] past medical history of Asthma, Bipolar depression ([facility]), Chest pain, COPD (chronic obstructive pulmonary disease) (CMS/HCC), GERD (gastroesophageal reflux disease), Hypertension, PTSD (post-traumatic [...] Recent fall Plan (more content not included)... [facility] 02-04-2025 Note Patient Education Orthopedics Rib [...] for lung collapse and pneumonia. ??? Medicines. Zwuy-uzf-szgcvuc or prescription medicines may be given to control pain. ??? Injection of a numbing medicine around the nerve near your injury (nerve block). Follow these instructions at home: Medicines ??? Take zgjd-tym-kdnvfbw and prescription medicines only as told by your health care provider. ??? Ask your health care provider if the medicine prescribed to you: ? Requires you to avoid driving or using machinery. ? Can cause constipation. You may need to take these actions to prevent or treat constipation: ? Drink enough fluid to keep your urine pale yellow. ? Take ojrd-myu-uepzapp or prescription medicines. ? Eat foods that [...] Reviewed: 0 (more content not included)... [facility] 02-04-2025 Hospital Discharge instructions Follow Up Care 02/04/2025 09:58:12 With:German Sheehan DO, [facility] Address: [address] [address]- When:2 weeks Comments:2 WEEKS [facility] 02-02-2025 Hospital Discharge instructions Patient Education [...] risk for lung collapse and pneumonia. Medicines. Epcj-pfw-nbbrwwl or prescription medicines may be given to control pain. Injection of a numbing medicine around the nerve near your injury (nerve block). Follow these instructions at home: Medicines Take efhv-ovl-khqvtdh and prescription medicines only as told by your health care provider. Ask your health care provider if the medicine prescribed to you: ?Requires you to avoid driving or using machinery. ?Can cause constipation. You may need to take these actions to prevent or treat constipation: ?Drink enough fluid to keep your urine pale yellow. ?Take hint-pqn-klvvyoz or prescription medicines. ?Eat foods that are [...] provider. Document Revised: 12/16/2020 Document Reviewed: 12/16/2020 [employer] Patient Education 2023 [employer] Follow Up Care 02/02/2025 18:31:47 With:German Link Address: [address] [place], [place] [id number] Business (1) When:02/05/2025 19:39:38 [facility] 02-02-2025 Note ED Patient Education Note Orthopedics [...] for lung collapse and pneumonia. ??? Medicines. Sgyv-rpl-iqpmkkb or prescription medicines may be given to control pain. ??? Injection of a numbing medicine around the nerve near your injury (nerve block). Follow these instructions at home: Medicines ??? Take hrqj-bgo-fitffwn and prescription medicines only as told by your health care provider. ??? Ask your health care provider if the medicine prescribed to you: ? Requires you to avoid driving or using machinery. ? Can cause constipation. You may need to take these actions to prevent or treat constipation: ? Drink enough fluid to keep your urine pale yellow. ? Take jmto-cdo-dfpwjnj or prescription medicines. ? Eat foods that [...] Document Rev (more content not included)... [facility] 02-02-2025 Evaluation + Plan note Extrac [...] day(s), # 20 tab(s), Refills(s) 0, Pharmacy: [facility]/pharmacy #[id number], 149, cm, 02/02/25 18:37:00 EDT, Height/Length Dosing, 65, kg, 02/02/25 18:37:00 EDT, Weight Dosing triamcinolone, 40 mg = 1 mL, Susp-Inj, IntraMuscular, Once, Stop date 02/02/25 19:38:00 EDT, STAT, Start date 02/02/25 19:38:00 EDT, 02/02/25 19:38:00 EDT XR Ribs Unilat 3 Views Left w/ PA Chest [facility] [id number] Telephone encounter Note* Telephone Encounter - Georgie Rodríguez NP - 11/17/2024 2:32 PM EST HR OOO, [id number] Miscellaneous Notes* Telephone Encounter - Georgie Rodríguez NP - 11/17/2024 2:32 PM EST HR OOO, rx sent. documented in [facility] encounterMer[facility] [id number] NoteUTP CARDIOLOGY PROGRESS NOTE HPI: Nathaniel Marcial [...] understanding -Follow-up in cardiology clinic [facility] Hospital Discharge instructions Patient Education 11/26/2023 20:23:06 Contusion, Gqph-iu-Kxov Contusion A contusion is a deep bruise. [...] sitting or lying down. General instructions Take ohni-qen-hwgpdys and prescription medicines only as told by [...] is also called RICE. Youmay be given rfps-aes-fpvqfby medicines for pain. Contact a doctor if [...] provider. Document Revised: 07/07/2022 Document Reviewed: 07/07/2022 [employer] Patient Education 2022 [employer] Follow Up Care 11/26/2023 19:41:00 With:Carol DESHPANDE, Gracy Graff Address: [address] [place] [address]- When:11/29/2023 [facility]03-03-2024 Evaluation + Plan noteExtracted from: Title:ED Note Author:Jessica Bush PA-C. Date :11/26/23 1. Contusion of toe, left (S 90.122A: Contusion of left lesser toe(s) without damage to nail, initial encounter) Orders: XR Foot 3+ Views Left [facility]01-19-2024 Hospital Discharge instructions Patient Education 10/13/2023 18:55:44 Abdominal Pain, Adult, Pyjg-cc-Gtnz Abdominal Pain, Adult Many things can cause belly (abdominal) pain. Most times, belly pain is not dangerous. Many cases of belly pain can be watched and treated at home. Sometimes, though, belly pain is serious. Your doctor will try to find the cause of your belly pain. Follow these instructions at home: Medicines Take jsat-tal-crwfnar and prescription medicines only as told by [...] your belly pain for any changes. Take xjsp-mcn-pawgsay and prescription medicines only as told by [...] provider. Document Revised: 01/20/2020 Document Reviewed: 01/20/2020 [employer] Patient Education 2022 [employer] 10/13/2023 18:55:44 Constipation, Adult Constipation, Adult Constipation [...] as fried or sweet foods. These include burundian fries, hamburgers, cookies, candies, and soda. Drink enough fluid to keep your urine pale yellow. General instructions Exercise regularly or as told by your health care provider. Try to do 150 minutes of moderate exercise each week. Use the bathroom when you have the urge to go. Do not hold it in. Take vpgo-tyn-xanvhnt and prescription medicines only as told by [...] to keep your urine pale yellow. Take eqgb-hnh-ibgjyxd and prescription medicines only as told by your health care provider. This includes any fiber supplements. This information is not intended to replace advice given to you by your health care provider. Make sure you discuss any questions you have with your health care provider. Document Revised: 07/29/2020 Document Reviewed: 07/29/2020 [employer] Patient Education 2022 [employer] Follow Up Care 10/13/2023 15:41:06 With:Gracy Medina Address: [place] [place] [address]- Business (1) When:10/16/2023 18:37:35 Comments:Follow-up with your primary care provider in 3 to 5 days. If symptoms worsen, do not improve, or new symptoms arise please report back to emergency department for further evaluation. [facility]12-06-2023 Evaluation + Plan note Diagnostic Tests Pending * Clostridium difficile by PCR 08/30/23 [facility]08-17-2023 Miscellaneous Notes* Telephone Encounter - Marcie Chou [...] calling her back today. documented in this encounterAden[facility]08-[facility] Miscellaneous Notes* Telephone Encounter - Vinita Crabtree - 05/11/2023 10:34 AM EDT Left VM and sent Antavot message to patient to see if she wants to schedule shoulder surgery with Dr. Myers on 05/18. Waiting for call back documented in this encounterAdena Fayette [facility] Center07-17-2023 NoteHNO ID: [id number] Author: Sharita Myers MD Service: ? Author [...] As you know she is a 47-year-old jliy-kkxt-dgymfsqf female with complaints in her shoulder that [...] strength with resisted ex (more content not included)...[facility]07-17-2023 NoteHNO ID: [id number] Author: Bridgett Dye RT(R) Service: Radiology Author Type: Technologist Type: Progress [...] BY: RT Slim(R) April 10, 2023 12:25 PMAusten [facility]gs Center07-17-2023 History of Present illness Narrative* Sharita Myers [...] As you know she is a 47-year-old zyyt-sdrl-wtbeqtwo female with complaints in her shoulder that [...] TIME: 1:48 PM PAGER: documented in this encounterAdena [facility]07-06-2023 NoteHNO ID: [id number] Author: Corry Conroy Service: ? Author Type: [...] Signature: Corry Conroy March 30, 2023 2:00 [facility]07-06-2023 NotePatient Outreach (NETNAV) NATHANIEL MARCIAL ([id number]) 1975 F Date Time Provider Department 03/30/23 [...] DEPRESSION ASSESSMENT Never done Navigation Signature: Corry Cornoy March 30, 2023 2:00 PM Allergies As [...] gangr*07/08/2021 Encounter Status:Closed by CORRY LIN on 03/30/23[facility]07-06-2023 History of Present illness Narrative* Corry [...] 30, 2023 2:00 PM documented in this encounterAdena [facility] Center07-06-2023 NoteHNO ID: [id number] Author: Verónica Duarte PA-C Service: ? Author Type: Physician Deputy Controller Type: Progress Notes Filed: 03/30/2023 12:43 PM [...] seen Dr. Nate Gavin with [facility] in [place] and ordered a MRI of her shoulder [...] belly press test. Positive speeds test. Positive Ionia's test. Positive impingement signs. Positive Neer sign. Neurovascular intact distally with 2+ radial pulses bilaterally. Last XR Shoulder - Impression Only No resulted procedures found. X-rays right shoulder 01/19/23: AVN right hum (more content not included)... [facility]07-06-2023 Instructions* Patient Instructions* Verónica Duarte PA-C - 03/30/2023 11:38 AM EDT [address] [phone] ([place]) PT: [phone] documented in this encounterAdena Fayette [facility] Center07-06-2023 History of Present illness Narrative* Verónica Duarte PA-C - 03/30/2023 11:13 AM EDTAssociated Order(s): Large Joint Arthro/Inj: R glenohumeral Post-Procedure Diagnose(s): 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); Biceps tendonitis on right Images from the original note were not included. SERVICE DATE: March 30, 2023 PCP: Gracy Medina MD, Consult requested by Dr. Gracy Medina for [...] seen Dr. Nate Gavin with [facility] in [place] and ordereda MRI of her shoulder from [...] belly press test. Positive speeds test. Positive Ionia's test. Positive impingement signs. Positive Neer sign. [...] R glenohumeral Informed Consent Consent Obtained: Verbal Orting Protocol A moment to CARE was completed. [...] information obtained and documented by the physician assistant front end manager. I examined the patient and evaluated all available films and pertinent documents. We discussed the case and I agree withthe plans as outlined in this note. SIGNATURE: Verónica Duarte PA-C PATIENT NAME: Nathaniel Marcial DATE: March 30, 2023 TIME: 11:13 AM documented in this encounterAdena Fayette [facility] Center07-03-2023 NoteHNO ID: [id number] Author: Aureliano Vann DPM Service: ? Author [...] with the patient. - (more content not included)...[facility]07-03-2023 Instructions* Patient Instructions* Aureliano Vann DPM - 03/27/2023 1:47 PM EDT Please schedule PVR (blood flow) [phone] documented in this encounterAdena Fayette Medical Center07-03-2023 NoteHNO ID: [id number] Author: Jevon Lemons Service: ? Author Type: Foundry Superintendant Type: Progress Notes Filed: 03/27/2023 12:28 PM [...] BY: Jevon Lemons March 27, 2023 12:28 [facility]07-03-2023 History of Present illness Narrative* Aureliano Vann, CARISAM - 03/27/2023 12:56 PM EDT SERVICE DATE: [...] ICD10: M81.0 3. PAD (peripheral artery disease) ([facility]) - ICD9: 443.9, ICD10: I73.9 4. Allodynia [...] Nathaniel Marcial : 1975 To Department of Motor Vehicles and Public Safety Registration Division The above [...] contact them, they can be reached at [phone]. For [place] appointments: [phone]. Order Specific Question: Does consulting provider have [...] 2023 TIME: 12:58 PM documented in this encounterAdena [facility] Center07-03-2023 History of Present illness Narrative* [...] 27, 2023 12:28 PM documented in this encounterAdena Fayette Medical Center05-09-2023 Hospital Discharge instructions Patient Education [...] or salas your foot. General instructions Take ixrm-jxd-netozrb and prescription medicines only as told by [...] provider. Document Revised: 01/01/2021 Document Reviewed: 01/01/2021 [employer] Patient Education 2022 [employer] Follow Up Care 01/31/2023 09:38:16 With:Nate Gavin Address: [address] [place] [address] Business (1) When:02/03/2023 11:08:08 With:Gracy Medina Address: [address] [place] [address]- Business (1) When:02/03/2023 11:08:03 [facility]03-21-2023 Evaluation note* Encounter Date Diagnosis Assessment Notes Treatment Notes Treatment Clinical Notes Nov, Abdominal pain (ICD-10 - R10.9) [employer] Other 02-18-2023 Evaluation + Plan noteExtracted from: [...] NPO Diet XR Ankle 3+ Views Left [facility]02-18-2023 Hospital Discharge instructions Patient Education 11/12/2022 09:42:18 [place] - Ankle Fracture Post Op (Custom) (Custom) [place], [place] [facility] DISCHARGE INSTRUCTIONS: ANKLE FRACTURE [...] office evaluation. Nate Gavin, DO [facility] [address] [place] [address] Reviewed: 08 Follow Up Care 11/12/2022 06:46:16 With:Nate Gavin Address: [address] [place] [address] Business (1) When:2 weeks [facility]11-03-2022 NoteHNO ID: [id number] Author: Ronan Cabello MD Service: ? Author [...] our notes. Patient consented for study? [facility]2022 NoteHNO ID: [id number] Author: Donna Donis Ms Service: ? Author Type: ? Type: Progress Notes Filed: 07/28/2022 1:17 PM Note Text: GENERAL SURGERY CLINIC NOTE Nathaniel Marcial [id number] HPI: Nathaniel Marcial is a 46 year [...] not recall but is following with a pitching coach in 1 week. O: BP 125/89 Pulse [...] proceed. Donna Donis Ms Jul 28[facility] History of Present illness Narrative* Ronan [...] EDT GENERAL SURGERY CLINIC NOTE Nathaniel Marcial [id number] HPI: Nathaniel Marcial is a 46 year [...] not recall but is following with a pitching coach in 1 week. O: BP 125/89 Pulse [...] Ms Jul 28, 2022 documented in this encounterAdena Fayette [facility] Center11-03-2022 Nurse Note* Dalton Lee - [...] Temperature: No Drains: No documented in this encounterAdena Fayette Medical Center08-10-2022 Evaluation note* Encounter Date Diagnosis Assessment Notes Treatment Notes Treatment Clinical Notes Apr, Irritable bowel syndrome with diarrhea (ICD-10 - K58.0) Apr, Abdominal pain (ICD-10 - R10.9) Apr, Diarrhea (ICD-10 - R19.7) Apr, Bloating (ICD-10 - R14.0) [employer] Other 07-07-2022 Hospital Discharge instructions Patient Education [...] exercise. Managing pain, stiffness, and swelling Take whmu-chc-fsxqekj and prescription medicines only as told by [...] 09/11/2006 Document Revised: 08/24/2018 Document Reviewed: 10/11/2017 [employer] Patient Education 2020 [employer] Follow Up Care 03/31/2022 12:02:20 With:Carol DESHPANDE, Gracy Graff Address: [address] [place] [address]- When:04/03/2022 [facility]07-07-2022 Evaluation + Plan noteExtracted from: Title:ED Note Author:Jessica Bush PA-C Date :03/31/22 1. Right leg pain (M79.604: Pain in right leg) Orders: US LE Venous Duplex Right XR Femur Min 2 Views Right Future Appointments Appointment Date:04/20/2022 12:30:00 PM Scheduled Provider: Location:FT.MAMMOGRAM Appointment Type:MA Screen (FT) Appointment Date:04/20/2022 01:00:00 PM Scheduled Provider: Location:FT.CARDIO Appointment Type:CV Echo (FT) Future Scheduled Tests Radiology* Echo Transthoracic Complete 04/20/22 * MA Mamm Screen w/CAD if perf and 3D Robert 04/20/22 [facility]04-09-2022 Hospital Discharge instructions Patient Education 01/01/2022 20:12:12 [...] is stable enough for you to begin zbbzh-kg-zzgqaw exercises. You may also be prescribed pain [...] provider says that it is safe. Do bgnek-gu-nubtcg exercises only as told by your health [...] quitting, ask your health care provider. Take oiiz-rne-lufzsyk and prescription medicines only as told by your health care provider. Ask your health care provider if the medicine prescribed to you can cause constipation. You may need to take steps to prevent or treat constipation, such as: ?Drink enough fluid to keep your urine pale yellow. ?Take okkd-uss-bdyhwls or prescription medicines. ?Eat foods that are [...] 12/18/2001 Document Revised: 05/13/2019 Document Reviewed: 05/13/2019 [employer] Patient Education School Yourself. Follow Up Care 01/01/2022 16:44:18 With:Gale Truong Address: [address] [place] [address] [place] [address] Business (1) When:01/04/2022 19:33:35 Comments:Wear the sling when you are up and around you can take it off at night when you are sleeping. Please follow-up with orthopedic surgery for further evaluation management. Please return to the ED for any new or worsening symptoms. With:Gracy Medina Address: [place] [address] Business (1) When:Within 3 Day(s) [facility]04-09-2022 Evaluation + Plan noteExtracted from: Title:ED Note [...] 19:11:00 EDT, 01/01/22 19:11:00 EDT Sling Apply [facility] Future Appointments Appointment Date:02/06/2023 09:00:00 AM Scheduled Provider: [facility] Humerus/Shoulder (FT) Future Scheduled Tests Radiology* MRI Shoulder w/o Contrast Right 02/06/23 [facility] App[facility]ments Appointment Date:03/18/2025 05:00:00 PM Scheduled Provider:German Sheehan DO Location:[facility] Appointment Type: Open Future Scheduled Tests Radiology* XR Shoulder Complete Right 02/27/25 * XR Spine Cervical 4 or 5 Views 02/27/25 * XR Spine Lumbosacral Minimum 4 Views 02/27/25 * XR Spine Thoracic 3 Views 02/27/25 [facility] Evaluation + Plan note Future Appointments Appointment Date:05/02/2025 09:40:00 AM Scheduled Provider:German Sheehan DO Location:[facility] Appointment Type:FM Procedure Appointment Date:05/23/2025 11:00:00 AM Scheduled Provider:German Sheehan DO Location:[facility] Appointment Type:FM Open [facility] Evaluation + Plan note Future Appointments Appointment Date:05/23/2025 11:00:00 AM Scheduled Provider:German Sheehan DO Location:[facility] Appointment Type:FM Open Appointment Date:05/23/2025 11:00:00 AM Scheduled Provider: Location:[facility] Appointment Type:FM Medicare Wellness Initial [facility] Evaluation + Plan note Future Appointments Appointment Date:05/28/2025 02:00:00 PM Scheduled Provider:Beth Quinones MD Location:[facility] Appointment Type:BADH Screening Appointment Date:06/13/2025 02:00:00 PM Scheduled Provider:German Sheehan DO Location:[facility] Appointment Type: Open Appointment Date:05/20/2026 09:30:00 AM Scheduled Provider: Location:[facility] Appointment Type:FM Medicare Wellness Subsequent Future Scheduled Tests Laboratory* Comprehensive Metabolic Panel 05/23/25 * Lipid Panel 05/23/25 Radiology* BD Bone Density DEXA 05/23/25 * MA Mamm Screen w/CAD if perf and 3D Robert 05/23/25 [facility] [place] Evaluation + Plan note Future Appointments Appointment Date:06/03/2025 08:15:00 PM Scheduled Provider: Location:.SLEEP LAB_ Appointment Type:SUPERINTENDENT MEASUREMENT Sleep Study PSG (FT) Appointment Date:06/13/2025 02:00:00 PM Scheduled Provider:German Sheehan DO Location:[facility] Appointment Type: Open Appointment Date:07/02/2025 02:15:00 PM Scheduled [facility]: [facility] Type:MA Screen (FT) Appointment Date:07/02/2025 02:30:00 PM Scheduled Provider: Location:.[place] Appointment Type:BD Bone Density (FT) Appointment Date:05/20/2026 09:30:00 AM Scheduled Provider: Location:[facility] Appointment Type:FM Medicare Wellness Subsequent Future Scheduled Tests Laboratory* Comprehensive Metabolic Panel 05/23/25 * Lipid Panel 05/23/25 Radiology* BD Bone Density DEXA 07/02/25 * MA Mamm Screen w/CAD if perf and 3D Robert 07/02/25 [facility] Evaluation + Plan note Future Appointments Appointment Date:06/13/2025 02:00:00 PM Scheduled Provider:German Sheehan DO Location:[facility] Appointment Type: Open Appointment Date:07/02/2025 02:15:00 PM Scheduled Provider: Location:.M[facility]MO[facility] Appointment Type:MA Screen (FT) Appointment Date:07/02/2025 02:30:00 PM Scheduled Provider: Location:.BD Appointment Type:BD Bone Density (FT) Appointment Date:05/20/2026 09:30:00 AM Scheduled Provider: Location:[facility] Appointment Type:FM Medicare Wellness Subsequent Future Scheduled Tests Laboratory* Comprehensive Metabolic Panel 05/23/25 * Lipid Panel 05/23/25 Radiology* BD Bone Density DEXA 07/02/25 * MA Mamm Screen w/CAD if perf and 3D Robert 07/02/25 [facility] Evaluation + Plan note Future Appointments Appointment Date:07/02/2025 02:15:00 PM Scheduled Provider: Location:FT.[facility] Appointment Type:MA Screen (FT) Appointment Date:07/02/2025 02:30:00 PM Scheduled Provider: Location:FT.BD Appointment Type:BD Bone Density () Appointment Date:07/11/2025 11:20:00 AM Scheduled Provider:German Sheehan DO Location:[facility] Appointment Type:FM Open Appointment Date:05/20/2026 09:30:00 AM Scheduled Provider: Location:[facility] Appointment Type:FM Medicare Wellness Subsequent Future Scheduled Tests Laboratory* Comprehensive Metabolic Panel 05/23/25 * Lipid Panel 05/23/25 Radiology* BD Bone Density DEXA 07/02/25 * MA Mamm Screen w/CAD if perf and 3D Robert 07/02/25 [facility] Evaluation note* Diagnosis Incisional hernia, without obstruction or gangrene- Primary Incisional hernia without mention of obstruction or gangrene [facility] Diagnosis Pain- Primary Generalized pain [facility]* Diagnosis 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, subsequent encounter- Primary Osteoporosis, unspecified osteoporosis type, unspecified pathological fracture presence PAD (peripheral artery disease) ([facility]) Peripheral vascular disease, unspecified Allodynia Disturbance of skin sensation Nicotine use disorder, F17.2 Tobacco use disorder documented [facility] this [facility]* Diagnosis Pain Generalized pain [facility]* Diagnosis 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)- Primary Incomplete tear of right rotator cuff, unspecified whether traumatic Biceps tendonitis on right [facility]* Diagnosis 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)- Primary [facility] Diagnosis Other osteoporosis without current pathological fracture (CMS/HCC) [facility]* Diagnosis Other constipation Generalized abdominal pain Abdominal pain, generalized documented in this encounter [facility]* Diagnosis C. difficile enteritis- Primary Intestinal infection due to clostridium difficile documented in this encounter [facility] general Narrative - Reported* Type Description Date Medical History bipolar Medical History asthma Medical History GERD Medical History IBS Surgical History C section-2X Surgical History x 2 Surgical History laparoscopy Surgical History appendectomy Surgical History hernia-10X Surgical History multiple hernia repairs Surgical History hysterectomy Surgical History back Surgical History back surgery Hospitalization History see above [employer] Other Hospital course Narrative No data available for this section [facility] Dis[facility] instructions No data available for this section [facility] No data available for this section [facility] ([facility])* Diagnostic Procedure Only (Routine) - Authorized Specialty Diagnoses / Procedures Referred By Елена westfall Referred To Contact XR IMAGING Diagnoses Pain Procedures XR ANKLE GENERAL 3V AP/LAT/OBL LEFT RADEX ANKLE COMPLETE MINIMUM 3 VIEWS Aureliano Vann DPM [address] [place] [address] Xr Imaging Referral ID Status Reason Start Date Expiration Date Visits Requested Visits Authorized [id number] Authorized Auto-Generat ed Referral 03/08/2023 04/06/2024 1 1 [facility] for referral (narrative)* Outpatient Procedure (Routine) - Pending Review Specialty Diagnoses / Procedures Referred By Елена t Referred To Contact [facility] Diagnoses PAD (peripheral artery disease) ([facility]) Procedures PVR LEG UNL VAS LAB NON-INVASIVE PHYSIOLOGIC STUDY EXTREMITY 3 LEVLS Aureliano Vann DPM [address] [place] [address] [facility] [place] [id number] [facility] [address] Referral ID Status Reason Start Date Expiration Date Visits Requested Visits Authorized [id number] Pending Review Auto-Generat ed Referral 03/27/2023 03/26/2024 1 1 * Consult, Test, Treat (Routine) - Authorized Specialty Diagnoses / Procedures Referred By Елена t Referred To Contact Pain Management Diagnoses 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, subsequent encounter Allodynia Procedures CONSULT TO PAIN MGT OFFICE/OUTPATIENT NEW HIGH MDM 60-74 MINUTES Aureliano Vann DPM [address] [place] [id number] Referral ID Status Reason Start Date Expiration Date Visits Requested Visits Authorized [id number] Authorized PCP Requested Referral 03/27/2023 03/26/2024 1 1 [facility] for referral (narrative)* Diagnostic Procedure Only (Routine) - Closed Specialty Diagnoses / Procedures Referred By Елена westfall Referred To Contact XR IMAGING Diagnoses Pain Procedures XR ANKLE GENERAL 3V AP/LAT/OBL LEFT RADEX ANKLE COMPLETE MINIMUM 3 VIEWS Aureliano Vann DPM [address] [place] [address] Xr Imaging Referral ID Status Reason Start Date Expiration Date V isits Requested Visits Authorized [id number] Closed Auto-Generate d Referral 03/08/2023 04/06/2024 1 1 [facility] for referral (narrative)* Diagnostic Procedure Only (Routine) - Closed Specialty Diagnoses / Procedures Referred By Елена t Referred To Contact XR IMAGING Diagnoses 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) Procedures XR SHOULDER GENERAL 3V OR MORE AP/TRUE AP/OTHER RIGHT RADEX SHOULDER COMPLETE MINIMUM 2 VIEWS Sharita Myers MD [address] [place] [address] Xr Imaging Referral ID Status Reason Start Date Expiration Date V isits Requested Visits Authorized [id number] Closed Auto-Generate d Referral 04/10/2023 05/09/2024 1 1 [facility]* Diagnostic Procedure Only (Routine) - Closed Specialty Diagnoses / Procedures Referred By Елена westfall Referred To Contact XR IMAGING Diagnoses Pain Procedures XR ANKLE GENERAL 3V AP/LAT/OBL LEFT RADEX ANKLE COMPLETE MINIMUM 3 VIEWS Aureliano Vann, NELDA [address] [place] [address] Xr Imaging Referral ID Status Reason Start Date Expiration Date V isits Requested Visits Authorized [id number] Closed Auto-Generate d Referral 03/08/2023 04/06/2024 1 1 [facility] Summary Purpose Family History No [...] Found No data available for this section Advance Directives No Advanced Directives Records FoundNo [...] HIGH COMPLEX 45 MINS Verónica Duarte PA-C [address] [place] [address] [facility] [place] [address] Referral ID Status Reason Start Date Expiration Date Visits Requested Visits Authorized [id number] Authorized PCP Requested Referral Auto-Generate d Referral [...] and content) DATE CREATED AUTHOR 03/30/2018 [facility] DATE CREATED AUTHOR AUTHOR'S ORGANIZ ATION 01/20/2023 [facility] DATE CREATED AUTHOR AUTHOR'S ORGANIZ ATION 03/03/2023 [facility] DATE CREATED AUTHOR AUTHOR'S ORGANIZ ATION 04/14/2023 [facility] DATE CREATED AUTHOR AUTHOR'S ORGANIZ ATION 05/18/[address] [facility] DATE CREATED AUTHOR AUTHOR'S ORGANIZ ATION 10/18/2023 [facility] EPIC DATE CREATED AUTHOR AUTHOR'S ORGANIZ ATION 04/17/[address] [facility] DATE CREATED AUTHOR AUTHOR'S ORGANIZ ATION 04/29/2025 [facility] DATE CREATED AUTHOR AUTHOR'S ORGANIZ ATION 06/08/2025 [facility] DATE CREATED AUTHOR AUTHOR'S ORGANIZ ATION 06/11/2025 [facility] DATE CREATED AUTHOR AUTHOR'S ORGANIZ ATION 06/13/2025 [facility] Care Team (unrecognized sect ion and content) Personnel Name: German Sheehan DO Address: [address] [address]- Telecom: Name: NICOLE LEON CNPELLE Sapna Address: [address] [facility] [place] [address]- Telecom: Research Nurse Relationship Specialty Start Date End Date Gracy Medina MD [address] [place], [place] [id number] PCP - General Family Medicine 04/11/21 Research Nurse Relationship Specialty Start Date End Date Gracy Medina MD [address] [place], [place] [id number] PCP - General Family Medicine 04/11/21 Gracy Medina MD [address] [place] [address] Referring Family Medicine 03/07/23 Research Nurse Relationship Specialty Start Date End Date Gracy Medina MD [address] [place] [address] PCP - General Family Medicine 04/11/21 Gracy Medina MD [address] [place] [address] Referring Family Medicine 03/07/23 Research Nurse Relationship Specialty Start Date End Date Gracy Medina MD [address] [place] [address] PCP - General Family Medicine 04/11/21 Gracy Medina MD [address] [place] [address] Referring Family Medicine 03/07/23 Research Nurse Relationship Specialty Start Date End Date Gracy Medina MD [address] [place] [address] PCP - General Family Medicine 04/11/21 Gracy Medina MD [address] [place] [address] Referring Family Medicine 03/07/23 Research Nurse Relationship Specialty Start Date End Date Gracy Medina MD [address] [place] [address] PCP - General Family Medicine 04/11/21 Gracy Medina MD [address] [place] [address] Referring Family Medicine 03/07/23 Research Nurse Relationship Specialty Start Date End Date Gracy Median MD [address] [place] [address] PCP - General Family Medicine 04/11/21 Gracy Medina MD [address] [place] [address] Referring Family Medicine 03/07/23 Research Nurse Relationship Specialty Start Date End Date Gracy Medina MD [address] [place] [address] PCP - ACO Reach 02/16/23 Unallocated, [place] [address] PCP - General Family Medicine 06/26/24 Research Nurse Relationship Specialty Start Date End Date Gracy Medina MD [address] [place] [address] PCP - ACO Reach 02/16/23 UnallocatedJeremías MD [address] [place] [address] PCP - General Family Medicine 06/26/24 Research Nurse Relationship Specialty Start Date End Date Gracy Medina MD [address] [place] [address] PCP - General Family Medicine 04/11/21 Gracy Medina MD [address] [place] [address] Referring Family Medicine 03/07/23 German Sheehan DO [address] [place] [address] Referring Family Medicine 03/04/25 REASON FOR VISIT (unrecogniz ed section and [...] or prosecute any alcohol or drug abuse patient.[facility] the event this information is protected by the Federal Confidentiality of Alcohol and Drug Abuse Patient Records regulations: The Federal rules restrict any use of the information to criminally investigate or prosecute any alcohol or drug abuse patient.[facility] Center[facility] the event this information is protected by the Federal Confidentiality of Alcohol and Drug Abuse Patient Records regulations: The Federal rules restrict any use of the information to criminally investigate or prosecute any alcohol or drug abuse patient.[facility] Center[facility] the event this information is protected by the Federal Confidentiality of Alcohol and Drug Abuse Patient Records regulations: The Federal rules restrict any use of the information to criminally investigate or prosecute any alcohol or drug abuse patient.[facility] Center[facility] the event this information is protected by the Federal Confidentiality of Alcohol and Drug Abuse Patient Records regulations: The Federal rules restrict any use of the information to criminally investigate or prosecute any alcohol or drug abuse patient.[facility] CenterIn the event this information is protected by the Federal Confidentiality of Alcohol and Drug Abuse Patient Records regulations: The Federal rules restrict any use of the information to criminally investigate or prosecute any alcohol or drug abuse patient.[facility] CenterIn the event this information is protected by the Federal Confidentiality of Alcohol and Drug Abuse Patient Records regulations: The Federal rules restrict any use of the information to criminally investigate or prosecute any alcohol or drug abuse patient.[facility] CenterIn the event this information is protected by the Federal Confidentiality of Alcohol and Drug Abuse Patient Records regulations: The Federal rules restrict any use of the information to criminally investigate or prosecute any alcohol or drug abuse patient.[facility] CenterIn the event this information is protected by the Federal Confidentiality of Alcohol and Drug Abuse Patient Records regulations: The Federal rules restrict any use of the information to criminally investigate or prosecute any alcohol or drug abuse patient.[facility] CenterIn the event this information is protected by the Federal Confidentiality of Alcohol and Drug Abuse Patient Records regulations: The Federal rules restrict any use of the information to criminally investigate or prosecute any alcohol or drug abuse patient.[facility] FOR RECORDS PERTAINING TO PATIENTS [...] BE BASED ON THE PRIMARY CLINICAL RECORDS. [facility]. provides no warranty or guarantee of the accuracy or completeness of information in this document.
--- NOTE | 2025-06-14 17:36 | ED.GENADUL1 ---
HPI HPI - General Adult General Chief complaint: Anxiety Stated complaint: Anxiety Time Seen by Provider: 06/14/25 17:18 Source: patient Mode of arrival: walk-in Limitations: no limitations History of Present Illness HPI narrative: 49-year-old female presents for panic attacks. She has been having them since last night. She is not homicidal or suicidal and has not done anything to harm herself. She has no thoughts of harming herself. She is on Xanax at home but she states it does not have an effect on her. She has been on this 0.5 mg Xanax for 11 years. Related Data Home Medications ?Medication ?Instructions ?Recorded ?Confirmed albuterol sulfate 90 mcg/actuation 2 inh inhalation Q6H PRN shortness 12/13/23 12/21/23 aerosol inhaler of breath or wheezing alendronate 70 mg tablet 70 mg PO .weekly 12/13/23 12/21/23 alprazolam 0.5 mg tablet 0.5 mg PO TID PRN anxiety 12/13/23 12/21/23 dicyclomine 20 mg tablet 20 mg PO TID 12/13/23 12/21/23 lisinopril 5 mg tablet 5 mg PO DAILY 12/13/23 12/21/23 methocarbamol 750 mg tablet 750 mg PO Q8H PRN muscle spasm 12/13/23 12/21/23 metoprolol succinate 100 mg 100 mg PO DAILY 12/13/23 12/21/23 tablet,extended release 24 hr pantoprazole 40 mg tablet,delayed 40 mg PO DAILY 12/13/23 12/21/23 release quetiapine 25 mg tablet 25 mg PO QPM 12/13/23 12/21/23 quetiapine 50 mg tablet 50 mg PO QPM 12/13/23 12/21/23 Previous Rx's ?Medication ?Instructions ?Recorded aspirin 81 mg tablet,delayed 81 mg PO BID 30 days #60 tabs 12/21/23 release (Adult Low Dose Aspirin) cefadroxil 500 mg capsule 500 mg PO BID 7 days #14 caps 12/21/23 ondansetron 4 mg disintegrating 4 mg PO Q8H PRN nausea and 12/21/23 tablet vomiting 5 days #15 tabs oxycodone-acetaminophen 5 mg-325 1 tab PO Q6H PRN pain 7 days #28 12/21/23 mg tablet (Percocet) tabs sennosides 8.6 mg tablet (Senna 8.6 mg PO DAILY PRN constipation 7 12/21/23 Laxative) days #7 tabs tizanidine 2 mg tablet 2 mg PO TID PRN muscle spasticity 12/21/23 7 days #21 tabs diclofenac sodium 75 mg 75 mg PO BID PRN pain #20 tabs 02/23/25 tablet,delayed release oxycodone-acetaminophen 5 mg-325 1 tab PO Q8H PRN pain #9 tabs 02/23/25 mg tablet (Percocet) Allergies Allergy/AdvReac Type Severity Reaction Status Date / Time vancomycin Allergy Severe red man Verified 06/14/25 17:02 syndrome bacitracin Allergy Mild Rash Verified 06/14/25 17:02 lamotrigine (From Lamictal) AdvReac Severe Agitated Verified 06/14/25 17:02 clindamycin AdvReac c-diff Verified 06/14/25 17:02 Opioid HPI Opioid Management Most Recent Opioid Data: Last Pain Scale 10 02/23/25, 12:07 Ur Phencyclidine Scrn, (NEGATIVE) Negative 12/02/23, 21:00 Review of Systems ROS Narrative A ten point review of systems is negative except as noted above. [facility] Medical History (Updated 06/14/25 @ 18:45 by Feng Moya MD) Back pain ?M54.9 - Dorsalgia, unspecified (ICD-10) Arthritis ?M19.90 - Unspecified osteoarthritis, unspecified site (ICD-10) History of blood transfusion ?Z92.89 - Personal history of other medical treatment (ICD-10) Insomnia ?G47.00 - Insomnia, unspecified (ICD-10) PTSD (post-traumatic stress disorder) ?F43.10 - Post-traumatic stress disorder, unspecified (ICD-10) Depression ?F32.A - Depression, unspecified (ICD-10) Bipolar disorder ?F31.9 - Bipolar disorder, unspecified (ICD-10) Panic attacks ?F41.0 - Panic disorder [episodic paroxysmal anxiety] (ICD-10) COVID-19 (10/06/23) ?U07.1 - COVID-19 (ICD-10) Pneumonia ?J18.9 - Pneumonia, unspecified organism (ICD-10) GERD (gastroesophageal reflux disease) ?K21.9 - Gastro-esophageal reflux disease without esophagitis (ICD-10) Asthma ?J45.909 - Unspecified asthma, uncomplicated (ICD-10) Dyspnea on exertion ?R06.09 - Other forms of dyspnea (ICD-10) Scoliosis ?M41.9 - Scoliosis, unspecified (ICD-10) Palpitations ?R00.2 - Palpitations (ICD-10) Hypertension ?I10 - Essential (primary) hypertension (ICD-10) Hypokalemia ?E87.6 - Hypokalemia (ICD-10) Ectopic ?O00.90 - Unspecified ectopic without intrauterine (ICD-10) Ankle instability ?M25.373 - Other instability, unspecified ankle (ICD-10) Ankle joint disorder ?M19.079 - Primary osteoarthritis, unspecified ankle and foot (ICD-10) Presence of orthopedic implant of ankle ?Z96.7 - Presence of other bone and tendon implants (ICD-10) Foot pain ?M79.673 - Pain in unspecified foot (ICD-10) Cellulitis ?L03.90 - Cellulitis, unspecified (ICD-10) Ankle fracture ?S82.899A - Other fracture of unspecified lower leg, initial encounter for closed fracture (ICD-10) Degenerative disc disease Clostridium difficile diarrhea ?A04.72 - Enterocolitis due to Clostridium difficile, not specified as recurrent (ICD-10) Shoulder pain ?M25.519 - Pain in unspecified shoulder (ICD-10) Osteoarthritis ?M19.90 - Unspecified osteoarthritis, unspecified site (ICD-10) Osteoporosis ?M81.0 - Age-related osteoporosis without current pathological fracture (ICD-10) Surgical History (Updated 12/21/23 @ 06:40 by Holli Curtis RN) H/O section ?Z98.891 - History of uterine scar from previous surgery (ICD-10) History of esophagogastroduodenoscopy (EGD) ?Z98.890 - Other specified postprocedural states (ICD-10) History of colonoscopy ?Z98.890 - Other specified postprocedural states (ICD-10) H/O unilateral salpingectomy ?Z90.79 - Acquired absence of other genital organ(s) (ICD-10) History of hernia repair ?Z98.890 - Other specified postprocedural states (ICD-10) ?Z87.19 - Personal history of other diseases of the digestive system (ICD-10) History of ankle surgery ?Z98.890 - Other specified postprocedural states (ICD-10) History of spinal surgery ?Z98.890 - Other specified postprocedural states (ICD-10) History of hysterectomy ?Z90.710 - Acquired absence of both cervix and uterus (ICD-10) Family History (Updated 12/13/23 @ 14:07 by Rachna Madera NP) Other Cardiomyopathy Delayed recovery from anesthesia Family history of coronary artery disease Family history of heart disease Family history of myocardial infarction Family history of skin cancer Family history of stroke Social History (Updated 12/21/23 @ 06:43 by Holli Curtis RN) Within the past year, how often did you have a drink containing alcohol: monthly or less Smoking status: Current every day smoker What tobacco products do you use: cigarettes Packs per day: 1 Years smoked: 37 Smoking pack-years: 37.00 Non-prescribed substance use: cannabis (any form) Non-prescribed substance use details: states has her medical card Previous occupational history: disabled Highest level of school completed/degree received: 11th grade Little interest or pleasure in doing things: not at all Feeling down, depressed, or hopeless: not at all Exam Narrative Exam Narrative: Nurses note and vital signs reviewed and patient is not hypoxic. General: The patient appears well and in no apparent distress. Patient is resting comfortably on cart. Skin: Warm, dry, no pallor noted. There is no rash noted. Head: Normocephalic, atraumatic Eye: Normal conjunctiva, no drainage Ears, Nose, Mouth, and Throat: oral mucosa is moist. Nares patent. Cardiovascular: Regular Rate and Rhythm Respiratory: Patient is in no distress, no accessory muscle use, lungs are clear to auscultation, no wheezing, rales or rhonchi Back: non-tender GI: Soft and nontender Musculoskeletal: The patient has no evidence of calf tenderness, no pitting edema, symmetrical pulses noted bilaterally Neurological: A&O, normal speech Psychiatric: Cooperative Constitutional Vital Signs, click to edit/add: Last Vital Signs Temp 98.1 F 06/14/25 16:54 Pulse 67 06/14/25 16:54 Resp 18 06/14/25 16:54 BP 150/92 H 06/14/25 16:54 Pulse Ox 99 06/14/25 16:54 O2 Del Method Room Air 06/14/25 16:54 Course Vital Signs Vital signs: Vital Signs Temperature 98.1 F 06/14/25 16:54 Pulse Rate 67 06/14/25 16:54 Respiratory Rate 18 06/14/25 16:54 Blood Pressure 150/92 H 06/14/25 16:54 Pulse Oximetry 99 06/14/25 16:54 Oxygen Delivery Method Room Air 06/14/25 16:54 Temperature 98.1 F 06/14/25 16:54 Pulse Rate 67 06/14/25 16:54 Respiratory Rate 18 06/14/25 16:54 Blood Pressure 150/92 H 06/14/25 16:54 Pulse Oximetry 99 06/14/25 16:54 Oxygen Delivery Method Room Air 06/14/25 16:54 Medical Decision Making MDM Narrative Medical decision making narrative: The patient was given IV Valium and said that she was not feeling any better. Tests are ordered and pending and the patient is signed out to Dr. Bradshaw at change of shift. The patient is concerned about withdrawal from Coreg. Differential Diagnosis Differential Diagnosis: Anxiety Discharge Plan Discharge Patient Disposition: Still a Patient
[2025-06-14] MEDS: DIAZEPAM 10 MG/2 ML SYRINGE 5 MG IV (17:40)
[2025-06-14 19:04] LABS: Hematocrit 41.8 % (36.0-48.0); Hemoglobin 15.0 g/dL (12.0-16.0); Immature Granulocytes Abs Auto 0.04 10^3/uL (0.00-0.03); Immature Granulocytes Pct Auto 0.4 % (0.0-0.5); Lymphocytes Absolute Auto 2.8 10^3/uL (1.2-3.8); Mean Corpuscular HGB Conc 35.9 g/dL (29.9-35.2); Mean Corpuscular Hemoglobin 36.0 pg (26.7-34.0); Mean Corpuscular Volume 100.2 fL (81.0-99.0); Platelet Count 303 10^3/uL (150-450); Red Blood Count 4.17 10^6/uL (4.20-5.40); White Blood Count 9.7 10^3/uL (4.0-11.0)
[2025-06-14 19:13] LABS: Anion Gap 10.4; Blood Urea Nitrogen 11.0 mg/dL (7.0-18.0); Calcium 9.2 mg/dL (8.5-10.1); Carbon Dioxide 32.0 mmol/L (21.0-32.0); Chloride 92 mmol/L (98-107); Estimated GFR (African America >60 (>=60 mL/min/1.73m^2); Estimated GFR (Non-African Ame >60 (>=60 mL/min/1.73m^2); Glucose 132 mg/dL (74-106); Potassium 3.4 mmol/L (3.5-5.1); Sodium 131 mmol/L (136-145)
[2025-06-14] MEDS: KETOROLAC TROMETHAMINE 30 MG/ML VIAL IVP (20:24)
[2025-06-14] MEDS: ALPRAZOLAM 0.5 MG TABLET PO (20:24)
[2025-06-14 20:29] VITALS: BP 164/86; PULSE 52; O2SAT 98
== END 2025-06-14 20:35 | disposition home or self-care (01) ==
PROVIDERS: Emergency Provider Emergency Medicine; PCP Family Medicine
DX: F41.9 Anxiety disorder, unspecified (principal); Z79.899 Other long term (current) drug therapy; F17.210 Nicotine dependence, cigarettes, uncomplicated
CPT/HCPCS: 36415; 80048; 85025; 96374; 96375; 99285; J1885; J3360

== ENCOUNTER 2025-08-25 19:56 | Outpatient (OUT) | payer MEDICARE, MEDICAID, SELFPAY ==
--- OUTSIDE RECORDS SUMMARY | 2025-08-25 20:03 | XMS_ITS | Clinical Summary ---
Author Organization [facility] Address [address] [place] [address] Care Team Providers Care Automation Application Engineer Name Role Phone Link, German DESHPANDE Primary Care Provider [phone] Allergies Active AllergyReactionsCriticalityNoted AuxxEbrvnzpjJauirzftdfXmynght89/12/2004 ClindamycinDiarrhea,Aljbave0509/27/20234187Lyxdxzuaiul08/09/2022VancomycinOther 05/16/2004 Medications MedicationSigDispense QuantityRefillsLast FilledStart DateEnd DateStatus QUEtiapine (SEROquel) 50 mg tablet Take 50 mg by mouth at bedtime.Active ALPRAZolam (Xanax) 0.5 mg tablet Take 0.5 mg by mouth if needed in the morning, at noon, and at bedtime for anxiety.Active pantoprazole (ProtoNix) 40 mg EC tablet Take 40 mg by mouth before breakfast. Do not crush, chew, or split.Active methocarbamol (Robaxin) 750 mg tablet Take 750 mg by mouth if needed.Active dicyclomine (Bentyl) 20 mg tablet Take by mouth before breakfast, before lunch, before evening meal, and at bedtime.Active alendronate (Fosamax) 70 mg tablet Take 70 mg by mouth once a week.02/15/2023ctive Symbicort 160-4.5 mcg/actuation inhaler INHALE 2 PUFFS BY MOUTH TWICE A DAY *RINSE MOUTH AFTER USE*11/01/2022ctive lisinopril 5 mg tablet Indications:Essential hypertensionTAKE 1 TABLET BY MOUTH EVERY DAY IN THE MORNING 90 tablet ctive Additional Information Patient not taking.Reported on 07/19/2024 metoprolol succinate XL (Toprol-XL) 100 mg 24 hr tablet Indications:Dyspnea on exertionTAKE 1 TABLET BY MOUTH IN THE MORNING DO NOT CRUSH OR CHEW 90 tablet ctive albuterol 90 mcg/actuation inhaler INHALE 2 PUFFS EVERY 6 HOURS IF NEEDED FOR SHORTNESS OF BREATH OR WHEEZING. Active ARIPiprazole (Abilify) 10 mg tablet Take 10 mg by mouth in the morning.07/02/2024ctive omeprazole OTC (PriLOSEC OTC) 20 mg EC tablet Take 20 mg by mouth before breakfast. Do not crush, chew, or split.Active carvedilol (Coreg) 25 mg tablet Indications:Benign hypertensive heart disease without congestive heart failure Take 1 tablet (25 mg) by mouth with breakfast and with evening meal. 180 tablet ctive losartan (Cozaar) 25 mg tablet Indications:Benign hypertensive heart disease without congestive heart failure Take 1 tablet (25 mg) by mouth once daily as directed. 90 tablet ctive Active Problems ProblemNoted DateDiagnosed DatePre-operative cardiovascular examination 11/24/2023 Assessment & Plan (11/24/2023 1:43 PM EST): RCRI=0??points Class I Risk 3.9??% 30-day risk of , [place], or cardiac arrest From a cardiac perspective pt may proceed with ankle surgery, she is a low risk for a low risk procedure. Please monitor hemodynamics carefully and prevent any major fluid shifts. Change in bowel wtlcjc95ain in right fvuppwni45/01/2024 11/24/2023Weight lossurrent cscnxy00 Overview (04/13/2023): Added secondary to documentation in Social History. Added secondary to documentation in Social History. Staph ikvanbfsa93sthma04/13/2023hest pain04/13/2023OPD (chronic obstructive pulmonary disease)04/13/2023ipolar 1 hnireobt68/01/2023 04/13/2023ifficulty zxmzzmt69isplaced trimalleolar fracture of left lower leg, initial encounter for closed xunhpijf64 Essential jveydikeyqgw08 Assessment & Plan (11/24/2023 1:39 PM EST): Hypertension is uncontrolled Continue toprol 100 mg daily, and will add lisinopril 5 mg daily and will repeat BMP in about 1 week after starting. 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 Continue metoprolol 50 mg as prescribed Dyspnea on cssqvsit20/09/2022 Assessment & Plan (10/28/2022 2:55 PM EST): Stable currently with inhalers Will order PFT again and sleep study in light of c/o poor sleeping and orthopnea- waking up short of breath. 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 GERD without zvrrdaxoulr39/09/2022 Assessment & Plan (08/03/2022 1:08 PM EST): Follow-up with PCP Cnzcopkipkiq86/09/2022 Assessment & Plan (10/28/2022 2:55 PM EST): Continue toprol Assessment & Plan (08/03/2022 1:09 PM EST): PT with tachycardia intermittently and will order 48 hour holter monitor to assess for any arrythmia Continue Toprol Incisional hernia, without obstruction or shmzovev45/Nicotine use rptqitmw07/26/ost-operative state Abdominal painNeuropathyhronic post- traumatic mtcglnfx47Environmental fvyfuastf13/14/2019 04/13/2023Major depressive disorder, single episode, nqqcfmvlenf98/14/2019 04/13/2023cquired absence of both cervix and kdefpa89nxiety disorder, gmupwgeffve79Status post gkbjqsxnoivt03/14/2019 04/13/20230222Dogddtlke46/04/8904Vbkqzwolrj23/19/Idiopathic scoliosis and qccgipacmvojjf49 Overview (04/13/2023): Scoliosis (and kyphoscoliosis), idiopathic IMO4.1.23 Scoliosis (and kyphoscoliosis), idiopathic IMO4.1.23 Arthrodesis fkvmsv76Sciatica Immunizations ImmunizationAdministration DatesNext BikHEA5810/02/2021Influenza, Unspecified 06/25/2015Influenza, seasonal, /18/2015Influenza, seasonal,quadrivalent, preservative free06/10/2019Pneumococcal Polysaccharide PRV894710/06/20188301Qgie23/08/2022 Family History Medical HistoryRelationNameCommentsNo Known ProblemsBrotherHeart failureFather Transient ischemic attackFatherHeart failureMotherNo Known ProblemsSister RelationNameStatusCommentsBrotherFatherDeceasedMotherDeceasedSister Social History Tobacco UseTypesPacks/DayYears UsedDateSmoking Tobacco: Every DayCigarettes Smokeless Tobacco: Never Tobacco Cessation:Ready to Q uit: Not Asked; Counseling Given: Not Answered Alcohol UseStandard Drinks/WeekCommentsNot Asked0 (1 standard drink = 0.6 oz pure alcohol)occasionalUT Safety & EnvironmentAnswerDate RecordedFear of Current or Ex-PartnerNot on file11/16/2023Emotionally AbusedNot on file11/16/2023 Physically AbusedNot on file11/16/2023Sexually AbusedNot on file11/16/2023 Physically or Sexually AbusedNot on file11/16/2023CommentsUnknownSex and Gender InformationValueDate RecordedSex Assigned at SrjdmYqxcyk52/07/2025 1:51 PM EDTLegal HazYwtahq58/30/2022 12:06 AM EDTGender KythlbetIooyln57/07/2025 1:51 PM EDTSexual OrientationHeterosexual or Dmypmgxi35/07/2025 1:51 PM EDT Last Filed Vital Signs Vital SignReadingTime TakenCommentsBlood Lwpikxbg302/1330102/20/2025 1:48 PM EDT Piuku43119/29/2025 1:34 PM EDTTemperature--Respiratory Rate--Oxygen Saturation 97%02/20/2025 1:34 PM EDTInhaled Oxygen Concentration--Pforrv54.1 kg (137 lb) 02/20/2025 1:34 PM JEAHmquwd934.9 cm (4' 11 )02/20/2025 1:34 PM EDTBody Mass Index27.67002/20/2025 1:34 PM EDT Plan of Treatment Health MaintenanceDue DateLast DoneCommentsCT Cyfnnzapipgj05/14/1975FIT-DNA 1974FIT1974FOBT1974Medicare Annual Wellness (AWV)1974 Xrpbnaevfphrm17/14/1975Depression Vumkdjvsh13/14/1987Hepatitis B Vaccines (1 of 3 - 19+ 3-dose series)1993Pap Smear1995Cervical Cancer Screening 2004HPV/Hayjic8911/08/2004Pneumococcal Vaccine: Pediatrics (0 to 5 Years) and At-Risk Patients (6 to 64 Years) (2 of 2 - PCV)Mammogram 04/20/Zoster Vaccines (1 of 2)5COVID-19 Vaccine (3 - season)/, 01/18/2021Influenza Vaccine (#1)2025 06/10/2019, 06/25/2015, 06/12/20156396Exhuttvyocc68Colorectal Cancer Egkdbllkv72/22/2029Adult Judzzdq15HIB VaccinesAged Out No longer eligible based on patient's age to complete this topicHPV VaccinesAged OutNo longer eligible based on patient's age to complete this topicIPV Vaccines Aged OutNo longer eligible based on patient's age to complete this topic Meningococcal B VaccineAged OutNo longer eligible based on patient's age to complete this topicMeningococcal VaccineAged OutNo longer eligible based on patient's age to complete this topicRotavirus VaccinesAged OutNo longer eligible based on patient's age to complete this topic Insurance Care Teams Team MemberRelationshipSpecialtyStart DateEnd Date German Sheehan MD [address] [place] [address] [address] [place] [address] PCP - GeneralFamily Medicine02/20/25
--- OUTSIDE RECORDS SUMMARY | 2025-08-25 20:03 | XMS_ITS | Clinical Summary ---
Author Organization [facility] Address [address] [facility] [place] [address] Care Team Providers Care Aoc Plans Intelligence Officer Name Role Phone Unavailable Primary Care Provider Unavailabl e Source Comments The following information is NOT included in Care Everywhere downloads:Psychiatric notes, ECG results, Cardiac Rehab notes, Pulmonary Function notes, data from SmartForms (includes but not limited toPregnancy data,audiograms, eye exams, pre-surgical evaluation notes, well-child exam data).[facility] Active Problems ProblemNoted DateDiagnosed VlqdUlagrdun91/18/2004Arthrodesis hhjyjr6103/12/2004 Idiopathic scoliosis and haxctmrxjugujh41/18/2004 Overview (12/31/2022): Scoliosis (and kyphoscoliosis), idiopathic IMO4.1.23 Immunizations ImmunizationAdministration DatesNext DueDTP (CVX=01)08/02/2022Influenza, injectable, trivalent, preservative (ZCJ=860)06/12/2015Influenza, intradermal, trivalent, preservative free (IIV3) (KJQ=355)06/10/2019Pfizer Monovalent (12+ yrs) SARS-COV-2 (COVID-19) vaccine, mRNA, spike protein, LNP, pres. free, 30 mcg/0.3mL dose (XKT=118)02/08/2021,1Pneumococcal polysaccharide 23 Valent (PPSV23) (CVX=33)08/06/2019 Social History Tobacco UseTypesPacks/DayYears UsedDateSmoking Tobacco: Never Assessed CommentsUnknownSex and Gender InformationValueDate RecordedSex Assigned at Not on fileLegal ChuHzyyan15/04/2012 10:31 AM ESTGender IdentityNot on file Sexual OrientationNot on file Last Filed Vital Signs Vital SignReadingTime TakenCommentsBlood Hacrfdiz149/96246 5:36 AM EDT Wmmpd36356/19/2023 5:36 AM EDTTemperature--Respiratory Ruis123501/11/2023 5:36 AM EDTOxygen Knbcynmtmd71%01/11/2023 5:36 AM EDTInhaled Oxygen Concentration-- Weight--Height--Body Mass Index-- Plan of Treatment Health MaintenanceDue DateLast NdcoUiyksjzqWqzqzbrmitc95/14/1975HIV Test 1989Hepatitis C Onxigysv32/14/1993Tdap Hsnrjda8311/08/1992Hepatitis A (HAV) Vaccine (optional start 19+ years)1993Hepatitis B (HBV) Vaccine (1 of 3 - 19+ 3-dose series)1993Pap Smear11/08/19957310Qutlldkrtwn12/14/2015nnual Wellness Visit (G0438)03/25/2016CRC Bbuajgwbc99/14/0420Xywywncekep80/14/2020 Cologuard (Stool DNA)2019FIT2019Pneumococcal Vaccine(s) (50+ yrs) (2 of 2 - PCV)Shingles (RZV) Vaccine (1 of 2)5COVID-19 Vaccine (3 - 2024- season)/, 01/18/2021Influenza Vaccine (#1)/, 06/12/2015 Insurance
--- OUTSIDE RECORDS SUMMARY | 2025-08-25 20:03 | XMS_ITS | CCD ---
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 Name Role Phone PHYSICIAN, DEFAULT Unavailable Unavailable PHYSICIAN, DEFAULT Unavailable Unavailable Gracy Medina Primary Care Physician Gale Vasquez Unavailable Gracy Medina MD Primary Care Provider [phone] Sadiq Wilson Unavailable PROVIDER, UNKNOWN Attending Unavailable [...] PAY ., DR JAY Consulting Unavailable CAROL, LIBERTY Primary Care Unavailable KRISTINE ., FLORENCIA Consulting Unavailable SEBASTIAN, BERNARDA Admitting Unavailable BERNARDA CORTES Attending Unavailable CAROL, HIEN Primary Care Unavailable CAROLYN ., DR AGUS Katz Attending Unavailable CAROLYN ., DR AGUS Katz Admitting Unavailable CAROL, HIEN Primary Care Unavailable GALE VASQUEZ JR Admitting Unavailable GALE VASQUEZ JR Attending Unavailable GALE VASQUEZ JR Consulting Unavailable CAROL, LIBERTY Primary Care Unavailable CAROL, IHEN Admitting Unavailable CAROL, HIEN Attending Unavailable CAROL, LIBERTY Primary Care Unavailable Gracy Medina MD Primary Care Provider [phone] Gracy Medina MD Unavailable CAROL GRACY Primary [...] LEON Attending Unavailable Carol Gracy DESHPANDE Unavailable [phone] Unallocated MD, Noms Provider Primary Care Provi cinthya NONE, XXXX Primary Care Physician Unavailab le LinkGerman Primary Care Physician Gracy Medina MD Primary Care Provider Gracy Medina MD Unavailable Link German BETH Unavailable Jaspreet Cortez Attending Unavailab le Jaspreet Cortez Admitting Unavailab le Carol, Gracy Primary Care Unavailable BETH GUEVARA Attending Unavailable [place], EHAB Attending Unavailable [place], EHAB Attending Unavailable Link, German Watson Attending Unavailable Link, German Watson Attending Unavailable Link, German Watson Attending Unavailable Link, German Watson Attending Unavailable KRISTI STEVENS Attending Unavailabl e Link, German Watson Attending Unavailable Link, German Waston Admitting Unavailable Saul Palmer Attending Unavailable Nash Neal Attending Unavailable NONE, XXXX Referring Unavailable Vani Suarez Attending Unavailable Beth Quinones. Attending Unavailable Link, German Watson Attending Unavailable Link, German Watson Attending Unavailable Link, German Watson Attending Unavailable Link, German Watson Attending Unavailable Saul Palmer Attending Unavailable CARMENDelia SILVERIOrick A Admitting Unavailable CARMEN Noel A Attending Unavailable Wicho Rivas Consulting Unavailable [place], MD Sands Consulting Unavailable Mesilla ParkWicho Consulting Unavailable [place], Wicho Consulting Unavailable [place], Wicho Consulting Unavailable [place], Wicho Consulting Unavailable [place], Wicho Consulting Unavailable [place], Wicho Consulting Unavailable [place], Wicho Consulting Unavailable [place], Wicho Consulting Unavailable Noel MORALES Admitting Unavailable CARMEN, Noel Cotton Attending Unavailable MD Wicho Rivas Consulting Unavailable Link, DO German Watson Admitting Unavailable MAIA SHEPARD Attending Shar Campbell Attending Unavailable CARMENNoel Admitting Unavailable CARMEN, Noel Cotton Attending Unavailable Rob, Wicho Consulting Unavailable MD Wicho Rivas Consulting Unavailable [place], Wicho Consulting Unavailable [place], Wicho Consulting Unavailable [place], Wicho Consulting Unavailable [place], Wicho Consulting Unavailable [place], Wicho Consulting Unavailable [place], Wicho Consulting Unavailable [place], Wicho Consulting Unavailable DO Antonio Weinberg Attending Unavailable LEE SHEPARD Attending Unav ailable LEE SHEPARD Admitting Unav ailable DO German Sheehan Attending Unavailable Link, DO German Watson Attending Unavailable LEE SHEPARD Attending Unav ailSaul Fish Attending Unavailable Carol DESHPANDE, Gracy Graff Primary Care Provider Gracy Medina MD Unavailable [phone] Meliton Shepherd Attending Unavailable Rob, Wicho Consulting Unavailable Noel MORALES Admitting Unavailable MD Wicho Rivas Consulting Unavailable [place], Wicho Consulting Unavailable [place], Wicho Consulting Unavailable [place], Wicho Consulting Unavailable [place], Wicho Consulting Unavailable [place], Wicho Consulting Unavailable [place], Wicho Consulting Unavailable [place], Wicho Consulting Unavailable Link, DO German Watson Admitting Unavailable LEE SHEPARD Attending Unav ailable LEE SHEPARD Admitting Unav ailable LEE SHEPARD Attending Unav ailable German Sheehan Referring Unavailable Vesna Mckay Attending Unavailable Link, German Watson Referring Unavailable Link, German Watson Admitting Unavailable Link, Geramn Watson Attending Unavailable Link, German Watson Attending Unavailable Allergies Allergy ClassificationReported Allergen(s)Allergy TypeDate of OnsetReaction(s) Facility (20 sources)Bacitracin; Translations: [bacitracin]Drug Ffarfzd79-28-7121[facility] ([facility] sources)Vancomycin; Translations: [vancomycin]Drug Tnuqwql19-07-6899SirfaazRiverside [facility] Hospital (20 sources)Tape 1Drug allergyBlanchard Valley Health SystemComment on above: can use paper tape (20 sources)lamoTRIgine; Translations: [LAMOTRIGINE]Drug Suhhymy16-58-9666Fjuoll Status Change, Unknown (qualifier value)[facility] (1 source)BacitracinDrug Ajmyblt95-61-1459XeeFirelands [facility] (14 sources)lamoTRIgine; Translations: [LaMICtal]Drug AllergyFirelands [facility] (1 source)VancomycinDrug AllergyFirelands Regional Medical Center Repository (20 sources)Clindamycin; Translations: [clindamycin]Drug Uxeyzag76-06-8901 Unknown (qualifier value)[facility] (5 sources)LamotrigineAllergy to fcfurbcpu41-66-7125YhzcciqFTFN Healthcare (5 sources)Wound Dressing AdhesiveDrug Czobath43-25-3660TwmvXYXR Healthcare (1 source)BacitracinDrug Rfybhhi33-98-8214EahvtdwcrPeoples Hospital Rep[facility] (1 source)lamoTRIgineDrug Raweotc68-81-3288JmeljogjlPeoples Hospital Repository (1 source)VancomycinDrug Zpbiswr37-91-7395CngcrsacjPeoples Hospital Repository (13 sources)Adhesive Tape; Translations: [Tape]Propensity to adverse reactions (disorder)[facility] Repository (11 sources)hydroCHLOROthiazide; Translations: [hydrochlorothiazide]Drug Allergy Hyponatremia (disorder)[facility] Medications Current Medications MedicationDrug Class(es)DatesSig (Normalized)Sig (Original)acetaminophen 325 mg oral tablet (11 sources)Start: 00-93-8448ligz 2 tablets by mouth every six hours as needed for painacetaminophen 325 mg Tab 650 mg = 2 tab(s), Oral, q6hr, PRN Pain, Refills(s) 0 Start Date: 06/21/25 Status: Ordered Repeat number: 1Start: 08-42-6534rahb 2 tablets by mouth every six hoursacetaminophen (TYLENOL) 500 mg tablet Take 2 tablets by mouth every 6 hours. 04/19/2021 ActiveComment on above: Take 2 tablets by mouth every 6 hours.acetaminophen 325 mg / butalbital 50 mg / caffeine 40 mg oral tablet (1 source)Barbiturate, Central Nervous System Stimulant, MethylxanthineStart: 23-80-0442NDUX/butalbital/caffeine 325 mg-50 mg-40 mg Tab 1 tab(s), Oral, q4hr Headache, 12 tab(s), Refill(s)0, [facility]/pharmacy #[id number], 150.7, cm, 06/20/25 17:26:00 EDT, Height/Length Dosing, 60.5, kg, 06/20/25 18:12:00 EDT, Weight Dosing Start Date: 06/21/25 Status: Ordered Quantity: 12.0 Unit: tab(s) Repeat number: 1acetaminophen 325 mg / HYDROcodone bitartrate 5 mg oral tablet (3 sources)Opioid AgonistStart: 74-61-8885Ktszz 325 mg-5 mg oral tablet 1 tab(s), Oral, q6hr for pain, 12 tab(s), Refill(s) 0 Start Date: 01/01/22 Status: Orderedacetaminophen 325 mg / oxyCODONE hydrochloride 5 mg oral tablet (12 sources)Opioid AgonistStart: 84-72-0017uqux 1 tablet by mouth every eight hours as needed for painacetaminophen-oxycodone 325 mg-5 mg Tab TAKE 1 TABLET BY MOUTH EVERY 8 HOURS NEEDED FOR PAIN Start Date: 02/27/25 Status: Ordered Repeat number: 1Start: 58-39-8446uqqw 1 tablet by mouth every six hours as needed for painoxyCODONE-acetaminophen (Percocet) 5-325 MG tablet TAKE 1 TABLET BY MOUTH EVERY 6 HOURS NEEDED FOR PAIN FOR 7 DAYS 12/21/2023 ActiveStart: 31-31-5373Cllnqblz 5 mg-325 mg oral tablet See Instructions, 40 tab(s), Refill(s) 0, 1-2 tab(s) Oral q4hr, [id number], 149.9, cm, 11/12/22 6:57:00 EST, Height/Length Dosing, 65.4, kg, 11/12/22 6:57:00 EST, Weight Dosing Start Date: 11/12/22 Status: Ordered Quantity: 40.0 Unit: tab(s) Repeat number: 1albuterol 0.83 mg/ml inhalation solution (20 sources)beta2-Adrenergic AgonistStart: 63-75-2096gfyqziybx 0.083% Inh Teresita 3 mL 0.083% - 3mL dosing units, Inhalation, q4hr Wheezing, 225 mL, Refill(s) 3, dx. J45.909, [facility]/pharmacy #[id number], 150.7, cm, 06/20/25 17:26:00 EDT, Height/Length Dosing, 60.5,kg, 06/20/25 18:12:00 EDT, Weight Dosing Start Date: 06/23/25 Status: Ordered Quantity: 225.0 Unit: mL Repeat number: 4Start: 06-13-2025 albuterol 0.083% Inh Teresita 3 mL 0.083% - 3mL dosing units, Inhalation, q4hr Wheezing, 225 mL, Refill(s) 3, [facility]/pharmacy #[id number], 150.7, cm, 06/13/25 13:52:00 EDT, Height/Length Dosing, 60.4, kg, 06/13/2513:55:00 EDT, Weight Dosing Start Date: 06/13/25 Status: Ordered Quantity: 225.0 Unit: mL Repeat number: 4Start: 40-96-1093drsa 2 puff(s) by inhalation every six hours for wheezingalbuterol HFA 90 mcg/act inhaler Indications: Chronic obstructive pulmonary disease, unspecified COPD type ([facility]) INHALE 2 PUFFS EVERY 6 HOURS IF NEEDED FOR SHORTNESS OF BREATH OR WHEEZING 18 g 3 01/02/2024 ActiveStart: 49-37-4164ccqm 2 puff(s) by inhalation four times daily as needed for wheezingProAir HFA 90 mcg/inh inhalation aerosol 2 puff(s), Inhalation, QID PRN Wheezing, Refill(s) 0 StartDate: 11/11/12 Status: OrderedStart: 74-62-9742mknl 3 mL by inhalation every four hoursalbuterol 0.083% Inh Teresita 3 mL 0.083% - 3mL dosing units, Inhalation, q4hr Wheezing, Refill(s) 0 Start Date: 11/11/12 Status: Ordered Repeat number: 1 Start: 68-54-3345ahmi 3 mL by inhalation every four hours as neededalbuterol 0.083% Inh Teresita 3 mL 0.083% - 3mL dosing units, Inhalation, q4hr PRN Wheezing, Refill(s) 0Start Date: 11/11/12 Status: OrderedVentolin HFA ActiveAlbuterol Sulfate (2.5 MG/ 3 ML) 2.5 MG/3ML 0.083% Nebulization Solution (2 sources)Albuterol Sulfate (2.5 MG/ 3 ML) 2.5 MG/3ML 0.083% Nebulization Solution 3ml Inhalation 4 times a day Activealendronic acid 70 mg oral tablet (16 sources)BisphosphonateStart: 69-41-9204dpqlvwgpkiw 70 mg Tab 70 mg = 1 tab(s), Oral, q7day, # 12 tab(s), Refills(s) 0 Start Date: 02/27/25 Status: Ordered Quantity: 12.0 Unit: tab(s) Repeat number: 1Start: 12-04-2023 End: 72-49-4171jlhizonudrm (Fosamax) 70 MG tablet Indications: Other osteoporosis without current pathological fracture TAKE 1 TAB WEEKLY IN MORNING ON EMPTY STOMACH WITH FULL GLASS OF WATER.DO NOT EAT/LIE DOWN OCF69SQX 12 tablet 11/17/2024 ActiveALPRAZolam 1 mg oral tablet (20 sources)BenzodiazepineStart: 91-31-2156ksuc 1 tablet by mouth three times daily as needed for anxietyXanax 1 mg Tab 1 mg = 1 tab(s), Oral, TID, PRN for anxiety, # 90 tab(s), Refills(s) 1, Pharmacy: [facility]/pharmacy #[id number], 149.8, cm, 06/27/25 9:26:00 EDT, Height/Length Dosing, 58.8, kg, 06/27/25 9:26:00 EDT, Weight Dosing Start Date: 06/27/25 Status: Ordered Quantity: 90.0 Unit: tab(s) Repeat number: 2 Indications: Anxiety disorder, unspecified;Start: 11-12-2022 take 1 tablet by mouth three times daily as needed for anxietyXanax 0.5 mg Tab 0.5 mg = 1 tab(s), Oral, TID, PRN for anxiety, prn, Refills(s) 0 Start Date: 11/12/22 Status: Ordered Repeat number: 1ALPRAZolam ActiveComment on above:Take 0.5 mg by mouth.Amoxicillin (6 sources)Penicillin-class AntibacterialStart: 89-89-0073rfhvtkzvazs Amoxicillin daily as directed., Refills(s) 0 Start Date: 05/23/25 Status: Ordered Repeatnumber: 1aspirin 81 mg delayed release oral tablet (4 sources)Platelet Aggregation Inhibitor, Nonsteroidal Anti-inflammatory Drug Start: 76-99-7152myyr 1 tablet by mouth once dailyaspirin 81 mg Oral EC Tab 81 mg = 1 tab(s), Oral, Daily, # 30 tab(s), Refills(s) 0, Pharmacy: [facility]/pharmacy #[id number], 150.7, cm, 06/20/25 17:26:00 EDT, Height/Length Dosing, 60.5, kg, 06/20/25 18:12:00 EDT, Weight Dosing Start Date: 06/21/25 Status: Ordered Quantity: 30.0 Unit: tab(s) Repeat number: 1Start: 11-12-2022 End: 21-02-3213wvin 2 tablets by mouth once dailyaspirin 81 mg Oral EC Tab 162 mg = 2 tab(s), Oral, Daily, X 30 day(s), # 60 tab(s), Refills(s) 0, Pharmacy: [facility]/pharmacy #[id number], 149.9, cm, 11/12/22 6:57:00 EST, Height/Length Dosing, 65.4, kg, 11/12/22 6:57:00 EST, Weight Dosing Start Date: 11/12/22 Stop Date: 12/12/22 Status: Orderedatorvastatin 80 mg oral tablet (3 sources)HMG-CoA Reductase InhibitorStart: 02-42-5986wvuk 1 tablet by mouth at bedtimeatorvastatin 80 mg Tab 80 mg = 1 tab(s), Oral, Bedtime, # 30 tab(s), Refills(s) 0, [id number] 150.7, cm, 06/20/25 17:26:00 EDT, Height/Length Dosing, 60.5, kg, 06/20/25 18:12:00 EDT, Weight Dosing Start Date: 06/21/25 Status: Ordered Quantity: 30.0 Unit: tab(s) Repeat number: 1benzonatate 100 mg oral capsule (10 sources)Non-narcotic AntitussiveStart: 03-64-7128dten 2 capsules by mouth three times dailyTessalon 100 mg Cap 200 mg = 2 cap(s), Oral, TID, # 90 cap(s), Refills(s) 1, [id number] 150.7, cm, 02/27/25 10:37:00 EDT, Height/Length Dosing, 64.5, kg, 02/27/25 10:37:00 EDT, Weight Dosing Start Date: 02/27/25 Status: Ordered Quantity: 90.0 Unit: cap(s) Repeat number: 2 Indication s: Fracture of one rib, unspecified side, initial encounter for closed fracture; benztropine mesylate 1 mg oral tablet (10 sources)Anticholinergic, AntihistamineStart: 10-26-1945mxap 1 tablet by mouth twice dailybenztropine (COGENTIN) 1 mg tablet Take 1 tablet by mouth twice daily. 04/19/2021 ActiveComment on above:Take 1 tablet by mouth twice daily. Symbicort (17 sources)Corticosteroid, beta2-Adrenergic AgonistStart: 48-43-4457Vkqdaqsvu Inhalation, BID, Refill(s) 0 Start Date: 11/12/22 Status: Ordered Repeat number: 1Start: 11-25-9289Rjuigvplw Inhalation, BID, Refill(s) 0 Start Date: 11/12/22 Status: OrderedStart: 94-72-1939hdba 2 puff(s) by mouth twice dailySymbicort 160-4.5 MCG/ACT inhaler INHALE 2 PUFFS BY MOUTH TWICE A DAY *RINSE MOUTH AFTER USE* 11/01/2022 ActiveStart: 68-16-4256urch 2 puff(s) by mouth twice daily budesonide-formoterol (SYMBICORT) 160-4.5 mcg/actuation inhaler INHALE 2 PUFFS BY MOUTH TWICE A DAY*RINSE MOUTH AFTER USE* 11/01/2022 ActiveStart: 11-01-2022 take 2 puff(s) by mouth twice dailybudesonide-formoterol (SYMBICORT) 160-4.5 mcg/actuation inhaler INHALE 2 PUFFS BY MOUTH TWICE A DAY*RINSE MOUTH AFTER USE* 0 11/01/2022 ActiveComment on above:INHALE 2 PUFFS BY MOUTH TWICE A DAY *RINSE MOUTH AFTER USE*busPIRone hydrochloride 5 mg oral tablet (10 sources)busPIRone (BUSPAR) 5 mg tablet Take 30 mg by mouth twice daily. ActiveComment on above:Take 30 mg by mouth twice daily. carvedilol 25 mg oral tablet (7 sources)alpha-Adrenergic Zeeshan, beta-Adrenergic BlockerStart: 02-27-2025 take 1 tablet by mouth once dailycarvedilol 25 mg Tab 25 mg = 1 tab(s), Oral, Daily, Refills(s) 0 Start Date: 02/27/25 Status: OrderedRepeat number: 1Start: 17-01-3480nmoxyuectb 25 mg Tab = 2 tab(s), Oral, BIDWM, Refills(s) 0 Start Date: 02/27/25 Status: Ordered Repeat number: 1Cetirizine (2 sources)Histamine-1 Receptor AntagonistCetirizine HCl Activedicyclomine hydrochloride 20 mg oral tablet (20 sources)AnticholinergicStart: 04-22-2025 End: 09-55-4345mabg 1 tablet by mouth four times dailydicyclomine 20 mg Tab See Instructions, TAKE 1 TABLET BY MOUTH FOUR TIMES A DAY, # 360 tab(s), Refills(s) 1, Pharmacy: [id number], 150.7, cm, 05/02/25 9:45:00 EDT, Height/Length Dosing, 64.1, kg, 05/02/25 9:45:00 EDT, Weight Dosing Start Date: 05/15/25 Status: Ordered Quantity: 360.0 Unit: tab(s) Repeat number: 1Start: 10-13-2023 End: 21-00-2732ybeb 1 capsule by mouth four times dailyBentyl 10 mg Cap 10 mg = 1 cap(s), Oral, QID, X 14 day(s), # 56 cap(s), Refills(s) 0, Pharmacy: [id number], 150, cm, 10/13/23 15:54:00 EST, Height/Length Dosing, 60, kg, 10/13/23 15:54:00 EST, Weight Dosing Start Date: 10/13/23 Stop Date: 10/27/23 Status: OrderedStart: 40-37-4340fsziyoxqcbt (BENTYL) 20 mg tablet Take 20 mg by mouth. 0 11/11/2012 ActiveStart: 11-11-2012 End: 91-14-6213bhqp 1 tablet by mouth four times dailydicyclomine 20 mg Tab 20 mg = 1 tab(s), Oral, QID, X 14 day(s), # 56 tab(s), Refills(s) 2, [id number], 150.7, cm, 02/27/25 10:37:00 EDT, Height/Length Dosing, 64.5, kg, 02/27/25 10:37:00 EDT, Weight Dosing Start Date: 02/27/25 Stop Date: 04/10/25 Status: Ordered Quantity: 56.0 Unit: tab(s) Repeat number: 3Comment on above:Take 20 mg by mouth.docusate sodium 100 mg oral capsule (18 sources)Start: 39-83-0768slyd 1 capsule by mouth twice dailydocusate sodium (COLACE) 100 mg capsule Take 1 capsule by mouth twice daily. 14 capsule 04/19/2021 ActiveComment on above:Take 1 capsule by mouth twice daily.dronabinol 5 mg oral capsule (2 sources)CannabinoidStart: 20-92-4480hply 1 capsule by mouth every twelve hoursDronabinol 5 MG 1 CAPSULE Orally bid for 30 day(s) January, Active gabapentin 100 mg oral capsule (10 sources)Anti-epileptic Agenttake 1 capsule by mouth three times daily gabapentin (NEURONTIN) 100 mg capsule Take 100 mg by mouth three times daily. ActiveComment on above:Take 100 mg by mouth three times daily. hydroCHLOROthiazide 25 mg oral tablet (3 sources)Thiazide DiureticStart: 05-20-1812ancv 1 tablet by mouth once daily hydrochlorothiazide 25 mg Tab 25 mg = 1 tab(s), Oral, Daily, # 30 tab(s), Refills(s) 0, [id number] 150.7, cm, 05/23/25 11:21:00 EDT, Height/Length Dosing, 63.9, kg, 05/23/25 11:21:00 EDT, Weight Dosing Start Date: 06/05/25 Status: Ordered Quantity: 30.0 Unit: tab(s) Repeat number:1ibuprofen 600 mg oral tablet (8 sources)Nonsteroidal Anti-inflammatory DrugStart: 53-47-7221ftoy 1 tablet by mouth every eight hours as needed for painibuprofen 600 mg Tab 600 mg = 1 tab(s), Oral, q8hr, PRN as needed for pain, with food or milk, # 50tab(s), Refills(s) 0, [id number] 149.9, cm, 11/12/22 6:57:00 EST, Height/Length Dosing, 65.4, kg, 11/12/22 6:57:00 EST, Weight Dosing Start Date: 11/12/22 Status: Ordered Quantity: 50.0 Unit: tab(s) Repeat number: 1Lactulose (11 sources)Osmotic LaxativeStart: 71-02-2686wbionsmvu 10 g/15 mL Oral Syrup 20 gm/30 mL 10 gram = 15 mL, Oral, BID, Take with 8 ounces of water, # 240 mL, Refills(s) 0 Start Date: 11/11/12 Status: Ordered Quantity: 240.0 Unit: mL Repeat number:1Start: 35-99-8780rfxbnlusd 10 g/15 mL Oral Syrup 20 gm/30 mL 10 gram = 15 mL, Oral, BID, Take with 8 ounces of water, # 240 mL, Refills(s) 0 Start Date: 11/11/12 Status: OrderedStart: 61-95-3865mzmiufhgf 10 g/15 mL Oral Syrup 20 gm/30 mL 10 gram = 15 mL, Oral, BID, Take with 8 ounces of water, # 240 mL, Refills(s) 0, 0, Print Requisition Start Date: 11/11/12 Status: OrderedStart: 68-75-4180gcvkkflbn 10 g/15 mL Oral Syrup 20 gm/30 mL 10 gram = 15 mL, Oral, BID, Take with 8 ounces of water, # 240 mL, Refills(s) 0, 0, Print Requisition Start Date: 11/11/12 Status: OrderedLidocaine (5 sources)Antiarrhythmic, Amide Local AnestheticStart: 48-93-9907uwmqojxff 5% patch 2 patch(es), Topical, Daily, Refill(s) 0 Start Date: 06/23/25 Status: Ordered Repeat number: 1Start: 41-70-7108zebryfjyz Top 5% film Patch 1 patch(es), Topical, Daily, 30 patch(es), Refill(s) 5, apply 12 hours on and 12 hours off daily, [facility]/pharmacy #[id number], 150.7, cm, 04/22/25 9:14:00 EDT, Height/Length Dosing, 64.7, kg, 04/22/25 9:14:00 EDT, Weight Dosing Start Date: 04/22/25 Status: Ordered Quantity: 30.0 Unit: patch(es) Repeat number: 6 Indications: Other forms of scoliosis, thoracic region; Primary osteoarthritis, right shoulder;Start: 03-30-2023 End: 73-83-3207tmupaszzt (PF) 10 mg/mL (1 %) 4 mL injection (XYLOCAINE) linaclotide 0.145 mg oral capsule (10 sources)Guanylate Cyclase-C AgonistStart: 12-25-5714ISIXTKL 145 mcg capsule TAKE 1 CAPSULE DAILY AT LEAST 30 MINUTES BEFORE THE FIRST MEAL OF THE DAY ON AN EMPTY STOMACH 09/15/2020 ActiveComment on above:TAKE 1 CAPSULE DAILY AT LEAST 30 MINUTES BEFORE THE FIRST MEAL OF THE DAY ON AN EMPTY STOMACHlisinopril 5 mg oral tablet (1 source)Angiotensin Converting Enzyme InhibitorStart: 11-24-2023 End: 06-89-1228gksd 1 tablet by mouth in the morninglisinopril 5 MG tablet Take 5 mg by mouth in the morning. 11/24/2023 11/23/2024 Activelosartan potassium 25 mg oral tablet (6 sources)Angiotensin 2 Receptor BlockerStart: 74-79-8073jiet 1 tablet by mouth once dailylosartan 25 mg Tab 25 mg = 1 tab(s), Oral, Daily, # 90 tab(s), Refills(s) 0 Start Date: 02/27/25 Status: Ordered Quantity: 90.0 Unit: tab(s) Repeat number: 1magnesium hydroxide 80 mg/ml oral suspension (11 sources)Start: 59-59-5259avjk 30 mL by mouth twice dailymagnesium hydroxide (MOM) 400 mg/5 mL suspension Take 30 mL by mouth twice daily. 04/19/2021 Active Comment on above:Take 30 mL by mouth twice daily.methocarbamol 750 mg oral tablet (5 sources)Muscle RelaxantStart: 55-55-9983nfhy 1 tablet by mouth three times daily as needed for painmethocarbamol (Robaxin) 750 MG tablet Indications: Dorsalgia, unspecified TAKE 1 TABLET BY MOUTH THREE TIMES A DAY NEEDED FOR PAIN 90 tablet 1 01/02/2024 ActiveStart: 01-01-2022 End: 85-81-9774flcc 1 tablet by mouth three times dailyRobaxin 500 mg Tab 500 mg = 1 tab(s), Oral, TID, X 3 day(s), # 12 tab(s), Refills(s) 0 Start Date: 01/01/22 Stop Date: 01/04/22 Status: OrderedMethocarbamol 750 MG Oral for 20 Days Active 24 hr metoprolol succinate 25 mg extended release oral tablet (20 sources)beta-Adrenergic BlockerStart: 35-95-2579biatyzjpmb succinate 25 mg ER Tab 25 mg = 1 tab(s), Oral, Daily, Take with 50mg XR metoprolol for total of 75mg XR daily, # 30 tab(s), Refills(s) 1, Pharmacy: [facility]/pharmacy #[id number], 149.8, cm, 07/11/25 11:31:00 EDT, Height/Length Dosing, 62.6, kg, 07/11/25 11:31:00 EDT, Weight Dosing Start Date: 07/11/25 Status: Ordered Quantity: 30.0 Unit: tab(s) Repeat number: 2Start: 62-28-8853fpsm 1 tablet by mouth once dailyToprol XL 100 mg Tab-ER 100 mg = 1 tab(s), Oral, Daily, # 90 tab(s), Refills(s) 4, [id number] 149.8, cm, 06/27/25 9:26:00 EDT, Height/Length Dosing, 58.8, kg, 06/27/25 9:26:00 EDT,Weight Dosing Start Date: 06/27/25 Status: Ordered Quantity: 90.0 Unit: tab(s) Repeat number: 5 Indications: Essential (primary) hypertension;Start: 03-52-0057zyju 1 tablet by mouth once dailyToprol XL 50 mg Tab-ER 50 mg = 1 tab(s), Oral, Daily, # 30 tab(s), Refills(s) 2, [id number] 150.7, cm, 06/13/25 13:52:00 EDT, Height/Length Dosing, 60.4, kg, 06/13/25 13:55:00 EDT,Weight Dosing Start Date: 06/17/25 Status: Ordered Quantity: 30.0 Unit: tab(s) Repeat number: 3Start: 07-14-2022 take 1 tablet by mouth at bedtimemetoprolol 50 mg ER Tab 50 mg = 1 tab(s), Oral, Bedtime, Refills(s) 0 Start Date: 11/12/22 Status: Ordered Repeat number: 1take 1 tablet by mouth every twenty-four hours in the morningmetoprolol succinate XL (Toprol-XL) 50 MG 24 hr tablet Take 100 mg by mouth in the morning. Active Metoprolol Succinate ER 25 MG Oral for 30 Days ActiveComment on above:TAKE 1 TABLET BY MOUTH EVERY DAY FOR 90 DAYSmetroNIDAZOLE 500 mg oral tablet (2 sources)Nitroimidazole AntimicrobialStart: 64-44-3362jrug 1 tablet by mouth every eight hoursmetroNIDAZOLE 500 MG 1 tablet Orally Three times a day for 10 day(s) Apr, ActiveMilk of Magnesia 8% oral suspension (10 sources)Start: 89-65-6637heof 2.4 g by mouth twice daily as needed for constipationMilk of Magnesia 8% oral suspension 2.4 gram = 30 mL, Oral, BID, PRN for constipation, Take with 8 ounces of water, # 360 mL, Refills(s) 0 Start Date: 11/11/12 Status: Ordered Quantity: 360.0 Unit: mLRepeat number: 1Start: 38-79-8752wwrg 2.4 g by mouth twice daily as needed for constipationMilk of Magnesia 8% oral suspension 2.4 gram = 30 mL, Oral, BID, PRN for constipation, Take with 8 ounces of water, # 360 mL, Refills(s) 0 Start Date: 11/11/12 Status: OrderedStart: 09-75-2395rijg 2.4 g by mouth twice daily as needed for constipationMilk of Magnesia 8% oral suspension 2.4 gram = 30 mL, Oral, BID, PRN PRN for constipation, Take with 8 ounces of water, # 360 mL, Refills(s) 0, 0, Print Requisition Start Date: 11/11/12 Status: Orderednaproxen 500 mg oral tablet (1 source)Nonsteroidal Anti-inflammatory DrugStart: 02-02-2025 End: 82-62-7869zzid 1 tablet by mouth twice dailynaproxen 500 mg Tab 500 mg = 1 tab(s), Oral, BID, X 10 day(s), # 20 tab(s), Refills(s) 0, Pharmacy:[facility]/pharmacy #[id number], 149, cm, 02/02/25 18:37:00 EDT, Height/Length Dosing, 65, kg, 02/02/25 18:37:00EDT, Weight Dosing Start Date: 02/02/25 Stop Date: 02/12/25 Status: Ordered Quantity: 20.0 Unit: tab(s) Repeat number: 124 hr nicotine 0.292 mg/hr transdermal system (1 source)Cholinergic Nicotinic AgonistStart: 05-75-7396pesok 7 mg transdermal route once dailynicotine 7 mg/24 hr Transderm ER Film 7 mg, 1 patch(es), TransDermal, Daily, 14 EA, Refill(s) 0, [facility]/pharmacy #[id number], 149, cm, 06/23/25 19:50:00 EDT, Height/Length Dosing, 62.2, kg, 06/23/25 19:50:00 EDT, Weight Dosing Start Date: 06/25/25 Status: Ordered Quantity: 14.0 Unit: EA Repeat number: 1omeprazole 40 mg delayed release oral capsule (20 sources)Proton Pump InhibitorStart: 96-78-5582ourg 1 capsule by mouth once dailyomeprazole 40 mg Cap-DR 40 mg = 1 cap(s), Oral, Daily, 30 minutes prior to food or any other medication., # 90 cap(s), Refills(s) 3, Pharmacy: [facility]/pharmacy #[id number], 150.7, cm, 02/27/25 10:37:00 EDT, Height/Length Dosing, 64.5, kg, 02/27/25 10:37:00 EDT, Weight Dosing Start Date: 02/27/25 Status: Ordered Quantity: 90.0 Unit: cap(s) Repeat number: 4Start: 21-00-0771nwtv 1 capsule by mouth once dailyPrilosec 40 mg Cap-EC = 1 cap(s), Oral, Daily, # 30 cap(s), Refills(s) 0 Start Date: 11/11/12 Status: Ordered Quantity: 30.0 Unit: cap(s) Repeat number: 1take 40 mg by mouth once dailyOMEPRAZOLE (PRILOSEC ORAL) Take 40 mg by mouth once daily. ActiveComment on above:Take 40 mg by mouth once daily. OXcarbazepine 600 mg oral tablet (10 sources)Anti-epileptic Agenttake 1 tablet by mouth twice dailyOXcarbazepine (TRILEPTAL) 600 mg tablet Take 600 mg by mouth twice daily. ActiveComment on above:Take 600 mg by mouth twice daily.pantoprazole 40 mg delayed release oral tablet (15 sources)Proton Pump InhibitorStart: 18-21-1207jphs 1 tablet by mouth once dailypantoprazole (ProtoNix) 40 MG EC tablet Indications: Gastro-esophageal reflux disease without esophagitis TAKE 1 TABLET BY MOUTH EVERY DAY 90 tablet 3 09/11/2023 ActiveStart: 73-59-8008yugx 2 tablets by mouth once dailyProtonix 20 mg Tab-DR 40 mg = 2 tab(s), Oral, Daily, Refills(s) 0 Start Date: 11/12/22 Status: Ordered Repeat number: 1Start: 22-38-2687cywu 1 tablet by mouth once dailyProtonix 20 mg Tab-DR 20 mg = 1 tab(s), Oral, Daily, Refills(s) 0 Start Date: 11/12/22 Status: Ordered Repeat number: 1Start: 03-59-6464evcd 1 tablet by mouth every twenty-four hoursPantoprazole Sodium 40 mg 1 tablet Orally Once a day for 30 days Aug, Activeplecanatide 3 mg oral tablet (10 sources)plecanatide (TRULANCE) 3 mg tab Take by mouth. ActiveComment on above:Take by mouth.predniSONE 50 mg oral tablet (1 source)Start: 01-01-2022 End: 85-92-3593unbh 1 tablet by mouth once dailypredniSONE 50 mg Tab 50 mg = 1 tab(s), Oral, Daily, X 7 day(s), # 5 tab(s), Refills(s) 0 Start Date: 01/01/22 Stop Date: 01/08/22 Status: OrderedPrilosec 40 mg Cap-EC (1 source)Start: 70-80-5223mwel 1 capsule by mouth once dailyPrilosec 40 mg Cap- EC = 1 cap(s), Oral, Daily, # 30 cap(s), Refills(s) 0 Start Date: 11/11/12 Status: OrderedProAir HFA 90 mcg/inh inhalation aerosol (9 sources)Start: 21-27-1748vlhy 2 puff(s) by inhalation four times dailyProAir HFA 90 mcg/inh inhalation aerosol 2 puff(s), Inhalation, QID Wheezing, Refill(s) 0 Start Date: 11/11/12 Status: Ordered Repeat number: 1Start: 36-55-3290stzg 2 puff(s) by inhalation four times dailyProAir HFA 90 mcg/inh inhalation aerosol 2 puff(s), Inhalation, QID Wheezing, Refill(s) 0 Start Date: 11/11/12 Status: OrderedStart: 42-17-3441vjvd 2 puff(s) by inhalation four times daily as needed for wheezingProAir HFA 90 mcg/inh inhalation aerosol 2 puff(s), Inhalation, QID PRN Wheezing, Refill(s) 0 StartDate: 11/11/12 Status: OrderedQUEtiapine 25 mg oral tablet (20 sources)Atypical AntipsychoticStart: 21-62-7612oxgl 1 tablet by mouth at bedtimeQUEtiapine (SEROquel) 25 MG tablet Take 25 mg by mouth at bedtime 11/27/2023 ActiveStart: 61-72-2905takb 50 mg by mouth at bedtimeSeroquel 50 mg, Oral, Bedtime, Refills(s) 0 Start Date: 11/12/22 Status: Ordered Repeat number: 1 Start: 94-56-1559zhwz 75 mg by mouth at bedtimeSeroquel 75 mg, Oral, Bedtime, Refills(s) 0 Start Date: 11/12/22 Status: Ordered Repeat number: 1Start: 33-46-3243wimc 75 mg by mouth at bedtimeSeroquel 75 mg, Oral, Bedtime, Refills(s) 0 Start Date: 11/12/22 Status: OrderedStart: 59-58-0698fwhz 1 tablet by mouth twice dailyQUEtiapine (SEROQUEL) 300 mg tablet Take 1 tablet by mouth twice daily at 6AM and 9PM. 04/19/2021 Activetake 1 tablet by mouth every twenty-four hoursSEROquel 100 MG 1 tablet at bedtime Orally Once a day Active Comment on above:Take 1 tablet by mouth twice daily at 6AM and 9PM.varenicline 1 mg oral tablet (10 sources)Partial Cholinergic Nicotinic Agonisttake 1 tablet by mouth twice dailyvarenicline (CHANTIX) 1 mg tablet Take 1 mg by mouth twice daily. Active Comment on above:Take 1 mg by mouth twice daily.Ventolin HFA 90 mcg/inh Aerosol-Adpt (13 sources)Start: 99-05-1515xwqg 2 puff(s) by inhalation four times daily for wheezingVentolin HFA 90 mcg/inh Aerosol-Adpt 2 puff(s), Inhalation, QID for wheezing, 18 gram, Refill(s) 5,[facility]/pharmacy #[id number], 150.7, cm, 02/27/25 10:37:00 EDT, Height/Length Dosing, 64.5, kg, 02/27/25 10:37:00 EDT, Weight Dosing Start Date: 02/27/25 Status: Ordered Quantity: 18.0 Unit: g Repeat number: 6Vitamin D3 1000 intl units (25 mcg) Tab (1 source)Start: 50-84-3813pvbs 1 tablet by mouth once dailyVitamin D3 1000 intl units (25 mcg) Tab 25 mcg = 1 tab(s), Oral, Daily, # 30 tab(s), Refills(s) 11, [id number] 149.8, cm, 06/27/25 9:26:00 EDT, Height/Length Dosing, 58.8, kg, 06/27/25 9:26:00 EDT, Weight Dosing Start Date: 06/30/25 Status: Ordered Quantity: 30.0 Unit: tab(s) Repeat number: 12 Indications: Vitamin D deficiency, unspecified; Completed/Discontinued Medications MedicationDrug Class(es)DatesSig (Normalized)Sig (Original)atenolol 25 mg oral tablet (2 sources)beta-Adrenergic BlockerStart: 57-73-6661rvdf 0.5 tablet by mouth twice dailyatenolol 25 mg Tab 25 mg = 1 tab(s), Oral, Daily, Split tab and take 0.5 tab BID, # 30 tab(s), Refills(s) 0, [id number], 150.7, cm, 06/10/25 16:56:00 EDT, Height/Length Dosing, 60, kg, 06/10/25 16:56:00 EDT, Weight Dosing Start Date: 06/10/25 Status: Ordered Quantity: 30.0 Unit: tab(s) Repeat number: 1potassium chloride 20 meq extended release oral tablet (3 sources)Start: 92-35-1403xnqv 1 tablet by mouth once dailypotassium chloride 20 mEq ER Tab 20 mEq = 1 tab(s), Oral, Daily, # 30 tab(s), Refills(s) 11, [id number], 149.8, cm, 06/27/25 9:26:00 EDT, Height/Length Dosing, 58.8, kg, 06/27/25 9:26:00 EDT, Weight Dosing Start Date: 06/27/25 Status: Ordered Quantity: 30.0 Unit: tab(s) Repeat number: 12 Indications: Hypokalemia;Start: 77-63-5012mgma 2 capsules by mouth once dailypotassium chloride 10 mEq Cap-ER 20 mEq = 2 cap(s), Oral, Daily, # 60 cap(s), Refills(s) 0, [id number], 149, cm, 06/23/25 19:50:00 EDT, Height/Length Dosing, 62.2, kg, 06/23/25 19:50:00 EDT, Weight Dosing Start Date: 06/25/25 Status: Ordered Quantity: 60.0 Unit: cap(s) Repeat number: 11 ml triamcinolone acetonide 40 mg/ml injection (1 source)CorticosteroidStart: 03-30-2023 End: 66-46-8850cgsfohmjppaso acetonide 40 mg injection (KeNALog 40)Start: 03-30-2023 End: 52-87-2764rkwlirmkqnwkn acetonide 40 mg injection (KeNALog 40) Problems Active Problems Problem ClassificationProblemDateDocumented DateEpisodic/ChronicAdjustment disorders (5 sources)Family tension; Translations: [Reaction to severe stress, unspecified]Onset: 911433-10-1233XfgaxviLmsvzoc disorders (20 sources)Posttraumatic stress disorder; Translations: [Mixed anxiety and depressive disorder]Onset: 967377-69-3066WhgfhjhQyimcf (20 sources)Asthma; Translations: [Unspecified asthma, uncomplicated]Onset: 402683-19-2714HkuixygKtfmaxsrb infection; unspecified site (20 sources)Staphylococcal infectious zfhuzep47-64-7760UtxoupniJxyujlx dysrhythmias (5 sources)Supraventricular tachycardia; Translations: [SVT (supraventricular tachycardia)]Onset: 251689-04-4218VpwgctzWifwqyn obstructive pulmonary disease and bronchiectasis (5 sources)Chronic obstructive lung disease; Translations: [Chronic obstructive pulmonary disease, unspecified]Onset: 174832-37-4881AjbrfslQqhveefca of lipid metabolism (3 sources)Gdlyncuqrasihu16-61-3843KkyoonePgtbnbpekmjtt (20 sources)Endometriosis (clinical)74-75-6149YyqhxgpGkpzbryitj disorders (20 sources)Gastroesophageal reflux disease; Translations: [Peptic stricture of esophagus]Onset: 151096-28-7382DxqedprFkxurtrns hypertension (20 sources)Hypertensive disorder; Translations: [Essential hypertension]Onset: 552802-25-0091UupxfvlLmpji and electrolyte disorders (4 sources)Hypokalemia; Translations: [Hypokalemia]Onset: 53-96-7940Rzabxdkc Fracture of upper limb (1 source)Closed fracture of shaft of humerus; Translations: [Unspecified fracture of shaft of humerus, left arm, initial encounter for closed fracture] Onset: 46-38-4654WqzujmmhJwubkuig; including migraine (12 sources)Chronic post-traumatic headache; Translations: [Chronic post- traumatic headache, not intractable]Onset: hronic Hypertension with complications and secondary hypertension (2 sources)Hypertensive heart disease without heart failure; Translations: [Hypertensive heart disease withoutheart failure]Onset: 05-16-3316Hucmngd Intestinal infection (6 sources)Clostridial enteric disease; Translations: [Enterocolitis due to Clostridium difficile, not specified as recurrent]Onset: 59-29-6878Ypdgdwcd Menopausal disorders (1 source)Primary ovarian failure; Translations: [Other primary ovarian failure] Onset: 76-03-9330LgqfptjVxeu disorders (20 sources)Bipolar I disorder; Translations: [Major depression, single episode] Onset: 308789-95-0682KjwqbphXjxizn and vomiting (2 sources)Nausea; Translations: [Nausea]EpisodicOsteoarthritis (15 sources)Localized, primary osteoarthritis of the shoulder region; Translations: [Primary osteoarthritis, right shoulder]Onset: 38-22-5618Jnefxhh Osteoporosis (2 sources)Osteoporosis; Translations: [Age-related osteoporosis without current pathological fracture]ChronicOther acquired deformities (20 sources)Scoliosis deformity of spine; Translations: [Scoliosis, unspecified] Onset: 374501-94-2890UonnmziMkowq acquired deformities (17 sources)Scoliosis of thoracic spine; Translations: [Other forms of scoliosis, thoracic region]Onset: 18-07-3513KsenxcoBrfcb bone disease and musculoskeletal deformities (5 sources)Aseptic necrosis of head of humerus; 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]Onset: 64-55-3779CubzrprEuwvh bone disease and musculoskeletal deformities (1 source)Idiopathic aseptic necrosis of right humerus; 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)]Onset: 42-44-4004NvwijfqXmpmn bone disease and musculoskeletal deformities (6 sources)Avascular necrosis of the head of humerus; 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]Onset: 733420-05-3920MygleonCrtcb bone disease and musculoskeletal deformities (5 sources)Idiopathic kyphoscoliosis; Translations: [Other idiopathic scoliosis, site unspecified]Onset: 725893-86-4614EdygrwlEiigg connective tissue disease (1 source)Pain in right lower limb; Translations: [Pain in right leg]Onset: 30-89-4644XbqhtktrLchez connective tissue disease (1 source)Partial thickness rotator cuff tear; Translations: [Incomplete rotator cuff tear or rupture of right shoulder, not specified as traumatic]Episodic Other connective tissue disease (1 source)Biceps tendinitis; Translations: [Bicipital tendinitis, right shoulder]EpisodicOther connective tissue disease (5 sources)Unspecified symptoms and signs involving the nervous system; Translations: [R29.90]Onset: 47-90-2356KrvnrssjGnmha disorders of stomach and duodenum (2 sources)Gastroparesis syndrome; Translations: [Gastroparesis]EpisodicOther fractures (1 source)Closed fracture of one rib; Translations: [Fracture of one rib, unspecified side, initial encounterfor closed fracture]Onset: 18-10-1337Ukcaxfie Other gastrointestinal disorders (2 sources)Irritable bowel syndrome characterized by constipation; Translations: [Irritable bowel syndrome with constipation]ChronicOther gastrointestinal disorders (2 sources)Irritable bowel syndrome with diarrhea; Translations: [Irritable bowel syndrome with diarrhea]ChronicOther gastrointestinal disorders (1 source)Irritable bowel syndrome with diarrheaOnset: 05-04-2022 Resolved: 32-26-6761XtybxsrNccxh gastrointestinal disorders (16 sources)Irritable bowel kwbaselr25-01-3263BxshikxIvbce gastrointestinal disorders (3 sources)Constipation; Translations: [Constipation, unspecified]12-21-2024 EpisodicOther gastrointestinal disorders (2 sources)Heartburn; Translations: [Heartburn]EpisodicOther gastrointestinal disorders (3 sources)Diarrhea; Translations: [Diarrhea, unspecified]Onset: 05-27-2025 EpisodicOther gastrointestinal disorders (2 sources)Esophageal dysphagia; Translations: [Dysphagia, pharyngoesophageal phase]EpisodicOther gastrointestinal disorders (1 source)Constipation, unspecified; Translations: [Constipation, unspecified] Onset: 19-42-8281WwjbxmtuEkhfh nervous system disorders (5 sources)Difficulty walking; Translations: [Difficulty in walking, not elsewhere classified]Onset: 710670-77-1251RxmkchaHtaed nervous system disorders (5 sources)Neuropathy; Translations: [Polyneuropathy, unspecified]Onset: 106440-12-9139SyxvvqpCgsmg nervous system disorders (1 source)Allodynia; Translations: [Other disturbances of skin sensation] EpisodicOther nutritional; endocrine; and metabolic disorders (2 sources)Loss of appetite; Translations: [Anorexia]EpisodicOther nutritional; endocrine; and metabolic disorders (14 sources)Overweight in adulthood with body mass index of 25 or more but less than 30; Translations: [Body mass index (BMI) 28.0-28.9, adult]Onset: 02-27-2025 EpisodicOther nutritional; endocrine; and metabolic disorders (7 sources)Overweight; Translations: [Overweight]Onset: 34-84-9582YsklkxnrVogte screening for suspected conditions (not mental disorders or infectious disease) (5 sources)Abnormal findings on diagnostic imaging of heart and coronary circulation; Translations: [Encounterfor screening mammogram for malignant neoplasm of breast]Onset: 34-14-5055YpfljzxeAopjnspxii and visceral atherosclerosis (6 sources)Peripheral vascular disease, unspecified; Translations: [Peripheral vascular disease, unspecified]Onset: 41-59-7132KsmudelOdggkrlt codes; unclassified (2 sources)Pain; Translations: [Pain, unspecified]EpisodicResidual codes; unclassified (1 source)Pain, unspecified; Translations: [Pain]Onset: 35-27-1590Tglutbcy Residual codes; unclassified (1 source)Sleep disorder; Translations: [Sleep disorder, unspecified]Onset: 73-78-7500TyukdvbcGdgjiqix codes; unclassified (2 sources)Tobacco wfng56-37-6249EhgzdwviUmyxnrvpa-vncjorm disorders (20 sources)Smoker; Translations: [Nicotine dependence]Onset: 04-19-2021 12-63-7249SvqecgwOjhbqmu on above:Added secondary to documentation in Social History.Superficial injury; contusion (2 sources)Contusion of left lesser toe; Translations: [Contusion of left lesser toe(s) without damage to nail, initial encounter]Onset: 05-99-3562Pmkmumvr Past or Other Problems Problem ClassificationProblemDateDocumented DateEpisodic/ChronicAbdominal hernia (12 sources)Incisional hernia; Translations: [Incisional hernia without obstruction or gangrene]Onset: 40-32-6336VggllbmxHcentrhtv pain (20 sources)Upper abdominal pain; Translations: [Upper abdominal pain, unspecified]Onset: 04-16-2021 Resolved: 30-73-2047DgfyeukpRteqiaea reactions (7 sources)Environmental allergy; Translations: [Other allergy status, other than to drugs and biological substances]Onset: 070375-01-1505Ibsjsmxt Cardiac dysrhythmias (14 sources)Tachycardia; Translations: [Tachycardia, unspecified]Onset: 387411-92-4336JqleryqiB Codes: Natural/environment (1 source)Exposure to other specified factors, initial encounter; Translations: [EXPOSURE OTHER SPEC FACTORS INITIAL]Onset: 41-49-1986OvkgqospXjnelqli of lower limb (8 sources)Closed trimalleolar fracture; Translations: [Displaced trimalleolar fracture of left lower leg, initial encounter for closed fracture]Onset: 47-23-1542BubzzkbaHnbyccrrakbok and screening for infectious disease (1 source)Encounter for immunization; Translations: [ENCOUNTER FOR IMMUNIZATION] Onset: 62-19-0832SuzjoottFipn wounds of extremities (4 sources)Laceration without foreign body of right thumb without damage to nail, initial encounter; Translations: [LAC NO FB RT THUMB NO DMG NAIL INIT] Onset: 54-37-7928PjyjqgvaGbscv aftercare (1 source)Other fdc (current) drug therapy; Translations: [OTH MEDICAL PHOTOGRAPHER CURRENT DRUG THERAPY]Onset: 82-63-5534GluesxmhEpbhw aftercare (4 sources)Encounter for change or removal of surgical wound dressing; Translations: [ENC CHG/REMOVAL SURG WOUND DRSG]Onset: 06-86-7754JqoyuvwnMwvwt connective tissue disease (4 sources)Pain in leg, unspecified; Translations: [PAIN IN LEG UNSPECIFIED] Onset: 46-17-4854MltrgzbmZzhki connective tissue disease (5 sources)H/O: arthrodesis; Translations: [Arthrodesis status]Onset: 03-12-2004 93-34-1031XqmgzryyAxmsw gastrointestinal disorders (7 sources)Dysphagia; Translations: [Dysphagia, unspecified]Onset: 02-13-2023 00-65-7953GspwmfivTlgyy gastrointestinal disorders (2 sources)Diarrhea, unspecified; Translations: [DIARRHEA UNSPECIFIED]Onset: 05-04-2022 Resolved: 57-69-6927LowxkgjbHdwmp gastrointestinal disorders (2 sources)Abdominal distension (gaseous); Translations: [ABDOMINAL DISTENSION GASEOUS]Onset: 05-04-2022 Resolved: 98-75-8252BjkxarmsJtevh nervous system disorders (5 sources)Paresthesia; Translations: [Paresthesia of skin]Onset: 02-13-2023 70-44-5429IckysnkaJbfbf non-traumatic joint disorders (5 sources)Hip pain; Translations: [Pain in unspecified hip]Onset: 02-13-2023 22-72-0548GekxkxpbTrpcztqr codes; unclassified (7 sources)Uterus absent; Translations: [Acquired absence of both cervix and uterus]Onset: 034932-88-7838ZbrsjomzLvvucrvm codes; unclassified (10 sources)Postoperative state; Translations: [Other specified postprocedural states]Onset: 420642-70-0185CiixmpnqFaxagggb codes; unclassified (5 sources)Acquired absence of cervix and uterus; Translations: [Acquired absence of both cervix and uterus]Onset: 833109-98-6199WkcvungzHwjtzxga codes; unclassified (5 sources)Inadequate sleep hygiene; Translations: [Inadequate sleep hygiene] Onset: 637221-81-6435WgwvpdcfVjiu and subcutaneous tissue infections (10 sources)Cellulitis; Translations: [Cellulitis, unspecified]Onset: 11-13-2015 67-62-7838BgxgnfrgZsppnpbklgm; intervertebral disc disorders; other back problems (7 sources)Sciatica; Translations: [Sciatica, unspecified side]Onset: 03-12-2004 04-96-4936VruqitgcVrbsdzp and strains (2 sources)Sprain of foot; Translations: [Unspecified sprain of unspecified foot, initial encounter]Onset: 12-17-0385Kunzprvo Results Test NameValueInterpretationReference RangeFacilityPulmonology Office/Clinic Noteon 22-75-6211Egvfhnpuesb Office/Clinic NotePulmonology Office/Clinic Note Chief Complaint New Patient eval for 02 History of Present Illness This is a 49-year-old female with past medical history significant for scoliosis status post spine surgery as a child, childhood asthma, nicotine dependence, hypertension. 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 She does also report dyspnea with exertion sometimes and with bending over. She was referred for a sleep study and showed moderate obstructive sleep apnea with oxygen desaturation. She had chest x-ray done with spinal rods for scoliosis otherwise no infiltrates mild flattening of the diaphragm. She does use albuterol inhaler about once a day and sometimes it helps her symptoms. She has been smoking for over 35 years she was 1 pack a day and now half a pack a day Review of Systems PHQ Score Initial Depression Screen Score: 0 SCORE 12 point system review was done and negative except what mentioned in HPI Physical Exam Vitals & Measurements HR: 97(Peripheral) BP: 122/80 SpO2: 96% HT: 59 in HT: 149 cm WT: 145.725 lb WT: 66.1 kg BMI: 29.77 General: no distress Skin: warm, dry Head: no trauma, normocephalic Neck: Trachea midline , no adenopathy, no tenderness Eye: normal conjunctiva, sclera clear ENMT: oral mucosa moist Cardiovascular: regular rate and rhythm, normal Respiratory: Lungs CTA ,respirations non labored Chest wall: no deformity. Gastrointestinal: soft , non distended , no tenderness, no guarding. Extremities: no deformity, no trauma Neurological: nonfocal Assessment/Plan 1. COPD mixed type (J44.9: Chronic obstructive pulmonary disease, unspecified) 2. Scoliosis (M41.9: Scoliosis, unspecified) 3. Obstructive sleep apnea (G47.33: Obstructive sleep apnea (adult) (pediatric)) 4. Nicotine dependence, cigarettes, uncomplicated (F17.210: Nicotine dependence, cigarettes, uncomplicated) Ordered: CT Chest, Low Dose Screening I will obtain pulmonary function test to evaluate her lung mechanics she has longstanding history of smoking in addition to childhood asthma and I would suspect that she will have some degree of obstructive lung disease and COPD. She also had previous spinal surgery for severe scoliosis and a component of restriction is also possible. After PFTs will evaluate for further bronchodilator therapy She is in the process of scheduling titration study for CPAP With her history of smoking and starting age 49 she qualifies for low-dose screening CT chest Follow-up No qualifying data available 6 wks Problem List/Past Medical History Ongoing Anxiety Asthma Dextroscoliosis of thoracic spine Generalized anxiety disorder with panic attacks GERD (gastroesophageal reflux disease) Hyperlipidemia Hypertension Hypertension Low blood potassium Osteoarthritis of right shoulder Over weight Panic disorder [episodic paroxysmal anxiety] Smoker Historical Endometriosis IBS - Irritable bowel syndrome Procedure/Surgical History Appendectomy, x2, Colonoscopy, Hysterectomy, Repair of recurrent inguinal hernia, spine surgery for scoliosis. Medications albuterol 0.083% Inh Teresita 3 mL, 0.083% - 3mL dosing units, Inhalation, q4hr, PRN, 3 refills alendronate 70 mg Tab, 70 mg= 1 tab(s), Oral, q7day aspirin 81 mg Oral EC Tab, 81 mg= 1 tab(s), Oral, Daily atorvastatin 80 mg Tab, 80 mg= 1 tab(s), Oral, Bedtime lidocaine 5% patch, 2 patch(es), Topical, Daily metoprolol succinate 25 mg ER Tab, 25 mg= 1 tab(s), Oral, Daily, 1 refills omeprazole 40 mg Cap-DR, 40 mg= 1 cap(s), Oral, Daily, 3 refills potassium chloride 20 mEq ER Tab, 20 mEq= 1 tab(s), Oral, Daily, 11 refills Seroquel, 50 mg, Oral, Bedtime Toprol XL 100 mg Tab-ER, 100 mg= 1 tab(s), Oral, Daily, 4 refills Ventolin HFA 90 mcg/inh Aerosol-Adpt, 2 puff(s), Inhalation, QID, PRN, 5 refills Vitamin D3 1000 intl units (25 mcg) Tab, 25 mcg= 1 tab(s), Oral, Daily, 11 refills Xanax 1 mg Tab, 1 mg= 1 tab(s), Oral, TID, PRN, 1 refills Allergies hydroCHLOROthiazide (Hyponatremia) LaMICtal (Unknown) Tape (rash) bacitracin clindamycin (Unknown) vancomycin Social History Alcohol - Denies Alcohol Use, 01/01/2022 Past. Wine, Liquor. 1-2 times per month., 07/11/2025 Current, Wine, 3-5 times per week, Previous treatment: None. Household alcohol concerns: No., 05/23/2025 Substance Abuse - High Risk, 01/01/2022 Past. Marijuana, Alcohol . Daily. Previous treatment: Treatment center, Outpatient., 07/11/2025 Current, Marijuana, Daily, Previous treatment: None. Household substance abuse concerns: No., 05/23/2025 Tobacco - High Risk, 01/01/2022 10 or more cigarettes (1/2 pack or more)/day in last 30 days Tobacco Use:. Never Smokeless Tobacco Use:. Cigarettes, 10 per day. 37 year(s). Total pack years: 19. Started age 11.0 Years. Previous treatment: None. Ready to change: No. Household (more content not included)...[facility] CenterComment on above:Result Comment: Electronically Signed By: Vesna Mckay MD\.br\Date and Time Signed: 07/31/25 10:23 oroecoSpotbros [phone] Case Information Case Priority: None Programs: -- Referral Source: Catering Director Referral Reason: Care coordination Case Type: Transition Care Management Risk Score: -- Case Status: Enrolled (June 27, 2025) Date Assigned: June 26, 2025 Assigned By: Jacinda Tomlinson RN Date Enrolled: June 27, 2025 Assigned Primary Personnel: Jacinda Tomlinson RN Assigned Secondary Personnel: -- Case Physician: German Sheehan DO Problems Ongoing Anxiety Asthma Dextroscoliosis of thoracic spine Generalized anxiety disorder with panic attacks GERD (gastroesophageal reflux disease) Hyperlipidemia Hypertension Hypertension Low blood potassium Osteoarthritis of right shoulder Over weight Panic disorder [episodic paroxysmal anxiety] Smoker Historical Endometriosis IBS - Irritable bowel syndrome Procedure/Surgical History Appendectomy, x2, Colonoscopy, Hysterectomy, Repair of recurrent inguinal hernia, spine surgery for scoliosis. Home Medications albuterol 0.083% Inh Teresita 3 mL, 0.083% - 3mL dosing units, Inhalation, q4hr, PRN, 3 refills, Not taking: Not taking alendronate 70 mg Tab, 70 mg= 1 tab(s), Oral, q7day aspirin 81 mg Oral EC Tab, 81 mg= 1 tab(s), Oral, Daily atorvastatin 80 mg Tab, 80 mg= 1 tab(s), Oral, Bedtime, Not taking: Per pt, not comfortable taking it lidocaine 5% patch, 2 patch(es), Topical, Daily metoprolol succinate 25 mg ER Tab, 25 mg= 1 tab(s), Oral, Daily, 1 refills omeprazole 40 mg Cap-DR, 40 mg= 1 cap(s), Oral, Daily, 3 refills potassium chloride 20 mEq ER Tab, 20 mEq= 1 tab(s), Oral, Daily, 11 refills Seroquel, 50 mg, Oral, Bedtime Toprol XL 100 mg Tab-ER, 100 mg= 1 tab(s), Oral, Daily, 4 refills Ventolin HFA 90 mcg/inh Aerosol-Adpt, 2 puff(s), Inhalation, QID, PRN, 5 refills Vitamin D3 1000 intl units (25 mcg) Tab, 25 mcg= 1 tab(s), Oral, Daily, 11 refills Xanax 1 mg Tab, 1 mg= 1 tab(s), Oral, TID, PRN, 1 refills Allergies hydroCHLOROthiazide (Hyponatremia) LaMICtal (Unknown) Tape (rash) bacitracin clindamycin (Unknown) vancomycin Social History Alcohol - Denies Alcohol Use, 01/01/2022 Past. Wine, Liquor. 1-2 times per month., 07/11/2025 Current, Wine, 3-5 times per week, Previous treatment: None. Household alcohol concerns: No., 05/23/2025 Substance Abuse - High Risk, 01/01/2022 Past. Marijuana, Alcohol . Daily. Previous treatment: Treatment center, Outpatient., 07/11/2025 Current, Marijuana, Daily, Previous treatment: None. Household substance abuse concerns: No., 05/23/2025 Tobacco - High Risk, 01/01/2022 10 or more cigarettes (1/2 pack or more)/day in last 30 days Tobacco Use:. Never Smokeless Tobacco Use:. Cigarettes, 10 per day. 37 year(s). Total pack years: 19. Started age 11.0 Years. Previous treatment: None. Ready to change: No. Household tobacco concerns: No. Yes, 06/27/2025 Screenings and Assessments 06/27/25 08:16:00 Result Name Value Comment Phone Call Monitoring Consent Agreed to continue call Phone Verification Patient Information Full name, street address and date of verified CM Program Enrollment Provides verbal consent for enrollment Goals and Interventions Care Plan Progress Note Called patient to see how she is progressing. Patient reports that she is doing alright/better thanbefore. She reports that her blood pressure today was 145/95 heart rate 95 with metoprolol 50mg. Over the weekend she did take 75mg of metoprolol and her blood pressure was 121/82 hr 97, 101/71 hr 102, 122/82 hr 99 and 94/63 (this blood pressure was taken at night before she went to bed) hr 101. She said she has gain 7 lbs; her current weight is 140 lbs previously it was 133lbs. She reports that she thinks her left hip has dropped 1/2 ; she said this was caused by the way she stands (with all her wt on her left leg). She has had an increase in shortness of breath lately. She does have some bilateral leg swelling. Patient has no needs or concerns. She did call [employer] since she has not heard anything about her sleep study and was told they did not receive it and she asked the number to fax it to and was told [phone]. I did refax the information to number given. Communication Events Date: July 16, 2025 Method: Phone call Type: Outbound Duration (min): 120 Outcome: Case discussion Contact Type: Patient Contact Name: NATHANIEL MARCIAL Notes: tcm called patient for weekly follow up call - see case summary note Created By: Jacinda Tomlinson RN Date: June 26, 2025 Method: Phone call Type: Outbound Duration (min): 92 Outcome: Case discussion Contact Type: Patient Contact Name: NATHANIEL MARCIAL Notes: tcm #1 called patient for initial tcm program call - see case summary note Created By: Jacinda Tomlinson [facility]NMari[facility] Office/Clinic Noteon [phone]inic Note Chief Complaint 1 month follow up/Hospital follow up HPI Staff Patient presents for 1 month f/u Patient is here for follow up on hypertension. -Patient was switched to Atenolol 25 mg. -Patient is scheduled with [facility] on 07/31/25. How often are you checking your blood pressure? Doesnt check BP at home Do you have any of the following symptoms? Chest Pain? no Palpitations? no DIAZ/SOB? no Headache? no Peripheral Edema? no Light Headedness? no ER/Hospital followup: Hospital: [facility] Visit date: 06/20-06/21, then 06/23-06/24 Symptoms the patient presented with: Stroke like symptoms. States they took her off the HCTZ. Julienne: 07/02/25 Dexa: 07/02/25 Pap: Hx of hysterectomy Gray: Per patient 2022, [facility] [place] AMW: UTD History of Present Illness Patient presents today for 4 week followup. - High anxiety - follows with Dr. Bah, but not seeing any longer - NICOLETTE on recent sleep study - Hypertension - on Coreg previously, now on metoprolol - Hospital followup with Eugenia Shepard PROOFER - increased Xanax to 1mg TID Today, patient states that she is doing better. She states that she has several major concerns today. Patient is highly concerned about her blood pressure. She states that it is low at home, states sheis taking the atenolol as recommended. She states that she is having no side effects today. However, she states that the low blood pressure is making her fatigued. Her edema has returned, and she wants to know if there is a medication that will not affect her potassium. Her potassium was low, and so she would like to know that this will not be depleted now that it is back to normal. She is also concerned that her heart rate is high. She would like to discuss if an increase to her metoprolol would trigger any new findings or low blood pressure for her today. Patient remains very highly anxious today. She gets weepy at intervals and clearly expresses anxieties about different situations related to her healthcare. Review of Systems PHQ Score Initial Depression Screen Score: 4 SCORE Detailed Depression Screen Score: 13 Total Depression Screen Score: 17 ROS - Provider Constitutional: no fever, no [...] swings/depression. Physical Exam Vitals & Measurements HR: 105(Peripheral) RR: 18 BP: 130/84 SpO2: 98% HT: 59 in HT: 149.8 cm WT: 62.6 kg WT: 138.009 lb BMI: 27.9 General: Well developed, well nourished, in no [...] with panic attacks (F41.1: Generalized anxiety disorder) I did not get a chance today to discuss her anxiety today, though this seems to remain poorly controlled. Will need to discuss with her at followup today. 2. Panic disorder [episodic paroxysmal anxiety] (F41.0: Panic disorder [episodic paroxysmal anxiety]) As per #1. 3. Hypertension (I10: Essential (primary) hypertension) Discussed this quite extensively today. We will change her metoprolol over to 75mg XR by adding a 25mg XR dose to her today. We discussed adding spironolactone, I'm concerned with adding multiple cardiac medications at once. Have her call in Monday, and if BP is stable, can add on low dose Aldactone. Patient agrees with this plan. 4. Over weight (E66.3: Overweight) The standard range for ages 18 and older is >=18.5 and < 25 kg/m2. Your BMI today was above this range, this falls in the overweight to obese category and there are medical benefits to weight loss. We can offer counselling, referral, and/or medical support in addressing this problem. Your BMIand weight management will be followed at subsequent visits. 5. Smoker (F17.200: Nicotine dependence, unspecified, uncomplicated) We strongly recommend to quit tobacco use. Cigarette smoking harms nearly every organ of the body, causes many diseases, and reduces the health (more content not included)...[facility] Medical CenterComment on above:Result Comment: Electronically Signed By: German Sheehan DO\.br\Date and Time Signed: 07/13/25 07:02 EDTAmbulatory Visit Summaryon [id number] Visit Summary Ambulatory Visit Summary NATHANIEL MARCIAL :1975 Visit Date:07/11/2025 Ambulatory Visit Instructions Your Diagnosis Generalized anxiety disorder with panic attacks Panic disorder [episodic paroxysmal anxiety] Hypertension Over weight Smoker Your Care Team Attending Physician - German Sheehan DO Primary Care Physician - German Sheehan DO This Is Your Medications List albuterol (Ventolin HFA 90 mcg/inh Aerosol-Adpt) albuterol (albuterol 0.083% Inh Teresita 3 mL) alendronate (alendronate 70 mg Tab) alprazolam (Xanax 1 mg Tab) aspirin (aspirin 81 mg Oral EC Tab) atorvastatin (atorvastatin 80 mg Tab) cholecalciferol (Vitamin D3 1000 intl units (25 mcg) Tab) lidocaine topical (lidocaine 5% patch) metoprolol (Toprol XL 100 mg Tab-ER) metoprolol (metoprolol succinate 25 mg ER Tab) omeprazole (omeprazole 40 mg Cap-DR) potassium chloride (potassium chloride 20 mEq ER Tab) quetiapine (Seroquel) Procedures Performed Appendectomy, x2, Colonoscopy, Hysterectomy, Repair of recurrent inguinal hernia, spine surgery for scoliosis. Discharge Vitals Heart Rate (Peripheral) 105 Respiratory Rate 18 Blood Pressure 130/84 Height 149.8 cm Height 59 in Weight 62.6 kg Weight 138.009 lb BMI 27.9 What to do next Scheduled Follow-Up Appointments 2024 9:30 AM EST With: Woody DESHPANDE, Vesna Grace Where: Pulmonary Clinic Monday 1:00 PM EST With: German Sheehan DO Where: [facility] [address] [place] [address]- Monday2025 9:30 AM EDT With: Where: [facility] [address] [place] [address]- Medications What How Much When Why Instructions Changed metoprolol (metoprolol succinate 25 mg ER Tab) 1 Tablets By Mouth Every day Take with 50mg XR metoprolol for total of 75mg XR daily Pickup at [facility]/pharmacy #[id number] Changed metoprolol (Toprol XL 100 mg Tab-ER) 1 Tablets By Mouth Every day HTN (hypertension) Unchanged albuterol (albuterol 0.083% Inh Teresita 3 mL) 0.083% - 3mL dosing units Inhalation Every 4 hours as needed for Wheezing dx. J45.909 Unchanged albuterol (Ventolin HFA 90 mcg/ inh Aerosol-Adpt) 2 Puffs Inhalation 4 times a day as needed for for wheezing Unchanged alendronate (alendronate 70 mg Tab) 1 Tablets By Mouth Every 7 days Unchanged alprazolam (Xanax 1 mg Tab) 1 Tablets By Mouth 3 times a day as needed for for anxiety Anxiety Unchanged aspirin (aspirin 81 mg Oral EC Tab) 1 Tablets By Mouth Every day Unchanged atorvastatin (atorvastatin 80 mg Tab) 1 Tablets By Mouth At bedtime Unchanged cholecalciferol (Vitamin D3 1000 intl units (25 mcg) Tab) 1 Tablets By Mouth Every day Vitamin D deficiency Unchanged lidocaine topical (lidocaine 5% patch) 2 Patches Topical Every day Unchanged omeprazole (omeprazole 40 mg Cap-DR) 1 Capsules By Mouth Every day 30 minutes prior to food or any other medication. Unchanged potassium chloride (potassium chloride 20 mEq ER Tab) 1 Tablets By Mouth Every day Low blood potassium Unchanged quetiapine (Seroquel) 50 Milligram By Mouth At bedtime Pharmacy Information [facility]/pharmacy #[id number]: [address] [place], [place] [id number] [phone] Allergies hydroCHLOROthiazide (Hyponatremia) LaMICtal (Unknown) Tape (rash) bacitracin clindamycin (Unknown) vancomycin Problems Ongoing - Any problem that you are currently receiving treatment for. Anxiety Asthma Dextroscoliosis of thoracic spine Generalized anxiety disorder with panic attacks GERD (gastroesophageal reflux disease) Hyperlipidemia Hypertension Hypertension Low blood potassium Osteoarthritis of right shoulder Over weight Panic disorder [episodic paroxysmal anxiety] Smoker Historical [...] signed up for this yet, please contact [employer] at [phone] to get signed up today. Language Information Language assistance services are available as needed. [facility] CenterBD Bone Density DEXAon [id number] Bone Density DEXAExam Date/Time: 07/02/2025 14:58 EDT Reason for Exam: E28.39;Post menopausal Report IMPRESSION: OSTEOPOROSIS. The NOF/ISD guideline recommend FRAX for postmenopausal patients (not on treatment) if the lowest T-score for Spine(L1-L4), Femur Neck or Femur Total indicates low bone density (T score -1.0 to -2.5, osteopenia). EXAM: BD Bone Density DEXA DATE: 07/02/2025 2:36 PM CLINICAL HISTORY: Post menopausal, E28.39. COMPARISON: 02/06/2023. COMMENTS: The distal right forearm and both hips were scanned. Bone mineral density of the left femoral neck is 0.485 g/cm2 and this value is -4.0 standard of deviation below the standard reference value. Bone mineral density of the right femoral neck is 0.561 g/cm2 and this value is -3.4 standard of deviation below the standard reference value. Bone mineral density right radius 33% is 0.647 g/cm2 and this value is -2.7 standard of deviation below the standard reference value. These values meet WHO criteria for osteoporosis. When compared to the prior exam, there has been a significant -20.1% decrease in bone mineral density of the left femoral neck, a significant -17.7% decrease in bone mineral density of the right femoral neck, and a significant -10.5% decrease in bone mineral density of the distal right radius 33%. RECOMMENDATIONS: 1. All patients should optimize her calcium and vitamin D intake. 2. Consider FDA-approved medical therapies in postmenopausal women and minimal age 50 years and older, based on the following: - hip or vertebral (clinical or morphometric) fracture. - T-score less than or equal to -2.5 at the femoral neck or spine after the appropriate evaluation to exclude secondary causes. - Low bone density (T score between -1.0 and -2.5 at the femoral neck or spine) and a 10 year probability of hip fracture greater than or equal to 3% or a 10-year probability of a major osteoporosis-related fracture greater than or equal to 20% based on FRAX calculation. Report - Clinician judgment and/or patient preferences may indicate treatment for palpable attenuation fracture probability is above or below these levels. - Further guidance on treatment can be found at the National Osteoporosis Foundation's website: bonesource.org 3. Patients with diagnosis of osteoporosis or high risk for fracture. There are irregular bone mineral density tests. For patients eligible for Medicare, routine testing is allowed once every 2 years. Testing frequency can be increased to 1 year for patient's history of rapidly progressing disease, those who are receiving or discontinuing medical therapy to restore bone mass or have additional risk factors. Ordering Provider: German Sheehan FINAL REPORT Dictated: 07/03/2025 3:43 pm Kevin Ayers MD Signed (Electronic Signature): 07/03/2025 3:43 pm Signed by: Kevin Ayers MD Transcribed by: CARISA Technologist: [facility] Mamm Screen w/CAD if perf and 3D Bilon [id number] Mamm Screen w/CAD if perf and 3D BilExam Date/Time: 07/02/2025 14:38 EDT Reason for Exam: Z12.31;Screening Report IMPRESSION: BIRADS 2 BENIGN FINDINGS, NORMAL INTERVAL FOLLOW-UP Follow-up: 12 MONTH RECALL Breast Density: Scattered areas of fibroglandular density. Vascular calcifications: Absent. EXAM: MA Mamm Screen w/CAD if perf and 3D Robert DATE: 07/02/2025 2:19 PM CLINICAL HISTORY: Screening, Z12.31. COMPARISONS: 04/20/2022, 06/25/2019, and 01/09/2015. TECHNIQUE: Routine full-field digital mammograms and 3D breast tomosynthesis were obtained of both breasts. FINDINGS: No significant changes are identified from the prior studies, given differences in technique and positioning. Stable asymmetries. Dense Breast: No. CAD analysis was performed and used in the interpretation. Board Certified Radiologists. Accredited by the ACR and FDA. MAMMOGRAPHY IS VERY IMPORTANT TO YOUR HEALTH. THE CURRENT [employer] [employer] OF [employer] AND [employer] GUIDELINES RECOMMENDS ANNUAL MAMMOGRAPHY BEGINNING AT AGE 40. THIS FACILITY UTILIZES A REMINDER SYSTEM TO ENSURE ALL PATIENTS RECEIVE REMINDER NOTIFICATIONS AT THE APPROPRIATE TIME BASED ON THE RECOMMENDATIONS OF THIS EXAM. Report Ordering Provider: German Sheehan FINAL REPORT Dictated: 07/03/2025 5:11 am Kevin Ayers MD Signed (Electronic Signature): 07/03/2025 5:11 am Signed by: Kevin Ayers MD Transcribed by: CARISA Technologist: YAO Assessment: BI-RADS Category 2-Benign finding Recommendation: Normal interval follow-upNormalMccullough-Hyde Memorial HospitalPath. Reviewon [id number] ReviewNo increase of reticulocytes or schistocytes. Occasional hypersegmented granulocytes noted. Clinical correlation and folate/B12 level may be considered as clinically indicated.Invalid Interpretation [facility] HospitalComment on above:Performed By: #### [id number] #### [facility] [address] [place], [place] [address]Aqqk. ReviewPath Review No increase of reticulocytes or schistocytes. Occasional hypersegmented granulocytes noted. Clinical correlation and folate/B12 level may be considered as clinically indicated. D64.9 CPT 24702Ebfyxaa Interpretation [facility]aritan HospitalAmmoniaon [id number] bzbsyXqrz69-81HqpojeMccullough-Hyde Memorial HospitalComment on above: Performed By: #### [id number] #### [facility] [address] [place], [place] [address]HFU w/ Auto Diffon [id number] Abs Man0.1 E9/LNormal 0.0-0.2[facility] HospitalComment on above:Performed By: #### [id number] #### [facility] [address] [place], [place] [address]Zgroudzdi/100 WBC (Bld)1.0 %Normal0.0-2.0[facility] HospitalComment on above:Performed By: #### [id number] #### [facility] [address] [place], [place] [address]Jda Abs Man0.1 E9/LNormal0.0-0.5FSelect [facility] Specialty [facility], Inc Comment on above:Performed By: #### [id number] #### [facility] [address] [place], [place] [address]Vtvkigbornc/100 WBC (Bld)1.0 %Normal0.0-8.0[facility] HospitalComment on above:Performed By: #### [id number] #### [facility] [address] [place] [address]Obokcecatio distribution width (RBC) [Ratio]14.3 %High10.9-14.2 [facility] HospitalComment on above:Performed By: #### [id number] #### [facility] [address] [place] [address]Olrjrseywe (Bld) [Volume fraction]42.5 %Yswwvu27.0-46.0[facility] Memorial HospitalComment on above:Performed By: #### [id number] #### [facility] [address] [place] [address]Jbyoe Abs Man3.5 E9/LNormal1.0-4.0[facility] Comment on above:Performed By: #### [id number] #### [facility] [address] [place], [place] [address]Aymuemhrwkl/100 WBC (Bld)22.0 %Bvbxlm63.0-50.0[facility] HospitalComment on above:Performed By: #### [id number] #### [facility] [address] [place], [place] [address]YAI (RBC) [Entitic mass]36.0 vdRuha41.0-34.0[facility] HospitalComment on above:Performed By: #### [id number] #### [facility] [address] [place], [place] [address]LLRN (RBC) [Mass/Vol]34.6 g/oKKfcmsy28.4-36.0[facility] HospitalComment on above:Performed By: #### [id number] #### [facility] [address] [place], [place] [address]DUO (RBC) [Entitic vol]104.2 xTLrvf35.0-100.0[facility] HospitalComment on above:Performed By: #### [id number] #### [facility] [address] [place], [place] [address]Otgq Abs Man0.2 E9/LNormal0.2-1.0[facility] Comment on above:Performed By: #### [id number] #### [facility] [address] [place] [address]Jzkdakkop/100 WBC (Bld)3.0 %Low4.0-14.0[facility] HospitalComment on above:Performed By: #### [id number] #### [facility] [address] [place], [place] [address]Zpyeia Abs Man3.6 E9/LInvalid Interpretation [facility] HospitalComment on above:Performed By: #### [id number] #### [facility] [address] [place], [place] [address]Nzhgzodj mean volume (Bld) [Entitic vol]7.0 fLNormal6.4-10.8 [facility] HospitalComment on above:Performed By: #### [id number] #### [facility] [address] [place], [place] [address]OZE7.1 E12/LLow4.3-5.9[facility] HospitalComment on above:Performed By: #### [id number] #### [facility] [address] [place], [place] [address]GJR morphology finding Nom (Bld)NORMALInvalid Interpretation [facility] HospitalComment on above:Performed By: #### [id number] #### [facility] [address] [place], [place] [address]Puyhx Lymph Man25.0 %High0.0-0.0[facility] Comment on above:Performed By: #### [id number] #### [facility] [address] [place], [place] [address]Zqos Man48.0 %Qhvjzk08.0-75.0[facility] HospitalComment on above:Performed By: #### [id number] #### [facility] [address] [place], [place] [address]HBU5.5 E9/LNormal4.0-11.0[facility] HospitalComment on above:Performed By: #### [id number] #### [facility] [address] [place], [place] [address]Pqqvoahevd (Bld) [Mass/Vol]14.7 g/nRExqfff61.0-16.0[facility] HospitalComment on above:Performed By: #### [id number] #### [facility] [address] [place], [place] [address]Puafxpzc224.0 E9/ASqvgjr803.0-500.0[facility] Comment on above:Performed By: #### [id number] #### [facility] [address] [place], [place] [address]HVYev 22-26-0921Bbfxkiu [Mass/Vol]4.4 g/dLNormal3.3-5.0[facility] HospitalComment on above:Performed By: #### [id number] #### [facility] [address] [place], [place] [address]Hdufodi/Globulin [Mass ratio]1.4 {ratio}Normal1.1-2.2FSelect Medical Specialty Hospital - Boardman, IncComment on above:Performed By: #### [id number] #### [facility] [address] [place], [place] [address]Pde Phos96 Int._Unit/GDklfdd41-00HrgabqMccullough-Hyde Memorial Hospital Comment on above:Performed By: #### [id number] #### [facility] [address] [place], [place] [address]LZR38 Int._Unit/LNormal6-46[facility] HospitalComment on above:Performed By: #### [id number] #### [facility] [address] [place], [place] [address]Kgjjb gap [Moles/Vol]11 mmol/LNormal6-16[facility] HospitalComment on above:Performed By: #### [id number] #### [facility] [address] [place], [place] [address]SOA99 Int._Unit/LNormal5-43[facility] HospitalComment on above:Performed By: #### [id number] #### [facility] [address] [place], [place] [address]Evor Total0.5 mg/dLNormal0.0-1.1FSelect [facility] Specialty [facility], [facility] Comment on above:Performed By: #### [id number] #### [facility] [address] [place], [place] [address]ZZZ/Creat Ratio11 No UfgmqIqqexx95-73HoteseMccullough-Hyde Memorial HospitalComment on above:Performed By: #### [id number] #### [facility] [address] [place], [place] [address]Kkxshjb [Mass/Vol]9.7 mg/dLNormal8.9-11.1FSelect Medical Specialty Hospital [facility], IncComment on above:Performed By: #### [id number] #### [facility] [address] [place], [place] [address]Gbxjnyke [Moles/Vol]108 mmol/SOjswto203-291SqwtdsMccullough-Hyde Memorial HospitalComment on above:Performed By: #### [id number] #### [facility] [address] [place], [place] [address]TE4 [Moles/Vol]25 mmol/MCpolby34-05PmvffpMccullough-[facility]de Memorial Hospital Comment on above:Performed By: #### [id number] #### [facility] [address] [place], [place] [address]Wevhuysssa [Mass/Vol]0.7 mg/dLNormal0.5-1.3FSelect Medical Specialty Hospital [facility], IncComment on above:Performed By: #### [id number] #### [facility] [address] [place], [place] [address]Tyszqlvj (S) [Mass/Vol]3.1 g/dLNormal1.4-4.0[facility] HospitalComment on above:Performed By: #### [id number] #### [facility] [address] [place], [place] [address]Tzfdafj [Mass/Vol]95 mg/tDFckzte53-194HpshkeMccullough-Hyde Memorial HospitalComment on above:Performed By: #### [id number] #### [facility] [address] [place], [place] [address]Oinpwpsgd [Moles/Vol]4.4 mmol/LNormal3.5-5.3FSelect Medical Specialty Hospital [facility], IncComment on above:Performed By: #### [id number] #### [facility] [address] [place], [place] [address]Yxzirfx [Mass/Vol]7.5 g/dLNormal6.0-7.8[facility] HospitalComment on above:Performed By: #### [id number] #### [facility] [address] [place], [place] [address]Ijhavv [Moles/Vol]140 mmol/OKdsmfe502-401PgbtanMccullough-Hyde Memorial HospitalComment on above:Performed By: #### [id number] #### [facility] [address] [place] [place], [place] [address]Rsrv nitrogen [Mass/Vol]8 mg/dLNormal5-21[facility] HospitalComment on above:Performed By: #### [id number] #### [facility] [address] [place], [place] [address]Qyqvgp Medicine Office/Clinic Noteon 83-91-4807Kjmxnf Medicine Office/Clinic NoteFami Medicine Office/Clinic Note Chief Complaint ER F/U adamant that she hasve a STAT K+ lab drawn for results today HPI Staff ER followup: [facility] Visit date: 06/23-06/25 Symptoms the patient presented with: Right sided weakness Symptom onset/injury onset: C/O TIA's Testing Performed: EKG, CT, X-Ray, US New medications: Albuterol 0.083% Inh 3ml Q4hr PRN New specialist involved none Therapy ordered:none Next appointment date: Today Current concerns: Wants labs done to see if her K+is to low despite having been in the hospital for2 days receiving not only oral but also IV K+; Patient wants to have the results TODAY so she is DEMANDING a STSAT order so she can have the results today History of Present Illness Nathaniel is a 49 year old female who presents for a hospital follow up. She was in the hospital for stroke like symptoms - all images of brain and CTA neck were normal. Her Potassium and sodium werelow and she was admitted to the hospital. She had several EKG's and an echo done which were all normal. She was on HCTZ 25mg daily and she reports the ED doctor stopped this medication because he believes this was causing the drop in her electrolytes. She was started on HCTZ within the last few weeks due to her BP being elevated - she believes her PCP started the medication, however, she is not taking it at this time. Her BP is elevated in the office and she is very anxious today. She is in tears and visibly shaking- she did not take her anxiety medication yet today because she wanted an accurate reading of her BP and pulse. She is seeing Dr Bah and he manages her xanax and seroquel - she does not want to see her anymore and feels like she does not listen to her and she will not increase her Xanax. I believe she needs her xanax increased - she is incredibly anxious, tearful, jumping between multiple topics, and worked up. She reports she has been on Xanax 0.5mg TID for > 10 years and feels like it'snot effective any longer and her psych provider won't increase the medication. I am willing to increase the Xanax to 1 mg today. Staff HPI and OARRS reviewed. Review of Systems PHQ Score Initial Depression Screen Score: 0 SCORE Physical Exam Vitals & Measurements HR: 97(Peripheral) RR: 18 BP: 140/88 SpO2: 97% HT: 59 in HT: 149.8 cm WT: 129.632 lb WT: 58.8 kg BMI: 26.2 General: alert, mild distress, very tearful and anxious ENMT: TM's clear, oral mucosa moist, no pharyngeal erythema or exudate Cardiovascular: regular rate and rhythm, normal peripheral perfusion Respiratory: Lungs CTA, respirations non labored Extremities: no deformity, no trauma Neurological: oriented x 4, LOC appropriate for age, CN II-XII intact, motor strength equal & normal bilaterally, sensation equal & normal bilaterally, speech normal Assessment/Plan 1. Anxiety, (F41.9: Anxiety disorder, unspecified)Anxiety increase xanax to 1mg TID make appointment with Dr Bah if she is planning to continue with psych services - consider referral to different psych. fu 1 month with me to eval how increase is working also increasing metoprolol to 100 Ordered: alprazolam, 1 mg = 1 tab(s), Oral, TID, PRN for anxiety, # 90 tab(s), Refills(s) 1, Pharmacy: [id number], 149.8, cm, 06/27/25 9:26:00 EDT, Height/Length Dosing, 58.8, kg, 06/27/25 9:26:00 EDT, Weight Dosing 2. Low blood potassium, (E87.6: Hypokalemia)Low blood potassium continue potassium supplement of 20meq daily stat labs today fu 1 m Ordered: potassium chloride, 20 mEq = 1 tab(s), Oral, Daily, # 30 tab(s), Refills(s) 11, Pharmacy: [id number], 149.8, cm, 06/27/25 9:26:00 EDT, Height/Length Dosing, 58.8, kg, 06/27/25 9:26:00 EDT, Weight Dosing 3. BMI 26.0-26.9,adult (Z68.26: Body mass index [BMI] 26.0-26.9, adult) stable Ordered: 1126F Pain severity quantified; no pain present Body Mass Index (BMI) documented 3008F CBC w/ Auto Diff Comprehensive Metabolic Panel Current tobacco smoker 1034F Depression Screening Negative 3352F Functional status assessed 1170F Medication list documented in medical record 1159F Most recent diastolic blood pressure 80-89 mm Hg 3079F Most recent systolic blood pressure >= 140 mm Hg 3077F 4. Smoker (F17.200: Nicotine dependence, unspecified, uncomplicated) stable Ordered: 1126F Pain severity quantified; no pain present Body Mass Index (BMI) documented 3008F CBC w/ Auto Diff Comprehensive Metabolic Panel Current tobacco smoker 1034F Depression Screening Negative 3352F Functional status assessed 1170F Medication list documented in medical record 1159F Most recent diastolic blood pressure 80-89 mm Hg 3079F Most recent systolic blood pressure >= 140 mm Hg 3077F 5. Hypertension, (I10: Essential (primary) hypertension)HTN (hypertension) increase metoprolol to 100mg daily monitor MALIA at home and keep record for my review at fu Ordered: metoprolol, 100 mg = 1 tab(s), Oral, Daily, # 90 tab(s), Ref (more content not included)...NormalMccullough-Hyde Memorial HospitalComment on above:Result Comment: Electronically Signed By: EUGENIA LINCOLN\.br\Date and Time Signed: 06/27/25 10:37 WXHYxlD4gjj 87-19-7310PvV5j (Bld) [Mass fraction]5.2 %Normal<=5.9 [facility] HospitalComment on above:Performed By: #### [id number] #### [facility] [address] [place], [place] [address]Jagthk 98-06-8572Bgby16 microgram/nDCvftoi66-097EvoagrMccullough-Hyde Memorial HospitalComment on above:Performed By: #### [id number] #### [facility] [address] [place], [place] [address]Xetwxtzino Healthon 96-08-9263IjbzulkvjwAtrium Health [facility] Case Information Case Priority: None Programs: -- Referral Source: Catering Director Referral Reason: Care coordination Case Type: Transition Care Management Risk Score: -- Case Status: Enrolled (June 27, 2025) Date Assigned: June 26, 2025 Assigned By: Jacinda Tomlinson RN Date Enrolled: June 27, 2025 Assigned Primary Personnel: Bushra MCDOWELL, Jacinda Thacker Assigned Secondary Personnel: -- Case Physician: German Sheehan DO Problems Ongoing Asthma BMI 26.0-26.9,adult Dextroscoliosis of thoracic spine Generalized anxiety disorder with panic attacks GERD (gastroesophageal reflux disease) Hyperlipidemia Hypertension Hypertension Osteoarthritis of right shoulder Over weight Panic disorder [episodic paroxysmal anxiety] Smoker Tobacco abuse Historical Endometriosis IBS - Irritable bowel syndrome Procedure/Surgical History Appendectomy, x2, Colonoscopy, Hysterectomy, Repair of recurrent inguinal hernia, spine surgery for scoliosis. Home Medications acetaminophen 325 mg Tab, 650 mg= 2 tab(s), Oral, q6hr, PRN albuterol 0.083% Inh Teresita 3 mL, 0.083% - 3mL dosing units, Inhalation, q4hr, PRN, 3 refills, Not taking: Not taking alendronate 70 mg Tab, 70 mg= 1 tab(s), Oral, q7day APAP/butalbital/caffeine 325 mg-50 mg-40 mg Tab, 1 tab(s), Oral, q4hr, PRN aspirin 81 mg Oral EC Tab, 81 mg= 1 tab(s), Oral, Daily atorvastatin 80 mg Tab, 80 mg= 1 tab(s), Oral, Bedtime, Not taking: Per pt, not comfortable taking it lidocaine 5% patch, 2 patch(es), Topical, Daily nicotine 7 mg/24 hr Transderm ER Film, 7 mg= 1 patch(es), TransDermal, Daily omeprazole 40 mg Cap-DR, 40 mg= 1 cap(s), Oral, Daily, 3 refills potassium chloride 10 mEq Cap-ER, 20 mEq= 2 cap(s), Oral, Daily Seroquel, 50 mg, Oral, Bedtime Toprol XL 50 mg Tab-ER, 50 mg= 1 tab(s), Oral, Daily, 2 refills Ventolin HFA 90 mcg/inh Aerosol-Adpt, 2 puff(s), Inhalation, QID, PRN, 5 refills Xanax 0.5 mg Tab, 0.5 mg= 1 tab(s), Oral, TID, PRN, Still taking, not as prescribed: TID Allergies hydroCHLOROthiazide (Hyponatremia) LaMICtal (Unknown) Tape (rash) bacitracin clindamycin (Unknown) vancomycin Social History Alcohol - Denies Alcohol Use, 01/01/2022 Current, Wine, 3-5 times per week, Previous treatment: None. Household alcohol concerns: No., 05/23/2025 Substance Abuse - High Risk, 01/01/2022 Current, Marijuana, Daily, Previous treatment: None. Household substance abuse concerns: No., 05/23/2025 Tobacco - High Risk, 01/01/2022 10 or more cigarettes (1/2 pack or more)/day in last 30 days Tobacco Use:. Never Smokeless Tobacco Use:. Cigarettes, 10 per day. 37 year(s). Total pack years: 19. Started age 12.0 Years. Previous treatment: None. Ready to change: No. Household tobacco concerns: No. Yes, 06/13/2025 Screenings and Assessments 06/27/25 08:16:00 Result Name Value Comment Phone Call Monitoring Consent Agreed to continue call Phone Verification Patient Information Full name, street address and date of verified Program Enrollment Provides verbal consent for enrollment Goals and Interventions Care Plan Progress Note Admit Date: 06/23/2025 Date of Discharge: 06/26/2025 Follow-up appointment scheduled? Yes Sapna Shepard - 06/27/2025 at 0920 Did you understand your discharge instructions? Yes Are you able to follow them? Yes Did you receive new medications? nicotine patch - 1 patch daily Have you filled the Rx's? Are you taking them as prescribed? Are you having difficulty eating or swallowing your pills? No Are you having any stomach upset, diarrhea or constipation? pt has ibs How are you sleeping? not well Are you having any pain? lower back Do you have everything you need at home to care for yourself? Yes Do you have Home Health? No Called patient for initial Transitional Care Management Program. Patient is a moderate risk for readmission. Reviewed discharge instructions and diagnosis of stroke-like symptoms, macrocytosis, hypokalemia, palpitation, hld, ptsd, bipolar disorder, asthma, chronic gerd, tobacco use, osteoporosis and nicolette. Medications to be reconciled at office visit. No new medications ordered. Medication changes potassium chloride 10mEq 1 cap daily changed to 2 caps daily. Patient was also instructed to stop taking benzonate. Patient reports that she is feeling better. She said she was told was not having anyseizure activty; she said this is what they were checking for at this admission. She is having somelower back pain. She was a little upset because she reports that she was started on medication for a uti but once the blood work came back it showed no uti and was stopped. She is also has questions about her blood work - this will be discussed with her at her office visit. She is also requesting areferral for a colonoscopy. She said while in the hospital she did fill out paperwork to have it sent to D (more content not included)...NormalMccullough-Hyde Memorial HospitalTS With T4fr Reflexon 75-33-7048PQA Qn1.68 m[IU]/LNormal0.34-5.60[facility] HospitalComment on above:Performed By: #### [id number] #### [facility] [address] [place], [place] [address]Dmx B12on 82-11-9747Qnucjkdvr (Vitamin B12) [Mass/Vol]258 pg/mL Wrcfud47-6144VtmkybMccullough-Hyde Memorial HospitalComment on above:Performed By: #### [id number] #### [facility] [address] [place], [place] [address]Pbofqhn D 25 Hydroxyon 73-04-9426Nnzchxv D 25 Klwhofr98.9 ng/mL Low30.0-100.0[facility] HospitalComment on above:Performed By: #### [id number] #### [facility] [address] [place], [place] [address]fYBQvq 43-02-8573nNLZ730 mL/min/1.73 q6Sxuoqa>=59[facility] HospitalComment on above:Performed By: #### [id number] #### [facility] [address] [place], [place] [address]BZXnr 23-90-1409Tuzjc gap [Moles/Vol]10 mmol/LNormal6-16[facility] HospitalComment on above:Performed By: #### [id number] #### [facility] [address] [place], [place] [address]REQ/Creat Ratio13 No VxskbPyedge17-04HbdntwMccullough-Hyde Memorial HospitalComment on above:Performed By: #### [id number] #### [facility] [address] [place], [place] [address]Jjksgml [Mass/Vol]9.2 mg/dLNormal8.9-11.1FSelect Medical Specialty Hospital - [facility], IncComment on above:Performed By: #### [id number] #### [facility] [address] [place], [place] [address]Gghciiwc [Moles/Vol]105 mmol/WZeuqvw794-731UdzumsMccullough-Hyde Memorial HospitalComment on above:Performed By: #### [id number] #### [facility] [address] [place], [place] [address]LC2 [Moles/Vol]26 mmol/GIvjmtp57-40IzdalxMccullough-Hyde Memorial Hospital Comment on above:Performed By: #### [id number] #### [facility] [address] [place], [place] [address]Pcsuqnrkas [Mass/Vol]0.7 mg/dLNormal0.5-1.3FSelect Medical Specialty Hospital - [facility], IncComment on above:Performed By: #### [id number] #### [facility] [address] [place], [place] [address]Cyumptc [Mass/Vol]110 mg/kHMkuogl41-922TxfgdkMccullough-Hyde Memorial HospitalComment on above:Performed By: #### [id number] #### [facility] [address] [place], [place] [address]Cvoxvefap [Moles/Vol]3.4 mmol/LLow3.5-5.3FSelect Medical Specialty Hospital - [facility], IncComment on above:Performed By: #### [id number] #### [facility] [address] [place], [place] [address]Ydvfvg [Moles/Vol]138 mmol/FVdkvlt299-550RhyiccMccullough-Hyde Memorial HospitalComment on above:Performed By: #### [id number] #### [facility] [address] [place], [place] [address]Vmnk nitrogen [Mass/Vol]9 mg/dLNormal5-21[facility] Memorial HospitalComment on above:Performed By: #### [id number] #### [facility] [address] [place] [address]Y Urineon 20-89-3175Rjmkbpsb identified Cx Nom (U)Microbiology PROCEDURE: Urine Culture [R1] SOURCE: U CleanCatch BODY SITE: COLLECTED DATE/TIME: 06/23/2025 20:33 EDT RECEIVED DATE/TIME: 06/23/2025 21:02 EDT START DATE/TIME: 06/23/2025 21:02 EDT FREE TEXT SOURCE: Lenard DO, Antonio S. Lenard DO, Antonio S. FINAL REPORTS Final Report [] Verified Date/Time: 06/25/2025 06:52 EDT 700 cfu/ml Mixed skin contaminants Performing Locations R1: This test was performed at: [facility], [address] [place] [address], [address], ZduyatWhvyxeVan Wert County HospitalComment on above:Performed By: #### [id number] #### [facility] [address] [place] [address]BCR w/ Auto Diffon 59-02-8303Bawsjlhx Absolute0.1 E9/LNormal 0.0-0.2FSelect Medical Specialty Hospital - [facility], IncComment on above:Performed By: #### [id number] #### [facility] [address] [place] [address]Hoeoyrzle/100 WBC (Bld)1.1 %Normal0.0-2.0[facility] HospitalComment on above:Performed By: #### [id number] #### [facility] [address] [place] [address]Cbx Absolute0.0 E9/LNormal0.0-0.5FSelect Medical Specialty Hospital [facility], Inc Comment on above:Performed By: #### [id number] #### [facility] [address] [place] [address]Ssbqklniknq/100 WBC (Bld)0.4 %Normal0.0-8.0[facility] Memorial HospitalComment on above:Performed By: #### [id number] #### [facility] [address] [place], [place] [address]Oqtollrpccd distribution width (RBC) [Ratio]14.1 %Normal 10.9-14.2FSelect Medical Specialty Hospital - Board[facility], IncComment on above:Performed By: #### [id number] #### [facility] [address] [place] [address]Rkkmakfbsa (Bld) [Volume fraction]41.8 %Vealrp74.0-46.0[facility] Memorial HospitalComment on above:Performed By: #### [id number] #### [facility] [address] [place] [address]Hzabysdorx (Bld) [Mass/Vol]14.5 g/yZCytasz07.0-16.0[facility] HospitalComment on above:Performed By: #### [id number] #### [facility] [address] [place] [address]Ljglx Absolute2.7 E9/LNormal1.0-4.0[facility] Comment on above:Performed By: #### [id number] #### [facility] [address] [place] [address]Dbktyeffkby/100 WBC (Bld)42.9 %Rynghb49.0-50.0[facility] HospitalComment on above:Performed By: #### [id number] #### [facility] [address] [place] [address]SUF (RBC) [Entitic mass]36.0 xkUing45.0-34.0[facility] HospitalComment on above:Performed By: #### [id number] #### [facility] [address] [place] [address]SPEX (RBC) [Mass/Vol]34.7 g/jRTeoxcz56.4-36.0[facility] HospitalComment on above:Performed By: #### [id number] #### [facility] [address] [place], [place] [address]KWI (RBC) [Entitic vol]103.9 uFMxmw34.0-100.0[facility] Memorial HospitalComment on above:Performed By: #### [id number] #### [facility] [address] [place] [place], [place] [address]Aeiw Absolute0.4 E9/LNormal0.2-1.0[facility] Comment on above:Performed By: #### [id number] #### [facility] [address] [place], [place] [address]Bdqdebmtu/100 WBC (Bld)6.3 %Normal4.0-14.0[facility] Memorial HospitalComment on above:Performed By: #### [id number] #### [facility] [address] [place] [address]Sdbpmv Absolute3.1 E9/LNormal2.0-7.5FSelect Medical Specialty Hospital [facility], Inc Comment on above:Performed By: #### [id number] #### [facility] [address] [place] [address]Xpkbpm Auto49.3 %Wzmtqa41.0-75.0[facility] Comment on above:Performed By: #### [id number] #### [facility] [address] [place] [address]Ywwzuuyt243.0 E9/CIzakem030.0-500.0[facility] Comment on above:Performed By: #### [id number] #### [facility] [address] [place], [place] [address]Xwpauotc mean volume (Bld) [Entitic vol]7.0 fLNormal6.4-10.8 [facility] HospitalComment on above:Performed By: #### [id number] #### [facility] [address] [place] [address]IGK0.0 E12/LLow4.3-5.9[facility] HospitalComment on above:Performed By: #### [id number] #### [facility] [address] [place] [place], [place] [address]MBX3.2 E9/LNormal4.0-11.0[facility] And HospitalComment on above:Performed By: #### [id number] #### [facility] [address] [place], [place] [address]Qcqxiztdc Note-Nursingon 52-30-2437Vfapxyhuv Note-Nursing Discharge Note-Nursing NATHANIEL MARCIAL :1975 Visit Date:06/23/2025 Inpatient Discharge Instructions Your Care Team Admitting Physician - Noel MORALES DO Consulting Physician - Wicho Rivas MD Reason for Your Visit pt arrives for c/o TIA's. pt states she is having right sided weakness. pt last known well is 1630 Your Diagnosis Stroke-like symptoms Macrocytosis Hypokalemia Palpitations Hyperlipidemia PTSD (post-traumatic stress disorder) Bipolar disorder Asthma Chronic GERD Tobacco use Osteoporosis NICOLETTE (obstructive sleep apnea) Tests Performed CT Head or Brain w/o Contrast Echo w/ Saline Bubbles XR Chest Single View This Is Your Medications List APAP/butalbital/caffeine (APAP/butalbital/caffeine 325 mg-50 mg-40 mg Tab) acetaminophen (acetaminophen 325 mg Tab) albuterol (Ventolin HFA 90 mcg/inh Aerosol-Adpt) albuterol (albuterol 0.083% Inh Teresita 3 mL) alendronate (alendronate 70 mg Tab) alprazolam (Xanax 0.5 mg Tab) aspirin (aspirin 81 mg Oral EC Tab) atorvastatin (atorvastatin 80 mg Tab) lidocaine topical (lidocaine 5% patch) metoprolol (Toprol XL 50 mg Tab-ER) nicotine (nicotine 7 mg/24 hr Transderm ER Film) omeprazole (omeprazole 40 mg Cap-DR) potassium chloride (potassium chloride 10 mEq Cap-ER) quetiapine (Seroquel) [Image Removed: STOP]Stop taking these medications benzonatate (Tessalon 100 mg Cap) Procedure History Appendectomy, x2, Colonoscopy, Hysterectomy, Repair of recurrent inguinal hernia, spine surgery for scoliosis. Discharge Vitals Temperature (Oral) 36.7 ???C Heart Rate (Apical) 72 Respiratory Rate 18 Blood Pressure 118/76 Weight 59.7 kg What to do next Instructions From Your Doctor Event Name Event Result Discharge Activity Activity as tolerated Discharge Diet(s) Fat Modified- Low cholesterol, Other: Potassium rich diet- see written instruction Pending Diagnostic Test Results Other: Repeat BMP in 1 week to re-evaluate potasium level- follow up with PCP for further work up for on-going potassium issues Discharge Instructions Follow up with PCP within 1 weekNeurology in 2-4 weeks Previously Scheduled Follow-Up Appointments Monday 2:15 PM EDT With: Where: [facility] Monday 2:30 PM EDT With: Where: [facility] Monday 11:20 AM EDT With: German Sheehan DO Where: [facility] [address] [place] [address]- Monday2025 9:30 AM EDT With: Where: [place] [address] [place] [address]- New Follow Up Appointments after Discharge Follow Up with German Sheehan When: 07/11/2025 11:20 AM EDT Comments: Keep scheduled appointment Where: [address] [address]- Business (1) Follow Up with Lab, [facility] When: Within 1 week Comments: Order for BMP to be done within 1 week to re-check potassium level Where: Follow Up with Neurology When: Within 2 to 4 weeks Comments: Call [phone] for follow up appt - An appt. request with your contact information is faxed to this office. They will call you for a follow up appt. If you do not hear from them in a few days, then please call the office. Thank you. Where: Medications What How Much When Instructions Next Dose New nicotine (nicotine 7 mg/ 24 hr Transderm ER Film) 1 Patches Transdermal Every day Pickup at [facility]/pharmacy #[id number] 10 am Changed potassium chloride (potassium chloride 10 mEq Cap-ER) 2 Capsules By Mouth Every day Increased dose of KCl supplement- recommend following up with PCP within 1 week for K+ recheck Pickup at [facility]/pharmacy #[id number] 10/2 am Unchanged acetaminophen (acetaminophen 325 mg Tab) 2 Tablets By Mouth Every 6 hours as needed for Pain as needed Unchanged albuterol (albuterol 0.083% Inh Teresita 3 mL) 0.083% - 3mL dosing units Inhalation Every 4 hours as needed for Wheezing dx. J45.909 as needed Unchanged albuterol (Ventolin HFA 90 mcg/ inh Aerosol-Adpt) 2 Puffs Inhalation 4 times a day as needed for for wheezing as needed Unchanged alendronate (alendronate 70 mg Tab) 1 Tablets By Mouth Every 7 days as prescribed Unchanged alprazolam (Xanax 0.5 mg Tab) 1 Tablets By Mouth 3 times a day as needed for for anxiety prn as needed Unchanged APAP/ butalbital/ caffeine (APAP/ butalbital/ caffeine 325 mg-50 mg-40 mg Tab) 1 Tablets By Mouth Every 4 hours as needed for Headache as needed Unchanged aspirin (aspirin 81 mg Oral EC Tab) 1 Tablets By Mouth Every day 10/2 am Unchanged atorvastatin (atorvastatin 80 mg Tab) 1 Tablets By Mouth At bedtime 10/ pm Unchanged lidocaine topical (lidocaine 5% patch) 2 Patches Topical Every day 10/2 am Unchanged metoprolol (Toprol XL 50 mg Tab-ER) 1 Tablets By Mouth Every day 10/2 am Unchanged omeprazole (omeprazole 40 mg Cap-DR) 1 Capsules By Mouth Every day 30 minutes p (more content not included)...[facility] [id number] CLINICAL HISTORY: Recurrent episodes spreading paresthesias from head down right arm or both arms. Date of service 06/24/2025. TECHNICAL INFORMATION: This routine EEG was performed using the standard international 10-20 system of lead placement. Alldata was obtained digitally and available for reformatting and remontaging. Simultaneous electrocardiogram monitoring was performed during the recording. DESCRIPTION OF EEG RECORDING: Posterior dominant rhythm was apparent, was of very high amplitude, was 11 Hz, and appropriately attenuated with eye-opening. Electrical activity is generally of symmetric amplitude between hemispheres and from anterior to posterior. Photic stimulation was used as an activating procedure and resulted in no abnormal findings. Hyperventilation was used as an activating procedure and resulted in normal physiologic changes. No electrographic sleep was observed. No epileptiform activity was seen throughout the entirety of the recording. No significant or interpretation-limiting artifact was seen. IMPRESSION: This is a normal EEG. Normal appearing electrical background. No seizures or epileptiform activity were seen. No concerning findings that would be suggestive of an increased risk of seizure.[facility] CenterComment on above:Result Comment: Electronically Signed By: German Luciano DO\.br\Date and Time Signed: 06/25/25 08:46 EDTInpatient Clinical Summaryon [id number] Clinical SummaryInpatient Clinical Summary [address] [address] Clinical Summary Person Information: Name: NATHANIEL MARCIAL Age: 49 Years : 1975 Sex: Female PCP: German Sheehan DO Marital Status: Phone: [phone] Race: White Ethnicity: Non- or Language: Barbadian Visit Id: Visit Reason: STROKE SYMPTOMS Speciality: Acuity: Enc Type: Observation Med Service: Medical Arrival: 06/23/2025 19:45:01 Discharge: Dispo Type: Admitted as IP to this Hosp Address: [address] [place] [address] [facility] [phone] Provider Notes: Diagnosis: 1:Stroke-like symptoms; 2:Macrocytosis; 3:Hypokalemia; 4:Palpitations; 5:Hyperlipidemia; 6:PTSD (post-traumatic stress disorder); 7:Bipolar disorder; 8:Asthma; 9:Chronic GERD; 10:Tobacco use; 11:Osteoporosis; 12:NICOLETTE (obstructive sleep apnea) Problems Active Tobacco abuse Hyperlipidemia Hypertension Over weight BMI 26.0-26.9,adult Osteoarthritis of right shoulder Panic disorder [episodic paroxysmal anxiety] Generalized anxiety disorder with panic attacks GERD (gastroesophageal reflux disease) Asthma Hypertension Dextroscoliosis of thoracic spine Smoker Smoking Status: Light tobacco smoker Functional Status: Sensory Deficits: Other: Glasses here History of Falls: Mobility Assistance Prior to Admission: ADLs: Independent Current Level of Assistance for Self-Care/Mobility: Cognitive Status: Oriented x 3 Allergies vancomycin bacitracin Tape (rash) LaMICtal (Unknown) clindamycin (Unknown) hydroCHLOROthiazide (Hyponatremia) Measurements: Height: 149.86 cm Weight: 59.7 kg Blood Pressure: 118 mmHg / 76 mmHg BMI: 26.98 kg/m2 Procedures No Procedures Performed or Documented Immunizations No Immunizations Documented This Visit Final Med List: acetaminophen (acetaminophen 325 mg Tab) 2 Tablets By Mouth every 6 hours as needed Pain. albuterol (albuterol 0.083% Inh Teresita 3 mL) 0.083% - 3mL dosing units Inhalation every 4 hours as needed Wheezing. dx. J45.909. Refills: 3. albuterol (Ventolin HFA 90 mcg/inh Aerosol-Adpt) 2 Puffs Inhalation 4 times a day as needed for wheezing. Refills: 5. alendronate (alendronate 70 mg Tab) 1 Tablets By Mouth every 7 days. alprazolam (Xanax 0.5 mg Tab) 1 Tablets By Mouth 3 times a day as needed for anxiety. prn. APAP/butalbital/caffeine (APAP/butalbital/caffeine 325 mg-50 mg-40 mg Tab) 1 Tablets By Mouth every4 hours as needed Headache. Refills: 0. aspirin (aspirin 81 mg Oral EC Tab) 1 Tablets By Mouth every day. Refills: 0. atorvastatin (atorvastatin 80 mg Tab) 1 Tablets By Mouth at bedtime. Refills: 0. lidocaine topical (lidocaine 5% patch) 2 Patches Topical every day. metoprolol (Toprol XL 50 mg Tab-ER) 1 Tablets By Mouth every day. Refills: 2. nicotine (nicotine 7 mg/24 hr Transderm ER Film) 1 Patches Transdermal every day. Refills: 0. omeprazole (omeprazole 40 mg Cap-DR) 1 Capsules By Mouth every day. 30 minutes prior to food or anyother medication.. Refills: 3. potassium chloride (potassium chloride 10 mEq Cap-ER) 2 Capsules By Mouth every day. Refills: 0. quetiapine (Seroquel) 50 Milligram By Mouth at bedtime. Care Team Members: Attending Physician: Noel MORALES DO Consulting Physician: Wicho Rivas MD Referring Physician: Follow up: With: Address: When: German Link [address] [place], [place] [id number] [facility] (1) 07/11/2025 11:20 AM Comments: Keep scheduled appointment With: Address: When: Lab, [facility] Within 1 week Comments: Order for BMP to be done within 1 week to re-check potassium level With: Address: When: Neurology Within 2 to 4 weeks Comments: Call [phone] for follow up appt - An appt. request with your contact information is faxed to this office. They will call you for a follow up appt. If you do not hear from them in a few days, then please call the office. Thank you. Type Location Start [facility] MA Screen (FT) FT.MAMMOGRAM 07/02/2025 2:15 PM 07/02/2025 2:30 PM Confirmed BD Bone Density (FT) FT.BD 07/02/2025 2:30 PM 07/02/2025 3:00 PM Confirmed FM Open [facility] 07/11/2025 11:20 AM 07/11/2025 11:40 AM Confirmed FM Medicare Wellness Subsequent [facility] 05/20/2026 9:30 AM 05/20/2026 10:30 AM Confirmed Patient Education Information: Steps to Quit Smoking; Potassium Content of Foods; Sleep Apnea; Smoking Tobacco Information, Adult;Core Measures: Stroke (Cerebrovascular Accident) [facility] CenterInpatient Patient Summaryon 06-25-2025 Inpatient Patient SummaryInpatient Patient Summary [place] [address] Patient Discharge Instructions PERSON INFORMATION Name: NATHANIEL MARCIAL Date of : 1975 Current Date: 06/25/2025 09:34:08 PHYSICIANS Admitting Physician: Noel MORALES DO Primary Care Physician: German Sheehan DO PCP Comment: Discharge Diagnosis: 1:Stroke-like symptoms; 2:Macrocytosis; 3:Hypokalemia; 4:Palpitations; 5:Hyperlipidemia; 6:PTSD (post-traumatic stress disorder); 7:Bipolar disorder; 8:Asthma; 9:Chronic GERD; 10:Tobacco use; 11:Osteoporosis; 12:NICOLETTE (obstructive sleep apnea) Condition at Discharge: Stable NATHANIEL MARCIAL has been given the following list of follow-up instructions, prescriptions, and patient education materials: PATIENT FOLLOW-UP INFORMATION Diet: Fat Modified- Low cholesterol, Other: Potassium rich diet- see written instruction Discharge Activity: Activity as tolerated Discharge Restrictions: Wound Care Instructions: Remove Your Dressing In Days Call Your Doctor For: IF UNABLE TO CONTACT YOUR PHYSICIAN AND YOU FEEL IT IS AN EMERGENCY, GO TO THE NEAREST EMERGENCY ROOM OR CALL 911 Home Treatment: Devices/Equipment: Cane, Wheelchair Special Services: Additional Instructions: Follow up with PCP within 1 week Neurology in 2-4 weeks Primary Care Physician to provide the following pending test results: Other: Repeat BMP in 1 week to re-evaluate potasium level- follow up with PCP for further work up for on-going potassium issues Follow up: With: Address: When: German Link [address] [place] [address] [facility] (1) 07/11/2025 11:20 AM Comments: Keep scheduled appointment With: Address: When: Lab, Ft Within 1 week Comments: Order for BMP to be done within 1 week to re-check potassium level With: Address: When: Neurology Within 2 to 4 weeks Comments: Call [phone] for follow up appt - An appt. request with your contact information is faxed to this office. They will call you for a follow up appt. If you do not hear from them in a few days, then please call the office. Thank you. In the event that this physician does not participate in your insurance network, please consult with your insurance company to find a nearby participating provider. Type Location Start [facility] [place] Screen (FT) FT.MAMMOGRAM 07/02/2025 2:15 PM 07/02/2025 2:30 PM Confirmed BD Bone Density (FT) FT.BD 07/02/2025 2:30 PM 07/02/2025 3:00 PM Confirmed FM Open [facility] 07/11/2025 11:20 AM 07/11/2025 11:40 AM Confirmed FM Medicare Wellness Subsequent [facility] 05/20/2026 9:30 AM 05/20/2026 10:30 AM Confirmed Comment: ANIKET Pace SHANNON K, have received the attached patient education materials/instructions and have verbalized understanding: Patient Signature Date Clinican/Nurse Signature Date HERE ARE THE MEDICATION CHANGES THAT OCCURRED DURING YOUR HOSPITAL STAY New Medications [id number], [address] [place], [place] [id number], [phone] nicotine (nicotine 7 mg/24 hr Transderm ER Film) 1 Patches Transdermal every day. Refills: 0. Last Dose: Next Dose: Medications to Continue Taking That Have Changed [id number], [address] [place], [place] [id number], [phone] START: potassium chloride (potassium chloride 10 mEq Cap-ER) 2 Capsules By Mouth every day. Refills: 0. Patient instructions: Increased dose of KCl supplement- recommend following up with PCP within 1 week for K+ recheck Last Dose: Next Dose: STOP: potassium chloride (potassium chloride 10 mEq Cap-ER) 1 Capsules By Mouth every day. Refills:0. Medications to Continue with No Changes Other Medications acetaminophen (acetaminophen 325 mg Tab) 2 Tablets By Mouth every 6 hours as needed Pain. Last Dose: Next Dose: albuterol (albuterol 0.083% Inh Teresita 3 mL) 0.083% - 3mL dosing units Inhalation every 4 hours as needed Wheezing. dx. J45.909. Refills: 3. Last Dose: Next Dose: albuterol (Ventolin HFA 90 mcg/inh Aerosol-Adpt) 2 Puffs Inhalation 4 times a day as needed for wheezing. Refills: 5. Last Dose: Next Dose: alendronate (alendronate 70 mg Tab) 1 Tablets By Mouth every 7 days. Last Dose: Next Dose: alprazolam (Xanax 0.5 mg Tab) 1 Tablets By Mouth 3 times a day as needed for anxiety. prn. Last Dose: Next Dose: APAP/butalbital/caffeine (APAP/butalbital/caffeine 325 mg-50 mg-40 mg Tab) 1 Tablets By Mouth every4 hours as needed Headache. Refills: 0. Last Dose: Next Dose: (more content not included)... NormalMccullough-Hyde Memorial HospitalProgress Note-Physicianon [id number] Note-PhysicianProgress Note-PhysicianNormalMccullough-Hyde Memorial HospitalComment on above:Result Comment: Electronically Signed By: Pepper MCDOWELL, Romina [id number] mL/min/1.73 a3Falahw>=59M[facility]-Hyde Memorial HospitalComment on above:Performed By: #### [id number] #### [facility] [address] [place], [place] [address]EKZnk 36-30-9269Jfdlh gap [Moles/Vol]8 mmol/LNormal6-16M[facility] Memorial HospitalComment on above:Performed By: #### [id number] #### [facility] [address] [place] [address]WPN/Creat Ratio16 No NmwajUssczf88-25GmdvcpMccullough-Hyde Memorial HospitalComment on above:Performed By: #### [id number] #### Gonzalez [facility] [address] [place], [place] [address]Esbaonn [Mass/Vol]9.2 mg/dLNormal8.9-11.1FSelect Medical Specialty Hospital - Boardman, IncComment on above:Performed By: #### [id number] #### [facility] [address] [place], [place] [address]Vzkmmrpp [Moles/Vol]106 mmol/PKtghve836-249BgpzwcMccullough-Hyde Memorial HospitalComment on above:Performed By: #### [id number] #### [facility] [address] [place], [place] [address]IU6 [Moles/Vol]29 mmol/ZYmkuia28-84OtgwdxMccullough-Hyde Memorial Hospital Comment on above:Performed By: #### [id number] #### [facility] [address] [place], [place] [address]Mhyhoqulzv [Mass/Vol]0.7 mg/dLNormal0.5-1.3FSelect Medical Specialty Hospital - Boardman, IncComment on above:Performed By: #### [id number] #### [facility] [address] [place], [place] [address]Nhkrqda [Mass/Vol]99 mg/sWDjnxyz24-467DuginqMccullough-Hyde Memorial HospitalComment on above:Performed By: #### [id number] #### [facility] [address] [place], [place] [address]Popqqnrea [Moles/Vol]3.8 mmol/LNormal3.5-5.3FSelect Medical Specialty Hospital - Boardman, IncComment on above:Performed By: #### [id number] #### [facility] [address] [place], [place] [address]Bdvgpc [Moles/Vol]139 mmol/GXxnxik564-346CqqemqMccullough-Hyde Memorial HospitalComment on above:Performed By: #### [id number] #### [facility] [address] [place], [place] [address]Nmat nitrogen [Mass/Vol]11 mg/dLNormal5-21M[facility]-Hyde Memorial HospitalComment on above:Performed By: #### [id number] #### [facility] [address] [place] [address]BUW w/ Auto Diffon 75-08-6052Jirhrtfu Absolute0.1 E9/LNormal 0.0-0.2FSelect Medical Specialty Hospital - Boardman, IncComment on above:Performed By: #### [id number] #### [facility] [address] [place] [address]Yjayufkzf/100 WBC (Bld)0.8 %Normal0.0-2.0M[facility]ough-Hyde Memorial HospitalComment on above:Performed By: #### [id number] #### [facility] [address] [place] [address]Sjz Absolute0.1 E9/LNormal0.0-0.5FSelect Medical Specialty Hospital - [facility], Inc Comment on above:Performed By: #### [id number] #### [facility] [address] [place] [address]Daitrnkfduc/100 WBC (Bld)0.8 %Normal0.0-8.0M[facility]ough-Hyde Memorial HospitalComment on above:Performed By: #### [id number] #### [facility] [address] [place] [address]Bmirzuiulew distribution width (RBC) [Ratio]14.2 %Normal 10.9-14.2FSelect Medical Specialty Hospital - Boardman, IncComment on above:Performed By: #### [id number] #### [facility] [address] [place] [address]Itsmutvdpn (Bld) [Volume fraction]39.5 %Xhxocu68.0-46.0M[facility]ough-Hyde Memorial HospitalComment on above:Performed By: #### [id number] #### [facility] [address] [place] [address]Qhjaxslvvu (Bld) [Mass/Vol]13.5 g/mWHtwozw93.0-16.0M[facility]-Hyde Memorial HospitalComment on above:Performed By: #### [id number] #### [facility] [address] [place] [address]Usjlc Absolute3.1 E9/LNormal1.0-4.0[facility] Comment on above:Performed By: #### [id number] #### [facility] [address] [place] [address]Olrealdlfpb/100 WBC (Bld)48.0 %Fygdoc88.0-50.0M[facility]-Hyde Memorial HospitalComment on above:Performed By: #### [id number] #### [facility] [address] [place] [address]GBR (RBC) [Entitic mass]34.9 caWkuu35.0-34.0M[facility]-Hy[facility] Memorial HospitalComment on above:Performed By: #### [id number] #### [facility] [address] [place] [address]CIWB (RBC) [Mass/Vol]34.2 g/dIVpodez04.4-36.0M[facility]-Hy[facility] Memorial HospitalComment on above:Performed By: #### [id number] #### [facility] [address] [place] [address]VCL (RBC) [Entitic vol]102.2 cPUaih26.0-100.0M[facility]-Hyde Memorial HospitalComment on above:Performed By: #### [id number] #### [facility] [address] [place] [address]Vcit Absolute0.5 E9/LNormal0.2-1.0[facility] Comment on above:Performed By: #### [id number] #### [facility] [address] [place] [address]Kaqljjlih/100 WBC (Bld)7.7 %Normal4.0-14.0M[facility]-Hyde Memorial HospitalComment on above:Performed By: #### [id number] #### [facility] [address] [place] [address]Xskcbv Absolute2.7 E9/LNormal2.0-7.5FSelect Medical Specialty Hospital - [facility], Inc Comment on above:Performed By: #### [id number] #### [facility] [address] [place], [place] [address]Aojdnh Auto42.7 %Wtbgro47.0-75.0[facility] Comment on above:Performed By: #### [id number] #### [facility] [address] [place], [place] [address]Gnewjtod864.0 E9/DZnpatw898.0-500.0[facility] Comment on above:Performed By: #### [id number] #### [facility] [address] [place], [place] [address]Hghrukap mean volume (Bld) [Entitic vol]7.5 fLNormal6.4-10.8 [facility] Memorial HospitalComment on above:Performed By: #### [id number] #### [facility] [address] [place] [address]DFI5.9 E12/LLow4.3-5.9M[facility]-Hy[facility] Memorial HospitalComment on above:Performed By: #### [id number] #### [facility] [address] [place] [address]YXV4.4 E9/LNormal4.0-11.0M[facility]-Hyde Memorial HospitalComment on above:Performed By: #### [id number] #### [facility] [address] [place] [address]PV Head or Brain w/o Contraston [id number] Head or Brain w/o ContrastExam Date/Time: 06/23/2025 20:00 EDT Reason for Exam: Neuro deficit, acute, stroke suspected;Stroke Report IMPRESSION: NEGATIVE CT SCAN OF THE BRAIN. NO EVIDENCE OF INTRACRANIAL HEMORRHAGE. CLINICAL HISTORY: Stroke, Neuro deficit, acute, stroke suspected. Headache. Weakness. COMPARISON: 06/20/2025. COMMENT: Unenhanced images were obtained. The ventricles and basal cisterns and cortical sulci appear within normal limits. There is no mass effect nor midline shift. No abnormal attenuation within the brain is noted. There is no evidence of intracranial hemorrhage nor extra-axial hematoma. No mass lesion is evident. No skull fracture is noted. There has been no significant change when compared to the prior exam. All CT scans at this facility use dose modulation, iterative reconstruction, and/or weight based dosing when appropriate to reduce radiation dose to as low as reasonably achievable. Ordering Provider: Antonio Weinberg FINAL REPORT Dictated: 06/24/2025 9:52 am Meliton Jha M.D. Signed (Electronic Signature): 06/24/2025 9:52 am Signed by: Meliton Jha M.D. Transcribed by: CARISA Technologist: HolaMccullough-Hyde Memorial HospitalHep Func Panelon [id number] [Mass/Vol]3.7 g/dLNormal3.3-5.0M[facility]-Hy[facility] Memorial HospitalComment on above:Performed By: #### [id number] #### [facility] [address] [place] [address]Wpyktof/Globulin [Mass ratio]1.4 {ratio}Normal1.1-2.2FSelect Medical Specialty Hospital - Boardman, IncComment on above:Performed By: #### [id number] #### [facility] [address] [place], [place] [address]Efc Phos80 Int._Unit/XBzlijn89-59YvalvrMccullough-Hyde Memorial Hospital Comment on above:Performed By: #### [id number] #### [facility] [address] [place], [place] [address]OGU87 Int._Unit/LNormal6-46M[facility]Hy[facility] Memorial HospitalComment on above:Performed By: #### [id number] #### [facility] [address] [place], [place] [address]RVM10 Int._Unit/LNormal5-43M[facility] Memorial HospitalComment on above:Performed By: #### [id number] #### [facility] [address] [place], [place] [address]Vsyp Direct0.0 mg/dLNormal0.0-0.4FSelect Medical Specialty Hospital - [facility], Inc Comment on above:Performed By: #### [id number] #### [facility] [address] [place], [place] [address]Epyh Indirect0.3 mg/dLNormal0.1-0.9[facility] Comment on above:Performed By: #### [id number] #### [facility] [address] [place] [address]Ylwu Total0.3 mg/dLNormal0.0-1.1FSelect Medical Specialty Hospital - [facility], Inc Comment on above:Performed By: #### [id number] #### [facility] [address] [place] [address]Bovioudr (S) [Mass/Vol]2.7 g/dLNormal1.4-4.0M[facility]-Hy[facility] Memorial HospitalComment on above:Performed By: #### [id number] #### [facility] [address] [place] [address]Lbvfkwl [Mass/Vol]6.4 g/dLNormal6.0-7.8M[facility]-Hyde Memorial HospitalComment on above:Performed By: #### [id number] #### [facility] [address] [place] [address]Knwcynnkp Clinical Summaryon [id number] Clinical SummaryInpatient Clinical Summary [address] [address] Clinical Summary Person Information: Name: NATHANIEL MARCIAL Age: 49 Years : 1975 Sex: Female PCP: German Sheehan DO Marital Status: Phone: [phone] Race: White Ethnicity: Non- or Language: Barbadian Visit Id: Visit Reason: Anxiety; Muscle weakness; Potential stroke; STROKE SYMPTOMS Speciality: Acuity: Enc Type: Observation Med Service: Medical Arrival: 06/23/2025 19:45:01 Discharge: Dispo Type: Admitted as IP to this [facility] Address: [address] [place] [address] [address] [place] [id number] Provider Notes: Diagnosis: 1:Stroke-like symptoms; 2:UTI (urinary tract infection); 3:Macrocytosis; 4:Palpitations; 5:Hyperlipidemia; 6:PTSD (post-traumatic stress disorder); 7:Bipolar disorder; 8:Asthma; 9:Chronic GERD; 10:Tobacco use; 11:Osteoporosis; 12:NICOLETTE (obstructive sleep apnea) Problems Active Tobacco abuse Hyperlipidemia Hypertension Over weight BMI 26.0-26.9,adult Osteoarthritis of right shoulder Panic disorder [episodic paroxysmal anxiety] Generalized anxiety disorder with panic attacks GERD (gastroesophageal reflux disease) Asthma Hypertension Dextroscoliosis of thoracic spine Smoker Smoking Status: Light tobacco smoker Functional Status: Sensory Deficits: Other: Glasses here History of Falls: Mobility Assistance Prior to Admission: ADLs: Independent Current Level of Assistance for Self-Care/Mobility: Cognitive Status: Oriented x 3 Allergies vancomycin bacitracin Tape (rash) LaMICtal (Unknown) clindamycin (Unknown) hydroCHLOROthiazide (Hyponatremia) Measurements: Height: 149.86 cm Weight: 60.6 kg Blood Pressure: 155 mmHg / 83 mmHg BMI: 26.98 kg/m2 Procedures No Procedures Performed or Documented Immunizations No Immunizations Documented This Visit Final Med List: acetaminophen (acetaminophen 325 mg Tab) 2 Tablets By Mouth every 6 hours as needed Pain. albuterol (albuterol 0.083% Inh Teresita 3 mL) 0.083% - 3mL dosing units Inhalation every 4 hours as needed Wheezing. dx. J45.909. Refills: 3. albuterol (Ventolin HFA 90 mcg/inh Aerosol-Adpt) 2 Puffs Inhalation 4 times a day as needed for wheezing. Refills: 5. alendronate (alendronate 70 mg Tab) 1 Tablets By Mouth every 7 days. alprazolam (Xanax 0.5 mg Tab) 1 Tablets By Mouth 3 times a day as needed for anxiety. prn. APAP/butalbital/caffeine (APAP/butalbital/caffeine 325 mg-50 mg-40 mg Tab) 1 Tablets By Mouth every4 hours as needed Headache. Refills: 0. aspirin (aspirin 81 mg Oral EC Tab) 1 Tablets By Mouth every day. Refills: 0. atorvastatin (atorvastatin 80 mg Tab) 1 Tablets By Mouth at bedtime. Refills: 0. benzonatate (Tessalon 100 mg Cap) 2 Capsules By Mouth 3 times a day. Refills: 1. lidocaine topical (lidocaine 5% patch) 2 Patches Topical every day. metoprolol (Toprol XL 50 mg Tab-ER) 1 Tablets By Mouth every day. Refills: 2. omeprazole (omeprazole 40 mg Cap-DR) 1 Capsules By Mouth every day. 30 minutes prior to food or anyother medication.. Refills: 3. potassium chloride (potassium chloride 10 mEq Cap-ER) 1 Capsules By Mouth every day. Refills: 0. quetiapine (Seroquel) 50 Milligram By Mouth at bedtime. Care Team Members: Attending Physician: Noel MORALES DO Consulting Physician: Wicho Rivas MD Referring Physician: Follow up: With: Address: When: German Aguila [facility] [address] [place] [address] [facility] (1) 06/25/2025 8:20 AM With: Address: When: Neurology Within 2 to 4 weeks Comments: Call [phone] for follow up appt - An appt. request with your contact information is faxed to this office. They will call you for a follow up appt. If you do not hear from them in a few days, then please call the office. Thank you. Type Location Start [facility] Follow Up w/TCM [facility] 06/25/2025 8:20 AM 06/25/2025 9:00 AM Confirmed MA Screen (FT) FT.MAMMOGRAM 07/02/2025 2:15 PM 07/02/2025 2:30 PM Confirmed BD Bone Density (FT) FT.BD 07/02/2025 2:30 PM 07/02/2025 3:00 PM Confirmed FM Open [facility] 07/11/2025 11:20 AM 07/11/2025 11:40 AM Confirmed Medicare Wellness Subsequent [facility] 05/20/2026 9:30 AM 05/20/2026 10:30 AM Confirmed Patient Education Information: Sleep Apnea; Smoking Tobacco Information, Adult; Core Measures: Stroke (Cerebrovascular Accident) [facility] Inpatient Patient Summaryon [id number] Patient SummaryInpatient Patient Summary [address] [address] Patient Discharge Instructions PERSON INFORMATION Name: NATHANIEL MARCIAL Date of : 1975 Current Date: 06/24/2025 11:49:48 PHYSICIANS Admitting Physician: Noel MORALES DO Primary Care Physician: German Sheehan DO PCP Comment: Discharge Diagnosis: 1:Stroke-like symptoms; 2:UTI (urinary tract infection); 3:Macrocytosis; 4:Palpitations; 5:Hyperlipidemia; 6:PTSD (post-traumatic stress disorder); 7:Bipolar disorder; 8:Asthma; 9:Chronic GERD; 10:Tobacco use; 11:Osteoporosis; 12:NICOLETTE (obstructive sleep apnea) Condition at Discharge: NATHANIEL MARCIAL has been given the following list of follow-up instructions, prescriptions, and patient education materials: PATIENT FOLLOW-UP INFORMATION Diet: Discharge Activity: Discharge Restrictions: Wound Care Instructions: Remove Your Dressing In Days Call Your Doctor For: IF UNABLE TO CONTACT YOUR PHYSICIAN AND YOU FEEL IT IS AN EMERGENCY, GO TO THE NEAREST EMERGENCY ROOM OR CALL 911 Home Treatment: Devices/Equipment: Cane, Wheelchair Special Services: Additional Instructions: Primary Care Physician to provide the following pending test results: Follow up: With: Address: When: German Sheehan [address] [place] [address] [facility] (1) 06/25/2025 8:20 AM With: Address: When: Neurology Within 2 to 4 weeks Comments: Call [phone] for follow up appt - An appt. request with your contact information is faxed to this office. They will call you for a follow up appt. If you do not hear from them in a few days, then please call the office. Thank you. In the event that this physician does not participate in your insurance network, please consult with your insurance company to find a nearby participating provider. Type Location Start [facility] Follow Up w/TCM [facility] 06/25/2025 8:20 AM 06/25/2025 9:00 AM Confirmed MA Screen (FT) FT.MAMMOGRAM 07/02/2025 2:15 PM 07/02/2025 2:30 PM Confirmed BD Bone Density (FT) FT.BD 07/02/2025 2:30 PM 07/02/2025 3:00 PM Confirmed FM Open [facility] 07/11/2025 11:20 AM 07/11/2025 11:40 AM Confirmed FM Medicare Wellness Subsequent [facility] 05/20/2026 9:30 AM 05/20/2026 10:30 AM Confirmed Comment: ANIKET Pace SHANNON K, have received the attached patient education materials/instructions and have verbalized understanding: Patient Signature Date Clinican/Nurse Signature Date HERE ARE THE MEDICATION CHANGES THAT OCCURRED DURING YOUR HOSPITAL STAY Medications to Continue with No Changes Other Medications acetaminophen (acetaminophen 325 mg Tab) 2 Tablets By Mouth every 6 hours as needed Pain. Last Dose: Next Dose: albuterol (albuterol 0.083% Inh Teresita 3 mL) 0.083% - 3mL dosing units Inhalation every 4 hours as needed Wheezing. dx. J45.909. Refills: 3. Last Dose: Next Dose: albuterol (Ventolin HFA 90 mcg/inh Aerosol-Adpt) 2 Puffs Inhalation 4 times a day as needed for wheezing. Refills: 5. Last Dose: Next Dose: alendronate (alendronate 70 mg Tab) 1 Tablets By Mouth every 7 days. Last Dose: Next Dose: alprazolam (Xanax 0.5 mg Tab) 1 Tablets By Mouth 3 times a day as needed for anxiety. prn. Last Dose: Next Dose: APAP/butalbital/caffeine (APAP/butalbital/caffeine 325 mg-50 mg-40 mg Tab) 1 Tablets By Mouth every4 hours as needed Headache. Refills: 0. Last Dose: Next Dose: aspirin (aspirin 81 mg Oral EC Tab) 1 Tablets By Mouth every day. Refills: 0. Last Dose: Next Dose: atorvastatin (atorvastatin 80 mg Tab) 1 Tablets By Mouth at bedtime. Refills: 0. Last Dose: Next Dose: benzonatate (Tessalon 100 mg Cap) 2 Capsules By Mouth 3 times a day. Refills: 1. Last Dose: Next Dose: lidocaine topical (lidocaine 5% patch) 2 Patches Topical every day. Last Dose: Next Dose: metoprolol (Toprol XL 50 mg Tab-ER) 1 Tablets By Mouth every day. Refills: 2. Last Dose: Next Dose: omeprazole (omeprazole 40 mg Cap-DR) 1 Capsules By Mouth every day. 30 minutes prior to food or anyother medication.. Refills: 3. Last Dose: Next Dose: potassium chloride (potassium chloride 10 mEq Cap-ER) 1 Capsules By Mouth every day. Refills: 0. Last Dose: Next Dose: quetiapine (Seroquel) 50 Milligram By Mouth at bed (more content not included)...[facility] CenterInterdisciplinary Note - Case Manageron [id number] Note - Case ManagerInterdisciplinary Note - Enrollment Processor Patient awake, alert and oriented up in bed. No family present. Patient able to participate in dc planning. PCP, DME and insurance information confirmed. PLOF independent with all needs, drives. Patient is from home alone. SS consult for depression screen. Patient reports she goes to [facility] counseling services and see Dr. Tawnya Bah, psychiatrist. Declined any additional needs. Friend will transport to home. Patient agreeable to paramedicine service. Declines any further dc needs.[facility] CenterComment on above:Result Comment: Electronically Signed By: Sharon Matos\.br\Date and Time Signed: 06/24/25 09:21 EDTVit B12on [id number] (Vitamin B12) [Mass/Vol]224 pg/vIMsehad10-6629UgnavlMccullough-Hyde Memorial HospitalComment on above:Performed By: #### [id number] #### [facility] [address] [place], [place] [address]AJ Chest Single Viewon [id number] Chest Single ViewExam Date/Time: 06/23/2025 20:24 EDT Reason for Exam: Chest pain Report IMPRESSION: NO EVIDENCE OF ACTIVE CHEST DISEASE. CLINICAL HISTORY: Chest pain. Headache. Weakness. COMPARISON: 06/20/2025. COMMENT: AP portable. The heart is within normal limits in size. The mediastinum is unremarkable. No infiltration nor pleural effusion is evident. There are bilateral posterior stabilization rods associated with the thoracic spine. No significant change is noted when compared to the prior exam. Ordering Provider: Antonio Weinberg FINAL REPORT Dictated: 06/24/2025 10:05 am Meliton Jha M.D. Signed (Electronic Signature): 06/24/2025 10:05 am Signed by: Meliton Jha M.D. Transcribed by: CARISA Technologist: MBSNormalMccullough-Hyde Memorial HospitaleGFRon [id number] mL/min/1.73 m7Ggwiag>=59Mccullough-Hyde Memorial HospitalComment on above:Performed By: #### [id number] #### [facility] [address] [place], [place] [address]GA Draw & Holdon [id number] D&HSample drawn for Blood Ba NormalMccullough-Hyde Memorial HospitalComment on above:Performed By: #### [id number] #### [facility] [address] [place], [place] [address]CNZgv 27-10-0589Gdzds gap [Moles/Vol]12 mmol/LNormal6-16M[facility]-Hyde Memorial HospitalComment on above:Performed By: #### [id number] #### [facility] [address] [place], [place] [address]JEJ/Creat Ratio16 No GkpihAqbxwo80-05WzkevvMccullough-Hyde Memorial HospitalComment on above:Performed By: #### [id number] #### [facility] [address] [place], [place] [address]Sgzzthn [Mass/Vol]9.6 mg/dLNormal8.9-11.1FSelect Medical Specialty Hospital - Boardman, IncComment on above:Performed By: #### [id number] #### [facility] [address] [place], [place] [address]Uwifbfsg [Moles/Vol]103 mmol/YKnltah002-626MmktreMccullough-Hyde Memorial HospitalComment on above:Performed By: #### [id number] #### [facility] [address] [place], [place] [address]FT8 [Moles/Vol]27 mmol/WLqstzb03-36MlmkrmMccullough-Hyde Memorial Hospital Comment on above:Performed By: #### [id number] #### [facility] [address] [place], [place] [address]Rpuvhypfte [Mass/Vol]0.8 mg/dLNormal0.5-1.3FSelect Medical Specialty Hospital - Boardman, IncComment on above:Performed By: #### [id number] #### [facility] [address] [place], [place] [address]Madczfd [Mass/Vol]98 mg/iWDacojt45-755NgakdiMccullough-Hyde Memorial HospitalComment on above:Performed By: #### [id number] #### [facility] [address] [place], [place] [address]Yrwtzghjr [Moles/Vol]3.6 mmol/LNormal3.5-5.3FSelect Medical Specialty Hospital - Board[facility], IncComment on above:Performed By: #### [id number] #### [facility] [address] [place], [place] [address]Jykvcs [Moles/Vol]138 mmol/QQsmowq818-174KfuhvkMccullough-Hyde Memorial HospitalComment on above:Performed By: #### [id number] #### [facility] [address] [place] [address]Zzbv nitrogen [Mass/Vol]13 mg/dLNormal5-21M[facility]ullough-Hyde Memorial HospitalComment on above:Performed By: #### [id number] #### [facility] [address] [place], [place] [address]DLZ w/ Auto Diffon 07-04-7781Asylkxov Absolute0.2 E9/LNormal 0.0-0.2FSelect Medical Specialty Hospital - Board[facility], IncComment on above:Performed By: #### [id number] #### [facility] [address] [place], [place] [address]Zdtgxmygi/100 WBC (Bld)1.6 %Normal0.0-2.0Mccullough-Hyde Memorial HospitalComment on above:Performed By: #### [id number] #### [facility] [address] [place], [place] [address]Kbn Absolute0.1 E9/LNormal0.0-0.5FSelect Medical Specialty Hospital - [facility], Inc Comment on above:Performed By: #### [id number] #### [facility] [address] [place], [place] [address]Wffdypgwype/100 WBC (Bld)1.1 %Normal0.0-8.0Mccullough-Hyde Memorial HospitalComment on above:Performed By: #### [id number] #### [facility] [address] [place], [place] [address]Kppplxqokzy distribution width (RBC) [Ratio]14.3 %High10.9-14.2 [facility]-Hyde Memorial HospitalComment on above:Performed By: #### [id number] #### [facility] [address] [place] [address]Jwnlzozmej (Bld) [Volume fraction]41.7 %Ewbuzx14.0-46.0M[facility]-Hyde Memorial HospitalComment on above:Performed By: #### [id number] #### [facility] [address] [place] [address]Oehjbljqaf (Bld) [Mass/Vol]14.5 g/oUCnpvms39.0-16.0M[facility]-Hyde Memorial HospitalComment on above:Performed By: #### [id number] #### [facility] [address] [place] [address]Pleiu Absolute4.6 E9/LHigh1.0-4.0[facility] Comment on above:Performed By: #### [id number] #### [facility] [address] [place], [place] [address]Rdxfpgcuuue/100 WBC (Bld)48.5 %Copetd75.0-50.0M[facility]-Hyde Memorial HospitalComment on above:Performed By: #### [id number] #### [facility] [address] [place], [place] [address]NTC (RBC) [Entitic mass]36.5 iuZfvq01.0-34.0M[facility]-Hy[facility] Memorial HospitalComment on above:Performed By: #### [id number] #### [facility] [address] [place], [place] [address]VTYF (RBC) [Mass/Vol]34.8 g/fHHpduuw08.4-36.0M[facility] Memorial HospitalComment on above:Performed By: #### [id number] #### [facility] [address] [place], [place] [address]CIW (RBC) [Entitic vol]104.9 pNCkgw70.0-100.0M[facility]-Hyde Memorial HospitalComment on above:Performed By: #### [id number] #### [facility] [address] [place], [place] [address]Oxfa Absolute0.6 E9/LNormal0.2-1.0[facility] Comment on above:Performed By: #### [id number] #### [facility] [address] [place] [address]Mkxlfccvb/100 WBC (Bld)5.8 %Normal4.0-14.0[facility]Hy[facility] Memorial HospitalComment on above:Performed By: #### [id number] #### [facility] [address] [place] [address]Jxqpwk Absolute4.1 E9/LNormal2.0-7.5FSelect Medical Specialty Hospital - [facility], Inc Comment on above:Performed By: #### [id number] #### [facility] [address] [place], [place] [address]Ahywsq Auto43.0 %Nptefo81.0-75.0[facility] Comment on above:Performed By: #### [id number] #### [facility] [address] [place], [place] [address]Pitqyeeu986.0 E9/ZBjmjtb507.0-500.0[facility] Comment on above:Performed By: #### [id number] #### [facility] [address] [place], [place] [address]Uyuiknpl mean volume (Bld) [Entitic vol]7.2 fLNormal6.4-10.8 [facility] Memorial HospitalComment on above:Performed By: #### [id number] #### [facility] [address] [place] [address]OBM6.0 E12/LLow4.3-5.9M[facility] Memorial HospitalComment on above:Performed By: #### [id number] #### [facility] [address] [place] [address]HQB0.6 E9/LNormal4.0-11.0M[facility]-Hyde Memorial HospitalComment on above:Performed By: #### [id number] #### [facility] [address] [place] [address]Iaqmejxmn Glucose POCon 70-76-0407Ttfdtpo [Mass/Vol]94 mg/dL Joqujp54-96IhoheuMccullough-Hyde Memorial HospitalComment on above:Performed By: #### [id number] #### [facility] [address] [place] [address]Xhuxwzj [Mass/Vol]101 mg/mLHlif60-23TmlecrMccullough-Hyde Memorial Hospital Comment on above:Result Comment: Notified RN/MDPerformed By: #### [id number] #### [facility] [address] [place] [address] Clinical Summaryon [id number] Clinical SummaryED Clinical Summary [address] [address] ED Clinical Summary Person Information Name: NATHANIEL MARCIAL [facility] Age: 49 Years : 1975 Sex: Female Language: Barbadian PCP: German Sheehan DO Marital Status: Phone: [phone] Visit Id: Visit Reason: Anxiety; Muscle weakness; Potential stroke; STROKE SYMPTOMS Speciality: Acuity: 2 Enc Type: Observation Med Service: Medical Arrival: 06/23/2025 19:45:01 Discharge: LOS: 000 02:46 Checkin: 06/23/2025 19:45:01 Checkout: 06/23/2025 22:31:22 Dispo Type: Admitted as IP to this [facility] EVENTS: Event Name Event Status Request Date/Time Start Date/Time Complete Date/Time Arrive Complete 06/23/2025 19:45:01 06/23/2025 19:45:01 06/23/2025 19:45:01 Document Home Meds Request 06/23/2025 19:45:01 Triage Complete 06/23/2025 19:45:01 06/23/2025 19:50:40 06/23/2025 19:50:40 Bed Assign Complete 06/23/2025 19:45:25 06/23/2025 19:45:25 06/23/2025 19:45:25 Dr Exam Complete 06/23/2025 19:45:25 06/23/2025 19:45:58 06/23/2025 19:45:58 RN Exam Complete 06/23/2025 19:45:25 06/23/2025 20:30:59 06/23/2025 20:30:59 Registration Complete 06/23/2025 19:45:58 06/23/2025 20:38:21 06/23/2025 20:38:21 EKG Complete 06/23/2025 19:48:48 06/23/2025 20:15:33 Pending Labs Complete 06/23/2025 19:50:23 06/23/2025 19:50:23 06/23/2025 19:50:24 Isolation Screening Request 06/23/2025 19:50:41 NPO Request 06/23/2025 19:53:10 Pending Labs Inlab 06/23/2025 19:53:10 Blood Collect Request 06/23/2025 19:53:10 Lab Complete 06/23/2025 19:53:10 06/23/2025 20:47:15 Patient Care Request 06/23/2025 19:53:10 CT Complete 06/23/2025 19:53:10 06/23/2025 19:57:26 06/23/2025 20:00:04 X-Ray Complete 06/23/2025 19:53:10 06/23/2025 19:57:28 06/23/2025 20:24:49 RT Request 06/23/2025 19:53:10 Pending Labs Complete 06/23/2025 20:24:33 06/23/2025 20:24:33 06/23/2025 20:47:15 Lab Complete 06/23/2025 20:24:33 06/23/2025 20:24:33 06/23/2025 20:47:15 Wet Read Request 06/23/2025 20:24:49 RR Stroke Request 06/23/2025 20:30:59 Pending Labs Complete 06/23/2025 20:33:39 06/23/2025 20:33:39 06/23/2025 20:47:24 Reg Complete Request 06/23/2025 20:38:21 Reg Bed Request Complete 06/23/2025 20:38:21 06/23/2025 20:38:21 06/23/2025 20:38:21 Pending Labs Inlab 06/23/2025 20:47:24 06/23/2025 20:47:24 Lab Inlab 06/23/2025 20:47:24 06/23/2025 20:47:24 Consult Request 06/23/2025 21:01:55 Hospitalist Consult Request 06/23/2025 21:01:55 Observation Request 06/23/2025 21:23:37 Patient Care Request 06/23/2025 21:23:39 Patient Care Request 06/23/2025 21:23:39 Medicare Form Complete 06/23/2025 21:23:40 06/23/2025 21:52:40 Patient Care Request 06/23/2025 21:23:40 Patient Care Request 06/23/2025 21:23:40 Meds Admin Complete 06/23/2025 21:37:30 06/23/2025 21:45:46 Meds Admin Complete 06/23/2025 21:38:09 06/23/2025 21:45:45 ADDRESS: [address] [place] [address] DR RACHELE Doran [place] [id number] [facility] DOC NOTES: MEDICAL INFORMATION: Prescriptions Given: Medications to Continue with No Changes Other Medications acetaminophen (acetaminophen 325 mg Tab) 2 Tablets By Mouth every 6 hours as needed Pain. albuterol (albuterol 0.083% Inh Teresita 3 mL) 0.083% - 3mL dosing units Inhalation every 4 hours as needed Wheezing. dx. J45.909. Refills: 3. albuterol (Ventolin HFA 90 mcg/inh Aerosol-Adpt) 2 Puffs Inhalation 4 times a day as needed for wheezing. Refills: 5. alendronate (alendronate 70 mg Tab) 1 Tablets By Mouth every 7 days. alprazolam (Xanax 0.5 mg Tab) 1 Tablets By Mouth 3 times a day as needed for anxiety. prn. APAP/butalbital/caffeine (APAP/butalbital/caffeine 325 mg-50 mg-40 mg Tab) 1 Tablets By Mouth every4 hours as needed Headache. Refills: 0. aspirin (aspirin 81 mg Oral EC Tab) 1 Tablets By Mouth every day. Refills: 0. atorvastatin (atorvastatin 80 mg Tab) 1 Tablets By Mouth at bedtime. Refills: 0. benzonatate (Tessalon 100 mg Cap) 2 Capsules By Mouth 3 times a day. Refills: 1. metoprolol (Toprol XL 50 mg Tab-ER) 1 Tablets By Mouth every day. Refills: 2. omeprazole (omeprazole 40 mg Cap-DR) 1 Capsules By Mouth every day. 30 minutes prior to food or anyother medication.. Refills: 3. potassium chloride (potassium chloride 10 mEq Cap-ER) 1 Capsules By Mouth every day. Refills: 0. quetiapine (Seroquel) 50 Milligram By Mouth at bedtime. PATIENT EDUCATION INFORMATION: Instructions: Follow up: DIAGNOSIS: Stroke-like symptomsLidyarmalAngel Phoenix Medical CenterED Note-Physicianon [id number] Note-PhysicianED Note-Physician Basic Information Time Seen: Antonio Weinberg DO 06/23/2025 19:45 Chief Complaint pt arrives for c/o TIA's. pt states she is having right sided weakness. pt last known well is 1630 History of Present Illness HPI: Patient is a 49-year-old female with past medical history of asthma, GERD, anxiety, hyperlipidemia, hypertension, tobacco use who presents to the ED from home for strokelike symptoms. Patient states that she was recently admitted for the same symptoms as they were concerned for TIA at the time. She states that her symptoms resolved and she was subsequently discharged. She reports that yesterday she had a very short-lived transient episode of the same symptoms but did not present because they resolved. Tonight she started having the same symptoms at 1630 and they have been continuing since that time. She reports right upper and lower extremity weakness as well as numbness in her right arm. She also feels like she is tremulous and feels that she is having to think harder about her words than normal. She denies any vision changes. ROS: Pertinent review of systems conducted and is negative except as noted above. Physical exam: General: nontoxic appearing and in no distress HEENT: Mucous membranes moist Neuro: awake and alert. Cranial nerves II through XII are intact. NIH stroke scale of 1 for slight decrease in sensation in the right upper extremity. Neck: supple, trachea midline Card: Heart regular rate and rhythm no murmur Resp: Lungs clear to auscultation no wheeze or rhonchi Abd: Soft and nondistended. No tenderness to palpation with no rebound or guarding. Ext: No gross deformity or edema Physical Exam Vitals & Measurements T: 36.3 ???C(Tympanic) HR: 95(Peripheral) RR: 19 BP: 169/98 SpO2: 100% HT: 149 cm WT: 62.2 kg BMI: 28.02 Procedure Critical Care Time: 31 minutes billable from other separate procedures. Management of stroke symptoms. Physical exam as well as reexamination, reviewing imaging and labs, and time spent at bedside aswell as speaking with admitting provider. Medical Decision Making MEDICAL DECISION MAKING Number and Complexity of Problems Differential Diagnosis: [] [facility] Data External documents reviewed: N/A My EKG interpretation: Noted in chart if applicable My CT interpretation: N/A My X-ray interpretation: Noted in chart if applicable My Ultrasound interpretation: N/A Decision rules/scores evaluated: N/A Discussed with: N/A Treatment and Disposition ED Course: Patient is nontoxic-appearing and in no distress. NIH stroke scale performed on arrival is 1. I do not feel she is a good candidate for thrombolysis as her symptoms are minor and not debilitating. She has also had multiple episodes of these symptoms over the past several days. We will obtain a noncontrast CT of the brain in addition to chest x-ray and blood work. I do not feel a CT angiogram would be helpful as she had one 3 days ago which was negative for any acute abnormality. non-Contrast CT of the head shows no acute process. Chest x-ray shows no significant change from previous Lab work as noted On my reevaluation the patient reports her symptoms are the same. Patient discussed with the hospitalist on-call who agreed to admit the patient for further management. Shared decision making: As above Code status: N/A Assessment/Plan Stroke-like symptoms (R29.90: Unspecified symptoms and signs involving the nervous system) Orders: Basic Metabolic Panel BB Draw & Hold Cardiac Monitoring CBC w/ Auto Diff Communication Order Communication Order Continuous Pulse Oximetry CT Head or Brain w/o Contrast Dysphagia Screen ED Physician consult Hospitalist for continued care eGFR Neurological Assessment NPO Diet Oxygen Protocol PT & PTT Rapid Response Form Routine Capillary Glucose POC Stroke Quality Measures Troponin 0 Hr. UA with Cult Rflx UA with Cult Rflx SP Urine Culture XR Chest Single View Disposition Plan Discharge Prescription List Prescriptions albuterol 0.083% Inh Teresita 3 mL, 0.083% - 3mL dosing units, Inhalation, q4hr, PRN, 3 refills Follow-up No qualifying data available Problem List/Past Medical History Ongoing Asthma BMI 26.0-26.9,adult Dextroscoliosis of thoracic spine Generalized anxiety disorder with panic attacks GERD (gastroesophageal reflux disease) Hyperlipidemia Hypertension Hypertension Osteoarthritis of right shoulder Over weight Panic disorder [episodic paroxysmal anxiety] Smoker Tobacco abuse Historical Endometriosis IBS - Irritable bowel syndrome Procedure/Surgical History Appendectomy, x2, Colonoscopy, Hysterectomy, Repair of recurrent inguinal hernia, spine surgery for scoliosis. Medications Inpatient No active inpatient medications Home acetaminophen 325 mg Tab, 650 mg= 2 tab(s), Oral, q6hr, PRN albuterol 0.083% Inh Teresita 3 mL, 0.083% - 3mL dosing units, Inhalation, q4hr, PRN, (more content not included)...[facility] CenterComment on above: Result Comment: Electronically Signed By: Antonio Weinberg DO\.br\Date and Time Signed: 06/23/25 21:24 EDTED Patient Education Noteon [id number] Patient Education NoteED [facility]NoM[facility] Patient Summaryon [id number] Patient SummaryED Patient Summary [place] [id number] Patient Discharge Instructions Person Information Name: NATHANIEL MARCIAL Age: 49 Years Arrival Date: 06/23/2025 19:45:01 Discharge Diagnosis: Stroke-like symptoms Primary Care Physician: German Sheehan DO Provider Information Primary Provider: Antonio Weinberg DO [employer] Technician:None The exam and treatment you received in the Emergency Department were for an urgent problem and are not intended as complete care. It is important that you follow up with a doctor, nurse practitioner,or physician???s child care assistant for ongoing care. If your symptoms become worse or you do not improve asexpected and you are unable to reach your usual health care provider, you should return to the Emergency Department. We are available 24 hours a day. NATHANIEL MARCIAL has been given the following list of patient education materials, prescriptions andfollow-up instructions: Follow-up Instructions: In the event that this physician does not participate in your insurance network, please consult with your insurance company to find a nearby participating provider. Patient Education Materials: A MESSAGE TO ALL PATIENTS REGARDING OPIOIDS PRESCRIPTION OPIOIDS: WHAT YOU NEED TO KNOW Prescription opioids can be used to help relieve jpsdrgyq-wk-ehmvlv pain and are often prescribed following a [...] guidance from the Food and Drug Administration (www.fda.gov/Drugs/ResourcesForYou). ??? Visit www.cdc.gov/drugoverdose to learn about the risks of opioids abuse and overdose. ??? If you believe you may be struggling with addiction, tell your health infant childcare provider and askfor guidance or call [facility]???S National Helpline at 4-023-587-AQWX. v Source: US Department of Health and Human Services/Center for Disease Control & Prevention (more content not included)...NormalMccullough-Hyde Memorial HospitalPT & PTTon [id number] Coag (PPP) [Relative time]0.91 {INR}Invalid Interpretation [facility] HospitalComment on above:Result Comment: INR results are specifically intended to assess patients stabilized on long-term Anticoagulation therapy suggested INR???s ???Less Intensive Anticoagulation??? 2.0 ??? 3.0 Conventional Range 3.0 ??? 4.5Performed By: #### [id number] #### [facility] [address] [place], [place] [address]IK64.2 second(s)Normal9.4-12.5FSelect Medical Specialty Hospital [facility], Inc Comment on above:Result Comment: 15 days - 4 weeks 1 - 5 months 6 -11 months 1-5 years 6-10 years 11 -17 years Mean: 11.2 (9.5-12.6) Mean: 11.0 (9.7-12.8) Mean: 11.0 (9.8-13.0) Mean: 11.3 (9.9-13.4) Mean: 11.7 (10.0-14.6) Mean: 11.8 (10.0 - 14.1) Pediatric Reference ranges were obtained from a study by Shaun Beltran et al. prepared from 1437 samples obtained at 7 different centers using the same coagulation reagent and instrumentation as [facility]. Currently there are no coagulation studies available worldwide for children to 14 days, andno normal ranges.Performed By: #### [id number] #### [facility] [address] [place], [place] [address]OQX59.4 second(s)Ukhpxq54.1-36.5FSelect Medical Specialty Hospital [facility], Inc Comment on above:Result Comment: Parameter 15 days - 4 weeks 1 - [...] the same coagulation reagent and instrumentation as [facility]. Currently there are no coagulation studies available worldwide for children to 14 days, andno normal ranges. Heparin therapeutic range (represented by Anti-Factor Xa activity of 0.2 - 0.4 U/mL) corresponds to PTT of 56.6 - 109.0 sec.Performed By: #### [id number] #### [facility] [address] [place], [place] [address]OdrvjrfogwHayward Area Memorial Hospital - [facility] [id number] Hospital Case Information Case Priority: None Programs: Behavioral Health CCM Transition Care Management Chronic Care/Condition Management Referral Source: System Identified Referral Reason: System identified Case Type: Transition Care Management Risk Score: 1.11 Case Status: Enrolled (June 23, 2025) Date Assigned: June 23, 2025 Assigned By: Jacinda Tomlinson RN Date Enrolled: June 23, 2025 Assigned Primary Personnel: Jacinda Tomlinson RN Assigned Secondary Personnel: -- Case Physician: German Sheehan DO Problems Ongoing Asthma BMI 26.0-26.9,adult Dextroscoliosis of thoracic spine Generalized anxiety disorder with panic attacks GERD (gastroesophageal reflux disease) Hyperlipidemia Hypertension Hypertension Osteoarthritis of right shoulder Over weight Panic disorder [episodic paroxysmal anxiety] Smoker Tobacco abuse Historical Endometriosis IBS - Irritable bowel syndrome Procedure/Surgical History Appendectomy, x2, Colonoscopy, Hysterectomy, Repair of recurrent inguinal hernia, spine surgery for scoliosis. Home Medications acetaminophen 325 mg Tab, 650 mg= 2 tab(s), Oral, q6hr, PRN albuterol 0.083% Inh Teresita 3 mL, 0.083% - 3mL dosing units, Inhalation, q4hr, PRN, 3 refills alendronate 70 mg Tab, 70 mg= 1 tab(s), Oral, q7day APAP/butalbital/caffeine 325 mg-50 mg-40 mg Tab, 1 tab(s), Oral, q4hr, PRN aspirin 81 mg Oral EC Tab, 81 mg= 1 tab(s), Oral, Daily atorvastatin 80 mg Tab, 80 mg= 1 tab(s), Oral, Bedtime, Not taking omeprazole 40 mg Cap-DR, 40 mg= 1 cap(s), Oral, Daily, 3 refills potassium chloride 10 mEq Cap-ER, 10 mEq= 1 cap(s), Oral, Daily Seroquel, 50 mg, Oral, Bedtime Tessalon 100 mg Cap, 200 mg= 2 cap(s), Oral, TID, 1 refills Toprol XL 50 mg Tab-ER, 50 mg= 1 tab(s), Oral, Daily, 2 refills Ventolin HFA 90 mcg/inh Aerosol-Adpt, 2 puff(s), Inhalation, QID, PRN, 5 refills, Not taking Xanax 0.5 mg Tab, 0.5 mg= 1 tab(s), Oral, TID, PRN Allergies hydroCHLOROthiazide (Hyponatremia) LaMICtal (Unknown) Tape (rash) bacitracin clindamycin (Unknown) vancomycin Social History Alcohol - Denies Alcohol Use, 01/01/2022 Current, Wine, 3-5 times per week, Previous treatment: None. Household alcohol concerns: No., 05/23/2025 Substance Abuse - High Risk, 01/01/2022 Current, Marijuana, Daily, Previous treatment: None. Household substance abuse concerns: No., 05/23/2025 Tobacco - High Risk, 01/01/2022 10 or more cigarettes (1/2 pack or more)/day in last 30 days Tobacco Use:. Never Smokeless Tobacco Use:. Cigarettes, 10 per day. 37 year(s). Total pack years: 19. Started age 12.0 Years. Previous treatment: None. Ready to change: No. Household tobacco concerns: No. Yes, 06/13/2025 Screenings and Assessments 06/23/25 15:00:00 Result Name Value Comment Phone Call Monitoring Consent Agreed to continue call Phone Verification Patient Information Full name, street address and date of verified CM Program Enrollment Provides verbal consent for enrollment Goals and Interventions Care Plan Progress Note Admit Date: 06/20/2025 Date of Discharge: 06/21/2025 Follow-up appointment scheduled? Yes - Sapna Shepard 06/25/2025 at 0820 Did you understand your discharge instructions? Yes Are you able to follow them? Yes Did you receive new medications? Yes - APAP/butalbital/caffeine 325 mg-50 mg-40 mg Tab, 1 tab(s), Oral, q4hr, PRN aspirin 81 mg Oral EC Tab, 81 mg= 1 tab(s), Oral, Daily atorvastatin 80 mg Tab, 80 mg= 1 tab(s), Oral, Bedtime, Not taking potassium chloride 10 mEq Cap-ER, 10 mEq= 1 cap(s), Oral, Daily Have you filled the Rx's? Yes Are you taking them as prescribed? Yes Are you having difficulty eating or swallowing your pills? No Are you having any stomach upset, diarrhea or constipation? No Are you having any pain? No Do you have everything you need at home to care for yourself? Yes Do you have Home Health? No Called patient for initial Transitional Care Management Program. Reviewed discharge instructions and diagnosis of stroke-like symptoms, hypokalemia, hyponatremia, headache, hypertension, hyperlipidemia, tobacco abuse, obstructive sleep apnea, asthma, ptsd, bipolar disorder, chronic gerd, encounter of dvt prophylaxis and rib fracture. Medications reconciled with patient, ehr and discharge instructions. Reviewed new medications listed above. Reviewed medication changes - Ventolin hfa 90 mcg 2 puffs q 4 hours changed to albuterol 0.083% 3mL q 4 hours prn. Reviewed medications patient was instructed to stop taking - amoxicillin, dicyclomine and hctz. Patient reports that she has been better. Patient is very afraid of her current diagnosis and was very tearful at start of call. She reports that her right arm is still has slow reflexes. She is still experiencing some dizziness. Her vision is blurred mainly in her right eye. Her legs are a little s (more content not included)...NormalMccullough-Hyde Memorial HospitalTroponin 0 Hr.on 47-92-3976Rlvigvnw HS<2.95Qtl63.10-27.10M[facility]ullough-Hyde Memorial HospitalComment on above:Result Comment: The 95% CI (Confidence Interval) PPV (Positive Predictive Value) for myocardial infarction in females is 38 pg/mL, in males 51 pg/mL. The results should be used in conjunction with clinical conditions of myocardial infarction. (Access High Sensitivity Troponin I Instructions For Use, Yousuf Jamila, April 2018)Performed By: #### [id number] #### [facility] [address] [place], [place] [address]HM with Cult Rflxon 88-91-2891Siolt (U)ColorlessAbnormalYellow [facility] Memorial HospitalComment on above:Order Comment: Added by Discern ExpertResult Comment: Microscopic readings are only performed on those samples that meet specific criteria set forth by [facility]. Performed By: #### [id number] #### [facility] [address] [place], [place] [address]Bbxvlis (U) [Mass/Vol]NegativeNormalNegativeMccullough-Hyde Memorial HospitalComment on above:Order Comment: Added by David ExpertPerformed By: #### [id number] #### [facility] [address] [place], [place] [address]Xexkxiy Ql (U)NegativeNormalNegativeMccullough-Hyde [facility] Hospital Comment on above:Order Comment: Added by David ExpertPerformed By: #### [id number] #### [facility] [address] [place], [place] [address]WD BloodTraceAbnormalNegativeMccullough-Hyde Memorial HospitalComment on above:Order Comment: Added by David ExpertPerformed By: #### [id number] #### [facility] [address] [place], [place] [address]KX ClarityClearNormalClearMccullough-Hyde Memorial HospitalComment on above:Order Comment: Added by David ExpertPerformed By: #### [id number] #### [facility] [address] [place], [place] [address]KM Leuk Est75 Zari/uLAbnormalNegativeMccullough-Hyde Memorial Hospital Comment on above:Order Comment: Added by David ExpertPerformed By: #### [id number] #### [facility] [address] [place], [place] [address]MX MucousNegativeNormalNegOhioHealth Grady Memorial Hospital Comment on above:Order Comment: Added by David ExpertPerformed By: #### [id number] #### [facility] [address] [place], [place] [address]IM NitriteNegativeNormalNegativeMccullough-Hyde Memorial Hospital Comment on above:Order Comment: Added by Discern ExpertPerformed By: #### [id number] #### [facility] [address] [place], [place] [address]EL pH7.0Invalid Interpretation Code5.0-9.0[facility] Memorial HospitalComment on above:Order Comment: Added by Discern ExpertPerformed By: #### [id number] #### [facility] [address] [place], [place] [address]PW ProteinNegativeNormalNegativeMccullough-Hyde [facility] Hospital Comment on above:Order Comment: Added by David ExpertPerformed By: #### [id number] #### [facility] [address] [place] [address]YW OVF6-1Atrnoa5-7RtlbhjSelect Medical Specialty Hospital [facility], IncComment on above: Order Comment: Added by David ExpertPerformed By: #### [id number] #### [facility] [address] [place] [address]CM Spec Grav1.006Invalid Interpretation Code1.005-1.030M[facility]-Hyde Memorial HospitalComment on above:Order Comment: Added by Discern Expert Performed By: #### [id number] #### [facility] [address] [place] [address]KB Squam Epithelial0-2Invalid Interpretation CodeMccullough-Hyde Memorial HospitalComment on above:Order Comment: Added by David ExpertPerformed By: #### [id number] #### [facility] [address] [place], [place] [address]NC UrobilinogenNegativeNormalNegativeMccullough-Hyde Memorial HospitalComment on above:Order Comment: Added by David ExpertPerformed By: #### [id number] #### [facility] [address] [place] [address] QSB1-84Kvtxaqbu6-7ZburfiSelect Medical Specialty Hospital [facility], IncComment on above:Order Comment: Added by David ExpertPerformed By: #### [id number] #### [facility] [address] [place], [place] [address]Tfsaeaedcqan (U) [Mass/Vol]NegativeNormalNegativeMccullough-Hyde Memorial HospitalComment on above:Order Comment: Added by Discern ExpertPerformed By: #### [id number] #### [facility] [address] [place] [address]ZG with Cult Rflx SPon 34-00-6463RM Spec DescClean CatchNormal [facility] HospitalComment on above:Performed By: #### [id number] #### [facility] [address] [place] [address]eKWFby 57-48-9771hLXK56 mL/min/1.73 u5Egithf>=59M[facility]Hyde Memorial HospitalComment on above:Performed By: #### [id number] #### [facility] [address] [place] [address]Nfxubsdjos 01-57-0756Vxxjlynm9.0 microgram/dLInvalid Interpretation Code6.2-19.4FSelect Medical Specialty Hospital - [facility], IncComment on above:Result Comment: Please Note: The reference interval and flagging for this test is for an AM collection. If this is a PM collection please use: Cortisol PM: 2.3-11.9 Performed at: [facility] [address] [id number] PhD Carolee PaynePerformed By: #### [id number] #### [facility] [address] [place] [address]PJIco 45-99-1639Meoag gap [Moles/Vol]10 mmol/LNormal6-16[facility] HospitalComment on above:Performed By: #### [id number] #### [facility] [address] [place] [address]KTV/Creat Ratio15 No JvbhvAqnmjs33-37KufcdkMccullough-Hyde Memorial HospitalComment on above:Performed By: #### [id number] #### [facility] [address] [place] [address]Wcxpudp [Mass/Vol]9.5 mg/dLNormal8.9-11.1FSelect Medical Specialty Hospital - Board[facility], IncComment on above:Performed By: #### [id number] #### [facility] [address] [place], [place] [address]Nvzdafzx [Moles/Vol]99 mmol/ZLju885-689DhrizzMccullough-Hyde Memorial HospitalComment on above:Performed By: #### [id number] #### [facility] [address] [place], [place] [address]MC1 [Moles/Vol]28 mmol/ASihsfw25-51YqvkmjMccullough-Hyde Memorial Hospital Comment on above:Performed By: #### [id number] #### [facility] [address] [place], [place] [address]Ayjhefnjpo [Mass/Vol]0.8 mg/dLNormal0.5-1.3FSelect Medical Specialty Hospital - [facility], IncComment on above:Performed By: #### [id number] #### [facility] [address] [place], [place] [address]Odkxsik [Mass/Vol]109 mg/hKXimffd68-350FloduiMccullough-Hyde Memorial HospitalComment on above:Performed By: #### [id number] #### [facility] [address] [place], [place] [address]Xgjbsiyvj [Moles/Vol]4.4 mmol/LNormal3.5-5.3FSelect Medical Specialty Hospital - Board[facility], IncComment on above:Performed By: #### [id number] #### [facility] [address] [place], [place] [address]Evhegz [Moles/Vol]133 mmol/QBnq239-927XqrnevMccullough-Hyde Memorial HospitalComment on above:Performed By: #### [id number] #### [facility] [address] [place], [place] [address]Qnjj nitrogen [Mass/Vol]12 mg/dLNormal5-21[facility] Memorial HospitalComment on above:Performed By: #### [id number] #### [facility] [address] [place], [place] [address]Xgvmp gap [Moles/Vol]11 mmol/LNormal6-16[facility] Memorial HospitalComment on above:Performed By: #### [id number] #### [facility] [address] [place], [place] [address]WCO/Creat Ratio11 No HusqoMkcezv85-32RfcvahMccullough-Hyde Memorial HospitalComment on above:Performed By: #### [id number] #### [facility] [address] [place], [place] [address]Wtzjsry [Mass/Vol]9.0 mg/dLNormal8.9-11.1FSelect Medical Specialty Hospital - [facility], IncComment on above:Performed By: #### [id number] #### [facility] [address] [place], [place] [address]Hzekporq [Moles/Vol]93 mmol/PSbx783-196IzxvdmMccullough-Hyde Memorial HospitalComment on above:Performed By: #### [id number] #### [facility] [address] [place], [place] [address]MG5 [Moles/Vol]28 mmol/LKfztyp01-96IkgeqrMccullough-Hyde Memorial Hospital Comment on above:Performed By: #### [id number] #### [facility] [address] [place], [place] [address]Rfxsrgzfgd [Mass/Vol]0.9 mg/dLNormal0.5-1.3FSelect Medical Specialty Hospital - [facility], IncComment on above:Performed By: #### [id number] #### [facility] [address] [place], [place] [address]Ndjmlfs [Mass/Vol]91 mg/xHUqvbat19-782EuwempMccullough-Hyde Memorial HospitalComment on above:Performed By: #### [id number] #### [facility] [address] [place], [place] [address]Afqcvfugi [Moles/Vol]3.2 mmol/LLow3.5-5.3FSelect Medical Specialty Hospital - [facility], IncComment on above:Performed By: #### [id number] #### [facility] [address] [place], [place] [address]Putuyl [Moles/Vol]129 mmol/KRgz429-280XvqpggMccullough-Hyde Memorial HospitalComment on above:Performed By: #### [id number] #### [facility] [address] [place], [place] [address]Esff nitrogen [Mass/Vol]10 mg/dLNormal5-21[facility] Memorial HospitalComment on above:Performed By: #### [id number] #### [facility] [address] [place], [place] [address]HPWan 05-61-7974RYN9.7 mg/dLNormal<=1.9[facility] Memorial HospitalComment on above:Performed By: #### [id number] #### [facility] [address] [place], [place] [address]AqvS3xeh 82-55-2091IjL2v (Bld) [Mass fraction]5.1 %Normal<=5.9 [facility] Memorial HospitalComment on above:Performed By: #### [id number] #### [facility] [address] [place], [place] [address]Ytsbapmqf Patient Summaryon [id number] Patient Summary Inpatient Patient Summary NATHANIEL MARCIAL :1975 Visit Date:06/20/2025 Inpatient Discharge Instructions Your Care Team Admitting Physician - Noel MORALES DO Consulting Physician - Wicho Rivas MD Reason for Your Visit Right arm numbess/tingling 1515 Your Diagnosis Stroke-like symptoms, Stroke-like symptoms Hypokalemia Hyponatremia Headache Hypertension Hyperlipidemia Tobacco abuse Obstructive sleep apnea Asthma PTSD (post-traumatic stress disorder) Bipolar disorder Chronic GERD Encounter for deep vein thrombosis (DVT) prophylaxis Paresthesia Potential stroke Rib fracture Weakness or fatigue Tests Performed BMP -- Results Pending -- Cortisol -- Results Pending -- CT Head or Brain w/o Contrast CTA Head CTA Neck XR Chest Single View Please visit your patient portal for your results or contact your primary care physician. This Is Your Medications List APAP/butalbital/caffeine (APAP/butalbital/caffeine 325 mg-50 mg-40 mg Tab) acetaminophen (acetaminophen 325 mg Tab) albuterol (Ventolin HFA 90 mcg/inh Aerosol-Adpt) albuterol (albuterol 0.083% Inh Teresita 3 mL) alendronate (alendronate 70 mg Tab) alprazolam (Xanax 0.5 mg Tab) aspirin (aspirin 81 mg Oral EC Tab) atorvastatin (atorvastatin 80 mg Tab) benzonatate (Tessalon 100 mg Cap) metoprolol (Toprol XL 50 mg Tab-ER) omeprazole (omeprazole 40 mg Cap-DR) potassium chloride (potassium chloride 10 mEq Cap-ER) quetiapine (Seroquel) [Image Removed: STOP]Stop taking these medications amoxicillin dicyclomine (dicyclomine 20 mg Tab) hydrochlorothiazide (hydrochlorothiazide 25 mg Tab) Procedure History Appendectomy, x2, Colonoscopy, Hysterectomy, Repair of recurrent inguinal hernia, spine surgery for scoliosis. Discharge Vitals Temperature (Oral) 36.8 ???C Heart Rate (Monitored) 90 Respiratory Rate 18 Blood Pressure 138/91 Height 149.86 cm Weight 59.1 kg BMI 26.32 What to do next Instructions From Your Doctor Event Name Event Result Discharge Activity Activity as tolerated Discharge Diet(s) Regular Pending Diagnostic Test Results Other: Echocardiogram is ordered ([facility] Scheduling to call you for scheduling) Brain MRI order is in- will give printed order for facility with proper Nancy threshold Discharge Instructions Follow up closely with PCP, Neurology Previously Scheduled Follow-Up Appointments Monday 2:15 PM EDT With: Where: [facility] Monday 2:30 PM EDT With: Where: [facility] Monday 11:20 AM EDT With: German Sheehan DO Where: [facility] [address] [place] [address]- Monday2025 9:30 AM EDT With: Where: [place] [address] [place] [address]- New Follow Up Appointments after Discharge Follow Up with Lab, [facility] When: Within 1 week Comments: Get a BMP (blood work) to recheck potassium/sodium levels in 1 week- can be done with Dr Sheehan, or at [facility] - go to ER registration for blood work, do not need to be fasting Where: Follow Up with German Sheehan DO, [facility] When: Within 1 week Comments: STOP HCTz- recommend repeat BMP (labs to recheck K/Na) in 1 week Where: [address] [place] [address]- Follow Up with neurology When: Within 2 to 4 weeks Comments: call [phone] to scheduled an appt Where: Medications What How Much When Why Instructions Next Dose New acetaminophen (acetaminophen 325 mg Tab) 2 Tablets By Mouth Every 6 hours as needed for Pain asneeded New APAP/ butalbital/ caffeine (APAP/ butalbital/ caffeine 325 mg-50 mg-40 mg Tab) 1 Tablets By Mouth Every 4 hours as needed for Headache Pickup at [facility]/pharmacy #[id number] as needed New aspirin (aspirin 81 mg Oral EC Tab) 1 Tablets By Mouth Every day New med for NM/ Stroke prevention Pickup at [facility]/pharmacy #[id number] 06/22 New atorvastatin (atorvastatin 80 mg Tab) 1 Tablets By Mouth At bedtime New cholesterol lowering medication; Stroke/ NM prevention Pickup at [facility]/pharmacy #[id number] 06/22 New potassium chloride (potassium chloride 10 mEq Cap-ER) 1 Capsules By Mouth Every day Pickup at [facility]/pharmacy #[id number] 06/22 Unchanged albuterol (albuterol 0.083% Inh Teresita 3 mL) 0.083% - 3mL dosing units Inhalation Every 4 hours as needed for Wheezing as needed Unchanged albuterol (Ventolin HFA 90 mcg/ inh Aerosol-Adpt) 2 Puffs Inhalation 4 times a day as needed for for wheezing as needed Unchanged alendronate (alendronate 70 mg Tab) 1 Tablets By Mouth Every 7 days continue Unchanged alprazolam (Xanax 0.5 mg Tab) 1 Tablets By Mouth 3 times a day as needed for for anxiety prn as needed Unchanged benzonatate (Tessalon 100 mg Cap) 2 Capsules By Mouth 3 times a day Rib fracture continue Unchanged metoprolol (Toprol XL 50 mg Tab-ER) 1 Tablets By Mout (more content not included)...NormalMccullough-Hyde Memorial HospitalInterdisciplinary Note - OTon 28-91-8987Shbagcfiieaeybwgv Note - OTInterdisciplinary Note - OT OT [facility] six clicks score = no further OT needs. Pt is Ind w/ basic adls/transfers in room. No episodes of dizziness or sob with functional activities. Dc inpatient OT services. Pt does displaysome mild RUE weakness, recommend OP Ot eval as pt desires to address as she attributes some of this weakness to a longstanding rt shoulder issue.NormalMccullough-Hyde Memorial Hospital Lipid Panelon 75-04-8271Aswolduzbos [Mass/Vol]303 mg/wWVamq668-743TtfgohMccullough-Hyde Memorial HospitalComment on above:Performed By: #### [id number] #### [facility] [address] [place], [place] [address]Aidiaibujle in HDL [Mass/Vol]40 mg/dLInvalid Interpretation CodeMccullough-Hyde Memorial HospitalComment on above:Result Comment: '>= 60 LOW RISK' '<= 40 HIGH RISK'Performed By: #### [id number] #### [facility] [address] [place], [place] [address]Pvbrnjhjkqu in LDL [Mass/Vol]174 mg/dLHigh<=129M[facility]-Hyde Memorial HospitalComment on above:Performed By: #### [id number] #### [facility] [address] [place], [place] [address]Ozxzlxsjnxz in VLDL [Mass/Vol]42 mg/dLHigh7-40M[facility]-Hyde Memorial HospitalComment on above:Performed By: #### [id number] #### [facility] [address] [place], [place] [address]Efrraovlhivf [Mass/Vol]211 mg/dLHigh<=149M[facility]-Hyde Memorial HospitalComment on above:Performed By: #### [id number] #### [facility] [address] [place], [place] [address]Hsmyelz 40-60-8582Eokpm gap [Moles/Vol]11 mmol/LNormal6-16 [facility] HospitalComment on above:Performed By: #### [id number] #### [facility] [address] [place], [place] [address]Uykzqznq [Moles/Vol]91 mmol/DWew250-001OlmvwpMccullough-Hyde Memorial HospitalComment on above:Performed By: #### [id number] #### [facility] [address] [place], [place] [address]MG8 [Moles/Vol]31 mmol/QLdyxku84-96RbkjuoMccullough-Hyde Memorial Hospital Comment on above:Performed By: #### [id number] #### [facility] [address] [place], [place] [address]Hmyujipjh [Moles/Vol]2.7 mmol/LAbnormal3.5-5.3FSelect Medical Specialty Hospital - Boardman, IncComment on above:Result Comment: Critical Result Verified by Repeat Analysis Critical Result S_K:2.7 Called to and read back by: CARLOS NIELSEN at: 06/21/2025 01:50:44 by:CHPerformed By: #### [id number] #### [facility] [address] [place] [address]Kmxvxi [Moles/Vol]130 mmol/EGly786-902VccvzfMccullough-Hyde Memorial HospitalComment on above:Performed By: #### [id number] #### [facility] [address] [place], [place] [address]Bijuflwtfcr 45-15-9312Vitnlceto [Mass/Vol]2.3 mg/dLNormal 1.3-2.4FSelect Medical Specialty Hospital - Boardman, IncComment on above:Performed By: #### [id number] #### [facility] [address] [place] [address]Tiviufpiftuy 68-81-5137Mrlnkynwrl [Osmolality]280 mosm/kgNormal 275-295[facility]-Hyde Memorial HospitalComment on above:Performed By: #### [id number] #### [facility] [address] [place], [place] [address]QHQ With T4fr Reflexon 64-21-0099MGI Qn1.66 m[IU]/LNormal 0.34-5.60[facility]Hyde Memorial HospitalComment on above:Performed By: #### [id number] #### [facility] [address] [place], [place] [address]Y Osmolalityon 06-21-2025U Wykfmldoym511 mOsm/prUezizn54-5813 [facility] Memorial HospitalComment on above:Performed By: #### [id number] #### [facility] [address] [place] [place], [place] [address]T Sodiumon 99-35-6284Sozowm [Moles/Vol]24 mmol/LInvalid Interpretation CodeMccullough-Hyde Memorial HospitalComment on above:Performed By: #### [id number] #### [facility] [address] [place], [place] [address]gLEPmt 03-49-0550lNIJ77 mL/min/1.73 r9Xgecdy>=59M[facility]-Hyde Memorial HospitalComment on above:Performed By: #### [id number] #### [facility] [address] [place], [place] [address]pABZ05 mL/min/1.73 p1Ehgqis>=59[facility] Comment on above:Performed By: #### [id number] #### [facility] [address] [place], [place] [address]PY Draw & Holdon 89-66-5709PM D&HSample drawn for Blood Ba [facility] Regional Medical CenterComment on above:Performed By: #### [id number] #### [facility] [address] [place], [place] [address]HBNsw 32-97-2205Vfvxk gap [Moles/Vol]13 mmol/LNormal6-16[facility] Memorial HospitalComment on above:Performed By: #### [id number] #### [facility] [address] [place], [place] [address]HJX/Creat Ratio12 No FgtifPnfths43-94MpslgwMccullough-Hyde Memorial HospitalComment on above:Performed By: #### [id number] #### [facility] [address] [place], [place] [address]Xjzoqdk [Mass/Vol]9.7 mg/dLNormal8.9-11.1FSelect Medical Specialty Hospital - Boardman, IncComment on above:Performed By: #### [id number] #### [facility] [address] [place], [place] [address]Ydlrijiv [Moles/Vol]84 mmol/YXqi453-515QnmbuhMccullough-Hyde Memorial HospitalComment on above:Performed By: #### [id number] #### [facility] [address] [place], [place] [address]WH9 [Moles/Vol]31 mmol/LIljjes15-46AbeuebMccullough-Hyde Memorial Hospital Comment on above:Performed By: #### [id number] #### [facility] [address] [place], [place] [address]Bhbacpuidv [Mass/Vol]0.9 mg/dLNormal0.5-1.3FSelect Medical Specialty Hospital - Board[facility], IncComment on above:Performed By: #### [id number] #### [facility] [address] [place], [place] [address]Xkqeajg [Mass/Vol]126 mg/iBMskcsz33-590RuxddcMccullough-Hyde Memorial HospitalComment on above:Performed By: #### [id number] #### [facility] [address] [place], [place] [address]Mgqkcojay [Moles/Vol]2.3 mmol/LAbnormal3.5-5.3FSelect Medical Specialty Hospital - Boardman, IncComment on above:Result Comment: Critical Result Verified by Repeat Analysis Critical Result S_K:2.3 Called to and read back by: NAI SIMON at: 06/20/2025 18:32:26 by:MJPerformed By: #### [id number] #### [facility] [address] [place], [place] [address]Vuiolu [Moles/Vol]126 mmol/DWaa170-536JtqujcMccullough-Hyde Memorial HospitalComment on above:Performed By: #### [id number] #### [facility] [address] [place], [place] [address]Woas nitrogen [Mass/Vol]11 mg/dLNormal5-21M[facility]Hyde Memorial HospitalComment on above:Performed By: #### [id number] #### [facility] [address] [place], [place] [address]NKP w/ Auto Diffon 25-79-2990Tnpevhyw Absolute0.1 E9/LNormal 0.0-0.2FSelect Medical Specialty Hospital - Board[facility], IncComment on above:Performed By: #### [id number] #### [facility] [address] [place] [address]Yfshyrkpo/100 WBC (Bld)1.1 %Normal0.0-2.0M[facility]ull[facility]-Hyde Memorial HospitalComment on above:Performed By: #### [id number] #### [facility] [address] [place], [place] [address]Nud Absolute0.0 E9/LNormal0.0-0.5FSelect Medical Specialty Hospital - [facility], Inc Comment on above:Performed By: #### [id number] #### [facility] [address] [place] [address]Qsmddkzhksf/100 WBC (Bld)0.3 %Normal0.0-8.0M[facility]ull[facility]-Hyde Memorial HospitalComment on above:Performed By: #### [id number] #### [facility] [address] [place] [address]Ciooddczmgl distribution width (RBC) [Ratio]14.5 %High10.9-14.2 [facility] Memorial HospitalComment on above:Performed By: #### [id number] #### [facility] [address] [place] [address]Hljarmyhtu (Bld) [Volume fraction]43.5 %Jsczyt32.0-46.0M[facility]-Hy[facility] Memorial HospitalComment on above:Performed By: #### [id number] #### [facility] [address] [place] [address]Aopgypyoul (Bld) [Mass/Vol]15.6 g/fGIrrpjc27.0-16.0[facility]-Hy[facility] Memorial HospitalComment on above:Performed By: #### [id number] #### [facility] [address] [place] [address]Sdcjp Absolute2.9 E9/LNormal1.0-4.0[facility] Comment on above:Performed By: #### [id number] #### [facility] [address] [place], [place] [address]Hfglxtdsplx/100 WBC (Bld)35.3 %Erzgnp51.0-50.0[facility]-Hy[facility] Memorial HospitalComment on above:Performed By: #### [id number] #### [facility] [address] [place] [address]OUQ (RBC) [Entitic mass]35.4 kgJyhi74.0-34.0M[facility]-Hy[facility] Memorial HospitalComment on above:Performed By: #### [id number] #### [facility] [address] [place] [address]IJJX (RBC) [Mass/Vol]35.8 g/gSIxtivz96.4-36.0[facility] Memorial HospitalComment on above:Performed By: #### [id number] #### [facility] [address] [place] [address]NVL (RBC) [Entitic vol]98.9 cQJmiuky04.0-100.0[facility] Memorial HospitalComment on above:Performed By: #### [id number] #### [facility] [address] [place] [address]Zsnq Absolute0.7 E9/LNormal0.2-1.0[facility] Comment on above:Performed By: #### [id number] #### [facility] [address] [place] [address]Dnlvkepvb/100 WBC (Bld)8.6 %Normal4.0-14.0[facility] Memorial HospitalComment on above:Performed By: #### [id number] #### [facility] [address] [place] [address]Vsvpxe Absolute4.5 E9/LNormal2.0-7.5FSelect Medical Specialty Hospital - [facility], Inc Comment on above:Performed By: #### [id number] #### [facility] [address] [place] [address]Uttgew Auto54.7 %Wtmvym44.0-75.0[facility] Comment on above:Performed By: #### [id number] #### [facility] [address] [place], [place] [address]Pyxexamt877.0 E9/CIxrufs051.0-500.0[facility] Comment on above:Performed By: #### [id number] #### [facility] [address] [place], [place] [address]Igyazpag mean volume (Bld) [Entitic vol]7.0 fLNormal6.4-10.8 [facility] HospitalComment on above:Performed By: #### [id number] #### [facility] [address] [place], [place] [address]SRT1.4 E12/LNormal4.3-5.9[facility] Memorial HospitalComment on above:Performed By: #### [id number] #### [facility] [address] [place], [place] [address]NFA1.3 E9/LNormal4.0-11.0[facility] Memorial HospitalComment on above:Performed By: #### [id number] #### [facility] [address] [place], [place] [address]IG Head or Brain w/o Contraston 24-28-3433VY Head or Brain w/o ContrastExam Date/Time: 06/20/2025 17:34 EDT Reason for Exam: Neuro deficit, acute, stroke suspected;Stroke Report IMPRESSION: No acute intracranial process. COMMUNICATION: Communicated with: Dr. Palmer on 06/20/2025 at 1740. HISTORY: Rapid response stroke. Right arm numbness and weakness. TECHNIQUE: Serial axial images without IV contrast were obtained from the vertex to the foramen magnum, with sagittal and coronal reconstructions. All CT scans at this facility use dose modulation, iterative reconstruction, and/or weight based dosing when appropriate to reduce radiation dose to as low as reasonably achievable. COMPARISON: CT 06/05/2025. RESULT: Acute change: No evidence of an acute infarct or other acute parenchymal process. Hemorrhage: No evidence of acute intracranial hemorrhage. Mass Lesion / Mass Effect: There is no evidence of an intracranial mass or extraaxial fluid collection. No significant mass effect. Chronic change: None significant via CT. Parenchyma: There is no significant volume loss for age. Ventricles: The ventricles are within normal limits of size and configuration for age. Paranasal sinuses and skull base: Areas of minimal mucosal thickening in the visualized paranasal sinuses. Mastoid air cells clear. The skull base is unremarkable. Soft tissues unremarkable. Ordering Provider: Saul Palmer FINAL REPORT Dictated: 06/20/2025 5:42 pm Venu Persaud MD. Signed (Electronic Signature): 06/20/2025 5:42 pm Signed by: Venu Persaud MD Transcribed by: CARISA Technologist: [facility] Headon [id number] HeadExam Date/Time: 06/20/2025 17:46 EDT Reason for Exam: NEURO DEFICIT, ACUTE, STROKE SUSPECTED;Other (please specify) Report Impression: Refer to concurrent CTA neck dictation. All CT scans at this facility use dose modulation, iterative reconstruction, and/or weight based dosing when appropriate to reduce radiation dose to as low as reasonably achievable. Tech Comments: GFR (mL/min/1/73m2) stroke protocol Contrast: Isovue 370 Contrast amount in ml's: 100.00 Ordering Provider: Saul Palmer FINAL REPORT Dictated: 06/20/2025 6:01 pm Venu Persaud MD Signed (Electronic Signature): 06/20/2025 6:01 pm Signed by: Venu Persaud MD Transcribed by: CARISA Technologist: [facility] Neckon [id number] NeckExam Date/Time: 06/20/2025 17:46 EDT Reason for Exam: NEURO DEFICIT, ACUTE, STROKE SUSPECTED;Other (please specify) Report IMPRESSION: Patent extracranial and intracranial circulation without evidence for occlusion, significant stenosis, or aneurysm. HISTORY: Rapid response stroke. Right arm weakness. Numbness. TECHNIQUE: Spiral high resolution axial images were obtained through the head, neck and superior mediastinum following bolus administration of intravenous contrast for CT angiography. The data was subsequently post-processed utilizing 3D multi-planar reconstructions, 3D maximum intensity projections. COMPARISON: Earlier CT head. All CT scans at this facility use dose modulation, iterative reconstruction, and/or weight based dosing when appropriate to reduce radiation dose to as low as reasonably achievable. RESULT: BRAIN: No significant interval change from the recent CT brain dictation. NECK: Soft tissues: The soft tissue planes are maintained without acute finding. No suspicious mass or lesion. No significant lymphadenopathy. Spine: Degenerative changes cervical spine. Partially imaged postsurgical changes thoracic spine. Lung apices: The visualized lung apices are clear. CT ARTERIOGRAM: Extracranial Circulation: Aortic Arch: Four-vessel aortic arch with direct origin of the left vertebral artery from the arch, normal variant. There is no significant stenosis in the proximal brachiocephalic vessels. Right Carotid findings, with stenosis % estimated by NASCET criteria: Mild plaque formation. No significant stenosis involving the right common carotid artery. No significant stenosis of the right ICA. No evidence for dissection or other acute process. Left Carotid findings, with stenosis % estimated by NASCET criteria: Mild plaque formation. No significant stenosis involving the left common carotid Report artery. No significant stenosis of the left ICA. No evidence for dissection or other acute process. Cervical Vertebral Arteries: Patent bilaterally with left side dominant. No evidence for dissection or other acute process. Intracranial Circulation: Anterior Circulation: Distal ICAs, proximal ACAs, and proximal MCAs appear patent. No evidence for significant stenosis or aneurysm. Vertebrobasilar Circulation: Distal vertebral arteries, basilar artery, proximal groundman, and visualized cerebellar vessels appear patent. No evidence for significant stenosis or aneurysm. Dural venous sinuses: Visualized dural venous sinuses are patent. Tech Comments: GFR (mL/min/1/73m2) stroke protocol Contrast: Isovue 370 Contrast amount in ml's: 100.00 Ordering Provider: Saul Palmer FINAL REPORT Dictated: 06/20/2025 6:01 pm Venu Persaud MD Signed (Electronic Signature): 06/20/2025 6:01 pm Signed by: Venu Persaud MD Transcribed by: CARISA Technologist: JoseMccullough-Hyde Memorial HospitalCapillary Glucose POCon 81-14-4643Adnzjxf [Mass/Vol]139 mg/vMRxir18-31EktdkvMccullough-Hyde Memorial HospitalComment on above:Result Comment: Notified RN/MDPerformed By: #### [id number] #### [facility] [address] [place], [place] [address]IU Clinical Summaryon [id number] Clinical SummaryED Clinical Summary [address] [address] ED Clinical Summary Person Information Name: NATHANIEL MARCIAL [place] Age: 49 Years : 1975 Sex: Female Language: Barbadian PCP: German Sheehan DO Marital Status: Phone: [phone] Visit Id: Visit Reason: Weakness or fatigue; Paresthesia; Potential stroke; POTENTIAL STROKE, ARM NUMBNESS, DIZZINESS, BLURRED VISION Speciality: Acuity: 2 Enc Type: Observation Med Service: Medical Arrival: 06/20/2025 17:18:13 Discharge: LOS: 000 03:52 Checkin: 06/20/2025 17:18:13 Checkout: 06/20/2025 21:10:51 Dispo Type: Admitted as IP to this [facility] EVENTS: Event Name Event Status Request Date/Time Start Date/Time Complete Date/Time Arrive Complete 06/20/2025 17:18:13 06/20/2025 17:18:13 06/20/2025 17:18:13 Document Home Meds Request 06/20/2025 17:18:13 Triage Complete 06/20/2025 17:18:13 06/20/2025 17:26:18 06/20/2025 17:26:18 Bed Assign Complete 06/20/2025 17:18:50 06/20/2025 17:18:50 06/20/2025 17:18:50 Dr Exam Complete 06/20/2025 17:18:50 06/20/2025 17:22:03 06/20/2025 17:22:03 RN Exam Complete 06/20/2025 17:18:50 06/20/2025 19:22:40 06/20/2025 19:22:40 Registration Complete 06/20/2025 17:22:03 06/20/2025 17:28:39 06/20/2025 17:28:39 Pending Labs Complete 06/20/2025 17:23:57 06/20/2025 17:23:57 06/20/2025 17:23:57 EKG Complete 06/20/2025 17:25:16 06/20/2025 18:09:08 NPO Request 06/20/2025 17:26:08 Pending Labs Complete 06/20/2025 17:26:08 06/20/2025 18:34:21 Blood Collect Request 06/20/2025 17:26:08 Lab Complete 06/20/2025 17:26:08 06/20/2025 18:32:38 Patient Care Request 06/20/2025 17:26:08 CT Complete 06/20/2025 17:26:08 06/20/2025 17:27:40 06/20/2025 17:46:38 X-Ray Complete 06/20/2025 17:26:08 06/20/2025 17:41:17 06/20/2025 17:50:34 RT Request 06/20/2025 17:26:08 Isolation Screening Request 06/20/2025 17:26:19 Reg Complete Request 06/20/2025 17:28:39 Reg Bed Request Complete 06/20/2025 17:28:39 06/20/2025 17:28:39 06/20/2025 17:28:39 Wet Read Request 06/20/2025 17:50:34 Pending Labs Complete 06/20/2025 17:53:47 06/20/2025 17:53:47 06/20/2025 18:32:38 Lab Complete 06/20/2025 17:53:47 06/20/2025 17:53:47 06/20/2025 18:32:38 Meds Admin Complete 06/20/2025 17:59:22 06/20/2025 18:14:08 Pending Labs Complete 06/20/2025 18:05:51 06/20/2025 18:05:51 06/20/2025 18:21:20 Meds Admin Complete 06/20/2025 18:33:33 06/20/2025 19:05:13 Meds Admin Complete 06/20/2025 18:38:47 06/20/2025 19:05:14 Consult Request 06/20/2025 19:18:34 Hospitalist Consult Request 06/20/2025 19:18:34 Observation Request 06/20/2025 19:19:31 Patient Care Request 06/20/2025 19:19:33 Patient Care Request 06/20/2025 19:19:33 Medicare Form Complete 06/20/2025 19:19:34 06/20/2025 20:14:12 Patient Care Request 06/20/2025 19:19:34 Patient Care Request 06/20/2025 19:19:34 Patient Care Request 06/20/2025 19:22:41 ADDRESS: [address] [place] [address] DR RACHELE Doran [place] [id number] PHYS DOC NOTES: MEDICAL INFORMATION: Prescriptions Given: Medications to Continue with No Changes Other Medications albuterol (albuterol 0.083% Inh Teresita 3 mL) 0.083% - 3mL dosing units Inhalation every 4 hours as needed Wheezing. Refills: 3. albuterol (Ventolin HFA 90 mcg/inh Aerosol-Adpt) 2 [...] Mouth 3 times a day. Refills: 1. dicyclomine (dicyclomine 20 mg Tab) TAKE 1 TABLET BY MOUTH FOUR TIMES A DAY. Refills: 1. hydrochlorothiazide (hydrochlorothiazide 25 mg Tab) 1 Tablets By Mouth every day. Refills: 0. metoprolol (Toprol XL 50 mg Tab-ER) 1 Tablets By Mouth every day. Refills: 2. omeprazole (omeprazole 40 mg Cap-DR) 1 Capsules By Mouth every day. 30 minutes prior to food or anyother medication.. Refills: 3. quetiapine (Seroquel) 50 Milligram By Mouth at bedtime. PATIENT EDUCATION INFORMATION: Instructions: Follow up: DIAGNOSIS: 1:Stroke; 2:Hypokalemia; 3:HyponatremiaNormalFisher Phoenix Medical CenterED Note-Physicianon [id number] Note-PhysicianED Note-Physician Basic Information Time Seen: Saul Palmer DO 06/20/2025 17:22 Chief Complaint pt to ER c/o R arm numbness and weakness that started @1515. Pt states that she had symptoms yesterday but they resolved prior to going to bed. History of Present Illness Patient is a 49-year-old female history of hypertension panic disorder smoker. She is disabled due to her mental health problems. She is presenting for evaluation of right arm weakness and numbness. Initially had some right arm numbness really present in her right hand she noticed this at 3:15 PM. At 3:45 PM she started to have right arm weakness was having trouble holding her arm up. Last night she was having some involuntary twitches in her chin. The symptoms had resolved. She admits to feeling shortness of breath but denies any chest discomfort with this. Patient's last known well was justprior to 3:15 PM. Since NIH is a 2 for right hand paresthesias and right arm drift that does not hit the bed. She is not a candidate for tPA as she has a low NIH. Review of Systems Constitutional: no fever, no chills, no sweats, no weakness HEENT: no sore throat, ear pain, sinus congestion Respiratory: no SOB, no cough, no orthopnea, no wheezing Cardiovascular: no chest pain, no palpitations, no edema Abdomen: no pain, distension, no n/v or diarrhea Extremities: no swelling Neurological: no dizziness, confusion, headache Additional ROS info: Except as noted above in the above review of systems and in the history of present illness all other systems have been reviewed and are negative or noncontributory Physical Exam Vitals & Measurements HR: 99(Peripheral) RR: 20 SpO2: 96% HT: 150.7 cm Constitutional: No acute distress, nontoxic, non ill appearing Heart: Regular rate and rhythm without murmurs, gallops or rubs Lungs: clear to auscultation bilaterally without wheezes, rales or rhonchi Abdomen: soft, nontender, nondistended abdomen Extremities: warm and dry bilaterally without pitting edema Neurological: awake, alert answers questions appropriately . Cranial nerves II through XII intact, there is motor drift in the right upper extremity but does not hit the bed. Sensation diminished to light touch over the C6-C8 dermatomes right upper extremity compared to left upper extremity. No motor drift bilateral lower extremity. No limb ataxia with tuiw-en-kjpi testing. Vision intact. Patientreceives NIH 2 for these deficits. Medical Decision Making Informed patient that I think she is having a small stroke and she was tearful about this states that she was scared that she was going to . Did provide reassurance for her. We do not see any acute changes on CT head without contrast. Labs showing hypokalemia potassium 2.3 hyponatremia sodium is 126. Patient's troponin is low. Urinalysis does not show any evidence of infection. CT head without contrast CT angio of the head and didnot show any evidence of stroke. Patient symptoms presentation consistent with stroke. She could have some weakness from metabolic abnormalities however would expect this to be global. She received oral potassium and 325 mg aspirin. Patient be admitted for further management. Assessment/Plan 1. Stroke (I63.9: Cerebral infarction, unspecified) 2. Hypokalemia (E87.6: Hypokalemia) 3. Hyponatremia (E87.1: Hypo-osmolality and hyponatremia) Orders: aspirin, 325 mg, Tab-Chew, Chewed, Once, Stop date 06/20/25 18:38:00 EDT, STAT, Start date 06/20/2518:38:00 EDT, 06/20/25 18:38:00 EDT diazepam, 2.5 mg = 0.5 mL, Injection, IV Push, Once, Stop date 06/20/25 17:58:00 EDT, STAT, Start date 06/20/25 17:58:00 EDT, 06/20/25 17:58:00 EDT potassium chloride, 40 mEq = 2 tab(s), Tab-ER, Oral, Once, Stop date 06/20/25 18:33:00 EDT, STAT, Start date 06/20/25 18:33:00 EDT, 06/20/25 18:33:00 EDT Basic Metabolic Panel BB Draw & Hold Cardiac Monitoring CBC w/ Auto Diff Communication Order Communication Order Continuous Pulse Oximetry CT Head or Brain w/o Contrast CTA Head CTA Neck Dysphagia Screen eGFR Oxygen Protocol PT & PTT Rapid Response Form Routine Capillary Glucose POC Stroke Quality Measures Troponin 0 Hr. UA with Cult Rflx UA with Cult Rflx SP XR Chest Single View Disposition Plan Discharge Prescription List Prescriptions No active prescription medications Follow-up No qualifying data available Problem List/Past Medical History Ongoing Asthma BMI 26.0-26.9,adult Dextroscoliosis of thoracic spine Generalized anxiety disorder with panic attacks GERD (gastroesophageal reflux disease) Hypertension Osteoarthritis of right shoulder Over weight Panic disorder [episodic paroxysmal anxiety] Smoker Historical Endometriosis IBS - Irritable bowel syndrome Procedure/Surgical History Appendectomy, x2, Colonoscopy, Hysterectomy, Repair of recurrent inguinal hernia, spine surgery for scoliosis. Medications Inpatient diazepam 5 mg/mL Inj, 2.5 m (more content not included)...[facility] CenterComment on above:Result Comment: Electronically Signed By: Saul Palmer DO\.br\Date and Time Signed: 06/20/25 18:40 EDTED Patient Education Noteon [id number] Patient Education NoteED Patient Education Note [facility] Patient Summaryon [id number] Patient SummaryED Patient Summary [place] [id number] Patient Discharge Instructions Person Information Name: NATHANIEL MARCIAL Age: 49 Years Arrival Date: 06/20/2025 17:18:13 Discharge Diagnosis: 1:Stroke; 2:Hypokalemia; 3:Hyponatremia Primary Care Physician: German Sheehan DO Provider Information Primary Provider: Saul Palmer DO [employer] Technician:None The exam and treatment you received in the Emergency Department were for an urgent problem and are not intended as complete care. It is important that you follow up with a doctor, nurse practitioner,or physician???s child care assistant for ongoing care. If your symptoms become worse or you do not improve asexpected and you are unable to reach your usual health care provider, you should return to the Emergency Department. We are available 24 hours a day. NATHANIEL MARCIAL has been given the following list of patient education materials, prescriptions andfollow-up instructions: Follow-up Instructions: In the event that this physician does not participate in your insurance network, please consult with your insurance company to find a nearby participating provider. Patient Education Materials: A MESSAGE TO ALL PATIENTS REGARDING OPIOIDS PRESCRIPTION OPIOIDS: WHAT YOU NEED TO KNOW Prescription opioids can be used to help relieve slxqttqq-tt-szlbqk pain and are often prescribed following a [...] guidance from the Food and Drug Administration (www.fda.gov/Drugs/ResourcesForYou). ??? Visit www.cdc.gov/drugoverdose to learn about the risks of opioids abuse and overdose. ??? If you believe you may be struggling with addiction, tell your health infant childcare provider and askfor guidance or call [facility]S National Helpline at 0-025-701-IBYW. v Source: US Department of Health and Human Services/Center for Diseas (more content not included)...[facility] Medical CenterPT & PTTon 06-20-2025 INR Coag (PPP) [Relative time]0.96 {INR}Invalid Interpretation [facility] HospitalComment on above:Result Comment: INR results are specifically intended to assess patients stabilized on long-term Anticoagulation therapy suggested INR???s ???Less Intensive Anticoagulation??? 2.0 ??? 3.0 Conventional Range 3.0 ??? 4.5Performed By: #### [id number] #### [facility] [address] [place], [place] [address]GU99.7 second(s)Normal9.4-12.5[facility] Comment on above:Result Comment: 15 days - 4 weeks 1 - 5 months 6 -11 months 1 ??? 5 years 6 ??? 10 years 11 -17 years Mean: 11.2 (9.5 ??? 12.6) Mean: 11.0 (9.7 ??? 12.8) Mean: 11.0 (9.8 ??? 13.0) Mean: 11.3 (9.9 ??? 13.4) Mean: 11.7 (10.0 ??? 14.6) Mean: 11.8 (10.0 - 14.1) Pediatric Reference ranges were obtained from a study by cathy Vanessa. prepared from 1437 samples obtained at 7 different centers using the same coagulation reagent and instrumentation as [facility]. Currently there are no coagulation studies available worldwide for children to 14 days, andno normal ranges.Performed By: #### [id number] #### [facility] [address] [place], [place] [address]NUI16.9 second(s)Nprjio33.1-36.5FSelect Medical Specialty [facility], Inc Comment on above:Result Comment: Parameter 15 days - 4 weeks 1 - 5 months 6 - 11 months 1 - 5 years 6 - 10 years 11 - 17 years PTT Mean: 35.4 (27.6-45.6) Mean: 33.5 (24.8-40.7) Mean: 32.4 (25.1-40.7) Mean: 31.6 (24.0-39.2) Mean: 31.6 (26.9-38.7) Mean: 31.0 (24.6-38.4) Pediatric Reference ranges were obtained from a study by rk Vanessa al. prepared from 1437 samples obtained at 7 different centers using the same coagulation reagent and instrumentation as [facility]. Currently there are no coagulation studies available worldwide for children to 14 days, andno normal ranges. Heparin therapeutic range (represented by Anti-Factor Xa activity of 0.2 - 0.4 U/mL) corresponds to PTT of 56.6 - 109.0 sec.Performed By: #### [id number] #### [facility] [address] [place], [place] [address]Zgdeshfj 0 Hr.on 20-96-2637Awghtwtv HS2.90 pg/mLLow10.10-27.10 [facility] HospitalComment on above:Result Comment: The 95% CI (Confidence Interval) PPV (Positive Predictive Value) for myocardial infarction in females is 38 pg/mL, in males 51 pg/mL. The results should be used in conjunction with clinical conditions of myocardial infarction. (Access High Sensitivity Troponin I Instructions For Use, Yousuf Packwood, April 2018)Performed By: #### [id number] #### [facility] [address] [place], [place] [address]LL with Cult Rflxon 49-62-4731Dooza (U)ColorlessAbnormalYellow [facility] HospitalComment on above:Order Comment: Added by David ExpertResult Comment: Microscopic readings are only performed on those samples that meet specific criteria set forth by [facility]. Performed By: #### [id number] #### [facility] [address] [place], [place] [address]Lbplnry (U) [Mass/Vol]NegativeNormalNegativeMccullough-Hyde Memorial HospitalComment on above:Order Comment: Added by David ExpertPerformed By: #### [id number] #### [facility] [address] [place], [place] [address]Vmaqtsa Ql (U)NegativeNormalNegOhioHealth Grady Memorial Hospital Comment on above:Order Comment: Added by David ExpertPerformed By: #### [id number] #### [facility] [address] [place], [place] [address]FM BloodTraceAbnormalNegOhioHealth Grady Memorial HospitalComment on above:Order Comment: Added by David ExpertPerformed By: #### [id number] #### [facility] [address] [place], [place] [address]WI ClarityClearNormalClearMccullough-Hyde Memorial HospitalComment on above:Order Comment: Added by David ExpertPerformed By: #### [id number] #### [facility] [address] [place], [place] [address]NJ Leuk EstNegativeNormalNegOhioHealth Grady Memorial Hospital Comment on above:Order Comment: Added by David ExpertPerformed By: #### [id number] #### [facility] [address] [place], [place] [address]JT NitriteNegativeNormalNegOhioHealth Grady Memorial Hospital Comment on above:Order Comment: Added by David ExpertPerformed By: #### [id number] #### [facility] [address] [place], [place] [address]MY pH7.0Invalid Interpretation Code5.0-9.0[facility] HospitalComment on above:Order Comment: Added by Discern ExpertPerformed By: #### [id number] #### [facility] [address] [place] [address]IV ProteinNegativeNormalNegativeMccullough-Hyde [facility] Hospital Comment on above:Order Comment: Added by Discern ExpertPerformed By: #### [id number] #### [facility] [address] [place], [place] [address]LR Spec Grav1.017Invalid Interpretation Code1.005-1.030[facility] HospitalComment on above:Order Comment: Added by Discern Expert Performed By: #### [id number] #### [facility] [address] [place] [address]DV UrobilinogenNegativeNormalNegativeMccullough-Hyde Memorial HospitalComment on above:Order Comment: Added by David ExpertPerformed By: #### [id number] #### [facility] [address] [place] [address]Cruizxsgsdib (U) [Mass/Vol]NegativeNormalNegativeMccullough-Hyde Memorial HospitalComment on above:Order Comment: Added by Discern ExpertPerformed By: #### [id number] #### [facility] [address] [place] [address] with Cult Rflx SPon [id number] Spec DescClean CatchNormal [facility] HospitalComment on above:Performed By: #### [id number] #### [facility] [address] [place] [address]ZB Chest Single Viewon [id number] Chest Single ViewExam Date/Time: 06/20/2025 17:50 EDT Reason for Exam: Chest pain Report IMPRESSION: No acute findings by portable radiography. EXAMINATION/TECHNIQUE: XR Chest Single View HISTORY: Stroke. COMPARISON: 06/05/2025. RESULT: No consolidation. No pleural effusion. No pneumothorax. Stable cardiomediastinal silhouette. No acute osseous findings. Mccarthy rods within the spine, unchanged. Ordering Provider: Saul Palmer FINAL REPORT Dictated: 06/20/2025 6:02 pm Venu Persaud MD Signed (Electronic Signature): 06/20/2025 6:02 pm Signed by: Venu Persaud MD Transcribed by: CARISA Technologist: CMLNormalMccullough-Hyde Memorial HospitaleGFRon 46-80-8668zSBO00 mL/min/1.73 e9Ooqigy>=59[facility] HospitalComment on above:Performed By: #### [id number] #### [facility] [address] [place], [place] [address]Ikjimruwus Visit Summaryon 52-86-1606Egywvoatbk Visit Summary Ambulatory Visit Summary NATHANIEL MARCIAL Nano :1975 Visit Date:06/13/2025 Ambulatory Visit Instructions Your Diagnosis Hypertension Smoker Asthma Your Care Team Attending Physician German Birch DO Primary Care Physician - German Sheehan DO This Is Your Medications List albuterol (Ventolin HFA 90 mcg/inh Aerosol-Adpt) albuterol (albuterol 0.083% Inh Teresita 3 mL) alendronate (alendronate 70 mg Tab) alprazolam (Xanax 0.5 mg Tab) amoxicillin atenolol (atenolol 25 mg Tab) benzonatate (Tessalon 100 mg Cap) dicyclomine (dicyclomine 20 mg Tab) hydrochlorothiazide (hydrochlorothiazide 25 mg Tab) omeprazole (omeprazole 40 mg Cap-DR) quetiapine (Seroquel) Procedures Performed Appendectomy, x2, Colonoscopy, Hysterectomy, Repair of recurrent inguinal hernia, spine surgery for scoliosis. Discharge Vitals Heart Rate (Peripheral) 76 Blood Pressure 112/72 Height 150.7 cm Height 59 in Weight 60.4 kg Weight 133.159 lb BMI 26.6 What to do next Scheduled Follow-Up Appointments Monday 2:15 PM EDT With: Where: [facility] Monday 2:30 PM EDT With: Where: [facility] Density Monday 11:20 AM EDT With: German Sheehan DO Where: [facility] [address] [place] [address]- Monday2025 9:30 AM EDT With: Where: [facility] [address] [place] [address]- You Need to Schedule the Following Appointments Follow Up with German Sheehan DO, FAM When: Within 4 weeks Comments: 4 WEEKS FOLLOWUP Where: [address] [place] [address]- Medications What How Much When Why Instructions Changed albuterol (albuterol 0.083% Inh Teresita 3 mL) 0.083% - 3mL dosing units Inhalation Every 4 hours as needed for Wheezing Pickup at [facility]/pharmacy #[id number] Changed albuterol (Ventolin HFA 90 mcg/ inh Aerosol-Adpt) 2 Puffs Inhalation 4 times a day as needed for for wheezing Unchanged alendronate (alendronate 70 mg Tab) 1 Tablets By Mouth Every 7 days Unchanged alprazolam (Xanax 0.5 mg Tab) 1 Tablets By Mouth 3 times a day as needed for for anxiety prn Unchanged amoxicillin Amoxicillin daily as directed. Unchanged atenolol (atenolol 25 mg Tab) 1 Tablets By Mouth Every day Split tab and take 0.5 tab BID Unchanged benzonatate (Tessalon 100 mg Cap) 2 Capsules By Mouth 3 times a day Rib fracture Unchanged dicyclomine (dicyclomine 20 mg Tab) See instructions TAKE 1 TABLET BY MOUTH FOUR TIMES A DAY Unchanged hydrochlorothiazide (hydrochlorothiazide 25 mg Tab) 1 Tablets By Mouth Every day Unchanged omeprazole (omeprazole 40 mg Cap-DR) 1 Capsules By Mouth Every day 30 minutes prior to food or any other medication. Unchanged quetiapine (Seroquel) 50 Milligram By Mouth At bedtime Pharmacy Information [facility]/pharmacy #[id number]: [address] [place], [place] [id number] [phone] Allergies LaMICtal (Unknown) Tape (rash) bacitracin clindamycin [...] signed up for this yet, please contact [employer] at [phone] to get signed up today. Language Information Language assistance services are available as needed. [facility]/Clinic Noteon 30-65-5124[facility] NoteFall [facility] HPI Staff 3 wk f/u Patient is here for follow up on hypertension. Atenolol 25 mg prescribed 06/10 How often are you checking your blood pressure? She has only checked her bp once over the past few days. What are your average readings? 110/70 at last check. Do you exercise? no Are you compliant with your medications? Yes Do you have side effects from the medication? No Do you have any of the following symptoms? Chest Pain? States she has had some CP, thinks its anxiety related. Palpitations? No DIAZ/SOB? No Headache? No Peripheral Edema? No Light Headedness? No PHQ9 - 25 Julienne: Due Pap: Hx Hysterectomy Gray: per patient 2022, [facility] [facility] AMW: UTD History of Present Illness Patient presents today for discussion of change on Atenolol. - Changed 06/10/2025 - On Carvedilol previously Today, patient states that BP is controlled, and she is not having the side effects of the Coreg. She is happy with the findings of the medication. She states her breathing is back to the right level. Review of Systems PHQ Score Initial Depression Screen Score: 5 SCORE Detailed Depression Screen Score: 20 Total Depression Screen Score: 25 ROS - Provider Constitutional: no fever, no [...] swings/depression. Physical Exam Vitals & Measurements HR: 76(Peripheral) BP: 112/72 HT: 59 in HT: 150.7 cm WT: 133.159 lb WT: 60.4 kg BMI: 26.6 General: Well developed, well nourished, in no [...] concerns. Continue current medications, recheck at followup. 2. Smoker (F17.200: Nicotine dependence, unspecified, uncomplicated) We [...] we would be happy to provide these. 3. Asthma (J45.909: Unspecified asthma, uncomplicated) Patient provided with nebulizer for today. She is good at this time, refilled the nebules at this time. Orders: albuterol, 0.083% - 3mL dosing units, Inhalation, q4hr Wheezing, 225 mL, Refill(s) 3, [facility]/pharmacy #[id number], 150.7, cm, 06/13/25 13:52:00 EDT, Height/Length Dosing, 60.4, kg, 06/13/25 13:55:00 EDT, Weight Dosing Follow-up With When Contact Information Link German BETH FAM Within 4 weeks [address] [place] [address]- Additional Instructions: 4 WEEKS FOLLOWUP Problem List/Past Medical History Ongoing Asthma Dextroscoliosis of thoracic spine Generalized anxiety disorder with panic attacks GERD (gastroesophageal reflux disease) Hypertension Osteoarthritis of right shoulder Panic disorder [episodic paroxysmal anxiety] Smoker Historical Endometriosis IBS - Irritable bowel syndrome Procedure/Surgical History Appendectomy, x2, Colonoscopy, Hysterectomy, Repair of recurrent inguinal hernia, spine surgery for scoliosis. Medications albuterol 0.083% Inh Teresita 3 mL, 0.083% - 3mL dosing units, Inhalation, q4hr, PRN, 3 refills alendronate 70 mg Tab, 70 mg= 1 tab(s), Oral, q7day amoxicillin atenolol 25 mg Tab, 25 mg= 1 tab(s), Oral, Daily dicyclomine 20 mg Tab, See Instructions hydrochlorothiazide 25 mg Tab, 25 mg= 1 tab(s), Oral, Daily omeprazole 40 mg Cap-DR, 40 mg= 1 cap(s), Oral, Daily, 3 refills Seroquel, 50 mg, Oral, Bedtime Tessalon 100 mg Cap, 200 mg= 2 cap(s), Oral, TID, 1 refills Ventolin HFA 90 mcg/inh Aerosol-Adpt, 2 puff(s), Inhalation, QID, PRN, 5 refills Xanax 0.5 mg Tab, 0.5 mg= 1 (more content not included)...[facility] Medical CenterComment on above:Result Comment: Electronically Signed By: Link German BETH\.br\Date and Time Signed: 06/13/25 14:27 EDTFamily Medicine Office/Clinic Noteon [id number] Medicine Office/Clinic NoteFamily Medicine Office/Clinic Note Chief Complaint ER Follow Up HPI Staff Patient here for ER f/u ER followup: [facility] [facility] Visit date: 06/05 Symptoms the patient presented [...] Julienne: Ordered Dexa: Ordered Pap: Hx Hysterectomy Gray: per patient 2022, [facility] [place] History of Present Illness Patient presents today for hospital followup. [facility] location: [facility] Admission Date: 06/05/2025 Discharge Date: 06/05/2025 Reviewed [...] some improvement in symptoms, did develop a headache.She was given Tylenol, Reglan/Benadryl for management, did [...] help you quit, w (more content not included)...Normal [facility] HospitalComment on above:Result Comment: Electronically Signed By: German Sheehan DO.nasir\Date and Time Signed: 06/10/25 17:28 EDTED Note-Physicianon [id number] Note-PhysicianED Note-Physician Basic Information Time Seen: Ashley JAUREGUI, [...] she takes Coreg twice daily and had h ydrochlorothiazide added today which she took for the first time. Patient states she has noted thather blood pressure has been particularly elevated throughout [...] in all lung grant bilaterally. No respiratory distressno accessory muscle use Chest Wall: no deformity [...] given Tylenol, Reglan, and (more content not included)...Normal [facility] HospitalComment on above:Result Comment: Electronically Signed By: Rosemarie Ramirez PA-C\.br\Date and Time Signed: 06/05/2523:45 EDT\.br\Electronically Co-Signed By: Saul Palmer DO\.br\Date and Time Co-Signed: 06/08/25 07:45 EDTCT Head or Brain w/o Contraston [id number] Head or Brain w/o ContrastExam Date/Time: 06/05/2025 21:02 EDT Reason for Exam: [...] James Trevino MD Transcribed by: CARISA Technologist: LiliamMccullough-Hyde Memorial HospitalXR Chest Single Viewon [id number] Chest Single ViewExam Date/Time: 06/05/2025 21:03 EDT Reason for Exam: [...] James Trevino MD Transcribed by: CARISA Technologist: HolaMccullough-Hyde Memorial HospitalBMPon [id number] gap [Moles/Vol]13 mmol/LNormal6-16[facility] Comment on above:Performed By: #### [id number] #### [facility] [address] [place], [place] [address]NSU/Creat Ratio10 No MhqguMxsysa76-05IayzcsMccullough-Hyde Memorial HospitalComment on above:Performed By: #### [id number] #### [facility] [address] [place], [place] [address]Fovymui [Mass/Vol]9.6 mg/dLNormal8.9-11.1FSelect Medical Specialty Hospital - Board[facility], IncComment on above:Performed By: #### [id number] #### [facility] [address] [place], [place] [address]Xefjnmra [Moles/Vol]99 mmol/XAnm459-384AahffpMccullough-Hyde Memorial HospitalComment on above:Performed By: #### [id number] #### [facility] [address] [place], [place] [address]DW9 [Moles/Vol]25 mmol/XSymehu63-84KfxdnqMccullough-Hyde Memorial Hospital Comment on above:Performed By: #### [id number] #### [facility] [address] [place], [place] [address]Scqqdiqmxg [Mass/Vol]0.8 mg/dLNormal0.5-1.3FSelect Medical Specialty Hospital - Board[facility], IncComment on above:Performed By: #### [id number] #### [facility] [address] [place], [place] [address]Ezqpomy [Mass/Vol]106 mg/vRIknvdb11-353IgenkwMccullough-Hyde Memorial HospitalComment on above:Performed By: #### [id number] #### [facility] [address] [place], [place] [address]Uixtvhjkd [Moles/Vol]3.5 mmol/LNormal3.5-5.3FSelect Medical Specialty Hospital - Board[facility], IncComment on above:Performed By: #### [id number] #### [facility] [address] [place], [place] [address]Hnzvzt [Moles/Vol]133 mmol/UUbc427-468VgtnflMccullough-Hyde Memorial HospitalComment on above:Performed By: #### [id number] #### [facility] [address] [place] [place], [place] [address]Mgoe nitrogen [Mass/Vol]8 mg/dLNormal5-21[facility] Memorial HospitalComment on above:Performed By: #### [id number] #### [facility] [address] [place] [address]YMJ w/ Auto Diffon 02-78-3914Pgiytkfvrbxq Ql (Bld)PRESENT Invalid Interpretation CodeMccullough-Hyde Memorial HospitalComment on above:Performed By: #### [id number] #### [facility] [address] [place] [address]Kwbpjhjk Absolute0.1 E9/LNormal0.0-0.2FSelect Medical Specialty Hospital - Board[facility], IncComment on above:Performed By: #### [id number] #### [facility] [address] [place] [address]Ldojqindt/100 WBC (Bld)0.9 %Normal0.0-2.0[facility] Memorial HospitalComment on above:Performed By: #### [id number] #### [facility] [address] [place] [address]Wsu Absolute0.0 E9/LNormal0.0-0.5FSelect Medical Specialty Hospital - [facility], Inc Comment on above:Performed By: #### [id number] #### [facility] [address] [place] [address]Whejzmqftkn/100 WBC (Bld)0.5 %Normal0.0-8.0[facility] Memorial HospitalComment on above:Performed By: #### [id number] #### [facility] [address] [place] [address]Javra Absolute3.1 E9/LNormal1.0-4.0[facility] Comment on above:Performed By: #### [id number] #### [facility] [address] [place] [address]Srsqmlawmuq/100 WBC (Bld)43.8 %Plxeml95.0-50.0[facility] Memorial HospitalComment on above:Performed By: #### [id number] #### [facility] [address] [place], [place] [address]PzxgaszhwWHIZFHWTtjlgrc Interpretation [facility]itan HospitalComment on above:Performed By: #### [id number] #### Carlos [facility] [address] [place] [address] 92328Wdqw Absolute0.6 E9/LNormal0.2-1.0[facility] Comment on above:Performed By: #### [id number] #### Gonzalez [facility] [address] [place], [place] [address]Rmadwtgqp/100 WBC (Bld)9.0 %Normal4.0-14.0[facility] HospitalComment on above:Performed By: #### [id number] #### [facility] [address] [place] [address] 33715Brgrgs Absolute3.3 E9/LNormal2.0-7.5FSelect Medical Specialty [facility], Inc Comment on above:Performed By: #### [id number] #### [facility] [address] [place] [address] 89306Osakre Auto45.8 %Kqbpzc80.0-75.0[facility] Comment on above:Performed By: #### [id number] #### [facility] [address] [place] [address] 74548AQE morphology finding Nom (Bld)SEE MORPHOLOGYInvalid Interpretation [facility] HospitalComment on above:Performed By: #### [id number] #### [facility] [address] [place] [address] 29999Zldahgnnrkf distribution width (RBC) [Ratio]15.3 %High10.9-14.2 [facility] HospitalComment on above:Performed By: #### [id number] #### [facility] [address] [place] [address] 63986Yfcynfkehs (Bld) [Volume fraction]43.9 %Ulhtup89.0-46.0[facility] HospitalComment on above:Performed By: #### [id number] #### [facility] [address] [place] [address] 14908Rmmiqcdyvv (Bld) [Mass/Vol]15.3 g/qEIgxonp37.0-16.0[facility] HospitalComment on above:Performed By: #### [id number] #### [facility] [address] [place] [address] 79482ULJ (RBC) [Entitic mass]36.1 upUvsr34.0-34.0[facility] HospitalComment on above:Performed By: #### [id number] #### [facility] [address] [place] [address] 37942LWDC (RBC) [Mass/Vol]34.9 g/tJSkvdhj62.4-36.0[facility] HospitalComment on above:Performed By: #### [id number] #### [facility] [address] [place] [address] 43510HCD (RBC) [Entitic vol]103.4 kSRjwh37.0-100.0[facility] HospitalComment on above:Performed By: #### [id number] #### [facility] [address] [place] [address] 73663Flbqksxm238.0 E9/QGpugwi520.0-500.0[facility] Comment on above:Performed By: #### [id number] #### [facility] [address] [place] [address] 29537Agpstpui mean volume (Bld) [Entitic vol]6.8 fLNormal6.4-10.8 [facility] HospitalComment on above:Performed By: #### [id number] #### [facility] [address] [place] [address] 79284UZF6.3 E12/LNormal4.3-5.9[facility] HospitalComment on above:Performed By: #### [id number] #### [facility] [address] [place] [address] 30753QOL2.1 E9/LNormal4.0-11.0[facility] HospitalComment on above:Performed By: #### [id number] #### Carlos [facility] [address] [place], [place] [address]TT Clinical Summaryon [id number] Clinical SummaryED Clinical Summary [address] [address] ED Clinical Summary Person Information Name: NATHANIEL MARCIAL [place] Age: 49 Years : 1975 Sex: Female Language: Barbadian PCP: German Sheehan DO Marital Status: Phone: [phone] Visit Id: Visit Reason: Chest pressure - Adult; Medical problem - minor; Hypertension; Anxiety; HYPERTENSION,LEFT HAND NUMBNESS, TINGLING, SLURRED SPEECH Speciality: Acuity: [...] 06/05/2025 23:56:35 06/05/2025 23:56:35 06/05/2025 23:56:35 ADDRESS: [address] [place] [address] DR RACHELE MIRANDA [place] [phone] PHYS DOC NOTES: MEDICAL INFORMATION: Prescriptions Given: [...] day. 30 minutes prior to food or anyother medication.. Refills: 3. quetiapine (Seroquel) 50 Milligram By Mouth at bedtime. PATIENT EDUCATION INFORMATION: Instructions: Hypertension, Adult, Ghvy-yk-Dtpf Follow up: With: Address: When: German Sheehan [address] [place] [address] Visiarc (1) In 3 days 06/08/2025 Comments: Call to schedule a follow-up appointment with your primary care provider and psychiatrist. Continuetaking your blood pressure medications as prescribed. Monitor your blood pressure at home and keep a log of it. Return to the ED with any new or worsening symptoms. DIAGNOSIS: Anxiety; WANG (headache); HTN (hypertension)[facility] Patient Summaryon [id number] Patient SummaryED Patient Summary [address] [address] Patient Discharge Instructions Person Information Name: NATHANIEL MARCIAL Age: 49 Years Arrival Date: 06/05/2025 19:50:49 Discharge Diagnosis: Anxiety; WANG (headache); HTN (hypertension) Primary Care Physician: German Sheehan DO Provider Information Primary Provider: Saul Palmer DO [employer] Technician:Rosemarie Ramirez PA-C The exam and treatment you received in the Emergency Department were for an urgent problem and are not intended as complete care. It is important that you follow up with a doctor, nurse practitioner,or physician???s child care assistant for ongoing care. If your symptoms become worse or you do not improve asexpected and you are unable to reach your usual health care provider, you should return to the Emergency Department. We are available 24 hours a day. NATHANIEL MARCIAL has been given the following list of patient education materials, prescriptions andfollow-up instructions: Follow-up Instructions: With: Address: [place]: German Sheehan [address] [place] [address] Visiarc (1) In 3 days 06/08/2025 Comments: Call to schedule a follow-up appointment with your primary care provider and psychiatrist. Continuetaking your blood pressure medications as prescribed. Monitor your blood pressure at home and keep a log of it. Return to the ED with any new or worsening symptoms. In the event that this physician does not participate in your insurance network, please consult with your insurance company to find a nearby participating provider. Patient Education Materials: Hypertension, Adult, Bvao-gy-Hpgm A MESSAGE TO ALL PATIENTS REGARDING OPIOIDS PRESCRIPTION OPIOIDS: WHAT YOU NEED TO KNOW Prescription opioids can be used to help relieve flulnicq-bh-fapgvq pain and are often prescribed following a [...] program or your pharmacy mail-back program, or [facility] (more content not included)...NormalMccullough-Hyde Memorial HospitalPT & PTTon [id number] Coag (PPP) [Relative time]0.86 {INR}Invalid Interpretation CodeMccullough-Hyde Memorial HospitalComment on above:Result Comment: INR results are specifically intended to assess patients stabilized on long-term Anticoagulation therapy suggested INR???s ???Less Intensive Anticoagulation??? 2.0 ??? 3.0 Conventional Range 3.0 ??? 4.5Performed By: #### [id number] #### Carlos [facility] [address] [place], [place] [address]HO1.6 second(s)Normal9.4-12.5Fisher [facility] HospitalComment on above:Result Comment: 15 days - 4 weeks 1 - 5 months 6 -11 months 1-5 years 6-10 years 11 -17 years Mean: 11.2 (9.5-12.6) Mean: 11.0 (9.7-12.8) Mean: 11.0 (9.8-13.0) Mean: 11.3 (9.9-13.4) Mean: 11.7 (10.0-14.6) Mean: 11.8 (10.0 - 14.1) Pediatric Reference ranges were obtained from a study by Shaun Beltran et al. prepared from 1437 samples obtained at 7 different centers using the same coagulation reagent and instrumentation as [facility]. Currently there are no coagulation studies available worldwide for children to 14 days, andno normal ranges.Performed By: #### [id number] #### [facility] [address] [place], [place] [address]TPE33.9 second(s)Wikueo11.1-36.5FSelect Medical Specialty Hospital [facility], Inc Comment on above:Result Comment: Parameter 15 days - 4 weeks 1 - [...] the same coagulation reagent and instrumentation as [facility]. Currently there are no coagulation studies available worldwide for children to 14 days, andno normal ranges. Heparin therapeutic range (represented by Anti-Factor Xa activity of 0.2 - 0.4 U/mL) corresponds to PTT of 56.6 - 109.0 sec.Performed By: #### [id number] #### [facility] [address] [place], [place] [address]Mujhhmts 0 Hr.on 87-54-7161Mxrlruyi HS2.70 pg/mLLow10.10-27.10 [facility] HospitalComment on above:Result Comment: The 95% CI (Confidence Interval) PPV (Positive Predictive Value) for myocardial infarction in females is 38 pg/mL, in males 51 pg/mL. The results should be used in conjunction with clinical conditions of myocardial infarction. (Access High Sensitivity Troponin I Instructions For Use, Yousuf Jamila, April 2018)Performed By: #### [id number] #### [facility] [address] [place], [place] [address]Rtlfmhrd 1 Hr.on 84-22-5877Qztmonrt HS<2.94Fdd88.10-27.10[facility] HospitalComment on above:Result Comment: The 95% CI (Confidence Interval) PPV (Positive Predictive Value) for myocardial infarction in females is 38 pg/mL, in males 51 pg/mL. The results should be used in conjunction with clinical conditions of myocardial infarction. (Access High Sensitivity Troponin I Instructions For Use, Yousuf Jamila, April 2018)Performed By: #### [id number] #### [facility] [address] [place], [place] [address]NH with Cult Rflxon 62-22-7919Ikwzb (U)ColorlessAbnormalYellow [facility] HospitalComment on above:Result Comment: Microscopic readings are only performed on those samples that meet specific criteria set forth by [facility].Performed By: #### [id number] #### [facility] [address] [place], [place] [address]Uhjbcwt (U) [Mass/Vol]NegativeNormalNegativeMccullough-Hyde Memorial HospitalComment on above:Performed By: #### [id number] #### [facility] [address] [place], [place] [address]Lgqewox Ql (U)TraceAbnormalNegativeMccullough-[facility]de [facility] Comment on above:Performed By: #### [id number] #### [facility] [address] [place], [place] [address]GG BloodTraceAbnormalNegativeMccullough-Hyde Memorial HospitalComment on above:Performed By: #### [id number] #### [facility] [address] [place], [place] [address]QW ClarityClearNormalClearMccullough-Hyde Memorial HospitalComment on above:Performed By: #### [id number] #### [facility] [address] [place], [place] [address]HH Leuk EstNegativeNormalNegOhioHealth Grady Memorial Hospital Comment on above:Performed By: #### [id number] #### [facility] [address] [place], [place] [address]ZF MucousNegativeNormalNegOhioHealth Grady Memorial Hospital Comment on above:Performed By: #### [id number] #### [facility] [address] [place], [place] [address]VO NitriteNegativeNormalNegativeMccullough-[facility] Hospital Comment on above:Performed By: #### [id number] #### [facility] [address] [place] [address]OP pH6.0Invalid Interpretation Code5.0-9.0[facility] HospitalComment on above:Performed By: #### [id number] #### [facility] [address] [place] [address]WZ ProteinNegativeNormalNegativeMccullough-[facility] Comment on above:Performed By: #### [id number] #### [facility] [address] [place] [address]VP SWN2-8Qbnbdl2-4IufikkSelect Medical Specialty Hospital - Board[facility], IncComment on above: Performed By: #### [id number] #### [facility] [address] [place] [address]48[address]QU Spec Grav1.005Invalid Interpretation Code1.005-1.030[facility] Memorial HospitalComment on above:Performed By: #### [id number] #### [facility] [address] [place] [address] 85492PG Squam Epithelial0-2Invalid Interpretation CodeMccullough-Hyde Memorial HospitalComment on above:Performed By: #### [id number] #### [facility] [address] [place] [address] 15[address]NI UrobilinogenNegativeNormalNegativeMccullough-Hyde Memorial HospitalComment on above:Performed By: #### [id number] #### [facility] [address] [place] [address] 17709ZO PSY8-9Hlxgos0-6IgcgxxSelect Medical Specialty Hospital [facility], IncComment on above: Performed By: #### [id number] #### [facility] [address] [place] [address]Sweefjyvigmq (U) [Mass/Vol]NegativeNormalNegativeFisher Chisago Medical CenterComment on above:Performed By: #### [id number] #### Carlos [facility] [address] [place], [place] [address]SJ Spec DescClean CatchNormalMccullough-Hyde Memorial HospitalComment on above:Performed By: #### [id number] #### Carlos [facility] [address] [place], [place] [address]lEMMom 00-94-3120sKUO39 mL/min/1.73 h3Ptfmjk>=59[facility] Memorial HospitalComment on above:Performed By: #### [id number] #### [facility] [address] [place], [place] [address]Djakpobylv Visit Summaryon 07-05-9135Wgkhaxqozx Visit Summary Ambulatory Visit Summary NATHANIEL MARCIAL :1975 Visit Date:05/23/2025 Ambulatory Visit Instructions Your Diagnosis Encounter for annual wellness visit (AWV) in Medicare patient Screening for ischemic heart disease Primary ovarian failure Hypertension Asthma Smoker Generalized anxiety disorder with panic attacks GERD (gastroesophageal reflux disease) Osteoarthritis of right shoulder Breast cancer screening by mammogram Screen for colon cancer Bipolar I disorder Your Care Team Attending Physician - German [...] PM EDT With: German Sheehan DO Where: [facility] [address] [place] [address]- Monday2025 9:30 AM EDT With: Where: [facility] [address] [place] [address]- You Need to Complete the Following Comprehensive [...] Post menopausal, Primary ovarian failure, No, 140, pp_set_radiology_subspecialty, Not Required, Gonzalez - [place] Mamm Screen w/CAD if perf and 3D Robert, 05/23/25, Routine, Order for Future Visit, Transport Mode:Ambulatory, Reason: Screening, No, Breast cancer screening by mammogram, No breast implants., pp_set_radiology_subspecialty, Required & Missing, Gonzalez [place] Medications What How Much When Why Instructions [...] (depression). Bipolar I disorder differs from other bipolardisorders in that it involves extreme episodes of [...] a family member wit (more content not included)...[facility] Medicine Office/Clinic Noteon 25-66-2472Gyabmw Medicine Office/Clinic NoteFall [facility] Medicine Office/Clinic Note Chief Complaint Medicare Wellness Visit History of Present Illness I was in the office and available for consultation and to provide direct supervision at the time ofthis visit. I have provided supervision of the [...] and all current CDC recommended immunizations, relevant riskrecommendations and the following patient brochures were given. Reviewed What can I expect during my Medicare preventative care visit [facility]-Falls Prevention and home safety screening reviewed. Patient denies any falls in last 12 months, voices no worry about falling, exhibits no problems with sitting and standing. Pt voices understanding with keeping walk way area free of clutter to prevent tripping and/or falling. [place] Advance Directives reviewed. Patient received Advance Directive packet. Spent 5 minutes with patient. An explanation of ADVANC[employer] CARE PLANNING for end of life reviewed. Discussion included handout Planning for Important Health Care Decisions with explanations regarding different decisions todiscuss with their chosen representatives. Explained the role each unit support representative would play, encouraged patient to select 2 [...] as their representatives information. Check off which formsthey have in place and where they have it on file. [place] Donor Registry also is included in packet: Reviewed with patient if they are and/or if they are not an organ donor they can complete this form and mail to the [place] [employer] (address is included) to have on file. [...] PCP visit. Will have labs completed with [facility]. Reviewed concerns with bladder control over past 6 months with no concerns. Reviewed pain symptoms with patient: Patient has c/o pain right shoulder 05/04. Patient is currentlyreceiving trigger point injections and states it is [...] AUDIT risk assessment screening completed, risk score (3)with patient denying concerns with use. 2. Screening for ischemic heart disease (Z13.6: Encounter for screening for cardiovascular disorders) Lipid panel ordered. Educated patient to fast (more content not included)... [facility] CenterComment on above:Result Comment: Electronically Signed By: German Sheehan DO\.br\Date and Time Signed: 05/25/25 06:35 E DT\.br\Electronically Co-Signed By: Yris Betancourt RN\.br\Date and Time Co- Signed: 05/23/25 13:39EDTFamily Medicine Office/Clinic Noteon 89-20-2365Czmsbu Medicine Office/Clinic NoteFami Medicine Office/Clinic Note HPI Staff Patient here [...] to go. Julienne: Due Pap: Hx Hysterectomy Gray: per patient 2022, [facility] AMW: UTD History of [...] a sleep study today. She denies any priorsleep studies done. Patient states that her shoulder pain is getting better with the trigger point. She is very happy she was able to get ahold of the 5% lidocaine patches, they are helping immensely as well. She statesthat she is functioning much better, though she notes that the shoulder trigger points took about 7days to become effective. Review of Systems ROS [...] to hold on medications at this time, andavoid management of joint by orthopedics for now. [...] medical support in addressing this problem. Your BMIand weight management will be followed at subsequent visits. 6. Sleep disorder (G47.9: Sleep disorder, un (more content not included)... [facility] CenterComment on above:Result Comment: Electronically Signed By: German Sheehan DO\.br\Date and Time Signed: 05/23/25 13:39 EDTOrders Onlyon [id number] [id number] Nathaniel Marcial 1975 F Date Provider Department Center 04/24/2025 [id number], HISTORICAL [place] Love Family History Problem Relation Age of Onset Heart failure Mother Heart failure Father Transient ischemic attack Father No Known Problems Sister No Known Problems Brother Family Status - Relation Status Age at Mother Father Sister BrotherNormalUniversity of Faith Community HospitalAmbulatory Visit Summaryon [id number] Visit SummaryAmbulatory Visit Summary NATHANIEL MARCIAL :1975 Visit Date:04/22/2025 [...] AM EDT With: German Sheehan DO Where: [facility] [address] [place] [address]- Monday 11:00 AM EDT With: German Sheehan DO Where: [facility] [address] [place] [address]- You Need to Schedule the Following Appointments Follow Up with German Sheehan DO, FAM When: Within 4 weeks Comments: 4 WEEKS FOLLOWUP Where: [address] [place] [address]- Medications What How Much When Why Instructions New dicyclomine (dicyclomine 20 mg Tab) 1 Tablets By Mouth 4 times a day Duration: 30 Days Refills:1 Pickup at [facility]/pharmacy #[id number] New lidocaine topical (lidocaine Top 5% film Patch) 1 Patches Topical Every day Dextroscoliosis of thoracic spine Osteoarthritis of right shoulder Refills: 5 apply 12 hours on and 12 hours off daily Pickup at [facility]/pharmacy #[id number] Unchanged albuterol (albuterol 0.083% Inh Teresita 3 [...] Milligram By Mouth At bedtime Pharmacy Information [facility]/pharmacy #[id number]: [address] [place], [place] [phone] Allergies LaMICtal (Unknown) Tape (rash) bacitracin clindamycin [...] signed up for this yet, please contact [employer] at [phone] to get signed up today. Language Information Language assistance services are available as needed. [facility] CenterAmb[facility] Summary Ambulatory Visit Summary NATHANIEL MARCIAL [...] AM EDT With: German Sheehan DO Where: [facility] [address] [place] [address]- Monday 11:00 AM EDT With: German Sheehan DO Where: [address] [facility] [address]- You Need to Schedule the Following Appointments Follow Up with German Sheehan DO, FAM When: Within 4 weeks Comments: 4 WEEKS FOLLOWUP Where: [address] [place] [address]- Medications What How Much When Why Instructions New dicyclomine (dicyclomine 20 mg Tab) 1 Tablets By Mouth 4 times a day Duration: 30 Days Refills:1 Pickup at [facility]/pharmacy #[id number] New lidocaine topical (lidocaine Top 5% film Patch) 1 Patches Topical Every day Dextroscoliosis of thoracic spine Osteoarthritis of right shoulder Refills: 5 apply 12 hours on and 12 hours off daily Pickup at [facility]/pharmacy #[id number] Unchanged albuterol (albuterol 0.083% Inh Teresita 3 [...] Milligram By Mouth At bedtime Pharmacy Information [facility]/pharmacy #[id number]: [address] [place], [place] [phone] Allergies LaMICtal (Unknown) Tape (rash) bacitracin clindamycin [...] signed up for this yet, please contact [employer] at [phone] to get signed up today. Language Information Language assistance services are available as needed. [facility] Medicine Office/Clinic Noteon 95-20-5661Nidfhn Medicine Office/Clinic NoteFall River Hospital Medicine Office/Clinic Note Chief Complaint Review Results HPI Staff Patient here to review test results - At last visit provider reordered x-rays. Provider also prescribed Benzonatate for cough and a referral to [facility]. Patient has completed to x-rays and would like to review. Patient notes she cannot get an appointment with [facility] until 09/2025, she would like to discuss this with provider. Patient would also like to discuss test orders for lactose intolerance. Gray: per patient 2022, [facility] Julienne: due Pap: Hx Hysterectomy AMW: Needs to Schedule History of Present Illness Patient presents today for 6 week followup. - Referred to Dr. Vasquez at [facility] at patient request - Referred to cardiology due to refractory HTN management - Follows for Dr. Wilson at [facility] for orthopedics as well as right [...] Refill(s) 5, apply 12 hours on and 12hours off daily, [facility]/pharmacy #[id number], 150.7, cm, 04/22/25 9:14:00 EDT, Height/Length [...] Refill(s) 5, apply 12 hours on and 12hours off daily, [facility]/pharmacy #[id number], 150.7, cm, 04/22/25 9:14:00 EDT, Height/Length [...] medical support in addressing this problem. Your BMIand weight management will be followed at subsequent visits. Ordered: 1125F Pain severity quantified; pain present Body Mass Index (BMI) documented 3008F Depression Screening Negative 3352F Functional status assessed 1170F Medication li (more content not included)...[facility] Comment on above:Result Comment: Electronically Signed By: German Sheehan DO\.br\Date and Time Signed: 04/22/25 10:12 EDTXR Spine Cervical 4 or 5 Viewson [id number] Spine Cervical 4 or 5 ViewsExam Date/Time: 04/21/2025 11:51 EDT Reason for Exam: [...] Kevin Ayers MD Transcribed by: CARISA Technologist: [facility]ICOClinton Memorial HospitalXR Spine Lumbosacral Minimum 4 Viewson [id number] Spine Lumbosacral Minimum 4 ViewsExam Date/Time: 04/21/2025 11:50 EDT Reason for Exam: [...] Kevin Ayers MD Transcribed by: CARISA Technologist: [facility] HospitalXR Spine Thoracic 3 Viewson [id number] Spine Thoracic 3 ViewsExam Date/Time: 04/21/2025 11:49 EDT Reason for Exam: [...] Kevin Ayers MD Transcribed by: CARISA Technologist: [facility] HospitalXR Shoulder Complete Righton [id number] Shoulder Complete RightExam Date/Time: 04/21/2025 11:55 EDT Reason for Exam: [...] James Trevino MD Transcribed by: CARISA Technologist: SilviaEcu Health Duplin Hospitalmitchell [facility] And HospitalAmbulatory Visit Summaryon [id number] Visit SummaryAmbulatory Visit Summary NATHANIEL MARCIAL :1975 Visit Date:02/27/2025 Ambulatory Visit Instructions Your Diagnosis Hypertension Asthma GERD (gastroesophageal reflux disease) Smoker Generalized anxiety disorder with panic attacks Panic disorder [episodic paroxysmal anxiety] BMI 28.0-28.9,adult C. difficile enteritis Rib fracture Dextroscoliosis of thoracic spine Osteoarthritis of right shoulder Your Care Team Attending Physician - German Sheehan DO Primary Care Physician - German Sheehan DO This Is Your Medications List acetaminophen-oxycodone (acetaminophen-oxycodone 325 mg-5 mg Tab) albuterol (Ventolin HFA [...] PM EDT With: German Sheehan DO Where: [facility] [address] [place] [address]- You Need to Schedule the Following Appointments Follow Up with German Sheehan DO, ALCON When: Within 2 weeks Comments: 2 WEEKS Where: [address] [place] [address]- You Need to Complete the Following XR Shoulder Complete Right, 02/27/25, Routine, Order for future visit, Transport Mode: Ambulatory, Reason: Arthritis, No, Osteoarthritis of right shoulder, pp_set_radiology_subspecialty, Not Required, [facility] [place] XR Spine Cervical 4 or 5 Views, 02/27/25, Routine, Order for future visit, Transport Mode: Ambulatory, Reason: Neck Pain, No, Rib fracture Dextroscoliosis of thoracic spine, pp_set_radiology_subspecialty, Not Required, [facility] [place] XR Spine Lumbosacral Minimum 4 Views, 02/27/25, Routine, Order for future visit, Transport Mode: Ambulatory, Reason: Back pain, No, Rib fracture Dextroscoliosis of thoracic spine, pp_set_radiology_subspecialty, Not Required, [facility] [place] XR Spine Thoracic 3 Views, 02/27/25, Routine, Order for future visit, Transport Mode: Ambulatory, Reason: Back pain, No, Rib fracture Dextroscoliosis of thoracic spine, pp_set_radiology_subspecialty, Not Required, [facility] [place] Someone Will Contact You Regarding These Appointments [facility] External Ambulatory Referral, Patient choice/referral by family/friend, Gastroenterology, No active case, prior patient of Dr. Vasquez, would like to see him again if possible at [facility], 02/27/25 10:53:00 EDT, C. difficile enteritis Medications What How Much When Why Instructions New benzonatate (Tessalon 100 mg Cap) 2 Capsules By Mouth 3 times a day Rib fracture Refills: 1 Pickup at [facility]/pharmacy #[id number] New carvedilol (carvedilol 25 mg Tab) 2 Tablets By Mouth Twice a day (with meals) Changed albuterol (albuterol 0.083% Inh Teresita 3 mL) 0.083% - 3mL dosing units Inhalation Every 4 hours as needed for Wheezing Changed albuterol (Ventolin HFA 90 mcg/ inh Aerosol-Adpt) 2 Puffs Inhalation 4 times a day as needed for for wheezing Pickup at [facility]/pharmacy #6177 Changed dicyclomine (dicyclomine 20 mg Tab) 1 Tablets By Mouth 4 times a day Duration: 14 Days Pickup at [facility]/pharmacy #6177 Changed omeprazole (omeprazole 40 mg Cap-DR) 1 Capsules By Mouth Every day 30 minutes prior to foodor any other medication. Pickup at [facility]/pharmacy #6177 Unchanged acetaminophen-oxycodone (acetaminophen-oxycodone 325 mg-5 mg Tab) TAKE 1 TABLET [...] Milligram By Mouth At bedtime Pharmacy Information [facility]/pharmacy #[id number]: [address] [place], [place] [phone] Allergies LaMICtal (Unknown) Tape (rash) bacitracin clindamycin (Unknown) vancomycin Problems Ongoing - Any problem that you are currently receiving treatment for. Asthma Dextroscoliosis of thoracic spine Generalized anxiety disorder with panic attacks GERD (gastroesophageal reflux disease) Hypertension Panic disorder [episod (more content not included)...[facility] Medicine Office/Clinic Noteon [id number] Medicine Office/Clinic NoteFagardner state hospital Medicine Office/Clinic Note Chief Complaint Establish Care HPI Staff Patient here to establish care (emergency contact amd friend, Akbar) Establish Care: History: Any previous diagnosis: see below History of seeing any specialist: [facility] GI (Gale Vasquez), [place] Cardiology (Nacho Crabtree), [facility] Psychiatry (Tawnya Bah) and Powertrain Design Engineer (Dr. Walsh) When was your last doctors visit: over a year Last provider: Gracy Medina Any recent labs: no Health Maintenance UTD: Colonoscopy: per patient 2-3 years ago, [facility] Mammogram: due Pelvic/Pap: Hx Hysterectomy Acute: Current issues/complaints: Patient would like to discuss new Cardiology and GI referrals. Patient would also like to discuss Cardiac medication (concerned with lower blood pressures) and Fosamax. - Patient was seen at [facility] ER 02/02/25 for left rib pain. X-ray negative for fracture. Naproxen prescribed and advised to f/u with PCP. Patient did f/u with Marry Stevens CNP 02/04, but didn't establish care at that time. No changes made. - Patient was seen at [facility] 02/23/25 for rib pain. Right ninth rib fracture. Patient prescribed Diclofenac and Percocet. Patient declines taking Diclofenac. AMW: Needs to Schedule History of Present Illness Care History Patient last PCP was:Hien Medina D.O. Patient currently sees Dr. Bah for psychiatric [...] a new referral to Dr. Vasquez at [facility]. She has a history of C. Difficile infection,requiring multiple rounds of Vanco, and had a hard time of management. She would like to keep with him as he has managed her case well in the past. Patient states that her heart medications just recently got changed around by her marketing business analyst. HerHTN was not well controlled at that time. [...] like to discuss this with a different marketing business analyst. She just cancelled an Echo due to [...] shoulder replacement. Has seen Dr. Wilson at [facility]. She is about 2 years out [...] intake today. She is (more content not included)...Normal [facility] HospitalComment on above:Result Comment: Electronically Signed By: German Sheehan DO\.br\Date and Time Signed: 02/27/25 11:41 EDTPre-Visit Planningon [id number]-Visit PlanningPre-Visit Planning From: Rosy Alvarenga To: German Sheehan DO; Sent: 02/26/2025 11:22:51 EDT Subject: Pre-Visit Planning Due Date/Time: 02/26/2025 11:22:00 EDT Caller Name: MARCIAL NATHANIEL Mcgill; Caller Number: H , Prerna Ma Dr. Sheehan. During a pre-visit planning chart [...] follow-up exam in one year, sooner as clinicallynecessary. Based on your medical judgment, can you please clarify if osteoporosis is present? I can update theChronic Problem List with your response if you would like. In responding to this request, please exercise your independent professional judgment. The fact that a question is asked does not imply that any particular answer is desired or expected. If you have any questions, please feel free to contact me at extension [phone]. Thank you! Rosy Alvarenga LPN Clinical Cafeteria Table Attendant [place] [address] Extension: [phone] [email or web address] Boat [email or web address] From: German Sheehan DO To: Rosy Alvarenga; Sent: 02/27/2025 07:28:14 EDT Subject: RE: Pre-Visit Planning Caller Name: NATHANIEL MARCIAL; Caller Number: Meaghan , Prerna This is a new patient to me, I cannot address this without meeting her. Thanks for the info though!Have a great day![facility] CenterOffice Visiton [id number]-up [id number] Nathaniel Marcial 1975 F Date Provider Department Center 02/20/2025 NACHO POTTER [place] Family History Problem Relation Age of Onset Heart failure Mother Heart failure Father Transient ischemic attack Father No Known Problems Sister No Known Problems Brother Family Status - Relation Status Age at Mother Father Sister Brother Level of Service:42761 [place] OFFICE/OUTPATIENT ESTABLISHED MOD [facility]Office Visiton [id number]-up visit [id number] Nathaniel Marcial Nano 1975 F Date Provider Department [place] 02/05/2025 NACHO POTTER Family History Problem Relation Age of Onset Heart failure Mother Heart failure Father Transient ischemic attack Father No Known Problems Sister No Known Problems Brother Family Status - Relation Status Age at Mother Father Sister Brother Level of Service:99013 [place] OFFICE/OUTPATIENT ESTABLISHED MOD [facility] 30 [facility] HospitalAmbulatory Visit Summaryon 02-04-2025 Ambulatory Visit SummaryAmbulatory Visit Summary NATHANIEL MARCIAL :1975 Visit Date:02/04/2025 [...] AM EDT With: German Sheehan DO Where: [place] [address] [place] [address]- Medications What How Much When Instructions Unchanged albuterol (albuterol 0.083% Inh Teresita 3 mL) 0.083% - 3mL dosing units Inhalation Every 4 hours as needed for Wheezing Unchanged albuterol (ProAir HFA 90 mcg/ inh inhalation aerosol) 2 Puffs Inhalation 4 times a day asneeded for Wheezing Unchanged alprazolam (Xanax 0.5 mg Tab) 1 Tablets By Mouth 3 times a day as needed for for anxiety prn Unchanged dicyclomine (Bentyl 20 mg Tab) 1 Tablets By Mouth 4 times a day as needed for As needed for pain or spasm Unchanged ibuprofen (ibuprofen 600 mg Tab) 1 Tablets By Mouth Every 8 hours as needed for as neededfor pain with food or milk Unchanged metoprolol [...] MRI???to determine if there were internal injuries orbroken bones (fractures). How is this treated? This condition may be treated with: ??? Rest. This is often the best treatment for a rib contusion. ??? Ice packs. This reduces swelling and inflammation. ??? Deep-breathing exercises. These may be recommended to reduce the risk for lung collapse and pneumonia. ??? Medicines. Qjxc-mhz-ddqrisx or prescription medicines may be given to control pain. ??? Injection of a numbing medicine around the nerve near your injury (nerve block). Follow these instructions at home: Medicines ??? Take hktr-jxj-wvvclwv and prescription medicines only as told by your health care provider. ??? Ask your health care provider if the medicine prescribed to you: ? Requires you to avoid driving or using machinery. ? Can cause constipation. You may need to take these action (more content not included)...[facility] Office/Clinic Note on [id number] Medicine Office/Clinic NoteFall [facility] Office/Clinic Note Chief Complaint The patient presents for follow-up after a suspected rib contusion and increased blood pressure readings. HPI Staff Nathaniel is a 49 year old female presenting with ER followup: Hospital: [facility] Visit date: 02/02/25 Symptoms the patient presented [...] heart medication usually keeps blood pressure low. Discussionalso addressed rib compression wraps, which were discouraged [...] heart medication regimen. - Follow up with marketing business analyst for medication evaluation. Follow-up No qualifying data [...] Recorded influenza, unspecified fo (more content not included)...[facility] Medical CenterComment on above:Result Comment: Electronically Signed By: MARRY STEVENS CNP\.br\Date and Time Signed: 02/04/25 16:49 EDTED Note-Physicianon [id number] Note-PhysicianED Note-Physician Basic Information Time Seen: Mason JAUREGUI, Chris Chavira 02/02/2025 18:39 Chief Complaint rib pain after [...] other associated symptoms no other prior treatments orcomplaints. Family: Reviewed and noncontributory Social: lives at [...] left side. For this reason she is givena dose of IM Toradol and Kenalog here [...] day(s), # 20 tab(s), Refills(s) 0, Pharmacy: [facility]/pharmacy #[id number], 149, cm, 02/02/25 18:37:00 EDT, [...] In 3 days 02/05/2025 EDT [address] [place] [address]- [facility] (1) Additional Instructions: Patient Education Rib Contusion Attestation Patient seen and evaluated by the physician child care assistant. Attending physician was present in the emergency department and supervised care. This visit was performed by both the physician and an APC. I performed all aspects of the MDM as documented. This report was transcribed using voice recognition software. Every effort was made to ensure accuracy, however, inadvertently computerized face hardener mistakes may be present. Appropriate healthcare PPE was used in evaluating this patient. The patient was placed in a mask. The healthcare provider was wearing mask, gloves, and utilizing proper hand hygiene. All equipment was properly cleansed. I performed a substantive part of the MDM during the patient??? (more content not included)...[facility] Medical CenterComment on above:Result Comment: Electronically Signed By: Mason JAUREGUI, Chris Chavira\.br\Date and Time Signed: 02/02/2519:51 EDT\.br\Electronically Co-Signed By: Nash Neal DO\.br\Date and Time Co-Signed: 02/03/25 01:45 EDTXR Ribs Unilat 3 Views Left w/ PA Cheston [id number] Ribs Unilat 3 Views Left w/ PA ChestExam Date/Time: 02/02/2025 19:09 EDT Reason for Exam: [...] Benjamin Miramontes DO Transcribed by: CARISA Technologist: Paddy [facility] Clinical Summaryon [id number] Clinical SummaryED Clinical Summary [place] [id number] ED Clinical Summary Person Information Name: NATHANIEL MARCIAL Kenyatta/[facility] Age: 49 Years : 1975 Sex: Female Language: Barbadian PCP: NONE, XXXX Marital Status: Phone: [phone] Visit Id: Visit Reason: Rib/trunk pain-swelling; RIB/TRUNK [...] 02/02/2025 19:49:23 02/02/2025 19:49:23 02/02/2025 19:49:23 ADDRESS: [facility] [address] [place] [phone] PHYS DOC NOTES: MEDICAL INFORMATION: Prescriptions Given: New Medications [id number], [address] [place], [place] [id number], [phone] naproxen (naproxen 500 mg Tab) 1 Tablets By Mouth 2 times a day for 10 Days. Refills: 0. Medications to Continue with No Changes Other Medications acetaminophen-oxycodone (Percocet 5 mg-325 mg oral tablet) 1-2 [...] times a day as needed for constipation. Refills:0. ibuprofen (ibuprofen 600 mg Tab) 1 Tablets [...] Contusion Follow up: With: Address: When: German Sheehan [facility] [place] [address] Business (1) In 3 days 02/05/2025 DIAGNOSIS: Contusion of rib on left [facility]Ohio[facility] Patient Summary on [id number] Patient SummaryED Patient Summary [address] [address] Patient Discharge Instructions Person Information Name: NATHANIEL MARCIAL Age: 49 Years Arrival Date: 02/02/2025 18:29:21 Discharge Diagnosis: Contusion of rib on left side Primary Care Physician: NONE, XXXX Provider Information Primary Provider: Nash Neal DO Advanced Hvac Engineering Technician:Chris Cuevas PA-C The exam and treatment you received in the Emergency Department were for an urgent problem and are not intended as complete care. It is important that you follow up with a doctor, nurse practitioner,or physician???s child care assistant for ongoing care. If your symptoms become worse or you do not improve asexpected and you are unable to reach your usual health care provider, you should return to the Emergency Department. We are available 24 hours a day. NATHANIEL MARCIAL has been given the following list of patient education materials, prescriptions andfollow-up instructions: Follow-up Instructions: With: Address: When: German Sheehan [address] [place] [address] [employer] (1) In 3 days 02/05/2025 In the event that this physician does not participate in your insurance network, please consult with your insurance company to find a nearby participating provider. Patient Education Materials: Rib Contusion A MESSAGE TO ALL PATIENTS REGARDING OPIOIDS PRESCRIPTION OPIOIDS: WHAT YOU NEED TO KNOW Prescription opioids can be used to help relieve geoehagy-cx-iloivq pain and are often prescribed following a [...] guidance from the Food and Drug Administration (www.fda.gov/Drugs/ResourcesForYou). ??? Visit www.cdc.gov/drugoverdose to learn about the risks of opioids abuse and overdose. ??? If you believe you may be struggling with addiction, tell your health infant childcare provider and askfor yossi (more content not included)...[facility]36on [id number] was in because of high pulse. BP 137/90 and pulse was 122. EKG was done.[facility]Office Visiton [id number]-up [id number] Nathaniel Marcial 1975 F Date Provider Department Center 07/19/2024 BETH SHIRLEY Family History Problem Relation Age of Onset Heart failure Mother Heart failure Father Transient ischemic attack Father Family Status - Relation Status Age at Mother Father Level of Service:90552 [place] OFFICE/OUTPATIENT ESTABLISHED MOD MDM 30 [facility]36on [id number] low b/p Pt claims that her B/P [...] think she was coming in for something minor.[facility] CHEMISTRYOrdered By: SYSTEM SYSTEM on 02-83-3003Qjizric [Mass/Vol]4.1 g/dLNormal 3.3 - 5.0 gm/dLRemisol ChemAlbumin/Globulin [Mass ratio]1.2 {ratio}Normal1.1 - 2.2Remisol ChemAlk Vqxk213 [iU]/dHigh21 - 98 Int._Unit/LRemisol ChelMUS53 [iU]/d Normal6 - 46 Int._Unit/LRemisol ChemAnion gap [Moles/Vol]13 mmol/LNormal6 - 16 mEq/LRemisol DchiSAM12 [iU]/dNormal5 - 43 Int._Unit/LRemisol ChemBili Direct0.2 mg/dLNormal0.0 - 0.4 mg/dLRemisol ChemBili Indirect0.4 mg/dLNormal0.1 - 0.9 mg/dLRemisol ChemBili Total0.6 mg/dLNormal0.0 - 1.1 mg/dLRemisol ChemCalcium [Mass/Vol]8.7 mg/dLLow8.9 - 11.1 mg/dLRemisol ChemChloride [Moles/Vol]104 mmol/L Zmlfcb356 - 111 mmol/LRemisol ChemCO2 [Moles/Vol]24 mmol/UQrlaqn99 - 31 mmol/L Remisol ChemCreatinine [Mass/Vol]0.7 mg/dLNormal0.5 - 1.3 mg/dLRemisol ChemeGFR 106 mL/min/1.73 q2Owwlrk>=59mL/min/1.73 l1Loiajej ChemGlobulin (S) [Mass/Vol]3.3 g/dLNormal1.4 - 4.0 gm/dLRemisol ChemGlucose [Mass/Vol]89 mg/cLZujrpq41 - 199 mg/dLRemisol ChemLipase Lvl11 unit/LLow13 - 58 unit/LRemisol ChemPotassium [Moles/Vol]2.9 mmol/LLow3.5 - 5.3 mmol/LRemisol ChemProtein [Mass/Vol]7.4 g/dL Normal6.0 - 7.8 gm/dLRemisol ChemSodium [Moles/Vol]138 mmol/VAfbgme932 - 145 mmol/LRemisol ChemUrea nitrogen [Mass/Vol]9 mg/dLNormal5 - 21 mg/dLRemisol Chem Urea nitrogen/Creatinine [Mass ratio]13 mg/mgBgwnsy06 - 20Remisol ChemHEMATOLOGY Ordered By: SYSTEM SYSTEM on 78-50-5644Izsuzhso Absolute0.0 E9/LNormal0.0 - 0.2 E9/LRemisol HemeBasophils/100 WBC (Bld)0.5 %Normal0.0 - 2.0 %Remisol HemeEos Absolute0.0 E9/LNormal0.0 - 0.5 E9/LRemisol HemeEosinophils/100 WBC (Bld)0.1 % Normal0.0 - 8.0 %Remisol HemeErythrocyte distribution width (RBC) [Ratio]16.1 % High10.9 - 14.2 %Remisol HemeHematocrit (Bld) [Volume fraction]46.0 %Whpmbl43.0 - 46.0 %Remisol HemeHemoglobin (Bld) [Mass/Vol]15.5 g/kULxqomh40.0 - 16.0 gm/dL Remisol HemeLymph Absolute2.1 E9/LNormal1.0 - 4.0 E9/LRemisol Heme Lymphocytes/100 WBC (Bld)35.1 %Retjba83.0 - 50.0 %Remisol HemeMCH (RBC) [Entitic mass]34.5 jxXagk86.0 - 34.0 pgRemisol HemeMCHC (RBC) [Mass/Vol]33.4 g/dLNormal 31.4 - 36.0 gm/dLRemisol HemeMCV (RBC) [Entitic vol]103.1 gDUxmw43.0 - 100.0 fL Remisol HemeMono Absolute0.6 E9/LNormal0.2 - 1.0 E9/LRemisol HemeMonocytes/100 WBC (Bld)9.5 %Normal4.0 - 14.0 %Remisol HemeNeutro Absolute3.2 E9/LNormal2.0 - 7.5 E9/LRemisol HemeNeutro Auto54.8 %Qjllrl32.0 - 75.0 %Remisol HemePlatelet 322.0 E9/WIqgpss737.0 - 500.0 E9/LRemisol HemePlatelet mean volume (Bld) [Entitic vol]8.2 fLNormal6.4 - 10.8 fLRemisol HemeRBC4.5 E12/LNormal4.3 - 5.9 E12/LRemisol HemeWBC5.9 E9/LNormal4.0 - 11.0 E9/LRemisol HemeURINALYSISOrdered By: Crystal Porter on 86-07-1869Fynzsjap LM Ql (Urine sed)Trace /HPFNormal Trace/HPFFTMC UA Auto SSBilirubin Ql (U)Negative (10/13/23 4:23 PM)NormalNegativeFT UA Auto SSClarity (U)Clear (10/13/23 4:23 PM)NormalClearFTMC UA Auto SSColor (U)Yellow (10/13/23 4:23 PM)NormalYellowFT UA Auto SSEpithelial cells.squamous LM.HPF (Urine sed) [#/Area]0-2 /HPFNormal0-2/HPFFTMC UA Auto SSGlucose Test strip (U) [Mass/Vol]Negative (10/13/23 4:23 PM)NormalNegativeN[facility] UA Auto SSHemoglobin Ql (U)Trace *ABN* (10/13/23 4:23 PM)Invalid Interpretation CodeNegativeN[facility]A Auto SSKetones (U) [Mass/Vol]Negative (10/13/23 4:23 PM)NormalNegativeNORT[facility] UA Auto SSLithium.plasma/Godwin.RBC (Bld) [Mass ratio]0-3 /HPFNormal0-3/HPFFTMC UA Auto SSNitrite Ql (U)Negative (10/13/23 4:23 PM)NormalNegativeNORTHE[facility] UA Auto SSpH (U)6.5 *NA* (10/13/23 4:23 PM)Invalid Interpretation Code5.0 - 9.0[facility]A Auto SSProtein (U) [Mass/Vol]Negative (10/13/23 4:23 PM)NormalNegativeN[facility] UA Auto SSSpecific gravity (U) [Rel density] <=1.005 *NA* (10/13/23 4:23 PM)Invalid Interpretation Code1.005 - 1.030FTMC UA Auto SSUA Spec DescClean Catch (10/13/23 4:23 PM)NormalNEW ENGLAND [facility] Auto SSUrobilinogen Qn (U)0.0346706 {Arturo'U}/dLNormal0.0 - 1.0 EU/dLNORTHEASTERN [facility] UA Auto SSWBC Auto Ql (U)Negative (10/13/23 4:23 PM)NormalNegativeNEW ENGLAND [facility] Auto SSWBC LM.HPF (Urine sed) [#/Area]0-5 /HPFNormal0-5/HPFNORTHEASTERN [facility] UA Auto SSXR FOOT 3+ VIEWS LEFTon 05-31-2023 Exam Date/Time: 05/31/2023 16:31 EDT Reason for [...] CARISA Technologist: BILL Technical Comments Radiation Dose: [place] in mGy = na DAP = naFTMCRadiology, Radiologist, - 05/31/2023 Exam Date/Time: 05/31/2023 16:31 EDT [...] CARISA Technologist: BILL Technical Comments Radiation Dose: [place] in mGy = na DAP = na [facility] HealthcareRadiology Study observation (narrative)[facility] HealthcareXR FOOT 3+ VIEWS LEFTOrdered By: Radiologist Radiology on [id number] Work Phone: cNPBreanne [phone] (ORCrowdcastMN) NATHANIEL MARCIAL ([id number]) 1975 F Date Time Provider Department 05/11/23 [facility] During your visit today, we recorded [...] Fully Assessed Reason for Visit: Patient Question [7237] Cmt: Offering patient surgical date. Prescriptions as [...] *04/10/2023 Encounter Status:Closed by MARCIE CHOU on 05/11/23[facility] HospitalCNPNTelephone (ORQ) NATHANIEL MARCIAL ([id number]) 1975 F Date Time Provider Department 05/11/23 SHARITA MYERS ORQ During your visit today, we recorded the following information about you: Vinita Crabtree 05/11/2023 10:35 AM Signed Left VM and sent [employer] message to patient to see if she wants to schedule shoulder surgery with Dr. Meyrs on 05/18. Waiting for call back Allergies [...] *04/10/2023 Encounter Status:Closed by VINITA CRABTREE on 05/11/23NoMarietta Memorial HospitalXR Foot - left 2 ViewsOrdered By: Meka Matias on 05-05-2023 Radiology Study observation (narrative)[facility] HealthcareXR Foot - left 2 Views Ordered By: Meka Matias on [id number] HealthcareCT Shoulder - right WO contraston 04-13-2023* * *Final Report* * * DATE OF [...] Collapse of the humeral head as described. 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 And Point Assembly Supervisor: [employer] Transcribe Date/Time: Apr 13 2023 4:03P Dictated by : PAUL REED MD This examination was interpreted and the report reviewed and electronically signed by: PAUL REED MD on Apr 13 2023 4:04PM EST [id number]^AGFA_IDC^SI^ACN [facility] HealthcareCT Shoulder - right WO contrastOrdered By: Radiologist Radiology on 03-50-7199EBAW [facility] Work Phone: cNPBreanne [phone] (PODITW) MARCIALNATHANIEL Carrillo ([id number]) 1975 F Date Time Provider Department 04/11/23 AURELIANO VANN PODITW During your visit today, we recorded the following information about you: Abi Montague 04/11/2023 12:06 PM Signed Patient states that [employer] is unable to send out bone stimulator due to incorrect verbiage in order. Please all Leigh Ann at [phone] to clarify Selina Villa 04/11/2023 1:21 PM [...] MA 04/12/2023 11:00 AM Signed Faxed to [phone] per below note. Thank you, MARTIN Angel Deborah 04/12/2023 1:29 PM Signed Leigh Ann calling back---everything was sent for the wrong ankle. Please call Leigh Ann at [phone] Aureliano Vann DPM 04/12/2023 2:51 PM Signed done Anne Mcnair Ma 04/12/2023 3:05 PM Signed Faxed. Goetz Peri 04/13/2023 12:20 PM Signed Pt called and stated info is still not right and she is asking to speak to someone. Peri Goetz Rosa M Jaimes 05/11/2023 12:[address] Myers office calling stating that patient is upset that office is not calling patient back regarding swelling in her feet. Patient upset that she is not hearing back from office. Meshaarnold Chou from Dr. Myers office said we can contact her at [phone] with any questions. Please contact patient or [...] 11:07 AM Addendum I noticed that in [email or web address] message she said that patient re-injured herself [...] Patient scheduled for Podiatry on 05/30 at [facility] Allergies As of Date: 04/11/2023 Noted [...] AT LEAST 30 M (more content not included)...NormalSelect Medical [facility] Clinic Rehabilitation Hospital, Edwin ShawOVon 82-54-2723ATZKRrhhuy Visit ([facility]) NATHANIEL MARCIAL ([id number]) 1975 F Date Time Provider Department 04/10/23 [...] As you know she is a 47-year-old qktn-rmdc-xgfutjpx female with complaints in her shoulder that [...] Active internal rotation i (more content not included)...NormalHisaint monica's home HospitalCT Shoulder - right WO contraston 23-61-9160Hybvvubkx Study observation (narrative)[facility] HealthcareXR SHLDR >/=3V AP/PIEDAD AP/OTHR RTon 75-58-7717LE SHLDR >/=3V AP/PIEDAD AP/OTHR RT* * *Final Report* * * DATE OF [...] Collapse of the humeral head as described. [employer] Assembly Supervisor: [employer] Transcribe Date/Time: Apr 13 2023 4:03P Dictated by : PAUL REED MD This examination was interpreted and the report reviewed and electronically signed by: PAUL REED MD on Apr 13 2023 4:04PM EST [id number] Braintree Rehabilitation HospitalCNOVon 19-75-3433SNQWEtebck Visit (ORTHMN) NATHANIEL MARCIAL ([id number]) 1975 F Date Time Provider Department 03/30/23 [...] seen Dr. Nate Gavin with [facility] in [place] and ordered a MRI of her shoulder [...] Pain Level: 8 Pain Location: Shoulder-Right Description: Aching;Burning;Cramping;Dull;Itching;Radiating;Sharp;Shooting;Sore;Spasm; Stabbing;Stiffness;Throbbing;Tightness Duration Amount of Time: -- 1.5 - [...] belly press test. Positive speeds test. Positive [place]'s test. Positive impingement signs (more content not included)...[facility] 22-04-8169HBVZ Office Visit (PODIMN) NATHANIEL MARCIAL ([id number]) 1975 F Date Time Provider Department 03/27/23 [...] for CRPS Plan: - (more content not included)...NormalFirelands Regional Medical CenterXR ANKLE 3V AP/LAT/OBL LTon 91-48-6666AA ANKLE 3V AP/LAT/OBL LT* * *Final Report* * * DATE OF [...] WHICH MAY RELATED TO DISUSE AND/OR HYPEREMIA. [employer] Assembly Supervisor: [facility] Transcribe Date/Time: Mar 27 2023 12:44P Dictated by : KENDALL GUTIERREZ MD This examination was interpreted and the report reviewed and electronically signed by: KENDALL GUTIERREZ MD on Mar 27 2023 12:45PM EST [id number]_[id number] Regional Medical Center* * *Final Report* * * DATE OF [...] WHICH MAY RELATED TO DISUSE AND/OR HYPEREMIA. [employer] Assembly Supervisor: [facility] EDGEWOODInterview Master Transcribe Date/Time: Mar 27 2023 12:44P Dictated by : KENDALL GUTIERREZ MD This examination was interpreted and the report reviewed and electronically signed by: KENDALL GUTIERREZ MD on Mar 27 2023 12:45PM EST [id number]^AGFA_IDC^SI^ACNCCF-CLINISYNCRadiology, MD Del - 03/27/2023 * * *Final Report* * [...] WHICH MAY RELATED TO DISUSE AND/OR HYPEREMIA. [employer] Assembly Supervisor: [employer] Transcribe Date/Time: Mar 27 2023 12:44P Dictated by : KENDALL GUTIERREZ MD This examination was interpreted and the report reviewed and electronically signed by: KENDALL GUTIERREZ MD on Mar 27 2023 12:45PM EST [id number]^AGFA_IDC^SI^ACN [facility] HealthcareRadiology Study observation (narrative)[facility] HealthcareXR ANKLE 3V AP/LAT/OBL LTOrdered By: Radiologist Radiology on 73-04-7619[facility] Work Phone: XR ANKLE GENERAL 3V AP/LAT/OBL LEFTon 03-27-[address] [facility] HospitalProgress Noteson [id number] Authentication Interface Message TextEMERGENCY TRIAGE, TREAT AND TRANSPORT (ET3) DOCUMENTATION OF TELEHEALTH VISIT Date / Time: 01/11/2023 0515 Name: Nathaniel Marcial : 1975 SSN: [id number] EMS Agency: [facility] [x] Verbal consent obtained [] [...] Disposition Reported: Same ET3 Encounter Completed by: Chelo Alva [facility] CenterVeodin System CHEMISTRYOrdered By: SYSTEM SYSTEM on 02-83-7754Uxsfo gap [Moles/Vol]14 mmol/L Normal6 - 16 mEq/LFTMC RemisolCalcium [Mass/Vol]8.7 mg/dLLow8.9 - 11.1 mg/dLFTMC RemisolChloride [Moles/Vol]100 mmol/TWvy398 - 111 mmol/LFTMC RemisolCO2 [Moles/Vol]24 mmol/EMpbcmf66 - 31 mmol/LFTMC RemisolCreatinine [Mass/Vol]1.0 mg/dLNormal0.5 - 1.3 mg/dLFTMC RemisolGFR/1.73 sq M.predicted among blacks MDRD (S/P/Bld) [Vol rate/Area]mL/min/1.73 t4Fzrequ>=59mL/min/1.73 m2[facility] Chem S GFR/1.73 sq M.predicted among non-blacks MDRD (S/P/Bld) [Vol rate/Area]59 mL/min/1.73 c9Yrzivx>=59mL/min/1.73 m2[facility] Chem SGlucose [Mass/Vol]97 mg/dL Sofpuv21 - 199 mg/dLFTMC RemisolPotassium [Moles/Vol]4.0 mmol/LNormal3.5 - 5.3 mmol/LFTMC RemisolSodium [Moles/Vol]134 mmol/SSkj014 - 145 mmol/LFTMC Remisol Urea nitrogen [Mass/Vol]14 mg/dLNormal5 - 21 mg/dLFTMC RemisolUrea nitrogen/Creatinine [Mass ratio]14 mg/gkLkrtiz89 - 20FT[facility] RemisolCOAGULATION Ordered By: Alona Dai on 49-73-1459rAYG Coag (PPP) [Time]31.1 fEsaziv68.1 - 36.5 second(s)[facility] Auto CoagINR Coag (PPP) [Relative time]1.0 {INR}Invalid Interpretation CodeFTMC Auto CoagPT Coag (PPP) [Time]10.8 sNormal9.4 - 12.5 second(s)[facility] Auto CoagHEMATOLOGYOrdered By: SYSTEM SYSTEM on 11-12-2022 Basophils/100 WBC (Bld)0.5 %Normal0.0 - 2.0 %[facility] HemeAutoSSBasophils/Leukocytes Auto (Bld) [Pure # fraction]0.0 E9/LNormal0.0 - 0.2 E9/LFTMC HemeAutoSS Eosinophils/100 WBC (Bld)1.2 %Normal0.0 - 8.0 %[facility] HemeAutoSS Eosinophils/Leukocytes Auto (Bld) [Pure # fraction]0.1 E9/LNormal0.0 - 0.5 E9/L [facility] HemeAutoSSLymphocytes/100 WBC (Bld)31.4 %Oaopjc58.0 - 50.0 %[facility] HemeAutoSS Lymphocytes/Leukocytes Auto (Bld) [Pure # fraction]2.4 E9/LNormal1.0 - 4.0 E9/L [facility] HemeAutoSSMonocytes/100 WBC (Bld)7.8 %Normal4.0 - 14.0 %[facility] HemeAutoSS Monocytes/Leukocytes Auto (Bld) [Pure # fraction]0.6 E9/LNormal0.2 - 1.0 E9/L [facility] HemeAutoSSNeutrophils/100 WBC (Bld)59.1 %Vfuwlk79.0 - 75.0 %[facility] HemeAutoSS Neutrophils/Leukocytes Auto (Bld) [Pure # fraction]4.5 E9/LNormal2.0 - 7.5 E9/L [facility] HemeAutoSSHEMATOLOGYOrdered By: Alona Dai on 11-34-2072Xjmcndxpkgp distribution width (RBC) [Ratio]15.0 %High10.9 - 14.2 %[facility] HemeAutoSSHematocrit (Bld) [Volume fraction]42.8 %Spuaqh29.0 - 46.0 %[facility] HemeAutoSSHemoglobin (Bld) [Mass/Vol]14.4 g/oJKdsnzz86.0 - 16.0 gm/dLFTMC HemeAutoSSMCH (RBC) [Entitic mass]36.2 leTtnm71.0 - 34.0 pgFTMC HemeAutoSSMCHC (RBC) [Mass/Vol]33.6 g/dL Spyosl81.4 - 36.0 gm/dLFTMC HemeAutoSSMCV (RBC) [Entitic vol]107.7 xTQlcm81.0 - 100.0 fLFTMC HemeAutoSSPlatelet mean volume (Bld) [Entitic vol]6.8 fLNormal6.4 - 10.8 fLFTMC HemeAutoSSPlatelets (Bld) [#/Vol]243.0 E9/STuibgy847.0 - 500.0 E9/L [facility] HemeAutoSSRBC (Bld) [#/Vol]4.0 E12/LLow4.3 - 5.9 E12/[facility] HemeAutoSSWBC corrected for nucl RBC Auto (Bld) [#/Vol]7.7 E9/LNormal4.0 - 11.0 E9/LFC HemeAutoSSCNOVon 25-06-2181MXMWVchszf Visit (GENSMN) NATHANIEL MARCIAL ([id number]) 1975 F Date Time Provider Department 07/28/22 10:30 AM RONAN CABELLOMook During your visit today, we recorded the following information about you: Temperature Pulse Respiration Blood pressure 97.8 degrees 90/minute 12/minute 125/89 Weight Height 57.2 kg 1.499 m Dalton Jesus 07/28/2022 10:59 AM Addendum What is the [...] Signed GENERAL SURGERY CLINIC NOTE Nathaniel Marcial [id number] HPI: Nathaniel Marcial is a 46 year [...] not recall but is following with a marketing business analyst in 1 week. O: BP 125/89 Pulse [...] Noted Resolved Cellulitis [L03. (more content not included)...NormalFirelands Regional Medical Center OVA AND PARASITE EXAMINATIONon 66-85-0401Zky + Parasite ExamFinal reportNormal The [facility] HospitalComment on above:Result Comment: These results were obtained using wet preparation(s) and trichrome stained smear. This test does not include testing for Cryptosporidium parvum, Cyclospora, or Microsporidia.Performed By: #### OVAPE #### [facility] [address] [place] [address] Dr. Jemima Costa 1CL[facility] on above:Result Comment: No ova, cysts, or parasites seen. . One negative specimen does not rule out the possibility of a parasitic infection.Performed By: #### OVAPE #### [facility] [address] [place] [address] Dr. Jemima FnaCTOFERRIN FECAL QUANTon 55-99-1839Xjszhgxirkm, Fecal, Quant. <1.70Kuuymg7.00-7.24Firelands Regional Medical CenterComchelsea hospital on above:Result Comment: Results verified by repeat testing . Baseline (normal) [...] from those with non-inflammatory irritable bowel syndrome (IBS).Performed By: #### LACTFQ #### [facility] [address] [place] [address] Dr. Jemima Dc CULTUREon 09-35-0988Yihczttwxdljy CultureFinal reportNormal The [facility] HospitalComment on above:Performed By: #### CXSTOOL #### [facility] [address] [place] [address] Dr. Jemima Narayan coli Shiga Toxin EIANegativeNoalNegativeFirelands Regional Medical Center Comment on above:Performed By: #### CXSTOOL #### [facility] [address] [place] [address] Dr. Jemima Costa 1CommentBarnesville HospitalComment on above:Result Comment: No Salmonella or Shigella recovered.Performed By: #### CXSTOOL #### [facility] [address] [place] [address] Dr. Jemima Costa Comment: No Campylobacter species isolated. Salmonella/Shigella ScreenFinal reportBarnesville HospitalComment on above:Performed By: #### CXSTOOL #### [facility] [address] [place] [address] Dr. Jemima Diane. DIFF PCRon 2C. DIFFICILE PCRNegativeNormalNEGATIVEFirelands Regional Medical CenterComment on above:Performed By: #### CDIFPOC #### [facility] [address] [address] [address] Jemima Celis AUTO DIFFon 27-75-1236IUWC #0.1 103/ulNormal0.0-0.1The [facility] HospitalComment on above:Performed By: #### CBC #### [facility] [address] [place] [address] Dr. Jemima PaulBasophils/100 WBC (Bld)1.0 %Normal0.2-2.0[facility] Comment on above:Performed By: #### CBC #### [facility] [address] [place] [address] Dr. Jemima Jensen #0.2 103/ulNormal0.0-0.7The [facility] HospitalComment on above: Performed By: #### CBC #### [facility] [address] [place] [address] Dr. Jemima Narayanosinophils/100 WBC (Bld)3.0 %Normal0.9-7.0[facility] Comment on above:Performed By: #### CBC #### [facility] [address] [place] [address] Dr. Jemima Narayanrythrocyte distribution width (RBC) [Ratio]12.4 %Aeuiit43.0-15.0 The [facility] HospitalComment on above:Performed By: #### CBC #### [facility] [address] [place] [address] Dr. Jemima PaulHematocrit (Bld) [Volume fraction]43.4 %Xwadjn81.0-48.0The [facility] HospitalComment on above:Performed By: #### CBC #### [facility] [address] [place] [address] Dr. Jemima PaulHemoglobin (Bld) [Mass/Vol]14.8 g/iRWeecun46.0-16.0The [facility] HospitalComment on above:Performed By: #### CBC #### [facility] [address] [place] [address] Dr. Jemima Nava #0.04 10e3/ulCritically high0.00-0.03[facility] Comment on above:Performed By: #### CBC #### [facility] [address] [address] [address] Jemima Nava %0.6 %Critically high0.0-0.5The [facility] HospitalComment on above:Performed By: #### CBC #### [facility] [address] [address] [address] Jemima Luong #3.1 103/ulNormal1.2-3.8The [facility] HospitalComment on above:Performed By: #### CBC #### [facility] [address] [address] [address] Jemima Stephenshocytes/100 WBC (Bld)44.9 %Bpuagk10.5-60.0The [facility] HospitalComment on above:Performed By: #### CBC #### [facility] [address] [place] [address] Dr. Jemima Morton DIFF REQNONormalThe [facility] Community HospitalComment on above: Performed By: #### CBC #### [facility] [address] [address] [address] Jemima Valladares (RBC) [Entitic mass]36.2 pgCritically high26.7-34.0The [facility] HospitalComment on above:Performed By: #### CBC #### [facility] [address] [address] [address] Jeimma Byrd (RBC) [Mass/Vol]34.1 g/kXFxrdub19.9-35.2The [facility] HospitalComment on above:Performed By: #### CBC #### [facility] [address] [address] [address] Jemima Marquez (RBC) [Entitic vol]106.1 fLCritically high81.0-99.0The [facility] HospitalComment on above:Performed By: #### CBC #### [facility] [address] [place] [address] Dr. Jemima Chinchilla #0.4 103/ulNormal0.3-0.8The [facility] HospitalComment on above:Performed By: #### CBC #### [facility] [address] [place] [address] Dr. Jemima Moffettocytes/100 WBC (Bld)6.2 %Normal1.7-12.0[facility] Comment on above:Performed By: #### CBC #### [facility] [address] [place] [address] Dr. Jemima VallesUT #3.1 103/ulNormal1.4-6.5The [facility] HospitalComment on above:Performed By: #### CBC #### [facility] [address] [place] [address] Dr. Jemima Vallesutrophils/100 WBC (Bld)44.3 %Wtwmpy27.0-75.0The [facility] HospitalComment on above:Performed By: #### CBC #### [facility] [address] [place] [address] Dr. Jemima PaulPlatelet mean volume (Bld) [Entitic vol]8.3 fLCritically low 9.5-13.5The [facility] HospitalComment on above:Performed By: #### CBC #### [facility] [address] [place] [address] Dr. Jemima PaulPLT288 103/ncPjkmwu882-853Rsx [facility] HospitalComment on above: Performed By: #### CBC #### [facility] [address] [place] [address] Dr. Jemima PaulRBC4.09 106/ulCritically low4.20-5.40The [facility] HospitalComment on above:Result Comment: TEAR DROP CELLS 3+, MACROCYTOSIS 3+Performed By: #### CBC #### [facility] [address] [place] [address] Dr. Jemima AyonBC7.0 103/ulNormal4.0-11.0The [facility] HospitalComment on above: Performed By: #### CBC #### [facility] [address] [place] [address] Dr. Jemima PaulCT ABD/PELV W CONon 73-85-0685AT ABD/PELV W CONEXAMINATION: CT ABD/PELV W CON HISTORY: GENERALIZED ABDOMINAL [...] Electronically authenticated by: HELENA ANDERSEN Date: 2022-03-17 00:46Barnesville HospitalPROF CHEM 8 (BAS METB)on 89-55-0823Ogote gap [Moles/Vol]14.6 mmol/LNormalFirelands Regional Medical CenterComment on above:Performed By: #### BMP #### [facility] [address] [place] [address] Dr. Jemima PaulCalcium [Mass/Vol]8.6 mg/dLNormal8.5-10.1[facility] Comment on above:Performed By: #### BMP #### [facility] [address] [address] [address] Jemima PaulChloride [Moles/Vol]100 mmol/THvujrg73-419AouFirelands Regional Medical Center Comment on above:Performed By: #### BMP #### [facility] [address] [place] [address] Dr. Jemima PaulCO2 [Moles/Vol]24.3 mmol/YEkrfze98.0-32.0[facility] Comment on above:Performed By: #### BMP #### [facility] [address] [address] [address] Jemima PaulCreatinine [Mass/Vol]0.99 mg/dLNormal0.55-1.02The [facility] Medical Centerment on above:Performed By: #### BMP #### [facility] [address] [address] [address] Onofre ChangEGFR-AF VENEZUELAN>60Normal>=60The [facility] HospitalComment on above:Performed By: #### BMP #### [facility] [address] [address] [address] Onofre ChangEGFR-NON AF CDFKAWYA90 mL/min/1.83x4Xevzta>=60The [facility] HospitalComchelsea hospital on above:Performed By: #### BMP #### [facility] [address] [address] [address] Jemima PaulGlucose [Mass/Vol]108 mg/dLCritically eoyw85-594Qjq [facility] Centerment on above:Performed By: #### BMP #### [facility] [address] [address] [address] Jemima PaulPotassium [Moles/Vol]3.9 mmol/LNormal3.5-5.1[facility] Comment on above:Performed By: #### BMP #### [facility] [address] [address] [address] Jemima PaulSodium [Moles/Vol]135 mmol/LCritically hgk221-518Pjb [facility] Medical Centerment on above:Performed By: #### BMP #### [facility] [address] [address] [address] Jemima PaulUrea nitrogen [Mass/Vol]11.0 mg/dLNormal7.0-18.0The [facility] on above:Performed By: #### BMP #### [facility] [address] [address] [address] Jemima PaulUrea nitrogen/Creatinine [Mass ratio]11.1 mg/mgNormalThe [facility] HospitalComment on above:Performed By: #### BMP #### [facility] [address] [place] [address] Dr. Jemima Rouse Joint Arthro/Inj: R glenohumeralCselect medical specialty hospital [facility] c[facility]innatiand Clinic Vital Signs Date TimeVital SignValuePerforming SdtsahyroWlhqiftt61-93-6227 18:35-0400Body ouhtfzhbwpk50.88 [degF]Kaylinn Dokken [address] [place], [place] 5975005-11-2025 18:35-0400 Diastolic blood eithvjqj69 mm[Hg]Kaylinn Dokken [address] [place], [place] 5975005-11-2025 18:35-0400Heart rate97 /minKaylinn Dokken [address] [place], [place] 5975005-11-2025 18:35-0400 Respiratory rate18 /minKaylinn Dokken [address] [place], [place] 5975005-11-2025 18:35-5816DuD3% (BldA) [Mass fraction]97 %Kaylinn Dokken [address] [place], [place] 5975005-11-2025 18:35-0400 Systolic blood upqlssfz514 mm[Hg]Kaylinn Dokken [address] [place], [place] 5975003-03-2024 19:43-0500Body bzmukocnsfl18.42 [degF]Antonio Lenard [address] [place], [place] 8110103-03-2024 19:43-0500 Diastolic blood mxieanzh54 mm[Hg]Antonio Lenard [address] [place], [place] 8110103-03-2024 19:43-0500Heart oagk244 /minNoah Lenard [address] [place], [place] 8110103-03-2024 19:43-0500 Respiratory rate16 /minNoah Lenard [address] [place], [place] 8110103-03-2024 19:43-0232QiY2% (BldA) [Mass fraction]95 %Antonio Weinberg [address] [place], [place] 8110103-03-2024 19:43-0500 Systolic blood rvomaeml988 mm[Hg]Antonio Weinberg [address] [place], [place] 8110101-19-2024 18:29-0500 Diastolic blood mwlknnig42 mm[Hg]Bashir Loera [address] [place], [place] 5975001-19-2024 18:29-0500Heart rate71 /minBashir Loera [address] [place], [place] 5975001-19-2024 18:29-0500Mean blood ygiemzde077 mm[Hg]Bashir Loera [address] [place], [place] 5975001-19-2024 18:29-0500 Respiratory rate18 /minBashir Loera [address] [place], [place] 5975001-19-2024 18:29-5727GvP7% (BldA) [Mass fraction]97 %Bashirolinda Loera [address] [place], [place] 8110101-19-2024 18:29-0500 Systolic blood umpcvsba587 mm[Hg]Bashir Loera [address] [place], [place] 5975001-19-2024 15:52-0500Body qnaeeahwinf13.24 [degF]Bashir Loera [address] [place], [place] 8110101-19-2024 15:52-0500 Diastolic blood mm[Hg]Bashir Loera [address] [place], [place] 8110101-19-2024 15:52-0500Heart rate88 /minBashir Loera [address] [place], [place] 8110101-19-2024 15:52-0500 Respiratory rate18 /minBashir Loera [address] [place], [place] 8110101-19-2024 15:52-4701FtZ2% (BldA) [Mass fraction]96 %Bashir Loera [facility]01-19-2024 15:52-0500 Systolic blood nxfyjwwg037 mm[Hg]Bashir Loera [facility]07-06-2023 10:59-0400Body xyothj720.9 cmAlllatrice Louebe PA-C Work Phone: [facility]07-06-2023 10:59-0400Body miejqb78.97 kgVerónica Skebe PA-C Work Phone: [facility]05-09-2023 11:00-0400Heart rate89 /min Nai Jenningse [address] [place], [place] 8110105-09-2023 11:00-0400 Respiratory rate16 /minNai Ramires [address] [place], [place] 8110105-09-2023 10:04-0400 Hourly RoundingNai Keyla [address] [place], [place] 8110105-09-2023 10:04-0400 Promise to ReturnJovilla Keyla [address] [place], [place] 8110105-09-2023 10:03-0400 Diastolic blood ndkwdcpi28 mm[Hg]Nai Jenningse [address] [place], [place] 8110105-09-2023 10:03-0400Heart rate91 /minNai Keyla [address] [place], [place] 8110105-09-2023 10:03-0400Mean blood mm[Hg]Nai Ramires [address] [place], [place] 8110105-09-2023 10:03-0400 Respiratory rate20 /minJovilla Keyla [facility]05-09-2023 10:03-8312HrI6% (BldA) [Mass fraction]99 %Nai Ramires [address] [place], [place] 8110105-09-2023 10:03-0400 Systolic blood xfkhdbmi912 mm[Hg]Nai Ramires [address] [place], [place] 8110105-09-2023 09:40-0400Body oekmaabsgfa68.24 [degF]Nai Ramires [address] [place], [place] 8110105-09-2023 09:40-0400 Diastolic blood ogsoepaf88 mm[Hg]Nai Ramires [address] [place], [place] 8110105-09-2023 09:40-0400Heart rate94 /minNai Ramires [address] [place], [place] 8110105-09-2023 09:40-0400 Hourly RoundingNai Ramires [address] [place], [place] 8110105-09-2023 09:40-0400 Promise to ReturnNai Ramires [address] [place], [place] 8110105-09-2023 09:40-0400 Respiratory rate18 /minNai Ramires [address] [place], [place] 8110105-09-2023 09:40-9814UgC8% (BldA) [Mass fraction]98 %Nai Ramires [address] [place], [place] 8110105-09-2023 09:40-0400 Systolic blood yzbczngx685 mm[Hg]Nai Ramires [address] [place], [place] 8110102-18-2023 17:25-0500 Hourly RoundingNate Gavin [facility]02-18-2023 17:25-0500 Promise to ReturnNate Gavin [facility]02-18-2023 16:58-0500Heart rate70 /minNate Gavin [facility]02-18-2023 16:58-8382DnQ7% (BldA) [Mass fraction]97 %Nate Gavin [address] [place], [place] 3733902-18-2023 16:57-0500Body edepwewahtx89.52 [degF]Nate Gavin [address] [place], [place] 3477302-18-2023 16:57-0500 Diastolic blood dqersvnn71 mm[Hg]Nate Gavin [address] [place], [place] 3477302-18-2023 16:57-0500Mean blood tbavjwfi30 mm[Hg]Nate Gavin [address] [place], [place] 3477302-18-2023 16:57-0500 Systolic blood cptdxdoq404 mm[Hg]Nate Gavin [address] [place], [place] 3733902-18-2023 16:25-0500 Hourly RoundingNate Gavin [address] [place], [place] [id number] 16:25-0500 Promise to ReturnNate Gavin [address] [place], [place] 3477302-18-2023 16:00-0500 Respiratory rate15 /minNate Gavin [address] [place], [place] 3477302-18-2023 15:16-0500 Hourly RoundingNate Gavin [address] [place], [place] 3477302-18-2023 15:16-0500 Promise to ReturnNate Gavin [address] [place], [place] 3477302-18-2023 11:45-0500Body snkubpeabxx52.34 [degF]Nate Gavin [address] [place], [place] 3477302-18-2023 11:45-0500 Diastolic blood mhlucroa20 mm[Hg]Nate Gavin [address] [place], [place] 3477302-18-2023 11:45-0500Heart rate79 /minNate Gavin [address] [place], [place] 3477302-18-2023 11:45-0500Mean blood onvndtsv31 mm[Hg]Nate Gavin [address] [place], [place] 3477302-18-2023 11:45-0500 Respiratory rate14 /Nick Gavin [address] [place], [place] 3477302-18-2023 11:45-3180SbZ8% (BldA) [Mass fraction]96 %Nate Gavin [address] [place], [place] 3477302-18-2023 11:45-0500 Systolic blood oytyhkbt923 mm[Hg]Nate Gavin [address] [place], [place] 3477302-18-2023 11:35-0500 Diastolic blood byxeiqin68 mm[Hg]Nate Gavin [address]02-18-2023 11:35-0500Heart rate61 /Nick Gavin [address] [place], [place] 3477302-18-2023 11:35-0500Mean blood hrapcebc32 mm[Hg]Nate Gavin [address] [place], [place] 3477302-18-2023 11:35-0500 Respiratory rate16 /Nick Gavin [address] [place], [place] 3477302-18-2023 11:35-0500 Systolic blood cipejodg05 mm[Hg]Nate Gavin [address] [place], [place] 3477302-18-2023 11:30-0500Mean blood ptaaktan81 mm[Hg]Nate Gavin [address] [place], [place] 3477302-18-2023 11:30-0500 Respiratory rate18 /Nick Gavin [address] [place], [place] 3477302-18-2023 11:20-0500Body oqdqphemqin53.34 [degF]Nate Gavin [address] [place], [place] 3477302-18-2023 11:15-0500 Respiratory rate11 /Priscilladaphne Romaine [facility]02-18-2023 11:10-0500 Respiratory rate13 /Nick Gavin [facility]02-18-2023 07:01-0500Body unqiyyqczka34.8 [degF]Nate Gavin [facility]02-18-2023 07:01-0500Heart rate73 /Nick Gavin [address] [place], [place] 3477302-18-2023 06:46-0500Body tckdfvrivwq25.8 [degF]Nate Gavin [facility]02-18-2023 06:46-0500Heart rate69 /Nick Gavin [address] [place], [place] 3477311-03-2022 10:58-0400Body hmzwti908.9 Doris Cabello MD Work Phone: 1(216)[phone] [place], [place] 0192311-03-2022 10:58-0400Body temperature 97.81 [degF]Ronan Cabello MD Work Phone: 1(216)733-[address] [place], [place] 4977611-03-2022 10:58-0400Body xmgxke32.15 kgRonan Cabello MD Work Phone: 1(216)722-[address] [place], [place] 0192311-03-2022 10:58-0400Diastolic blood nehwrlqg25 mm[Hg]Ronan Cabello MD Work Phone: 1(216)298-[address] [place], [place] 0192311-03-2022 10:58-0400Heart rate90 /min Ronan Cabello MD Work Phone: [facility] HospitalXlcefk53-39-6797 10:58-0400Respiratory rate 12 /minRonan Cabello MD Work Phone: XC[facility] HospitalRwzpcm46-26-1925 10:58-0400Systolic blood nbpvcyqn994 mm[Hg]Ronan Cabello MD Work Phone: SC[facility] HospitalIckubq80-24-8293 14:00-0400Body jtcbdo091.4 cmDavid Hykes Other [employer] Other 08-10-2022 14:00-0400Body mass index (BMI) [Ratio] 25.97 kg/y1Zaxzojavier Vasquez Other [employer] Other 08-10-2022 14:00-0400Body ljamgf30.33 kgDajavier Vasquez Other [employer] Other 08-10-2022 14:00-0400Diastolic blood jfsuupgb61 mm[Hg] Gale Vasquez Other [employer] Other 08-10-2022 14:00-0400Respiratory rate20 /minDjuan jose Vasquez Other [employer] Other 08-10-2022 14:00-0400Systolic blood cddagfrs284 mm[Hg] Gale Vasquez Other [employer] Other 07-07-2022 12:03-0400Body ufijpswaejy38.06 [degF] [facility]07-07-2022 12:03-0400Diastolic blood mm[Hg][facility]07-07-2022 12:03-0400Heart soxh038 /[facility] 03-31-2022 12:03-0400Respiratory rate18 /[facility]07[facility]07-2022 12:03-0320UtG7% (BldA) [Mass fraction]100 %[facility]07-07-2022 12:03-0400Systolic blood eqknlfuq282 mm[Hg][facility]04-09-2022 19:52-0400Diastolic blood igptpuvx55 mm[Hg]Kofi Castellano [address]04-09-2022 19:52-0400Heart rate97 /minKofi Castellano [address] [place], [place] 8110104-09-2022 19:52-0400 Respiratory rate18 /minKofi Castellano [address] [place], [place] 5975004-09-2022 19:52-3285GpL8% (BldA) [Mass fraction]97 %Kofi Castellano [address]04-09-2022 19:52-0400 Systolic blood ghsucptz786 mm[Hg]Kofi Castellnao [address] [place], [place] 5975004-09-2022 16:50-0400Body sepjfgmdkvu90.42 [degF]Kofi Castellano [address] [place], [place] 5975004-09-2022 16:50-0400 Diastolic blood usvdmkmw98 mm[Hg]Kofi Castellano [address] [place], [place] 5975004-09-2022 16:50-0400Heart tyyz357 /minKofi Castellano [address] [place], [place] 8110104-09-2022 16:50-0400 Respiratory rate18 /minKofi Castellano [address] [place], [place] 8110104-09-2022 16:50-0569JuI4% (BldA) [Mass fraction]97 %Kofi Castellano [address] [place], [place] 8110104-09-2022 16:50-0400 Systolic blood bbupxxat245 mm[Hg]Kofi Castellano [address] [place] [address] Encounters Encounter DateEncounter TypeCare ProviderFacilityStart: 35-22-0794clikahxvhzTrsw C LinkFacility:FM MilanStart: 07-31-2025 End: 65-41-9293drgulriucqQbdj C LinkFacility:FTMCStart: 07-11-2025 End: 27-10-6755yzodaocuetPW Adam C LinkFacility:[facility]art: 07-11-2025 End: 82-30-1849Xbugqzm encounter procedureAdam C Link [phone]-ChzifKettering Health [facility] Start: 07-02-2025 End: 32-51-1256aawfkebpfsSalb C LinkFacility:FTMCStart: 06-27-2025 End: 23-64-4835oyeqardpqoQDC-C MAIA SHEPARDFacility:FTMCStart: 06-27-2025 End: 51-07-8544zpugnvbaviYNY-C MAIA SHEPARDFacility:[facility]: 06-27-2025 End: 85-38-1704Sdniziw encounter procedureMAIA SHEPARD [phone]-WfdkvKettering Health [facility] Start: 06-26-2025 End: 71-94-7907wzkzhnnjhcTN Adam C LinkFacility:CD:[id number]: 06-25-2025 End: 19-14-8324nfvyygttrpAKEKSE R CIERSEZWSKIFacility:[facility]: 06-25-2025 End: 31-62-3936Elqxctk encounter procedureMAIA SHEPARD [phone]-BzvgbKettering Health [facility] Start: 06-23-2025 End: 95-83-4326ykunusrogbWvsojtp A BRESLINFacility:FTMCStart: 06-23-2025 Emergency department patient visitDO Antonio WeinbergFacility:FTMCStart: 06-23-2025 End: 58-54-9636kftoihkhohYS Adam C LinkFacility:CD:[id number]: 06-20-2025 End: 32-84-9921bvdwwazgvtEnkpzbe A BRESLINFacility:FTMCStart: 06-20-2025 Emergency department patient visitMani PalmerFacility:FTLAN[facility]OP[facility] CENTERtart: 06-18-2025 End: 19-42-5000iragwkedtxEIS-C MAIA SHEPARDFacility:[facility]art: 06-18-2025 End: 63-84-6113Rnnnvsa encounter procedureMAIA SHEPARD [phone]-WfcriKettering Health [facility] Start: 06-13-2025 End: 06-86-0014tcbtzffpwkNchc C LinkFacility:[facility]: 06-13-2025 End: 27-08-2431Tuyortu encounter procedureAdam C Link [phone]-OiliyKettering Health [facility] Start: 06-10-2025 End: 91-39-9571equoaqytrlAK German C LinkFacility:[facility]: 06-10-2025 End: 86-11-4892Nfrzvli encounter procedureAdam C Link [phone]-ObeatKettering Health [facility] Start: 06-05-2025 End: 39-79-6545Rxqwiddsc department patient visitMani Palmer [facility]: 06-03-2025 End: 18-17-2728ogpmojfdqdLAXT NONEFacility:FTMCStart: 05-28-2025 End: 88-62-8474rciebbmigwJgxjlcv A. MouchliFacility:Heidi DHStart: 05-28-2025 End: 31-75-0865Ekwpqlt encounter procedureBeth Quinones [phone]-BtatbKettering Health [facility] Start: 63-86-5562kqrugunrdbPzdz LinkFacility:Radha Garibay DHStart: 05-23-2025 End: 82-94-4345Kefp adult monitoring check doneAdam C Link [phone]-FnsrrKettering Health [facility] Start: 05-23-2025 End: 80-56-5759waqlzylhiqAonn C LinkFacility:[facility]Start: 05-23-2025 End: 72-70-0641Sifclke encounter procedureAdam C Link [phone]-MshciKettering Health [facility] Start: 05-02-2025 End: 89-15-1801kahzoesmnuRefy C LinkFacility:[facility] HospitalStart: 05-02-2025 End: 78-89-6445Kgluuyy encounter procedureAdam C Link [phone]-AzuohKettering Health [facility] Start: 22-17-6068vgkvrpmjjcRqnr LinkFacility:[facility] Start: 04-22-2025 End: 28-90-0078yhujulykgyYbhe C LinkFacility:[facility] HospitalStart: 04-22-2025 End: 67-83-7485Qvsdkfm encounter procedureAdam C Link [phone]-HwgopKettering Health [facility] Start: 04-21-2025 End: 43-59-6442aidumznoeqLomv C LinkFacility:[facility]ITALtart: 22-94-4301otzobpgyvi Jaspreet CortezFacility:[facility]ertart: 03-18-2025 End: 29-68-0250aqbydbbuzrLkdh C LinkFacility:[facility] HospitalStart: 03-18-2025 End: 57-66-2853Knvgism encounter procedureAdam C Link [phone]-VxakzKettering Health [facility] Start: 03-04-2025 End: 49-60-0610Czznmagfjf OrdersAdam C Link DO Work Phone: Referring PhysicianComment on above:C. difficile enteritis (Primary Dx)Start: 02-27-2025 End: 83-25-0398qodvdlineaUbuj C LinkFacility:FM MilanStart: 02-27-2025 End: 80-63-4736Hgztoig encounter procedureAdam C Link [phone]-VxwfdK[facility]tering Health [facility] Start: 02-20-2025 End: 78-26-9813kaasdtdngoWMIASelect Medical Specialty Hospital - Columbustart: 02-05-2025 End: 46-18-0090xyguavaegyNSCZSelect Medical Specialty Hospital - Columbustart: 02-04-2025 End: 85-32-6057xomkmepjlgSZQ MARRY Yury FRANCOISEFacility:FT BellevueStart: 02-02-2025 End: 40-65-2172Mvinhbvgi department patient visitNash Neal [facility] Start: 12-21-2024 End: 16-12-7711LarknbRephn M Ruggles MD Work Phone: NOJC NE FMComment on above:Other constipation; Generalized abdominal painStart: 11-16-2024 End: 66-65-4376IvdzdtTnnwx M Ruggles MD Work Phone: NOQP NE FMComment on above:Other osteoporosis without current pathological fracture ([facility])Start: 07-19-2024 End: 20-51-9883vtfysdnrwbCCCJKTT [facility] Start: 11-26-2023 End: 76-05-8499Xgvehmwyr department patient visitAntonio Weinberg [facility] Start: 10-17-2023 End: 23-77-2408rtsarehtamGDAQDKevin Rowan AvailableStart: 10-13-2023 End: 05-23-1052Zbypauzkb department patient visitBashir Loera [facility] Start: 10-13-2023 End: 53-47-2852znrfhtkcguLKOXAPOK J HARTNot AvailableStart: 08-30-2023 End: 15-93-6661Gyqffnn encounter procedureDAVID LEON [facility] Start: 08-29-2023 End: 67-60-5878nvdgnhwghrNJDSPSST J HARTNot AvailableStart: 05-31-2023 End: 13-23-5026Ufkdcej encounter Deondre Medina [facility] Start: 05-31-2023 End: 39-50-8188Okkqwqqvt Result EncounterGracy Medina MD Work Phone: noms External Department UnsolicitedStart: 05-31-2023 End: 61-80-0147Qpylolbnd Result EncounterGracy Medina MD Work Phone: noms External Department UnsolicitedStart: 05-11-2023 Telephone encounterSharita Myers MD Work Phone: [facility] InstituteComment on above:Schedule SurgeryPatient Question (Offering patient surgical date.)Start: 04-10-2023 End: 83-79-0665Atpaudcgn Result EncounterGeneric External Data ProviderNOMS External Department UnsolicitedStart: 04-10-2023 End: 84-94-6993Bgajrqgge Result EncounterGeneric External Data ProviderNOMS External Department UnsolicitedStart: 04-10-2023 End: 03-59-4676lutjszzdzjUVKEP RUGGLESFacility:[facility] HospitalStart: 04-10-2023 End: 90-98-1708Nusucxa encounter Rolo Myers MD Work Phone: [facility] HOSPITALComment on above: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)Start: 03-30-2023 End: 86-06-3832jberyplyynYe [facility] EnterpriseStart: 03-30-2023 End: 79-96-9420Jzdrcpf encounter procedureVerónica Duarte PA-C Work Phone: OrthopaedicsComment on above: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); Incomplete tear of right rotator cuff, unspecified whether traumatic; Biceps tendonitis on rightStart: 03-27-2023 End: 07-35-7066Qbahhmfen Result EncounterGracy Medina MD Work Phone: noms External Department UnsolicitedStart: 03-27-2023 End: 79-11-2942Cignalonb Result EncounterGracy Medina MD Work Phone: noms External Department UnsolicitedStart: 03-27-2023 End: 55-08-8518hvgujmrurjRGEJVwopfeaq:[facility] Hospitaltart: 03-27-2023 End: 84-77-8262Rellura encounter procedureAureliano Vann DPM Work Phone: PodiatryComment on above: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, subsequent encounter (Primary Dx); Osteoporosis, unspecified osteoporosis type, unspecified pathological fracture presence; PAD (peripheral artery disease) (HCC); Allodynia; Nicotine use disorder, F17.2Start: 03-27-2023 End: 80-02-2501Hmgrqtvxfr hospital visit by physicianOrth General Xray A21 RadiologyComment on above:Pain [R52]Start: 78-79-1762Wbruvu OnlyNo One (Historical)Referring PhysicianComment on above:Pain (Primary Dx)Start: 58-86-9239cefkoxviaiXNIXA PARKERFacility:I2Kzwhg: 02-06-2023 End: 42-23-1849Iuvarfs encounter procedureNate Gavin [facility] Start: 01-31-2023 End: 12-81-4609Rlbosibwh department patient visitNai Ramires [facility] Start: 01-11-2023 End: 39-06-5349rktbrtbssaCGANYJJ PROVIDERFacility:METROHealthStart: 12-13-2022 End: 05-93-1408jkfvhusocvRhvntjw Ditty Other [employer] Other Start: 04-22-5056Lrcfjswyr encounterCameromook Mena Palliative CareStart: 11-15-2022 End: 46-62-0038kgzroyjfabTG TK LEVI .Facility:W6Zsxwq: 11-12-2022 End: 59-81-2415OdlyonsxwhnPpjrp A Brown [facility] Start: 08-02-2022 End: 21-69-3857qubjenkjstDR MISTY BENITEZ .Facility:Z6Qzcty: 07-28-2022 End: 23-42-2293okjlhyiiumESAZJ RUGGLESFacility:[facility] Hospitaltart: 07-28-2022 End: 05-78-4824Uqaljqv encounter procedureLuctre Cabello MD Work Phone: General SurgeryComment on above:Incisional hernia, without obstruction or gangrene (Primary Dx)Start: 57-81-0309kvaqcdgildIQ AGUS LEON .Facility:C7Klfrs: 05-11-2022 End: 94-36-1273wvajuuzgfxUGXQB L HYKES JRFacility:Z4Qguvh: 05-04-2022 End: 08-72-3171epqidvwfonOxocl Hykes Other [employer] Other Start: 55-72-8599Ydkria outpatient visit 25 minutes Gale Sheehan GastroenterologyStart: 04-18-2022 End: 38-40-5511gqucqfkorzUYMDVW RUGGLESFacility:K3Dyvlz: 03-31-2022 End: 27-89-7856Evdaiquuu department patient visitAstrit Meaghan RosenPrem[facility] Health At[facility] Start: 03-24-2022 End: 06-98-8883Oanmtgm encounter procedureGracy Medina [facility] Start: 03-16-2022 End: 47-52-3614zjqjrpclqnYAAXHR RUGGLESFacility:J1Djuhc: 01-01-2022 End: 32-90-4809Enyypfxvp department patient visitTim Samuel [facility] Start: 03-29-2018 End: 18-93-4126IhgogissbeZINFVMC PHYSICIANFacility:[facility] Procedures DateProcedureProcedure DetailPerforming ClinicianStart: 43-25-2457XS FOOT 3+ VIEWS Sheldon Medina MD Work Phone: start: 63-13-9471Dpbtczumzf examination foot 2 views Gracy Medina MD Work Phone: start: 40-42-4569Qt upper extremity w/o contrast materialGeneric External Data ProviderStart: 83-19-9899Zuuheulsynykxe aspir&/inj major jt/bursa w/o usAllyson Lj Duarte PAPritiC Work Phone: Start: 66-60-8600Thjuj ankle complete minimum 3 views Aureliano Vann DPM Work Phone: Start: 14-46-4078QM ANKLE 3V AP/LAT/OBL LTGracy Medina MD Work Phone: start: 76-52-0960MrynaqybbluRwnod Ruggles MD Work Phone: start: 79-59-5865HjayazbstykJybku Ruggles MD Work Phone: appendectomyTim Samuel [phone]-Rikzhkv x2Tim Samuel ColonoscopyTim Samuel HysterectomyTim Samuel Repair of recurrent inguinal herniaAdam Aguila Comment on above:multiplespine surgery for scoliosisKofi Castellano Plan of Treatment DateCare ActivityDetailAuthorStart: 36-69-2593Rdbxk microalbumin profile DTaP,Tdap,Td Vaccine (3 - Td or Tdap)[facility]art: 31-51-7475Pkxfwbvxh for malignant neoplasm of colonNOMS HealthcareStart: 75-53-8840jwwnkkgtyi AmbulatoryFacility:FM MilanStart: 44-23-2812Xdxukbdbc vaccinationMain Campus Medical Centertart: 29-84-4297Gavibqvg Vaccine (1 of 2)Shingrix Vaccine (1 of 2) [facility]ertart: 31-43-4106Adbzb-19 Vaccine ( season)Covid-19 Vaccine ( season)[facility]ertart: 92-62-6423Qaqofdmfh vaccinationInfluenza Vaccine (#1)[facility] LawnStart: 90-19-6967MLYARGGD SCREEN DIABETES SCREENMain Campus Medical Centertart: 31-30-3249Suzozkef ScreeningDiabetes ScreeningMain Campus Medical Centertart: 09-29-2023Medicare Annual Wellness (AWV)Medicare Annual Wellness (AWV)[facility] LawnStart: 81-00-0094Ypihicuch vaccination [facility]ertart: 70-22-2303Jprgnkorc for malignant neoplasm of breast MammogramNOMS HealthcareStart: 16-87-5800RVFNXOYPTE ASSESSMENTDEPRESSION ASSESSMENTMain Campus Medical Centertart: 88-62-5877Hdwrfappd vaccinationINFLUENZA (#1) [facility]ertart: 46-51-6407HFZPELUHKL ASSESSMENTDEPRESSION ASSESSMENT [facility]ertart: 87-26-9082GBDOV-19 VACCINE (3 - Booster for Pfizer series)COVID-19 VACCINE (3 - Booster for Pfizer series)[facility]art: 34-26-7280QNMVM-19 VACCINE (3 - Pfizer series)COVID-19 VACCINE (3 - Pfizer series)[facility]art: 92-90-4795FSWXDPECHHNQ (2 - PCV)PNEUMOCOCCAL (2 - PCV)[facility]art: 39-97-8096Rstowlustirm Vaccine: 50+ (2 of 2 - PCV) Pneumococcal Vaccine: 50+ (2 of 2 - PCV)[facility]: 2019 COLOGUARD (FIT-DNA)COLOGUARD (FIT-DNA)[facility]: 2019 ColonoscopyCOLONOSCOPYMain Campus Medical Centertart: 75-38-1173NGTMPSGJZQ CANCER SCREENINGCOLORECTAL CANCER SCREENINGMain Campus Medical Centertart: 11-07-3624WS COLONOGRAPHYCT COLONOGRAPHYMain Campus Medical Centertart: 07-26-0737QYZNX OCCULT BLOOD FECAL OCCULT BLOODMain Campus Medical Centertart: 12-24-1207Gkcun panelLipid Screening [facility]ertart: 77-94-5980CVPIS SCREENLIPID SCREENMain Campus Medical Centertart: 82-55-2867Llfauhcbv for malignant neoplasm of colonMain Campus Medical Centertart: 35-20-7477PMEOQTYCVBQGKNROXMSYKXATNKWhpnibmak ClinicStart: 67-21-0732Qgqgrgiwnlr MAMMOGRAMMain Campus Medical Centertart: 79-83-2866Euxukbmih for malignant neoplasm of breastMammogram ScreeningMain Campus Medical Centertart: 49-27-7338ROJ TESTINGHPV TESTING [facility]ertart: 86-82-3945IZC TESTINGPAP TESTINGMain Campus Medical Centertart: 46-07-9986Fwiplmimu for malignant neoplasm of cervixCervical Cancer Screening [facility]ertart: 68-40-4899Ovrumggwy B Vaccine (1 of 3 - 19+ 3-dose series)Hepatitis B Vaccine (1 of 3 - 19+ 3-dose series)[facility]: 35-96-9438Orvgt microalbumin profileDTAP,TDAP,TD (1 - Tdap)[facility] Start: 40-17-5321Zfijqhb ScreeningAnxiety ScreeningMain Campus Medical Centertart: 30-26-4521Xsxuosmwmo ScreeningDepression ScreeningMain Campus Medical Centertart: 24-27-8977YLPGKWIDX B (1 of 3 - 3-dose series)HEPATITIS B (1 of 3 - 3-dose series)[facility] Centertart: 15-22-1753Vavxznsck for malignant neoplasm of colonCox Walnut Lawn End: 64-30-9704MIX LEG UNL VAS LABPVR LEG UNL VAS LAB Vascular Lab Routine PAD (peripheral artery disease) (HCC) 1 Occurrences starting 03/27/2023 until [facility]24[facility] Work Phone: Comment on above:1 Occurrences starting 03/27/2023 until 03/27/2024 End: 20-97-7160VT ANKLE GENERAL 3V AP/LAT/OBL LEFTXR ANKLE GENERAL 3V AP/LAT/OBL LEFT Radiology Routine Pain 1 Occurrences starting 03/08/2023 until 04/06/2024 [facility] Work Phone: Comment on above:1 Occurrences starting 03/08/2023 until 04/06/2024 End: 94-24-9148UL SHOULDER GENERAL 3V OR MORE AP/TRUE AP/OTHER RIGHTXR SHOULDER GENERAL 3V OR MORE AP/TRUE AP/OTHER RIGHT Radiology Routine Avascular necrosis of righthumeral head (HCC) 1 Occurrences starting 04/10/2023 until 05/09/2024 [facility] Work Phone: Comment on above:1 Occurrences starting 04/10/2023 until 05/09/2024XR SHOULDER GENERAL 3V OR MORE AP/TRUE AP/OTHER RIGHTXR SHOULDER GENERAL 3V OR MORE AP/TRUE AP/OTHER RIGHT Radiology Routine Avascular necrosis of righthumeral head (HCC) 04/10/2023 12:24 PM [facility] Work Phone: [facility] Immunizations Immunization DateImmunizationNotesCare FkypfubnCiagfrul50-20-5971voedjllpeo, tetanus toxoids and pertussis vaccineGracy Medina MD Work Phone: [facility] LawnJbzjlotiyb87-12-4375lykfupd toxoid, reduced diphtheria toxoid, and acellular pertussis vaccine, adsorbedGracy Medina MD Work Phone: [facility] LawnZnbgqxjcmr10-58-9570KSPBC-58 original vaccine, age 12+ yr, monovalent ([employer] - PURPLE TOP)Ronan Cabello MD Work Phone: JC[facility] Pointe HospitalAhjjay38-75-4949CVTIB-33 original vaccine, age 12+ yr, monovalent ([employer] - PURPLE [facility])Ronan Cabello MD Work Phone: AC[facility] HospitalHwcqyy94-61-4713tjymzmaxdwml polysaccharide vaccine, 23 valentRonan Cabello MD Work Phone: ZC[facility] Clinic [facility] Pointe HospitalHemepk26-92-3584ziwrbtmr influenza, intradermal, preservative freeRonan Cabello MD Work Phone: Mselect medical specialty hospital - cincinnatiand Ppwxfi65-74-3418ejtsthkul virus vaccine, unspecified formulationGracy Medina MD Work Phone: [phone]-TtwyfWood County Hospital 08-09-5072svdwdljqz virus vaccine, unspecified formulationRonan Cabello MD Work Phone: VC[facility] HospitalYtuvat09-22-7250afpmcmstr, unspecified formulationAdam Link [phone]-GjhrmWood County Hospital 69-27-3539erycyyrfv virus vaccine, unspecified formulationAdam Link [phone]-KrgawWood County Hospital 61-30-6858qwoxbcfvf, seasonal, injectableRonan Cabello MD Work Phone: [facility] Payers DatePayer CategoryPayerPolicy ID2023Self-pay2022Medicaid [id number] 2015Medicare [id number] Health Insurance [id number] [id number]72 [id number] 2.16.840.1.696992.3.57[id number] 2.16.840.1.360535.3.57[id number] 2.16.840.1.457338.3.57[id number] 2.16.840.1.733006.3.57[id number] 2.16.840.1.998824.3.57[id number] 2.16840.1.466468.3.57[id number] 2.16840.1.998988.3.579.2.40046-93-2107Osbcfch9671957 2.840.1.102308.3.579.2.766495-75-1542Gjgfcyl2655605 2.16.840.1.543071.3.579.2.014249-85-2166Fbalbmr947157 2.16.840.1.934001.3.579.2.256246-66-6282Megnpun55297722 2.16840.1.366736.3.579.2.13386-21-4322Avegsko51684980 2.840.1.187203.3.579.2.91796-26-5899Ommwqqt85423982 2.16.840.1.110817.3.579.2.22582-88-2026Yxovcwr29448144 2.16.840.1.899038.3.579.2.440 1912Cgdhwxi77865245 2.16.840.1.211235.3.579.2.65253-89-5348Gpbnsgc17457057 2.16.840.1.501019.3.579.2.08976-42-5681Nntfbsh59446969 2.16.840.1.375599.3.579.2.77498-93-4932Aqqtlqn64194367 2.16.840.1.890788.3.579.2.14386-09-5034Joozafo77173270 2.16.840.1.728973.3.579.2.30987-35-1394Lvjbyoq29755507 2.16.840.1.072518.3.579.2.05553-52-5541Skzxlsb87687874 2.840.1.673380.3.579.2.05550-79-9063Rnojmuh24126350 2.840.1.023472.3.579.2.53760-89-6854Lzisgyc77952252 2.840.1.571783.3.579.2.04685-70-5322Ntuxeic66237329 2.0.1.390879.3.579.2.56749-80-9883Msrimrs84594475 2.16.840.1.578973.3.579.2.32305-96-0045Ztxltny53707431 2.840.1.546206.3.579.2.45674-45-5621Obqtbuy66094157 2.16.840.1.724478.3.579.2.13616-35-2867Lcxmvtd51933248 2.16840.1.295688.3.579.2.32496-39-3407Vkvcczq77703280 2.16.840.1.898470.3.579.2.54319-03-4376Gxrrgzq79411943 2.16840.1.243623.3.579.2.27003-85-1010Zjvcmxq28840917 2.16.840.1.477263.3.579.2.23006-57-3473Mpjacgy47207176 2.16.840.1.845439.3.579.2.59484-94-0296Gogtarr30697187 2.16.840.1.297995.3.579.2.98171-11-1222Edmuzde51286269 2.16.840.1.696910.3.579.2.26251-50-7941Ccvilry14580564 2.16.840.1.623189.3.579.2.86523-62-1865Zyosrfl89715767 2.16.840.1.067286.3.579.2.09932-73-9664Aqggmxj52276054 2.16.840.1.992076.3.57[id number] 2.16.840.1.730327.3.57[id number] 2.16.840.1.797392.3.57[id number] 2.16.840.1.425987.3.57[id number] 2.16.840.1.706895.3.57[id number] 2.16.840.1.448752.3.57[id number] 2.16.840.1.840489.3.57[id number] 2.16.840.1.372990.3.57[id number] 2.16.840.1.689006.3.57[id number] 2..0.1.675630.3.57[id number] 2.16.840.1.485172.3.579.2.727 [id number] 2.0.1.084495.19 [id number] [id number] [id number] [id number] 2.0.1.400637.3.579.2.531 Social History DateTypeDetailFacilityStart: 01-01-2022 End: 33-68-8575Jvfxdeu smoking statusHeavy tobacco smoker (finding)[facility]2023 End: 33-12-2719Npk Assigned At BirthF[facility]alReg[facility] Centertart: 05-08-2018 End: 81-40-3113Dqriwql smoking status NHISOccasional tobacco smokerMain Campus Medical Centertart: 05-08-2018 End: 91-30-0951Ylcfujs use and exposureSmokeless tobacco non-userMain Campus Medical Centertart: 07-63-8322Gju Assigned At BirthNot on fileMain Campus Medical Centertart: 07-18-2022 End: 11-71-3427Zvznrdsl to SARS-CoV-2 (event)Not sureMain Campus Medical Centertart: 03-30-2023 End: 20-08-1275Lglobxs of Social functionNOMS HealthcareStart: 12-07-2022 National Score (1-100), lower number is lower btnu02ODED HealthcareStart: 10-76-4693Vvdprrx smoking status NHISSmokes tobacco dailyNOMS HealthcareHistory of tobacco useCigarette SmokerNOMS HealthcareStart: 19-93-8134Sqwfpwajg beverage intakeCurrent drinker of alcohol (finding)NOMS HealthcareWithin the last year, have you been afraid of your partner or ex-partner?NoNOMS HealthcareWithin the last year, have you been humiliated or emotionally abused in other ways by your partner or ex-partner?YesNOMS HealthcareAre you now , , , , never or living with a partner?SeparatedNOMS HealthcareHow often to you have a drink containing alcohol?2-3 time sa weekNOMS HealthcareHow many standard drinks containing alcohol do you have on a typical day?1 or 2NOMS HealthcareHow often do you have 6 or more drinks on 1 occasion?Less than monthly NOM[facility] HealthcareHow hard is it for you to pay for the very basics like food, housing, medical care, and heatingVery hardNOMS HealthcareDo you feel stress - tense, restless, nervous, or anxious, or unable to sleep at night because your mind is troubled all the time - these days [OSQ]Very muchNOMS Healthcare(I/We) worried whether (my/our) food would run out before (I/we) got money to buy more. Sometimes trueNOMS HealthcareThe food that (I/we) bought just didn't last, and (I/we) didn't have money to get more.Often trueNOMS HealthcareStart: 08-28-2023 Alcohol CommentCaffeine intake : 3-4 cups per dayNOMS HealthcareSexual [facility] Start: 08-31-8674LslRvsgws (finding)[facility] Medical CenterToccSelect Medical [facility], [facility] Comment on above:daily smokerStart: 57-83-5293Nbyrome smoking status NHISTobacco smoking consumption unknownNOMS HealthcareHow often do you need to have someone help you when you read instructions, pamphlets, or other written material from your doctor or pharmacy [SILS]SometimesNOMS Healthcare Medical Equipment Procedure CodeEquipment CodeEquipment Original TextEquipment IdentifierDatesMesh Prolene Polypropylene 6x4in Surgical Patch Soft Flat Sterile Hernia - [id number]: 17-80-6512CVBNZ FRACTURE ORIF Nate Gavin DO 11/12/22 Unknown Ankle LFDAStart: 60-44-4542NZCFQ FRACTURE ORIF Nate Gavin DO A 11/12/22 Unknown Ankle LFDAStart: 13-59-3843ABLEE FRACTURE ORIF Romaine BETH, Nate A 11/12/22 Unknown Ankle LFDAStart: 77-83-6262PUOAI FRACTURE ORIF Romaine BETH, Nate A 11/12/22 Unknown Ankle LFDAStart: 73-72-5053QKIAP FRACTURE ORIF Romaine BETH, Nate A 11/12/22 Unknown Ankle LFDAStart: 38-79-9348DSXXL FRACTURE ORIF Romaine BETH, Nate A 11/12/22 Unknown Ankle LFDAStart: 55-60-9153ZUAPW FRACTURE ORIF Nate Gavin DO A 11/12/22 Unknown Ankle LFDAStart: 63-16-2710VHWJB FRACTURE ORIF Nate Gavin DO A 11/12/22 Unknown Ankle LFDAStart: 48-12-9630UQGGY FRACTURE ORIF Nate Gavin DO A 11/12/22 Unknown Ankle LFDAStart: 86-14-6176HNUEI FRACTURE ORIF Nate Gavin DO A 11/12/22 Unknown Ankle LFDAStart: 16-75-1619FVEAG FRACTURE ORIF Nate Gavin DO A 11/12/22 Unknown Ankle LFDAStart: 81-98-5205PUFRR FRACTURE ORIF Nate Gavin DO A 11/12/22 Unknown Ankle LFDAStart: 51-41-7409YCSTE FRACTURE ORIF Nate Gavin DO A 11/12/22 Unknown Ankle LFDAStart: 74-47-2183RAAUE FRACTURE ORIF Romaine BETH, Nate A 11/12/22 Unknown Ankle LFDAStart: 11-12-2022 ANKLE FRACTURE ORIF Nate Gavin DO A 11/12/22 Unknown Ankle LFDAStart: 27-58-6298CLKTF FRACTURE ORIF Nate Gavin DO A 11/12/22 Unknown Ankle LFDAStart: 83-94-0572HBIEI FRACTURE ORIF Romaine BETH, Nate A 11/12/22 Unknown Ankle LFDA Start: 02-72-0133OXNYW FRACTURE ORIF Nate Gavin DO A 11/12/22 Unknown Ankle L FDAStart: 85-49-9193DEXXK FRACTURE ORIF Romaine BETH, Nate A 11/12/22 Unknown Ankle LFDAStart: 95-68-2980RIFCU FRACTURE ORIF Romaine BETH, Nate A 11/12/22 Unknown Ankle LFDAStart: 95-58-2692IAMGV FRACTURE ORIF Romaine BETH, Nate A 11/12/22 Unknown Ankle LFDAStart: 39-78-7958NVQCD FRACTURE ORIF Romaine BETH, Nate A 11/12/22 Unknown Ankle LFDAStart: 97-64-7657UBTNF FRACTURE ORIF Romaine BETH, Nate A 11/12/22 Unknown Ankle LFDAStart: 18-80-5723AJYZV FRACTURE ORIF Romaine BETH, Nate A 11/12/22 Unknown Ankle LFDAStart: 76-78-8835FAWXI FRACTURE ORIF Nate Gavin DO A 11/12/22 Unknown Ankle LFDAStart: 27-42-2093BISSG FRACTURE ORIF Nate Gavin DO A 11/12/22 Unknown Ankle LFDAStart: 41-24-6526NBXHY FRACTURE ORIF Nate Gavin DO A 11/12/22 Unknown Ankle LFDAStart: 71-50-6385URWMV FRACTURE ORIF Nate Gavin DO A 11/12/22 Unknown Ankle LFDAStart: 56-52-0230ZSJDW FRACTURE ORIF Nate Gavin DO A 11/12/22 Unknown Ankle LFDAStart: 68-63-9310MNOPO FRACTURE ORIF Romaine BETH, Nate A 11/12/22 Unknown Ankle LFDAStart: 56-44-1338XDRSF FRACTURE ORIF Luis Miguel Gavin DOson A 11/12/22 Unknown Ankle LFDAStart: 84-73-0963FKRAZ FRACTURE ORIF Romaine BETH, Nate A 11/12/22 Unknown Ankle LFDAStart: 14-31-8275DIDQL FRACTURE ORIF Romaine BETH, Nate A 11/12/22 Unknown Ankle LFDAStart: 45-33-2525LVWKT FRACTURE ORIF Romaine BETH, Nate A 11/12/22 Unknown Ankle LFDAStart: 13-57-2982TMZAP FRACTURE ORIF Nate Gavin DO A 11/12/22 Unknown Ankle LFDAStart: 70-39-2737DJOPJ FRACTURE ORIF Nate Gavin DO A 11/12/22 Unknown Ankle LFDAStart: 76-50-2332GJDER FRACTURE ORIF Nate Gavin DO A 11/12/22 Unknown Ankle LFDAStart: 15-30-0509SMNTP FRACTURE ORIF Nate Gavin DO A 11/12/22 Unknown Ankle LFDAStart: 11-12-2022 ANKLE FRACTURE ORIF Nate Gavin DO A 11/12/22 Unknown Ankle LFDAStart: 97-11-7338AHXUX FRACTURE ORIF Nate Gavin DO A 11/12/22 Unknown Ankle LFDAStart: 26-02-9329TPZVM FRACTURE ORIF Nate Gavin DO 11/12/22 Unknown Ankle LFDA Start: 82-97-9947HQAIM FRACTURE ORIF Nate Gavin DO 11/12/22 Unknown Ankle L FDAStart: 00-68-0631XEHFJ FRACTURE ORIF Nate Gavin DO 11/12/22 Unknown Ankle LFDAStart: 39-41-2918QLOPX FRACTURE ORIF Nate Gavin DO 11/12/22 Unknown Ankle LFDAStart: 73-30-6980AUIEA FRACTURE ORIF Nate Gavin DO 11/12/22 Unknown Ankle LFDAStart: 69-24-6195DOGXL FRACTURE ORIF Nate Gavin DO A 11/12/22 Unknown Ankle LFDAStart: 79-85-8588SVBPW FRACTURE ORIF Nate Gavin DO A 11/12/22 Unknown Ankle LFDAStart: 76-05-0025GBRUN FRACTURE ORIF Nate Gavin DO A 11/12/22 Unknown Ankle LFDAStart: 60-40-6234FORYW FRACTURE ORIF Nate Gavin DO A 11/12/22 Unknown Ankle LFDAStart: 39-65-9657DNSNC FRACTURE ORIF Nate Gavin DO A 11/12/22 Unknown Ankle LFDAStart: 31-83-8784YGYZH FRACTURE ORIF Nate Gavin DO A 11/12/22 Unknown Ankle LFDAStart: 57-50-9981HZMPY FRACTURE ORIF Nate Gavin DO A 11/12/22 Unknown Ankle LFDAStart: 93-94-2006YZNRD FRACTURE ORIF Nate Gavin DO A 11/12/22 Unknown Ankle LFDAStart: 01-11-2308HABEC FRACTURE ORIF Nate Gavin DO A 11/12/22 Unknown Ankle LFDAStart: 33-75-9233MVXCL FRACTURE ORIF Nate Gavin DO A 11/12/22 Unknown Ankle LFDAStart: 53-26-5306QVCYM FRACTURE ORIF Nate Gavin DO A 11/12/22 Unknown Ankle LFDAStart: 05-19-8499DQFYL FRACTURE ORIF Nate Gavin DO A 11/12/22 Unknown Ankle LFDAStart: 06-15-4393EGBJE FRACTURE ORIF Nate Gavin DO A 11/12/22 Unknown Ankle LFDAStart: 22-85-9885ZIISA FRACTURE ORIF Nate Gavin DO 11/12/22 Unknown Ankle LFDAStart: 62-43-0941ZQSWQ FRACTURE ORIF Nate Gavin DO 11/12/22 Unknown Ankle LFDAStart: 37-21-9795SOBKK FRACTURE ORIF Nate Gavin DO 11/12/22 Unknown Ankle LFDAStart: 02-35-4621RHMWT FRACTURE ORIF Nate Gavin DO A 11/12/22 Unknown Ankle LFDAStart: 11-12-2022 ANKLE FRACTURE ORIF Nate Gavin DO 11/12/22 Unknown Ankle LFDAStart: 41-98-0270KKVDX FRACTURE ORIF Nate Gavin DO A 11/12/22 Unknown Ankle LFDAStart: 21-85-3298IGHRN FRACTURE ORIF Nate Gavin DO A 11/12/22 Unknown Ankle LFDA Start: 28-32-7453BZPEI FRACTURE ORIF Nate Gavin DO A 11/12/22 Unknown Ankle L FDAStart: 48-64-5200WTESY FRACTURE ORIF Nate Gavin DO A 11/12/22 Unknown Ankle LFDAStart: 58-04-1231JQZCK FRACTURE ORIF Nate Gavin DO A 11/12/22 Unknown Ankle LFDAStart: 49-32-3382DPCTO FRACTURE ORIF Romaine BETH, Nate A 11/12/22 Unknown Ankle LFDAStart: 27-84-1782IDUVF FRACTURE ORIF Romaine BETH, Nate A 11/12/22 Unknown Ankle LFDAStart: 98-50-7841LTNMC FRACTURE ORIF Romaine BETH, Nate A 11/12/22 Unknown Ankle LFDAStart: 08-05-0293TVUEF FRACTURE ORIF Romaine DO, Nate A 11/12/22 Unknown Ankle LFDAStart: 37-09-7877BNENM FRACTURE ORIF Romaine BETH, Nate A 11/12/22 Unknown Ankle LFDAStart: 47-77-7243DJAWS FRACTURE ORIF Romaine BETH, Nate A 11/12/22 Unknown Ankle LFDAStart: 26-09-8084TPECO FRACTURE ORIF Romaine BETH, Nate A 11/12/22 Unknown Ankle LFDAStart: 68-94-5728MGZPD FRACTURE ORIF Romaine BETH, Nate A 11/12/22 Unknown Ankle LFDAStart: 92-28-2091OLYUE FRACTURE ORIF Romaine BETH, Nate A 11/12/22 Unknown Ankle LFDAStart: 29-42-6261MBPOU FRACTURE ORIF Romaine BETH, Nate A 11/12/22 Unknown Ankle LFDAStart: 96-40-9025BXBSR FRACTURE ORIF Romaine BETH, Nate A 11/12/22 Unknown Ankle LFDAStart: 07-09-1276SHZCS FRACTURE ORIF Romaine BETH, Nate A 11/12/22 Unknown Ankle LFDAStart: 11-10-5574SXFAT FRACTURE ORIF Romaine BETH, Nate A 11/12/22 Unknown Ankle LFDAStart: 16-26-0080IQHNV FRACTURE ORIF Romaine BETH, Nate A 11/12/22 Unknown Ankle LFDAStart: 77-84-9040MNDWG FRACTURE ORIF Romaine BETH, Nate A 11/12/22 Unknown Ankle LFDAStart: 60-36-1774KQVGQ FRACTURE ORIF Romaine DO, Nate A 11/12/22 Unknown Ankle LFDAStart: 84-59-7253IUKYE FRACTURE ORIF Romaine BETH, Nate A 11/12/22 Unknown Ankle LFDAStart: 20-31-2232FOWSY FRACTURE ORIF Romaine BETH, Nate A 11/12/22 Unknown Ankle LFDAStart: 11-12-2022 ANKLE FRACTURE ORIF Romaine BETH, Nate A 11/12/22 Unknown Ankle LFDAStart: 44-92-5221IPECI FRACTURE ORIF Romaine BETH, Nate A 11/12/22 Unknown Ankle LFDAStart: 53-22-8305RQSYA FRACTURE ORIF Romaine BETH, Nate A 11/12/22 Unknown Ankle LFDA Start: 73-89-2746DTGGI FRACTURE ORIF Romaine BETH, Nate Cotton 11/12/22 Unknown Ankle L FDAStart: 69-85-7888PINPS FRACTURE ORIF Nate Gavin DO A 11/12/22 Unknown Ankle LFDAStart: 22-40-8750WFTBG FRACTURE ORIF Nate Gavin DO 11/12/22 Unknown Ankle LFDAStart: 49-36-3269FWRKQ FRACTURE ORIF Romaine BETH, Nate Cotton 11/12/22 Unknown Ankle LFDAStart: 53-44-3708AXAQK FRACTURE ORIF Nate Gavin DO 11/12/22 Unknown Ankle LFDAStart: 46-72-9892SZAKF FRACTURE ORIF Nate Gavin DO 11/12/22 Unknown Ankle LFDAStart: 27-53-4955OFRZP FRACTURE ORIF Nate Gavin DO 11/12/22 Unknown Ankle LFDAStart: 76-87-2802FDGSZ FRACTURE ORIF Romaine BETH, Nate A 11/12/22 Unknown Ankle LFDAStart: 00-16-3142YXIWG FRACTURE ORIF Romaine BETH, Nate A 11/12/22 Unknown Ankle LFDAStart: 08-78-4153XGLAN FRACTURE ORIF Romaine BETH, Nate A 11/12/22 Unknown Ankle LFDAStart: 24-10-9570SBNMD FRACTURE ORIF Romaine BETH, Nate A 11/12/22 Unknown Ankle LFDAStart: 07-39-0631TCSIJ FRACTURE ORIF Romaine BETH, Nate A 11/12/22 Unknown Ankle LFDAStart: 46-64-5988CCFTA FRACTURE ORIF Nate Gavin DO A 11/12/22 Unknown Ankle LFDAStart: 53-14-0531VDNVQ FRACTURE ORIF Romaine BETH, Nate A 11/12/22 Unknown Ankle LFDAStart: 53-21-3375BERXK FRACTURE ORIF Romaine BETH, Nate A 11/12/22 Unknown Ankle LFDAStart: 99-85-7490RNTMC FRACTURE ORIF Nate Gavin DO A 11/12/22 Unknown Ankle LFDAStart: 60-63-5438SGLFH FRACTURE ORIF Nate Gavin DO A 11/12/22 Unknown Ankle LFDAStart: 37-64-3312TTDKG FRACTURE ORIF Nate Gavin DO A 11/12/22 Unknown Ankle LFDAStart: 75-99-1267INLRF FRACTURE ORIF Nate Gavin DO A 11/12/22 Unknown Ankle LFDAStart: 64-13-5628WETUU FRACTURE ORIF Nate Gavin DO A 11/12/22 Unknown Ankle LFDAStart: 57-60-1590AYEII FRACTURE ORIF Nate Gavin DO A 11/12/22 Unknown Ankle LFDAStart: 11-12-2022 ANKLE FRACTURE ORIF Nate Gavin DO A 11/12/22 Unknown Ankle LFDAStart: 93-91-5129LEKLJ FRACTURE ORIF Nate Gavin DO A 11/12/22 Unknown Ankle LFDAStart: 37-66-6518IIQJP FRACTURE ORIF Nate Gavin DO A 11/12/22 Unknown Ankle LFDA Start: 51-10-9953CAGKK FRACTURE ORIF Nate Gavin DO A 11/12/22 Unknown Ankle L FDAStart: 50-37-8645ELRQQ FRACTURE ORIF Nate Gavin DO A 11/12/22 Unknown Ankle LFDAStart: 47-00-0428QYOLE FRACTURE ORIF Nate Gavin DO A 11/12/22 Unknown Ankle LFDAStart: 46-90-5688EKJDY FRACTURE ORIF Nate Gavin DO A 11/12/22 Unknown Ankle LFDAStart: 47-33-0072VUTBY FRACTURE ORIF Nate Gavin DO A 11/12/22 Unknown Ankle LFDAStart: 08-90-2589PWQTE FRACTURE ORIF Nate Gavin DO A 11/12/22 Unknown Ankle LFDAStart: 82-44-5166FYQND FRACTURE ORIF Nate Gavin DO A 11/12/22 Unknown Ankle LFDAStart: 16-76-2052GHPFJ FRACTURE ORIF Romaine BETH, Nate A 11/12/22 Unknown Ankle LFDAStart: 46-88-5866SUDCD FRACTURE ORIF Nate Gavin DO A 11/12/22 Unknown Ankle LFDAStart: 01-72-5118LTTXW FRACTURE ORIF Romaine BETH, Nate A 11/12/22 Unknown Ankle LFDAStart: 58-77-1808IKUZV FRACTURE ORIF Nate Gavin DO A 11/12/22 Unknown Ankle LFDAStart: 97-96-3176HGMCA FRACTURE ORIF Nate Gavin DO A 11/12/22 Unknown Ankle LFDAStart: 40-96-9010VDHQQ FRACTURE ORIF Nate Gavin DO A 11/12/22 Unknown Ankle LFDAStart: 65-86-7907RBYNM FRACTURE ORIF Nate Gavin DO A 11/12/22 Unknown Ankle LFDAStart: 82-77-8114HJHFA FRACTURE ORIF Nate Gavin DO A 11/12/22 Unknown Ankle LFDAStart: 36-86-6276AACMK FRACTURE ORIF Nate Gavin DO A 11/12/22 Unknown Ankle LFDAStart: 56-53-9887AMMZC FRACTURE ORIF Nate Gavin DO A 11/12/22 Unknown Ankle LFDAStart: 76-15-2220BMUZK FRACTURE ORIF Nate Gavin DO A 11/12/22 Unknown Ankle LFDAStart: 73-07-7375PRSIR FRACTURE ORIF Nate Gavin DO A 11/12/22 Unknown Ankle LFDAStart: 89-82-2456IXLUW FRACTURE ORIF Nate Gavin DO A 11/12/22 Unknown Ankle LFDAStart: 55-13-4670OMCDO FRACTURE ORIF Romaine BETH, Nate A 11/12/22 Unknown Ankle LFDAStart: 11-12-2022 ANKLE FRACTURE ORIF Nate Gavin DO A 11/12/22 Unknown Ankle LFDAStart: 32-90-5729ZCARQ FRACTURE ORIF Romaine BETH, Nate A 11/12/22 Unknown Ankle LFDAStart: 80-31-9396HMMFN FRACTURE ORIF Romaine BETH, Nate A 11/12/22 Unknown Ankle LFDA Start: 60-11-1495QQVGH FRACTURE ORIF Romaine BETH, Nate A 11/12/22 Unknown Ankle L FDAStart: 08-53-4962XLQHT FRACTURE ORIF Romaine BETH, Nate A 11/12/22 Unknown Ankle LFDAStart: 83-55-4850HXDEC FRACTURE ORIF Romaine BETH, Nate A 11/12/22 Unknown Ankle LFDAStart: 61-17-8935GOQPV FRACTURE ORIF Romaine BETH, Nate A 11/12/22 Unknown Ankle LFDAStart: 78-86-2909PMOGN FRACTURE ORIF Romaine BETH, Nate A 11/12/22 Unknown Ankle LFDAStart: 38-59-1787TWRPV FRACTURE ORIF Romaine BETH, Nate A 11/12/22 Unknown Ankle LFDAStart: 87-33-2378TJFRH FRACTURE ORIF Romaine BETH, Nate A 11/12/22 Unknown Ankle LFDAStart: 60-53-3195RKMCM FRACTURE ORIF Romaine BETH, Nate A 11/12/22 Unknown Ankle LFDAStart: 39-90-8086CFSKY FRACTURE ORIF Romaine BETH, Nate A 11/12/22 Unknown Ankle LFDAStart: 55-57-3536IXNOR FRACTURE ORIF Romaine BETH, Nate A 11/12/22 Unknown Ankle LFDAStart: 62-71-4143FKOJA FRACTURE ORIF Romaine BETH, Nate A 11/12/22 Unknown Ankle LFDAStart: 04-28-1260DGJXT FRACTURE ORIF Romaine BETH, Nate A 11/12/22 Unknown Ankle LFDAStart: 44-63-1256WSMBX FRACTURE ORIF Romaine BETH, Nate A 11/12/22 Unknown Ankle LFDAStart: 38-67-4111DEVEB FRACTURE ORIF Romaine BETH, Nate A 11/12/22 Unknown Ankle LFDAStart: 28-19-0549OAXRS FRACTURE ORIF Romaine BETH, Nate A 11/12/22 Unknown Ankle LFDAStart: 77-93-9023BCNIO FRACTURE ORIF Romaine BETH, Nate A 11/12/22 Unknown Ankle LFDAStart: 81-10-8139YFJHF FRACTURE ORIF Romaine BETH, Nate A 11/12/22 Unknown Ankle LFDAStart: 43-17-0621YFKZO FRACTURE ORIF Romaine BETH, Nate A 11/12/22 Unknown Ankle LFDAStart: 93-97-1213AENTK FRACTURE ORIF Romaine BETH, Nate A 11/12/22 Unknown Ankle LFDAStart: 44-19-9664LWMAW FRACTURE ORIF Romaine BETH, Nate A 11/12/22 Unknown Ankle LFDAStart: 28-39-5134VORWY FRACTURE ORIF Nate Gavin DO A 11/12/22 Unknown Ankle LFDAStart: 11-12-2022 ANKLE FRACTURE ORIF Nate Gavin DO A 11/12/22 Unknown Ankle LFDAStart: 95-75-6785GRIDL FRACTURE ORIF Nate Gavin DO A 11/12/22 Unknown Ankle LFDAStart: 66-19-9923XMJBF FRACTURE ORIF Nate Gavin DO A 11/12/22 Unknown Ankle LFDA Start: 13-54-7459BLXNA FRACTURE ORIF Nate Gavin DO 11/12/22 Unknown Ankle L FDAStart: 76-39-2997WDLTN FRACTURE ORIF Nate Gavin DO A 11/12/22 Unknown Ankle LFDAStart: 42-17-4850XXJHU FRACTURE ORIF Nate Gavin DO A 11/12/22 Unknown Ankle LFDAStart: 50-52-3477PACXO FRACTURE ORIF Nate Gavin DO A 11/12/22 Unknown Ankle LFDAStart: 33-07-3704GEJTJ FRACTURE ORIF Romaine BETH, Nate A 11/12/22 Unknown Ankle LFDAStart: 74-02-2874OZOIH FRACTURE ORIF Romaine BETH, Nate A 11/12/22 Unknown Ankle LFDAStart: 70-98-6469KQZDP FRACTURE ORIF Nate Gavin DO A 11/12/22 Unknown Ankle LFDAStart: 11-12-2022 Functional Status FopvEkuftgzguuOqknswHeybrkdu26-61-1309Makhbccupp StatusN/AFisher - [facility] HospitalVbyzss12-90-8030Spggzci Health Questionnaire 2 item (PHQ-2) [Reported][facility] Zjgceijvnq40-66-1757Duysoa interest or pleasure in doing thingsMore than half the days 06/24/2024 1:47 PM Marycruz Duval More than half the daysCox Walnut LawnOaqyflpdro91-40-1678Lvetdya down, depressed, or hopelessMore than half the days 06/24/2024 1:47 PM Marycruz Duval More than half the [facility] 67-30-4566Ivzihjo falling or staying asleep, or sleeping too muchNearly every day 06/24/2024 1:47 PM Marycruz Duval Nearly every dayCox Walnut Lawn 09-98-2306Xcuovya tired or having little energyNearly every day 06/24/2024 1:47 PM Marycruz Duval Nearly every dayCox Walnut LawnEmfpqhuunv18-46-0944Ytgn appetite or overeatingMore than half the days 06/24/2024 1:47 PM Marycruz Duval More than half the daysCox Walnut LawnKsgukihbyj09-16-4296Nobldlj bad about yourself-or that you are a failure or have let yourself or your family downNearly every day 06/24/2024 1:47 PM Marycruz Duval Nearly every dayCox Walnut LawnOurdpoyjpt54-93-2986 Trouble concentrating on things, such as reading the newspaper or watching televisionNearly every day 06/24/2024 1:47 PM Marycruz Duval Nearly every dayCox Walnut LawnLcilrxmobl02-50-3416Ysvknv or speaking so slowly that other people could have noticed. Or the opposite - being so fidgety or restless that you have been moving around a lot more than usualSeveral days 06/24/2024 1:47 PM Marycruz Duval Several [facility] HospitalKzzppaczgy64-11-5774Cigmgtva that you would be better off , or of hurting yourself in some waySeveral days 06/24/2024 1:47 PM Marycruz Duval Several daysCox Walnut LawnGqeugoytmv57-82-6122Hxpzv score [AUDIT-C]4 06/24/2024 1:42 PM Marycruz DuvalNOAudrain Medical CenterMdoaipcuib28-70-4518Wag often do you have a drink containing alcohol?2-3 times a week 06/24/2024 1:42 PM Marycruz Duval 2-3 times a weekCox Walnut LawnUpbjywepng43-72-6334Mrh many standard drinks containing alcohol do you have on a typical day?1 or 2 06/24/2024 1:42 PM Marycruz Duval 1 or 2NOMS Nlypghxuxw68-99-2843Jnv often do you have 6 or more drinks on 1 occasion?Less than monthly 06/24/2024 1:42 PM Marycruz Duval Less than monthlyCox Walnut LawnNmsahijbsa57-42-9159Jrvddbqycs StatusN/[facility]01-19-2024Functional StatusN/[facility] 07-78-5445Ykrutrbdbs StatusN/[facility]02-18-2023Functional StatusN/[facility]02-18-2023Functional StatusPremier Health [facility]07-07-2022Functional StatusN/[facility] 99-59-9718Qez you deaf, or do you have serious difficulty hearingNo 04/19/2021 10:17 AM Sofi Dickey [place]edvgu[place]77[place]4633Jwz you blind, or do you have serious difficulty seeing, even when wearing glassesNo 04/19/2021 10:17 AM Sofi Dickey RN [place]07-26-2021Do you have serious difficulty walking or climbing stairsNo 04/19/2021 10:17 AM Sofi Dickey RN NoCselect medical specialty hospital - c[facility]innatihellen Vdynms14-96-3207Ku you have difficulty dressing or bathingNo 04/19/2021 10:17 AM Sofi Dickey RN NoCselect medical specialty hospital - [facility]innatihellen Dddmkp64-79-2690Yrodbvq of a physical, mental, or emotional condition, do you have difficulty doing errands alone such as visiting a physician's office or shoppingNo 04/19/2021 10:17 AM Sofi Dickey RN NoC[facility] ClinicN[facility] Mental Status WyaxVovnjbdpsxXddcrnMvrmezab89-36-5649Ywdtvjn of a physical, mental, or emotional condition, do you have serious difficulty concentrating, remembering, or making decisionsNo 04/19/2021 10:17 AM EDT Sofi Sorensen RN [place] Clinical Notes 01-01-2022 to 06-26-2025 Note Date & [id number] NoteDischarge Summary Admission and Discharge Information Admitting Physician - Noel MORALES DO Consulting Physician - Wicho Rivas MD Admitting Diagnoses: Discharge Order Date Discharge Patient - Ordered -- 06/25/25 9:24:00 EDT Discharge Diagnoses 1. Stroke-like symptoms, 06/23/2025 2. Macrocytosis, 06/24/2025 3. Hypokalemia, 06/25/2025 4. Palpitations, 06/24/2025 5. Hyperlipidemia, 06/24/2025 6. PTSD (post-traumatic stress disorder), 06/24/2025 7. Bipolar disorder, 06/24/2025 8. Asthma, 06/24/2025 9. Chronic GERD, 06/24/2025 10. Tobacco use, 06/24/2025 11. Osteoporosis, 06/24/2025 12. NICOLETTE (obstructive sleep apnea), 06/24/2025 Procedure History Appendectomy, x2, Colonoscopy, Hysterectomy, Repair of recurrent inguinal hernia, spine surgery for scoliosis. Hospital Course Nathaniel Marcial is a 49 year old female with history of asthma, GERD, PTSD, bipolar disorder, recent diagnosis of hyperlipidemia, and untreated sleep apnea. She was recently admitted to [facility] from 06/20 to 06/21 for stroke like symptoms. Neurology evaluated, patient had Head CT that was negative as well as Head/Neck CTA negative. No MRI able to be done at [facility] per rad staff due to [place]. She was found to have hyperlipidemia and started on asa 81 mg QD and high intensity statin. She did not take the statin. Patient had hypokalemia and hyponatremia. Her HCTz was stopped. Patient returned to [facility] 06/23/25, again, with complaints of stroke like symptoms and palpitations. Head CT was negative. Neurology evaluated again with low suspicion for stroke. An EEG was obtained and this was normal. She had echocardiogram with structurally normal heart and negative bubble study. No med changes, recommended compliance with statin, and that her sleep apnea be treated. All questions answered surrounding neuro concerns. Ultimately, patient will need to get MRI arranged as outpatient (note had been sent to PCP to assist with this after last hospital stay), and she will need to follow up with neurology as outpatient. -There was concern for UTI based on UA results, IV ceftriaxone was started. Patient's urine cultureultimately was negative. Patient was educated on concern for UTI on 06/24 and treatment. She was educated on negative urine culture on 06/25. All questions answered surrounding UTI concerns. -Regarding labs, patient does have on-going hypokalemia and her potassium supplement is increased. She is given written education on potassium rich diet. Her HCTz has been stopped. She is instructed to get a BMP in 1 week to re- evaluate K+ levels. If she continues to have issues with hypokalemia, PCP will need to work this up further. This was clearly explained to patient. She was very concern about her macrocytosis and desired explanation for finding. She has had this as far back as 2022 per my review. Her TSH was in normal range, LFTs stable, and her B12 also in normal range. She has no drop in Hg. We discussed need to follow up with PCP for further evaluation if he deems necessary, this is not acute issue. Patient had multiple complaints surrounding her care. Overnight there was an issue that patient hasdocumented on her patient packet/menu and relayed to me about the manager night staff. Patient statesthat no one has addressed her concerns. I was told by staff that she told staff she will report the nursing staff. I spoke with truck sales manager on the floor who confirms that the manager night trust operations assistant discussed concerns with patient at length. I offered to contact patient experience and patient states she just wants to leave. Email sent to patient experience to reach out at least by phone in attempt to remedy. I attempted to answer all patient questions and concerns surrounding her care. We discussed the discharge plans for PCP, Neuro, and need for repeat lab follow up- but must note that patient's understanding may be hindered by patient's desire to discuss complaints re: her caregivers. Discharge management: 32 minutes spent on discharge management including patient education, coordination of care with specialist/therapies/case management. Significant Findings (06/23/2025 20:[address] Head or Brain w/o Contrast) IMPRESSION: NEGATIVE CT SCAN OF THE BRAIN. NO EVIDENCE OF INTRACRANIAL HEMORRHAGE. [1] (06/24/2025 14:08 EDT Echo w/ Saline Bubbles) Interpretation Summary The left ventricle is normal in size. There is normal left ventricular wall thickness. The left ventricular ejection fraction is normal. Ejection Fraction = 60-65%. Left Ventricular filling pattern is normal for age. Injection of contrast documented no interatrial shunt. [2] EEG CLINICAL HISTORY: Recurrent episodes spreading paresthesias from head down right arm or both arms. Date of service 06/24/2025. TECHNICAL INFORMATION: This routine EEG was performed using the standard international 10-20 system of lead placement. Alldata was obtained digitally and available for reformatti (more content not included)...[facility] Hospital[facility] on above:Result Comment: Electronically Signed By: Obdulia Menard CNP\.br\Date and Time Signed: 06/25/25 09:41 EDT\.br\Electronically Co-Signed By: Meliton Shepherd III, DO.br\Date and Time Co-Signed: 06/26/25 07:32 [id number] Note Progress Note-Physician Basic Information 49 year old female with history of asthma, GERD, PTSD, bipolar disorder, recent diagnosis of hyperlipidemia, and untreated sleep apnea admitted with strokelike symptoms, UTI Assessment/Plan 1. Stroke-like symptoms (R29.90: Unspecified symptoms and signs involving the nervous system) Recently admitted 06/20- for stroke rule out, unable to obtain MRI d/t Mccarthy rods in back Head CT, Head/Neck CTA 06/20 Negative Patient returned to [facility] 06/23/25 with right arm weakness and numbness Head CT Negative PT/OT evaluated last admit with no needs, no functional changes at present to support need for therapy re-eval Neurology Evaluation: MRI recommended but unable to obtain, check EEG, continue asa 81 mg QD, statin 2. UTI (urinary tract infection) (N39.0: Urinary tract infection, site not specified) IV Ceftriaxone Urine Cx pending 3. Macrocytosis (D75.89: Other specified diseases of blood and blood-forming organs) TSH, LFTs, and B12 within normal range CBC in am 4. Palpitations (R00.2: Palpitations) TSH and lytes within range Continuous telemetry Echocardiogram pending 5. Hyperlipidemia (E78.5: Hyperlipidemia, unspecified) Uncontrolled Started on high intensity statin, not taking as prescribed Now agreeable to take Lipitor 6. PTSD (post-traumatic stress disorder) (F43.10: Post-traumatic stress disorder, unspecified) Component of anxiety to above 7. Bipolar disorder (F31.9: Bipolar disorder, unspecified) Continue with outpatient Psychiatry 8. Asthma (J45.909: Unspecified asthma, uncomplicated) Clinically stable 9. Chronic GERD (K21.9: Gastro-esophageal reflux disease without esophagitis) Continue PPI 10. Tobacco use (Z72.0: Tobacco use) Nicotine patch Cessation advised 11. Osteoporosis (M81.0: Age-related osteoporosis without current pathological fracture) Patient takes weekly Fosamax 12. NICOLETTE (obstructive sleep apnea) (G47.33: Obstructive sleep apnea (adult) (pediatric)) Patient states she is awaiting arrangements for the follow-up describes CPAP titration study Awaiting EEG, Echocardiogram, and following urine culture- hopeful DC in next 24 hours FULL CODE DVT Prophylaxis: SCDs- she was not happy with Lovenox administration prior admission Subjective No new neurologic complaints. No chest pain or sob. She requests nicotine patch and nursing administers. Review of Systems Additional ROS info: Except as noted in the above Review of Systems and in the History of Present Illness all other systems have been reviewed and are negative or noncontributory Objective Vitals & Measurements T: 36.8 ???C(Oral) TMIN: 36.3 ???C(Tympanic) TMAX: 36.8 ???C(Oral) HR: 72(Apical) RR: 18 BP: 121/77SpO2: 96% HT: 149.86 cm WT: 60.6 kg Intake & Output This visit (24 hour periods starting at 07:00 EDT) 06/24/25 * 06/23/25 06/22/25 Total Summary Intake mL -- 141.84 -- Output mL -- -- -- Fluid Balance -- 141.84 -- Intake (3) Oral Intake mL -- 100 -- Sodium Chloride 0.9%, ceftriaxone mL -- 39.84 -- ondansetron mL -- 2 -- Total -- 141.84 -- Output (0) Counts (1) Urine Count -- 2 -- * This column has not completed the indicated time period. Physical Exam General: Adult female. Alert, non-toxic appearing, NAD Eyes: PERRLA. Glasses. HEENT: Mucous membrane pink, moist, Normal tongue. Neck:supple, no JVD Lungs: on RA lungs clear Cardio: Regular S1, S2, no murmur appreciated. Good perfusion Pulses: Normal capillary refill Abdomen: Soft, non-distended, non-tender, + BS x4 Musculoskeletal: No deformity or scoliosis noted. Normal ROM for age. Integumentary: Warm, dry, intact Extremity: No clubbing, no edema Neurologic: Alert, oriented x 4 follows commands, no obvious focal deficits Mental status: Pleasant & cooperative, talkative Lab Results WBC: 6.4 E9/L (06/24/25 05:54:00) RBC: 3.9 E12/L Low (06/24/25 05:54:00) HGB: 13.5 gm/dL (06/24/25 05:54:00) Hct: 39.5 % (06/24/25 05:54:00) MCV: 102.2 fL High (06/24/25 05:54:00) MCH: 34.9 pg High (06/24/25 05:54:00) MCHC: 34.2 gm/dL (06/24/25 05:54:00) RDW: 14.2 % (06/24/25 05:54:00) Platelet: 348 E9/L (06/24/25 05:54:00) MPV: 7.5 fL (06/24/25 05:54:00) Neutro Auto: 42.7 % (06/24/25 05:54:00) Lymph Auto: 48 % (06/24/25 05:54:00) [facility] Auto: 7.7 % (06/24/25 05:54:00) Eos Auto: 0.8 % (06/24/25 05:54:00) Basophil Auto: 0.8 % (06/24/25 05:54:00) Neutro Absolute: 2.7 E9/L (06/24/25 05:54:00) Lymph Absolute: 3.1 E9/L (06/24/25 05:54:00) [facility] Absolute: 0.5 E9/L (06/24/25 05:54:00) Eos Absolute: 0.1 E9/L (06/24/25 05:54:00) Basophil Absolute: 0.1 E9/L (06/24/25 05:54:00) PT: 10.2 second(s) (06/23/25 20:10:00) INR: 0.91 (06/23/25 20:10:00) PTT: 33.4 second(s) (06/23/25 20:10:00) Glucose Lvl: 99 mg/dL (06/24/25 05:54:00) BUN: 11 mg/dL (06/24/25 05:54:00) Creatinine: 0.7 mg/dL (06/24/25 05:54 (more content not included)...[facility] HospitalComment on above:Result Comment: Electronically Signed By: Obdulia Menard CNP\.br\Date and Time Signed: 06/24/25 11:27 EDT\.br\Electronically Co-Signed By: Meliton Shepherd III, DO\.br\Date and Time Co-Signed: 06/25/25 09:28 [id number] NoteProgress Note-Nurse Patient verbalized multiple concerns regarding current treatment plan and stated no one had explained it to her. This nurse attempted to provide education and address her questions to the best of ability; however patient declined further explanation and preferred to rely information based on what she found in the internet. Patient was encouraged to discuss concerns directly with the provider for clarification and reassurance. Will continue to provide support as needed. [facility]09-30-[facility] NoteEchocardiology Procedure Exam Date/Time Accession # Ordering Echo w/ Saline Bubbles 06/24/2025 14:08 EDT [id number] Noel MORALES DO CPT code 34812 [id number] Reason for Exam (Echo w/ Saline Bubbles) TIA Report [facility] [address] [place] [address] Adult Echocardiogram Report Name: NATHANIEL MARCIAL Study Date: 06/24/2025 01:16 PM BP: 95/67 mmHg Patient Location: 2N^[id number]^[facility] HR: 57 : 1975 Gender: Female Height: 58.5 in Age: 49 yrs Ethnicity: WHT Weight: 132 lb Reason For Study: TIA BSA: 1.5 m2 History: HTN, NICOLETTE, Smoker Ordering Physician: Noel MORALES Performed By: Nu Vincent RDCS Interpretation Summary The left ventricle is normal in size. There is normal left ventricular wall thickness. The left ventricular ejection fraction is normal. Ejection Fraction = 60-65%. Left Ventricular filling pattern is normal for age. Injection of contrast documented no interatrial shunt. Procedure A complete two-dimensional transthoracic echocardiogram was performed (2D, M- mode, spectral and color flow Doppler). Agitated saline bubble study was performed. Left Ventricle The left ventricle is normal in size. There is normal left ventricular wall thickness. The left ventricular ejection fraction is normal. Ejection Fraction = 60-65%. No obvious regional wall motion abnormalities noted. Left Ventricular filling pattern is normal for age. Left Atrium The left atrial size is normal. Injection of contrast documented no interatrial shunt. Right Atrium Right atrial size is normal. Echocardiology Report Right Ventricle The right ventricular systolic function is normal. The right ventricle is normal size. Aortic Valve The aortic valve is grossly normal. Mitral Valve Mitral valve structure is normal. There is Trace mitral regurgitation. Tricuspid Valve The tricuspid valve is grossly normal. There is trace tricuspid regurgitation. Right ventricular systolic pressure is normal. Pulmonic Valve The pulmonic valve is normal. Trace pulmonic valvular regurgitation. Arteries The aortic root is normal in size. Venous The inferior vena cava is normal in size, and collapses normally with respiration. Effusion There is no pericardial effusion. MMode/2D Measurements & Calculations RVDd: 2.3 cm LVIDd: 4.3 cm FS: 46.1 % Ao root diam: 2.3 cm IVSd: 0.73 cm LVIDs: 2.3 cm EDV(Teich): 85.0 ml LVPWd: 0.94 cm ESV(Teich): 18.9 ml Ao root area: 4.1 cm2 EF(Teich): 77.7 % LA dimension: 3.2 cm asc Aorta Diam: 2.8 cm LVOT diam: 2.1 cm LVLd ap4: 7.4 cm EDV(MOD-sp2): 64.4 ml LVOT area: 3.5 cm2 EDV(MOD-sp4): 63.2 ml ESV(MOD-sp2): 22.2 ml LVLs ap4: 6.0 cm EF(MOD-sp2): 65.5 % ESV(MOD-sp4): 17.8 ml EF(MOD-sp4): 71.8 % SV(MOD-sp4): 45.4 ml TAPSE: 2.6 cm Ao Sinus of Valsalva: 2.6 cm Ao Sinotubular Junction: 2.3 cm IVC Diam: 1.6 cm RVIDd/LVIDd: 0.54 EF (MOD-bp): 68.6 % LA Vol Index: 24.4 ml/m2 Doppler Measurements & Calculations MV E max tony: 128.0 cm/sec MV dec time: 0.18 sec Ao V2 max: 146.4 cm/sec LV V1 max P.4 mmHg MV A max tony: 69.8 cm/sec Ao max P.6 mmHg LV V1 max: 92.0 cm/sec MV E/A: 1.8 Lat Peak E' Tony: 11.7 cm/sec HALLEY(V,D): 2.2 cm2 E/E' Lat: 10.9 Echocardiology Report Med Peak E' Tony: 7.2 cm/sec E/E' Med: 17.8 TR max tony: 238.9 cm/sec RAP systole: 3.0 mmHg AV VR: 0.63 TR max P.8 mmHg RVSP(TR): 25.8 mmHg FINAL REPORT Dictated: 06/24/2025 1:16 pm Sweta Valadez MD Signed (Electronic Signature): 06/24/2025 4:59 pm Signed by: Sweta Valadez MD Transcribed by: IL Technologist: [facility]09-30-2025 Note Consultation Note Chief Complaint pt arrives for c/o TIA's. pt states she is having right sided weakness. pt last known well is 1630 Reason for Consultation stroke History of Present Illness 49-year-old left handed woman, a current smoker, who has sleep apnea and is awaiting a CPAP titration trial. Back on June 05, 2025 she was seen in the emergency department with increased anxiety symptomsand had mentioned having paresthesias in both upper extremities. On June 20, 2025 she came to the emergency department complaining of right upper extremity paresthesias and feeling like she was having difficulty holding her arm up. She has been having neck and back pain and thought that may be it was somehow related to that. Yesterday she had additional events similar to June 20 event that prompted her to come in for additional evaluation. No neck or back pain related to this. She says she felt a lightheaded or tingly sensation, over her head, it spreads to her neck, and then she gets tingling in the right upper extremity and feels subjectively weak. She feels internal tremulousness and she says when she lifted both hands up in the air with her finger spread her little finger on her right hand was twitching. Her legs felt vaguely shaky as well. She had mild shortness of breath or felt the need to exhale and sigh. She had some palpitations with this. She has felt a few tinges of left chest pain underneath her breast. All those symptoms resolved. Review of Systems GEN: No fevers or chills. CV/PULM: No current chest pain. No shortness of breath. No current palpitations. NEURO: No headaches. No loss of vision. No double vision. No dysphagia. No speech changes. No focalweakness. No sensory loss. Physical Exam Vitals & Measurements T: 36.7 ???C(Oral) TMIN: 36.3 ???C(Tympanic) TMAX: 36.8 ???C(Oral) HR: 74(Peripheral) RR: 16 BP: 95/67 SpO2: 92% HT: 149.86 cm WT: 60.6 kg GEN: General appearance normal. Well-kempt. No distress. No visualized deformities or trauma. CARDIO/VASC: Limbs without significant edema and appear well-perfused. PULM: Normal work of breathing. SKIN: Visualized skin is intact and without lesions aside from age-related findings. MS: Affect is normal. Patient is alert and generally oriented. Normal attention. LANG: Speech is fluent and non-dysarthric. EYES: Pupils equal/reactive/consensual. Ocular motility full. No pathologic nystagmus. CN: Facial sensation normal. Hearing acuity normal. Face without droop and with normal motor function. MOTOR: Muscle bulk normal. Muscle tone normal. Muscle strength normal. No tremors. REFLEXES: Reflexes normoactive throughout. No pathologic reflexes. SENSORY: Light touch normal. Vibratory sensation intact in distal extremities. CEREBELLAR: No limb ataxia. Date/Time: 06/24/2025 @0936 Level of Consciousness: Alert = 0 Current month and age: Answers both correctly = 0 Open and close eyes/lead software developer release hand: Obeys both correctly = 0 Best gaze: Normal = 0 Visual field testing: No visual field loss = 0 Facial paresis: Normal symmetric movement = 0 Motor function left arm: Normal = 0 Motor function right arm: Normal = 0 Motor function left leg: Normal = 0 Motor function right leg: Normal = 0 Limb ataxia: No ataxia = 0 Sensory: Normal = 0 Best language: No aphasia = 0 Dysarthria: Normal articulation = 0 Extinction and inattention: Normal = 0 Total Score (severe deficit >22): 0 Notes: Assessment/Plan ASSESSMENT: Recurrent episodes, not quite stereotyped and with some variability, but the commonality they have are paresthesias that spread from the head down the right upper extremity. In total, this may most likely be related to nervous/anxious symptoms. Fairly low suspicion for recurrent TIA but she does have significant cerebrovascular risk factors (smoking, hyperlipidemia, hypertension, obstructive sleep apnea). Given the somewhat stereotyped nature to this and the spreading of the paresthesias, consider left hemispheric focal seizure activity though I find this highly unlikely. Low suspicion for cervical radicular symptoms causing her episodes; I looked at her CTA neck studies to look at the cervical spine and the central canal and neuroforaminal spaces look capacious for what is worth (MRI would better show soft tissue). PLAN: 1. MRI of her brain would be desirable. She has Mccarthy rods in her back. She has had an MRI at the [facility] facility which is a 1.5 Nancy magnet. She has been told she cannot have an MRI at this facility though we also have a 1.5 Nancy magnet. Hopefully this can be arranged for in the outpatient setting at the facility where she has already safely undergone MRI. 2. Routine EEG 3. Continue the aspirin 81 mg daily which was just started at her recent hospitalization 4. Atorvastatin 80 mg daily. She is very apprehensive about statins and atorvastatin in particular.I talked with her at length about this. She knows to watch for any myalgias and (more content not included)...[facility] HospitalComment on above:Result Comment: Electronically Signed By: Sierra Mercer RN\.br\Date and Time Signed: 06/24/25 07:02 EDT\.br\Electronically Co- Signed By: German Luciano DO\.br\Date and Time Co-Signed: 06/24/25 10:12 EDT\.br\Electronically Co-Signed By: Sierra Mercer RN [id number] Note Consultation Note Chief Complaint pt arrives for c/o TIA's. pt states she is having right sided weakness. pt last known well is 1630 Reason for Consultation stroke History of Present Illness 49-year-old left handed woman, a current smoker, who has sleep apnea and is awaiting a CPAP titration trial. Back on June 05, 2025 she was seen in the emergency department with increased anxiety symptomsand had mentioned having paresthesias in both upper extremities. On June 20, 2025 she came to the emergency department complaining of right upper extremity paresthesias and feeling like she was having difficulty holding her arm up. She has been having neck and back pain and thought that may be it was somehow related to that. Yesterday she had additional events similar to June 20 event that prompted her to come in for additional evaluation. No neck or back pain related to this. She says she felt a lightheaded or tingly sensation, over her head, it spreads to her neck, and then she gets tingling in the right upper extremity and feels subjectively weak. She feels internal tremulousness and she says when she lifted both hands up in the air with her finger spread her little finger on her right hand was twitching. Her legs felt vaguely shaky as well. She had mild shortness of breath or felt the need to exhale and sigh. She had some palpitations with this. She has felt a few tinges of left chest pain underneath her breast. All those symptoms resolved. Review of Systems GEN: No fevers or chills. CV/PULM: No current chest pain. No shortness of breath. No current palpitations. NEURO: No headaches. No loss of vision. No double vision. No dysphagia. No speech changes. No focalweakness. No sensory loss. Physical Exam Vitals & Measurements T: 36.7 ???C(Oral) TMIN: 36.3 ???C(Tympanic) TMAX: 36.8 ???C(Oral) HR: 74(Peripheral) RR: 16 BP: 95/67 SpO2: 92% HT: 149.86 cm WT: 60.6 kg GEN: General appearance normal. Well-kempt. No distress. No visualized deformities or trauma. CARDIO/VASC: Limbs without significant edema and appear well-perfused. PULM: Normal work of breathing. SKIN: Visualized skin is intact and without lesions aside from age-related findings. MS: Affect is normal. Patient is alert and generally oriented. Normal attention. LANG: Speech is fluent and non-dysarthric. EYES: Pupils equal/reactive/consensual. Ocular motility full. No pathologic nystagmus. CN: Facial sensation normal. Hearing acuity normal. Face without droop and with normal motor function. MOTOR: Muscle bulk normal. Muscle tone normal. Muscle strength normal. No tremors. REFLEXES: Reflexes normoactive throughout. No pathologic reflexes. SENSORY: Light touch normal. Vibratory sensation intact in distal extremities. CEREBELLAR: No limb ataxia. Date/Time: 06/24/2025 @0936 Level of Consciousness: Alert = 0 Current month and age: Answers both correctly = 0 Open and close eyes/lead software developer release hand: Obeys both correctly = 0 Best gaze: Normal = 0 Visual field testing: No visual field loss = 0 Facial paresis: Normal symmetric movement = 0 Motor function left arm: Normal = 0 Motor function right arm: Normal = 0 Motor function left leg: Normal = 0 Motor function right leg: Normal = 0 Limb ataxia: No ataxia = 0 Sensory: Normal = 0 Best language: No aphasia = 0 Dysarthria: Normal articulation = 0 Extinction and inattention: Normal = 0 Total Score (severe deficit >22): 0 Notes: Assessment/Plan ASSESSMENT: Recurrent episodes, not quite stereotyped and with some variability, but the commonality they have are paresthesias that spread from the head down the right upper extremity. In total, this may most likely be related to nervous/anxious symptoms. Fairly low suspicion for recurrent TIA but she does have significant cerebrovascular risk factors (smoking, hyperlipidemia, hypertension, obstructive sleep apnea). Given the somewhat stereotyped nature to this and the spreading of the paresthesias, consider left hemispheric focal seizure activity though I find this highly unlikely. Low suspicion for cervical radicular symptoms causing her episodes; I looked at her CTA neck studies to look at the cervical spine and the central canal and neuroforaminal spaces look capacious for what is worth (MRI would better show soft tissue). PLAN: 1. MRI of her brain would be desirable. She has Mccarthy rods in her back. She has had an MRI at the [facility] facility which is a 1.5 Nancy magnet. She has been told she cannot have an MRI at this facility though we also have a 1.5 Nancy magnet. Hopefully this can be arranged for in the outpatient setting at the facility where she has already safely undergone MRI. 2. Routine EEG 3. Continue the aspirin 81 mg daily which was just started at her recent hospitalization 4. Atorvastatin 80 mg daily. She is very apprehensive about statins and atorvastatin in particular.I talked with her at length about this. She knows to watch for any myalgias and (more content not included)...[facility] HospitalComment on above:Result Comment: Electronically Signed By: Sierra Mercer RN\.br\Date and Time Signed: 06/24/25 07:02 EDT\.br\Electronically Co- Signed By: German Luciano DO\.br\Date and Time Co-Signed: 06/24/25 10:12 EDT 06-24-2025 NoteHistory and Physical Chief Complaint pt arrives for c/o TIA's. pt states she is having right sided weakness. pt last known well is 1630 History of Present Illness Patient is a very pleasant 49-year-old white female with a past medical history of recently diagnosed obstructive sleep apnea awaiting follow-up described CPAP titration study, hypertension, hyperlipidemia, history of PTSD, history of bipolar disorder with described panic attacks, asthma, GERD, history of continued tobacco use and osteoporosis. Patient had a recent hospitalization where she presented with very similar symptoms to what is described below. CT imaging was negative for acute intracranial pathology. CTA demonstrated no large vessel occlusion. CRP to rule out inflammatory vasculitis was within normal limits. As it was a weekend we are unable to get an echocardiogram. Due to prior history of Mccarthy rods she was unable to get an MRI at our facility therefore this was to be planned along with the echocardiogram in an outpatient basis. Patient was did on aspirin and atorvastatin. Patient does admit to not having taken the atorvastatin since discharge due to potential concerns for side effects see below. Patient presented as a return visit on this date with below Patient states Monday afternoon i.e. 22 June, while sitting in bed developed similar symptoms to those she had on her recent hospitalization. She describes a tingling sensation of her head that migrated down to both of her upper extremities involving more the right side than the left. She tested to see if there was any drift which there was not and her symptoms were resolved so she did not seek medical attention. However when she presented on this date 23 June she once again had concerning symptoms. She states it was 445 she was on the phone with her girlfriend when she developed the same set of symptoms but on this occasion felt her heart racing, she admitted to some mild diaphoresis she felt the warmth, over her with some mild lightheadedness mild shortness of breath and nausea. She states the symptoms resolved she had 2 more episodes of recurrence of the same symptom with her last one occurring at 715 but on this occasion she noted a drift of the right upper extremity andshe felt like I did not want to talk and was therefore brought to the emergency department. She es timates the symptoms lasted well over an hour. However while awaiting my arrival she states she didhave brief recurrence of symptoms, I had been advised that patient was having chest pain and EKG was performed which demonstrated normal sinus rhythm with no acute changes. Patient describes episodesof chest discomfort as being pinpoint was very brief nonradiating and occurred on 2 separate occasions. Patient states when she had the symptoms at home she did not feel that it was a panic attack for she measured her blood pressure which was not elevated and her heart rate was less than 100. Review of Systems Constitutional: no fever, no chills, Skin: no Jaundice, no rash, no lesions, nopetechiae ENMT: no ear pain, no sore throat, Respiratory: no shortness of breath, no cough, no orthopnea, no wheezing Cardiovascular: no chest pain, no palpitations, no edema Gastrointestinal: no nausea, no vomiting, no diarrhea, no GI bleeding Genitourinary: no dysuria, no hematuria, Musculoskeletal: no back pain, no trauma Neurologic: no headache, no dizziness, mild numbness, no weakness Psychiatric: no sleeping problems, no irritability, anxiety Heme/Lymph: no bleeding tendency, no bruising tendency, no petechiae, no swollen nodes Allergy/Immunologic: no seasonal allergies, no food allergies, no recurrent infections, no impairedimmunity Additional ROS info: Except as noted in the above Review of Systems and in the History of Present Illness all other systems have been reviewed and are negative or noncontributory. Scoring Evans Fall Risk Score: 45 High (06/23/25) Physical Exam Vitals & Measurements T: 36.5 ???C(Oral) TMIN: 36.3 ???C(Tympanic) TMAX: 36.8 ???C(Oral) HR: 58(Peripheral) RR: 18 BP: 136/80 SpO2: 98% HT: 149.86 cm WT: 60.6 kg General: alert, no acute distress Skin: warm, dry Head: no trauma, normocephalic Neck: Trachea midline, no adenopathy, no tenderness Eye: normal conjunctiva, sclera clear ENMT: TM's clear, oral mucosa moist, no pharyngeal erythema or exudate Cardiovascular: regular rate and rhythm, normal peripheral perfusion Respiratory: Lungs CTA, respirations non labored Chest wall: no deformity. Gastrointestinal: soft, non distended, no tenderness, no guarding. Osteopathic exam - Pt was examined in supine and seated positions. Pt with diminished lumbar lordosis, increased thoracic kyphosis. No profound scoliosis. Extremities: no deformity, no trauma Neurological: oriented x 4, LOC appropriate for age,, motor strength equal & normal bilaterally, sensation equal & normal bilaterally, speech normal patient had an NIH of 0. Sh (more content not included)...[facility] Comment on above:Result Comment: Electronically Signed By: Noel MORALES DO\.br\Date and Time Signed: 06/24/25 02:20 [id number] NoteDischarge Summary Admission and Discharge Information Admitting Physician - Noel MORALES DO Consulting Physician - Wicho Rivas MD Admitting Diagnoses: 1. Stroke-like symptoms, 06/20/2025 Discharge Order Date Discharge Patient - Ordered -- 06/21/25 17:35:00 EDT Discharge Diagnoses 1. Stroke-like symptoms, Stroke-like symptoms 2. Hypokalemia, 06/20/2025 3. Hyponatremia, 06/20/2025 4. Headache, 06/20/2025 5. Hypertension, 06/20/2025 6. Hyperlipidemia, 06/21/2025 7. Tobacco abuse, 06/20/2025 8. Obstructive sleep apnea, 06/20/2025 9. Asthma, 06/20/2025 10. PTSD (post-traumatic stress disorder), 06/20/2025 11. Bipolar disorder, 06/20/2025 12. Chronic GERD, 06/20/2025 13. Encounter for deep vein thrombosis (DVT) prophylaxis, 06/20/2025 Procedure History Appendectomy, x2, Colonoscopy, Hysterectomy, Repair of recurrent inguinal hernia, spine surgery for scoliosis. Hospital Course Nathaniel Marcial is a 49-year-old female with past medical history significant for hypertension, recently diagnosed obstructive sleep apnea pending CPAP titration study, current cigarette smoker with 40+pack-year history, PTSD, anxiety/depression, bipolar disorder, asthma, GERD. Patient presented to [facility] ER 06/20/2025 with complaints of numbness/tingling in her head right arm weakness. She has been experiencing the symptoms over the past week. She was seen at [facility] a week or soago due to elevated blood pressure and similar symptoms. On arrival, head CT was negative for acuteprocess. NIH was 2 for right upper extremity drift. Head and neck CTA was negative for large vessel occlusion. Patient was given aspirin and admitted to hospital service for further evaluation. Patient was evaluated by neurology today. Unfortunately, due to her Mccarthy rods in her back from the , [facility] is unable to perform MRI. This will need to be done as outpatient. Per neurologist, acceptable to perform MRI as well as echocardiogram as an outpatient. Neurology recommendsadding aspirin. Her lipid panel is uncontrolled with LDL greater than 130 and she is started on high intensity statin. Of note, labs on arrival reveal significant hypokalemia as well as hyponatremia. This is likely dueto hydrochlorothiazide use. Patient was given IV fluids as well as potassium replacement. Repeat BMP evening of discharge, Na is 133 which appears to be her baseline. K was 4.4. She will be discharged with potassium supplement, as well as instructions to DC HCTz. Med changes: Aspirin 81 mg daily added, atorvastatin 80 mg nightly added, hydrochlorothiazide discontinued, KCl supplement daily Follow up: PCP within 1 week, recommend repeat BMP at that time to ensure stable potassium, hydrochlorothiazide, and recheck blood pressure control Imaging outpatient: She will need MRI which will need to be arranged at outside facility that has alow Nancy per patient, echocardiogram is ordered and [facility] scheduling will reach outto schedule this Discharge management: 35 minutes spent on discharge management including patient education, coordination of care with specialist/therapies/case management. See today's progress note for further details of care. Message sent via Joost to PCP to update and ensure proper follow up/scheduling of out side facility MRI. Services Consulted Consult to Neurology - Ordered -- 06/20/25 22:55:00 EDT, Stroke, Consult and Co-manage Physical Exam Vitals & Measurements T: 36.8 ???C(Oral) TMIN: 36.5 ???C(Oral) TMAX: 36.8 ???C(Oral) HR: 90(Monitored) RR: 18 BP: 138/91 SpO2: 91% HT: 149.86 cm WT: 59.1 kg General: Adult female. Alert, calm, NAD Eyes: PERRLA. Glasses. HEENT: Mucous membrane pink, moist, Normal tongue. Edentulous Neck:supple, no JVD Lungs: on RA lungs clear Cardio: Regular S1, S2, no murmur appreciated. Good perfusion Pulses: Normal capillary refill Abdomen: Soft, non-distended, non-tender, + BS x4 Musculoskeletal: No deformity or scoliosis noted. Normal ROM for age. Integumentary: Warm, dry, intact Extremity: No clubbing, no edema Neurologic: Alert, oriented x 4 follows commands, no obvious focal deficits Mental status: Pleasant & cooperative, tearful at times, anxious at times Tests Performed BMP -- Results Pending -- Cortisol -- Results Pending -- CT Head or Brain w/o Contrast CTA Head CTA Neck XR Chest Single View Please visit your patient portal for your results or contact your primary care physician. Discharge Plan Patient Discharge Condition Stable, improved Discharge Disposition Home Discharge Diet Discharge Diet(s): Regular (06/21/25 11:26:00) Discharge Medication List Prescriptions albuterol 0.083% Inh Teresita 3 mL, 0.083% - 3mL dosing units, Inhalation, q4hr, PRN, 3 refills APAP/butalbital/caffeine 325 mg-50 mg-40 mg Tab, 1 tab(s), Oral, q4hr, PRN aspirin 81 mg Oral EC Tab, 81 mg= 1 tab(s), Oral, Daily atorvastatin 80 mg Tab, 80 mg= 1 tab( (more content not included)...[facility]Result Comment: Electronically Signed By: Obdulia Menard CNP\.br\Date and Time Signed: 06/21/25 17:41 EDT\.br\Electronically Co-Signed By: Shar GALVAN MD\.br\Date and Time Co- Signed: 06/21/25 18:20 [id number] NoteProgress Note-Physician Basic Information 49-year-old female with history of hypertension, tobacco abuse, untreated obstructive sleep apnea, as well as psychiatric disorders admitted with strokelike symptoms Assessment/Plan 1. Stroke-like symptoms, (R29.90: Unspecified symptoms and signs involving the nervous system)Stroke-like symptoms Present on arrival NIH [address]: Negative Head/Neck CTA: Negative MRI ordered but patient unable to have imaging at [facility] due to Mccarthy rods placed in (NSGsupervisor confirmed with MR/radiology staff) Lipid note: LDL 174 -> high intensity Lipitor initiated A1c pending PT/OT evaluated, no needs Passed dysphagia screening Neurology has seen: MRI recommended, but if unable to obtain at [facility] due to rods, acceptable for outpatient; Echocardiogram as outpatient; Add asa 81 mg daily 2. Hypokalemia (E87.6: Hypokalemia) K 2.3 on admit -> now 3.2 Likely secondary to HCTZ use and diarrhea Continue IV/PO supplementation Hold HCTz Mg is 2.3 Repeat BMP 1600 to re-evaluate 3. Hyponatremia (E87.1: Hypo-osmolality and hyponatremia) Hypotonic Hyponatremia secondary to HCTz use and diarrhea DC HCTz, added to allergies as intolerance Na 126 on admit improved to 130, now 129 Urine studies noted Receiving NS IVF with IV KCl Repeat BMP 1600 to re-evaluate 4. Headache (R51.9: Headache, unspecified) IV Toradol PRN Fioricet 5. Hypertension (I10: Essential (primary) hypertension) BP is normotensive Resume Toprol XL given c/o palpitations Follow trends off HCTz 6. Hyperlipidemia (E78.5: Hyperlipidemia, unspecified) Lipid uncontrolled: Total 303, Trigs 211, LDL 174 Initiate atorvastatin 80 mg QD 7. Tobacco abuse (Z72.0: Tobacco use) Nicotine patch Smoking cessation 8. Obstructive sleep apnea (G47.33: Obstructive sleep apnea (adult) (pediatric)) States recently diagnosed, due for CPAP titration study 9. Asthma (J45.909: Unspecified asthma, uncomplicated) Clinically stable, PRN albuterol 10. PTSD (post-traumatic stress disorder) (F43.10: Post-traumatic stress disorder, unspecified) Following with Psychiatry 11 Bipolar disorder (F31.9: Bipolar disorder, unspecified) Seroquel and PRN Xanax Managed by Psychiatrist 12. Chronic GERD (K21.9: Gastro-esophageal reflux disease without esophagitis) PPI 13. Encounter for deep vein thrombosis (DVT) prophylaxis (Z29.9: Encounter for prophylactic measures, unspecified) Lovenox Patient is unable to have MRI here- per neuro, acceptable to add asa/statin and get MRI/echo as outpatient Will repeat BMP this afternoon- if lytes stabilized, will plan for DC this afternoon FULL CODE Subjective Patient reports headache. She has intermittent right sided numbness/tingling sensation but she reports this has been present the past week. PT OT worked with her and she is safe for discharge home. Blood pressure is normotensive. Review of Systems Additional ROS info: Except as noted in the above Review of Systems and in the History of Present Illness all other systems have been reviewed and are negative or noncontributory Objective Vitals & Measurements T: 36.7 ???C(Oral) TMIN: 36.5 ???C(Oral) TMAX: 36.7 ???C(Oral) HR: 72(Monitored) RR: 16 BP: 134/86 SpO2: 94% HT: 149.86 cm WT: 59.1 kg Intake & Output This visit (24 hour periods starting at 07:00 EDT) 06/21/25 * 06/20/25 06/19/25 Total Summary Intake mL -- 789.35 -- Output mL -- -- -- Fluid Balance -- 789.35 -- Intake (5) Generic Diluent, potassium chloride mL -- 98.62 -- Oral Intake mL -- 300 -- Sodium Chloride 0.9% intravenous solution 500 mL mL -- 389.23 -- diazepam mL -- 0.5 -- ketorolac mL -- 1 -- Total -- 789.35 -- Output (0) Counts (1) Stool Count 1 -- -- * This column has not completed the indicated time period. Physical Exam General: Adult female. Alert, calm, NAD Eyes: PERRLA. Glasses. HEENT: Mucous membrane pink, moist, Normal tongue. Edentulous Neck:supple, no JVD Lungs: on RA lungs clear Cardio: Regular S1, S2, no murmur appreciated. Good perfusion Pulses: Normal capillary refill Abdomen: Soft, non-distended, non-tender, + BS x4 Musculoskeletal: No deformity or scoliosis noted. Normal ROM for age. Integumentary: Warm, dry, intact Extremity: No clubbing, no edema Neurologic: Alert, oriented x 4 follows commands, no obvious focal deficits Mental status: Pleasant & cooperative, tearful at times, anxious at times Lab Results WBC: 8.3 E9/L (06/20/25 17:50:00) RBC: 4.4 E12/L (06/20/25 17:50:00) HGB: 15.6 gm/dL (06/20/25 17:50:00) Hct: 43.5 % (06/20/25 17:50:00) MCV: 98.9 fL (06/20/25 17:50:00) MCH: 35.4 pg High (06/20/25 17:50:00) MCHC: 35.8 gm/dL (06/20/25 17:50:00) RDW: 14.5 % High (06/20/25 17:50:00) Platelet: 432 E9/L (06/20/25 17:50:00) MPV: 7 fL (06/20/25 17:50:00) Neutro Auto: 54.7 % (06/20/25 17:50 (more content not included)...[facility]:Result Comment: Electronically Signed By: Obdulia Menard CNP\.br\Date and Time Signed: 06/21/25 11:44 EDT\.br\Electronically Co-Signed By: COLE DESHPANDE, Haleighfo\.br\Date and Time Co- Signed: 06/21/25 11:49 [id number] NotePatient Education - Text Transient Ischemic Attack You have had a transient ischemic attack (TIA). This means that the nervous system did not work properly for a short time. It is caused by a low oxygen supply to an area of your brain. It may be caused by a small blood clot or hardening of the arteries. This is a temporary neurologic condition. It usually gets better within thirty minutes, but always within twenty-four hours. If this does not resolve within that time period, it is defined as a stroke. TIA's are warning signs that you are at risk for having a stroke. A small percentage of patients who have had a TIA will have a stroke within acouple days, and up to 20% will have a stroke within 3 months. PREVENTION The likelihood of a stroke can be decreased by appropriate treatment of high blood pressure, high cholesterol, diabetes, and by stopping smoking. RISK FACTORS: If you have been told by your doctor or nurse practitioner that you have any of the following risk factors for stroke, work with your health infant childcare provider to control them. Risk Factors: High Blood Pressure: High blood pressure is one of the main causes of stroke. It is the most important risk factor to control. Take your blood pressure medication, lose weight, increase your activity, and limit your salt intake to help control your blood pressure.Take your your blood pressure and write it down and then take them to your next doctor's appointment. Smoking: If you smoke: QUIT! We can help. Please call [facility] at [phone] ([facility]), or [phone], ext. [phone] Diabetes: Work with your healthcare professional to keep your blood sugar under control. Check yourblood sugar and take the results to your next doctor's visit. Take your medications as directed. Eating a healthy diet and exercising will also help keep your diabetes under control. For information on [facility] please call, . Carotid or other Artery Diseases: The carotid arteries in your neck carry blood to the brain. A stroke can be caused by a blood clot blocking an artery that has been damaged by a fatty buildup insidethe artery wall. Discuss ways to manage this with your health care provider. Atrial Fibrillation (A Fib): In A fib, your heart does not have a normal beat. This may allow clotsto form and puts you at a greater risk for having a stroke. Work with your health care provider to control your A fib. Your doctor may order special medication that helps prevent clots from forming. High blood cholesterol or high blood fats: High cholesterol increases your risk of stroke. Exerciseregularly, but talk to your health care provider first. A diet low in fat and cholesterol can help.If you have any questions about a low fat, low cholesterol diet, you can call our [employer] heat treat technician at [phone] ext [phone]. The goal for total cholesterol is less than 200, and for LDL or the bad cholesterol is less than 100. Lifestyle Management: You increase your risk of stroke if you are overweight or obese, are not veryactive, or drink too much alcohol. Enjoy a diet rich in fruits and vegetables. Exercise regularly and drink alcohol in moderation or no more than two drinks a day for men and no more than one drink aday for non- women, or don't drink at all. This will help decrease your risk of stroke. Oral Contraceptives: Taking control pills or the pill can be a risk factor for stroke especially if you smoke. Discuss using the oral contraceptives and your risk of stroke with your health infant childcare provider. If this is your first ischemic attack, you will need further evaluation by your caregiver. You may need appropriate treatment and lifestyle changes as recommended. A certain number of patients with TIA go on to develop a stroke. It is very important that you follow up, as instructed, with your caregiver or a specialist in order to continue your evaluation and decide on a course of treatment. The failure to follow up in the time frame indicated by your caregiver may lead to worsening of your condition and permanent disability and possible .If you develop signs and symptoms of a stroke, TIME IS OF THE ESSENCE! Call 911. Medications to dissolve a blood clot can only be used within four and a half hours of the onset of symptoms.After that time, treatment of stroke depends on duration of symptoms, severity, and cause. It???s important to know and control your risk factors, but it is also important to recognize the signs and symptoms of stroke/TIA and know what to do: Call ???911??? if any of these things happen: ??? Sudden numbness or weakness of the face, arm, or leg especially on one side of the body. ??? Sudden confusion, trouble speaking, or understanding. ??? Sudden trouble seeing in one or both eyes. ??? Sudden trouble walking, dizziness, loss of balance or coordination ??? Sudden severe headache with no known cause * It is very important for you to f (more content not included)...[facility]09-27-2025 NoteInterdisciplinary Note - PT Recommendations: Pt seen for PT evaluation with an [facility] score of 21/24. Pt performs sit<>stand transfer with distant supervision this date. Close supervision with ambulation due to generalizedunsteadiness, but good safety awareness noted. Assist for IV line management. Ambulated x15ft x 2 no AD and no LOB. Pt to be seen during inpt stay to prevent further deconditioning and return to prior level of function for a safe D/C home. No PT needs post D/C. [facility]09-27-2025 NoteConsultation Note Chief Complaint Right arm numbess/tingling 1515 Reason for Consultation Stroke History of Present Illness Patient is a 49-year-old white female who I was asked to see in neurological consultation for stroke. The patient has a past medical history significant for hypertension, sleep apnea, previous smoker, bipolar disorder, and anxiety disorder. The patient states that she developed sensory disturbance manifest as paresthesias in her right arm and right face. She also reports some cramping and inability to move her right hand. The patient was evaluated in the emergency room and found to have electrolyte abnormalities including hypokalemia. The patient recently been started on hydrochlorothiazide for hypertension. Patient did have a CT scan of the brain which did not reveal evidence of acute infarct or hemorrhage. The patient did have CT angiogram of the head and neck which did not reveal evidence of large vessel intracranial extracranial cerebral artery stenosis or occlusion. The patient denies any headaches, nausea, vomiting associated with this episode. The patient states that her symptoms have improved but does not feel that she is back to normal. The patient denies similar symptoms in the past. Review of Systems Additional ROS info: Except as noted in the above History of Present Illness all other systems havebeen reviewed when possible. Physical Exam Vitals & Measurements T: 36.7 ???C(Oral) TMIN: 36.5 ???C(Oral) TMAX: 36.7 ???C(Oral) HR: 65(Monitored) RR: 16 BP: 150/87 SpO2: 96% HT: 149.86 cm WT: 59.1 kg The patient is awake and alert. The patient is oriented x3. Language is intact including comprehension and fluency, fund of knowledge is intact, memory is intact. Cranial nerves: Pupils are equal round and reactive to light and accommodation, extraocular movements intact, visual grant are full to confrontation, face is symmetric bilaterally, sensations intactin the face, palate elevates bilaterally, tongue protrudes midline, hearing is intact to finger rub, shoulder shrug is symmetric. Motor exam: Strength testing is 5 out of 5 MRC scale strength in all 4 extremities. Deep tendon reflexes are 2+ and symmetric. Tone is normal throughout. Plantar reflexes flexor bilaterally. Sensory exam: Sensations intact to light touch and pinprick sensation in all 4 extremities. Cerebellar exam: [id number] reveals no ataxia. The neurological exam was performed by a healthcare professional which was witnessed and supervisedby me via video telemedicine visit consented to by the patient or appropriate patient unit support representative. Date/Time:06/21/25 0756 Level of Consciousness: Alert = 0 Current month and age: Answers both correctly = 0 Open and close eyes/lead software developer release hand: Obeys both correctly = 0 Best gaze: Normal = 0 Visual field testing: No visual field loss = 0 Facial paresis: Normal symmetric movement = 0 Motor function left arm: Normal = 0 Motor function right arm: Normal = 0 Motor function left leg: Normal = 0 Motor function right leg: Normal = 0 Limb ataxia: No ataxia = 0 Sensory: Mild to moderate decrease in sensation = 1 Best language: No aphasia = 0 Dysarthria: Normal articulation = 0 Extinction and inattention: Normal = 0 Total Score (severe deficit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 can delay healing. [...] are the result of a blunt trauma thatcauses bleeding and injury to the tissues under [...] provider. Document Revised: 12/16/2020 Document Reviewed: 12/16/2020 [employer] Patient Education 2023 [employer]. Follow Up Care 02/02/2025 18:31:47 With:German Link Address: [address] [place], [place] [id number]- Business (1) When:02/05/2025 19:39:38 [facility] 05-11-2025 NoteED Patient Education Note Orthopedics Rib Contusion A [...] MRI?to determine if there were internal injuries orbroken bones (fractures). How is this treated? This condition may be treated with: ??? Rest. This is often the best treatment for a rib contusion. ??? Ice packs. This reduces swelling and inflammation. ??? Deep-breathing exercises. These may be recommended to reduce the risk for lung collapse and pneumonia. ??? Medicines. Gykc-tsq-ufqehxk or prescription medicines may be given to control pain. ??? Injection of a numbing medicine around the nerve near your injury (nerve block). Follow these instructions at home: Medicines ??? Take nsna-tto-pxxntgw and prescription medicines only as told by your health care provider. ??? Ask your health care provider if the medicine prescribed to you: ? Requires you to avoid driving or using machinery. ? Can cause constipation. You may need to take these actions to prevent or treat constipation: ? Drink enough fluid to keep your urine pale yellow. ? Take zmnw-ipq-yclilev or prescription medicines. ? Eat foods that [...] nicotine or tobacco, such as cigarettes, e-cigarettes, andchewing tobacco. These can delay healing. If you [...] Revised: 12/16/2020 Document Rev (more content not included)...[facility]05-11-2025 Evaluation + Plan noteExtracted from:Title:ED NoteAuthor:Mason JAUREGUI, Chris Watson.Date:02/02/25 Contusion of rib on left verónica e (S20.212A: Contusion of left front wall of thorax, initial encounter) Orders: ketorolac, 30 mg = 1 mL, Injection, IntraMuscular, Once, Stop date 02/02/25 19:38:00 EDT, STAT, Start date 02/02/25 19:38:00 EDT, 02/02/25 19:38:00 EDT naproxen, 500 mg = 1 tab(s), Oral, BID, X 10 day(s), # 20 tab(s), Refills(s) 0, Pharmacy: [facility]/pharmacy #[id number], 149, cm, 02/02/25 18:37:00 EDT, Height/Length Dosing, 65, kg, 02/02/25 18:37:00 EDT, Weight Dosing triamcinolone, 40 mg = 1 mL, Susp-Inj, IntraMuscular, Once, Stop date 02/02/25 19:38:00 EDT, STAT, Start date 02/02/25 19:38:00 EDT, 02/02/25 19:38:00 EDT XR Ribs Unilat 3 Views Left w/ PA Chest [facility] [id number] Telephone encounter Note* Telephone Encounter - Georgie Rodríguez NP - 11/17/2024 2:32 PM EST HR OOO, rx sent. [id number] Miscellaneous Notes* Telephone Encounter - Georgie Rodríguez NP - 11/17/2024 2:32 PM EST HR OOO, rx sent. documented in this encounterCox Walnut [id number] NoteUTP CARDIOLOGY PROGRESS NOTE HPI: Nathaniel Marcial [...] understanding -Follow-up in cardiology clinic [facility] Discharge instructions Patient Education 11/26/2023 20:23:06 Contusion, Txvy-jv-Fcmv Contusion A contusion is a deep bruise. [...] sitting or lying down. General instructions Take wrwb-kjv-ehrudzo and prescription medicines only as told by [...] is also called RICE. Youmay be given kmqk-gdc-saunxak medicines for pain. Contact a doctor if [...] provider. Document Revised: 07/07/2022 Document Reviewed: 07/07/2022 [employer] Patient Education 2022 Therapeutic Proteins. Follow Up Care 11/26/2023 19:41:00 With:Carol DESHPANDE, Gracy Graff Address: [place] [address]- When:11/29/2023 [facility]03-03-2024 Evaluation + Plan noteExtracted from: Title:ED NoteAuthor:Jessica Bush PA-CDate:11/26/23 1. Contusion of toe, left (S 90.122A: Contusion of left lesser toe(s) without damage to nail, initial encounter) Orders: XR Foot 3+ Views Left [facility]01-19-2024 Hospital Discharge instructions Patient Education 10/13/2023 18:55:44 Abdominal Pain, Adult, Pgxo-lc-Etgp Abdominal Pain, Adult Many things can cause belly (abdominal) pain. Most times, belly pain is not dangerous. Many cases of belly pain can be watched and treated at home. Sometimes, though, belly pain is serious. Your doctor will try to find the cause of your belly pain. Follow these instructions at home: Medicines Take uesf-yjw-ebnlbgc and prescription medicines only as told by [...] your belly pain for any changes. Take cjnm-fqi-zirczkz and prescription medicines only as told by [...] provider. Document Revised: 01/20/2020 Document Reviewed: 01/20/2020 [employer] Patient Education 2022 Therapeutic Proteins. 10/13/2023 18:55:44 Constipation, Adult Constipation, Adult Constipation [...] as fried or sweet foods. These include indian fries, hamburgers, cookies, candies, and soda. Drink enough fluid to keep your urine pale yellow. General instructions Exercise regularly or as told by your health care provider. Try to do 150 minutes of moderate exercise each week. Use the bathroom when you have the urge to go. Do not hold it in. Take yody-hcz-xjrjgjl and prescription medicines only as told by [...] to keep your urine pale yellow. Take upgz-sxe-uexmpfb and prescription medicines only as told by your health care provider. This includes any fiber supplements. This information is not intended to replace advice given to you by your health care provider. Make sure you discuss any questions you have with your health care provider. Document Revised: 07/29/2020 Document Reviewed: 07/29/2020 [employer] Patient Education 2022 [employer] Follow Up Care 10/13/2023 15:41:06 With:Gracy Medina Address: [address] [place] [address]- Business (1) When:10/16/2023 18:37:35 Comments:Follow-up with your primary care provider in 3 to 5 days. If symptoms worsen, do not improve, or new symptoms arise please report back to emergency department for further evaluation. [facility]12-06-2023 Evaluation + Plan note Diagnostic Tests Pending * Clostridium difficile by PCR 08/30/23 [facility]08-17-2023 Miscellaneous Notes* Telephone Encounter - [...] calling her back today. documented in [facility] Miscellaneous Notes* Telephone Encounter - [place]a Crabtree - 05/11/2023 10:34 AM EDT Left VM and sent Lystt message to patient to see if she wants to schedule shoulder surgery with Dr. Myers on 05/18. Waiting for call back documented in this encounterMer[facility]. [facility]07-[facility]-2023 NoteHNO ID: [id number] Author: Sharita Myers MD Service: ? Author [...] As you know she is a 47-year-old zreg-ghru-gfnozujt female with complaints in her shoulder that [...] with resisted ex (more content not included)...[facility]07-17-2023 NoteHNO ID: [id number] Author: RT Aleida(R) Service: Radiology Author Type: [...] RT Slim(R) April 10, 2023 12:25 PMEn[facility]07-17-2023 History of Present illness Narrative* Sharita [...] As you know she is a 47-year-old wifx-utdl-jcinvuiq female with complaints in her shoulder that [...] TIME: 1:48 PM PAGER: documented in this encounterMer[facility]. [facility]07-06-2023 NoteHNO ID: [id number] Author: Corry Conroy Service: ? Author Type: [...] Signature: Corry Conroy March 30, 2023 2:00 [facility]07-06-2023 NotePatient Outreach (NETNAV) NATHANIEL MARCIAL ([id number]) 1975 F Date Time Provider Department 03/30/23 NO PCP NETNAV During your visit today, we recorded the following information about you: Corry Conroy 03/30/2023 2:01 PM Signed POPULATION HEALTH NAVIGATION OUTREACH Action/ scheduled Patient Identified by Name and : [...] gangr*07/08/2021 Encounter Status:Closed by CORRY LIN [facility]/23[facility] History of Present illness Narrative* [...] 30, 2023 2:00 PM documented in this encounterMercy Health St. [facility]07-[facility]-2023 NoteHNO ID: [id number] Author: Verónica Duarte PA-C Service: ? Author Type: Physician Wildlife Refuge Manager Type: Progress Notes Filed: 03/30/2023 12:43 PM [...] seen Dr. Nate Gavin with [facility] in [place] and ordered a MRI of her shoulder [...] belly press test. Positive speeds test. Positive [place]'s test. Positive impingement signs. Positive Neer sign. Neurovascular intact distally with 2+ radial pulses bilaterally. Last XR Shoulder - Impression Only No resulted procedures found. X-rays right shoulder 01/19/23: AVN right hum (more content not included)... [facility]07-06-2023 Instructions* Patient Instructions* Verónica Duarte PA-C - 03/30/2023 11:38 AM EDT [address] [phone] ([place]) PT: [phone] documented in [address] encounterMer[facility]. [facility]07-[facility]23 History of Present illness Narrative* Verónica [...] seen Dr. Nate Gavin with [facility] in [place] and ordereda MRI of her shoulder from [...] belly press test. Positive speeds test. Positive [place]'s test. Positive impingement signs. Positive Neer sign. [...] R glenohumeral Informed Consent Consent Obtained: Verbal [place] Protocol A moment to CARE was completed. [...] information obtained and documented by the physician child care assistant. I examined the patient and evaluated all available films and pertinent documents. We discussed the case and I agree withthe plans as outlined in this note. SIGNATURE: Verónica Duarte PA-C PATIENT NAME: Nathaniel Marcial DATE: March 30, 2023 TIME: 11:13 AM documented in this encounterMercy Health St. [facility]07-03-2023 NoteHNO ID: [id number] Author: Aureliano Vann DPM Service: ? Author [...] with the patient. - (more content not included)...[facility]07-03-2023 Instructions* Patient Instructions* Aureliano Vann DPM - 03/27/2023 1:47 PM EDT Please schedule PVR (blood flow) [phone] documented in [address] encounterMer[facility]. [facility]07-03-2023 NoteHNO ID: [id number] Author: Jevon Lemons Service: ? Author Type: Gas Controller Type: Progress Notes Filed: 03/27/2023 12:28 PM [...] BY: Jevon Lemons March 27, 2023 12:28 [facility]07-03-2023 History of Present illness Narrative* Aureliano [...] Instructions: Re: Nathaniel Marcial : 1975 To [employer] [place] [employer] Public [employer] Registration Division The above [...] contact them, they can be reached at [phone]. For [place] appointments: [phone]. Order Specific Question: Does consulting provider have [...] 2023 TIME: 12:58 PM documented in this encounterMercy Health St. [facility]07-03-2023 History of Present illness Narrative* Jevon [...] 27, 2023 12:28 PM documented in this encounterMercy Health St. [facility]05-09-2023 Hospital Discharge instructions Patient Education 01/31/2023 [...] or salas your foot. General instructions Take mkix-mnb-kapgzge and prescription medicines only as told by [...] provider. Document Revised: 01/01/2021 Document Reviewed: 01/01/2021 [employer] Patient Education 2022 Therapeutic Proteins. Follow Up Care 01/31/2023 09:38:16 With:Nate Gavin Address: [address] [place] [address]- Business (1) When:02/03/2023 11:08:08 With:Gracy Medina Address: [address] [place] [address]- Business (1) When:02/03/2023 11:08:03 [facility]03-21-2023 Evaluation note* Encounter Date Diagnosis Assessment Notes Treatment Notes Treatment Clinical Notes Nov, Abdominal pain (ICD-10 - R10.9) [employer] Other 02-18-2023 Evaluation + Plan noteExtracted from:Title: ORTHO: H&PAuthor:Nate Gavin DO ADate:11/12/22 Impression and Plan 47-year-old female with a trimalleolar fracture/subluxation of the left ankle. I reviewed the history, physical exam, imaging studies, and diagnosis with the patient. Recommendation is made for operative intervention. We will proceed with open reduction internal fixation of theleft ankle. Patient has not had anything to eat or drink since 9:30 PM last night. I reviewed the risks, benefits, complications, and expectations of surgery. The risks include, but are not limited to, risk of anesthesia, infection, neurovascular injury, DVT, PE, and . We will consult physicaltherapy postoperatively for gait training and attempt to discharge the patient home later today. A total of 45-59 minutes was spent on this patient encounter including chart review, history taking, physical exam, diagnostic study review, patient counseling and discussion, entering information into the patient s medical record, and coordinating care. Extracted from:Title:ED NoteAuthor:Gloria Rosen M.D. HDate:11/12/22 1. Trimalleolar fracture of left ankle (S82.852A: [...] NPO Diet XR Ankle 3+ Views Left [facility]02-18-2023 Hospital Discharge instructions Patient Education 11/12/2022 09:42:18 [place] - Ankle Fracture Post Op (Custom) (Custom) [place], [place] [facility] DISCHARGE INSTRUCTIONS: ANKLE FRACTURE [...] office evaluation. Nate Gavin, DO [facility] [address] [place] [id number] Reviewed: 12-31 Follow Up Care 11/12/2022 06:46:16 With:Nate Gavin Address: [address] [place] [address]- Business (1) When:2 weeks [facility]11-03-2022 NoteHNO ID: [id number] Author: Ronan Cabello MD Service: ? Author [...] our notes. Patient consented for study? Not applicableFire[facility]11-03-2022 NoteHNO ID: [id number] Author: Donna Donis Ms Service: ? Author Type: ? Type: Progress Notes Filed: 07/28/2022 1:17 PM Note Text: GENERAL SURGERY CLINIC NOTE Nathaniel Marcial [id number] HPI: Nathaniel Marcial is a 46 year [...] not recall but is following with a marketing business analyst in 1 week. O: BP 125/89 Pulse [...] her decision on how to proceed. [facility] Jewels [facility] History of Present illness Narrative* Ronan [...] EDT GENERAL SURGERY CLINIC NOTE Nathaniel Marcial [id number] HPI: Nathaniel Marcial is a 46 year [...] not recall but is following with a marketing business analyst in 1 week. O: BP 125/89 Pulse [...] Ms Jul 28, 2022 documented [address]11-03-2022 Nurse Note* Dalton Lee - 07/28/2022 [...] Temperature: No Drains: No documented in this encounterMercy Health St. [facility]08-10-2022 Evaluation note* Encounter Date Diagnosis Assessment Notes Treatment Notes Treatment Clinical Notes Apr, Irritable bowel syndrome with di arrhea (ICD-10 - K58.0) Apr,bdominal pain (ICD-10 - R10.9) Apr,iarrhea (ICD-10 - R19.7) Apr,loating (ICD-10 - R14.0) [employer] Other 07-07-2022 Hospital Discharge instructions Patient Education [...] exercise. Managing pain, stiffness, and swelling Take jgwn-esn-tjrhggb and prescription medicines only as told by [...] 09/11/2006 Document Revised: 08/24/2018 Document Reviewed: 10/11/2017 [employer] Patient Education 2020 Therapeutic Proteins. Follow Up Care 03/31/2022 12:02:20 With:Gracy Medina MD Address: [place] [place] [address]- When:04/03/2022 [facility]07-07-2022 Evaluation + Plan noteExtracted from: Title:ED NoteAuthor:Jessica Bush PA-CDate:03/31/22 1. Right leg pain (M79.604: Pain in [...] w/CAD if perf and 3D Robert 04/20/22 [facility]04-09-2022 Hospital Discharge instructions Patient Education [...] is stable enough for you to begin pcrve-df-jaumry exercises. You may also be prescribed pain [...] provider says that it is safe. Do lzopl-gs-porgml exercises only as told by your health [...] quitting, ask your health care provider. Take fyoe-nvw-zixsiun and prescription medicines only as told by your health care provider. Ask your health care provider if the medicine prescribed to you can cause constipation. You may need to take steps to prevent or treat constipation, such as: ?Drink enough fluid to keep your urine pale yellow. ?Take acit-pvj-zfxgrjx or prescription medicines. ?Eat foods that are [...] 12/18/2001 Document Revised: 05/13/2019 Document Reviewed: 05/13/2019 [employer] Patient Education [place]. Follow Up Care 01/01/2022 16:44:18 With:Gale Truong Address: [address] [place] [address] Business (1) When:01/04/2022 19:33:35 Comments:Wear the sling when you are up and around you can take it off at night when you are sleeping. Please follow-up with orthopedic surgery for further evaluation management. Please return to the ED for any new or worsening symptoms. With:Gracy Medina Address: [address] [facility] [address]- Business (1) When:Within 3 Day(s) [facility]04-09-2022 Evaluation + Plan noteExtracted from: Title:ED NoteAuthor:Nash Neal DO ADate:01/01/22 Closed left humeral fracture (S42.302A: Unspecified fracture [...] 19:11:00 EDT, 01/01/22 19:11:00 EDT Sling Apply [facility] Future Appointments Appointment Date:02/06/2023 09:00:00 AM Scheduled [facility]us[facility]Should[facility] () Future Scheduled Tests Radiology* MRI Shoulder w/o Contrast Right 02/06/23 [facility] Future Appointments Appointment Date:03/18/2025 05:00:00 PM Scheduled Provider:German Sheehan DO Location:[facility] Appointment Type: Open Future Scheduled Tests Radiology* XR Shoulder Complete Right 02/27/25 * XR Spine Cervical 4 or 5 Views 02/27/25 * XR Spine Lumbosacral Minimum 4 Views 02/27/25 * XR Spine Thoracic 3 Views 02/27/25 [facility] Evaluation + Plan note Future Appointments Appointment Date:05/02/2025 09:40:00 AM Scheduled Provider:German Sheehan DO Location:[facility] Appointment Type:FM Procedure Appointment Date:05/23/2025 11:00:00 AM Scheduled Provider:German Sheehan DO Location:[facility] Appointment Type:FM Open [facility] Evaluation + Plan note Future Appointments Appointment Date:05/23/2025 11:00:00 AM Scheduled Provider:German Sheehan DO Location:[facility] Appointment Type:FM Open Appointment Date:05/23/2025 11:00:00 AM Scheduled Provider: Location:[facility] Appointment Type:FM Medicare Wellness Initial [facility] Evaluation + Plan note Future Appointments Appointment Date:05/28/2025 02:00:00 PM Scheduled Provider:Beth Quinones MD Location[facility] Appointment Type:BADH Screening Appointment Date:06/13/2025 02:00:00 PM Scheduled Provider:German Sheehan DO Location:[facility] Appointment Type: Open Appointment Date:05/20/2026 09:30:00 AM Scheduled Provider: Location:[facility] Appointment Type:FM Medicare Wellness Subsequent Future Scheduled Tests Laboratory* Comprehensive Metabolic Panel 05/23/25 * Lipid Panel 05/23/25 Radiology* BD Bone Density DEXA 05/23/25 * MA Mamm Screen w/CAD if perf and 3D Robert 05/23/25 [facility] Evaluation + Plan note Future Appointments Appointment Date:06/03/2025 08:15:00 PM Scheduled Provider: [facility] App[facility] Type:FLEET MANAGER Sleep Study PSG () Appointment Date:06/13/2025 02:00:00 PM Scheduled Provider:German Sheehan DO Location:[facility] Appointment Type: Open Appointment Date:07/02/2025 02:15:00 PM Scheduled Provider: [facility] Type:MA Screen (FT) Appointment Date:07/02/2025 02:30:00 PM Scheduled Provider: [facility] App[facility] Type:BD Bone Density (FT) Appointment Date:05/20/2026 09:30:00 AM Scheduled Provider: Location:[facility] Appointment Type:FM Medicare Wellness Subsequent Future Scheduled Tests Laboratory* Comprehensive Metabolic Panel 05/23/25 * Lipid Panel 05/23/25 Radiology* BD Bone Density DEXA 07/02/25 * MA Mamm Screen w/CAD if perf and 3D Robert 07/02/25 [facility] Evaluation + Plan note Future Appointments Appointment Date:06/13/2025 02:00:00 PM Scheduled Provider:German Sheehan DO Location:[facility] Appointment Type:FM Open Appointment Date:07/02/2025 02:15:00 PM Scheduled Provider: Location:.[facility] Appointment Type:MA Screen (FT) Appointment Date:07/02/2025 02:30:00 PM Scheduled Provider: Location:.BD Appointment Type:BD Bone Density (FT) Appointment Date:05/20/2026 09:30:00 AM Scheduled Provider: Location:[facility] Appointment Type: Medicare Wellness Subsequent Future Scheduled Tests Laboratory* Comprehensive Metabolic Panel 05/23/25 * Lipid Panel 05/23/25 Radiology* BD Bone Density DEXA 07/02/25 * MA Mamm Screen w/CAD if perf and 3D Robert 07/02/25 [facility] evaluation + Plan note Future Appointments Appointment Date:07/02/2025 02:15:00 PM Scheduled Provider: Location:.[facility] Appointment Type:MA Screen (FT) Appointment Date:07/02/2025 02:30:00 PM Scheduled Provider: Location:.BD Appointment Type:BD Bone Density (FT) Appointment Date:07/11/2025 11:20:00 AM Scheduled Provider:German Sheehan DO Location:[facility] Appointment Type: Open Appointment Date:05/20/2026 09:30:00 AM Scheduled Provider: Location:[facility] Appointment Type:FM Medicare Wellness Subsequent Future Scheduled Tests Laboratory* Comprehensive Metabolic Panel 05/23/25 * Lipid Panel 05/23/25 Radiology* BD Bone Density DEXA 07/02/25 * MA Mamm Screen w/CAD if perf and 3D Robert 07/02/25 [facility] evaluation + Plan note Future Appointments Appointment Date:07/02/2025 02:15:00 PM Scheduled Provider: Location:.[facility] Appointment Type:MA Screen (FT) Appointment Date:07/02/2025 02:30:00 PM Scheduled Provider: Location:.BD Appointment Type:BD Bone Density (FT) Appointment Date:07/11/2025 11:20:00 AM Scheduled Provider:German Sheehan DO Location:[facility] Appointment Type: Open Appointment Date:05/20/2026 09:30:00 AM Scheduled Provider: Location:[facility] Appointment Type:FM Medicare Wellness Subsequent Future Scheduled Tests Laboratory* Basic Metabolic Panel 06/28/25 * Comprehensive Metabolic Panel 05/23/25 Radiology* Echo w/ Saline Bubbles 06/28/25 * BD Bone Density DEXA 07/02/25 * MRI Brain w/o Contrast 06/28/25 * MA Mamm Screen w/CAD if perf and 3D Robert 07/02/25 [facility] Evaluation + Plan note Future Appointments Appointment Date:07/31/2025 09:30:00 AM Scheduled Provider:Vesna Mckay MD [facility] Type:Pulmonary New Patient (FT) Appointment Date:08/11/2025 01:00:00 PM Scheduled Provider:German Sheehan DO Location:[facility] Appointment Type: Procedure Appointment Date:05/20/2026 09:30:00 AM Scheduled Provider: Location:[facility] Appointment Type:FM Medicare Wellness Subsequent Future Scheduled Tests Laboratory* Basic Metabolic Panel 06/28/25 * Comprehensive Metabolic Panel 05/23/25 Radiology* Echo w/ Saline Bubbles 06/28/25 * MRI Brain w/o Contrast 06/28/25 [facility] evaluation note* Diagnosis Incisional hernia, without obstruction or gangrene- Primary Incisional hernia without mention of obstruction or gangrene documented [facility] this [facility] Diagnosis Pain- Primary Generalized pain [facility]* Diagnosis 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, subsequent encounter- Primary Osteoporosis, unspecified osteoporosis type, unspecified pathological fracture presence PAD (peripheral artery disease) ([facility]) Peripheral vascular disease, unspecified Allodynia Disturbance of skin sensation Nicotine use disorder, F17.2 Tobacco use disorder documented in this [facility]* Diagnosis Pain Generalized pain documented in this [facility]* Diagnosis 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)- Primary Incomplete tear of right rotator cuff, unspecified whether traumatic Biceps tendonitis on right documented in this [facility]* Diagnosis 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)- Primary [facility]* Diagnosis Other osteoporosis without current pathological fracture (CMS/HCC) documented in [facility] encounter [facility]* Diagnosis Other constipation Generalized abdominal pain Abdominal pain, generalized documented in this encounter [facility]* Diagnosis C. difficile enteritis- Primary Intestinal infection due to clostridium difficile documented in this encounter [facility] general Narrative - Reported* Type Description Date Medical History bipolar Medical HistoryasthmaMedical HistoryGERDMedical HistoryIBSSurgical HistoryC section-2XSurgical HistoryC-section x 2Surgical HistorylaparoscopySurgical HistoryappendectomySurgical Historyhernia-10XSurgical Historymultiple hernia repairsSurgical HistoryhysterectomySurgical HistorybackSurgical Historyback surgeryHospitalization Historysee above eRepublik Other Hospital course Narrative No data available for this section [facility] Discharge instructions No data available for this section [facility] CenterProgress note No data available for this section [facility] for [facility] (narrative)* Diagnostic Procedure Only (Routine) - AuthorizedSpecialtyDiagnoses / ProceduresReferred By ContactReferred To ContactXR IMAGING Diagnoses Pain Procedures XR ANKLE GENERAL 3V AP/LAT/OBL LEFT RADEX ANKLE COMPLETE MINIMUM 3 VIEWS Aureliano Vann DPM [address] [place] [address] Xr Imaging Referral [facility]StatusReFlor[facility] DateExpiration DateVisits RequestedVisits [id number] Auto-Generated Referral / [facility] for referral (narrative)* Outpatient Procedure (Routine) - Pending ReviewSpecialtyDiagnoses / ProceduresReferred By ContactReferred To [facility] Diagnoses PAD (peripheral artery disease) (HCC) Procedures PVR LEG UNL VAS LAB NON-INVASIVE PHYSIOLOGIC STUDY EXTREMITY 3 LEVLS Aureliano Vann DPM [address] [place] [address] [facility] [address] [place] [address] Referral IDStatusReasonGilman DateExpiration DateVisits RequestedVisits [id number] Review Auto-Generated Referral * Consult, Test, Treat (Routine) - AuthorizedSpecialtyDiagnoses / Procedures Referred By ContactReferred To ContactPain Management Diagnoses 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, subsequent encounter Allodynia Procedures CONSULT TO PAIN MGT OFFICE/OUTPATIENT [facility] 60-74 MINUTES Aureliano Vann DPM [address] [place] [address] Referral IDStatBucyrus [facility] DateExpiration DateVisits RequestedVisits [id number] PCP Requested Referral [facility] for referral (narrative)* Diagnostic Procedure Only (Routine) - ClosedSpecialtyDiagnoses / ProceduresReferred By ContactReferred To ContactXR IMAGING Diagnoses Pain Procedures XR ANKLE GENERAL 3V AP/LAT/OBL LEFT RADEX ANKLE COMPLETE MINIMUM 3 VIEWS Aureliano Vann DPM [address] [place] [address] Xr Imaging Referral IDStatBucyrus Community Hospital DateExpiration DateVisits RequestedVisits [id number] Auto-Generated Referral [facility] for referral (narrative)* Diagnostic Procedure Only (Routine) - ClosedSpecialtyDiagnoses / ProceduresReferred By ContactReferred To ContactXR IMAGING Diagnoses 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) Procedures XR SHOULDER GENERAL 3V OR MORE AP/TRUE AP/OTHER RIGHT RADEX SHOULDER COMPLETE MINIMUM 2 VIEWS Sharita Myers MD [address] [id number] Xr Imaging Referral IDStatusReasonStart DateExpiration DateVisits RequestedVisits [id number] Auto-Generated Referral / [facility] for visit Narrative* Diagnostic Procedure Only (Routine) - ClosedSpecialtyDiagnoses / ProceduresReferred By ContactReferred To Contact XR IMAGING Diagnoses Pain Procedures XR ANKLE GENERAL 3V AP/LAT/OBL LEFT RADEX ANKLE COMPLETE MINIMUM 3 VIEWS Aureliano Vann, NELDA [address] [place] [address] Xr Imaging Referral IDStatusReasonStart DateExpiration DateVisits RequestedVisits [id number] Auto-Generated Referral / [facility] Summary Purpose Family History No Family [...] Records FoundNo Advanced Directives Records FoundNo Advanced Directiv es Records FoundNo Advanced Directives Records FoundNo Advanced Directives Records FoundNo AdvancedDirectives Records FoundNo Advanced Directives Records FoundNo Advanced [...] Records FoundNo Advanced Directives Records FoundNo Advanced Directiv es Records FoundNo Advanced Directives Records FoundNo Advanced Directives Records FoundNo AdvancedDirectives Records FoundNo Advanced Directives Records FoundNo Advanced Directives Records FoundNo Advanced Directives Records FoundNo Advanced Directives Records FoundNo Advanced Directives Records FoundNo Advanced Directives Records FoundNo Advanced Directives Records FoundNo Advanced Directives Records FoundNo Advanced Directives Records FoundNo Advanced Directives Records FoundNo Advanced Directives Records Found Reason for Referral SpecialtyDiagnoses / ProceduresReferred By ContactReferred To ContactREHAB AND [facility] Diagnoses 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) Incomplete tear of right rotator cuff, unspecified whether traumatic Biceps tendonitis on right Procedures CONSULT TO PHYSICAL THERAPY PHYSICAL THERAPY EVALUATION HIGH COMPLEX 45 MINS Verónica Duarte PA-C [address] [place] [address] [facility] [place] [address] [place] [address] Referral IDStatusReasonStart DateExpiration DateVisits RequestedVisits [id number] PCP Requested Referral Auto-Generated Referral 49999 Medications Administered Section Medication OrderMAR ActionAction DateDoseRateSite lidocaine (PF) 10 mg/mL (1 %) 4 mL injection (XYLOCAINE) 4 mL, Injection - FOR ORTHO USE ONLY, ONE TIME INJECTION, 1 dose, Starting on Lashawn 03/30/23 at 1141, Until Lashawn 03/30/23 at 1141 Given03/30/2023 11:41 AM EDT4 mLShoulder, Right triamcinolone acetonide 40 mg injection (KeNALog 40) 40 mg, Injection - FOR ORTHO USE ONLY, ONE TIME INJECTION, 1 dose, Starting on Lashawn 03/30/23 at 1141, Until Lashawn 03/30/23 at 1141 Given03/30/2023 11:41 AM EDT40 mgShoulder, Right Additional Source Comments INFORMATION SOURCE (unrecogn ized section and content) DATE CREATED AUTHOR 03/30/2018 [facility] DATE CREATED AUTHOR AUTHOR'S ORGANIZ ATION 01/20/2023 [facility] [facility] DATE CREATED AUTHOR AUTHOR'S ORGANIZ ATION 03/03/2023 [facility] DATE CREATED AUTHOR AUTHOR'S ORGANIZ ATION 04/14/2023 [facility] DATE CREATED AUTHOR AUTHOR'S ORGANIZ ATION 05/18/2023 [facility] DATE CREATED AUTHOR AUTHOR'S ORGANIZ ATION 10/18/2023 [facility] DATE CREATED AUTHOR AUTHOR'S ORGANIZ ATION 04/17/2025 [facility] DATE CREATED AUTHOR AUTHOR'S ORGANIZ ATION 04/29/2025 [facility] DATE CREATED AUTHOR AUTHOR'S ORGANIZ ATION 06/08/2025 [facility] DATE CREATED AUTHOR AUTHOR'S ORGANIZ ATION 06/18/2025 [facility] DATE CREATED AUTHOR AUTHOR'S ORGANIZ ATION 06/28/2025 [facility] DATE CREATED AUTHOR AUTHOR'S ORGANIZ ATION 06/29/2025 [facility] DATE CREATED AUTHOR AUTHOR'S ORGANIZ ATION 06/30/2025 [facility] DATE CREATED AUTHOR AUTHOR'S ORGANIZ ATION 07/01/2025 [facility] DATE CREATED AUTHOR AUTHOR'S ORGANIZ ATION 07/13/2025 [facility] DATE CREATED AUTHOR AUTHOR'S ORGANIZ ATION 07/26/2025 [facility] DATE CREATED AUTHOR AUTHOR'S ORGANIZ ATION 08/08/2025 [facility] Care Team (unrecognized sect ion and content) Team MemberRelationshipSpecialtyStart DateEnd Date Gracy Medina MD [address] [place] [address] PCP - [facility] Medicine04/11/21Team MemberRelationshipSpecialtyStart DateEnd Date Gracy Medina MD [address] [place] [address] [facility]04/11/21 Gracy Medina MD [address] [place] [address] [facility]erring[facility] Medicine03/07/23Te MemberRelationshipSpecialtyStart DateEnd Date Gracy Medina MD [address] [place] [address] PCP - [facility]04/11/21 Gracy Medina MD [address] [place] [address] [facility]erring[facility]03/07/23Te MemberRelationshipSpecialtyStart DateEnd Date Gracy Medina MD [address] [place] [address] PCP - [facility]04/11/21 Gracy Medina MD [address] [place] [address] [facility]03/07/23Te MemberRelationshipSpecialtyStart DateEnd Date Gracy Medina MD [address] [place] [address] PCP - [facility]04/11/21 Gracy Medina MD [address] [place] [address] [facility]03/07/23Te MemberRelationshipSpecialtyStart DateEnd Date Gracy Medina MD [address] [place] [address] PCP - [facility]04/11/21 Gracy Medina MD [address] [place] [address] [facility]erringLife[facility]03/07/23Te MemberRelationshipSpecialtyStart DateEnd Date Gracy Medina MD [address] [place] [address] PCP - GeneralFamily Medicine04/11/21 Gracy Medina MD [address] [place] [address] ReferringFamily Medicine03/07/23Team MemberRelationshipSpecialtyStart DateEnd Date Gracy Medina MD [address] [place] [address] PCP - [facility]02/16/23 Unallocated, Jeremías Spann MD [address] [place] [address] PCP - [facility]06/26/24Team MemberRelationshipSpecialtyStart DateEnd Gracy Medina MD [address] [place] [address] PCP - [facility]02/16/23 Unallocated, Jeremías Spann MD [address] [place] [address] PCP - [facility]06/26/24Team MemberRelationshipSpecialtyStart DateEnd Date Gracy Medina MD [address] [place] [address] [facility] - [facility]04/11/21 Gracy Medina MD [address] [place] [address] ReferringFamily Medicine03/07/23 German Sheehan DO [address] [facility] [address] [place] [address] [facility]03/04/25Team MemberRelationshipSpecialtyStart DateEnd Date Gracy Medina MD [address] [place] [address] PCP - [facility]02/14/2310 Gracy Medina MD [address] [place] [address] PCP - [facility]02/16/23 UnalJeremías martinez MD [address] [place] [address] PCP - [facility]06/26/24Team MemberRelationshipSpecialtyStart DateEnd Date Gracy Medina MD [address] [place] [address] PCP - [facility]02/14/2310 Gracy Medina MD [address] [place] [address] PCP - [facility]02/16/23 UnalelizacatJeremías azar MD [address] [place] [address] PCP - [facility]06/26/24 REASON FOR VISIT (unrecogniz ed section and content) ReasonCommentsEstablished PatientReasonCommentsNewTrimalleolar fracture 11/12 ORIF L Tanesha in February with repeat injury to left ankle, cellulitis at that time with admission to local hospital.PainTrimalleolar fracture 11/12 ORIF L Tanesha in February with repeat injury to left ankle, cellulitis at that time with admission to local hospital.FractureTrimalleolar fracture 11/12 ORIF Lj Almendarez in February with repeat injury to left ankle, cellulitis at that time with admission to local hospital.ReasonCommentsNewPainSwellingReasonCommentsEstablished PatientReasonCommentsSchedule SurgeryReasonCommentsPatient QuestionOffering patient surgical date.ReasonCommentsMed Refill Source Comments (unrecognize d section and content) In the event this informatio n is protected by the Federal Confidentiality of Alcohol and Drug Abuse Patient Records regulations: The Federal rules restrict any use of the information to criminally investigate or prosecute any alcohol or drug abuse patient.[facility] HospitalIn the event this information is protected by the Federal Confidentiality of Alcohol and Drug Abuse Patient Records regulations: The Federal rules restrict any use of the information to criminally investigate or prosecute any alcohol or drug abuse patient.[facility] HospitalIn the event this information is protected by the Federal Confidentiality of Alcohol and Drug Abuse Patient Records regulations: The Federal rules restrict any use of the information to criminally investigate or prosecute any alcohol or drug abuse patient.[facility] HospitalIn the event this information is protected by the Federal Confidentiality of Alcohol and Drug Abuse Patient Records regulations: The Federal rules restrict any use of the information to criminally investigate or prosecute any alcohol or drug abuse patient.[facility] HospitalIn the event this information is protected by the Federal Confidentiality of Alcohol and Drug Abuse Patient Records regulations: The Federal rules restrict any use of the information to criminally investigate or prosecute any alcohol or drug abuse patient.[facility] HospitalIn the event this information is protected by the Federal Confidentiality of Alcohol and Drug Abuse Patient Records regulations: The Federal rules restrict any use of the information to criminally investigate or prosecute any alcohol or drug abuse patient.[facility] HospitalIn the event this information is protected by the Federal Confidentiality of Alcohol and Drug Abuse Patient Records regulations: The Federal rules restrict any use of the information to criminally investigate or prosecute any alcohol or drug abuse patient.[facility] HospitalIn the event this information is protected by the Federal Confidentiality of Alcohol and Drug Abuse Patient Records regulations: The Federal rules restrict any use of the information to criminally investigate or prosecute any alcohol or drug abuse patient.[facility] HospitalIn the event this information is protected by the Federal Confidentiality of Alcohol and Drug Abuse Patient Records regulations: The Federal rules restrict any use of the information to criminally investigate or prosecute any alcohol or drug abuse patient.[facility] HospitalIn the event this information is protected by the Federal Confidentiality of Alcohol and Drug Abuse Patient Records regulations: The Federal rules restrict any use of the information to criminally investigate or prosecute any alcohol or drug abuse patient.[facility] FOR RECORDS PERTAINING TO PATIENTS WHO [...] BE BASED ON THE PRIMARY CLINICAL RECORDS. [facility] [employer] [facility]. provides no warranty or guarantee of the accuracy or completeness of information in this document.
== END 2025-08-25 19:57 | disposition home or self-care (01) ==
PROVIDERS: PCP Family Medicine; Visit Provider Family Medicine
DX: G47.33 Obstructive sleep apnea (adult) (pediatric) (principal)
CPT/HCPCS: 95811

== ENCOUNTER 2025-08-26 11:30 | Emergency (ER) | payer MEDICARE, MEDICAID, SELFPAY ==
--- OUTSIDE RECORDS SUMMARY | 2025-08-11 23:59 | XMS_ITS | Continuity of Care Document ---
Author Organization [facility] Address [address] [place] [address] Care Team Providers Care Special Tax Auditor Name Role Phone German Sheehan Primary Care Physician DAVID LEON Encounter FT_AMBFIN [id number] Date(s): 08/11/25 - 08/11/25 [facility] [address] [place] [address]- Encounter Diagnosis Generalized anxiety disorder with panic attacks(Discharge Diagnosis) - 08/11/25 Hypertension(Discharge Diagnosis) - 08/11/25 Panic disorder [episodic paroxysmal anxiety](Discharge Diagnosis) - 08/11/25 Discharge Disposition: Home (Routine DC) Attending Physician: German Sheehan DO Encounter Type: Clinic Allergies, Adverse Reactions, Alerts SubstanceCriticalitySeverityReactionReaction SeverityStatusclindamycinUnknown ActivevancomycinActivebacitracinActiveLaMICtalUnknownActivehydroCHLOROthiazide High guxdoqjnzctZejejhsiHehkhqwbfowiUezrxgTaoh5dswqUzzfgy 1can use paper tape Treatment Plan Future Appointments Appointment Date:08/26/2025 01:15:00 PM Scheduled Provider:[facility]iology New Patient (FT) Appointment Date:09/08/2025 08:40:00 AM Scheduled Provider:German Sheehan DO Location:[facility] Appointment Type:FM Procedure Appointment Date:09/10/2025 11:00:00 AM Scheduled Provider:Vesna Mckay [facility]:Pulmonary Follow Up (FT) Appointment Date:05/20/2026 09:30:00 AM Scheduled Provider: Location:[facility] Appointment Type: Medicare Wellness Subsequent Future Scheduled Tests Laboratory* Basic Metabolic Panel 06/28/25 * Comprehensive Metabolic Panel 05/23/25 Radiology* Echo w/ Saline Bubbles 06/28/25 * MRI Brain w/o Contrast 06/28/25 Immunizations Given and Recorded VaccineDateStatusRefusal XzskhaZNKM-MoY-0 (COVID-19) mRNA BNT-162b2 vax5 ZmsptsvqZTIN-SuA-7 (COVID-19) mRNA BNT-162b2 vax4Recordedpneumococcal 23- valent cyektoh95/12/19Recordedinfluenza virus vaccine, inactivated06/10/19 Recordedinfluenza virus vaccine, inactivated06/12/15Recordedinfluenza, unspecified ooljhszvswe93/1/15Recorded Medications albuterol 0.083% Inh Teresita 3 mL 0.083% - 3mL dosing units, Inhalation, q4hr Wheezing, 225 mL, Refill(s) 3, dx. J45.909, [facility]/pharmacy #[id number], 150.7, cm, 06/20/25 17:26:00 EDT, Height/Length Dosing, 60.5, kg, 06/20/25 18:12:00 EDT, Weight Dosing Start Date: 06/23/25 Status: Ordered Medication Dispense Status: Completed Quantity: 225.0 Unit: mL Total Allowed Fills: 4 Fills Dispensed: 0 alendronate 70 mg Tab 70 mg = 1 tab(s), Oral, q7day, # 12 tab(s), Refills(s) 0 Start Date: 02/27/25 Status: Ordered Medication Dispense Status: Completed Quantity: 12.0 Unit: tab(s) Total Allowed Fills: 1 Fills Dispensed: 0 amLODIPine 2.5 mg Tab 2.5 mg = 1 tab(s), Oral, Daily, # 30 tab(s), Refills(s) 0, Pharmacy: [facility]/pharmacy #[id number], 149, cm, 08/11/25 13:40:00 EST, Height/Length Dosing, 65.1, kg, 08/11/25 13:40:00 EST, Weight Dosing Start Date: 08/11/25 Status: Ordered Medication Dispense Status: Completed Quantity: 30.0 Unit: tab(s) Total Allowed Fills: 1 Fills Dispensed: 0 Indications: Essential (primary) hypertension; aspirin 81 mg Oral EC Tab 81 mg = 1 tab(s), Oral, Daily, # 30 tab(s), Refills(s) 0, [id number] 150.7, cm, 06/20/25 17:26:00 EDT, Height/Length Dosing, 60.5, kg, 06/20/25 18:12:00 EDT, Weight Dosing Start Date: 06/21/25 Status: Ordered Medication Dispense Status: Completed Quantity: 30.0 Unit: tab(s) Total Allowed Fills: 1 Fills Dispensed: 0 atorvastatin 80 mg Tab 80 mg = 1 tab(s), Oral, Bedtime, # 30 tab(s), Refills(s) 0, Pharmacy: [facility]/pharmacy #[id number], 150.7, cm, 06/20/25 17:26:00 EDT, Height/Length Dosing, 60.5, kg, 06/20/25 18:12:00 EDT, Weight Dosing Start Date: 06/21/25 Status: Ordered Medication Dispense Status: Completed Quantity: 30.0 Unit: tab(s) Total Allowed Fills: 1 Fills Dispensed: 0 Augmentin 875 mg-125 mg Tab 1 tab(s), Oral, q12hr for 7 day(s), 14 tab(s), Refill(s) 0, [id number], 149, cm, 08/11/25 13:40:00 EST, Height/Length Dosing, 65.1, kg, 08/11/25 13:40:00 EST, Weight Dosing Start Date: 08/11/25 Stop Date: 08/18/25 Status: Ordered Medication Dispense Status: Completed Quantity: 14.0 Unit: tab(s) Total Allowed Fills: 1 Fills Dispensed: 0 Indications: Chronic sinusitis, unspecified; lidocaine 5% patch 2 patch(es), Topical, Daily, Refill(s) 0 Start Date: 06/23/25 Status: Ordered Medication Dispense Status: Completed Total Allowed Fills: 1 Fills Dispensed: 0 metoprolol succinate 25 mg ER Tab 25 mg = 1 tab(s), Oral, Daily, Take with 50mg XR metoprolol for total of 75mg XR daily, # 30 tab(s), Refills(s) 1, [id number], 149.8, cm, 07/11/25 11:31:00 EDT, Height/Length Dosing, 62.6, kg, 07/11/25 11:31:00 EDT, Weight Dosing Start Date: 07/11/25 Status: Ordered Medication Dispense Status: Completed Quantity: 30.0 Unit: tab(s) Total Allowed Fills: 2 Fills Dispensed: 0 omeprazole 40 mg Cap-DR 40 mg = 1 cap(s), Oral, Daily, 30 minutes prior to food or any other medication., # 90 cap(s), Refills(s) 3, [id number], 150.7, cm, 02/27/25 10:37:00 EDT, Height/Length Dosing, 64.5, kg, 02/27/25 10:37:00 EDT, Weight Dosing Start Date: 02/27/25 Status: Ordered Medication Dispense Status: Completed Quantity: 90.0 Unit: cap(s) Total Allowed Fills: 4 Fills Dispensed: 0 potassium chloride 20 mEq ER Tab 20 mEq = 1 tab(s), Oral, Daily, # 30 tab(s), Refills(s) 11, [id number], 149.8, cm, 06/27/25 9:26:00 EDT, Height/Length Dosing, 58.8, kg, 06/27/25 9:26:00 EDT, Weight Dosing Start Date: 06/27/25 Status: Ordered Medication Dispense Status: Completed Quantity: 30.0 Unit: tab(s) Total Allowed Fills: 12 Fills Dispensed: 0 Indications: Hypokalemia; Seroquel 50 mg, Oral, Bedtime, Refills(s) 0 Start Date: 11/12/22 Status: Ordered Medication Dispense Status: Completed Total Allowed Fills: 1 Fills Dispensed: 0 Toprol XL 100 mg Tab-ER 100 mg = 1 tab(s), Oral, Daily, # 90 tab(s), Refills(s) 4, Pharmacy: [facility]/pharmacy #[id number], 149.8, cm,06/27/25 9:26:00 EDT, Height/Length Dosing, 58.8, kg, 06/27/25 9:26:00 EDT, Weight Dosing Start Date: 06/27/25 Status: Ordered Medication Dispense Status: Completed Quantity: 90.0 Unit: tab(s) Total Allowed Fills: 5 Fills Dispensed: 0 Indications: Essential (primary) hypertension; Ventolin HFA 90 mcg/inh Aerosol-Adpt 2 puff(s), Inhalation, QID for wheezing, 18 gram, Refill(s) 5, [id number], 150.7, cm, 02/27/25 10:37:00 EDT, Height/Length Dosing, 64.5, kg, 02/27/25 10:37:00 EDT, Weight Dosing Start Date: 02/27/25 Status: Ordered Medication Dispense Status: Completed Quantity: 18.0 Unit: g Total Allowed Fills: 6 Fills Dispensed: 0 Vitamin D3 1000 intl units (25 mcg) Tab 25 mcg = 1 tab(s), Oral, Daily, # 30 tab(s), Refills(s) 11, Pharmacy: [facility]/pharmacy #[id number], 149.8, cm, 06/27/25 9:26:00 EDT, Height/Length Dosing, 58.8, kg, 06/27/25 9:26:00 EDT, Weight Dosing Start Date: 06/30/25 Status: Ordered Medication Dispense Status: Completed Quantity: 30.0 Unit: tab(s) Total Allowed Fills: 12 Fills Dispensed: 0 Indications: Vitamin D deficiency, unspecified; Xanax 1 mg Tab 1 mg = 1 tab(s), Oral, TID, PRN for anxiety, For 30 day supply, # 90 tab(s), Refills(s) 1, Pharmacy: [facility]/pharmacy #[id number], 149, cm, 08/11/25 13:40:00 EST, Height/Length Dosing, 65.1, kg, 08/11/25 13:40:00 EST, Weight Dosing Start Date: 08/11/25 Status: Ordered Medication Dispense Status: Completed Quantity: 90.0 Unit: tab(s) Total Allowed Fills: 2 Fills Dispensed: 0 Indications: Anxiety disorder, unspecified; Problem List ConditionConfirmationCourseEffective DatesStatusHealth StatusInformantAnxiety ConfirmedActiveAsthmaConfirmedActiveBipolar 1 disorderConfirmedActive EndometriosisConfirmedResolvedGeneralized anxiety disorder with panic attacks ConfirmedActiveGERD (gastroesophageal reflux disease)ConfirmedActive HyperlipidemiaConfirmedActiveHypertensionConfirmedActiveLow blood potassium ConfirmedActiveIBS - Irritable bowel syndromeConfirmedResolvedOsteoarthritis of right shoulderConfirmedActiveOver weightConfirmedActivePanic disorder [episodic paroxysmal anxiety]ConfirmedActivePTSD (post-traumatic stress disorder)Confirmed ActiveDextroscoliosis of thoracic nygnsEionoehhrLqrufqZsnqoz8VcqtmcmvkSsqeqq Staph infectionConfirmedActive 1Added secondary to documentation in Social History. Procedures ProcedureDateRelated DiagnosisBody SiteStatusAppendectomyCompletedC-Section x2 CompletedColonoscopyCompletedHysterectomyCompletedRepair of recurrent inguinal wmssxu0Fxaruscfuutejw surgery for scoliosisCompleted 1multiple Social History Social History TypeResponseSmoking Avfwfe01 or more cigarettes (1/2 pack or more)/day in last 30 days;Never; Type: Cigarettes; Previous treatment: None; Ready to change: No; Concerns about tobacco use in household: No; Smoking Cessation Yes; Tobacco use per day: 10; Number of years: 38; Total pack years: 1 9; Started at age: 11.0; entered on: 06/27/25Birth SexFemaleSex RepresentationFemale (finding) 1daily smoker Implantable Device List ProcedureProviderProcedure DateDevice TypeSiteANKLE FRACTURE ORIFBrown DO, Nate 11/12/22UnknownAnkle LDevice IdentifierSerial NumberLot or Batch Number Manufacturing DateExpiration DateDistinct Identification CodeMRI Safety Implantable StatusAssigning AuthorityUnknownUnknownUnknownUnknownUnknownUnknown UnknownActiveUnknown ProcedureProviderProcedure DateDevice TypeSiteANKLE FRACTURE ORIFBrown DO, Nate 11/12/22UnknownAnkle LDevice IdentifierSerial NumberLot or Batch Number Manufacturing DateExpiration DateDistinct Identification CodeMRI Safety Implantable StatusAssigning AuthorityUnknownUnknownUnknownUnknownUnknownUnknown UnknownActiveUnknownUnknownUnknownUnknownUnknownUnknownUnknownUnknownActive Unknown ProcedureProviderProcedure DateDevice TypeSiteANKLE FRACTURE ORIFBrown DO, Nate 11/12/22UnknownAnkle LDevice IdentifierSerial NumberLot or Batch Number Manufacturing DateExpiration DateDistinct Identification CodeMRI Safety Implantable StatusAssigning AuthorityUnknownUnknownUnknownUnknownUnknownUnknown UnknownActiveUnknown ProcedureProviderProcedure DateDevice TypeSiteANKLE FRACTURE ORIFBrown DO, Nate 11/12/22UnknownAnkle LDevice IdentifierSerial NumberLot or Batch Number Manufacturing DateExpiration DateDistinct Identification CodeMRI Safety Implantable StatusAssigning AuthorityUnknownUnknownUnknownUnknownUnknownUnknown UnknownActiveUnknownUnknownUnknownUnknownUnknownUnknownUnknownUnknownActive Unknown ProcedureProviderProcedure DateDevice TypeSiteANKLE FRACTURE ORIFBrown DO, Nate 11/12/22UnknownAnkle LDevice IdentifierSerial NumberLot or Batch Number Manufacturing DateExpiration DateDistinct Identification CodeMRI Safety Implantable StatusAssigning AuthorityUnknownUnknownUnknownUnknownUnknownUnknown UnknownActiveUnknown ProcedureProviderProcedure DateDevice TypeSiteANKLE FRACTURE ORIFBrown Nate BETH A2/UnknownAnkle LDevice IdentifierSerial NumberLot or Batch Number Manufacturing DateExpiration DateDistinct Identification CodeMRI Safety Implantable StatusAssigning AuthorityUnknownUnknownUnknownUnknownUnknownUnknown UnknownActiveUnknown Hospital Discharge Instructions Follow Up Care 07/11/2025 12:34:27 With:German Sheehan DO, FAM Address: [address] [place] [address]- When:4 weeks Comments:4 WEEKS FOLLOWUP Patient Care team information Care Team Personnel Name: Jacinda Tomlinson RN Position: FT [employer]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 Member Role: Primary Care Physician Address: [address] [place], [place] [id number] Telecom: Care Team Related Persons Name: HOLLI DORSEY Name: HOLLI DORSEY Name: HOLLI DORSEY Name: HOLLI DORSEY Name: GALE MARCIAL Insurance Providers Guarantor name: NATHANIEL MARCIAL Health Plan Information #: 1 Payer: MEDICARE Payer Identifier: [id number] Member Number: [id number] Group Number: [id number] Subscriber Identifier: [id number] Relationship to Subscriber: self Coverage Type: MEDICARE Coverage Verification Date: 25 Telecom: [phone] Address: [address] [place] [address] [id number] [place] [address] Health Plan Information #: 2 Payer: Medicaid Payer Identifier: [id number] Member Number: [id number] Group Number: [id number] Subscriber Identifier: [id number] Relationship to Subscriber: self Coverage Type: MEDICAID Coverage Verification Date: NA Telecom: [phone] Address: [facility] [id number] [address]
[2025-08-26 11:38] VITALS: BP 129/80; PULSE 95; TEMP 36.9; O2SAT 99; BMI 28.7
--- NOTE | 2025-08-26 11:49 | ED.GENADUL1 ---
HPI HPI - General Adult General Chief complaint: Eye Problems Stated complaint: L EYE PAIN/IRRITATION Time Seen by Provider: 08/26/25 11:36 Source: patient Mode of arrival: walk-in Limitations: no limitations History of Present Illness HPI narrative: 49-year-old female presents for irritation to the left eye. This came on suddenly about an hour ago. She did not get poked in the eye and did not get anything into her eye. She had a sleep study last night. It is only her left eye that she noticed a bubble. Related Data Home Medications ?Medication ?Instructions ?Recorded ?Confirmed albuterol sulfate 90 mcg/actuation 2 inh inhalation Q6H PRN shortness 12/13/23 12/21/23 aerosol inhaler of breath or wheezing alendronate 70 mg tablet 70 mg PO .weekly 12/13/23 12/21/23 alprazolam 0.5 mg tablet 0.5 mg PO TID PRN anxiety 12/13/23 12/21/23 dicyclomine 20 mg tablet 20 mg PO TID 12/13/23 12/21/23 lisinopril 5 mg tablet 5 mg PO DAILY 12/13/23 12/21/23 methocarbamol 750 mg tablet 750 mg PO Q8H PRN muscle spasm 12/13/23 12/21/23 metoprolol succinate 100 mg 100 mg PO DAILY 12/13/23 12/21/23 tablet,extended release 24 hr pantoprazole 40 mg tablet,delayed 40 mg PO DAILY 12/13/23 12/21/23 release quetiapine 25 mg tablet 25 mg PO QPM 12/13/23 12/21/23 quetiapine 50 mg tablet 50 mg PO QPM 12/13/23 12/21/23 Previous Rx's ?Medication ?Instructions ?Recorded aspirin 81 mg tablet,delayed 81 mg PO BID 30 days #60 tabs 12/21/23 release (Adult Low Dose Aspirin) cefadroxil 500 mg capsule 500 mg PO BID 7 days #14 caps 12/21/23 ondansetron 4 mg disintegrating 4 mg PO Q8H PRN nausea and 12/21/23 tablet vomiting 5 days #15 tabs oxycodone-acetaminophen 5 mg-325 1 tab PO Q6H PRN pain 7 days #28 12/21/23 mg tablet (Percocet) tabs sennosides 8.6 mg tablet (Senna 8.6 mg PO DAILY PRN constipation 7 12/21/23 Laxative) days #7 tabs tizanidine 2 mg tablet 2 mg PO TID PRN muscle spasticity 12/21/23 7 days #21 tabs diclofenac sodium 75 mg 75 mg PO BID PRN pain #20 tabs 02/23/25 tablet,delayed release oxycodone-acetaminophen 5 mg-325 1 tab PO Q8H PRN pain #9 tabs 02/23/25 mg tablet (Percocet) ketorolac 0.5 % eye drops (Acular) 1 drp ophthalmic (eye) Q6H #5 mL 08/26/25 Allergies Allergy/AdvReac Type Severity Reaction Status Date / Time hydrochlorothiazide Allergy Severe decreases Verified 08/26/25 11:38 potassium vancomycin Allergy Severe red man Verified 08/26/25 11:38 syndrome bacitracin Allergy Mild Rash Verified 08/26/25 11:38 lamotrigine (From Lamictal) AdvReac Severe Agitated Verified 08/26/25 11:38 clindamycin AdvReac c-diff Verified 08/26/25 11:38 Opioid HPI Opioid Management Most Recent Opioid Data: Last Pain Scale 10 02/23/25, 12:07 Ur Phencyclidine Scrn, (NEGATIVE) Negative 12/02/23, 21:00 Review of Systems ROS Narrative A ten point review of systems is negative except as noted above. [facility] Medical History (Updated 08/26/25 @ 11:52 by Feng Moya MD) Back pain ?M54.9 - Dorsalgia, unspecified (ICD-10) Arthritis ?M19.90 - Unspecified osteoarthritis, unspecified site (ICD-10) History of blood transfusion ?Z92.89 - Personal history of other medical treatment (ICD-10) Insomnia ?G47.00 - Insomnia, unspecified (ICD-10) PTSD (post-traumatic stress disorder) ?F43.10 - Post-traumatic stress disorder, unspecified (ICD-10) Depression ?F32.A - Depression, unspecified (ICD-10) Bipolar disorder ?F31.9 - Bipolar disorder, unspecified (ICD-10) Panic attacks ?F41.0 - Panic disorder [episodic paroxysmal anxiety] (ICD-10) COVID-19 (10/06/23) ?U07.1 - COVID-19 (ICD-10) Pneumonia ?J18.9 - Pneumonia, unspecified organism (ICD-10) GERD (gastroesophageal reflux disease) ?K21.9 - Gastro-esophageal reflux disease without esophagitis (ICD-10) Asthma ?J45.909 - Unspecified asthma, uncomplicated (ICD-10) Dyspnea on exertion ?R06.09 - Other forms of dyspnea (ICD-10) Scoliosis ?M41.9 - Scoliosis, unspecified (ICD-10) Palpitations ?R00.2 - Palpitations (ICD-10) Hypertension ?I10 - Essential (primary) hypertension (ICD-10) Hypokalemia ?E87.6 - Hypokalemia (ICD-10) Ectopic ?O00.90 - Unspecified ectopic without intrauterine (ICD-10) Ankle instability ?M25.373 - Other instability, unspecified ankle (ICD-10) Ankle joint disorder ?M19.079 - Primary osteoarthritis, unspecified ankle and foot (ICD-10) Presence of orthopedic implant of ankle ?Z96.7 - Presence of other bone and tendon implants (ICD-10) Foot pain ?M79.673 - Pain in unspecified foot (ICD-10) Cellulitis ?L03.90 - Cellulitis, unspecified (ICD-10) Ankle fracture ?S82.899A - Other fracture of unspecified lower leg, initial encounter for closed fracture (ICD-10) Degenerative disc disease Clostridium difficile diarrhea ?A04.72 - Enterocolitis due to Clostridium difficile, not specified as recurrent (ICD-10) Shoulder pain ?M25.519 - Pain in unspecified shoulder (ICD-10) Osteoarthritis ?M19.90 - Unspecified osteoarthritis, unspecified site (ICD-10) Osteoporosis ?M81.0 - Age-related osteoporosis without current pathological fracture (ICD-10) Surgical History (Updated 12/21/23 @ 06:40 by Holli Curtis RN) H/O section ?Z98.891 - History of uterine scar from previous surgery (ICD-10) History of esophagogastroduodenoscopy (EGD) ?Z98.890 - Other specified postprocedural states (ICD-10) History of colonoscopy ?Z98.890 - Other specified postprocedural states (ICD-10) H/O unilateral salpingectomy ?Z90.79 - Acquired absence of other genital organ(s) (ICD-10) History of hernia repair ?Z98.890 - Other specified postprocedural states (ICD-10) ?Z87.19 - Personal history of other diseases of the digestive system (ICD-10) History of ankle surgery ?Z98.890 - Other specified postprocedural states (ICD-10) History of spinal surgery ?Z98.890 - Other specified postprocedural states (ICD-10) History of hysterectomy ?Z90.710 - Acquired absence of both cervix and uterus (ICD-10) Family History (Updated 12/13/23 @ 14:07 by Rachna Madera NP) Other Cardiomyopathy Delayed recovery from anesthesia Family history of coronary artery disease Family history of heart disease Family history of myocardial infarction Family history of skin cancer Family history of stroke Social History (Updated 12/21/23 @ 06:43 by Holli Curtis RN) Within the past year, how often did you have a drink containing alcohol: monthly or less Smoking status: Current every day smoker What tobacco products do you use: cigarettes Packs per day: 1 Years smoked: 37 Smoking pack-years: 37.00 Non-prescribed substance use: cannabis (any form) Non-prescribed substance use details: states has her medical card Previous occupational history: disabled Highest level of school completed/degree received: 11th grade Little interest or pleasure in doing things: not at all Feeling down, depressed, or hopeless: not at all Exam Narrative Exam Narrative: Nurses note and vital signs reviewed General:The patient appears well and in no apparent distress.Patient is resting comfortably on cart. Skin:Warm, dry, no pallor noted.There is no rash noted. Head:Normocephalic, atraumatic Eye: Left eye is minimally injected. She has chemosis of the lateral portion of the left eye. Fluorescein staining and Cabrales lamp examination showed no corneal abrasions Ears, Nose, Mouth, and Throat: oral mucosa is moist. Nares patent. Cardiovascular:Regular Rate and Rhythm Respiratory:Patient is in no distress, no accessory muscle use, lungs are clear to auscultation, no wheezing, rales or rhonchi Back:non-tender GI: Soft and nontender Musculoskeletal: The patient has no evidence of calf tenderness, no pitting edema, symmetrical pulses noted bilaterally Neurological:A&O, normal speech Psychiatric:Cooperative Constitutional Vital Signs, click to edit/add: Last Vital Signs Temp 98.5 F 08/26/25 11:38 Pulse 95 H 08/26/25 11:38 Resp 18 08/26/25 11:38 BP 129/80 08/26/25 11:38 Pulse Ox 99 08/26/25 11:38 O2 Del Method Room Air 08/26/25 11:38 Course Vital Signs Vital signs: Vital Signs Temperature 98.5 F 08/26/25 11:38 Pulse Rate 95 H 08/26/25 11:38 Respiratory Rate 18 08/26/25 11:38 Blood Pressure 129/80 08/26/25 11:38 Pulse Oximetry 99 08/26/25 11:38 Oxygen Delivery Method Room Air 08/26/25 11:38 Temperature 98.5 F 08/26/25 11:38 Pulse Rate 95 H 08/26/25 11:38 Respiratory Rate 18 08/26/25 11:38 Blood Pressure 129/80 08/26/25 11:38 Pulse Oximetry 99 08/26/25 11:38 Oxygen Delivery Method Room Air 08/26/25 11:38 Medical Decision Making MDM Narrative Medical decision making narrative: The patient has chemosis. This is not related to any surgery and she does not seem to have any sort of conjunctivitis. It is most likely allergic and she will be prescribed Acular. Treatment diagnosis and follow-up were discussed with the patient. Differential Diagnosis Differential Diagnosis: Chemosis, conjunctivitis Discharge Plan Discharge Chief Complaint: Eye Problems Clinical Impression: Chemosis of left conjunctiva Patient Disposition: Home, Self-Care Time of Disposition Decision: 11:52 Condition: Good Mode of Transportation: Private Vehicle Prescriptions / Home Meds: New ketorolac [Acular] 0.5 % drops 1 drp ophthalmic (eye) Q6H Qty: 5 0RF No Action oxycodone-acetaminophen [Percocet] 5-325 mg tablet 1 tab PO Q8H PRN (Reason: pain) Qty: 9 0RF diclofenac sodium 75 mg tablet,delayed release (DR/EC) 75 mg PO BID PRN (Reason: pain) Qty: 20 0RF albuterol sulfate 90 mcg/actuation HFA aerosol inhaler 2 inh INHALATION Q6H PRN (Reason: shortness of breath or wheezing) alendronate 70 mg tablet 70 mg PO .weekly alprazolam 0.5 mg tablet 0.5 mg PO TID PRN (Reason: anxiety) dicyclomine 20 mg tablet 20 mg PO TID lisinopril 5 mg tablet 5 mg PO DAILY metoprolol succinate 100 mg tablet extended release 24 hr 100 mg PO DAILY methocarbamol 750 mg tablet 750 mg PO Q8H PRN (Reason: muscle spasm) pantoprazole 40 mg tablet,delayed release (DR/EC) 40 mg PO DAILY quetiapine 25 mg tablet 25 mg PO QPM quetiapine 50 mg tablet 50 mg PO QPM aspirin [Adult Low Dose Aspirin] 81 mg tablet,delayed release (DR/EC) 81 mg PO BID 30 Days Qty: 60 0RF cefadroxil 500 mg capsule 500 mg PO BID 7 Days Qty: 14 0RF oxycodone-acetaminophen [Percocet] 5-325 mg tablet 1 tab PO Q6H PRN (Reason: pain) 7 Days Qty: 28 0RF ondansetron 4 mg tablet,disintegrating 4 mg PO Q8H PRN (Reason: nausea and vomiting) 5 Days Qty: 15 0RF sennosides [Senna Laxative] 8.6 mg tablet 8.6 mg PO DAILY PRN (Reason: constipation) 7 Days Qty: 7 0RF tizanidine 2 mg tablet 2 mg PO TID PRN (Reason: muscle spasticity) 7 Days Qty: 21 0RF Print Language: Lithuanian Instructions: Conjunctivitis (ED) Referrals: German Sheehan DO [Primary Care Provider] - 1 week
[2025-08-26] MEDS: FLUORESCEIN SODIUM 1 MG STRIP OP (12:02)
--- OUTSIDE RECORDS SUMMARY | 2025-08-26 12:10 | XMS_ITS | Clinical Summary ---
Author Organization [facility] Address [address] [facility] [address] [place] [address] Care Team Providers Care Welding Equipment Repairer Name Role Phone Unavailable Primary Care Provider Unavailabl e Source Comments The following information is NOT included in Care Everywhere downloads:Psychiatric notes, ECG results, Cardiac Rehab notes, Pulmonary Function notes, data from SmartForms (includes but not limited toPregnancy data,audiograms, eye exams, pre-surgical evaluation notes, well-child exam data).[facility] Active Problems ProblemNoted DateDiagnosed CvtxDineajwg25/18/2004Arthrodesis qgfjiy2803/12/2004 Idiopathic scoliosis and nlhfuqopxyetnw23/18/2004 Overview (12/31/2022): Scoliosis (and kyphoscoliosis), idiopathic IMO4.1.23 Immunizations ImmunizationAdministration DatesNext DueDTP (CVX=01)08/02/2022Influenza, injectable, trivalent, preservative (DSJ=936)06/12/2015Influenza, intradermal, trivalent, preservative free (IIV3) (KUZ=537)06/10/2019Pfizer Monovalent (12+ yrs) SARS-COV-2 (COVID-19) vaccine, mRNA, spike protein, LNP, pres. free, 30 mcg/0.3mL dose (NJX=686)02/08/2021,1Pneumococcal polysaccharide 23 Valent (PPSV23) (CVX=33)08/06/2019 Social History Tobacco UseTypesPacks/DayYears UsedDateSmoking Tobacco: Never Assessed CommentsUnknownSex and Gender InformationValueDate RecordedSex Assigned at Not on fileLegal NbyLezpak54/04/2012 10:31 AM ESTGender IdentityNot on file Sexual OrientationNot on file Last Filed Vital Signs Vital SignReadingTime TakenCommentsBlood Ccsvxrit926/26663 5:36 AM EDT Jggmx41899/19/2023 5:36 AM EDTTemperature--Respiratory Ddof881701/11/2023 5:36 AM EDTOxygen Jmcjohmkky03%01/11/2023 5:36 AM EDTInhaled Oxygen Concentration-- Weight--Height--Body Mass Index-- Plan of Treatment Health MaintenanceDue DateLast CawfYwsahvqnKyjpsfapkmr89/14/1975HIV Test 1989Hepatitis C Rcmxcziz69/14/1993Tdap Bhqqqjx4111/08/1992Hepatitis A (HAV) Vaccine (optional start 19+ years)1993Hepatitis B (HBV) Vaccine (1 of 3 - 19+ 3-dose series)1993Pap Smear11/08/19956669Fuscbnsimgf99/14/2015nnual Wellness Visit (G0438)03/25/2016CRC Qgaxdbmqe38/14/5502Bfdoscaqvxb20/14/2020 Cologuard (Stool DNA)2019FIT2019Pneumococcal Vaccine(s) (50+ yrs) (2 of 2 - PCV)Shingles (RZV) Vaccine (1 of 2)5COVID-19 Vaccine (3 - 2024- season)/, 01/18/2021Influenza Vaccine (#1)/, 06/12/2015 Insurance
--- OUTSIDE RECORDS SUMMARY | 2025-08-26 12:10 | XMS_ITS | Clinical Summary ---
Author Organization [facility] Address [address] [place] [address] Care Team Providers Care Software Test And Validation Engineer Name Role Phone Gracy Medina MD Primary Care Provider [phone] Gracy Medina MD Unavailable [phone] German Sheehan DO Unavailable Allergies Active AllergyReactionsCriticalityNoted JjslPveyjlttSwymxhilsj37/12/2004 LamotrigineMental Status XepzcoRaph04/06/2699Dhzrcecstx47/22/2004 Medications MedicationSigDispense QuantityRefillsLast FilledStart DateEnd DateStatus OXcarbazepine (TRILEPTAL) 600 mg tablet Take 600 mg by mouth twice daily.Active OMEPRAZOLE (PRILOSEC ORAL) Take 40 mg by mouth once daily.Active busPIRone (BUSPAR) 5 mg tablet Take 30 mg by mouth twice daily. Active varenicline (CHANTIX) 1 mg tablet Take 1 mg by mouth twice daily.Active plecanatide (TRULANCE) 3 mg tab Take by mouth.Active gabapentin (NEURONTIN) 100 mg capsule Take 100 mg by mouth three times daily.Active LINZESS 145 mcg capsule TAKE 1 CAPSULE DAILY AT LEAST 30 MINUTES BEFORE THE FIRST MEAL OF THE DAY ON AN EMPTY TKWOMLR9109/15/2020Active dicyclomine (BENTYL) 20 mg tablet Take 20 mg by mouth.11/11/2012ctive docusate sodium (COLACE) 100 mg capsule Take 1 capsule by mouth twice daily. 14 capsule 04/19/2021ctive benztropine (COGENTIN) 1 mg tablet Take 1 tablet by mouth twice daily.04/19/2021ctive QUEtiapine (SEROQUEL) 300 mg tablet Take 1 tablet by mouth twice daily at 6AM and 9PM.04/19/2021ctive acetaminophen (TYLENOL) 500 mg tablet Take 2 tablets by mouth every 6 hours.04/19/2021ctive magnesium hydroxide (MOM) 400 mg/5 mL suspension Take 30 mL by mouth twice daily.04/19/2021ctive metoprolol succinate ER (TOPROL XL) 50 mg 24 hr tablet TAKE 1 TABLET BY MOUTH EVERY DAY FOR 90 DAYS07/14/2022ctive ALPRAZolam (XANAX) 0.5 mg tablet Take 0.5 mg by mouth.11/12/2022ctive budesonide-formoterol (SYMBICORT) 160-4.5 mcg/actuation inhaler INHALE 2 PUFFS BY MOUTH TWICE A DAY *RINSE MOUTH AFTER USE*11/01/2022ctive Active Problems ProblemNoted DateDiagnosed DateAvascular necrosis of right humeral head 04/10/2023Incisional hernia, without obstruction or iiobjyqm01/14/2021Nicotine use disorder, F17.ost-operative state04/19/2021bdominal pain 04/16/20215874Zgzixauuvm24/19/2016 Immunizations ImmunizationAdministration DatesNext DueCOVID-19 original vaccine, age 12+ yr, monovalent (PFIZER-BIONTECH - PURPLE TOP)02/08/2021,01/18/2021influenza (IIV3) vaccine, trivalent (AFLURIA, FLULAVAL, FLUVIRIN, FLUZONE)06/12/2015influenza (IIV3) vaccine, trivalent, PF, intradermal (FLUZONE INTRADERMAL)06/10/2019 influenza vaccine, unspecified gltxojkafbf07/01/2015pneumococcal polysaccharide (PPV23) vaccine, 23 valent (PNEUMOVAX 23)08/06/2019 Social History Tobacco UseTypesPacks/DayYears UsedDateSmoking Tobacco: Some DaysSmokeless Tobacco: Never Tobacco Cessation:Ready to Q uit: Not Asked; Counseling Given: Not Answered Area Deprivation IndexAnswerDate RecordedNational Score (1-100), lower number is lower zqbn6155State Score (1-10), lower number is lower ovvy676 Data from: https://www.neighborhoodatlas.medicine.[facility].edu/. Last address used for [address] 03/27/2023CommentsNoSex and Gender InformationValueDate RecordedSex Assigned at BirthNot on fileLegal SexFemale 08/26/2012 9:50 AM ESTGender IdentityNot on fileSexual OrientationNot on file Last Filed Vital Signs Vital SignReadingTime TakenCommentsBlood Rannhiie033/8911 10:58 AM EDT Jgsur6397/03/2022 10:58 AM NYMXyidycorsfn32.6 ??C (97.8 ??F)07/28/2022 10:58 AM EDTRespiratory Vhew530509/27/2021 10:58 AM EDTOxygen Occltcmqwq98%04/19/2021 9:06 AM EDTInhaled Oxygen Concentration--Basaht84 kg (130 lb)03/30/2023 10:59 AM EDT Miwscz923.9 cm (4' 11 )03/30/2023 10:59 AM EDTBody Mass Index26.2607 10:59 AM EDT Plan of Treatment DateTypeDepartmentCare Team (Latest Contact Info)Pjkikzwlfoz97/16/2026 9:20 AM ESTOffice Visit Gastroenterology [address] [place] [address] Lucius Vasquez Jr., DO [address] [facility] [address] [address] German Sheehan's office referring the patient to be seen in GI for C difficile enteritis, prev patient of Dr. Vasquez.Health MaintenanceDue DateLast DoneComments Anxiety Iypcmojwn23/14/1993Depression Dtrnvfzyv44/14/1993Hepatitis B Vaccine (1 of 3 - 19+ 3-dose series)1993Cervical Cancer Naqmwxcin03/14/1996Mammogram Mzhjaqken76/14/2015Medicare Annual Wellness Visit03/25/2015CT Colonography 2019Cologuard (FIT-DNA)11/08/20193468Dofpafevmel65/14/2020Colorectal Cancer Yxbszgskm68/14/2020Fecal Occult Blood2019Lipid Jqpbubyvl24/14/2020 Dfkzwdkyilamd59/14/2020Pneumococcal Vaccine: 50+ (2 of 2 - PCV)08/06/2020 08/06/2019Diabetes Ngmifsfmp85/, 04/17/2021, 04/13/2021, Additional history existsShingrix Vaccine (1 of 2)5Covid-19 Vaccine (3 - season)/, 01/18/2021Influenza Vaccine (#1) /, 06/25/2015, 06/12/2015DTaP,Tdap,Td Vaccine (3 - Td or Tdap)2110/02/2021, 08/02/2022HIV AmnqunoicEfyehngwb99/23/2021Hepatitis C TstyeqtklAoskkhoyk08/23/2021 Medical Devices ImplantedTypeAreaManufacturerDevice IdentifierShelf Expiration DateModel / Serial / LotMesh Prolene Polypropylene 6x4in Surgical Patch Soft Flat Sterile Hernia - [id number] Implanted:Qty[facility]/A: AbdomenBARD DAVOL INC 06/21/[id number] / / [id number] Procedures Procedure NamePriorityDate/TimeAssociated DiagnosisCommentsBASIC METABOLIC PANEL STAT04/18/2021 1:10 AM EDT OCCUPATIONAL HEALTH EXPOSURE PROFILE/UVWXLSOCKDR59/23/2021 11:50 AM EDT from Last 3 Months or Most Recently Relevant to Health Maintenance Results * (ABNORMAL) BASIC METABOLIC PNL (04/18/2021 1:10 AM EDT)ComponentValueRef Range Test MethodAnalysis TimePerformed AtPathologist AxqfhsywiBrrhyvi6521 - 99 mg/dL04/18/2021 2:45 AM [facility] LaboratoriesComment: The [place] Diabetes Association (ADA) provides guidance for cutoff [...] Standards of Medical Care in Diabetes 2016, [place] Diabetes Association. Diabetes Care. 2016.39(Suppl 1). BUN87 - 21 mg/dL04/18/2021 2:45 AM [facility] LaboratoriesCreatinine 0.610.58 - 0.96 mg/dL04/18/2021 2:45 AM [facility] LaboratoriesSodium 945681 - 144 mmol/L04/18/2021 2:45 AM [facility] LaboratoriesPotassium 3.93.7 - 5.1 mmol/L04/18/2021 2:45 AM [facility] LaboratoriesChloride 15412 - 105 mmol/L04/18/2021 2:45 AM [facility] MjbuidctxxwaZK70948 - 30 mmol/L04/18/2021 2:45 AM [facility] LaboratoriesAnion Gap7(L)9 - 18 mmol/L04/18/2021 2:45 AM [facility] LaboratoriesCalcium8.58.5 - 10.2 mg/dL04/18/2021 2:45 AM [facility] LaboratorieseGFR->60 04/18/2021 2:45 AM [facility] LaboratorieseGFR-All Other Races>60. 04/18/2021 2:45 AM [facility] LaboratoriesComment: eGFR (Estimated GFR) Units of measure: mL/min/1.73 [...] eGFR may not accurately reflect actual GFR. Specimen (Source)Anatomical Location / LateralityCollection Method / Volume Collection TimeReceived TimeBloodBLOOD SPECIMEN / Lsuqvfa7104/18/2021 1:10 AM EDT 04/18/2021 1:11 AM EDT Narrative Authorizing ProviderResult TypeResult StatusLucas Dixon Pardo MD LABORATORYFinal ResultPerforming OrganizationAddressCity/State/ZIP CodePhone Number [facility] [address] [place] [address] [facility] [address] [place] [address] * OCCUPATIONAL HEALTH EXPOSURE PROFILE/PATIENT (04/16/2021 11:50 AM EDT) ComponentValueRef RangeTest MethodAnalysis TimePerformed AtPathologist WyvsebljgTVaNbSxhcuesxEyhtrpaj17/23/2021 8:00 PM EDTClevelSelect Medical Specialty [facility] [place] LaboratoriesHIV 12 Combo (Ag/Ab)Non ReactiveNon Jgbfmvad10/23/2021 10:50 PM EDTCLancaster Municipal Hospital LaboratoriesHIV 1/2 Ab ConfirmatoryTest Not Indicated 04/16/2021 10:50 PM EDTCLancaster Municipal Hospital LaboratoriesHIV InterpretationNegative 04/16/2021 10:50 PM [facility] LaboratoriesComment: No evidence of HIV-1 or HIV-2 infection. Should recent infection be suspected, repeat testing may be considered 2-3 weeks after this draw. HIV Information: [place] Rev. Code 3701.243(E): This information has been disclosed to you from confidential records protected from disclosure by state law. ??You shall make no further disclosure of this information without the specific, written, and informed release of the individual to whom it pertains or as otherwise permitted by state law. A general authorization for the release of medical or other information is not sufficient for the purpose of the release of HIV test results or diagnoses. Hep C Antibody BCSgreqqvsGvusubpn35/23/2021 8:[address] [facility] LaboratoriesHIV, Rapid ([facility])Non ReactiveNon Dcehqvsz11/23/2021 12:39 PM EDTCLancaster Municipal Hospital LaboratoriesComment: Called to and read back by: IKER [facility] [phone] Negative for HIV-1 and HIV-2 antibodies. A non-reactive result does not preclude the possibility of exposure to HIV or infection with HIV. ??An antibody response to recent exposure may take several weeks to reach detectable levels with this assay. Performed by the [facility] Rapid HIV-1/2 Antibody Test. HIV Information: [place] Rev. Code 3701.243(E): This information has been disclosed to you from confidential records protected from disclosure by state law. ??You shall make no further disclosure of this information without the specific, written, and informed release of the individual to whom it pertains or as otherwise permitted by state law. A general authorization for the release of medical or other information is not sufficient for the purpose of the release of HIV test results or diagnoses. Specimen (Source)Anatomical Location / LateralityCollection Method / Volume Collection TimeReceived TimeOTHER / Hdjmizz3704/16/2021 11:50 AM EDT04/16/2021 12:05 PM EDTComment:SERUM~BLOOD, WHOLE Narrative Authorizing ProviderResult TypeResult StatusYris Israel FOREST FIRE PREVENTION SPECIALIST.CNPLABORATORY Final ResultPerforming OrganizationAddressCity/State/ZIP CodePhone Number [facility] [address] [place] [address] [facility] [address] [place] [address] from Last 3 Months or Most Recently Relevant to Health Maintenance Insurance * Guarantor: Abeba Elam TypeRelation to PatientDate of BirthPhone Billing AddressPersonal/VumcvcFydr57/14/1976 [facility] [place] [address] Care Teams Team MemberRelationshipSpecialtyStart DateEnd Date Gracy Medina MD [address] [place] [address] PCP - GeneralFamily Medicine04/11/21 Gracy Medina MD [address] [place] [address] ReferringFamily Medicine03/07/23 German Sheehan DO [address] [facility] [address] [place] [address] ReferringFamily Medicine03/04/25
--- OUTSIDE RECORDS SUMMARY | 2025-08-26 12:10 | XMS_ITS | Clinical Summary ---
Author Organization [employer] [facility] tem Address [id number] [address] [place] [address] Care Team Providers Care Research Aide Name Role Phone Gracy Medina MD Primary Care Provider Allergies Active AllergyReactionsCriticalityNoted SvysTsaqmheqKlbhlimkay83/30/2023 QsouxgwcsqfRpzdbcul64/03/7027Lzknxobbish94/30/9626Ztdunnmimi17/30/2023 Medications MedicationSigDispense QuantityRefillsLast FilledStart DateEnd DateStatus QUEtiapine (SEROquel) 50 mg tablet Take 1.5 tablets (75 mg total) by mouth nightly.Active pantoprazole (PROTONIX) 40 mg EC tablet Take 1 tablet (40 mg total) by mouth in the morning.Active metoprolol succinate XL (TOPROL XL) 100 mg 24 hr tablet Take 1 tablet (100 mg total) by mouth in the morning.Active ALPRAZolam (NIRAVAM) 0.5 MG disintegrating tablet Dissolve 1 tablet (0.5 mg total) on tongue 3 (three) times a day as needed for anxiety.Active alendronate (FOSAMAX) 70 mg tablet Take 1 tablet (70 mg total) by mouth every 7 days. In a.m. with water on empty stomach, nothing else by mouth and remain upright for 30minActive Social History Tobacco UseTypesPacks/DayYears UsedDateSmoking Tobacco: Every DayCigarettes0.536 Smokeless Tobacco: Never Tobacco Cessation:Ready to Q uit: Not Asked; Counseling Given: Not Answered Alcohol UseStandard Drinks/WeekCommentsNot Asked0 (1 standard drink = 0.6 oz pure alcohol)occasionallyChildcareAnswerDate SijxykttIzhtknxktEycuokw91/12/2019 EmploymentAnswerDate WegusndcFgmcwytgudRxltcvu61/12/2019Hunger ScreeningAnswer Date RecordedWithin the past 12 months we worried whether our food would run out before we got money to buy more.Never True08/24/2023Within the past 12 months the food we bought just didn't last and we didn't have money to get more.Never True08/24/2023CommentsNoSex and Gender InformationValueDate RecordedSex Assigned at BirthNot on fileLegal ZwnKhnbcw62/06/2015 12:05 PM EDTGender IdentityNot on fileSexual OrientationNot on file Last Filed Vital Signs Vital SignReadingTime TakenCommentsBlood Yyqiebld605/9408/24/2023 6:55 PM EST Vsufq094608/24/2023 6:55 PM BOWWehcpqnzgqr04.5 ??C (97.7 ??F)08/24/2023 6:55 PM ESTRespiratory Yxzb205710/24/2022 6:55 PM ESTOxygen Rluyszpmnl22%08/24/2023 6:55 PM ESTInhaled Oxygen Concentration--Nqfsxo97.5 kg (140 lb)08/24/2023 6:55 PM EST Yscabm154.9 cm (4' 11 )08/24/2023 6:55 PM ESTBody Mass Index28.28110/24/2022 6:55 PM EST Plan of Treatment Not on file Medical Devices Not on file [place] [address] Care Teams Team MemberRelationshipSpecialtyStart DateEnd Date Gracy Medina MD PCP - GeneralFamily Ltjafzda86/30/23
--- OUTSIDE RECORDS SUMMARY | 2025-08-26 12:10 | XMS_ITS | Clinical Summary ---
Author Organization [facility] Address [address] [place] [address] Care Team Providers Care Mac Developer Name Role Phone Link, German DESHPANDE Primary Care Provider [phone] Allergies Active AllergyReactionsCriticalityNoted VmxaNvvhjhteYtddxgctuvSjilcqj21/12/2004 ClindamycinDiarrhea,Khjdmpt5309/27/20232127Rvpabkvffyx29/09/2022VancomycinOther 05/16/2004 Medications MedicationSigDispense QuantityRefillsLast FilledStart DateEnd DateStatus [...] any major fluid shifts. Change in bowel kdhzcy11ain in right wcytgiop47/01/2024 11/24/2023Weight lossurrent Overview (04/13/2023): Added secondary to documentation in Social History. Added secondary to documentation in Social History. Staph llavenjwz27sthma04/13/2023hest pain04/13/2023OPD (chronic obstructive pulmonary disease)04/13/2023ipolar 1 iwdrgcal34/01/2023 04/13/2023ifficulty koxotzp45isplaced trimalleolar fracture of left lower leg, initial encounter for closed Essential avvzlexlohrp28 Assessment & Plan (11/24/2023 1:39 PM EST): Hypertension is uncontrolled Continue toprol 100 mg daily, and will add lisinopril 5 mg daily and will repeat BMP in about 1 week after starting. Please notify office for any dry persistent cough Paresthesia of skinbsence of eqlnur39 Pkohdvjsiywitig26vascular necrosis of right humeral head hronic tyvmxtphttw49Scoliosis02/13/2023 04/13/2023Stress at homeOrthopnea10/28/2022 Assessment & Plan (10/28/2022 2:56 PM EST): Will order sleep study Poor sleep yiytfrw3910/28/2022 Assessment & Plan (10/28/2022 2:56 PM EST): Will order sleep study and new referral to a different turkey egg gatherer SVT (supraventricular tachycardia)08/03/2022 Assessment & Plan (11/24/2023 1:35 PM EST): Continue toprol 100 mg daily SVT stable currently Assessment & Plan (10/28/2022 2:53 PM EST): Continue metoprolol as prescribed Assessment & Plan (08/03/2022 1:08 PM EST): We will place 3-day Holter monitor to assess for any significant arrhythmia and heart rates. Continue metoprolol 50 mg as prescribed Dyspnea on rjqczqga18/09/2022 Assessment & Plan (10/28/2022 2:55 PM EST): Stable currently with inhalers Will order PFT again and sleep study in light of c/o poor sleeping and orthopnea- waking up short of breath. Referral to new turkey egg gatherer- r/t pt does not want to return [...] factor is being a smoker. GERD without kqmaghfcmen11/09/2022 Assessment & Plan (08/03/2022 1:08 PM EST): Follow-up with PCP Mjmfrryiofjk55/09/2022 Assessment & Plan (10/28/2022 2:55 PM EST): Continue toprol Assessment & Plan (08/03/2022 1:09 PM EST): PT with tachycardia intermittently and will order 48 hour holter monitor to assess for any arrythmia Continue Toprol Incisional hernia, without obstruction or uwfsskeh50/Nicotine use awsltjsu35/26/ost-operative state Abdominal painNeuropathyhronic post- traumatic qerhefki89Environmental ikleibaoh95/14/2019 04/13/2023Major depressive disorder, single episode, bvmyksrchwo63/14/2019 04/13/2023cquired absence of both cervix and vjzyrp28nxiety disorder, wromojhgxwh98Status post cxszttpqcnau26/14/2019 04/13/20230760Gzztplihh98/04/4970Msiwgdyogr61/19/Idiopathic scoliosis and eksqmgmfpuiuqp27 Overview (04/13/2023): Scoliosis (and kyphoscoliosis), idiopathic IMO4.1.23 Scoliosis (and kyphoscoliosis), idiopathic IMO4.1.23 Arthrodesis vwkkeq14Sciatica Immunizations ImmunizationAdministration DatesNext HkcJFE4610/02/2021Influenza, Unspecified 06/25/2015Influenza, seasonal, ewkpupyars00/18/2015Influenza, seasonal,quadrivalent, preservative free06/10/2019Pneumococcal Polysaccharide FVA737710/06/20182258Yahe43/08/2022 Family History Medical HistoryRelationNameCommentsNo Known ProblemsBrotherHeart failureFather [...] file11/16/2023CommentsUnknownSex and Gender InformationValueDate RecordedSex Assigned at XwfvdFfzmob85/07/2025 1:51 PM EDTLegal MpvYagdos88/30/2022 12:06 AM EDTGender NoeadvqrXumrbh20/07/2025 1:51 PM EDTSexual OrientationHeterosexual or Mdcwklvb79/07/2025 1:51 PM EDT Last Filed Vital Signs Vital SignReadingTime TakenCommentsBlood Zadefzoh490/7932602/20/2025 1:48 PM EDT Nrvlc27891/29/2025 1:34 PM EDTTemperature--Respiratory Rate--Oxygen Saturation 97%02/20/2025 1:34 PM EDTInhaled Oxygen Concentration--Jimncr32.1 kg (137 lb) 02/20/2025 1:34 PM IKSTtomyh957.9 cm (4' 11 )02/20/2025 1:34 PM EDTBody Mass Index27.67002/20/2025 1:34 PM EDT Plan of Treatment Health MaintenanceDue DateLast DoneCommentsCT Nljijecgbcsn89/14/1975FIT-DNA 1974FIT1974FOBT1974Medicare Annual Wellness (AWV)1974 Sijrboorogtcf96/14/1975Depression Bbcwcynic03/14/1987Hepatitis B Vaccines (1 of 3 - 19+ 3-dose series)1993Pap Smear1995Cervical Cancer Screening 2004HPV/Dxebzi6311/08/2004Pneumococcal Vaccine: Pediatrics (0 to 5 Years) and At-Risk Patients (6 to 64 Years) (2 of 2 - PCV)Mammogram 04/20/Zoster Vaccines (1 of 2)5COVID-19 Vaccine (3 - season)/, 01/18/2021Influenza Vaccine (#1)2025 06/10/2019, 06/25/2015, 06/12/20156344Zoujfgiamik07Colorectal Cancer Javhzzorq95/22/2029Adult Helpmzg58HIB VaccinesAged Out No longer eligible based on [...] Team MemberRelationshipSpecialtyStart DateEnd Date German Sheehan MD [address] [place] [address] [address] [place] [address] PCP - GeneralFamily Medicine02/20/25
--- OUTSIDE RECORDS SUMMARY | 2025-08-26 12:10 | XMS_ITS | Clinical Summary ---
Author Organization [facility] Address [address] [place] [address] Care Team Providers Care Dispensary Technician Name Role Phone Gracy Medina MD Unavailable Unallocated, Noms Provider MD Primary Care Provi cinthya Allergies Active AllergyReactionsCriticalityNoted PlscXtfekxpwAutlwhrghsLymqghb10/22/2023 ZihqzkghtqeFuvuake38/22/1312Uhvdvqvmsl19/22/2023 Other Reaction(s): iv drip only Wound Dressing GsttsqetLojdQkc34/08/2023 can use paper tape Medications MedicationSigDispense QuantityRefillsLast FilledStart DateEnd DateStatus ALPRAZolam (Xanax) 0.5 MG tablet Take 0.5 mg by mouth 3 (three) times a day as needed.Active metoprolol succinate XL (Toprol-XL) 50 MG 24 hr tablet Take 100 mg by mouth in the morning.Active Symbicort 160-4.5 MCG/ACT inhaler INHALE 2 PUFFS BY MOUTH TWICE A DAY *RINSE MOUTH AFTER USE*11/01/2022ctive pantoprazole (ProtoNix) 40 MG EC tablet Indications:Gastro-esophageal reflux disease without esophagitisTAKE 1 TABLET BY MOUTH EVERY DAY 90 tablet ctive lisinopril 5 MG tablet Take 5 mg by mouth in the morning.11/24/2023ctive QUEtiapine (SEROquel) 25 MG tablet Take 25 mg by mouth at vlfieiz6811/27/2023ctive QUEtiapine (SEROquel) 50 MG tablet Take 50 mg by mouth at cwtjqtq7311/21/2023ctive oxyCODONE-acetaminophen (Percocet) 5-325 MG tablet TAKE 1 TABLET BY MOUTH EVERY 6 HOURS NEEDED FOR PAIN FOR 7 DAYS12/21/2023 Active methocarbamol (Robaxin) 750 MG tablet Indications:Dorsalgia, unspecifiedTAKE 1 TABLET BY MOUTH THREE TIMES A DAY NEEDED FOR PAIN 90 tablet ctive albuterol HFA 90 mcg/act inhaler Indications:Chronic obstructive pulmonary disease, unspecified COPD type ([facility]) INHALE 2 PUFFS EVERY 6 HOURS IF NEEDED FOR SHORTNESS OF BREATH OR WHEEZING 18 g ctive alendronate (Fosamax) 70 MG tablet Indications:Other osteoporosis without current pathological fractureTAKE 1 TAB BY MOUTH ONCE A WEEK ON EMPTY STOMACH WITH FULL GLASS WATER.DO NOT EAT/LIE DOWN R51SKIE. 12 tablet 5Active Active Problems ProblemNoted DateDiagnosed TcxiGnjsoc26/20/2023OPD (chronic obstructive pulmonary disease)04/13/2023urrent cndlom1704/13/2023 Overview (05/02/2023): Added secondary to documentation in Social History. Added secondary to documentation in Social History. Bipolar 1 ksaxdcni14/01/2023bsence of smwzby4302/13/20233861Gxlyffytybdhuyr28/22/2023 Avascular necrosis of right humeral head02/13/2023hronic post-traumatic headache, not zcplcoepbfj26/22/2023hronic vxuhjuwymjc81/22/2023isplaced trimalleolar fracture of left lower leg, initial encounter for closed fracture 02/13/2023ifficulty ylumatr9802/13/20230450Czfcjutpq24/22/2023Essential hypertension 02/13/2023astroesophageal reflux vbnwajm1802/13/2023Hip pain02/13/2023Major depressive disorder, single episode, akghitsxddr20/22/4952Hhyroubzvv14/22/2023 Paresthesia of skin02/13/2023nxiety disorder, flxohjlbuot99/22/2023TSD (post- traumatic stress disorder)02/13/20239619Iretzqdri11/22/2023Stress at home02/13/2023 Poor sleep rmvwprm6010/28/2022 Overview (02/23/2023): Last Assessment & Plan: Will order sleep study and new referral to a different manager sales Xuxdvdrpzjbu80/09/2022 Overview (02/23/2023): Last Assessment & Plan: Continue toprol SVT (supraventricular tachycardia)08/03/2022 Overview (02/23/2023): Last Assessment & Plan: Continue metoprolol as prescribed GERD without rxienozqmht37/09/2022 Overview (02/23/2023): Last Assessment & Plan: Follow-upwith PCP Nicotine use ttexzdsh82/26/2021Chronic post-traumatic vcnqdeaf32/14/2020 Environmental pkaxgxdtj00/14/2019Acquired absence of both cervix and uterus 03/08/2019Arthrodesis crsfmr9403/12/2004Idiopathic scoliosis and kyphoscoliosis 03/12/2004 Overview (02/23/2023): Scoliosis (and kyphoscoliosis), idiopathic IMO4.1.23 Vwgqqhli78/18/2004 Encounters DateTypeDepartmentCare VvrlCnrupgfgvas18/02/2025Refill [facility] [address] [place] [address] Georgie Rodríguez, SOLE TRIMMER Other osteoporosis without current pathological fracturefrom Last 3 Months Immunizations ImmunizationAdministration DatesNext XqmYVX2410/02/2021Influenza, Unspecified 06/25/2015Influenza, seasonal, mtxujiswfz71/18/2015Influenza, seasonal, intradermal, preservative free06/10/2019Pneumococcal Polysaccharide PPSV23 08/06/2019Tdap110/02/2021 Family History Medical HistoryRelationNameCommentsCancerFatherHypertensionFatherStrokeFather Heart diseaseMotherHypertensionMotherRelationNameStatusCommentsFatherAliveMother Alive Social History Tobacco UseTypesPacks/DayYears UsedDateSmoking Tobacco: Every DayCigarettes Tobacco Cessation:Ready to Q uit: Not Asked; Counseling Given: Not Answered Alcohol UseStandard Drinks/WeekCommentsYes1 (1 standard drink = 0.6 oz pure alcohol)Caffeine intake : 3-4 cups per itiW0125 Health LiteracyAnswerDate RecordedHow often do you need to have someone help you when you read instructions, pamphlets, or other written material from your doctor or pharmacy? Pmaaivjlo72/30/2024Humiliation, Afraid, Rape, and Kick questionnaireAnswerDate RecordedWithin the last year, have you been afraid of your partner or ex-partner?No02/23/2023Within the last year, have you been humiliated or emotionally abused in other ways by your partner or ex-partner?Yes02/23/2023 Within the last year, have you been kicked, hit, slapped, or otherwise physically hurt by your partner or ex-partner?No02/23/2023Within the last year, have you been raped or forced to have any kind of sexual activity by your part ner or ex-partner?No02/23/2023Social Connection and Isolation PanelAnswerDate RecordedIn a typical week, how many times do you talk on the phone with family, friends, or neighbors?More than three times a week06/24/2024How often do you get together with friends or relatives?Three times a week06/24/2024How often do you attend islam or islam services?Never4Do you belong to any clubs or organizations such as islam groups, unions, fraternal or athletic groups, or school groups?No06/24/2024How often do you attend meetings of the clubs or organizations you belong to?Never4Are you , , , , never , or living with a partner?Lyxskdhjt31/30/2024UDIT-C AnswerDate RecordedQ1: How often do you have a drink containing alcohol?2-3 times a week06/24/2024Q2: How many drinks containing alcohol do you have on a typical day when you are drinking?1 or Q3: How often do you have six or more drinks on one occasion?Less than wmijrlk9306/24/2024Overall Financial Resource Strain (CARDIA)AnswerDate RecordedHow hard is it for you to pay for the very basics like food, housing, medical care, and heating?Very hard06/24/2024 PHQ-2AnswerDate RecordedPatient Health Questionnaire-2 Dcgvo716Finamerican fork hospital [place] [facility] Occup[facility] - Occupational Stress QuestionnaireAnswerDate RecordedDo you feel stress - tense, restless, nervous, or anxious, or unable to sleep at night because yourmind is troubled all the time - these days?Very much 06/24/2024Exercise Vital SignAnswerDate RecordedOn average, how many days per week do you engage in moderate to strenuous exercise (like a brisk walk)?0 days 06/24/2024On average, how many minutes do you engage in exercise at this level?0 min06/24/2024Hunger Vital SignAnswerDate RecordedWithin the past 12 months, you worried that your food would run out before you got the money to buymore. Sometimes true06/24/2024Within the past 12 months, the food you bought just didn't last and you didn't have money to get more.Often true06/24/2024RAPARE - TransportationAnswerDate RecordedIn the past 12 months, has lack of transportation kept you from medical appointments or from getting medications? Yes06/24/2024In the past 12 months, has lack of transportation kept you from meetings, work, or from getting things needed for daily living?Yes06/24/2024 Housing Stability Vital SignAnswerDate RecordedIn the last 12 months, was there a time when you were not able to pay the mortgage or rent on time?No02/23/2023In the last 12 months, how many places have you lived?In the last 12 months, was there a time when you did not have a steady place to sleep or slept in ashelter (including now)?No02/23/2023Housing Stability Vital SignAnswerDate RecordedIn the last 12 months, was there a time when you were not able to pay the mortgage or rent on time?No06/24/2024Number of Times Moved in the Last Year Not on file06/24/2024t any time in the past 12 months, were you homeless or living in a penitentiary (including now)?No06/24/2024CommentsUnknownSex and Gender InformationValueDate RecordedSex Assigned at BirthNot on fileLegal Sex Avvxaj1812/07/2022 6:58 PM EDTGender IdentityNot on fileSexual OrientationNot on file Last Filed Vital Signs Vital SignReadingTime TakenCommentsBlood Uucbhlpx368/8408 1:45 PM EDT Cfsbf460905/02/2023 1:45 PM QFCUfsolmfiela47.3 ??C (97.4 ??F)05/02/2023 1:45 PM EDTRespiratory Rate--Oxygen Tnjzcxpman57%05/02/2023 1:45 PM EDTInhaled Oxygen Concentration--Bxwrzk12.2 kg (124 lb)01/19/2023 12:00 PM OMNThzbpi463.4 cm (5') 05/02/2023 1:45 PM EDTBody Mass Index24.22001/19/2023 12:00 PM EDT Plan of Treatment Health MaintenanceDue DateLast DoneCommentsCT Dtmiurodbxsm31/14/1975FIT-DNA 1974FIT9513OPZN38/14/7697Viquhcadjcags03/14/1975Pneumococcal Vaccine: Pediatrics (0 to 5 Years) and At-Risk Patients (6 to 64 Years) (2 of 2 - PCV)Mammogram/, 06/28/2019Medicare Annual Wellness (AWV)/, 05/26/2021OVID-19 Vaccine ( season), 01/18/2021Influenza Vaccine (#1)2025 06/10/2019, 06/25/2015, 06/12/20150467Zwytgbtutsn74, 12/23/2004 Colorectal Cancer Tbzwattcx07/22/2029 Procedures Procedure NamePriorityDate/TimeAssociated DiagnosisCommentsBI MAMMOGRAM SCREENING TOMOSYNTHESIS SFQPVHSGUEjmagqq78/27/2022 Overweight Tobacco use Essential (primary) hypertension Tachycardia, unspecified Body mass index (BMI) 26.0-26.9, adult Encounter for screening mammogram for malignant neoplasm of breast TRZRTVWPQQJShhdyvb77/22/2019 12:00 PM EDT from Last 3 Months or Most Recently Relevant to Health Maintenance Results * Bilateral screening mammogram with tomosynthesis (04/20/2022)Anatomical Region LateralityModalityBreastBilateralMammographySpecimen (Source)Anatomical Location / LateralityCollection Method / VolumeCollection TimeReceived Time Narrative 04/20/2022 12:00 AM EDT PERFORMED AT [facility] LOCATION:[place] [id number] Exam Date/Time: 04/20/2022 13:18 EDT Reason for Exam: Screening Report IMPRESSION: ??BIRADS 2 BENIGN FINDINGS NORMAL INTERVAL FOLLOW-UP Follow-up: 12 ??MONTH RECALL Dense Breast: No EXAM: [place] Mamm [...] used in the interpretation. Board Certified Radiologists. ??Accredited by the ACR and FDA. MAMMOGRAPHY IS VERY IMPORTANT TO YOUR HEALTH. THE CURRENT [employer] AND [employer]WORK GUIDELINES RECOMMENDS ANNUAL MAMMOGRAPHY BEGINNING AT AGE 40. THIS FACILITY UTILIZES A REMINDER SYSTEM TO ENSURE ALL PATIENTS RECEIVE REMINDER NOTIFICATIONS AT THE APPROPRIATE TIME BASED ON THE RECOMMENDATIONS OF THIS EXAM. Report FINAL REPORT Dictated: ??04/24/2022 8:38 am ? Andria Alejo Signed (Electronic Signature): ??04/24/2022 8:38 am Signed by: ??Andria Alejo Transcribed by: ??DP ? Technologist: ??AP Assessment: BI-RADS Category ??2-Benign finding Recommendation: ??Normal interval follow-up Procedure Note CONVERSION, GENERIC - 03/31/2023 PERFORMED AT [facility] LOCATION:[place] [id number] Exam Date/Time: 04/20/2022 13:18 EDT Reason for [...] VERY IMPORTANT TO YOUR HEALTH. THE CURRENT [employer] AND [facility] GUIDELINES RECOMMENDS ANNUAL MAMMOGRAPHY BEGINNING AT [...] Category 2-Benign finding Recommendation: Normal interval follow-up Authorizing ProviderResult TypeResult StatusGracy Medina MDIMJavier BI PROCEDURES Final Result * Colonoscopy (04/15/2019 12:00 PM EDT)Anatomical RegionLateralityModality EndoscopySpecimen (Source)Anatomical Location / LateralityCollection Method / VolumeCollection TimeReceived Time04/15/2019 12:00 PM EDT Narrative 04/15/2019 12:00 PM EDT PERFORMED AT [facility] LOCATION:[id number] Procedure Note CONVERSION, GENERIC - 02/08/2023 PERFORMED AT [facility] LOCATION:[id number] Authorizing ProviderResult TypeResult StatusGracy Medina MDENDOSCOPY PROCEDURE ORDERABLESFinal Result from Last 3 Months or Most Recently Relevant to Health Maintenance Insurance Care Teams Team MemberRelationshipSpecialtyStart DateEnd Date Gracy Medina MD [address] [place] [address] PCP - ACO 02/16/23 Unallocated, Noms MD Maria Ines [address] [place] [address] [facility]06/26/24
--- OUTSIDE RECORDS SUMMARY | 2025-08-26 12:12 | XMS_ITS | CCD ---
Author Organization [facility] Care Team Providers Care Evp Strategy Name Role Phone PHYSICIAN, DEFAULT Unavailable Unavailable PHYSICIAN, DEFAULT Unavailable Unavailable Gracy Medina Primary Care Physician [phone] Gale Vasquez Unavailable Gracy Medina MD Primary Care Provider Sadiq Wilson Unavailable PROVIDER, UNKNOWN Attending Unavailable PROVIDER, UNKNOWN Admitting Unavailable CAROL, HEIN Primary Care Unavailable BERNARDA CORTES Attending Unavailable SEBASTIAN, BERNARDA Consulting Unavailable SEBASTIAN, BERNARDA Admitting Unavailable HELENA ANDERSEN Consulting Unavailable HAY ., DR FREY Admitting Unavailable HAY ., DR FREY Attending Unavailable HAY ., DR FREY Consulting Unavailable CAROL, HIEN Primary Care Unavailable PAY ., DR JAY Admitting Unavailable PAY ., DR JAY Attending Unavailable PAY ., DR JAY Consulting Unavailable CAROL, PRINCEWICK Primary Care Unavailable KRISTINE ., FLORENCIA Consulting [...] Admitting Unavailable CAROL, HIEN Attending Unavailable CAROL, PRINCEWICK Primary Care Unavailable Gracy Medina MD Primary Care Provider [phone] Gracy Medina MD Unavailable CAROL GRACY Primary [...] Physician Unavailab le LinkGerman Primary Care Physician [phone] Gracy Medina MD Primary Care Provider [phone] Gracy Medina MD Unavailable Link German BETH [...] German Watson Attending Unavailable Link, German Watson Admitting Unavailable Saul Palmer Attending Unavailable Nash Neal Attending Unavailable NONE, XXXX Referring Unavailable Vani Suarez Attending Unavailable Beth Quinones. Attending Unavailable Link, German Watson Attending Unavailable Link, German Watson Attending Unavailable Link, German Watson Attending Unavailable Link, German Watson Attending Unavailable Saul Palmer Attending Unavailable CARMENDelia SILVERIOrick A Admitting Unavailable CARMEN Noel A Attending Unavailable Wicho Rvias Consulting Unavailable [place], MD Sands Consulting Unavailable PiermontWicho Consulting Unavailable [place], Wicho Consulting Unavailable [place], Wicho Consulting Unavailable [place], Wicho Consulting Unavailable [place], Wicho Consulting Unavailable [place], Wicho Consulting Unavailable [place], Wicho Consulting Unavailable [place], Wicho Consulting Unavailable Noel MORALES Admitting Unavailable CARMEN, Noel Cotton Attending Unavailable MD Wicho Rivas Consulting Unavailable Link, DO German Watson Admitting Unavailable MAIA SHEPARD Attending Shar Campbell Attending Unavailable CARMENNoel Admitting Unavailable CARMEN, Noel Cotton Attending Unavailable Rob, Wicho Consulting Unavailable MD Wicho Rivas Consulting Unavailable [place], Wicho Consulting Unavailable [place], Wicho Consulting Unavailable [place], Wicho Consulting Unavailable [place], Wicho Consulting Unavailable [place], Wicho Consulting Unavailable [place], Wicho Consulting Unavailable [place], Wicho Consulting Unavailable DO Antonio Weinberg Attending Unavailable LEE SHEPARD Attending Unav ailable LEE SHEPARD Admitting Unav ailable DO German Sheehan Attending Unavailable Link, DO German Watson Attending Unavailable LEE SHEPARD Attending Unav ailSaul Fish Attending Unavailable Carol DESHPANDE, Gracy Graff Primary Care Provider Gracy Medina MD Unavailable Meliton Shepherd Attending Unavailable Rob, Wicho Consulting Unavailable Noel MORALES Admitting Unavailable MD Wicho Rivas Consulting Unavailable [place], Wicho Consulting Unavailable [place], Wicho Consulting Unavailable [place], Wicho Consulting Unavailable [place], Wicho Consulting Unavailable [place], Wicho Consulting Unavailable [place], Wicho Consulting Unavailable [place], Wicho Consulting Unavailable Link, DO German Watson Admitting Unavailable LEE SHEPARD Attending Unav ailable LEE SHEPARD Admitting Unav ailable LEE SHEPARD Attending Unav ailable German Sheehan Referring Unavailable Vesna Mckay Attending Unavailable Link, German Watson Referring Unavailable Link, German Watson Admitting Unavailable Link, German Watson Attending Unavailable Link, German Watson Attending Unavailable Allergies Allergy ClassificationReported Allergen(s)Allergy TypeDate of OnsetReaction(s) Facility (20 sources)Bacitracin; Translations: [bacitracin]Drug Gksdhvs52-78-5341[facility]vW[facility] ([facility] sources)Vancomycin; Translations: [vancomycin]Drug Bqvckgs07-43-7212VnbydtsWvumedicine [facility] (20 sources)Tape 1Drug allergyOhioHealth Shelby HospitalComment on above: can use paper tape (20 sources)lamoTRIgine; Translations: [LAMOTRIGINE]Drug Uoummjr14-63-8939Gptznm Status Change, Unknown (qualifier value)[facility] (1 source)BacitracinDrug Btyrlvb01-96-2766Bka[facility] (14 sources)lamoTRIgine; Translations: [LaMICtal]Drug AllergyGood [facility] (1 source)VancomycinDrug AllergyGood Samaritan Hospital Repository (20 sources)Clindamycin; Translations: [clindamycin]Drug Zmfmcbp47-09-7096 Unknown (qualifier value)[facility] (5 sources)LamotrigineAllergy to qtvtozouz29-05-7733QbzftuoXGWH Healthcare (5 sources)Wound Dressing AdhesiveDrug Sxkgbst08-87-0258PwonJZJC Healthcare (1 source)BacitracinDrug Xdwkbag52-33-5658MyxupqeaaSelect [facility] (1 source)lamoTRIgineDrug Eugnwni35-09-0506HrqcduymcSelect [facility]ty [facility] [place] [facility] (1 source)VancomycinDrug Bhoxtjp35-15-9609DubuocjwmSelect [facility] [place] [facility] (13 sources)Adhesive Tape; Translations: [Tape]Propensity to adverse reactions (disorder)[facility] (11 sources)hydroCHLOROthiazide; Translations: [hydrochlorothiazide]Drug Allergy Hyponatremia (disorder)[facility] Medications Current Medications MedicationDrug Class(es)DatesSig (Normalized)Sig (Original)acetaminophen 325 mg oral tablet (11 sources)Start: 65-04-2519lmxd 2 tablets by mouth every six hours as needed for painacetaminophen 325 mg Tab 650 mg = 2 tab(s), Oral, q6hr, PRN Pain, Refills(s) 0 Start Date: 06/21/25 Status: Ordered Repeat number: 1Start: 90-10-4556zgls 2 tablets by mouth every six hoursacetaminophen (TYLENOL) 500 mg tablet Take 2 tablets by mouth every 6 hours. 04/19/2021 ActiveComment on above: Take 2 tablets by mouth every 6 hours.acetaminophen 325 mg / butalbital 50 mg / caffeine 40 mg oral tablet (1 source)Barbiturate, Central Nervous System Stimulant, MethylxanthineStart: 86-86-0633ZJTM/butalbital/caffeine 325 mg-50 mg-40 mg Tab 1 tab(s), Oral, q4hr Headache, 12 tab(s), Refill(s)0, [facility]/pharmacy #[id number], 150.7, cm, 06/20/25 17:26:00 EDT, Height/Length Dosing, 60.5, kg, 06/20/25 18:12:00 EDT, Weight Dosing Start Date: 06/21/25 Status: Ordered Quantity: 12.0 Unit: tab(s) Repeat number: 1acetaminophen 325 mg / HYDROcodone bitartrate 5 mg oral tablet (3 sources)Opioid AgonistStart: 46-77-0010Kqdle 325 mg-5 mg oral tablet 1 tab(s), Oral, q6hr for pain, 12 tab(s), Refill(s) 0 Start Date: 01/01/22 Status: Orderedacetaminophen 325 mg / oxyCODONE hydrochloride 5 mg oral tablet (12 sources)Opioid AgonistStart: 10-96-7507pgpd 1 tablet by mouth every eight hours as needed for painacetaminophen-oxycodone 325 mg-5 mg Tab TAKE 1 TABLET BY MOUTH EVERY 8 HOURS NEEDED FOR PAIN Start Date: 02/27/25 Status: Ordered Repeat number: 1Start: 96-45-1551szts 1 tablet by mouth every six hours as needed for painoxyCODONE-acetaminophen (Percocet) 5-325 MG tablet TAKE 1 TABLET BY MOUTH EVERY 6 HOURS NEEDED FOR PAIN FOR 7 DAYS 12/21/2023 ActiveStart: 83-25-1946Efpjdssu 5 mg-325 mg oral tablet See Instructions, 40 tab(s), Refill(s) 0, 1-2 tab(s) Oral q4hr, [id number], 149.9, cm, 11/12/22 6:57:00 EST, Height/Length Dosing, 65.4, kg, 11/12/22 6:57:00 EST, Weight Dosing Start Date: 11/12/22 Status: Ordered Quantity: 40.0 Unit: tab(s) Repeat number: 1albuterol 0.83 mg/ml inhalation solution (20 sources)beta2-Adrenergic AgonistStart: 97-92-6790pmlylyemy 0.083% Inh Teresita 3 mL 0.083% - 3mL dosing units, Inhalation, q4hr Wheezing, 225 mL, Refill(s) 3, dx. J45.909, [facility]/pharmacy #[id number], 150.7, cm, 06/20/25 17:26:00 EDT, Height/Length Dosing, 60.5,kg, 06/20/25 18:12:00 EDT, Weight Dosing Start Date: 06/23/25 Status: Ordered Quantity: 225.0 Unit: mL Repeat number: 4Start: 06-13-2025 albuterol 0.083% Inh Teresita 3 mL 0.083% - 3mL dosing units, Inhalation, q4hr Wheezing, 225 mL, Refill(s) 3, [facility]/pharmacy #[id number], 150.7, cm, 06/13/25 13:52:00 EDT, Height/Length Dosing, 60.4, kg, 06/13/2513:55:00 EDT, Weight Dosing Start Date: 06/13/25 Status: Ordered Quantity: 225.0 Unit: mL Repeat number: 4Start: 88-19-2195stwv 2 puff(s) by inhalation every six hours for wheezingalbuterol HFA 90 mcg/act inhaler Indications: Chronic obstructive pulmonary disease, unspecified COPD type ([facility]/HCC) INHALE 2 PUFFS EVERY 6 HOURS IF NEEDED FOR SHORTNESS OF BREATH OR WHEEZING 18 g 3 01/02/2024 ActiveStart: 26-40-2210rfkw 2 puff(s) by inhalation four times daily as needed for wheezingProAir HFA 90 mcg/inh inhalation aerosol 2 puff(s), Inhalation, QID PRN Wheezing, Refill(s) 0 StartDate: 11/11/12 Status: OrderedStart: 58-27-3992mjkn 3 mL by inhalation every four hoursalbuterol 0.083% Inh Teresita 3 mL 0.083% - 3mL dosing units, Inhalation, q4hr Wheezing, Refill(s) 0 Start Date: 11/11/12 Status: Ordered Repeat number: 1 Start: 62-75-7089xyhu 3 mL by inhalation every four hours [...] acid 70 mg oral tablet (16 sources)BisphosphonateStart: 15-80-8385zrblogibnty 70 mg Tab 70 mg = 1 tab(s), Oral, q7day, # 12 tab(s), Refills(s) 0 Start Date: 02/27/25 Status: Ordered Quantity: 12.0 Unit: tab(s) Repeat number: 1Start: 12-04-2023 End: 98-55-3553tejiaruprjo (Fosamax) 70 MG tablet Indications: Other osteoporosis without current pathological fracture TAKE 1 TAB WEEKLY IN MORNING ON EMPTY STOMACH WITH FULL GLASS OF WATER.DO NOT EAT/LIE DOWN NSD83MIK 12 tablet 11/17/2024 ActiveALPRAZolam 1 mg oral tablet (20 sources)BenzodiazepineStart: 95-05-7075eepn 1 tablet by mouth three times daily as needed for anxietyXanax 1 mg Tab 1 mg = 1 tab(s), Oral, TID, PRN for anxiety, # 90 tab(s), Refills(s) 1, Pharmacy: [facility]/pharmacy #[id number], 149.8, cm, 06/27/25 9:26:00 EDT, [...] 0.5 mg by mouth.Amoxicillin (6 sources)Penicillin-class AntibacterialStart: 36-15-8838qyeztojxgro Amoxicillin daily as directed., Refills(s) 0 Start Date: 05/23/25 Status: Ordered Repeatnumber: 1aspirin 81 mg delayed release oral tablet (4 sources)Platelet Aggregation Inhibitor, Nonsteroidal Anti-inflammatory Drug Start: 48-96-4185zgco 1 tablet by mouth once dailyaspirin 81 mg Oral EC Tab 81 mg = 1 tab(s), Oral, Daily, # 30 tab(s), Refills(s) 0, Pharmacy: [facility]/pharmacy #[id number], 150.7, cm, 06/20/25 17:26:00 EDT, Height/Length Dosing, 60.5, kg, 06/20/25 18:12:00 EDT, Weight Dosing Start Date: 06/21/25 Status: Ordered Quantity: 30.0 Unit: tab(s) Repeat number: 1Start: 11-12-2022 End: 76-06-9508vbxs 2 tablets by mouth once dailyaspirin 81 mg Oral EC Tab 162 mg = 2 tab(s), Oral, Daily, X 30 day(s), # 60 tab(s), Refills(s) 0, Pharmacy: [facility]/pharmacy #[id number], 149.9, cm, 11/12/22 6:57:00 EST, Height/Length Dosing, 65.4, kg, 11/12/22 6:57:00 EST, Weight Dosing Start Date: 11/12/22 Stop Date: 12/12/22 Status: Orderedatorvastatin 80 mg oral tablet (3 sources)HMG-CoA Reductase InhibitorStart: 81-58-6381mfou 1 tablet by mouth at bedtimeatorvastatin 80 mg Tab 80 mg = 1 tab(s), Oral, Bedtime, # 30 tab(s), Refills(s) 0, [id number] 150.7, cm, 06/20/25 17:26:00 EDT, Height/Length Dosing, 60.5, kg, 06/20/25 18:12:00 EDT, Weight Dosing Start Date: 06/21/25 Status: Ordered Quantity: 30.0 Unit: tab(s) Repeat number: 1benzonatate 100 mg oral capsule (10 sources)Non-narcotic AntitussiveStart: 73-18-5035usdw 2 capsules by mouth three times dailyTessalon 100 mg Cap 200 mg = 2 cap(s), Oral, TID, # 90 cap(s), Refills(s) 1, [id number] 150.7, cm, 02/27/25 10:37:00 EDT, Height/Length Dosing, 64.5, kg, 02/27/25 10:37:00 EDT, Weight Dosing Start Date: 02/27/25 Status: Ordered Quantity: 90.0 Unit: cap(s) Repeat number: 2 Indication s: Fracture of one rib, unspecified side, initial encounter for closed fracture; benztropine mesylate 1 mg oral tablet (10 sources)Anticholinergic, AntihistamineStart: 98-03-5953gvqd 1 tablet by mouth twice dailybenztropine (COGENTIN) 1 mg tablet Take 1 tablet by mouth twice daily. 04/19/2021 ActiveComment on above:Take 1 tablet by mouth twice daily. Symbicort (17 sources)Corticosteroid, beta2-Adrenergic AgonistStart: 80-02-9173Huynusaxk Inhalation, BID, Refill(s) 0 Start Date: 11/12/22 Status: Ordered Repeat number: 1Start: 19-66-8448Cmyanvuyl Inhalation, BID, Refill(s) 0 Start Date: 11/12/22 Status: OrderedStart: 07-52-9012cxed 2 puff(s) by mouth twice dailySymbicort 160-4.5 MCG/ACT inhaler INHALE 2 PUFFS BY MOUTH TWICE A DAY *RINSE MOUTH AFTER USE* 11/01/2022 ActiveStart: 54-35-2284voew 2 puff(s) by mouth twice daily budesonide-formoterol [...] Start Date: 02/27/25 Status: OrderedRepeat number: 1Start: 89-67-4054dqjuekcnmt 25 mg Tab = 2 tab(s), Oral, BIDWM, Refills(s) 0 Start Date: 02/27/25 Status: Ordered Repeat number: 1Cetirizine (2 sources)Histamine-1 Receptor AntagonistCetirizine HCl Activedicyclomine hydrochloride 20 mg oral tablet (20 sources)AnticholinergicStart: 04-22-2025 End: 60-83-3069gyal 1 tablet by mouth four times dailydicyclomine 20 mg Tab See Instructions, TAKE 1 TABLET BY MOUTH FOUR TIMES A DAY, # 360 tab(s), Refills(s) 1, Pharmacy: [facility] STORE [id number], 150.7, cm, 05/02/25 9:45:00 EDT, Height/Length Dosing, 64.1, kg, 05/02/25 9:45:00 EDT, Weight Dosing Start Date: 05/15/25 Status: Ordered Quantity: 360.0 Unit: tab(s) Repeat number: 1Start: 10-13-2023 End: 21-83-6240qfqy 1 capsule by mouth four times dailyBentyl 10 mg Cap 10 mg = 1 cap(s), Oral, QID, X 14 day(s), # 56 cap(s), Refills(s) 0, Pharmacy: [facility] pharmacy #[id number], 150, cm, 10/13/23 15:54:00 EST, Height/Length Dosing, 60, kg, 10/13/23 15:54:00 EST, Weight Dosing Start Date: 10/13/23 Stop Date: 10/27/23 Status: OrderedStart: 61-83-7784ivuoxueqati (BENTYL) 20 mg tablet Take 20 mg by mouth. 0 11/11/2012 ActiveStart: 11-11-2012 End: 49-32-7533mxjz 1 tablet by mouth four times dailydicyclomine 20 mg Tab 20 mg = 1 tab(s), Oral, QID, X 14 day(s), # 56 tab(s), Refills(s) 2, [id number], 150.7, cm, 02/27/25 10:37:00 EDT, Height/Length Dosing, 64.5, kg, 02/27/25 10:37:00 EDT, Weight Dosing Start Date: 02/27/25 Stop Date: 04/10/25 Status: Ordered Quantity: 56.0 Unit: tab(s) Repeat number: 3Comment on above:Take 20 mg by mouth.docusate sodium 100 mg oral capsule (18 sources)Start: 64-96-8392kybj 1 capsule by mouth twice dailydocusate sodium (COLACE) 100 mg capsule Take 1 capsule by mouth twice daily. 14 capsule 04/19/2021 ActiveComment on above:Take 1 capsule by mouth twice daily.dronabinol 5 mg oral capsule (2 sources)CannabinoidStart: 17-67-6650sevf 1 capsule by mouth every twelve hoursDronabinol [...] 25 mg oral tablet (3 sources)Thiazide DiureticStart: 51-08-0162epcr 1 tablet by mouth once daily hydrochlorothiazide 25 mg Tab 25 mg = 1 tab(s), Oral, Daily, # 30 tab(s), Refills(s) 0, [id number] 150.7, cm, 05/23/25 11:21:00 EDT, Height/Length Dosing, 63.9, kg, 05/23/25 11:21:00 EDT, Weight Dosing Start Date: 06/05/25 Status: Ordered Quantity: 30.0 Unit: tab(s) Repeat number:1ibuprofen 600 mg oral tablet (8 sources)Nonsteroidal Anti-inflammatory DrugStart: 01-32-8991liuz 1 tablet by mouth every eight hours as needed for painibuprofen 600 mg Tab 600 mg = 1 tab(s), Oral, q8hr, PRN as needed for pain, with food or milk, # 50tab(s), Refills(s) 0, [id number] 149.9, cm, 11/12/22 6:57:00 EST, Height/Length Dosing, 65.4, kg, 11/12/22 6:57:00 EST, Weight Dosing Start Date: 11/12/22 Status: Ordered Quantity: 50.0 Unit: tab(s) Repeat number: 1Lactulose (11 sources)Osmotic LaxativeStart: 75-53-0970zogvymkng 10 g/15 mL Oral Syrup 20 gm/30 mL 10 gram = 15 mL, Oral, BID, Take with 8 ounces of water, # 240 mL, Refills(s) 0 Start Date: 11/11/12 Status: Ordered Quantity: 240.0 Unit: mL Repeat number:1Start: 11-59-9777uxvragcvo 10 g/15 mL Oral Syrup 20 gm/30 mL 10 gram = 15 mL, Oral, BID, Take with 8 ounces of water, # 240 mL, Refills(s) 0 Start Date: 11/11/12 Status: OrderedStart: 28-77-6413zdwsybgnd 10 g/15 mL Oral Syrup 20 gm/30 mL 10 gram = 15 mL, Oral, BID, Take with 8 ounces of water, # 240 mL, Refills(s) 0, 0, Print Requisition Start Date: 11/11/12 Status: OrderedStart: 71-59-1650gnghqhhpl 10 g/15 mL Oral Syrup 20 gm/30 mL 10 gram = 15 mL, Oral, BID, Take with 8 ounces of water, # 240 mL, Refills(s) 0, 0, Print Requisition Start Date: 11/11/12 Status: OrderedLidocaine (5 sources)Antiarrhythmic, Amide Local AnestheticStart: 59-56-1127lwzudrwci 5% patch 2 patch(es), Topical, Daily, Refill(s) 0 Start Date: 06/23/25 Status: Ordered Repeat number: 1Start: 99-06-5464gzmpqwmca Top 5% film Patch 1 patch(es), Topical, Daily, 30 patch(es), Refill(s) 5, apply 12 hours on and 12 hours off daily, [facility]/pharmacy #[id number], 150.7, cm, 04/22/25 9:14:00 EDT, Height/Length Dosing, 64.7, kg, 04/22/25 9:14:00 EDT, Weight Dosing Start Date: 04/22/25 Status: Ordered Quantity: 30.0 Unit: patch(es) Repeat number: 6 Indications: Other forms of scoliosis, thoracic region; Primary osteoarthritis, right shoulder;Start: 03-30-2023 End: 75-34-3218dsozzhtwb (PF) 10 mg/mL (1 %) 4 mL injection (XYLOCAINE) linaclotide 0.145 mg oral capsule (10 sources)Guanylate Cyclase-C AgonistStart: 90-61-8811FAMJHTX 145 mcg capsule TAKE 1 CAPSULE DAILY AT LEAST 30 MINUTES BEFORE THE FIRST MEAL OF THE DAY ON AN EMPTY STOMACH 09/15/2020 ActiveComment on above:TAKE 1 CAPSULE DAILY AT LEAST 30 MINUTES BEFORE THE FIRST MEAL OF THE DAY ON AN EMPTY STOMACHlisinopril 5 mg oral tablet (1 source)Angiotensin Converting Enzyme InhibitorStart: 11-24-2023 End: 34-30-3829zgmq 1 tablet by mouth in the morninglisinopril 5 MG tablet Take 5 mg by mouth in the morning. 11/24/2023 11/23/2024 Activelosartan potassium 25 mg oral tablet (6 sources)Angiotensin 2 Receptor BlockerStart: 47-38-2385hvep 1 tablet by mouth once dailylosartan 25 mg Tab 25 mg = 1 tab(s), Oral, Daily, # 90 tab(s), Refills(s) 0 Start Date: 02/27/25 Status: Ordered Quantity: 90.0 Unit: tab(s) Repeat number: 1magnesium hydroxide 80 mg/ml oral suspension (11 sources)Start: 18-85-3453init 30 mL by mouth twice dailymagnesium hydroxide (MOM) 400 mg/5 mL suspension Take 30 mL by mouth twice daily. 04/19/2021 Active Comment on above:Take 30 mL by mouth twice daily.methocarbamol 750 mg oral tablet (5 sources)Muscle RelaxantStart: 50-14-8520pcwo 1 tablet by mouth three times daily as needed for painmethocarbamol (Robaxin) 750 MG tablet Indications: Dorsalgia, unspecified TAKE 1 TABLET BY MOUTH THREE TIMES A DAY NEEDED FOR PAIN 90 tablet 1 01/02/2024 ActiveStart: 01-01-2022 End: 41-82-6335bzif 1 tablet by mouth three times dailyRobaxin 500 mg Tab 500 mg = 1 tab(s), Oral, TID, X 3 day(s), # 12 tab(s), Refills(s) 0 Start Date: 01/01/22 Stop Date: 01/04/22 Status: OrderedMethocarbamol 750 MG Oral for 20 Days Active 24 hr metoprolol succinate 25 mg extended release oral tablet (20 sources)beta-Adrenergic BlockerStart: 83-68-6726inpgietqrh succinate 25 mg ER Tab 25 mg = 1 tab(s), Oral, Daily, Take with 50mg XR metoprolol for total of 75mg XR daily, # 30 tab(s), Refills(s) 1, Pharmacy: [facility]/pharmacy #[id number], 149.8, cm, 07/11/25 11:31:00 EDT, Height/Length Dosing, 62.6, kg, 07/11/25 11:31:00 EDT, Weight Dosing Start Date: 07/11/25 Status: Ordered Quantity: 30.0 Unit: tab(s) Repeat number: 2Start: 21-91-9933zdce 1 tablet by mouth once dailyToprol XL 100 mg Tab-ER 100 mg = 1 tab(s), Oral, Daily, # 90 tab(s), Refills(s) 4, [id number] 149.8, cm, 06/27/25 9:26:00 EDT, Height/Length Dosing, 58.8, kg, 06/27/25 9:26:00 EDT,Weight Dosing Start Date: 06/27/25 Status: Ordered Quantity: 90.0 Unit: tab(s) Repeat number: 5 Indications: Essential (primary) hypertension;Start: 51-76-8103yynd 1 tablet by mouth once dailyToprol XL 50 mg Tab-ER 50 mg = 1 tab(s), Oral, Daily, # 30 tab(s), Refills(s) 2, [id number] 150.7, cm, 06/13/25 13:52:00 EDT, Height/Length [...] 500 mg oral tablet (2 sources)Nitroimidazole AntimicrobialStart: 82-26-1290tlvj 1 tablet by mouth every eight hoursmetroNIDAZOLE 500 MG 1 tablet Orally Three times a day for 10 day(s) Apr, ActiveMilk of Magnesia 8% oral suspension (10 sources)Start: 64-26-0529xatm 2.4 g by mouth twice daily as needed for constipationMilk of Magnesia 8% oral suspension 2.4 gram = 30 mL, Oral, BID, PRN for constipation, Take with 8 ounces of water, # 360 mL, Refills(s) 0 Start Date: 11/11/12 Status: Ordered Quantity: 360.0 Unit: mLRepeat number: 1Start: 42-49-3120eqxo 2.4 g by mouth twice daily as needed for constipationMilk of Magnesia 8% oral suspension 2.4 gram = 30 mL, Oral, BID, PRN for constipation, Take with 8 ounces of water, # 360 mL, Refills(s) 0 Start Date: 11/11/12 Status: OrderedStart: 97-26-4662qxws 2.4 g by mouth twice daily as needed for constipationMilk of Magnesia 8% oral suspension 2.4 gram = 30 mL, Oral, BID, PRN PRN for constipation, Take with 8 ounces of water, # 360 mL, Refills(s) 0, 0, Print Requisition Start Date: 11/11/12 Status: Orderednaproxen 500 mg oral tablet (1 source)Nonsteroidal Anti-inflammatory DrugStart: 02-02-2025 End: 11-73-9782lmxu 1 tablet by mouth twice dailynaproxen 500 mg Tab 500 mg = 1 tab(s), Oral, BID, X 10 day(s), # 20 tab(s), Refills(s) 0, Pharmacy:[facility]/pharmacy #[id number], 149, cm, 02/02/25 18:37:00 EDT, Height/Length Dosing, 65, kg, 02/02/25 18:37:00EDT, Weight Dosing Start Date: 02/02/25 Stop Date: 02/12/25 Status: Ordered Quantity: 20.0 Unit: tab(s) Repeat number: 124 hr nicotine 0.292 mg/hr transdermal system (1 source)Cholinergic Nicotinic AgonistStart: 98-51-9138ijfnv 7 mg transdermal route once dailynicotine 7 mg/24 hr Transderm ER Film 7 mg, 1 patch(es), TransDermal, Daily, 14 EA, Refill(s) 0, [facility]/pharmacy #[id number], 149, cm, 06/23/25 19:50:00 EDT, Height/Length Dosing, 62.2, kg, 06/23/25 19:50:00 EDT, Weight Dosing Start Date: 06/25/25 Status: Ordered Quantity: 14.0 Unit: EA Repeat number: 1omeprazole 40 mg delayed release oral capsule (20 sources)Proton Pump InhibitorStart: 94-14-5380ijqo 1 capsule by mouth once dailyomeprazole 40 mg Cap-DR 40 mg = 1 cap(s), Oral, Daily, 30 minutes prior to food or any other medication., # 90 cap(s), Refills(s) 3, Pharmacy: [facility]/pharmacy #[id number], 150.7, cm, 02/27/25 10:37:00 EDT, Height/Length Dosing, 64.5, kg, 02/27/25 10:37:00 EDT, Weight Dosing Start Date: 02/27/25 Status: Ordered Quantity: 90.0 Unit: cap(s) Repeat number: 4Start: 51-79-9865kymo 1 capsule by mouth once dailyPrilosec 40 [...] release oral tablet (15 sources)Proton Pump InhibitorStart: 97-08-6779ihod 1 tablet by mouth once dailypantoprazole (ProtoNix) 40 MG EC tablet Indications: Gastro-esophageal reflux disease without esophagitis TAKE 1 TABLET BY MOUTH EVERY DAY 90 tablet 3 09/11/2023 ActiveStart: 35-66-2513yuyv 2 tablets by mouth once dailyProtonix 20 mg Tab-DR 40 mg = 2 tab(s), Oral, Daily, Refills(s) 0 Start Date: 11/12/22 Status: Ordered Repeat number: 1Start: 27-71-3648toqh 1 tablet by mouth once dailyProtonix 20 mg Tab-DR 20 mg = 1 tab(s), Oral, Daily, Refills(s) 0 Start Date: 11/12/22 Status: Ordered Repeat number: 1Start: 23-44-5415ugjb 1 tablet by mouth every twenty-four hoursPantoprazole Sodium 40 mg 1 tablet Orally Once a day for 30 days Aug, Activeplecanatide 3 mg oral tablet (10 sources)plecanatide (TRULANCE) 3 mg tab Take by mouth. ActiveComment on above:Take by mouth.predniSONE 50 mg oral tablet (1 source)Start: 01-01-2022 End: 14-65-2651igco 1 tablet by mouth once dailypredniSONE 50 mg Tab 50 mg = 1 tab(s), Oral, Daily, X 7 day(s), # 5 tab(s), Refills(s) 0 Start Date: 01/01/22 Stop Date: 01/08/22 Status: OrderedPrilosec 40 mg Cap-EC (1 source)Start: 20-25-9365pmbi 1 capsule by mouth once dailyPrilosec 40 mg Cap- EC = 1 cap(s), Oral, Daily, # 30 cap(s), Refills(s) 0 Start Date: 11/11/12 Status: OrderedProAir HFA 90 mcg/inh inhalation aerosol (9 sources)Start: 58-99-5961rbxt 2 puff(s) by inhalation four times dailyProAir HFA 90 mcg/inh inhalation aerosol 2 puff(s), Inhalation, QID Wheezing, Refill(s) 0 Start Date: 11/11/12 Status: Ordered Repeat number: 1Start: 18-34-8598inet 2 puff(s) by inhalation four times dailyProAir HFA 90 mcg/inh inhalation aerosol 2 puff(s), Inhalation, QID Wheezing, Refill(s) 0 Start Date: 11/11/12 Status: OrderedStart: 41-55-4895wpke 2 puff(s) by inhalation four times daily as needed for wheezingProAir HFA 90 mcg/inh inhalation aerosol 2 puff(s), Inhalation, QID PRN Wheezing, Refill(s) 0 StartDate: 11/11/12 Status: OrderedQUEtiapine 25 mg oral tablet (20 sources)Atypical AntipsychoticStart: 73-79-7405mhuw 1 tablet by mouth at bedtimeQUEtiapine (SEROquel) 25 MG tablet Take 25 mg by mouth at bedtime 11/27/2023 ActiveStart: 66-60-1125yijk 50 mg by mouth at bedtimeSeroquel 50 mg, Oral, Bedtime, Refills(s) 0 Start Date: 11/12/22 Status: Ordered Repeat number: 1 Start: 50-54-7219lftu 75 mg by mouth at bedtimeSeroquel 75 mg, Oral, Bedtime, Refills(s) 0 Start Date: 11/12/22 Status: Ordered Repeat number: 1Start: 16-74-6216jcku 75 mg by mouth at bedtimeSeroquel 75 mg, Oral, Bedtime, Refills(s) 0 Start Date: 11/12/22 Status: OrderedStart: 65-74-7282wydx 1 tablet by mouth twice dailyQUEtiapine (SEROQUEL) [...] daily.Ventolin HFA 90 mcg/inh Aerosol-Adpt (13 sources)Start: 41-02-4423nfmm 2 puff(s) by inhalation four times daily for wheezingVentolin HFA 90 mcg/inh Aerosol-Adpt 2 puff(s), Inhalation, QID for wheezing, 18 gram, Refill(s) 5,[facility]/pharmacy #[id number], 150.7, cm, 02/27/25 10:37:00 EDT, Height/Length Dosing, 64.5, kg, 02/27/25 10:37:00 EDT, Weight Dosing Start Date: 02/27/25 Status: Ordered Quantity: 18.0 Unit: g Repeat number: 6Vitamin D3 1000 intl units (25 mcg) Tab (1 source)Start: 57-17-6674kosh 1 tablet by mouth once dailyVitamin D3 1000 intl units (25 mcg) Tab 25 mcg = 1 tab(s), Oral, Daily, # 30 tab(s), Refills(s) 11, [id number] 149.8, cm, 06/27/25 9:26:00 EDT, Height/Length Dosing, 58.8, kg, 06/27/25 9:26:00 EDT, Weight Dosing Start Date: 06/30/25 Status: Ordered Quantity: 30.0 Unit: tab(s) Repeat number: 12 Indications: Vitamin D deficiency, unspecified; Completed/Discontinued Medications MedicationDrug Class(es)DatesSig (Normalized)Sig (Original)atenolol 25 mg oral tablet (2 sources)beta-Adrenergic BlockerStart: 54-39-8714xxtp 0.5 tablet by mouth twice dailyatenolol 25 mg Tab 25 mg = 1 tab(s), Oral, Daily, Split tab and take 0.5 tab BID, # 30 tab(s), Refills(s) 0, [id number], 150.7, cm, 06/10/25 16:56:00 EDT, Height/Length Dosing, 60, kg, 06/10/25 16:56:00 EDT, Weight Dosing Start Date: 06/10/25 Status: Ordered Quantity: 30.0 Unit: tab(s) Repeat number: 1potassium chloride 20 meq extended release oral tablet (3 sources)Start: 30-20-4268uysm 1 tablet by mouth once dailypotassium chloride 20 mEq ER Tab 20 mEq = 1 tab(s), Oral, Daily, # 30 tab(s), Refills(s) 11, [id number], 149.8, cm, 06/27/25 9:26:00 EDT, Height/Length Dosing, 58.8, kg, 06/27/25 9:26:00 EDT, Weight Dosing Start Date: 06/27/25 Status: Ordered Quantity: 30.0 Unit: tab(s) Repeat number: 12 Indications: Hypokalemia;Start: 67-57-2207znnp 2 capsules by mouth once dailypotassium chloride 10 mEq Cap-ER 20 mEq = 2 cap(s), Oral, Daily, # 60 cap(s), Refills(s) 0, [id number], 149, cm, 06/23/25 19:50:00 EDT, Height/Length Dosing, 62.2, kg, 06/23/25 19:50:00 EDT, Weight Dosing Start Date: 06/25/25 Status: Ordered Quantity: 60.0 Unit: cap(s) Repeat number: 11 ml triamcinolone acetonide 40 mg/ml injection (1 source)CorticosteroidStart: 03-30-2023 End: 25-84-5256amlbiknjqgnqt acetonide 40 mg injection (KeNALog 40)Start: 03-30-2023 End: 31-77-0145lygmxalvfuqoh acetonide 40 mg injection (KeNALog 40) Problems Active Problems Problem ClassificationProblemDateDocumented DateEpisodic/ChronicAdjustment disorders (5 sources)Family tension; Translations: [Reaction to severe stress, unspecified]Onset: 154795-23-4542LgjapghJmqhabz disorders (20 sources)Posttraumatic stress disorder; Translations: [Mixed anxiety and depressive disorder]Onset: 065222-69-2560QhiqppxVsjzmb (20 sources)Asthma; Translations: [Unspecified asthma, uncomplicated]Onset: 328876-05-0939GjykgkgSbfxgqjid infection; unspecified site (20 sources)Staphylococcal infectious onffoin87-21-4638LptoprbpSgvsssj dysrhythmias (5 sources)Supraventricular tachycardia; Translations: [SVT (supraventricular tachycardia)]Onset: 525638-25-5483XptwvwsOewfhfg obstructive pulmonary disease and bronchiectasis (5 sources)Chronic obstructive lung disease; Translations: [Chronic obstructive pulmonary disease, unspecified]Onset: 847784-29-0486EhyrnawCtbrhfqbi of lipid metabolism (3 sources)Phggrajhvbjgma99-92-3057WegknihAvglvnmibflxe (20 sources)Endometriosis (clinical)78-58-2406QwfhtnxDokkvqljpa disorders (20 sources)Gastroesophageal reflux disease; Translations: [Peptic stricture of esophagus]Onset: 508838-23-3880NqlrfdpJzseuuowi hypertension (20 sources)Hypertensive disorder; Translations: [Essential hypertension]Onset: 063210-52-5986HebilvqZmgrm and electrolyte disorders (4 sources)Hypokalemia; Translations: [Hypokalemia]Onset: 36-72-9994Kftmwpzx Fracture of upper limb (1 source)Closed fracture of shaft of humerus; Translations: [Unspecified fracture of shaft of humerus, left arm, initial encounter for closed fracture] Onset: 48-22-9361QwfihvpbPlnxavuc; including migraine (12 sources)Chronic post-traumatic headache; Translations: [Chronic post- traumatic headache, not intractable]Onset: hronic Hypertension with complications and secondary hypertension (2 sources)Hypertensive heart disease without heart failure; Translations: [Hypertensive heart disease withoutheart failure]Onset: 01-47-3362Jdnwcvb Intestinal infection (6 sources)Clostridial enteric disease; Translations: [Enterocolitis due to Clostridium difficile, not specified as recurrent]Onset: 73-58-7810Nbqiofkn Menopausal disorders (1 source)Primary ovarian failure; Translations: [Other primary ovarian failure] Onset: 78-89-4442IqqsqixYwzm disorders (20 sources)Bipolar I disorder; Translations: [Major depression, single episode] Onset: 478725-40-0472UwecpuwCosyuq and vomiting (2 sources)Nausea; Translations: [Nausea]EpisodicOsteoarthritis (15 sources)Localized, primary osteoarthritis of the shoulder region; Translations: [Primary osteoarthritis, right shoulder]Onset: 81-36-1847Veniloh Osteoporosis (2 sources)Osteoporosis; Translations: [Age-related osteoporosis without current pathological fracture]ChronicOther acquired deformities (20 sources)Scoliosis deformity of spine; Translations: [Scoliosis, unspecified] Onset: 379422-41-6657MtvgjxdQkpba acquired deformities (17 sources)Scoliosis of thoracic spine; Translations: [Other forms of scoliosis, thoracic region]Onset: 03-75-1345YqelitiInjuz bone disease and musculoskeletal deformities (5 sources)Aseptic necrosis of head of humerus; 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]Onset: 22-08-6409ZqodlzwNbjae bone disease and musculoskeletal deformities (1 source)Idiopathic aseptic necrosis of right humerus; 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)]Onset: 73-72-3554UevycdtMicdp bone disease and musculoskeletal deformities (6 sources)Avascular necrosis of the head of humerus; 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]Onset: 970047-82-6549KhxdcfiVpftu bone disease and musculoskeletal deformities (5 sources)Idiopathic kyphoscoliosis; Translations: [Other idiopathic scoliosis, site unspecified]Onset: 399294-84-5912MyiwsstJdxfy connective tissue disease (1 source)Pain in right lower limb; Translations: [Pain in right leg]Onset: 34-37-7702KpodgvqvCkxcd connective tissue disease (1 source)Partial thickness rotator cuff tear; Translations: [Incomplete rotator cuff tear or rupture of right shoulder, not specified as traumatic]Episodic Other connective tissue disease (1 source)Biceps tendinitis; Translations: [Bicipital tendinitis, right shoulder]EpisodicOther connective tissue disease (5 sources)Unspecified symptoms and signs involving the nervous system; Translations: [R29.90]Onset: 97-57-2206RazzsevwAfxmk disorders of stomach and duodenum (2 sources)Gastroparesis syndrome; Translations: [Gastroparesis]EpisodicOther fractures (1 source)Closed fracture of one rib; Translations: [Fracture of one rib, unspecified side, initial encounterfor closed fracture]Onset: 16-37-4682Arhobhtf Other gastrointestinal disorders (2 sources)Irritable bowel syndrome characterized by constipation; Translations: [Irritable bowel syndrome with constipation]ChronicOther gastrointestinal disorders (2 sources)Irritable bowel syndrome with diarrhea; Translations: [Irritable bowel syndrome with diarrhea]ChronicOther gastrointestinal disorders (1 source)Irritable bowel syndrome with diarrheaOnset: 05-04-2022 Resolved: 84-70-0071SfmltwaUruys gastrointestinal disorders (16 sources)Irritable bowel qznwjfde02-52-7057JlnnumnOctcz gastrointestinal disorders (3 sources)Constipation; Translations: [Constipation, unspecified]12-21-2024 EpisodicOther gastrointestinal disorders (2 sources)Heartburn; Translations: [Heartburn]EpisodicOther gastrointestinal disorders (3 sources)Diarrhea; Translations: [Diarrhea, unspecified]Onset: 05-27-2025 EpisodicOther gastrointestinal disorders (2 sources)Esophageal dysphagia; Translations: [Dysphagia, pharyngoesophageal phase]EpisodicOther gastrointestinal disorders (1 source)Constipation, unspecified; Translations: [Constipation, unspecified] Onset: 93-37-8141BebijpxkZudjg nervous system disorders (5 sources)Difficulty walking; Translations: [Difficulty in walking, not elsewhere classified]Onset: 544254-81-1830VpgryhcFtnng nervous system disorders (5 sources)Neuropathy; Translations: [Polyneuropathy, unspecified]Onset: 053552-13-8686JfidoglQscjv nervous system disorders (1 source)Allodynia; Translations: [Other disturbances of skin sensation] EpisodicOther nutritional; endocrine; and metabolic disorders (2 sources)Loss of appetite; Translations: [Anorexia]EpisodicOther nutritional; endocrine; and metabolic disorders (14 sources)Overweight in adulthood with body mass index of 25 or more but less than 30; Translations: [Body mass index (BMI) 28.0-28.9, adult]Onset: 02-27-2025 EpisodicOther nutritional; endocrine; and metabolic disorders (7 sources)Overweight; Translations: [Overweight]Onset: 41-94-3863MdcmavfePhtlq screening for suspected conditions (not mental disorders or infectious disease) (5 sources)Abnormal findings on diagnostic imaging of heart and coronary circulation; Translations: [Encounterfor screening mammogram for malignant neoplasm of breast]Onset: 24-51-3175FyfpwgflOpckgpyjxy and visceral atherosclerosis (6 sources)Peripheral vascular disease, unspecified; Translations: [Peripheral vascular disease, unspecified]Onset: 76-92-3017LqfezgdSgqdvatl codes; unclassified (2 sources)Pain; Translations: [Pain, unspecified]EpisodicResidual codes; unclassified (1 source)Pain, unspecified; Translations: [Pain]Onset: 15-71-8903Ffbwglwk Residual codes; unclassified (1 source)Sleep disorder; Translations: [Sleep disorder, unspecified]Onset: 07-22-3751IwxdtnyyPpsmytgy codes; unclassified (2 sources)Tobacco xcpt41-04-8916QdnixqfaAneeakoos-htljplj disorders (20 sources)Smoker; Translations: [Nicotine dependence]Onset: 04-19-2021 26-36-9369RpdiezdUhppuhh on above:Added secondary to documentation in Social History.Superficial injury; contusion (2 sources)Contusion of left lesser toe; Translations: [Contusion of left lesser toe(s) without damage to nail, initial encounter]Onset: 47-33-9550Hcqamxgd Past or Other Problems Problem ClassificationProblemDateDocumented DateEpisodic/ChronicAbdominal hernia (12 sources)Incisional hernia; Translations: [Incisional hernia without obstruction or gangrene]Onset: 11-53-0120QpzsvhgbFhzszucic pain (20 sources)Upper abdominal pain; Translations: [Upper abdominal pain, unspecified]Onset: 04-16-2021 Resolved: 08-44-9012TzpsxozaNqekthcd reactions (7 sources)Environmental allergy; Translations: [Other allergy status, other than to drugs and biological substances]Onset: 754385-25-0578Eihcmudu Cardiac dysrhythmias (14 sources)Tachycardia; Translations: [Tachycardia, unspecified]Onset: 008780-81-8033PmhjlwbnI Codes: Natural/environment (1 source)Exposure to other specified factors, initial encounter; Translations: [EXPOSURE OTHER SPEC FACTORS INITIAL]Onset: 93-75-4083KatzauucBitmwbyj of lower limb (8 sources)Closed trimalleolar fracture; Translations: [Displaced trimalleolar fracture of left lower leg, initial encounter for closed fracture]Onset: 94-98-2230SxigfazvNdckkmofclmal and screening for infectious disease (1 source)Encounter for immunization; Translations: [ENCOUNTER FOR IMMUNIZATION] Onset: 68-01-7643AxpashyxKcbi wounds of extremities (4 sources)Laceration without foreign body of right thumb without damage to nail, initial encounter; Translations: [LAC NO FB RT THUMB NO DMG NAIL INIT] Onset: 76-30-0466MqwrqtfzFcyxw aftercare (1 source)Other prison (current) drug therapy; Translations: [OTH HOSPICE CLINICAL SUPERVISOR CURRENT DRUG THERAPY]Onset: 18-96-7536KhvrooohKlwjj aftercare (4 sources)Encounter for change or removal of surgical wound dressing; Translations: [ENC CHG/REMOVAL SURG WOUND DRSG]Onset: 93-11-2980HgtvyxigObcsj connective tissue disease (4 sources)Pain in leg, unspecified; Translations: [PAIN IN LEG UNSPECIFIED] Onset: 37-32-3120QhsflyoeDpbgi connective tissue disease (5 sources)H/O: arthrodesis; Translations: [Arthrodesis status]Onset: 03-12-2004 27-56-2535ZhqjgpqsPtyck gastrointestinal disorders (7 sources)Dysphagia; Translations: [Dysphagia, unspecified]Onset: 02-13-2023 18-53-2373BeltqhhuDnbyg gastrointestinal disorders (2 sources)Diarrhea, unspecified; Translations: [DIARRHEA UNSPECIFIED]Onset: 05-04-2022 Resolved: 19-01-7355CrvobylbSpeds gastrointestinal disorders (2 sources)Abdominal distension (gaseous); Translations: [ABDOMINAL DISTENSION GASEOUS]Onset: 05-04-2022 Resolved: 37-31-1962ZqnvjrzqDadkz nervous system disorders (5 sources)Paresthesia; Translations: [Paresthesia of skin]Onset: 02-13-2023 28-59-7630OztgoyhsSyzxh non-traumatic joint disorders (5 sources)Hip pain; Translations: [Pain in unspecified hip]Onset: 02-13-2023 32-45-7825TtcgyxtdKsjqonrm codes; unclassified (7 sources)Uterus absent; Translations: [Acquired absence of both cervix and uterus]Onset: 299632-62-8292OpwzrgkrApsbsgmg codes; unclassified (10 sources)Postoperative state; Translations: [Other specified postprocedural states]Onset: 621539-08-4858SwzppvarYrqtetnq codes; unclassified (5 sources)Acquired absence of cervix and uterus; Translations: [Acquired absence of both cervix and uterus]Onset: 424169-46-6594RpqoocamCoefvkxc codes; unclassified (5 sources)Inadequate sleep hygiene; Translations: [Inadequate sleep hygiene] Onset: 748011-17-4376VkqqtvmzIwpo and subcutaneous tissue infections (10 sources)Cellulitis; Translations: [Cellulitis, unspecified]Onset: 11-13-2015 04-56-6293XtccpznxMrwkxbgnxwu; intervertebral disc disorders; other back problems (7 sources)Sciatica; Translations: [Sciatica, unspecified side]Onset: 03-12-2004 11-41-7466DtnkojupNklitku and strains (2 sources)Sprain of foot; Translations: [Unspecified sprain of unspecified foot, initial encounter]Onset: 72-57-4706Wzqkzfen Results Test NameValueInterpretationReference RangeFacilityPulmonology Office/Clinic Noteon 59-48-8923Farfxrvohky Office/Clinic NotePulmonology Office/Clinic Note Chief Complaint New [...] down as well 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 She does also report dyspnea with exertion [...] to change: No. Household (more content not included)...[facility] CenterComment on above:Result Comment: Electronically Signed By: Vesna Mckay MD\.br\Date and Time Signed: 07/31/25 10:23 ILANT[employer] TechnologiesApparcando 24-66-7692PgezcdccdfCommunity Health Thoora Case Information Case Priority: None Programs: -- Referral Source: Customs Compliance Manager Referral Reason: Care coordination Case Type: Transition [...] no needs or concerns. She did call [employer] since she has not heard anything about her sleep study and was told they did not receive it and she asked the number to fax it to and was told [phone]. I did refax the information to number [...] case summary note Created By: Jacinda Tomlinson RNSelect [facility] Special[facility] Office/Clinic Noteon 29-04-1159Fumxxn Medicine Office/Clinic NoteFabenjamin [facility] Medicine Office/Clinic Note Chief Complaint 1 month follow up/Hospital follow up HPI Staff Patient presents for 1 month f/u Patient is here for follow up on hypertension. -Patient was switched to Atenolol 25 mg. -Patient is scheduled with [facility] Cardiology on 07/31/25. How often are you checking your blood pressure? Doesnt check BP at home Do you have any of the following symptoms? Chest Pain? no Palpitations? no DIAZ/SOB? no Headache? no Peripheral Edema? no Light Headedness? no ER/Hospital followup: Hospital: [facility] Visit date: 06/20-06/21, then 06/23-06/24 Symptoms the patient presented with: Stroke like symptoms. States they took her off the HCTZ. Julienne: 07/02/25 Dexa: 07/02/25 Pap: Hx of hysterectomy [place]: [place] [facility] [place] History of Present Illness Patient presents today for 4 week followup. - High anxiety - follows with Dr. 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 - increased Xanax to 1mg TID Today, [...] and reduces the health (more content not included)...[facility] CenterComment on above:Result Comment: Electronically Signed By: German Sheehan DO\.br\Date and Time Signed: 07/13/25 07:02 EDTAmbulatory Visit Summaryon 79-65-8931Ltnvazjfeh Visit Summary Ambulatory Visit Summary NATHANIEL MARCIAL [...] PM EST With: German Sheehan DO Where: [facility] [address] [place] [address]- Monday2025 9:30 AM EDT With: Where: [facility] [address] [place] [address]- Medications What How Much When Why Instructions Changed metoprolol (metoprolol succinate 25 mg ER Tab) 1 Tablets By Mouth Every day Take with 50mg XR metoprolol for total of 75mg XR daily Pickup at [facility]/pharmacy #[id number] Changed metoprolol (Toprol XL 100 mg Tab-ER) [...] Milligram By Mouth At bedtime Pharmacy Information [facility]/pharmacy #[id number]: [address] [place], [place] [address] [phone] Allergies hydroCHLOROthiazide (Hyponatremia) LaMICtal (Unknown) Tape (rash) [...] signed up for this yet, please contact [employer] at [phone] to get signed up today. Language Information Language assistance services are available as needed. [facility] Orthopedic CenterBD Bone Density DEXAon 93-26-8562DQ Bone Density DEXAExam Date/Time: 07/02/2025 14:58 EDT [...] Kevin Ayers MD Transcribed by: CARISA Technologist: [facility] Mamm Screen w/CAD if perf and 3D Bilon 89-18-7056JF Mamm Screen w/CAD if perf and 3D [...] VERY IMPORTANT TO YOUR HEALTH. THE CURRENT [employer] [...] BI-RADS Category 2-Benign finding Recommendation: Normal interval follow-upNormalLutheran HospitalPath. Reviewon 84-98-1302Qtgo ReviewNo increase of reticulocytes or schistocytes. Occasional hypersegmented granulocytes noted. Clinical correlation and folate/B12 level may be considered as clinically indicated.Invalid Interpretation [facility] CampusComment on above:Performed By: #### [id number] #### [facility] [address], [place] [address]Diez. ReviewPath Review No increase of reticulocytes or schistocytes. Occasional hypersegmented granulocytes noted. Clinical correlation and folate/B12 level may be considered as clinically indicated. D64.9 CPT [address]Vdf[address] CampusAmmoniaon 38-40-4881Lfnsipb05 efhpaVvux29-31KtmypwLutheran HospitalComment on above: Performed By: #### [id number] #### [facility] [address], [place] [address]NQK w/ Auto Diffon 58-75-5598Mlkugvaw Abs Man0.1 E9/LNormal 0.0-0.2Fisher [facility]itan HospitalComment on above:Performed By: #### [id number] #### [facility] [address], [place] [address]Scacipboc/100 WBC (Bld)1.0 %Normal0.0-2.0Lutheran HospitalComment on above:Performed By: #### [id number] #### [facility] [address], [place] [address]Qjx Abs Man0.1 E9/LNormal0.0-0.5FProtestant Hospital Comment on above:Performed By: #### [id number] #### [facility] [address], [place] [address]Eooeyxeyhpe/100 WBC (Bld)1.0 %Normal0.0-8.0Lutheran HospitalComment on above:Performed By: #### [id number] #### [facility] [address] [place] [address]Vuaapaelnxt distribution width (RBC) [Ratio]14.3 %High10.9-14.2 Lutheran HospitalComment on above:Performed By: #### [id number] #### [facility] [address] [place] [address]Yfcbrwdwld (Bld) [Volume fraction]42.5 %Ajmdak02.0-46.0Lutheran HospitalComment on above:Performed By: #### [id number] #### [facility] [address] [place] [address]Lgyti Abs Man3.5 E9/LNormal1.0-4.0[facility] Comment on above:Performed By: #### [id number] #### [facility] [address], [place] [address]Msynamhkpxi/100 WBC (Bld)22.0 %Oschoy82.0-50.0Lutheran HospitalComment on above:Performed By: #### [id number] #### [facility] [address], [place] [address]KEA (RBC) [Entitic mass]36.0 hoSkgv29.0-34.0Lutheran HospitalComment on above:Performed By: #### [id number] #### [facility] [address], [place] [address]UEUH (RBC) [Mass/Vol]34.6 g/fRRxmzcp96.4-36.0Lutheran HospitalComment on above:Performed By: #### [id number] #### [facility] [address], [place] [address]KIJ (RBC) [Entitic vol]104.2 sYUblj85.0-100.0Lutheran HospitalComment on above:Performed By: #### [id number] #### [facility] [address], [place] [address]Ilte Abs Man0.2 E9/LNormal0.2-1.0[facility] Comment on above:Performed By: #### [id number] #### [facility] [address] [place] [address]Hxgjakomh/100 WBC (Bld)3.0 %Low4.0-14.0Lutheran HospitalComment on above:Performed By: #### [id number] #### [facility] [address], [place] [address]Mizmhe Abs Man3.6 E9/LInvalid Interpretation [facility] CampusComment on above:Performed By: #### [id number] #### [facility] [address] [place], [place] [address]Gonrgrxt mean volume (Bld) [Entitic vol]7.0 fLNormal6.4-10.8 Lutheran HospitalComment on above:Performed By: #### [id number] #### [facility] [address], [place] [address]XTC4.1 E12/LLow4.3-5.9Lutheran HospitalComment on above:Performed By: #### [id number] #### [facility] [address] [place], [place] [address]CNP morphology finding Nom (Bld)NORMALInvalid Interpretation [facility] CampusComment on above:Performed By: #### [id number] #### [place] [facility] [address], [place] [address]Yhxxa Lymph Man25.0 %High0.0-0.0[facility] Comment on above:Performed By: #### [id number] #### [place] [facility] [address], [place] [address]Nohg Man48.0 %Bqatxg38.0-75.0Lutheran HospitalComment on above:Performed By: #### [id number] #### [facility] [address], [place] [address]DCN7.5 E9/LNormal4.0-11.0Lutheran HospitalComment on above:Performed By: #### [id number] #### [facility] [address], [place] [address]Zkhwrtbvxe (Bld) [Mass/Vol]14.7 g/hMCjervt70.0-16.0Lutheran HospitalComment on above:Performed By: #### [id number] #### [facility] [address], [place] [address]Dxatleke969.0 E9/STdmjyr951.0-500.0[facility] Comment on above:Performed By: #### [id number] #### [facility] [address], [place] [address]XTNpw 07-25-7562Neuoncy [Mass/Vol]4.4 g/dLNormal3.3-5.0Lutheran HospitalComment on above:Performed By: #### [id number] #### [facility] [address], [place] [address]Vwsjkqn/Globulin [Mass ratio]1.4 {ratio}Normal1.1-2.2FProtestant HospitalComment on above:Performed By: #### [id number] #### [facility] [address], [place] [address]Ajh Phos96 Int._Unit/MTnvmnm88-41UfrdxfLutheran Hospital Comment on above:Performed By: #### [id number] #### [facility] [address], [place] [address]WVK65 Int._Unit/LNormal6-46Lutheran HospitalComment on above:Performed By: #### [id number] #### [facility] [address], [place] [address]Sjaov gap [Moles/Vol]11 mmol/LNormal6-16Lutheran HospitalComment on above:Performed By: #### [id number] #### [facility] [address], [place] [address]PUE98 Int._Unit/LNormal5-43Lutheran HospitalComment on above:Performed By: #### [id number] #### [facility] [address], [place] [address]Zzjc Total0.5 mg/dLNormal0.0-1.1FProtestant Hospital Comment on above:Performed By: #### [id number] #### [facility] [address], [place] [address]MVL/Creat Ratio11 No MirrfYqpxwd46-12DpqqntLutheran HospitalComment on above:Performed By: #### [id number] #### [facility] [address], [place] [address]Lbfotqj [Mass/Vol]9.7 mg/dLNormal8.9-11.1FProtestant HospitalComment on above:Performed By: #### [id number] #### [facility] [address], [place] [address]Ujyfakfq [Moles/Vol]108 mmol/QQmtihg155-099JjpdasLutheran HospitalComment on above:Performed By: #### [id number] #### [facility] [address], [place] [address]UI6 [Moles/Vol]25 mmol/XEnpyzf30-46AvkcwsLutheran Hospital Comment on above:Performed By: #### [id number] #### [facility] [address], [place] [address]Mdcuvgocra [Mass/Vol]0.7 mg/dLNormal0.5-1.3FProtestant HospitalComment on above:Performed By: #### [id number] #### [facility] [address], [place] [address]Wadykcpw (S) [Mass/Vol]3.1 g/dLNormal1.4-4.0Lutheran HospitalComment on above:Performed By: #### [id number] #### [facility] [address], [place] [address]Ymcecud [Mass/Vol]95 mg/tXAifies38-397KwajptLutheran HospitalComment on above:Performed By: #### [id number] #### [facility] [address], [place] [address]Vmtukmmam [Moles/Vol]4.4 mmol/LNormal3.5-5.3FProtestant HospitalComment on above:Performed By: #### [id number] #### [facility] [address], [place] [address]Edsokew [Mass/Vol]7.5 g/dLNormal6.0-7.8Lutheran HospitalComment on above:Performed By: #### [id number] #### [facility] [address], [place] [address]Idjahu [Moles/Vol]140 mmol/AZtibjf316-407ZovixmLutheran HospitalComment on above:Performed By: #### [id number] #### [facility] [address], [place] [address]Kkri nitrogen [Mass/Vol]8 mg/dLNormal5-21Lutheran HospitalComment on above:Performed By: #### [id number] #### [facility] [address], [place] [address]Onzbog Medicine Office/Clinic Noteon 80-35-0746Fezsbs Medicine Office/Clinic NoteFami Medicine Office/Clinic Note Chief Complaint ER F/U adamant that she hasve a STAT K+ lab drawn for results today HPI Staff ER followup: Hospital: [facility] Visit date: 06/23-06/25 Symptoms the patient presented [...] anxiety, # 90 tab(s), Refills(s) 1, Pharmacy: [facility] #[id number], 149.8, cm, 06/27/25 9:26:00 EDT, Height/Length Dosing, 58.8, kg, 06/27/25 9:26:00 EDT, Weight Dosing 2. Low blood potassium, (E87.6: Hypokalemia)Low blood potassium continue potassium supplement of 20meq daily stat labs today fu 1 m Ordered: potassium chloride, 20 mEq = 1 tab(s), Oral, Daily, # 30 tab(s), Refills(s) 11, Pharmacy: [facility] #[id number], 149.8, cm, 06/27/25 9:26:00 EDT, Height/Length [...] # 90 tab(s), Ref (more content not included)...NormalLutheran HospitalComment on above:Result Comment: Electronically Signed By: EUGENIA LINCOLN\.br\Date and Time Signed: 06/27/25 10:37 MEJCegG3rkt 59-10-7178JwZ6w (Bld) [Mass fraction]5.2 %Normal<=5.9 Lutheran HospitalComment on above:Performed By: #### [id number] #### [facility] [address], [place] [address]Ujirwo 65-78-7828Rgru69 microgram/zDEqngzc03-800XppxdiLutheran HospitalComment on above:Performed By: #### [id number] #### [facility] [address], [place] [address]Jrzezhnqnk Healthon 08-72-1258TodmnpfhmiFormerly [facility] Health Case Information Case Priority: None Programs: -- Referral Source: Customs Compliance Manager Referral Reason: Care coordination Case Type: Transition [...] it sent to D (more content not included)...NormalLutheran HospitalTS With T4fr Reflexon 14-72-1694KLI Qn1.68 m[IU]/LNormal0.34-5.60Lutheran HospitalComment on above:Performed By: #### [id number] #### [facility] [address], [place] [address]Zqc B12on 72-20-0429Ynqixlssb (Vitamin B12) [Mass/Vol]258 pg/mL Pxinqq24-1302ZlmjveLutheran HospitalComment on above:Performed By: #### [id number] #### [facility] [address], [place] [address]Nizwwiu D 25 Hydroxyon 52-35-8057Mdfdjcu D 25 Wjhidlc80.9 ng/mL Low30.0-100.0Lutheran HospitalComment on above:Performed By: #### [id number] #### [facility] [address], [place] [address]vESFgl 14-79-9961pFOP539 mL/min/1.73 h9Znbgec>=59Lutheran HospitalComment on above:Performed By: #### [id number] #### [facility] [address], [place] [address]PDGrx 92-56-1134Wrytj gap [Moles/Vol]10 mmol/LNormal6-16Lutheran HospitalComment on above:Performed By: #### [id number] #### [facility] [address], [place] [address]GZR/Creat Ratio13 No VkbypNwhptj45-91OdbgicLutheran HospitalComment on above:Performed By: #### [id number] #### [facility] [address], [place] [address]Fgxqstp [Mass/Vol]9.2 mg/dLNormal8.9-11.1FProtestant HospitalComment on above:Performed By: #### [id number] #### [facility] [address], [place] [address]Khwummst [Moles/Vol]105 mmol/GBzarui944-391FdwrolLutheran HospitalComment on above:Performed By: #### [id number] #### [facility] [address], [place] [address]XQ9 [Moles/Vol]26 mmol/FMpsrvo24-82RabzroLutheran Hospital Comment on above:Performed By: #### [id number] #### [facility] [address], [place] [address]Kyxzgnzcli [Mass/Vol]0.7 mg/dLNormal0.5-1.3FProtestant HospitalComment on above:Performed By: #### [id number] #### [facility] [address], [place] [address]Qjjrnrz [Mass/Vol]110 mg/nEMkwcvm75-776LcxxhbLutheran HospitalComment on above:Performed By: #### [id number] #### [facility] [address], [place] [address]Ugyxoesos [Moles/Vol]3.4 mmol/LLow3.5-5.3FProtestant HospitalComment on above:Performed By: #### [id number] #### [facility] [address], [place] [address]Wzztmd [Moles/Vol]138 mmol/TTfbmso695-953UfjtesLutheran HospitalComment on above:Performed By: #### [id number] #### [facility] [address], [place] [address]Swlo nitrogen [Mass/Vol]9 mg/dLNormal5-21Lutheran HospitalComment on above:Performed By: #### [id number] #### [facility] [address] [place] [address] 218[address]C Urineon 09-50-7532Erkeplku identified Cx Nom (U)Microbiology PROCEDURE: Urine Culture [R1] SOURCE: U CleanCatch BODY SITE: COLLECTED DATE/TIME: 06/23/2025 20:33 EDT RECEIVED DATE/TIME: 06/23/2025 21:02 EDT START DATE/TIME: 06/23/2025 21:02 EDT FREE TEXT SOURCE: Lenard DO, Antonio S. Lenard DO, Antonio S. FINAL REPORTS Final Report [] Verified Date/Time: 06/25/2025 06:52 EDT 700 cfu/ml Mixed skin contaminants Performing Locations R1: This test was performed at: [facility], [address] [place] [address], [address], JxjomiDfuclrKettering Health HamiltonComment on above:Performed By: #### [id number] #### [facility] [address] [place] [address]DUJ w/ Auto Diffon 08-18-7480Lqcqgddt Absolute0.1 E9/LNormal 0.0-0.2FProtestant HospitalComment on above:Performed By: #### [id number] #### [facility] [address] [place] [address]Tddkxhnmx/100 WBC (Bld)1.1 %Normal0.0-2.0Lutheran HospitalComment on above:Performed By: #### [id number] #### [facility] [address] [place] [address]Ynp Absolute0.0 E9/LNormal0.0-0.5FProtestant Hospital Comment on above:Performed By: #### [id number] #### [facility] [address] [place] [address]Lmknjimxjef/100 WBC (Bld)0.4 %Normal0.0-8.0Lutheran HospitalComment on above:Performed By: #### [id number] #### [facility] [address], [place] [address]Uruxamdrvtr distribution width (RBC) [Ratio]14.1 %Normal 10.9-14.2FProtestant HospitalComment on above:Performed By: #### [id number] #### [facility] [address] [place] [address]Fyqxctxbqx (Bld) [Volume fraction]41.8 %Hrinzn68.0-46.0Lutheran HospitalComment on above:Performed By: #### [id number] #### [facility] [address] [place] [address]Ovjcnftabd (Bld) [Mass/Vol]14.5 g/vNAcjagn03.0-16.0Lutheran HospitalComment on above:Performed By: #### [id number] #### [facility] [address] [place] [address]Sowqi Absolute2.7 E9/LNormal1.0-4.0[facility] Comment on above:Performed By: #### [id number] #### [facility] [address] [place] [address]Jjehujtxtzb/100 WBC (Bld)42.9 %Ywvzin12.0-50.0Lutheran HospitalComment on above:Performed By: #### [id number] #### [facility] [address] [place] [address]WJO (RBC) [Entitic mass]36.0 zuCfbm06.0-34.0Lutheran HospitalComment on above:Performed By: #### [id number] #### [facility] [address] [place] [address]JBAT (RBC) [Mass/Vol]34.7 g/wYSrdyie85.4-36.0Lutheran HospitalComment on above:Performed By: #### [id number] #### [facility] [address], [place] [address]CNA (RBC) [Entitic vol]103.9 aJLzeb20.0-100.0Lutheran HospitalComment on above:Performed By: #### [id number] #### [facility] [address], [place] [address]Ecex Absolute0.4 E9/LNormal0.2-1.0[facility] Comment on above:Performed By: #### [id number] #### [facility] [address], [place] [address]Xzgdcwdmx/100 WBC (Bld)6.3 %Normal4.0-14.0Lutheran HospitalComment on above:Performed By: #### [id number] #### [facility] [address] [place] [address]Uqavoi Absolute3.1 E9/LNormal2.0-7.5FProtestant Hospital Comment on above:Performed By: #### [id number] #### [facility] [address] [place] [address]Gcypkw Auto49.3 %Pbhcnl11.0-75.0[facility] Comment on above:Performed By: #### [id number] #### [facility] [address] [place] [address]Thoajgpq200.0 E9/MGwduoo835.0-500.0[facility] Comment on above:Performed By: #### [id number] #### [facility] [address], [place] [address]Octzqiuk mean volume (Bld) [Entitic vol]7.0 fLNormal6.4-10.8 Lutheran HospitalComment on above:Performed By: #### [id number] #### [facility] [address] [place] [address]FWJ8.0 E12/LLow4.3-5.9Lutheran HospitalComment on above:Performed By: #### [id number] #### [facility] [address], [place] [address]OQS1.2 E9/LNormal4.0-11.0[facility] HospitalComment on above:Performed By: #### [id number] #### Carlos [facility] [address], [place] [address]Hrgiecogl Note-Nursingon 57-87-9201Iqlnjrawb Note-Nursing Discharge Note-Nursing NATHANIEL MARCIAL :1975 Visit [...] AM EDT With: German Sheehan DO Where: [facility] [address] [place] [address]- [id number] 9:30 AM EDT With: Where: [place] [address] [place] [address]- New Follow Up Appointments after Discharge Follow Up with German Sheehan When: 07/11/2025 11:20 AM EDT Comments: Keep scheduled appointment Where: [address] [address]- Business (1) [place] [facility] [place] 1 [place] Comments: Order for BMP to be done within 1 week to re-check potassium level Where: Follow Up with Neurology When: Within 2 to 4 weeks Comments: Call [phone] for follow up appt - An appt. [...] 1 Patches Transdermal Every day Pickup at [facility]/pharmacy #0713 10 am Changed potassium chloride (potassium chloride 10 mEq Cap-ER) 2 Capsules By Mouth Every day Increased dose of KCl supplement- recommend following up with PCP within 1 week for K+ recheck Pickup at [facility]/pharmacy #[id number] 10/2 am Unchanged acetaminophen (acetaminophen 325 mg [...] day 30 minutes p (more content not included)...[facility] 93-57-4895PPWHSS CLINICAL HISTORY: Recurrent episodes spreading paresthesias from [...] be suggestive of an increased risk of seizure.[facility] CenterComment on above:Result Comment: Electronically Signed By: German Luciano DO\.br\Date and Time Signed: 06/25/25 08:46 EDTInpatient Clinical Summaryon 48-34-1328Vxxseebpf Clinical SummaryInpatient Clinical Summary [address] [address] Clinical Summary Person Information: Name: NATHANIEL MARCIAL Age: 49 Years : 1975 Sex: Female PCP: German Sheehan DO Marital Status: Phone: [phone] Race: White Ethnicity: Non- or Language: Ugandan Visit Id: Visit Reason: STROKE SYMPTOMS Speciality: Acuity: Enc Type: Observation Med Service: Medical Arrival: 06/23/2025 19:45:01 Discharge: Dispo Type: Admitted as IP to this Hosp Address: [address] [place] [address] RACHELE Doran [facility] [id number] Provider Notes: Diagnosis: 1:Stroke-like symptoms; 2:Macrocytosis; 3:Hypokalemia; [...] Follow up: With: Address: When: [facility] [address] [place], [place] [id number] [facility] (1) 07/11/2025 11:20 AM Comments: Keep scheduled appointment With: Address: When[place] [facility] [place] 1 [place] Comments: Order for BMP to be done within 1 week to re-check potassium level With: Address: When: Neurology Within 2 to 4 weeks Comments: Call [phone] for follow up appt - An appt. request with your contact information is faxed to this office. They will call you for a follow up appt. If you do not hear from them in a few days, then please call the office. Thank you. Type Location Start [facility] [place] Screen (FT) FT.MAMMOGRAM 07/02/2025 2:15 PM 07/02/2025 2:30 PM Confirmed BD Bone Density (FT) FT.BD 07/02/2025 2:30 PM 07/02/2025 3:00 PM Confirmed FM Open [facility] 07/11/2025 11:20 AM 07/11/2025 11:40 AM Confirmed FM Medicare Wellness Subsequent [facility] 05/20/2026 9:30 AM 05/20/2026 10:30 AM Confirmed Patient Education Information: Steps to Quit Smoking; Potassium Content of Foods; Sleep Apnea; Smoking Tobacco Information, Adult;Core Measures: Stroke (Cerebrovascular Accident) [facility], ([facility] CenterInpatient Patient Summaryon 06-25-2025 Inpatient Patient SummaryInpatient Patient Summary [place] [address] Patient Discharge Instructions PERSON INFORMATION Name: NATHANIEL [...] With: Address: When: [facility] [address] [place] [address] [facility] (1) 07/11/2025 11:20 AM Comments: Keep scheduled appointment With: Address: When: Lab, [place] Within 1 week Comments: Order for BMP to be done within 1 week to re-check potassium level With: Address: When: Neurology Within 2 to 4 weeks Comments: Call [phone] for follow up appt - An appt. [...] PM 07/02/2025 3:00 PM Confirmed FM Open [facility] 07/11/2025 11:20 AM 07/11/2025 11:40 AM Confirmed FM Medicare Wellness Subsequent [facility] 05/20/2026 9:30 AM 05/20/2026 10:30 AM Confirmed Comment: ANIKET Pace SHANNON K, have received the attached patient education materials/instructions and have verbalized understanding: Patient Signature Date Clinican/Nurse Signature Date HERE ARE THE MEDICATION CHANGES THAT OCCURRED DURING YOUR HOSPITAL STAY New Medications [id number], [address] [place], [place] [phone], [phone] nicotine (nicotine 7 mg/24 hr Transderm ER Film) 1 Patches Transdermal every day. Refills: 0. Last Dose: Next Dose: Medications to Continue Taking That Have Changed [id number], [address] [place], [place] [phone], [phone] START: potassium chloride (potassium chloride 10 mEq [...] Dose: Next Dose: (more content not included)... NormalLutheran HospitalProgress Note-Physicianon 29-68-9652Trwupask Note-PhysicianProgress Note-PhysicianNormalLutheran HospitalComment on above:Result Comment: Electronically Signed By: Pepper MCDOWELL, Romina 78-30-4321bOCG723 mL/min/1.73 n2Brzxgh>=59Lutheran HospitalComment on above:Performed By: #### [id number] #### [facility] [address] [place], [place] [address]GVRco 37-19-9281Ricpb gap [Moles/Vol]8 mmol/LNormal6-16Lutheran HospitalComment on above:Performed By: #### [id number] #### [facility] [address] [place] [address]OHG/Creat Ratio16 No VdfplKzbxas05-33VipmivLutheran HospitalComment on above:Performed By: #### [id number] #### [facility] [address], [place] [address]Tpijymv [Mass/Vol]9.2 mg/dLNormal8.9-11.1FProtestant HospitalComment on above:Performed By: #### [id number] #### [facility] [address], [place] [address]Kqjmooec [Moles/Vol]106 mmol/KJgfynu163-009UmdgsmLutheran HospitalComment on above:Performed By: #### [id number] #### [facility] [address], [place] [address]XC0 [Moles/Vol]29 mmol/EJnymsu53-81OfwuqjLutheran Hospital Comment on above:Performed By: #### [id number] #### [facility] [address], [place] [address]Uumwicqtjk [Mass/Vol]0.7 mg/dLNormal0.5-1.3FProtestant HospitalComment on above:Performed By: #### [id number] #### [facility] [address], [place] [address]Gxximmp [Mass/Vol]99 mg/tUOofsoh77-631DhodkdLutheran HospitalComment on above:Performed By: #### [id number] #### [facility] [address], [place] [address]Fzlwskkpl [Moles/Vol]3.8 mmol/LNormal3.5-5.3FProtestant HospitalComment on above:Performed By: #### [id number] #### [facility] [address], [place] [address]Nmzknu [Moles/Vol]139 mmol/FAtrbet666-687KdpptbLutheran HospitalComment on above:Performed By: #### [id number] #### [facility] [address], [place] [address]Ndai nitrogen [Mass/Vol]11 mg/dLNormal5-21Lutheran HospitalComment on above:Performed By: #### [id number] #### [facility] [address] [place] [address]LIJ w/ Auto Diffon 61-52-8765Zxkvaolu Absolute0.1 E9/LNormal 0.0-0.2FProtestant HospitalComment on above:Performed By: #### [id number] #### [facility] [address] [place] [address]Coezcviye/100 WBC (Bld)0.8 %Normal0.0-2.0Lutheran HospitalComment on above:Performed By: #### [id number] #### [facility] [address] [place] [address]32[address]Ilm Absolute0.1 E9/LNormal0.0-0.5FProtestant Hospital Comment on above:Performed By: #### [id number] #### [facility] [address] [place] [address]Nqmlhmvikmo/100 WBC (Bld)0.8 %Normal0.0-8.0Lutheran HospitalComment on above:Performed By: #### [id number] #### [facility] [address] [place] [address] 289[address]Txfyaunubsa distribution width (RBC) [Ratio]14.2 %Normal 10.9-14.2FProtestant HospitalComment on above:Performed By: #### [id number] #### [facility] [address] [place] [address]Imxbwnpkax (Bld) [Volume fraction]39.5 %Qnejyp52.0-46.0Lutheran HospitalComment on above:Performed By: #### [id number] #### [facility] [address] [place] [address]Lfjjqegxao (Bld) [Mass/Vol]13.5 g/yXTxrqpr86.0-16.0Lutheran HospitalComment on above:Performed By: #### [id number] #### [facility] [address] [place] [address] 225[address]Kkcwa Absolute3.1 E9/LNormal1.0-4.0[facility] Comment on above:Performed By: #### [id number] #### [facility] [address] [place] [address] 455[address]Kqfljkuxdoz/100 WBC (Bld)48.0 %Rmioew12.0-50.0Lutheran HospitalComment on above:Performed By: #### [id number] #### [facility] [address] [place] [address]89[address]ICF (RBC) [Entitic mass]34.9 pkQypk59.0-34.0Lutheran HospitalComment on above:Performed By: #### [id number] #### [facility] [address] [place] [address]60[address]GPXS (RBC) [Mass/Vol]34.2 g/jXKwczxq35.4-36.0Lutheran HospitalComment on above:Performed By: #### [id number] #### [facility] [address] [place] [address] 65[address]THI (RBC) [Entitic vol]102.2 uUGfxw74.0-100.0Lutheran HospitalComment on above:Performed By: #### [id number] #### [facility] [address] [place] [address]Gwqj Absolute0.5 E9/LNormal0.2-1.0[facility] Comment on above:Performed By: #### [id number] #### [facility] [address] [place] [address] 47[address]Qulcpbrwx/100 WBC (Bld)7.7 %Normal4.0-14.0Lutheran HospitalComment on above:Performed By: #### [id number] #### [facility] [address] [place] [address]Imiyza Absolute2.7 E9/LNormal2.0-7.5FProtestant Hospital Comment on above:Performed By: #### [id number] #### [facility] [address], [place] [address]Kdaodh Auto42.7 %Xdylxm88.0-75.0[facility] Comment on above:Performed By: #### [id number] #### [facility] [address], [place] [address]Xhdzkmsk785.0 E9/GMnwyee233.0-500.0[facility] Comment on above:Performed By: #### [id number] #### [facility] [address], [place] [address]Kuokzwgy mean volume (Bld) [Entitic vol]7.5 fLNormal6.4-10.8 Lutheran HospitalComment on above:Performed By: #### [id number] #### [facility] [address] [place] [address]WAV5.9 E12/LLow4.3-5.9Lutheran HospitalComment on above:Performed By: #### [id number] #### [facility] [address] [place] [address] 156[address]QBT3.4 E9/LNormal4.0-11.0Lutheran HospitalComment on above:Performed By: #### [id number] #### [facility] [address] [place] [address]OI Head or Brain w/o Contraston 12-08-9624MY Head or Brain w/o ContrastExam Date/Time: 06/23/2025 [...] Meliton Jha M.D. Transcribed by: CARISA Technologist: HolaLutheran HospitalHep Func Panelon 05-89-7061Qnhaxon [Mass/Vol]3.7 g/dLNormal3.3-5.0Lutheran HospitalComment on above:Performed By: #### [id number] #### [facility] [address] [place] [address] 26[address]Ibtahkh/Globulin [Mass ratio]1.4 {ratio}Normal1.1-2.2FProtestant HospitalComment on above:Performed By: #### [id number] #### [facility] [address], [place] [address]Hmv Phos80 Int._Unit/JVepthv48-77GmponyLutheran Hospital Comment on above:Performed By: #### [id number] #### [facility] [address], [place] [address]QZJ19 Int._Unit/LNormal6-46Lutheran HospitalComment on above:Performed By: #### [id number] #### [facility] [address], [place] [address]EZY62 Int._Unit/LNormal5-43Lutheran HospitalComment on above:Performed By: #### [id number] #### [facility] [address], [place] [address]Jpnm Direct0.0 mg/dLNormal0.0-0.4FProtestant Hospital Comment on above:Performed By: #### [id number] #### [facility] [address], [place] [address]Pksq Indirect0.3 mg/dLNormal0.1-0.9[facility] Comment on above:Performed By: #### [id number] #### [facility] [address] [place] [address]Zglx Total0.3 mg/dLNormal0.0-1.1FProtestant Hospital Comment on above:Performed By: #### [id number] #### [facility] [address] [place] [address]Vuasbepv (S) [Mass/Vol]2.7 g/dLNormal1.4-4.0Lutheran HospitalComment on above:Performed By: #### [id number] #### [facility] [address] [place] [address] 32538Udxkuor [Mass/Vol]6.4 g/dLNormal6.0-7.8Lutheran HospitalComment on above:Performed By: #### [id number] #### [facility] [address] [place] [address] 12507Aqirwoehn Clinical Summaryon 85-11-7889Slfpmothj Clinical SummaryInpatient Clinical Summary [address] [address] Clinical Summary Person Information: Name: NATHANIEL MARCIAL Age: 49 Years : 1975 Sex: Female PCP: German Sheehan DO Marital Status: Phone: [phone] Race: White Ethnicity: Non- or Language: Ugandan Visit Id: Visit Reason: Anxiety; Muscle weakness; Potential stroke; STROKE SYMPTOMS Speciality: Acuity: Enc Type: Observation Med Service: Medical Arrival: 06/23/2025 19:45:01 Discharge: Dispo Type: Admitted as IP to this [facility] Address: [address] [place] [address] DR RACHELE M[place]ANDA [place] [id number] Provider Notes: Diagnosis: 1:Stroke-like symptoms; 2:UTI (urinary [...] Follow up: With: Address: When: German Aguila [facility] [address] [place] [address] [facility] (1) 06/25/2025 8:20 AM With: Address: When: Neurology Within 2 to 4 weeks Comments: Call [phone] for follow up appt - An appt. request with your contact information is faxed to this office. They will call you for a follow up appt. If you do not hear from them in a few days, then please call the office. Thank you. Type Location Start [facility] Follow Up w/TCM [facility] 06/25/2025 8:20 AM 06/25/2025 9:00 AM Confirmed MA Screen (FT) FT.MAMMOGRAM 07/02/2025 2:15 PM 07/02/2025 2:30 PM Confirmed BD Bone Density (FT) FT.BD 07/02/2025 2:30 PM 07/02/2025 3:00 PM Confirmed FM Open [facility] 07/11/2025 11:20 AM 07/11/2025 11:40 AM Confirmed Medicare Wellness Subsequent [facility] 05/20/2026 9:30 AM 05/20/2026 10:30 AM Confirmed Patient Education Information: Sleep Apnea; Smoking Tobacco Information, Adult; Core Measures: Stroke (Cerebrovascular Accident) [facility], ([facility] Inpatient Patient Summaryon [id number] Patient SummaryInpatient Patient Summary [address] [address] Patient Discharge Instructions PERSON INFORMATION [...] Follow up: With: Address: When: German Sheehan [address] [place] [address] [facility] (1) 06/25/2025 8:20 AM With: Address: When: Neurology Within 2 to 4 weeks Comments: Call [phone] for follow up appt - An appt. [...] a nearby participating provider. Type Location Start [facility] Follow Up w/TCM [facility] 06/25/2025 8:20 AM 06/25/2025 9:00 AM Confirmed MA Screen (FT) FT.MAMMOGRAM 07/02/2025 2:15 PM 07/02/2025 2:30 PM Confirmed BD Bone Density (FT) FT.BD 07/02/2025 2:30 PM 07/02/2025 3:00 PM Confirmed FM Open [facility] 07/11/2025 11:20 AM 07/11/2025 11:40 AM Confirmed FM Medicare Wellness Subsequent [facility] 05/20/2026 9:30 AM 05/20/2026 10:30 AM [...] By Mouth at bed (more content not included)...[facility] Orth[facility] CenterInterdisciplinary Note - Case Manageron [id number] Note - Case ManagerInterdisciplinary Note - Powder Mill Operator Patient awake, alert and oriented up in bed. No family present. Patient able to participate in dc planning. PCP, DME and insurance information confirmed. PLOF independent with all needs, drives. Patient is from home alone. SS consult for depression screen. Patient reports [place] [facility] [place] and see Dr. Tawnya Bah, psychiatrist. Declined any additional needs. Friend will transport to home. Patient agreeable to paramedicine service. Declines any further dc needs.[facility] Orthopedic CenterComment on above:Result Comment: Electronically Signed By: Sharon Matos\.br\Date and Time Signed: 06/24/25 09:21 EDTVit B12on 13-16-7325Faemverzg (Vitamin B12) [Mass/Vol]224 pg/kOSipeij38-6048GqnpgqLutheran HospitalComment on above:Performed By: #### [id number] #### [facility] [address], [place] [address]RS Chest Single Viewon 50-54-5511KJ Chest Single ViewExam Date/Time: 06/23/2025 20:24 EDT [...] Meliton Jha M.D. Transcribed by: CARISA Technologist: MBSNormalLutheran HospitaleGFRon 73-48-5501iOMQ856 mL/min/1.73 c4Cdqgwh>=59Lutheran HospitalComment on above:Performed By: #### [id number] #### [facility] [address], [place] [address]QW Draw & Holdon 21-87-9393MB D&HSample drawn for Blood Ba NormalLutheran HospitalComment on above:Performed By: #### [id number] #### [facility] [address], [place] [address]UBBsj 98-26-7346Dewvv gap [Moles/Vol]12 mmol/LNormal6-16Lutheran HospitalComment on above:Performed By: #### [id number] #### [facility] [address], [place] [address]WTG/Creat Ratio16 No MckrvYxgern43-65MgcmwfLutheran HospitalComment on above:Performed By: #### [id number] #### [facility] [address], [place] [address]Kflclmr [Mass/Vol]9.6 mg/dLNormal8.9-11.1FProtestant HospitalComment on above:Performed By: #### [id number] #### [facility] [address], [place] [address]Nagymmkf [Moles/Vol]103 mmol/JEehvui688-339VggyltLutheran HospitalComment on above:Performed By: #### [id number] #### [facility] [address], [place] [address]BV0 [Moles/Vol]27 mmol/AXpnbde90-61PkrxijLutheran Hospital Comment on above:Performed By: #### [id number] #### [facility] [address], [place] [address]Obbwjcfeve [Mass/Vol]0.8 mg/dLNormal0.5-1.3FProtestant HospitalComment on above:Performed By: #### [id number] #### [facility] [address], [place] [address]Bxwxsfa [Mass/Vol]98 mg/qDSycpna12-405KxyeqzLutheran HospitalComment on above:Performed By: #### [id number] #### [facility] [address], [place] [address]Eupcqfiwq [Moles/Vol]3.6 mmol/LNormal3.5-5.3FProtestant HospitalComment on above:Performed By: #### [id number] #### [facility] [address], [place] [address]Pvfmav [Moles/Vol]138 mmol/EDkkpdu019-299WcdjynLutheran HospitalComment on above:Performed By: #### [id number] #### [facility] [address] [place] [address]Fxcb nitrogen [Mass/Vol]13 mg/dLNormal5-21Lutheran HospitalComment on above:Performed By: #### [id number] #### [facility] [address], [place] [address]XQY w/ Auto Diffon 93-31-7281Wmugjrqe Absolute0.2 E9/LNormal 0.0-0.2FProtestant HospitalComment on above:Performed By: #### [id number] #### [facility] [address], [place] [address]Xgggatjaq/100 WBC (Bld)1.6 %Normal0.0-2.0Lutheran HospitalComment on above:Performed By: #### [id number] #### [facility] [address], [place] [address]Ukp Absolute0.1 E9/LNormal0.0-0.5FProtestant Hospital Comment on above:Performed By: #### [id number] #### [facility] [address], [place] [address]Hywljigyrhs/100 WBC (Bld)1.1 %Normal0.0-8.0Lutheran HospitalComment on above:Performed By: #### [id number] #### [facility] [address], [place] [address]Fzwmhqxfrwx distribution width (RBC) [Ratio]14.3 %High10.9-14.2 Lutheran HospitalComment on above:Performed By: #### [id number] #### [facility] [address] [place] [address]Wpcxkdwopp (Bld) [Volume fraction]41.7 %Illifn75.0-46.0Lutheran HospitalComment on above:Performed By: #### [id number] #### [facility] [address] [place] [address]Uuotggudvz (Bld) [Mass/Vol]14.5 g/gNLdbhps31.0-16.0Lutheran HospitalComment on above:Performed By: #### [id number] #### [facility] [address] [place] [address]Pikbr Absolute4.6 E9/LHigh1.0-4.0[facility] Comment on above:Performed By: #### [id number] #### [facility] [address], [place] [address]Laktqcmzlnm/100 WBC (Bld)48.5 %Rssqsc26.0-50.0Lutheran HospitalComment on above:Performed By: #### [id number] #### [facility] [address], [place] [address]SNF (RBC) [Entitic mass]36.5 azGcxw24.0-34.0Lutheran HospitalComment on above:Performed By: #### [id number] #### [facility] [address], [place] [address]FSFY (RBC) [Mass/Vol]34.8 g/mLNbgeab15.4-36.0Lutheran HospitalComment on above:Performed By: #### [id number] #### [facility] [address], [place] [address]GGL (RBC) [Entitic vol]104.9 pBHefv19.0-100.0Lutheran HospitalComment on above:Performed By: #### [id number] #### [facility] [address], [place] [address]Uyec Absolute0.6 E9/LNormal0.2-1.0[facility] Comment on above:Performed By: #### [id number] #### [facility] [address] [place] [address]Lrfyafhdf/100 WBC (Bld)5.8 %Normal4.0-14.0Lutheran HospitalComment on above:Performed By: #### [id number] #### [facility] [address] [place] [address]Wtumor Absolute4.1 E9/LNormal2.0-7.5FProtestant Hospital Comment on above:Performed By: #### [id number] #### [facility] [address], [place] [address]Aogrwt Auto43.0 %Ptincv99.0-75.0[facility] Comment on above:Performed By: #### [id number] #### [facility] [address], [place] [address]Zclnhcan468.0 E9/KLrdxtw768.0-500.0[facility] Comment on above:Performed By: #### [id number] #### [facility] [address], [place] [address]Vbwowqvo mean volume (Bld) [Entitic vol]7.2 fLNormal6.4-10.8 Luther[facility] HospitalComment on above:Performed By: #### [id number] #### [facility] [address] [place] [address]AQI8.0 E12/LLow4.3-5.9Lutheran HospitalComment on above:Performed By: #### [id number] #### [facility] [address] [place] [address]KBR5.6 E9/LNormal4.0-11.0Lutheran HospitalComment on above:Performed By: #### [id number] #### [facility] [address] [place] [address]Soobyhvak Glucose POCon 65-47-2410Jaozszw [Mass/Vol]94 mg/dL Detugt80-08JpynepLutheran HospitalComment on above:Performed By: #### [id number] #### [facility] [address] [place] [address]Yuzhmyj [Mass/Vol]101 mg/aQTkuq50-63ChlzzjLutheran Hospital Comment on above:Result Comment: Notified RN/MDPerformed By: #### [id number] #### [facility] [address] [place] [address]VG Clinical Summaryon 63-30-4432UI Clinical SummaryED Clinical Summary [address] [address] ED Clinical Summary Person Information Name: NATHANIEL MARCIAL [facility] Age: 49 Years : 1975 Sex: Female Language: Ugandan PCP: German Sheehan DO Marital Status: Phone: [phone] Visit Id: Visit Reason: Anxiety; Muscle weakness; Potential stroke; STROKE SYMPTOMS Speciality: Acuity: 2 Enc Type: Observation Med Service: Medical Arrival: 06/23/2025 19:45:01 Discharge: LOS: 000 02:46 Checkin: 06/23/2025 19:45:01 Checkout: 06/23/2025 22:31:22 Dispo Type: Admitted as IP to this [facility] EVENTS: Event Name Event Status [...] Admin Complete 06/23/2025 21:38:09 06/23/2025 21:45:45 ADDRESS: [address] [place] [address] DR RACHELE [place] [id number] [facility] DOC NOTES: MEDICAL INFORMATION: Prescriptions [...] DIAGNOSIS: Stroke-like symptomsLidyarmalAngel Phoenix Medical CenterED Note-Physicianon [id number] Note-PhysicianED Note-Physician Basic Information Time Seen: Antonio [...] and Complexity of Problems Differential Diagnosis: [] [facility] Data External documents reviewed: N/A My EKG [...] units, Inhalation, q4hr, PRN, (more content not included)...[facility] CenterComment on above: Result Comment: Electronically Signed By: Antonio Weinberg DO\.br\Date and Time Signed: 06/23/25 21:24 EDTED Patient Education Noteon 66-22-7390FJ Patient Education NoteED Patient Education NoteNoMercy Health Patient Summaryon [id number] Patient SummaryED Patient Summary [place] [id number] Patient Discharge Instructions Person Information Name: NATHANIEL MARCIAL Age: 49 Years Arrival Date: 06/23/2025 19:45:01 Discharge Diagnosis: Stroke-like symptoms Primary Care Physician: German Sheehan DO Provider Information Primary Provider: Antonio Weinberg DO Advanced Court Security Officer:None The exam and treatment you received in the Emergency Department were for an urgent problem and are not intended as complete care. It is important that you follow up with a doctor, nurse practitioner,or physician???s surgical physician assistant for ongoing care. If your symptoms [...] opioids can be used to help relieve jzchrmyf-oo-frvekn pain and are often prescribed following a [...] be struggling with addiction, tell your health rn patient care and askfor guidance or call [facility]???S National Helpline at 0-451-454-UYEO. v Source: [place] Department of Health and Human Services/Center for Disease Control & Prevention (more content not included)...NormalLutheran HospitalPT & PTTon 69-87-4198ZRX Coag (PPP) [Relative time]0.91 {INR}Invalid Interpretation [facility] CampusComment on above:Result Comment: INR results are specifically intended to assess patients stabilized on long-term Anticoagulation therapy suggested INR???s ???Less Intensive Anticoagulation??? 2.0 ??? 3.0 Conventional Range 3.0 ??? 4.5Performed By: #### [id number] #### [facility] [address], [place] [address]BC96.2 second(s)Normal9.4-12.5FProtestant Hospital Comment on above:Result Comment: 15 days [...] the same coagulation reagent and instrumentation as [facility]. Currently there are no coagulation studies available worldwide for children to 14 days, andno normal ranges.Performed By: #### [id number] #### [facility] [address], [place] [address]CUL71.4 second(s)Ejhzyd36.1-36.5FProtestant Hospital Comment on above:Result Comment: Parameter 15 days [...] the same coagulation reagent and instrumentation as [facility]. Currently there are no coagulation studies available worldwide for children to 14 days, andno normal ranges. Heparin therapeutic range (represented by Anti-Factor Xa activity of 0.2 - 0.4 U/mL) corresponds to PTT of 56.6 - 109.0 sec.Performed By: #### [id number] #### [facility] [address], [place] [address]LbkixjpwqpSouthwest Health Center 19-37-0206VsibnlliutPhoenixville Hospital Case Information Case Priority: None Programs: [...] are a little s (more content not included)...NormalLutheran HospitalTroponin 0 Hr.on 16-31-8874Ehpxbhln HS<2.16Xtj82.10-27.10Lutheran HospitalComment on above:Result Comment: The 95% CI (Confidence Interval) PPV (Positive Predictive Value) for myocardial infarction in females is 38 pg/mL, in males 51 pg/mL. The results should be used in conjunction with clinical conditions of myocardial infarction. (Access High Sensitivity Troponin I Instructions For Use, Yousuf Jamila, April 2018)Performed By: #### [id number] #### [facility] [address], [place] [address]JA with Cult Rflxon 87-46-2119Qovub (U)ColorlessAbnormalYellow Luther[facility] HospitalComment on above:Order Comment: Added by Discern ExpertResult Comment: Microscopic readings are only performed on those samples that meet specific criteria set forth by [facility]. Performed By: #### [id number] #### [facility] [address], [place] [address]Grbzruj (U) [Mass/Vol]NegativeNormalNegativeLutheran HospitalComment on above:Order Comment: Added by David ExpertPerformed By: #### [id number] #### [facility] [address], [place] [address]Aogcgnc Ql (U)NegativeNormalNegativeLutheran Hospital Comment on above:Order Comment: Added by David ExpertPerformed By: #### [id number] #### [facility] [address], [place] [address]JL BloodTraceAbnormalNegativeLutheran HospitalComment on above:Order Comment: Added by David ExpertPerformed By: #### [id number] #### [facility] [address], [place] [address]VS ClarityClearNormalClearLutheran HospitalComment on above:Order Comment: Added by David ExpertPerformed By: #### [id number] #### [facility] [address], [place] [address]RU Leuk Est75 Zari/uLAbnormalNegativeLutheran Hospital Comment on above:Order Comment: Added by David ExpertPerformed By: #### [id number] #### [facility] [address], [place] [address]RP MucousNegativeNormalNegCincinnati Shriners Hospital Comment on above:Order Comment: Added by David ExpertPerformed By: #### [id number] #### [facility] [address], [place] [address]JT NitriteNegativeNormalNegativeLutheran Hospital Comment on above:Order Comment: Added by Discern ExpertPerformed By: #### [id number] #### [facility] [address], [place] [address]EX pH7.0Invalid Interpretation Code5.0-9.0Lutheran HospitalComment on above:Order Comment: Added by Discern ExpertPerformed By: #### [id number] #### [facility] [address], [place] [address]SE ProteinNegativeNormalNegativeLutheran Hospital Comment on above:Order Comment: Added by David ExpertPerformed By: #### [id number] #### [facility] [address] [place] [address]TO MNF3-7Dqwfsh6-6VgzkavProtestant HospitalComment on above: Order Comment: Added by David ExpertPerformed By: #### [id number] #### [facility] [address] [place] [address]GR Spec Grav1.006Invalid Interpretation Code1.005-1.030Lutheran HospitalComment on above:Order Comment: Added by Discern Expert Performed By: #### [id number] #### [facility] [address] [place] [address]YH Squam Epithelial0-2Invalid Interpretation CodeLutheran HospitalComment on above:Order Comment: Added by David ExpertPerformed By: #### [id number] #### [facility] [address], [place] [address]KO UrobilinogenNegativeNormalNegativeLutheran HospitalComment on above:Order Comment: Added by David ExpertPerformed By: #### [id number] #### [facility] [address] [place] [address]XU OIA0-01Hconiwqm8-8KqxuvkProtestant HospitalComment on above:Order Comment: Added by David ExpertPerformed By: #### [id number] #### [facility] [address], [place] [address]Fvvrlusdajmq (U) [Mass/Vol]NegativeNormalNegativeLutheran HospitalComment on above:Order Comment: Added by Discern ExpertPerformed By: #### [id number] #### [facility] [address] [place] [address]AP with Cult Rflx SPon 33-58-8449PK Spec DescClean CatchNormal Luther[facility] HospitalComment on above:Performed By: #### [id number] #### [facility] [address] [place] [address]hAXTkc 57-81-1340tQMA71 mL/min/1.73 p9Edccdb>=59Lutheran HospitalComment on above:Performed By: #### [id number] #### [facility] [address] [place] [address]Dnwjxndvxw 34-68-3711Rdwfcnud5.0 microgram/dLInvalid Interpretation Code6.2-19.4FProtestant HospitalComment on above:Result Comment: Please Note: The reference interval and flagging for this test is for an AM collection. If this is a PM collection please use: Cortisol PM: 2.3-11.9 Performed at: [facility] [address] [id number] PhD Carolee PaynePerformed By: #### [id number] #### [facility] [address] [place] [address] 86[address]YXRwo 70-33-1162Baakq gap [Moles/Vol]10 mmol/LNormal6-16Lutheran HospitalComment on above:Performed By: #### [id number] #### [facility] [address] [place] [address]XUV/Creat Ratio15 No FowtvKsnxuy81-37LjditjLutheran HospitalComment on above:Performed By: #### [id number] #### [facility] [address] [place] [address]Mylddsy [Mass/Vol]9.5 mg/dLNormal8.9-11.1FProtestant HospitalComment on above:Performed By: #### [id number] #### [facility] [address], [place] [address]Qxltsnrr [Moles/Vol]99 mmol/OOit813-627YopgjkLutheran HospitalComment on above:Performed By: #### [id number] #### [facility] [address], [place] [address]TX3 [Moles/Vol]28 mmol/WVpzjwo73-01GvjjeyLutheran Hospital Comment on above:Performed By: #### [id number] #### [facility] [address], [place] [address]Zoqgeufuxg [Mass/Vol]0.8 mg/dLNormal0.5-1.3FProtestant HospitalComment on above:Performed By: #### [id number] #### [facility] [address], [place] [address]Kryenwn [Mass/Vol]109 mg/ySNljvky73-678MzfbphLutheran HospitalComment on above:Performed By: #### [id number] #### [facility] [address], [place] [address]Zaiojvymd [Moles/Vol]4.4 mmol/LNormal3.5-5.3FProtestant HospitalComment on above:Performed By: #### [id number] #### [facility] [address], [place] [address]Quwljl [Moles/Vol]133 mmol/PWfn051-802SvyngsLutheran HospitalComment on above:Performed By: #### [id number] #### [facility] [address], [place] [address]Xwma nitrogen [Mass/Vol]12 mg/dLNormal5-21Lutheran HospitalComment on above:Performed By: #### [id number] #### [facility] [address], [place] [address]Uyywl gap [Moles/Vol]11 mmol/LNormal6-16Lutheran HospitalComment on above:Performed By: #### [id number] #### [facility] [address], [place] [address]GCQ/Creat Ratio11 No ZbimkFmktft00-18FkdycoLutheran HospitalComment on above:Performed By: #### [id number] #### [facility] [address], [place] [address]Wfkpvxl [Mass/Vol]9.0 mg/dLNormal8.9-11.1FProtestant HospitalComment on above:Performed By: #### [id number] #### [facility] [address], [place] [address]Dgoalcoe [Moles/Vol]93 mmol/LKjz681-932YfepjlLutheran HospitalComment on above:Performed By: #### [id number] #### [facility] [address], [place] [address]NG6 [Moles/Vol]28 mmol/GCwgjld33-62PnasqnLutheran Hospital Comment on above:Performed By: #### [id number] #### [facility] [address], [place] [address]Eijxqbzqis [Mass/Vol]0.9 mg/dLNormal0.5-1.3FProtestant HospitalComment on above:Performed By: #### [id number] #### [facility] [address], [place] [address]Jodxvou [Mass/Vol]91 mg/gSRydawy39-668DytiebLutheran HospitalComment on above:Performed By: #### [id number] #### [facility] [address], [place] [address]Gtvpoohey [Moles/Vol]3.2 mmol/LLow3.5-5.3FProtestant HospitalComment on above:Performed By: #### [id number] #### [facility] [address], [place] [address]Fyiohj [Moles/Vol]129 mmol/XDzb888-081LbagfeLutheran HospitalComment on above:Performed By: #### [id number] #### [facility] [address], [place] [address]Saoh nitrogen [Mass/Vol]10 mg/dLNormal5-21Lutheran HospitalComment on above:Performed By: #### [id number] #### [facility] [address], [place] [address]WHHno 25-30-1281EOL2.7 mg/dLNormal<=1.9Lutheran HospitalComment on above:Performed By: #### [id number] #### [facility] [address], [place] [address]DsqK2sev 19-34-7674AeW3v (Bld) [Mass fraction]5.1 %Normal<=5.9 Lutheran HospitalComment on above:Performed By: #### [id number] #### [facility] [address], [place] [address]Cklgpyajm Patient Summaryon 29-37-2971Sofkwmead Patient Summary Inpatient Patient Summary NATHANIEL MARCIAL [...] Diagnostic Test Results Other: Echocardiogram is ordered ([facility] Central Scheduling to call you for scheduling) Brain MRI order is in- will give printed order for facility with proper Nancy threshold Discharge Instructions Follow up closely with PCP, Neurology Previously Scheduled Follow-Up Appointments Monday 2:15 PM EDT With: Where: [facility]amm[facility] Monday 2:30 PM EDT With: Where: [facility] Bone Density Monday 11:20 AM EDT With: German Sheehan DO Where: [facility] [address] [place] [address]- Monday2025 9:30 AM EDT With: Where: [place] [address] [place] [address]- New Follow Up Appointments after Discharge [place] [facility] [place]: [place] 1 week Comments: Get a BMP (blood work) to recheck potassium/sodium levels in 1 week- can be done with Dr Sheehan, or at [facility] Lab - go to ER registration for blood work, do not need to be fasting Where: Follow Up with German Sheehan DO, [facility] When: Within 1 week Comments: STOP HCTz- recommend repeat BMP (labs to recheck K/Na) in 1 week Where: [address] [place] [address]- Follow Up with neurology When: Within 2 to 4 weeks Comments: call [phone] to scheduled an appt Where: Medications What How Much When Why Instructions Next Dose New acetaminophen (acetaminophen 325 mg Tab) 2 Tablets By Mouth Every 6 hours as needed for Pain asneeded New APAP/ butalbital/ caffeine (APAP/ butalbital/ caffeine 325 mg-50 mg-40 mg Tab) 1 Tablets By Mouth Every 4 hours as needed for Headache Pickup at [facility]/pharmacy #6177 as needed New aspirin (aspirin 81 mg Oral EC Tab) 1 Tablets By Mouth Every day New med for VA/ Stroke prevention Pickup at [facility]/pharmacy #6177 06/22 New atorvastatin (atorvastatin 80 mg Tab) 1 Tablets By Mouth At bedtime New cholesterol lowering medication; Stroke/ VA prevention Pickup at [facility]/pharmacy #6177 06/22 New potassium chloride (potassium chloride 10 mEq Cap-ER) 1 Capsules By Mouth Every day Pickup at [facility]/pharmacy #6177 06/22 Unchanged albuterol (albuterol 0.083% Inh [...] 1 Tablets By Mout (more content not included)...NormalLutheran HospitalInterdisciplinary Note - OTon 42-19-5289Tbiochyuykhhnmdln Note - OTInterdisciplinary Note - OT OT [facility] six clicks score = no further OT needs. Pt is Ind w/ basic adls/transfers in room. No episodes of dizziness or sob with functional activities. Dc inpatient OT services. Pt does displaysome mild RUE weakness, recommend OP Ot eval as pt desires to address as she attributes some of this weakness to a longstanding rt shoulder issue.NormalLutheran Hospital Lipid Panelon 05-20-4704Czzhppawfvv [Mass/Vol]303 mg/nIXyze629-293TrsceaLutheran HospitalComment on above:Performed By: #### [id number] #### [facility] [address], [place] [address]Loncazfogwz in HDL [Mass/Vol]40 mg/dLInvalid Interpretation CodeLutheran HospitalComment on above:Result Comment: '>= 60 LOW RISK' '<= 40 HIGH RISK'Performed By: #### [id number] #### [facility] [address], [place] [address]Ygrrnnjehdc in LDL [Mass/Vol]174 mg/dLHigh<=129Lutheran HospitalComment on above:Performed By: #### [id number] #### [facility] [address], [place] [address]Dpwhwhycyti in VLDL [Mass/Vol]42 mg/dLHigh7-40Lutheran HospitalComment on above:Performed By: #### [id number] #### [facility] [address], [place] [address]Dtiyjidokzkc [Mass/Vol]211 mg/dLHigh<=149Lutheran HospitalComment on above:Performed By: #### [id number] #### [facility] [address], [place] [address]Zcnevbm 07-82-3022Xbwcl gap [Moles/Vol]11 mmol/LNormal6-16 Lutheran HospitalComment on above:Performed By: #### [id number] #### [facility] [address], [place] [address]Rogexqwg [Moles/Vol]91 mmol/HNrd172-039IdfxspLutheran HospitalComment on above:Performed By: #### [id number] #### [facility] [address], [place] [address]YB8 [Moles/Vol]31 mmol/NYjtkjt01-81ExhzyuLutheran Hospital Comment on above:Performed By: #### [id number] #### [facility] [address], [place] [address]Jucbosedl [Moles/Vol]2.7 mmol/LAbnormal3.5-5.3FProtestant HospitalComment on above:Result Comment: Critical Result Verified by Repeat Analysis Critical Result S_K:2.7 Called to and read back by: CARLOS NIELSEN at: 06/21/2025 01:50:44 by:CHPerformed By: #### [id number] #### [facility] [address] [place] [address]Cxhulw [Moles/Vol]130 mmol/OUqh929-769DscrjuLutheran HospitalComment on above:Performed By: #### [id number] #### [facility] [address], [place] [address]Bofsezhfwlp 05-64-3650Namajasgr [Mass/Vol]2.3 mg/dLNormal 1.3-2.4FProtestant HospitalComment on above:Performed By: #### [id number] #### [facility] [address] [place] [address]Jmeprfeivine 37-45-3844Aslmjvvyak [Osmolality]280 mosm/kgNormal 275-295Lutheran HospitalComment on above:Performed By: #### [id number] #### [facility] [address], [place] [address]WQQ With T4fr Reflexon 10-55-9770KYU Qn1.66 m[IU]/LNormal 0.34-5.60Lutheran HospitalComment on above:Performed By: #### [id number] #### [facility] [address], [place] [address]Y Osmolalityon 06-21-2025U Mojbcgzdia224 mOsm/vpAhkxkh77-6389 Lutheran HospitalComment on above:Performed By: #### [id number] #### [facility] [address], [place] [address]Q Sodiumon 17-11-6357Hxegmu [Moles/Vol]24 mmol/LInvalid Interpretation CodeLutheran HospitalComment on above:Performed By: #### [id number] #### [facility] [address], [place] [address]zXJIdy 73-41-6166bBOD88 mL/min/1.73 v2Fqofxu>=59Lutheran HospitalComment on above:Performed By: #### [id number] #### [facility] [address], [place] [address]nMKC98 mL/min/1.73 n1Sxofig>=59[facility] Comment on above:Performed By: #### [id number] #### [facility] [address], [place] [address]WV Draw & Holdon 08-57-8591SI D&HSample drawn for Blood Ba [facility] Clinic Orthopedic CenterComment on above:Performed By: #### [id number] #### [facility] [address], [place] [address]HUSgm 19-02-5527Fdmir gap [Moles/Vol]13 mmol/LNormal6-16Lutheran HospitalComment on above:Performed By: #### [id number] #### [facility] [address], [place] [address]YZR/Creat Ratio12 No PksvzNclmly16-65AbfdhxLutheran HospitalComment on above:Performed By: #### [id number] #### [facility] [address], [place] [address]Wmvzbgt [Mass/Vol]9.7 mg/dLNormal8.9-11.1FProtestant HospitalComment on above:Performed By: #### [id number] #### [facility] [address], [place] [address]Ankievwn [Moles/Vol]84 mmol/VSnf685-171VhoixjLutheran HospitalComment on above:Performed By: #### [id number] #### [facility] [address], [place] [address]SN1 [Moles/Vol]31 mmol/TDldplb93-29ZelwouLutheran Hospital Comment on above:Performed By: #### [id number] #### [facility] [address], [place] [address]Ktesyuapsr [Mass/Vol]0.9 mg/dLNormal0.5-1.3FProtestant HospitalComment on above:Performed By: #### [id number] #### [facility] [address], [place] [address]Gzwvkks [Mass/Vol]126 mg/rWQyrkfu61-861UhrmyqLutheran HospitalComment on above:Performed By: #### [id number] #### [facility] [address], [place] [address]Kameacemo [Moles/Vol]2.3 mmol/LAbnormal3.5-5.3FProtestant HospitalComment on above:Result Comment: Critical Result Verified by Repeat Analysis Critical Result S_K:2.3 Called to and read back by: NAI SIMON at: 06/20/2025 18:32:26 by:MJPerformed By: #### [id number] #### [facility] [address], [place] [address]Klnwss [Moles/Vol]126 mmol/VGmf165-379HltpbqLutheran HospitalComment on above:Performed By: #### [id number] #### [facility] [address], [place] [address]Bsqu nitrogen [Mass/Vol]11 mg/dLNormal5-21Lutheran HospitalComment on above:Performed By: #### [id number] #### [facility] [address], [place] [address]RDZ w/ Auto Diffon 86-34-3877Ovzbpvsn Absolute0.1 E9/LNormal 0.0-0.2FProtestant HospitalComment on above:Performed By: #### [id number] #### [facility] [address] [place] [address]Tejrmnshp/100 WBC (Bld)1.1 %Normal0.0-2.0Lutheran HospitalComment on above:Performed By: #### [id number] #### [facility] [address], [place] [address]Qxm Absolute0.0 E9/LNormal0.0-0.5FProtestant Hospital Comment on above:Performed By: #### [id number] #### [facility] [address] [place] [address]Rngqdjzoeny/100 WBC (Bld)0.3 %Normal0.0-8.0Lutheran HospitalComment on above:Performed By: #### [id number] #### [facility] [address] [place] [address]Rvigtotinup distribution width (RBC) [Ratio]14.5 %High10.9-14.2 Lutheran HospitalComment on above:Performed By: #### [id number] #### [facility] [address] [place] [address]Gmnstqrjjc (Bld) [Volume fraction]43.5 %Asdqvc79.0-46.0Lutheran HospitalComment on above:Performed By: #### [id number] #### [facility] [address] [place] [address]Ppcomiiwxl (Bld) [Mass/Vol]15.6 g/uNIbbgyo73.0-16.0Lutheran HospitalComment on above:Performed By: #### [id number] #### [facility] [address] [place] [address]Cvtou Absolute2.9 E9/LNormal1.0-4.0[facility] Comment on above:Performed By: #### [id number] #### [facility] [address], [place] [address]Xactudcymdb/100 WBC (Bld)35.3 %Jswrdx58.0-50.0Lutheran HospitalComment on above:Performed By: #### [id number] #### [facility] [address] [place] [address]FXB (RBC) [Entitic mass]35.4 qmXbsk99.0-34.0Lutheran HospitalComment on above:Performed By: #### [id number] #### [facility] [address] [place] [address]PBPB (RBC) [Mass/Vol]35.8 g/aGUmadpj46.4-36.0Lutheran HospitalComment on above:Performed By: #### [id number] #### [facility] [address] [place] [address]WHR (RBC) [Entitic vol]98.9 gIAstujb05.0-100.0Lutheran HospitalComment on above:Performed By: #### [id number] #### [facility] [address] [place] [address]Dymf Absolute0.7 E9/LNormal0.2-1.0[facility] Comment on above:Performed By: #### [id number] #### [facility] [address] [place] [address]Luohdhzvo/100 WBC (Bld)8.6 %Normal4.0-14.0Lutheran HospitalComment on above:Performed By: #### [id number] #### [facility] [address] [place] [address]Sisibw Absolute4.5 E9/LNormal2.0-7.5FProtestant Hospital Comment on above:Performed By: #### [id number] #### [facility] [address] [place] [address]Pqxijv Auto54.7 %Tzcwhv74.0-75.0[facility] Comment on above:Performed By: #### [id number] #### [facility] [address], [place] [address]Mvtgzovt261.0 E9/CKxedtp828.0-500.0[facility] Comment on above:Performed By: #### [id number] #### [facility] [address], [place] [address]Cfmkqhky mean volume (Bld) [Entitic vol]7.0 fLNormal6.4-10.8 Lutheran HospitalComment on above:Performed By: #### [id number] #### [facility] [address], [place] [address]PEQ8.4 E12/LNormal4.3-5.9Lutheran HospitalComment on above:Performed By: #### [id number] #### [facility] [address], [place] [address]NSJ4.3 E9/LNormal4.0-11.0Lutheran HospitalComment on above:Performed By: #### [id number] #### [facility] [address], [place] [address]FZ Head or Brain w/o Contraston 02-48-8122QL Head or Brain w/o ContrastExam Date/Time: 06/20/2025 [...] Venu Persaud MD Transcribed by: CARISA Technologist: [facility] Headon 83-37-0601FQU HeadExam Date/Time: 06/20/2025 17:46 EDT Reason for [...] Venu Persaud MD Transcribed by: CARISA Technologist: [facility] Neckon 08-20-4481QQU NeckExam Date/Time: 06/20/2025 17:46 EDT Reason for [...] Circulation: Distal vertebral arteries, basilar artery, proximal healthcare economics consultant, and visualized cerebellar vessels appear patent. No [...] Venu Persaud MD Transcribed by: CARISA Technologist: JoseLutheran HospitalCapillary Glucose POCon 91-81-7901Xrsjqyw [Mass/Vol]139 mg/nLNotd22-09PrqxigLutheran HospitalComment on above:Result Comment: Notified RN/MDPerformed By: #### [id number] #### Carlos [facility] [address], [place] [address]LU Clinical Summaryon 17-15-6115NZ Clinical SummaryED Clinical Summary [address] [address] ED Clinical Summary Person Information Name: NATHANIEL MARCIAL [place] Age: 49 Years : 1975 Sex: Female Language: Ugandan PCP: German Sheehan DO Marital Status: Phone: [phone] Visit Id: Visit Reason: Weakness or fatigue; Paresthesia; Potential stroke; POTENTIAL STROKE, ARM NUMBNESS, DIZZINESS, BLURRED VISION Speciality: Acuity: 2 Enc Type: Observation Med Service: Medical Arrival: 06/20/2025 17:18:13 Discharge: LOS: 000 03:52 Checkin: 06/20/2025 17:18:13 Checkout: 06/20/2025 21:10:51 Dispo Type: Admitted as IP to this [facility] EVENTS: Event Name Event Status [...] 19:19:34 Patient Care Request 06/20/2025 19:22:41 ADDRESS: [address] [place] [address] DR RACHELE Doran [place] [id number] PHYS DOC NOTES: MEDICAL INFORMATION: Prescriptions Given: [...] 1:Stroke; 2:Hypokalemia; 3:HyponatremiaNormalFisher Phoenix Medical CenterED Note-Physicianon 93-72-6543OQ Note-PhysicianED Note-Physician Basic Information Time Seen: Saul [...] bilateral lower extremity. No limb ataxia with bhay-lo-poma testing. Vision intact. Patientreceives NIH 2 for [...] mg/mL Inj, 2.5 m (more content not included)...[facility] Orthopedic CenterComment on above:Result Comment: Electronically Signed By: Saul Palmer DO\.br\Date and Time Signed: 06/20/25 18:40 EDTED Patient Education Noteon 76-50-3033HK Patient Education NoteED Patient Education Note [facility] Patient Summaryon 60-05-4477NS Patient SummaryED Patient Summary [place] [address] Patient Discharge Instructions Person Information Name: NATHANIEL MARCIAL Age: 49 Years Arrival Date: 06/20/2025 17:18:13 Discharge Diagnosis: 1:Stroke; 2:Hypokalemia; 3:Hyponatremia Primary Care Physician: German Sheehan DO Provider Information Primary Provider: Saul Palmer DO Advanced Court Security Officer:None The exam and treatment you received in the Emergency Department were for an urgent problem and are not intended as complete care. It is important that you follow up with a doctor, nurse practitioner,or physician???s surgical physician assistant for ongoing care. If your symptoms [...] opioids can be used to help relieve wiyxsuzc-dl-zcgjgg pain and are often prescribed following a [...] be struggling with addiction, tell your health rn patient care and askfor guidance or call [facility] National Helpline at 9-136-026-KEPE. v Source: [place] Department of Health and Human Services/Center for Diseas (more content not included)...[facility] Orthopedic CenterPT & PTTon 06-20-2025 INR Coag (PPP) [Relative time]0.96 {INR}Invalid Interpretation [facility] CampusComment on above:Result Comment: INR results are specifically intended to assess patients stabilized on long-term Anticoagulation therapy suggested INR???s ???Less Intensive Anticoagulation??? 2.0 ??? 3.0 Conventional Range 3.0 ??? 4.5Performed By: #### [id number] #### [facility] [address], [place] [address]XU57.7 second(s)Normal9.4-12.5Fisher [facility] Comment on above:Result Comment: 15 days [...] the same coagulation reagent and instrumentation as [facility]. Currently there are no coagulation studies available worldwide for children to 14 days, andno normal ranges.Performed By: #### [id number] #### [facility] [address], [place] [address]TOE82.9 second(s)Fwjfit63.1-36.5FProtestant Hospital Comment on above:Result Comment: Parameter 15 days [...] the same coagulation reagent and instrumentation as [facility]. Currently there are no coagulation studies available worldwide for children to 14 days, andno normal ranges. Heparin therapeutic range (represented by Anti-Factor Xa activity of 0.2 - 0.4 U/mL) corresponds to PTT of 56.6 - 109.0 sec.Performed By: #### [id number] #### [facility] [address], [place] [address]Etcwvcyb 0 Hr.on 20-76-2417Anmgguhm HS2.90 pg/mLLow10.10-27.10 Lutheran HospitalComment on above:Result Comment: The 95% CI (Confidence Interval) PPV (Positive Predictive Value) for myocardial infarction in females is 38 pg/mL, in males 51 pg/mL. The results should be used in conjunction with clinical conditions of myocardial infarction. (Access High Sensitivity Troponin I Instructions For Use, Yousuf [place], April 2018)Performed By: #### [id number] #### [facility] [address], [place] [address]XV with Cult Rflxon 25-28-8018Uwsmr (U)ColorlessAbnormalYellow Lutheran HospitalComment on above:Order Comment: Added by David ExpertResult Comment: Microscopic readings are only performed on those samples that meet specific criteria set forth by [facility]. Performed By: #### [id number] #### [facility] [address], [place] [address]Iqfeshp (U) [Mass/Vol]NegativeNormalNegativeLutheran HospitalComment on above:Order Comment: Added by David ExpertPerformed By: #### [id number] #### [facility] [address], [place] [address]Omxqlyr Ql (U)NegativeNormalNegCincinnati Shriners Hospital Comment on above:Order Comment: Added by David ExpertPerformed By: #### [id number] #### [facility] [address], [place] [address]VV BloodTraceAbnormalNegCincinnati Shriners HospitalComment on above:Order Comment: Added by David ExpertPerformed By: #### [id number] #### [facility] [address], [place] [address]FU ClarityClearNormalClearLutheran HospitalComment on above:Order Comment: Added by David ExpertPerformed By: #### [id number] #### [facility] [address], [place] [address]RM Leuk EstNegativeNormalNegCincinnati Shriners Hospital Comment on above:Order Comment: Added by David ExpertPerformed By: #### [id number] #### [facility] [address], [place] [address]WS NitriteNegativeNormalNegCincinnati Shriners Hospital Comment on above:Order Comment: Added by David ExpertPerformed By: #### [id number] #### [facility] [address], [place] [address]JR pH7.0Invalid Interpretation Code5.0-9.0Lutheran HospitalComment on above:Order Comment: Added by Discern ExpertPerformed By: #### [id number] #### [facility] [address] [place] [address]GB ProteinNegativeNormalNegativeLutheran Hospital Comment on above:Order Comment: Added by Discern ExpertPerformed By: #### [id number] #### [facility] [address], [place] [address]GZ Spec Grav1.017Invalid Interpretation Code1.005-1.030Lutheran HospitalComment on above:Order Comment: Added by Discern Expert Performed By: #### [id number] #### [facility] [address] [place] [address]MN UrobilinogenNegativeNormalNegativeLutheran HospitalComment on above:Order Comment: Added by David ExpertPerformed By: #### [id number] #### [facility] [address] [place] [address]Iuvoilrxjijs (U) [Mass/Vol]NegativeNormalNegativeLutheran HospitalComment on above:Order Comment: Added by Discern ExpertPerformed By: #### [id number] #### [facility] [address] [place] [address]YE with Cult Rflx SPon 43-94-6335VT Spec DescClean CatchNormal Lutheran HospitalComment on above:Performed By: #### [id number] #### [facility] [address] [place] [address]TY Chest Single Viewon [id number] Chest Single ViewExam Date/Time: 06/20/2025 17:50 EDT [...] Venu Persaud MD Transcribed by: CARISA Technologist: CMLNormalLutheran HospitaleGFRon 58-80-2870aLHF59 mL/min/1.73 y1Zywlfh>=59Lutheran HospitalComment on above:Performed By: #### [id number] #### [facility] [address], [place] [address]Aqszofwbpp Visit Summaryon 98-34-8710Nemjkdvqgm Visit Summary Ambulatory Visit Summary NATHANIEL MARCIAL [...] AM EDT With: German Sheehan DO Where: [facility] [address] [place] [address]- Monday2025 9:30 AM EDT With: Where: [facility] [address] [place] [address]- You Need to Schedule the Following Appointments Follow Up with German Sheehan DO, FAM When: Within 4 weeks Comments: 4 WEEKS FOLLOWUP Where: [address] [place] [address]- Medications What How Much When Why Instructions Changed albuterol (albuterol 0.083% Inh Teresita 3 mL) 0.083% - 3mL dosing units Inhalation Every 4 hours as needed for Wheezing Pickup at [facility]/pharmacy #4719 Changed albuterol (Ventolin HFA 90 mcg/ inh [...] Milligram By Mouth At bedtime Pharmacy Information [facility]/pharmacy #6177: [address] [place], [place] [id number] [phone] Allergies LaMICtal (Unknown) Tape (rash) bacitracin clindamycin [...] signed up for this yet, please contact [employer] at [phone] to get signed up today. Language Information Language assistance services are available as needed. [facility] Medicine Office/Clinic Noteon 21-76-1542Wurtqo Medicine Office/Clinic NoteBrockton Va Medical Center Medicine Office/Clinic Note HPI Staff 3 wk [...] - 25 Julienne: Due Pap: Hx Hysterectomy Davis: [place] [facility] [facility] [place] History of [...] Inhalation, q4hr Wheezing, 225 mL, Refill(s) 3, [facility]/pharmacy #6177, 150.7, cm, 06/13/25 13:52:00 EDT, Height/Length Dosing, 60.4, kg, 06/13/25 13:55:00 EDT, Weight Dosing Follow-up With When Contact Information Link German BETH FAM Within 4 weeks [address] [place] [address]- Additional Instructions: 4 WEEKS FOLLOWUP Problem List/Past [...] Tab, 0.5 mg= 1 (more content not included)...[facility] Orthopedic CenterComment on above:Result Comment: Electronically Signed By: Link German BETH\.br\Date and Time Signed: 06/13/25 14:27 EDTFamily Medicine Office/Clinic Noteon 23-73-9555Sobogo Medicine Office/Clinic NoteFamily Medicine Office/Clinic Note Chief Complaint ER Follow Up HPI Staff Patient here for ER f/u ER followup: Hospital: [facility] Visit date: 06/05 Symptoms the patient presented [...] Julienne: Ordered Dexa: Ordered Pap: Hx Hysterectomy Davis: [place] [facility] [place] of Present Illness Patient presents today for hospital followup. Hospital location: [facility] Admission Date: 06/05/2025 Discharge Date: 06/05/2025 Reviewed [...] you quit, w (more content not included)...Normal [facility] HospitalComment on above:Result Comment: Electronically Signed By: German Sheehan DO.nasir\Date and Time Signed: 06/10/25 17:28 EDTED Note-Physicianon [id number] Note-PhysicianED Note-Physician Basic Information Time Seen: Ashley [...] Tylenol, Reglan, and (more content not included)...Normal [facility] HospitalComment on above:Result Comment: Electronically Signed By: Rosemarie Ramirez PA-C\.br\Date and Time Signed: 06/05/2523:45 EDT\.br\Electronically Co-Signed By: Saul Palmer DO\.br\Date and Time Co-Signed: 06/08/25 07:45 EDTCT Head or Brain w/o Contraston 27-81-4914QX Head or Brain w/o ContrastExam Date/Time: 06/05/2025 [...] James Trevino MD Transcribed by: CARISA Technologist: LiliamLutheran HospitalXR Chest Single Viewon [id number] Chest Single ViewExam Date/Time: 06/05/2025 21:03 EDT [...] James Trevino MD Transcribed by: CARISA Technologist: HolaLutheran HospitalBMPon 96-99-5595Haveh gap [Moles/Vol]13 mmol/LNormal6-16[facility] Comment on above:Performed By: #### [id number] #### [facility] [address], [place] [address]DGU/Creat Ratio10 No WmctsQjydsn83-30NuusxcLutheran HospitalComment on above:Performed By: #### [id number] #### [facility] [address], [place] [address]Ivsyvkp [Mass/Vol]9.6 mg/dLNormal8.9-11.1FProtestant HospitalComment on above:Performed By: #### [id number] #### [facility] [address], [place] [address]Ivhjathq [Moles/Vol]99 mmol/MHea088-338YpjxsuLutheran HospitalComment on above:Performed By: #### [id number] #### [facility] [address], [place] [address]AL5 [Moles/Vol]25 mmol/DIgewjv28-86OvkzafLutheran Hospital Comment on above:Performed By: #### [id number] #### [facility] [address], [place] [address]Vmfyxqezzt [Mass/Vol]0.8 mg/dLNormal0.5-1.3FProtestant HospitalComment on above:Performed By: #### [id number] #### [facility] [address], [place] [address]Kyjjcyq [Mass/Vol]106 mg/cWYgdvoo57-746TyzlkoLutheran HospitalComment on above:Performed By: #### [id number] #### [facility] [address], [place] [address]Lqohhqgpy [Moles/Vol]3.5 mmol/LNormal3.5-5.3FProtestant HospitalComment on above:Performed By: #### [id number] #### [facility] [address], [place] [address]Pflspf [Moles/Vol]133 mmol/IWvl847-861QwfwunLutheran HospitalComment on above:Performed By: #### [id number] #### [facility] [address], [place] [address]Mpra nitrogen [Mass/Vol]8 mg/dLNormal5-21Lutheran HospitalComment on above:Performed By: #### [id number] #### Carlos [facility] [address] [place] [address] 32447ISZ w/ Auto Diffon [id number] Ql (Bld)PRESENT Invalid Interpretation CodeLutheran HospitalComment on above:Performed By: #### [id number] #### Gonzalez [facility] [address] [place] [address] 31264Mbtxwmrd Absolute0.1 E9/LNormal0.0-0.2FProtestant HospitalComment on above:Performed By: #### [id number] #### [facility] [address] [place] [address] 00786Vpdejpkks/100 WBC (Bld)0.9 %Normal0.0-2.0Lutheran HospitalComment on above:Performed By: #### [id number] #### [facility] [address] [place] [address] 81307Nwz Absolute0.0 E9/LNormal0.0-0.5FProtestant Hospital Comment on above:Performed By: #### [id number] #### [facility] [address] [place] [address] 83510Frkdxyxlfxe/100 WBC (Bld)0.5 %Normal0.0-8.0Lutheran HospitalComment on above:Performed By: #### [id number] #### [facility] [address] [place] [address] 56387Mqlgx Absolute3.1 E9/LNormal1.0-4.0[facility] Comment on above:Performed By: #### [id number] #### [facility] [address] [place] [address] 63694Mnkrrfyumqq/100 WBC (Bld)43.8 %Egqfcr04.0-50.0Lutheran HospitalComment on above:Performed By: #### [id number] #### [facility] [address] [place], [place] [address]IkmumaemqJUEIUBKHsomuzp Interpretation [facility] CampusComment on above:Performed By: #### [id number] #### Carlos [facility] [address] [place] [address] 17951Icou Absolute0.6 E9/LNormal0.2-1.0[facility] Comment on above:Performed By: #### [id number] #### Gonzalez [facility] [address] [place], [place] [address]Ypircgxsi/100 WBC (Bld)9.0 %Normal4.0-14.0Lutheran HospitalComment on above:Performed By: #### [id number] #### [facility] [address] [place] [address] 17377Hffiog Absolute3.3 E9/LNormal2.0-7.5FProtestant Hospital Comment on above:Performed By: #### [id number] #### [facility] [address] [place] [address] 56209Bgrcjr Auto45.8 %Ttltfm29.0-75.0[facility] Comment on above:Performed By: #### [id number] #### [facility] [address] [place] [address] 14906VQS morphology finding Nom (Bld)SEE MORPHOLOGYInvalid Interpretation [facility] CampusComment on above:Performed By: #### [id number] #### [facility] [address] [place] [address] 86687Rvpzfjpvwbw distribution width (RBC) [Ratio]15.3 %High10.9-14.2 Lutheran HospitalComment on above:Performed By: #### [id number] #### [facility] [address] [place] [address] 19083Bxmittssis (Bld) [Volume fraction]43.9 %Sizekg39.0-46.0Lutheran HospitalComment on above:Performed By: #### [id number] #### [facility] [address] [place] [address] 46379Nmdlliplkf (Bld) [Mass/Vol]15.3 g/jIThqynb59.0-16.0Lutheran HospitalComment on above:Performed By: #### [id number] #### [facility] [address] [place] [address] 48576NIN (RBC) [Entitic mass]36.1 isLimm23.0-34.0Lutheran HospitalComment on above:Performed By: #### [id number] #### [facility] [address] [place] [address] 60123EDLZ (RBC) [Mass/Vol]34.9 g/qCBoziou92.4-36.0Lutheran HospitalComment on above:Performed By: #### [id number] #### [facility] [address] [place] [address] 30395SBH (RBC) [Entitic vol]103.4 rVHsjj08.0-100.0Lutheran HospitalComment on above:Performed By: #### [id number] #### [facility] [address] [place] [address] 07616Sdbuhdes055.0 E9/ULgmgyz328.0-500.0[facility] Comment on above:Performed By: #### [id number] #### [facility] [address] [place] [address] 16756Vcoposnq mean volume (Bld) [Entitic vol]6.8 fLNormal6.4-10.8 Lutheran HospitalComment on above:Performed By: #### [id number] #### [facility] [address] [place] [address] 49405YBG9.3 E12/LNormal4.3-5.9Lutheran HospitalComment on above:Performed By: #### [id number] #### [facility] [address] [place] [address] 59917FTC2.1 E9/LNormal4.0-11.0Lutheran HospitalComment on above:Performed By: #### [id number] #### Carlos [facility] [address], [place] [address]HO Clinical Summaryon [id number] Clinical SummaryED Clinical Summary [address] [address] ED Clinical Summary Person Information Name: NATHANIEL MARCIAL [place] Age: 49 Years : 1975 Sex: Female Language: Ugandan PCP: German Sheehan DO Marital Status: Phone: [phone] Visit Id: Visit Reason: Chest pressure - [...] 06/05/2025 23:56:35 06/05/2025 23:56:35 06/05/2025 23:56:35 ADDRESS: [address] [place] [address] DR RACHELE M[place]ANDA [place] [id number] PHYS DOC NOTES: MEDICAL INFORMATION: Prescriptions Given: [...] bedtime. PATIENT EDUCATION INFORMATION: Instructions: Hypertension, Adult, Tgtg-uv-Qwei Follow up: With: Address: When: German Sheehan [address] [place] [address] Piper (1) In 3 days 06/08/2025 Comments: Call to schedule a follow-up appointment with your primary care provider and psychiatrist. Continuetaking your blood pressure medications as prescribed. Monitor your blood pressure at home and keep a log of it. Return to the ED with any new or worsening symptoms. DIAGNOSIS: Anxiety; WANG (headache); HTN (hypertension)[facility] Patient Summaryon [id number] Patient SummaryED Patient Summary [address] [address] Patient Discharge Instructions Person Information Name: NATHANIEL MARCIAL Age: 49 Years Arrival Date: 06/05/2025 19:50:49 Discharge Diagnosis: Anxiety; WANG (headache); HTN (hypertension) Primary Care Physician: German Sheehan DO Provider Information Primary Provider: Saul Palmer DO Advanced Court Security Officer:Rosemarie Ramirez PA-C The exam and treatment you received in the Emergency Department were for an urgent problem and are not intended as complete care. It is important that you follow up with a doctor, nurse practitioner,or physician???s surgical physician assistant for ongoing care. If your symptoms [...] Address: [place]: German Sheehan [address] [place] [address] Piper (1) In 3 days 06/08/2025 Comments: Call [...] participating provider. Patient Education Materials: Hypertension, Adult, Iiti-uu-Slat A MESSAGE TO ALL PATIENTS REGARDING OPIOIDS PRESCRIPTION OPIOIDS: WHAT YOU NEED TO KNOW Prescription opioids can be used to help relieve xrrwyphz-uf-bhccid pain and are often prescribed following a [...] program or your pharmacy mail-back program, or [facility]en[facility] (more content not included)...NormalLutheran HospitalPT & PTTon 89-35-2157WCD Coag (PPP) [Relative time]0.86 {INR}Invalid Interpretation CodeLutheran HospitalComment on above:Result Comment: INR results are specifically intended to assess patients stabilized on long-term Anticoagulation therapy suggested INR???s ???Less Intensive Anticoagulation??? 2.0 ??? 3.0 Conventional Range 3.0 ??? 4.5Performed By: #### [id number] #### Carlos [facility] [address], [place] [address]YE3.6 second(s)Normal9.4-12.5Fisher [facility] Samaritan HospitalComment on above:Result Comment: 15 days - [...] the same coagulation reagent and instrumentation as [facility]. Currently there are no coagulation studies available worldwide for children to 14 days, andno normal ranges.Performed By: #### [id number] #### [facility] [address], [place] [address]EHJ68.9 second(s)Nbhrhp87.1-36.5FProtestant Hospital Comment on above:Result Comment: Parameter 15 days [...] the same coagulation reagent and instrumentation as [facility]. Currently there are no coagulation studies available worldwide for children to 14 days, andno normal ranges. Heparin therapeutic range (represented by Anti-Factor Xa activity of 0.2 - 0.4 U/mL) corresponds to PTT of 56.6 - 109.0 sec.Performed By: #### [id number] #### [facility] [address], [place] [address]Tkvpzlfz 0 Hr.on 89-70-9420Yirbkwfy HS2.70 pg/mLLow10.10-27.10 Lutheran HospitalComment on above:Result Comment: The 95% CI (Confidence Interval) PPV (Positive Predictive Value) for myocardial infarction in females is 38 pg/mL, in males 51 pg/mL. The results should be used in conjunction with clinical conditions of myocardial infarction. (Access High Sensitivity Troponin I Instructions For Use, Yousuf Jamila, April 2018)Performed By: #### [id number] #### [facility] [address], [place] [address]Menbkfki 1 Hr.on 83-72-3971Dcxcewjh HS<2.00Epn55.10-27.10Lutheran HospitalComment on above:Result Comment: The 95% CI (Confidence Interval) PPV (Positive Predictive Value) for myocardial infarction in females is 38 pg/mL, in males 51 pg/mL. The results should be used in conjunction with clinical conditions of myocardial infarction. (Access High Sensitivity Troponin I Instructions For Use, Yousuf Jamila, April 2018)Performed By: #### [id number] #### [facility] [address], [place] [address]CI with Cult Rflxon 67-29-8353Rnlbr (U)ColorlessAbnormalYellow Lutheran HospitalComment on above:Result Comment: Microscopic readings are only performed on those samples that meet specific criteria set forth by [facility].Performed By: #### [id number] #### [facility] [address], [place] [address]Vgjqkqv (U) [Mass/Vol]NegativeNormalNegativeLutheran HospitalComment on above:Performed By: #### [id number] #### [facility] [address], [place] [address]Reqxzda Ql (U)TraceAbnormalNegativeLutheran Hospital Comment on above:Performed By: #### [id number] #### [facility] [address], [place] [address]UT BloodTraceAbnormalNegativeLutheran HospitalComment on above:Performed By: #### [id number] #### [facility] [address], [place] [address]QS ClarityClearNormalClearLutheran HospitalComment on above:Performed By: #### [id number] #### [facility] [address], [place] [address]IH Leuk EstNegativeNormalNegCincinnati Shriners Hospital Comment on above:Performed By: #### [id number] #### [facility] [address], [place] [address]PA MucousNegativeNormalNegCincinnati Shriners Hospital Comment on above:Performed By: #### [id number] #### [facility] [address], [place] [address]EQ NitriteNegativeNormalNegativeLutheran Hospital Comment on above:Performed By: #### [id number] #### [facility] [address] [place] [address] 107[address]IE pH6.0Invalid Interpretation Code5.0-9.0Lutheran HospitalComment on above:Performed By: #### [id number] #### [facility] [address] [place] [address] 22096AC ProteinNegativeNormalNegativeLutheran Hospital Comment on above:Performed By: #### [id number] #### [facility] [address] [place] [address]YO LTM5-6Tqwlzu1-5ByqntaProtestant HospitalComment on above: Performed By: #### [id number] #### [facility] [address] [place] [address] 606[address]NB Spec Grav1.005Invalid Interpretation Code1.005-1.030Lutheran HospitalComment on above:Performed By: #### [id number] #### [facility] [address] [place] [address]MD Squam Epithelial0-2Invalid Interpretation CodeLutheran HospitalComment on above:Performed By: #### [id number] #### [facility] [address] [place] [address] 48169TK UrobilinogenNegativeNormalNegativeLutheran HospitalComment on above:Performed By: #### [id number] #### [facility] [address] [place] [address] 450[address]YC PBM5-5Bbxmqu9-0MxztszProtestant HospitalComment on above: Performed By: #### [id number] #### [facility] [address] [place] [address] 09641Tkpydlcreoaq (U) [Mass/Vol]NegativeNormalNegativeFisher Sk[facility] Medical CenterComment on above:Performed By: #### [id number] #### Carlos [facility] [address], [place] [address]DI Spec DescClean CatchNormalLutheran HospitalComment on above:Performed By: #### [id number] #### Carlos [facility] [address], [place] [address]oCQGlg 42-48-4398mGUC14 mL/min/1.73 y8Abputc>=59Lutheran HospitalComment on above:Performed By: #### [id number] #### [facility] [address], [place] [address]Tgpsofqrxw Visit Summaryon 77-89-3782Seffxwpwok Visit Summary Ambulatory Visit Summary NATHANIEL MARCIAL [...] PM EDT With: German Sheehan DO Where: [facility] [address] [place] [address]- Monday2025 9:30 AM EDT With: Where: [facility] [address] [place] [address]- You Need to Complete the Following Comprehensive [...] No, 140, pp_set_radiology_subspecialty, Not Required, [place] [facility] [place] Mamm Screen w/CAD if perf and [...] a family member wit (more content not included)...[facility] Medicine Office/Clinic Noteon 75-16-4129Gpegnj Medicine Office/Clinic NoteBrockton Va Medical Center Medicine Office/Clinic Note Chief Complaint Medicare Wellness [...] expect during my Medicare preventative care visit [facility]-Falls Prevention and home safety screening reviewed. Patient denies any falls in last 12 months, voices no worry about falling, exhibits no problems with sitting and standing. Pt voices understanding with keeping walk way area free of clutter to prevent tripping and/or falling. [place] Advance Directives reviewed. Patient received Advance Directive packet. Spent 5 minutes with patient. An explanation of [employer] for end of life reviewed. Discussion included handout Planning for Important Health Care Decisions with explanations regarding different decisions todiscuss with their chosen representatives. Explained the role each uniforms sales representative would play, encouraged patient to select [...] and where they have it on file. [place] Donor Registry also is included in packet: Reviewed with patient if they are and/or if they are not an organ donor they can complete this form and mail to the [place] [facility] [employer] (address is included) to have on file. [...] PCP visit. Will have labs completed with [facility]. Reviewed concerns with bladder control over past [...] patient to fast (more content not included)... [facility] CenterComment on above:Result Comment: Electronically Signed By: German Sheehan DO\.br\Date and Time Signed: 05/25/25 06:35 E DT\.br\Electronically Co-Signed By: Yris Betancourt RN\.br\Date and Time Co- Signed: 05/23/25 13:39EDTFamily Medicine Office/Clinic Noteon 53-48-8102Pgmlks Medicine Office/Clinic NoteFami Medicine Office/Clinic Note HPI [...] to go. Julienne: Due Pap: Hx Hysterectomy Davis: [place] [facility] [place] History of [...] Sleep disorder, un (more content not included)... [facility] CenterComment on above:Result Comment: Electronically Signed By: German Sheehan DO\.br\Date and Time Signed: 05/23/25 13:39 EDTOrders Onlyon [id number] [id number] Nathaniel Marcial 1975 F Date Provider Department Center 04/24/2025 [id number], HISTORICAL [place] [facility] Family History Problem Relation Age of Onset Heart failure Mother Heart failure Father Transient ischemic attack Father No Known Problems Sister No Known Problems Brother Family Status - Relation Status Age at Mother Father Sister BrotherNormalUniversity of Paris Regional Medical CenterAmbulatory Visit Summaryon 99-80-2999Vtueuuvqnv Visit SummaryAmbulatory Visit Summary NATHANIEL MARCIAL :1975 [...] AM EDT With: German Sheehan DO Where: [facility] [address] [place] [address]- Monday 11:00 AM EDT With: German Sheehan DO Where: [facility] [address] [place] [address]- You Need to Schedule the Following Appointments Follow Up with German Sheehan DO, FAM When: Within 4 weeks Comments: 4 WEEKS FOLLOWUP Where: [address] [place] [address]- Medications What How Much When Why Instructions New dicyclomine (dicyclomine 20 mg Tab) 1 Tablets By Mouth 4 times a day Duration: 30 Days Refills:[address] [facility]/pharmacy #6177 New lidocaine topical (lidocaine Top 5% film Patch) 1 Patches Topical Every day Dextroscoliosis of thoracic spine Osteoarthritis of right shoulder Refills: 5 apply 12 hours on and 12 hours off daily Pickup at [facility]/pharmacy #6177 Unchanged albuterol (albuterol 0.083% Inh Teresita [...] Milligram By Mouth At bedtime Pharmacy Information [facility]/pharmacy #6177: [address] [place], [place] [phone] Allergies LaMICtal (Unknown) Tape (rash) bacitracin clindamycin [...] signed up for this yet, please contact [employer] at [phone] to get signed up today. Language Information Language assistance services are available as needed. [facility] CenterAmbulatory Visit Summary Ambulatory Visit Summary NATHANIEL [...] AM EDT With: German Sheehan DO Where: [facility] [address] [place] [address]- Monday 11:00 AM EDT With: German Sheehan DO Where: [address] [facility] [address]- You Need to Schedule the Following Appointments Follow Up with German Sheehan DO, FAM When: Within 4 weeks Comments: 4 WEEKS FOLLOWUP Where: [address] [place] [address]- Medications What How Much When Why Instructions New dicyclomine (dicyclomine 20 mg Tab) 1 Tablets By Mouth 4 times a day Duration: 30 Days Refills:[address] [facility]/pharmacy #6177 New lidocaine topical (lidocaine Top 5% film Patch) 1 Patches Topical Every day Dextroscoliosis of thoracic spine Osteoarthritis of right shoulder Refills: 5 apply 12 hours on and 12 hours off daily Pickup at [facility]/pharmacy #6177 Unchanged albuterol (albuterol 0.083% Inh Teresita [...] bedtime Pharmacy Information [facility]/pharmacy #6177: [address] [place], [place] [phone] Allergies LaMICtal (Unknown) Tape (rash) bacitracin clindamycin [...] signed up for this yet, please contact [employer] at [phone] to get signed up today. Language Information Language assistance services are available as needed. [facility] Medicine Office/Clinic Noteon 18-74-1164Kdipfc Medicine Office/Clinic NoteBrockton Va Medical Center Medicine Office/Clinic Note Chief Complaint Review Results HPI Staff Patient here to review test results - At last visit provider reordered x-rays. Provider also prescribed Benzonatate for cough and a referral to [facility]. Patient has completed to x-rays and would like to review. Patient notes she cannot get an appointment with [facility] until 09/2025, she would like to discuss this with provider. Patient would also like to discuss test orders for lactose intolerance. Davis: [place] [facility] [place] [place] Julienne: due Pap: Hx Hysterectomy AMW: Needs to Schedule History of Present Illness Patient presents today for 6 week followup. - Referred to Dr. Vasquez at [facility] at patient request - Referred to cardiology due to refractory HTN management - Follows for Dr. Wilson at [facility] for orthopedics as well as right shoulder [...] 12 hours on and 12hours off daily, [facility]/pharmacy #6177, 150.7, cm, 04/22/25 9:14:00 EDT, Height/Length [...] 12 hours on and 12hours off daily, [facility]/pharmacy #6177, 150.7, cm, 04/22/25 9:14:00 EDT, Height/Length [...] assessed 1170F Medication li (more content not included)...[facility] Comment on above:Result Comment: Electronically Signed By: German Sheehan DO\.br\Date and Time Signed: 04/22/25 10:12 EDTXR Spine Cervical 4 or 5 Viewson [id number] Spine Cervical 4 or 5 ViewsExam Date/Time: [...] paraspinous soft tissues are unremarkable. Ordering Provider: Greman Sheehan FINAL REPORT Dictated: 04/22/2025 11:20 am Kevin Ayers MD Signed (Electronic Signature): 04/22/2025 11:20 am Signed by: Kevin Ayers MD Transcribed by: CARISA Technologist: NICOOur Lady of Mercy HospitalXR Spine Lumbosacral Minimum 4 Viewson [id number] Spine Lumbosacral Minimum 4 ViewsExam Date/Time: 04/21/2025 [...] MD Transcribed by: CARISA Technologist: [facility] HospitalXR Spine Thoracic 3 Viewson [id number] Spine Thoracic 3 ViewsExam Date/Time: 04/21/2025 11:49 [...] MD Transcribed by: CARISA Technologist: [facility] HospitalXR Shoulder Complete Righton [id number] Shoulder Complete RightExam Date/Time: 04/21/2025 11:55 EDT [...] James Trevino MD Transcribed by: CARISA Technologist: SilviaAtrium Health Wake Forest Baptist Wilkes Medical Centermitchell [facility] HospitalAmbulatory Visit Summaryon 08-99-0375Ensjlpnokd Visit SummaryAmbulatory Visit Summary NATHANIEL MARCIAL :1975 [...] PM EDT With: German Sheehan DO Where: [facility] [place] [address] [place] [address]- You Need to Schedule the Following Appointments Follow Up with German Sheehan DO, ALCON When: Within 2 weeks Comments: 2 WEEKS Where: [address] [place] [address]- You Need to Complete the Following XR Shoulder Complete Right, 02/27/25, Routine, Order for future visit, Transport Mode: Ambulatory, Reason: Arthritis, No, Osteoarthritis of right shoulder, pp_set_radiology_subspecialty, Not Required, [facility] [place] XR Spine Cervical 4 or 5 Views, [...] thoracic spine, pp_set_radiology_subspecialty, Not Required, [facility] [place] Someone Will Contact You Regarding These Appointments [facility] External Ambulatory Referral, Patient choice/referral by family/friend, Gastroenterology, No active case, prior patient of Dr. Vasquez, would like to see him again if possible at [facility], 02/27/25 10:53:00 EDT, C. difficile enteritis Medications What How Much When Why Instructions New benzonatate (Tessalon 100 mg Cap) 2 Capsules By Mouth 3 times a day Rib fracture Refills: [address] [facility]/pharmacy #5811 New carvedilol (carvedilol 25 mg Tab) 2 Tablets By Mouth Twice a day (with meals) Changed albuterol (albuterol 0.083% Inh Teresita 3 mL) 0.083% - 3mL dosing units Inhalation Every 4 hours as needed for Wheezing Changed albuterol (Ventolin HFA 90 mcg/ inh Aerosol-Adpt) 2 Puffs Inhalation 4 times a day as needed for for wheezing Pickup at [facility]/pharmacy #6177 Changed dicyclomine (dicyclomine 20 mg Tab) 1 Tablets By Mouth 4 times a day Duration: [address] [facility]/pharmacy #6177 Changed omeprazole (omeprazole 40 mg Cap-DR) 1 Capsules By Mouth Every day 30 minutes prior to foodor any other medication. Pickup at [facility]/pharmacy #6177 Unchanged acetaminophen-oxycodone (acetaminophen-oxycodone 325 mg-5 mg [...] Milligram By Mouth At bedtime Pharmacy Information [facility]/pharmacy #6197: [address], [place] [phone] Allergies LaMICtal (Unknown) Tape (rash) bacitracin clindamycin (Unknown) vancomycin Problems Ongoing - Any problem that you are currently receiving treatment for. Asthma Dextroscoliosis of thoracic spine Generalized anxiety disorder with panic attacks GERD (gastroesophageal reflux disease) Hypertension Panic disorder [episod (more content not included)...NormalUniversity [facility]als [facility] Medicine Office/Clinic Noteon 06-64-8527Ytatea Medicine Office/Clinic NoteFabenjamin [facility]ney [facility] Medicine Office/Clinic Note Chief Complaint Establish Care HPI Staff Patient here to establish care (emergency contact amd friend, Akbar) Establish Care: History: Any previous diagnosis: see below History of seeing any specialist[place] [facility] [place]ale [place] [facility] (Nacho Crabtree), [facility] [facility] [place] (Tawnya Bah) 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 Patient would also like to discuss Cardiac medication (concerned with lower blood pressures) and Fosamax. - Patient was seen at [facility] ER 02/02/25 for left rib pain. X-ray negative for fracture. Naproxen prescribed and advised to f/u with PCP. Patient did f/u with Marry Stevens CNP 02/04, but didn't establish care at that time. No changes made. - [place] [facility] [place] pain. [...] a new referral to Dr. Vasquez at [facility]. She has a history of C. Difficile infection,requiring multiple rounds of Vanco, and had a hard time of management. She would like to keep with him as he has managed her case well in the past. Patient states that her heart medications just recently got changed around by her gore maker. HerHTN was not well controlled at that [...] like to discuss this with a different gore maker. She just cancelled an Echo due to [...] shoulder replacement. Has seen Dr. Wilson at [facility]. She is about 2 years out of [...] today. She is (more content not included)...Normal Lutheran HospitalComment on above:Result Comment: Electronically Signed By: German Sheehan DO\.br\Date and Time Signed: 02/27/25 11:41 EDTPre-Visit Planningon 10-95-1930Vhn-Visit PlanningPre-Visit Planning From: Rosy Alvarenga To: German Sheehan DO; Sent: 02/26/2025 11:22:51 EDT Subject: Pre-Visit Planning Due Date/Time: 02/26/2025 11:22:00 EDT Caller Name: MARCIAL NATHANIEL Mcgill; Caller Number: H , Prerna Ms Dr. Sheehan. During a pre-visit planning chart [...] feel free to contact me at extension [phone]. Thank you! Rosy Alvarenga LPN Clinical Saddle Stitch Operator [place] [address] Extension: [phone] [email or web address] From: German Sheehan DO To: Rosy Alvarenga; Sent: 02/27/2025 07:28:14 EDT Subject: RE: Pre-Visit Planning Caller Name: NATHANIEL MARCIAL; Caller Number: Meaghan , Prerna This is a new patient to me, I cannot address this without meeting her. Thanks for the info though!Have a great day![facility] CenterOffice Visiton 41-23-8511Lwnmxa-up [id number] Nathaniel Marcial 1975 F Date Provider Department Center 02/20/2025 NACHO POTTER EEVRETTE Love Family History Problem Relation Age of Onset Heart failure Mother Heart failure Father Transient ischemic attack Father No Known Problems Sister No Known Problems Brother Family Status - Relation Status Age at Mother Father Sister Brother Level of Service:31755 [place] OFFICE/OUTPATIENT ESTABLISHED MOD [facility] Visiton 28-43-2267Uoyaju-up visit [id number] Nathaniel Marcial Nano 1975 F Date Provider Department [place] 02/05/2025 NACHO POTTER Family History Problem Relation Age of Onset Heart failure Mother Heart failure Father Transient ischemic attack Father No Known Problems Sister No Known Problems Brother Family Status - Relation Status Age at Mother Father Sister Brother Level of Service:44622 [place] OFFICE/OUTPATIENT ESTABLISHED MOD [facility] 30 [facility] HealthAmbulatory Visit Summaryon 02-04-2025 Ambulatory Visit SummaryAmbulatory Visit [...] AM EDT With: German Sheehan DO Where: [place] [address] [place] [address]- Medications What How Much When Instructions Unchanged [...] for lung collapse and pneumonia. ??? Medicines. Ioyh-umx-tdjuynk or prescription medicines may be given to control pain. ??? Injection of a numbing medicine around the nerve near your injury (nerve block). Follow these instructions at home: Medicines ??? Take zpbw-thm-anvfbxy and prescription medicines only as told by your health care provider. ??? Ask your health care provider if the medicine prescribed to you: ? Requires you to avoid driving or using machinery. ? Can cause constipation. You may need to take these action (more content not included)...[facility] Medicine Office/Clinic Note on 41-63-9122Sywuuq Medicine Office/Clinic NoteB[facility] Medicine Office/Clinic Note Chief Complaint The patient presents for follow-up after a suspected rib contusion and increased blood pressure readings. HPI Staff Nathaniel is a 49 year old female presenting with ER followup: Hospital: [facility] Visit date: 02/02/25 Symptoms the patient presented [...] heart medication regimen. - Follow up with gore maker for medication evaluation. Follow-up No qualifying data [...] Recorded influenza, unspecified fo (more content not included)...[facility] CenterComment on above:Result Comment: Electronically Signed By: MARRY STEVENS CNP\.br\Date and Time Signed: 02/04/25 16:49 EDTED Note-Physicianon 32-81-8410AG Note-PhysicianED Note-Physician Basic Information Time Seen: Mason [...] day(s), # 20 tab(s), Refills(s) 0, Pharmacy: [facility]/pharmacy #[id number], 149, cm, 02/02/25 18:37:00 EDT, [...] In 3 days 02/05/2025 EDT [address] [place] [address]- [facility] (1) Additional Instructions: Patient Education Rib Contusion Attestation Patient seen and evaluated by the physician surgical physician assistant. Attending physician was present in the emergency department and supervised care. This visit was performed by both the physician and an APC. I performed all aspects of the MDM as documented. This report was transcribed using voice recognition software. Every effort was made to ensure accuracy, however, inadvertently computerized calender machine operator mistakes may be present. Appropriate healthcare PPE was used in evaluating this patient. The patient was placed in a mask. The healthcare provider was wearing mask, gloves, and utilizing proper hand hygiene. All equipment was properly cleansed. I performed a substantive part of the MDM during the patient??? (more content not included)...[facility] CenterComment on above:Result Comment: Electronically Signed By: Mason JAUREGUI, Chris Chavira\.br\Date and Time Signed: 02/02/2519:51 EDT\.br\Electronically Co-Signed By: Nash Neal DO\.br\Date and Time Co-Signed: 02/03/25 01:45 EDTXR Ribs Unilat 3 Views Left w/ PA Cheston 92-45-6238QE Ribs Unilat 3 Views Left w/ PA [...] Miramontes DO Transcribed by: CARISA Technologist: [facility] Clinical Summaryon 43-27-8883GG Clinical SummaryED Clinical Summary [place] [id number] ED Clinical Summary Person Information Name: NATHANIEL MARCIAL [facility] Age: 49 Years : 1975 Sex: Female Language: Ugandan PCP: NONE, XXXX Marital Status: Phone: [phone] Visit Id: Visit Reason: Rib/trunk pain-swelling; RIB/TRUNK [...] 02/02/2025 19:49:23 02/02/2025 19:49:23 02/02/2025 19:49:23 ADDRESS: [facility] [address] [place] [id number] PHYS DOC NOTES: MEDICAL INFORMATION: Prescriptions Given: New Medications [id number], [address] [place], [place] [id number], [phone] naproxen (naproxen 500 mg Tab) 1 Tablets [...] Follow up: With: Address: When: German Sheehan [facility] [place] [address] Business (1) In 3 days 02/05/2025 DIAGNOSIS: [facility] Patient Summary on 19-22-2610ZM Patient SummaryED Patient Summary [address] [address] Patient Discharge Instructions Person Information Name: NATHANIEL MARCIAL Age: 49 Years Arrival Date: 02/02/2025 18:29:21 Discharge Diagnosis: Contusion of rib on left side Primary Care Physician: NONE, XXXX Provider Information Primary Provider: Nash Neal DO Advanced Court Security Officer:Chris Cuevas PA-C The exam and treatment you received in the Emergency Department were for an urgent problem and are not intended as complete care. It is important that you follow up with a doctor, nurse practitioner,or physician???s surgical physician assistant for ongoing care. If your symptoms [...] With: Address: When: German Sheehan [address] [place] [address] [place] (1) In 3 days 02/05/2025 In the event that this physician does not participate in your insurance network, please consult with your insurance company to find a nearby participating provider. Patient Education Materials: Rib Contusion A MESSAGE TO ALL PATIENTS REGARDING OPIOIDS PRESCRIPTION OPIOIDS: WHAT YOU NEED TO KNOW Prescription opioids can be used to help relieve bzzhsnlk-zy-bsqfxv pain and are often prescribed following a [...] be struggling with addiction, tell your health rn patient care and askfor yossi (more content not included)...[facility]36on 38-93-237955Cs was in because of high pulse. BP 137/90 and pulse was 122. EKG was done.[facility] TroyOffice Visiton 08-31-6584Tiaoul-up [id number] Nathaniel Marcial 1975 F Date Provider Department Center 07/19/2024 BETH SHIRLEY Family History Problem Relation Age of Onset Heart failure Mother Heart failure Father Transient ischemic attack Father Family Status - Relation Status Age at Mother Father Level of Service:30757 [place] OFFICE/OUTPATIENT ESTABLISHED MOD [facility]36on 70-93-225013Knmbmzsvrt low b/p Pt claims that her B/P [...] think she was coming in for something minor.[facility] CHEMISTRYOrdered By: SYSTEM SYSTEM on 62-19-9368Soibduc [Mass/Vol]4.1 g/dLNormal 3.3 - 5.0 gm/dLRemisol ChemAlbumin/Globulin [Mass ratio]1.2 {ratio}Normal1.1 - 2.2Remisol ChemAlk Xfxp209 [iU]/dHigh21 - 98 Int._Unit/LRemisol BsrbTCJ77 [iU]/d Normal6 - 46 Int._Unit/LRemisol ChemAnion gap [Moles/Vol]13 mmol/LNormal6 - 16 mEq/LRemisol TzcdVFJ32 [iU]/dNormal5 - 43 Int._Unit/LRemisol ChemBili Direct0.2 mg/dLNormal0.0 - 0.4 mg/dLRemisol ChemBili Indirect0.4 mg/dLNormal0.1 - 0.9 mg/dLRemisol ChemBili Total0.6 mg/dLNormal0.0 - 1.1 mg/dLRemisol ChemCalcium [Mass/Vol]8.7 mg/dLLow8.9 - 11.1 mg/dLRemisol ChemChloride [Moles/Vol]104 mmol/L Avdvqk221 - 111 mmol/LRemisol ChemCO2 [Moles/Vol]24 mmol/DZqaqqo46 - 31 mmol/L Remisol ChemCreatinine [Mass/Vol]0.7 mg/dLNormal0.5 - 1.3 mg/dLRemisol ChemeGFR 106 mL/min/1.73 j1Wsbwvm>=59mL/min/1.73 x2Vouztft ChemGlobulin (S) [Mass/Vol]3.3 g/dLNormal1.4 - 4.0 gm/dLRemisol ChemGlucose [Mass/Vol]89 mg/sTZuikgb62 - 199 mg/dLRemisol ChemLipase Lvl11 unit/LLow13 - 58 unit/LRemisol ChemPotassium [Moles/Vol]2.9 mmol/LLow3.5 - 5.3 mmol/LRemisol ChemProtein [Mass/Vol]7.4 g/dL Normal6.0 - 7.8 gm/dLRemisol ChemSodium [Moles/Vol]138 mmol/SOmkujr356 - 145 mmol/LRemisol ChemUrea nitrogen [Mass/Vol]9 mg/dLNormal5 - 21 mg/dLRemisol Chem Urea nitrogen/Creatinine [Mass ratio]13 mg/urLwosgb90 - 20Remisol ChemHEMATOLOGY Ordered By: SYSTEM SYSTEM on 02-20-2418Xjvjkttm Absolute0.0 E9/LNormal0.0 - 0.2 E9/LRemisol HemeBasophils/100 WBC (Bld)0.5 %Normal0.0 - 2.0 %Remisol HemeEos Absolute0.0 E9/LNormal0.0 - 0.5 E9/LRemisol HemeEosinophils/100 WBC (Bld)0.1 % Normal0.0 - 8.0 %Remisol HemeErythrocyte distribution width (RBC) [Ratio]16.1 % High10.9 - 14.2 %Remisol HemeHematocrit (Bld) [Volume fraction]46.0 %Pwdalk20.0 - 46.0 %Remisol HemeHemoglobin (Bld) [Mass/Vol]15.5 g/bZCdyeem44.0 - 16.0 gm/dL Remisol HemeLymph Absolute2.1 E9/LNormal1.0 - 4.0 E9/LRemisol Heme Lymphocytes/100 WBC (Bld)35.1 %Idngmu56.0 - 50.0 %Remisol HemeMCH (RBC) [Entitic mass]34.5 sdVotj73.0 - 34.0 pgRemisol HemeMCHC (RBC) [Mass/Vol]33.4 g/dLNormal 31.4 - 36.0 gm/dLRemisol HemeMCV (RBC) [Entitic vol]103.1 yTZjky82.0 - 100.0 fL Remisol HemeMono Absolute0.6 E9/LNormal0.2 - 1.0 E9/LRemisol HemeMonocytes/100 WBC (Bld)9.5 %Normal4.0 - 14.0 %Remisol HemeNeutro Absolute3.2 E9/LNormal2.0 - 7.5 E9/LRemisol HemeNeutro Auto54.8 %Aqlvju63.0 - 75.0 %Remisol HemePlatelet 322.0 E9/GZsjsuc971.0 - 500.0 E9/LRemisol HemePlatelet mean volume (Bld) [Entitic vol]8.2 fLNormal6.4 - 10.8 fLRemisol HemeRBC4.5 E12/LNormal4.3 - 5.9 E12/LRemisol HemeWBC5.9 E9/LNormal4.0 - 11.0 E9/LRemisol HemeURINALYSISOrdered By: Crystal Porter on 84-24-0472Ndwrmiiu LM Ql (Urine sed)Trace /HPFNormal Trace/HPFFTMC UA Auto SSBilirubin Ql (U)Negative (10/13/23 4:23 PM)NormalNegativeFT UA Auto SSClarity (U)Clear (10/13/23 4:23 PM)NormalClearFTMC UA Auto SSColor (U)Yellow (10/13/23 4:23 PM)NormalYellowFT UA Auto SSEpithelial cells.squamous LM.HPF (Urine sed) [#/Area]0-2 /HPFNormal0-2/HPFFTMC UA Auto SSGlucose Test strip (U) [Mass/Vol]Negative (10/13/23 4:23 PM)NormalNegativeOKLAHOMA HOSPITAL ASS[facility]IATION UA Auto SSHemoglobin Ql (U)Trace *ABN* (10/13/23 4:23 PM)Invalid Interpretation CodeNegativeOKLAHOMA HOSPITAL ASSOCIATION UA Auto SSKetones (U) [Mass/Vol]Negative (10/13/23 4:23 PM)NormalNegativeOKLAHOMA HOSPITAL ASSOCIATION UA Auto SSLithium.plasma/[place]ma[place].RBC (Bld) [Mass ratio]0-3 /HPFNormal0-3/HPFFTMC UA Auto SSNitrite Ql (U)Negative (10/13/23 4:23 PM)NormalNegativeOKLAHOMA HOSPITAL ASSOCIATION UA Auto SSpH (U)6.5 *NA* (10/13/23 4:23 PM)Invalid Interpretation Code5.0 - 9.0[facility] UA Auto SSProtein (U) [Mass/Vol]Negative (10/13/23 4:23 PM)NormalNegativeOKLAHOMA HOSPITAL ASSOCIATION UA Auto SSSpecific gravity (U) [Rel density] <=1.005 *NA* (10/13/23 4:23 PM)Invalid Interpretation Code1.005 - 1.030FTMC UA Auto SSUA Spec DescClean Catch (10/13/23 4:23 PM)NormalSOLOMON [facility] Auto SSUrobilinogen Qn (U)0.7069244 {Arturo'U}/dLNormal0.0 - 1.0 EU/dLOKLAHOMA HOSPITAL ASSOCIATION UA Auto SSWBC Auto Ql (U)Negative (10/13/23 4:23 PM)NormalNegativeSOLOMON CARTER F[facility]ER [facility] Auto SSWBC LM.HPF (Urine sed) [#/Area]0-5 /HPFNormal0-5/HPFOKLAHOMA HOSPITAL ASSOCIATION UA Auto SSXR FOOT 3+ VIEWS LEFTon [...] in mGy = na DAP = na [facility] HealthcareRadiology Study observation (narrative)[facility] HealthcareXR FOOT 3+ VIEWS LEFTOrdered By: Radiologist Radiology on 23-82-8895IT[facility] Work Phone: cNPBreanne [phone] (ORHappy Hour PalMN) NATHANIEL MARCIAL ([id number]) 1975 F Date Time Provider Department 05/11/23 [facility] During your visit today, we recorded [...] Fully Assessed Reason for Visit: Patient Question [7727] Cmt: Offering patient surgical date. Prescriptions as [...] *04/10/2023 Encounter Status:Closed by MARCIE CHOU on 05/11/23[facility] HospitalCNPNTelephone (ORQ) NATHANIEL MARCIAL ([id number]) 1975 F Date Time Provider Department 05/11/23 SHARITA MYERS ORQ During your visit today, we recorded the following information about you: Vinita Crabtree 05/11/2023 10:35 AM Signed Left VM and sent Constant [employer] message to patient to see if she [...] *04/10/2023 Encounter Status:Closed by VINITA CRABTREE on 05/11/23NoMcKitrick HospitalXR Foot - left 2 ViewsOrdered By: Meka Matias on 05-05-2023 Radiology Study observation (narrative)[facility] HealthcareXR Foot - left 2 Views Ordered By: Meka Matias on 22-77-6017CKHE HealthcareCT Shoulder - right WO contraston 04-13-2023* [...] Collapse of the humeral head as described. Clamper: [employer] Transcribe Date/Time: Apr 13 2023 4:03P Dictated by : PAUL REED MD This examination was interpreted and the report reviewed and electronically signed by: PAUL REED MD on Apr 13 2023 4:04PM EST [id number]^AGFA_IDC^SI^ACNCCFRadiology, Radiologist, - 04/13/2023 * * *Final Report* [...] Collapse of the humeral head as described. Clamper: [employer] Transcribe Date/Time: Apr 13 2023 4:03P Dictated by : PAUL REED MD This examination was interpreted and the report reviewed and electronically signed by: PAUL REED MD on Apr 13 2023 4:04PM EST [id number]^AGFA_IDC^SI^ACN [facility] HealthcareCT Shoulder - right WO contrastOrdered By: Radiologist Radiology on 18-16-4599WWVY [employer] Work Phone: cNPBreanne [phone] (PODITW) MARCIALNATHANIEL Carrillo ([id number]) 1975 F Date Time Provider Department 04/11/23 AURELIANO VANN PODITW During your visit today, we recorded the following information about you: Abi Montague 04/11/2023 12:06 PM Signed Patient states that [employer] is unable to send out bone stimulator due to incorrect verbiage in order. Please all Leigh Ann at [phone] to clarify Selina Villa 04/11/2023 1:21 PM [...] MA 04/12/2023 11:00 AM Signed Faxed to [phone] per below note. Thank you, MARTIN Angel Deborah 04/12/2023 1:29 PM Signed Leigh Ann calling back---everything was sent for the wrong ankle. Please call Leigh Ann at [phone] Aureliano Vann DPM 04/12/2023 2:51 PM Signed [...] office said we can contact her at [phone] with any questions. Please contact patient or [...] 11:07 AM Addendum I noticed that in AliRidemakerz message she said that patient re-injured herself [...] Patient scheduled for [facility] on [facility] at [facility] Allergies As of Date: 04/11/2023 Noted [...] AT LEAST 30 M (more content not included)...NormalKeenan Private HospitalOVon 18-97-8781GPZDCxmapn Visit ([facility]) NATHANIEL MARCIAL ([id number]) 1975 F Date Time Provider Department 04/10/23 [...] As you know she is a 47-year-old vmkq-gqdx-fczgqhxa female with complaints in her shoulder that [...] Active internal rotation i (more content not included)...NormalHijewish healthcare center HospitalCT Shoulder - right WO contraston 84-08-0916Slmfdfaab Study observation (narrative)[facility] HealthcareXR SHLDR >/=3V AP/PIEDAD AP/OTHR RTon 63-03-3262RR SHLDR >/=3V AP/PIEDAD AP/OTHR RT* * *Final [...] Collapse of the humeral head as described. Clamper: PSCB Transcribe Date/Time: Apr 13 2023 4:03P Dictated by : PAUL REED MD This examination was interpreted and the report reviewed and electronically signed by: PAUL REED MD on Apr 13 2023 4:04PM EST [id number]_[id number] Hospital For ChildrenCNOVon 77-03-4259YDQLVlhviu Visit (ORTHMN) NATHANIEL MARCIAL ([id number]) 1975 F Date Time Provider Department 03/30/23 [...] seen Dr. Nate Gavin with [facility] in [place] and ordered a MRI of her shoulder [...] belly press test. Positive speeds test. Positive [place]'s test. Positive impingement signs (more content not included)...NormalThe [facility] Hospital [facility] 65-22-0890LRSG Office Visit (PODIMN) NATHANIEL MARCIAL ([id number]) 1975 F Date Time Provider Department 03/27/23 [...] for CRPS Plan: - (more content not included)...NormalGood Samaritan HospitalXR ANKLE 3V AP/LAT/OBL LTon 50-25-2689FO ANKLE 3V AP/LAT/OBL LT* * *Final Report* [...] WHICH MAY RELATED TO DISUSE AND/OR HYPEREMIA. Clamper: [facility] Transcribe Date/Time: Mar 27 2023 12:44P Dictated by : KENDALL GUTIERREZ MD This examination was interpreted and the report reviewed and electronically signed by: KENDALL GUTIERREZ MD on Mar 27 2023 12:45PM EST [id number]_[id number] Samaritan Hospital* * *Final Report* * * DATE OF [...] WHICH MAY RELATED TO DISUSE AND/OR HYPEREMIA. Clamper: [facility]ENTERTele[facility] Transport Management Transcribe Date/Time: Mar 27 2023 12:44P Dictated by : KENDALL GUTIERREZ MD This examination was interpreted and the report reviewed and electronically signed by: KENDALL GUTIERREZ MD on Mar 27 2023 12:45PM EST [id number]^AGFA_IDC^SI^ACNCCF-CLINISYNCRadiology, MD Del - 03/27/2023 * * *Final [...] WHICH MAY RELATED TO DISUSE AND/OR HYPEREMIA. Clamper: P[facility] Transcribe Date/Time: Mar 27 2023 12:44P Dictated by : KENDALL GUTIERREZ MD This examination was interpreted and the report reviewed and electronically signed by: KENDALL GUTIERREZ MD on Mar 27 2023 12:45PM EST [id number]^AGFA_IDC^SI^ACN [facility] HealthcareRadiology Study observation (narrative)[facility] HealthcareXR ANKLE 3V AP/LAT/OBL LTOrdered By: Radiologist Radiology on 86-26-9554[facility] Work Phone: XR ANKLE GENERAL 3V AP/LAT/OBL LEFTon 03-27-[address] [facility] HospitalProgress Noteson 91-79-7479Ughqlpgzddeoe Authentication Interface Message TextEMERGENCY TRIAGE, TREAT AND [...] Same ET3 Encounter Completed by: Chelo Alva [facility] CenterThoora System CHEMISTRYOrdered By: SYSTEM SYSTEM on 39-63-4663Rfzcq gap [Moles/Vol]14 mmol/L Normal6 - 16 mEq/LFTMC RemisolCalcium [Mass/Vol]8.7 mg/dLLow8.9 - 11.1 mg/dLFTMC RemisolChloride [Moles/Vol]100 mmol/NWrc341 - 111 mmol/LFTMC RemisolCO2 [Moles/Vol]24 mmol/IQxfdkm60 - 31 mmol/LFTMC RemisolCreatinine [Mass/Vol]1.0 mg/dLNormal0.5 - 1.3 mg/dLFTMC RemisolGFR/1.73 sq M.predicted among blacks MDRD (S/P/Bld) [Vol rate/Area]mL/min/1.73 h4Asopkw>=59mL/min/1.73 m2FTMC Chem S GFR/1.73 sq M.predicted among non-blacks MDRD (S/P/Bld) [Vol rate/Area]59 mL/min/1.73 o8Vsgfkj>=59mL/min/1.73 m2FTMC Chem SGlucose [Mass/Vol]97 mg/dL Hfchqf20 - 199 mg/dLFTMC RemisolPotassium [Moles/Vol]4.0 mmol/LNormal3.5 - 5.3 mmol/LFTMC RemisolSodium [Moles/Vol]134 mmol/VBth258 - 145 mmol/LFTMC Remisol Urea nitrogen [Mass/Vol]14 mg/dLNormal5 - 21 mg/dLFTMC RemisolUrea nitrogen/Creatinine [Mass ratio]14 mg/yrZzefof44 - 20FTMC RemisolCOAGULATION Ordered By: Alona Dai on 45-75-4103cDJU Coag (PPP) [Time]31.1 kEsdbth64.1 - 36.5 second(s)FTMC Auto CoagINR Coag (PPP) [...] - 0.5 E9/L [facility] HemeAutoSSLymphocytes/100 WBC (Bld)31.4 %Ogsriq71.0 - 50.0 %FTMC HemeAutoSS Lymphocytes/Leukocytes Auto (Bld) [Pure # fraction]2.4 E9/LNormal1.0 - 4.0 E9/L [facility] HemeAutoSSMonocytes/100 WBC (Bld)7.8 %Normal4.0 - 14.0 %FTMC HemeAutoSS Monocytes/Leukocytes Auto (Bld) [Pure # fraction]0.6 E9/LNormal0.2 - 1.0 E9/L [facility] HemeAutoSSNeutrophils/100 WBC (Bld)59.1 %Myldyn72.0 - 75.0 %[facility] HemeAutoSS Neutrophils/Leukocytes Auto (Bld) [Pure # fraction]4.5 E9/LNormal2.0 - 7.5 E9/L [facility] HemeAutoSSHEMATOLOGYOrdered By: Alona Dai on 04-89-2026Ppjxlshqjkq distribution width (RBC) [Ratio]15.0 %High10.9 - 14.2 %FT[facility] HemeAutoSSHematocrit (Bld) [Volume fraction]42.8 %Sqgvgz85.0 - 46.0 %[facility] HemeAutoSSHemoglobin (Bld) [Mass/Vol]14.4 g/zLYyrgim05.0 - 16.0 gm/dLFTMC HemeAutoSSMCH (RBC) [Entitic mass]36.2 asXpey27.0 - 34.0 pgFTMC HemeAutoSSMCHC (RBC) [Mass/Vol]33.6 g/dL Xsxmwm15.4 - 36.0 gm/dLFTMC HemeAutoSSMCV (RBC) [Entitic vol]107.7 kXOext47.0 - 100.0 fLFTMC HemeAutoSSPlatelet mean volume (Bld) [Entitic vol]6.8 fLNormal6.4 - 10.8 fLFTMC HemeAutoSSPlatelets (Bld) [#/Vol]243.0 E9/HLfzdwi760.0 - 500.0 E9/L [facility] HemeAutoSSRBC (Bld) [#/Vol]4.0 E12/LLow4.3 - 5.9 E12/[facility] HemeAutoSSWBC corrected for nucl RBC Auto (Bld) [#/Vol]7.7 E9/LNormal4.0 - 11.0 E9/LFC HemeAutoSSCNOVon 34-03-7608MOXKPxvomu Visit (GENSMN) NATHANIEL MARCIAL ([id number]) 1975 F Date Time Provider Department 07/28/22 [...] Signed GENERAL SURGERY CLINIC NOTE Nathaniel Marcial [id number] HPI: Nathaniel Marcial is a 46 year [...] not recall but is following with a gore maker in 1 week. O: BP 125/89 Pulse [...] Noted Resolved Cellulitis [L03. (more content not included)...NormalGood Samaritan Hospital OVA AND PARASITE EXAMINATIONon 58-97-2255Xsd + Parasite ExamFinal reportNormal [facility] HospitalComment on above:Result Comment: These results were obtained using wet preparation(s) and trichrome stained smear. This test does not include testing for Cryptosporidium parvum, Cyclospora, or Microsporidia.Performed By: #### OVAPE #### [facility] [address] [place] [address] Dr. Jemima Costa 1CSt. [facility] on above:Result Comment: No ova, cysts, or parasites seen. . One negative specimen does not rule out the possibility of a parasitic infection.Performed By: #### OVAPE #### [facility] [address] [place] [address] Dr. Jemima FanCTOFERRIN FECAL QUANTon 36-00-4220Bmonvjumhlm, Fecal, Quant. <1.65Aminrb1.00-7.24Good Samaritan HospitalCommunson healthcare cad[facility] on above:Result Comment: Results verified by [...] bowel syndrome (IBS).Performed By: #### LACTFQ #### [facility] [address] [place] [address] Dr. Jemima Dc CULTUREon 15-70-0034Cqzgxwkpvjcyv CultureFinal reportNormal [facility] HospitalComment on above:Performed By: #### CXSTOOL #### [facility] [address] [place] [address] Dr. Jemima Narayan coli Shiga Toxin EIANegativeNoalNegativeGood Samaritan Hospital Comment on above:Performed By: #### CXSTOOL #### [facility] [address] [place] [address] Dr. Jemima Costa 1CommentCleveland Clinic Children's Hospital for RehabilitationComment on above:Result Comment: No Salmonella or Shigella recovered.Performed By: #### CXSTOOL #### [facility] [address] [place] [address] Dr. Jemima Costa Comment: No Campylobacter species isolated. Salmonella/Shigella ScreenFinal reportCleveland Clinic Children's Hospital for RehabilitationComment on above:Performed By: #### CXSTOOL #### [facility] [address] [place] [address] Dr. Jemima Diane. DIFF PCRon 2C. DIFFICILE PCRNegativeNormalNEGATIVEGood Samaritan HospitalComment on above:Performed By: #### CDIFPOC #### [facility] [address] [address] [address] Jemima Celis AUTO DIFFon [id number] #0.1 103/ulNormal0.0-0.1The [facility] HospitalComment on above:Performed By: #### CBC #### [facility] [address] [place] [address] Dr. Jemima PaulBasophils/100 WBC (Bld)1.0 %Normal0.2-2.0[facility] Comment on above:Performed By: #### CBC #### [facility] [address] [place] [address] Dr. Jemima Jensen #0.2 103/ulNormal0.0-0.7The [facility] HospitalComment on above: Performed By: #### CBC #### [facility] [address] [place] [address] Dr. Jemima Narayanosinophils/100 WBC (Bld)3.0 %Normal0.9-7.0[facility] Comment on above:Performed By: #### CBC #### [facility] [address] [place] [address] Dr. Jemima Narayanrythrocyte distribution width (RBC) [Ratio]12.4 %Qmvpbg50.0-15.0 The [facility] HospitalComment on above:Performed By: #### CBC #### [facility] [address] [place] [address] Dr. Jemima PaulHematocrit (Bld) [Volume fraction]43.4 %Finspw65.0-48.0The [facility] HospitalComment on above:Performed By: #### CBC #### [facility] [address] [place] [address] Dr. Jemima PaulHemoglobin (Bld) [Mass/Vol]14.8 g/gHVfdlxy85.0-16.0The [facility] HospitalComment on above:Performed By: #### CBC #### [facility] [address] [place] [address] Dr. Jemima Nava #0.04 10e3/ulCritically high0.00-0.03[facility] Comment on above:Performed By: #### CBC #### [facility] [address] [address] [address] Jemima Nava %0.6 %Critically high0.0-0.5The [facility] HospitalComment on above:Performed By: #### CBC #### [facility] [address] [address] [address] Jemima Luong #3.1 103/ulNormal1.2-3.8The [facility] HospitalComment on above:Performed By: #### CBC #### [facility] [address] [address] [address] Jemima Stephenshocytes/100 WBC (Bld)44.9 %Lembpm05.5-60.0The [facility] HospitalComment on above:Performed By: #### CBC #### [facility] [address] [place] [address] Dr. Jemima Morton DIFF REQNONormalThe [facility] HospitalComment on above: Performed By: #### CBC #### [facility] [address] [address] [address] Jemima Valladares (RBC) [Entitic mass]36.2 pgCritically high26.7-34.0The [facility] HospitalComment on above:Performed By: #### CBC #### [facility] [address] [address] [address] Jemima Byrd (RBC) [Mass/Vol]34.1 g/cVRponpj32.9-35.2The [facility] HospitalComment on above:Performed By: #### CBC #### [facility] [address] [address] [address] Jemima Marquez (RBC) [Entitic vol]106.1 fLCritically high81.0-99.0The [facility] HospitalComment on above:Performed By: #### CBC #### [facility] [address] [place] [address] Dr. Jemima Chinchilla #0.4 103/ulNormal0.3-0.8The [facility] HospitalComment on above:Performed By: #### CBC #### [facility] [address] [place] [address] Dr. Jemima Moffettocytes/100 WBC (Bld)6.2 %Normal1.7-12.0[facility] Comment on above:Performed By: #### CBC #### [facility] [address] [place] [address] Dr. Jemima VallesUT #3.1 103/ulNormal1.4-6.5The [facility] HospitalComment on above:Performed By: #### CBC #### [facility] [address] [place] [address] Dr. Jemima Vallesutrophils/100 WBC (Bld)44.3 %Ffpwxw08.0-75.0The [facility] HospitalComment on above:Performed By: #### CBC #### [facility] [address] [place] [address] Dr. Jemima PaulPlatelet mean volume (Bld) [Entitic vol]8.3 fLCritically low 9.5-13.5The [facility] HospitalComment on above:Performed By: #### CBC #### [facility] [address] [place] [address] Dr. Jemima PaulPLT288 103/itHaqwvd413-251Xpn [facility] HospitalComment on above: Performed By: #### CBC #### [facility] [address] [place] [address] Dr. Jemima PaulRBC4.09 106/ulCritically low4.20-5.40The [facility] HospitalComment on above:Result Comment: TEAR DROP CELLS 3+, MACROCYTOSIS 3+Performed By: #### CBC #### [facility] [address] [place] [address] Dr. Jemima AyonBC7.0 103/ulNormal4.0-11.0The [facility] HospitalComment on above: Performed By: #### CBC #### [facility] [address] [place] [address] Dr. Jemima PaulCT ABD/PELV W CONon [id number] ABD/PELV W CONEXAMINATION: CT ABD/PELV W CON [...] Electronically authenticated by: HELENA ANDERSEN Date: 2022-03-17 00:46[facility] for RehabilitationPROF CHEM 8 (BAS METB)on [id number] gap [Moles/Vol]14.6 mmol/LNormalGood Samaritan HospitalComment on above:Performed By: #### BMP #### [facility] [address] [place] [address] Dr. Jemima PaulCalcium [Mass/Vol]8.6 mg/dLNormal8.5-10.1[facility] Comment on above:Performed By: #### BMP #### [facility] [address] [address] [address] Jemima PaulChloride [Moles/Vol]100 mmol/LRsyrzj28-952GugGood Samaritan Hospital Comment on above:Performed By: #### BMP #### [facility] [address] [place] [address] Dr. Jemima PaulCO2 [Moles/Vol]24.3 mmol/VOcgtvk21.0-32.0[facility] Comment on above:Performed By: #### BMP #### [facility] [address] [address] [address] Jemima PaulCreatinine [Mass/Vol]0.99 mg/dLNormal0.55-1.02The Cherrington Hospitalment on above:Performed By: #### BMP #### [facility] [address] [address] [address] Onofre ChangEGFR-AF CAYMAN ISLANDER>60Normal>=60The [facility] HospitalComment on above:Performed By: #### BMP #### [facility] [address] [address] [address] Onofre ChangEGFR-NON AF GREQEDBD81 mL/min/1.90x3Kdbgma>=60The [facility] HospitalCommunson healthcare [facility] on above:Performed By: #### BMP #### [facility] [address] [address] [address] Jemima PaulGlucose [Mass/Vol]108 mg/dLCritically lsrv73-169Xpw Cherrington Hospitalment on above:Performed By: #### BMP #### [facility] [address] [address] [address] Jemima PaulPotassium [Moles/Vol]3.9 mmol/LNormal3.5-5.1[facility] Comment on above:Performed By: #### BMP #### [facility] [address] [address] [address] Jemima PaulSodium [Moles/Vol]135 mmol/LCritically ycr582-876Iba Cherrington Hospitalment on above:Performed By: #### BMP #### [facility] [address] [address] [address] Jemima PaulUrea nitrogen [Mass/Vol]11.0 mg/dLNormal7.0-18.0The [facility] on above:Performed By: #### BMP #### [facility] [address] [address] [address] Jemima PaulUrea nitrogen/Creatinine [Mass ratio]11.1 mg/mgNormalThe [facility] HospitalComment on above:Performed By: #### BMP #### [facility] [address] [place] [address] Dr. Jemima Rouse Joint Arthro/Inj: R glenohumeralCbrecksville va / [facility] hospitaland [facility] Vital Signs Date TimeVital SignValuePerforming MtppqsmtaRjnpvnhf46-13-1984 18:35-0400Body nevrzikmdkk40.88 [degF]Kaylinn Dokken [address] [place], [place] 8754405-11-2025 18:35-0400 Diastolic blood mm[Hg]Kaylinn Dokken [address] [place], [place] 8754405-11-2025 18:35-0400Heart rate97 /minKaylinn Dokken [address] [place], [place] 8754405-11-2025 18:35-0400 Respiratory rate18 /minKaylinn Dokken [address] [place], [place] 8754405-11-2025 18:35-4681XzL2% (BldA) [Mass fraction]97 %Kaylinn Dokken [address] [place], [place] 8754405-11-2025 18:35-0400 Systolic blood dsrwfeim029 mm[Hg]Kaylinn Dokken [address] [place], [place] 8754403-03-2024 19:43-0500Body fhizmpzrtuq13.42 [degF]Antonio Lenard [address] [place], [place] 9609603-03-2024 19:43-0500 Diastolic blood mm[Hg]Antonio Lenard [address] [place], [place] 9609603-03-2024 19:43-0500Heart iumt821 /minNoah Lenard [address] [place], [place] 9609603-03-2024 19:43-0500 Respiratory rate16 /minNoah Lenard [address] [place], [place] 9609603-03-2024 19:43-3017TfJ8% (BldA) [Mass fraction]95 %Antonio Weinberg [address] [place], [place] 9609603-03-2024 19:43-0500 Systolic blood rppggydk510 mm[Hg]Antonio Weinberg [address] [place], [place] 9609601-19-2024 18:29-0500 Diastolic blood mm[Hg]Bashir Loera [address] [place], [place] 8754401-19-2024 18:29-0500Heart rate71 /minBashir Loera [address] [place], [place] 8754401-19-2024 18:29-0500Mean blood eycjwrwm417 mm[Hg]Bashir oLera [address] [place], [place] 8754401-19-2024 18:29-0500 Respiratory rate18 /minBashir Loera [address] [place], [place] 8754401-19-2024 18:29-8182PrN7% (BldA) [Mass fraction]97 %Bashirolinda Loera [address] [place], [place] 9609601-19-2024 18:29-0500 Systolic blood xjqefrus083 mm[Hg]Bashir Loera [address] [place], [place] 8754401-19-2024 15:52-0500Body juaxkcebbtu75.24 [degF]Bashir Loera [address] [place], [place] 9609601-19-2024 15:52-0500 Diastolic blood wsncloho21 mm[Hg]Bashir Loera [address] [place], [place] 9609601-19-2024 15:52-0500Heart rate88 /minBashir Loera [address] [place], [place] 9609601-19-2024 15:52-0500 Respiratory rate18 /minBashir Loera [address] [place], [place] 9609601-19-2024 15:52-1606OzM1% (BldA) [Mass fraction]96 %[facility]01-19-2024 15:52-0500 Systolic blood foacftia246 mm[Hg]Bashir [facility]07-06-2023 10:59-0400Body kwlijo197.9 cmAlllatrice Louebe PA-C Work Phone: [facility]07-06-2023 10:59-0400Body reawvr63.97 kgVerónica Skebe PA-C Work Phone: [facility]05-09-2023 11:00-0400Heart rate89 /min Nai Jenningse [address] [place], [place] 9609605-09-2023 11:00-0400 Respiratory rate16 /minNai Ramires [address] [place], [place] 9609605-09-2023 10:04-0400 Hourly RoundingNai Keyla [address] [place], [place] 9609605-09-2023 10:04-0400 Promise to ReturnJovilla Keyla [address] [place], [place] 9609605-09-2023 10:03-0400 Diastolic blood zldvvoya22 mm[Hg]Nai Jenningse [address] [place], [place] 9609605-09-2023 10:03-0400Heart rate91 /minNai Keyla [address] [place], [place] 9609605-09-2023 10:03-0400Mean blood htugvjxl76 mm[Hg]Nai Ramires [address] [place], [place] 9609605-09-2023 10:03-0400 Respiratory rate20 /minJovilla Keyla [facility]05-09-2023 10:03-7178IhQ1% (BldA) [Mass fraction]99 %Nai Ramires [address] [place], [place] 9609605-09-2023 10:03-0400 Systolic blood lwtmwlcu607 mm[Hg]Nai Ramires [address] [place], [place] 9609605-09-2023 09:40-0400Body ullfdiikgni38.24 [degF]Nai Ramires [address] [place], [place] 9609605-09-2023 09:40-0400 Diastolic blood yfrorowp24 mm[Hg]Nai Ramires [address] [place], [place] 9609605-09-2023 09:40-0400Heart rate94 /minNai Ramires [address] [place], [place] 9609605-09-2023 09:40-0400 Hourly RoundingNai Ramires [address] [place], [place] 9609605-09-2023 09:40-0400 Promise to ReturnNai Ramires [address] [place], [place] 9609605-09-2023 09:40-0400 Respiratory rate18 /minNai Ramires [address] [place], [place] 9609605-09-2023 09:40-5404QzG3% (BldA) [Mass fraction]98 %Nai Ramires [address] [place], [place] 9609605-09-2023 09:40-0400 Systolic blood xnipvxfr254 mm[Hg]Nai Ramires [address] [place], [place] 9609602-18-2023 17:25-0500 Hourly [facility]ingNate [facility]02-18-2023 17:25-0500 Promise to ReturnNate Gavin [facility]02-18-2023 16:58-0500Heart rate70 /minNate [facility]02-18-2023 16:58-1284IhE5% (BldA) [Mass fraction]97 %Nate Gavin [address] [place], [place] 5497902-18-2023 16:57-0500Body kolqxyezfkr91.52 [degF]Nate Gavin [address] [place], [place] 2879002-18-2023 16:57-0500 Diastolic blood mm[Hg]Nate Gavin [address] [place], [place] 2879002-18-2023 16:57-0500Mean blood nxfuljqw79 mm[Hg]Nate Gavin [address] [place], [place] 2879002-18-2023 16:57-0500 Systolic blood meeoawtt362 mm[Hg]Nate Gavin [address] [place], [place] 5497902-18-2023 16:25-0500 Hourly RoundingNate Gavin [address] [place], [place] 2879002-18-2023 16:25-0500 Promise to ReturnNate Gavin [address] [place], [place] 2879002-18-2023 16:00-0500 Respiratory rate15 /minNate Gavin [address] [place], [place] 2879002-18-2023 15:16-0500 Hourly RoundingNate Gavin [address] [place], [place] 2879002-18-2023 15:16-0500 Promise to ReturnNate Gavin [address] [place], [place] 2879002-18-2023 11:45-0500Body ixipiomoegf53.34 [degF]Nate Gavin [address] [place], [place] 2879002-18-2023 11:45-0500 Diastolic blood snmlcsyj21 mm[Hg]Nate Gavin [address] [place], [place] 2879002-18-2023 11:45-0500Heart rate79 /minNate Gavin [address] [place], [place] 2879002-18-2023 11:45-0500Mean blood mm[Hg]Nate Gavin [address] [place], [place] 2879002-18-2023 11:45-0500 Respiratory rate14 /Nick Gavin [address] [place], [place] 2879002-18-2023 11:45-3365DqF4% (BldA) [Mass fraction]96 %Nate Gavin [address] [place], [place] 2879002-18-2023 11:45-0500 Systolic blood mm[Hg]Nate Gavin [address] [place], [place] 2879002-18-2023 11:35-0500 Diastolic blood ezhdujpg66 mm[Hg]Nate Gavin [address]02-18-2023 11:35-0500Heart rate61 /Nick Gavin [address] [place], [place] 2879002-18-2023 11:35-0500Mean blood cjmeakzg08 mm[Hg]Nate Gavin [address] [place], [place] 2879002-18-2023 11:35-0500 Respiratory rate16 /Nick Gavin [address] [place], [place] 2879002-18-2023 11:35-0500 Systolic blood zdcespby45 mm[Hg]Nate Gavin [address] [place], [place] 2879002-18-2023 11:30-0500Mean blood szvgqfac49 mm[Hg]Nate Gavin [address] [place], [place] 2879002-18-2023 11:30-0500 Respiratory rate18 /Nick Gavin [address] [place], [place] 2879002-18-2023 11:20-0500Body tmwnkzwbmyj78.34 [degF]Nate Gavin [address] [place], [place] 2879002-18-2023 11:15-0500 Respiratory rate11 /[facility]02-18-2023 11:10-0500 Respiratory rate13 /[facility]02-18-2023 07:01-0500Body yjsjwjgkshr29.8 [degF][facility]02-18-2023 07:01-0500Heart rate73 /Nick Gavin [address] [place], [place] 2879002-18-2023 06:46-0500Body qzsmgcdjkuz30.8 [degF][facility]02-18-2023 06:46-0500Heart rate69 /Nick Gavin [address] [place], [place] 2879011-03-2022 10:58-0400Body hubnhh685.9 Doris Cabello MD Work Phone: 1(216)343-[address] [place], [place] 6092811-03-2022 10:58-0400Body temperature 97.81 [degF]Ronan Cabello MD Work Phone: 1(216)592-[address] [place], [place] 1172111-03-2022 10:58-0400Body .15 kgRonan Cabello MD Work Phone: 1(216)811-[address] [place], [place] 6092811-03-2022 10:58-0400Diastolic blood bhtuouqw06 mm[Hg]Ronan Cabello MD Work Phone: 1(216)887-[address] [place], [place] 6092811-03-2022 10:58-0400Heart rate90 /min Ronan Cabello MD Work Phone: ZReg[facility] EastZljcgc60-57-1673 10:58-0400Respiratory rate 12 /minRonan Cabello MD Work Phone: OReg[facility] EastDtzzne63-02-3591 10:58-0400Systolic blood cegtdblx657 mm[Hg]Ronan Cabello MD Work Phone: QReg[facility] EastYebdgk01-44-6150 14:00-0400Body qzkpto813.4 cmDavid Hykes Other [employer] Other 08-10-2022 14:00-0400Body mass index (BMI) [Ratio] 25.97 kg/u2Piecyjavier Vasquez Other [employer] Other 08-10-2022 14:00-0400Body ljjqre92.33 kgDajavier Vasquez Other [employer] Other 08-10-2022 14:00-0400Diastolic blood vghreovp36 mm[Hg] Gale Vasquez Other [employer] Other 08-10-2022 14:00-0400Respiratory rate20 /minDjuan jose Vasquez Other [employer] Other 08-10-2022 14:00-0400Systolic blood kgughtwg644 mm[Hg] Gale Vasquez Other [employer] Other 07-07-2022 12:03-0400Body zxgoyxtguke18.06 [degF] [facility]07-07-2022 12:03-0400Diastolic blood wykpoedj03 mm[Hg][facility]07-07-2022 12:03-0400Heart ould990 /minC[facility] 03-31-2022 12:03-0400Respiratory rate18 /minC[facility]07-07-2022 12:03-5073CyM2% (BldA) [Mass fraction]100 %[facility]07-07-2022 12:03-0400Systolic blood ncggefjx881 mm[Hg][facility]04-09-2022 19:52-0400Diastolic blood hjohzagn18 mm[Hg]Kofi Castellano [address]04-09-2022 19:52-0400Heart rate97 /minKofi Castellano [address] [place], [place] 9609604-09-2022 19:52-0400 Respiratory rate18 /minKofi Castellano [address] [place], [place] 8754404-09-2022 19:52-6076CfT6% (BldA) [Mass fraction]97 %Kofi Castellano [address]04-09-2022 19:52-0400 Systolic blood xvracong167 mm[Hg]Kofi Castellano [address] [place], [place] 8754404-09-2022 16:50-0400Body duqomxrxrgw88.42 [degF]Kofi Castellano [address] [place], [place] 8754404-09-2022 16:50-0400 Diastolic blood pizauoef92 mm[Hg]Kofi Castellano [address] [place], [place] 8754404-09-2022 16:50-0400Heart uoqd158 /minKofi Castellano [address] [place], [place] 9609604-09-2022 16:50-0400 Respiratory rate18 /minKofi Castellano [address] [place], [place] 9609604-09-2022 16:50-0597KqN3% (BldA) [Mass fraction]97 %Kofi Castellano [address] [place], [place] 9609604-09-2022 16:50-0400 Systolic blood mm[Hg]Kofi Castellano [address] [place] [address] Encounters Encounter DateEncounter TypeCare ProviderFacilityStart: 90-43-5304kvhraknoeyYqxl C LinkFacility:FM MilanStart: 07-31-2025 End: 05-30-4399pjtlxsmpngRjwq C LinkFacility:FTMCStart: 07-11-2025 End: 96-35-2662blsjleiyrqSI Adam C LinkFacility:[facility]art: 07-11-2025 End: 37-29-0167Ixenaog encounter procedureAdam C Link [phone]-QzyipTrihealth [facility]ccull[facility] Start: 07-02-2025 End: 67-98-3044cmjdbuamebYchc C LinkFacility:FTMCStart: 06-27-2025 End: 90-39-3640kgwcztwscrAXT-C MAIA SHEPARDFacility:FTMCStart: 06-27-2025 End: 03-39-9352uhpvulehobVJR-C MAIA SHEPARDFacility:[facility]: 06-27-2025 End: 23-61-5103Wdyquty encounter procedureMAIA SHEPARD [phone]-RqypcTrihealth Mccullough-Hy[facility] Hospital Start: 06-26-2025 End: 89-41-2194bcjuofkuzcGL Adam C LinkFacility:CD:[id number]: 06-25-2025 End: 97-83-4937hecuzlmgauGMPKXU R CIERSEZWSKIFacility:[facility]: 06-25-2025 End: 22-70-8469Rvqlicg encounter procedureMAIA SHEPARD [phone]-UkmyfTrihealth Mccullough-Hyde Memorial Hospital Start: 06-23-2025 End: 47-86-5909uvucngfsjpWdteprj A BRESLINFacility:FTMCStart: 06-23-2025 Emergency department patient visitDO Antonio WeinbergFacility:FTMCStart: 06-23-2025 End: 70-65-0129mmklttvsjpNF Adam C LinkFacility:CD:[id number]: 06-20-2025 End: 78-30-3609nurkitvyzhMtmurzs A BRESLINFacility:FTMCStart: 06-20-2025 Emergency department patient visitMani PalmerFacility:FTWE[facility] CENTERtart: 06-18-2025 End: 32-09-4840wkgvmbnjitVVU-C MAIA SHEPARDFacility:[facility]art: 06-18-2025 End: 66-87-6628Puparjp encounter procedureMAIA SHEPARD [phone]-TnpnuTrihealth Mccullough-[facility] Start: 06-13-2025 End: 51-13-4538njxjkxrygjJfay C LinkFacility:[facility]: 06-13-2025 End: 31-08-6145Xiouxfq encounter procedureAdam C Link [phone]-YhrusTrihealth Mccullough-Hyde Memorial Hospital Start: 06-10-2025 End: 17-58-0643lxoijbbcniBX German C LinkFacility:[facility]: 06-10-2025 End: 21-10-3747Vtzjidx encounter procedureAdam C Link [phone]-TxvasTrihealth Mccullough-Hyde [facility] Hospital Start: 06-05-2025 End: 63-62-2419Rfotrdavw department patient visitMani Palmer Facility:[facility]tart: 06-03-2025 End: 60-80-9880hiriundoxnFFQR NONEFacility:FTMCStart: 05-28-2025 End: 60-73-6001oyqltciddfTrbellr A. MouchliFacility:Heidi DHStart: 05-28-2025 End: 74-19-5113Hibhhch encounter procedureBeth Quinones [phone]-QcylmMary [facility] Start: 89-19-3273zujqgkszclAznc LinkFacility:Radha Garibay DHStart: 05-23-2025 End: 60-94-7123Uyko adult monitoring check doneAdam C Link [phone]-XcgfdTrihealth Mccullough-Hy[facility] Hospital Start: 05-23-2025 End: 38-63-2684vekgyjzledFoid C LinkFacility:[facility] CenterStart: 05-23-2025 End: 54-37-4504Mspwhci encounter procedureAdam C Link [phone]-YkfhwTrihealth Mccullough-Hy[facility] Hospital Start: 05-02-2025 End: 55-57-3892dluwdejdbfQfwa C LinkFacility:[facility] CenterStart: 05-02-2025 End: 21-19-6115Uckfrcc encounter procedureAdam C Link [phone]-SupwiTrihealth Mccullough-Hy[facility] Hospital Start: 75-23-3129icfkssdagfAnfg LinkFacility:[facility] Start: 04-22-2025 End: 39-19-1688pernhvyqchUtpz C LinkFacility:[facility] CenterStart: 04-22-2025 End: 94-48-4778Ayykgao encounter procedureAdam C Link [phone]-LhvxwTrihealth Mccullough-Hyde Memorial Hospital Start: 04-21-2025 End: 01-48-0673uanbxquvvwRhaq C LinkFacility:[facility]ENTERtart: 40-65-5115qyyyzgcoxp Jaspreet CortezFacility:[facility] Centertart: 03-18-2025 End: 08-40-9710ymlhydiagsRbcp C LinkFacility:[facility] CenterStart: 03-18-2025 End: 80-26-4574Ufdrrec encounter procedureAdam C Link [phone]-DxnevTrihealth Mccullough-Hyde Memorial Hospital Start: 03-04-2025 End: 51-15-0073Hnoqjamxck OrdersAdam C Link DO Work Phone: Referring PhysicianComment on above:C. difficile enteritis (Primary Dx)Start: 02-27-2025 End: 58-23-4921crmiasignrXwey C LinkFacility:FM MilanStart: 02-27-2025 End: 21-76-6074Xgpaqsl encounter procedureAdam C Link [phone]-KipbmMary [facility] Start: 02-20-2025 End: 50-14-7416kevjyktdptKVOAUniversity Hospitals Samaritan Medical Centertart: 02-05-2025 End: 55-32-5341sozemccutbXWEIUniversity Hospitals Samaritan Medical Centertart: 02-04-2025 End: 07-69-5541vkknmjfrfdZCN MARRY Yury FRANCOISEFacility:FT BellevueStart: 02-02-2025 End: 35-13-2667Dnbgvdndf department patient visitN[facility] Start: 12-21-2024 End: 68-23-9516JbdrtaHivsj M Ruggles MD Work Phone: NONJ NE FMComment on above:Other constipation; Generalized abdominal painStart: 11-16-2024 End: 25-09-5086HbjymtYzjxd M Ruggles MD Work Phone: NOTA NE FMComment on above:Other osteoporosis without current pathological fracture ([facility])Start: 07-19-2024 End: 07-74-2237ojhvwmrjdmSIOKTTB [facility] Start: 11-26-2023 End: 40-15-2906Kdbzmhlew department patient visitAnton[facility] Start: 10-17-2023 End: 63-18-1515ctnknagdzoCKAEXKevin Rowan AvailableStart: 10-13-2023 End: 34-85-8372Yltkdpudd department patient visitBashir [facility] Start: 10-13-2023 End: 31-66-7862fdeqckcoojQVWDRFSS J HARTNot AvailableStart: 08-30-2023 End: 18-69-0094Ijlyokp encounter [facility]DA[facility] Start: 08-29-2023 End: 90-15-7835almnofmqddEONIDKXI J HARTNot AvailableStart: 05-31-2023 End: 25-88-6474Ohevbne encounter [facility] Start: 05-31-2023 End: 00-59-2019Dtmpatgbg Result EncounterGracy Medina MD Work Phone: noms External Department UnsolicitedStart: 05-31-2023 End: 16-08-2561Fipoyweky Result EncounterGracy Medina MD Work Phone: noms External Department UnsolicitedStart: 05-11-2023 Telephone encounterSharita Myers MD Work Phone: [facility] InstituteComment on above:Schedule SurgeryPatient Question (Offering patient surgical date.)Start: 04-10-2023 End: 61-40-6822Untppnaia Result EncounterGeneric External Data ProviderNOMS External Department UnsolicitedStart: 04-10-2023 End: 53-91-8029Whrmocbzx Result EncounterGeneric External Data ProviderNOMS External Department UnsolicitedStart: 04-10-2023 End: 85-08-5330fbgsvkmoabUTXXH RUGGLESFacility:[facility] HospitalStart: 04-10-2023 End: 29-12-2335Xcdfijw encounter Rolo Myers MD Work Phone: [facility] HOSPITALComment on above: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); Incomplete tear of right rotator cuff, unspecified whether traumatic; Biceps tendonitis on rightStart: 03-27-2023 End: 58-65-1262Gupcqqxeh Result EncounterGracy Medina MD Work Phone: noms External Department UnsolicitedStart: 03-27-2023 End: 50-79-7397Stdmsbxwo Result EncounterGracy Medina MD Work Phone: noms External Department UnsolicitedStart: 03-27-2023 End: 90-40-8319aziceycqdvYPLQNbzirntt:[facility]art: 03-27-2023 End: 41-52-3274Ajosjay encounter procedureAureliano Vann DPM Work Phone: PodiatryComment on above: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, subsequent encounter (Primary Dx); Osteoporosis, unspecified osteoporosis type, unspecified pathological fracture presence; PAD (peripheral artery disease) (HCC); Allodynia; Nicotine use disorder, F17.2Start: 03-27-2023 End: 26-74-1270Bwbwfxkufq hospital visit by physicianOrth General Xray A21 RadiologyComment on above:Pain [R52]Start: 29-78-8839Pvubei OnlyNo One (Historical)Referring PhysicianComment on above:Pain (Primary Dx)Start: 30-71-9322xyjyaogmabHLTCO PARKERFacility:C7Uhjmv: 02-06-2023 End: 15-90-0693Qjsbklm encounter procedureN[facility] Start: 01-31-2023 End: 86-46-7620Gsyjevlvw department patient visitNai [facility] Start: 01-11-2023 End: 41-31-4909psxihjzdpmJQZTYPB PROVIDERFacility:METROHealthStart: 12-13-2022 End: 28-56-9867bdwzzforwkGcbshta Ditty Other noUB. Other Start: 55-29-9618Anduiumpu encounterCameromook Mena Palliative CareStart: 11-15-2022 End: 85-05-2639hwfdexkzagLD TK LEVI .Facility:X7Xcpsq: 11-12-2022 End: 58-33-2270NtjvypjlmgqBeiig A [facility] Start: 08-02-2022 End: 80-81-3292skdxnxfwzdNW MISTY BENITEZ .Facility:F0Sctvx: 07-28-2022 End: 71-89-1983yxmdrznvgqOUFMO RUGGLESFacility:[facility]iltontart: 07-28-2022 End: 98-72-5171Ggpqmwy encounter procedureLuctre Cabello MD Work Phone: General SurgeryComment on above:Incisional hernia, without obstruction or gangrene (Primary Dx)Start: 62-59-9705paszrgzzhzAO AGUS LEON .Facility:S7Lfojm: 05-11-2022 End: 90-13-7526oxoxlnuproUBMZA L HYKES JRFacility:F7Utclt: 05-04-2022 End: 43-52-9313qtmhkdgoscYaobx Hykes Other noUB. Other Start: 70-88-8331Flfqzm outpatient visit 25 minutes Gale Sheehan GastroenterologyStart: 04-18-2022 End: 90-00-0994xfashscnksPHQQKS RUGGLESFacility:G4Twjul: 03-31-2022 End: 03-84-2197Qgfrfqlvq department patient visitAstrit Meaghan [facility] Start: 03-24-2022 End: 06-19-0517Oehbazh encounter procedureGracy [facility]ina [facility] Start: 03-16-2022 End: 02-01-7424gvbjsrehhzSLXKEN RUGGLESFacility:U8Kpiqf: 01-01-2022 End: 63-70-9583Tlgakjxjg department patient visitTim [facility] Start: 03-29-2018 End: 51-34-1074BigneajgugYTCOCVJ PHYSICIANFacility:[facility] Procedures DateProcedureProcedure DetailPerforming ClinicianStart: 11-30-6345KR FOOT 3+ VIEWS Sheldon Medina MD Work Phone: start: 59-60-7172Ftxthyfkax examination foot 2 views Gracy Medina MD Work Phone: start: 42-70-1151Dg upper extremity w/o contrast materialGeneric External Data ProviderStart: 76-36-7356Rywdqkrvpacoxk aspir&/inj major jt/bursa w/o usAllyson Lj Duarte PAPritiC Work Phone: Start: 68-57-5812Cmzko ankle complete minimum 3 views Aureliano Vann DPM Work Phone: Start: 45-89-1914PF ANKLE 3V AP/LAT/OBL LTGracy Medina MD Work Phone: start: 62-80-0294YthiepamixzOmopa Ruggles MD Work Phone: start: 44-58-2455RfresbdwbhpPopwq Ruggles MD Work Phone: appendectomyTim Samuel [phone]-Evemear x2Tim Samuel ColonoscopyTim Samuel HysterectomyTim Samuel Repair of recurrent inguinal herniaAdam Aguila Comment on above:multiplespine surgery for scoliosisKofi Castellano Plan of Treatment DateCare ActivityDetailAuthorStart: 75-97-7778Ueoqx microalbumin profile DTaP,Tdap,Td Vaccine (3 - Td or Tdap)[facility]: 27-13-1637Noqtgmpsv for malignant neoplasm of colonNOMS HealthcareStart: 99-41-5194aypxxeojip AmbulatoryFacility:FM MilanStart: 45-64-5041Bzgdlloml vaccinationCity Hospitaltart: 06-33-0786Isywglxi Vaccine (1 of 2)Shingrix Vaccine (1 of 2) [facility]: 23-78-9243Rcliz-19 Vaccine ( season)Covid-19 Vaccine ( season)[facility]: 76-31-3314Jrjodnxqw vaccinationInfluenza Vaccine (#1)[facility] CenterStart: 98-87-4591KBPSFROC SCREEN DIABETES SCREENCity Hospitaltart: 70-43-2583Vadmemsh ScreeningDiabetes ScreeningCity Hospitaltart: 09-29-2023Medicare Annual Wellness (AWV)Medicare Annual Wellness (AWV)[facility] CenterStart: 96-72-9994Fkdmavifd vaccination [facility]: 81-57-1631Zhlfntezb for malignant neoplasm of breast MammogramNOMS HealthcareStart: 30-66-1827LPYQKXQHJL ASSESSMENTDEPRESSION ASSESSMENTCity Hospitaltart: 81-08-9099Mbpciwqln vaccinationINFLUENZA (#1) [facility]: 23-85-6526IGXKBBMUMB ASSESSMENTDEPRESSION ASSESSMENT [facility]: 90-22-4597CFIPZ-19 VACCINE (3 - Booster for Pfizer series)COVID-19 VACCINE (3 - Booster for Pfizer series)[facility]: 88-93-2245DJOGI-19 VACCINE (3 - Pfizer series)COVID-19 VACCINE (3 - Pfizer series)[facility]: 36-15-8836ATZJWQTPDKJZ (2 - PCV)PNEUMOCOCCAL (2 - PCV)[facility]: 32-56-6314Nkvepdsrsjla Vaccine: 50+ (2 of 2 - PCV) Pneumococcal Vaccine: 50+ (2 of 2 - PCV)[facility]: 2019 COLOGUARD (FIT-DNA)COLOGUARD (FIT-DNA)[facility]: 2019 ColonoscopyCOLONOSCOPYCity Hospitaltart: 76-91-7475GUXUXQILZV CANCER SCREENINGCOLORECTAL CANCER SCREENINGCity Hospitaltart: 95-64-2426MN COLONOGRAPHYCT COLONOGRAPHYCity Hospitaltart: 85-83-2716OJCAR OCCULT BLOOD FECAL OCCULT BLOODCity Hospitaltart: 81-84-6399Iepth panelLipid Screening [facility]: 08-08-0469QPZSA SCREENLIPID SCREENCity Hospitaltart: 21-04-7575Jdozjkyse for malignant neoplasm of colonCity Hospitaltart: 07-98-0601QBTQVKNWBZVUOPRCMCQIZYTJMRTbvrhdthf ClinicStart: 91-41-8346Ktpbuguajcm MAMMOGRAMCity Hospitaltart: 45-14-7512Ftmatmqjq for malignant neoplasm of breastMammogram ScreeningCity Hospitaltart: 76-61-6334WSH TESTINGHPV TESTING [facility]: 92-77-7270MKX TESTINGPAP TESTINGCity Hospitaltart: 79-39-3830Fsigbzrbv for malignant neoplasm of cervixCervical Cancer Screening [facility]: 06-67-2878Xihbahzps B Vaccine (1 of 3 - 19+ 3-dose series)Hepatitis B Vaccine (1 of 3 - 19+ 3-dose series)[facility]: 67-98-1884Qwtfv microalbumin profileDTAP,TDAP,TD (1 - Tdap)[facility] Start: 95-93-0908Jayzufj ScreeningAnxiety ScreeningCity Hospitaltart: 79-72-6125Dhoiiuacuf ScreeningDepression ScreeningCity Hospitaltart: 22-32-7400TOTSNJUCC B (1 of 3 - 3-dose series)HEPATITIS B (1 of 3 - 3-dose series)[facility]: 66-82-7562Xeztlakia for malignant neoplasm of colonSS[facility] End: 00-05-1786SOC LEG UNL VAS LABPVR LEG UNL VAS LAB Vascular Lab Routine PAD (peripheral artery disease) (HCC) 1 Occurrences starting 03/27/2023 until 03/27/2024[facility] Work Phone: Comment on above:1 Occurrences starting 03/27/2023 until 03/27/2024 End: 49-94-9521SK ANKLE GENERAL 3V AP/LAT/OBL LEFTXR ANKLE GENERAL 3V AP/LAT/OBL LEFT Radiology Routine Pain 1 Occurrences starting 03/08/2023 until 04/06/2024 [facility] Work Phone: Comment on above:1 Occurrences starting 03/08/2023 until 04/06/2024 End: 64-65-4802DQ SHOULDER GENERAL 3V OR MORE AP/TRUE AP/OTHER RIGHTXR SHOULDER GENERAL 3V OR MORE AP/TRUE AP/OTHER RIGHT Radiology Routine Avascular necrosis of righthumeral head (HCC) 1 Occurrences starting 04/10/2023 until 05/09/2024 [facility] Work Phone: Comment on above:1 Occurrences starting 04/10/2023 until 05/09/2024XR SHOULDER GENERAL 3V OR MORE AP/TRUE AP/OTHER RIGHTXR SHOULDER GENERAL 3V OR MORE AP/TRUE AP/OTHER RIGHT Radiology Routine Avascular necrosis of righthumeral head (HCC) 04/10/2023 12:24 PM [facility] Work Phone: [facility] Immunizations Immunization DateImmunizationNotesCare LaeglganDvdlrlut35-25-0135rplzupjhre, tetanus toxoids and pertussis vaccineGracy Medina MD Work Phone: [facility] CenterXbkbojtxtk96-80-0231udqptmg toxoid, reduced diphtheria toxoid, and acellular pertussis vaccine, adsorbedGracy Medina MD Work Phone: [facility] CenterGxgegkxvqg80-59-6933FWWJE-95 original vaccine, age 12+ yr, monovalent ([employer] - PURPLE TOP)Ronan Cabello MD Work Phone: RRegency Hospital [facility] EastFampnd79-51-0703PQQHZ-74 original vaccine, age 12+ yr, monovalent ([employer] - PURPLE [facility])Ronan Cabello MD Work Phone: VRegency Hospital [facility] EastYzhvde69-69-0189wnibhxfsnmhg polysaccharide vaccine, 23 valentRonan Cabello MD Work Phone: FRegency Hospital [facility] EastMyhpmx33-00-4701tcoynasi influenza, intradermal, preservative freeRonan Cabello MD Work Phone: [facility]and Ouxfmf69-76-4271bghjzfjob virus vaccine, unspecified formulationGracy Medina MD Work Phone: [phone]-JjnzuAdams [facility] 89-20-0239rosuqytyu virus vaccine, unspecified formulationRonan Cabello MD Work Phone: TRegency Hospital Cleveland EastNppred88-36-0592nxveptdzj, unspecified formulationAdam Link [phone]-GprktAdams County Regional Medical Center 88-36-2541jpixildpq virus vaccine, unspecified formulationAdam Link [phone]-RpiveAdams County Regional Medical Center 23-21-8606txffjrcbq, seasonal, injectableRonan Cabello MD Work Phone: EReg[facility] East Payers DatePayer CategoryPayerPolicy [id number]-pay2022Medicaid [id number] 2015Medicare [id number] Health Insurance [id number] 2.840.1.710896.3.579.2.95197-20-0427 [id number] 2.16.840.1.013016.3.57[id number] 2.16.840.1.010412.3.579.2.05440-87-1371Bggmeng3875240 2.16.840.1.808231.3.579.[id number] 2.16.840.1.987878.3.57[id number] 2.16.840.1.770715.3.57[id number] 2.16840.1.557744.3.579.2.67402-12-1092Rorswim1150611 2.16840.1.788513.3.579.2.12647-39-8721Nuacjrq9432415 2.840.1.544716.3.579.2.593874-87-2055Xtbwnoq2334184 2.16.840.1.267252.3.579.2.798580-31-2552Jgpiuvj856740 2.16.840.1.706792.3.579.2.829507-92-6021Dhpjyzf89098785 2.16840.1.920303.3.579.2.64256-39-2862Xrxyzar17034088 2.840.1.508488.3.579.2.99415-91-1027Cyglitu88949323 2.16.840.1.440819.3.579.2.13895-49-2642Xlxpbvm97071316 2.16.840.1.376510.3.579.2.10191-52-7981Srtyoce36784015 2.16.840.1.850815.3.579.2.22886-21-8055Wqgurjn67223116 2.16.840.1.545576.3.579.2.66384-18-9222Kayuzby79238892 2.16.840.1.649697.3.579.2.51042-35-6619Ajmbrhc49592210 2.16.840.1.136319.3.579.2.29269-93-3266Lorilet76409365 2.16.840.1.962428.3.579.2.10662-79-5096Rymupsg42727241 2.16.840.1.437451.3.579.2.80472-43-9813Tvftjof59423598 2.840.1.186220.3.579.2.58305-34-5030Dxocqoh94200781 2.840.1.667020.3.579.2.84266-99-5142Zopkmiv90941494 2.840.1.756135.3.579.2.57446-71-5753Uoxiamt00099034 2.0.1.892226.3.579.2.17961-68-7812Nffwuab94053376 2.16.840.1.920986.3.579.2.31718-82-2187Onxqgqf26607061 2.840.1.667790.3.579.2.93516-90-5769Owiszco34145647 2.16.840.1.324722.3.579.2.64823-58-8832Hbggxnk61670225 2.16840.1.675811.3.579.2.80172-56-3295Dlapjuw04805304 2.16.840.1.973455.3.579.2.15043-14-1605Qppenmc90429548 2.16840.1.641275.3.579.2.32403-25-2639Cckhlxn45172999 2.16.840.1.383828.3.579.2.47207-59-2542Fhumyuq01425866 2.16.840.1.579418.3.579.2.76905-43-9155Zzoxbvl80455171 2.16.840.1.857855.3.579.2.55268-38-0430Ppeurma50370368 2.16.840.1.501387.3.579.2.79985-00-8270Coqacaq07702018 2.16.840.1.994384.3.579.2.34591-32-3765Ibrzomx80422038 2.16.840.1.145546.3.579.2.65106-30-0880Hybzsxm99336488 2.16.840.1.949604.3.579.2.63114-86-0730Keeanat80683787 2.16.840.1.393019.3.579.2.71820-46-2991Lczecqr57456981 2.16.840.1.780635.3.579.2.41628-00-3741Pcghphc84838472 2.16.840.1.044550.3.579.2.11643-50-0280Cilooht00836059 2.16.840.1.351782.3.579.2.16957-07-2482Evgcvfq65717046 2.16.840.1.600058.3.579.2.30551-79-9314Qhpaixf89848449 2.16.840.1.214136.3.579.2.09276-84-6452Zbxjifo56740541 2.16.840.1.408938.3.579.2.69618-21-2388Zwanify94212594 2.16.840.1.541306.3.579.2.45000-37-8544Eizzftm11510063 2..0.1.003752.3.579.2.87357-37-5921Uxojqnh75283560 2.16.840.1.122586.3.579.2.727 [id number] 2.0.1.798462.19 [id number] [id number] 2.160.1.729763.19 [id number] 2.0.1.267958.3.579.2.531 Social History DateTypeDetailFacilityStart: 01-01-2022 End: 85-60-7145Dfqvjme smoking statusHeavy tobacco smoker (finding)[facility]: [facility]2023 End: 63-31-2008Lye Assigned At BirthFemalCleveland Clinic Children's Hospital for Rehabilitationtart: 05-08-2018 End: 83-72-9763Trgnrff smoking status NHISOccasional tobacco smokerCity Hospitaltart: 05-08-2018 End: 88-24-3233Jzntuvc use and exposureSmokeless tobacco non-userCity Hospitaltart: 38-78-5017Uqe Assigned At BirthNot on fileCity Hospitaltart: 07-18-2022 End: 12-37-6611Zgatadtd to SARS-CoV-2 (event)Not sureCity Hospitaltart: 03-30-2023 End: 78-45-3403Mualwhe of Social functionNOMS HealthcareStart: 12-07-2022 National Score (1-100), lower number is lower yoru78FDQP HealthcareStart: 32-11-3508Qorakzh smoking status NHISSmokes tobacco dailyNOMS HealthcareHistory of tobacco useCigarette SmokerNOMS HealthcareStart: 40-23-9580Nbffwcwhe beverage intakeCurrent drinker of alcohol (finding)[facility]S HealthcareWithin [...] intake : 3-4 cups per dayNOMS HealthcareSexual [facility] Start: 13-48-0415MhfIvdmfm (finding)[facility] CenterToccOhio [facility] Comment on above:daily smokerStart: 32-16-5512Tanmjvp smoking status NHISTobacco smoking consumption unknownNOMS HealthcareHow often do you need to have someone help you when you read instructions, pamphlets, or other written material from your doctor or pharmacy [SILS]SometimesNOMS Healthcare Medical Equipment Procedure CodeEquipment CodeEquipment Original TextEquipment IdentifierDatesMesh Prolene Polypropylene 6x4in Surgical Patch Soft Flat Sterile Hernia - [id number]: 97-97-4889SDEHR FRACTURE ORIF Nate Gavin DO 11/12/22 Unknown Ankle LFDAStart: 41-92-3279GFZYA FRACTURE ORIF Nate Gavin DO A 11/12/22 Unknown Ankle LFDAStart: 02-35-6878SMUOR FRACTURE ORIF Romaine BETH, Nate A 11/12/22 Unknown Ankle LFDAStart: 13-64-2966NQGFH FRACTURE ORIF Romaine BETH, Nate A 11/12/22 Unknown Ankle LFDAStart: 77-86-4202OHBSF FRACTURE ORIF Romaine BETH, Nate A 11/12/22 Unknown Ankle LFDAStart: 71-12-4048GGHJJ FRACTURE ORIF Romaine BETH, Nate A 11/12/22 Unknown Ankle LFDAStart: 64-21-0265ZAODD FRACTURE ORIF Nate Gavin DO A 11/12/22 Unknown Ankle LFDAStart: 60-65-5030EQSJF FRACTURE ORIF Nate Gavin DO A 11/12/22 Unknown Ankle LFDAStart: 53-73-4020JOEZO FRACTURE ORIF Nate Gavin DO A 11/12/22 Unknown Ankle LFDAStart: 62-81-3291DWNQS FRACTURE ORIF Nate Gavin DO A 11/12/22 Unknown Ankle LFDAStart: 40-89-8222CZGCH FRACTURE ORIF Nate Gavin DO A 11/12/22 Unknown Ankle LFDAStart: 05-04-3999FBWMM FRACTURE ORIF Nate Gavin DO A 11/12/22 Unknown Ankle LFDAStart: 86-85-1439CKLBE FRACTURE ORIF Nate Gavin DO A 11/12/22 Unknown Ankle LFDAStart: 28-09-2056EKUCY FRACTURE ORIF Romaine BETH, Nate A 11/12/22 Unknown Ankle LFDAStart: 11-12-2022 ANKLE FRACTURE ORIF Nate Gavin DO A 11/12/22 Unknown Ankle LFDAStart: 49-68-0669PPHQA FRACTURE ORIF Nate Gavin DO A 11/12/22 Unknown Ankle LFDAStart: 17-76-6890FZZKG FRACTURE ORIF Romaine BETH, Nate A 11/12/22 Unknown Ankle LFDA Start: 81-07-2402KXPVX FRACTURE ORIF Nate Gavin DO A 11/12/22 Unknown Ankle L FDAStart: 90-08-3438CYAAR FRACTURE ORIF Romaine BETH, Nate A 11/12/22 Unknown Ankle LFDAStart: 74-28-2343SZXXE FRACTURE ORIF Romaine BETH, Nate A 11/12/22 Unknown Ankle LFDAStart: 52-28-6626SRREO FRACTURE ORIF Romaine BETH, Nate A 11/12/22 Unknown Ankle LFDAStart: 33-25-3111IGZRF FRACTURE ORIF Romaine BETH, Nate A 11/12/22 Unknown Ankle LFDAStart: 20-44-5219KZDHK FRACTURE ORIF Romaine BETH, Nate A 11/12/22 Unknown Ankle LFDAStart: 76-78-3688TCDAX FRACTURE ORIF Romaine BETH, Nate A 11/12/22 Unknown Ankle LFDAStart: 79-73-2511MWTGA FRACTURE ORIF Nate Gavin DO A 11/12/22 Unknown Ankle LFDAStart: 85-76-5808SWQDY FRACTURE ORIF Nate Gavin DO A 11/12/22 Unknown Ankle LFDAStart: 60-85-8549VDMLR FRACTURE ORIF Nate Gavin DO A 11/12/22 Unknown Ankle LFDAStart: 60-38-0029WAUYX FRACTURE ORIF Nate Gavin DO A 11/12/22 Unknown Ankle LFDAStart: 97-69-9125IXRMP FRACTURE ORIF Nate Gavin DO A 11/12/22 Unknown Ankle LFDAStart: 63-94-9927FQFHV FRACTURE ORIF Romaine BETH, Nate A 11/12/22 Unknown Ankle LFDAStart: 34-32-3314FCMBF FRACTURE ORIF Luis Miguel Gavin DOson A 11/12/22 Unknown Ankle LFDAStart: 16-42-8470ZPUWL FRACTURE ORIF Romaine BETH, Nate A 11/12/22 Unknown Ankle LFDAStart: 60-67-4077ZNBSE FRACTURE ORIF Romaine BETH, Nate A 11/12/22 Unknown Ankle LFDAStart: 42-76-3638YJXHS FRACTURE ORIF Romaine BETH, Nate A 11/12/22 Unknown Ankle LFDAStart: 21-41-1786LGMEG FRACTURE ORIF Nate Gavin DO A 11/12/22 Unknown Ankle LFDAStart: 78-39-3640WZIFD FRACTURE ORIF Nate Gavin DO A 11/12/22 Unknown Ankle LFDAStart: 59-61-6658JERHZ FRACTURE ORIF Nate Gavin DO A 11/12/22 Unknown Ankle LFDAStart: 94-21-6570ZDKKL FRACTURE ORIF Nate Gavin DO A 11/12/22 Unknown Ankle LFDAStart: 11-12-2022 ANKLE FRACTURE ORIF Nate Gavin DO A 11/12/22 Unknown Ankle LFDAStart: 78-24-1061STCJM FRACTURE ORIF Nate Gavin DO A 11/12/22 Unknown Ankle LFDAStart: 99-22-7344ZHDQC FRACTURE ORIF Nate Gavin DO 11/12/22 Unknown Ankle LFDA Start: 14-15-2072WDAPV FRACTURE ORIF Nate Gavin DO 11/12/22 Unknown Ankle L FDAStart: 86-47-5545OKVVH FRACTURE ORIF Nate Gavin DO 11/12/22 Unknown Ankle LFDAStart: 93-12-0821KISZU FRACTURE ORIF Nate Gavin DO 11/12/22 Unknown Ankle LFDAStart: 28-68-6881UWROW FRACTURE ORIF Nate Gavin DO 11/12/22 Unknown Ankle LFDAStart: 86-71-6145KUQFK FRACTURE ORIF Nate Gavin DO A 11/12/22 Unknown Ankle LFDAStart: 67-25-1213OSTSP FRACTURE ORIF Nate Gavin DO A 11/12/22 Unknown Ankle LFDAStart: 98-32-1765XRKKY FRACTURE ORIF Nate Gavin DO A 11/12/22 Unknown Ankle LFDAStart: 17-52-9813LXIXA FRACTURE ORIF Nate Gavin DO A 11/12/22 Unknown Ankle LFDAStart: 88-45-8223PHVVD FRACTURE ORIF Nate Gavin DO A 11/12/22 Unknown Ankle LFDAStart: 93-94-6917WGDDA FRACTURE ORIF Nate Gavin DO A 11/12/22 Unknown Ankle LFDAStart: 48-21-8938FEGCR FRACTURE ORIF Nate Gavin DO A 11/12/22 Unknown Ankle LFDAStart: 31-14-0205XMHYE FRACTURE ORIF Nate Gavin DO A 11/12/22 Unknown Ankle LFDAStart: 54-05-3003IEJTM FRACTURE ORIF Nate Gavin DO A 11/12/22 Unknown Ankle LFDAStart: 50-76-1376FJPFV FRACTURE ORIF Nate Gavin DO A 11/12/22 Unknown Ankle LFDAStart: 50-63-9443LDUFK FRACTURE ORIF Nate Gavin DO A 11/12/22 Unknown Ankle LFDAStart: 51-00-8112ZRVKF FRACTURE ORIF Nate Gavin DO A 11/12/22 Unknown Ankle LFDAStart: 27-58-7887ZGACN FRACTURE ORIF Nate Gavin DO A 11/12/22 Unknown Ankle LFDAStart: 51-99-4172CCECM FRACTURE ORIF Nate Gavin DO 11/12/22 Unknown Ankle LFDAStart: 14-28-4024WZSJO FRACTURE ORIF Nate Gavin DO 11/12/22 Unknown Ankle LFDAStart: 40-90-1873NRDSU FRACTURE ORIF Nate Gavin DO 11/12/22 Unknown Ankle LFDAStart: 68-24-0824MENNI FRACTURE ORIF Nate Gavin DO A 11/12/22 Unknown Ankle LFDAStart: 11-12-2022 ANKLE FRACTURE ORIF Nate Gavin DO 11/12/22 Unknown Ankle LFDAStart: 57-12-1258MGIZB FRACTURE ORIF Nate Gavin DO A 11/12/22 Unknown Ankle LFDAStart: 76-44-1757ZBTIH FRACTURE ORIF Nate Gavin DO A 11/12/22 Unknown Ankle LFDA Start: 62-06-5572BNDJA FRACTURE ORIF Nate Gavin DO A 11/12/22 Unknown Ankle L FDAStart: 12-26-5649SMNRM FRACTURE ORIF Nate Gavin DO A 11/12/22 Unknown Ankle LFDAStart: 77-69-2777YFPTD FRACTURE ORIF Nate Gavin DO A 11/12/22 Unknown Ankle LFDAStart: 83-86-8539WDYXI FRACTURE ORIF Romaine BETH, Nate A 11/12/22 Unknown Ankle LFDAStart: 50-13-6595NCIPZ FRACTURE ORIF Romaine BETH, Nate A 11/12/22 Unknown Ankle LFDAStart: 58-34-8095ZTTCB FRACTURE ORIF Romaine BETH, Nate A 11/12/22 Unknown Ankle LFDAStart: 61-42-0951OQVLW FRACTURE ORIF Romaine DO, Nate A 11/12/22 Unknown Ankle LFDAStart: 67-09-9919QHNYD FRACTURE ORIF Romaine BETH, Nate A 11/12/22 Unknown Ankle LFDAStart: 30-15-2109DZAVB FRACTURE ORIF Romaine BETH, Nate A 11/12/22 Unknown Ankle LFDAStart: 48-04-3696ZKKOZ FRACTURE ORIF Romaine BETH, Nate A 11/12/22 Unknown Ankle LFDAStart: 82-09-7705MDAIJ FRACTURE ORIF Romaine BETH, Nate A 11/12/22 Unknown Ankle LFDAStart: 73-13-0227KTNIX FRACTURE ORIF Romaine BETH, Nate A 11/12/22 Unknown Ankle LFDAStart: 96-96-6219CLMRC FRACTURE ORIF Romaine BETH, Nate A 11/12/22 Unknown Ankle LFDAStart: 81-48-1805QCVUK FRACTURE ORIF Romaine BETH, Nate A 11/12/22 Unknown Ankle LFDAStart: 48-76-9655RLUKC FRACTURE ORIF Romaine BETH, Nate A 11/12/22 Unknown Ankle LFDAStart: 78-40-3473NFMAH FRACTURE ORIF Romaine BETH, Nate A 11/12/22 Unknown Ankle LFDAStart: 23-20-6440GVKUI FRACTURE ORIF Romaine BETH, Nate A 11/12/22 Unknown Ankle LFDAStart: 53-88-0505VLEMV FRACTURE ORIF Romaine BETH, Nate A 11/12/22 Unknown Ankle LFDAStart: 84-28-2594FCMRH FRACTURE ORIF Romaine DO, Nate A 11/12/22 Unknown Ankle LFDAStart: 74-89-5752HIYXZ FRACTURE ORIF Romaine BETH, Nate A 11/12/22 Unknown Ankle LFDAStart: 32-49-1958XTHKH FRACTURE ORIF Romaine BETH, Nate A 11/12/22 Unknown Ankle LFDAStart: 11-12-2022 ANKLE FRACTURE ORIF Romaine BETH, Nate A 11/12/22 Unknown Ankle LFDAStart: 45-19-3498SGTPV FRACTURE ORIF Romaine BETH, Nate A 11/12/22 Unknown Ankle LFDAStart: 81-87-8510PPYHP FRACTURE ORIF Romaine BETH, Nate A 11/12/22 Unknown Ankle LFDA Start: 98-92-5321MYOXX FRACTURE ORIF Romaine BETH, Nate Cotton 11/12/22 Unknown Ankle L FDAStart: 92-57-5284QWVCS FRACTURE ORIF Nate Gavin DO A 11/12/22 Unknown Ankle LFDAStart: 80-16-2508JGIQG FRACTURE ORIF Nate Gavin DO 11/12/22 Unknown Ankle LFDAStart: 18-18-6688AURVL FRACTURE ORIF Romaine BETH, Nate Cotton 11/12/22 Unknown Ankle LFDAStart: 25-04-9783TAERP FRACTURE ORIF Nate Gavin DO 11/12/22 Unknown Ankle LFDAStart: 03-63-6628THAQD FRACTURE ORIF Nate Gavin DO 11/12/22 Unknown Ankle LFDAStart: 81-09-4818WNEVQ FRACTURE ORIF Nate Gavin DO 11/12/22 Unknown Ankle LFDAStart: 72-56-1931LDFZW FRACTURE ORIF Romaine BETH, Nate A 11/12/22 Unknown Ankle LFDAStart: 88-92-4689AUNHM FRACTURE ORIF Romaine BETH, Nate A 11/12/22 Unknown Ankle LFDAStart: 14-62-4790STEGZ FRACTURE ORIF Romaine BETH, Nate A 11/12/22 Unknown Ankle LFDAStart: 52-62-8864DNAUS FRACTURE ORIF Romaine BETH, Nate A 11/12/22 Unknown Ankle LFDAStart: 57-39-3365TFVWF FRACTURE ORIF Romaine BETH, Nate A 11/12/22 Unknown Ankle LFDAStart: 94-73-3454INYFW FRACTURE ORIF Nate Gavin DO A 11/12/22 Unknown Ankle LFDAStart: 94-72-7555ZJASQ FRACTURE ORIF Romaine BETH, Nate A 11/12/22 Unknown Ankle LFDAStart: 89-31-0227UKAQQ FRACTURE ORIF Romaine BETH, Nate A 11/12/22 Unknown Ankle LFDAStart: 63-79-2529RFGHT FRACTURE ORIF Nate Gavin DO A 11/12/22 Unknown Ankle LFDAStart: 23-32-1533LPSRL FRACTURE ORIF Nate Gavin DO A 11/12/22 Unknown Ankle LFDAStart: 39-12-5093IZXZF FRACTURE ORIF Nate Gavin DO A 11/12/22 Unknown Ankle LFDAStart: 08-85-7734ROGCR FRACTURE ORIF Nate Gavin DO A 11/12/22 Unknown Ankle LFDAStart: 89-19-3838VOTQA FRACTURE ORIF Nate Gavin DO A 11/12/22 Unknown Ankle LFDAStart: 18-34-3324HMMHZ FRACTURE ORIF Nate Gavin DO A 11/12/22 Unknown Ankle LFDAStart: 11-12-2022 ANKLE FRACTURE ORIF Nate Gavin DO A 11/12/22 Unknown Ankle LFDAStart: 86-74-7812IPPMF FRACTURE ORIF Nate Gavin DO A 11/12/22 Unknown Ankle LFDAStart: 69-87-8018HEHZR FRACTURE ORIF Nate Gavin DO A 11/12/22 Unknown Ankle LFDA Start: 62-09-2524JKOIE FRACTURE ORIF Nate Gavin DO A 11/12/22 Unknown Ankle L FDAStart: 82-94-4210QAYLQ FRACTURE ORIF Nate Gavin DO A 11/12/22 Unknown Ankle LFDAStart: 30-32-1597KWKEG FRACTURE ORIF Nate Gavin DO A 11/12/22 Unknown Ankle LFDAStart: 77-33-2341XRZZQ FRACTURE ORIF Nate Gavin DO A 11/12/22 Unknown Ankle LFDAStart: 21-01-0135WEJSO FRACTURE ORIF Nate Gavin DO A 11/12/22 Unknown Ankle LFDAStart: 82-44-3922VPNGI FRACTURE ORIF Nate Gavin DO A 11/12/22 Unknown Ankle LFDAStart: 92-47-9389YITBQ FRACTURE ORIF Nate Gavin DO A 11/12/22 Unknown Ankle LFDAStart: 52-77-7869ZVJTZ FRACTURE ORIF Romaine BETH, Nate A 11/12/22 Unknown Ankle LFDAStart: 83-07-6749CEBNX FRACTURE ORIF Nate Gavin DO A 11/12/22 Unknown Ankle LFDAStart: 84-16-1890WRSIO FRACTURE ORIF Romaine BETH, Nate A 11/12/22 Unknown Ankle LFDAStart: 59-62-2400FOTMY FRACTURE ORIF Nate Gavin DO A 11/12/22 Unknown Ankle LFDAStart: 64-37-0938ZEIEG FRACTURE ORIF Nate Gavin DO A 11/12/22 Unknown Ankle LFDAStart: 19-36-2188GIEDF FRACTURE ORIF Nate Gavin DO A 11/12/22 Unknown Ankle LFDAStart: 87-58-5726RBAXQ FRACTURE ORIF Nate Gavin DO A 11/12/22 Unknown Ankle LFDAStart: 41-72-7102DDVLI FRACTURE ORIF Nate Gavin DO A 11/12/22 Unknown Ankle LFDAStart: 10-21-7523SWZEC FRACTURE ORIF Nate Gavin DO A 11/12/22 Unknown Ankle LFDAStart: 37-71-1614EKUFK FRACTURE ORIF Nate Gavin DO A 11/12/22 Unknown Ankle LFDAStart: 52-16-7780IVVHN FRACTURE ORIF Nate Gavin DO A 11/12/22 Unknown Ankle LFDAStart: 53-84-6552POVDE FRACTURE ORIF Nate Gavin DO A 11/12/22 Unknown Ankle LFDAStart: 99-51-8448TUTEU FRACTURE ORIF Nate Gavin DO A 11/12/22 Unknown Ankle LFDAStart: 23-02-6892IMBJG FRACTURE ORIF Romaine BETH, Nate A 11/12/22 Unknown Ankle LFDAStart: 11-12-2022 ANKLE FRACTURE ORIF Nate Gavin DO A 11/12/22 Unknown Ankle LFDAStart: 74-51-3229IUWDB FRACTURE ORIF Romaine BETH, Nate A 11/12/22 Unknown Ankle LFDAStart: 93-36-7616MGLKF FRACTURE ORIF Romaine BETH, Nate A 11/12/22 Unknown Ankle LFDA Start: 15-75-4203GKWZF FRACTURE ORIF Romaine BETH, Nate A 11/12/22 Unknown Ankle L FDAStart: 28-49-4084AFNGW FRACTURE ORIF Romaine BETH, Nate A 11/12/22 Unknown Ankle LFDAStart: 76-81-3056YDIIA FRACTURE ORIF Romaine BETH, Nate A 11/12/22 Unknown Ankle LFDAStart: 44-95-4424PGZEX FRACTURE ORIF Romaine BETH, Nate A 11/12/22 Unknown Ankle LFDAStart: 27-84-4526KKNXC FRACTURE ORIF Romaine BETH, Nate A 11/12/22 Unknown Ankle LFDAStart: 74-08-8854HYRUB FRACTURE ORIF Romaine BETH, Nate A 11/12/22 Unknown Ankle LFDAStart: 73-67-4138LKZVE FRACTURE ORIF Romaine BETH, Nate A 11/12/22 Unknown Ankle LFDAStart: 91-50-4009TPXQO FRACTURE ORIF Romaine BETH, Nate A 11/12/22 Unknown Ankle LFDAStart: 36-40-9018YBVIU FRACTURE ORIF Romaine BETH, Nate A 11/12/22 Unknown Ankle LFDAStart: 08-30-5228DDRUU FRACTURE ORIF Romaine BETH, Nate A 11/12/22 Unknown Ankle LFDAStart: 58-29-1347WPAQG FRACTURE ORIF Romaine BETH, Nate A 11/12/22 Unknown Ankle LFDAStart: 50-44-8166KNDTN FRACTURE ORIF Romaine BETH, Nate A 11/12/22 Unknown Ankle LFDAStart: 14-26-2620OZEYY FRACTURE ORIF Romaine BETH, Nate A 11/12/22 Unknown Ankle LFDAStart: 31-53-4078BSHWQ FRACTURE ORIF Romaine BETH, Nate A 11/12/22 Unknown Ankle LFDAStart: 38-61-0066DSCNT FRACTURE ORIF Romaine BETH, Nate A 11/12/22 Unknown Ankle LFDAStart: 02-87-9475SWPXK FRACTURE ORIF Romaine BETH, Nate A 11/12/22 Unknown Ankle LFDAStart: 38-02-8888YGGQW FRACTURE ORIF Romaine BETH, Nate A 11/12/22 Unknown Ankle LFDAStart: 52-11-5492XAVLI FRACTURE ORIF Romaine BETH, Nate A 11/12/22 Unknown Ankle LFDAStart: 66-64-1006OMMYX FRACTURE ORIF Romaine BETH, Nate A 11/12/22 Unknown Ankle LFDAStart: 30-51-2109PVXDS FRACTURE ORIF Romaine BETH, Nate A 11/12/22 Unknown Ankle LFDAStart: 02-40-0768OEVRK FRACTURE ORIF Nate Gavin DO A 11/12/22 Unknown Ankle LFDAStart: 11-12-2022 ANKLE FRACTURE ORIF Nate Gavin DO A 11/12/22 Unknown Ankle LFDAStart: 41-05-5203KEDPM FRACTURE ORIF Nate Gavin DO A 11/12/22 Unknown Ankle LFDAStart: 20-67-3821SCJOR FRACTURE ORIF Nate Gavin DO A 11/12/22 Unknown Ankle LFDA Start: 02-28-0342PVRYG FRACTURE ORIF Nate Gavin DO 11/12/22 Unknown Ankle L FDAStart: 32-11-2142ROTVA FRACTURE ORIF Nate Gavin DO A 11/12/22 Unknown Ankle LFDAStart: 29-79-3081GIVFJ FRACTURE ORIF Nate Gavin DO A 11/12/22 Unknown Ankle LFDAStart: 48-92-5366WHMQB FRACTURE ORIF Nate Gavin DO A 11/12/22 Unknown Ankle LFDAStart: 42-11-2525ALIWP FRACTURE ORIF Romaine BETH, Nate A 11/12/22 Unknown Ankle LFDAStart: 86-03-9012LGDDQ FRACTURE ORIF Romaine BETH, Nate A 11/12/22 Unknown Ankle LFDAStart: 20-10-8451ZYLOY FRACTURE ORIF Nate Gavin DO A 11/12/22 Unknown Ankle LFDAStart: 11-12-2022 Functional Status KkrdZsyftkvipoPoqeuyHqzuppvg28-77-7773Tupdgyrbvg StatusN/AFisher - [facility] HospitalQbpvnf01-98-4669Yzjjqke Health Questionnaire 2 item (PHQ-2) [Reported][facility] Sqzuqmwxki70-71-9470Agkvux interest or pleasure in doing thingsMore than half the days 06/24/2024 1:47 PM Marycruz Duval More than half the daysSSM DePaul Health CenterYiyprousew33-89-8908Swczyjx down, depressed, or hopelessMore than half the days 06/24/2024 1:47 PM Marycruz Duval More than half the [facility] 20-04-7928Rlrszhi falling or staying asleep, or sleeping too muchNearly every day 06/24/2024 1:47 PM Marycruz Duval Nearly every daySSM DePaul Health Center 20-01-3195Qgzjzac tired or having little energyNearly every day 06/24/2024 1:47 PM Marycruz Duval Nearly every daySSM DePaul Health CenterXlkneercqc18-61-2311Aktl appetite or overeatingMore than half the days 06/24/2024 1:47 PM Marycruz Duval More than half the daysSSM DePaul Health CenterHtdnpfjszy79-33-0713Ifltftu bad about yourself-or that you are a failure or have let yourself or your family downNearly every day 06/24/2024 1:47 PM Marycruz Duval Nearly every daySSM DePaul Health CenterIafehfdrzz12-98-1099 Trouble concentrating on things, such as reading the newspaper or watching televisionNearly every day 06/24/2024 1:47 PM Marycruz Duval Nearly every daySSM DePaul Health CenterPyozkmxvif88-54-2385Mtshxb or speaking so slowly that other people could have noticed. Or the opposite - being so fidgety or restless that you have been moving around a lot more than usualSeveral days 06/24/2024 1:47 PM Marycruz Duval Several [facility] CenterAftfoabwzb79-30-6204Lkevegwe that you would be better off , or of hurting yourself in some waySeveral days 06/24/2024 1:47 PM Marycruz Duval Several daysSSM DePaul Health CenterLqniiffrhl87-97-0553Ktroy score [AUDIT-C]4 06/24/2024 1:42 PM Marycruz DuvalNOMissouri Rehabilitation CenterIewpxzlwco16-41-2898Xut often do you have a drink containing alcohol?2-3 times a week 06/24/2024 1:42 PM Marycruz Duval 2-3 times a weekSSM DePaul Health CenterMdusqsvrni16-77-8483Muo many standard drinks containing alcohol do you have on a typical day?1 or 2 06/24/2024 1:42 PM Marycruz Duval 1 or 2NOMS Gejtfosznm32-06-6564Eng often do you have 6 or more drinks on 1 occasion?Less than monthly 06/24/2024 1:42 PM Marycruz Duval Less than monthlySSM DePaul Health CenterFatgdsckmf49-59-8687Diytnzyayu StatusN/[facility]01-19-2024Functional StatusN/[facility] 00-06-7556Zlgomdyctw StatusN/[facility]02-18-2023Functional StatusN/[facility]02-18-2023Functional StatusReg[facility]07-07-2022Functional StatusN/[facility] 62-44-7130Buy you deaf, or do you have serious difficulty hearingNo 04/19/2021 10:17 AM Sofi Dickey RN [facility] NorthUxiley19-33-8111Muy you blind, or do you have serious difficulty seeing, even when wearing glassesNo 04/19/2021 10:17 AM Sofi Dickey RN [facility]07-26-2021Do you have serious difficulty walking or climbing stairsNo 04/19/2021 10:17 AM Sofi Dickey RN NoCbrecks[facility] Tfuhpl00-27-0236Bi you have difficulty dressing or bathingNo 04/19/2021 10:17 AM Sofi Dickey RN [facility]rec[facility] Tzyfiq29-13-7868Fpbfjpw of a physical, mental, or emotional condition, do you have difficulty doing errands alone such as visiting a physician's office or shoppingNo 04/19/2021 10:17 AM Sofi Dickey RN NoC[facility] Mental Status KbtdCbferomeaaEjdsjqBpozxzbr69-34-7027Ompklyg of a physical, mental, or emotional condition, do you have serious difficulty concentrating, remembering, or making decisionsNo 04/19/2021 10:17 AM EDT Sofi Sorensen RN [facility] Clinical Notes 01-01-2022 to 06-26-2025 Note Date & KazxMhviEevhlxth91-27-4434 NoteDischarge Summary Admission and Discharge Information Admitting [...] sleep apnea. She was recently admitted to [facility] from 06/20 to 06/21 for stroke like symptoms. Neurology evaluated, patient had Head CT that was negative as well as Head/Neck CTA negative. 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 She was found to have hyperlipidemia and started on asa 81 mg QD and high intensity statin. She did not take the statin. Patient had hypokalemia and hyponatremia. Her HCTz was stopped. Patient returned to [facility] ER 06/23/25, again, with complaints of stroke [...] packet/menu and relayed to me about the welder 2nd shift staff. Patient statesthat no one has addressed her concerns. I was told by staff that she told staff she will report the nursing staff. I spoke with photography manager on the floor who confirms that the welder 2nd shift office services assistant discussed concerns with patient at length. [...] and available for reformatti (more content not included)...[facility] HospitalComment on above:Result Comment: Electronically Signed By: Obdulia Menard CNP\.br\Date and Time Signed: 06/25/25 09:41 EDT\.br\Electronically Co-Signed By: Meliton Shepherd III, DO.br\Date and Time Co-Signed: 06/26/25 07:32 [id number] Note Progress Note-Physician Basic Information 49 year [...] Head/Neck CTA 06/20 Negative Patient returned to [facility] ER 06/23/25 with right arm weakness and [...] 05:54:00) Lymph Auto: 48 % (06/24/25 05:54:00) Billings Auto: 7.7 % (06/24/25 05:54:00) Eos Auto: 0.8 % (06/24/25 05:54:00) Basophil Auto: 0.8 % (06/24/25 05:54:00) Neutro Absolute: 2.7 E9/L (06/24/25 05:54:00) Lymph Absolute: 3.1 E9/L (06/24/25 05:54:00) Billings Absolute: 0.5 E9/L (06/24/25 05:54:00) Eos Absolute: 0.1 E9/L (06/24/25 05:54:00) Basophil Absolute: 0.1 E9/L (06/24/25 05:54:00) PT: 10.2 second(s) (06/23/25 20:10:00) INR: 0.91 (06/23/25 20:10:00) PTT: 33.4 second(s) (06/23/25 20:10:00) Glucose Lvl: 99 mg/dL (06/24/25 05:54:00) BUN: 11 mg/dL (06/24/25 05:54:00) Creatinine: 0.7 mg/dL (06/24/25 05:54 (more content not included)...[facility] HospitalComment on above:Result Comment: Electronically Signed By: Obdulia Menard CNP\.br\Date and Time Signed: 06/24/25 11:27 EDT\.br\Electronically Co-Signed By: Meliton Shepherd III, DO\.br\Date and Time Co-Signed: 06/25/25 09:28 [id number] NoteProgress Note-Nurse Patient verbalized multiple concerns regarding [...] Will continue to provide support as needed. [facility]09-30-20[facility] NoteEchocardiology Procedure Exam Date/Time Accession # Ordering Echo w/ Saline Bubbles 06/24/2025 14:08 EDT [id number] Noel MORALES DO CPT code [id number] Reason for Exam (Echo w/ Saline Bubbles) TIA Report [facility] [address] [place] [address] Adult Echocardiogram Report Name: NATHANIEL MARCIAL Study Date: 06/24/2025 01:16 PM BP: 95/67 mmHg Patient Location: 2N^[id number]^01^[facility] HR: 57 : 1975 Gender: Female Height: 58.5 in Age: 49 yrs Ethnicity: WHT Weight: 132 lb Reason For Study: TIA BSA: 1.5 m2 History: HTN, NICOLETTE, Smoker Ordering Physician: Noel MORALSE Performed By: Nu Vincent RDCS Interpretation Summary [...] Signed by: Sweta Valadez MD Transcribed by: PA Technologist: [facility]09-30-2025 Note Consultation Note Chief Complaint pt arrives [...] both correctly = 0 Open and close eyes/field support technician release hand: Obeys both correctly = 0 [...] She has had an MRI at the [facility] facility which is a 1.5 Nancy [...] for any myalgias and (more content not included)...[facility] HospitalComment on above:Result Comment: Electronically Signed By: Sierra Mercer RN\.br\Date and Time Signed: 06/24/25 07:02 EDT\.br\Electronically Co- Signed By: German Luciano DO\.br\Date and Time Co-Signed: 06/24/25 10:12 EDT\.br\Electronically Co-Signed By: Sierra Mercer RN [id number] Note Consultation Note Chief Complaint pt arrives [...] both correctly = 0 Open and close eyes/field support technician release hand: Obeys both correctly = 0 [...] She has had an MRI at the [facility] facility which is a 1.5 Nancy [...] for any myalgias and (more content not included)...[facility] HospitalComment on above:Result Comment: Electronically Signed By: [...] NIH of 0. Sh (more content not included)...[facility] Comment on above:Result Comment: Electronically Signed By: Noel MORALES DO\.br\Date and Time Signed: 06/24/25 02:20 [id number] NoteDischarge Summary Admission and Discharge Information Admitting [...] the past week. She was seen at [facility] a week or soago due to [...] further details of care. Message sent via [employer] to PCP to update and ensure proper [...] 80 mg= 1 tab( (more content not included)...[facility] HospitalComment on above:Result Comment: Electronically Signed By: Obdulia Menard CNP\.br\Date and Time Signed: 06/21/25 17:41 EDT\.br\Electronically Co-Signed By: Shar GALVAN MD\.br\Date and Time Co- Signed: 06/21/25 18:20 [id number] NoteProgress Note-Physician Basic Information 49-year-old female with history of hypertension, tobacco abuse, untreated obstructive sleep apnea, as well as psychiatric disorders admitted with strokelike symptoms Assessment/Plan 1. Stroke-like symptoms, (R29.90: Unspecified symptoms and signs involving the nervous system)Stroke-like symptoms Present on arrival [facility] [address]: Negative Head/Neck CTA: Negative MRI ordered but patient unable to have imaging at [facility] due to Mccarthy rods placed in (NSGsupervisor confirmed with MR/radiology staff) Lipid note: LDL 174 -> high intensity Lipitor initiated A1c pending PT/OT evaluated, no needs Passed dysphagia screening Neurology has seen: MRI recommended, but if unable to obtain at [facility] due to rods, acceptable for outpatient; Echocardiogram [...] 54.7 % (06/20/25 17:50 (more content not included)...[facility] HospitalComment on above:Result Comment: Electronically Signed By: Obdulia Menard CNP\.br\Date and Time Signed: 06/21/25 11:44 EDT\.br\Electronically Co-Signed By: COLE DESHPANDE, Haleighfo\.br\Date and Time Co- Signed: 06/21/25 11:49 [id number] NotePatient Education - Text Transient Ischemic Attack [...] factors for stroke, work with your health rn patient care to control them. Risk Factors: High Blood [...] Please call [facility] Smoking Cessation Program at [phone] ([facility]), or [phone], ext. [phone] Diabetes: Work with your healthcare professional to [...] low cholesterol diet, you can call our [employer] electrocardiograph repairer at [phone] ext [phone]. The goal for total cholesterol [...] your risk of stroke with your health rn patient care. If this is your first ischemic attack, [...] for you to f (more content not included)...[facility]09-27-[facility] NoteInterdisciplinary Note - PT Recommendations: Pt seen for PT evaluation with an [facility] score of 21/24. Pt performs sit<>stand transfer [...] D/C home. No PT needs post D/C. [facility]09-27-2025 NoteConsultation Note Chief Complaint Right arm [...] sensation in all 4 extremities. Cerebellar exam: Feorkj-el-rzlg reveals no ataxia. The neurological exam was performed by a healthcare professional which was witnessed and supervisedby me via video telemedicine visit consented to by the patient or appropriate patient uniforms sales representative. Date/Time:06/21/25 0756 Level of Consciousness: Alert = 0 Current month and age: Answers both correctly = 0 Open and close eyes/field support technician release hand: Obeys both correctly = 0 [...] pressure to keep them normote (more contentnot included)...[facility] HospitalComment on above:Result Comment: Electronically Signed By: Iesha Pabon RN\.br\Date and Time Signed: 06/21/25 07:57 EDT\.br\Electronically Co-Signed By: Wicho Rivas MD\.br\Date and Time Co-Signed: 06/21/25 09:06 [id number] NoteHistory and Physical Chief Complaint Right arm numbess/tingling 6915 History of Present Illness Patient is a [...] 1 to 2 weeks, including 1 at [facility] where she had presented with elevated [...] patient has subtle weak (more content not included)...[facility] HospitalComment on above:Result Comment: Electronically Signed By: Noel MORALES DO\.nasir\Date and Time Signed: 06/20/25 23:10 [id number] NoteProgress Note-Nurse put on 2 lpm for [facility]09-16-2025 Hospital Discharge instructions Follow Up Care 06/10/2025 08:49:17 With:German Sheehan DO [facility] Address: [address] [place] [address]- When: Unknown Comments:As scheduled [facility] [place] 09-11-2025 NoteED Patient Education Note Cardiovascular Hypertension, [...] Keep all follow-up visits. Medicines ??? Take jjjy-dei-vdthywv and prescription medicines only as told by [...] hospital. Summary ??? Hypertens (more content not included)...[facility] 05-23-2025 Hospital Discharge instructions Patient Education [...] and make symptoms worse. General instructions Take rlaf-dda-zdvfgbc and prescription medicines only as told by [...] important. Where to find more information National [place] on Mental Illness: hola.org National [place] of Mental Health: nimh.nih.gov Contact a health [...] department or: Call your local emergency services (939 in the [place] Call a suicide crisis helpline, such as the National Suicide Prevention Lifeline at or 274 in the [place] This is open 24 hours a day in the [place] Text the Crisis Text Line at 453306 (in the [place] Summary Bipolar I disorder [...] provider. Document Revised: 04/07/2022 Document Reviewed: 03/03/2022 [employer] Patient Education 2023 [employer]. 05/23/2025 13:30:48 Arthritis Arthritis Arthritis is a [...] Follow these instructions at home: Medicines Take huwm-bjv-wvlpywz and prescription medicines only as told by [...] with rest. Exercise your joint regularly with qeyxs-di-fbbhkb exercises as told by your health care [...] provider. Document Revised: 06/21/2022 Document Reviewed: 06/21/2022 [employer] Patient Education 2023 [employer]. 05/23/2025 13:30:43 Gastroesophageal Reflux Disease, Adult, Zxvb-hr-Mdkn Gastroesophageal Reflux Disease, Adult Gastroesophageal reflux (ABBY) [...] powder, vinegar, hot sauces, and BBQ sauce. ?[place] fruit juices and citrus fruits, such as oranges, landon, and limes. ?Tomato-based foods. These include red sauce, chili, salsa, and pizza with red sauce. ?Fried and fatty foods. These include donuts, bahamian fries, potato chips, and high-fat dressings. ?High-fat [...] to any changes in your symptoms. Take whwe-cbs-rrkufbm and prescription medicines only as told by [...] provider. Document Revised: 03/22/2021 Document Reviewed: 03/22/2021 [employer] Patient Education 2023 [employer]. 05/23/2025 13:30:34 Generalized Anxiety Disorder, Adult Generalized [...] can increase anxiety. Avoid caffeine and certain xwgb-wap-rhlflpz cold medicines. These may make you feel worse. Ask yourpharmacist which medicines to avoid. General instructions Take rvij-osa-vjqvbeq and prescription medicines only as told by your health care provider. Understand that you are likely to have setbacks. Accept this and be kind to yourself as you persistto take better care of yourself. Anticipate stressful situations. Create a plan and allow extra time to work with your plan. Recognize and accept your accomplishments, even if you business account manager them as small. Spend time with people who care about you. Keep all follow-up visits. This is important. Where to find more information National [place] of Mental Health: www.nimh.nih.gov Substance Abuse and [...] department or: Call your local emergency services (592 in the [place] Call a suicide crisis helpline, such as the National Suicide Prevention Lifeline at or 074 in the [place] This is open 24 hours a day in the [place] Text the Crisis Text Line at 541174 (in the [place] Summary Generalized anxiety disorder [...] provider. Document Revised: 04/06/2022 Document Reviewed: 01/02/2022 [employer] Patient Education 2023 [employer] 05/23/2025 13:30:27 Health Risks of Smoking [...] Department of Health and Human Services: www.smokefree.gov [place] Lung Association: www.freedomfromsmoking.org South [place] Heart Association: www.heart.org Where to find more [...] provider. Document Revised: 09/13/2022 Document Reviewed: 09/13/2022 [employer] Patient Education 2023 [employer]. 05/23/2025 13:30:21 Asthma, Adult, Vazx-sw-Tjxg Asthma, Adult Asthma is a condition that [...] (dander). Cockroaches. Pollen. Air pollution (like household margin analyst, wood smoke, smog, or chemical odors). What [...] of polyester or cotton. General instructions Take krnf-etl-okiwdlu and prescription medicines only as told by [...] pollute the air. These may include household margin analyst, wood smoke, smog, or chemical odors. This information is not intended to replace advice given to you by your health care provider. Make sure you discuss any questions you have with your health care provider. Document Revised: 06/20/2022 Document Reviewed: 06/20/2022 [employer] Patient Education 2023 [employer]. 05/23/2025 13:30:13 Hypertension, Adult, Boeg-ig-Azyp Hypertension, Adult Hypertension is another name for [...] doctor. Keep all follow-up visits. Medicines Take lphc-hzu-uijpxct and prescription medicines only as told by [...] provider. Document Revised: 06/30/2022 Document Reviewed: 06/30/2022 [employer] Patient Education 2023 [employer]. 05/23/2025 13:30:10 DASH Eating Plan DASH Eating [...] Dairy Whole or 2% milk, cream, and ttpb-aim-cbkl. Whole or full-fat cream cheese. Whole-fat or [...] more information National Heart, Lung, and Blood [place] (NHLBI): nhlbi.nih.gov [place] Heart Association (AHA): heart.org Academy of Nutrition and Dietetics: eatright.org National Kidney Foundation (NKF): kidney.org This information is not intended to replace advice given to you by your health care provider. Make sure you discuss any questions you have with your health care provider. Document Revised: 09/28/2023 Document Reviewed: 09/28/2023 [employer] Patient Education 2023 [employer]. [facility] 08-29-2025 Hospital Discharge instructions Follow Up Care 05/23/2025 12:25:26 With:German Sheehan DO, FAM Address: [address] [address]- When:4 weeks Comments:4 WEEKS FOLLOWUP [facility] 08-29-2025 NotePatient Education Cardiovascular Hypertension, Adult Hypertension [...] Keep all follow-up visits. Medicines ??? Take gfmr-dnl-gknkpna and prescription medicines only as told by [...] ??? Hypertension is a (more content not included)...[facility] 05-02-2025 NoteFamily Medicine Office/Clinic Note Chief Complaint Procedure HPI Staff Patient here for Procedure (Friend, Akbar) - Trigger Point Injections - At last visit Losartan discontinued. Patient is checking blood pressure at home, daily, nuyhzmque419's/60-70's. Patient notes she is only taking one dose of her Coreg currently. - X-rays ordered, patient has completed and would like to review in more detail. She was also prescribed Lidocaine patches, which she has not received due to insurance, she would like to discuss other options. Julienne: due Pap: Hx Hysterectomy Davis: [place] [facility] [place] Needs to Schedules [...] 12 hours on and 12hours off daily, [facility]/pharmacy #[id number], 150.7, cm, 04/22/25 9:14:00 EDT, [...] [BMI] 28.0-28.9, adult) T (more content not included)...[facility] Result Comment: Electronically Signed By: German Sheehan DO\.br\Date and Time Signed: 05/02/25 12:07 [id number] Hospital Discharge instructions Follow Up Care 04/22/2025 10:23:52 With:German Sheehan DO, [facility] Address: [address] [place] [address]- When:4 weeks Comments:4 WEEKS FOLLOWUP [facility] 07-16-2025 Hospital Discharge instructions Follow Up Care 04/09/2025 14:23:53 With:German Sheehan DO, [facility] Address: [address] [place] [address]- When:4 weeks Comments:4 WEEKS FOLLOWUP [facility] 06-05-2025 Evaluation + Plan note Future Scheduled Tests Radiology* XR Shoulder Complete Right 02/27/25 * XR Spine Cervical 4 or 5 Views 02/27/25 * XR Spine Lumbosacral Minimum 4 Views 02/27/25 * XR Spine Thoracic 3 Views 02/27/25 [facility]29[facility] Chief [...] echo; if her RV (more content not included)...[facility]05[facility]14-[facility] Note Chief Complaint: Patient is here today for a 6 month follow up. Patient states from a cardiac stand point she feels ok. Patient states things were going well she fell on 02/02 and bruised her right rib area, which radiates into chest and breast area on her left side, patient states she went to [facility] ER and her blood pressure was up in the ER. 160/88. Patient states she when to [facility] medicine yesterday and was told about the [...] past medical history of Asthma, Bipolar depression ([facility]), Chest pain, COPD (chronic obstructive pulmonary disease) [...] RVSP Recent fall Plan (more content not included)...[facility]05-13-2025 NotePatient Education Orthopedics Rib Contusion A rib [...] for lung collapse and pneumonia. ??? Medicines. Vvfc-apg-fjejwlr or prescription medicines may be given to control pain. ??? Injection of a numbing medicine around the nerve near your injury (nerve block). Follow these instructions at home: Medicines ??? Take wmyu-rvr-ubevbcy and prescription medicines only as told by your health care provider. ??? Ask your health care provider if the medicine prescribed to you: ? Requires you to avoid driving or using machinery. ? Can cause constipation. You may need to take these actions to prevent or treat constipation: ? Drink enough fluid to keep your urine pale yellow. ? Take ohpl-hxh-jzltkuf or prescription medicines. ? Eat foods that [...] Document Reviewed: 0 (more content not included)... [facility]05-13-2025 Hospital Discharge instructions Follow Up Care 02/04/2025 09:58:12 With:Link German [facility] Address: [address] [id number]- When:2 weeks Comments:2 WEEKS [facility] [place] 05-11-2025 Hospital Discharge instructions Patient Education 02/02/2025 [...] risk for lung collapse and pneumonia. Medicines. Gqwq-qtd-yjgaayn or prescription medicines may be given to control pain. Injection of a numbing medicine around the nerve near your injury (nerve block). Follow these instructions at home: Medicines Take dvse-eub-kbqeqkw and prescription medicines only as told by your health care provider. Ask your health care provider if the medicine prescribed to you: ?Requires you to avoid driving or using machinery. ?Can cause constipation. You may need to take these actions to prevent or treat constipation: ?Drink enough fluid to keep your urine pale yellow. ?Take qepb-zdx-nywujge or prescription medicines. ?Eat foods that are [...] provider. Document Revised: 12/16/2020 Document Reviewed: 12/16/2020 Dem[employer] Patient Education 2023 [employer]. Follow Up Care 02/02/2025 18:31:47 With:German Link Address: [address] [place], [place] [id number]- Business (1) When:02/05/2025 19:39:38 [facility] 05-11-2025 NoteED Patient Education Note [...] for lung collapse and pneumonia. ??? Medicines. Wjxu-aml-vbosndb or prescription medicines may be given to control pain. ??? Injection of a numbing medicine around the nerve near your injury (nerve block). Follow these instructions at home: Medicines ??? Take qcra-luq-zqjweid and prescription medicines only as told by your health care provider. ??? Ask your health care provider if the medicine prescribed to you: ? Requires you to avoid driving or using machinery. ? Can cause constipation. You may need to take these actions to prevent or treat constipation: ? Drink enough fluid to keep your urine pale yellow. ? Take mlcl-ekl-iovljwr or prescription medicines. ? Eat foods that [...] Revised: 12/16/2020 Document Rev (more content not included)...[facility]05-11-2025 Evaluation + Plan noteExtracted from:Title:ED NoteAuthor:Mason [...] day(s), # 20 tab(s), Refills(s) 0, Pharmacy: [facility]/pharmacy #[id number], 149, cm, 02/02/25 18:37:00 EDT, Height/Length Dosing, 65, kg, 02/02/25 18:37:00 EDT, Weight Dosing triamcinolone, 40 mg = 1 mL, Susp-Inj, IntraMuscular, Once, Stop date 02/02/25 19:38:00 EDT, STAT, Start date 02/02/25 19:38:00 EDT, 02/02/25 19:38:00 EDT XR Ribs Unilat 3 Views Left w/ PA [facility] [id number] Telephone encounter Note* Telephone Encounter - Georgie Rodríguez NP - 11/17/2024 2:32 PM EST HR OOO, [id number] Miscellaneous Notes* Telephone Encounter - Georgie Rodríguez NP - 11/17/2024 2:32 PM EST HR OOO, rx sent. documented in this encounterSSM DePaul Health [id number] NoteUTP CARDIOLOGY PROGRESS NOTE HPI: Nathaniel Marcial [...] in cardiology clinic [facility] Hospital Discharge instructions Patient Education 11/26/2023 20:23:06 Contusion, Thro-gy-Pnji Contusion A contusion is a deep bruise. [...] sitting or lying down. General instructions Take kijs-ets-zoqnyss and prescription medicines only as told by [...] is also called RICE. Youmay be given nfrz-dcb-ndzazqa medicines for pain. Contact a doctor if [...] provider. Document Revised: 07/07/2022 Document Reviewed: 07/07/2022 Demeure Patient Education 2022 [employer]. Follow Up Care 11/26/2023 19:41:00 With:Caorl DESHPANDE, Gracy Graff Address: [address] [address]- When:11/29/2023 [facility]03-03-2024 Evaluation + Plan noteExtracted from: Title:ED NoteAuthor:Jessica Bush PA-CDate:11/26/23 1. Contusion of toe, left (S 90.122A: Contusion of left lesser toe(s) without damage to nail, initial encounter) Orders: XR Foot 3+ Views Left [facility]01-19-2024 Hospital Discharge instructions Patient Education 10/13/2023 18:55:44 Abdominal Pain, Adult, Ozam-ej-Omhr Abdominal Pain, Adult Many things can cause belly (abdominal) pain. Most times, belly pain is not dangerous. Many cases of belly pain can be watched and treated at home. Sometimes, though, belly pain is serious. Your doctor will try to find the cause of your belly pain. Follow these instructions at home: Medicines Take bodb-yqe-vlsdqez and prescription medicines only as told by [...] your belly pain for any changes. Take puvl-wps-nejcjxf and prescription medicines only as told by [...] provider. Document Revised: 01/20/2020 Document Reviewed: 01/20/2020 [employer]ure Patient Education 2022 [employer]. 10/13/2023 18:55:44 Constipation, Adult Constipation, Adult Constipation [...] as fried or sweet foods. These include bahamian fries, hamburgers, cookies, candies, and soda. Drink enough fluid to keep your urine pale yellow. General instructions Exercise regularly or as told by your health care provider. Try to do 150 minutes of moderate exercise each week. Use the bathroom when you have the urge to go. Do not hold it in. Take cjjw-pvi-peobssg and prescription medicines only as told by [...] to keep your urine pale yellow. Take zpnk-yoe-excxlxm and prescription medicines only as told by your health care provider. This includes any fiber supplements. This information is not intended to replace advice given to you by your health care provider. Make sure you discuss any questions you have with your health care provider. Document Revised: 07/29/2020 Document Reviewed: 07/29/2020 Demeure Patient Education 2022 [employer] Follow Up Care 10/13/2023 15:41:06 With:Gracy Medina Address: [address] [place] [address]- Business (1) When:10/16/2023 18:37:35 Comments:Follow-up with your primary care provider in 3 to 5 days. If symptoms worsen, do not improve, or new symptoms arise please report back to emergency department for further evaluation. [facility]12-06-2023 Evaluation + Plan note Diagnostic Tests Pending * Clostridium difficile by PCR 08/30/23 [facility]08-17-2023 Miscellaneous Notes* Telephone Encounter - [...] today. documented in this encounterMer[facility] Miscellaneous Notes* Telephone Encounter - Vinita Crabtree - 05/11/2023 10:34 AM EDT Left VM and sent Kneo[employer] message to patient to see if she wants to schedule shoulder surgery with Dr. Myers on 05/18. Waiting for call back documented in this encounterMer[facility] St. [facility]07-17-2023 NoteHNO ID: [id number] Author: Sharita Myers MD Service: ? Author [...] As you know she is a 47-year-old kmzs-ffkj-qbbxzpnn female with complaints in her shoulder that [...] strength with resisted ex (more content not included)...[facility]07-17-2023 NoteHNO ID: [id number] Author: RT Aleida(R) Service: Radiology Author Type: [...] BY: RT Slim(R) April 10, 2023 12:25 PMFloating [facility]07-17-2023 History of Present illness Narrative* Sharita Myers [...] As you know she is a 47-year-old xifb-obxw-tbhoijzk female with complaints in her shoulder that [...] PAGER: documented in this encounterMercy Health St. [facility]07-06-2023 NoteHNO ID: [id number] Author: Corry Conroy Service: ? Author Type: [...] Signature: Corry Conroy March 30, 2023 2:00 [facility]07-06-2023 NotePatient Outreach (NETNAV) NATHANIEL MARCIAL ([id number]) 1975 F Date Time Provider Department 03/30/23 [...] gangr*07/08/2021 Encounter Status:Closed by CORRY LIN on 03/30/23[facility]07-06-[facility]23 History of Present illness Narrative* Corry [...] PM documented in this encounterMercy Health St. [facility]07-06-2023 NoteHNO ID: [id number] Author: Verónica Duarte PA-C Service: ? Author Type: Physician Devulcanizer Tender Type: Progress Notes Filed: 03/30/2023 12:43 PM [...] seen Dr. Nate Gavin with [facility] in [place] and ordered a MRI of her shoulder [...] belly press test. Positive speeds test. Positive [place]'s test. Positive impingement signs. Positive Neer sign. Neurovascular intact distally with 2+ radial pulses bilaterally. Last XR Shoulder - Impression Only No resulted procedures found. X-rays right shoulder 01/19/23: AVN right hum (more content not included)... [facility]07-06-2023 Instructions* Patient Instructions* Verónica Duarte PA-C - 03/30/2023 11:38 AM EDT [address] Alvarez Dr. [phone] ([place]) PT: [phone] documented in this encounterMercy Health St. [facility]07-06-2023 History of Present illness Narrative* Verónica [...] seen Dr. Nate Gavin with [facility] in [place] and ordereda MRI of her shoulder from [...] belly press test. Positive speeds test. Positive [place]'s test. Positive impingement signs. Positive Neer sign. [...] R glenohumeral Informed Consent Consent Obtained: Verbal Pierce Protocol A moment to CARE was completed. [...] information obtained and documented by the physician surgical physician assistant. I examined the patient and evaluated all available films and pertinent documents. We discussed the case and I agree withthe plans as outlined in this note. SIGNATURE: Verónica Duarte PA-C PATIENT NAME: Nathaniel Marcial DATE: March 30, 2023 TIME: 11:13 AM documented in this encounterMercy Health St. [facility]07-03-2023 NoteHNO ID: [id number] Author: Aureliano Vann DPM Service: ? Author [...] with the patient. - (more content not included)...[facility]07-03-2023 Instructions* Patient Instructions* Aureliano Vann DPM - 03/27/2023 1:47 PM EDT Please schedule PVR (blood flow) [phone] documented in [address]Mer[facility] St. [facility]07-03-2023 NoteHNO ID: [id number] Author: Jevon Lemons Service: ? Author Type: Metal Smelter Type: Progress Notes Filed: 03/27/2023 12:28 PM [...] BY: Jevon Lemons March 27, 2023 12:28 [facility]07-03-2023 History of Present illness Narrative* Aureliano [...] Instructions: Re: Nathaniel Marcial : 1975 To [employer] The above [...] contact them, they can be reached at [phone]. For Brock appointments: [phone]. Order Specific Question: Does consulting provider have [...] PM documented in this encounterMercy Health St. [facility]07-03-2023 History of Present illness Narrative* Jevon [...] PM documented in this encounterMercy [facility] St. [facility]05-09-2023 Hospital Discharge instructions Patient Education 01/31/2023 [...] or salas your foot. General instructions Take vsgz-waw-fbijeua and prescription medicines only as told by [...] provider. Document Revised: 01/01/2021 Document Reviewed: 01/01/2021 Demeure Patient Education 2022 [employer]. Follow Up Care 01/31/2023 09:38:16 With:Nate Gavin Address: [address] [place] [address]- Business (1) When:02/03/2023 11:08:08 With:Gracy Medina Address: [address] [place] [address]- Business (1) When:02/03/2023 11:08:03 [facility]03-21-2023 Evaluation note* Encounter Date Diagnosis Assessment Notes Treatment Notes Treatment Clinical Notes Nov, Abdominal pain (ICD-10 - R10.9) [facility] Other 02-18-2023 Evaluation + Plan noteExtracted from:Title: [...] NPO Diet XR Ankle 3+ Views Left [facility]02-18-2023 Hospital Discharge instructions Patient Education 11/12/2022 09:42:18 [place] - Ankle Fracture Post Op (Custom) (Custom) [place], [place] [facility] DISCHARGE INSTRUCTIONS: ANKLE FRACTURE [...] office evaluation. Nate Gavin, DO [facility] [address] [place] [id number] Reviewed: 12-31 Follow Up Care 11/12/2022 06:46:16 With:Nate Gavin Address: [address] [place] [address]- Business (1) When:2 weeks [facility]11-03-2022 NoteHNO ID: [id number] Author: Ronan Cabello MD Service: ? Author [...] our notes. Patient consented for study? Not applicableGood [facility]aritan Hospital11-03-2022 NoteHNO ID: [id number] Author: Donna Donis Ms Service: ? Author Type: ? Type: Progress Notes Filed: 07/28/2022 1:17 PM Note Text: GENERAL SURGERY CLINIC NOTE Nathaniel Marcial [id number] HPI: Nathaniel Marcial is a 46 year [...] not recall but is following with a gore maker in 1 week. O: BP 125/89 Pulse [...] how to proceed. Donna Jewels Ms Jul 28[facility] History of Present illness Narrative* Ronan Cabello [...] EDT GENERAL SURGERY CLINIC NOTE Nathaniel Marcial [id number] HPI: Nathaniel Marcial is a 46 year [...] not recall but is following with a gore maker in 1 week. O: BP 125/89 Pulse [...] 2022 documented in [address] encounterMercy Health [facility]. [facility]11-03-2022 Nurse Note* Dalton Lee - 07/28/2022 [...] No documented in this encounterMercy Health St. [facility]08-10-2022 Evaluation note* Encounter Date Diagnosis Assessment Notes Treatment Notes Treatment Clinical Notes Apr, Irritable bowel syndrome with di arrhea (ICD-10 - K58.0) Apr,bdominal pain (ICD-10 - R10.9) Apr,iarrhea (ICD-10 - R19.7) Apr,loating (ICD-10 - R14.0) [facility] Other 07-07-2022 Hospital Discharge instructions Patient Education [...] exercise. Managing pain, stiffness, and swelling Take hvdd-nzu-nvohicw and prescription medicines only as told by [...] 09/11/2006 Document Revised: 08/24/2018 Document Reviewed: 10/11/2017 Demeure Patient Education 2020 [employer]. Follow Up Care 03/31/2022 12:02:20 With:Gracy Medina MD Address: [address] [place] [address]- When:04/03/2022 [facility]07-07-2022 Evaluation + Plan noteExtracted from: [...] w/CAD if perf and 3D Robert 04/20/22 [facility]04-09-2022 Hospital Discharge instructions Patient Education [...] is stable enough for you to begin copbx-wj-noyypc exercises. You may also be prescribed pain [...] provider says that it is safe. Do tckbe-ya-ltyggq exercises only as told by your health [...] quitting, ask your health care provider. Take kjfl-ess-llxhzmm and prescription medicines only as told by your health care provider. Ask your health care provider if the medicine prescribed to you can cause constipation. You may need to take steps to prevent or treat constipation, such as: ?Drink enough fluid to keep your urine pale yellow. ?Take tipj-hza-sxkjgqi or prescription medicines. ?Eat foods that are [...] 12/18/2001 Document Revised: 05/13/2019 Document Reviewed: 05/13/2019 Demeure Patient Education [employer]. Follow Up Care 01/01/2022 16:44:18 With:Gale Truong Address: [address] [place] [phone] Business (1) When:01/04/2022 19:33:35 Comments:Wear the sling when you are up and around you can take it off at night when you are sleeping. Please follow-up with orthopedic surgery for further evaluation management. Please return to the ED for any new or worsening symptoms. With:Gracy Medina Address: [address] [facility] [place] [address]- Business (1) When:Within 3 Day(s) [facility]04-09-2022 Evaluation + Plan noteExtracted from: [...] 19:11:00 EDT, 01/01/22 19:11:00 EDT Sling Apply [facility] Future App[facility]ments Appointment Date:02/06/2023 09:00:00 AM Scheduled Provider: [facility] Humerus/Shoulder () Future Scheduled Tests Radiology* MRI Shoulder w/o Contrast Right 02/06/23 [facility] App[facility]ments Appointment Date:03/18/2025 05:00:00 PM Scheduled Provider:German Sheehan DO Location:[facility] Appointment Type: Open Future Scheduled Tests Radiology* XR Shoulder Complete Right 02/27/25 * XR Spine Cervical 4 or 5 Views 02/27/25 * XR Spine Lumbosacral Minimum 4 Views 02/27/25 * XR Spine Thoracic 3 Views 02/27/25 [facility] Evaluation + Plan note Future Appointments Appointment Date:05/02/2025 09:40:00 AM Scheduled Provider:German Sheehan DO Location:[facility] Appointment Type:FM Procedure Appointment Date:05/23/2025 11:00:00 AM Scheduled Provider:German Sheehan DO Location:[facility] Appointment Type:FM Open [facility] Evaluation + Plan note Future Appointments Appointment Date:05/23/2025 11:00:00 AM Scheduled Provider:German Sheehan DO Location:[facility] Appointment Type:FM Open Appointment Date:05/23/2025 11:00:00 AM Scheduled Provider: Location:[facility] Appointment Type:FM Medicare Wellness Initial [facility] Evaluation + Plan note Future Appointments Appointment Date:05/28/2025 02:00:00 PM Scheduled Provider:Beth Quinones MD Location:[facility] Appointment Type:BADH Screening Appointment Date:06/13/2025 02:00:00 PM Scheduled Provider:German Sheehan DO Location:[facility] Appointment Type: Open Appointment Date:05/20/2026 09:30:00 AM Scheduled Provider: Location:[facility] Appointment Type:FM Medicare Wellness Subsequent Future Scheduled Tests Laboratory* Comprehensive Metabolic Panel 05/23/25 * Lipid Panel 05/23/25 Radiology* BD Bone Density DEXA 05/23/25 * MA Mamm Screen w/CAD if perf and 3D Robert 05/23/25 [facility] Evaluation + Plan note Future Appointments Appointment Date:06/03/2025 08:15:00 PM Scheduled Provider: [facility] Appointment Type:LADLE FILLER Sleep Study PSG () Appointment Date:06/13/2025 02:00:00 PM Scheduled Provider:German Sheehan DO Location:[facility] Appointment Type: Open Appointment Date:07/02/2025 02:15:00 PM Scheduled Provider: [facility] Appointment Type:MA Screen (FT) Appointment Date:07/02/2025 02:30:00 PM Scheduled Provider: [facility] Appoint[facility] Type:BD Bone Density (FT) Appointment Date:05/20/2026 09:30:00 AM Scheduled Provider: Location:[facility] Appointment Type:FM Medicare Wellness Subsequent Future Scheduled Tests Laboratory* Comprehensive Metabolic Panel 05/23/25 * Lipid Panel 05/23/25 Radiology* BD Bone Density DEXA 07/02/25 * MA Mamm Screen w/CAD if perf and 3D Robert 07/02/25 [facility] Evaluation + Plan note Future Appointments Appointment Date:06/13/2025 02:00:00 PM Scheduled Provider:German Sheehan DO Location:[facility] Appointment Type:FM Open Appointment Date:07/02/2025 02:15:00 PM Scheduled Provider: Location:.MAMMOGRAM Appointment Type:MA Screen (FT) Appointment Date:07/02/2025 02:30:00 PM Scheduled Provider: Location:.BD Appointment Type:BD Bone Density (FT) Appointment Date:05/20/2026 09:30:00 AM Scheduled Provider: Location:[facility] Appointment Type: Medicare Wellness Subsequent Future Scheduled Tests Laboratory* Comprehensive Metabolic Panel 05/23/25 * Lipid Panel 05/23/25 Radiology* BD Bone Density DEXA 07/02/25 * MA Mamm Screen w/CAD if perf and 3D Robert 07/02/25 [facility] evaluation + Plan note Future Appointments Appointment Date:07/02/2025 02:15:00 PM Scheduled Provider: Location:.[facility]MO[facility] Appointment Type:MA Screen (FT) Appointment Date:07/02/2025 02:30:00 PM Scheduled Provider: Location:.BD Appointment Type:BD Bone Density (FT) Appointment Date:07/11/2025 11:20:00 AM Scheduled Provider:German Sheehan DO Location:[facility] Appointment Type: Open Appointment Date:05/20/2026 09:30:00 AM Scheduled Provider: Location:[facility] Appointment Type:FM Medicare Wellness Subsequent Future Scheduled Tests Laboratory* Comprehensive Metabolic Panel 05/23/25 * Lipid Panel 05/23/25 Radiology* BD Bone Density DEXA 07/02/25 * MA Mamm Screen w/CAD if perf and 3D Robert 07/02/25 [facility] evaluation + Plan note Future Appointments Appointment Date:07/02/2025 02:15:00 PM Scheduled Provider: Location:.M[facility]MOGRAM Appointment Type:MA Screen (FT) Appointment Date:07/02/2025 02:30:00 PM Scheduled Provider: Location:.BD Appointment Type:BD Bone Density (FT) Appointment Date:07/11/2025 11:20:00 AM Scheduled Provider:German Sheehan DO Location:[facility] Appointment Type: Open Appointment Date:05/20/2026 09:30:00 AM Scheduled Provider: Location:[facility] Appointment Type:FM Medicare Wellness Subsequent Future Scheduled Tests Laboratory* Basic Metabolic Panel 06/28/25 * Comprehensive Metabolic Panel 05/23/25 Radiology* Echo w/ Saline Bubbles 06/28/25 * BD Bone Density DEXA 07/02/25 * MRI Brain w/o Contrast 06/28/25 * MA Mamm Screen w/CAD if perf and 3D Robert 07/02/25 [facility] Evaluation + Plan note Future Appointments Appointment Date:07/31/2025 09:30:00 AM Scheduled Provider:Vesna Mckay MD [facility] Type:Pulmonary New Patient (FT) Appointment Date:08/11/2025 01:00:00 PM Scheduled Provider:German Sheehan DO Location:[facility] Appointment Type: Procedure Appointment Date:05/20/2026 09:30:00 AM Scheduled Provider: Location:[facility] Appointment Type:FM Medicare Wellness Subsequent Future Scheduled Tests Laboratory* Basic Metabolic Panel 06/28/25 * Comprehensive Metabolic Panel 05/23/25 Radiology* Echo w/ Saline Bubbles 06/28/25 * MRI Brain w/o Contrast 06/28/25 [facility] evaluation note* Diagnosis Incisional hernia, without obstruction or gangrene- Primary Incisional hernia without mention of obstruction or gangrene 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 Diagnosis Pain Generalized pain [facility]* Diagnosis 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)- Primary Incomplete tear of right rotator cuff, unspecified whether traumatic Biceps tendonitis on right [facility]* Diagnosis 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)- Primary [facility]* Diagnosis Other osteoporosis without current pathological fracture (CMS/HCC) documented in this encounter [facility]* Diagnosis Other constipation Generalized abdominal pain Abdominal pain, generalized documented in this encounter [facility]* Diagnosis C. difficile enteritis- Primary Intestinal infection due to clostridium difficile documented in this encounter [facility] Narrative - Reported* Type Description Date Medical History bipolar Medical HistoryasthmaMedical HistoryGERDMedical HistoryIBSSurgical HistoryC section-2XSurgical HistoryC-section x 2Surgical HistorylaparoscopySurgical HistoryappendectomySurgical Historyhernia-10XSurgical Historymultiple hernia repairsSurgical HistoryhysterectomySurgical HistorybackSurgical Historyback surgeryHospitalization Historysee above Embue Other Hospital course Narrative No data available for this section [facility] Dis[facility] instructions No data available for this section [facility] No data available for this section [facility] ([facility])* Diagnostic Procedure Only (Routine) - AuthorizedSpecialtyDiagnoses / ProceduresReferred By ContactReferred To ContactXR IMAGING Diagnoses Pain Procedures XR ANKLE GENERAL 3V AP/LAT/OBL LEFT RADEX ANKLE COMPLETE MINIMUM 3 VIEWS Aureliano Vann DPM [address] [place] [address] Xr Imaging Referral IDStatusReB[facility] DateExpiration DateVisits RequestedVisits [id number] Auto-Generated Referral / [facility] for referral (narrative)* Outpatient Procedure (Routine) - Pending ReviewSpecialtyDiagnoses / ProceduresReferred By ContactReferred To [facility] Diagnoses PAD (peripheral artery disease) (HCC) Procedures PVR LEG UNL VAS LAB NON-INVASIVE PHYSIOLOGIC STUDY EXTREMITY 3 LEVLS Aureliano Vann DPM [address] [address] [facility] [place] [address] [place] [address] Referral IDStatusReasonYarnell DateExpiration DateVisits RequestedVisits [id number] Auto-Generated Referral * Consult, Test, Treat (Routine) - AuthorizedSpecialtyDiagnoses / Procedures Referred By ContactReferred To ContactPain Management Diagnoses 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, subsequent encounter Allodynia Procedures CONSULT TO PAIN MGT OFFICE/OUTPATIENT [facility] 60-74 MINUTES Aureliano Vann DPM [address] [place] [address] Referral [facility]StatFair[facility] DateExpiration DateVisits RequestedVisits [id number] PCP Requested Referral [facility] for referral (narrative)* Diagnostic Procedure Only (Routine) - ClosedSpecialtyDiagnoses / ProceduresReferred By ContactReferred To ContactXR IMAGING Diagnoses Pain Procedures XR ANKLE GENERAL 3V AP/LAT/OBL LEFT RADEX ANKLE COMPLETE MINIMUM 3 VIEWS Aureliano Vann DPM [address] [place] [address] Xr Imaging Referral IDStatFairfield Medical Center DateExpiration DateVisits RequestedVisits [id number] Auto-Generated Referral [facility] for referral (narrative)* Diagnostic Procedure Only (Routine) - ClosedSpecialtyDiagnoses / ProceduresReferred By ContactReferred To ContactXR IMAGING Diagnoses 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) Procedures XR SHOULDER GENERAL 3V OR MORE AP/TRUE AP/OTHER RIGHT RADEX SHOULDER COMPLETE MINIMUM 2 VIEWS Sharita Myers MD [address] [id number] Xr Imaging Referral IDStatusReasonStart DateExpiration DateVisits RequestedVisits [id number] Auto-Generated Referral / [facility] for visit Narrative* Diagnostic Procedure Only (Routine) - ClosedSpecialtyDiagnoses / ProceduresReferred By ContactReferred To Contact XR IMAGING Diagnoses Pain Procedures XR ANKLE GENERAL 3V AP/LAT/OBL LEFT RADEX ANKLE COMPLETE MINIMUM 3 VIEWS Aureliano Vann, NELDA [address] [place] [address] Xr Imaging Referral IDStatusReasonStart DateExpiration DateVisits RequestedVisits [id number] Auto-Generated Referral / [facility] Summary Purpose Family History No Family [...] MINS Verónica Duarte PA-C [address] [place] [address] [facility] [place] [address] [place] [address] Referral IDStatusReasonStart DateExpiration DateVisits RequestedVisits [id number] PCP Requested Referral Auto-Generated Referral [id number] Medications [...] DATE CREATED AUTHOR 03/30/2018 [facility] DATE CREATED AUTHOR AUTHOR'S ORGANIZ ATION 01/20/2023 [facility] DATE CREATED AUTHOR AUTHOR'S ORGANIZ ATION 03/03/2023 [facility] DATE CREATED AUTHOR AUTHOR'S ORGANIZ ATION 04/14/2023 [facility] DATE CREATED AUTHOR AUTHOR'S ORGANIZ ATION 05/18/2023 [facility] DATE CREATED AUTHOR AUTHOR'S ORGANIZ ATION 10/18/2023 [facility] DATE CREATED AUTHOR AUTHOR'S ORGANIZ ATION 04/17/2025 [facility] DATE CREATED AUTHOR AUTHOR'S ORGANIZ ATION 04/29/2025 [facility] DATE CREATED AUTHOR AUTHOR'S ORGANIZ ATION 06/08/2025 [facility] DATE CREATED AUTHOR AUTHOR'S ORGANIZ ATION 06/18/2025 [facility] DATE CREATED AUTHOR AUTHOR'S ORGANIZ ATION 06/28/2025 [facility] DATE CREATED AUTHOR AUTHOR'S ORGANIZ ATION 06/29/2025 [facility] DATE CREATED AUTHOR AUTHOR'S ORGANIZ ATION 06/30/2025 [facility] DATE CREATED AUTHOR AUTHOR'S ORGANIZ ATION 07/01/2025 [facility] DATE CREATED AUTHOR AUTHOR'S ORGANIZ ATION 07/13/2025 [facility] DATE CREATED AUTHOR AUTHOR'S ORGANIZ ATION 07/26/2025 [facility] DATE CREATED AUTHOR AUTHOR'S ORGANIZ ATION 08/08/2025 [facility] Care Team (unrecognized sect ion and content) Team MemberRelationshipSpecialtyStart DateEnd Date Gracy Medina MD [address] [place] [address] PCP - [facility] Medicine04/11/21Team MemberRelationshipSpecialtyStart DateEnd Date Gracy Medina MD [address] [place] [address] PCP - [facility]04/11/21 Gracy Medina MD [address] [place] [address] [facility]erring[facility] Medicine03/07/23Te MemberRelationshipSpecialtyStart DateEnd Date Gracy Medina MD [address] [place] [address] PCP - [facility]04/11/21 Gracy Medina MD [address] [place] [address] [facility]erringSt[facility]03/07/23Te MemberRelationshipSpecialtyStart DateEnd Date Gracy Medina MD [address] [place] [address] PCP - [facility]04/11/21 Gracy Medina MD [address] [place] [address] [facility]03/07/23Te MemberRelationshipSpecialtyStart DateEnd Date Gracy Medina MD [address] [place] [address] PCP - [facility]04/11/21 Gracy Medina MD [address] [place] [address] [facility]03/07/23Te MemberRelationshipSpecialtyStart DateEnd Date Gracy Medina MD [address] [place] [address] PCP - [facility]04/11/21 Gracy Medina MD [address] [place] [address] [facility]erringSt. [facility]03/07/23Te MemberRelationshipSpecialtyStart DateEnd Date Gracy Medina MD [address] [place] [address] PCP - GeneralFamily Medicine04/11/21 Gracy Medina MD [address] [place] [address] ReferringFamily Medicine03/07/23Team MemberRelationshipSpecialtyStart DateEnd Date Gracy Medina MD [address] [place] [address] PCP - [facility]02/16/23 Unallocated, Jeremías Spann MD [address] [place] [address] PCP - [facility]06/26/24Team MemberRelationshipSpecialtyStart DateEnd Gracy Medina MD [address] [place] [address] PCP - [facility]02/16/23 Unallocated, Jeremías Spann MD [address] [place] [address] PCP - [facility]06/26/24Team MemberRelationshipSpecialtyStart DateEnd Date Gracy Medina MD [address] [place] [address] [facility]CP - [facility]04/11/21 Gracy Medina MD [address] [place] [address] ReferringFamily Medicine03/07/23 German Sheehan DO [address] [address] [place] [address] [facility]03/04/25Team MemberRelationshipSpecialtyStart DateEnd Date Gracy Medina MD [address] [place] [address] PCP - [facility]02/14/2310 Gracy Medina MD [address] [place] [address] PCP - [facility]02/16/23 UnalJeremías martinez MD [address] [place] [address] PCP - [facility]06/26/24Team MemberRelationshipSpecialtyStart DateEnd Date Gracy Medina MD [address] [place] [address] PCP - [facility]02/14/2310 Gracy Medina MD [address] [place] [address] PCP - [facility]02/16/23 UnalelizacatJeremías azar MD [address] [place] [address] PCP - [facility]06/26/24 REASON FOR VISIT (unrecogniz ed section [...] alcohol or drug abuse patient.[facility] HospitalIn the event this information is protected by the Federal Confidentiality of Alcohol and Drug Abuse Patient Records regulations: The Federal rules restrict any use of the information to criminally investigate or prosecute any alcohol or drug abuse patient.[facility] HospitalIn the event this information is protected by the Federal Confidentiality of Alcohol and Drug Abuse Patient Records regulations: The Federal rules restrict any use of the information to criminally investigate or prosecute any alcohol or drug abuse patient.[facility] HospitalIn the event this information is protected by the Federal Confidentiality of Alcohol and Drug Abuse Patient Records regulations: The Federal rules restrict any use of the information to criminally investigate or prosecute any alcohol or drug abuse patient.[facility] HospitalIn the event this information is protected by the Federal Confidentiality of Alcohol and Drug Abuse Patient Records regulations: The Federal rules restrict any use of the information to criminally investigate or prosecute any alcohol or drug abuse patient.[facility] HospitalIn the event this information is protected by the Federal Confidentiality of Alcohol and Drug Abuse Patient Records regulations: The Federal rules restrict any use of the information to criminally investigate or prosecute any alcohol or drug abuse patient.[facility] HospitalIn the event this information is protected by the Federal Confidentiality of Alcohol and Drug Abuse Patient Records regulations: The Federal rules restrict any use of the information to criminally investigate or prosecute any alcohol or drug abuse patient.[facility] HospitalIn the event this information is protected by the Federal Confidentiality of Alcohol and Drug Abuse Patient Records regulations: The Federal rules restrict any use of the information to criminally investigate or prosecute any alcohol or drug abuse patient.[facility] HospitalIn the event this information is protected by the Federal Confidentiality of Alcohol and Drug Abuse Patient Records regulations: The Federal rules restrict any use of the information to criminally investigate or prosecute any alcohol or drug abuse patient.[facility] HospitalIn the event this information is protected by the Federal Confidentiality of Alcohol and Drug Abuse Patient Records regulations: The Federal rules restrict any use of the information to criminally investigate or prosecute any alcohol or drug abuse patient.[facility] FOR RECORDS PERTAINING TO PATIENTS WHO [...] BE BASED ON THE PRIMARY CLINICAL RECORDS. [facility] [employer] [facility]. provides no warranty or guarantee of the accuracy or completeness of information in this document.
== END 2025-08-26 12:40 | disposition home or self-care (01) ==
LOC: ER 12:07
PROVIDERS: Emergency Provider Emergency Medicine; PCP Family Medicine
DX: H11.422 Conjunctival edema, left eye (principal); F17.210 Nicotine dependence, cigarettes, uncomplicated
CPT/HCPCS: 99283